=== PATIENT | female | born 1970 | race Caucasian/White ===

== ENCOUNTER → 2018-01-14 13:58 | Outpatient (CLI) | payer BC, SELFPAY ==
[2018-01-14 16:09] LABS: Valproic Acid (Depakene) Level 83 ug/mL (50-100)
== END ==
PROVIDERS: Family Provider Family Medicine; PCP Family Medicine
DX: F31.60 Bipolar disorder, current episode mixed, unspecified (principal)
CPT/HCPCS: 36415; 80164

== ENCOUNTER 2018-01-17 16:55 | Emergency (ER) | payer BC, SELFPAY ==
[2018-01-17 16:56] VITALS: BP 137/78; PULSE 87; RESP 18; TEMP 36.2; O2SAT 100; BMI 21.7
--- NOTE | 2018-01-17 17:12 | ED.DCSUM_ITS ---
- ER Visit Summary Date of Service: 01/17/18 Chief Complaint: Headache History of Present Illness: The patient is a 47 F who has had 2 days of a headache. She describes pain throughout her head. Similar to prior headaches. She does have a history of chronic headaches. She has had some nausea with some sinus pressure. She denies any trauma. No visual changes. She took diclofenac and Aleve at home without relief. She denies a fever. Physical Examination: Vital signs reviewed. HEENT exam unremarkable. Heart is regular rate and rhythm without murmurs. Lungs are clear to auscultation. Abdomen is soft and nontender. Extremities reveal no edema. Skin exam normal. Neurologic exam normal. Test Results: Patient was given Compazine, Benadryl and IV fluids. Upon reevaluation she feels much better. Patient will be discharged home with a prescription for Mucinex D to help with her sinuses. She will continue her home medications and will follow up with her PCP Emergency Department Course and Treatment: [] Treatment Plan: [] Disposition: Discharge Impression: Headache This note was generated with [employer] dictation software. It may contain incorrect words, spelling, and punctuation that were not noted in review of the chart prior to signing ED Disposition - Plan for ED Patient: Chief Complaint: Headache Referrals: Sumanth Bush MD [Primary Care Provider] -
[2018-01-17] MEDS: proCHLORPERazine 10 MG/2 ML Vial IV (17:24)
[2018-01-17] MEDS: DiphenhydrAMINE 50 MG/ML Syringe 25 MG IV (17:24)
[2018-01-17] MEDS: 0.9% Normal Saline 1,000 ML 999 ML IV (17:24)
--- NOTE | 2018-01-17 18:11 | ED.DEP ---
ED Disposition - Plan for ED Patient: Disposition: Home or Assisted Living Chief Complaint: Headache Instructions: ED Headache Migraine Prescriptions: Guaifenesin/Pseudoephedrne HCl [Mucinex D ER 1,200-120 mg Tab] 1 ea PO BID #14 [id number] Referrals: Sumanth Bush MD [Primary Care Provider] -
[2018-01-17 18:25] VITALS: BP 129/74; PULSE 71; RESP 15; O2SAT 100
== END 2018-01-17 18:27 | disposition home or self-care (01) ==
PROVIDERS: Emergency Provider Emergency Medicine; Family Provider Family Medicine; PCP Family Medicine
DX: R51 Headache (principal); G89.29 Other chronic pain; R11.0 Nausea; Z79.899 Other long term (current) drug therapy
CPT/HCPCS: 96361; 96374; 96375; 99283; J7030; A4216

== ENCOUNTER → 2018-08-03 10:49 | Outpatient (CLI) | payer BC, SELFPAY ==
--- NOTE | 2018-08-03 | BRBX_PTH ---
PATIENT: GISELA TURNER LOC: [facility] U#:[id number] AGE/SX: 55/F ROOM: RE08/03/[address]: Dr. Lizzy High MD : 1970 BED: DIS: SPEC #: [id number] RECD: 08/03/18 14:26 STATUS: PEG CANDIDA #: [id number] JOSAFAT: 08/03/18 00:[address]: Lizzy High DEPT: SURGICAL PATHOLOGY RECD BY: Prosper Quiles ENTERED: 08/03/18 14:27 SP TYPE: BREAST BX OT DR: Dr. Sumanth Bush MD Tissues: Right breast, NOS Procedures: Surgery Specimen Level IV HEADER OPERATION: Right breast stereotactic biopsy PRE-OP DIAGNOSIS: Right breast calcifications central to nipple post depth TISSUE SUBMITTED: Right breast core tissue ISCHEMIC TIME: 2 minutes FIXATION TIME: 7.5 hours MICROSCOPIC DIAGNOSIS Right breast, needle core biopsy: Mild fibrocystic change and focal secretory change. Focal intraductal hyperplasia without atypia. Banal microcalcifications. No evidence of malignancy. AM:mickey 08/04/18 COMMENT Case has been reviewed in consultation with Dr. Rivera who concurs with the above diagnosis. IDC:[email or web address] MICROSCOPIC DESCRIPTION Slides are reviewed. GROSS DESCRIPTION Received is one container labeled with the patient's name and not further designated. The specimen consists of multiple elongated fragments of silveira-yellow fibroadipose tissue that in aggregate measure 5 x 3 x 0.3 cm. The entire specimen is submitted in two cassettes. / RAIMUNDO:mickey 08/03/18 TC:5 CPT:94628
--- NOTE | 2018-08-03 13:54 | OP.PCM_ITS ---
Report of Operation Date of Procedure: 08/03/18 Pre-Operative Diagnosis: abnormal calcifications of right breast mammograms Post-Operative Diagnosis: same Surgery/Procedure Performed:: right stereotactic breast biopsy Description of Surgical Findings:: right breast abnormal calcifications - centrally Type of Anesthesia:: Local - 1% xylocaine Specimen's removed: right breast tissue Estimated Blood Loss (mL): minimal Fluids Replaced: none Description of Procedure: After informed consent was given, the patient was brought into the breast biopsy suite. Appropriate time out protocol was followed. She was then placed in the prone position on the stereotactic biopsy table. The patient?s right breast was then placed at the opening at the head of the table. A process control technician compression mammogram was then obtained. The area of abnormal calcifications was then identified. Stereo pictures of the lesion were then taken for XYZ coordinates. The Mammotome biopsy stylus was then positioned where it would be entering into the patient?s breast. The skin at this site was then cleansed with a surgical skin preparation. The skin and subcutaneous tissues at this site were then infiltrated with 1% xylocaine. A small skin incision was made with an 11 blade scalpel. The biopsy stylus was then positioned into the patient?s breast at the proper coordinates of depth. Using the Mammotome vacuum -assist device, several core samples of breast tissue were obtained. A specimen mammogram was the obtained and revealed that the calcifications were within the specimen. A hemostatic marker clip was then placed into the biopsy cavity and a process control technician film revealed that it was properly deployed. The patient was then placed in the supine position and pressure was applied to the breast until no active bleeding was noted. A nylon suture was placed reapproximate the skin. A unilateral mammogram in the CC and MLO view were then taken which revealed that the marker clip was in the same area as the previous suspicious lesion. The patient tolerated the procedure well and was discharged from the breast biopsy suite in good condition. - Complications none noted
== END ==
PROVIDERS: Family Provider Family Medicine; PCP Family Medicine; Visit Provider Surgery
DX: N60.11 Diffuse cystic mastopathy of right breast (principal); N60.91 Unspecified benign mammary dysplasia of right breast; F31.9 Bipolar disorder, unspecified; F32.9 Major depressive disorder, single episode, unspecified; G43.909 Migraine, unspecified, not intractable, without status migrainosus; Z87.19 Personal history of other diseases of the digestive system; Z90.49 Acquired absence of other specified parts of digestive tract; Z79.899 Other long term (current) drug therapy
CPT/HCPCS: 19081; 88305; J7050; A4648

== ENCOUNTER → 2018-08-21 13:09 | Outpatient (CLI) | payer BC, SELFPAY ==
[2018-08-21 14:36] LABS: Hematocrit 41.2 % (37-47); Hemoglobin 13.4 g/dl (12.0-15.0); Mean Corp Hgb Conc 32.5 g/gl (32-36); Mean Corpuscular Hgb 29.1 pg (27.0-32.0); Mean Corpuscular Volume 89.6 fL (81-99); Mean Platelet Vol. 8.8 fl (6.2-12.0); Platelet Count 245 K/mm3 (150-450); RBC Distribution Width CV 12.7 % (11.6-14.6); White Blood Count 4.9 K/mm3 (4.4-11.0)
[2018-08-21 14:38] LABS: Scan Indicated on CBC? Y/N NO
[2018-08-21 15:02] LABS: Valproic Acid (Depakene) Level 60 ug/mL (50-100)
[2018-08-21 15:13] LABS: ALB/GLOB Ratio 0.7 RATIO (0.9-2.4); AST(SGOT) 12 U/L (15-37); Alanine Aminotransfer ALT/SGPT 17 U/L (13-56); Albumin, Serum 3.3 g/dL (3.2-5.0); Alkaline Phosphatase 80 U/L (45-117); Anion Gap 6 (5-15); BUN 15 mg/dL (7-18); BUN/Creat Ratio 17.7 RATIO (10-20); Calcium,Total 8.2 mg/dL (8.5-10.1); Chloride 100 mmol/L (98-107); Cholesterol 221 mg/dL (200); Creatinine, Serum 0.85 mg/dL (0.55-1.02); EST Glomerular Filtration Rate 76 mL/min (>60); Est Glom Filt Rate - Afr Amer 92 mL/min (>60); Globulin 4.5 g/dL (2.2-4.2); Glucose 78 mg/dL (74-106); High Density Lipoprotein 96 mg/dL; Protein, Total 7.8 g/dL (6.4-8.2); Sodium Level 137 mmol/L (136-145); Thyroid Stim Hormone (TSH) 0.82 uIU/mL (0.358-3.74); Triglycerides 78 mg/dL; Very Low Density Lipoprotein 16 mg/dL (5-40)
== END ==
PROVIDERS: Family Provider Family Medicine; PCP Family Medicine
DX: R69 Illness, unspecified (principal)
CPT/HCPCS: 36415; 80053; 80061; 80164; 84443; 85027

== ENCOUNTER 2018-10-07 06:43 | Observation (INO) | payer BC, SELFPAY ==
[2018-10-07] VITALS (10 sets, daily range): BP systolic 118–131; BP diastolic 78–88; PULSE 81–98; RESP 11–17; TEMP 36.8–36.9; O2SAT 96–100; BMI 24.1; BMI 24.2
--- NOTE | 2018-10-07 07:35 | EKG12_ITS ---
Test Reason : DYSRHYTHMIA Blood Pressure : / mmHG Vent. Rate : 089 BPM Atrial Rate : 089 BPM P-R Int : 176 ms QRS Dur : 078 ms QT Int : 358 ms P-R-T Axes : 074 058 071 degrees QTc Int : 435 ms Normal sinus rhythm Normal ECG Confirmed by PIPE HERNÁNDEZ, RACHEL ([id number]), video effects editor TRENT VARELA ([id number]) on 10/09/2018 12:00:22 PM Referred By: DEIDRA Confirmed By:RACHEL BETANCUR MD
--- NOTE | 2018-10-07 07:35 | CT_ITS ---
STUDY: CT BRAIN WITHOUT CONTRAST REASON FOR EXAM: Female, 48 years old. Dizziness. RADIATION DOSAGE (If Supplied By Facility): CTDIvol = ( 44.99 ) mGy, DLP = ( 762.36 ) mGycm TECHNIQUE: Transaxial CT imaging of the brain was performed without administration of intravenous contrast material. Individualized dose optimization techniques were used for this CT. COMPARISON: None. FINDINGS: Normal soft tissue structures. Normal calvarium. Normal size ventricles and extra-axial spaces for the patient's age. Normal white matter tracts of the cerebral hemispheres. Normal basal ganglia and thalami. Normal brainstem. Normal cerebellum. There is no intracranial hemorrhage. There are no findings of an acute ischemic infarction. Normal visualized paranasal sinuses. CT/Brain/Head without Contrast IMPRESSION: Normal unenhanced CT scan of the brain. Electronically Signed: Rishi Hunt MD at 8:21 EST Tel [phone], Service support ,
--- NOTE | 2018-10-07 07:47 | ED.DCSUM_ITS ---
- ER Visit Summary Date of Service: 10/07/18 Chief Complaint: [] Dizzy shaking all over this morning History of Present Illness: The patient is a 48 F [] depression denies any other past history reports she went to bed feeling fine woke this morning feeling dizzy spinning sensation, shaking all over. She denies fever cough head neck chest or abdominal pain could not walk this morning because of the above and her carried her around the home and finally brought her to the hospital, she has no history of AR PE DVT, no history of stroke or seizure she denies headache, her mental functioning is normal her speech is normal she is able to move all 4 extremities but she does have a diffuse tremor involving all 4 extremities and she denies being cold she has no infectious symptoms, no dysuria no cough no runny nose EKG missed her Depakote the other day because she ran out of the prescription b ut took it yesterday none of her medications are new and otherwise her general health condition social condition has all been stable Physical Examination: [] Patient is 130/80, her temperature is 98, her pulse ox is 99, General, no distress resting comfortably HEENT is generally unremarkable but there is no nystagmus no signs of dehydration The neck is supple no adenopathy Cardiovascular, regular rate and rhythm Lungs, clear bilateral Abdomen, soft nontender Extremities, no clubbing cyanosis or edema Neurologic, awake alert answering questions appropriately moving all 4 e xtremities, she has a very low amplitude diffuse tremor to all 4 extremities her speech is easy and understandable the cranial nerves are intact she is able to move all 4 extremities, her NIH is 0 Test Results: [] Emergency Department Course and Treatment: [] Given all of the above screening labs CT Ativan Lab tests and CAT scans all other tests are generally unremarkable please see those reports on reevaluation she is feeling better, she still has the tremor primarily in her upper extremities but the reports that the patient reports that that is normal for her to have a slight tremor to the upper extremities, she is feeling better we discussed inpatient versus outpatient management she wants to go home, we try to walk her to the bathroom she could not even walk to the door of her room without being very dizzy and requiring quite a bit of support she is put back in bed by nursing Treatment Plan: [] Disposion hospitalist evaluation Impression: [] Dizziness with inability to walk, etiology unclear resting tremor This note was generated with Dragon dictation software. It may contain incorrect words, spelling, and punctuation that were not noted in review of the chart prior to signing ED Disposition - Plan for ED Patient: Chief Complaint: Dizziness Instructions: ED Dizziness [facility] Referrals: Sumanth Bush MD [Primary Care Provider] -
[2018-10-07] MEDS: LORazepam 2 MG/ML Syringe 1 MG IV (07:49)
[2018-10-07 07:55] LABS: Absolute Lymphocyte Count 2.43 X10^3/ul (0.83-4.51); Absolute Neutrophil Count 2.4 X10^3/uL (2.0-7.7); Basophil# 0.04 X10^3/uL; Basophil% 0.7 % (0-1); Eosinophil# 0.09 X10^3/uL; Eosinophils% 1.7 % (0-5); Hemoglobin 12.9 g/dl (12.0-15.0); Lymphocyte # 2.43 X10^3/ul (4.0); Lymphocyte % 44.9 % (19-41); Mean Corp Hgb Conc 33.1 g/gl (32-36); Mean Corpuscular Hgb 29.4 pg (27.0-32.0); Mean Corpuscular Volume 88.8 fL (81-99); Mean Platelet Vol. 8.7 fl (6.2-12.0); Monocyte# 0.49 X10^3/uL; Monocyte% 9.1 % (0-10); Neutrophil # 2.36 X10^3/uL (2.7-7.7); Neutrophil % 43.6 % (47-70); Platelet Count 233 K/mm3 (150-450); RBC Distribution Width CV 12.4 % (11.6-14.6); RBC Distribution Width SD 39.9 fl (35.1-43.9); Red Blood Count 4.39 M/mm3 (4.2-5.4); White Blood Count 5.4 K/mm3 (4.4-11.0)
[2018-10-07 08:00] LABS: POSITIVE COUNT NO; POSITIVE DIFFERENTIAL NO; POSITIVE MORPHOLOGY NO
[2018-10-07 08:03] LABS: ALB/GLOB Ratio 0.8 RATIO (0.9-2.4); AST(SGOT) 14 U/L (15-37); Alanine Aminotransfer ALT/SGPT 18 U/L (13-56); Albumin, Serum 3.1 g/dL (3.2-5.0); Alkaline Phosphatase 67 U/L (45-117); Anion Gap 10 (5-15); BUN 15 mg/dL (7-18); BUN/Creat Ratio 20.2 RATIO (10-20); Calcium,Total 8.3 mg/dL (8.5-10.1); Chloride 102 mmol/L (98-107); Creatinine, Serum 0.74 mg/dL (0.55-1.02); EST Glomerular Filtration Rate 89 mL/min (>60); Est Glom Filt Rate - Afr Amer 108 mL/min (>60); Estimated Creatinine Clearance 76.91 ml/min; Globulin 4.1 g/dL (2.2-4.2); Glucose 85 mg/dL (74-106); Potassium 4.1 mmol/L (3.5-5.1); Protein, Total 7.2 g/dL (6.4-8.2); Sodium Level 140 mmol/L (136-145)
[2018-10-07 08:11] LABS: Valproic Acid (Depakene) Level 61 ug/mL (50-100)
--- NOTE | 2018-10-07 08:15 | RAD_ITS ---
STUDY: X-RAY CHEST REASON FOR EXAM: Female, 48 years old. Shortness of breath. Dizziness. TECHNIQUE: Single AP portable view of the chest. COMPARISON: None. FINDINGS: EKG electrodes are seen. The lungs are clear and expanded. Scattered calcified granulomas. There is no demonstrated pleural abnormality. Normal size heart. Normal mediastinum and isela. Normal visualized pulmonary arteries. Normal visualized aortic arch and descending thoracic aorta. Normal visualized thoracic spine. Normal visualized ribs, clavicles, and shoulders. There is no demonstrated abnormality of the visualized soft tissue structures of the upper abdomen. RAD/Chest 1 View (Portable) IMPRESSION: Normal x-ray examination of the chest. Electronically Signed: Rishi Hunt MD at 8:42 EST Tel [phone], Service support ,
[2018-10-07 08:57] LABS: Bacteria 0 SEEN /hpf (None Seen); Mucous, Urine 0 SEEN /hpf (<or=2+); Red Blood Cells-Urine 0 SEEN /hpf (0-5); Squamous Epithelial Cells - UA 0 SEEN /hpf (5-10); White Blood Cells 0 SEEN /hpf (0-5)
[2018-10-07 08:58] LABS: Color, Urine Yellow (Yellow); Glucose, Dipstick Normal (Normal); Ketone-Dipstick Negative (Negative); Leukocyte Esterase-Dipstick Negative /ul (Negative); Nitrite-Dipstick Negative (Negative); Occult Blood-Urine Negative /ul (Negative); Protein-Dipstick Negative (Negative); Urine Bilirubin Dipstick Negative (Negative); Urine Clarity Clear (Clear); Urine Urobilinogen Normal (Normal)
--- NOTE | 2018-10-07 12:04 | ED.DEP ---
ED Disposition - Plan for ED Patient: Chief Complaint: Dizziness Instructions: ED Dizziness [facility] Referrals: Sumanth Bush MD [Primary Care Provider] -
--- NOTE | 2018-10-07 12:20 | MRI_ITS ---
STUDY: MRI BRAIN WITHOUT CONTRAST REASON FOR EXAM: Female, 48 years old. Headache and tremor TECHNIQUE: Standardized multiplanar fat and water weighted pulse sequences were obtained. COMPARISON: November 02, 2013. CT of the brain on October 07, 2018 FINDINGS: Normal size of the ventricles and extra-axial spaces for the patient's age. Normal white matter tracts of the supratentorial brain. Normal bilateral basal ganglia. Normal thalami. There is no extra-axial fluid accumulation. Normal flow voids within the major intracranial circulation suggesting patency by spin echo criteria. Normal sella turcica, pituitary gland, infundibular stalk, optic chiasm and hypothalamus. Normal tectal plate and pineal gland. Normal midbrain, zahra and medulla. Normal cerebellum. Normal basal cisterns. Normal bilateral temporal bones. Normal bilateral internal auditory canals. No demonstrated orbital abnormality, within the constraints of a routine brain study. Normal visualized paranasal sinuses. Normal calvarium and skull base. Normal visualized soft tissue structures. Normal visualized upper cervical spine. MRI/Brain without Contrast IMPRESSION: Normal unenhanced MRI of the brain. Electronically Signed: Julio Woods MD at 16:32 EST , Service support ,
--- NOTE | 2018-10-07 12:22 | CT_ITS ---
STUDY: CTA OF THE BRAIN REASON FOR EXAM: Female, 48 years old. TIA. Dizziness. Vertigo. Headache. RADIATION DOSAGE (If Supplied By Facility): CTDIvol = ( 17.24 ) mGy, DLP = ( 626.77 ) mGycm TECHNIQUE: CT angiography was performed with a multi-detector CT scanner. Data acquisition was obtained from the skull base through the vertex following intravenous administration of 100 ml of Isovue-370. MIP images were reconstructed from the axial data set. Post-processing of the angiographic images was performed, with multiplanar reformation and 3D reconstruction. Individualized dose optimization techniques were used for this CT. COMPARISON: Noncontrast CT scan of the same day.. FINDINGS: Normal bilateral petrous carotid arteries. Normal right cavernous carotid artery with a normal supraclinoid bifurcation. Normal left cavernous carotid artery with a normal supraclinoid bifurcation. Normal right A1 segments of the anterior cerebral artery. Normal left A1 segments of the anterior cerebral artery. Normal intact anterior communicating artery (ACOM). Normal bilateral A2 segments of the anterior cerebral arteries. Normal right M1 and M2 segments of the middle cerebral arteries, with a normal M1 bifurcation. Normal left M1 and M2 segments of the middle cerebral arteries, with a normal M1 bifurcation. Normal right posterior communicating artery (PCOM). Normal left posterior communicating artery (PCOM). Normal bilateral vertebral arteries. Normal basilar artery with a normal basilar bifurcation. The visualized bilateral superior cerebellar (SCA) arteries are normal. Normal bilateral P1, P2 and visualized P3 segments of the posterior cerebral arteries. There is no demonstrated aneurysm of the [place]. There is no demonstrated abnormality of the visualized brain. IMPRESSION: Normal [place] without a demonstrated aneurysm or hemodynamically significant stenosis. Electronically Signed: Karri Velasco MD at 15:45 EST , Service support , STUDY: CTA NECK WITH CONTRAST REASON FOR EXAM: Female, 48 years old. Severe dizziness and vertigo. Headache. RADIATION DOSAGE (If Supplied By Facility): CTDIvol = ( 17.24 ) mGy, DLP = ( 626.77 ) mGycm TECHNIQUE: CT angiography with multi-detector data acquisition was performed from the aortic arch to the skull base following intravenous administration of 100mL ml of Isovue 370 contrast. MIP images were reconstructed from the axial data set. Post-processing of the angiographic images was performed, with multiplanar reformation and 3D reconstruction. Individualized dose optimization techniques were used for this CT. COMPARISON: None. FINDINGS: AORTIC ARCH: Normal visualized aortic arch. Normal origins of the brachiocephalic, left common carotid, and left subclavian arteries. RIGHT CAROTID ARTERIES: Normal right common carotid artery (CCA). Normal right common carotid bulb. Normal origin of the right internal carotid (ICA) artery without a hemodynamically significant stenosis. Normal visualized cervical portion of the right internal carotid artery. Normal origin of the right external carotid artery (ECA). LEFT CAROTID ARTERIES: Normal left common carotid artery (CCA). Normal left common carotid bulb. Normal origin of the left internal carotid (ICA) artery without a hemodynamically significant stenosis. Normal visualized cervical portion of the left internal carotid artery. Normal origin of the left external carotid artery (ECA). VERTEBRAL ARTERIES: Normal bilateral vertebral arteries. CT/CTA Head W/WO Contrast IMPRESSION: Normal bilateral cervical carotid and vertebral arteries. Electronically Signed: Karri Velasco MD at 15:47 EST , Service support ,
--- NOTE | 2018-10-07 12:22 | ECHOD_ITS ---
Reason For Study: TIA/CVA Procedure This was a 2D Doppler, Color Flow transthoracic echocardiogram. Exam performed portable in patient room. Left Ventricle Normal LV size. Left ventricular systolic function is normal. The estimated ejection fraction is 60 %. No evidence for diastolic dysfunction. No regional wall motion abnormalities noted. Right Ventricle Normal RV size. Normal systolic function. Atria Normal left atrium. Normal right atrium. Bubble contrast study negative for right to left interatrial shunt. Mitral Valve Normal mitral valve. Trivial eccentric mitral valve insufficiency. Tricuspid Valve Normal tricuspid valve. Mild (1+) tricuspid valve insufficiency. Aortic Valve Normal aortic valve. Trisinus/trileaflet aortic valve. Pulmonic Valve The pulmonic valve is not well visualized. Great Vessels Normal aortic root. The pulmonary artery is normal size. Normal inferior vena cava. Pericardium/Pleural No pericardial effusion. Medication Performed a rapid injection of agitated mix of 9 cc saline and 1cc air to assess for atrial septal defect. MMode/2D Measurements & Calculations LVIDd: 3.9 cm IVSd: 0.88 cm Ao root diam: 3.1 cm LVIDs: 2.2 cm LVPWd: 0.67 cm LA dimension: 2.8 cm RVDd: 2.8 cm FS: 43.3 % LAV(MOD-sp4): 31.4 ml LA A4 area: 13.1 cm2 RA A4 area: 8.8 cm2 Time Measurements MV dec time: 0.13 sec Doppler Measurements & Calculations MV E max peter: 84.1 cm/sec Lat Peak E' Peter: 14.3 cm/sec Med Peak E' Peter: 10.2 cm/sec MV A max peter: 64.7 cm/sec E/E' lat: 5.9 E/E' med: 8.2 MV E/A: 1.3 MV V2 max: 100.3 cm/sec MV P1/2t max peter: 99.7 cm/sec Ao V2 max: 105.0 cm/sec MV max P.0 mmHg MV P1/2t: 64.7 msec Ao max P.4 mmHg MV V2 mean: 56.6 cm/sec MV dec slope: 451.3 cm/sec2 Ao V2 mean: 69.0 cm/sec MV mean P.5 mmHg Ao mean P.2 mmHg MV V2 VTI: 20.6 cm MVA(P1/2t): 3.4 cm2 Ao V2 VTI: 20.6 cm LV V1 max: 103.5 cm/sec PA V2 max: 72.2 cm/sec TR max peter: 219.7 cm/sec LV V1 max P.3 mmHg TR max P.3 mmHg LV V1 mean P.0 mmHg LV V1 mean: 65.4 cm/sec LV V1 VTI: 21.1 cm Interpretation Summary Normal LV size. Left ventricular systolic function is normal. The estimated ejection fraction is 60 %. No evidence for diastolic dysfunction. Trivial eccentric mitral valve insufficiency. Mild (1+) tricuspid valve insufficiency. Bubble contrast study negative for right to left interatrial shunt. Ordering Physician: Miles Adhikari Referring Physician: Sumanth Bush Performed By: Silvano Jones RCS
--- NOTE | 2018-10-07 12:22 | CT_ITS ---
STUDY: CTA OF THE BRAIN REASON FOR EXAM: Female, 48 years old. TIA. Dizziness. Vertigo. Headache. RADIATION DOSAGE (If Supplied By Facility): CTDIvol = ( 17.24 ) mGy, DLP = ( 626.77 ) mGycm TECHNIQUE: CT angiography was performed with a multi-detector CT scanner. Data acquisition was obtained from the skull base through the vertex following intravenous administration of 100 ml of Isovue-370. MIP images were reconstructed from the axial data set. Post-processing of the angiographic images was performed, with multiplanar reformation and 3D reconstruction. Individualized dose optimization techniques were used for this CT. COMPARISON: Noncontrast CT scan of the same day.. FINDINGS: Normal bilateral petrous carotid arteries. Normal right cavernous carotid artery with a normal supraclinoid bifurcation. Normal left cavernous carotid artery with a normal supraclinoid bifurcation. Normal right A1 segments of the anterior cerebral artery. Normal left A1 segments of the anterior cerebral artery. Normal intact anterior communicating artery (ACOM). Normal bilateral A2 segments of the anterior cerebral arteries. Normal right M1 and M2 segments of the middle cerebral arteries, with a normal M1 bifurcation. Normal left M1 and M2 segments of the middle cerebral arteries, with a normal M1 bifurcation. Normal right posterior communicating artery (PCOM). Normal left posterior communicating artery (PCOM). Normal bilateral vertebral arteries. Normal basilar artery with a normal basilar bifurcation. The visualized bilateral superior cerebellar (SCA) arteries are normal. Normal bilateral P1, P2 and visualized P3 segments of the posterior cerebral arteries. There is no demonstrated aneurysm of the [place]. There is no demonstrated abnormality of the visualized brain. IMPRESSION: Normal [place] without a demonstrated aneurysm or hemodynamically significant stenosis. Electronically Signed: Karri Velasco MD at 15:45 EST , Service support , STUDY: CTA NECK WITH CONTRAST REASON FOR EXAM: Female, 48 years old. Severe dizziness and vertigo. Headache. RADIATION DOSAGE (If Supplied By Facility): CTDIvol = ( 17.24 ) mGy, DLP = ( 626.77 ) mGycm TECHNIQUE: CT angiography with multi-detector data acquisition was performed from the aortic arch to the skull base following intravenous administration of 100mL ml of Isovue 370 contrast. MIP images were reconstructed from the axial data set. Post-processing of the angiographic images was performed, with multiplanar reformation and 3D reconstruction. Individualized dose optimization techniques were used for this CT. COMPARISON: None. FINDINGS: AORTIC ARCH: Normal visualized aortic arch. Normal origins of the brachiocephalic, left common carotid, and left subclavian arteries. RIGHT CAROTID ARTERIES: Normal right common carotid artery (CCA). Normal right common carotid bulb. Normal origin of the right internal carotid (ICA) artery without a hemodynamically significant stenosis. Normal visualized cervical portion of the right internal carotid artery. Normal origin of the right external carotid artery (ECA). LEFT CAROTID ARTERIES: Normal left common carotid artery (CCA). Normal left common carotid bulb. Normal origin of the left internal carotid (ICA) artery without a hemodynamically significant stenosis. Normal visualized cervical portion of the left internal carotid artery. Normal origin of the left external carotid artery (ECA). VERTEBRAL ARTERIES: Normal bilateral vertebral arteries. CT/CTA Neck W/WO Contrast IMPRESSION: Normal bilateral cervical carotid and vertebral arteries. Electronically Signed: Karri Velasco MD at 15:47 EST , Service support ,
--- NOTE | 2018-10-07 12:41 | HP.PCM_ITS ---
Problem List (1) Vertigo Status: Acute (2) Bipolar disease, chronic Status: Chronic (3) Anxiety Status: Chronic History of Present Illness Date of Admission: 10/07/18 Chief Complaint: Dizziness The patient is a 48 year old F with past medical history significant for severe depression, bipolar disorder anxiety disorder on a bunch of psychotropic medications who presented with dizziness. Patient states her symptoms started on the morning of her presentation. She woke up feeling wobbly could hardly ambulate. Per patient caught her from falling. She subsequently pres ented to the emergency department. Patient underwent subsequent workup including CT of the head which was unremarkable. Had Depakote levels were within therapeutic range. An attempt was made to ambulate patient in the ED anticipation of patient being discharged home however she could hardly ambulate. Decision was therefore made to admit patient to a monitored bed for subsequent inpatient evaluation. Past Medical History Past Medical History (Chronic Problems): Chronic Problems Bipolar disease, chronic (Chronic) Anxiety (Chronic) Allergies amoxicillin [Amoxicillin] Allergy (Verified 01/17/18 16:56) Hives sulfamethoxazole [From Septra] Allergy (Verified 01/17/18 16:56) Rash trimethoprim [From Septra] Allergy (Verified 01/17/18 16:56) Rash diphenhydramine [From Benadryl] Adverse Reaction (Verified 10/07/18 06:49) Other olanzapine [From Zyprexa] Adverse Reaction (Verified 01/17/18 16:56) Unknown oxcarbazepine [From Trileptal] Adverse Reaction (Verified 01/17/18 16:56) Unknown zolmitriptan [From Zomig] Adverse Reaction (Verified 01/17/18 16:56) Unknown AVALOX Adverse Reaction (Uncoded 01/17/18 16:56) Unknown Home Medications: Ambulatory Orders Medication Instructions Recorded Allergy Shots 2 IM QWEEK 08/25/13 Desog-E.estradiol/E.estradiol 1 each PO DAILY 08/25/13 [Azurette 28 Day Tablet] Desvenlafaxine Succinate [Pristiq] 50 mg PO DAILY 08/25/13 Divalproex Sodium [Depakote] 750 mg PO QHS 08/25/13 Lamotrigine [Lamictal] 200 mg PO QHS 08/25/13 Lansoprazole [Prevacid] 30 mg PO DAILY 08/25/13 buPROPion tablets [Wellbutrin 100 mg PO DAILY 08/25/13 tablets] traZODone [Desyrel] 25 mg PO QHS 08/25/13 Seroquel PO QHS 10/07/18 Smoking Status: Never smoker - *Family History Maternal History Items: Stroke - of stroke at age 67 Review of Systems Constitutional: Denies: Anorexia, Chills, Fever, Night Sweats, Weight Change HEENT: Denies: Head Aches, Sinus Congestion, Sinus Drainage Cardiovascular: Denies: Chest Pain, Orthopnea, Palpitations, Paroxysmal Noc. Dyspnea Respiratory: Denies: Cough, Shortness of breath at rest, Shortness of breath upon exertion, Sputum production Gastrointestinal: Denies: Abdominal Pain, Hematemesis, Hematochezia, Nausea, Melena, Vomiting Genitourinary: Denies: Dysuria, Frequency, Hematuria, Urgency Musculoskeletal: Denies: Joint Pain, Joint Tenderness Skin: Denies: Rash Neurological: Reports: Balance problems, Incoordination, Tremor. Denies: Focal weakness, Numbness, Tingling Psychiatric: Denies: Homicidal Ideations, Suicidal Ideations Hematologic/ Lymphatic: Denies: Easy Bruising, Easy Bleeding VTE Information - Inpt Only VTE Present on Admission: No VTE Mechan Device Prophylaxis: Knee High HILLARY Hose VTE Pharm Prophylaxis ordered?: Yes Patient Problems: Active and Suspected Problems Vertigo (Acute) Objective: GENERAL: cooperative HEENT: Atraumatic; moist oral mucosa EYES; Anicteric, Normal Conjunctiva NECK; supple, normal thyroid, no distended JVD. RESPIRATORY: Diminished to auscultation bilaterally, CARDIOVASCULAR: Regular S1 S2, no audible murmurs GI: soft, non-tender, normoactive bowel sounds, : No Renal angle tenderness; EXTREMITIES: No edema, no clubbing, no cyanosis. MUSCULOSKELETAL: No Joint Tenderness; no muscle waisting NEURO: Awake; no lateralizing signs. SKIN: No Rash PSYCH; Normal affect - Physical Exam Vital Signs Temp Pulse Resp BP Pulse Ox 98.3 F 88 11 L 118/84 H 99 10/07/18 06:46 10/07/18 12:18 10/07/18 12:18 10/07/18 12:18 10/07/18 12:18 Oxygen Delivery Method Room Air Weight: 61.9 kg Body Mass Index (BMI) 24.1 Laboratory Tests Past 24 Hrs 10/07/18 10/07/18 10/07/18 06:55 06:55 06:55 WBC 5.4 RBC 4.39 Hgb 12.9 Hct 39.0 MCV 88.8 MCH 29.4 MCHC 33.1 RDW 12.4 RDW Differential 39.9 Plt Count 233 MPV 8.7 Immature Gran % (Auto) 0.000 Neut % (Auto) 43.6 L Lymph % (Auto) 44.9 H [place] % (Auto) 9.1 Eos % (Auto) 1.7 Baso % (Auto) 0.7 Absolute Neuts (auto) 2.4 Absolute Lymphs (auto) 2.43 Total Counted Not Reportable Sodium 140 Potassium 4.1 Chloride 102 Carbon Dioxide 28.0 Anion Gap 10 BUN 15 Creatinine 0.74 Estim Creat Clear Calc 76.91 Est GFR (MDRD) Af Amer 108 Est GFR (MDRD) Non-Af 89 BUN/Creatinine Ratio 20.2 H Glucose 85 Calcium 8.3 L Total Bilirubin 0.30 AST 14 L ALT 18 Alkaline Phosphatase 67 Total Protein 7.2 Albumin 3.1 L Globulin 4.1 Albumin/Globulin Ratio 0.8 L Urine Color Urine Clarity Urine pH Ur Specific [place] Urine Protein Urine Glucose (UA) Urine Ketones Urine Occult Blood Urine Nitrite Urine Bilirubin Urine Urobilinogen Ur Leukocyte Esterase Urine RBC Urine WBC Ur Squamous Epith Cells Urine Bacteria Urine Mucus Valproic Acid 61 10/07/18 08:53 WBC RBC Hgb Hct MCV MCH MCHC RDW RDW Differential Plt Count MPV Immature Gran % (Auto) Neut % (Auto) Lymph % (Auto) [place] % (Auto) Eos % (Auto) Baso % (Auto) Absolute Neuts (auto) Absolute Lymphs (auto) Total Counted Sodium Potassium Chloride Carbon Dioxide Anion Gap BUN Creatinine Estim Creat Clear Calc Est GFR (MDRD) Af Amer Est GFR (MDRD) Non-Af BUN/Creatinine Ratio Glucose Calcium Total Bilirubin AST ALT Alkaline Phosphatase Total Protein Albumin Globulin Albumin/Globulin Ratio Urine Color Yellow Urine Clarity Clear Urine pH 7.0 Ur Specific [place] 1.010 Urine Protein Negative Urine Glucose (UA) Normal Urine Ketones Negative Urine Occult Blood Negative Urine Nitrite Negative Urine Bilirubin Negative Urine Urobilinogen Normal Ur Leukocyte Esterase Negative Urine RBC 0 SEEN Urine WBC 0 SEEN Ur Squamous Epith Cells 0 SEEN Urine Bacteria 0 SEEN Urine Mucus 0 SEEN Valproic Acid Assessment/Plan All Active Problems Vertigo (Acute) Patient is a 48-year-old lady presented with vertigo 1. Acute vertigo do suspect possible side effect from patient multiple psychotropic medications. Patient has however been admitted to a monitored bed where she is undergoing subsequent evaluation. Ordered MRI of the brain to rule out posterior seclusion CVA. Also requested for CTA of the head and neck as well as a 2D echo. Consult was also placed to neurology as well as physical and outpatient therapy 2. Severe depression did continue patient antidepressant after verification by pharmacy 3. Bipolar disorder 4. Severe anxiety 5. Tremors at rest attributed to patient psychotropic medication 6. DVT prophylaxis SC Lovenox Code Visit OBSV E&M: 44238 Initial observation care L3
[2018-10-07 13:31] LABS: Alcohol, Blood (Medical)-Serum < 3.0 mg/dL
--- NOTE | 2018-10-07 14:00 | CON.PCM_ITS ---
Problem List (1) Vertigo Status: Acute Reason for Consult Date of Consultation: 10/07/18 Reason for Consultation: Dizziness History of Present Illness: The patient is a 48 year old CF with PMH Multiple psychiatry issues, anxiety, bipolar d/o, Migraine admitted with dizziness. Per patient she had acute onset of dizziness this morning when she woke up, felt the whole room was spinning, had difficulty in walking, and was nauseous, denies any focal motor weakness or sensory loss, denies any visual disturbances, or speech disturbances. She complaints of BELLO, has h/o migraines which occurs about once a month, takes NSAIDS as needed for the same which helps per patient, had tried Imitrex in the past without much benefit per patient, with her migraine HAs complaints of photophobia, phonophobia, BELLO would last few hours. Denies having more than 2-3 days of migraine HAs per month. Patient is on Depakote, Lamictal, Wellbutrin, Pristiq, Seroquel and trazodone. Patient has been on multiple psychiatry medication for many years, is jittery and has tremors more on action. Denies any h/o seizures. Denies any new onset neck pain/low back pain or radicular symptoms, or urinary retention/incontinence. [] Past Medical History Past Medical History (Chronic Problems): Chronic Problems Bipolar disease, chronic (Chronic) Anxiety (Chronic) Allergies amoxicillin [Amoxicillin] Allergy (Verified 01/17/18 16:56) Hives sulfamethoxazole [From Septra] Allergy (Verified 01/17/18 16:56) Rash trimethoprim [From Septra] Allergy (Verified 01/17/18 16:56) Rash diphenhydramine [From Benadryl] Adverse Reaction (Verified 10/07/18 06:49) Other olanzapine [From Zyprexa] Adverse Reaction (Verified 01/17/18 16:56) Unknown oxcarbazepine [From Trileptal] Adverse Reaction (Verified 01/17/18 16:56) Unknown zolmitriptan [From Zomig] Adverse Reaction (Verified 01/17/18 16:56) Unknown AVALOX Adverse Reaction (Uncoded 01/17/18 16:56) Unknown Home Medications: Ambulatory Orders Medication Instructions Recorded Allergy Shots 2 IM QWEEK 08/25/13 Desog-E.estradiol/E.estradiol 1 each PO DAILY 08/25/13 [Azurette 28 Day Tablet] Desvenlafaxine Succinate [Pristiq] 50 mg PO DAILY 08/25/13 Divalproex Sodium [Depakote] 750 mg PO QHS 08/25/13 Lamotrigine [Lamictal] 200 mg PO QHS 08/25/13 Lansoprazole [Prevacid] 30 mg PO DAILY 08/25/13 buPROPion tablets [Wellbutrin 100 mg PO DAILY 08/25/13 tablets] traZODone [Desyrel] 25 mg PO QHS 08/25/13 Seroquel PO QHS 10/07/18 Lives: Spouse/ Significant Other Smoking Status: Never smoker Alcohol: None Drugs: None - *Family History Maternal History Items: Stroke - of stroke at age 67 Review of Systems Constitutional: Reports: - - complete ROS negative except as documented in HPI Patient Problems: Active and Suspected Problems Vertigo (Acute) - Physical Exam General: Alert HEENT: Normocephalic Neck: Supple Lungs: Normal air movement Cardiovascular: Normal S1, Normal S2 Abdomen: Bowel Sounds Present Extremities: No cyanosis Neurological: - - consious, alert, AoAx3, CN 2-12 grossly intact, no nystagmus, power 5/5 all 4 extremities, no sesnory loss, no cerebellar signs, has intention tremors bilateral UE on examination, normal tone all 4 extremities, Reflexes ++ B/L B/S/T/K/A, gait deferred. No NR or tenderness Psych/Mental Status: Normal Affect Vital Signs Temp Pulse Resp BP Pulse Ox 98.3 F 81 11 L 118/84 H 99 10/07/18 06:46 10/07/18 13:18 10/07/18 12:18 10/07/18 12:18 10/07/18 12:18 Oxygen Delivery Method Room Air Weight: 61.9 kg Body Mass Index (BMI) 24.1 Laboratory Tests Past 24 Hrs 10/07/18 10/07/18 10/07/18 06:55 06:55 06:55 WBC 5.4 RBC 4.39 Hgb 12.9 Hct 39.0 MCV 88.8 MCH 29.4 MCHC 33.1 RDW 12.4 RDW Differential 39.9 Plt Count 233 MPV 8.7 Immature Gran % (Auto) 0.000 Neut % (Auto) 43.6 L Lymph % (Auto) 44.9 H [place] % (Auto) 9.1 Eos % (Auto) 1.7 Baso % (Auto) 0.7 Absolute Neuts (auto) 2.4 Absolute Lymphs (auto) 2.43 Total Counted Not Reportable Sodium 140 Potassium 4.1 Chloride 102 Carbon Dioxide 28.0 Anion Gap 10 BUN 15 Creatinine 0.74 Estim Creat Clear Calc 76.91 Est GFR (MDRD) Af Amer 108 Est GFR (MDRD) Non-Af 89 BUN/Creatinine Ratio 20.2 H Glucose 85 Calcium 8.3 L Total Bilirubin 0.30 AST 14 L ALT 18 Alkaline Phosphatase 67 Total Protein 7.2 Albumin 3.1 L Globulin 4.1 Albumin/Globulin Ratio 0.8 L Urine Color Urine Clarity Urine pH Ur Specific [place] Urine Protein Urine Glucose (UA) Urine Ketones Urine Occult Blood Urine Nitrite Urine Bilirubin Urine Urobilinogen Ur Leukocyte Esterase Urine RBC Urine WBC Ur Squamous Epith Cells Urine Bacteria Urine Mucus Valproic Acid 61 Ethyl Alcohol 10/07/18 10/07/18 06:55 08:53 WBC RBC Hgb Hct MCV MCH MCHC RDW RDW Differential Plt Count MPV Immature Gran % (Auto) Neut % (Auto) Lymph % (Auto) [place] % (Auto) Eos % (Auto) Baso % (Auto) Absolute Neuts (auto) Absolute Lymphs (auto) Total Counted Sodium Potassium Chloride Carbon Dioxide Anion Gap BUN Creatinine Estim Creat Clear Calc Est GFR (MDRD) Af Amer Est GFR (MDRD) Non-Af BUN/Creatinine Ratio Glucose Calcium Total Bilirubin AST ALT Alkaline Phosphatase Total Protein Albumin Globulin Albumin/Globulin Ratio Urine Color Yellow Urine Clarity Clear Urine pH 7.0 Ur Specific [place] 1.010 Urine Protein Negative Urine Glucose (UA) Normal Urine Ketones Negative Urine Occult Blood Negative Urine Nitrite Negative Urine Bilirubin Negative Urine Urobilinogen Normal Ur Leukocyte Esterase Negative Urine RBC 0 SEEN Urine WBC 0 SEEN Ur Squamous Epith Cells 0 SEEN Urine Bacteria 0 SEEN Urine Mucus 0 SEEN Valproic Acid Ethyl Alcohol < 3.0 Assessment/Plan All Active Problems Vertigo (Acute) The patient is a 48 year old CF with PMH Multiple psychiatry issues, anxiety, bipolar d/o, Migraine admitted with dizziness. Per patient she had acute onset of dizziness this morning when she woke up, felt the whole room was spinning, had difficulty in walking, and was nauseous, denies any focal motor weakness or sensory loss, denies any visual disturbances, or speech disturbances. She complaints of BELLO, has h/o migraines which occurs about once a month, takes NSAIDS as needed for the same which helps per patient, had tried Imitrex in the past without much benefit per patient, with her migraine HAs complaints of photophobia, phonophobia, BELLO would last few hours. Denies having more than 2-3 days of migraine HAs per month. Patient is on Depakote, Lamictal, Wellbutrin, Pristiq, Seroquel and trazodone. Patient has been on multiple psychiatry medication for many years, is jittery and has tremors more on action. Denies any h/o seizures. Denies any new onset neck pain/low back pain or radicular symptoms, or urinary retention/incontinence. Impression Dizziness- Likely peripheral etiology Polypharmacy Plan -Check MRI brain, CTA head/neck -Wean off Depakote ER to 500 mg PO q hs for 5 days, then decrease to 250 mg PO q hs for 5 days then stop. -Valproate level 61. -Change Lamictal to 100 mg PO BID. Currently per patient she is on Lamictal 200 mg daily and Depakote ER 750 mg PO q hs and has intentional tremors. -Vestibular therapy and ENT consult -Labs reviewed, LFTs -reviewed -Check CK total and Ammonia level -Patient counseled to consult with her psychiatrist to try and wean off the multiple psychiatry medications she is on. -Magnesium sulphate 1 g IV once and Toradol 15 mg IV q 6 hrly PRN BELLO -Patient counseled to avoid narcotics and avoid frequent NSAIDs use for BELLO -Meclizine 12.5 mg PO q 8 hrly PRN dizziness -Fall precautions -GI/DVT prophylaxis -PT/OT -Follow up with ENT/Psychiatrist [facility] -Please call with questions if any -Thank you for allowing us to participate in patient's care and management. Code Visit Inpatient E&M: 74489 Init Hosp L3
[2018-10-07] MEDS: Acetaminophen 325 MG Tablet 650 MG PO (16:41)
[2018-10-07] MEDS: Pantoprazole Sodium 40 MG Tablet PO ×3 (16:42→16:45)
[2018-10-07] MEDS: Enoxaparin 40 MG/0.4 ML Syringe SC (16:45)
[2018-10-07] MEDS: Venlafaxine XR 37.5 MG Capsule PO (16:45)
[2018-10-07] MEDS: buPROPion (SR) 100 MG TABLET.SA PO (16:45)
[2018-10-07 19:50] LABS: Amphetamine Urine VISTA NEGATIVE (<1000 ng/mL); Barbiturate Urine VISTA NEGATIVE (< 200 ng/mL); Benzodiazepine Urine VISTA NEGATIVE (< 200 ng/mL); Cocaine Urine VISTA NEGATIVE (< 300 ng/mL); Ecstacy Urine VISTA NEGATIVE (< 500 ng/mL); Methadone Urine VISTA NEGATIVE (< 300 ng/mL); PCP Urine VISTA NEGATIVE (< 25 ng/mL); THC Urine VISTA NEGATIVE (< 50 ng/mL); Vista UDS pH Range 6
[2018-10-07 19:57] LABS: CPK Total, Creatine Kinase 81 U/L (26-192)
[2018-10-07] MEDS: proMETHazine 25 MG/ML Syringe 12.5 MG IM (21:44)
[2018-10-07] MEDS: lamoTRIgine 100 MG Tablet 200 MG PO (21:45)
[2018-10-07] MEDS: traZODone 50 MG Tablet 25 MG PO (21:45)
[2018-10-07] MEDS: Divalproex (ER) 500 MG Tablet PO (21:47)
[2018-10-07] MEDS: Ketorolac 30 MG/ML Syringe IV (22:45)
[2018-10-07] MEDS: 0.9% NaCl Peripheral Flush Adult/Peds IV (22:45)
[2018-10-07] MEDS: QUEtiapine 25 MG Tablet PO (22:45)
[2018-10-08] VITALS (8 sets, daily range): BP systolic 102–118; BP diastolic 64–78; PULSE 74–88; RESP 16–18; TEMP 36.4–37.1; O2SAT 96–100
[2018-10-08 07:12] LABS: Anion Gap 7 (5-15); BUN 16 mg/dL (7-18); BUN/Creat Ratio 20.6 RATIO (10-20); Calcium,Total 8.1 mg/dL (8.5-10.1); Chloride 101 mmol/L (98-107); Cholesterol 211 mg/dL (200); Creatinine, Serum 0.78 mg/dL (0.55-1.02); EST Glomerular Filtration Rate 84 mL/min (>60); Est Glom Filt Rate - Afr Amer 102 mL/min (>60); Estimated Creatinine Clearance 69.76 ml/min; Glucose 77 mg/dL (74-106); High Density Lipoprotein 93 mg/dL; Potassium 4.1 mmol/L (3.5-5.1); Sodium Level 137 mmol/L (136-145); Triglycerides 87 mg/dL; Very Low Density Lipoprotein 17 mg/dL (5-40)
--- NOTE | 2018-10-08 09:22 | DCINST_ITS ---
- Discharge Diagnoses Current Active Problems: Current Active and Chronic Problems Vertigo (Acute) Bipolar disease, chronic (Chronic) Anxiety (Chronic) You will use the following diet at home:: No restrictions Discharge Activity: May not drive while taking narcotic pain medications. Instructions: ED Dizziness UKO Allergies/Adverse Reactions: Allergies amoxicillin [Amoxicillin] Allergy (Verified 01/17/18 16:56) Hives sulfamethoxazole [From Septra] Allergy (Verified 01/17/18 16:56) Rash trimethoprim [From Septra] Allergy (Verified 01/17/18 16:56) Rash diphenhydramine [From Benadryl] Adverse Reaction (Verified 10/07/18 06:49) Other olanzapine [From Zyprexa] Adverse Reaction (Verified 01/17/18 16:56) Unknown oxcarbazepine [From Trileptal] Adverse Reaction (Verified 01/17/18 16:56) Unknown zolmitriptan [From Zomig] Adverse Reaction (Verified 01/17/18 16:56) Unknown AVALOX Adverse Reaction (Uncoded 01/17/18 16:56) Unknown Medications to take at Discharge Allergy Shots 2 IM QWEEK 08/25/13 Desog-E.estradiol/E.estradiol [Azurette 28 Day Tablet] 2 mg PO DAILY 08/25/13 Desvenlafaxine Succinate [Pristiq] 50 mg PO DAILY 08/25/13 Divalproex Sodium [Depakote] 750 mg PO QHS 08/25/13 Lansoprazole [Prevacid] 30 mg PO DAILY 08/25/13 buPROPion tablets [Wellbutrin tablets] 100 mg PO DAILY 08/25/13 traZODone [Desyrel] 25 mg PO QHS 08/25/13 Quetiapine Fumarate [Seroquel] 25 mg PO DAILY 10/07/18 proMETHazine tablet [Phenergan tablet] 25 mg PO Q4H PRN PRN 10/07/18 Lamotrigine [Lamictal] 100 mg PO BID #60 tablet 10/08/18 Meclizine HCl [Antivert] 25 mg PO TID PRN PRN #30 tablet 10/08/18 The following prescriptions were given: Lamotrigine [Lamictal] 100 mg PO BID #60 tablet Meclizine HCl [Antivert] 25 mg PO TID PRN PRN #30 tablet PRN Reason: Dizziness Primary Care Physician: Sumanth Bush MD [Primary Care Provider] - Please follow up with your Primary Care Physician in: [place] 5-7 DAYS Test Results: Test results from this visit will be discussed in further detail at your follow- up appointment, if applicable. Proposed Discharge Date: 10/08/18
--- NOTE | 2018-10-08 09:22 | PCM.DC.SUM ---
Discharge Date and Diagnosis - Problem List Patient Problems: Active and Suspected Problems Vertigo (Acute) Date of Admission: 10/07/18 Date of Discharge: 10/08/18 - Primary Discharge Diagnosis Active and Suspected Problems Vertigo (Acute) - Secondary Discharge Diagnosis Chronic Problems Bipolar disease, chronic (Chronic) Anxiety (Chronic) Hospital Course and Treatment Imaging Results: Clinical Impression(s) from Imaging Studies Brain CT 10/07/18 07:35 IMPRESSION: Normal unenhanced CT scan of the brain. Electronically Signed: Rishi Hunt MD at 8:21 EST Tel [phone], Service support , Chest X-Ray 10/07/18 08:15 IMPRESSION: Normal x-ray examination of the chest. Electronically Signed: Rishi Hunt MD at 8:42 EST Tel [phone], Service support , Brain MRI 10/07/18 12:20 IMPRESSION: Normal unenhanced MRI of the brain. Electronically Signed: Julio Woods MD at 16:32 EST , Service support , Head CTA 10/07/18 12:22 IMPRESSION: Normal bilateral cervical carotid and vertebral arteries. Electronically Signed: Karri Velasco MD at 15:47 EST , Service support , Summary of Care Provided: Patient is a 48-year-old lady presented with vertigo 1. Acute vertigo do suspect possible side effect from patient multiple psychotropic medications. Patient has however been admitted to a monitored bed where she is undergoing subsequent evaluation. Ordered MRI of the brain to rule out posterior seclusion CVA. Also requested for CTA of the head and neck as well as a 2D echo. Consult was also placed to neurology as well as physical and outpatient therapy. Patient imaging studies was negative for acute CVA. Patient was seen in consultation by Dr. Ray with neurology who recommended adjusting the dose of her Lamictal from 200 mg daily 200 mill grams p.o. twice daily. He also recommended for patient to be discharged home on meclizine 25 mg p.o. 3 times daily every 8 hours as needed for vertigo/dizziness. Patient was also instructed to follow-up with her psychiatrist as soon as possible 2. Severe depression did continue patient antidepressantS after verification by pharmacy 3. Bipolar disorder 4. Severe anxiety 5. Tremors at rest attributed to patient psychotropic medication 6. DVT prophylaxis SC Lovenox Patient Problems: Active and Suspected Problems Vertigo (Acute) Subjective: GENERAL: cooperative HEENT: Atraumatic; moist oral mucosa EYES; Anicteric, Normal Conjunctiva NECK; supple, normal thyroid, no distended JVD. RESPIRATORY: Diminished to auscultation bilaterally, CARDIOVASCULAR: Regular S1 S2, no audible murmurs GI: soft, non-tender, normoactive bowel sounds, : No Renal angle tenderness; EXTREMITIES: No edema, no clubbing, no cyanosis. MUSCULOSKELETAL: No Joint Tenderness; no muscle waisting NEURO: Awake; no lateralizing signs. SKIN: No Rash PSYCH; Normal affect - Physical Exam Vital Signs Temp Pulse Resp BP Pulse Ox 97.5 F L 84 18 102/64 98 10/08/18 07:08 10/08/18 07:08 10/08/18 07:08 10/08/18 07:08 10/08/18 07:08 Oxygen Delivery Method Room Air Weight: 61.9 kg Body Mass Index (BMI) 24.1 Intake and Output for Last 24 Hours 10/06/18 10/07/18 10/08/18 23:59 23:59 23:59 Intake Total 400 / 400 Output Total 150 / 150 Balance 400 / 400 -150 / -150 Laboratory Tests Past 24 Hrs 10/07/18 10/07/18 10/07/18 06:55 08:53 19:22 Sodium Potassium Chloride Carbon Dioxide Anion Gap BUN Creatinine Estim Creat Clear Calc Est GFR (MDRD) Af Amer Est GFR (MDRD) Non-Af BUN/Creatinine Ratio Glucose Calcium Ammonia Total Creatine Kinase 81 Triglycerides Cholesterol LDL Cholesterol VLDL Cholesterol HDL Cholesterol Urine Opiates Screen NEGATIVE Urine Methadone Screen NEGATIVE Ur Barbiturates Screen NEGATIVE Ur Phencyclidine Scrn NEGATIVE Ur Amphetamines Screen NEGATIVE U Methamphetamin-MDMA NEGATIVE U Benzodiazepines Scrn NEGATIVE Urine Cocaine Screen NEGATIVE U Cannabinoids Screen NEGATIVE Ur Drug Screen Comment Ethyl Alcohol < 3.0 10/07/18 10/08/18 19:22 05:45 Sodium 137 Potassium 4.1 Chloride 101 Carbon Dioxide 29.0 Anion Gap 7 BUN 16 Creatinine 0.78 Estim Creat Clear Calc 69.76 Est GFR (MDRD) Af Amer 102 Est GFR (MDRD) Non-Af 84 BUN/Creatinine Ratio 20.6 H Glucose 77 Calcium 8.1 L Ammonia 21.0 Total Creatine Kinase Triglycerides 87 Cholesterol 211 H LDL Cholesterol 101 VLDL Cholesterol 17 HDL Cholesterol 93 Urine Opiates Screen Urine Methadone Screen Ur Barbiturates Screen Ur Phencyclidine Scrn Ur Amphetamines Screen U Methamphetamin-MDMA U Benzodiazepines Scrn Urine Cocaine Screen U Cannabinoids Screen Ur Drug Screen Comment Ethyl Alcohol Discharge Diet: No Restrictions Discharge Activity: May not drive while taking narcotic pain medications. Home Medications: Medications to take at Discharge Allergy Shots 2 IM QWEEK 08/25/13 Desog-E.estradiol/E.estradiol [Azurette 28 Day Tablet] 2 mg PO DAILY 08/25/13 Desvenlafaxine Succinate [Pristiq] 50 mg PO DAILY 08/25/13 Divalproex Sodium [Depakote] 750 mg PO QHS 08/25/13 Lansoprazole [Prevacid] 30 mg PO DAILY 08/25/13 buPROPion tablets [Wellbutrin tablets] 100 mg PO DAILY 08/25/13 traZODone [Desyrel] 25 mg PO QHS 08/25/13 Quetiapine Fumarate [Seroquel] 25 mg PO DAILY 10/07/18 proMETHazine tablet [Phenergan tablet] 25 mg PO Q4H PRN PRN 10/07/18 Lamotrigine [Lamictal] 100 mg PO BID #60 tablet 10/08/18 Meclizine HCl [Antivert] 25 mg PO TID PRN PRN #30 tablet 10/08/18 Following Prescrptions Were Given to Patient: Lamotrigine [Lamictal] 100 mg PO BID #60 tablet Meclizine HCl [Antivert] 25 mg PO TID PRN PRN #30 tablet PRN Reason: Dizziness Primary Care Physician: Sumanth Bush MD [Primary Care Provider] - Please follow up with your Primary Care Physician in: [place] 5-7 DAYS Patient Instructions: ED Dizziness UKO Minutes spent on discharge:: 35 Patient Condition:: Stable Medical Necessity - Tobacco Use Smoking Status: Never smoker Meaningful Use Info Meaningful Use Diagnoses (Choose all that apply): None applicable Code Visit OBSV E&M: [id number] Observation care discharge
[2018-10-08] MEDS: Ketorolac 15 MG/ML Vial IV (09:26)
[2018-10-08] MEDS: proMETHazine 25 MG/ML Syringe 12.5 MG IM (09:26)
[2018-10-08] MEDS: 0.9% NaCl Peripheral Flush Adult/Peds IV (09:27)
[2018-10-08] MEDS: Venlafaxine XR 37.5 MG Capsule PO (10:28)
[2018-10-08] MEDS: Enoxaparin 40 MG/0.4 ML Syringe SC (10:28)
[2018-10-08] MEDS: buPROPion (SR) 100 MG TABLET.SA PO (10:28)
--- NOTE | 2018-10-08 11:36 | NURSING ---
Patient in need of wheeled walker. [employer] notified, prescription and discharge summary with face to face faxed to [employer] per request.
[2018-10-08] MEDS: Acetaminophen 325 MG Tablet 650 MG PO (13:24)
== END 2018-10-08 09:21 | disposition home or self-care (01) ==
LOC: ED 10:08 → PCU 13:10
PROVIDERS: Psychiatry & Neurology Neurology; Admitting Provider Internal Medicine; Emergency Provider Emergency Medicine; Family Provider Family Medicine; PCP Family Medicine; Visit Provider Internal Medicine
DX: R42 Dizziness and giddiness (principal); F31.9 Bipolar disorder, unspecified; F41.9 Anxiety disorder, unspecified; Z79.899 Other long term (current) drug therapy; R25.1 Tremor, unspecified; G43.909 Migraine, unspecified, not intractable, without status migrainosus
CPT/HCPCS: 36415; 70450; 70496; 70498; 70551; 71045; 80048; 80053; 80061; 80164; 80307; 80320; 81001; 82140; 82550; 85025; 93005; 93306; 96372; 96374; 96375; 96376; 97161; 97165; 99218; 99251; 99285; J7040; Q9967; A4216; G0378; G0463; G0480

== ENCOUNTER 2019-01-02 16:06 | Emergency (ER) | payer BC, SELFPAY ==
[2018-10-07 06:46] VITALS: BMI 24.1
[2019-01-02 16:08] VITALS: BP 148/92; PULSE 95; RESP 18; TEMP 36.2; O2SAT 98; BMI 23.0
--- NOTE | 2019-01-02 16:28 | ED.VISSUMM ---
- ER Visit Summary Date of Service: 01/02/19 Chief Complaint: Migraine History of Present Illness: The patient is a 48 F who woke yesterday morning with a migraine. She states that improved after getting an injection of Nubain and Phenergan but then returned. She denies any recent head trauma. She reports mild sinus pressure. Patient does have a history of migraines. Physical Examination: Vital signs unremarkable. Patient is lying in a darkened room. She is in no acute distress. Head neck examination normal. She has no meningismus. Heart is regular rate and rhythm. Lungs sounds are clear. Abdomen is soft nontender. Neuro exam is normal. Test Results: Emergency Department Course and Treatment: Patient was given Toradol, Phenergan, and IV fluids. On repeat valuation patient states her headache has gone from a 10 down to a 5. She will be given a dose of steroids and then discharged home. Treatment Plan: [] Disposition: Discharge Impression: Migraine, improved This note was generated with [employer] dictation software. It may contain incorrect words, spelling, and punctuation that were not noted in review of the chart prior to signing ED Disposition - Plan for ED Patient: Disposition: Home or Assisted Living Instructions: ED Headache Migraine Referrals: Sumanth Bush MD [Primary Care Provider] - 3-5 Days if not improving
[2019-01-02] MEDS: proMETHazine 25 MG/ML Syringe 12.5 MG IV (16:50)
[2019-01-02] MEDS: 0.9% Normal Saline 1,000 ML 999 ML IV (16:50)
[2019-01-02] MEDS: Ketorolac 30 MG/ML Syringe IV (16:51)
[2019-01-02] MEDS: MethylPREDNISolone 125 MG/2 ML Vial 80 MG IV (18:10)
[2019-01-02 18:13] VITALS: BP 148/95; PULSE 78; RESP 18; O2SAT 98
== END 2019-01-02 18:41 | disposition home or self-care (01) ==
PROVIDERS: Emergency Provider Emergency Medicine; Family Provider Family Medicine; PCP Family Medicine
DX: G43.909 Migraine, unspecified, not intractable, without status migrainosus (principal); F31.9 Bipolar disorder, unspecified; Z79.899 Other long term (current) drug therapy
CPT/HCPCS: 96361; 96374; 96375; 99283; J7030; A4216

== ENCOUNTER → 2019-03-24 | Outpatient (CLI) | payer BC, SELFPAY ==
[2019-03-24 14:32] LABS: Hematocrit 39.9 % (37-47); Mean Corp Hgb Conc 32.6 g/gl (32-36); Mean Corpuscular Hgb 28.1 pg (27.0-32.0); Mean Corpuscular Volume 86.2 fL (81-99); Platelet Count 266 K/mm3 (150-450); RBC Distribution Width CV 12.8 % (11.6-14.6); RBC Distribution Width SD 39.5 fl (35.1-43.9); Red Blood Count 4.63 M/mm3 (4.2-5.4); Scan Indicated on CBC? Y/N NO; White Blood Count 4.1 K/mm3 (4.4-11.0)
[2019-03-24 14:57] LABS: Valproic Acid (Depakene) Level 53 ug/mL (50-100)
[2019-03-24 15:12] LABS: ALB/GLOB Ratio 0.8 RATIO (0.9-2.4); AST(SGOT) 15 U/L (15-37); Alanine Aminotransfer ALT/SGPT 19 U/L (13-56); Albumin, Serum 3.4 g/dL (3.2-5.0); Alkaline Phosphatase 76 U/L (45-117); Anion Gap 8 (5-15); BUN 14 mg/dL (7-18); BUN/Creat Ratio 18.1 RATIO (10-20); Calcium,Total 8.7 mg/dL (8.5-10.1); Chloride 101 mmol/L (98-107); Cholesterol 241 mg/dL (200); Creatinine, Serum 0.77 mg/dL (0.55-1.02); EST Glomerular Filtration Rate 84 mL/min (>60); Est Glom Filt Rate - Afr Amer 102 mL/min (>60); Globulin 4.3 g/dL (2.2-4.2); Glucose 80 mg/dL (74-106); High Density Lipoprotein 75 mg/dL; Potassium 4.3 mmol/L (3.5-5.1); Protein, Total 7.7 g/dL (6.4-8.2); Sodium Level 140 mmol/L (136-145); Thyroid Stim Hormone (TSH) 1.07 uIU/mL (0.358-3.74); Triglycerides 133 mg/dL; Very Low Density Lipoprotein 27 mg/dL (5-40)
== END | disposition home or self-care (01) ==
LOC: MTLAB 11:44
PROVIDERS: Family Provider Family Medicine; PCP Family Medicine
DX: F33.1 Major depressive disorder, recurrent, moderate (principal)
CPT/HCPCS: 80053; 80061; 80164; 84443; 85027

== ENCOUNTER → 2019-07-21 | Outpatient (CLI) | payer BC, SELFPAY ==
[2019-07-21 14:10] LABS: Absolute Lymphocyte Count 2.04 X10^3/uL (0.83-4.51); Absolute Neutrophil Count 1.2 X10^3/uL (2.0-7.7); Basophil# 0.06 X10^3/uL; Basophil% 1.6 % (0-1); Eosinophil# 0.06 X10^3/uL; Eosinophils% 1.6 % (0-5); Hematocrit 39.3 % (37-47); Hemoglobin 12.8 g/dL (12.0-15.0); Lymphocyte # 2.04 X10^3/ul (4.0); Lymphocyte % 54.5 % (19-41); Mean Corp Hgb Conc 32.6 g/dL (32-36); Mean Corpuscular Hgb 29.2 pg (27.0-32.0); Mean Corpuscular Volume 89.5 fL (81-99); Mean Platelet Vol. 9.2 fl (6.2-12.0); Monocyte# 0.34 X10^3/uL; Monocyte% 9.1 % (0-10); NRBC Flagged by Analyzer 0 % (0-5); Neutrophil # 1.24 X10^3/uL (2.7-7.7); Neutrophil % 33.2 % (47-70); Platelet Count 255 K/mm3 (150-450); RBC Distribution Width CV 12.2 % (11.6-14.6); RBC Distribution Width SD 40.4 fl (35.1-43.9); Red Blood Count 4.39 M/mm3 (4.2-5.4); White Blood Count 3.7 K/mm3 (4.4-11.0)
[2019-07-21 14:36] LABS: ALB/GLOB Ratio 0.7 RATIO (0.9-2.4); AST(SGOT) 12 U/L (15-37); Alanine Aminotransfer ALT/SGPT 13 U/L (13-56); Albumin, Serum 3.1 g/dL (3.2-5.0); Alkaline Phosphatase 90 U/L (45-117); Anion Gap 4 (5-15); BUN 14 mg/dL (7-18); BUN/Creat Ratio 17.1 RATIO (10-20); Calcium,Total 8.6 mg/dL (8.5-10.1); Chloride 103 mmol/L (98-107); Creatinine, Serum 0.82 mg/dL (0.55-1.02); EST Glomerular Filtration Rate 79 mL/min (>60); Erythrocyte Sedimentation Rate 17 mm/hr (0-20); Est Glom Filt Rate - Afr Amer 95 mL/min (>60); Globulin 4.3 g/dL (2.2-4.2); Glucose 107 mg/dL (74-106); Magnesium 1.9 mg/dL (1.6-2.6); Protein, Total 7.4 g/dL (6.4-8.2); Sodium Level 138 mmol/L (136-145); T4 Free Direct 0.86 ng/dL (0.76-1.46)
[2019-07-22 09:44] LABS: Hemoglobin A1c 5.3 % (4.2-6.3)
[2019-07-23 12:29] LABS: Anti-Thyroglobulin AB < 1.0 IU/mL (0.0-0.9); Thyroglobulin, Serum Qt. 6.7 ng/mL (1.5-38.5); Thyroid Peroxidase AB 16 IU/mL (0-34)
== END | disposition home or self-care (01) ==
LOC: MFPLAB 12:10
PROVIDERS: Family Provider Family Medicine; PCP Family Medicine; Referring Provider Family Medicine; Visit Provider Family Medicine
DX: E01.0 Iodine-deficiency related diffuse (endemic) goiter (principal); K21.9 Gastro-esophageal reflux disease without esophagitis; R73.09 Other abnormal glucose
CPT/HCPCS: 36415; 80053; 83036; 83735; 84432; 84439; 84443; 85025; 85652; 86376; 86800

== ENCOUNTER → 2019-07-26 12:21 | Outpatient (CLI) | payer BC, SELFPAY ==
--- NOTE | 2019-07-26 12:23 | US_ITS ---
STUDY: THYROID ULTRASOUND REASON FOR EXAM: Female, 49 years old. Thyromegaly. TECHNIQUE: Ultrasound evaluation of the thyroid was performed with real-time and static almeida-scale imaging. COMPARISON: None. FINDINGS: RIGHT LOBE: The right lobe of the thyroid gland measures 5.3 x 1.7 x 2.5 cm. There is a homogeneous echotexture. There are no demonstrated solid, cystic or complex lesions. LEFT LOBE: The left lobe of the thyroid gland measures 5.1 x 1.5 x 2.5 cm. There is a homogeneous echotexture. There are no demonstrated solid, cystic or complex lesions. ISTHMUS: The isthmus measures 6 mm . The regional lymph nodes are normal. US/Thyroid IMPRESSION: Slight prominence of the thyroid without nodules. Electronically Signed: Mio Castañeda DO at 0:01 EDT Tel [phone], Service support ,
== END ==
PROVIDERS: Family Provider Family Medicine; PCP Family Medicine; Referring Provider Family Medicine; Visit Provider Family Medicine
DX: E01.0 Iodine-deficiency related diffuse (endemic) goiter (principal)
CPT/HCPCS: 76536

== ENCOUNTER → 2019-08-05 15:01 | Outpatient (CLI) | payer BC, SELFPAY ==
--- NOTE | 2019-08-05 15:03 | RAD_ITS ---
STUDY: X-RAY - RIGHT KNEE REASON FOR EXAM: Female, 49 years old. Pain TECHNIQUE: 4 view(s) of the knee. COMPARISON: None. FINDINGS: There is no evidence of fracture or dislocation. There are no significant degenerative changes. There are no radiodense foreign bodies. RAD/Knee 4 or More Views IMPRESSION: No fracture or dislocation. Electronically Signed: Julio Molina, at 20:28 EDT Tel , Service support ,
--- NOTE | 2019-08-05 15:03 | RAD_ITS ---
STUDY: X-RAY - LEFT KNEE REASON FOR EXAM: Female, 49 years old. Knee pain TECHNIQUE: 4 view(s) of the knee. COMPARISON: None. FINDINGS: Normal visualized distal femur. Normal visualized proximal tibia and fibula. Normal proximal tibiofibular articulation. Normal medial femorotibial compartment. Normal lateral femorotibial compartment. Normal patellofemoral articulation. Mild soft tissue swelling. No radiopaque foreign body. RAD/Knee 4 or More Views IMPRESSION: Mild soft tissue swelling. No radiopaque foreign body. Electronically Signed: Nathaniel Liz, at 3:52 EDT Tel , Service support ,
== END ==
PROVIDERS: Family Provider Family Medicine; PCP Family Medicine; Referring Provider Family Medicine; Visit Provider Family Medicine
DX: M25.561 Pain in right knee (principal); M25.562 Pain in left knee
CPT/HCPCS: 73564

== ENCOUNTER 2019-08-17 06:30 | Day surgery (SDC) | payer BC, SELFPAY ==
[2019-08-09 13:27] VITALS: BMI 23.0
[2019-08-17] VITALS (14 sets, daily range): BP systolic 128–156; BP diastolic 83–105; PULSE 76–93; RESP 14–16; TEMP 36.2–36.7; O2SAT 93–100; BMI 23.2
[2019-08-17] MEDS: Lactated Ringers 1,000 ML 100 ML IV (07:15)
--- NOTE | 2019-08-17 07:21 | HP.PCM_ITS ---
Problem List (1) GERD (gastroesophageal reflux disease) Status: Acute Qualifiers: (2) Epigastric abdominal pain Status: Acute History and Physical Date of Admission: 08/17/19 Intake Visit Reasons: EGD DX GERD Director Center Required: No Is patient in pain?: No Allergies verapamil Allergy (Mild, Verified 08/09/19 13:24) Rash amoxicillin [Amoxicillin] Allergy (Verified 01/02/19 16:08) Hives sulfamethoxazole [From Septra] Allergy (Verified 01/02/19 16:08) Rash trimethoprim [From Septra] Allergy (Verified 01/02/19 16:08) Rash diphenhydramine [From Benadryl] Adverse Reaction (Verified 01/02/19 16:08) Other olanzapine [From Zyprexa] Adverse Reaction (Verified 01/02/19 16:08) Unknown oxcarbazepine [From Trileptal] Adverse Reaction (Verified 01/02/19 16:08) Unknown sumatriptan [From Imitrex] Adverse Reaction (Verified 01/02/19 16:20) Other zolmitriptan [From Zomig] Adverse Reaction (Verified 01/02/19 16:08) Unknown AVALOX Adverse Reaction (Uncoded 01/02/19 16:08) Unknown Medications Allergy Shots 2 IM QWEEK 08/25/13 [History Confirmed 08/25/13] Desog-E.estradiol/E.estradiol [Azurette 28 Day Tablet] 2 mg PO DAILY 08/25/13 [History Confirmed 08/09/19] Desvenlafaxine Succinate [Pristiq] 50 mg PO DAILY 08/25/13 [History Confirmed 08/09/19] Divalproex Sodium [Depakote] 500 mg PO QHS 08/25/13 [History Confirmed 08/09/19] Lansoprazole [Prevacid] 30 mg PO DAILY 08/25/13 [History Confirmed 08/09/19] Quetiapine Fumarate [Seroquel] 75 mg PO DAILY 10/07/18 [History Confirmed 08/09/19] Meclizine HCl [Antivert] 25 mg PO TID PRN PRN #30 tab 10/08/18 [Rx Confirmed 08/09/19] Lamotrigine [Lamictal] 200 mg PO DAILY 01/02/19 [History Confirmed 08/09/19] bupropion HCl 100 mg tablet 150 mg PO DAILY tab 08/09/19 [History Confirmed 08/09/19] diclofenac sodium 50 mg tablet,delayed release 50 mg PO BID 08/09/19 [History Confirmed 08/09/19] [facility] Medical History Frequent headaches (Acute) GERD (gastroesophageal reflux disease) (Acute) Surgical History S/P carpal tunnel release (Acute) S/P correction of deviated nasal septum (Acute) S/P hysterectomy (Acute) S/P laparoscopic cholecystectomy (Acute) S/P tonsillectomy and adenoidectomy (Acute) Family History Mother CVA (cerebral vascular accident) Social History (Updated 08/09/19 @ 17:50 by Abhishek Richter MD) Smoking Status: Never smoker alcohol intake: never HPI HPI HPI: GISELA TURNER, is a 49 F who presents to the office today for HPI HPI Surgical H&P: Yes HPI: GISELA TURNER, is a 49 F who presents to the office today for surgical consultation regarding intractable epigastric pain and reflux disease which is been ongoing for at least 10 years. The patient is referred for surgical consultation by her primary care physician Dr Sumanth Krause and a written copy of my surgical consult recommendations will be returned to him. As recently as July 21, 2019 the patient has laboratory demonstrating white blood cell count of 3.7 with a hemoglobin 12.8 and hematocrit 39.3 and a platelet count of 255,000. At that time she had 54% lymphocytes and 33% neutrophils. BUN is 14 and creatinine 0.82. Albumin 3.1. TSH was 0.9 and free T4 was 0.86. The patient notes a 10-year history at least of epigastric pain and reflux symptoms. She has been on a proton pump inhibitor for an extended period of time. If she misses the proton pump inhibitor then she has significant epigastric pain as well as reflux. She will occasionally utilize [id number] antacids. The patient does suffer from depression. She had a colonoscopy 6 years ago prior to her hysterectomy. That was requested by Dr. Kathie Pack. According to the patient that was not remarkable. The patient has never had an upper endoscopy. She has not noticed any bright red blood per rectum or melena. She has had slight weight gain. She has had no unexpected weight loss. ROS General General: No weight change, appetite, fatigue, colon cancer, breast cancer or weakness HEENT HEENT: No difficulty swallowing, eye injury, eye surgery, swollen glands or hoarseness Endo Endocrine: No thyroid disease, diabetes mellitus, thyroid cancer, Hair loss, heat intolerance or cold intolerance Skin Skin: No rash or changing moles Breast Breast: No left breast lump, right breast lump, nipple discharge, breast pain, abnormal mammogram, abnormal US or breast enlargement Musc Musculoskeletal: No back problems, arthritis, rheumatoid arthritis, gout or joint pain Cardio Cardiovascular: No murmur, pacemaker, heart disease, atrial fibrillation, high blood pressure, heart attack, heart stent, palpitations, shortness of breat with exertion or chest pain Psych Psychiatric: Yes depression and anxiety; no hearing voices Resp Respiratory: No shortness of breath, No sleep apnea, No cough, No COPD, No asthma, No emphysema, No wheezing Gastro Gastrointestinal: Yes abdominal pain, No nausea or vomiting, No diarrhea, No constipation, No blood in stool, Yes acid reflux, No hemorrhoids, No ulcers, No gallbladder problem, No black,tarry stools Tony Hematologic: No blood thinners, No blood disorders, No bleeding, No anemia, No blood clots Neuro Neurologic: No system reviewed and no additional complaints, except as docu, No as per HPI, No abnormal walking, No abnormal hearing, No abnormal movements, No abnormal speech, No behavioral changes, No burning sensations, No confusion, No seizure-like activity, No unsteadiness, No dizziness, No localized weakness, No frequent falls, No headache(s), No lack of coordination, No loss of vision, No memory loss, No numbness, No other visual disturbances, No radiating pain, No restless legs, No sensory deficit, No fainting, No tingling, No tremor(s), No weakness, No other Exam Const General: cooperative, comfortable, no acute distress Nutritional Appearance: average body habitus Orientation: alert, awake [facility] Head: normal to inspection Eyes General: appearance normal, both eyes and all related structures Chest Chest palpation & inspection: normal inspection of the chest Breast Palpation: No nipple discharge Resp Effort & Inspection: normal respiratory effort Auscultation: clear to auscultation bilaterally Cardio Rate: regular rate Rhythm: regular rhythm Heart Sounds: no murmurs GI Palpation: soft, no hepatosplenomegaly Auscultation: normal bowel sounds Neuro Cognition: normal cognition Extrem General: no calf tenderness bilaterally Assessment & Plan Problems 1. Epigastric abdominal pain R10.13 2. Gastroesophageal reflux disease, esophagitis presence not specified K21.9 Plan 49-year-old female who seems to be quite symptomatic and medication dependent. She has been on proton pump inhibitors for at least 10 years. I would concur with referral recommendations for an esophagogastroduodenoscopy with anticipated biopsies. Very careful inspection for an etiology of the patient's epigastric pain as well as symptoms consistent with reflux will be pursued. Careful inspection for H. pylori as well as possible eosinophilic esophagitis will be pursued. The patient has had an opportunity to ask and have questions answered. We will schedule and proceed at her discretion. I very much appreciate the kind opportunity of assisting with her surgical care CC: Dr Sumanth Richter M.D., F.A.C.S. Orders Orders: EGD Today K21.9 Coding Level of Care Code 80210 Diagnoses Epigastric abdominal pain R10.13 Gastroesophageal reflux disease, esophagitis presence not specified K21.9 ??Esophagitis presence: esophagitis presence not specified 08/09/19 0479 <Electronically signed by Abhishek bennett MD> Date _ Abhishek Richter MD Cosigner Signature: Date (if applicable) CC: Sumanth Krause MD ~ I have re-examined the patient. There are no clinical changes since date of exam.
--- NOTE | 2019-08-17 07:30 | IMM_PTH ---
PATIENT: GISELA TURNER LOC: EN U#:[id number] AGE/SX: 49/F ROOM: RE08/17/[address]: Dr. Abhishek Richter MD : 1970 BED: DIS: 08/17/2019 SPEC #: [id number] RECD: 08/17/19 14:51 STATUS: PEG REFloyd #: [id number] JOSAFAT: 08/17/19 07:[address]: Abhishek Richter DEPT: IMMUNOHISTOCHEMISTRY RECD BY: Hannah Rolon ENTERED: 08/17/19 14:51 SP TYPE: IMMUNO OTHR DR: Dr. Sumanth Krause MD Tissues: B - Stomach, NOS Procedures: H Pylori (initial) PHYSICIAN & INSTITUTION [place] [address] SPECIMEN INFORMATION: Tissue Source: B - Antral biopsy Clinical Info: Epigastric abdomen pain, GERD Specimen Number: [id number] CPT code: 21800 METHODOLOGY: Deparaffinized sections of prefer/formalin-fixed tissue or PAP/DQ stained slides are incubated with monoclonal/polyclonal antibodies/oligonucleotide probes. Localization is made via biotin free immunoperoxidase method. Appropriate controls are performed and reacted as expected. Results on target cell population are indicated in the following table: RESULTS: ANTIBODY / CLONE RESULT Block B H Pylori (polyclonal) negative These tests were developed and their performance characteristics determined by [facility]. They may not have been cleared or approved by the U.S. Food and Drug Administration. The FDA has determined that such clearance or approval is not necessary. INTERPRETATION: B. Antral biopsy: Negative for Helicobacter pylori organisms. SJ:mickey 08/18/19
--- NOTE | 2019-08-17 07:30 | EGD_PTH ---
PATIENT: GISELA TURNER LOC: EN U#:[id number] AGE/SX: 49/F ROOM: RE08/17/[address]: Dr. Abhishek Richter MD : 1970 BED: DIS: 08/17/2019 SPEC #: [id number] RECD: 08/17/19 12:12 STATUS: PEG CANDIDA #: [id number] JOSAFAT: 08/17/19 07:[address]: Abhishek Richter DEPT: SURGICAL PATHOLOGY RECD BY: Raleigh Ospina ENTERED: 08/17/19 14:12 SP TYPE: EGD BIOPSY OT DR: Dr. Sumanth Krause MD Tissues: A - Duodenum, NOS B - Gastric mucous membrane C - Esophagus, NOS D - Esophagus, NOS Procedures: Surgery Specimen Level IV HEADER OPERATION: EGD (MOD) PRE-OP DIAGNOSIS: Epigastric abdominal pain, GERD TISSUE SUBMITTED: A. Duodenum biopsy, B. Antrum biopsy for H. pylori and path, C. Distal esophagus biopsy, D. Mid esophagus biopsy MICROSCOPIC DIAGNOSIS A. Duodenum, biopsy: A fragment of duodenal mucosa with mild Nelly gland hyperplasia. B. Antrum, biopsy: Mild gastritis. See microscopic description and comment. C. Distal esophagus, biopsy: Fragments of squamous epithelium with focal minimal chronic inflammation. D. Mid esophagus, biopsy: Fragments of squamous epithelium, no pathologic diagnosis. SJ:mickey 08/18/19 COMMENT B. The results of immunohistochemistry for Helicobacter pylori will be reported separately ([id number]). MICROSCOPIC DESCRIPTION Slides are reviewed. B. The specimen shows fragments of gastric mucosa with chronic inflammatory cell infiltrates in the lamina propria consisting of lymphocytes and plasma cells, consistent with mild chronic gastritis. GROSS DESCRIPTION A - Received in fixative is one container labeled with the patient's name and designated duodenum biopsy. The specimen consists of one irregular fragment of light silveira soft tissue that measures 0.5 x 0.3 x 0.1 cm. The specimen is totally submitted in one cassette. B - Received in fixative is one container labeled with the patient's name and designated antrum biopsy. The specimen consists of one irregular fragment of light silveira soft tissue that measures 0.3 x 0.3 x 0.1 cm. The specimen is totally submitted in one cassette. C - Received in fixative is one container labeled with the patient's name and designated distal esophagus biopsy. The specimen consists of multiple irregular fragments of light silveira soft tissue that in aggregate measure 0.5 x 0.2 x 0.1 cm. The specimen is totally submitted in one cassette. D - Received in fixative is one container labeled with the patient's name and designated mid esophagus biopsy. The specimen consists of multiple irregular fragments of light silveira soft tissue that in aggregate measure 0.6 x 0.3 x 0.1 cm. The specimen is totally submitted in one cassette. / SJ:rg 08/17/19 TC:3 CPT: 24187 x4
--- NOTE | 2019-08-17 07:51 | OP.ENDO_ITS ---
08/17/2019 Sumanth Krause [address] [place] [address] Re : Upper GI endoscopy procedure for Deisi Harvey Dear Dr. Karuse This procedure was performed on Saturday, August 17, 2019. My impressions and recommendations are as follows: Impressions : - LA Grade A reflux esophagitis. Biopsied. - Erythematous mucosa in the antrum. Biopsied. - Food (residue) in the stomach. - Normal examined duodenum. Biopsied. Recommendations : - Discharge patient to home. - Resume previous diet. - Continue present medications. - Do a gastric emptying study in 1 week. My findings are described in the full procedure note, which is enclosed. If I can be of further assistance, please feel free to contact me at Doctor phone number(s): Work: . Sincerely, Abhishek Richter MD 08/17/2019 7:51:08 AM This report has been signed electronically.
== END 2019-08-17 09:21 | disposition home or self-care (01) ==
LOC: EN 06:31 → AC 06:32
PROVIDERS: Family Provider Family Medicine; PCP Family Medicine; Referring Provider Family Medicine; Visit Provider Surgery
PROC: (CPT 43239; principal; 2019-08-17 07:25)
DX: K29.70 Gastritis, unspecified, without bleeding (principal); K21.0 Gastro-esophageal reflux disease with esophagitis; F32.9 Major depressive disorder, single episode, unspecified; Z79.899 Other long term (current) drug therapy
CPT/HCPCS: 43239; 88305; 88342; 99152; 99153; J7120; J2405

== ENCOUNTER → 2019-08-19 10:32 | Outpatient (CLI) | payer BC, SELFPAY ==
[2019-08-17 06:58] VITALS: BMI 23.2
--- NOTE | 2019-08-19 10:34 | NM_ITS ---
CLINICAL: 49-year-old female with reported history of early satiety. SEMI-SOLID PHASE 99m Tc SULFUR COLLOID GASTRIC EMPTYING STUDY COMPARISON: None available FINDINGS: The patient was administered 1.0 mCi of 99m Tc sulfur colloid mixed with oatmeal and consumed per os. Image acquisitions in the anterior-posterior projections for a total of 60 minutes. There is prompt visualization of the stomach. There is no gastroesophageal reflux identified. The T1/2 linear fit was calculated to be 46.26 minutes, (Normal: 12-56 minutes). NM/Gastric Emptying Study IMPRESSION: 1. NORMAL 99m Tc sulfur colloid semi-solid phase (oatmeal) gastric emptying imaging examination. A. There is normal and preserved semi-solid phase gastric emptying compared to normal controls. (Oliva et al, J Nucl Med Tech 38: 186, 2010). Electronically Signed: Shankar Cantu DO at 23:06 EDT Tel , Service support ,
== END ==
PROVIDERS: Family Provider Family Medicine; PCP Family Medicine; Referring Provider Surgery; Visit Provider Surgery
DX: R10.13 Epigastric pain (principal); K21.9 Gastro-esophageal reflux disease without esophagitis
CPT/HCPCS: 78264; A9541

== ENCOUNTER → 2019-11-06 10:44 | Outpatient (CLI) | payer BC, SELFPAY ==
[2019-08-17 06:58] VITALS: BMI 23.2
--- NOTE | 2019-11-06 07:18 | CT_ITS ---
STUDY: CT CHEST WITHOUT CONTRAST REASON FOR EXAM: Female, 49 years old. LUNG NODULE F/U, NODULES SEEN ON CT ABD DONE 04/27/06 AND 06/05/13, PREV VIVIENNE RADIATION DOSAGE (If Supplied By Facility): CTDIvol = ( 7 ) mGy, DLP = ( 225.75 ) mGycm TECHNIQUE: Transaxial 2.5 mm imaging was performed without the administration of intravenous contrast material. Multiplanar coronal and sagittal images were reformatted. This examination is limited for the evaluation of gastrointestinal, solid organs and vascular structures due to the lack of intravenous contrast. Individualized dose optimization techniques were used for this CT. COMPARISON: Chest x-ray 10/07/2018. CT abdomen pelvis 06/05/2013. 04/27/2006 FINDINGS: There are multiple parenchymal nodules some of which are calcified. Right upper lobe: 0.46 x 0.52 cm image 38, 0.2 and 0.3 cm image 33. Right lower lobe: 0.45 x 0.53 cm image 45, 0.66 x 0 68 centimeter image 56, 0.69 x 0.91 x 1.4 cm image 57 series 4, image 103 0671, calcified small nodule 0.16 cm image 58, pleural-based calcified nodule 0.67 x 0.71 cm, minimally more pronounced in size since previous CT abdomen pelvis, 0.31 x 0.41 cm image 469 series 4 and 0.5 x 0.52 cm image 73 series 407 which have increased in size. Left lower lobe: Pleural-based nodule 0.31 x 0.54 cm image 52, partially calcified nodule 0.44 x 0.48 cm image 55, faint calcification and stable nodule of 0.48 x 0.59, 0.52 x 0.52 cm image 60. The lungs are otherwise normal. There is no demonstrated pleural abnormality. Normal heart and pericardium. Normal mediastinum. Suspicion for borderline size to minimally enlarged lymph nodes in the right greater than left hilum. Normal unenhanced pulmonary arteries. Normal aorta arch and descending thoracic aorta. Normal osseous structures. No destructive osseous lesions. Normal adrenal glands. CT/Chest without Contrast IMPRESSION: Bilateral parenchymal nodules some of which are calcified possibly secondary to previous granulomatous exposure. Suspicion for borderline size to mild lymphadenopathy in the isela. Follow-up examination chest preferably with IV contrast for better hilar assessment. Electronically Signed: Janis Lange MD at 7:01 EST , Service support ,
== END ==
PROVIDERS: Family Provider Family Medicine; PCP Family Medicine; Referring Provider Family Medicine; Visit Provider Family Medicine
DX: R91.8 Other nonspecific abnormal finding of lung field (principal)
CPT/HCPCS: 71250

== ENCOUNTER → 2019-12-13 14:14 | Outpatient (CLI) | payer BC, SELFPAY ==
[2019-08-17 06:58] VITALS: BMI 23.2
[2019-12-13 15:43] LABS: Valproic Acid (Depakene) Level 51 ug/mL (50-100)
[2019-12-13 15:44] LABS: AST(SGOT) 14 U/L (15-37); Alanine Aminotransfer ALT/SGPT 20 U/L (13-56); Albumin, Serum 3.5 g/dL (3.2-5.0); Alkaline Phosphatase 83 U/L (45-117); Anion Gap 3 (5-15); BUN 11 mg/dL (7-18); BUN/Creat Ratio 14.3 RATIO (10-20); Bilirubin, Direct 0.06 mg/dL (0.00-0.30); Calcium,Total 9.3 mg/dL (8.5-10.1); Chloride 102 mmol/L (98-107); Creatinine, Serum 0.77 mg/dL (0.55-1.02); EST Glomerular Filtration Rate 84 mL/min (>60); Est Glom Filt Rate - Afr Amer 102 mL/min (>60); Globulin 4.4 g/dL (2.2-4.2); Glucose 101 mg/dL (74-106); Potassium 3.8 mmol/L (3.5-5.1); Protein, Total 7.9 g/dL (6.4-8.2); Sodium Level 138 mmol/L (136-145)
== END ==
PROVIDERS: PCP Family Medicine
DX: F33.42 Major depressive disorder, recurrent, in full remission (principal)
CPT/HCPCS: 36415; 80048; 80076; 80164

== ENCOUNTER → 2019-12-30 12:46 | Outpatient (CLI) | payer BC, SELFPAY ==
[2019-08-17 06:58] VITALS: BMI 23.2
--- NOTE | 2019-12-30 13:09 | CT_ITS ---
STUDY: CT FACIAL BONES WITHOUT CONTRAST REASON FOR EXAM: Female, 49 years old. SINUSITIS RADIATION DOSAGE (If Supplied By Facility): CTDIvol = ( 33.06 ) mGy, DLP = ( 833.85 ) mGycm TECHNIQUE: The patient was scanned in a multi detector CT scanner. Sagittal and coronal images were reconstructed. Individualized dose optimization techniques were used for this CT. COMPARISON: None. FINDINGS: Normal soft tissue structures. Normal orbital carreno and orbital contents. Normal nasal bones and anterior nasal spine. Normal facial bones. There is no demonstrated fracture. Normal visualized paranasal sinuses. CT/Sinus/Facial Bone IMPRESSION: Normal unenhanced CT of the facial bones. Electronically Signed: Rishi Hunt, at 14:20 EST , Service support ,
== END ==
PROVIDERS: PCP Family Medicine; Referring Provider Otolaryngology; Visit Provider Otolaryngology
DX: J32.9 Chronic sinusitis, unspecified (principal)
CPT/HCPCS: 70486

== ENCOUNTER 2020-01-03 21:46 | Emergency (ER) | payer BC, SELFPAY ==
[2019-08-17 06:58] VITALS: BMI 23.2
[2020-01-03 21:47] VITALS: BP 147/85; PULSE 74; RESP 16; TEMP 36.4; O2SAT 99; BMI 23.0
[2020-01-03] MEDS: Morphine 4 MG/ML Syringe IV (22:32)
[2020-01-03] MEDS: Ondansetron 4 MG/2 ML Vial IV (22:32)
[2020-01-03] MEDS: 0.9% Normal Saline 1,000 ML 150 ML IV (22:33)
--- NOTE | 2020-01-03 22:47 | RAD_ITS ---
STUDY: X-RAY - ACUTE ABDOMINAL SERIES REASON FOR EXAM: Female, 49 years old. Abdominal pain with vomiting. TECHNIQUE: Single view of the chest. Supine, and erect view(s) of the abdomen were obtained. COMPARISON: CT of the chest, November 06, 2019. CT the abdomen and pelvis, June 05, 2013. FINDINGS: The lungs are well expanded. There is an 8 mm calcification in the lateral right mid lung. No other mass or infiltrate is seen. Normal size heart. Normal mediastinum. The isela appear prominent but unchanged. Normal visualized aortic arch and descending thoracic aorta. There is a non-specific bowel gas pattern. The soft tissue structures of the abdomen and pelvis are unremarkable. Normal visualized osseous structures. RAD/Acute Abdomen Inc Chest IMPRESSION: 1. Old granulomatous disease without acute cardiopulmonary findings. 2. No acute intra-abdominal process. Electronically Signed: Claudio Mckinney DO at 23:01 EST Tel [phone], Service support ,
[2020-01-03 22:57] LABS: Absolute Lymphocyte Count 2.03 X10^3/uL (0.83-4.51); Absolute Neutrophil Count 2.9 X10^3/uL (2.0-7.7); Basophil# 0.06 X10^3/uL; Basophil% 1.1 % (0-1); Eosinophil# 0.04 X10^3/uL; Eosinophils% 0.7 % (0-5); Hematocrit 42.1 % (37-47); Lymphocyte # 2.03 X10^3/ul (4.0); Lymphocyte % 37.3 % (19-41); Mean Corp Hgb Conc 33.3 g/dL (32-36); Mean Corpuscular Hgb 28.5 pg (27.0-32.0); Mean Corpuscular Volume 85.6 fL (81-99); Mean Platelet Vol. 8.9 fl (6.2-12.0); Monocyte# 0.42 X10^3/uL; Monocyte% 7.7 % (0-10); NRBC Flagged by Analyzer 0 % (0-5); Neutrophil # 2.88 X10^3/uL (2.7-7.7); Platelet Count 263 K/mm3 (150-450); RBC Distribution Width SD 37.3 fl (35.1-43.9); Red Blood Count 4.92 M/mm3 (4.2-5.4); White Blood Count 5.4 K/mm3 (4.4-11.0)
[2020-01-03 23:11] LABS: AST(SGOT) 17 U/L (15-37); Alanine Aminotransfer ALT/SGPT 20 U/L (13-56); Albumin, Serum 3.5 g/dL (3.2-5.0); Alkaline Phosphatase 70 U/L (45-117); Anion Gap 6 (5-15); BUN 12 mg/dL (7-18); BUN/Creat Ratio 13.3 RATIO (10-20); Bilirubin, Direct 0.12 mg/dL (0.00-0.30); Chloride 102 mmol/L (98-107); EST Glomerular Filtration Rate 70 mL/min (>60); Est Glom Filt Rate - Afr Amer 85 mL/min (>60); Estimated Creatinine Clearance 62.55 ml/min; Globulin 4.3 g/dL (2.2-4.2); Glucose 112 mg/dL (74-106); Lipase 58 U/L (73-393); Potassium 4.1 mmol/L (3.5-5.1); Protein, Total 7.8 g/dL (6.4-8.2); Sodium Level 138 mmol/L (136-145)
[2020-01-03] MEDS: HYDROmorphone 0.5 MG/0.5 ML SYRINGE IV (23:14)
[2020-01-03 23:43] VITALS: BP 149/80; PULSE 79; RESP 16; O2SAT 94
[2020-01-04] MEDS: Ondansetron 4 MG/2 ML Vial IV (00:46)
[2020-01-04] MEDS: HYDROmorphone 1 MG/ML Syringe 0.5 MG IV (00:46)
--- NOTE | 2020-01-04 00:56 | ED.VIS.GEN ---
History of Present Illness Chief Complaint: Abd Pain Informant: Patient Onset: Today Current Severity: Moderate Maximum Severity: Moderate Narrative: Patient presents with epigastric abdominal pain that started at 2 PM this afternoon. This started approximately 4 hours after she had eaten breakfast. She denies fever or chills. She has had vomiting. She denies diarrhea. Past history is significant for prior cholecystectomy. - Past Medical History (1) GERD (gastroesophageal reflux disease) Status: Chronic (2) Vertigo Status: Chronic (3) Anxiety Status: Chronic (4) Bipolar disease, chronic Status: Chronic Past Medical History - Allergies and Home Meds Allergies/Adverse Reactions: Allergies verapamil Allergy (Mild, Verified 01/03/20 21:47) Rash amoxicillin [Amoxicillin] Allergy (Verified 01/03/20 21:47) Hives sulfamethoxazole [From Septra] Allergy (Verified 01/03/20 21:47) Rash trimethoprim [From Septra] Allergy (Verified 01/03/20 21:47) Rash diphenhydramine [From Benadryl] Adverse Reaction (Verified 01/03/20 21:47) Other olanzapine [From Zyprexa] Adverse Reaction (Verified 01/03/20 21:47) Unknown oxcarbazepine [From Trileptal] Adverse Reaction (Verified 01/03/20 21:47) Unknown sumatriptan [From Imitrex] Adverse Reaction (Verified 01/03/20 21:47) Other PT STATES PALPITATIONS AND GETS REALLY FLUSHED. zolmitriptan [From Zomig] Adverse Reaction (Verified 01/03/20 21:47) Unknown AVALOX Adverse Reaction (Uncoded 01/03/20 21:47) Unknown Primary Care Physician: Sumanth Krause MD [Primary Care Provider] - Prior records reviewed: Yes Lives: With Family Smoking Status: Never smoker - Family History Maternal Family History: Family History (Last Reviewed 08/09/19 @ 13:22 by Radha Mao) Mother CVA (cerebral vascular accident) Family History: Reports: Stroke - of stroke at age 67 Review of Systems General: Denies: Chills, Fever Eyes: Denies: Visual changes - bilaterally ENT: Denies: Bilateral ear pain Cardiovascular: Denies: Chest pain Respiratory: Denies: Dyspnea, Cough Gastrointestinal: Reports: Abdominal pain, Nausea, Vomiting. Denies: Diarrhea Genitourinary: Denies: Dysuria Musculoskeletal: Denies: Extremity Pain Skin: Denies: Rash Hematologic: Denies: Easy bruising, Easy bleeding Allergy: Denies: Uticaria Physical Exam Vital Signs/Narrative: Vital Signs Temp Pulse Resp BP Pulse Ox 01/03/20 23:43 79 16 149/80 H 94 01/03/20 21:47 97.6 F L 74 16 147/85 H 99 Inital Vital Signs reviewed: Yes General: Well nourished, Well developed Head: Normocephalic ENT: Moist mucous membranes Neck: Supple Cardiovascular: Regular rate, Regular rhythm Respiratory: No distress, CTA bilaterally Abdomen: Soft, Tender - Moderate tenderness outpatient in the epigastrium. No guarding or rebound., Hypoactive bowel sounds Extremities: Nontender Skin: Normal color Neurological: Alert, Oriented x3 Psychological: - - Anxious Diagnostic/Tx/Re-eval Impressions Acute Abdomen Series 01/03/20 22:47 IMPRESSION: 1. Old granulomatous disease without acute cardiopulmonary findings. 2. No acute intra-abdominal process. Electronically Signed: Claudio Mckinney DO at 23:01 EST Tel [phone], Service support , 01/03/20 22:47 Acute Abdomen Inc Chest [RAD] Stat 01/04/20 23:59 Abdomen/Pelvis WITH Contrast [CT] Stat Laboratory Results 01/03/20 01/03/20 22:35 22:35 WBC 5.4 RBC 4.92 Hgb 14.0 Hct 42.1 MCV 85.6 MCH 28.5 MCHC 33.3 RDW Std Deviation 37.3 RDW Coeff of Stella 12.0 Plt Count 263 MPV 8.9 Immature Gran % (Auto) 0.200 Neut % (Auto) 53.0 Lymph % (Auto) 37.3 [place] % (Auto) 7.7 Eos % (Auto) 0.7 Baso % (Auto) 1.1 H Absolute Neuts (auto) 2.9 Absolute Lymphs (auto) 2.03 Nucleated RBC % 0 Sodium 138 Potassium 4.1 Chloride 102 Carbon Dioxide 30.0 Anion Gap 6 BUN 12 Creatinine 0.90 Estim Creat Clear Calc 62.55 Est GFR (MDRD) Af Amer 85 Est GFR (MDRD) Non-Af 70 BUN/Creatinine Ratio 13.3 Glucose 112 H Calcium 10.0 Total Bilirubin 0.30 Direct Bilirubin 0.12 AST 17 ALT 20 Alkaline Phosphatase 70 Total Protein 7.8 Albumin 3.5 Globulin 4.3 H Lipase 58 L - Medical Decision Making Patient was initially given morphine and Zofran. Nursing staff advised that when they rechecked her she was curled into the position complaining of worsened abdominal pain. She was then given 0.5 mg of Dilaudid. At the time of my repeat examination she is lying back in bed but states she still has significant pain. She now states pain is moved across the lower portion of her abdomen. On exam she has no guarding or rebound. Test results are discussed with her. Laboratory work-up and acute abdominal series are unremarkable. In light of her significant tenderness CT scan with p.o. and IV contrast will be obtained. This to be signed out to oncoming physician for repeat check. ED Disposition - Plan for ED Patient: Referrals: Sumanth Krause MD [Primary Care Provider] -
[2020-01-04] MEDS: Famotidine 200 MG/20 ML MDV 20 MG in 0.9% Normal Saline (Pres. free 8 ML 300 MG IV (02:21)
[2020-01-04 02:24] VITALS: RESP 16
--- NOTE | 2020-01-04 03:12 | ED.VISSUMM ---
- ER Visit Summary Date of Service: 01/04/20 Chief Complaint: Abdominal pain History of Present Illness: The patient is a 49 F [] Physical Examination: [] Test Results: Clinical Impression(s) from Imaging Studies Acute Abdomen Series 01/03/20 22:47 IMPRESSION: 1. Old granulomatous disease without acute cardiopulmonary findings. 2. No acute intra-abdominal process. Electronically Signed: Claudio Mckinney DO at 23:01 EST Tel [phone], Service support , Abdomen/Pelvis CT 01/04/20 23:59 IMPRESSION: No acute findings in the abdomen or pelvis. No evidence of bowel obstruction. Normal appendix. Status post cholecystectomy and hysterectomy. Old granulomatous disease. Electronically Signed: Terrence Enrique MD at 2:30 EST , Service support , Laboratory Data 01/03/20 01/03/20 22:35 22:35 WBC 5.4 RBC 4.92 Hgb 14.0 Hct 42.1 MCV 85.6 MCH 28.5 MCHC 33.3 RDW Std Deviation 37.3 RDW Coeff of Stella 12.0 Plt Count 263 MPV 8.9 Immature Gran % (Auto) 0.200 Neut % (Auto) 53.0 Lymph % (Auto) 37.3 [place] % (Auto) 7.7 Eos % (Auto) 0.7 Baso % (Auto) 1.1 H Absolute Neuts (auto) 2.9 Absolute Lymphs (auto) 2.03 Nucleated RBC % 0 Sodium 138 Potassium 4.1 Chloride 102 Carbon Dioxide 30.0 Anion Gap 6 BUN 12 Creatinine 0.90 Estim Creat Clear Calc 62.55 Est GFR (MDRD) Af Amer 85 Est GFR (MDRD) Non-Af 70 BUN/Creatinine Ratio 13.3 Glucose 112 H Calcium 10.0 Total Bilirubin 0.30 Direct Bilirubin 0.12 AST 17 ALT 20 Alkaline Phosphatase 70 Total Protein 7.8 Albumin 3.5 Globulin 4.3 H Lipase 58 L Emergency Department Course and Treatment: Patient initially evaluated by Dr. Vines. Patient was signed out to [place] for final disposition pending CT results. CT does not show any acute intra-abdominal process or any surgical emergency causing her pain. She does not have any signs of intra-abdominal infection. Given that her pain is centered all around her epigastric region and it worsened when she stopped taking her Prevacid patient will be given a GI cocktail restarted on her Prevacid. She is also given a dose of Bentyl for her lower abdominal pain. Patient is agreeable with this plan. Patient counseled on signs symptoms require return emergency room. She is discharged home in stable condition. Treatment Plan: Prevacid, Zofran, Bentyl Disposition: Discharge home Impression: Abdominal pain, unclear cause This note was generated with [employer] dictation software. It may contain incorrect words, spelling, and punctuation that were not noted in review of the chart prior to signing ED Disposition - Plan for ED Patient: Disposition: Home or Assisted Living Diagnosis: Abdominal pain of unknown etiology, Epigastric abdominal pain Instructions: ABDOMINAL PAIN, Unknown Cause, (Female) Prescriptions: Dicyclomine HCl [Bentyl] 20 mg PO TIDAC #20 cap Prescription Printed Lansoprazole [Prevacid] 30 mg PO DAILY #14 cap Prescription Printed Ondansetron [Zofran Odt] 4 mg PO Q8H PRN PRN #10 tab PRN Reason: Nausea Prescription Printed Referrals: Sumanth Krause MD [Primary Care Provider] - Additional Instructions: The exact cause of your pain is not clear however you are safe to follow-up with your primary care doctor for further evaluation. Do not have any acute infection or surgical process at this time.
[2020-01-04] MEDS: Dicyclomine 10 MG Capsule 20 MG PO (03:22)
[2020-01-04] MEDS: Mag Hydrox/Al Hydrox/Simeth 30 ML UDC PO (03:22)
[2020-01-04 03:23] VITALS: BP 138/92; PULSE 90; RESP 18; O2SAT 98
--- NOTE | 2020-01-04 23:59 | CT_ITS ---
STUDY: CT ABDOMEN AND PELVIS WITH CONTRAST REASON FOR EXAM: Female, 49 years old. Diffuse abdominal pain with emesis. History of cholecystectomy. RADIATION DOSAGE (If Supplied By Facility): CTDIvol = ( 11.16 ) mGy, DLP = ( 438.67 ) mGycm TECHNIQUE: Transaxial images were obtained from the dome of the diaphragm to the symphysis pubis with oral contrast. Oral and amp; IV Gastrografin and amp; 100mL Isovue-370 was administered. Sagittal and coronal images were reconstructed. Individualized dose optimization techniques were used for this CT. COMPARISON: Acute abdominal series January 03, 2020. CT abdomen and pelvis June 05, 2013. FINDINGS: Densely calcified right lower lobe lung nodule. The visualized portions of the heart are within normal limits. Normal liver. Gallbladder absent compatible with history of cholecystectomy. Dilated common duct compatible with cholecystectomy. No evidence of obstructing stone. Normal spleen. Normal pancreas. Normal bilateral adrenal glands. Normal right kidney. Normal left kidney. Normal visualized stomach. Normal small intestine. Normal colon. The appendix is visualized and appears normal. Normal abdominal aorta. Normal inferior vena cava. Normal retroperitoneum. No intra-abdominal free air. Normal urinary bladder. There is absence of the uterus consistent with a prior hysterectomy. No adnexal mass is seen. Normal abdominal wall. Normal osseous structures. CT/Abdomen/Pelvis WITH Contrast IMPRESSION: No acute findings in the abdomen or pelvis. No evidence of bowel obstruction. Normal appendix. Status post cholecystectomy and hysterectomy. Old granulomatous disease. Electronically Signed: Terrence Enrique MD at 2:30 EST , Service support ,
== END 2020-01-04 03:30 | disposition home or self-care (01) ==
PROVIDERS: Emergency Provider Emergency Medicine; PCP Family Medicine
DX: R10.13 Epigastric pain (principal); R11.2 Nausea with vomiting, unspecified; K21.9 Gastro-esophageal reflux disease without esophagitis; F41.9 Anxiety disorder, unspecified; F31.9 Bipolar disorder, unspecified; Z79.899 Other long term (current) drug therapy
CPT/HCPCS: 74022; 74177; 80048; 80076; 83690; 85025; 96361; 96374; 96375; 96376; 99283; J7030; Q9967; A4216; J2405; J3490

== ENCOUNTER → 2020-08-29 | Outpatient (CLI) | payer BC, SELFPAY | END | disposition home or self-care (01) | PROVIDERS: Visit Provider Registered Nurse | DX: J98.8 Other specified respiratory disorders (principal) | CPT/HCPCS: 87635; U0003 ==

== ENCOUNTER 2020-09-29 18:55 | Emergency (ER) | payer BC, SELFPAY ==
[2020-09-29 18:55] VITALS: BP 165/94; PULSE 89; RESP 16; TEMP 36.3; O2SAT 99; BMI 23.0
--- NOTE | 2020-09-29 19:48 | ED.VISSUMM ---
- ER Visit Summary Date of Service: 09/29/20 Chief Complaint: Medication refill History of Present Illness: The patient is a 50 F who presents for medication refill. Patient states she ran out of her Depakote today. Patient states she took her last dose this morning. Patient states she has to be seen by her psychiatrist before she can get a refill. Patient states she has been trying to get an appointment with her psychiatrist for the past 2 weeks. Patient denies any suicidal or homicidal ideations. Physical Examination: Vital signs are stable. Patient is afebrile. Patient is in no acute distress. Oral mucosa is pink and moist. Neck is supple. Trachea is midline. There is no JVD. Heart was regular rate and rhythm. Lungs are clear and equal bilaterally. Abdomen is soft. Bowel sounds are normal. There is no tenderness. Cranial nerves II through XII are intact. There are no focal motor or sensory deficits. Patient has a normal affect. Patient denies any suicidal or homicidal ideations. Emergency Department Course and Treatment: Patient was given a prescription for Depakote ER for 1 month. Patient was instructed to follow-up with her psychiatrist in 5 to 7 days. Patient was instructed to return if worse in any way. Patient understood and was agreeable with the plan. All questions were answered. Disposition: Discharge home Impression: Medication refill This note was generated with [employer] dictation software. It may contain incorrect words, spelling, and punctuation that were not noted in review of the chart prior to signing ED Disposition - Plan for ED Patient: Disposition: Home or Assisted Living Diagnosis: Medication refill Instructions: Med Refill Prescriptions: Divalproex (ER) [Depakote ER] 500 mg PO DAILY 30 Days #30 tab Prescription Printed
== END 2020-09-29 19:59 | disposition home or self-care (01) ==
PROVIDERS: Emergency Provider Emergency Medicine; PCP Family Medicine
DX: Z76.0 Encounter for issue of repeat prescription (principal); F32.9 Major depressive disorder, single episode, unspecified; Z79.899 Other long term (current) drug therapy
CPT/HCPCS: 99282

== ENCOUNTER → 2020-11-08 13:02 | Outpatient (CLI) | payer BC, SELFPAY ==
--- NOTE | 2020-11-08 13:08 | CT_ITS ---
STUDY: CT CHEST WITHOUT CONTRAST REASON FOR EXAM: Female, 50 years old. Lung nodule follow up, COVID 08/2020 with continued SOB. No prior chest surgery. RADIATION DOSAGE (If Supplied By Facility): CTDIvol = ( 6.17 ) mGy, DLP = ( 203.62 ) mGycm TECHNIQUE: Transaxial imaging was performed without the administration of intravenous contrast material. Multiplanar coronal and sagittal images were reformatted. Individualized dose optimization techniques were used for this CT. COMPARISON: Comparison is made with prior examination dated 11/06/2019. FINDINGS: Stable small benign-appearing bilateral axillary lymph nodes. Stable 3.7 mm nodule on axial image #33 in the right upper lobe. Stable partially calcified nodule measuring 5.1 mm in the anterior aspect of the right upper lobe as seen on axial image #39. Stable 4.3 mm noncalcified nodule in the peripheral lateral aspect of the right lower lobe as seen on axial image #41. Stable calcified granuloma in the anterior aspect of the left lower lobe as seen on axial image #50. Stable 5.9 mm partially calcified nodule in the peripheral lateral aspect of the right lower lobe as seen on axial image #54. Stable calcified nodules in both lower lobes. There is no demonstrated pleural abnormality. Normal heart and pericardium. There are multiple small lymph nodes within the mediastinum, which are normal in size and morphology most compatible with reactive lymph hyperplasia. Normal hilar regions. Normal unenhanced pulmonary arteries. Normal aorta arch and descending thoracic aorta. There are degenerative changes of the thoracic spine. There is no demonstrated abnormality of the visualized upper abdomen. CT/Chest without Contrast IMPRESSION: Stable examination with multiple bilateral pulmonary nodules. No evidence of pulmonary infiltration. Electronically Signed: Rishi Hunt, at 14:46 EST , Service support ,
== END ==
PROVIDERS: PCP Family Medicine; Referring Provider Internal Medicine Pulmonary Disease; Visit Provider Internal Medicine Pulmonary Disease
DX: R91.1 Solitary pulmonary nodule (principal)
CPT/HCPCS: 71250

== ENCOUNTER → 2021-02-15 15:53 | Outpatient (CLI) | payer BC, SELFPAY ==
[2021-02-15 17:35] LABS: Absolute Lymphocyte Count 2.12 X10^3/uL (0.83-4.51); Absolute Neutrophil Count 1.8 X10^3/uL (2.0-7.7); Basophil# 0.04 X10^3/uL; Basophil% 0.9 % (0-1); Eosinophil# 0.11 X10^3/uL; Eosinophils% 2.5 % (0-5); Hematocrit 39.9 % (37-47); Hemoglobin 12.9 g/dL (12.0-15.0); Lymphocyte # 2.12 X10^3/ul (4.0); Lymphocyte % 47.4 % (19-41); Mean Corp Hgb Conc 32.3 g/dL (32-36); Mean Corpuscular Hgb 28.7 pg (27.0-32.0); Mean Corpuscular Volume 88.9 fL (81-99); Mean Platelet Vol. 8.8 fl (6.2-12.0); Monocyte# 0.43 X10^3/uL; Monocyte% 9.6 % (0-10); NRBC Flagged by Analyzer 0 % (0-5); Neutrophil # 1.77 X10^3/uL (2.7-7.7); Neutrophil % 39.6 % (47-70); Platelet Count 295 K/mm3 (150-450); RBC Distribution Width CV 11.9 % (11.6-14.6); RBC Distribution Width SD 38.8 fl (35.1-43.9); Red Blood Count 4.49 M/mm3 (4.2-5.4); White Blood Count 4.5 K/mm3 (4.4-11.0)
[2021-02-15 20:29] LABS: ALB/GLOB Ratio 0.8 RATIO (0.9-2.4); AST(SGOT) 17 U/L (15-37); Alanine Aminotransfer ALT/SGPT 19 U/L (13-56); Albumin, Serum 3.5 g/dL (3.2-5.0); Alkaline Phosphatase 79 U/L (45-117); Anion Gap 8 (5-15); BUN 15 mg/dL (7-18); BUN/Creat Ratio 18.6 RATIO (10-20); Calcium,Total 8.7 mg/dL (8.5-10.1); Chloride 98 mmol/L (98-107); Creatinine, Serum 0.81 mg/dL (0.55-1.02); EST Glomerular Filtration Rate 80 mL/min (>60); Est Glom Filt Rate - Afr Amer 97 mL/min (>60); Globulin 4.3 g/dL (2.2-4.2); Glucose 113 mg/dL (74-106); Potassium 4.1 mmol/L (3.5-5.1); Protein, Total 7.8 g/dL (6.4-8.2); Sodium Level 138 mmol/L (136-145); T4 Free Direct 0.88 ng/dL (0.76-1.46); Thyroid Stim Hormone (TSH) 0.96 uIU/mL (0.358-3.74)
[2021-02-16 17:42] LABS: Hemoglobin A1c 5.1 % (3.8-5.6)
[2021-02-19 16:23] LABS: Anti-Thyroglobulin AB < 1.0 IU/mL (0.0-0.9); Thyroglobulin, Serum Qt. 6.5 ng/mL (1.5-38.5); Thyroid Peroxidase AB 14 IU/mL (0-34)
== END ==
PROVIDERS: PCP Family Medicine; Referring Provider Family Medicine; Visit Provider Family Medicine
DX: K21.9 Gastro-esophageal reflux disease without esophagitis (principal); E01.0 Iodine-deficiency related diffuse (endemic) goiter
CPT/HCPCS: 36415; 80053; 83036; 84432; 84439; 84443; 85025; 86376; 86800

== ENCOUNTER 2021-04-14 17:37 | Emergency (ER) | payer BC, SELFPAY ==
[2021-04-14 17:39] VITALS: BP 134/116; PULSE 96; RESP 18; TEMP 36.8; O2SAT 96; BMI 23.6
--- NOTE | 2021-04-14 18:29 | EKG12_ITS ---
Test Reason : NUMB/TING Blood Pressure : / mmHG Vent. Rate : 077 BPM Atrial Rate : 077 BPM P-R Int : 164 ms QRS Dur : 070 ms QT Int : 364 ms P-R-T Axes : 068 038 069 degrees QTc Int : 411 ms Normal sinus rhythm Normal ECG Confirmed by PIPE HERNÁNDEZ, RACHEL ([id number]), video news editor JAYLON JASON ([id number]) on 04/17/2021 1:49:31 PM Referred By: JACINTO Confirmed By:RACHEL BETANCUR MD
--- NOTE | 2021-04-14 18:29 | CT_ITS ---
STUDY: CT CERVICAL SPINE WITHOUT CONTRAST REASON FOR EXAM: Female, 50 years old. radiculopathy RADIATION DOSAGE (If Supplied By Facility): CTDIvol = ( 15.46 ) mGy, DLP = ( 275.09 ) mGycm TECHNIQUE: High resolution transaxial imaging was performed without contrast material. Sagittal and coronal images were reconstructed. Individualized dose optimization techniques were used for this CT. COMPARISON: None FINDINGS: Normal craniovertebral junction. Normal anterior atlantoaxial articulation. Normal odontoid process. Normal cervical lordosis. Normal vertebral bodies and posterior osseous elements. C2-3: Normal endplates. Normal disc height and morphology. Normal central canal and intervertebral neuroforamina. C3-4: Normal endplates. Normal disc height and morphology. Normal central canal and intervertebral neuroforamina. C4-5: Normal endplates. Normal disc height and morphology. Left facet arthropathy contributes to foraminal narrowing. C5-6: Anterior spondylosis with posterior disc osteophyte complex causing mild bilateral foraminal and canal narrowing. C6-7: Mild spondylosis. Normal disc height and morphology. Normal central canal and intervertebral neuroforamina. C7-T1: Normal endplates. Normal disc height and morphology. Normal central canal and intervertebral neuroforamina. Normal visualized soft tissue structures. CT/Spine Cervical without Contras IMPRESSION: 1. Degenerative disc disease with canal and foraminal narrowing most conspicuous at C5-C6. Electronically Signed: Jean Carlos Han MD ([place]) at 19:17 EDT , Service support ,
--- NOTE | 2021-04-14 18:31 | EDS_ITS ---
HPI History of Present Illness Chief Complaint: Numb/Ting Informant: patient and spouse/S.O. Onset/Context/Timing Onset: Yesterday Context: Gradual Onset (Worse today) Timing: Continuous Quality and Location: Positive for Right Arm Parasthesia (That are painful and intermittent) and Right Arm Weakness ([place] heavy a couple times today); Negative for Slurred Speech, Expressive Aphasia, Receptive Aphasia and Difficulty with Ambulation Current Severity: Moderate Maximum Severity: Moderate Worsened by: Certain arm movements sometimes such as pushing herself out of a car seat Relieved by: Remaining still Associated Symptoms Associated Symptoms: Negative for Headache, Nausea, Vomiting and Chest Pain Narrative Narrative: Patient had Covid injection in her left arm 2 days ago. Yesterday she started having painful paresthesias in her right upper extremity, mostly in her right upper arm, occasionally shoot down into her hand. She thinks they mostly involve the thumb and little finger but occasionally all of the hand but it seems fairly brief. Her doctor directed her to the ER for further evaluation of these acute symptoms. Her left upper extremity has not been affected. The Covid vaccine is the second one of the series for her, she had a before noon 2 days ago, that night she was having low-grade fevers, chills, myalgias, that resolved late yesterday. She had similar mild symptoms after the first Covid vaccine which was also in the left upper extremity. She denies having any neck or back pain with this that is new, no headache or vision changes or other peripheral neurologic symptoms. [facility] Medical History Anxiety Bipolar disease, chronic Depression Epigastric abdominal pain Frequent headaches GERD (gastroesophageal reflux disease) GERD (gastroesophageal reflux disease) Vertigo Home Medications desog-e.estradiol/e.estradiol 2 mg PO DAILY 08/25/13 [History Last Taken Unknown] lansoprazole 15 mg PO DAILY 08/25/13 [History Last Taken Unknown] quetiapine 50 mg PO DAILY 10/07/18 [History Last Taken Unknown] bupropion HCl 100 mg tablet 100 mg PO DAILY tab 08/09/19 [History Last Taken Unknown] trazodone 50 mg PO QHS 01/03/20 [History Last Taken Unknown] desvenlafaxine succinate [Pristiq] 75 mg PO DAILY 04/14/21 [History Last Taken Unknown] divalproex [Depakote ER] 500 mg PO QHS 04/14/21 [History Last Taken Unknown] lamotrigine [Lamictal] 200 mg PO QHS 04/14/21 [History Last Taken Unknown] prednisone 40 mg PO DAILY #10 tablet 04/14/21 [Rx Last Taken Unknown] Allergy/AdvReac Type Severity Reaction Status Date / Time verapamil Allergy Mild Rash Verified 04/14/21 17:37 amoxicillin [Amoxicillin] Allergy Hives Verified 04/14/21 17:37 sulfamethoxazole Allergy Rash Verified 04/14/21 17:37 [From Septra] trimethoprim [From Septra] Allergy Rash Verified 04/14/21 17:37 diphenhydramine AdvReac Other Verified 04/14/21 17:37 [From Benadryl] olanzapine [From Zyprexa] AdvReac Unknown Verified 04/14/21 17:37 oxcarbazepine AdvReac Unknown Verified 04/14/21 17:37 [From Trileptal] sumatriptan [From Imitrex] AdvReac Other Verified 04/14/21 17:37 zolmitriptan [From Zomig] AdvReac Unknown Verified 04/14/21 17:37 AVALOX AdvReac Unknown Uncoded 04/14/21 17:37 Family History Mother CVA (cerebral vascular accident) Surgical History S/P carpal tunnel release S/P correction of deviated nasal septum S/P hysterectomy S/P laparoscopic cholecystectomy S/P tonsillectomy and adenoidectomy Social History Smoking Status: Never smoker alcohol intake: never ROS ROS ED Constitutional Constitutional ED: Denies chills or fever(s) Eyes Eyes: Denies change in vision or diplopia ENT ENT ED: Denies rhinorrhea or sore throat Cardiovascular Cardiovascular: Denies chest pain or palpitations Respiratory/Chest Respiratory/Chest: Denies cough or dyspnea Gastrointestinal Gastrointestinal: Denies abdominal pain, diarrhea, nausea or vomiting Genitourinary Genitourinary ED: Denies dysuria or hematuria Musculoskeletal Musculoskeletal: Denies back pain or neck pain Integumentary Denies abscess or rash Neurologic Neurologic: Reports as per HPI, paresthesias RUE and weakness; Denies headache(s) or vertigo Psychiatric Psychiatric: Reports anxiety; Denies suicidal thoughts EXAM Physical Exam Const Vital Signs: 04/14/21 17:39 04/14/21 19:21 Temperature 98.3 F Temperature Source Temporal Pulse Rate 96 76 Respiratory Rate 18 16 Blood Pressure 134/116 H 129/82 H Blood Pressure Mean 122 97 Pulse Ox 96 99 Oxygen Delivery Method Room Air Room Air Positive well nourished and well developed General Appearance ED: well developed and NAD HEENT Reports moist mucous membranes normocephalic and atraumatic Eyes PERRL and EOMs intact bilaterally Neck full ROM and supple Resp normal respiratory effort and clear to auscultation bilaterally Cardio regular rate, regular rhythm and no murmurs GI non-tender and non-distended Auscultation: normoactive bowel sounds Palpation: soft Back/Spine no CVA tenderness General Back: other FROM Extremity normal to inspection General Extremety ED: Negative for edema, pulses abnormal or tenderness General Extremity: Negative for edema or pulses abnormal Neuro oriented x3 and CN's II-XII intact bilaterally Neuro Narrative: Decreased sensation and tender paresthesias in the right upper lateral arm consistent with axillary nerve distribution, and nowhere else on the right upper extremity at this time. Sensation otherwise normal including face and other 3 extremities. Sensorium / Orientation: awake and alert Motor Exam: strength 5/5 throughout Skin no rashes or lesions noted and no wounds STROKE Vital Signs/Narrative: Vital Signs Temp Pulse Resp BP Pulse Ox 04/14/21 19:21 76 16 129/82 H 99 04/14/21 17:39 98.3 F 96 18 134/116 H 96 NIHSS Initial: 1a Level of Consciousness: 0 1b LOC Questions (Score 2 if aphasic/stupor): 0 1c LOC Commands (Only score 1st attempt): 0 2 Best Gaze (If aphasic, use reflexive mvmts.): 0 3 Visual: 0 4 Facial Palsy: 0 5 Motor Arm Right (UN = amputation/fusion): 0 5 Motor Arm Left: 0 6 Motor Leg Right: 0 6 Motor Leg Left: 0 7 Limb ataxia (Only + if out of proportion): 0 8 Sensory (Aphasia/stupor=0 or 1, coma=2): 1 9 Best Language: 0 10 Dysarthria (mute, coma=2, intubated=UN): 0 11 Extinction and Inattention (only scored if +): 0 Total Score: 1 MDM MDM MDM Narrative Medical decision making narrative: Given that the patient's paresthesias are painful and more in her right upper arm occasionally shooting down into her hand, my suspicion is that this is radicular in nature. Given the possibility of stroke, we did obtain a CT of the head, it is negative, I do not think she needs to be admitted for a stroke work-up, I think that is much less likely here. Objectively she is not weak in the arm. I have an to have her get a CT of the cervical spine as well because I cannot get a stat MRI at this time, and happens to show focal degenerative disc disease with foraminal narrowing worst at C5-C6, which is exactly where she is having objective findings right now. This lends itself to the radiculopathy theory, and I discussed with her doctor, he agrees with discharge home on a burst of steroids with close outpatient follow-up and the patient is comfortable with that plan. Lab Data Attestation: I reviewed the patient's lab results. Labs: Laboratory Results - last 24 hr 04/14/21 04/14/21 18:40 18:40 WBC 3.8 L RBC 4.65 Hgb 13.5 Hct 41.0 MCV 88.2 MCH 29.0 MCHC 32.9 RDW Std Deviation 38.6 RDW Coeff of Stella 11.9 Plt Count 208 MPV 8.3 Immature Gran % (Auto) 0.300 Neut % (Auto) 25.4 L Lymph % (Auto) 49.2 H [place] % (Auto) 15.2 H Eos % (Auto) 8.9 H Baso % (Auto) 1.0 Absolute Neuts (auto) 1.0 L Absolute Lymphs (auto) 1.88 Nucleated RBC % 0 Differential Comment SCANNED Sodium 139 Potassium 4.1 Chloride 101 Carbon Dioxide 33.0 H Anion Gap 5 BUN 13 Creatinine 0.80 Estim Creat Clear Calc 69.59 Est GFR (MDRD) Af Amer 97 Est GFR (MDRD) Non-Af 80 BUN/Creatinine Ratio 16.2 Glucose 121 H Calcium 9.3 Troponin I 0.044 Radiography Diagnostic Testing: Radiology Impression Cervical Spine CT 04/14/21 18:29 IMPRESSION: 1. Degenerative disc disease with canal and foraminal narrowing most conspicuous at C5-C6. Electronically Signed: Jean Carlos Han MD ([place]) at 19:17 EDT , Service support , Brain CT 04/14/21 18:47 IMPRESSION: No acute intracranial hemorrhage or mass effect. Electronically Signed: Jean Carlos Han MD ([place]) at 19:01 EDT , Service support , ADDENDUM: 04/14/21 1909 IMPRESSION: No acute intracranial hemorrhage or mass effect. N.B. : The above information has been verbally conveyed by Jean Carlos Han MD ([place]) to Dennis Finley on 04/14/2021 19:02:33 (ET). Electronically Signed: Jean Carlos Han MD ([place]) at 19:01 EDT , Service support , EKG Initial EKG: Attestation: I personally reviewed and interpreted this EKG as follows: Interpretation: Sinus Rhythm and No Acute Injury Pattern Comments: Normal EKG Prior EKG tracings: available for review Prior: Unchanged Stroke Documentation Questions Stroke Team Activated: No (Due to timing and unlikely stroke in etiology) Discharge Plan Triage Chief Complaint: Numb/Ting ED Provider: Dennis Finley Dx/Rx/DC Orders Clinical Impression: Cervical radiculopathy, Degenerative disc disease, cervical Instructions: ED Degenerative Disk Disease, ED Radiculopathy, Cervical Prescriptions: New prednisone 20 MG tablet 40 mg PO DAILY Qty: 10 RF: 0 No Action lansoprazole 30 MG capsule 15 mg PO DAILY RF: 0 desog-e.estradiol/e.estradiol 1 EACH tablet 2 mg PO DAILY RF: 0 bupropion HCl 100 mg tablet 100 mg PO DAILY RF: 0 quetiapine 25 MG tablet 50 mg PO DAILY RF: 0 trazodone 50 MG tablet 50 mg PO QHS RF: 0 lamotrigine [Lamictal] 200 mg tablet 200 mg PO QHS RF: 0 divalproex [Depakote ER] 500 mg tablet extended release 24 hr 500 mg PO QHS RF: 0 desvenlafaxine succinate [Pristiq] 25 mg tablet extended release 24 hr 75 mg PO DAILY RF: 0 Primary Care Provider: Sumanth Krause Referrals: Sumanth Krause MD [Primary Care Provider] - (Next week, call for appointment) Disposition Disposition: Home, self care
--- NOTE | 2021-04-14 18:47 | CT_ITS ---
We are attempting to reach an attending provider to discuss findings. An addendum with communication details will be sent when the communication is complete. STUDY: CT HEAD STROKE PROTOCOL W/O CONTRAST INJECTION REASON FOR EXAM: Female, 50 years old. RUE paresthesias RADIATION DOSAGE (If Supplied By Facility): CTDIvol = ( ) mGy, DLP = ( ) mGycm TECHNIQUE: Transaxial CT imaging of the brain was performed without administration of intravenous contrast material. Individualized dose optimization techniques were used for this CT. COMPARISON: 10/07/2018 FINDINGS: Normal soft tissue structures. Normal calvarium. Normal size ventricles and extra-axial spaces for the patient''s age. Normal white matter tracts of the cerebral hemispheres. Normal basal ganglia and thalami. Normal brainstem. Normal cerebellum. There is no intracranial hemorrhage. There are no findings of an acute ischemic infarction. Normal visualized paranasal sinuses. ASPECT score: 10 CT/STROKE Brain/Head without Cont IMPRESSION: No acute intracranial hemorrhage or mass effect. Electronically Signed: Jean Carlos Han MD ([place]) at 19:01 EDT , Service support ,
[2021-04-14 18:52] LABS: Absolute Lymphocyte Count 1.88 X10^3/uL (0.83-4.51); Basophil# 0.04 X10^3/uL; Eosinophil# 0.34 X10^3/uL; Eosinophils% 8.9 % (0-5); Hemoglobin 13.5 g/dL (12.0-15.0); Lymphocyte # 1.88 X10^3/ul (0.83-4.51); Lymphocyte % 49.2 % (19-41); Mean Corp Hgb Conc 32.9 g/dL (32-36); Mean Corpuscular Volume 88.2 fL (81-99); Mean Platelet Vol. 8.3 fl (6.2-12.0); Monocyte# 0.58 X10^3/uL; Monocyte% 15.2 % (0-10); NRBC Flagged by Analyzer 0 % (0-5); Neutrophil # 0.97 X10^3/uL (2.7-7.7); Neutrophil % 25.4 % (47-70); POSITIVE DIFFERENTIAL YES; Platelet Count 208 K/mm3 (150-450); RBC Distribution Width CV 11.9 % (11.6-14.6); RBC Distribution Width SD 38.6 fl (35.1-43.9); Red Blood Count 4.65 M/mm3 (4.2-5.4); White Blood Count 3.8 K/mm3 (4.4-11.0)
[2021-04-14 19:00] LABS: Differential Indicated SCAN CRITERIA MET
[2021-04-14 19:10] LABS: Anion Gap 5 (5-15); BUN 13 mg/dL (7-18); BUN/Creat Ratio 16.2 RATIO (10-20); Calcium,Total 9.3 mg/dL (8.5-10.1); Chloride 101 mmol/L (98-107); EST Glomerular Filtration Rate 80 mL/min (>60); Est Glom Filt Rate - Afr Amer 97 mL/min (>60); Estimated Creatinine Clearance 69.59 ml/min; Glucose 121 mg/dL (74-106); Potassium 4.1 mmol/L (3.5-5.1); Sodium Level 139 mmol/L (136-145)
[2021-04-14 19:19] LABS: Differential Comment SCANNED
[2021-04-14 19:21] VITALS: BP 129/82; PULSE 76; RESP 16; O2SAT 99
[2021-04-14] MEDS: predniSONE 20 MG Tablet 40 MG PO (19:57)
[2021-04-14 19:59] VITALS: BP 129/82; PULSE 72; RESP 16; O2SAT 97
== END 2021-04-14 20:06 | disposition home or self-care (01) ==
PROVIDERS: Emergency Provider Emergency Medicine; PCP Family Medicine
DX: M50.10 Cervical disc disorder with radiculopathy, unspecified cervical region (principal); F31.9 Bipolar disorder, unspecified; F41.9 Anxiety disorder, unspecified; K21.9 Gastro-esophageal reflux disease without esophagitis; Z79.899 Other long term (current) drug therapy
CPT/HCPCS: 70450; 72125; 80048; 84484; 85025; 93005; 99284; A4216

== ENCOUNTER → 2021-04-18 14:38 | Outpatient (CLI) | payer BC, SELFPAY ==
[2021-04-14 17:39] VITALS: BMI 23.6
--- NOTE | 2021-04-18 14:47 | RAD_ITS ---
STUDY: X-RAY - RIGHT SHOULDER REASON FOR EXAM: Female, 50 years old. SHOULDER PAIN TECHNIQUE: For view(s) of the shoulder. COMPARISON: None. FINDINGS: Normal glenohumeral articulation. Normal acromioclavicular joint. Normal acromion. Normal humeral head and visualized proximal humerus. The soft tissue structures are unremarkable. There is no demonstrated fracture. Normal visualized pulmonary apex. RAD/Shoulder min 2 Views IMPRESSION: Normal x-ray examination of the shoulder. Electronically Signed: Pradip Carlos MD at 19:49 EDT , Service support ,
== END ==
PROVIDERS: PCP Family Medicine; Referring Provider Family Medicine; Visit Provider Family Medicine
DX: M25.511 Pain in right shoulder (principal)
CPT/HCPCS: 73030

== ENCOUNTER → 2021-05-15 11:26 | Outpatient (CLI) | payer BC, SELFPAY ==
[2021-05-15 15:42] LABS: ALB/GLOB Ratio 0.8 RATIO (0.9-2.4); AST(SGOT) 16 U/L (15-37); Alanine Aminotransfer ALT/SGPT 15 U/L (13-56); Albumin, Serum 3.4 g/dL (3.2-5.0); Alkaline Phosphatase 84 U/L (45-117); Anion Gap 5 (5-15); BUN 16 mg/dL (7-18); BUN/Creat Ratio 17.4 RATIO (10-20); Chloride 99 mmol/L (98-107); Cholesterol 239 mg/dL (200); Creatinine, Serum 0.92 mg/dL (0.55-1.02); EST Glomerular Filtration Rate 69 mL/min (>60); Est Glom Filt Rate - Afr Amer 83 mL/min (>60); Globulin 4.4 g/dL (2.2-4.2); Glucose 106 mg/dL (74-106); High Density Lipoprotein 89 mg/dL; Potassium 3.8 mmol/L (3.5-5.1); Protein, Total 7.8 g/dL (6.4-8.2); Sodium Level 138 mmol/L (136-145); Triglycerides 124 mg/dL; Very Low Density Lipoprotein 25 mg/dL (5-40)
[2021-05-15 15:57] LABS: Hemoglobin A1c 5.1 % (3.8-5.6)
== END ==
PROVIDERS: PCP Family Medicine; Referring Provider Family Medicine; Visit Provider Family Medicine
DX: R73.09 Other abnormal glucose (principal)
CPT/HCPCS: 36415; 80053; 80061; 83036

== ENCOUNTER 2021-10-07 09:53 | Inpatient (IN) | payer BC, SELFPAY ==
[2021-10-07] VITALS (12 sets, daily range): BP systolic 114–137; BP diastolic 70–86; PULSE 80–91; RESP 11–18; TEMP 36.6–36.9; O2SAT 95–100; BMI 28.5; BMI 23.1
--- NOTE | 2021-10-07 09:58 | EKG12_ITS ---
Test Reason : CP Blood Pressure : / mmHG Vent. Rate : 088 BPM Atrial Rate : 088 BPM P-R Int : 178 ms QRS Dur : 074 ms QT Int : 370 ms P-R-T Axes : 069 063 066 degrees QTc Int : 447 ms Normal sinus rhythm Normal ECG Confirmed by PIPE HERNÁNDEZ, RACHEL ([id number]), marketing editor JAYLON JASON ([id number]) on 10/08/2021 1:53:42 PM Referred By: DRAKE Confirmed By:RACHEL BETANCUR MD
--- NOTE | 2021-10-07 09:58 | RAD_ITS ---
STUDY: X-RAY CHEST REASON FOR EXAM: Female, 51 years old. Substernal chest pain TECHNIQUE: AP and lateral views of the chest. COMPARISON: None. FINDINGS: EKG leads overlie the chest The lungs are clear and expanded. There is no demonstrated pleural abnormality. Normal size heart. Normal mediastinum and isela. Normal visualized pulmonary arteries. Normal visualized aortic arch and descending thoracic aorta. Normal visualized thoracic spine. Normal visualized ribs, clavicles, and shoulders. There is no demonstrated abnormality of the visualized soft tissue structures of the upper abdomen. RAD/Chest PA and Lateral IMPRESSION: Normal x-ray examination of the chest. Electronically Signed: Leland Denis MD at 10:30 EST , Service support ,
--- NOTE | 2021-10-07 09:59 | ED.VIS.CHEST ---
HPI History of Present Illness Chief Complaint: Chest Pain Informant: patient Onset/Context/Timing Onset: Days (Onset of pain 0800) Activity at onset: sudden and rest Timing: Continuous Quality: Positive for Pressure Location: Substernal Current Severity: Mild Maximum Severity: Moderate Worsened By: Breathing Relieved By: Nothing Associated Symptoms: Positive for Nausea and Dyspnea; Negative for Vomiting, Diaphoresis, Cough, Fever, Lightheadedness, Acid Reflux and Palpitations Narrative Narrative: Patient is a middle-aged woman who presents with midsternal chest pressure with pleuritic component associated with nausea and dyspnea that started at 0800 while lying in bed. She has no known history of coronary disease. She has no risk factors for coronary disease. She is Covid recovered and fully vaccinated. She denies history of VTE. She denies leg pain, swelling discoloration. She denies history of reflux, hiatal hernia or peptic ulcer disease. Based on meds and prior records she does have history of reflux. She reports history of depression. She denies black or maroon-colored stool. Prior Similar Symptoms: No CVD Risk Factors: Negative for Hypertension, Diabetes, Hypercholesterolemia, Family History 1' </=55 and Smoking PE Risk Factors: Negative for Recent Travel/Surgery, Recent Immobilization, Prior DVT or PE, Cancer and OCP + Smoking + >/=35 TAD Risk Factors: Negative for Marfan's Syndrome, Hypertension and Family History [facility] Medical History Anxiety Bipolar disease, chronic Depression Epigastric abdominal pain Frequent headaches GERD (gastroesophageal reflux disease) GERD (gastroesophageal reflux disease) Vertigo Home Medications desog-e.estradiol/e.estradiol 2 mg PO DAILY 08/25/13 [History Last Taken Unknown] lansoprazole 15 mg PO DAILY 08/25/13 [History Last Taken Unknown] quetiapine 50 mg PO DAILY 10/07/18 [History Last Taken Unknown] bupropion HCl 100 mg tablet 100 mg PO DAILY tab 08/09/19 [History Last Taken Unknown] trazodone 25 mg PO QHS 01/03/20 [History Last Taken Unknown] desvenlafaxine succinate [Pristiq] 50 mg PO DAILY 04/14/21 [History Last Taken Unknown] divalproex [Depakote ER] 500 mg PO QHS 04/14/21 [History Last Taken Unknown] lamotrigine [Lamictal] 200 mg PO QHS 04/14/21 [History Last Taken Unknown] Allergy/AdvReac Type Severity Reaction Status Date / Time verapamil Allergy Mild Rash Verified 10/07/21 09:59 amoxicillin [Amoxicillin] Allergy Hives Verified 10/07/21 09:59 sulfamethoxazole Allergy Rash Verified 10/07/21 09:59 [From Septra] trimethoprim [From Septra] Allergy Rash Verified 10/07/21 09:59 diphenhydramine AdvReac Other Verified 10/07/21 09:59 [From Benadryl] olanzapine [From Zyprexa] AdvReac Unknown Verified 10/07/21 09:59 oxcarbazepine AdvReac Unknown Verified 10/07/21 09:59 [From Trileptal] sumatriptan [From Imitrex] AdvReac Other Verified 10/07/21 09:59 zolmitriptan [From Zomig] AdvReac Unknown Verified 10/07/21 09:59 AVALOX AdvReac Unknown Uncoded 10/07/21 09:59 Family History Mother CVA (cerebral vascular accident) Surgical History S/P carpal tunnel release S/P correction of deviated nasal septum S/P hysterectomy S/P laparoscopic cholecystectomy S/P tonsillectomy and adenoidectomy Social History (Updated 10/07/21 @ 10:[address] Kali Huff MD) household members: spouse Smoking Status: Never smoker alcohol intake: never substance use type: does not use ROS ROS ED Constitutional Constitutional ED: Denies chills, fever(s), subjective, sweats or weight loss Eyes Eyes: Reports none ENT ENT ED: Denies ear pain, rhinorrhea or sore throat Cardiovascular Cardiovascular: Reports as per HPI; Denies orthopnea or paroxysmal nocturnal dyspnea Respiratory/Chest Respiratory/Chest: Reports dyspnea; Denies cough, dyspnea on exertion, orthopnea, paroxysmal nocturnal dyspnea or sputum Gastrointestinal Gastrointestinal: Reports nausea; Denies abdominal pain, constipation, diarrhea or vomiting Genitourinary Genitourinary ED: Denies dysuria, hematuria or urinary frequency Musculoskeletal Musculoskeletal: Denies arthralgias, back pain, myalgias or neck pain Integumentary Denies Abrasions or rash Neurologic Neurologic: Denies headache(s), paresthesias or weakness Psychiatric Psychiatric: Reports depression; Denies suicidal thoughts Endocrine Endocrinology: Denies polydipsia, polyphagia or polyuria EXAM Physical Exam Const Vital Signs: 10/07/21 09:53 10/07/21 09:57 10/07/21 10:01 Temperature 98.4 F Temperature Source Oral Pulse Rate 88 Respiratory Rate 11 L Respiratory Effort Normal Non-Labored Blood Pressure 137/86 H Blood Pressure Mean 103 Pulse Ox 96 99 Oxygen Delivery Method Room Air Room Air 10/07/21 10:36 10/07/21 11:07 Temperature Temperature Source Pulse Rate 82 82 Respiratory Rate 16 13 Respiratory Effort Blood Pressure 114/81 H 118/82 H Blood Pressure Mean 92 94 Pulse Ox 98 100 Oxygen Delivery Method Room Air Room Air Positive well nourished and well developed General Appearance ED: well developed and NAD; Negative for pallor HEENT Reports moist mucous membranes normocephalic and atraumatic Eyes PERRL and EOMs intact bilaterally General Eye ED: Negative for pale conjunctiva or scleral icterus Neck no lymphadenopathy, supple and no JVD Chest Wall inspection of chest normal and palpation of chest normal Resp normal respiratory effort and clear to auscultation bilaterally Effort and Inspection: respiratory distress Cardio regular rate, regular rhythm, S1 normal heart sound, S2 normal heart sound and no murmurs GI normal to inspection, nondistended, normoactive bowel sounds, soft to palpation, non-tender, non-distended and no masses; Negative for hepatosplenomegaly Back/Spine no CVA tenderness and no thoracic nor lumbar tenderness Neuro oriented x3 and CN's II-XII intact bilaterally Sensorium / Orientation: awake and alert Psych Mood & Affect: depressed Skin no rashes or lesions noted and no wounds General Skin Exam: Negative for jaundice or pallor Heart Score History: Slightly/Non-Suspicious ECG: Normal Age: >45 - <65 years Risk Factors: No Risk Factors Score: 1 MDM MDM MDM Narrative Medical decision making narrative: Patient presents with chest discomfort that occurred at rest that has a pleuritic component as well as pressure component. She states she cannot take a deep breath because it hurts. This may represent PE. D-dimer was obtained. This may also represent atypical presentation for cardiac disease. Noncardiac etiology needs to be entertained i.e. GERD, peptic ulcer disease biliary disease. Work-up was initiated. Since there was consideration for cardiac patient did receive aspirin. Lab Data Attestation: I reviewed the patient's lab results. Lab results narrative: CBC is unremarkable. D-dimer is normal. Basic metabolic panel is normal. Troponin is elevated greater than 120. Since patient was still having chest pressure nitroglycerin was ordered. Nitroglycerin made her chest pressure worse. Since her troponin is greater than 120 hospitalist has been paged for serial enzymes and further work-up. Labs: Laboratory Results - last 24 hr 10/07/21 10/07/21 10/07/21 10:00 10:00 10:00 WBC 4.8 RBC 4.42 Hgb 13.0 Hct 38.6 MCV 87.3 MCH 29.4 MCHC 33.7 RDW Std Deviation 39.3 RDW Coeff of Stella 12.2 Plt Count 258 MPV 9.0 Immature Gran % (Auto) 0.000 Neut % (Auto) 26.1 L Lymph % (Auto) 62.7 H [place] % (Auto) 7.5 Eos % (Auto) 2.7 Baso % (Auto) 1.0 Absolute Neuts (auto) 1.3 L Absolute Lymphs (auto) 3.03 Nucleated RBC % 0 D-Dimer Quant (PE/DVT) <= 0.27 Sodium 138 Potassium 3.9 Chloride 102 Carbon Dioxide 31.0 Anion Gap 5 BUN 12 Creatinine 0.76 Estim Creat Clear Calc 72.44 Est GFR (MDRD) Af Amer 102 Est GFR (MDRD) Non-Af 85 BUN/Creatinine Ratio 15.7 Glucose 94 Calcium 8.6 Troponin I High Sens 122 H* Radiography Chest X-Ray - ED: 2 View and Read by ED Physician (2 view chest x-ray interpreted by me at 1031. Cardiac silhouette size normal. Slight prominence of the hilum. There is no evidence of infiltrate, CHF or effusion. Osseous structures are unremarkable.) Diagnostic Testing: Clinical Impression(s) from Imaging Studies Chest X-Ray 10/07/21 09:58 IMPRESSION: Normal x-ray examination of the chest. Electronically Signed: Leland Denis MD at 10:30 EST , Service support , EKG Initial EKG: Attestation: I personally reviewed and interpreted this EKG as follows: Interpretation: Sinus Rhythm (Normal sinus rhythm with a ventricular rate 88. ID interval 278 ms. QRS duration 74 ms. QT duration 370 ms. [place] is normal. EKG is normal.) Discharge Plan Dx/Rx/DC Orders Clinical Impression: Pressure in chest, Elevated troponin level Disposition Disposition: Acute Care Hospital [facility]
[2021-10-07 10:09] LABS: Absolute Lymphocyte Count 3.03 X10^3/uL (0.83-4.51); Absolute Neutrophil Count 1.3 X10^3/uL (2.0-7.7); Basophil# 0.05 X10^3/uL; Eosinophil# 0.13 X10^3/uL; Eosinophils% 2.7 % (0-5); Hematocrit 38.6 % (37-47); Lymphocyte # 3.03 X10^3/ul (0.83-4.51); Lymphocyte % 62.7 % (19-41); Mean Corp Hgb Conc 33.7 g/dL (32-36); Mean Corpuscular Hgb 29.4 pg (27.0-32.0); Mean Corpuscular Volume 87.3 fL (81-99); Monocyte# 0.36 X10^3/uL; Monocyte% 7.5 % (0-10); NRBC Flagged by Analyzer 0 % (0-5); Neutrophil # 1.26 X10^3/uL (2.7-7.7); Neutrophil % 26.1 % (47-70); Platelet Count 258 K/mm3 (150-450); RBC Distribution Width CV 12.2 % (11.6-14.6); RBC Distribution Width SD 39.3 fl (35.1-43.9); Red Blood Count 4.42 M/mm3 (4.2-5.4); White Blood Count 4.8 K/mm3 (4.4-11.0)
[2021-10-07 10:22] LABS: D-Dimer Quantitative (DVT/PE) <= 0.27 FEU/ug/m (0.27-0.49)
[2021-10-07 10:29] LABS: Anion Gap 5 (5-15); BUN 12 mg/dL (7-18); BUN/Creat Ratio 15.7 RATIO (10-20); Calcium,Total 8.6 mg/dL (8.5-10.1); Chloride 102 mmol/L (98-107); Creatinine, Serum 0.76 mg/dL (0.55-1.02); EST Glomerular Filtration Rate 85 mL/min (>60); Est Glom Filt Rate - Afr Amer 102 mL/min (>60); Estimated Creatinine Clearance 72.44 ml/min; Glucose 94 mg/dL (74-106); Potassium 3.9 mmol/L (3.5-5.1); Sodium Level 138 mmol/L (136-145); Troponin-I HS 122 pg/mL (3.0-54.0)
[2021-10-07] MEDS: Nitroglycerin SL (ED/IMG/CATH) 0.4 MG TABLET SL (10:45)
--- NOTE | 2021-10-07 11:14 | NURSING ---
DR REAL ALCANTARA
[2021-10-07] MEDS: Acetaminophen 500 MG Tablet PO (11:15)
--- NOTE | 2021-10-07 11:20 | NURSING ---
PCNidia NOBLE CP, ELEVATED TROP
--- NOTE | 2021-10-07 11:51 | HP.PCM_ITS ---
Documented by User: JUAN Almaraz 10/07/21 12:05 HPI - General General Date of Admission: 10/07/21 Date of Service: 10/07/21 Chief Complaint: Chest pain HPI Narrative GISELA TURNER, is a 51 F who presents with complaints of chest pain. Patient states that she began having chest pain this morning while lying in bed and it was persistent and did not improve. Patient reports a medical history of anxie ty and bipolar disease however patient does not have a history of any cardiac issues. Patient reports nausea and dyspnea concurrent with chest pain. Patient does report that she had Covid but has fully recovered. Patient denies fever, chills, cough, vomiting, diarrhea, constipation. FORMERLY [facility] Medical History Anxiety Bipolar disease, chronic Depression Epigastric abdominal pain Frequent headaches GERD (gastroesophageal reflux disease) GERD (gastroesophageal reflux disease) Vertigo Home Medications desog-e.estradiol/e.estradiol 2 mg PO DAILY 08/25/13 [History Last Taken Unknown] lansoprazole 15 mg PO DAILY 08/25/13 [History Last Taken Unknown] quetiapine 50 mg PO DAILY 10/07/18 [History Last Taken Unknown] bupropion HCl 100 mg tablet 100 mg PO DAILY tab 08/09/19 [History Last Taken Unknown] trazodone 25 mg PO QHS 01/03/20 [History Last Taken Unknown] desvenlafaxine succinate [Pristiq] 50 mg PO DAILY 04/14/21 [History Last Taken Unknown] divalproex [Depakote ER] 500 mg PO QHS 04/14/21 [History Last Taken Unknown] lamotrigine [Lamictal] 200 mg PO QHS 04/14/21 [History Last Taken Unknown] Allergy/AdvReac Type Severity Reaction Status Date / Time verapamil Allergy Mild Rash Verified 10/07/21 09:59 amoxicillin [Amoxicillin] Allergy Hives Verified 10/07/21 09:59 sulfamethoxazole Allergy Rash Verified 10/07/21 09:59 [From Septra] trimethoprim [From Septra] Allergy Rash Verified 10/07/21 09:59 diphenhydramine AdvReac Other Verified 10/07/21 09:59 [From Benadryl] olanzapine [From Zyprexa] AdvReac Unknown Verified 10/07/21 09:59 oxcarbazepine AdvReac Unknown Verified 10/07/21 09:59 [From Trileptal] sumatriptan [From Imitrex] AdvReac Other Verified 10/07/21 09:59 zolmitriptan [From Zomig] AdvReac Unknown Verified 10/07/21 09:59 AVALOX AdvReac Unknown Uncoded 10/07/21 09:59 Family History (Updated 10/07/21 @ 13:[address] Mook Siu DO) Mother CVA (cerebral vascular accident) Surgical History S/P carpal tunnel release S/P correction of deviated nasal septum S/P hysterectomy S/P laparoscopic cholecystectomy S/P tonsillectomy and adenoidectomy Social History household members: spouse Smoking Status: Never smoker alcohol intake: never substance use type: does not use ROS Constitutional Constitutional: Denies anorexia, chills, fatigue, fever(s), malaise or weakness Cardiovascular Cardiovascular: Reports chest pain, dyspnea and nausea; Denies edema, palpitations or syncope Respiratory/Chest Respiratory/Chest: Denies cough or wheezing Gastrointestinal Gastrointestinal: Denies abdominal pain, constipation, diarrhea or vomiting Genitourinary Genitourinary: Denies dysuria Musculoskeletal Musculoskeletal: Denies back pain, extremity pain, joint pain or joint stiffness Integumentary Integumentary: Denies dry skin Neurologic Neurologic: Denies abnormal gait, abnormal speech, confusion, dizziness or focal weakness Psychiatric Psychiatric: Reports depression; Denies anxiety Endocrine Endocrinology: Denies change in body appearance Hematologic/Lymphatic Hematologic/Lymphatic: Denies anemia, easy bleeding or easy bruising Vital Signs Vital Signs Vital Signs: 10/07/21 09:53 10/07/21 09:57 10/07/21 10:01 Temperature 98.4 F Temperature Source Oral Pulse Rate 88 Respiratory Rate 11 L Respiratory Effort Normal Non-Labored Blood Pressure 137/86 H Blood Pressure Mean 103 Pulse Ox 96 99 Oxygen Delivery Method Room Air Room Air 10/07/21 10:36 10/07/21 10:45 10/07/21 11:07 Temperature Temperature Source Pulse Rate 82 85 82 Respiratory Rate 16 13 Respiratory Effort Blood Pressure 114/81 H 124/76 H 118/82 H Blood Pressure Mean 92 94 Pulse Ox 98 100 Oxygen Delivery Method Room Air Room Air 10/07/21 11:40 Temperature 97.8 F Temperature Source Oral Pulse Rate 80 Respiratory Rate 16 Respiratory Effort Blood Pressure 126/83 H Blood Pressure Mean 97 Pulse Ox 100 Oxygen Delivery Method Weight Weight: 161 lb 2.526 oz Body Mass Index (BMI) 28.5 Physical Exam Const alert and oriented x3 General Appearance: cooperative HEENT normocephalic and head/scalp atraumatic Eyes conjunctivae normal and no scleral icterus Neck supple General: trachea midline Resp normal respiratory effort, normal air movement and clear to auscultation bilaterally Cardio regular rate, regular rhythm, S1 normal heart sound, S2 normal heart sound and peripheral pulses 2+ throughout GI normal to inspection, nondistended, normoactive bowel sounds, soft to palpation and non-tender Extremity normal capillary refill and no clubbing, cyanosis or edema General Extremity: no tenderness to palpation of joints or extremities Skin General Skin Exam: no breakdown and turgor normal Lesions: no lesions Rashes: no rashes Neuro oriented x3, moves all extremities, no focal motor deficits and no sensory deficits noted Motor Exam: Negative for general weakness Psych thought process normal, cooperative and affect normal Appearance: appropriate Results Lab / Micro Data Result Diagrams: 10/07/21 10:00 10/07/21 10:00 Labs: Laboratory Results - last 24 hr 10/07/21 10:00: WBC 4.8, RBC 4.42, Hgb 13.0, Hct 38.6, MCV 87.3, MCH 29.4, MCHC 33.7, RDW Std Deviation 39.3, RDW Coeff of Stella 12.2, Plt Count 258, MPV 9.0, Immature Gran % (Auto) 0.000, Neut % (Auto) 26.1 L, Lymph % (Auto) 62.7 H, Greer % (Auto) 7.5, Eos % (Auto) 2.7, Baso % (Auto) 1.0, Absolute Neuts (auto) 1.3 L, Absolute Lymphs (auto) 3.03, Nucleated RBC % 0 10/07/21 10:00: D-Dimer Quant (PE/DVT) <= 0.27 10/07/21 10:00: Sodium 138, Potassium 3.9, Chloride 102, Carbon Dioxide 31.0, Anion Gap 5, BUN 12, Creatinine 0.76, Estim Creat Clear Calc 72.44, Est GFR (MDRD) Af Amer 102, Est GFR (MDRD) Non-Af 85, BUN/Creatinine Ratio 15.7, Glucose 94, Calcium 8.6, Troponin I High Sens 122 H* Radiology Impression Chest X-Ray 10/07/21 09:58 IMPRESSION: Normal x-ray examination of the chest. Electronically Signed: Leland Denis MD at 10:30 EST , Service support , Assessment & Plan Assessment/Plan (1) Elevated troponin level: (2) Pressure in chest: (3) Chest pain at rest: PLAN: 1. Chest pain with elevated troponins -Admit to PCU for cardiac monitoring -Consult cardiology, case discussed with Dr. Hendricks -Cardiac diet ordered, patient will be n.p.o. at midnight for pending cardiac evaluation and possible cardiac catheterization -Lipid panel ordered for a.m. -PT/INR, PTT ordered -Heparin drip initiated -Aspirin ordered for a.m. -Will trend cardiac enzymes -As needed nitro ordered -Vital signs per protocol, currently stable 2. Bipolar disorder and anxiety -Stable -Continue patient's current medication regimen including Pristiq, Depakote, Lamictal, Wellbutrin, Seroquel, trazodone. DVT prophylaxis-patient on heparin drip Documented by User: Dr. Mook Siu DO 10/07/21 13:53 HPI - General General Date of Admission: 10/07/21 Date of Service: 10/07/21 Chief Complaint: chest pain HPI Narrative Developed midsternal chest pain that went up to her jaw. Sent to the emergency room troponins were elevated. Hospital service was contacted for admission. Patient has never had chest pain like this before. FORMERLY [facility] Medical History Anxiety Bipolar disease, chronic Depression Epigastric abdominal pain Frequent headaches GERD (gastroesophageal reflux disease) GERD (gastroesophageal reflux disease) Vertigo Home Medications desog-e.estradiol/e.estradiol 2 mg PO DAILY 08/25/13 [History Last Taken Unknown] lansoprazole 15 mg PO DAILY 08/25/13 [History Last Taken Unknown] quetiapine 50 mg PO DAILY 10/07/18 [History Last Taken Unknown] bupropion HCl 100 mg tablet 100 mg PO DAILY tab 08/09/19 [History Last Taken Unknown] trazodone 25 mg PO QHS 01/03/20 [History Last Taken Unknown] desvenlafaxine succinate [Pristiq] 50 mg PO DAILY 04/14/21 [History Last Taken Unknown] divalproex [Depakote ER] 500 mg PO QHS 04/14/21 [History Last Taken Unknown] lamotrigine [Lamictal] 200 mg PO QHS 04/14/21 [History Last Taken Unknown] Allergy/AdvReac Type Severity Reaction Status Date / Time verapamil Allergy Mild Rash Verified 10/07/21 09:59 amoxicillin [Amoxicillin] Allergy Hives Verified 10/07/21 09:59 sulfamethoxazole Allergy Rash Verified 10/07/21 09:59 [From Septra] trimethoprim [From Septra] Allergy Rash Verified 10/07/21 09:59 diphenhydramine AdvReac Other Verified 10/07/21 09:59 [From Benadryl] olanzapine [From Zyprexa] AdvReac Unknown Verified 10/07/21 09:59 oxcarbazepine AdvReac Unknown Verified 10/07/21 09:59 [From Trileptal] sumatriptan [From Imitrex] AdvReac Other Verified 10/07/21 09:59 zolmitriptan [From Zomig] AdvReac Unknown Verified 10/07/21 09:59 AVALOX AdvReac Unknown Uncoded 10/07/21 09:59 Family History (Updated 10/07/21 @ 13:[address] Mook Siu DO) Mother CVA (cerebral vascular accident) Surgical History S/P carpal tunnel release S/P correction of deviated nasal septum S/P hysterectomy S/P laparoscopic cholecystectomy S/P tonsillectomy and adenoidectomy Social History household members: spouse Smoking Status: Never smoker alcohol intake: never substance use type: does not use ROS ROS Narrative Some nausea. All review of systems were negative except as mentioned above in the history of present illness and the other review of systems. Physical Exam Resp normal respiratory effort, normal air movement and clear to auscultation bilaterally Cardio regular rate, regular rhythm, S1 normal heart sound and S2 normal heart sound GI normal to inspection, nondistended, normoactive bowel sounds, soft to palpation, non-tender and non-distended Extremity no clubbing, cyanosis or edema Results Lab / Micro Data Attestation: I reviewed the patient's lab results. Result Diagrams: 10/07/21 10:00 10/07/21 10:00 EKG Initial EKG: Attestation: I personally reviewed and interpreted this EKG as follows: Prior EKG tracings: available for review EKG Rhythm Intrepretation: Sinus Rhythm Assessment & Plan Assessment/Plan (1) NSTEMI, initial episode of care: PLAN: Patient seen and examined independently. Data and vitals reviewed. I agree with the above note by the nurse practitioner. 1. Non-STEMI Start heparin drip Consult cardiology Discussed with Dr. Hendricks and plan for left heart catheterization on the Charges/Coding Visit Charges Inpatient E&M: 59496 Init Hosp L2
--- NOTE | 2021-10-07 12:13 | EKG12_ITS ---
Test Reason : AM EKG Blood Pressure : / mmHG Vent. Rate : 082 BPM Atrial Rate : 082 BPM P-R Int : 168 ms QRS Dur : 072 ms QT Int : 388 ms P-R-T Axes : 059 051 065 degrees QTc Int : 453 ms Normal sinus rhythm Normal ECG When compared with ECG of 07-OCT-2021 14:42, MANUAL COMPARISON REQUIRED, DATA IS UNCONFIRMED Confirmed by PIPE HERNÁNDEZ, RACHEL ([id number]), mapping editor JAYLON JASON ([id number]) on 10/09/2021 1:53:29 PM Referred By: REAL Confirmed By:RACHEL BETANCUR MD
--- NOTE | 2021-10-07 12:13 | CT_ITS ---
HISTORY: Substernal chest pain r/o PE/aortic dissection. TECHNIQUE: Helically acquired images of the chest following IV contrast as per pulmonary angiogram protocol with 2D and 3D reconstructions. A radiation dose optimization technique was used for this scan. IV Contrast dosage and agent: 100 mL [id number]. # of images incl. paperwork: [id number]. COMPARISON: XR same day. FINDINGS: CENTRAL AIRWAYS: Patent. LUNGS: Multiple centrally calcified nodules bilaterally. 5 mm noncalcified right lower lobe nodules adjacent to the diaphragm. PLEURA: No pneumothorax or pleural effusion. PULMONARY ARTERIES: No filling defect. HEART/PERICARDIUM: Heart within normal limits in size. No significant pericardial effusion. AORTA/GREAT VESSELS: No aortic aneurysm or dissection flap. Mild atherosclerosis. MEDIASTINUM/JOE: Mildly enlarged lymph nodes in the mediastinum measuring up to 1.4 cm AP window and 1.5 cm right hilar. OSSEOUS STRUCTURES: Intact. UPPER ABDOMEN: Hepatic steatosis. CT/CTA Chest W/WO Contrast IMPRESSION: No evidence for pulmonary embolism, aortic aneurysm, or aortic dissection. Multiple calcified and noncalcified pulmonary nodules. Noncalcified pulmonary nodules measuring up to 5 mm in the right lower lobe with mild right hilar and mediastinal lymphadenopathy. Recommend follow-up. Individualized dose optimization techniques were used for this CT. at 1412 Reported and signed by: Maryam Guadarrama MD Electronically Signed: Maryam Guadarrama MD at 14:11 EST Tel , Service support ,
[2021-10-07 12:27] LABS: Partial Thromboplast Time 29.1 Seconds (24.1-36.2); Prothrombin Time (Protime)PT. 12.5 SECONDS (11.7-14.9)
[2021-10-07] MEDS: Heparin Injection (Vial) 5,000 UNIT/ML VIAL 4000 UNIT IV (13:01)
[2021-10-07] MEDS: HEPARIN/D5w 25,000 UNITS 25,000 UNITS/250 ML IV.SOLN. 8 UNITS IV (13:02)
[2021-10-07] MEDS: Morphine 2 MG/ML Syringe IV ×2 (13:03→17:04)
[2021-10-07] MEDS: 0.9% Saline Lock 10 ML Syringe IV (13:03)
--- NOTE | 2021-10-07 13:13 | PCM.CONS.C ---
Assessment & Plan Assessment/Plan (1) Chest pain at rest: (2) Elevated troponin level: PLAN: 51-year-old patient presented with symptoms of retrosternal chest pain with some radiation to the left arm Patient with history of anxiety, depression and chronic bipolar disorder Has also history of gastric reflux disease and cervical spine degenerative disc disease. Also patient has significant family history of CAD Cardiac assessment recommendation; 1. Elevated cardiac biomarkers/high sensitive troponin with a clinical diagnosis of non-ST elevation [place], will have a series of cardiac biomarkers/high sensitive troponin Patient on medical therapy with heparin aspirin, will add a statin 2. We will evaluate with CT chest 3. Echocardiogram 4. We will keep n.p.o. from midnight with the plan of cardiac catheterization in a.m. HPI Consult Data Date of Consult: 10/10/21 HPI Narrative Reason for Consultation: Chest pain/non-STEMI. HPI Narrative: GISELA TURNER, is a 51 F who presents [facility] Medical History (Updated 10/08/21 @ 12:25 by Maria Teresa Agudelo) Anxiety Bipolar disease, chronic Cervical radiculopathy COVID-19 virus detected (08/29/20) Degenerative disc disease, cervical Depression Epigastric abdominal pain Frequent headaches GERD (gastroesophageal reflux disease) Nonobstructive atherosclerosis of coronary artery Vertigo Home Medications desog-e.estradiol/e.estradiol 2 mg PO DAILY 08/25/13 [History Last Taken Unknown] lansoprazole 15 mg PO DAILY 08/25/13 [History Last Taken Unknown] quetiapine 50 mg PO DAILY 10/07/18 [History Last Taken Unknown] bupropion HCl 100 mg tablet 100 mg PO DAILY tab 08/09/19 [History Last Taken Unknown] trazodone 25 mg PO QHS 01/03/20 [History Last Taken Unknown] desvenlafaxine succinate [Pristiq] 50 mg PO DAILY 04/14/21 [History Last Taken Unknown] divalproex [Depakote ER] 500 mg PO QHS 04/14/21 [History Last Taken Unknown] lamotrigine [Lamictal] 200 mg PO QHS 04/14/21 [History Last Taken Unknown] aspirin [Adult Aspirin Regimen] 81 mg PO DAILY #30 tab 10/08/21 [Rx Last Taken Unknown] atorvastatin 20 mg PO DAILY #30 tab 10/08/21 [Rx Last Taken Unknown] Allergy/AdvReac Type Severity Reaction Status Date / Time verapamil Allergy Mild Rash Verified 10/07/21 09:59 amoxicillin [Amoxicillin] Allergy Hives Verified 10/07/21 09:59 sulfamethoxazole Allergy Rash Verified 10/07/21 09:59 [From Septra] trimethoprim [From Septra] Allergy Rash Verified 10/07/21 09:59 diphenhydramine AdvReac Other Verified 10/07/21 09:59 [From Benadryl] olanzapine [From Zyprexa] AdvReac Unknown Verified 10/07/21 09:59 oxcarbazepine AdvReac Unknown Verified 10/07/21 09:59 [From Trileptal] sumatriptan [From Imitrex] AdvReac Other Verified 10/07/21 09:59 zolmitriptan [From Zomig] AdvReac Unknown Verified 10/07/21 09:59 AVALOX AdvReac Unknown Uncoded 10/07/21 09:59 Family History (Updated 10/07/21 @ 13:[address] Mook Siu DO) Mother CVA (cerebral vascular accident) Surgical History (Updated 10/08/21 @ 12:24 by Maria Teresa Agudelo) History of carpal tunnel release History of cholecystectomy History of hysterectomy History of left heart catheterization (10/08/21) History of nasal septoplasty History of tonsillectomy and adenoidectomy Social History household members: spouse Smoking Status: Never smoker alcohol intake: never substance use type: does not use Physical Exam Narrative She is seen and evaluated today at bedside along with the nursing staff. Alert orientated x3 Still having some retrosternal chest discomfort Cardiovascular exam S1-S2 regular, no murmur no systolic or diastolic murmur, no pericardial rub Chest examination clear to auscultation Examination abdomen soft Examination lower extremity no clubbing no cyanosis no lower extremity edema Central nervous system exam no focal neurological deficit noted. Risk Stratification Risk Stratification Applicable: No Objective Data Vital Signs: Vital Signs Temp Pulse Resp BP Pulse Ox 97.8 F 80 16 136/83 H 95 10/07/21 11:59 10/07/21 11:59 10/07/21 11:59 10/07/21 11:59 10/07/21 11:59 Oxygen Flow Rate (L/min) 2 Oxygen Delivery Method Nasal Cannula Weight: 130 lb 4.691 oz Body Mass Index (BMI) 23.1 Lab / Micro Data Result Diagrams: 10/07/21 10:00 10/07/21 10:00 Labs: Laboratory Results - last 24 hr 10/07/21 10:00: WBC 4.8, RBC 4.42, Hgb 13.0, Hct 38.6, MCV 87.3, MCH 29.4, MCHC 33.7, RDW Std Deviation 39.3, RDW Coeff of Stella 12.2, Plt Count 258, MPV 9.0, Immature Gran % (Auto) 0.000, Neut % (Auto) 26.1 L, Lymph % (Auto) 62.7 H, Garland % (Auto) 7.5, Eos % (Auto) 2.7, Baso % (Auto) 1.0, Absolute Neuts (auto) 1.3 L, Absolute Lymphs (auto) 3.03, Nucleated RBC % 0 10/07/21 10:00: D-Dimer Quant (PE/DVT) <= 0.27 10/07/21 10:00: Sodium 138, Potassium 3.9, Chloride 102, Carbon Dioxide 31.0, Anion Gap 5, BUN 12, Creatinine 0.76, Estim Creat Clear Calc 72.44, Est GFR (MDRD) Af Amer 102, Est GFR (MDRD) Non-Af 85, BUN/Creatinine Ratio 15.7, Glucose 94, Calcium 8.6, Troponin I High Sens 122 H* 10/07/21 12:00: PT 12.5, INR 1.0, APTT 29.1 Cardiology Labs/Tests 10/07/21 10:00: WBC 4.8, RBC 4.42, Hgb 13.0, Hct 38.6, MCV 87.3, MCH 29.4, MCHC 33.7, Plt Count 258, MPV 9.0, Immature Gran % (Auto) 0.000, Neut % (Auto) 26.1 L, Lymph % (Auto) 62.7 H, Garland % (Auto) 7.5, Eos % (Auto) 2.7, Baso % (Auto) 1.0, Absolute Neuts (auto) 1.3 L, Nucleated RBC % 0 10/07/21 10:00: D-Dimer Quant (PE/DVT) <= 0.27 10/07/21 10:00: Sodium 138, Potassium 3.9, Chloride 102, Carbon Dioxide 31.0, Anion Gap 5, BUN 12, Creatinine 0.76, Est GFR (MDRD) Af Amer 102, Est GFR (MDRD) Non-Af 85, BUN/Creatinine Ratio 15.7, Glucose 94, Calcium 8.6 10/07/21 12:00: PT 12.5, INR 1.0, APTT 29.1 Rhythm: Normal sinus rhythm EKG: Normal sinus rhythm, mild ST flattening, noted in the lateral lead V5 V6 Radiography Diagnostic Testing: Radiology Impression Chest X-Ray 10/07/21 09:58 IMPRESSION: Normal x-ray examination of the chest. Electronically Signed: Leland Denis MD at 10:30 EST , Service support ,
[2021-10-07 13:39] LABS: Troponin-I HS 112 pg/mL (3.0-54.0)
--- NOTE | 2021-10-07 13:43 | ECHOD_ITS ---
Reason For Study: Chest Pain Procedure This was a 2D Doppler, Color Flow transthoracic echocardiogram. Exam performed portable in patient room. Left Ventricle Normal LV size. Left ventricular systolic function is normal. The estimated ejection fraction is 60 %. Stage 2 diastolic dysfunction. No regional wall motion abnormalities noted. Right Ventricle Normal RV size. Normal systolic function. Atria Normal left atrium. Normal right atrium. Mitral Valve Normal mitral valve. Tricuspid Valve Normal tricuspid valve. Mild (1+) tricuspid valve insufficiency. Pulmonary artery systolic pressure is 28 mmHg. Aortic Valve Normal aortic valve. Trisinus/trileaflet aortic valve. Pulmonic Valve Normal pulmonic valve. Great Vessels Normal aortic root. The pulmonary artery is normal size. Normal inferior vena cava. Pericardium/Pleural No pericardial effusion. MMode/2D Measurements & Calculations LVIDd: 3.8 cm IVSd: 0.83 cm Ao root diam: 2.9 cm LVIDs: 2.3 cm LVPWd: 0.80 cm RVDd: 3.3 cm FS: 39.4 % LAV(MOD-bp): 20.7 ml LVAd ap4: 18.9 cm2 SV(MOD-sp4): 27.5 ml LAV(MOD-bp) Indexed: 12.8 ml/m2 LVLd ap4: 7.0 cm LAV(MOD-sp2): 18.8 ml EDV(MOD-sp4): 42.1 ml LAV(MOD-sp4): 22.2 ml EDV(sp4-el): 43.6 ml LVAs ap4: 9.7 cm2 LVLs ap4: 5.6 cm ESV(MOD-sp4): 14.5 ml ESV(sp4-el): 14.1 ml EF(MOD-sp4): 65.5 % EF(sp4-el): 67.8 % SV(sp4-el): 29.6 ml LA A4 area: 10.6 cm2 LA dimension(2D): 3.3 cm RA A4 area: 9.9 cm2 Doppler Measurements & Calculations MV E max peter: 87.9 cm/sec Lat Peak E' Peter: 11.9 cm/sec Med Peak E' Peter: 11.6 cm/sec MV A max peter: 65.7 cm/sec E/E' lat: 7.4 E/E' med: 7.6 MV E/A: 1.3 Ao V2 max: 126.8 cm/sec LV V1 max: 117.8 cm/sec PA V2 max: 98.1 cm/sec Ao max P.4 mmHg LV V1 max P.5 mmHg Ao V2 mean: 89.1 cm/sec Ao mean P.4 mmHg Ao V2 VTI: 26.3 cm TR max peter: 245.3 cm/sec TR max P.1 mmHg ECHO/Echo Complete Interpretation Summary Normal LV size. Left ventricular systolic function is normal. The estimated ejection fraction is 60 %. Stage 2 diastolic dysfunction. Pulmonary artery systolic pressure is 28 mmHg. Ordering Physician: Beatriz Hendricks Referring Physician: Sumanth Krause Performed By: Sherrie Mendiola, FILOMENA, RVT
[2021-10-07 17:15] LABS: Troponin-I HS 113 pg/mL (3.0-54.0)
[2021-10-07] MEDS: Ondansetron 4 MG/2 ML Vial IV (17:43)
[2021-10-07 19:08] LABS: Partial Thromboplast Time 120.1 Seconds (24.1-36.2)
[2021-10-07] MEDS: Divalproex (ER) 500 MG Tablet PO (21:24)
[2021-10-07] MEDS: traZODone 50 MG Tablet 25 MG PO (21:24)
[2021-10-07] MEDS: lamoTRIgine 100 MG Tablet 200 MG PO (21:26)
[2021-10-07] MEDS: Atorvastatin Calcium 40 MG Tablet PO (21:32)
[2021-10-07] MEDS: QUEtiapine 25 MG Tablet 50 MG PO (22:04)
[2021-10-07] MEDS: proCHLORPERazine 10 MG/2 ML Vial IV (23:32)
[2021-10-08] VITALS (12 sets, daily range): BP systolic 100–117; BP diastolic 63–74; PULSE 63–86; RESP 12–18; TEMP 36.3–36.7; O2SAT 94–100
[2021-10-08 03:56] LABS: Partial Thromboplast Time 42.3 Seconds (24.1-36.2)
[2021-10-08 04:17] LABS: Cholesterol 221 mg/dL (200); High Density Lipoprotein 82 mg/dL; Triglycerides 189 mg/dL; Very Low Density Lipoprotein 38 mg/dL (5-40)
[2021-10-08] MEDS: Heparin Injection (Vial) 5,000 UNIT/ML VIAL IV (04:17)
[2021-10-08] MEDS: 0.9% Normal Saline 1,000 ML 15 ML IV (05:45)
--- NOTE | 2021-10-08 05:55 | EKG12_ITS ---
Test Reason : C.P. ADMIT Blood Pressure : / mmHG Vent. Rate : 081 BPM Atrial Rate : 081 BPM P-R Int : 176 ms QRS Dur : 074 ms QT Int : 392 ms P-R-T Axes : 065 037 068 degrees QTc Int : 455 ms Normal sinus rhythm Normal ECG When compared with ECG of 14-APR-2021 18:42, No significant change was found Confirmed by PIPE HERNÁNDEZ, RACHEL ([id number]), news copy editor JAYLON JASON ([id number]) on 10/09/2021 1:54:02 PM Referred By: REAL Confirmed By:RACHEL BETANCUR MD
[2021-10-08] MEDS: Aspirin E.C. 81 MG Tablet PO (06:45)
--- NOTE | 2021-10-08 07:42 | PCS.PANDOC ---
PANDEMIC DOCUMENTATION INITIATED: Date: 07/02/2021 Time: 190
--- NOTE | 2021-10-08 08:03 | PCM.PN.CARD ---
Subjective Subjective Seen and evaluated and appears to be doing well. Objective Data Vital Signs: Vital Signs Temp Pulse Resp BP Pulse Ox 98.0 F 86 17 102/65 98 10/08/21 06:50 10/08/21 06:50 10/08/21 06:50 10/08/21 06:50 10/08/21 06:50 Oxygen Flow Rate (L/min) 2 Oxygen Delivery Method Nasal Cannula Weight: 130 lb 4.691 oz Body Mass Index (BMI) 23.1 Intake & Output: Intake and Output for Last 24 Hours 10/06/21 10/07/21 10/08/21 23:59 23:59 23:59 Intake Total 49.6 / 49.6 35.08 / 35.08 Balance 49.6 / 49.6 35.08 / 35.08 Lab / Micro Data Result Diagrams: 10/07/21 10:00 10/07/21 10:00 Labs: Laboratory Results - last 24 hr 10/07/21 10:00: WBC 4.8, RBC 4.42, Hgb 13.0, Hct 38.6, MCV 87.3, MCH 29.4, MCHC 33.7, RDW Std Deviation 39.3, RDW Coeff of Stella 12.2, Plt Count 258, MPV 9.0, Immature Gran % (Auto) 0.000, Neut % (Auto) 26.1 L, Lymph % (Auto) 62.7 H, [place] % (Auto) 7.5, Eos % (Auto) 2.7, Baso % (Auto) 1.0, Absolute Neuts (auto) 1.3 L, Absolute Lymphs (auto) 3.03, Nucleated RBC % 0 10/07/21 10:00: D-Dimer Quant (PE/DVT) <= 0.27 10/07/21 10:00: Sodium 138, Potassium 3.9, Chloride 102, Carbon Dioxide 31.0, Anion Gap 5, BUN 12, Creatinine 0.76, Estim Creat Clear Calc 72.44, Est GFR (MDRD) Af Amer 102, Est GFR (MDRD) Non-Af 85, BUN/Creatinine Ratio 15.7, Glucose 94, Calcium 8.6, Troponin I High Sens 122 H* 10/07/21 12:00: PT 12.5, INR 1.0, APTT 29.1 10/07/21 12:56: Troponin I High Sens 112 H 10/07/21 16:40: Troponin I High Sens 113 H 10/07/21 18:40: APTT 120.1 H* 10/08/21 03:30: Triglycerides 189, Cholesterol 221 H, LDL Cholesterol 101, VLDL Cholesterol 38, HDL Cholesterol 82 10/08/21 03:30: APTT 42.3 H Cardiology Labs/Tests 10/07/21 10:00: WBC 4.8, RBC 4.42, Hgb 13.0, Hct 38.6, MCV 87.3, MCH 29.4, MCHC 33.7, Plt Count 258, MPV 9.0, Immature Gran % (Auto) 0.000, Neut % (Auto) 26.1 L, Lymph % (Auto) 62.7 H, [place] % (Auto) 7.5, Eos % (Auto) 2.7, Baso % (Auto) 1.0, Absolute Neuts (auto) 1.3 L, Nucleated RBC % 0 10/07/21 10:00: D-Dimer Quant (PE/DVT) <= 0.27 10/07/21 10:00: Sodium 138, Potassium 3.9, Chloride 102, Carbon Dioxide 31.0, Anion Gap 5, BUN 12, Creatinine 0.76, Est GFR (MDRD) Af Amer 102, Est GFR (MDRD) Non-Af 85, BUN/Creatinine Ratio 15.7, Glucose 94, Calcium 8.6 10/07/21 12:00: PT 12.5, INR 1.0, APTT 29.1 10/07/21 18:40: APTT 120.1 H* 10/08/21 03:30: Triglycerides 189, Cholesterol 221 H, LDL Cholesterol 101, VLDL Cholesterol 38, HDL Cholesterol 82 10/08/21 03:30: APTT 42.3 H Rhythm: EKG: ECHO: Stress Test: Cardiac Cath: PCI: CT Surgery: Holter monitor: EPS: PPM: CXR: Chest CT Scan: Radiography Diagnostic Testing: Radiology Impression Chest X-Ray 10/07/21 09:58 IMPRESSION: Normal x-ray examination of the chest. Electronically Signed: Leland Denis MD at 10:30 EST , Service support , Chest CTA 10/07/21 12:13 IMPRESSION: No evidence for pulmonary embolism, aortic aneurysm, or aortic dissection. Multiple calcified and noncalcified pulmonary nodules. Noncalcified pulmonary nodules measuring up to 5 mm in the right lower lobe with mild right hilar and mediastinal lymphadenopathy. Recommend follow-up. Individualized dose optimization techniques were used for this CT. at 1412 Reported and signed by: Maryam Guadarrama MD Electronically Signed: Maryam Guadarrama MD at 14:11 EST Tel , Service support , Physical Exam Const alert, oriented x3 and no apparent distress General Appearance: cooperative HEENT hearing grossly normal bilaterally Head and Scalp: atraumatic Eyes EOMs intact bilaterally Neck General: normal visual inspection Chest inspection of chest normal and palpation of chest normal Resp normal respiratory effort Auscultation: clear to auscultation bilaterally Cardio regular rate, regular rhythm, S1 normal heart sound and S2 normal heart sound Jugular Venous Distention: JVD GI normal to inspection, nondistended, normoactive bowel sounds Extremity normal capillary refill and no pedal edema Peripheral Pulses: Yes pulses 2+ throughout and femoral pulses present Skin no rashes or lesions noted Neuro oriented x3 and CN's II-XII intact bilaterally Psych Appearance: grossly normal and appropriate Assessment & Plan Assessment/Plan (1) NSTEMI, initial episode of care: PLAN: She did have mild elevation of her cardiac enzymes. She underwent cardiac catheterization today which demonstrated nonobstructive coronary arteries with intramyocardial bridging of the LAD. Would recommend medical therapy. Would also recommend risk factor modification. Patient can be discharged for outpatient follow-up with primary physician.
--- NOTE | 2021-10-08 08:11 | CL.D_ITS ---
Patient Name: GISELA TURNER Study Date: 10/08/2021 Performing: Germain Soares MD Ht: 62.99 inches 160 cm : 1970 Wt: 130.07 lbs 59 kg Age: 51 Gender: female BSA: 1.61 PROCEDURE(S) PERFORMED [id number] CLINICAL PROFILE AND INDICATIONS Indications: Suspected CAD Heart Failure: None Stress/Imaging Stress/Image Study Performed: No CONCLUSIONS Normal coronary arteries Intramyocardial bridging of the LAD. RECOMMENDATIONS Medical therapy DESCRIPTION OF PROCEDURE The patient arrived to the procedure lab. The risks and benefits of the procedure as well as a full d escription of our services here and current unavailability of surgical backup were fully explained to the patient and/or their significant other prior to the catheterization. The Timeout was completed, verifying the correct patient and procedure. The patient's procedural site was prepped and draped in the usual fashion. Local anesthetic was given subcutaneously to right radial region with Lidocaine 2% . Using a modified Seldinger technique, arterial access was obtained via the right radial artery, a 6 Fr sheath was inserted. Right Coronary Artery selective angiography was then performed in multiple v iews using a 5 Fr. 4.0 Welch catheter. Left Coronary Artery selective angiography was performed in mu ltiple views using a 5 Fr. 4.0 Welch catheter.The arterial sheath was pulled and a TR Band was applie d for hemostasis CORONARY ANGIOGRAPHY DOMINANCE: Right Dominant LEFT HEART ASSESSMENT Left Ventricular Ejection Fraction: by Echo 55 % LEFT MAIN: Angiographically normal LEFT ANTERIOR DESCENDING ARTERY: Moderate luminal irregularities up to 50% MID LAD: Intramyocardial bridging CIRCUMFLEX ARTERY: No significant disease noted RIGHT CORONARY ARTERY: No significant disease noted COMPLICATIONS No Complications PROCEDURE MEDICATIONS Versed 1 mg IV Fentanyl 50 mcg IV Fentanyl 25 mcg IV Oxygen: 2 L/min via nasal cannula Nitro 50 mcg IC 10/08/2021 07:58:27 Solu-medrol 125 mg IV 10/08/2021 08:06:43 SUMMARY OF HEMODYNAMIC DATA Time AIR REST ECG 07:29:05 AO 118/69 (87) SA 07:44:55 Signed By Germain Soares MD On 10/08/2021 08:09:54 Germain Soares MD
[2021-10-08] MEDS: 0.9% Normal Saline 1,000 ML 75 ML IV (08:43)
--- NOTE | 2021-10-08 10:23 | PCM.DC ---
Discharge Instructions Diet Discharge Diet: No restrictions Activity Discharge Activity: Return to Normal Activity Weight Bearing Status: Weight bearing as tolerated Dressing / Incision Call your doctor if you observe: Fever of 101 or Higher, Numbness or Tingling, Shortness of breath, Dizziness, Chest pain, Increased palpitations (irregular heartbeat) and Calf discomfort Follow Up Care Please Follow Up With: Primary care provider When: Within the next two weeks. Test Results: Test results from this visit will be discussed in further detail at your follow-up appointment, if applicable. Discharge Plan Admission Admit Date/Time: 10/07/21 11:30 Attending Provider: Marie Munguia Primary Care Provider: Sumanth Krause Consulting Providers: Beatriz Hendricks Discharge Orders/Prescriptions Prescriptions: New atorvastatin 20 mg tablet 20 mg PO DAILY Qty: 30 RF: 1 aspirin [Adult Aspirin Regimen] 81 mg tablet,delayed release (DR/EC) 81 mg PO DAILY Qty: 30 RF: 1 Continued lansoprazole 30 MG capsule 15 mg PO DAILY RF: 0 desog-e.estradiol/e.estradiol 1 EACH tablet 2 mg PO DAILY RF: 0 bupropion HCl 100 mg tablet 100 mg PO DAILY RF: 0 quetiapine 25 MG tablet 50 mg PO DAILY RF: 0 trazodone 50 MG tablet 25 mg PO QHS RF: 0 lamotrigine [Lamictal] 200 mg tablet 200 mg PO QHS RF: 0 divalproex [Depakote ER] 500 mg tablet extended release 24 hr 500 mg PO QHS RF: 0 desvenlafaxine succinate [Pristiq] 25 mg tablet extended release 24 hr 50 mg PO DAILY RF: 0 Referrals / Follow Up: Sumanth Krause MD [Primary Care Provider] - Within 2 Weeks Disposition Disposition (needs filled in before D/C Order can be placed): Home, Self Care
--- NOTE | 2021-10-08 10:50 | PHA.DC.MC ---
Pharmacy Service has performed discharge medication reconciliation and counseling for this patient. 1. ASPIRIN 81MG PO DAILY 2. ATORVASTATIN 20MG PO DAILY The patient's discharge medication list was reviewed for discrepancies and discrepancies were resolved. Home Medications desog-e.estradiol/e.estradiol 2 mg PO DAILY 08/25/13 lansoprazole 15 mg PO DAILY 08/25/13 quetiapine 50 mg PO DAILY 10/07/18 bupropion HCl 100 mg tablet 100 mg PO DAILY tab 08/09/19 trazodone 25 mg PO QHS 01/03/20 desvenlafaxine succinate [Pristiq] 50 mg PO DAILY 04/14/21 divalproex [Depakote ER] 500 mg PO QHS 04/14/21 lamotrigine [Lamictal] 200 mg PO QHS 04/14/21 aspirin [Adult Aspirin Regimen] 81 mg PO DAILY #30 tab 10/08/21 atorvastatin 20 mg PO DAILY #30 tab 10/08/21 The patient was counseled on the following discharge medications and changes in medications for homegoing were reviewed. The Reason for Use, instructions for use, and potential side effects were reviewed for all new medications. The patient's questions regarding all of their medications were answered. The patient was able to verbally demonstrate an understanding of their discharge medications.
--- NOTE | 2021-10-08 11:25 | CASEMGMT ---
RN PAOLO Face to Face with patient for initial transition planning/care coordination assessment. RN CM introduced self and role at [facility]. Patient lying in bed, alert and oriented. Patient willing to participate in assessment and is able to answer all questions appropriately. Care providers, pharmacy, and demographics verified. Patient wishes to discharge home, denies need for home health at this time. Patient states she has no further needs or concerns at this time. CM to follow for discharge planning needs that may arise. PCP: Nelida Specialists: Bryant ADKINS, Psycologist Preferred Pharmacy: [facility] retail Insurance: [employer] Prescription Benefit: yes Living Will/HPOA: none LNOK: , daughter Living Arrangements: patient lives with in a 2 story home. Patient states she is independent and able to ambulate stairs. Transportation: self/family DME/HHC: Patient denies DME or previous HHC. Disposition Plan: Patient to discharge home with family support and follow-up plans in place. Selena NIETO, RN, CM
--- NOTE | 2021-10-08 12:11 | DS.PCM_ITS ---
Documented by User: Sumanth JIM 10/08/21 12:15 Providers Date of Admission: 10/07/21 Primary Care Physician: Dr. Sumanth Krause MD Consultations 10/07/21 12:13 Consult: Cardiology Routine Consulting Provider: Beatriz Hendricks Reason for Consult: nstemi EMERGENT Consult: No MD Notified: Yes Date Notified: 10/07/21 Time Notified: 11:35 Method of Notification: Verbal Reason For Visit: NSTEMI Diagnosis Discharge Diagnosis (1) NSTEMI, initial episode of care: Status: Acute Code(s): I21.4 - Non-ST elevation (NSTEMI) myocardial infarction Medications at Discharge Home Medications desog-e.estradiol/e.estradiol 2 mg PO DAILY 08/25/13 lansoprazole 15 mg PO DAILY 08/25/13 quetiapine 50 mg PO DAILY 10/07/18 bupropion HCl 100 mg tablet 100 mg PO DAILY tab 08/09/19 trazodone 25 mg PO QHS 01/03/20 desvenlafaxine succinate [Pristiq] 50 mg PO DAILY 04/14/21 divalproex [Depakote ER] 500 mg PO QHS 04/14/21 lamotrigine [Lamictal] 200 mg PO QHS 04/14/21 aspirin [Adult Aspirin Regimen] 81 mg PO DAILY #30 tab 10/08/21 atorvastatin 20 mg PO DAILY #30 tab 10/08/21 Hospital Course Procedures 2-D Echocardiogram, Cardiac catheterization and Transthoracic echo Summary of Care Provided Minutes Spent on Discharge: 35 Hospital Course: Patient is a 51-year-old female who was admitted to [facility] on 10/07/2021 with a chief complaint of chest pain. On admission troponins were elevated throughout cycle at 122, 112 and 113. Cardiac catheterization was performed, results noted as above there were significant for nonobstructive coronary arteries with intramyocardial bridging of the LAD. Echocardiogram was also performed and demonstrated normal LV size and systolic function, an estimated EF of 60% and stage II diastolic dysfunction. Cardiology was consulted and recommendation was to maximize risk factor modification and to continue medical therapy. Patient will be discharged on aspirin and statin and is to follow-up with her primary care provider and cardiology within the next 2 weeks. Physical Exam Narrative Patient is a 51-year-old female comfortably resting in bed, alert and orient x3. Patient reports chest pain has resolved from admission. Denies development of no new symptoms overnight. Does not appear in acute distress. Const alert, oriented x3 and no apparent distress HEENT normocephalic, head/scalp atraumatic and hearing grossly normal bilaterally Eyes PERRL, EOMs intact bilaterally and conjunctivae normal Neck no lymphadenopathy, supple and no JVD Resp normal respiratory effort, no retractions, no use of accessory muscles and clear to auscultation bilaterally Cardio regular rate, regular rhythm, no murmurs and no JVD GI normal to inspection, nondistended, normoactive bowel sounds, soft to palpation and non-tender Extremity normal to inspection, full ROM and no clubbing, cyanosis or edema Skin no rashes or lesions noted, no wounds and skin turgor normal Neuro CN's II-XII intact bilaterally Psych affect normal Weight / BMI Weight Weight: 130 lb 4.691 oz Body Mass Index (BMI) 23.1 ABG / Lab / Microbiology Data Result Diagrams: 10/07/21 10:00 10/07/21 10:00 Laboratory: Laboratory Results - last 24 hr 10/07/21 12:00: PT 12.5, INR 1.0, APTT 29.1 10/07/21 12:56: Troponin I High Sens 112 H 10/07/21 16:40: Troponin I High Sens 113 H 10/07/21 18:40: APTT 120.1 H* 10/08/21 03:30: Triglycerides 189, Cholesterol 221 H, LDL Cholesterol 101, VLDL Cholesterol 38, HDL Cholesterol 82 10/08/21 03:30: APTT 42.3 H Radiography Diagnostic Testing: Radiology Impression Chest CTA 10/07/21 12:13 IMPRESSION: No evidence for pulmonary embolism, aortic aneurysm, or aortic dissection. Multiple calcified and noncalcified pulmonary nodules. Noncalcified pulmonary nodules measuring up to 5 mm in the right lower lobe with mild right hilar and mediastinal lymphadenopathy. Recommend follow-up. Individualized dose optimization techniques were used for this CT. at 1412 Reported and signed by: Maryam Guadarrama MD Electronically Signed: Maryam Guadarrama MD at 14:11 EST Tel , Service support , Echocardiogram 10/07/21 13:43 Interpretation Summary Normal LV size. Left ventricular systolic function is normal. The estimated ejection fraction is 60 %. Stage 2 diastolic dysfunction. Pulmonary artery systolic pressure is 28 mmHg. Ordering Physician: Beatriz Hendricks Referring Physician: Sumanth Krause Performed By: Sherrie Mendiola, FILOMENA, RVT D/C Instructions Discharge Diet: No restrictions Weight Bearing Status: Weight bearing as tolerated Call your doctor if you observe: Fever of 101 or Higher, Numbness or Tingling, Shortness of breath, Dizziness, Chest pain, Increased palpitations (irregular heartbeat) and Calf discomfort Please Follow Up With: Primary care provider When: Within the next two weeks. Meaningful Use Info Meaningful Use Diagnoses (Choose all that apply): None applicable Discharge Plan Admission Admit Date/Time: 10/07/21 11:30 Primary Reason for Your Visit: Chest pain Attending Provider: Marie Munguia Primary Care Provider: Sumanth Krause Consulting Providers: Beatriz Hendricks Discharge Orders/Prescriptions Prescriptions: New atorvastatin 20 mg tablet 20 mg PO DAILY Qty: 30 RF: 1 aspirin [Adult Aspirin Regimen] 81 mg tablet,delayed release (DR/EC) 81 mg PO DAILY Qty: 30 RF: 1 Continued lansoprazole 30 MG capsule 15 mg PO DAILY RF: 0 desog-e.estradiol/e.estradiol 1 EACH tablet 2 mg PO DAILY RF: 0 bupropion HCl 100 mg tablet 100 mg PO DAILY RF: 0 quetiapine 25 MG tablet 50 mg PO DAILY RF: 0 trazodone 50 MG tablet 25 mg PO QHS RF: 0 lamotrigine [Lamictal] 200 mg tablet 200 mg PO QHS RF: 0 divalproex [Depakote ER] 500 mg tablet extended release 24 hr 500 mg PO QHS RF: 0 desvenlafaxine succinate [Pristiq] 25 mg tablet extended release 24 hr 50 mg PO DAILY RF: 0 Referrals / Follow Up: Sumatnh Krause MD [Primary Care Provider] - 10/19/21 4:40 pm Disposition Disposition (needs filled in before D/C Order can be placed): Home, Self Care Documented by User: Dr. Marie Munguia DO 10/08/21 13:41 Providers Date of Admission: 10/07/21 Reason For Visit: NSTEMI Medications at Discharge Home Medications desog-e.estradiol/e.estradiol 2 mg PO DAILY 08/25/13 lansoprazole 15 mg PO DAILY 08/25/13 quetiapine 50 mg PO DAILY 10/07/18 bupropion HCl 100 mg tablet 100 mg PO DAILY tab 08/09/19 trazodone 25 mg PO QHS 01/03/20 desvenlafaxine succinate [Pristiq] 50 mg PO DAILY 04/14/21 divalproex [Depakote ER] 500 mg PO QHS 04/14/21 lamotrigine [Lamictal] 200 mg PO QHS 04/14/21 aspirin [Adult Aspirin Regimen] 81 mg PO DAILY #30 tab 10/08/21 atorvastatin 20 mg PO DAILY #30 tab 10/08/21 Hospital Course Operations None Procedures 2-D Echocardiogram and Cardiac catheterization Summary of Care Provided Minutes Spent on Discharge: 36 Hospital Course: Mrs. Harvey is a 51-year-old white female presented to the emergency department on 10/07/2021 with a chief complaint of chest pain. She reported on admission that she had been having chest pain that started on the morning of admission while lying in bed and that persisted and did not improve until presentation. She has a history of anxiety and bipolar disease but did not have any known cardiac issues at baseline. On admission she reported concurrent nausea and dyspnea and that she recently had Covid but had fully recovered at that time. She denied any fevers, chills, coughing, vomiting, and diarrhea, or constipation. The pain did radiate to her jaw and was midsternal in nature. Her initial troponin was slightly elevated and her cardiac enzymes were cycled. Her highest troponin was on admission and was 122 with a repeat at 112 and a subsequent 113. Given her troponin elevation she was started on a heparin drip, a statin was initiated as well as an aspirin and a cardiology consultation was placed. Given her symptoms and troponin elevation a cardiac catheterization was performed on 10/08/2021 and showed minimal coronary artery disease in the LAD with moderate luminal irregularities up to 50% with intramyocardial bridging of the mid LAD. I did discuss the case with cardiology after cardiac catheterization and they recommend discharge home with no further cardiology follow-up needed at this time. An echocardiogram was also performed and showed a normal EF of 60% with a normal LV and stage II diastolic dysfunction although her blood pressures were normalized during her hospital and and she is not on any antihypertensives at baseline. I would recommend continued follow-up with regards to her blood pressure as an outpatient. A lipid panel was obtained during her hospital course and she was found to have a total cholesterol of 221, and LDL of 101, and HDL of 82 and given her total cholesterol and LDL elevation with moderate luminal L irregularities in the LAD she was started on atorvastatin at 20 mg at at bedtime. I would recommend a repeat CMP in the future to reevaluate her LFTs which were normal upon initiation of medication. She was also started on a low-dose aspirin. She was instructed to follow-up with her primary care physician in 1 to 2 weeks. 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, appears comfortable, nontoxic General Appearance: cooperative, comfortable, well kempt and well developed Orientation / Consciousness: awake Exam Limitations: no limitations HEENT normocephalic, head/scalp atraumatic, hearing grossly normal bilaterally and moist oral mucous membranes HEENT Narrative: Dentition is fair, no thrush, Mallampati 2 Eyes PERRL, EOMs intact bilaterally and conjunctivae normal Eyes Narrative: No scleral icterus Neck no lymphadenopathy, supple and no JVD Neck Narrative: Trachea midline, no thyroid enlargement Resp normal respiratory effort, no retractions, no use of accessory muscles and clear to auscultation bilaterally Auscultation: Negative for crackles, rales, rhonchi or wheezes Cardio regular rate, regular rhythm, S1 normal heart sound, S2 normal heart sound, no murmurs, no rub, no gallops, no clicks and no JVD GI normal to inspection, nondistended, normoactive bowel sounds, soft to palpation, non-tender and non-distended; Negative for hepatosplenomegaly Extremity normal to inspection and no clubbing, cyanosis or edema Skin no rashes or lesions noted, no wounds, skin turgor normal and no jaundice Skin Narrative: Compression device on right radial artery status post left heart catheterization Neuro oriented x3, CN's II-XII intact bilaterally, moves all extremities and no focal motor deficits Sensorium / Orientation: awake, alert, oriented to person, oriented to place and oriented to time Speech: speech normal Motor Exam: strength 5/5 throughout Psych affect normal ABG / Lab / Microbiology Data Result Diagrams: 10/07/21 10:00 10/07/21 10:00 Discharge Plan Admission Admit Date/Time: 10/07/21 11:30 Primary Reason for Your Visit: Chest pain Attending Provider: Marie Munguia Primary Care Provider: Sumanth Krause Consulting Providers: Beatriz Hendricks Discharge Orders/Prescriptions Prescriptions: New atorvastatin 20 mg tablet 20 mg PO DAILY Qty: 30 RF: 1 aspirin [Adult Aspirin Regimen] 81 mg tablet,delayed release (DR/EC) 81 mg PO DAILY Qty: 30 RF: 1 Continued lansoprazole 30 MG capsule 15 mg PO DAILY RF: 0 desog-e.estradiol/e.estradiol 1 EACH tablet 2 mg PO DAILY RF: 0 bupropion HCl 100 mg tablet 100 mg PO DAILY RF: 0 quetiapine 25 MG tablet 50 mg PO DAILY RF: 0 trazodone 50 MG tablet 25 mg PO QHS RF: 0 lamotrigine [Lamictal] 200 mg tablet 200 mg PO QHS RF: 0 divalproex [Depakote ER] 500 mg tablet extended release 24 hr 500 mg PO QHS RF: 0 desvenlafaxine succinate [Pristiq] 25 mg tablet extended release 24 hr 50 mg PO DAILY RF: 0 Referrals / Follow Up: Sumanth Krause MD [Primary Care Provider] - 10/19/21 4:40 pm Disposition Disposition (needs filled in before D/C Order can be placed): Home, Self Care Charges/Coding Visit Charges Inpatient E&M: 74976 Disch Hosp
[2021-10-08] MEDS: Pantoprazole Sodium 20 MG Tablet PO (12:13)
[2021-10-08] MEDS: buPROPion (SR) 100 MG TABLET.SA PO (12:13)
[2021-10-08] MEDS: Venlafaxine XR 37.5 MG Capsule PO (12:13)
--- NOTE | 2021-10-08 15:15 | NURSING ---
This RN reviewed SN charting
== END 2021-10-08 13:54 | disposition home or self-care (01) | DRG 281 ==
LOC: ED 11:11 → PCU 11:41
PROVIDERS: Internal Medicine Interventional Cardiology; Emergency Provider Emergency Medicine; PCP Family Medicine; Visit Provider Internal Medicine
DX: I21.4 Non-ST elevation (NSTEMI) myocardial infarction (principal); Q24.5 Malformation of coronary vessels; I25.10 Atherosclerotic heart disease of native coronary artery without angina pectoris; F31.9 Bipolar disorder, unspecified; E78.5 Hyperlipidemia, unspecified; M50.10 Cervical disc disorder with radiculopathy, unspecified cervical region; F41.9 Anxiety disorder, unspecified; K21.9 Gastro-esophageal reflux disease without esophagitis; Z86.16 Personal history of COVID-19; Z79.82 Long term (current) use of aspirin; Z79.899 Other long term (current) drug therapy
CPT/HCPCS: 36415; 71046; 71275; 80048; 80061; 84484; 85025; 85379; 85610; 85730; 93005; 93306; 93454; 99152; 99153; 99285; J7030; Q9967; A4216; C1769; C1894; J2405

== ENCOUNTER → 2021-10-17 14:45 | Outpatient (CLI) | payer BC, SELFPAY ==
--- NOTE | 2021-10-17 14:48 | CT_ITS ---
EXAM: CT MAXILLOFACIAL SINUSES WITHOUT INTRAVENOUS CONTRAST CLINICAL INDICATION: SINUSITIS TECHNIQUE: Helically acquired images were obtained of the maxillofacial sinuses without intravenous contrast. This CT exam was performed using one or more of the following dose reduction techniques: automated exposure control, adjustment of the mA and/or kV according to patient size, and/or use of iterative reconstruction technique. This report was created using [employer] technology. COMPARISON: None. FINDINGS: MAXILLARY SINUSES: Clear. Ostiomeatal complexes are normally formed. SPHENOID SINUSES: Clear. FRONTAL SINUSES: Clear. ETHMOID AIR CELLS: Clear. NASAL CAVITY/SEPTUM: Nasal septum is midline. Nasal turbinates are unremarkable. BONES/JOINTS: Anterior cranial fossa is unremarkable. ORBITS: Unremarkable. DENTAL: Unremarkable as visualized. No periodontal osseous erosion. CT/Sinus/Facial Bone IMPRESSION: Negative CT of the sinuses. Electronically Signed: Noé Lund MD at 15:06 EST , Service support ,
== END ==
PROVIDERS: PCP Family Medicine; Referring Provider Otolaryngology; Visit Provider Otolaryngology
DX: J32.9 Chronic sinusitis, unspecified (principal)
CPT/HCPCS: 70486

== ENCOUNTER → 2021-10-24 | Outpatient (CLI) | payer BC, SELFPAY | END | disposition home or self-care (01) | PROVIDERS: PCP Family Medicine; Referring Provider Family Medicine; Visit Provider Family Medicine | DX: N39.0 Urinary tract infection, site not specified (principal) | CPT/HCPCS: 87086; 87088 ==

== ENCOUNTER 2021-10-30 12:05 | Emergency (ER) | payer BC, SELFPAY ==
[2021-10-30 12:06] VITALS: BP 143/98; PULSE 89; RESP 18; TEMP 36.2; O2SAT 98; BMI 23.0
[2021-10-30 13:01] LABS: Absolute Lymphocyte Count 2.45 X10^3/uL (0.83-4.51); Absolute Neutrophil Count 1.3 X10^3/uL (2.0-7.7); Basophil# 0.06 X10^3/uL; Basophil% 1.4 % (0-1); Eosinophil# 0.14 X10^3/uL; Eosinophils% 3.2 % (0-5); Hematocrit 41.5 % (37-47); Hemoglobin 13.9 g/dL (12.0-15.0); Lymphocyte # 2.45 X10^3/ul (0.83-4.51); Lymphocyte % 56.3 % (19-41); Mean Corp Hgb Conc 33.5 g/dL (32-36); Mean Corpuscular Hgb 29.7 pg (27.0-32.0); Mean Corpuscular Volume 88.7 fL (81-99); Mean Platelet Vol. 8.1 fl (6.2-12.0); Monocyte# 0.35 X10^3/uL; NRBC Flagged by Analyzer 0 % (0-5); Neutrophil # 1.34 X10^3/uL (2.7-7.7); Neutrophil % 30.9 % (47-70); Platelet Count 262 K/mm3 (150-450); RBC Distribution Width CV 12.1 % (11.6-14.6); RBC Distribution Width SD 39.3 fl (35.1-43.9); Red Blood Count 4.68 M/mm3 (4.2-5.4); White Blood Count 4.4 K/mm3 (4.4-11.0)
[2021-10-30 13:15] LABS: Anion Gap 3 (5-15); BUN 14 mg/dL (7-18); BUN/Creat Ratio 15.9 RATIO (10-20); Calcium,Total 9.7 mg/dL (8.5-10.1); Chloride 103 mmol/L (98-107); Creatinine, Serum 0.88 mg/dL (0.55-1.02); EST Glomerular Filtration Rate 72 mL/min (>60); Est Glom Filt Rate - Afr Amer 87 mL/min (>60); Estimated Creatinine Clearance 62.56 ml/min; Glucose 94 mg/dL (74-106); Potassium 4.6 mmol/L (3.5-5.1); Sodium Level 139 mmol/L (136-145)
--- NOTE | 2021-10-30 13:37 | CT_ITS ---
STUDY: CT ABDOMEN AND PELVIS WITH CONTRAST REASON FOR EXAM: Female, 51 years old. ABD. PAIN. Low-grade fever. Vomiting. RADIATION DOSAGE (If Supplied By Facility): CTDIvol = ( 14.35 ) mGy, DLP = ( 409.19 ) mGycm TECHNIQUE: Transaxial images were obtained from the dome of the diaphragm to the symphysis pubis without oral contrast. Isovue 300mL and oral contrast. was administered. Sagittal and coronal images were reconstructed. Individualized dose optimization techniques were used for this CT. COMPARISON: Comparison is made with prior study dated 01/04/2020. FINDINGS: The visualized lung bases are unremarkable. The visualized portions of the heart are within normal limits. There is decreased attenuation of the liver consistent with steatosis. The patient is status post cholecystectomy. Normal spleen. Normal pancreas. Normal bilateral adrenal glands. Normal right kidney. Normal left kidney. Normal visualized stomach. Normal small intestine. There are multiple colonic diverticula consistent with diverticulosis. Moderate amount of fecal material is seen in the colon. The appendix is visualized and appears normal. Normal abdominal aorta. Normal inferior vena cava. Normal retroperitoneum. Normal urinary bladder. There is absence of the uterus consistent with a prior hysterectomy. Normal abdominal wall. Stable 1.2 cm sclerotic focus along the right lateral aspect of the L4 vertebrae. CT/Abdomen/Pelvis WITH Contrast IMPRESSION: Fatty infiltration of the liver. Sigmoid diverticulosis. Fecal material is seen in the colon. Electronically Signed: Rishi Hunt MD at 15:49 EST , Service support ,
[2021-10-30 13:38] LABS: Mucous, Urine 0 SEEN /hpf (<or=2+)
--- NOTE | 2021-10-30 13:40 | EDS_ITS ---
HPI HPI - GI History of Present Illness Chief Complaint: Abd Pain Informant: patient Abdominal Pain/Flank Pain Onset: Days (3) Context: Gradual Onset Timing: Waxes and wanes Quality: Sharp Location: Diffuse Worsened by: Movement Relieved by: Nothing Nausea/Vomiting/Emesis GI Symptom: Positive for Nausea; Negative for Vomiting Diarrhea/Melena/Hematochezia GI Symptom: Negative for Diarrhea, Melena and Hematochezia Associated Symptoms Associated Symptoms: Positive for Dysuria Narrative Narrative: Patient presents with abdominal pain that became worse over the past 3 days. Patient states she had an episode last week where she has some nausea and vomiting but that resolved. Patient states that over the last 3 days her pain has been waxing and waning. Patient states it is sharp. Patient states t hat starts in the epigastric area but then spreads throughout her abdomen. Patient states it is worse with certain movements. Patient admits to nausea but denies any vomiting. Patient denies any diarrhea, melena, or hematochezia. Patient is to some dysuria but denies any hematuria, urgency, or frequency. PFSH [facility] Medical History Anxiety Bipolar disease, chronic Cervical radiculopathy COVID-19 virus detected (08/29/20) Degenerative disc disease, cervical Depression Elevated troponin level Epigastric abdominal pain Frequent headaches GERD (gastroesophageal reflux disease) GERD (gastroesophageal reflux disease) Nonobstructive atherosclerosis of coronary artery NSTEMI, initial episode of care (10/07/21) Vertigo Home Medications desog-e.estradiol/e.estradiol 2 mg PO DAILY 08/25/13 [History Last Taken 10/17 02/04] lansoprazole 15 mg PO DAILY 08/25/13 [History Last Taken 10/29/21] quetiapine 50 mg PO DAILY 10/07/18 [History Last Taken 10/29/21] bupropion HCl 100 mg tablet 100 mg PO DAILY tab 08/09/19 [History Last Taken 10/29/21] trazodone 25 mg PO QHS 01/03/20 [History Last Taken 10/29/21] desvenlafaxine succinate [Pristiq] 50 mg PO DAILY 04/14/21 [History Last Taken 10/29/21] divalproex [Depakote ER] 500 mg PO QHS 04/14/21 [History Last Taken 10/29/21] lamotrigine [Lamictal] 200 mg PO QHS 04/14/21 [History Last Taken 10/29/21] aspirin [Adult Aspirin Regimen] 81 mg PO DAILY #30 tab 10/08/21 [Rx Last Taken 10/29/21] atorvastatin 20 mg PO DAILY #30 tab 10/08/21 [Rx Last Taken 10/29/21] ciprofloxacin HCl 500 mg PO BID #14 tablet 10/30/21 [Rx Last Taken Unknown] hydrocodone-acetaminophen 1 tab PO Q6H PRN PRN 3 Days #10 tablet 10/30/21 [Rx Last Taken Unknown] metronidazole 500 mg PO Q6H #28 tab 10/30/21 [Rx Last Taken Unknown] Allergy/AdvReac Type Severity Reaction Status Date / Time verapamil Allergy Mild Rash Verified 10/30/21 12:06 amoxicillin [Amoxicillin] Allergy Hives Verified 10/30/21 12:06 sulfamethoxazole Allergy Rash Verified 10/30/21 12:06 [From Septra] trimethoprim [From Septra] Allergy Rash Verified 10/30/21 12:06 diphenhydramine AdvReac Other Verified 10/30/21 12:06 [From Benadryl] olanzapine [From Zyprexa] AdvReac Unknown Verified 10/30/21 12:06 oxcarbazepine AdvReac Unknown Verified 10/30/21 12:06 [From Trileptal] sumatriptan [From Imitrex] AdvReac Other Verified 10/30/21 12:06 zolmitriptan [From Zomig] AdvReac Unknown Verified 10/30/21 12:06 AVALOX AdvReac Unknown Uncoded 10/30/21 12:06 Family History (Updated 10/07/21 @ 13:[address] Mook Siu DO) Mother CVA (cerebral vascular accident) Surgical History History of carpal tunnel release History of cholecystectomy History of hysterectomy History of left heart catheterization (10/08/21) History of nasal septoplasty History of tonsillectomy and adenoidectomy Social History household members: spouse Smoking Status: Never smoker alcohol intake: never substance use type: does not use ROS ROS ED Constitutional Constitutional ED: Reports chills and subjective; Denies fever(s) Eyes Eyes: Denies blurry vision or change in vision ENT ENT ED: Denies rhinorrhea or sore throat Cardiovascular Cardiovascular: Denies chest pain or palpitations Respiratory/Chest Respiratory/Chest: Reports dyspnea; Denies cough Gastrointestinal Gastrointestinal: Reports abdominal pain and nausea; Denies vomiting Genitourinary Genitourinary ED: Reports dysuria; Denies hematuria Musculoskeletal Musculoskeletal: Reports back pain; Denies neck pain Integumentary Denies abscess or rash Neurologic Neurologic: Denies headache(s) or weakness Allergic/Immunologic Allergic/Immunologic ED: Denies mouth swelling or urticaria EXAM Physical Exam Const Vital Signs: 10/30/21 12:06 10/30/21 13:55 10/30/21 14:47 Temperature 97.1 F L 98.2 F Temperature Source Temporal Oral Pulse Rate 89 86 Respiratory Rate 18 14 16 Blood Pressure 143/98 H 137/81 H 191/109 H Blood Pressure Mean 113 99 136 Pulse Ox 98 100 99 Oxygen Delivery Method Room Air Room Air 10/30/21 15:09 10/30/21 16:57 Temperature 97.1 F L Temperature Source Temporal Pulse Rate 99 Respiratory Rate 20 H Blood Pressure 145/87 H Blood Pressure Mean 106 Pulse Ox 93 Oxygen Delivery Method Room Air Positive well nourished and well developed General Appearance ED: well developed HEENT Reports moist mucous membranes Neck supple and no JVD Resp normal respiratory effort and clear to auscultation bilaterally Cardio regular rate, regular rhythm and no murmurs GI normal to inspection, nondistended, normoactive bowel sounds and non-distended Auscultation: normoactive bowel sounds Palpation: soft, tender epigastric, LLQ, RLQ, LUQ, RUQ, periumbilical and suprapubic and guarding; Negative for rebound tenderness present Extremity normal to inspection General Extremety ED: Negative for edema or tenderness General Extremity: Negative for edema Neuro oriented x3, CN's II-XII intact bilaterally and no sensory deficits noted Sensorium / Orientation: alert Motor Exam: strength 5/5 throughout Psych mental status grossly normal Skin no rashes or lesions noted MDM MDM MDM Narrative Medical decision making narrative: Patient was given IV fluids, morphine, and Zofran. CBC and basic metabolic profile were obtained and were essentially within normal limits. Hepatic profile was obtained and was within normal limits. Lactate was normal. Urinalysis was within normal limits. CT scan of the abdomen and pelvis was obtained. There is fatty infiltration of the liver. There is sigmoid diverticulosis. There is fecal material seen within the colon. Patient had persistent pain. Patient was given a repeat dose of morphine. Patient had minimal relief with this. Patient was given a dose of Dilaudid. Patient was advised of her findings. Patient was instructed to take laxatives such as MiraLAX which is [id number]. Patient was instructed to use fleets enemas [id number] as needed as well. Patient was given prescriptions for Cipro and Flagyl to cover for possible diverticulitis. Patient was given a prescription for a short course of Elbert. Patient was advised that this may make her constipation worse. Patient was instructed to follow-up with her primary care physician in 3 to 5 days. Patient understood and was agreeable with the plan. All questions were answered. Lab Data Attestation: I reviewed the patient's lab results. Labs: Laboratory Results - last 24 hr 10/30/21 10/30/21 10/30/21 12:50 12:50 12:50 WBC 4.4 RBC 4.68 Hgb 13.9 Hct 41.5 MCV 88.7 MCH 29.7 MCHC 33.5 RDW Std Deviation 39.3 RDW Coeff of Stella 12.1 Plt Count 262 MPV 8.1 Immature Gran % (Auto) 0.200 Neut % (Auto) 30.9 L Lymph % (Auto) 56.3 H [place] % (Auto) 8.0 Eos % (Auto) 3.2 Baso % (Auto) 1.4 H Absolute Neuts (auto) 1.3 L Absolute Lymphs (auto) 2.45 Nucleated RBC % 0 Sodium 139 Potassium 4.6 Chloride 103 Carbon Dioxide 33.0 H Anion Gap 3 L BUN 14 Creatinine 0.88 Estim Creat Clear Calc 62.56 Est GFR (MDRD) Af Amer 87 Est GFR (MDRD) Non-Af 72 BUN/Creatinine Ratio 15.9 Glucose 94 Lactic Acid Calcium 9.7 Total Bilirubin 0.50 Direct Bilirubin 0.10 AST 13 L ALT 18 Alkaline Phosphatase 77 Total Protein 8.0 Albumin 3.6 Globulin 4.4 H Lipase 63 L Urine Color Urine Clarity Urine pH Ur Specific [place] Urine Protein Urine Glucose (UA) Urine Ketones Urine Occult Blood Urine Nitrite Urine Bilirubin Urine Urobilinogen Ur Leukocyte Esterase Urine RBC Urine WBC Ur Squamous Epith Cells Urine Bacteria Urine Mucus 10/30/21 10/30/21 13:27 13:43 WBC RBC Hgb Hct MCV MCH MCHC RDW Std Deviation RDW Coeff of Stella Plt Count MPV Immature Gran % (Auto) Neut % (Auto) Lymph % (Auto) [place] % (Auto) Eos % (Auto) Baso % (Auto) Absolute Neuts (auto) Absolute Lymphs (auto) Nucleated RBC % Sodium Potassium Chloride Carbon Dioxide Anion Gap BUN Creatinine Estim Creat Clear Calc Est GFR (MDRD) Af Amer Est GFR (MDRD) Non-Af BUN/Creatinine Ratio Glucose Lactic Acid 1.1 Calcium Total Bilirubin Direct Bilirubin AST ALT Alkaline Phosphatase Total Protein Albumin Globulin Lipase Urine Color Yellow Urine Clarity Sl. Cloudy Urine pH 6.0 Ur Specific [place] 1.015 Urine Protein Negative Urine Glucose (UA) Normal Urine Ketones Negative Urine Occult Blood 10 H Urine Nitrite Negative Urine Bilirubin Negative Urine Urobilinogen Normal Ur Leukocyte Esterase Negative Urine RBC 0-5 SEEN Urine WBC 0-5 SEEN Ur Squamous Epith Cells 0-5 SEEN Urine Bacteria RARE Urine Mucus 0 SEEN Discharge Plan Triage Chief Complaint: Abd Pain ED Provider: Mook Suárez Dx/Rx/DC Orders Clinical Impression: Abdominal pain, Constipation, Diverticulosis Instructions: ED Abdominal Pain Unkn Cause Fem, ED Constipation (Adult), ED Diverticulosis Prescriptions: New hydrocodone-acetaminophen [hydrocodone-acetaminophen] 1 TABLET tablet 1 tab PO Q6H PRN PRN (Reason: Pain) 3 Days Qty: 10 RF: 0 ciprofloxacin HCl [ciprofloxacin HCl] 500 MG tablet 500 mg PO BID Qty: 14 RF: 0 metronidazole [metronidazole] 500 MG tablet 500 mg PO Q6H Qty: 28 RF: 0 No Action lansoprazole 30 MG capsule 15 mg PO DAILY RF: 0 desog-e.estradiol/e.estradiol 1 EACH tablet 2 mg PO DAILY RF: 0 bupropion HCl 100 mg tablet 100 mg PO DAILY RF: 0 quetiapine 25 MG tablet 50 mg PO DAILY RF: 0 trazodone 50 MG tablet 25 mg PO QHS RF: 0 lamotrigine [Lamictal] 200 mg tablet 200 mg PO QHS RF: 0 divalproex [Depakote ER] 500 mg tablet extended release 24 hr 500 mg PO QHS RF: 0 desvenlafaxine succinate [Pristiq] 25 mg tablet extended release 24 hr 50 mg PO DAILY RF: 0 atorvastatin 20 mg tablet 20 mg PO DAILY Qty: 30 RF: 1 aspirin [Adult Aspirin Regimen] 81 mg tablet,delayed release (DR/EC) 81 mg PO DAILY Qty: 30 RF: 1 Primary Care Provider: Sumanth Krause Referrals: Sumanth Krause MD [Primary Care Provider] - 3-5 Days Activity Restrictions/Additional Instructions: You may take [id number] MiraLAX as needed for constipation. You may also use [id number]-[id number] fleets enemas as needed for constipation. Disposition Disposition: Home, Self Care
[2021-10-30 13:41] LABS: Color, Urine Yellow (Yellow); Glucose, Dipstick Normal (Normal); Ketone-Dipstick Negative (Negative); Leukocyte Esterase-Dipstick Negative /ul (Negative); Nitrite-Dipstick Negative (Negative); Occult Blood-Urine 10 /ul (Negative); Protein-Dipstick Negative (Negative); Specific Gravity, Urine 1.015 (1.002-1.030); Urine Bilirubin Dipstick Negative (Negative); Urine Clarity Sl. Cloudy (Clear); Urine Urobilinogen Normal (Normal)
[2021-10-30] MEDS: 0.9% Normal Saline 1,000 ML 1000 ML IV (13:44)
[2021-10-30] MEDS: Morphine 4 MG/ML Syringe IV ×2 (13:45→14:54)
[2021-10-30] MEDS: Ondansetron 4 MG/2 ML Vial IV (13:45)
[2021-10-30 13:48] LABS: Bacteria RARE /hpf (None Seen); Red Blood Cells-Urine 0-5 SEEN /hpf (0-5); Squamous Epithelial Cells - UA 0-5 SEEN /hpf (5-10); White Blood Cells 0-5 SEEN /hpf (0-5)
[2021-10-30 13:55] VITALS: BP 137/81; PULSE 86; RESP 14; TEMP 36.8; O2SAT 100
[2021-10-30 14:06] LABS: AST(SGOT) 13 U/L (15-37); Alanine Aminotransfer ALT/SGPT 18 U/L (13-56); Albumin, Serum 3.6 g/dL (3.2-5.0); Alkaline Phosphatase 77 U/L (45-117); Globulin 4.4 g/dL (2.2-4.2); Lipase 63 U/L (73-393)
[2021-10-30 14:13] LABS: Lactic Acid 1.1 mmol/L (0.4-1.9)
[2021-10-30 14:47] VITALS: BP 191/109; RESP 16; O2SAT 99
[2021-10-30 15:09] VITALS: TEMP 36.2
[2021-10-30] MEDS: HYDROmorphone 1 MG/ML Syringe 0.5 MG IV (16:54)
[2021-10-30 16:57] VITALS: BP 145/87; PULSE 99; RESP 20; O2SAT 93
[2021-10-30 17:34] VITALS: BP 124/66; PULSE 92; RESP 15; O2SAT 98
== END 2021-10-30 17:35 | disposition home or self-care (01) ==
PROVIDERS: Emergency Provider Emergency Medicine; PCP Family Medicine
DX: K59.00 Constipation, unspecified (principal); K57.30 Diverticulosis of large intestine without perforation or abscess without bleeding; K76.0 Fatty (change of) liver, not elsewhere classified; F31.9 Bipolar disorder, unspecified; F41.9 Anxiety disorder, unspecified; K21.9 Gastro-esophageal reflux disease without esophagitis; M50.10 Cervical disc disorder with radiculopathy, unspecified cervical region; I25.2 Old myocardial infarction; I25.10 Atherosclerotic heart disease of native coronary artery without angina pectoris; Z86.16 Personal history of COVID-19; Z79.82 Long term (current) use of aspirin; Z79.899 Other long term (current) drug therapy
CPT/HCPCS: 74177; 80048; 80076; 81001; 83605; 83690; 85025; 96361; 96374; 96375; 96376; 99283; Q9967; A4216; J2405

== ENCOUNTER → 2021-11-06 11:48 | Outpatient (CLI) | payer BC, SELFPAY | PROVIDERS: PCP Family Medicine; Referring Provider Family Medicine; Visit Provider Registered Nurse | DX: R30.0 Dysuria (principal); K57.90 Diverticulosis of intestine, part unspecified, without perforation or abscess without bleeding | CPT/HCPCS: 87086; 87088; 87493; 87506 ==

== ENCOUNTER 2021-12-05 14:36 | Outpatient (CLI) | payer BC, SELFPAY ==
--- NOTE | 2021-12-05 14:45 | CT_ITS ---
STUDY: CT CHEST WITHOUT CONTRAST REASON FOR EXAM: Female, 51 years old. LUNG NODULE RADIATION DOSAGE (If Supplied By Facility): CTDIvol = ( 5.30 ) mGy, DLP = ( 148.61 ) mGycm TECHNIQUE: Transaxial imaging was performed without the administration of intravenous contrast material. Multiplanar coronal and sagittal images were reformatted. Individualized dose optimization techniques were used for this CT. COMPARISON: Comparison is made with prior examination dated 11/08/2020 and 10/07/2021. FINDINGS: Stable 5 mm calcified granuloma and can''t aspect of the right upper lobe. Stable 6 mm calcified granuloma in the superior segment of the right lower lobe. Stable partially calcified granuloma in the lateral aspect of the right lower lobe as well as in the posterior segment of the right lower lobe. Stable 3 mm noncalcified nodule in the lateral aspect of the right lower lobe adjacent to the right hemidiaphragm. Stable partially calcified granuloma in the posterior lateral aspect of the left lower lobe. There is no demonstrated pleural abnormality. Normal heart and pericardium. There are multiple small lymph nodes within the mediastinum, which are normal in size and morphology most compatible with reactive lymph hyperplasia. Normal hilar regions. Normal unenhanced pulmonary arteries. Normal aorta arch and descending thoracic aorta. There are degenerative changes of the thoracic spine. There is no demonstrated abnormality of the visualized upper abdomen. CT/Chest without Contrast IMPRESSION: Stable examination with multiple calcified granulomas and noncalcified nodule in the right lower lobe adjacent to the right hemidiaphragm. Electronically Signed: Rishi Hunt MD at 15:21 EST , Service support ,
== END 2021-12-05 23:59 | disposition short-term general hospital (02) ==
PROVIDERS: PCP Family Medicine; Referring Provider Internal Medicine Pulmonary Disease; Visit Provider Internal Medicine Pulmonary Disease
DX: R91.1 Solitary pulmonary nodule (principal)
CPT/HCPCS: 71250

== ENCOUNTER 2021-12-14 15:48 | Outpatient (CLI) | payer BC, SELFPAY ==
[2021-12-14 17:51] LABS: Absolute Lymphocyte Count 2.29 X10^3/uL (0.83-4.51); Absolute Neutrophil Count 8.1 X10^3/uL (2.0-7.7); Basophil# 0.04 X10^3/uL; Basophil% 0.3 % (0-1); Eosinophil# 0.25 X10^3/uL; Eosinophils% 2.2 % (0-5); Hematocrit 41.3 % (37-47); Hemoglobin 13.8 g/dL (12.0-15.0); Lymphocyte # 2.29 X10^3/ul (0.83-4.51); Mean Corp Hgb Conc 33.4 g/dL (32-36); Mean Corpuscular Hgb 29.1 pg (27.0-32.0); Mean Corpuscular Volume 86.9 fL (81-99); Mean Platelet Vol. 8.6 fl (6.2-12.0); Monocyte# 0.74 X10^3/uL; Monocyte% 6.5 % (0-10); NRBC Flagged by Analyzer 0 % (0-5); Neutrophil # 8.11 X10^3/uL (2.7-7.7); Neutrophil % 70.7 % (47-70); Platelet Count 299 K/mm3 (150-450); RBC Distribution Width SD 38.5 fl (35.1-43.9); Red Blood Count 4.75 M/mm3 (4.2-5.4); White Blood Count 11.5 K/mm3 (4.4-11.0)
[2021-12-14 18:07] LABS: ALB/GLOB Ratio 0.8 RATIO (0.9-2.4); AST(SGOT) 16 U/L (15-37); Alanine Aminotransfer ALT/SGPT 17 U/L (13-56); Albumin, Serum 3.3 g/dL (3.2-5.0); Alkaline Phosphatase 71 U/L (45-117); Anion Gap 5 (5-15); BUN 15 mg/dL (7-18); BUN/Creat Ratio 18.3 RATIO (10-20); Calcium,Total 8.9 mg/dL (8.5-10.1); Chloride 102 mmol/L (98-107); Creatinine, Serum 0.82 mg/dL (0.55-1.02); EST Glomerular Filtration Rate 78 mL/min (>60); Est Glom Filt Rate - Afr Amer 94 mL/min (>60); Globulin 4.3 g/dL (2.2-4.2); Glucose 101 mg/dL (74-106); Potassium 4.2 mmol/L (3.5-5.1); Protein, Total 7.6 g/dL (6.4-8.2); Sodium Level 137 mmol/L (136-145)
== END 2021-12-14 23:59 | disposition short-term general hospital (02) ==
LOC: MFPLAB 15:51
PROVIDERS: PCP Family Medicine; Referring Provider Family Medicine; Visit Provider Family Medicine
DX: K57.92 Diverticulitis of intestine, part unspecified, without perforation or abscess without bleeding (principal)
CPT/HCPCS: 36415; 80053; 85025

== ENCOUNTER 2021-12-14 16:59 | Emergency (ER) | payer BC, SELFPAY ==
[2021-12-14 17:00] VITALS: BP 126/86; PULSE 92; RESP 15; TEMP 36.2; O2SAT 98; BMI 22.4
--- NOTE | 2021-12-14 17:56 | EDS_ITS ---
HPI HPI - GI History of Present Illness Chief Complaint: Abd Pain Narrative Narrative: 51-year-old female with diffuse crampy abdominal pain which started this morning. She states that she has a history of constipation and diarrhea. She states that she was seen by her primary care physician today who ordered blood work and ordered a CAT scan of her abdomen pelvis however cannot be done due to insurance problems. Patient has not received the results for her lab work. Patient denies any fever or chills. She admits to nausea without vomiting. She describes her pain is diffuse. Patient states that he was here before and had similar symptoms and was diagnosed with diverticulitis with a negative CT of the abdomen pelvis as well as normal blood work. Patient states that she did take laxatives and had diarrhea for a few days and then the problem was resolved. [facility] Medical History Anxiety Bipolar disease, chronic Cervical radiculopathy COVID-19 virus detected (08/29/20) Degenerative disc disease, cervical Depression Elevated troponin level Epigastric abdominal pain Frequent headaches GERD (gastroesophageal reflux disease) GERD (gastroesophageal reflux disease) Nonobstructive atherosclerosis of coronary artery NSTEMI, initial episode of care (10/07/21) Vertigo Home Medications desog-e.estradiol/e.estradiol 2 mg PO DAILY 08/25/13 [History Last Taken 10/29/21] lansoprazole 15 mg PO DAILY 08/25/13 [History Last Taken 10/29/21] quetiapine 50 mg PO DAILY 10/07/18 [History Last Taken 10/29/21] bupropion HCl 100 mg tablet 100 mg PO DAILY tab 08/09/19 [History Last Taken 10/29/21] trazodone 50 mg PO QHS 01/03/20 [History Last Taken 10/29/21] desvenlafaxine succinate [Pristiq] 50 mg PO DAILY 04/14/21 [History Last Taken 10/29/21] divalproex [Depakote ER] 500 mg PO QHS 04/14/21 [History Last Taken 10/29/21] lamotrigine [Lamictal] 200 mg PO QHS 04/14/21 [History Last Taken 10/29/21] aspirin [Adult Aspirin Regimen] 81 mg PO DAILY #30 tab 10/08/21 [Rx Last Taken 10/29/21] atorvastatin 20 mg PO DAILY #30 tab 10/08/21 [Rx Last Taken 10/29/21] dicyclomine 10 mg PO .QID PRN #40 cap 12/14/21 [Rx Last Taken Unknown] docusate sodium [Colace] 100 mg PO DAILY #14 cap 12/14/21 [Rx Last Taken Unknown] ondansetron 4 mg PO Q8H PRN #20 tab 12/14/21 [Rx Last Taken Unknown] prednisone 10 mg PO DAILY #10 tab 12/14/21 [Rx Last Taken Unknown] Allergy/AdvReac Type Severity Reaction Status Date / Time verapamil Allergy Mild Rash Verified 12/14/21 17:02 amoxicillin [Amoxicillin] Allergy Hives Verified 12/14/21 17:02 sulfamethoxazole Allergy Rash Verified 12/14/21 17:02 [From Septra] trimethoprim [From Septra] Allergy Rash Verified 12/14/21 17:02 diphenhydramine AdvReac Other Verified 12/14/21 17:02 [From Benadryl] olanzapine [From Zyprexa] AdvReac Unknown Verified 12/14/21 17:02 oxcarbazepine AdvReac Unknown Verified 12/14/21 17:02 [From Trileptal] sumatriptan [From Imitrex] AdvReac Other Verified 12/14/21 17:02 zolmitriptan [From Zomig] AdvReac Unknown Verified 12/14/21 17:02 AVALOX AdvReac Unknown Uncoded 12/14/21 17:02 Family History Mother CVA (cerebral vascular accident) Surgical History History of carpal tunnel release History of cholecystectomy History of hysterectomy History of left heart catheterization (10/08/21) History of nasal septoplasty History of tonsillectomy and adenoidectomy Social History household members: spouse Smoking Status: Never smoker alcohol intake: never substance use type: does not use ROS ROS ED Constitutional Constitutional ED: Denies chills or fever(s) ENT ENT ED: Denies rhinorrhea or sore throat Cardiovascular Cardiovascular: Denies chest pain or palpitations Respiratory/Chest Respiratory/Chest: Denies cough, dyspnea or sputum Gastrointestinal Gastrointestinal: Reports abdominal pain, constipation, diarrhea and nausea; Denies vomiting Genitourinary Genitourinary ED: Denies dysuria or hematuria Musculoskeletal Musculoskeletal: Denies arthralgias or myalgias Integumentary Denies Abrasions or rash Neurologic Neurologic: Denies headache(s) or paresthesias EXAM Physical Exam Const Vital Signs: 12/14/21 17:00 12/14/21 19:52 Temperature 97.2 F L Temperature Source Temporal Pulse Rate 92 88 Respiratory Rate 15 18 Blood Pressure 126/86 H 147/99 H Blood Pressure Mean 99 115 Pulse Ox 98 98 Oxygen Delivery Method Room Air Room Air Positive well nourished General Appearance ED: NAD; Negative for pallor HEENT Reports moist mucous membranes normocephalic and atraumatic Eyes PERRL and EOMs intact bilaterally Resp normal respiratory effort and clear to auscultation bilaterally Cardio regular rate and regular rhythm GI Auscultation: hypoactive bowel sounds Palpation: tender other (Generalized); Negative for guarding, rigid, hepatomegaly or rebound tenderness present Neuro Sensorium / Orientation: alert, oriented to person, oriented to place and oriented to time Psych mental status grossly normal and thought process normal Skin General Skin Exam: Negative for jaundice or pallor Lesions: no lesions Rashes: no rashes MDM MDM MDM Narrative Medical decision making narrative: Patient's CBC shows a very mild leukocytosis at 11.5, CMP, lipase all unremarkable. Urinalysis negative for infection. Depakote level is actually slightly low at 48. Patient was given morphine and Zofran. After discussion with her she states that the last time she was here she had a CT of the abdomen pelvis which showed diverticulosis however she was treated as diverticulitis with Cipro and Flagyl and given [place] for pain. She also took laxatives and it was recommended she did enemas. She states that he had diarrhea for few days but otherwise improved. Patient did have a CT of the abdomen pelvis with IV contrast which shows nonspecific eduardo mesentery within the abdomen. The radiologist does speculate one possible etiology could be mesenteric panniculitis. There is nonspecific circumferential wall thickening of the bladder. Her urinalysis is negative. Depakote level is normal. Patient was discussed with Dr. Rivera and he recommended giving the patient a dose of Solu-Medrol here 125 mg. He stated that usually 1 something like this happens its most common to be due to an autoimmune problem. He recommended discharging home on prednisone 20 mg daily, dicyclomine 10 mg every 6 hours, Colace 100 mg t wice daily and having her make a follow-up appointment with him in office. She is provided all these prescriptions and request Zofran prior to discharge. He is given return precautions. Impression: 1. Abdominal pain 2. Mesenteric inflammation 3. Constipation 4. Diarrhea 5. Nausea Lab Data Labs: Laboratory Results - last 24 hr 12/14/21 12/14/21 12/14/21 17:15 18:10 18:15 Sodium Cancelled Potassium Cancelled Chloride Cancelled Carbon Dioxide Cancelled Anion Gap Cancelled BUN Cancelled Creatinine Cancelled Est GFR (MDRD) Af Amer Cancelled Est GFR (MDRD) Non-Af Cancelled BUN/Creatinine Ratio Cancelled Glucose Cancelled Calcium Cancelled Total Bilirubin Cancelled AST Cancelled ALT Cancelled Alkaline Phosphatase Cancelled Total Protein Cancelled Albumin Cancelled Globulin Cancelled Albumin/Globulin Ratio Cancelled Lipase 69 L Urine Color Yellow Urine Clarity Clear Urine pH 6.5 Ur Specific [place] 1.015 Urine Protein 15 H Urine Glucose (UA) Normal Urine Ketones Negative Urine Occult Blood 10 H Urine Nitrite Negative Urine Bilirubin Negative Urine Urobilinogen Normal Ur Leukocyte Esterase Negative Urine RBC 0 SEEN Urine WBC 0 SEEN Ur Squamous Epith Cells 0-5 SEEN Urine Bacteria 0 SEEN Urine Mucus 0 SEEN Valproic Acid 48 L Radiography Diagnostic Testing: Clinical Impression(s) from Imaging Studies Abdomen/Pelvis CT 12/14/21 18:14 IMPRESSION: Nonspecific eduardo mesentery within the abdomen. One possible etiology is mesenteric panniculitis. Mild circumferential wall thickening of the bladder. Correlate with urinalysis for possible cystitis. Electronically Signed: Naif Callahan MD at 19:54 EST , Discharge Plan Triage Chief Complaint: Abd Pain ED Provider: Fly Tolentino Dx/Rx/DC Orders Instructions: ED Abdominal Pain Unkn Cause Fem Prescriptions: New dicyclomine 10 mg capsule 10 mg PO .QID PRN (Reason: Abdominal cramping) Qty: 40 RF: 0 prednisone 10 mg tablet 10 mg PO DAILY Qty: 10 RF: 0 ondansetron 4 mg tablet,disintegrating 4 mg PO Q8H PRN (Reason: nausea and vomiting) Qty: 20 RF: 0 docusate sodium [Colace] 100 mg capsule 100 mg PO DAILY Qty: 14 RF: 0 No Action lansoprazole 30 MG capsule 15 mg PO DAILY RF: 0 desog-e.estradiol/e.estradiol 1 EACH tablet 2 mg PO DAILY RF: 0 bupropion HCl 100 mg tablet 100 mg PO DAILY RF: 0 quetiapine 25 MG tablet 50 mg PO DAILY RF: 0 trazodone 50 MG tablet 50 mg PO QHS RF: 0 lamotrigine [Lamictal] 200 mg tablet 200 mg PO QHS RF: 0 divalproex [Depakote ER] 500 mg tablet extended release 24 hr 500 mg PO QHS RF: 0 desvenlafaxine succinate [Pristiq] 25 mg tablet extended release 24 hr 50 mg PO DAILY RF: 0 atorvastatin 20 mg tablet 20 mg PO DAILY Qty: 30 RF: 1 aspirin [Adult Aspirin Regimen] 81 mg tablet,delayed release (DR/EC) 81 mg PO DAILY Qty: 30 RF: 1 Primary Care Provider: Sumanth Krause Referrals: Sumanth Krause MD [Primary Care Provider] - Friend,DO Ovi [STAFF PHYSICIAN] - As soon as possible Disposition Disposition: Home, Self Care
[2021-12-14] MEDS: Ondansetron 4 MG/2 ML Vial IV (18:11)
[2021-12-14] MEDS: Morphine 4 MG/ML Syringe IV (18:11)
--- NOTE | 2021-12-14 18:14 | CT_ITS ---
INDICATION: abdominal pain EXAMINATION: CT Abdomen And Pelvis W/ Contrast Injection TECHNIQUE: Helically acquired images were obtained of the abdomen and pelvis after IV contrast. A radiation dose optimization technique was used for this scan. IV Contrast dosage and agent: IV 100mL [id number] Oral contrast: None. COMPARISON: 10/30/2021. FINDINGS: Visualized lung bases: Unremarkable Liver: Unremarkable Gallbladder: Unremarkable Spleen: Unremarkable Pancreas: Unremarkable Adrenal Glands: Unremarkable Kidneys: Unremarkable Vasculature: Unremarkable GI Tract: Scattered diverticula throughout the colon without evidence of inflammation. Lymphadenopathy: None Peritoneum: No ascites. There is an appearance of eduardo mesentery within the central mesentery. Bladder: Mild circumferential wall thickening of the bladder. Reproductive organs: Unremarkable Bones/Soft tissues: No suspicious osseous or soft tissue lesions CT/Abdomen/Pelvis W IV Cont ONLY IMPRESSION: Nonspecific eduardo mesentery within the abdomen. One possible etiology is mesenteric panniculitis. Mild circumferential wall thickening of the bladder. Correlate with urinalysis for possible cystitis. Electronically Signed: Naif Callahan MD at 19:54 EST ,
[2021-12-14 18:27] LABS: Bacteria 0 SEEN /hpf (None Seen); Mucous, Urine 0 SEEN /hpf (<or=2+); Red Blood Cells-Urine 0 SEEN /hpf (0-5); White Blood Cells 0 SEEN /hpf (0-5)
[2021-12-14 18:28] LABS: Color, Urine Yellow (Yellow); Glucose, Dipstick Normal (Normal); Ketone-Dipstick Negative (Negative); Leukocyte Esterase-Dipstick Negative /ul (Negative); Nitrite-Dipstick Negative (Negative); Occult Blood-Urine 10 /ul (Negative); Protein-Dipstick 15 mg/dl (Negative); Specific Gravity, Urine 1.015 (1.002-1.030); Urine Bilirubin Dipstick Negative (Negative); Urine Clarity Clear (Clear); Urine Urobilinogen Normal (Normal); Urine pH 6.5 (5.0 - 8.0)
[2021-12-14 18:39] LABS: Lipase 69 U/L (73-393)
[2021-12-14 18:41] LABS: Squamous Epithelial Cells - UA 0-5 SEEN /hpf (5-10)
[2021-12-14 18:51] LABS: Valproic Acid (Depakene) Level 48 ug/mL (50-100)
[2021-12-14] MEDS: HYDROmorphone 0.5 MG/0.5 ML SYRINGE IV (19:48)
[2021-12-14 19:52] VITALS: BP 147/99; PULSE 88; RESP 18; O2SAT 98
[2021-12-14] MEDS: Dicyclomine 10 MG Capsule PO (20:44)
[2021-12-14] MEDS: MethylPREDNISolone 125 MG/2 ML Vial IV (20:44)
[2021-12-14] MEDS: Ondansetron 8 MG Tablet 4 MG PO (21:46)
--- NOTE | 2021-12-14 22:18 | ED.RN ---
PT ATTEMPTING TO EAT AND DRINK.
[2021-12-14 22:45] VITALS: BP 162/89; PULSE 90; RESP 16; O2SAT 98
== END 2021-12-14 22:47 | disposition home or self-care (01) ==
PROVIDERS: Emergency Provider Student in an Organized Health Care Education/Training Program; PCP Family Medicine; Visit Provider Student in an Organized Health Care Education/Training Program
DX: R10.9 Unspecified abdominal pain (principal); K55.1 Chronic vascular disorders of intestine; K59.00 Constipation, unspecified; R19.7 Diarrhea, unspecified; R11.0 Nausea; I25.10 Atherosclerotic heart disease of native coronary artery without angina pectoris; K21.9 Gastro-esophageal reflux disease without esophagitis; I25.2 Old myocardial infarction; F41.9 Anxiety disorder, unspecified; F32.A Depression, unspecified; Z86.16 Personal history of COVID-19; Z79.82 Long term (current) use of aspirin; Z79.899 Other long term (current) drug therapy
CPT/HCPCS: 74177; 80164; 81001; 83690; 96374; 96375; 99282; J7030; Q9967; A4216; J2405

== ENCOUNTER 2022-01-08 08:28 | Outpatient (CLI) | payer BC, SELFPAY ==
--- NOTE | 2022-01-08 08:34 | US_ITS ---
STUDY: ABDOMINAL ULTRASOUND - RIGHT UPPER QUADRANT REASON FOR VISIT: Female, 51 years old liver evaluation, fatty liver, hepatomegaly TECHNIQUE: Ultrasound evaluation of the right upper quadrant was performed with real-time and static almeida-scale imaging. TECHNICAL QUALITY: Adequate. COMPARISON: None. FINDINGS: Liver: The liver measures 15.3 cm. There is increased echogenicity consistent with fatty infiltration. The bile ducts are within normal limits. There is hepatic color flow. The direction of portal flow is hepatopetal. There is no demonstrated mass lesion. Gallbladder: The patient is status post cholecystectomy. Common Bile Duct (C.B.D.): The common bile duct measures 8 mm. Pancreas: Normal size of the head, body and tail of the pancreas. There is normal echogenicity of the pancreas. There is no demonstrated pancreatic mass or cyst. Right Kidney: Normal size of the right kidney. The right kidney measures 9.3 cm x 4.6 cm x 4.1 cm. Normal renal cortex. The right cortex measures 0.9 cm. There is no demonstrated renal mass or cyst. There is no right hydronephrosis. IMPRESSION: Fatty infiltration of the liver. Electronically Signed: Rishi Hunt MD at 11:58 EST , STUDY: ABDOMINAL ULTRASOUND - ELASTOGRAPHY REASON FOR VISIT: Female, 51 years old. TECHNIQUE: Liver stiffness measurements were obtained on a Unitask 85 ultrasound machine using a CA 1-7 probe following the SRU guidelines. 3 measurements were obtained using a 2-D-SWE method. The IQR/M was 12% suggesting a quality data set. TECHNICAL QUALITY: Adequate. COMPARISON: Comparison is made with prior examination done earlier in the day. FINDINGS: Liver: Fatty infiltration of the liver. Median liver stiffness measured 5.4 kPa. US/Abdomen Limited IMPRESSION: Liver stiffness measures 5.4 kPa compatible with F1 Metavir score. Electronically Signed: Rishi Hunt MD at 11:59 EST ,
== END 2022-01-08 23:59 | disposition home or self-care (01) ==
LOC: US 08:33
PROVIDERS: PCP Family Medicine; Referring Provider Internal Medicine Gastroenterology; Visit Provider Internal Medicine Gastroenterology
DX: K76.0 Fatty (change of) liver, not elsewhere classified (principal)
CPT/HCPCS: 76705; 76981

== ENCOUNTER 2022-01-09 17:29 | Outpatient (CLI) | payer BC, SELFPAY | END 2022-01-09 23:59 | disposition home or self-care (01) | PROVIDERS: PCP Family Medicine; Visit Provider Family Medicine | DX: R39.9 Unspecified symptoms and signs involving the genitourinary system (principal) | CPT/HCPCS: 87086; 87088 ==

== ENCOUNTER 2022-02-13 09:39 | Day surgery (SDC) | payer BC, SELFPAY ==
--- NOTE | 2022-02-13 09:57 | PCM.HP.BLA ---
History and Physical Date of Admission: 02/13/22 51 F who presents to the office today for PCP referred to office due to recurrent presentations to ED for abdominal issues as listed below. Presented to [facility] ED 12.14.21 for evaluation of cramping abdominal pain, constipation reports a couple BM a week and nausea; onset lifelong. Using miralax which aides in promotion of BM but stool continues to be hard. Currently having problems with nausea without vomiting that she feels is related to constipation. She was discharged with prednisone 20mg QD, dicyclomine 10mg Q6H and Colace 100mg BID. States she has been seen prior with EGD and colonoscopy performed with diagnosis of constipation and reports she was told her stomach it was red and raw. CT abd/pel with contrast 12.14.21 found scattered diverticula throughout colon without evidence of inflammation. Hope mesentery within central mesentery of peritoneum, query mesenteric panniculitis. Mild circumferential wall thickening of urinary bladder, query cystitis. CT 10.30.21 noted decreased attenuation of the liver. Gastric emptying study performed 08.19.19 with normal results at 46.26 minutes (normal 12-56). EGD performed 08.17.[address] Osito Richter for suspected esophageal reflux. LA Grade A esophagitis. Diffuse mildly erythematous mucosa without bleed in gastric antrum. Food residue in greater curvature of stomach. With recommendation of gastric emptying study. She has multiple family members with bowel issues. Two females in her family have had large bowel removed due to severe constipation. ROS Const Constitutional: No anorexia, fatigue, fever(s), weight change or sleep problems Eyes Eyes: No change in vision ENT ENT: No abnormal hearing, difficulty swallowing, mouth lesions, tongue swelling or throat swelling Resp Respiratory: No cough or shortness of breath Cardio Cardiology: No chest pain at rest, chest pain with exertion, shortness of breath or dyspnea on exertion Gastro GI: No difficulty swallowing Genitourinary-Female: No difficulty urinating or burning urination Musc Musculoskeletal: No joint pain, joint swelling, muscle weakness or decreased muscle mass Skin Skin: No hair loss in leg, yellowing of the eye, itchy eyes, rash, skin ulcer or skin swelling Neuro Neurology: No abnormal hearing, abnormal movements, confusion, unsteady gait/balance or memory loss Psych Psychiatric: No anxiety, No confusion and No memory loss Endo Endocrine: No fatigue or weight change Aller/Imm Allergy/Immunologic: No itchy eyes, throat swelling or tongue swelling Tony/Lymp Hematologic/Lymphatic: No easy bleeding, easy bruising or enlarged lymph nodes Quality Reporting Tobacco Screening ([facility] 138) Smoking Status: Never smoker Assessment and Plan Assessment and Plan (1) Fatty liver: Status: Acute Orders: Orders: Abdomen Limited 12/28/21 Elastography Parenchyma/Organ 12/28/21 HIV - [facility] 12/28/21 CRP 12/28/21 Ferritin 12/28/21 LDH 12/28/21 Hemoglobin A1c 12/28/21 Erythrocyte Sed Rate 12/28/21 Anti-Mitochondrial AB 12/28/21 Hepatitis Panel Acute 12/28/21 Angiotensin Convert Enzyme 12/28/21 AFP, Tumor Marker 12/28/21 ANCA 12/28/21 Anti-Smooth Muscle ABS 12/28/21 Ceruloplasmin 12/28/21 Copper, Serum or Plasma 12/28/21 Haptoglobin 12/28/21 Miscellaneous Lab Procedure 12/28/21 Comprehensive Metabolic Profil 12/28/21 Prothrombin Time w/INR 12/28/21 CBC W/Diff, Automated 12/28/21 Plan - Dr. Dior Friend, DO: She will need a work-up for the hepatomegaly and fatty infiltration of her liver to see if there is any signs of scarring. We will do this with elastography. We will also do a biochemical work-up for chronic liver disease. (2) Abdominal pain: Status: Inactive Orders: Orders: Colonoscopy Today EGD Today Plan - Dr. Dior Friend, DO: Her abdominal pain does not have any focality which makes me suspicious that this is a mesenteric panniculitis that was seen on imaging. This can be associated with inflammatory bowel disease. She should undergo a colonoscopy to evaluate her lower GI tract with intubation of the terminal ileum. For her cramping I will put her on Levsin therapy to take every 8 hours as needed for abdominal pain. We will also evaluate her upper GI tract for peptic ulcer disease, celiac disease, enteritis. Plan Details Other Medications: New: hyoscyamine sulfate (Levsin) 0.125 mg PO TID PRN 90 tabs 0RF dyspepsia I have re-examined the patient. There are no clinical changes since date of exam.
[2022-02-13 10:18] VITALS: BP 118/80; PULSE 85; RESP 16; TEMP 36.6; O2SAT 100; BMI 22.2
[2022-02-13] MEDS: Lactated Ringers 1,000 ML 15 ML IV (10:25)
--- NOTE | 2022-02-13 10:45 | IMM_PTH ---
PATIENT: GISELA TURNER LOC: EN U#:[id number] AGE/SX: 51/F ROOM: RE02/13/[address]: Dr. Ovi Rivera DO : 1970 BED: DIS: 02/13/2022 SPEC #: [id number] RECD: 02/14/22 12:54 STATUS: PEG REQ #: [id number] JOSAFAT: 02/13/22 10:[address]: Ovi Rivera DEPT: IMMUNOHISTOCHEMISTRY RECD BY: Hannah Rolon ENTERED: 02/14/22 12:59 SP TYPE: IMMUNO OTHR DR: Dr. Sumanth Krause MD Tissues: B - Stomach, NOS Procedures: H Pylori (initial) PHYSICIAN & INSTITUTION [place] [id number] SPECIMEN INFORMATION: Tissue Source: B ? Gastric antrum biopsy Clinical Info: Fatty liver, abdomen pain Specimen Number: [id number] CPT code: 29814 METHODOLOGY: Deparaffinized sections of prefer/formalin-fixed tissue or PAP/DQ stained slides are incubated with monoclonal/polyclonal antibodies/oligonucleotide probes. Localization is made via biotin free immunoperoxidase method. Appropriate controls are performed and reacted as expected. Results on target cell population are indicated in the following table: RESULTS: ANTIBODY / CLONE RESULT Block B H Pylori (polyclonal) negative These tests were developed and their performance characteristics determined by [facility]. They may not have been cleared or approved by the U.S. Food and Drug Administration. The FDA has determined that such clearance or approval is not necessary. The above immunohistochemical/dualISH markers are ordered and reviewed by the Pathologist. INTERPRETATION: B. Gastric antrum, biopsy: Negative for Helicobacter pylori organisms. RAIMUNDO:mickey 02/15/2022
--- NOTE | 2022-02-13 10:45 | COLBX_PTH ---
PATIENT: GISELA TURNER LOC: EN U#:[id number] AGE/SX: 51/F ROOM: RE02/13/[address]: Dr. Ovi Rivera DO : 1970 BED: DIS: 02/13/2022 SPEC #: [id number] RECD: 02/13/22 15:00 STATUS: PEG CANDIDA #: [id number] JOSAFAT: 02/13/22 10:[address]: Ovi Rivera DEPT: SURGICAL PATHOLOGY RECD BY: Raleigh Ospina ENTERED: 02/14/22 08:49 SP TYPE: COLON BX OTHR DR: Dr. Sumanth Krause MD Tissues: A - Duodenum, NOS B - Gastric mucous membrane C - Gastric mucous membrane D - Esophagus, NOS E - Ascending colon F - Ileum, NOS G - COLON BIOPSY Procedures: Special Stain Group II Surgery Specimen Level IV Alcian Blue/PAS (control) HEADER OPERATION: [place] [place] DIAGNOSIS: Fatty liver, abdomen pain TISSUE SUBMITTED: A ? Duodenum biopsy, B ? Gastric antrum biopsy, C ? Gastric body biopsy, D ? Distal esophagus biopsy, E ? Ascending colon polyp biopsy, F ? Terminal ileum biopsy, G ? Random colon biopsies MICROSCOPIC DIAGNOSIS A. Duodenum, biopsy: Fragments of duodenal mucosa, no pathologic diagnosis. B. Gastric antrum, biopsy: Minimal gastritis. See microscopic description and comment. C. Gastric body, biopsy: Minimal gastritis. Focal intestinal metaplasia. See microscopic description. D. Distal esophagus, biopsy: Fragments of gastroesophageal mucosa with mild chronic inflammation. Intestinal metaplasia (goblet cell metaplasia) is not identified. See comment. E. Ascending colon polyp, biopsy: Tubular adenoma. F. Terminal ileum, biopsy: A fragment of small intestinal mucosa, no pathologic diagnosis. G. Colon, random biopsy: Fragments of colonic mucosa with a few pigment laden macrophages suggestive of melanosis coli. SJ:mickey 02/15/2022 COMMENT B. The results of immunohistochemistry for Helicobacter pylori will be reported separately ([id number]). C & D. Alcian blue/PAS stain with matched control is used in the evaluation of the specimen. MICROSCOPIC DESCRIPTION Slides are reviewed. B. The specimen shows fragments of gastric mucosa with chronic inflammatory cell infiltrates in the lamina propria consisting of lymphocytes and plasma cells, consistent with minimal chronic gastritis. C. The specimen shows fragments of gastric mucosa with chronic inflammatory cell infiltrates in the lamina propria consisting of lymphocytes and plasma cells, consistent with minimal chronic gastritis. Focal intestinal metaplasia is also noted. GROSS DESCRIPTION A - Received in fixative is one container labeled with the patient's name and designated duodenum biopsy. The specimen consists of multiple irregular fragments of light silveira soft tissue that in aggregate measure 1 x 0.3 x 0.1 cm. The specimen is totally submitted in one cassette. B - Received in fixative is one container labeled with the patient's name and designated gastric antrum biopsy. The specimen consists of one irregular fragment of light silveira soft tissue that measures 0.4 x 0.3 x 0.1 cm. The specimen is totally submitted in one cassette. C - Received in fixative is one container labeled with the patient's name and designated gastric body biopsy. The specimen consists of multiple irregular fragments of light silveira soft tissue that in aggregate measure 0.6 x 0.5 x 0.1 cm. The specimen is totally submitted in one cassette. D - Received in fixative is one container labeled with the patient's name and designated distal esophagus biopsy. The specimen consists of two irregular fragments of light silveira soft tissue that in aggregate measure 0.5 x 0.2 x 0.1 cm. The specimen is totally submitted in one cassette. E - Received in fixative is one container labeled with the patient's name and designated ascending colon polyp biopsy. The specimen consists of one irregular fragment of light silveira soft tissue that measures 0.3 x 0.3 x 0.1 cm. The specimen is totally submitted in one cassette. F - Received in fixative is one container labeled with the patient's name and designated terminal ileum biopsy. The specimen consists of one irregular fragment of light silveira soft tissue that measures 0.5 x 0.4 x 0.1 cm. The specimen is totally submitted in one cassette. G - Received in fixative is one container labeled with the patient's name and designated random colon biopsy. The specimen consists of multiple irregular fragments of light silveira soft tissue that in aggregate measure 2 x 0.5 x 0.1 cm. The specimen is totally submitted in one cassette. / RAIMUNDO:mickey 02/14/2022 TC:3 CPT: 43856 x7, 12603 x2
[2022-02-13 11:35] VITALS: BP 115/71; BP 118/80; PULSE 83; RESP 16; TEMP 36.2; O2SAT 99
[2022-02-13 11:40] VITALS: BP 117/75; BP 118/80; PULSE 81; RESP 16; O2SAT 100
--- NOTE | 2022-02-13 11:40 | OP.EGD_ITS ---
Patient Name: Deisi Harvey Procedure Date: 02/13/2022 10:49 AM Date of : 1970 Age: 51 Procedure: Upper GI endoscopy Indications: Epigastric abdominal pain Providers: Ovi Rivera DO Medicines: See the Anesthesia note for documentation of the administered medications Patient Profile: This is a 51 year old female. Refer to note in patient chart for documentation of history and physical. Patient has symptoms. Complications: No immediate complications. Procedure: Pre-Anesthesia Assessment: - Prior to the procedure, a History and Physical was performed, and patient medications and allergies were reviewed. The patient is competent. The risks and benefits of the procedure and the sedation options and risks were discussed with the patient. All questions were answered and informed consent was obtained. Patient identification and proposed procedure were verified by the physician in the pre-procedure area. Mental Status Examination: alert and oriented. Airway Examination: normal oropharyngeal airway and neck mobility. Respiratory Examination: clear to auscultation. CV Examination: normal. Prophylactic Antibiotics: The patient does not require prophylactic antibiotics. Prior Anticoagulants: The patient has taken no previous anticoagulant or antiplatelet agents. ASA Grade Assessment: II - A patient with mild systemic disease. After reviewing the risks and benefits, the patient was deemed in satisfactory condition to undergo the procedure. The anesthesia plan was to use moderate sedation / analgesia (conscious sedation). Immediately prior to administration of medications, the patient was re-assessed for adequacy to receive sedatives. The heart rate, respiratory rate, oxygen saturations, blood pressure, adequacy of pulmonary ventilation, and response to care were monitored throughout the procedure. The physical status of the patient was re-assessed after the procedure. After obtaining informed consent, the endoscope was passed under direct vision. Throughout the procedure, the patient's blood pressure, pulse, and oxygen saturations were monitored continuously. The colonoscope was introduced through the mouth, and advanced to the second part of duodenum. The upper GI endoscopy was accomplished without difficulty. The patient tolerated the procedure well. Moderate Sedation: Moderate (conscious) sedation was administered by the endoscopy nurse and supervised by the endoscopist. The patient's oxygen saturation, heart rate, blood pressure and response to care were monitored. Total physician intraservice time was 15 minutes. Scope In: 11:02:55 AM Scope Out: 11:08:52 AM Total Procedure Duration Time 0 hours 5 minutes 57 seconds Findings: LA Grade A (one or more mucosal breaks less than 5 mm, not extending between tops of 2 mucosal folds) esophagitis with no bleeding was found 38 to 40 cm from the incisors. Biopsies were taken with a cold forceps for histology. Verification of patient identification for the specimen was done. Estimated blood loss was minimal. The entire examined stomach was normal. Biopsies were taken with a cold forceps for histology. Verification of patient identification for the specimen was done. Estimated blood loss was minimal. The second portion of the duodenum was normal. Biopsies were taken with a cold forceps for histology. Verification of patient identification for the specimen was done. Estimated blood loss was minimal. Impression: - LA Grade A reflux esophagitis. Biopsied. - Normal stomach. Biopsied. - Normal second portion of the duodenum. Biopsied. Recommendation: - Discharge patient to home. - Resume previous diet. - Continue present medications. - Await pathology results. Procedure Code(s): --- Professional --- 50718, Esophagogastroduodenoscopy, flexible, transoral; with biopsy, single or multiple 62037, 59, Moderate sedation services provided by the same physician or other qualified health career center director performing the diagnostic or therapeutic service that the sedation supports, requiring the presence of an independent trained observer to assist in the monitoring of the patient's level of consciousness and physiological status; initial 15 minutes of intraservice time, patient age 5 years or older CPT copyright 2017 [employer]. All rights reserved. The codes documented in this report are preliminary and upon showroom sales consultant review may be revised to meet current compliance requirements. Ovi Rivera DO 02/13/2022 11:39:58 AM This report has been signed electronically. Number of Addenda: 1 Note Initiated On: 02/13/2022 10:49 AM Addendum Number: 1 Addendum Date: 08/14/2022 6:15:58 AM MAC was used as sedation for this procedure. Ovi Rivera DO 08/14/2022 6:16:02 AM This report has been signed electronically.
--- NOTE | 2022-02-13 11:41 | OP.CCLET_ITS ---
08/14/2022 Sumanth Krause [address] [place] [address] Re : Upper GI endoscopy procedure for Deisi Harvey Dear Dr. Krause This procedure was performed on Sunday, February 13, 2022. My impressions and recommendations are as follows: Impressions : - LA Grade A reflux esophagitis. Biopsied. - Normal stomach. Biopsied. - Normal second portion of the duodenum. Biopsied. Recommendations : - Discharge patient to home. - Resume previous diet. - Continue present medications. - Await pathology results. My findings are described in the full procedure note, which is enclosed. If I can be of further assistance, please feel free to contact me at . Sincerely, Ovi Rivera, 02/13/2022 11:39:58 AM This report has been signed electronically.
[2022-02-13 11:45] VITALS: BP 118/80; BP 120/77; PULSE 86; RESP 16; O2SAT 100
--- NOTE | 2022-02-13 11:47 | OP.CCLET_ITS ---
08/14/2022 Sumanth Krause [address] [place] [address] Re : Colonoscopy procedure for Deisidalila Harvey Dear Dr. Krause This procedure was performed on Sunday, February 13, 2022. My impressions and recommendations are as follows: Impressions : - Congested mucosa in the sigmoid colon. - Redundant colon. - The examined portion of the ileum was normal. Biopsied. Recommendations : - Discharge patient to home. - Resume previous diet. - Continue present medications. - Await pathology results. - Repeat colonoscopy in 5 years for surveillance. My findings are described in the full procedure note, which is enclosed. If I can be of further assistance, please feel free to contact me at . Sincerely, Ovi Rivera, 02/13/2022 11:46:11 AM This report has been signed electronically.
--- NOTE | 2022-02-13 11:47 | OP.COLON_ITS ---
Patient Name: Deisi Harvey Procedure Date: 02/13/2022 11:09 AM Date of : 1970 Age: 51 Procedure: Colonoscopy Indications: Generalized abdominal pain Providers: Ovi Rivera DO Medicines: See the Anesthesia note for documentation of the administered medications Patient Profile: This is a 51 year old female. Refer to note in patient chart for documentation of history and physical. Patient has symptoms. Last Colonoscopy: 5 years ago. Complications: No immediate complications. Procedure: Pre-Anesthesia Assessment: - Prior to the procedure, a History and Physical was performed, and patient medications and allergies were reviewed. The patient is competent. The risks and benefits of the procedure and the sedation options and risks were discussed with the patient. All questions were answered and informed consent was obtained. Patient identification and proposed procedure were verified by the physician in the pre-procedure area. Mental Status Examination: alert and oriented. Airway Examination: normal oropharyngeal airway and neck mobility. Respiratory Examination: clear to auscultation. CV Examination: normal. Prophylactic Antibiotics: The patient does not require prophylactic antibiotics. Prior Anticoagulants: The patient has taken no previous anticoagulant or antiplatelet agents. ASA Grade Assessment: II - A patient with mild systemic disease. After reviewing the risks and benefits, the patient was deemed in satisfactory condition to undergo the procedure. The anesthesia plan was to use moderate sedation / analgesia (conscious sedation). Immediately prior to administration of medications, the patient was re-assessed for adequacy to receive sedatives. The heart rate, respiratory rate, oxygen saturations, blood pressure, adequacy of pulmonary ventilation, and response to care were monitored throughout the procedure. The physical status of the patient was re-assessed after the procedure. - Prior to the procedure, a History and Physical was performed, and patient medications and allergies were reviewed. The patient is competent. The risks and benefits of the procedure and the sedation options and risks were discussed with the patient. All questions were answered and informed consent was obtained. Patient identification and proposed procedure were verified by the physician in the pre-procedure area. Mental Status Examination: alert and oriented. Airway Examination: normal oropharyngeal airway and neck mobility. Respiratory Examination: clear to auscultation. CV Examination: normal. Prophylactic Antibiotics: The patient does not require prophylactic antibiotics. Prior Anticoagulants: The patient has taken Plavix (clopidogrel), last dose was 1 day prior to procedure. ASA Grade Assessment: II - A patient with mild systemic disease. After reviewing the risks and benefits, the patient was deemed in satisfactory condition to undergo the procedure. The anesthesia plan was to use moderate sedation / analgesia (conscious sedation). Immediately prior to administration of medications, the patient was re-assessed for adequacy to receive sedatives. The heart rate, respiratory rate, oxygen saturations, blood pressure, adequacy of pulmonary ventilation, and response to care were monitored throughout the procedure. The physical status of the patient was re-assessed after the procedure. After I obtained informed consent, the scope was passed under direct vision. Throughout the procedure, the patient's blood pressure, pulse, and oxygen saturations were monitored continuously. The colonoscope was introduced through the anus and advanced to the terminal ileum. The colonoscopy was performed without difficulty. The patient tolerated the procedure well. The quality of the bowel preparation was good. Moderate Sedation: Moderate (conscious) sedation was administered by the endoscopy nurse and supervised by the endoscopist. The following parameters were monitored: oxygen saturation, heart rate, blood pressure, and response to care. Total physician intraservice time was 15 minutes. Scope In: 11:11:09 AM Scope Withdrawal Time 0 hours 12 minutes 54 seconds Scope Out: 11:29:24 AM Total Procedure Duration Time 0 hours 18 minutes 15 seconds Findings: The perianal and digital rectal examinations were normal. An area of mildly congested mucosa was found in the sigmoid colon. Estimated blood loss was minimal. The recto-sigmoid colon and sigmoid colon were moderately redundant. Biopsies were taken with a cold forceps for histology. Estimated blood loss was minimal. The terminal ileum appeared normal. Biopsies were taken with a cold forceps for histology. Verification of patient identification for the specimen was done. Estimated blood loss was minimal. Impression: - Congested mucosa in the sigmoid colon. - Redundant colon. - The examined portion of the ileum was normal. Biopsied. Recommendation: - Discharge patient to home. - Resume previous diet. - Continue present medications. - Await pathology results. - Repeat colonoscopy in 5 years for surveillance. Procedure Code(s): --- Professional --- 14165, Colonoscopy, flexible; with biopsy, single or multiple 75911, 59, Moderate sedation services provided by the same physician or other qualified health day care provider performing the diagnostic or therapeutic service that the sedation supports, requiring the presence of an independent trained observer to assist in the monitoring of the patient's level of consciousness and physiological status; initial 15 minutes of intraservice time, patient age 5 years or older CPT copyright 2017 [employer]. All rights reserved. The codes documented in this report are preliminary and upon vault clerk review may be revised to meet current compliance requirements. Ovi Rivera DO 02/13/2022 11:46:11 AM This report has been signed electronically. Number of Addenda: 1 Note Initiated On: 02/13/2022 11:09 AM Addendum Number: 1 Addendum Date: 08/14/2022 6:16:10 AM MAC was used as sedation for this procedure. Ovi Rivera DO 08/14/2022 6:16:17 AM This report has been signed electronically.
[2022-02-13 11:50] VITALS: BP 118/80; BP 124/74; PULSE 77; RESP 16; TEMP 36.2; O2SAT 100
[2022-02-13 12:23] VITALS: BP 118/80
== END 2022-02-13 23:59 | disposition home or self-care (01) ==
LOC: EN 09:42 → AC 09:43
PROVIDERS: PCP Family Medicine; Referring Provider Family Medicine; Visit Provider Internal Medicine Gastroenterology
PROC: 0DJD8ZZ Inspection of Lower Intestinal Tract, Via Natural or Artificial Opening Endoscopic (ICD-10-PCS; CPT 45378; principal; 2022-02-13 10:40)
DX: D12.2 Benign neoplasm of ascending colon (principal); F31.9 Bipolar disorder, unspecified; K76.0 Fatty (change of) liver, not elsewhere classified; Q43.8 Other specified congenital malformations of intestine; K21.00 Gastro-esophageal reflux disease with esophagitis, without bleeding; K29.70 Gastritis, unspecified, without bleeding; I25.10 Atherosclerotic heart disease of native coronary artery without angina pectoris; Z86.16 Personal history of COVID-19; F41.9 Anxiety disorder, unspecified; Z87.19 Personal history of other diseases of the digestive system; Z79.899 Other long term (current) drug therapy
CPT/HCPCS: 45380; 43239; 88305; 88313; 88342; J7120

== ENCOUNTER 2022-03-16 15:10 | Emergency (ER) | payer BC, SELFPAY ==
[2022-03-16 15:11] VITALS: BP 144/93; PULSE 82; RESP 16; TEMP 36.2; O2SAT 98; BMI 23.3
--- NOTE | 2022-03-16 15:30 | EX.ED.DYSGE1 ---
HPI <HERNÁN Villar - Last Filed: 03/16/22 17:22> History of Present Illness Chief Complaint: Abd Pain Narrative Narrative: Patient with history of GERD, fatty liver presents with abdominal pain and constipation. She has a long history of the symptoms. EGD and colonoscopy were performed on 02/13/[address] Rivera. EGD showed reflux esophagitis and gastritis. Colonoscopy showed nonspecific findings and a precancerous polyp otherwise no evidence for abnormality. GI prescribed PPI, Carafate, and Linzess. She has been taking these without significant improvement in abdominal pain or constipation. States last BM was yesterday and it was very small slightly larger than appellate. No melena or hematochezia. Since her procedure she is continue to feel bloated but today the pain and bloating is worse. Previous surgeries include cholecystectomy, hysterectomy [facility] <HERNÁN Villar - Last Filed: 03/16/22 17:22> [facility] Medical History (Updated 03/16/22 @ 17:14 by HERNÁN Villar) Anorexia Anxiety Bipolar disease, chronic Cardiology follow-up encounter Cervical radiculopathy COVID-19 virus detected (08/29/20) Degenerative disc disease, cervical Depression Elevated troponin level Epigastric abdominal pain Fatty liver Frequent headaches GERD (gastroesophageal reflux disease) History of diverticulitis History of echocardiogram History of edema Non-smoker Nonobstructive atherosclerosis of coronary artery NSTEMI, initial episode of care (10/07/21) Shortness of breath on exertion Vertigo Home Medications desog-e.estradiol/e.estradiol 2 mg PO DAILY 08/25/13 [History Last Taken 10/29/21] quetiapine 50 mg PO QHS 10/07/18 [History Last Taken 10/29/21] bupropion HCl 100 mg tablet 100 mg PO DAILY tab 08/09/19 [History Last Taken 10/29/21] trazodone 50 mg PO QHS 01/03/20 [History Last Taken 10/29/21] desvenlafaxine succinate [Pristiq] 50 mg PO DAILY 04/14/21 [History Last Taken 10/29/21] divalproex [Depakote ER] 500 mg PO QHS 04/14/21 [History Last Taken 10/29/21] lamotrigine [Lamictal] 200 mg PO QHS 04/14/21 [History Last Taken 10/29/21] aspirin [Adult Aspirin Regimen] 81 mg PO DAILY #30 tab 10/08/21 [Rx Last Taken 10/29/21] ondansetron 4 mg PO Q8H PRN #20 tab 12/14/21 [Rx Last Taken Unknown] atorvastatin 20 mg tablet 20 mg PO DAILY #90 tab 12/25/21 [Rx Last Taken Unknown] docusate sodium [Colace] 100 mg PO PRN PRN 02/11/22 [History Last Taken Unknown] sucralfate 100 mg/mL oral suspension 10 ml PO QAC #1000 ml 02/19/22 [Rx Last Taken Unknown] pantoprazole 40 mg tablet,delayed release 40 mg PO BID #60 tab 02/27/22 [Rx Last Taken Unknown] magnesium citrate 300 ml PO X1 #1 bottle 03/16/22 [Rx Last Taken Unknown] Allergy/AdvReac Type Severity Reaction Status Date / Time verapamil Allergy Mild Rash Verified 03/16/22 15:11 amoxicillin [Amoxicillin] Allergy Hives Verified 03/16/22 15:11 sulfamethoxazole Allergy Rash Verified 03/16/22 15:11 [From Septra] trimethoprim [From Septra] Allergy Rash Verified 03/16/22 15:11 diphenhydramine AdvReac Other Verified 03/16/22 15:11 [From Benadryl] olanzapine [From Zyprexa] AdvReac Unknown Verified 03/16/22 15:11 oxcarbazepine AdvReac Unknown Verified 03/16/22 15:11 [From Trileptal] sumatriptan [From Imitrex] AdvReac Other Verified 03/16/22 15:11 zolmitriptan [From Zomig] AdvReac Unknown Verified 03/16/22 15:11 AVALOX AdvReac Unknown Uncoded 03/16/22 15:11 Family History Mother CVA (cerebral vascular accident) Surgical History History of carpal tunnel release History of cholecystectomy History of hysterectomy History of left heart catheterization (10/08/21) History of nasal septoplasty History of tonsillectomy and adenoidectomy Social History household members: spouse Smoking Status: Never smoker alcohol intake: never substance use type: does not use ROS <HERNÁN Villar - Last Filed: 03/16/22 17:22> ROS ED ROS Narrative Constitutional: Negative for fever, chills, malaise. Eyes: Negative for visual change. ENT: Negative for sore throat, ear pain, rhinorrhea. CVS: Negative for palpitations, chest pain, syncope. Respiratory: Negative for shortness of breath, cough, orthopnea. GI: Positive for abdominal pain, constipation. Negative for nausea, vomiting, diarrhea, melena, hematochezia. : Negative for dysuria, hematuria or frequency. Neuro: Negative for headache, motor/sensory dysfunction. Skin: Negative for rash, abscess, or wound. Musc: Negative for joint pain, swelling, trauma. Heme: Negative for easy bruising, bleeding, lymphadenopathy. EXAM <HERNÁN Villar - Last Filed: 03/16/22 17:22> Physical Exam Narrative Exam Narrative: CONST: Patient sitting in no acute distress. EYES: Normal inspection. ENT: Normal inspection, moist mucous membranes. NECK: Normal inspection. RESP: No respiratory distress, CTAB. CVS: Regular rate and rhythm, no murmur, no gallop. ABD: Soft with diffuse tenderness, no guarding or rebound, nondistended. Normal bowel sounds x4. VIET: No stool present, no masses or tenderness. SKIN: Color normal, no rash, warm, dry, intact. EXTREMITIES: Normal appearance, no pedal edema. NEURO: Oriented x4. PSYCH: Normal affect. Const Vital Signs: 03/16/22 15:11 03/16/22 17:17 Temperature 97.2 F L Temperature Source Temporal Pulse Rate 82 83 Respiratory Rate 16 14 Blood Pressure 144/93 H 147/99 H Blood Pressure Mean 110 115 Pulse Ox 98 Oxygen Delivery Method Room Air <Dr. Herb Sherman DO - Last Filed: 03/17/22 00:22> Physical Exam Const Vital Signs: 03/16/22 15:11 03/16/22 17:17 Temperature 97.2 F L Temperature Source Temporal Pulse Rate 82 83 Respiratory Rate 16 14 Blood Pressure 144/93 H 147/99 H Blood Pressure Mean 110 115 Pulse Ox 98 Oxygen Delivery Method Room Air [facility] <HERNÁN Villar - Last Filed: 03/16/22 17:22> [facility] Narrative Medical decision making narrative: Patient presents with acute on chronic abdominal pain and constipation. She did have a small bowel movement yesterday but feels very bloated and has decreased appetite. No nausea or vomiting. She appears well and nontoxic. Vital signs within normal limits. She has a soft abdomen with diffuse tenderness but no peritoneal signs. On rectal exam there is no stool present. Labs were obtained and are unremarkable. CT of the abdomen/pelvis shows no acute process. On our review does have a moderate amount of stool. She has been taking Linzess without improvement. She does not take MiraLAX because it causes her too much cramping. I prescribed magnesium citrate and also recommended she call Dr. Rivera on Friday for follow-up to tell him the Linzess has not been helping. Patient counseled on return precautions and discharged in stable condition. 1. Chronic abdominal pain 2. Constipation Lab Data Labs: Laboratory Results - last 24 hr 03/16/22 03/16/22 15:30 15:30 WBC 4.4 RBC 4.28 Hgb 12.9 Hct 37.7 MCV 88.1 MCH 30.1 MCHC 34.2 RDW Std Deviation 37.5 RDW Coeff of Stella 11.7 Plt Count 232 MPV 8.8 Immature Gran % (Auto) 0.000 Neut % (Auto) 27.1 L Lymph % (Auto) 61.6 H Johnson % (Auto) 8.2 Eos % (Auto) 2.0 Baso % (Auto) 1.1 H Absolute Neuts (auto) 1.2 L Absolute Lymphs (auto) 2.71 Nucleated RBC % 0 Sodium 138 Potassium 4.0 Chloride 101 Carbon Dioxide 34.0 H Anion Gap 3 L BUN 11 Creatinine 0.86 Estim Creat Clear Calc 64.02 Est GFR (MDRD) Af Amer 89 Est GFR (MDRD) Non-Af 74 BUN/Creatinine Ratio 12.8 Glucose 106 Calcium 8.4 L Total Bilirubin 0.30 AST 13 L ALT 17 Alkaline Phosphatase 66 Total Protein 7.4 Albumin 3.6 Globulin 3.8 Albumin/Globulin Ratio 0.9 Lipase 75 Radiography Diagnostic Testing: Clinical Impression(s) from Imaging Studies Abdomen/Pelvis CT 04/30/22 15:58 IMPRESSION: No acute abnormalities in the abdomen or pelvis. Stable size of scattered pulmonary nodules in the lung bases. Electronically Signed: Naif Callahan MD at 16:58 EDT , <Dr. Herb Sherman DO - Last Filed: 03/17/22 00:22> [facility] MDM Narrative Medical decision making narrative: I performed a history and physical examination of the patient and discussed management plan with the physician orthopaedic physician assistant. I reviewed the physician orthopaedic physician assistant's note and agree with the documented findings and plan of care. Herb Sherman DO, MS Lab Data Labs: Laboratory Results - last 24 hr 03/16/22 03/16/22 15:30 15:30 WBC 4.4 RBC 4.28 Hgb 12.9 Hct 37.7 MCV 88.1 MCH 30.1 MCHC 34.2 RDW Std Deviation 37.5 RDW Coeff of Stella 11.7 Plt Count 232 MPV 8.8 Immature Gran % (Auto) 0.000 Neut % (Auto) 27.1 L Lymph % (Auto) 61.6 H Johnson % (Auto) 8.2 Eos % (Auto) 2.0 Baso % (Auto) 1.1 H Absolute Neuts (auto) 1.2 L Absolute Lymphs (auto) 2.71 Nucleated RBC % 0 Sodium 138 Potassium 4.0 Chloride 101 Carbon Dioxide 34.0 H Anion Gap 3 L BUN 11 Creatinine 0.86 Estim Creat Clear Calc 64.02 Est GFR (MDRD) Af Amer 89 Est GFR (MDRD) Non-Af 74 BUN/Creatinine Ratio 12.8 Glucose 106 Calcium 8.4 L Total Bilirubin 0.30 AST 13 L ALT 17 Alkaline Phosphatase 66 Total Protein 7.4 Albumin 3.6 Globulin 3.8 Albumin/Globulin Ratio 0.9 Lipase 75 Radiography Diagnostic Testing: Clinical Impression(s) from Imaging Studies Abdomen/Pelvis CT 03/16/22 15:58 IMPRESSION: No acute abnormalities in the abdomen or pelvis. Stable size of scattered pulmonary nodules in the lung bases. Electronically Signed: Naif Callahan MD at 16:58 EDT , Discharge Plan Triage Chief Complaint: Abd Pain ED Provider: Renetta Mancera Dx/Rx/DC Orders Clinical Impression: Constipation, Abdominal pain Instructions: Abdominal Pain, ED Constipation (Adult) Prescriptions: New magnesium citrate Solution 300 ml PO X1 Qty: 1 RF: 0 No Action atorvastatin 20 mg tablet 20 mg PO DAILY Qty: 90 RF: 3 sucralfate 100 mg/mL suspension 10 ml PO QAC Qty: 1000 RF: 0 pantoprazole [Protonix] 40 mg tablet,delayed release (DR/EC) 40 mg PO BID Qty: 60 RF: 2 desog-e.estradiol/e.estradiol 1 EACH tablet 2 mg PO DAILY RF: 0 bupropion HCl 100 mg tablet 100 mg PO DAILY RF: 0 quetiapine 25 MG tablet 50 mg PO QHS RF: 0 trazodone 50 MG tablet 50 mg PO QHS RF: 0 lamotrigine [Lamictal] 200 mg tablet 200 mg PO QHS RF: 0 divalproex [Depakote ER] 500 mg tablet extended release 24 hr 500 mg PO QHS RF: 0 desvenlafaxine succinate [Pristiq] 25 mg tablet extended release 24 hr 50 mg PO DAILY RF: 0 aspirin [Adult Aspirin Regimen] 81 mg tablet,delayed release (DR/EC) 81 mg PO DAILY Qty: 30 RF: 1 ondansetron 4 mg tablet,disintegrating 4 mg PO Q8H PRN (Reason: nausea and vomiting) Qty: 20 RF: 0 docusate sodium [Colace] 100 mg capsule 100 mg PO PRN PRN (Reason: Constipation) RF: 0 Primary Care Provider: Sumanth Krause Referrals: Sumanth Krause MD [Primary Care Provider] - Activity Restrictions/Additional Instructions: Your CAT scan showed constipation. Blood work was normal. Please take magnesium citrate which is for constipation. Call Dr. Rivera on Friday for follow-up appointment. If symptoms worsen come back to the emergency room. Disposition Disposition: Home, Self Care Discharge Date/Time: 03/16/22 17:53
[2022-03-16] MEDS: 0.9% Normal Saline 1,000 ML 1000 ML IV (15:32)
[2022-03-16] MEDS: Morphine 4 MG/ML Syringe IV (15:33)
[2022-03-16] MEDS: Ondansetron 4 MG/2 ML Vial IV (15:33)
[2022-03-16 15:40] LABS: Absolute Lymphocyte Count 2.71 X10^3/uL (0.83-4.51); Absolute Neutrophil Count 1.2 X10^3/uL (2.0-7.7); Basophil# 0.05 X10^3/uL; Basophil% 1.1 % (0-1); Eosinophil# 0.09 X10^3/uL; Hematocrit 37.7 % (37-47); Hemoglobin 12.9 g/dL (12.0-15.0); Lymphocyte # 2.71 X10^3/ul (0.83-4.51); Lymphocyte % 61.6 % (19-41); Mean Corp Hgb Conc 34.2 g/dL (32-36); Mean Corpuscular Hgb 30.1 pg (27.0-32.0); Mean Corpuscular Volume 88.1 fL (81-99); Mean Platelet Vol. 8.8 fl (6.2-12.0); Monocyte# 0.36 X10^3/uL; Monocyte% 8.2 % (0-10); NRBC Flagged by Analyzer 0 % (0-5); Neutrophil # 1.19 X10^3/uL (2.7-7.7); Neutrophil % 27.1 % (47-70); Platelet Count 232 K/mm3 (150-450); RBC Distribution Width CV 11.7 % (11.6-14.6); RBC Distribution Width SD 37.5 fl (35.1-43.9); Red Blood Count 4.28 M/mm3 (4.2-5.4); White Blood Count 4.4 K/mm3 (4.4-11.0)
--- NOTE | 2022-03-16 15:58 | CT_ITS ---
INDICATION: abdominal pain EXAMINATION: CT Abdomen And Pelvis W/ Contrast Injection TECHNIQUE: Helically acquired images were obtained of the abdomen and pelvis after IV contrast. A radiation dose optimization technique was used for this scan. IV Contrast dosage and agent: IV 100mL Isovue-300 Oral contrast: None. COMPARISON: 12/14/2021. FINDINGS: Visualized lung bases: Stable size of scattered pulmonary nodules in the lung bases, for example a 6 mm nodule in the right lung base (image 46, series 601). Liver: Unremarkable Gallbladder: Not visualized. Spleen: Unremarkable Pancreas: Unremarkable Adrenal Glands: Unremarkable Kidneys: Unremarkable Vasculature: Unremarkable GI Tract: Unremarkable Lymphadenopathy: None Peritoneum: No ascites. Bladder: Unremarkable Reproductive organs: Unremarkable Bones/Soft tissues: 1.2 cm sclerotic lesion in the L4 vertebral body is stable in size since 2020. CT/Abdomen/Pelvis W IV Cont ONLY IMPRESSION: No acute abnormalities in the abdomen or pelvis. Stable size of scattered pulmonary nodules in the lung bases. Electronically Signed: Naif Callahan MD at 16:58 EDT ,
[2022-03-16 16:02] LABS: ALB/GLOB Ratio 0.9 RATIO (0.9-2.4); AST(SGOT) 13 U/L (15-37); Alanine Aminotransfer ALT/SGPT 17 U/L (13-56); Albumin, Serum 3.6 g/dL (3.2-5.0); Alkaline Phosphatase 66 U/L (45-117); Anion Gap 3 (5-15); BUN 11 mg/dL (7-18); BUN/Creat Ratio 12.8 RATIO (10-20); Calcium,Total 8.4 mg/dL (8.5-10.1); Chloride 101 mmol/L (98-107); Creatinine, Serum 0.86 mg/dL (0.55-1.02); EST Glomerular Filtration Rate 74 mL/min (>60); Est Glom Filt Rate - Afr Amer 89 mL/min (>60); Estimated Creatinine Clearance 64.02 ml/min; Globulin 3.8 g/dL (2.2-4.2); Glucose 106 mg/dL (74-106); Lipase 75 U/L (73-393); Protein, Total 7.4 g/dL (6.4-8.2); Sodium Level 138 mmol/L (136-145)
[2022-03-16] MEDS: Dicyclomine 10 MG Capsule 20 MG PO (17:16)
[2022-03-16 17:17] VITALS: BP 147/99; PULSE 83; RESP 14
== END 2022-03-16 17:53 | disposition home or self-care (01) ==
PROVIDERS: Emergency Provider Physician Assistant; PCP Family Medicine; Visit Provider Physician Assistant
DX: K59.00 Constipation, unspecified (principal); F31.9 Bipolar disorder, unspecified; I25.10 Atherosclerotic heart disease of native coronary artery without angina pectoris; K21.9 Gastro-esophageal reflux disease without esophagitis; K76.0 Fatty (change of) liver, not elsewhere classified; F41.9 Anxiety disorder, unspecified; Z86.16 Personal history of COVID-19; Z87.19 Personal history of other diseases of the digestive system; I25.2 Old myocardial infarction; Z79.899 Other long term (current) drug therapy; Z79.82 Long term (current) use of aspirin; G89.29 Other chronic pain
CPT/HCPCS: 74177; 80053; 83690; 85025; 96361; 96374; 96375; 99283; J7030; Q9967; A4216; J2405

== ENCOUNTER → 2022-04-17 | Outpatient (CLI) | payer BC, SELFPAY ==
--- NOTE | 2022-04-17 17:16 | RAD_ITS ---
EXAM: XR RIGHT TOES, 2 OR MORE VIEWS CLINICAL INDICATION: PAIN TECHNIQUE: Frontal, lateral and oblique views of the toes of the right foot. This report was created using [employer] report generation technology. COMPARISON: None. FINDINGS: BONES/JOINTS: Unremarkable. No acute fracture. No dislocation. SOFT TISSUES: Unremarkable. No radiopaque foreign body. RAD/Toe(s) Min 2 Views IMPRESSION: Negative right toe x-rays. Electronically Signed: Andrzej Tineo MD at 2:23 EDT ,
== END | disposition home or self-care (01) ==
LOC: MTRAD 17:08
PROVIDERS: PCP Family Medicine; Referring Provider Family Medicine; Visit Provider Family Medicine
DX: M79.674 Pain in right toe(s) (principal)
CPT/HCPCS: 73660

== ENCOUNTER → 2022-05-17 | Outpatient (CLI) | payer BC, SELFPAY | END | disposition home or self-care (01) | LOC: LABSPEC 15:41 | PROVIDERS: PCP Family Medicine; Referring Provider Otolaryngology; Visit Provider Otolaryngology | DX: Z01.818 Encounter for other preprocedural examination (principal) | CPT/HCPCS: 87635; U0003; U0005 ==

== ENCOUNTER 2022-06-03 21:47 | Emergency (ER) | payer BC, SELFPAY ==
[2022-06-03 21:47] VITALS: BP 157/99; PULSE 75; RESP 18; TEMP 36.3; O2SAT 99; BMI 23.3
--- NOTE | 2022-06-03 22:38 | EKG12_ITS ---
Test Reason : cp Blood Pressure : / mmHG Vent. Rate : 074 BPM Atrial Rate : 074 BPM P-R Int : 170 ms QRS Dur : 074 ms QT Int : 388 ms P-R-T Axes : 072 067 076 degrees QTc Int : 430 ms Normal sinus rhythm Normal ECG Confirmed by ASA HERNÁNDEZ, DEVEN ([id number]), editorial cartoonist AMANDA OWENS ([id number]) on 06/04/2022 10:44:02 AM Referred By: Confirmed By:DEVEN BRAY MD
[2022-06-03 22:41] VITALS: O2SAT 99
--- NOTE | 2022-06-03 22:42 | RAD_ITS ---
INDICATION: chest pain EXAMINATION/TECHNIQUE: X-RAY - XR Chest 1 View COMPARISON: 10/07/2021 FINDINGS: LINES/DEVICES: None. LUNGS: No consolidation, edema or effusion. No pneumothorax. MEDIASTINUM AND CARDIOVASCULAR STRUCTURES: Cardiac silhouette not enlarged. Central airways and mediastinal contour are unremarkable. BONES AND SOFT TISSUES: Unremarkable. RAD/Chest 1 View (Portable) IMPRESSION: No acute cardiopulmonary disease. Electronically Signed: Ritesh Eric MD at 23:27 EDT ,
--- NOTE | 2022-06-03 23:11 | ED.VIS.CHEST ---
HPI History of Present Illness Chief Complaint: Chest Pain Informant: patient and spouse/S.O. Narrative Narrative: Patient sent in from PCP on-call for whom I spoke with prior to arrival. Reports sudden onset of chest tightness dyspnea prior to going to bed. No recent cough. No radicular symptoms. Seen in office earlier for migraine symptoms status post Phenergan and Toradol. Headache improved. This was around 11 AM nearly 12 hours ago. History of depression. History of hyperlipidemia denies tobacco. Denies diabetes or hypertension. No cardiac history. No recent travel, surgeries, or immobilizations. No history of PE or DVT. Sent in by primary office to rule out cardiac issues and PE. States father heart issues at the age of 67. Prior Similar Symptoms: No CVD Risk Factors: Positive for Hypercholesterolemia; Negative for Hypertension, Diabetes, Family History 1' </=55 or Smoking PE Risk Factors: Negative for Recent Travel/Surgery, Recent Immobilization, Prior DVT or PE, Cancer or OCP + Smoking + >/=35 PFSH PFSH Medical History Anorexia Anxiety Bipolar disease, chronic Cardiology follow-up encounter Cervical radiculopathy COVID-19 virus detected (08/29/20) Degenerative disc disease, cervical Depression Elevated troponin level Epigastric abdominal pain Fatty liver Frequent headaches GERD (gastroesophageal reflux disease) History of diverticulitis History of echocardiogram History of edema Non-smoker Nonobstructive atherosclerosis of coronary artery NSTEMI, initial episode of care (10/07/21) Shortness of breath on exertion Vertigo Home Medications desogestrel-e.estradiol 0.15 mg-0.02 mg(21)/e.estrad 0.01 mg(5) tablet 2 mg PO DAILY 08/25/13 [History Last Taken 10/29/21] quetiapine 25 mg tablet 50 mg PO QHS 10/07/18 [History Last Taken 10/29/21] bupropion HCl 100 mg tablet 100 mg PO DAILY 08/09/19 [History Last Taken 10/29/21] trazodone 50 mg tablet 50 mg PO QHS 01/03/20 [History Last Taken 10/29/21] desvenlafaxine succinate 25 mg tablet,extended release 24 hr (Pristiq) 50 mg PO DAILY 04/14/21 [History Last Taken 10/29/21] divalproex 500 mg tablet,extended release 24 hr (Depakote ER) 500 mg PO QHS 04/14/21 [History Last Taken 10/29/21] lamotrigine 200 mg tablet (Lamictal) 200 mg PO QHS 04/14/21 [History Last Taken 10/29/21] aspirin 81 mg tablet,delayed release (Adult Aspirin Regimen) 81 mg PO DAILY #30 tabs 10/08/21 [Rx Last Taken 10/29/21] ondansetron 4 mg disintegrating tablet 4 mg PO Q8H PRN nausea and vomiting #20 tabs 12/14/21 [Rx Last Taken Unknown] atorvastatin 20 mg tablet 20 mg PO DAILY #90 tabs 12/25/21 [Rx Last Taken Unknown] docusate sodium 100 mg capsule (Colace) 100 mg PO PRN PRN Constipation 02/11/22 [History Last Taken Unknown] Allergy/AdvReac Type Severity Reaction Status Date / Time verapamil Allergy Mild Rash Verified 06/03/22 21:51 amoxicillin [Amoxicillin] Allergy Hives Verified 06/03/22 21:51 sulfamethoxazole Allergy Rash Verified 06/03/22 21:51 [From Septra] trimethoprim [From Septra] Allergy Rash Verified 06/03/22 21:51 diphenhydramine AdvReac Other Verified 06/03/22 21:51 [From Benadryl] olanzapine [From Zyprexa] AdvReac Unknown Verified 06/03/22 21:51 oxcarbazepine AdvReac Unknown Verified 06/03/22 21:51 [From Trileptal] sumatriptan [From Imitrex] AdvReac Other Verified 06/03/22 21:51 zolmitriptan [From Zomig] AdvReac Unknown Verified 06/03/22 21:51 AVALOX AdvReac Unknown Uncoded 06/03/22 21:51 Family History Mother CVA (cerebral vascular accident) Surgical History History of carpal tunnel release History of cholecystectomy History of hysterectomy History of left heart catheterization (10/08/21) History of nasal septoplasty History of tonsillectomy and adenoidectomy Social History household members: spouse Smoking Status: Never smoker alcohol intake: never substance use type: does not use ROS ROS ED Constitutional Constitutional ED: Denies chills, fever(s) or sweats Eyes Eyes: Denies change in vision ENT ENT ED: Denies dysphagia or sore throat Cardiovascular Cardiovascular: Reports chest pain; Denies leg edema, palpitations or racing heartbeat Respiratory/Chest Respiratory/Chest: Reports dyspnea; Denies cough or dyspnea on exertion Gastrointestinal Gastrointestinal: Denies abdominal pain, diarrhea, nausea or vomiting Genitourinary Genitourinary ED: Denies dysuria, hematuria or urinary frequency Musculoskeletal Musculoskeletal: Denies back pain, extremity pain or neck pain Integumentary Denies rash or wounds Neurologic Neurologic: Denies headache(s), paresthesias or weakness EXAM Physical Exam Const Vital Signs: 06/03/22 21:47 06/03/22 22:26 06/03/22 22:41 Temperature 97.3 F L Temperature Source Temporal Pulse Rate 75 Respiratory Rate 18 Respiratory Effort Short of Breath Blood Pressure 157/99 H Blood Pressure Mean 118 Pulse Ox 99 99 Oxygen Delivery Method Room Air Room Air 06/04/22 00:39 06/04/22 01:23 Temperature Temperature Source Pulse Rate 73 69 Respiratory Rate 15 18 Respiratory Effort Blood Pressure 143/90 H 145/95 H Blood Pressure Mean 107 Pulse Ox 99 100 Oxygen Delivery Method Room Air Positive well nourished and well developed General Appearance ED: well developed and NAD HEENT Reports moist mucous membranes normocephalic and atraumatic Eyes PERRL, EOMs intact bilaterally and conjunctivae normal General Eye ED: Yes normal appearance of both eyes Neck no lymphadenopathy and supple General: Negative for tenderness Chest Wall Chest: Negative for tenderness Resp normal respiratory effort and normal air movement Effort and Inspection: symmetric chest movement; Negative for respiratory distress Cardio regular rate, regular rhythm and no murmurs Peripheral Pulses: pulses 2+ throughout GI normal to inspection, nondistended, normoactive bowel sounds and non-tender Palpation: Negative for guarding or rebound tenderness present Back/Spine no CVA tenderness and no thoracic nor lumbar tenderness Extremity normal to inspection General Extremety ED: Negative for edema or tenderness General Extremity: Negative for edema Neuro oriented x3 and no sensory deficits noted Sensorium / Orientation: awake and alert Skin no rashes or lesions noted and no wounds Heart Score History: Moderately Suspicious ECG: Normal Age: >45 - <65 years Risk Factors: 1 or 2 Risk Factors Troponin: >1 - <3 Normal Limit Score: 4 MDM MDM MDM Narrative Medical decision making narrative: Patient EKG nonspecific T wave inversion leads III. Chest x-ray 1 view reviewed by myself and read by radiology shows no acute process. Work-up was initiated. Basic labs stable initial troponin returned at 118. She is given aspirin. D-dimer also elevated 0.67. Subsequent CTA chest negative for PE noted pulmonary nodules for which she had previously. She has no tobacco history. Reevaluation the patient she was symptom-free. I evaluated records at this time noted she had an NSTEMI this past September heart cath by Dr. Soares, noted 50% lesion of the LAD start aspirin and statin at that time she follow-up in the office in December was stable continue medical management. I did speak with Dr. Soares, discussed patient's history and cath by him in September. She was symptom-free he reports awaiting the delta troponin. He states if not elevated more than 20% from initial troponin she can be sent home and follow-up with him. Repeat troponin returned lower 106. She remained symptom-free. She will be discharged with cardiology follow-up with strict return precautions. All questions were answered. Lab Data Attestation: I reviewed the patient's lab results. Labs: Laboratory Results - last 24 hr 06/03/22 06/03/22 06/03/22 22:40 22:40 23:12 WBC 6.0 RBC 4.62 Hgb 13.3 Hct 40.1 MCV 86.8 MCH 28.8 MCHC 33.2 RDW Std Deviation 38.3 RDW Coeff of Stella 12.0 Plt Count 274 MPV 8.9 Immature Gran % (Auto) 0.200 Neut % (Auto) 37.4 L Lymph % (Auto) 50.0 H Bath % (Auto) 8.8 Eos % (Auto) 2.6 Baso % (Auto) 1.0 Absolute Neuts (auto) 2.3 Absolute Lymphs (auto) 3.02 Nucleated RBC % 0 D-Dimer Quant (PE/DVT) 0.67 H* Sodium 139 Potassium 3.9 Chloride 102 Carbon Dioxide 31.0 Anion Gap 6 BUN 18 Creatinine 0.84 Estim Creat Clear Calc 65.54 Est GFR (MDRD) Af Amer 92 Est GFR (MDRD) Non-Af 76 BUN/Creatinine Ratio 21.4 H Glucose 111 H Calcium 9.3 Troponin I High Sens 118 H 06/04/22 00:25 WBC RBC Hgb Hct MCV MCH MCHC RDW Std Deviation RDW Coeff of Stella Plt Count MPV Immature Gran % (Auto) Neut % (Auto) Lymph % (Auto) Bath % (Auto) Eos % (Auto) Baso % (Auto) Absolute Neuts (auto) Absolute Lymphs (auto) Nucleated RBC % D-Dimer Quant (PE/DVT) Sodium Potassium Chloride Carbon Dioxide Anion Gap BUN Creatinine Estim Creat Clear Calc Est GFR (MDRD) Af Amer Est GFR (MDRD) Non-Af BUN/Creatinine Ratio Glucose Calcium Troponin I High Sens 106 H Radiography Chest X-Ray - ED: 1 View, Read by ED Physician and Read by Radiologist Diagnostic Testing: Clinical Impression(s) from Imaging Studies Chest X-Ray 06/03/22 22:42 IMPRESSION: No acute cardiopulmonary disease. Electronically Signed: Ritesh Eric MD at 23:27 EDT Reading Location ID and State: [address] [place] [address] Tel , Service support , Chest CTA 06/04/22 23:40 IMPRESSION: 1. No pulmonary embolism to the subsegmental level. 2. No acute cardiopulmonary disease. 3. Mild hilar lymphadenopathy. 4. Pulmonary nodules measuring up to 9 mm. *Fleischner Society Recommendations (Radiology 2005;237:395-400.) (Follow-up and management of nodules smaller than 8 mm detected incidentally at non-screening CT. Newly detected indeterminate nodule in persons 35 years of age or older.) Low risk patient: Minimal or absent history of smoking and of other known risk factors. <= 4mm: No followup needed >4-6mm: Follow-up CT at 12 months, if unchanged - no further followup >6-8mm: Initial Follow-up CT at 6-12 months, then at 18-24 months if no change >8mm: Follow-up CT at 3, 9, and 24 months; FDG PET scan; and or biopsy High risk patient: History of smoking or of other known risk factors. <= 4mm: Follow-up CT at 12 months, if unchanged - no further followup >4-6mm: Initial Follow-up CT at 6-12 months, then at 18-24 months if no change >6-8mm: Initial Follow-up CT at 3-6 months, then at 9-12 and 24 months if no change >8mm: Follow-up CT at 3, 9, and 24 months; FDG PET scan; and or biopsy Note: Non-solid (ground-glass) or partly solid nodules may require longer follow-up to Electronically Signed: Ritesh Eric MD at 0:56 EDT , EKG Initial EKG: Attestation: I personally reviewed and interpreted this EKG as follows: Comments: Sinus rate of 74, no ST changes. Isolated T wave version in aVL nonspecific. QTc 430. Discharge Plan Triage Chief Complaint: Chest Pain ED Provider: Cyrus Malave Dx/Rx/DC Orders Clinical Impression: Chest pain, Nonobstructive atherosclerosis of coronary artery, Elevated troponin, Multiple pulmonary nodules Instructions: CAD, ED Chest Pain, Uncertain Cause, ED Pulmonary Nodule, Solitary Prescriptions: No Action atorvastatin 20 mg tablet 20 mg PO DAILY Qty: 90 3RF desog-e.estradiol/e.estradiol 1 EACH tablet 2 mg PO DAILY Label Comments: hormones bupropion HCl 100 mg tablet 100 mg PO DAILY Label Comments: mood quetiapine 25 MG tablet 50 mg PO QHS trazodone 50 MG tablet 50 mg PO QHS lamotrigine [Lamictal] 200 mg tablet 200 mg PO QHS Label Comments: take 1 tablet by mouth once daily divalproex [Depakote ER] 500 mg tablet extended release 24 hr 500 mg PO QHS Label Comments: take 1 tablet by mouth once daily desvenlafaxine succinate [Pristiq] 25 mg tablet extended release 24 hr 50 mg PO DAILY Label Comments: take 1 tablet by mouth once daily aspirin [Adult Aspirin Regimen] 81 mg tablet,delayed release (DR/EC) 81 mg PO DAILY Qty: 30 1RF ondansetron 4 mg tablet,disintegrating 4 mg PO Q8H PRN (Reason: nausea and vomiting) Qty: 20 0RF docusate sodium [Colace] 100 mg capsule 100 mg PO PRN PRN (Reason: Constipation) Primary Care Provider: Sumanth Krause Referrals: Germain Soares MD [STAFF PHYSICIAN] - 3-5 Days Sumanth Krause MD [Primary Care Provider] - Activity Restrictions/Additional Instructions: You are Cleared by cardiology to be discharged home. Follow-up with Dr. Soares. Return if any worsening symptoms. Pulmonary nodules follow-up with your PCP for repeat imagings in the future. Disposition Disposition: Home, Self Care Discharge Date/Time: 06/04/22 02:02
[2022-06-03 23:34] LABS: Absolute Lymphocyte Count 3.02 X10^3/uL (0.83-4.51); Absolute Neutrophil Count 2.3 X10^3/uL (2.0-7.7); Basophil# 0.06 X10^3/uL; Eosinophil# 0.16 X10^3/uL; Eosinophils% 2.6 % (0-5); Hematocrit 40.1 % (37-47); Hemoglobin 13.3 g/dL (12.0-15.0); Lymphocyte # 3.02 X10^3/ul (0.83-4.51); Mean Corp Hgb Conc 33.2 g/dL (32-36); Mean Corpuscular Hgb 28.8 pg (27.0-32.0); Mean Corpuscular Volume 86.8 fL (81-99); Mean Platelet Vol. 8.9 fl (6.2-12.0); Monocyte# 0.53 X10^3/uL; Monocyte% 8.8 % (0-10); NRBC Flagged by Analyzer 0 % (0-5); Neutrophil # 2.26 X10^3/uL (2.7-7.7); Neutrophil % 37.4 % (47-70); Platelet Count 274 K/mm3 (150-450); RBC Distribution Width SD 38.3 fl (35.1-43.9); Red Blood Count 4.62 M/mm3 (4.2-5.4)
[2022-06-03 23:35] LABS: POSITIVE COUNT NO; POSITIVE DIFFERENTIAL NO; POSITIVE MORPHOLOGY NO
[2022-06-03 23:42] LABS: D-Dimer Quantitative (DVT/PE) 0.67 FEU/ug/m (0.27-0.49)
[2022-06-03 23:50] LABS: BUN 18 mg/dL (7-18); Creatinine, Serum 0.84 mg/dL (0.55-1.02); Glucose 111 mg/dL (74-106)
[2022-06-03 23:51] LABS: Anion Gap 6 (5-15); BUN/Creat Ratio 21.4 RATIO (10-20); Calcium,Total 9.3 mg/dL (8.5-10.1); Chloride 102 mmol/L (98-107); EST Glomerular Filtration Rate 76 mL/min (>60); Est Glom Filt Rate - Afr Amer 92 mL/min (>60); Estimated Creatinine Clearance 65.54 ml/min; Potassium 3.9 mmol/L (3.5-5.1); Sodium Level 139 mmol/L (136-145); Troponin-I HS 118 pg/mL (3.0-54.0)
[2022-06-04] MEDS: Aspirin 81 MG TAB.CHEW 324 MG PO (00:36)
[2022-06-04 00:39] VITALS: BP 143/90; PULSE 73; RESP 15; O2SAT 99
[2022-06-04 01:04] LABS: Troponin-I HS 106 pg/mL (3.0-54.0)
[2022-06-04 01:23] VITALS: BP 145/95; PULSE 69; RESP 18; O2SAT 100
--- NOTE | 2022-06-04 23:40 | CT_ITS ---
STUDY: CTA CHEST REASON FOR EXAM: Female, 51 years old. chest pain RADIATION DOSAGE (If Supplied By Facility): CTDIvol = ( 6.08 ) mGy, DLP = ( 187.13 ) mGycm TECHNIQUE: The examination was performed with the intravenous administration of IV 75mL Isovue-370. Post-processing of the angiographic images was performed, with multiplanar reformation and 3D reconstruction. Individualized dose optimization techniques were used for this CT. COMPARISON: CT chest 12/05/2021 FINDINGS: LUNGS: Multiple bilateral scattered pulmonary nodules some with partial calcification measuring up to 9 mm. AORTA/GREAT VESSELS: No aneurysm.. PULMONARY VESSELS: Normal. PLEURA: Normal. MEDIASTINUM: Mild bilateral hilar lymphadenopathy, right greater than left. UPPER ABDOMEN: Normal. BONES/SOFT TISSUES: Normal. OTHER: None. CT/CTA Chest W/WO Contrast IMPRESSION: 1. No pulmonary embolism to the subsegmental level. 2. No acute cardiopulmonary disease. 3. Mild hilar lymphadenopathy. 4. Pulmonary nodules measuring up to 9 mm. *Fleischner Society Recommendations (Radiology 2005;237:395-400.) (Follow-up and management of nodules smaller than 8 mm detected incidentally at non-screening CT. Newly detected indeterminate nodule in persons 35 years of age or older.) Low risk patient: Minimal or absent history of smoking and of other known risk factors. <= 4mm: No followup needed >4-6mm: Follow-up CT at 12 months, if unchanged - no further followup >6-8mm: Initial Follow-up CT at 6-12 months, then at 18-24 months if no change >8mm: Follow-up CT at 3, 9, and 24 months; FDG PET scan; and or biopsy High risk patient: History of smoking or of other known risk factors. <= 4mm: Follow-up CT at 12 months, if unchanged - no further followup >4-6mm: Initial Follow-up CT at 6-12 months, then at 18-24 months if no change >6-8mm: Initial Follow-up CT at 3-6 months, then at 9-12 and 24 months if no change >8mm: Follow-up CT at 3, 9, and 24 months; FDG PET scan; and or biopsy Note: Non-solid (ground-glass) or partly solid nodules may require longer follow-up to Electronically Signed: Ritesh Eric MD at 0:56 EDT ,
== END 2022-06-04 02:02 | disposition home or self-care (01) ==
PROVIDERS: Emergency Provider Emergency Medicine; PCP Family Medicine; Visit Provider Emergency Medicine
DX: R07.89 Other chest pain (principal); F31.9 Bipolar disorder, unspecified; E78.5 Hyperlipidemia, unspecified; I25.10 Atherosclerotic heart disease of native coronary artery without angina pectoris; Z87.891 Personal history of nicotine dependence; G43.909 Migraine, unspecified, not intractable, without status migrainosus; E78.00 Pure hypercholesterolemia, unspecified; R06.00 Dyspnea, unspecified; F41.9 Anxiety disorder, unspecified; Z86.16 Personal history of COVID-19; M50.10 Cervical disc disorder with radiculopathy, unspecified cervical region; K21.9 Gastro-esophageal reflux disease without esophagitis; Z87.19 Personal history of other diseases of the digestive system; I25.2 Old myocardial infarction; K76.0 Fatty (change of) liver, not elsewhere classified; Z79.899 Other long term (current) drug therapy; Z79.82 Long term (current) use of aspirin; R91.8 Other nonspecific abnormal finding of lung field; R79.89 Other specified abnormal findings of blood chemistry
CPT/HCPCS: 71045; 71275; 80048; 84484; 85025; 85379; 93005; 99285; Q9967; A4216

== ENCOUNTER → 2022-09-11 | Outpatient (CLI) | payer BC, SELFPAY ==
[2022-09-11 13:34] LABS: Absolute Lymphocyte Count 2.65 X10^3/uL (0.83-4.51); Absolute Neutrophil Count 1.7 X10^3/uL (2.0-7.7); Basophil# 0.08 X10^3/uL; Basophil% 1.6 % (0-1); Eosinophil# 0.11 X10^3/uL; Eosinophils% 2.2 % (0-5); Hematocrit 40.7 % (37-47); Hemoglobin 13.6 g/dL (12.0-15.0); Lymphocyte # 2.65 X10^3/ul (0.83-4.51); Lymphocyte % 53.2 % (19-41); Mean Corp Hgb Conc 33.4 g/dL (32-36); Mean Corpuscular Hgb 29.3 pg (27.0-32.0); Mean Corpuscular Volume 87.7 fL (81-99); Mean Platelet Vol. 8.4 fl (6.2-12.0); Monocyte# 0.48 X10^3/uL; Monocyte% 9.6 % (0-10); NRBC Flagged by Analyzer 0 % (0-5); Neutrophil # 1.66 X10^3/uL (2.7-7.7); Neutrophil % 33.4 % (47-70); Platelet Count 248 K/mm3 (150-450); RBC Distribution Width CV 11.8 % (11.6-14.6); RBC Distribution Width SD 37.9 fl (35.1-43.9); Red Blood Count 4.64 M/mm3 (4.2-5.4)
[2022-09-11 14:09] LABS: ALB/GLOB Ratio 0.8 RATIO (0.9-2.4); AST(SGOT) 13 U/L (15-37); Alanine Aminotransfer ALT/SGPT 18 U/L (13-56); Albumin, Serum 3.3 g/dL (3.2-5.0); Alkaline Phosphatase 81 U/L (45-117); Anion Gap 2 (5-15); BUN 16 mg/dL (7-18); BUN/Creat Ratio 16.4 RATIO (10-20); CRP < 2.90 mg/L (0.0-3.0); Calcium,Total 9.1 mg/dL (8.5-10.1); Chloride 100 mmol/L (98-107); Creatinine, Serum 0.98 mg/dL (0.55-1.02); EST Glomerular Filtration Rate 64 mL/min (>60); Est Glom Filt Rate - Afr Amer 77 mL/min (>60); Globulin 4.1 g/dL (2.2-4.2); Glucose 106 mg/dL (74-106); Lipase 157 U/L (73-393); Potassium 4.2 mmol/L (3.5-5.1); Protein, Total 7.4 g/dL (6.4-8.2); Sodium Level 135 mmol/L (136-145)
[2022-09-13 12:33] LABS: Haptoglobin 78 mg/dL (33-346)
== END | disposition home or self-care (01) ==
LOC: LAB 13:17
PROVIDERS: PCP Family Medicine; Referring Provider Family Medicine; Visit Provider Family Medicine
DX: K29.70 Gastritis, unspecified, without bleeding (principal); R19.7 Diarrhea, unspecified
CPT/HCPCS: 36415; 80053; 83010; 83690; 85025; 86140

== ENCOUNTER → 2022-09-12 | Outpatient (CLI) | payer BC, SELFPAY | END | disposition home or self-care (01) | PROVIDERS: PCP Family Medicine; Visit Provider Family Medicine | DX: R19.7 Diarrhea, unspecified (principal); K29.70 Gastritis, unspecified, without bleeding | CPT/HCPCS: 87506 ==

== ENCOUNTER 2022-09-17 16:37 | Outpatient (CLI) | payer BC, SELFPAY ==
[2022-09-17 17:17] LABS: Absolute Neutrophil Count 3.7 X10^3/uL (2.0-7.7); Basophil# 0.07 X10^3/uL; Eosinophil# 0.16 X10^3/uL; Eosinophils% 2.2 % (0-5); Hematocrit 40.7 % (37-47); Lymphocyte % 38.6 % (19-41); Mean Corp Hgb Conc 34.4 g/dL (32-36); Mean Corpuscular Volume 87.2 fL (81-99); Mean Platelet Vol. 8.7 fl (6.2-12.0); Monocyte# 0.49 X10^3/uL; Monocyte% 6.7 % (0-10); NRBC Flagged by Analyzer 0 % (0-5); Neutrophil # 3.73 X10^3/uL (2.7-7.7); Neutrophil % 51.4 % (47-70); Platelet Count 259 K/mm3 (150-450); RBC Distribution Width CV 11.8 % (11.6-14.6); RBC Distribution Width SD 37.8 fl (35.1-43.9); Red Blood Count 4.67 M/mm3 (4.2-5.4); White Blood Count 7.3 K/mm3 (4.4-11.0)
[2022-09-17 17:32] LABS: Erythrocyte Sedimentation Rate 8 mm/hr (0-30); Polychromasia 7.3
[2022-09-17 17:44] LABS: ALB/GLOB Ratio 0.8 RATIO (0.9-2.4); AST(SGOT) 17 U/L (15-37); Alanine Aminotransfer ALT/SGPT 19 U/L (13-56); Albumin, Serum 3.3 g/dL (3.2-5.0); Alkaline Phosphatase 91 U/L (45-117); Anion Gap 5 (5-15); BUN 12 mg/dL (7-18); BUN/Creat Ratio 14.7 RATIO (10-20); CRP 3.87 mg/L (0.0-3.0); Calcium,Total 8.9 mg/dL (8.5-10.1); Chloride 102 mmol/L (98-107); Creatinine, Serum 0.82 mg/dL (0.55-1.02); EST Glomerular Filtration Rate 78 mL/min (>60); Est Glom Filt Rate - Afr Amer 95 mL/min (>60); Ferritin 38 ng/mL (8-252); Globulin 4.2 g/dL (2.2-4.2); Glucose 117 mg/dL (74-106); LDH 158 U/L (84-246); Potassium 4.1 mmol/L (3.5-5.1); Protein, Total 7.5 g/dL (6.4-8.2); Sodium Level 137 mmol/L (136-145)
[2022-09-17 17:56] LABS: Hemoglobin A1c 5.5 % (3.8-5.6)
[2022-09-17 18:08] LABS: HIV - WCH Non-Reactive (Nonreactive)
[2022-09-17 18:27] LABS: International Normalized Ratio 0.9; Prothrombin Time (Protime)PT. 12.3 SECONDS (11.7-14.9)
[2022-09-19 16:10] LABS: Anti-Mitochondrial AB <20.0 Units (0.0-20.0)
[2022-09-20 15:08] LABS: Angiotensin Convert Enzyme 41 U/L (14-82); Ceruloplasmin 28.8 mg/dL (19.0-39.0); Cytoplasmic Ab (C-ANCA) <1:20 titer (Neg:<1:20); HEPATITIS B SURFACE AG Negative (Negative); Hep C Antibodies <0.1 s/co ratio (0.0-0.9); Hepatitis A IgM Antibody Negative (Negative); Hepatitis B Core AB IgM Negative (Negative)
[2022-09-21 18:09] LABS: AFP, Tumor Marker 2.6 ng/mL (0.0-9.2); Anti-Smooth Muscle ABS 7 Units (0-19); Copper, Serum or Plasma 119 ug/dL (80-158); Haptoglobin 118 mg/dL (33-346); Perinuclear Ab (P-ANCA) <1:20 titer (Neg:<1:20)
== END 2022-09-17 23:59 | disposition home or self-care (01) ==
PROVIDERS: PCP Family Medicine; Visit Provider Internal Medicine Gastroenterology
DX: K76.0 Fatty (change of) liver, not elsewhere classified (principal)
CPT/HCPCS: 36415; 80053; 80074; 82105; 82164; 82390; 82525; 82728; 83010; 83036; 83516; 83615; 85025; 85610; 85652; 86140; 86256; 86703

== ENCOUNTER 2022-10-03 17:52 | Outpatient (CLI) | payer BC, SELFPAY ==
[2022-10-03 17:54] LABS: Bacteria 0 SEEN /hpf (None Seen); Mucous, Urine 0 SEEN /hpf (<or=2+); Red Blood Cells-Urine 0 SEEN /hpf (0-5)
[2022-10-03 18:30] LABS: Color, Urine Yellow (Yellow); Glucose, Dipstick Normal (Normal); Ketone-Dipstick 5 mg/dl (Negative); Leukocyte Esterase-Dipstick 25 /ul (Negative); Nitrite-Dipstick Positive (Negative); Occult Blood-Urine Negative /ul (Negative); Protein-Dipstick 15 mg/dl (Negative); Urine Clarity Sl. Cloudy (Clear); Urine Urobilinogen 4 mg/dl (Normal)
[2022-10-03 18:32] LABS: Urine Bilirubin Dipstick 3 mg/dL (Negative)
[2022-10-03 18:41] LABS: Squamous Epithelial Cells - UA 0-5 SEEN /hpf (5-10); White Blood Cells 0-5 SEEN /hpf (0-5)
== END 2022-10-03 23:59 | disposition home or self-care (01) ==
PROVIDERS: PCP Family Medicine; Visit Provider Nurse Practitioner Family
DX: R30.0 Dysuria (principal)
CPT/HCPCS: 81001; 87086; 87088

== ENCOUNTER 2022-10-16 08:11 | Outpatient (CLI) | payer BC, SELFPAY ==
--- NOTE | 2022-10-16 08:15 | RAD_ITS ---
STUDY: AIR-CONTRAST UPPER GI SERIES AND SMALL BOWEL FOLLOW-THROUGH EXAMINATION. REASON FOR EXAM: Female, 52 years old. Dysphagia. Abdominal pain. Bloody stools. FLUOROSCOPY TIME (if supplied): ( 2 minutes and 3 seconds. ) minutes/seconds. 30 images were obtained. TECHNIQUE: The patient ingested barium. Images of the esophagus, stomach and duodenum were obtained. Following this, a small bowel follow-through examination was performed. COMPARISON: None. FINDINGS: The esophagus is unremarkable. No evidence of gastroesophageal reflux. No evidence of esophageal obstruction. The stomach and duodenum are unremarkable. No evidence of ulceration. No mass lesion is seen. The small bowel follow-through examination was obtained. The transit time is normal. The terminal ileum is unremarkable. RAD/Upper GI/w Small Bowel IMPRESSION: Unremarkable air contrast upper GI series and small bowel follow-through examination. Electronically Signed: Rishi Hunt MD at 15:25 EST ,
== END 2022-10-16 23:59 | disposition home or self-care (01) ==
LOC: RAD 08:11
PROVIDERS: PCP Family Medicine; Visit Provider Internal Medicine Gastroenterology
DX: R10.9 Unspecified abdominal pain (principal); R13.10 Dysphagia, unspecified
CPT/HCPCS: 74246; 74248

== ENCOUNTER → 2022-12-03 | Outpatient (CLI) | payer BC, SELFPAY ==
[2022-12-03 16:59] LABS: Absolute Lymphocyte Count 2.73 X10^3/uL (0.83-4.51); Absolute Neutrophil Count 1.4 X10^3/uL (2.0-7.7); Basophil# 0.06 X10^3/uL; Basophil% 1.3 % (0-1); Eosinophil# 0.13 X10^3/uL; Eosinophils% 2.7 % (0-5); Hematocrit 39.5 % (37-47); Hemoglobin 13.1 g/dL (12.0-15.0); Lymphocyte # 2.73 X10^3/ul (0.83-4.51); Lymphocyte % 57.4 % (19-41); Mean Corp Hgb Conc 33.2 g/dL (32-36); Mean Corpuscular Volume 87.4 fL (81-99); Mean Platelet Vol. 8.4 fl (6.2-12.0); Monocyte# 0.48 X10^3/uL; Monocyte% 10.1 % (0-10); NRBC Flagged by Analyzer 0 % (0-5); Neutrophil # 1.35 X10^3/uL (2.7-7.7); Neutrophil % 28.3 % (47-70); Platelet Count 245 K/mm3 (150-450); RBC Distribution Width CV 11.9 % (11.6-14.6); RBC Distribution Width SD 38.3 fl (35.1-43.9); Red Blood Count 4.52 M/mm3 (4.2-5.4); White Blood Count 4.8 K/mm3 (4.4-11.0)
[2022-12-03 17:28] LABS: ALB/GLOB Ratio 0.8 RATIO (0.9-2.4); AST(SGOT) 14 U/L (15-37); Alanine Aminotransfer ALT/SGPT 19 U/L (13-56); Albumin, Serum 3.4 g/dL (3.2-5.0); Alkaline Phosphatase 77 U/L (45-117); Amylase 70 U/L (25-115); Anion Gap 6 (5-15); BUN 15 mg/dL (7-18); BUN/Creat Ratio 19.9 RATIO (10-20); Calcium,Total 8.9 mg/dL (8.5-10.1); Chloride 100 mmol/L (98-107); Creatinine, Serum 0.75 mg/dL (0.55-1.02); EST Glomerular Filtration Rate 86 mL/min (>60); Est Glom Filt Rate - Afr Amer 104 mL/min (>60); Globulin 4.3 g/dL (2.2-4.2); Glucose 115 mg/dL (74-106); Lipase 308 U/L (73-393); Potassium 4.3 mmol/L (3.5-5.1); Protein, Total 7.7 g/dL (6.4-8.2); Sodium Level 137 mmol/L (136-145)
[2022-12-05 15:08] LABS: Endomysial Antibody IgA Negative (Negative)
[2022-12-05 18:58] LABS: Immunoglobulin A 360 mg/dL (87-352); t-Transglutaminase IgA <2 U/mL (0-3)
== END | disposition home or self-care (01) ==
LOC: LAB 16:42
PROVIDERS: PCP Family Medicine; Visit Provider Internal Medicine Gastroenterology
DX: R10.9 Unspecified abdominal pain (principal)
CPT/HCPCS: 36415; 80053; 82150; 82784; 83516; 83690; 85025; 86255

== ENCOUNTER 2023-04-20 15:46 | Emergency (ER) | payer BC, SELFPAY ==
[2023-04-20 15:47] VITALS: BP 157/82; PULSE 89; RESP 16; TEMP 36.6; O2SAT 97; BMI 22.8
[2023-04-20] MEDS: dexAMETHasone 10 MG/ML Vial 6 MG IV (16:47)
[2023-04-20] MEDS: Ketorolac 15 MG/ML Vial IV (16:48)
[2023-04-20] MEDS: Metoclopramide 10 MG/2 ML Vial 5 MG IV (16:49)
[2023-04-20] MEDS: 0.9% Normal Saline 1,000 ML 999 ML IV (16:52)
--- NOTE | 2023-04-20 17:16 | EX.ED.DYSGE1 ---
HPI History of Present Illness Chief Complaint: Headache [facility] Medical History Anorexia Anxiety Bipolar disease, chronic Cardiology follow-up encounter Cervical radiculopathy COVID-19 virus detected (08/29/20) Degenerative disc disease, cervical Depression Elevated troponin level Epigastric abdominal pain Fatty liver Frequent headaches GERD (gastroesophageal reflux disease) History of diverticulitis History of echocardiogram History of edema Non-smoker Nonobstructive atherosclerosis of coronary artery NSTEMI, initial episode of care (10/07/21) Shortness of breath on exertion Vertigo Home Medications desogestrel-e.estradiol 0.15 mg-0.02 mg(21)/e.estrad 0.01 mg(5) tablet 2 mg PO DAILY 08/25/13 [History Last Taken 10/29/21] quetiapine 25 mg tablet 50 mg PO QHS 10/07/18 [History Last Taken 10/29/21] bupropion HCl 100 mg tablet 100 mg PO DAILY 08/09/19 [History Last Taken 10/29/21] trazodone 50 mg tablet 50 mg PO QHS 01/03/20 [History Last Taken 10/29/21] desvenlafaxine succinate 25 mg tablet,extended release 24 hr (Pristiq) 50 mg PO DAILY 04/14/21 [History Last Taken 10/29/21] divalproex 500 mg tablet,extended release 24 hr (Depakote ER) 500 mg PO QHS 04/14/21 [History Last Taken 10/29/21] lamotrigine 200 mg tablet (Lamictal) 200 mg PO QHS 04/14/21 [History Last Taken 10/29/21] aspirin 81 mg tablet,delayed release (Adult Aspirin Regimen) 81 mg PO DAILY #30 tabs 10/08/21 [Rx Last Taken 10/29/21] ondansetron 4 mg disintegrating tablet 4 mg PO Q8H PRN nausea and vomiting #20 tabs 12/14/21 [Rx Last Taken Unknown] docusate sodium 100 mg capsule (Colace) 100 mg PO PRN PRN Constipation 02/11/22 [History Last Taken Unknown] lansoprazole 30 mg capsule,delayed release 30 mg PO DAILY #60 caps 12/17/22 [Rx Last Taken Unknown] atorvastatin 20 mg tablet 20 mg PO DAILY #90 tabs 01/16/23 [Rx Last Taken Unknown] metoclopramide HCl 5 mg tablet (Reglan) 5 mg PO Q8H PRN PRN nausea and vomiting 7 days #20 tabs 04/20/23 [Rx Last Taken Unknown] Allergy/AdvReac Type Severity Reaction Status Date / Time verapamil Allergy Mild Rash Verified 04/20/23 15:49 amoxicillin [Amoxicillin] Allergy Hives Verified 04/20/23 15:49 sulfamethoxazole Allergy Rash Verified 04/20/23 15:49 [From Septra] trimethoprim [From Septra] Allergy Rash Verified 04/20/23 15:49 diphenhydramine AdvReac Other Verified 04/20/23 15:49 [From Benadryl] moxifloxacin [From Avelox] AdvReac NEEDS Verified 04/20/23 15:49 FOLLOW-UP olanzapine [From Zyprexa] AdvReac Unknown Verified 04/20/23 15:49 oxcarbazepine AdvReac Unknown Verified 04/20/23 15:49 [From Trileptal] sumatriptan [From Imitrex] AdvReac Other Verified 04/20/23 15:49 zolmitriptan [From Zomig] AdvReac Unknown Verified 04/20/23 15:49 Family History Mother CVA (cerebral vascular accident) Surgical History History of carpal tunnel release History of cholecystectomy History of hysterectomy History of left heart catheterization (10/08/21) History of nasal septoplasty History of tonsillectomy and adenoidectomy Social History household members: spouse Smoking Status: Never smoker alcohol intake: never substance use type: does not use EXAM Physical Exam Const Vital Signs: 04/20/23 15:47 Temperature 97.8 F Temperature Source Temporal Pulse Rate 89 Respiratory Rate 16 Blood Pressure 157/82 H Blood Pressure Mean 107 Pulse Ox 97 Oxygen Delivery Method Room Air MDM MDM MDM Narrative Medical decision making narrative: HISTORY OF PRESENT ILLNESS: 52-year-old female presents with 24 hours of headache that is consistent with prior migraines. She states her symptoms started gradually. It is similar to prior headaches. Denies any trauma. Denies any recent illnesses. Denies any neck stiffness or fever. Denies any vomiting but notes nausea and photophobia. Denies any focal weakness or numbness. No family history of aneurysms or connective tissue diseases. Patient denies sudden onset or thunderclap headache, denies maximal intensity within 1 minute, vomiting, neck pain or stiffness, changes in vision, fever, history malignancy, syncope, seizures. REVIEW OF SYSTEMS: Pertinent positives: Headache Pertinent negatives: Focal weakness, syncope PHYSICAL EXAM: Nursing triage notes reviewed, Vital signs reviewed Constitutional: please see mdm HENT: MMM Eyes: Pupils equal round and reactive to light, Extraocular muscles intact Neck: No stridor, no JVD, full neck ROM Lungs: Clear to auscultation, No wheezing or rales. No increased work of breathing, no conversational dyspnea, no accessory muscle use, no nasal flaring. No respiratory distress noted Heart: Regular rate and rhythm, No murmurs, No rubs and No gallops, 2+ distal pulses (radial, femoral, posterior tibial) in all extremities Abdomen: Soft, there is no tenderness, rigidity, rebound or guarding, no obvious peritoneal signs, no palpable pulsatile abdominal masses, no auscultated abdominal bruit : No CVAT Extremities: No edema Neuro: N alert and oriented x3, neuro exam at baseline, cranial nerves II through XII are intact. No pain with extraocular muscle movement. There is negative test of skew. Normal speech. 5 of 5 strength in upper and lower extremities in flexion extension. Intact sensation to light touch in upper and lower extremity dermatomes. No truncal or extremity ataxia. No dysdiadochokinesia. Normal gait. 2+ reflexes. No meningeal signs. Negative Babinski. NIH of 0 Skin: No rash or lesions noted MEDICAL DECISION MAKING: Chief Complaint: Headache External records reviewed: CT brain from 2020 shows no acute process Factors affecting care: History of migraines Social determinants of health: Never smoker History obtained from others: The patient's Consults: None ALL IMAGES HAVE BEEN PERSONALLY REVIEWED AND INTERPRETED BY MYSELF. [facility] Narrative: The patient was hemodynamically stable, afebrile, nontoxic-appearing. She had no focal neurologic deficits. NIH was 0. I considered the following differential diagnosis: ICH, subarachnoid hemorrhage meningitis, temporal arteritis, primary headache (migraine, tension, cluster) The patient looks great and is in no significant objective discomfort currently. The patient's headache is non-specific. Exam is unremarkable. The patient is in no distress and the patient?s neurological exam is non-focal, neck is supple and without meningismus. The headache is not consistent with meningitis or infection, nor is it consistent with intracranial bleed (SAH etc.), carotid dissection, nor mass by history and examination. Medication and outpatient follow-up was instructed. The patient was instructed to return as needed or if symptoms changed or worsened, fever developed or inability to tolerate fluids. The patient agreed with plan. Total critical care time today provided was at least 0 minutes. This excludes separately billable procedures. There was a high probability of clinically significant/life threatening deterioration in the patient's condition which required my urgent intervention. Shared decision making: I will have a discussion with the patient and or visitors regarding risk/benefits of further testing or admission. They will be made aware of of the risk/benefits inherent in this decision they will be given the opportunity to voice understanding. Discharge Plan Triage Chief Complaint: Headache ED Provider: Patricio Muñoz Dx/Rx/DC Orders Clinical Impression: Headache Instructions: ED, Migraine (Classical) Prescriptions: New metoclopramide HCl [Reglan] 5 mg tablet 5 mg PO Q8H PRN PRN (Reason: nausea and vomiting) 7 Days Qty: 20 0RF No Action atorvastatin 20 mg tablet 20 mg PO DAILY Qty: 90 3RF lansoprazole 30 mg capsule,delayed release(DR/EC) 30 mg PO DAILY Qty: 60 3RF desog-e.estradiol/e.estradiol 1 EACH tablet 2 mg PO DAILY Label Comments: hormones bupropion HCl 100 mg tablet 100 mg PO DAILY Label Comments: mood quetiapine 25 MG tablet 50 mg PO QHS trazodone 50 MG tablet 50 mg PO QHS lamotrigine [Lamictal] 200 mg tablet 200 mg PO QHS Label Comments: take 1 tablet by mouth once daily divalproex [Depakote ER] 500 mg tablet extended release 24 hr 500 mg PO QHS Label Comments: take 1 tablet by mouth once daily desvenlafaxine succinate [Pristiq] 25 mg tablet extended release 24 hr 50 mg PO DAILY Label Comments: take 1 tablet by mouth once daily aspirin [Adult Aspirin Regimen] 81 mg tablet,delayed release (/EC) 81 mg PO DAILY Qty: 30 1RF ondansetron 4 mg tablet,disintegrating 4 mg PO Q8H PRN (Reason: nausea and vomiting) Qty: 20 0RF docusate sodium [Colace] 100 mg capsule 100 mg PO PRN PRN (Reason: Constipation) Stand Alone Forms: ED Work / School Excuse Primary Care Provider: Sumanth Krause Referrals: Sumanth Krause MD [Primary Care Provider] - Activity Restrictions/Additional Instructions: Thank you for trusting us with your care today! Please take Tylenol (2 pills, 650 mg), ibuprofen (2 pills, 400 mg) every 6 hours as needed for headache control. Please take Reglan for breakthrough headache that is not controlled by the above regiment. Please return to the emergency department if your symptoms change or worsen. Specifically if develop loss of vision, loss of movement, loss of sensation, slurred speech, facial drooping, inability to swallow. If you lose consciousness. Please follow with your primary care physician for further outpatient evaluation and management. Disposition Disposition: Home, Self Care
== END 2023-04-20 17:46 | disposition home or self-care (01) ==
PROVIDERS: Emergency Provider Emergency Medicine; PCP Family Medicine; Visit Provider Emergency Medicine
DX: R51.9 Headache, unspecified (principal); F31.9 Bipolar disorder, unspecified; I25.10 Atherosclerotic heart disease of native coronary artery without angina pectoris; Z79.3 Long term (current) use of hormonal contraceptives; Z79.82 Long term (current) use of aspirin; Z79.899 Other long term (current) drug therapy; K21.9 Gastro-esophageal reflux disease without esophagitis; Z90.49 Acquired absence of other specified parts of digestive tract; Z90.710 Acquired absence of both cervix and uterus
CPT/HCPCS: 96361; 96374; 96375; 99283; A4216

== ENCOUNTER → 2023-05-22 | Outpatient (CLI) | payer BC, SELFPAY ==
--- NOTE | 2023-05-22 08:00 | CT_ITS ---
STUDY: CT ABDOMEN AND PELVIS WITH CONTRAST REASON FOR EXAM: Female, 52 years old. LLQ pain. One week of rectal pain and bloating. RADIATION DOSAGE (If Supplied By Facility): CTDIvol = ( 9.36 ) mGy, DLP = ( 329.51 ) mGycm TECHNIQUE: Transaxial images were obtained from the dome of the diaphragm to the symphysis pubis without oral contrast. IV 100mL Isovue-300 was administered. Sagittal and coronal images were reconstructed. Individualized dose optimization techniques were used for this CT. COMPARISON: Comparison is made with prior study dated March 16, 2022. FINDINGS: Stable tiny nodules in both lower lobes. The visualized portions of the heart are within normal limits. Normal liver. The patient is status post cholecystectomy. Normal spleen. Normal pancreas. Normal bilateral adrenal glands. Normal right kidney. Normal left kidney. Normal visualized stomach. Normal small intestine. Moderate amount of fecal material is seen in the colon. Mild degree of thickening of the rectal wall with increased markings in the surrounding pelvic fat. Inflammation of the rectum should be ruled out. There is non-visualization of the appendix. Normal abdominal aorta. Normal inferior vena cava. Normal retroperitoneum. Normal urinary bladder. There is absence of the uterus consistent with a prior hysterectomy. Normal abdominal wall. Normal osseous structures. CT/Abdomen/Pelvis WITH Contrast IMPRESSION: Mild degree of rectal wall thickening with increased markings in the surrounding rectal fat. Inflammatory changes of the rectum should be ruled. Electronically Signed: Rishi Hunt MD at 9:48 EDT ,
== END | disposition home or self-care (01) ==
LOC: CT 07:59
PROVIDERS: PCP Family Medicine; Referring Provider Family Medicine; Visit Provider Family Medicine
DX: R10.32 Left lower quadrant pain (principal)
CPT/HCPCS: 74177; Q9967

== ENCOUNTER 2023-06-04 16:04 | Emergency (ER) | payer BC, SELFPAY ==
[2023-06-04 16:05] VITALS: BP 150/87; PULSE 83; RESP 16; TEMP 36.3; O2SAT 93; BMI 22.8
--- NOTE | 2023-06-04 16:19 | CT_ITS ---
STUDY: CT Abdomen And Pelvis W/O Contrast Injection 06/04/2023 5:03 PM REASON FOR EXAM: Female, 52 years old. ABDOMINAL PAIN abdominal pain TECHNIQUE: Transaxial images were obtained without oral contrast, and without intravenous contrast. Individualized dose optimization techniques were used for this CT. COMPARISON: 05.22.23. FINDINGS: The visualized lung bases are unremarkable. The visualized portions of the heart are within normal limits. Unremarkable liver. There is non-visualization of the gallbladder, which may be secondary to either contraction or a prior cholecystectomy. Unremarkable spleen. Unremarkable pancreas. Unremarkable bilateral adrenal glands. No acute findings of the right kidney. No acute findings of the left kidney. Unremarkable visualized stomach. Unremarkable small intestine. Stool throughout the colon. There is non-visualization of the appendix. Multiple scattered mesenteric, cecal, periappendiceal, and periaortic lymph nodes. This can suggest mesenteric adenitis. There are no acute findings of the abdominal aorta. Unremarkable inferior vena cava. Subcentimeter mesenteric lymph nodes. Unremarkable urinary bladder. There is absence of the uterus consistent with a prior hysterectomy. There is an umbilical hernia containing fat. Unremarkable osseous structures. CT/Abdomen/Pelvis without Cont IMPRESSION: (NOT LISTED IN ORDER OF SIGNIFICANCE) Constipation. Multiple scattered mesenteric, cecal, periappendiceal, and periaortic lymph nodes. This can suggest mesenteric adenitis. Other findings as above. Electronically Signed: Noé Lund MD at 17:05 EDT ,
--- NOTE | 2023-06-04 16:22 | EX.ED.DYSGE1 ---
HPI History of Present Illness Chief Complaint: Abd Pain Narrative Narrative: Patient presents with 3 weeks of epigastric pain, abdominal bloating, nausea and epigastric pain especially after she eats she has had some decreased p.o. intake recently. She has no lower abdominal pain. She has no urinary symptoms. No recent fevers or chills. Pain does not radiate into her back. She does not have any tearing sensation. [facility] Medical History Anorexia Anxiety Bipolar disease, chronic Cardiology follow-up encounter Cervical radiculopathy COVID-19 virus detected (08/29/20) Degenerative disc disease, cervical Depression Elevated troponin level Epigastric abdominal pain Fatty liver Frequent headaches GERD (gastroesophageal reflux disease) History of diverticulitis History of echocardiogram History of edema Non-smoker Nonobstructive atherosclerosis of coronary artery NSTEMI, initial episode of care (10/07/21) Shortness of breath on exertion Vertigo Home Medications desogestrel-e.estradiol 0.15 mg-0.02 mg(21)/e.estrad 0.01 mg(5) tablet 2 mg PO DAILY 08/25/13 [History Last Taken 10/29/21] quetiapine 25 mg tablet 50 mg PO QHS 10/07/18 [History Last Taken 10/29/21] bupropion HCl 100 mg tablet 100 mg PO DAILY 08/09/19 [History Last Taken 10/29/21] trazodone 50 mg tablet 50 mg PO QHS 01/03/20 [History Last Taken 10/29/21] desvenlafaxine succinate 25 mg tablet,extended release 24 hr (Pristiq) 50 mg PO DAILY 04/14/21 [History Last Taken 10/29/21] divalproex 500 mg tablet,extended release 24 hr (Depakote ER) 500 mg PO QHS 04/14/21 [History Last Taken 10/29/21] lamotrigine 200 mg tablet (Lamictal) 200 mg PO QHS 04/14/21 [History Last Taken 10/29/21] aspirin 81 mg tablet,delayed release (Adult Aspirin Regimen) 81 mg PO DAILY #30 tabs 10/08/21 [Rx Last Taken 10/29/21] ondansetron 4 mg disintegrating tablet 4 mg PO Q8H PRN nausea and vomiting #20 tabs 12/14/21 [Rx Last Taken Unknown] docusate sodium 100 mg capsule (Colace) 100 mg PO PRN PRN Constipation 02/11/22 [History Last Taken Unknown] lansoprazole 30 mg capsule,delayed release 30 mg PO DAILY #60 caps 12/17/22 [Rx Last Taken Unknown] atorvastatin 20 mg tablet 20 mg PO DAILY #90 tabs 01/16/23 [Rx Last Taken Unknown] metoclopramide HCl 5 mg tablet (Reglan) 5 mg PO Q8H PRN PRN nausea and vomiting 7 days #20 tabs 04/20/23 [Rx Last Taken Unknown] dicyclomine 10 mg capsule 10 mg PO BID PRN abdominal pain #60 caps 05/30/23 [Rx Last Taken Unknown] lactulose 10 gram/15 mL (15 mL) oral solution 10 g (15 mL) PO DAILY #750 mL 05/30/23 [Rx Last Taken Unknown] hydrocodone-acetaminophen 5-325mg 5mg-325mg 1 tab PO Q4H PRN PRN Pain 3 days #10 TABLETS 06/04/23 [Rx Last Taken Unknown] ondansetron 4 mg disintegrating tablet 8 mg (2 x 4 mg) PO Q8H PRN PRN Nausea #20 tabs 06/04/23 [Rx Last Taken Unknown] Allergy/AdvReac Type Severity Reaction Status Date / Time verapamil Allergy Mild Rash Verified 06/04/23 16:05 amoxicillin [Amoxicillin] Allergy Hives Verified 06/04/23 16:05 sulfamethoxazole Allergy Rash Verified 06/04/23 16:05 [From Septra] trimethoprim [From Septra] Allergy Rash Verified 06/04/23 16:05 diphenhydramine AdvReac Other Verified 06/04/23 16:05 [From Benadryl] moxifloxacin [From Avelox] AdvReac NEEDS Verified 06/04/23 16:05 FOLLOW-UP olanzapine [From Zyprexa] AdvReac Unknown Verified 06/04/23 16:05 oxcarbazepine AdvReac Unknown Verified 06/04/23 16:05 [From Trileptal] sumatriptan [From Imitrex] AdvReac Other Verified 06/04/23 16:05 zolmitriptan [From Zomig] AdvReac Unknown Verified 06/04/23 16:05 Family History Mother CVA (cerebral vascular accident) Surgical History History of carpal tunnel release History of cholecystectomy History of hysterectomy History of left heart catheterization (10/08/21) History of nasal septoplasty History of tonsillectomy and adenoidectomy Social History household members: spouse Smoking Status: Never smoker alcohol intake: never substance use type: does not use ROS ROS ED ROS Narrative Past medical history: Reviewed Medications: Reviewed Social history: Noncontributory Review of systems: General: No fever Eyes: No visual changes ENT: No upper airway congestion, normal voice Neck: No neck pain Cardiovascular: No chest pain Respiratory: No shortness of breath or cough Gastrointestinal: Abdominal pain as in HPI Genitourinary: No dysuria Musculoskeletal: Denies myalgias no difficulty with ambulation Skin: No rash Neurological: No memory loss, confusion or any focal weakness EXAM Physical Exam Narrative Exam Narrative: Physical exam General: Well nourished, Well developed, No Acute Distress Head: Normocephalic, Atraumatic Eyes: Conjunctiva not pale ENT: Moist mucous membranes Neck: Supple, Nontender, No lymphadenopathy Cardiovascular: Regular rate, Regular rhythm Respiratory: No distress, CTA bilaterally Abdomen: Soft, there is epigastric tenderness without any guarding or rebound. No right upper quadrant pain. Negative Sunshine's. No lower abdominal pain or pain at McBurney's. Back: Nontender, Normal Inspection. Negative for: CVA tenderness Extremities: Nontender, No edema Skin: Normal color, No rash Neurological: Alert, Normal Strength, Normal Sensation Const Vital Signs: 06/04/23 16:05 06/04/23 18:35 Temperature 97.4 F L Temperature Source Temporal Pulse Rate 83 78 Respiratory Rate 16 18 Blood Pressure 150/87 H 140/86 H Blood Pressure Mean 108 104 Pulse Ox 93 96 Oxygen Delivery Method Room Air Room Air MDM MDM MDM Narrative Medical decision making narrative: Patient has abdominal pain which is epigastric I thought about gastritis, pancreatitis, I also thought about colitis. She has had prior surgeries without about bowel obstruction. She is found to have mesenteric adenitis, I went back to talk to her apparently she has had flulike symptoms over the past month which may be the cause of her mesenteric adenitis. I will treat her symptomatically otherwise I believe she can be safely discharged she has a GI physician and she can follow-up with him. At this time she does not meet admission criteria and her pain is controlled. I reevaluated her and she improved. Lab Data Labs: Laboratory Results - last 24 hr 06/04/23 16:35 WBC 4.3 L RBC 4.29 Hgb 12.5 Hct 37.6 MCV 87.6 MCH 29.1 MCHC 33.2 RDW Std Deviation 39.1 RDW Coeff of Stella 12.1 Plt Count 246 MPV 8.8 Immature Gran % (Auto) 0.000 Neut % (Auto) 33.6 L Lymph % (Auto) 52.0 H [place] % (Auto) 8.5 Eos % (Auto) 5.4 H Baso % (Auto) 0.5 Absolute Neuts (auto) 1.4 L Absolute Lymphs (auto) 2.21 Nucleated RBC % 0 Sodium 138 Potassium 4.0 Chloride 105 Carbon Dioxide 29.0 Anion Gap 4 L BUN 15 Creatinine 0.87 Estim Creat Clear Calc 62.57 Est GFR (MDRD) Af Amer 88 Est GFR (MDRD) Non-Af 73 BUN/Creatinine Ratio 17.3 Glucose 129 H Calcium 8.6 Total Bilirubin 0.40 AST 15 ALT 21 Alkaline Phosphatase 77 Total Protein 7.1 Albumin 3.2 Globulin 3.9 Albumin/Globulin Ratio 0.8 L Lipase 26 Radiography Diagnostic Testing: Clinical Impression(s) from Imaging Studies Abdomen/Pelvis CT 06/04/23 16:19 IMPRESSION: (NOT LISTED IN ORDER OF SIGNIFICANCE) Constipation. Multiple scattered mesenteric, cecal, periappendiceal, and periaortic lymph nodes. This can suggest mesenteric adenitis. Other findings as above. Electronically Signed: Noé Lund MD at 17:05 EDT , Discharge Plan Triage Chief Complaint: Abd Pain ED Provider: Shamir Sepulveda Dx/Rx/DC Orders Clinical Impression: Mesenteric adenitis, Abdominal pain Instructions: ED Adenitis, Mesenteric Prescriptions: New ondansetron 4 mg tablet,disintegrating 8 mg PO Q8H PRN PRN (Reason: Nausea) Qty: 20 0RF hydrocodone-acetaminophen 5-325 mg tablet 1 tab PO Q4H PRN PRN (Reason: Pain) 3 Days Qty: 10 0RF No Action atorvastatin 20 mg tablet 20 mg PO DAILY Qty: 90 3RF lansoprazole 30 mg capsule,delayed release(DR/EC) 30 mg PO DAILY Qty: 60 3RF desog-e.estradiol/e.estradiol 1 EACH tablet 2 mg PO DAILY Patient Comments: hormones bupropion HCl 100 mg tablet 100 mg PO DAILY Patient Comments: mood quetiapine 25 MG tablet 50 mg PO QHS trazodone 50 MG tablet 50 mg PO QHS lamotrigine [Lamictal] 200 mg tablet 200 mg PO QHS Patient Comments: take 1 tablet by mouth once daily divalproex [Depakote ER] 500 mg tablet extended release 24 hr 500 mg PO QHS Patient Comments: take 1 tablet by mouth once daily desvenlafaxine succinate [Pristiq] 25 mg tablet extended release 24 hr 50 mg PO DAILY Patient Comments: take 1 tablet by mouth once daily aspirin [Adult Aspirin Regimen] 81 mg tablet,delayed release (DR/EC) 81 mg PO DAILY Qty: 30 1RF ondansetron 4 mg tablet,disintegrating 4 mg PO Q8H PRN (Reason: nausea and vomiting) Qty: 20 0RF docusate sodium [Colace] 100 mg capsule 100 mg PO PRN PRN (Reason: Constipation) metoclopramide HCl [Reglan] 5 mg tablet 5 mg PO Q8H PRN PRN (Reason: nausea and vomiting) 7 Days Qty: 20 0RF dicyclomine 10 mg capsule 10 mg PO BID PRN (Reason: abdominal pain) Qty: 60 3RF lactulose 10 gram/15 mL (15 mL) solution 10 g PO DAILY Qty: 750 3RF Primary Care Provider: Sumanth Krause Referrals: Sumanth Krause MD [Primary Care Provider] - 3-5 Days Disposition Disposition: Home, Self Care
[2023-06-04] MEDS: Ondansetron 4 MG/2 ML Vial IV (16:35)
[2023-06-04] MEDS: Famotidine 200 MG/20 ML MDV 20 MG in 0.9% Normal Saline (Pres. free 8 ML 300 MG IV (16:36)
[2023-06-04 16:48] LABS: Absolute Lymphocyte Count 2.21 X10^3/uL (0.83-4.51); Absolute Neutrophil Count 1.4 X10^3/uL (2.0-7.7); Basophil# 0.02 X10^3/uL; Basophil% 0.5 % (0-1); Eosinophil# 0.23 X10^3/uL; Eosinophils% 5.4 % (0-5); Hematocrit 37.6 % (37-47); Hemoglobin 12.5 g/dL (12.0-15.0); Lymphocyte # 2.21 X10^3/ul (0.83-4.51); Mean Corp Hgb Conc 33.2 g/dL (32-36); Mean Corpuscular Hgb 29.1 pg (27.0-32.0); Mean Corpuscular Volume 87.6 fL (81-99); Mean Platelet Vol. 8.8 fl (6.2-12.0); Monocyte# 0.36 X10^3/uL; Monocyte% 8.5 % (0-10); NRBC Flagged by Analyzer 0 % (0-5); Neutrophil # 1.43 X10^3/uL (2.7-7.7); Neutrophil % 33.6 % (47-70); Platelet Count 246 K/mm3 (150-450); RBC Distribution Width CV 12.1 % (11.6-14.6); RBC Distribution Width SD 39.1 fl (35.1-43.9); Red Blood Count 4.29 M/mm3 (4.2-5.4); White Blood Count 4.3 K/mm3 (4.4-11.0)
[2023-06-04] MEDS: Mag Hydrox/Al Hydrox/Simeth 30 ML UDC PO (16:54)
[2023-06-04 17:07] LABS: ALB/GLOB Ratio 0.8 RATIO (0.9-2.4); AST(SGOT) 15 U/L (15-37); Alanine Aminotransfer ALT/SGPT 21 U/L (13-56); Albumin, Serum 3.2 g/dL (3.2-5.0); Alkaline Phosphatase 77 U/L (45-117); Anion Gap 4 (5-15); BUN 15 mg/dL (7-18); BUN/Creat Ratio 17.3 RATIO (10-20); Calcium,Total 8.6 mg/dL (8.5-10.1); Chloride 105 mmol/L (98-107); Creatinine, Serum 0.87 mg/dL (0.55-1.02); EST Glomerular Filtration Rate 73 mL/min (>60); Est Glom Filt Rate - Afr Amer 88 mL/min (>60); Estimated Creatinine Clearance 62.57 ml/min; Globulin 3.9 g/dL (2.2-4.2); Glucose 129 mg/dL (74-106); Lipase 26 U/L (13-75); Protein, Total 7.1 g/dL (6.4-8.2); Sodium Level 138 mmol/L (136-145)
[2023-06-04 18:35] VITALS: BP 140/86; PULSE 78; RESP 18; O2SAT 96
[2023-06-04] MEDS: Ondansetron ODT 4 MG Tablet PO (19:07)
== END 2023-06-04 19:16 | disposition home or self-care (01) ==
PROVIDERS: Emergency Provider Emergency Medicine; PCP Family Medicine; Visit Provider Emergency Medicine
DX: R10.9 Unspecified abdominal pain (principal); F31.9 Bipolar disorder, unspecified; I88.0 Nonspecific mesenteric lymphadenitis; I25.10 Atherosclerotic heart disease of native coronary artery without angina pectoris; Z79.3 Long term (current) use of hormonal contraceptives; Z79.899 Other long term (current) drug therapy; Z79.82 Long term (current) use of aspirin; K21.9 Gastro-esophageal reflux disease without esophagitis; Z90.49 Acquired absence of other specified parts of digestive tract; Z90.710 Acquired absence of both cervix and uterus
CPT/HCPCS: 74176; 80053; 83690; 85025; 96374; 96375; 99283; A4216; J2405; J3490

== ENCOUNTER → 2023-06-10 | Outpatient (CLI) | payer BC, SELFPAY ==
--- NOTE | 2023-06-10 12:45 | RAD_ITS ---
STUDY: X-RAY - ACUTE ABDOMINAL SERIES REASON FOR EXAM: Female, 52 years old. PAIN TECHNIQUE: Single view of the chest. Supine, and erect view(s) of the abdomen were obtained on 4 images. COMPARISON: None. FINDINGS: The lungs are clear and expanded. Stable scattered healed parenchymal granulomatous calcifications. Normal size heart. Normal mediastinum and isela. Prominent central pulmonary arteries. Normal visualized aortic arch and descending thoracic aorta. Normal bowel gas pattern with air seen to the rectosigmoid. No disproportionate dilatation or free intra-abdominal air. Normal soft tissue structures of the abdomen and pelvis. Normal visualized osseous structures. RAD/Acute Abdomen Inc Chest IMPRESSION: No acute abnormality of the chest, abdomen or pelvis. Electronically Signed: Cristobal Ryan MD at 16:02 EDT ,
== END | disposition home or self-care (01) ==
LOC: MTRAD 12:38
PROVIDERS: PCP Family Medicine; Referring Provider Family Medicine; Visit Provider Family Medicine
DX: R10.9 Unspecified abdominal pain (principal)
CPT/HCPCS: 74022

== ENCOUNTER → 2023-07-31 | Outpatient (CLI) | payer BC, SELFPAY ==
[2023-07-31 15:56] LABS: ALB/GLOB Ratio 0.9 RATIO (0.9-2.4); AST(SGOT) 15 U/L (15-37); Alanine Aminotransfer ALT/SGPT 24 U/L (13-56); Albumin, Serum 3.6 g/dL (3.2-5.0); Alkaline Phosphatase 94 U/L (45-117); Anion Gap 8 (5-15); BUN 20 mg/dL (7-18); BUN/Creat Ratio 18.9 RATIO (10-20); CPK Total, Creatine Kinase 54 U/L (26-192); Calcium,Total 9.1 mg/dL (8.5-10.1); Chloride 103 mmol/L (98-107); Creatinine, Serum 1.06 mg/dL (0.55-1.02); EST Glomerular Filtration Rate 58 mL/min (>60); Est Glom Filt Rate - Afr Amer 70 mL/min (>60); Ferritin 71 ng/mL (8-252); Glucose 118 mg/dL (74-106); Magnesium 2.2 mg/dL (1.6-2.6); Potassium 3.8 mmol/L (3.5-5.1); Protein, Total 7.6 g/dL (6.4-8.2); Sodium Level 139 mmol/L (136-145); Thyroid Stim Hormone (TSH) 0.78 uIU/mL (0.358-3.74)
== END | disposition home or self-care (01) ==
LOC: MTLAB 11:15
PROVIDERS: PCP Family Medicine; Visit Provider Family Medicine
DX: M79.10 Myalgia, unspecified site (principal)
CPT/HCPCS: 36415; 80053; 82550; 82728; 83735; 84443

== ENCOUNTER → 2023-08-06 | Outpatient (CLI) | payer BC, SELFPAY ==
--- NOTE | 2023-08-06 11:00 | ART_ITS ---
Reason For Study: symptoms and signs involving circulatory systems,decreased pulses. Procedure A bilateral lower extremity continuous wave Doppler with analog waveform analysis,segmental pressures,and ankle brachial indexes without exercise. Left Segmental Pressures Left brachial= 136mmHg. Left posterior tibial artery = 156mmHg. Left dorsalis pedis artery = 159mmHg. The left posterior tibial artery waveforms are triphasic. The left dorsalis pedis waveforms are triphasic. Right Segmental Pressures Right brachial= 131mmHg. Right posterior tibial artery = 157mmHg. Right dorsalis pedis artery = 145mmHg. The right posterior tibial artery waveforms are triphasic. The right dorsalis pedis waveforms are triphasic. Indices The right resting ankle brachial index is 1.15. The right ankle brachial index by the posterior tibial artery is 1.15. The right ankle brachial index by the dorsalis pedis is 1.07. The left resting ankle brachial index is 1.17. The left ankle brachial index by the posterior tibial artery is 1.15. The left ankle brachial index by the dorsalis pedis is 1.17. VL/Lower Ext Art Exam w/o Exercis Interpretation Summary Right CAMMIE 1.15, normal. Doppler/PVR waveforms of the right leg normal at rest. Left CAMMIE 1.17, normal. Doppler/PVR waveforms of the left leg normal at rest. Ordering Physician: Sumanth Krause Referring Physician: Sumanth Krause Performed By: Iwona Smith RVT, RDCS
== END | disposition home or self-care (01) ==
LOC: CVS 11:00
PROVIDERS: PCP Family Medicine; Referring Provider Family Medicine; Visit Provider Family Medicine
DX: R09.89 Other specified symptoms and signs involving the circulatory and respiratory systems (principal); R35.0 Frequency of micturition
CPT/HCPCS: 87086; 93923

== ENCOUNTER → 2023-08-15 | Outpatient (CLI) | payer BC, SELFPAY | END | disposition home or self-care (01) | PROVIDERS: PCP Family Medicine; Visit Provider Family Medicine | DX: R35.0 Frequency of micturition (principal) | CPT/HCPCS: 87086; 87088 ==

== ENCOUNTER → 2023-10-28 | Outpatient (CLI) | payer BC, SELFPAY ==
[2023-10-28 18:15] LABS: Hemoglobin A1c 5.1 % (3.8-5.6)
[2023-10-28 18:38] LABS: AST(SGOT) 24 U/L (15-37); Alanine Aminotransfer ALT/SGPT 34 U/L (13-56); Albumin, Serum 3.8 g/dL (3.2-5.0); Alkaline Phosphatase 113 U/L (45-117); Anion Gap 6 (5-15); BUN 13 mg/dL (7-18); BUN/Creat Ratio 16.3 RATIO (10-20); Calcium,Total 8.8 mg/dL (8.5-10.1); Chloride 103 mmol/L (98-107); EST Glomerular Filtration Rate 80 mL/min (>60); Est Glom Filt Rate - Afr Amer 97 mL/min (>60); Globulin 3.7 g/dL (2.2-4.2); Glucose 119 mg/dL (74-106); Potassium 4.2 mmol/L (3.5-5.1); Protein, Total 7.5 g/dL (6.4-8.2); Sodium Level 139 mmol/L (136-145)
== END | disposition home or self-care (01) ==
LOC: MFPLAB 15:58
PROVIDERS: PCP Family Medicine; Visit Provider Family Medicine
DX: R73.09 Other abnormal glucose (principal)
CPT/HCPCS: 36415; 80053; 83036

== ENCOUNTER → 2023-10-29 | Outpatient (CLI) | payer BC, SELFPAY ==
[2023-10-29 15:38] LABS: Hematocrit 39.9 % (37-47); Mean Corp Hgb Conc 32.6 g/dL (32-36); Mean Corpuscular Hgb 28.5 pg (27.0-32.0); Mean Corpuscular Volume 87.5 fL (81-99); Mean Platelet Vol. 8.8 fl (6.2-12.0); Platelet Count 272 K/mm3 (150-450); RBC Distribution Width CV 11.8 % (11.6-14.6); RBC Distribution Width SD 37.9 fl (35.1-43.9); Red Blood Count 4.56 M/mm3 (4.2-5.4); White Blood Count 4.7 K/mm3 (4.4-11.0)
[2023-10-29 16:14] LABS: Anion Gap 6 (5-15); BUN 12 mg/dL (7-18); BUN/Creat Ratio 14.5 RATIO (10-20); Calcium,Total 8.7 mg/dL (8.5-10.1); Chloride 106 mmol/L (98-107); Creatinine, Serum 0.82 mg/dL (0.55-1.02); EST Glomerular Filtration Rate 77 mL/min (>60); Est Glom Filt Rate - Afr Amer 93 mL/min (>60); Glucose 110 mg/dL (74-106); Potassium 3.9 mmol/L (3.5-5.1); Sodium Level 141 mmol/L (136-145)
== END | disposition home or self-care (01) ==
PROVIDERS: PCP Family Medicine; Referring Provider Urology; Visit Provider Urology
DX: R10.9 Unspecified abdominal pain (principal)
CPT/HCPCS: 36415; 80048; 85027

== ENCOUNTER 2023-10-30 16:37 | Emergency (ER) | payer BC, SELFPAY ==
[2023-10-30 16:38] VITALS: BP 168/101; PULSE 94; RESP 14; TEMP 36.8; O2SAT 100; BMI 23.8
[2023-10-30 16:52] VITALS: BP 159/84; PULSE 94; O2SAT 99
--- NOTE | 2023-10-30 16:52 | CT_ITS ---
STUDY: CT ABDOMEN AND PELVIS WITH CONTRAST REASON FOR EXAM: Female, 53 years old. pain, distention RADIATION DOSAGE (If Supplied By Facility): CTDIvol = ( 10.08 ) mGy, DLP = ( 324.85 ) mGycm TECHNIQUE: Transaxial images were obtained from the dome of the diaphragm to the symphysis pubis without oral contrast. IV 100mL Isovue-300 was administered. Sagittal and coronal images were reconstructed. Individualized dose optimization techniques were used for this CT. COMPARISON: 06/04/2023 FINDINGS: The visualized lung bases are unremarkable. The visualized portions of the heart are within normal limits. Normal liver. There is non-visualization of the gallbladder, which may be secondary to either contraction or a prior cholecystectomy. Normal spleen. Normal pancreas. Normal bilateral adrenal glands. Normal right kidney. Normal left kidney. Normal visualized stomach. Small lymph nodes and edema within the small bowel mesentery suggestive of gastroenteritis or mesenteric adenitis. Normal colon. The appendix is visualized and appears normal. Normal abdominal aorta. Normal inferior vena cava. Normal retroperitoneum. Normal urinary bladder. Normal abdominal wall. Normal osseous structures. CT/Abdomen/Pelvis W IV Cont ONLY IMPRESSION: Suspect recurrent gastroenteritis or mesenteric adenitis. Electronically Signed: Shankar Marshall MD at 18:50 EST ,
--- NOTE | 2023-10-30 16:53 | EDS_ITS ---
HPI HPI - GI History of Present Illness Chief Complaint: Abd Pain Informant: patient Narrative Narrative: Patient presents with abdominal distention and some discomfort. Patient has been having problems with very frequent urination for several months. She has been seeing urology for this. No indication of UTIs. They have been trying different medications for this. She stated that about a month to month and a half ago she was at a constitution party. She ended up vomiting. She states ever since then she feels as though her stomach is been somewhat bloated. She has not been vomiting though. She has been eating and drinking. She has const ipation but that is a chronic longstanding issue but it does seem like its gotten worse in the last month. She saw her urologist again and they felt that some of her urinary issues may be from bladder compression from another source. They were trying to get a CAT scan as an outpatient. Patient states in the last 24 hours her abdomen is really gotten notably distended. She states she had some mild distention before but now it feels markedly distended. She states it feels like she is about 4 months . She has had hysterectomy and cholecystectomy before. Last moved her bowels about 2 or 3 days ago. No blood. She states when she eats it feels like she gets more distended but she is not getting nausea or vomiting. No fevers at any time. No weight loss. No history of alcohol use. No history of obstructions. She was once told she has a fatty liver but no specific treatment was initiated. [facility] Medical History Anorexia Anxiety Bipolar disease, chronic Cardiology follow-up encounter Cervical radiculopathy COVID-19 virus detected (08/29/20) Degenerative disc disease, cervical Depression Elevated troponin level Epigastric abdominal pain Fatty liver Frequent headaches GERD (gastroesophageal reflux disease) History of diverticulitis History of echocardiogram History of edema Non-smoker Nonobstructive atherosclerosis of coronary artery NSTEMI, initial episode of care (10/07/21) Shortness of breath on exertion Vertigo Home Medications desogestrel-e.estradiol 0.15 mg-0.02 mg(21)/e.estrad 0.01 mg(5) tablet 2 mg PO DAILY 08/25/13 [History Last Taken 10/29/21] quetiapine 25 mg tablet 50 mg PO QHS 10/07/18 [History Last Taken 10/29/21] bupropion HCl 100 mg tablet 100 mg PO DAILY 08/09/19 [History Last Taken 10/29/21] trazodone 50 mg tablet 50 mg PO QHS 01/03/20 [History Last Taken 10/29/21] desvenlafaxine succinate 25 mg tablet,extended release 24 hr (Pristiq) 50 mg PO DAILY 04/14/21 [History Last Taken 10/29/21] lamotrigine 200 mg tablet (Lamictal) 200 mg PO QHS 04/14/21 [History Last Taken 10/29/21] aspirin 81 mg tablet,delayed release (Adult Aspirin Regimen) 81 mg PO DAILY #30 tabs 10/08/21 [Rx Last Taken 10/29/21] atorvastatin 20 mg tablet 20 mg PO DAILY #90 tabs 01/16/23 [Rx Last Taken Unknown] lansoprazole 30 mg capsule,delayed release 30 mg PO DAILY #60 caps 09/11/23 [Rx Last Taken Unknown] ondansetron 4 mg disintegrating tablet 4 mg PO Q8H PRN PRN Nausea #10 tabs 10/30/23 [Rx Last Taken Unknown] Allergy/AdvReac Type Severity Reaction Status Date / Time verapamil Allergy Mild Rash Verified 07/17/23 14:08 amoxicillin [Amoxicillin] Allergy Hives Verified 07/17/23 14:08 sulfamethoxazole Allergy Rash Verified 07/17/23 14:08 [From Septra] trimethoprim [From Septra] Allergy Rash Verified 07/17/23 14:08 diphenhydramine AdvReac Other Verified 07/17/23 14:08 [From Benadryl] moxifloxacin [From Avelox] AdvReac NEEDS Verified 07/17/23 14:08 FOLLOW-UP olanzapine [From Zyprexa] AdvReac Unknown Verified 07/17/23 14:08 oxcarbazepine AdvReac Unknown Verified 07/17/23 14:08 [From Trileptal] sumatriptan [From Imitrex] AdvReac Other Verified 07/17/23 14:08 zolmitriptan [From Zomig] AdvReac Unknown Verified 07/17/23 14:08 Family History Mother CVA (cerebral vascular accident) Surgical History History of carpal tunnel release History of cholecystectomy History of hysterectomy History of left heart catheterization (10/08/21) History of nasal septoplasty History of tonsillectomy and adenoidectomy Social History household members: spouse Smoking Status: Never smoker alcohol intake: never substance use type: does not use ROS ROS ED ROS Narrative A complete review of systems was performed and is negative except as documented in the history of present illness. Some specific details below. Constitutional: No recent fevers or chills. EYE: No visual complaints or pain. No cough or change. ENT: No difficulty swallowing. No swelling. No pain. No GERD symptoms. CV: No chest pain or palpitations. Respiratory: No dyspnea. No hemoptysis. No difficulty taking breaths. GI: Please see history of present illness. : No frequency dysuria or hematuria. Musculoskeletal: No recent trauma. No pains. Skin: No rash. Nondiaphoretic. Neuro: No weakness or numbness. Endocrine: No polyuria or polydipsia. EXAM Physical Exam Narrative Exam Narrative: CONSTITUTIONAL: Patient is nontoxic in appearance. The patient looks comfortable. HEENT: No notable trauma. Mucous membranes minimally dry.. No sinus tenderness. No indication of pain with swallowing. EYES: No conjunctival injection. No icterus. CARDIOVASCULAR: Regular rate. Regular rhythm. No notable murmur. No JVD. RESPIRATORY: No respiratory distress. Breathing is unlabored. No wheezes. No rhonchi. No rales. No pain with a deep breath. GASTROINTESTINAL: Patient's abdomen does look genuinely distended especially compared to her overall body habitus. But I do not feel a fluid wave. Her bowel sounds are normal to slightly increased. She has mild nonfocal tenderness but no rebound or guarding. GENITOURINARY: No tenderness over the bladder. No CVA tenderness. MUSCULOSKELETAL: Atraumatic. No peripheral edema. No cord. No tenderness along the deep venous system. No asymmetry. NEUROLOGICAL: Patient is alert and appropriate. No focal deficit noted. SKIN: No noted rashes. No diaphoresis. PSYCHIATRIC: Patient is calm. Mood is appropriate. Const Vital Signs: 10/30/23 16:38 10/30/23 16:52 Temperature 98.3 F Temperature Source Temporal Pulse Rate 94 94 Respiratory Rate 14 Blood Pressure 168/101 H 159/84 H Blood Pressure Mean 123 109 Pulse Ox 100 99 Oxygen Delivery Method Room Air Room Air MDM MDM MDM Narrative Medical decision making narrative: My independent interpretation of the patient's CT of the abdomen shows some stool throughout the colon but no obvious distention. No obstruction. I do not see any masses. Final reading is suspicious for gastroenteritis versus mesenteric adenitis. CBC is normal. Patient's electrolytes are normal. Patient's glucose was mildly elevated 135. Patient's liver function test were normal other than alkaline phosphatase at 119 which is a minimal elevation. Patient's lipase is normal at 27. Patient's lactic acid is normal at 5 5. Patient is urine that shows no sign of acute infection. Patient is still eating and drinking. I do not think she needs to be admitted. We did discuss that if this is mesenteric adenitis this will usually last about a week. But she does also have a history of chronic constipation, has not moved her bowels in 3 or 4 days and I think there is a component of this causing the distention. We will get her Dulcolax. She just started MiraLAX yesterday and I told her she should stay on this. If she develops fever, further distention, pain, recurrent vomiting or other issues she should return. I will write from his [place] as a as needed basis in case she develops some nausea Lab Data Attestation: I reviewed the patient's lab results. Labs: Laboratory Results - last 24 hr 10/30/23 10/30/23 16:55 17:00 WBC 4.6 RBC 4.60 Hgb 13.0 Hct 39.4 MCV 85.7 MCH 28.3 MCHC 33.0 RDW Std Deviation 36.3 RDW Coeff of Stella 11.8 Plt Count 260 MPV 8.6 Immature Gran % (Auto) 0.200 Neut % (Auto) 31.9 L Lymph % (Auto) 55.1 H [place] % (Auto) 8.7 Eos % (Auto) 2.8 Baso % (Auto) 1.3 H Absolute Neuts (auto) 1.5 L Absolute Lymphs (auto) 2.53 Nucleated RBC % 0 Sodium 138 Potassium 3.8 Chloride 102 Carbon Dioxide 31.0 Anion Gap 5 BUN 11 Creatinine 0.79 Estim Creat Clear Calc 68.13 Est GFR (MDRD) Af Amer 98 Est GFR (MDRD) Non-Af 81 BUN/Creatinine Ratio 14.0 Glucose 135 H Lactic Acid 1.5 Calcium 8.6 Total Bilirubin 0.40 AST 25 ALT 35 Alkaline Phosphatase 119 H Total Protein 7.8 Albumin 3.7 Globulin 4.1 Albumin/Globulin Ratio 0.9 Lipase 27 Urine Color Yellow Urine Clarity Clear Urine pH 6.0 Ur Specific [place] 1.015 Urine Protein Negative Urine Glucose (UA) Normal Urine Ketones Negative Urine Occult Blood Negative Urine Nitrite Negative Urine Bilirubin Negative Urine Urobilinogen Normal Ur Leukocyte Esterase Negative Urine RBC 0-5 SEEN Urine WBC 0-5 SEEN Ur Squamous Epith Cells 5-10 SEEN Urine Bacteria 0 SEEN Urine Mucus 0 SEEN Radiography Diagnostic Testing: Clinical Impression(s) from Imaging Studies Abdomen/Pelvis CT 10/30/23 16:52 IMPRESSION: Suspect recurrent gastroenteritis or mesenteric adenitis. Electronically Signed: Shankar Marshall MD at 18:50 EST , Discharge Plan Triage Chief Complaint: Abd Pain ED Provider: Harpal Pollack Dx/Rx/DC Orders Clinical Impression: Abdominal distension, Mesenteric adenitis, Constipation Instructions: ED Abdominal Pain Unkn Cause Fem, ED Constipation (Adult) Prescriptions: New ondansetron [ondansetron] 4 mg tablet,disintegrating 4 mg PO Q8H PRN PRN (Reason: Nausea) Qty: 10 0RF No Action atorvastatin 20 mg tablet 20 mg PO DAILY Qty: 90 3RF desog-e.estradiol/e.estradiol 1 EACH tablet 2 mg PO DAILY Patient Comments: hormones bupropion HCl 100 mg tablet 100 mg PO DAILY Patient Comments: mood quetiapine 25 MG tablet 50 mg PO QHS trazodone 50 MG tablet 50 mg PO QHS lamotrigine [Lamictal] 200 mg tablet 200 mg PO QHS Patient Comments: take 1 tablet by mouth once daily desvenlafaxine succinate [Pristiq] 25 mg tablet extended release 24 hr 50 mg PO DAILY Patient Comments: take 1 tablet by mouth once daily aspirin [Adult Aspirin Regimen] 81 mg tablet,delayed release (DR/EC) 81 mg PO DAILY Qty: 30 1RF lansoprazole 30 mg capsule,delayed release(DR/EC) 30 mg PO DAILY Qty: 60 1RF Primary Care Provider: Sumanth Krause Referrals: Sumanth Krause MD [Primary Care Provider] - 3-5 Days Disposition Disposition: Home, Self Care
[2023-10-30 17:03] LABS: Bacteria 0 SEEN /hpf (None Seen); Mucous, Urine 0 SEEN /hpf (<or=2+)
[2023-10-30 17:04] LABS: Glucose, Dipstick Normal (Normal); Ketone-Dipstick Negative (Negative); Leukocyte Esterase-Dipstick Negative /ul (Negative); Nitrite-Dipstick Negative (Negative); Occult Blood-Urine Negative /ul (Negative); Protein-Dipstick Negative (Negative); Specific Gravity, Urine 1.015 (1.002-1.030); Urine Bilirubin Dipstick Negative (Negative); Urine Urobilinogen Normal (Normal)
[2023-10-30 17:07] LABS: Color, Urine Yellow (Yellow); Urine Clarity Clear (Clear)
[2023-10-30 17:10] LABS: Red Blood Cells-Urine 0-5 SEEN /hpf (0-5); Squamous Epithelial Cells - UA 5-10 SEEN /hpf (5-10); White Blood Cells 0-5 SEEN /hpf (0-5)
[2023-10-30 17:17] LABS: Absolute Lymphocyte Count 2.53 X10^3/uL (0.83-4.51); Absolute Neutrophil Count 1.5 X10^3/uL (2.0-7.7); Basophil# 0.06 X10^3/uL; Basophil% 1.3 % (0-1); Eosinophil# 0.13 X10^3/uL; Eosinophils% 2.8 % (0-5); Hematocrit 39.4 % (37-47); Lymphocyte # 2.53 X10^3/ul (0.83-4.51); Lymphocyte % 55.1 % (19-41); Mean Corpuscular Hgb 28.3 pg (27.0-32.0); Mean Corpuscular Volume 85.7 fL (81-99); Mean Platelet Vol. 8.6 fl (6.2-12.0); Monocyte% 8.7 % (0-10); NRBC Flagged by Analyzer 0 % (0-5); Neutrophil # 1.46 X10^3/uL (2.7-7.7); Neutrophil % 31.9 % (47-70); Platelet Count 260 K/mm3 (150-450); RBC Distribution Width CV 11.8 % (11.6-14.6); RBC Distribution Width SD 36.3 fl (35.1-43.9); White Blood Count 4.6 K/mm3 (4.4-11.0)
[2023-10-30] MEDS: 0.9% Normal Saline (1000mL) 500 ML 1000 ML IV (17:23)
[2023-10-30 17:25] LABS: ALB/GLOB Ratio 0.9 RATIO (0.9-2.4); AST(SGOT) 25 U/L (15-37); Alanine Aminotransfer ALT/SGPT 35 U/L (13-56); Albumin, Serum 3.7 g/dL (3.2-5.0); Alkaline Phosphatase 119 U/L (45-117); Anion Gap 5 (5-15); BUN 11 mg/dL (7-18); Calcium,Total 8.6 mg/dL (8.5-10.1); Chloride 102 mmol/L (98-107); Creatinine, Serum 0.79 mg/dL (0.55-1.02); EST Glomerular Filtration Rate 81 mL/min (>60); Est Glom Filt Rate - Afr Amer 98 mL/min (>60); Estimated Creatinine Clearance 68.13 ml/min; Globulin 4.1 g/dL (2.2-4.2); Glucose 135 mg/dL (74-106); Lipase 27 U/L (13-75); Potassium 3.8 mmol/L (3.5-5.1); Protein, Total 7.8 g/dL (6.4-8.2); Sodium Level 138 mmol/L (136-145)
[2023-10-30 17:31] LABS: Lactic Acid 1.5 mmol/L (0.4-1.9)
[2023-10-30] MEDS: Bisacodyl 5 MG Tablet 10 MG PO (19:48)
[2023-10-30 19:51] VITALS: BP 142/65; PULSE 87; RESP 18; O2SAT 98
== END 2023-10-30 19:53 | disposition home or self-care (01) ==
PROVIDERS: Emergency Provider Emergency Medicine; PCP Family Medicine; Visit Provider Emergency Medicine
DX: I88.0 Nonspecific mesenteric lymphadenitis (principal); F31.9 Bipolar disorder, unspecified; K59.00 Constipation, unspecified; R14.0 Abdominal distension (gaseous); I25.10 Atherosclerotic heart disease of native coronary artery without angina pectoris; Z90.710 Acquired absence of both cervix and uterus; Z90.49 Acquired absence of other specified parts of digestive tract; Z79.3 Long term (current) use of hormonal contraceptives; K21.9 Gastro-esophageal reflux disease without esophagitis
CPT/HCPCS: 74177; 80053; 81001; 83605; 83690; 85025; 96360; 96361; 99283; J7040; Q9967; A4216

== ENCOUNTER → 2023-12-12 | Outpatient (CLI) | payer BC, SELFPAY ==
[2023-12-12 13:37] LABS: Absolute Lymphocyte Count 2.48 X10^3/uL (0.83-4.51); Absolute Neutrophil Count 1.7 X10^3/uL (2.0-7.7); Basophil# 0.06 X10^3/uL; Basophil% 1.3 % (0-1); Eosinophil# 0.12 X10^3/uL; Eosinophils% 2.6 % (0-5); Hemoglobin 13.2 g/dL (12.0-15.0); Lymphocyte # 2.48 X10^3/ul (0.83-4.51); Lymphocyte % 52.9 % (19-41); Mean Corpuscular Volume 84.9 fL (81-99); Mean Platelet Vol. 8.5 fl (6.2-12.0); Monocyte# 0.37 X10^3/uL; Monocyte% 7.9 % (0-10); NRBC Flagged by Analyzer 0 % (0-5); Neutrophil # 1.66 X10^3/uL (2.7-7.7); Neutrophil % 35.3 % (47-70); Platelet Count 294 K/mm3 (150-450); RBC Distribution Width CV 11.8 % (11.6-14.6); RBC Distribution Width SD 35.7 fl (35.1-43.9); Red Blood Count 4.71 M/mm3 (4.2-5.4); White Blood Count 4.7 K/mm3 (4.4-11.0)
[2023-12-12 13:51] LABS: Prothrombin Time (Protime)PT. 12.8 SECONDS (11.7-14.9)
[2023-12-12 13:54] LABS: Hemoglobin A1c 5.4 % (3.8-5.6)
[2023-12-12 14:01] LABS: ALB/GLOB Ratio 0.9 RATIO (0.9-2.4); AST(SGOT) 26 U/L (15-37); Alanine Aminotransfer ALT/SGPT 40 U/L (13-56); Albumin, Serum 3.6 g/dL (3.2-5.0); Alkaline Phosphatase 106 U/L (45-117); Anion Gap 0 (5-15); BUN 13 mg/dL (7-18); BUN/Creat Ratio 15.7 RATIO (10-20); Calcium,Total 9.1 mg/dL (8.5-10.1); Chloride 105 mmol/L (98-107); Creatinine, Serum 0.83 mg/dL (0.55-1.02); EST Glomerular Filtration Rate 77 mL/min (>60); Est Glom Filt Rate - Afr Amer 93 mL/min (>60); GGTP 19 U/L (5-55); Globulin 4.1 g/dL (2.2-4.2); Glucose 123 mg/dL (74-106); Potassium 4.3 mmol/L (3.5-5.1); Protein, Total 7.7 g/dL (6.4-8.2); Sodium Level 136 mmol/L (136-145)
[2023-12-12 14:01] LABS: Cholesterol 177 mg/dL (200); High Density Lipoprotein 82 mg/dL; Triglycerides 94 mg/dL; Very Low Density Lipoprotein 19 mg/dL (5-40)
--- OUTSIDE RECORDS SUMMARY | 2023-12-12 14:01 | XMS RPT_ITS | CCD ---
Author Name Unknown Address [address] [place] [address] Organization [facility] Care Team Providers Care Senior Sales Engineer Name Role Phone ENRIQUE VARELA Unavailable Unavailable SERRI, GENEISO Unavailable Unavailable ENRIQUE VARELA K Unavailable Unavailable ANNA, ABAS M Unavailable Unavailable MANSOUR, BUSBY MONIR Unavailable Unavailable SABRASEJALUART Unavailable Unavailab le MANSOUR, BUSBY MONIR Unavailable Unavailable MANSOUR, BUSBY MONIR Unavailable Unavailable MANSOUR, BUSBY MONIR Unavailable Unavailable MANSOUR, BUSBY MONIR Unavailable Unavailable MANSOUR, BUSBY MONIR Unavailable Unavailable MANSOUR, BUSBY MONIR Unavailable Unavailable MANSOUR, BUSBY MONIR Unavailable Unavailable MANSOUR, BUSBY MONIR Unavailable Unavailable MANSOUR, BUSBY MONIR Unavailable Unavailable Varela, Enrique H Primary Care Unavailable IMCA Admitting Unavailable SABRA, SEJAL Consulting Unavailable MANSOUR, BUSBY M Attending Unavailable MANSOUR, BUSBY M Referring Unavailable Varela, Enrique H Primary Care Unavailable MANSOUR, BUSBY M Referring Unavailable Varela, Enrique H Primary Care Unavailable MANSOUR, BUSBY M Referring Unavailable Varela, Enrique H Primary Care Unavailable MANSOUR, BUSBY M Referring Unavailable Varela, Enrique H Primary Care Unavailable MANSOUR, BUSBY M Referring Unavailable Varela, Enrique H Primary Care Unavailable MANSOUR, BUSBY M Referring Unavailable Varela, Enrique H Primary Care Unavailable MANSOUR, BUSBY M Referring Unavailable Varela, Enrique H Primary Care Unavailable MANSOUR, BUSBY M Referring Unavailable Varela, Enrique H Primary Care Unavailable MANSOUR, BUSBY M Referring Unavailable Varela, Enrique H Primary Care Unavailable MANSOUR, BUSBY M Referring Unavailable Varela, Enrique H Primary Care Unavailable Enrique Varela MD Primary Care Provider [phone] Enrique Varela MD Primary Care Provider Enrique Varela MD Primary Care Provider Enrique Varela MD Primary Care Provider ENRIQUE VARELA Primary Care Unavailable HBUPINDER FERREIRA Attending Unavailable ENRIQUE VARELA Primary Care Unavailable BHUPINDER FERREIRA Referring Unavailable Allergies Allergy Classification Reported Allergen(s) Allergy Type Date of Onset Reaction(s) Facility (12 sources) Amoxicillin; Translations: [AMOXICILLIN] Drug Allergy 11-25-19 Hives [facility] Repository (12 sources) OLANZapine; Translations: [OLANZAPINE] Drug Allergy 12-16-19 [facility] Repository (12 sources) OXcarbazepine; Translations: [OXCARBAZEPINE] Drug Allergy 12-16-19 [facility] Repository (12 sources) Sulfamethoxazole; Translations: [SULFAMETHOXAZOLE] Drug Allergy 11-13-20 [facility] Repository (12 sources) Sulfamethoxazole / Trimethoprim; Translations: [SULFAMETHOXAZOLE-T RIMETHOPRIM] Drug Allergy 11-25-19 [facility] Repository (12 sources) ZOLMitriptan; Translations: [ZOLMITRIPTAN] Drug Allergy 12-16-19 06 [facility] Repository (3 sources) OTHER; Translations: [OTHER] Propensity to adverse reactions (disorder) 11-26-19 [facility] Repository (12 sources) GLUTEN FLOUR; Translations: [GLUTEN FLOUR] Propensity to adverse reactions to food (disorder) 10-21-20 Intolerance [facility] Repository (10 sources) diphenhydrAMINE; Translations: [DIPHENHYDRAMINE] Drug Allergy 10-07-20 Other: See Comments [facility] (9 sources) avalox [Other] Propensity to adverse reactions 11-26-19 [facility] Work Phone: Medications Completed/Discontinued Medications Medication Drug Class(es) Dates Sig (Normalized) Sig (Original) aspirin 81 mg delayed release oral tablet (8 sources) Platelet Aggregation Inhibitor, Nonsteroidal Anti-inflammatory Drug Start: 10-08-2021 aspirin, enteric coated (ASPIRIN, ENTERIC COATED) 81 mg EC tablet Take by mouth. 0 10/08/2021 Active Problems Active Problems Problem Classification Problem Date Documented Date Episodic/Chronic Esophageal disorders (10 sources) Gastro-esophageal reflux disease without esophagitis; Translations: [Gastroesophageal reflux disease without esophagitis] Onset: 10-19-2018 10-19-2018 Chronic Esophageal disorders (2 sources) Esophageal disorders Onset: 10-17-2018 Mood disorders (20 sources) Bipolar II disorder; Translations: [Bipolar disorder, unspecified] Onset: 01-03-2012 01-03-2012 Chronic Other female genital disorders (1 source) Vaginal irritation; Translations: [Other specified noninflammatory disorders of vagina] 08-06-2023 Episodic Other injuries and conditions due to external causes (1 source) Unspecified multiple injuries, initial encounter; Translations: [Unspecified multiple injuries, initial encounter] Onset: 10-17-2018 Other screening for suspected conditions (not mental disorders or infectious disease) (3 sources) Patient encounter status; Translations: [Encounter for screening mammogram for malignant neoplasm of breast] Onset: 12-19-2022 2023 Episodic Unclassified (1 source) Unknown / UNK(Unknown) Onset: 10-28-2018 Past or Other Problems Problem Classification Problem Date Documented Da te Episodic/Chronic Lymphadenitis (9 sources) Lymphadenopathy; Translations: [Enlarged lymph nodes, unspecified] Onset: 12-20-2011 12-20-2011 Episodic Results Test Name Value Interpretation Reference Range Facil ity Vital Signs Date Time Vital Sign Value Performing Clinician Faci lity 08-06-2023 14:26-0400 Body height 160 cm Bhupinder Ferreira MD Work Phone: [facility] 08-06-2023 14:26-0400 Body weight 58.51 kg Bhupinder Ferreira MD Work Phone: [facility] 08-06-2023 14:26-0400 Diastolic blood pressure 82 mm[Hg] Bhupinder Ferreira MD Work Phone: [facility] 08-06-2023 14:26-0400 Systolic blood pressure 124 mm[Hg] Bhupinder Ferreira MD Work Phone: [facility] Encounters Encounter Date Encounter Type Care Provider Facility Start: 09-01-2023 Telephone encounter Bhupinder Ferreira MD Work Phone: OB/Gynecology Procedures Date Procedure Procedure Detail Performing Clinician Start: 12-19-2022 RENÉE SCREENING W LEANDRO Ferreira MD Work Phone: Start: 12-19-2022 Mammography Mammograph y Coordinator Start: 07-12-2021 Mammography Bhupinder rubin MD Work Phone: Start: 10-18-2018 Lipid 1996 panel - S beck or Plasma Bhupinder Ferreira MD Work Phone: Start: 07-13-2013 Colonoscopy Bhupinder rubin MD Work Phone: Plan of Treatment Date Care Activity Detail Author Start: 04-12-2030 Urine microalbumin profile DTaP,Tdap,Td Vaccine (2 - Td or Tdap) [facility] Start: 12-19-[address] [facility] Start: 10-18-2023 Lipid 1996 panel - Serum or Plasma Lipid Screening [facility] Start: 10-18-[address] SCREEN [facility] Start: 07-18-2023 Covid-19 Vaccine ( season) Covid-19 Vacc[address] () [facility] Start: 07-18-[address] [facility] Start: 07-13-[address] [facility] Start: 07-13-2023 COLORECTAL CANCER SCREENING COLORECTAL CANCER SCREENING [facility] Start: 07-18-2022 Influenza vaccination INFLUENZA (#1) [facility] Start: 07-12-[address] [facility] Start: 02-01-2022 COVID-19 VACCINE (4 - Booster for Moderna series) COVID-19 VACCINE (4 - Booster for Moderna series) [facility] Start: 02-01-2022 COVID-19 VACCINE (4 - Moderna series) COVID-19 VACCINE (4 - Moderna series) [facility] Start: 10-18-2021 DIABETES SCREEN DIABETES SCREEN [facility] Start: 10-18-2021 Diabetes Screening Diabetes Screening [facility] Start: 09-12-2021 COVID-19 VACCINE (3 - Booster for Moderna series) COVID-19 VACCINE (3 - Booster for Moderna series) [facility] Start: 2020 SHINGRIX VACCINE (1 of 2) SHINGRIX VACCINE (1 of 2) [facility] Start: 2015 COLOGUARD (FIT-DNA) COLOGUARD (FIT-DNA) [facility] Start: [address] COL[address] [facility] Start: 2015 FECAL OCCULT BLOOD FECAL OCCULT BLOOD [facility] Start: [address] [facility] Start: [address] [facility] Start: 1988 HEPATITIS C SCREENING HEPATITIS C SCREENING [facility] Start: 1988 HIV SCREENING HIV SCREENING [facility] Start: 1970 HEPATITIS B (1 of 3 - 3-dose series) HEPATITIS B (1 of 3 - 3-dose series) [facility] Start: 1970 Hepatitis B Vaccine (1 of 3 - 3-dose series) Hepatitis B Vaccine (1 of 3 - 3-dose series) [facility] BACTERIAL VAGINOSIS NAAT BACTERI AL VAGINOSIS NAAT Lab Routine Vaginal irritation 08/06/2023 3:59 PM EDT [facility] Work Phone: MARIO/TRICHOMONAS NAAT MARIO /TRICHOMONAS NAAT Lab Routine Vaginal irritation 08/06/2023 3:59 PM EDT [facility] Work Phone: End: 08-20-2024 RENÉE SCREENING W LEANDRO RENÉE SCREENING W LEANDRO Radiology Routine Encounter for screening mammogram for malignant neoplasm of breast 1 Occurrences starting 2023 until 08/20/2024 [facility] Work Phone: Immunizations Immunization Date Immunization Notes Care Provider Gilma greer 11-30-2022 influenza virus vacc ine, unspecified formulation Bhupinder Ferreira MD Work Phone: [facility] 04-12-2021 COVID-19 vaccine, fu ll dose (MODERNA) Bhupinder Ferreira MD Work Phone: [facility] 03-15-2021 COVID-19 vaccine, fu ll dose (MODERNA) Bhupinder Ferreira MD Work Phone: [facility] 08-20-2018 influenza, seasonal, injectable Bhupinder Ferreira MD Work Phone: [facility] Payers Date Payer Category Payer Unknown [id number] 2012 Unknown [employer]THEM BLUE CARD PPO OOS [id number] 2012-Present [phone] [address] [place] [address] PPO [id number] 2012 Unknown ANTHSALLY BLUE CARD PPO OOS [id number] 2012-Present [phone] [address] [place] [address] PPO [id number] 1970 Unknown [id number] 1970 Unknown [id number] 1970 Unknown [id number] 1970 Unknown [id number] 1970 Unknown [id number] 1970 Unknown [id number] 1970 Unknown [id number] 1970 Unknown [id number] 1970 Unknown [id number] 1970 Unknown [id number] 1970 Unknown [id number] 1970 Unknown [id number] Social History Date Type Detail Facility Start: 07-03-2022 Tobacco smoking stat us NHIS Never smoked tobacco [facility] Start: 07-26-2021 End: 07-03-2022 Alcohol intake Current non-drinker of alcohol (finding) [facility] Start: 1970 Sex Assigned At Not on file [facility] Start: 07-03-2022 Tobacco use and exposure Smoke less tobacco non-user [facility] Start: 07-03-2022 End: 12-13-2022 History of Social function [facility] Start: 07-03-2022 End: 12-13-[address] [facility] PHQ2 Score 6 [facility] Notes 06-30-2013 to 09-01-2023 Telephone Encounter - Ashlee Simons RN - 09/01/2023 9:54 AM EDTTelephone Encounter - Ashlee Simons RN - 09/01/2023 9:52 AM EDTTelephone Encounter - Rebekah Zaidi RN - 09/01/2023 8:52 AM EDT Note Date & Type Note Facility 09-01-2023 Miscellaneous Notes Patient notified and voiced understanding of information and instructions below. Ashlee Simons RN Images from the original note were not included. Bhupinder Ferreira MD Ws Ob-Lace Roller Pool 31 minutes ago (9:19 AM) It could be, difficult to know for sure. It usually doesn t cause this but some women are more sensitive. She could try 1.5 mg but would try to get through it if has been off this week. Her body should be pretty adjusted by now. Patient has weaned estrace to 1 mg daily for the past two weeks per RR. Reports waking up with a daily headache since she changed dose. She does have a history of migraines before this change but never waking with daily headaches. She did see her PCP and got an injection x1 for migraine. Asking if these can be related to decreasing her dose. REBEKAH JOSE, RN documented in this encounter [facility] 08-06-2023 Note HNO ID: [id number] Author: Bhupinder Ferreira MD Service: ? Author Type: Physician Type: Progress Notes Filed: 08/06/2023 2:52 PM Note Text: Deisi is a 53 year old who presents for an annual gynecologic exam with complaints, some urinary frequency and vaginal dicsomfort. Was treated inJuly by PCP and felt better for a while and now recurrent again. No blood in urine. No vaginal bleeding . Lots of vaginal dryness despite vaginal estrogen Taking oral estrogen. Postmenopausal: yes HRT use: No. Last Pap: 05/21/2013 normal HPV: 05/12/2013 negative History of abnormal pap: No Last mammogram: 2022 normal OB History T2 L2 SAB0 IAB0 Ectopic0 Multiple0 Live Births0 Lace Roller History LMP: 09/13/2013, Hysterectomy Age at Menarche: Age at First : Age at Menopause: Lace Roller History Comments: Sexual Activity: Yes; Male Contraception: Surgical PAST MEDICAL HISTORY Diagnosis Date Abdominal pain, right upper quadrant Bipolar affective (HCC) 01/03/2012 CHOLELITH W CHOLECYS NEC 12/16/2005 Major depression 01/03/2012 Mastodynia 12/20/2011 PMH - PAST MEDICAL HISTORY OF 05/19/2001 MIGRAINES PMH - PAST MEDICAL HISTORY OF 12/09/2001 DEPRESSION PAST SURGICAL HISTORY Procedure Laterality Date COLONOSCOPY W/BIOPSY SINGLE/MULTIPLE 07-13-13 DILATION AND CURETTAGE DXAND/THER NONOBSTETRIC 07/01/2013 Dilation AND curettage EGD TRANSORAL BIOPSY SINGLE/MULTIPLE 12/20/05 LAPS ABD PRTMANDOMENTUM DX W/WO SPEC BR/WA SPX 07/01/2013 Laparoscopy LAPS SURG CHOLECYSTECTOMY W/CHOLANGIOGRAPHY 12/25/05 LAPS W/VAG HYSTERECT 250 GM/ANDRMVL TUBEAND/OVARIES 09-16-13 LAVH/RSO, left salpingectomy PAST SURGICAL HISTORY OF nose STEREOTACTIC LOCALIZATION BREAST BIOPSY Right 08/03/2018 TONSILLECTOMY PRIMARY/SECONDARY Tonsillectomy FAMILY HISTORY Problem Relation Age of Onset Arthritis Mother Stroke Mother other (anorexia) Mother Heart Father Arthritis Maternal Grandmother Heart Maternal Grandfather Arthritis Maternal Grandfather Breast Cancer Maternal Aunt SOCIAL HISTORY Social History Tobacco Use Smoking status: Never Smokeless tobacco: Never Vaping Use Vaping Use: Never used Substance Use Topics Alcohol use: No Drug use: No REVIEW OF SYSTEMS Abdomen: No abdominal pain, nausea, vomiting, diarrhea, or constipation. No bloating, early satiety, indigestion, or increased flatulence. Bladder: No dysuria, gross hematuria, urinary frequency, urinary some urgency recently Breast: No breast lumps, nipple d/c, overlying skin changes, redness or skin retraction Allergies and current medication updated:Yes EXAM: BP 124/82 Ht 5' 3 (1.60m) Wt 129 lb (58.5kg) LMP 09/13/2013 BMI 22.86 kg/(m2). GENERAL: pleasant, female in no apparent distress HEENT: Normocephalic, atraumatic, mucus membranes moist, and no lesions NECK: Supple, full range of motion, no adenopathy, and thyroid normal DERMATOLOGY: Normal, without lesions, non-icteric, and non-hirsute BREAST: soft, non-tender, symmetric, no dominant mass, normal nipple-areolar complex, no lymphadenopathy, and no nipple discharge CHEST: Normal inspiratory effort ABDOMEN: soft, non-tender, and no masses PELVIC: external genitalia normal, normal Bartholin's glands, urethra, Ridgely's glands, no vulvar lesions, good vaginal support, physiologic discharge present, normal appearing perineal body and perianal region, cervix surgically absent BIMANUAL: no adnexal masses, non-tender, and uterus surgically absent RECTOVAGINAL: deferred. NEURO: alert and oriented x3,exam grossly non-focal EXTREMITIES: normal ASSESSMENT/PLAN: 1) Health maintenance: Pap/HPV screening no longer needed Mammogram ordered 2) Follow up one year or sooner as needed IF symptoms not better after cipro consider 10 days doxy vaginitis swab collected try to wean estrace down to 1 mg daily Bhupinder Ferreira MD [facility] 08-06-2023 History of Presen t illness Narrative Deisi is a 53 year old who presents for an annual gynecologic exam with complaints, some urinary frequency and vaginal dicsomfort. Was treated inJuly by PCP and felt better for a while and now recurrent again. No blood in urine. No vaginal bleeding . Lots of vaginal dryness despite vaginal estrogen Taking oral estrogen. Postmenopausal: yes HRT use: No. Last Pap: 05/21/2013 normal HPV: 05/12/2013 negative History of abnormal pap: No Last mammogram: 2022 normal OB History T2 L2 SAB0 IAB0 Ectopic0 Multiple0 Live Births0 Lace Roller History LMP: 09/13/2013, Hysterectomy Age at Menarche: Age at First : Age at Menopause: Lace Roller History Comments: Sexual Activity: Yes; Male Contraception: Surgical PAST MEDICAL HISTORY Diagnosis Date Abdominal pain, right upper quadrant Bipolar affective (HCC) 01/03/2012 CHOLELITH W CHOLECYS NEC 12/16/2005 Major depression 01/03/2012 Mastodynia 12/20/2011 PMH - PAST MEDICAL HISTORY OF 05/19/2001 MIGRAINES PMH - PAST MEDICAL HISTORY OF 12/09/2001 DEPRESSION PAST SURGICAL HISTORY Procedure Laterality Date COLONOSCOPY W/BIOPSY SINGLE/MULTIPLE 07-13-13 DILATION & CURETTAGE DX&/THER NONOBSTETRIC 07/01/2013 Dilation & curettage EGD TRANSORAL BIOPSY SINGLE/MULTIPLE 12/20/05 LAPS ABD PRTM&OMENTUM DX W/WO SPEC BR/WA SPX 07/01/2013 Laparoscopy LAPS SURG CHOLECYSTECTOMY W/CHOLANGIOGRAPHY 12/25/05 LAPS W/VAG HYSTERECT 250 GM/&RMVL TUBE&/OVARIES 09-16-13 LAVH/RSO, left salpingectomy PAST SURGICAL HISTORY OF nose STEREOTACTIC LOCALIZATION BREAST BIOPSY Right 08/03/2018 TONSILLECTOMY PRIMARY/SECONDARY <AGE 12 08/02/2004 Tonsillectomy FAMILY HISTORY Problem Relation Age of Onset Arthritis Mother Stroke Mother other (anorexia) Mother Heart Father Arthritis Maternal Grandmother Heart Maternal Grandfather Arthritis Maternal Grandfather Breast Cancer Maternal Aunt SOCIAL HISTORY Social History Tobacco Use Smoking status: Never Smokeless tobacco: Never Vaping Use Vaping Use: Never used Substance Use Topics Alcohol use: No Drug use: No REVIEW OF SYSTEMS Abdomen: No abdominal pain, nausea, vomiting, diarrhea, or constipation. No bloating, early satiety, indigestion, or increased flatulence. Bladder: No dysuria, gross hematuria, urinary frequency, urinary some urgency recently Breast: No breast lumps, nipple d/c, overlying skin changes, redness or skin retraction Allergies and current medication updated:Yes EXAM: BP 124/82 Ht 5' 3 (1.60m) Wt 129 lb (58.5kg) LMP 09/13/2013 BMI 22.86 kg/(m^2). GENERAL: pleasant, female in no apparent distress HEENT: Normocephalic, atraumatic, mucus membranes moist, and no lesions NECK: Supple, full range of motion, no adenopathy, and thyroid normal DERMATOLOGY: Normal, without lesions, non-icteric, and non-hirsute BREAST: soft, non-tender, symmetric, no dominant mass, normal nipple-areolar complex, no lymphadenopathy, and no nipple discharge CHEST: Normal inspiratory effort ABDOMEN: soft, non-tender, and no masses PELVIC: external genitalia normal, normal Bartholin's glands, urethra, Ridgely's glands, no vulvar lesions, good vaginal support, physiologic discharge present, normal appearing perineal body and perianal region, cervix surgically absent BIMANUAL: no adnexal masses, non-tender, and uterus surgically absent RECTOVAGINAL: deferred. NEURO: alert and oriented x3,exam grossly non-focal EXTREMITIES: normal ASSESSMENT/PLAN: 1) Health maintenance: Pap/HPV screening no longer needed Mammogram ordered 2) Follow up one year or sooner as needed IF symptoms not better after cipro consider 10 days doxy vaginitis swab collected try to wean estrace down to 1 mg daily Bhupinder Ferreira MD documented in this encounter [facility] 2023 Miscellaneous Notes Please file orders for a Leandro mammogram screening for this patients' upcoming appointment. Thanks documented in this encounter [facility] 07-11-2023 Miscellaneous Notes Annual scheduled with RR 08/06/23. Requested Prescriptions Pending Prescriptions Disp Refills estradiol (ESTRACE) 2 mg tablet 30 tablet 1 Sig: Take 1 tablet by mouth once daily. Oneyda Montano RN Patient is calling requesting this medication again prefers to use [facility] in [place] documented in this encounter [facility] 12-20-2022 Miscellaneous Notes December 23, 2022 PID: [id number] Deisi Harvey [address] [place] [address] Dear Ms. Harvey, We are pleased to inform you that the results of your recent breast imaging exam on 12/19/2022 are normal. Your mammogram demonstrates that you have dense breast tissue, which could hide abnormalities. Dense breast tissue, in and of itself, is a relatively common condition. Therefore, this information is not provided to cause undue concern; rather, it is to raise your awareness and promote discussion with your health care provider regarding the presence of dense breast tissue in addition to other risk factors. Early detection of cancer is very important. We also understand recommendations regarding breast cancer screening are controversial. Please discuss with your primary care provider which strategy is best for you and whether a mammogram is right for you. Your imaging studies and report will be kept on file at [facility] as part of your permanent medical record and are available for your continuing care. Thank you for allowing us to help in meeting your health care needs. Sincerely, Dr. Ny Interpreting Radiologist [facility] (Normal over 40) documented in this encounter [facility] 12-19-2022 Note HNO ID: [id number] Author: RT Natividad(R) Service: ? Author Type: Technologist Type: Progress Notes Filed: 12/19/2022 11:02 AM Note Text: Radiology Service Progress Note PATIENT NAME: Deisi Harvey DATE OF SERVICE: December 19, 2022 TIME: 11:02 AM PATIENT IDENTITY VERIFICATION COMPLETED USING TWO (2) IDENTIFIERS: Name and Date of confirmed by patient verbally. FALL SCREENING: Has the patient had 2 falls in the last year or 1 fall with injury or currently using an Ambulatory Assistive Device (Walker, Cane, Wheelchair, Crutches, etc.)? No PATIENT GENDER DATA: Female. status: : No status: NO. PATIENT RELEVANT IMPLANT DATA REVIEWED: Not Applicable RADIOLOGY DEPARTMENT: Mammography PERIPHERAL IV DATA: Not applicable SIGNED BY: RT Natividad(R) December 19, 2022 11:02 AM [facility] 12-19-2022 History of Presen t illness Narrative Radiology Service Progress Note PATIENT NAME: Deisi Harvey DATE OF SERVICE: December 19, 2022 TIME: 11:02 AM PATIENT IDENTITY VERIFICATION COMPLETED USING TWO (2) IDENTIFIERS: Name and Date of confirmed by patient verbally. FALL SCREENING: Has the patient had 2 falls in the last year or 1 fall with injury or currently using an Ambulatory Assistive Device (Walker, Cane, Wheelchair, Crutches, etc.)? No PATIENT GENDER DATA: Female. status: : No status: NO. PATIENT RELEVANT IMPLANT DATA REVIEWED: Not Applicable RADIOLOGY DEPARTMENT: Mammography PERIPHERAL IV DATA: Not applicable SIGNED BY: RT Natividad(R) December 19, 2022 11:02 AM documented in this encounter [facility] 09-05-2022 Miscellaneous Notes Patient request for medication is as follows: Requested Prescriptions Pending Prescriptions Disp Refills estradiol (ESTRACE) 0.01 % (0.1 mg/gram) vaginal cream [Pharmacy Med Name: ESTRADIOL 0.01% CREAM] 42.5 g 1 Sig: APPLY A PEA SIZED AMOUNT TO LOWER VAGINA AT BEDTIME TWICE WEEKLY Last annual exam: 07/03/22 Please approve the above prescription(s) to electronically send to pharmacy. Araceli Khalil RN documented in this encounter [facility] 06-04-2022 Miscellaneous Notes Patient has yearly exam 07/03/2022. Patient has been identified by name and date of : Yes Last office visit in this department: 07/25/2008 RX INSTRUCTIONS: Patient aware RX will be sent to pharmacy. No need to notify patient. Patient phones requesting refills as follows: Pending Prescriptions Disp Refills ESTRADIOL 2 MG TABLET 30 tablet 11 Sig: Take 1 tablet by mouth once daily. DIEUDONNE: No Annual scheduled 07/03/2022 Please review and advise. Vandana Garza documented in this encounter [facility] documented as of this encounter (statuses as of 06/04/2022) [facility]08-14-2013 History of Past illness Narrative* Problem Noted Date Resolved Date Pelvic pain in female 06/30/2013 10/29/2013 Menorrhagia 06/30/2013 10/29/2013 Dysmenorrhea 06/30/2013 10/29/2013 Mastodynia 12/20/2011 02/10/2012 GASTRITIS CHRONIC ATROPHIC( W/O Hemorrhage) 01/200609/12/2016 Abdominal pain, right upper quadrant 12/20/2005 02/10/2012 Calculus of gallbladder with other cholecystitis, without mention of obstruction 12/16/2005 02/10/2012 Abdominal pain, unspecified site 12/16/2005 10/29/2013 documented as of this encounter (statuses as of 09/06/2022) [facility] History of Past illness Narrative* Problem Noted Date Resolved Date Pelvic pain in female 06/30/2013 10/29/2013 Menorrhagia 06/30/2013 10/29/2013 Dysmenorrhea 06/30/2013 10/29/2013 Mastodynia 12/20/2011 02/10/2012 GASTRITIS CHRONIC ATROPHIC( W/O Hemorrhage) 0 01/200609/12/2016 Abdominal pain, right upper quadrant 12/20/2005 02/10/2012 Calculus of gallbladder with other cholecystitis, without mention of obstruction 12/16/2005 02/10/2012 Abdominal pain, unspecified site 12/16/2005 10/29/2013 documented as of this encounter (statuses as of 11/21/2022) [facility] History of Past illness Narrative* Problem Noted Date Resolved Date Pelvic pain in female 06/30/2013 10/29/2013 Menorrhagia 06/30/2013 10/29/2013 Dysmenorrhea 06/30/2013 10/29/2013 Mastodynia 12/20/2011 02/10/2012 GASTRITIS CHRONIC ATROPHIC( W/O Hemorrhage) 02/01/200609/12/2016 Abdominal pain, right upper quadrant 12/20/2005 02/10/2012 Calculus of gallbladder with other cholecystitis, without mention of obstruction 12/16/2005 02/10/2012 Abdominal pain, unspecified site 12/16/2005 10/29/2013 documented as of this encounter (statuses as of 12/24/2022) [facility] History of Past illness Narrative* Problem Noted Date Diagnosed Date Resolved Date Pelvic pain in female 06/30/20132012 Menorrhagia 06/30/2013 10/29/2013 Dysmenorrhea 06/30/2013 10/29/2013 Mastodynia 12/20/2011 02/10/2012 GASTRITIS CHRONIC ATROPHIC( W/O Hemorrhage) 12/20/2005 09/12/2016 Abdominal pain, right upper quadrant 12/20/2005 02/10/2012 Calculus of gallbladder with other cholecystitis, without mention of obstruction 12/16/2005 02/10/2012 Abdominal pain, unspecified site 12/16/2005 10/29/2013 documented as of this encounter (statuses as of 07/14/2023) [facility] History of Past illness Narrative* Problem Noted Date Diagnosed Date Resolved Date Pelvic pain in female 06/30/20132012 Menorrhagia 06/30/2013 10/29/2013 Dysmenorrhea 06/30/2013 10/29/2013 Mastodynia 12/20/2011 02/10/2012 GASTRITIS CHRONIC ATROPHIC( W/O Hemorrhage) 12/20/2005 09/12/2016 Abdominal pain, right upper quadrant 12/20/2005 02/10/2012 Calculus of gallbladder with other cholecystitis, without mention of obstruction 12/16/2005 02/10/2012 Abdominal pain, unspecified site 12/16/2005 10/29/2013 documented as of this encounter (statuses as of 07/23/2023) [facility] History of Past illness Narrative* Problem Noted Date Diagnosed Date Resolved Date Pelvic pain in female 06/30/20132012 Menorrhagia 06/30/2013 10/29/2013 Dysmenorrhea 06/30/2013 10/29/2013 Mastodynia 12/20/2011 02/10/2012 GASTRITIS CHRONIC ATROPHIC( W/O Hemorrhage) 12/20/2005 09/12/2016 Abdominal pain, right upper quadrant 12/20/2005 02/10/2012 Calculus of gallbladder with other cholecystitis, without mention of obstruction 12/16/2005 02/10/2012 Abdominal pain, unspecified site 12/16/2005 10/29/2013 documented as of this encounter (statuses as of 08/07/2023) [facility] History of Past illness Narrative* Problem Noted Date Diagnosed Date Resolved Date Pelvic pain in female 06/30/20132012 Menorrhagia 06/30/2013 10/29/2013 Dysmenorrhea 06/30/2013 10/29/2013 Mastodynia 12/20/2011 02/10/2012 GASTRITIS CHRONIC ATROPHIC( W/O Hemorrhage) 12/20/2005 09/12/2016 Abdominal pain, right upper quadrant 12/20/2005 02/10/2012 Calculus of gallbladder with other cholecystitis, without mention of obstruction 12/16/2005 02/10/2012 Abdominal pain, unspecified site 12/16/2005 10/29/2013 documented as of this encounter (statuses as of 09/01/2023) [facility] History of Past illness Narrative* Problem Noted Date Diagnosed Date Resolved Date Pelvic pain in female 06/30/20132012 Menorrhagia 06/30/2013 10/29/2013 Dysmenorrhea 06/30/2013 10/29/2013 Mastodynia 12/20/2011 02/10/2012 GASTRITIS CHRONIC ATROPHIC( W/O Hemorrhage) 12/20/2005 09/12/2016 Abdominal pain, right upper quadrant 12/20/2005 02/10/2012 Calculus of gallbladder with other cholecystitis, without mention of obstruction 12/16/2005 02/10/2012 Abdominal pain, unspecified site 12/16/2005 10/29/2013 documented as of this encounter (statuses as of 09/21/2023) [facility] Encounter for screening mammogram for malignant neoplasm of breast- Primary Other screening mammogram [facility] Diagnosis Vaginal irritation- Primary Unspecified noninflammatory disorder of vagina Encounter for gynecological examination (general) (routine) without abnormal findings [facility] Diagnosis Encounter for screening mammogram for breast cancer documented in this encounter [facility] for referral (narrative)* Diagnostic Procedure Only (Routine) - Authorized Specialty Diagnoses / Procedures Referred By Hetal de leon Referred To Contact [facility] Diagnoses Encounter for screening mammogram for malignant neoplasm of breast Procedures RENÉE SCREENING W LEANDRO SCREENING DIGITAL BREAST TOMOSYNTHESIS BI SCREENING MAMMOGRAPHY BI 2-VIEW BREAST INC Bhupinder Maldonado MD [address] [place] [address] [facility] [address] [place] [address] Referral ID Status Reason Start Date Expiration Date Visits Requested Visits Authorized [id number] Authorized Auto-Generat ed Referral 2023 08/20/2024 1 1 [facility] for referral (narrative)* Diagnostic Procedure Only (Routine) - Closed Specialty Diagnoses / Procedures Referred By Hetal de leon Referred To Contact [facility] Diagnoses Encounter for screening mammogram for breast cancer Procedures RENÉE SCREENING W LEANDRO SCREENING DIGITAL BREAST TOMOSYNTHESIS BI SCREENING MAMMOGRAPHY BI 2-VIEW BREAST INC Bhupinder Maldonado MD [address] [place] [address] [facility] [address] [facility] [address] Referral ID Status Reason Start Date Expiration Date V isits Requested Visits Authorized [id number] Closed Auto-Generate d Referral 07/03/2022 08/02/2023 1 1 [facility] for visit Narrative* Diagnostic Procedure Only (Routine) - Closed Specialty Diagnoses / Procedures Referred By Hetal de leon Referred To Contact [facility] Diagnoses Encounter for screening mammogram for breast cancer Procedures RENÉE SCREENING W LEANDRO SCREENING DIGITAL BREAST TOMOSYNTHESIS BI SCREENING MAMMOGRAPHY BI 2-VIEW BREAST INC CAD Bhupinder Ferreira MD [address] [place] [address] [facility] [address] [place] [address] Referral ID Status Reason Start Date Expiration Date V isits Requested Visits Authorized [id number] Closed Auto-Generate d Referral 07/03/2022 08/02/[address] [facility] Summary Purpose Family History No Family History Records FoundNo Family History Records FoundNo Family History Records FoundNo Family History Records Found Advance Directives Documents on File Type Date Recorded Patient Market Relationship Manager Expl anation Advance Directive(s) 10/17/2018 7:50 AM Hospital Course Note HNO ID: [id number]: Michelle RawlsourService: PsychiatryAuthor Type: PhysicianType: Discharge SummariesFiled: 10/23/2018 2:14 PMNote Text: DISCHARGE SUMMARYBEHAVIORAL HEALTHPATIENT NAME: Deisi Harvey ADMISSION DATE: 10/17/2018MRN: [id number] DISCHARGE DATE: 10/23/2018ATTENDING PHYSICIAN: Mike Nova Code Status: Not on fileHighest Readmission Risk Score: 14The 30 day readmissions risk score is derived from an internally validatedrisk model which evaluates patient level characteristics, utilizationhistory, medication orders and lab results up until the day of discharge.Patients with a score of 40 or above are considered highest risk forreadmission. Specific patient level drivers will be listed at the bottomof the summary.REASON FOR HOSPITALIZATION: Risk of physical harm to selfDISCHARGE DIAGNOSIS:1. PRIMARY: Anxiety Disorder Generalized Anxiety Disorder2. Mood Disorder Major Depressive Disorder, Recurrent, Severe WithoutPsychotic SymptomsOPERATIONS DURING HOSPITALIZATION: No (more content not included)... Reason for Referral Specialty Diagnoses / Procedures Referred By Contpernell t Referred To Contact Jessica Leiva APRN.[facility]IP [address] [place] [address] Referral ID Status Reason Start Date Expiration Date Visits Re quested Visits Authorized [id number] Closed 1 1 Additional Source Comments INFORMATION SOURCE (unrecogn ized section and content) DATE CREATED AUTHOR AUTHOR'S ORGANIZ ATION 11/11/2018 [facility] DATE CREATED AUTHOR AUTHOR'S ORGANIZ ATION 01/05/2019 [facility] DATE CREATED AUTHOR AUTHOR'S ORGANIZ ATION 09/02/2023 [facility] Source Comments (unrecognize d section and content) In the event this informatio n is protected by the Federal Confidentiality of Alcohol and Drug Abuse Patient Records regulations: The Federal rules restrict any use of the information to criminally investigate or prosecute any alcohol or drug abuse patient.[facility] the event this information is protected by the Federal Confidentiality of Alcohol and Drug Abuse Patient Records regulations: The Federal rules restrict any use of the information to criminally investigate or prosecute any alcohol or drug abuse patient.[facility] the event this information is protected by the Federal Confidentiality of Alcohol and Drug Abuse Patient Records regulations: The Federal rules restrict any use of the information to criminally investigate or prosecute any alcohol or drug abuse patient.[facility] the event this information is protected by the Federal Confidentiality of Alcohol and Drug Abuse Patient Records regulations: The Federal rules restrict any use of the information to criminally investigate or prosecute any alcohol or drug abuse patient.[facility] the event this information is protected by the Federal Confidentiality of Alcohol and Drug Abuse Patient Records regulations: The Federal rules restrict any use of the information to criminally investigate or prosecute any alcohol or drug abuse patient.[facility] the event this information is protected by the Federal Confidentiality of Alcohol and Drug Abuse Patient Records regulations: The Federal rules restrict any use of the information to criminally investigate or prosecute any alcohol or drug abuse patient.[facility] the event this information is protected by the Federal Confidentiality of Alcohol and Drug Abuse Patient Records regulations: The Federal rules restrict any use of the information to criminally investigate or prosecute any alcohol or drug abuse patient.[facility] the event this information is protected by the Federal Confidentiality of Alcohol and Drug Abuse Patient Records regulations: The Federal rules restrict any use of the information to criminally investigate or prosecute any alcohol or drug abuse patient.[facility] the event this information is protected by the Federal Confidentiality of Alcohol and Drug Abuse Patient Records regulations: The Federal rules restrict any use of the information to criminally investigate or prosecute any alcohol or drug abuse patient.[facility] Reason for Visit (unrecogniz ed section and content) Reason Comments Refill Request Reason Onset Date Comments Refill Request Refill Request 07/11/2023 Reason Comments Orders Reason Comments Yearly Exam Reason Comments Patient Question Care Teams (unrecognized sec tion and content) Senior Sales Engineer Relationship Specialty Start Date End Date Enrique Varela MD [address] [place] [address] [id number] PCP - General 04/03/04 Senior Sales Engineer Relationship Specialty Start Date End Date Enrique Varela MD [address] [place], [place] [address] [address] PCP - General 04/03/04 Senior Sales Engineer Relationship Specialty Start Date End Date Enrique Varela MD [address] [place] [id number] PCP - General 04/03/04 Senior Sales Engineer Relationship Specialty Start Date End Date Enrique Varela MD [address] [place] [id number] PCP - General 04/03/04 Senior Sales Engineer Relationship Specialty Start Date End Date Enrique Varela MD [address], [place] [id number] PCP - General 04/03/04 Senior Sales Engineer Relationship Specialty Start Date End Date Enrique Varela MD [address], [place] [phone] PCP - General 04/03/04 Senior Sales Engineer Relationship Specialty Start Date End Date Enrique Varela MD [address], [place] 377881 PCP General 04/03/04 Senior Sales Engineer Relationship Specialty Start Date End Date Enrique Varela MD [address], [place] [id number] PCP General 04/03/04 FOR RECORDS PERTAINING TO PATIENTS WHO ARE OR HAVE BEEN ENROLLED IN A CHEMICAL DEPENDENCY/SUBSTANCEABUSE PROGRAM, SOME INFORMATION MAY BE OMITTED. This clinical summary was aggregated from multiple sources. Caution should be exercised in using it in the provision of clinical care. This summary normalizes information from multiple sources, and as a consequence, information in this document may materially change the coding, format and clinical context of patient data. In addition, data may be omitted in some cases. CLINICAL DECISIONS SHOULD BE BASED ON THE PRIMARY CLINICAL RECORDS. [facility] [employer] [facility]. provides no warranty or guarantee of the accuracy or completeness of information in this document.
== END | disposition home or self-care (01) ==
LOC: LAB 13:18
PROVIDERS: PCP Family Medicine; Referring Provider Internal Medicine; Visit Provider Internal Medicine
DX: K76.0 Fatty (change of) liver, not elsewhere classified (principal); R10.9 Unspecified abdominal pain
CPT/HCPCS: 36415; 80053; 80061; 82977; 83036; 85025; 85610

== ENCOUNTER 2024-07-16 17:16 | Emergency (ER) | payer BC, SELFPAY ==
[2024-07-16 17:16] VITALS: BP 148/101; PULSE 84; RESP 18; TEMP 36.2; O2SAT 98; BMI 23.1
--- NOTE | 2024-07-16 19:04 | ED.VIS.LOWEX ---
HPI History of Present Illness Chief Complaint: Lower Extremity Injury Informant: patient Narrative Narrative: Right foot injury occurring last evening. Dropped a 2 x 4 on her foot. She went to her PCP this morning had outpatient x-rays ordered. Increasing swelling in her shoe would not fit appropriately. She did not know what to do therefore she came to the emergency department. While in the emergency department she states she received a call from her PCP stating it was negative pending radiology read. No other injuries. She been using [id number] pain medications at home. [facility] Medical History Fatty liver Anorexia Vertigo History of diverticulitis Non-smoker Shortness of breath on exertion History of edema History of echocardiogram Cardiology follow-up encounter COVID-19 virus detected (08/29/20) Nonobstructive atherosclerosis of coronary artery NSTEMI, initial episode of care (10/07/21) Elevated troponin level Degenerative disc disease, cervical Cervical radiculopathy Depression GERD (gastroesophageal reflux disease) Epigastric abdominal pain Frequent headaches Anxiety Bipolar disease, chronic Home Medications ?Medication ?Instructions ?Recorded ?Last Taken ?Type desogestrel-e.estradiol 0.15 2 mg PO DAILY 08/25/13 10/29/21 History mg-0.02 mg(21)/e.estrad 0.01 mg(5) tablet quetiapine 25 mg tablet 50 mg PO QHS 10/07/18 10/29/21 History bupropion HCl 100 mg tablet 100 mg PO DAILY 08/09/19 10/29/21 History desvenlafaxine succinate 25 mg 50 mg PO DAILY 04/14/21 10/29/21 History tablet,extended release 24 hr (Pristiq) lamotrigine 200 mg tablet 200 mg PO QHS 04/14/21 10/29/21 History (Lamictal) ondansetron 4 mg disintegrating 4 mg PO Q8H PRN PRN Nausea #10 tabs 10/30/23 Unknown Rx tablet dicyclomine 20 mg tablet 10 mg (1/2 x 20 mg) PO TID PRN 12/05/23 Unknown Rx abdominal pain/cramps #30 tabs aspirin 81 mg tablet,delayed 81 mg PO DAILY #30 tabs 03/02/24 Unknown Rx release (Adult Aspirin Regimen) atorvastatin 20 mg tablet 20 mg PO DAILY #90 tabs 03/02/24 Unknown Rx trazodone 50 mg tablet 25 mg PO QHS 03/02/24 Unknown History lansoprazole 30 mg capsule,delayed 30 mg PO DAILY #60 caps 04/25/24 Unknown Rx release Allergy/AdvReac Type Severity Reaction Status Date / Time verapamil Allergy Mild Rash Verified 07/16/24 17:16 amoxicillin (Amoxicillin) Allergy Hives Verified 07/16/24 17:16 sulfamethoxazole (From Allergy Rash Verified 07/16/24 17:16 Septra) trimethoprim (From Septra) Allergy Rash Verified 07/16/24 17:16 diphenhydramine (From AdvReac Other Verified 07/16/24 17:16 Benadryl) moxifloxacin (From Avelox) AdvReac NEEDS Verified 07/16/24 17:16 FOLLOW-UP olanzapine (From Zyprexa) AdvReac Unknown Verified 07/16/24 17:16 oxcarbazepine (From AdvReac Unknown Verified 07/16/24 17:16 Trileptal) sumatriptan (From Imitrex) AdvReac Other Verified 07/16/24 17:16 zolmitriptan (From Zomig) AdvReac Unknown Verified 07/16/24 17:16 Family History Mother CVA (cerebral vascular accident) Surgical History History of nasal septoplasty History of tonsillectomy and adenoidectomy History of hysterectomy History of cholecystectomy History of carpal tunnel release History of left heart catheterization (10/08/21) Social History household members: spouse Smoking Status: Never smoker alcohol intake: never substance use type: does not use ROS ROS ED Constitutional Constitutional ED: Denies fever(s) Cardiovascular Cardiovascular: Denies chest pain Respiratory/Chest Respiratory/Chest: Denies cough Gastrointestinal Gastrointestinal: Denies abdominal pain, diarrhea, nausea or vomiting Genitourinary Genitourinary ED: Denies dysuria Musculoskeletal Musculoskeletal: Reports extremity pain Integumentary Denies wounds Neurologic Neurologic: Denies paresthesias EXAM Physical Exam Const Vital Signs: 07/16/24 17:16 Temperature 97.2 F L Temperature Source Temporal Pulse Rate 84 Respiratory Rate 18 Blood Pressure 148/101 H Blood Pressure Mean 116 Pulse Ox 98 Oxygen Delivery Method Room Air Positive well nourished and well developed General Appearance ED: well developed and NAD HEENT Reports moist mucous membranes normocephalic and atraumatic Eyes EOMs intact bilaterally and conjunctivae normal General Eye ED: Yes normal appearance of both eyes Neck no lymphadenopathy and supple General: Negative for tenderness Chest Wall Chest: Negative for tenderness Resp normal respiratory effort and normal air movement Effort and Inspection: symmetric chest movement; Negative for respiratory distress Cardio regular rate, regular rhythm and no murmurs Peripheral Pulses: pulses 2+ throughout GI normal to inspection, nondistended, normoactive bowel sounds and non-tender Palpation: Negative for guarding or rebound tenderness present Back/Spine no CVA tenderness and no thoracic nor lumbar tenderness Extremity normal to inspection General Extremety ED: Negative for edema or tenderness General Extremity: Negative for edema Neuro oriented x3 and no sensory deficits noted Sensorium / Orientation: awake and alert Skin no rashes or lesions noted and no wounds MDM MDM MDM Narrative Medical decision making narrative: Interventions / MDM: Differential diagnosis: Contusion Diagnosis considered but do not suspect: Fracture however x-ray negative My EKG interpretation: N/A Imaging independently reviewed and interpreted by myself: N/A External documents reviewed: 3 view right foot x-ray reviewed interpreted myself and read by radiology shows no fracture noted. Soft tissue swelling. Test considered but not ordered:N/A ED course: Patient with injury in foot with x-rays performed outpatient. Department myself and also read by radiology no fractures soft tissue swelling. Sridhar wrap postop shoe provided. Discussed continue NSAIDs every 6 hours as needed. Outpatient follow-up. All questions were answered. Re-evaluation: stable Disposition discussed with patient/family/significant other: Patient Case discussed with consulting clinician: N/A This note was generated with [employer] dictation software. It may contain incorrect words, spelling, and punctuation that were not noted in checking the note before signing. Discharge Plan Triage Chief Complaint: Lower Extremity Injury ED Provider: Cyrus Malave Dx/Rx/DC Orders Clinical Impression: Contusion of foot, left, Injury of foot, left Instructions: ED Foot Contusion Prescriptions: No Action aspirin [Adult Aspirin Regimen] 81 mg tablet,delayed release (DR/EC) 81 mg PO DAILY Qty: 30 11RF atorvastatin 20 mg tablet 20 mg PO DAILY Qty: 90 3RF desog-e.estradiol/e.estradiol 1 EACH tablet 2 mg PO DAILY Patient Comments: hormones bupropion HCl 100 mg tablet 100 mg PO DAILY Patient Comments: mood quetiapine 25 MG tablet 50 mg PO QHS trazodone 50 mg tablet 25 mg PO QHS lamotrigine [Lamictal] 200 mg tablet 200 mg PO QHS Patient Comments: take 1 tablet by mouth once daily desvenlafaxine succinate [Pristiq] 25 mg tablet extended release 24 hr 50 mg PO DAILY Patient Comments: take 1 tablet by mouth once daily ondansetron [ondansetron] 4 mg tablet,disintegrating 4 mg PO Q8H PRN PRN (Reason: Nausea) Qty: 10 0RF dicyclomine 20 mg tablet 10 mg PO TID PRN (Reason: abdominal pain/cramps) Qty: 30 2RF lansoprazole 30 mg capsule,delayed release(DR/EC) 30 mg PO DAILY Qty: 60 3RF Primary Care Provider: Sumanth Krause Referrals: Sumanth Krause MD [Primary Care Provider] - Activity Restrictions/Additional Instructions: Foot x-ray was reviewed negative for any fracture. Sridhar wrap postop shoe for comfort. Continue Motrin up to 600 mg every 6 hours for next 2 days then as needed. Print Language: Kazakh Disposition Disposition: Home, Self Care Discharge Date/Time: 07/16/24 19:50
== END 2024-07-16 19:50 | disposition home or self-care (01) ==
PROVIDERS: Emergency Provider Emergency Medicine; PCP Family Medicine; Visit Provider Emergency Medicine
DX: S90.32XA Contusion of left foot, initial encounter (principal); F31.9 Bipolar disorder, unspecified; I25.10 Atherosclerotic heart disease of native coronary artery without angina pectoris; W22.8XXA Striking against or struck by other objects, initial encounter; I25.2 Old myocardial infarction; Z79.3 Long term (current) use of hormonal contraceptives; Z79.899 Other long term (current) drug therapy; K21.9 Gastro-esophageal reflux disease without esophagitis; Z90.710 Acquired absence of both cervix and uterus; Z90.49 Acquired absence of other specified parts of digestive tract
CPT/HCPCS: 99283

== ENCOUNTER → 2024-07-16 | Outpatient (CLI) | payer BC, SELFPAY ==
--- NOTE | 2024-07-16 11:26 | RAD_ITS ---
STUDY: X-RAY - RIGHT FOOT CLINICAL: Female, 53 years old. FOOT INJURY TECHNIQUE: 3 view(s) of the foot. COMPARISON: None. FINDINGS: Normal talus, calcaneus, and tarsal bones. Normal visualized subtalar, talonavicular, calcaneocuboid, tarsal and tarsometatarsal articulations. Normal metatarsi. Normal metatarsophalangeal joint of the great toe. Normal tibial and fibular sesamoid bones. Normal interphalangeal joint of the great toe. Normal phalanges of the great toe. Normal second through fifth metatarsophalangeal joints. Normal interphalangeal joints and phalanges of the lesser toes. There is soft tissue swelling of the dorsal surface of the foot. RAD/Foot min 3 Views IMPRESSION: Soft tissue swelling without evidence for acute fracture or dislocation Electronically Signed: Julio Woods MD at 16:52 EDT ,
== END | disposition home or self-care (01) ==
PROVIDERS: PCP Family Medicine; Referring Provider Family Medicine; Visit Provider Family Medicine
DX: S99.929A Unspecified injury of unspecified foot, initial encounter (principal)
CPT/HCPCS: 73630

== ENCOUNTER 2024-09-03 16:12 | Emergency (ER) | payer BC, SELFPAY ==
[2024-09-03 16:13] VITALS: BP 168/90; PULSE 89; RESP 16; TEMP 35.9; O2SAT 98
--- NOTE | 2024-09-03 17:11 | CT_ITS ---
STUDY: CT BRAIN WITHOUT CONTRAST REASON FOR EXAM: Female, 54 years old. Pain RADIATION DOSAGE (If Supplied By Facility): CTDIvol = ( 44.99 ) mGy, DLP = ( 779.24 ) mGycm TECHNIQUE: Transaxial CT imaging of the brain was performed without administration of intravenous contrast material. Individualized dose optimization techniques were used for this CT. COMPARISON: 04/14/2021 FINDINGS: Normal soft tissue structures. Normal calvarium. Normal size ventricles and extra-axial spaces for the patient''s age. Normal white matter tracts of the cerebral hemispheres. Normal basal ganglia and thalami. Normal brainstem. Normal cerebellum. There is no intracranial hemorrhage. There are no findings of an acute ischemic infarction. Normal visualized paranasal sinuses. CT/Brain/Head without Contrast IMPRESSION: Normal unenhanced CT scan of the brain. Electronically Signed: Karri Velasco MD at 17:59 EDT ,
[2024-09-03] MEDS: 0.9% Normal Saline (1000mL) 1,000 ML 999 ML IV (17:27)
[2024-09-03] MEDS: Metoclopramide 10 MG/2 ML Vial IV (17:27)
[2024-09-03 18:06] VITALS: BP 149/86; PULSE 87; RESP 16; O2SAT 97
--- NOTE | 2024-09-03 18:56 | EX.ED.VIS.HA ---
HPI History of Present Illness Chief Complaint: Headache Informant: patient Onset/Context/Timing Onset: Days (5) Context: Gradual Timing: Intermittent Quality -Headache: Positive for Similar Prior Headaches and Sharp Location: Right side of her head, top of head, and face Worsened by: Bright lights Relieved by: Nothing Associated Symptoms/Injury Associated Symptoms: Positive for Nausea and Photophobia; Negative for Fever, Vomiting, Sore Throat, Sinus Pressure, Numbness, Tingling, Preceding Aura, Visual Changes, Blurred Vision or Visual Loss Narrative Narrative: Patient presents with headache that has been intermittent over the last 5 days. Patient describes the pain as sharp. Patient states the pain is mainly over the right side of her head and also up and up overhead. Patient states it is worse with lights. Patient states it feels similar to prior migraine headaches. Patient describes it as sharp. Patient admits to some nausea but denies any vomiting. Patient admits to some photophobia. Patient denies any paresthesias or weakness. Patient denies any visual changes. PFSH [facility] Medical History Fatty liver Anorexia Vertigo History of diverticulitis Non-smoker Shortness of breath on exertion History of edema History of echocardiogram Cardiology follow-up encounter COVID-19 virus detected (08/29/20) Nonobstructive atherosclerosis of coronary artery NSTEMI, initial episode of care (10/07/21) Elevated troponin level Degenerative disc disease, cervical Cervical radiculopathy Depression GERD (gastroesophageal reflux disease) Epigastric abdominal pain Frequent headaches Anxiety Bipolar disease, chronic Home Medications ?Medication ?Instructions ?Recorded ?Last Taken ?Type desogestrel-e.estradiol 0.15 2 mg PO DAILY 08/25/13 10/29/21 History mg-0.02 mg(21)/e.estrad 0.01 mg(5) tablet quetiapine 25 mg tablet 50 mg PO QHS 10/07/18 10/29/21 History bupropion HCl 100 mg tablet 100 mg PO DAILY 08/09/19 10/29/21 History desvenlafaxine succinate 25 mg 50 mg PO DAILY 04/14/21 10/29/21 History tablet,extended release 24 hr (Pristiq) lamotrigine 200 mg tablet 200 mg PO QHS 04/14/21 10/29/21 History (Lamictal) ondansetron 4 mg disintegrating 4 mg PO Q8H PRN PRN Nausea #10 tabs 10/30/23 Unknown Rx tablet dicyclomine 20 mg tablet 10 mg (1/2 x 20 mg) PO TID PRN 12/05/23 Unknown Rx abdominal pain/cramps #30 tabs aspirin 81 mg tablet,delayed 81 mg PO DAILY #30 tabs 03/02/24 Unknown Rx release (Adult Aspirin Regimen) atorvastatin 20 mg tablet 20 mg PO DAILY #90 tabs 03/02/24 Unknown Rx trazodone 50 mg tablet 25 mg PO QHS 03/02/24 Unknown History lansoprazole 30 mg capsule,delayed 30 mg PO DAILY #60 caps 04/25/24 Unknown Rx release Allergy/AdvReac Type Severity Reaction Status Date / Time verapamil Allergy Mild Rash Verified 09/03/24 16:12 amoxicillin (Amoxicillin) Allergy Hives Verified 09/03/24 16:12 sulfamethoxazole (From Allergy Rash Verified 09/03/24 16:12 Septra) trimethoprim (From Septra) Allergy Rash Verified 09/03/24 16:12 diphenhydramine (From AdvReac Other Verified 09/03/24 16:12 Benadryl) moxifloxacin (From Avelox) AdvReac NEEDS Verified 09/03/24 16:12 FOLLOW-UP olanzapine (From Zyprexa) AdvReac Unknown Verified 09/03/24 16:12 oxcarbazepine (From AdvReac Unknown Verified 09/03/24 16:12 Trileptal) sumatriptan (From Imitrex) AdvReac Other Verified 09/03/24 16:12 zolmitriptan (From Zomig) AdvReac Unknown Verified 09/03/24 16:12 Family History Mother CVA (cerebral vascular accident) Surgical History History of nasal septoplasty History of tonsillectomy and adenoidectomy History of hysterectomy History of cholecystectomy History of carpal tunnel release History of left heart catheterization (10/08/21) Social History household members: spouse Smoking Status: Never smoker alcohol intake: never substance use type: does not use ROS ROS ED Constitutional Constitutional ED: Denies chills or fever(s) Eyes Eyes: Denies blurry vision or change in vision ENT ENT ED: Denies rhinorrhea or sore throat Cardiovascular Cardiovascular: Denies chest pain or palpitations Respiratory/Chest Respiratory/Chest: Denies cough or dyspnea Gastrointestinal Gastrointestinal: Reports nausea; Denies vomiting Genitourinary Genitourinary ED: Denies dysuria or hematuria Musculoskeletal Musculoskeletal: Denies back pain or neck pain Integumentary Denies abscess or rash Neurologic Neurologic: Reports headache(s); Denies weakness Allergic/Immunologic Allergic/Immunologic ED: Denies mouth swelling or urticaria EXAM Physical Exam Const Vital Signs: 09/03/24 16:13 09/03/24 18:06 Temperature 96.7 F L Temperature Source Temporal Pulse Rate 89 87 Respiratory Rate 16 16 Blood Pressure 168/90 H 149/86 H Blood Pressure Mean 116 107 Pulse Ox 98 97 Oxygen Delivery Method Room Air Room Air Positive well nourished and well developed General Appearance ED: well developed and NAD HEENT Reports normocephalic and moist mucous membranes atraumatic Neck supple and no JVD Resp normal respiratory effort and clear to auscultation bilaterally Cardio regular rate and regular rhythm GI non-tender and non-distended Palpation: soft Extremity normal to inspection and full ROM General Extremety ED: Negative for edema or tenderness General Extremity: Negative for edema Neuro oriented x3, CN's II-XII intact bilaterally and no sensory deficits noted Too Coma Scale: document GCS findings Spontaneous Obeys Commands Oriented 15 Sensorium / Orientation: awake and alert Speech: speech normal Motor Exam: strength 5/5 throughout Psych mental status grossly normal MDM MDM MDM Narrative Medical decision making narrative: Differential diagnose includes migraine headache, intracranial bleeding, and tension. CT of the brain will be ordered to assess for intracranial bleeding. Radiography Diagnostic Testing: Clinical Impression(s) from Imaging Studies Brain CT 09/03/24 17:11 IMPRESSION: Normal unenhanced CT scan of the brain. Electronically Signed: Karri Velasco MD at 17:59 EDT , CT scan of the brain was obtained. There is no acute intracranial abnormality. This was interpreted by the radiologist and was also independently reviewed by myself. Treatment and Re-Evaluation Narrative: Patient was given IV fluids and Reglan. Patient was feeling better on reevaluation. Patient was advised of her findings. Patient was instructed to rest in the dark quiet room. Patient was instructed to follow-up with her primary care physician in 5 to 7 days. Patient understood and was agreeable with our plan. All questions were answered. Discharge Plan Triage Chief Complaint: Headache ED Provider: Mook Suárez Dx/Rx/DC Orders Clinical Impression: Headache, migraine, Elevated blood pressure reading Instructions: ED, Migraine (Classical) Prescriptions: No Action aspirin [Adult Aspirin Regimen] 81 mg tablet,delayed release (DR/EC) 81 mg PO DAILY Qty: 30 11RF atorvastatin 20 mg tablet 20 mg PO DAILY Qty: 90 3RF desog-e.estradiol/e.estradiol 1 EACH tablet 2 mg PO DAILY Patient Comments: hormones bupropion HCl 100 mg tablet 100 mg PO DAILY Patient Comments: mood quetiapine 25 MG tablet 50 mg PO QHS trazodone 50 mg tablet 25 mg PO QHS lamotrigine [Lamictal] 200 mg tablet 200 mg PO QHS Patient Comments: take 1 tablet by mouth once daily desvenlafaxine succinate [Pristiq] 25 mg tablet extended release 24 hr 50 mg PO DAILY Patient Comments: take 1 tablet by mouth once daily ondansetron [ondansetron] 4 mg tablet,disintegrating 4 mg PO Q8H PRN PRN (Reason: Nausea) Qty: 10 0RF dicyclomine 20 mg tablet 10 mg PO TID PRN (Reason: abdominal pain/cramps) Qty: 30 2RF lansoprazole 30 mg capsule,delayed release(DR/EC) 30 mg PO DAILY Qty: 60 3RF Primary Care Provider: Sumanth Krause Referrals: Sumanth Krause MD [Primary Care Provider] - 5-7 Days Print Language: Mongolian Disposition Disposition: Home, Self Care
[2024-09-03 19:04] VITALS: BP 141/83; PULSE 77; RESP 16; TEMP 36.6; O2SAT 97
== END 2024-09-03 19:10 | disposition home or self-care (01) ==
PROVIDERS: Emergency Provider Emergency Medicine; PCP Family Medicine; Visit Provider Emergency Medicine
DX: G43.909 Migraine, unspecified, not intractable, without status migrainosus (principal); R03.0 Elevated blood-pressure reading, without diagnosis of hypertension; I25.10 Atherosclerotic heart disease of native coronary artery without angina pectoris; I25.2 Old myocardial infarction; Z79.82 Long term (current) use of aspirin; Z79.899 Other long term (current) drug therapy; Z90.710 Acquired absence of both cervix and uterus
CPT/HCPCS: 70450; 96361; 96374; 99283; J7030

== ENCOUNTER → 2024-12-14 | Outpatient (CLI) | payer BC, SELFPAY ==
[2024-12-14 15:46] LABS: AST(SGOT) 18 U/L (15-37); Alanine Aminotransfer ALT/SGPT 24 U/L (13-56); Albumin, Serum 3.8 g/dL (3.2-5.0); Alkaline Phosphatase 134 U/L (45-117); Bilirubin, Direct 0.17 mg/dL (0.00-0.30); Cholesterol 175 mg/dL (200); High Density Lipoprotein 83 mg/dL; Protein, Total 7.8 g/dL (6.4-8.2); Triglycerides 91 mg/dL; Very Low Density Lipoprotein 18 mg/dL (5-40)
== END | disposition home or self-care (01) ==
LOC: MTLAB 12:41
PROVIDERS: PCP Family Medicine; Referring Provider Nurse Practitioner Family; Visit Provider Nurse Practitioner Family
DX: I25.10 Atherosclerotic heart disease of native coronary artery without angina pectoris (principal)
CPT/HCPCS: 36415; 80061; 80076

== ENCOUNTER 2024-12-22 09:49 | Emergency (ER) | payer BC, SELFPAY ==
[2024-12-22] VITALS (9 sets, daily range): BP systolic 142–157; BP diastolic 75–99; PULSE 72–101; RESP 16–19; TEMP 36.6–37.2; O2SAT 97–99; BMI 23.0
--- NOTE | 2024-12-22 10:29 | EKG12_ITS ---
Test Reason : CHEST PRESSUER Blood Pressure : */* mmHG Vent. Rate : 83 BPM Atrial Rate : 83 BPM P-R Int : 176 ms QRS Dur : 70 ms QT Int : 376 ms P-R-T Axes : 81 57 79 degrees QTcB Int : 441 ms Normal sinus rhythm Normal ECG Confirmed by PIPE HERNÁNDEZ, RACHEL ([id number]), editor dictionary JAYLON JASON ([id number]) on 12/23/2024 6:57:31 AM Referred By: Confirmed By: RACHEL BETANCUR MD
--- NOTE | 2024-12-22 10:38 | ED.VIS.CHEST ---
HPI History of Present Illness Chief Complaint: Shortness of Breath Informant: patient Narrative Narrative: Patient is a 54-year-old female with history nonobstructive atherosclerosis of coronary artery, nonalcoholic fatty liver disease, anxiety and bipolar disorder presenting with chest discomfort and tightness. She states it started last night. She texted her daughter about it who is a nurse that it might be anxiety. She states she woke up and it was still there. States last night deep breathing was helping. This morning though she feels a little short of breath. This morning with walking she felt more short of breath. She called her assistant real estate manager office who said they will get back to her within 24 hours. Then called her primary care doctor who said go to the emergency room. Patient denies any associated leg swelling, history of DVT or PE. She denies any recent URI symptoms or fever. She denies any nausea, vomiting or diarrhea. Denies any sweating, abdominal pain or urinary symptoms. Did not have her morning aspirin. Notes her blood pressure was high at home (167/112). States that she has had a cath in the past that showed a 50% occlusion and that always in the back of her mind. No other complaints or concerns reported at this time. [facility] Medical History Fatty liver Anorexia Vertigo History of diverticulitis Non-smoker Shortness of breath on exertion History of edema History of echocardiogram Cardiology follow-up encounter COVID-19 virus detected (08/29/20) Nonobstructive atherosclerosis of coronary artery NSTEMI, initial episode of care (10/07/21) Elevated troponin level Degenerative disc disease, cervical Cervical radiculopathy Depression GERD (gastroesophageal reflux disease) Epigastric abdominal pain Frequent headaches Anxiety Bipolar disease, chronic Home Medications ?Medication ?Instructions ?Recorded ?Last Taken ?Type lamotrigine 200 mg tablet 200 mg PO QHS 04/14/21 10/29/21 History (Lamictal) ondansetron 4 mg disintegrating 4 mg PO Q8H PRN PRN Nausea #10 tabs 10/30/23 Unknown Rx tablet aspirin 81 mg tablet,delayed 81 mg PO DAILY #30 tabs 03/02/24 Unknown Rx release (Adult Aspirin Regimen) atorvastatin 20 mg tablet 20 mg PO DAILY #90 tabs 03/02/24 Unknown Rx bupropion HCl 100 mg tablet,12 hr 100 mg PO QAM 11/18/24 Unknown History sustained-release desvenlafaxine succinate 100 mg 100 mg PO QDAY 11/18/24 Unknown History tablet,extended release 24 hr (Pristiq) estradiol 2 mg tablet 1 mg PO QDAY 11/18/24 Unknown History ipratropium bromide 21 mcg (0.03 intranasal 11/18/24 Unknown History %) nasal spray mesalamine 1,000 mg rectal 1,000 mg TN QHS 11/18/24 Unknown History suppository neomycin 3.5 mg/g-polymyxin B ophthalmic (eye) 11/18/24 Unknown History 10,000 unit/g-dexameth 0.1 % eye oint oxybutynin chloride 5 mg 5 mg PO QDAY 11/18/24 Unknown History tablet,extended release 24 hr quetiapine 50 mg tablet 50 mg PO QHS 11/18/24 Unknown History trazodone 50 mg tablet 50 mg PO QHS 11/18/24 Unknown History lansoprazole 30 mg capsule,delayed 30 mg PO DAILY #60 caps 12/03/24 Unknown Rx release Allergy/AdvReac Type Severity Reaction Status Date / Time verapamil Allergy Mild Rash Verified 12/22/24 09:50 amoxicillin (Amoxicillin) Allergy Hives Verified 12/22/24 09:50 sulfamethoxazole (From Allergy Rash Verified 12/22/24 09:50 Septra) trimethoprim (From Septra) Allergy Rash Verified 12/22/24 09:50 diphenhydramine (From AdvReac Other Verified 12/22/24 09:50 Benadryl) moxifloxacin (From Avelox) AdvReac NEEDS Verified 12/22/24 09:50 FOLLOW-UP olanzapine (From Zyprexa) AdvReac Unknown Verified 12/22/24 09:50 oxcarbazepine (From AdvReac Unknown Verified 12/22/24 09:50 Trileptal) sumatriptan (From Imitrex) AdvReac Other Verified 12/22/24 09:50 zolmitriptan (From Zomig) AdvReac Unknown Verified 12/22/24 09:50 Family History Mother CVA (cerebral vascular accident) Surgical History H/O eye surgery History of nasal septoplasty History of tonsillectomy and adenoidectomy History of hysterectomy History of cholecystectomy History of carpal tunnel release History of left heart catheterization (10/08/21) Social History household members: spouse Smoking Status: Never smoker alcohol intake: never substance use type: does not use caffeine: Yes Type: coffee ROS ROS ED Constitutional Constitutional ED: Denies chills or fever(s) ENT ENT ED: Denies rhinorrhea or sore throat Cardiovascular Cardiovascular: Reports as per HPI and chest pain; Denies palpitations Respiratory/Chest Respiratory/Chest: Reports dyspnea and dyspnea on exertion; Denies cough or sputum Gastrointestinal Gastrointestinal: Denies abdominal pain, diarrhea, nausea or vomiting Genitourinary Genitourinary ED: Denies dysuria or urinary frequency Musculoskeletal Musculoskeletal: Denies arthralgias or myalgias Integumentary Denies rash Neurologic Neurologic: Denies weakness Psychiatric Psychiatric: Reports anxiety Hematologic/Lymphatic Hematologic/Lymphatic: Denies easy bleeding or easy bruising EXAM Physical Exam Const Vital Signs: 12/22/24 09:50 12/22/24 10:00 12/22/24 10:02 Temperature 98.9 F 98.9 F Temperature Source Oral Oral Pulse Rate 101 H 101 H Respiratory Rate 18 18 Respiratory Effort Normal Non-Labored Respiratory Depth Normal Respiratory Pattern Normal Blood Pressure 146/99 H 146/99 H Blood Pressure Mean 114 114 Pulse Ox 98 98 Oxygen Delivery Method Room Air Room Air Room Air 12/22/24 10:43 12/22/24 11:00 12/22/24 12:00 Temperature 98.9 F 98.9 F Temperature Source Oral Oral Pulse Rate 78 78 Respiratory Rate 16 18 Respiratory Effort Respiratory Depth Respiratory Pattern Blood Pressure 143/93 H 142/78 H Blood Pressure Mean 109 99 Pulse Ox 98 98 Oxygen Delivery Method Room Air Room Air Room Air 12/22/24 13:00 12/22/24 14:00 12/22/24 14:48 Temperature 98.7 F 98 F Temperature Source Oral Pulse Rate 72 89 79 Respiratory Rate 16 16 16 Respiratory Effort Respiratory Depth Respiratory Pattern Blood Pressure 149/75 H 142/78 H 155/94 H Blood Pressure Mean 99 99 114 Pulse Ox 99 98 97 Oxygen Delivery Method Room Air Room Air 12/22/24 15:00 Temperature Temperature Source Pulse Rate 87 Respiratory Rate 19 H Respiratory Effort Respiratory Depth Respiratory Pattern Blood Pressure 157/95 H Blood Pressure Mean 115 Pulse Ox 99 Oxygen Delivery Method Positive well nourished and well developed General Appearance ED: well developed and NAD HEENT Reports moist mucous membranes normocephalic and atraumatic Neck supple and no JVD Chest Wall inspection of chest normal and palpation of chest normal Chest: Negative for tenderness Resp normal respiratory effort and clear to auscultation bilaterally Effort and Inspection: Negative for respiratory distress Auscultation: Negative for diminished lung sounds Cardio regular rate, regular rhythm and no murmurs Peripheral Pulses: pulses 2+ throughout, radial pulses present and dorsalis pedis pulses present GI normal to inspection, nondistended, normoactive bowel sounds, soft to palpation and non-tender Extremity normal to inspection General Extremety ED: Negative for edema General Extremity: Negative for edema Neuro oriented x3 Sensorium / Orientation: awake Motor Exam: Negative for general weakness Psych mental status grossly normal Mood & Affect: anxious Skin no rashes or lesions noted and no wounds Heart Score History: Slightly/Non-Suspicious ECG: Normal Age: >45 - <65 years Risk Factors: >/= 3 Risk Factors or History of CAD Troponin: >/=3 x Normal Limit Score: 5 MDM MDM MDM Narrative Medical decision making narrative: Patient is evaluated for chest pressure and shortness of breath. Does have a history of some mild luminal irregularities of her mid LAD, hypertension and a strong family history of cardiac disease. Differential includes ACS, pericarditis, pericardial effusion, pulmonary emboli, pneumonia, pleural effusion and anxiety. Patient was offered nitroglycerin but states its made her pain worse in the past. As she suspected this could be anxiety related will give a small dose of Ativan to see if this improves. Is also given full dose aspirin in the emergency room. Cardiology visit from 11/18/2024 reviewed. Patient has history of chest pain and had a cardiac catheterization on 10/07/2021 which showed normal coronary arteries and intramyocardial bridging of the LAD. Echo was performed which showed normal LV size and systolic function with estimated EF of 60% with stage II diastolic dysfunction. They are continuing medical management at this time with lifestyle changes, 81 mg aspirin and atorvastatin 20 mg. Patient's workup shows a mild elevation of his high sensitive troponin at 76. Is otherwise normal. Is given dose and Ativan with some improvement of her shortness of breath/chest tightness. She remains hemodynamically stable in this emergency room. Of note patient is high since he troponins were higher than this in 2020 and 2021 suspect she has some chronic elevation. High sensitivity troponins are trended x 2 and they are downtrending 70 and 68. Case discussed with cardiology, Dr. Soares, who feels that this pain is atypical and that workup is reassuring and can be discharged home. Patient will be discharged home with outpatient follow-up. Lab Data Attestation: I reviewed the patient's lab results. Labs: Laboratory Results - last 24 hr 12/22/24 12/22/24 12/22/24 10:08 13:10 15:15 WBC 5.7 RBC 4.73 Hgb 13.5 Hct 40.2 MCV 85.0 MCH 28.5 MCHC 33.6 RDW Std Deviation 37.6 RDW Coeff of Stella 12.2 Plt Count 252 MPV 8.8 Immature Gran % (Auto) 0.400 Neut % (Auto) 45.3 L Lymph % (Auto) 37.0 Meigs % (Auto) 9.9 Eos % (Auto) 6.2 H Baso % (Auto) 1.2 H Absolute Neuts (auto) 2.6 Absolute Lymphs (auto) 2.09 Nucleated RBC % 0 D-Dimer Quant (PE/DVT) 0.27 Sodium 139 Potassium 3.7 Chloride 102 Carbon Dioxide 31.0 Anion Gap 6 BUN 16 Creatinine 0.95 Estim Creat Clear Calc 56.00 Est GFR (MDRD) Af Amer 79 Est GFR (MDRD) Non-Af 65 BUN/Creatinine Ratio 16.9 Glucose 116 H Calcium 9.2 Troponin I High Sens 76 H 70 H 68 H Radiography Diagnostic Testing: Clinical Impression(s) from Imaging Studies Chest X-Ray 12/22/24 10:55 IMPRESSION: No acute cardiopulmonary process. Reading Location: [facility] Rhythm Strip Rhythm Strip: Sinus Rhythm Rate: 83 Ectopy: None EKG Initial EKG: Attestation: I personally reviewed and interpreted this EKG as follows: Interpretation: Sinus Rhythm Comments: Normal sinus rhythm at a rate of 83 bpm Normal axis Normal intervals Normal ST segments Management Discussion w/another healthcare provider: Candy Counter Clerk Discharge Plan Triage Chief Complaint: Shortness of Breath ED Provider: Carolyn Bower Dx/Rx/DC Orders Clinical Impression: Chest tightness Instructions: ED Chest Pain, Uncertain Cause Prescriptions: No Action aspirin [Adult Aspirin Regimen] 81 mg tablet,delayed release (DR/EC) 81 mg PO DAILY Qty: 30 11RF atorvastatin 20 mg tablet 20 mg PO DAILY Qty: 90 3RF bupropion HCl 100 mg tablet sustained-release 12 hr 100 mg PO QAM quetiapine 50 mg tablet 50 mg PO QHS desvenlafaxine succinate [Pristiq] 100 mg tablet extended release 24 hr 100 mg PO QDAY oxybutynin chloride 5 mg tablet extended release 24hr 5 mg PO QDAY estradiol 2 mg tablet 1 mg PO QDAY ipratropium bromide 21 mcg (0.03 %) spray,non-aerosol intranasal Patient Comments: [NO ORIGINAL SIG] neomycin-polymyxin B-dexameth 3.5 mg/g-10,000 unit/g-0.1 % ointment ophthalmic (eye) Patient Comments: [NO ORIGINAL SIG] mesalamine 1,000 mg suppository 1,000 mg TN QHS trazodone 50 mg tablet 50 mg PO QHS lamotrigine [Lamictal] 200 mg tablet 200 mg PO QHS Patient Comments: take 1 tablet by mouth once daily ondansetron [ondansetron] 4 mg tablet,disintegrating 4 mg PO Q8H PRN PRN (Reason: Nausea) Qty: 10 0RF lansoprazole 30 mg capsule,delayed release(DR/EC) 30 mg PO DAILY Qty: 60 0RF Primary Care Provider: Sumanth Krause Referrals: Germain Soares MD [Med Staff - Active Staff] - Sumanth Krause MD [Primary Care Provider] - Activity Restrictions/Additional Instructions: Your workup today was largely reassuring. No signs of a blood clot in the lungs. No signs of an acute heart attack. Your EKG was normal. Your blood work for your heart was stable and consistent with your prior labs. The exact cause of your symptoms is not clear however this time I feel that you are stable for outpatient follow-up. Please follow-up primary care doctor as well as cardiology for further outpatient testing. Please return if you have a progression worsening your symptoms. Print Language: Danish Disposition Disposition: Home, Self Care
[2024-12-22] MEDS: LORazepam 2 MG/ML Syringe 0.5 MG IV (10:40)
[2024-12-22] MEDS: Aspirin 81 MG TAB.CHEW 324 MG PO (10:40)
--- NOTE | 2024-12-22 10:55 | RAD_ITS ---
EXAM: XR Chest, 2 Views CLINICAL INDICATION: TECHNIQUE: Frontal and lateral views of the chest. COMPARISON: No relevant prior studies available. FINDINGS: LUNGS AND PLEURAL SPACES: Unremarkable. No consolidation. No pneumothorax. HEART: Unremarkable. No cardiomegaly. MEDIASTINUM: Unremarkable. Normal mediastinal contour. BONES/JOINTS: Unremarkable. No acute fracture. RAD/Chest PA and Lateral IMPRESSION: No acute cardiopulmonary process. Reading [facility]
[2024-12-22 10:58] LABS: Absolute Lymphocyte Count 2.09 X10^3/uL (0.83-4.51); Absolute Neutrophil Count 2.6 X10^3/uL (2.0-7.7); Basophil# 0.07 X10^3/uL; Basophil% 1.2 % (0-1); Eosinophil# 0.35 X10^3/uL; Eosinophils% 6.2 % (0-5); Hematocrit 40.2 % (37-47); Hemoglobin 13.5 g/dL (12.0-15.0); Lymphocyte # 2.09 X10^3/ul (0.83-4.51); Mean Corp Hgb Conc 33.6 g/dL (32-36); Mean Corpuscular Hgb 28.5 pg (27.0-32.0); Mean Platelet Vol. 8.8 fl (6.2-12.0); Monocyte# 0.56 X10^3/uL; Monocyte% 9.9 % (0-10); NRBC Flagged by Analyzer 0 % (0-5); Neutrophil # 2.56 X10^3/uL (2.7-7.7); Neutrophil % 45.3 % (47-70); Platelet Count 252 K/mm3 (150-450); RBC Distribution Width CV 12.2 % (11.6-14.6); RBC Distribution Width SD 37.6 fl (35.1-43.9); Red Blood Count 4.73 M/mm3 (4.2-5.4); White Blood Count 5.7 K/mm3 (4.4-11.0)
[2024-12-22 11:17] LABS: D-Dimer Quantitative (DVT/PE) 0.27 FEU/ug/m (0.27-0.49)
[2024-12-22 11:21] LABS: Anion Gap 6 (5-15); BUN 16 mg/dL (7-18); BUN/Creat Ratio 16.9 RATIO (10-20); Calcium,Total 9.2 mg/dL (8.5-10.1); Chloride 102 mmol/L (98-107); Creatinine, Serum 0.95 mg/dL (0.55-1.02); EST Glomerular Filtration Rate 65 mL/min (>60); Est Glom Filt Rate - Afr Amer 79 mL/min (>60); Glucose 116 mg/dL (74-106); Potassium 3.7 mmol/L (3.5-5.1); Sodium Level 139 mmol/L (136-145); Troponin-I HS (w/2H Reflex) 76 pg/mL (3.0-54.0)
[2024-12-22 12:56] LABS: Reflex Troponin-HS? (from REC) Y
[2024-12-22 13:38] LABS: Troponin-I HS 70 pg/mL (3.0-54.0)
[2024-12-22 15:47] LABS: Troponin-I HS 68 pg/mL (3.0-54.0)
== END 2024-12-22 16:38 | disposition home or self-care (01) ==
PROVIDERS: Emergency Provider Emergency Medicine; PCP Family Medicine; Visit Provider Emergency Medicine
DX: R07.89 Other chest pain (principal); F31.9 Bipolar disorder, unspecified; R06.02 Shortness of breath; I10 Essential (primary) hypertension; I25.10 Atherosclerotic heart disease of native coronary artery without angina pectoris; K76.0 Fatty (change of) liver, not elsewhere classified; F41.9 Anxiety disorder, unspecified; I25.2 Old myocardial infarction; Z79.82 Long term (current) use of aspirin; Z79.899 Other long term (current) drug therapy
CPT/HCPCS: 71046; 80048; 84484; 85025; 85379; 93005; 96374; 99284; A4216

== ENCOUNTER → 2025-03-02 | Outpatient (CLI) | payer BC, SELFPAY ==
[2025-03-02 18:52] LABS: Vitamin B12 1348 pg/mL (180-914)
== END | disposition home or self-care (01) ==
LOC: MTLAB 15:29
PROVIDERS: PCP Family Medicine; Referring Provider Family Medicine; Visit Provider Family Medicine
DX: R53.83 Other fatigue (principal)
CPT/HCPCS: 36415; 82607

== ENCOUNTER → 2025-04-06 | Outpatient (CLI) | payer BC, SELFPAY ==
--- NOTE | 2025-04-06 09:59 | RAD_ITS ---
EXAM: XR Chest, 2 Views CLINICAL INDICATION: CHEST PAIN, SOB TECHNIQUE: Frontal and lateral views of the chest. COMPARISON: No relevant prior studies available. FINDINGS: LUNGS AND PLEURAL SPACES: Pulmonary venous congestion. No consolidation. No pneumothorax. HEART: Unremarkable. No cardiomegaly. MEDIASTINUM: Unremarkable. Normal mediastinal contour. BONES/JOINTS: Unremarkable. No acute fracture. RAD/Chest PA and Lateral IMPRESSION: Pulmonary venous congestion. Reading [facility]
[2025-04-06 13:36] LABS: Absolute Lymphocyte Count 1.99 X10^3/uL (0.83-4.51); Absolute Neutrophil Count 2.2 X10^3/uL (2.0-7.7); Basophil# 0.07 X10^3/uL; Basophil% 1.4 % (0-1); Eosinophil# 0.34 X10^3/uL; Eosinophils% 6.6 % (0-5); Hematocrit 38.4 % (37-47); Hemoglobin 12.9 g/dL (12.0-15.0); Lymphocyte # 1.99 X10^3/ul (0.83-4.51); Lymphocyte % 38.8 % (19-41); Mean Corp Hgb Conc 33.6 g/dL (32-36); Mean Corpuscular Hgb 28.7 pg (27.0-32.0); Mean Corpuscular Volume 85.3 fL (81-99); Mean Platelet Vol. 8.7 fl (6.2-12.0); Monocyte# 0.48 X10^3/uL; Monocyte% 9.4 % (0-10); NRBC Flagged by Analyzer 0 % (0-5); Neutrophil # 2.24 X10^3/uL (2.7-7.7); Neutrophil % 43.6 % (47-70); Platelet Count 240 K/mm3 (150-450); RBC Distribution Width CV 12.7 % (11.6-14.6); RBC Distribution Width SD 39.2 fl (35.1-43.9); White Blood Count 5.1 K/mm3 (4.4-11.0)
[2025-04-07 11:53] LABS: ALB/GLOB Ratio 1.2 RATIO (0.9-2.4); AST(SGOT) 34 U/L (<=31); Alanine Aminotransfer ALT/SGPT 32 U/L (<=34); Alkaline Phosphatase 131 U/L (35-104); Anion Gap 11 (5-15); BUN 12 mg/dL (4-19); BUN/Creat Ratio 14.6 RATIO (10-20); Calcium,Total 8.7 mg/dL (7.6-11.0); Carbon Dioxide 24.6 mmol/L (21.0-32.0); Chloride 104 mmol/L (98-108); Cholesterol 167 mg/dL (<=200); Creatinine, Serum 0.81 mg/dL (0.70-1.20); EST Glomerular Filtration Rate 87 (>60); Globulin 3.3 g/dL (2.2-4.2); Glucose 121 mg/dL (70-99); High Density Lipoprotein 57 mg/dL; Low Density Lipoprotein Calc. 81 mg/dL; Protein, Total 7.3 g/dL (5.9-8.4); Sodium Level 140 mmol/L (133-145); Total Bilirubin 0.48 mg/dL (0.00-1.30); Triglycerides 145 mg/dL; Very Low Density Lipoprotein 29 mg/dL (5-40); cholesterol:hdl ratio screen 2.91
== END | disposition home or self-care (01) ==
LOC: MTLAB 09:59
PROVIDERS: PCP Family Medicine; Referring Provider Family Medicine; Visit Provider Family Medicine
DX: R07.9 Chest pain, unspecified (principal); R06.02 Shortness of breath
CPT/HCPCS: 36415; 71046; 80053; 80061; 85025

== ENCOUNTER → 2025-04-14 | Outpatient (CLI) | payer BC, SELFPAY ==
--- NOTE | 2025-04-14 10:13 | ECHOD_ITS ---
Reason For Study Reason For Study: DYSPNEA Procedure This was a 2D Doppler, Color Flow transthoracic echocardiogram. Exam performed in department. Left Ventricle Normal LV size. Mild concentric left ventricular hypertrophy. The LV systolic function is normal. EF is 65 %. Stage 1 diastolic dysfunction. Right Ventricle Normal right ventricle. Atria The left and right atria are normal. Mitral Valve Mild diffuse mitral valve thickening. Trivial mitral valve insufficiency. Tricuspid Valve Mild tricuspid valve insufficiency. Normal pulmonary artery pressure. Aortic Valve Trisinus/trileaflet aortic valve. Pulmonic Valve The pulmonic valve is not well visualized. Great Vessels Normal sized aortic root. Pericardium/Pleural No pericardial effusion. MMode/2D Measurements & Calculations LVIDd: 3.5 cm IVSd: 1.2 cm LVOT diam: 2.0 cm LVIDs: 2.4 cm LVPWd: 1.4 cm LVOT area: 3.1 cm2 RVDd: 2.7 cm FS: 29.6 % Ao root diam: 3.3 cm LAV(MOD-bp): 31.6 ml LVAd ap4: 21.0 cm2 LAV(MOD-bp) Indexed: 19.0 ml/m2 LVLd ap4: 7.2 cm LAV(MOD-sp2): 22.3 ml EDV(MOD-sp4): 51.2 ml LAV(MOD-sp4): 42.7 ml EDV(sp4-el): 52.5 ml LVAs ap4: 11.4 cm2 LVLs ap4: 5.5 cm ESV(MOD-sp4): 20.2 ml ESV(sp4-el): 20.0 ml EF(MOD-sp4): 60.5 % EF(sp4-el): 61.8 % SV(MOD-sp4): 31.0 ml SV(sp4-el): 32.4 ml LA A4 area: 15.5 cm2 SI(MOD-sp4): 18.7 ml/m2 LA dimension(2D): 2.9 cm RA A4 area: 9.3 cm2 Time Measurements MV dec time: 0.21 sec Doppler Measurements & Calculations MV E max peter: 90.8 cm/sec Lat Peak E' Peter: 10.6 cm/sec Med Peak E' Peter: 8.6 cm/sec MV A max peter: 80.6 cm/sec E/E' lat: 8.5 E/E' med: 10.5 MV E/A: 1.1 MV V2 max: 99.4 cm/sec Ao V2 max: 112.7 cm/sec MV max P.0 mmHg MV dec slope: 435.9 cm/sec2 Ao max P.1 mmHg MV V2 mean: 59.9 cm/sec Ao V2 mean: 85.0 cm/sec MV mean P.7 mmHg Ao mean P.2 mmHg MV V2 VTI: 28.4 cm Ao V2 VTI: 25.6 cm AV (velocity ratio): 0.96 MVA(VTI): 2.7 cm2 LUNA(I,D): 3.0 cm2 LUNA(V,D): 3.1 cm2 LV V1 max: 110.8 cm/sec SV(LVOT): 77.4 ml PA V2 max: 90.7 cm/sec LV V1 max P.9 mmHg PA V2 mean: 68.8 cm/sec LV V1 mean P.9 mmHg LV V1 mean: 80.0 cm/sec LV V1 VTI: 24.7 cm TR max peter: 243.7 cm/sec TR max P.8 mmHg ECHO/Echo Complete Interpretation Summary The LV systolic function is normal. EF is 65 %. Stage 1 diastolic dysfunction. Mild diffuse mitral valve thickening. Mild tricuspid valve insufficiency. Ordering Physician: Shira Burnett Referring Physician: Shira Burnett Performed By: Veronica Hernandez and Student
== END | disposition home or self-care (01) ==
PROVIDERS: PCP Family Medicine; Referring Provider Physician Assistant Medical; Visit Provider Physician Assistant Medical
DX: R06.02 Shortness of breath (principal)
CPT/HCPCS: 93306

== ENCOUNTER → 2025-08-04 | Outpatient (CLI) | payer BC, SELFPAY ==
--- OUTSIDE RECORDS SUMMARY | 2025-08-04 06:23 | XMS RPT_ITS | CCD ---
Author Organization [facility] [place] [facility] Care Team Providers Care Industrial Cleaner Name Role Phone VARELA, SUMANTH K Unavailable Unavailable SERRI, GENEISO Unavailable Unavailable VARELA, SUMANTH K Unavailable Unavailable Varela, Sumanth H Primary Care Unavailable IMCA Admitting Unavailable SABRA, SEJAL Consulting Unavailable MANSOUR, BUSBY M Attending Unavailable MANSOUR, BUSBY M Referring Unavailable Varela, Sumanth H Primary Care Unavailable MANSOUR, BUSBY M Referring Unavailable Varela, Sumanth H Primary Care Unavailable MANSOUR, BUSBY M Referring Unavailable Varela, Sumanth H Primary Care Unavailable MANSOUR, BUSBY M Referring Unavailable Varela, Sumanth H Primary Care Unavailable MANSOUR, BUSBY M Referring Unavailable Varela, Sumanth H Primary Care Unavailable MANSOUR, BUSBY M Referring Unavailable Varela, Sumanth H Primary Care Unavailable MANSOUR, BUSBY M Referring Unavailable Varela, Sumanth H Primary Care Unavailable MANSOUR, BUSBY M Referring Unavailable Varela, Sumanth H Primary Care Unavailable MANSOUR, BUSBY M Referring Unavailable Varela, Sumanth H Primary Care Unavailable MANSOUR, BUSBY M Referring Unavailable Varela, Sumanth H Primary Care Unavailable Dr. Sumanth Krause Primary Care Provider Dr. Sumanth Krause Referring Provider Ger 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, 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 Jenelle Attending Provider FriendDr. Dior Attending Provider FriendDr. Dior Other Provider Dr. Sumanth Krause Primary Care Provider [phone] Dr. Sumanth Krause Referring Provider FriendDr. Dior Attending Provider Jose 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, 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 Kathie Moraes Attending Provider [phone] Sumanth Varela MD Primary Care Provider Sumanth Varela MD Primary Care Provider Dr. Sumanth Krause Primary Care Provider Dr. Sumanth Krause Referring Provider Dr. Ovi Rivera Attending Provider Sumanth Varela MD Primary Care Provider Dr. Sumanth Krause Primary Care Provider Dr. Sumanth Krause Referring Provider Ger 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, 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 Jenelle Attending Provider Dr. Ovi Rivera Attending Provider Dr. Sumanth Krause Primary Care Provider Dr. Sumanth Krause Referring Provider Sumanth Varela MD Primary Care Provider Dr. Sumanth Krause Primary Care Provider Dr. Sumanth Krause Referring Provider Ger ADKINS, 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 Jenelle Attending Provider Dr. Mook Acosta Attending Provider [phone] Sumanth Krause Primary Care Provider Dr. Sumanth Krause Referring Provider Dr. Hussain Bhatia Attending Provider Sumanth Varela MD Primary Care Provider Sumanth Krause MD Primary Care Provider Unavailable Primary Care Provider UnavailBARBRA Nguyen Referring Unavailable Dr. Sumanth Krause Primary Care Provider Dr. Sumanth Krause Referring Provider Ger 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, 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 Jenelle Attending Provider Dr. Mook Acosta Attending Provider [phone] Sumanth Krause MD Primary Care Provider [phone] Dr. Sumanth Krause MD Referring Provider [phone] Roof 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, Sumanth Darwin Attending Provider Roof 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, Sumanth H Referring Provider Cheli GAMING, Dr. Leon Attending Provider Dr. Carolyn Bower DO Emergency Provider Anjum 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Tierney Attending Provider Anabela HERNÁNDEZ, Dr. Sumanth Talamantes Attending Provider [phone] Anabela HERNÁNDEZ, Dr. Sumanth Talamantes Primary Care Provider Roof 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, uSmanth Granados Attending Provider Anabela HERNÁNDEZ, Dr. Sumanth Talamantes Referring Provider Anabela HERNÁNDEZ, Dr. Sumanth Talamantes Primary Care Provider [phone] Delores Peralta Attending Provider [phone] Delores Peralta Referring Provider [phone] Isaiah HERNÁNDEZ, Dr. Lutz Attending Provider Rakesh Villalobos MD, Sumanth Cortez Primary Care Provide r ALEJANDRA MEAD Attending Unavailable RAKESH JR, SUMANTH Primary Care Unavailable KACEY MEADE Attending Unavailable ALEJANDRA RICHTER Attending Unavailable FREDACSALEJANDRA MANDUJANO Attending Unavailable FREDACSALEJANDRA MANDUJANO Attending Unavailable RAKESH JR, SUMANTH Primary Care Unavailable RAKESH JR, SUMANTH Attending Unavailable RAKESH JR, SUMANTH Attending Unavailable RAKESH JR, SUMANTH Attending Unavailable KURCSALEJANDRA MANDUJANO Attending Unavailable RAKESH JR, SUMANTH Primary Care Unavailable KURCSALEJANDRA MANDUJANO Attending Unavailable RAKESH JR, SUMANTH Primary Care Unavailable RAKESH JR, SUMANTH Attending Unavailable WILLY BAUTISTA Attending Unavailable RAKESH JR, SUMANTH Attending Unavailable RAKESH JR, SUMANTH Primary Care Unavailable KACEY MEADE Attending Unavailable KURCSALEJANDRA MANDUJANO Attending Unavailable RAKESH JR, SUMANTH Primary Care Unavailable KURCSNAZIA, ALEJANDRA Attending Unavailable RAKESH JR, SUMANTH Primary Care Unavailable XUAN ECHEVARRIA Attending Unavailable FREDACSNAZIA, ALEJANDRA Attending Unavailable FREDACSNAZIA, ALEJANDRA Attending Unavailable KURCSNAZIA, ALEJANDRA Attending Unavailable KURCSALEJANDRA MANDUJANO Attending Unavailable RAKESH JR, SUMANTH Primary Care Unavailable ALEJANDRA RICHTER Attending Unavailable KACEY MEADE Attending Unavailable KRIS, ALEJANDRA Attending Unavailable KACEY MEADE Attending Unavailable KURCSAK, ALEJANDRA Attending Unavailable KURCSAK, ALEJANDRA Attending Unavailable KURCSAK, ALEJANDRA Attending Unavailable RAKESH JR, SUMANTH Primary Care Unavailable KURCSAK, ALEAJNDRA Attending Unavailable RAKESH JR, SUMANTH Primary Care Unavailable KURCSAK, ALEJANDRA Attending Unavailable RAKESH JR, SUMANTH Primary Care Unavailable KURCSAK, ALEJANDRA Attending Unavailable RAKESH JR, SUMANTH Primary Care Unavailable KURCSAK, ALEJANDRA Attending Unavailable RAKESH JR, SUMANTH Primary Care Unavailable BEN ESPAÑA Attending Unavailable RAKESH JR, SUMANTH Primary Care Unavailable KURCSAK, ALEJANDRA Attending Unavailable RAKESH JR, SUMANTH Primary Care Unavailable KURCSAK, ALEJANDRA Attending Unavailable RAKESH JR, SUMANTH Primary Care Unavailable KURCSAK, ALEJANDRA Attending Unavailable RAKESH JR, SUMANTH Primary Care Unavailable KURCSAK, ALEJANDRA Attending Unavailable RAKESH JR, SUMANTH Primary Care Unavailable KRIS, ALEJANDRA Attending Unavailable KACEY MEADE Attending Unavailable KACEY MEADE Attending Unavailable KURCSAK, ALEJANDRA Attending Unavailable RAKESH JR, SUMANTH Primary Care Unavailable RAKESH JR, SUMANTH Attending Unavailable RAKESH JR, SUMANTH Attending Unavailable XUAN ECHEVARRIA Admitting Unavailable KACEY MEADE Attending Unavailable KACEY MEADE Attending Unavailable KRIS, ALEJANDRA Attending Unavailable RAKESH JR, SUMANTH Attending Unavailable KURCSAK, ALEJANDRA Attending Unavailable RAKESH JR, SUMANTH Primary Care Unavailable KACEY MEADE Attending Unavailable RAKESH JR, SUMANTH Attending Unavailable COOK, ALEJANDRA Attending Unavailable COOK, ALEJANDRA Attending Unavailable KRIS, ALEJANDRA Attending Unavailable RAKESH JR, SUMANTH Attending Unavailable KACEY MEADE Attending Unavailable SHILOH RPAP Attending Unavailable KRIS, ALEJANDRA Attending Unavailable RAKESH JR, SUMANTH Attending Unavailable KACEY MEADE Attending Unavailable KURCSAK, ALEJANDRA Attending Unavailable RAKESH JR, SUMANTH Attending Unavailable RAKESH JR, SUMANTH Primary Care Unavailable XUAN ECHEVARRIA Attending Unavailable ALEJANDRA RICHTER Attending Unavailable ALKA SHEPPARD Attending Unavailable SANKOVIC, ROSIE Referring Unavailable SCHINNER, SUMANTH E Primary Care Unavailable ALKA SHEPPARD Attending Unavailable SANKOVIC, ROSIE Referring Unavailable SCHINNER, SUMANTH E Primary Care Unavailable ALKA SHEPPARD Attending Unavailable SANKOVIC, ROSIE Referring Unavailable SCHINNER, SUMANTH E Primary Care Unavailable ALKA SHEPPARD Attending Unavailable SANKOVIC, ROSIE Referring Unavailable SCHINNER, SUMANTH E Primary Care Unavailable ALKA SHEPPARD Attending Unavailable SANKOVIC, ROSIE Referring Unavailable SCHINNER, SUMANTH E Primary Care Unavailable ALKA SHEPPARD Attending Unavailable SANTHOMAS, ROSIE Referring Unavailable SCHINNER, SUMANTH E Primary Care Unavailable SCHINNER, SUMANTH E Primary Care Unavailable BELKIS VALDEZ Admitting Unavailable JENELLE RENEE Consulting Unavailable KATHIE OLSON Attending Unavailable ALKA SHEPPARD Attending Unavailable SANTHOMAS, ROSIE Referring Unavailable SCHINNER, SUMANTH E Primary Care Unavailable ALKA SHEPPARD Attending Unavailable SANTHOMAS, ROSIE Referring Unavailable SCHINNER, SUMANTH E Primary Care Unavailable ALKA SHEPPARD Attending Unavailable SANKOVIC, ROSIE Referring Unavailable SCHINNER, SUMANTH E Primary Care Unavailable ALKA SHEPPARD Attending Unavailable SANKOVIC, ROSIE Referring Unavailable SCHINNER, SUMANTH E Primary Care Unavailable ALKA SHEPPARD Attending Unavailable SANKOVIC, ROSIE Referring Unavailable SCHINNER, SUMANTH E Primary Care Unavailable ALKA SHEPPARD Attending Unavailable NILESH, ROSIE Referring Unavailable SCHINNER, SUMANTH E Primary Care Unavailable Tierney Valero Attending Unavailable Schinner, Sumanth E Referring Unavailable Schinner, Sumanth E Primary Care Unavailable Schinner, Sumanth E Referring Unavailable Schinner, Sumanth E Primary Care Unavailable Sumanth Mendiola NP Attending Unavailable Schinner, Sumanth E Primary Care Unavailable Nelda Colon Attending Unavailable Schinner, Sumanth E Referring Unavailable Schinner, Sumanth E Attending Unavailable Schinner, Sumanth E Primary Care Unavailable Schinner, Sumanth E Primary Care Unavailable Sumanth Mendiola NP Attending Unavailable Sumanth Mendiola NP Referring Unavailable Delores Peralta Attending Unavail able Delroes Peralta Referring Unavail able Schinner, Sumanth E Primary Care Unavailable Schinner, Sumanth E Referring Unavailable Schinner, Sumanth E Primary Care Unavailable Schinner, Sumanth E Attending Unavailable Schinner Sumanth E Attending Unavailable Schinner, Sumanth E Referring Unavailable Schinner, Sumanth E Primary Care Unavailable Mook Suárez Attending Unavailable Schinner, Sumanth E Primary Care Unavailable Schinner, Sumanth E Primary Care Unavailable Carolyn Bower Attending Unavailable SCHINNER, SUMANTH E Primary Care Unavailable ESTRELLITA FERREIRA Attending Unavailvita e SCHINSTEPHEN, SUMANTH E Primary Care Unavailable ESTRELLITA FERREIRA Referring UnavailESTRELLITA Foster Attending Unavailabl e SCHINNER, SUMANTH E Primary Care Unavailable SELF Referring Unavailable STRASBURG, ROSIE Attending Unavailable SCHINNER, SUMANTH E Primary Care Unavailable STRASBURG, ROSIE Attending Unavailable SCHINNER, SUMANTH E Primary Care Unavailable STRASBURG, ROSIE Attending Unavailable STRASBURG, ROSIE Referring Unavailable SCHINNER, SUMANTH E Primary Care Unavailable STRASBURG, ROSIE Referring Unavailable SCHINNER, SUMANTH E Referring Unavailable SCHINNER, SUMANTH E Primary Care Unavailable ESTRELLITA FERREIRA Attending Unavailabl e SCHINNER, SUMANTH E Primary Care Unavailable ESTRELLITA FERREIRA Referring Unavailabl e ESTRELLITA FERREIRA Attending Unavailabl e KATHIE FERREIRA Attending Unavailable SCHINNER, SUMANTH E Primary Care Unavailable KATHIE FERREIRA Attending Unavailable SCHINNER, SUMANTH E Primary Care Unavailable SCHINNER, SUMANTH E Primary Care Unavailable KATHIE FERREIRA Referring Unavailable SCHINNER, SUMANTH E Primary Care Unavailable STRASBURG, ROSIE Referring Unavailable SCHINNER, SUMANTH E Primary Care Unavailable ROSIE GALLOWAY Attending Unavailable SANKOVIC, ROSIE Referring Unavailable SCHINNER, SUMANTH E Primary Care Unavailable SANKOVIC, ROSIE Referring Unavailable SCHINNER, SUMANTH E Primary Care Unavailable Lizzy High Attending Unavailable SANKOVIC, ROSIE Referring Unavailable SCHINNER, SUMANTH E Primary Care Unavailable ESTRELLITA FERREIRA Referring Unavailabl e ESTRELLITA FERREIRA Attending Unavailabl e SCHINNER, SUMANTH E Primary Care Unavailable KATHIE FERREIRA Referring Unavailable STRASBURG, ROSIE Attending Unavailable SCHINNER, SUMANTH E Primary Care Unavailable STRASBURG, ROSIE Referring Unavailable STRASBURG, ROSIE Attending Unavailable SCHINNER, SUMANTH E Primary Care Unavailable ESTRELLITA FERREIRA Referring Unavailabl e Allergies Allergy Classification Reported Allergen(s) Allergy Type Date of Onset Reaction(s) Facility Anti-Epileptic Agents (2 sources) OXcarbazepine Drug Allergy 12-16-19 [facility] diphenhydrAMINE (2 sources) diphenhydrAMINE Drug Allergy 10-07-20 Other: See Comments [facility] OLANZapine (2 sources) OLANZapine Drug Allergy 12-16-19 [facility] Penicillins (antibiotic) (2 sources) Amoxicillin Drug Allergy 11-25-19 [facility] Quinolones (antibiotic) (2 sources) moxifloxacin Drug Allergy 06-04-20 [facility] Work Phone: Serotonin-1b and Serotonin-1d Receptor Agonists (2 sources) ZOLMitriptan Drug Allergy 12-16-19 [facility] Sulfamethoxazole / Trimethoprim (2 sources) Sulfamethoxazole / Trimethoprim Drug Allergy 11-25-19 [facility] Work Phone: Sulfonamides (antibiotic) (2 sources) Sulfamethoxazole Drug Allergy 11-13-20 [facility] (20 sources) Amoxicillin; Translations: [AMOXICILLIN] Drug Allergy 11-25-19 [facility] Repository (20 sources) OLANZapine; Translations: [OLANZAPINE] Drug Allergy 12-16-19 Unknown [facility] Repository (20 sources) OXcarbazepine; Translations: [OXCARBAZEPINE] Drug Allergy 12-16-19 Unknown [facility] Repository (20 sources) Sulfamethoxazole; Translations: [SULFAMETHOXAZOLE] Drug Allergy 11-13-20 [facility] Repository (20 sources) Sulfamethoxazole / Trimethoprim; Translations: [SULFAMETHOXAZOLE-T RIMETHOPRIM] Drug Allergy 11-25-19 Rash [facility] Repository (20 sources) ZOLMitriptan; Translations: [ZOLMITRIPTAN] Drug Allergy 12-16-19 Unknown [facility] Repository (1 source) OTHER; Translations: [OTHER] Propensity to adverse reactions (disorder) [facility] Repository (20 sources) GLUTEN FLOUR; Translations: [GLUTEN FLOUR] Propensity to adverse reactions (disorder) 10-21-20 Intolerance [facility] Repository (20 sources) diphenhydrAMINE; Translations: [DIPHENHYDRAMINE] Drug Allergy 10-07-20 18 Other: See Comments [facility] (20 sources) SUMAtriptan Drug Allergy 02-14-20 Shortness of breath [facility] Comment on above: PT STATES PALPITATIO NS AND GETS REALLY FLUSHED. (20 sources) Trimethoprim Drug Allergy 02-14-20 [facility] (20 sources) Verapamil Drug Allergy 02-14-20 [facility] (4 sources) AVALOX Propensity to adverse reactions 02-14-20 [facility] Work Phone: (11 sources) avalox [Other] Propensity to adverse reactions 11-26-19 [facility] Work Phone: (20 sources) moxifloxacin; Translations: [MOXIFLOXACIN] Drug Allergy 06-18-20 Hives [facility] (2 sources) diphenhydrAMINE Drug Allergy 09-17-20 Other [facility] (1 source) Mold Extract Drug Allergy 03-14-20 [facility] (1 source) Cat Dander Propensity to adverse reactions 03-14-20 [facility] (1 source) diphenhydrAMINE Drug Allergy 01-08-20 [facility] Repository (1 source) moxifloxacin Drug Allergy 01-08-20 [facility] Repository (1 source) SUMAtriptan Drug Allergy 01-08-20 [facility] Repository (1 source) Trimethoprim Drug Allergy 01-08-20 [facility] Repository (1 source) Verapamil Drug Allergy 01-08-20 [facility] Repository Medications Current Medications Medication Drug Class(es) Dates Sig (Normalized) Sig (Original) aspirin 81 mg delayed release oral tablet (20 sources) Platelet Aggregation Inhibitor, Nonsteroidal Anti-inflammatory Drug Start: 10-08-2021 End: 03-26-2025 take 1 tablet by mouth once daily aspirin, enteric coated (ASPIRIN, ENTERIC COATED) 81 mg EC tablet Take 1 tablet by mouth once daily. 30 tablet 02/24/2025 11:04 AM EDT 02/24/2025 Active Comment on above: Take by mouth. atorvastatin 20 mg oral tablet (20 sources) HMG-CoA Reductase Inhibitor Start: 10-08-2021 End: 03-09-2025 take 1 tablet by mouth once daily atorvastatin (LIPITOR) 20 mg tablet Take 20 mg by mouth once daily. 07/24/2023 Active onabotulinumtoxina 100 unt injection (20 sources) Acetylcholine Release Inhibitor Start: 04-26-2025 onabotulinum toxin type A 100 Units injection (BOTOX) Start: 04-26-2025 inject 100 [IU] by i ntramuscular injection every three months 100 Units, INTRAMUSCULAR, EVERY 3 MONTHS, First dose on Fri04/26/25 at 1630, Until Discontinued, This record documents the total dose provided to patient. See progress note for specific locations and amounts administered. REFRIGERATE - Pharmaceutical Waste: Lab Pack - Start: 01-25-2025 End: 01-25-2025 inject 1 dose by intramuscular injection every 30 days 100 Units, INTRAMUSCULAR, ONCE (UP TO 30 DAYS AMB), 1 dose, On Fri01/25/25 at 1730, This record documents the total dose provided to patient. See progress note for specific locations and amounts administered. REFRIGERATE - Pharmaceutical Waste: Lab Pack - Start: 01-25-2025 End: 01-25-2025 onabotulinum toxin type A 10 0 Units injection (BOTOX) Start: 12-17-2024 onabotulinum t oxin type A 100 Units injection (BOTOX) 12 hr buPROPion hydrochloride 100 mg extended release oral tablet (20 sources) Aminoketone Start: 08-25-2013 End: 11-18-2024 take 1 tablet by mouth once daily Bupropion Hcl 100 mg tablet Discontinued 100 mg PO DAILY August 09, 2019 1:24pm November 18, 2024 2:14pm Start: 02-08-2011 End: 09-01-2025 take 1 tablet by mouth once daily in the morning buPROPion SR (WELLBUTRIN SR) 100 mg 12 hr tablet Take 100 mg by mouth every morning. 0 02/08/2011 Active Comment on above: Take 1 tablet by randa once daily. Desog-E.Estradiol/E .Estradiol (20 sources) Progestin, Estrogen Start: 08-25-2013 take 2 mg by mouth once daily Desog-E.Estradiol/ E.Estradiol Active 2 MG PO DAILY August 25, 2013 3:35pm Start: 08-25-2013 End: 11-18-2024 Desog-E.Estradiol/E.Estradio l 1 EACH tablet Discontinued 2 mg PO DAILY August 25, 2013 12:00am November 18, 2024 2:13pm Start: 08-25-2013 take 2 mg by mouth once daily Desog-E.Estradiol/E.Estradiol Active 2 M G PO DAILY August 24, 2013 11:00pm Start: 08-25-2013 take 2 mg by mouth once daily Desog-E.Estradiol/E.Estradiol Active 2 M G PO DAILY August 25, 2013 12:00am 24 hr desvenlafaxine succinate 100 mg extended release oral tablet (20 sources) Serotonin and Norepinephrine Reuptake Inhibitor Start: 11-18-2024 End: 06-03-2025 take 1 tablet by mouth once daily desvenlafaxine (Pristiq) 100 MG 24 hr tablet Take 1 tablet (100 mg) by mouth daily. Do not crush, chew, or split. 30 tablet 2 06/03/2025 Active Start: 04-14-2021 End: 11-18-2024 Desvenlafaxine Succinate (Pr istiq) 25 mg tablet extended release 24 hr Discontinued 50 mg PO DAILY April 14, 2021 12:00am November 18, 2024 2:14pm Start: 10-24-2018 take 1 tablet by randa th once daily desvenlafaxine ER (PRISTIQ) 50 mg 24 hr tablet Take 1 tablet by mouth once daily. 10/24/2018 Active Comment on above: Take 1 tablet by randa th once daily. estradiol 0.1 mg/ml vaginal cream (20 sources) Estrogen Start: 11-18-2024 take 1 mg by mouth once daily Estradiol 2 mg tablet Active 1 mg PO daily November 18, 2024 1:00am Start: 01-28-2024 End: 01-26-2025 estradiol (ESTRACE) 0.01 % ( 0.1 mg/gram) vaginal cream APPLY A PEA SIZED AMOUNT TO LOWER VAGINA AT BEDTIME TWICE WEEKLY 43 g 01/26/2025 Active Start: 07-14-2023 End: 08-11-2024 take 1 tablet by mouth once daily estradiol (ESTRACE) 2 mg tablet Take 1 tablet by mouth once daily. 30 tablet 11 08/11/2024 Active Start: 07-03-2022 End: 01-28-2024 estradiol (ESTRACE) 0.01 % ( 0.1 mg/gram) vaginal cream APPLY A PEA SIZED AMOUNT TO LOWER VAGINA AT BEDTIME TWICE WEEKLY 42.5 g 1 08/06/2023 01/28/2024 Discontinued Start: 07-03-2022 End: 07-11-2023 take 1 tablet by mouth once daily estradiol (ESTRACE) 2 mg tablet Take 1 tablet by mouth once daily. 30 tablet 11 07/03/2022 07/11/2023 Discontinued Start: 08-03-2021 estradiol (EST RACE) 0.01 % (0.1 mg/gram) vaginal cream apply a pea-sized amount to the lower vagina at bedtime twice a week 42.5 g 1 08/03/2021 Active Start: 05-18-2021 End: 06-04-2022 take 1 tablet by mouth once daily estradiol (ESTRACE) 2 mg tablet Take 1 tablet by mouth once daily. 30 tablet 0 06/04/2022 Active take 0.5 tablet by m outh once daily estradiol (Estrace) 2 MG tablet Take 1 mg by mouth Nightly. 1/2 tablet 2 mg tablet = 1 mg Active estradiol (Estra ce) 0.1 MG/GM vaginal cream Insert 2 g into the vagina Twice a Week. Apply a pea sized amount to lower vagina - at bedtime twice weely. Active take 1 tablet by randa th once daily estradiol (ESTRACE) 1 MG tablet Take 1 tablet by mouth daily Active Comment on above: apply a pea-sized am ount to the lower vagina at bedtime twice a week Take 1 tablet by randa th once daily. APPLY A PEA SIZED AM OUNT TO LOWER VAGINA AT BEDTIME TWICE WEEKLY APPLY A PEA SIZED AM OUNT TO LOWER VAGINA AT BEDTIME TWICE WEEKLY. gabapentin 100 mg oral capsule (1 source) Anti-epileptic Agent Start: 5 End: 6 take 3 capsules by mouth once daily at bedtime gabapentin (NEURONTIN) 100 mg capsule Take 3 capsules by mouth daily at bedtime. 90 capsule 3 02/09/2025 02/09/2026 Active gabapentin in lipoderm topical cream 4% (CPD) (13 sources) gabapentin in lipoderm topical cream 4% (CPD) Apply to affected area. External use only not for vaginal/vulvar use Active Ipratropium [place] 21 mcg (0.03 %) spray,non-aerosol (3 sources) Start: 5 Ipratropium [place] 21 mcg (0.03 %) spray,non-aerosol Active INTRANASAL November 18, 2024 1:00am lamoTRIgine 25 mg oral tablet (20 sources) Mood Stabilizer, Anti-epileptic Agent Start: 5 End: 5 take 1 tablet by mouth once daily at bedtime lamoTRIgine (LAMICTAL) 25 mg tablet Take 1 tablet by mouth daily at bedtime. Take with 1 tablet of Lamotrigine 200 mg for a combined total dose of 225 mg. 30 tablet 02/24/2025 11:04 AM EDT 02/23/2025 Active Start: 04-14-2021 End: 09-01-2025 take 1 tablet by mouth once daily at bedtime lamoTRIgine (LAMICTAL) 200 mg tablet Take 1 tablet by mouth daily at bedtime. Take with 1 tablet of Lamotrigine 25 mg for combined dose of 225 mg. 30 tablet 02/24/2025 11:04 AM EDT 02/23/2025 Active Start: 10-08-2018 End: 01-02-2019 take 1 tablet by mouth twice daily Lamotrigine 100 MG tablet Discontinued 100 mg PO TWICE A DAY 60 October 08, 2018 1:00am January 02, 2019 5:18pm Start: 02-08-2011 End: 10-08-2018 take 1 tablet by mouth at bedtime Lamotrigine (Lamictal) 200 MG tablet Discontinued 200 mg PO AT BEDTIME August 25, 2013 12:00am October 08, 2018 10:18am Comment on above: Take by mouth once d aily. 200 mg daily melatonin 3 mg oral tablet (13 sources) Start: 02-24-20 End: 03-25-20 take 1 tablet by mouth once daily at bedtime melatonin 3 mg tablet Take 1 tablet by mouth daily at bedtime. Take 1-2 hours before bedtime. 30 tablet 02/23/2025 Active mesalamine 1000 mg rectal suppository (20 sources) Aminosalicylate Start: 06-06-20 End: 09-04-20 mesalamine (CANASA) 1,000 mg suppository Indications: Proctitis INSERT 1 RECTALLY ONCE DAILY AT BEDTIME 30 each 2 06/06/2025 09/04/2025 Active Start: 09-28-2024 End: 05-29-2025 mesalamine (CANASA) 1,000 mg suppository Indications: Proctitis 1 suppository by RECTAL route daily at bedtime. 30 each 2 02/28/2025 05/29/2025 Active Start: 09-06-2024 End: 10-06-2024 take 4 g rectal route every twenty-four hours as needed mesalamine (ROWASA) 4 gram/60 mL enema 60 mL by RECTAL route at bedtime as needed. 1800 mL 09/06/2024 09/28/2024 Discontinued (Changing Therapy/Dosage Form) Start: 08-26-2024 End: 09-25-2024 mesalamine (CANASA) 1,000 mg suppository Indications: Proctitis 1 Suppository by RECTAL route daily at bedtime. 30 Each 08/26/2024 09/06/2024 Discontinued (Course of therapy completed) metroNIDAZOLE 0.0075 mg/mg vaginal gel (1 source) Nitroimidazole Antimicrobial Start: 08-11-2024 End: 08-16-2024 metroNIDAZOLE (METROGEL VAGINAL) 0.75 % (37.5mg/5 gram) Vaginal Gel Use 1 Applicatorful vaginally daily at bedtime for 5 days. 70 g 08/11/2024 08/16/2024 Active ondansetron 4 mg disintegrating oral tablet (20 sources) Serotonin-3 Receptor Antagonist Start: 10-30-2023 take 1 tablet by mouth every eight hours as needed for nausea Ondansetron 4 mg tablet,disintegrat ing Active 4 mg PO EVERY 8 HOURS NEEDED as needed for Nausea October 30, 2023 1:00am Start: 06-04-2023 End: 07-17-2023 take 2 tablets by mouth every eight hours as needed for nausea Ondansetron 4 mg tablet,disintegrating Discontinued 8 mg PO EVERY 8 HOURS NEEDED as needed for Nausea June 04, 2023 12:00am July 17, 2023 2:02pm Start: 06-04-2023 End: 07-17-2023 take 8 mg by mouth every eight hours as needed Ondansetron Discontinued 8 MG PO EVERY 8 HOURS NEEDED June 03, 2023 11:00pm July 17, 2023 1:02pm Start: 01-04-2020 End: 07-17-2023 take 1 tablet by mouth every eight hours as needed for nausea and vomiting Ondansetron 4 mg tablet,disintegrating Discontinued 4 mg PO Q8H as needed for nausea and vomiting December 14, 2021 1:00am July 17, 2023 2:02pm Start: 01-04-2020 End: 08-11-2024 ondansetron orally disintegr ating (ZOFRAN ODT) 4 mg disintegrating tablet Ondansetron Ondansetron Active 4 MG EVERY 8 HOURS NEEDED January 04, 2020 3:16am 01-04-2020 [facility] ([id number]) 01/04/2020 08/11/2024 Discontinued Comment on above: Ondansetron Ondanset varinder Active 4 MG EVERY 8 HOURS NEEDED January 04, 2020 3:16am 01-04-2020 [facility] ([id number]) 24 hr oxybutynin chloride 5 mg extended release oral tablet (20 sources) Cholinergic Muscarinic Antagonist Start: 09-17-20 End: 11-12-20 take 1 tablet by mouth once daily oxybutynin XL (DITROPAN XL) 5 mg 24 hr tablet Take 1 tablet by mouth once daily. 90 tablet 3 11/12/2024 Active polyethylene glycol 3350 34774 mg powder for oral solution (1 source) Osmotic Laxative Start: 02-12-20 Polyethylene Glycol 3350 (Miralax) 17 gram Powder In Packet Active 17 GM PO DAILY February 11, 2022 2:13pm polyethylene glycol 3350 322265 mg / potassium chloride 2970 mg / sodium bicarbonate 6740 mg / sodium chloride 5860 mg / sodium sulfate 34179 mg powder for oral solution (3 sources) Osmotic Laxative Start: 02-09-20 End: 02-09-20 peg 3350-Electrolytes (GOLYTELY) 236-22.74-6.74 -5.86 gram suspension Indications: Chronic constipation Take 4,000 mL by mouth one time only for 1 dose. Refer to printed prep instructions from your provider. 4000 mL 0 02/09/2024 02/09/2024 Active Comment on above: Take 4,000 mL by randa th one time only for 1 dose. Refer to printed prep instructions from your provider. QUEtiapine 50 mg oral tablet (20 sources) Atypical Antipsychotic Start: 10-23-20 End: 09-01-20 take 1 tablet by mouth once daily at bedtime QUEtiapine (SEROQUEL) 50 mg tablet Take 1 tablet by mouth daily at bedtime. 30 tablet 10/23/2018 Active Start: 10-07-2018 End: 11-18-2024 take 2 tablets by mouth at bedtime Quetiapine 25 MG tablet Discontinued 50 mg PO AT BEDTIME October 07, 2018 1:00am November 18, 2024 2:15pm Start: 10-07-2018 take 50 mg by mouth at bedtime Quetiapine Active 50 MG PO AT BEDTIME October 07, 2018 12:00am take 1 tablet by randa th once daily QUEtiapine (SEROQUEL XR) 50 MG extended release tablet Take 1 tablet by mouth nightly Active Comment on above: Take 1 tablet by randa th daily at bedtime. simethicone 66.7 mg/ml oral suspension (15 sources) Start: 4 End: 4 take 40 mg by mouth every six hours as needed simethicone (MYLICON) 40 mg/0.6 mL oral liquid Take 0.6 mL by mouth four times a day as needed. 30 mL 1 02/09/2024 03/10/2024 Active Comment on above: Take 0.6 mL by mouth four times a day as needed. traZODone hydrochloride 50 mg oral tablet (20 sources) Serotonin Reuptake Inhibitor Start: 5 End: 5 take 1 tablet by mouth once daily traZODone (Desyrel) 50 MG tablet Take 1 tablet (50 mg) by mouth Nightly. 30 tablet 2 06/03/2025 09/01/2025 Active Start: 11-18-2024 End: 03-26-2025 take 1 tablet by mouth at bedtime Trazodone 50 mg tablet Active 50 mg PO AT BEDTIME November 18, 2024 2:15pm Start: 03-02-2024 End: 11-18-2024 Trazodone 50 mg tablet Disco ntinued 25 mg PO AT BEDTIME March 02, 2024 11:34am November 18, 2024 2:17pm Start: 08-25-2013 End: 03-02-2024 take 1 tablet by mouth at bedtime Trazodone 50 MG tablet Discontinued 50 mg PO AT BEDTIME January 03, 2020 1:00am March 02, 2024 11:34am Start: 08-25-2013 traZODone (JOSSIE YREL) 50 mg tablet traZODone Trazodone Active 50 MG AT BEDTIME January 03, 2020 10:35pm 01-03-2020 [facility] ([id number]) 08/25/2013 Active Comment on above: traZODone Trazodone Active 50 MG AT BEDTIME January 03, 2020 10:35pm 01-03-2020 [facility] ([id number]) Completed/Discontinued Medications Medication Drug Class(es) Dates Sig (Normalized) Sig (Original) acetaminophen 325 mg / HYDROcodone bitartrate 5 mg oral tablet (10 sources) Opioid Agonist Start: 06-04-2023 End: 07-17-2023 Hydrocodone-Acetami nophen 5-325 mg tablet Discontinued 1 {tbl} PO EVERY 4 HOURS NEEDED as needed for Pain 10 June 04, 2023 July 17, 2023 2:01pm Start: 06-04-2023 End: 07-17-2023 take 1 tablet by mouth every four hours as needed Hydrocodone-Acetaminophen Discontinued 1 TABLET PO EVERY 4 HOURS NEEDED 10 June 04, 2023 July 17, 2023 1:01pm azelastine hydrochloride 0.137 mg/actuat metered dose nasal spray (20 sources) Histamine-1 Receptor Antagonist Start: 12-13-2017 End: 03-31-2024 take 1 spray(s) nasal route twice daily azelastine (ASTELIN,ASTEPRO) 0.1% nasal spray [place] 1 spray into both nostrils twice a day 50 12/13/2017 03/31/2024 Discontinued (Discontinued by Patient) Comment on above: [place] 1 spray into b oth nostrils twice a day betamethasone 0.5 mg/ml / clotrimazole 10 mg/ml topical cream (8 sources) Azole Antifungal, Corticosteroid Start: 07-05-2021 End: 08-06-2023 clotrimazole-betameth asone (LOTRISONE) cream Indications: Vaginal burning Apply 1 application to affected area twice daily. 15 g 2 07/05/2021 08/06/2023 Discontinued (Other) Comment on above: Apply 1 application to affected area twice daily. Bupivacaine (4 sources) Amide Local Anesthetic Start: 04-26-2025 End: 04-26-2025 BUPivacaine HCl 50 mg injection (SENSORCAINE) Start: 04-26-2025 End: 04-26-2025 inject 1 dose by intramuscular injection once 50 mg, INTRAMUSCULAR, ONCE, 1 dose, On Fri04/26/25 at 1700 Start: 01-25-2025 End: 01-25-2025 BUPivacaine HCl 50 mg inject ion (SENSORCAINE) Start: 01-25-2025 End: 01-25-2025 inject 1 dose by intramuscular injection once 50 mg, INTRAMUSCULAR, ONCE, 1 dose, On Fri01/25/25 at 1730 calcium chloride 0.0014 meq/ml / potassium chloride 0.004 meq/ml / sodium chloride 0.103 meq/ml / sodium lactate 0.028 meq/ml injectable solution (1 source) Start: 08-17-2024 End: 08-17-2024 take 75 mL intravenously every hour 75 mL/hr, INTRAVENOUS, CONTINUOUS, Starting on Fri08/17/24 at 0900, Until Fri08/17/24 at 1006, Preprocedure ciprofloxacin 500 mg oral tablet (20 sources) Quinolone Antimicrobial Start: 08-05-2023 End: 03-31-2024 ciprofloxacin HCl (CIPRO) 500 mg tablet cyclobenzaprine hydrochloride 5 mg oral tablet (11 sources) Muscle Relaxant Start: 12-16-2024 End: 02-16-2025 cyclobenzaprine (FLEXERIL) 5 mg tablet Indications: Vulvodynia , High-tone pelvic floor dysfunction 1 tablet daily at bedtime. Use vaginally at night 30 tablet 1 12/16/2024 02/16/2025 Discontinued (Discontinued by Patient) dexamethasone 0.001 mg/mg / neomycin 0.0035 mg/mg / polymyxin b 10 unt/mg ophthalmic ointment (3 sources) Aminoglycoside Antibacterial, Polymyxin-class Antibacterial, Corticosteroid Start: 11-18-2024 End: 01-08-2025 Neomycin-Polymyxin B-Dexameth 3.5 mg/g-10,000 unit/g-0.1 % ointment Discontinued OPHTHALMIC November 18, 2024 1:00am January 08, 2025 12:09pm dexlansoprazole 60 mg delayed release oral capsule (20 sources) Proton Pump Inhibitor Start: 11-13-2011 End: 08-11-2024 Dexlansoprazole (DEXILANT) 60 mg CpDM Take by mouth. 0 11/13/2011 08/11/2024 Discontinued Comment on above: Take by mouth. diclofenac sodium 50 mg delayed release oral tablet (20 sources) Nonsteroidal Anti-inflammatory Drug Start: 04-12-2020 End: 08-11-2024 take 1 tablet by mouth twice daily as needed for headache diclofenac, EC, (VOLTAREN) 50 mg EC tablet TAKE 1 TABLET BY MOUTH TWICE DAILY NEEDED for headache 04/12/2020 08/11/2024 Discontinued Comment on above: TAKE 1 TABLET BY RANDA TWICE DAILY NEEDED for headache dicyclomine hydrochloride 20 mg oral tablet (20 sources) Anticholinergic Start: 12-05-2023 End: 11-18-2024 take 10 mg by mouth three times daily as needed for pain Dicyclomine 20 mg tablet Discontinued 10 mg PO THREE TIMES A DAY as needed for abdominal pain/cramps December 05, 2023 1:00am November 18, 2024 2:15pm Start: 12-05-2023 take 10 mg by mouth three times daily Dicyclomine Active 10 MG PO THREE TIMES A DAY December 05, 2023 12:00am Start: 07-14-2023 End: 09-08-2024 take 1 tablet by mouth three times daily dicyclomine (BENTYL) 20 mg tablet Indications: Alternating constipation and diarrhea , Anal inflammation , Abdominal cramping Take 1 tablet by mouth three times a day. 90 tablet 08/09/2024 09/08/2024 Active Start: 05-30-2023 End: 07-17-2023 take 1 capsule by mouth twice daily as needed for pain Dicyclomine 10 mg capsule Discontinued 10 mg PO TWICE A DAY as needed for abdominal pain 60 May 30, 2023 12:00am July 17, 2023 2:02pm Start: 09-23-2022 End: 01-16-2023 take 1 capsule by mouth three times daily Dicyclomine 10 mg capsule Discontinued 10 mg PO THREE TIMES A DAY September 23, 2022 1:00am January 16, 2023 2:16pm Start: 12-14-2021 End: 12-25-2021 take 1 capsule by mouth four times daily as needed Dicyclomine 10 mg capsule Discontinued 10 mg PO .QID as needed for Abdominal cramping 40 December 14, 2021 10:21pm December 25, 2021 2:10pm docusate sodium 100 mg oral capsule (20 sources) Start: 12-14-2021 End: 07-17-2023 Docusate Sodium (Colace) 100 mg capsule Discontinued 100 mg PO NEEDED as needed for Constipation February 11, 2022 2:15pm July 17, 2023 2:02pm 1 ml fentaNYL 0.05 mg/ml injection (2 sources) Opioid Agonist Start: 10-19-2024 End: 10-19-2024 INTRAVENOUS, X (OR/PROCEDURE) PRN, Starting on Fri10/19/24 at 1625, Until Fri10/19/24 at 1625, Intraprocedure Start: 08-17-2024 End: 08-17-2024 25-100 mcg, INTRAVENOUS, DIRECTED, Starting on Fri08/17/24 at 0930, Until Fri08/17/24 at 1329, DOSING DIRECTED BY PHYSICIAN FOR PROCEDURAL SEDATION ONLY, Intraprocedure hydrocortisone 25 mg/ml topical cream (10 sources) Corticosteroid Start: 08-12-2024 End: 09-11-2024 hydrocortisone (ANUSOL-HC) 2.5 % rectal cream Indications: Anal inflammation by RECTAL route two times a day. 28 g 08/12/2024 09/06/2024 Discontinued (Discontinued by Patient) Start: 08-09-2024 End: 09-08-2024 hydrocortisone (ANUSOL-HC) 2 5 mg suppository Indications: Alternating constipation and diarrhea , Anal inflammation 1 Suppository by RECTAL route every 12 hours. 60 Each 08/09/2024 09/08/2024 Active hyoscyamine sulfate 0.125 mg oral tablet (20 sources) Start: 12-17-2022 End: 01-16-2023 take 1 tablet by mouth every six hours as needed Hyoscyamine Sulfate (Levsin) 0.125 mg tablet Discontinued 0.125 mg PO EVERY 6 HOURS as needed for dyspepsia December 17, 2022 1:00am January 16, 2023 2:16pm Start: 10-14-2022 End: 01-16-2023 take 1 tablet by mouth three times daily as needed Hyoscyamine Sulfate 0.125 mg tablet Discontinued 0.125 mg PO THREE TIMES A DAY as needed for dyspepsia October 14, 2022 1:00am January 16, 2023 2:16pm Start: 12-27-2021 End: 01-31-2022 take 1 tablet by mouth three times daily as needed Hyoscyamine Sulfate (Levsin) 0.125 mg tablet Discontinued 0.125 mg PO THREE TIMES A DAY as needed for dyspepsia 90 December 27, 2021 1:00am January 31, 2022 11:57am lactulose 667 mg/ml oral solution (11 sources) Osmotic Laxative Start: 05-30-2023 End: 07-17-2023 take 10 g by mouth once daily Lactulose 10 gram/15 mL (15 mL) solution Discontinued 10 g PO DAILY 750 May 30, 2023 12:00am July 17, 2023 2:02pm Start: 04-22-2022 Lactulose Acti ve 10 GM PO DAILY 600 April 22, 2022 12:00am Take 15mL One to two times daily lansoprazole 30 mg delayed release oral capsule (20 sources) Proton Pump Inhibitor Start: 12-17-2022 End: 12-03-2024 take 1 capsule by mouth once daily Lansoprazole 30 mg capsule,delayed release(DR/EC) Discontinued 30 mg PO DAILY 60 April 25, 2024 4:32pm December 03, 2024 8:01am Start: 08-25-2013 End: 02-19-2022 Lansoprazole 30 MG capsule Discontinued 15 mg PO DAILY August 25, 2013 12:00am February 19, 2022 6:06am Start: 08-25-2013 End: 02-19-2022 take 15 mg by mouth once daily Lansoprazole Discontinu ed 15 MG PO DAILY August 24, 2013 11:00pm February 19, 2022 5:06am Comment on above: Take 30 mg by mouth once daily. linaclotide 0.072 mg oral capsule (20 sources) Guanylate Cyclase-C Agonist Start: End: take 1 capsule by mouth once daily linaCLOtide (LINZESS) 72 mcg capsule Take 1 capsule by mouth once daily. Administer on an empty stomach. Swallow whole; DO NOT crush or chew. 30 capsule 2 02/09/2024 08/11/2024 Discontinued Start: 12-05-2023 End: 12-15-2023 take 1 capsule by mouth at mealtime Linaclotide 290 mcg capsule Discontinued 290 ug PO DAILY December 05, 2023 1:00am December 15, 2023 3:01pm Take 30 minutes prior to meal. Start: 04-08-2022 End: 04-22-2022 take 1 capsule by mouth once daily 30 minutes before mealtime Linaclotide (Linzess) 145 mcg capsule Discontinued 145 ug PO DAILY April 08, 2022 12:00am April 22, 2022 4:24pm take on an empty stomach thirty minutes before a meal Comment on above: Take 1 capsule by mo [facility] once daily. Administer on an empty stomach. Swallow whole; DO NOT crush or chew. lubiprostone 0.024 mg oral capsule (12 sources) Chloride Channel Activator Start: 5 End: 5 take 1 capsule by mouth twice daily at mealtime lubiprostone (AMITIZA) 24 mcg capsule Take 1 capsule by mouth two times a day with meals. 60 capsule 2 02/16/2025 07/07/2025 Discontinued (Discontinued by Patient) magnesium citrate 58.2 mg/ml oral solution (20 sources) Start: 2 End: 2 take 1 mL by mouth once Magnesium Citrate solution Discontinued 300 mL PO ONE TIME March 16, 2022 12:00am May 03, 2022 11:29am Start: 03-16-2022 End: 05-03-2022 take 1 mL by mouth once Magnesium Citrate Discontinu ed 300 ML PO ONE TIME March 15, 2022 11:00pm May 03, 2022 10:29am meclizine hydrochloride 25 mg oral tablet (20 sources) Antiemetic Start: 10-08-2018 End: 03-31-2024 meclizine (ANTIVERT) 25 mg tab Meclizine Meclizine Hcl Active 25 MG 3 TIMES DAILY NEEDED October 08, 2018 9:18am 10-08-2018 [facility] ([id number]) 0 10/08/2018 03/31/2024 Discontinued (Discontinued by Patient) Comment on above: Meclizine Meclizine Hcl Active 25 MG 3 TIMES DAILY NEEDED October 08, 2018 9:18am 10-08-2018 [facility] ([id number]) metoclopramide 5 mg oral tablet (12 sources) Dopamine-2 Receptor Antagonist Start: 04-20-2023 End: 07-17-2023 take 1 tablet by mouth every eight hours as needed for nausea and vomiting Metoclopramide Hcl (Reglan) 5 mg tablet Discontinued 5 mg PO EVERY 8 HOURS NEEDED as needed for nausea and vomiting 05 06April 20, 2023 12:00am July 17, 2023 2:02pm 5 ml midazolam 1 mg/ml injection (2 sources) Benzodiazepine Start: 10-19-2024 End: 10-19-2024 INTRAVENOUS, X (OR/PROCEDURE) PRN, Starting on Fri10/19/24 at 1625, Until Fri10/19/24 at 1625, Intraprocedure Start: 08-17-2024 End: 08-17-2024 1-5 mg, INTRAVENOUS, DIRE CTED, Starting on Fri08/17/24 at 0930, Until Fri08/17/24 at 1329, DOSING DIRECTED BY PHYSICIAN FOR PROCEDURAL SEDATION ONLY, Intraprocedure pantoprazole 40 mg delayed release oral tablet (20 sources) Proton Pump Inhibitor Start: 09-23-2022 End: 01-16-2023 take 1 tablet by mouth once daily Pantoprazole (Protonix) 40 mg tablet,delayed release (DR/EC) Discontinued 40 mg PO DAILY November 27, 2022 7:45am January 16, 2023 2:16pm Start: 02-19-2022 End: 02-27-2022 Pantoprazole (Protonix) 40 m g tablet,delayed release (DR/EC) Discontinued 40 mg PO TWICE A DAY February 19, 2022 12:00am February 27, 2022 1:36pm Take two times a day for eight weeks then once a day. predniSONE 20 mg oral tablet (20 sources) Start: 09-23-2022 End: 11-08-2022 take 1 tablet by mouth once daily Prednisone 20 mg tablet Discontinued 20 mg PO DAILY September 23, 2022 1:00am November 08, 2022 2:54pm Start: 12-14-2021 End: 12-25-2021 take 1 tablet by mouth once daily Prednisone 10 mg tablet Discontinued 10 mg PO DAILY December 14, 2021 1:00am December 25, 2021 2:10pm promethazine hydrochloride 25 mg oral tablet (20 sources) Phenothiazine Start: 07-28-2023 End: 03-31-2024 promethazine (PHENERGAN) 25 mg tablet Start: 10-07-2018 End: 08-09-2019 take 1 tablet by mouth every four hours as needed for nausea Promethazine 25 MG tablet Discontinued 25 mg PO EVERY 4 HOURS NEEDED as needed for Nausea October 07, 2018 1:00am August 09, 2019 1:26pm sodium phosphate, dibasic 59.3 mg/ml / sodium phosphate, monobasic 161 mg/ml enema (1 source) Start: 10-19-2024 End: 10-19-2024 take 1 dose rectal route once 133 mL, RECTAL, ONCE, 1 dose, On Fri10/19/24 at 1630, FOR RECTAL USE, Preprocedure sucralfate 100 mg/ml oral suspension (17 sources) Aluminum Complex Start: 09-23-2022 End: 10-23-2022 take 1 mL by mouth three times daily Sucralfate 100 mg/mL suspension Discontinued 10 mL PO THREE TIMES A DAY September 23, 2022 1:00am October 22, 2022 1:00am October 23, 2022 1:07am Start: 02-19-2022 take 1 mL by mouth t hree times daily 1 hour(s) before mealtime Sucralfate Active 10 ML PO before meals 999February 19, 2022 6:07am take three times a day on an empty stomach one hour before meals. Separate from other medications by two hours. 24 hr divalproex sodium 500 mg extended release oral tablet (20 sources) Mood Stabilizer, Anti-epileptic Agent Start: 04-14-2021 End: 07-17-2023 take 1 tablet by mouth every twenty-four hours at bedtime Divalproex (Depakote Er) 500 mg tablet extended release 24 hr Discontinued 500 mg PO AT BEDTIME April 14, 2021 12:00am July 17, 2023 2:01pm Start: 09-29-2020 End: 10-29-2020 take 2 tablets by mouth once daily Divalproex 250 MG tablet Discontinued 500 mg PO DAILY September 29, 2020 1:00am October 28, 2020 1:00am October 29, 2020 1:03am Start: 09-29-2020 End: 10-29-2020 take 500 mg by mouth once daily Divalproex Discontinue d 500 MG PO DAILY September 29, 2020 12:00am October 29, 2020 12:03am Start: 10-23-2018 End: 08-06-2023 take 1 tablet by mouth once daily at bedtime divalproex ER (DEPAKOTE ER) 500 mg 24 hr tablet Take 1 tablet by mouth daily at bedtime. 30 tablet 0 10/23/2018 08/06/2023 Discontinued (Other) Comment on above: Take 1 tablet by randa th daily at bedtime. Problems Active Problems Problem Classification Problem Date Documented Da te Episodic/Chronic Abdominal pain (20 sources) Epigastric pain; Translations: [Epigastric pain] Onset: 6 Resolved: 3 Episodic Administrative/social admission (20 sources) Repeated prescription; Translations: [Encounter for issue of repeat prescription] 09-30-2020 Episodic Allergic reactions (1 source) Non-celiac gluten sensitivity; Translations: [Non-celiac gluten sensitivity] 07-07-2025 Chronic Anxiety disorders (18 sources) Anxiety disorder; Translations: [Other specified anxiety disorders] Onset: 5 02-23-2025 Chronic Conditions associated with dizziness or vertigo (20 sources) Vertigo; Translations: [Dizziness and giddiness] 02-27-2022 Episodic Coronary atherosclerosis and other heart disease (20 sources) Non-obstructive atherosclerosis of coronary artery; Translations: [Atherosclerotic heart disease of [place] coronary artery without angina pectoris] Onset: 5 Chronic Comment on above: Moderate luminal irr egularities up to 50%MID LAD: Intramyocardial bridging C 10/08/21 Diverticulosis and diverticulitis (20 sources) Diverticular disease; Translations: [Diverticulosis of intestine, part unspecified, without perforation or abscess without bleeding] 11-07-2021 Chronic Esophageal disorders (20 sources) Gastroesophageal reflux disease; Translations: [Gastro-esophageal reflux disease without esophagitis] Onset: 8 10-19-2018 Chronic Comment on above: CONTROLLED WITH MEDS Esophageal disorders (2 sources) Esophageal disorders Onset: 8 Gastritis and duodenitis (20 sources) Atrophic gastritis; Translations: [Chronic atrophic gastritis without bleeding] Onset: 6 Resolved: 6 09-12-2016 Chronic Gastrointestinal hemorrhage (6 sources) Rectal hemorrhage; Translations: [Hemorrhage of anus and rectum] Onset: 4 03-31-2024 Episodic Genitourinary symptoms and ill-defined conditions (5 sources) Increased frequency of urination; Translations: [Frequency of micturition] Onset: 4 09-17-2024 Episodic Headache; including migraine (20 sources) Migraine; Translations: [Migraine, unspecified, not intractable, without status migrainosus] 10-07-2018 Chronic Headache; including migraine (12 sources) Headache; Translations: [Headache] 04-20-2023 Episodic Headache; including migraine (1 source) Headache; including migraine; Translations: [Headache, unspecified] Onset: 4 Mood disorders (20 sources) Bipolar disorder; Translations: [Bipolar disorder, unspecified] Onset: 2 01-03-2012 Chronic Nonspecific chest pain (20 sources) Chest discomfort; Translations: [Other chest pain] Onset: 5 10-16-2021 Episodic Other circulatory disease (13 sources) Elevated blood pressure; Translations: [Elevated blood-pressure reading, without diagnosis of hypertension] 01-16-2023 Episodic Other connective tissue disease (12 sources) Muscle pain; Translations: [Myalgia, unspecified site] 01-16-2023 Episodic Other connective tissue disease (12 sources) Pelvic floor dysfunction; Translations: [Other specified disorders of muscle] 03-31-2024 Episodic Other connective tissue disease (1 source) Female pelvic floor dysfunction; Translations: [Other specified disorders of muscle] 09-06-2024 Episodic Other female genital disorders (20 sources) Vulvodynia; Translations: [Vulvodynia, unspecified] Onset: 4 09-29-2024 Chronic Other female genital disorders (1 source) Pain in female genitalia on intercourse; Translations: [Unspecified dyspareunia] 12-16-2024 Chronic Other female genital disorders (1 source) Vulvodynia, unspecified; Translations: [Vulvodynia] Onset: Chronic Other female genital disorders (1 source) Vaginal irritation; Translations: [Other specified noninflammatory disorders of vagina] 08-06-2023 Episodic Other female genital disorders (1 source) Burning sensation of vagina; Translations: [Other specified conditions associated with female genital organs and menstrual cycle] 09-29-2024 Episodic Other gastrointestinal disorders (4 sources) Intestinal malabsorption; Translations: [Intestinal malabsorption, unspecified] 12-15-2023 Chronic Other gastrointestinal disorders (1 source) Intestinal malabsorption, unspecified; Translations: [Unspecified intestinal malabsorption] 12-15-2023 Chronic Other gastrointestinal disorders (7 sources) Swollen abdomen; Translations: [Abdominal distension (gaseous)] 11-07-2023 Episodic Other gastrointestinal disorders (10 sources) Chronic constipation; Translations: [Other constipation] 02-09-2024 Episodic Other gastrointestinal disorders (10 sources) Abdominal bloating; Translations: [Abdominal distension (gaseous)] 02-09-2024 Episodic Other gastrointestinal disorders (1 source) Constipation alternates with diarrhea; Translations: [Other specified symptoms and signs involving the digestive system and abdomen] 08-09-2024 Episodic Other gastrointestinal disorders (1 source) Other constipation; Translations: [Chronic constipation] Onset: Episodic Other hematologic conditions (18 sources) Raised cardiac enzyme or marker; Translations: [Other specified abnormalities of plasma proteins] 06-12-2022 Episodic Other injuries and conditions due to external causes (3 sources) Injury of left foot; Translations: [Unspecified injury of left foot, initial encounter] 07-24-2024 Episodic Other liver diseases (20 sources) Steatosis of liver; Translations: [Fatty (change of) liver, not elsewhere classified] 09-23-2022 Chronic Other liver diseases (20 sources) Fatty (change of) liver, not elsewhere classified; Translations: [Other chronic nonalcoholic liver disease] Chronic Other lower respiratory disease (18 sources) Multiple nodules of lung; Translations: [Other nonspecific abnormal finding of lung field] 06-12-2022 Episodic Other lower respiratory disease (2 sources) Shortness of breath; Translations: [Shortness of breath] Onset: 5 Episodic Regional enteritis and ulcerative colitis (4 sources) 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; Translations: [Ulcerative (chronic) proctitis with rectal bleeding] Onset: 5 02-16-2025 Chronic Residual codes; unclassified (3 sources) History of eye AND/OR adnexa surgery; Translations: [Other specified postprocedural states] 11-18-2024 Episodic Spondylosis; intervertebral disc disorders; other back problems (20 sources) Cervical radiculopathy; Translations: [Radiculopathy, cervical region] 10-08-2021 Episodic Unclassified (1 source) OPENED IN ERROR 02-09-2024 Past or Other Problems Problem Classification Problem Date Documented Da te Episodic/Chronic Anal and rectal conditions (12 sources) Weak anal sphincter; Translations: [Other specified diseases of anus and rectum] Onset: 08-09-2024 02-09-2024 Episodic Biliary tract disease (20 sources) Calculus of gallbladder with cholecystitis; Translations: [Calculus of gallbladder with chronic cholecystitis without obstruction] Onset: 12-16-2005 Resolved: 02-10-2012 02-10-2012 Episodic Influenza (7 sources) Influenza due to Influenza A virus; Translations: [Influenza due to other identified influenza virus with other respiratory manifestations] Onset: 01-08-2025 01-08-2025 Episodic Lymphadenitis (20 sources) Lymphadenopathy; Translations: [Enlarged lymph nodes, unspecified] Onset: 12-20-2011 12-20-2011 Episodic Malaise and fatigue (1 source) Other fatigue; Translations: [Other fatigue] Onset: 03-10-2025 Episodic Menstrual disorders (20 sources) Menorrhagia; Translations: [Excessive and frequent menstruation with regular cycle] Onset: 06-30-2013 Resolved: 10-29-2013 10-29-2013 Chronic Miscellaneous mental health disorders (1 source) Other symptoms and signs involving emotional state; Translations: [Thoughts of self-harm] Onset: 02-18-2025 Episodic Mood disorders (1 source) Mood disorders Onset: 05-17-2025 05-17-2025 Nonmalignant breast conditions (20 sources) Pain of breast; Translations: [Mastodynia] Onset: 12-20-2011 Resolved: 02-10-2012 02-10-2012 Episodic Other circulatory disease (6 sources) Elevated blood-pressure reading, without diagnosis of hypertension; Translations: [Elevated blood pressure reading without diagnosis of hypertension] 01-16-2023 Episodic Other connective tissue disease (6 sources) Myalgia, unspecified site; Translations: [Myalgia and myositis, unspecified] 01-16-2023 Episodic Other connective tissue disease (2 sources) Other specified disorders of muscle; Translations: [Pelvic floor dysfunction] Onset: 01-25-2025 Episodic Other gastrointestinal disorders (20 sources) Constipation; Translations: [Constipation, unspecified] Onset: 07-28-2024 03-16-2022 Episodic Other gastrointestinal disorders (8 sources) Constipation, unspecified; Translations: [Constipation, unspecified] Onset: 07-28-2024 Episodic Other gastrointestinal disorders (20 sources) Diarrhea; Translations: [Diarrhea, unspecified] Onset: 08-17-2024 08-17-2024 Episodic Other gastrointestinal disorders (1 source) Abdominal distension (gaseous); Translations: [Bloating] Onset: 02-16-2025 Episodic Other gastrointestinal disorders (1 source) Diarrhea, unspecified; Translations: [Diarrhea, unspecified type] Onset: 08-17-2024 Episodic Other gastrointestinal disorders (1 source) Other specified symptoms and signs involving the digestive system and abdomen; Translations: [Alternating constipation and diarrhea] Onset: 08-09-2024 Episodic Other nervous system disorders (20 sources) Muscular incoordination; Translations: [Other lack of coordination] Onset: 03-31-2024 03-31-2024 Episodic Other nervous system disorders (1 source) Other lack of coordination; Translations: [Muscular incoordination] Onset: 03-31-2024 Episodic Other screening for suspected conditions (not mental disorders or infectious disease) (7 sources) Patient encounter status; Translations: [Encounter for screening mammogram for malignant neoplasm of breast] Onset: 08-17-2024 2023 Episodic Superficial injury; contusion (4 sources) Contusion of left foot; Translations: [Contusion of left foot, initial encounter] Onset: 02-18-2025 07-24-2024 Episodic Results Test Name Value Interpretation Reference Range Facility XR ABD 2V SUPINE W UPR/DECUB /CTLon 07-28-2025 XR ABD 2V SUPINE W UPR/DECUB/CTL * * *Final Report* * * DATE OF EXAM: Jul 28 2025 2:10PM [id number] - XR ABD 2V SUPINE W UPR/DECUB/CTL / PROCEDURE REASON: Generalized abdominal pain * * * * Physician Interpretation * * * * EXAMINATION: ABDOMINAL RADIOGRAPH Clinical History: Generalized abdominal pain M: [id number] Comparison: 02/18/2024 TECHNIQUE: Supine and upright view(s) of the abdomen RESULT: Lines, tubes, and devices: None are seen. Bowel Gas Pattern: Moderate to large amount of stool in the colon. No small bowel obstruction seen. Calcifications: No definite renal stones. Other: No additional findings IMPRESSION: Constipation is suggested Director Global Development: MARIANNE Transcribe Date/Time: Aug 02 2025 6:12P Dictated by : HARMONY MCALLISTER MD This examination was interpreted and the report reviewed and electronically signed by: HARMONY MCALLISTER MD on Aug 02 2025 6:13PM EST [id number] [facility] 07-27-2025 CNPN Telephone (GGENMN) YEUGISELA Lesa ([id number]) 1970 F Date Time Provider Department 07/27/25 ESTRELLITA FERREIRA GGENMN During your visit today, we recorded the following information about you: Rojas Roper Sebastián 07/27/2025 9:54 AM Signed Pt is having bloating and vomitting solids. Will be here today and would like to have an xray done while she is here. [phone] Jihan Espinoza RN 07/27/2025 2:08 PM Signed Called pt, got identified VM and left message that xray order there for her if can try to get done at [facility] today. Jihan Espinoza RN Allergies As of Date: 07/27/2025 Noted Allergy Reaction AMOXICILLIN 11/25/2005 4 - Hives BACTRIM (SULFAMETHOXAZOLE) 11/13/2011 2 - Rash DIPHENHYDRAMINE 10/07/2018 14 - Other: See Comments MOXIFLOXACIN 06/04/2023 4 - Hives SEPTRA (SULFAMETHOXAZOLE-TRIME THO*11/25/2005 2 - Rash TRILEPTAL (OXCARBAZEPINE) 12/16/2005 ZOMIG (ZOLMITRIPTAN) 12/16/2005 ZYPREXA (OLANZAPINE) 12/16/2005 Date Reviewed: 05/24/2025 Reviewed by: Renetta Thrasher RN - Fully Assessed Reason for Visit: Question [9001] Primary Visit Diagnosis:Generalized abdominal pain [R10.84] Order(s):XR ABDOMEN 2V ROUTINE SUPINE W UPRIGHT/DECUB/CTL [[id number]] Order #: [id number] FUTURE Prescriptions as of 07/27/2025 - mesalamine (CANASA) 1,000 mg suppository INSERT 1 RECTALLY ONCE DAILY AT BEDTIME - aspirin, enteric coated (ASPIRIN, ENTERIC COATED) 81 mg EC tablet Take 1 tablet by mouth once daily. - lamoTRIgine (LAMICTAL) 200 mg tablet Take 1 tablet by mouth daily at bedtime. Take with 1 tablet of Lamotrigine 25 mg for combined dose of 225 mg. - lamoTRIgine (LAMICTAL) 25 mg tablet Take 1 tablet by mouth daily at bedtime. Take with 1 tablet of Lamotrigine 200 mg for a combined total dose of 225 mg. - melatonin 3 mg tablet Take 1 tablet by mouth daily at bedtime. Take 1-2 hours before bedtime. - PRISTIQ 100 mg 24 hr tablet Take 100 mg by mouth once daily. - estradiol (ESTRACE) 0.01 % (0.1 mg/gram) vaginal cream APPLY A PEA SIZED AMOUNT TO LOWER VAGINA AT BEDTIME TWICE WEEKLY - oxybutynin XL (DITROPAN XL) 5 mg 24 hr tablet Take 1 tablet by mouth once daily. - atorvastatin (LIPITOR) 20 mg tablet Take 20 mg by mouth once daily. - QUEtiapine (SEROQUEL) 50 mg tablet Take 1 tablet by mouth daily at bedtime. - lansoprazole (PREVACID) 30 mg capsule Take 30 mg by mouth once daily. - buPROPion SR (WELLBUTRIN SR) 100 mg 12 hr tablet Take 100 mg by mouth every morning. Facility-Administered Medications as of 07/27/2025 - onabotulinum toxin type A 100 Units injection (BOTOX) - onabotulinum toxin type A 100 Units injection (BOTOX) Problem List As Of Date 07/27/2025 Noted Resolved Calculus of GB w/ other cystitis [K80.10] 12/16/2005 02/10/2012 Abdominal pain, unspecified site [R10.9] 12/16/2005 10/29/2013 GASTRITIS CHRONIC ATROPHIC( W/O Hemorrhage) [K2*12/20/2005 09/12/2016 Abdominal pain, right upper quadrant [R10.11] 12/20/2005 02/10/2012 Enlargement of lymph nodes [R59.9] 12/20/2011 Mastodynia [N64.4] 12/20/2011 02/10/2012 Bipolar affective [F31.9] 01/03/2012 Major depression [F32.9] 01/03/2012 Pelvic pain in female [R10.2] 06/30/2013 10/29/2013 Menorrhagia [N92.0] 06/30/2013 10/29/2013 Dysmenorrhea [N94.6] 06/30/2013 10/29/2013 Bipolar 2 disorder, major depressive episode (H*10/17/2018 Gastroesophageal reflux disease without esophag*10/19/2018 Muscular incoordination [R27.8] 03/31/2024 Constipation [K59.00] 07/28/2024 Diarrhea [R19.7] 08/17/2024 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 Author Type: Physical Therapist Type: [id number] Filed: 07/20/2025 15:59 Note Text: [facility] Physical Therapy Plan of Care Certification Patient Name: Gisela Turner : 1970 [facility]CF #: [id number] Date: 07/20/2025 To: Rosie Galloway PA-C From Therapist: Alka Sheppard PT RE: Patient Certification/ Recertification Your review, approval and electronic signature are required in order to comply with Payor: ANTHE[employer] / Plan: BLUE CARD PPO OOS / Product Type: PPO / regulations. The identified Physical Therapy PLAN OF CARE for the patient is as follows: R27.8 Muscular incoordination (primary encounter diagnosis) K59.00 Constipation, unspecified constipation type PLAN OF CARE UPDATE: Assessment: Gisela Turner demonstrates difficulty with physical activities, recreational activities, compromised bladder function, altered sexual function, and compromised bowel function due to muscle tension and spasms. The patient has progressed minimally toward goals at this time however does demonstrate benefit from manual and stretching interventions to reduce muscle spasms and pain. Patient continues to present with impairments in flexibility, independence in exercise, strength, stress management, symptom management, and tissue tenderness that interfere with bladder function, bowel function . Current prognosis is Fair due to: clinical presentation, chronic nature of impairments . The patient will benefit from continued skilled therapy services to meet the updatedgoals for this plan of care as noted below. Goals for Episode of Care: created initially on 03/31/24, updated on 06/07/2024, 06/28/2024, 07/28/2024, 09/29/2024, 11/01/2024, 12/20/2024, 01/24/2025, 03/07/2025, 04/20/2025, 07/20/2025 Patient demonstrates independence and compliance with home exercise program.- ONGOING Patient displays improved range of motion, coordination, and muscle dynamics of pelvic floor as evidenced by the ability to lengthen without paradoxical contraction at least 75% of the time to normalize bladder/bowel function; reduce pelvic pain.-GOAL MET Patient to correctly isolate pelvic floor muscles without compensatory patterns of breath holding and gluteal use to improve bladder/bowel control.-MOSTLY MET Patient reports having >4 bowel movements per week without use of enema, suppositories, and reduced need for supplementation to demonstrate improved bowel function.-GOAL MET, previously Patient reports increased water intake to >50 ounces/day to promote bladder and bowel health.-MOSTLY MET, previously Patient demonstrates ability to perform diaphragmatic breathing and relaxation practice independently to allow for decreased muscle tightness, decreased pain, and improved bladder/bowel function. -PROGRESSING, ongoing Patient will report 95% reduction in vaginal pain/burning within 12 weeks to enhance quality of life.- PROGRESSING, not met, better after botox and manual interventions Patient will report 0-1/10 pain with vaginal penetration within 12 weeks to improve tolerance for internal medical exams and sexual function - PROGRESSING Patient Goals: improve evacuation and defecation, reduce pelvic muscle pain and burning Time Frame for Goals and Treatment : 10/18/25 Planned Interventions, Frequency, and Duration: 1x every other week, 8 weeks Total Number of Visits Planned: 4 Patient to be seen for Therapeutic exercise (82769), Neuromuscular re-education (07842), Manual therapy (02248), Therapeutic activities (72769), Self-half-way management (63049), Patient/Family/Caregive r Education, Body Mechanics Training PLAN FOR NEXT VISIT: monitor progress post botox and manual interventions. superficial manual and external lower abdominal manual per tolerance. For further details regarding this patient refer to the Physical Therapy electronically documented visit dated 07/20/2025. Provider Attestation I have reviewed the treatment plan for Gisela Lesa Turner, CCF# [id number] for the period of 07/20/25 -- 10/18/25, established on 07/20/2025. Signature certifies the need for therapy services. Normal [facility] CNTHERAPYon 07-20-2025 CNTHERAPY OT/PT/Speech Visit (AKPTB) GISELA TURNER ([id number]) 1970 F Date Time Provider Department 07/20/25 11:30 AM ALKA SHEPPARD Date Time Provider Department Center 07/20/2025 11:30 AM [id number] SHEPPARD [facility] Reason for Visit: PT Progress Note [1596] Primary Visit Diagnosis:Muscular incoordination [R27.8] Other Visit Diagnosis:Constipation, unspecified constipation type [K59.00] Allergies As of Date: 07/20/2025 Noted Allergy Reaction AMOXICILLIN 11/25/2005 4 - Hives BACTRIM (SULFAMETHOXAZOLE) 11/13/2011 2 - Rash DIPHENHYDRAMINE 10/07/2018 14 - Other: See Comments MOXIFLOXACIN 06/04/2023 4 - Hives SEPTRA (SULFAMETHOXAZOLE-TRIME THO*11/25/2005 2 - Rash TRILEPTAL (OXCARBAZEPINE) 12/16/2005 ZOMIG (ZOLMITRIPTAN) 12/16/2005 ZYPREXA (OLANZAPINE) 12/16/2005 Date Reviewed: 05/24/2025 Reviewed by: Renetta Thrasher RN - Fully Assessed Prescriptions as of 07/20/2025 - mesalamine (CANASA) 1,000 mg suppository INSERT 1 RECTALLY ONCE DAILY AT BEDTIME - aspirin, enteric coated (ASPIRIN, ENTERIC COATED) 81 mg EC tablet Take 1 tablet by mouth once daily. - lamoTRIgine (LAMICTAL) 200 mg tablet Take 1 tablet by mouth daily at bedtime. Take with 1 tablet of Lamotrigine 25 mg for combined dose of 225 mg. - lamoTRIgine (LAMICTAL) 25 mg tablet Take 1 tablet by mouth daily at bedtime. Take with 1 tablet of Lamotrigine 200 mg for a combined total dose of 225 mg. - melatonin 3 mg tablet Take 1 tablet by mouth daily at bedtime. Take 1-2 hours before bedtime. - PRISTIQ 100 mg 24 hr tablet Take 100 mg by mouth once daily. - estradiol (ESTRACE) 0.01 % (0.1 mg/gram) vaginal cream APPLY A PEA SIZED AMOUNT TO LOWER VAGINA AT BEDTIME TWICE WEEKLY - oxybutynin XL (DITROPAN XL) 5 mg 24 hr tablet Take 1 tablet by mouth once daily. - atorvastatin (LIPITOR) 20 mg tablet Take 20 mg by mouth once daily. - QUEtiapine (SEROQUEL) 50 mg tablet Take 1 tablet by mouth daily at bedtime. - lansoprazole (PREVACID) 30 mg capsule Take 30 mg by mouth once daily. - buPROPion SR (WELLBUTRIN SR) 100 mg 12 hr tablet Take 100 mg by mouth every morning. Facility-Administered Medications as of 07/20/2025 - onabotulinum toxin type A 100 Units injection (BOTOX) - onabotulinum toxin type A 100 Units injection (BOTOX) Normal [facility] 94on 06-28-2025 94 Outpatient [facility] Group Therapy Documentation Program: Psychiatric Intensive Outpatient ProgramGroup Type: Psychiatric IOP Group Date: 06/28/2025 Facilitators[facility]adra Mead [facility] IOP Group No: 1 Start Time: 9:00 No. of Participants: 9 End Time: 9:50 Group Topic: Skill implementation Summary of Group Activity: Individual therapy- pros and cons Patient's level of participation in group process: Engaged in group process, Interactive with other group members, Appeared eager to learn/discuss group topic, and Provided support and/or feedback to others Therapeutic Intervention utilized with Patient: Systemic intervention Patient's Response to Intervention: Pt mentioned that she was using her skills, but had a hard time with her previous therapist leaving. Pt said that she was able to give her new therapist a chance and benefited by this. Mental Status Exam: Affect and Mood: appropriate Behavior: Pleasant, Cooperative, Engaging, and Interactive Cognition: Intact and Oriented X4 Additional comments: Progress Towards Goals: Moderate Next Step(s): Continue with current services Additional Comments (optional): Group No: 2 Start Time: 10:00 No. of Participants: 9 End Time: 10:50 Group Topic: Skill implementation Summary of Group Activity: Boundaries Patient's level of participation in group process: Engaged in group process, Interactive with other group members, Appeared eager to learn/discuss group topic, and Provided support and/or feedback to others Therapeutic Intervention utilized with Patient: Modeling/skills training Patient's Response to Intervention: Pt was in agreement with how much she had been changing, especially with the implementation of her boundaries. Mental Status Exam: Affect and Mood: appropriate Behavior: Pleasant, Cooperative, Engaging, and Interactive Cognition: Intact and Oriented X4 Additional comments: Progress Towards Goals: Moderate Next Step(s): Continue with current services Additional Comments (optional): Group No: 3 Start Time: 11:00 No. of Participants: 9 End Time: 11:50 Group Topic: Skill implementation Summary of Group Activity: Boundaries Patient's level of participation in group process: Engaged in group process, Interactive with other group members, Appeared eager to learn/discuss group topic, and Provided support and/or feedback to others Therapeutic Intervention utilized with Patient: Modeling/skills training Patient's Response to Intervention: Pt was graduating on this day and was able to share her perspectives and reaction to therapy. Pt said that she was grateful for her time in session. Mental Status Exam: Affect and Mood: appropriate Behavior: Pleasant, Cooperative, Engaging, and Interactive Cognition: Intact and Oriented X4 Additional comments: Progress Towards Goals: Moderate Next Step(s): Continue with current services Additional Comments (optional): Normal [facility] [id number] 06-27-2025 [id number] Pt had an excused absence on this day. Pt will return the following day for her final session. Normal [facility] Bacteria Ur Culton 5 Bacteria identified Cx Nom (U) ORGANISM ID: 1 <10,000 CFU/ml Normal urogenital ian Normal [facility] Comment on above: Performed By: #### 6 30-4 ####[facility] [id number] [address] 94on 06-24-2025 94 Outpatient [facility] Group Therapy Documentation Program: Psychiatric Intensive Outpatient ProgramGroup Type: Psychiatric IOP Group Date: 06/24/2025 Facilitators: Alejandra Mead [facility] Department: [facility] Psych IOP Group No: 1 Start Time: 9:00 No. of Participants: 10 End Time: 9:50 Group Topic: Skill implementation Summary of Group Activity: Check in; Types of boundaries Patient's level of participation in group process: Engaged in group process, Interactive with other group members, Appeared eager to learn/discuss group topic, and Provided support and/or feedback to others Therapeutic Intervention utilized with Patient: Modeling/skills training Patient's Response to Intervention: Pt said that she was comfortable with her leaving and had plans to enjoy the time he was off on a missions trip. Mental Status Exam: Affect and Mood: anxious and appropriate Behavior: Engaging and Interactive Cognition: Intact and Oriented X4 Additional comments: Progress Towards Goals: Moderate Next Step(s): Continue with current services Additional Comments (optional): Group No: 2 Start Time: 10:00 No. of Participants: 10 End Time: 10:50 Group Topic: Skill implementation Summary of Group Activity: Laurel violations Patient's level of participation in group process: Engaged in group process, Interactive with other group members, Appeared eager to learn/discuss group topic, and Provided support and/or feedback to others Therapeutic Intervention utilized with Patient: Modeling/skills training Patient's Response to Intervention: Pt said that this was a pertinent topic of hers and she was able to relate to this. Pt was able to verbalize her understanding of the material and saw some things she was doing. Mental Status Exam: Affect and Mood: anxious and depressed Behavior: Interactive Cognition: Intact and Oriented X4 Additional comments: Progress Towards Goals: Moderate Next Step(s): Continue with current services Additional Comments (optional): Group No: 3 Start Time: 11:00 No. of Participants: 10 End Time: 11:50 Group Topic: Skill implementation Summary of Group Activity: [place]urel implementation and weekend planning Patient's level of participation in group process: Engaged in group process, Interactive with other group members, Appeared eager to learn/discuss group topic, and Provided support and/or feedback to others Therapeutic Intervention utilized with Patient: Modeling/skills training Patient's Response to Intervention: Pt left twice during the session day to answer phone. Pt was continuing to pay attention and take notes all during the session. Mental Status Exam: Affect and Mood: appropriate, anxious Behavior: Cooperative Cognition: Intact and Oriented X4 Additional comments: Progress Towards Goals: Moderate Next Step(s): Continue with current services Additional Comments (optional): [facility] 94on 06-21-[address] [place] [address] Group Therapy Documentation Program: Psychiatric Intensive Outpatient ProgramGroup Type: Psychiatric IOP Group Date: 06/21/2025 Facilitators: Alejandra Mead [facility] Department: [facility] Psych IOP Group No: 1 Start Time: 9:00 No. of Participants: 9 End Time: :50 Group Topic: Skill implementation Summary of Group Activity: Rumination; hindsight bias Patient's level of participation in group process: Engaged in group process, Interactive with other group members, Appeared eager to learn/discuss group topic, and Provided support and/or feedback to others Therapeutic Intervention utilized with Patient: Modeling/skills training Patient's Response to Intervention: Pt shared the updates about her frustration level with her . Pt continues to put up with his comments and does not take action in standing up for herself. Pt said that she was not previously aware of the connection between activity and the mind's receptivity. Mental Status Exam: Affect and Mood: anxious and depressed Behavior: Cooperative, Engaging, and Interactive Cognition: Intact and Oriented X4 Additional comments: Progress Towards Goals: Moderate Next Step(s): Continue with current services Additional Comments (optional): Group No: 2 Start Time: 10:00 No. of Participants: 9 End Time: 10:50 Group Topic: Skill implementation Summary of Group Activity: Change, need fulfillment; negative coping skills Patient's level of participation in group process: Engaged in group process, Interactive with other group members, Appeared eager to learn/discuss group topic, and Provided support and/or feedback to others Therapeutic Intervention utilized with Patient: Modeling/skills training Patient's Response to Intervention: Pt mentioned that having therapist not leading the session would be an unwelcome change. Pt mentioned that negative coping skills could be effective until the consequence set in. Mental Status Exam: Affect and Mood: blunted Behavior: Cooperative, Engaging, and Interactive Cognition: Intact and Oriented X4 Additional comments: Progress Towards Goals: Moderate Next Step(s): Continue with current services Additional Comments (optional): Group No: 3 Start Time: 11:00 No. of Participants: 9 End Time: 11:50 Group Topic: Skill implementation Summary of Group Activity: Opposite action Patient's level of participation in group process: Engaged in group process, Interactive with other group members, Appeared eager to learn/discuss group topic, and Provided support and/or feedback to others Therapeutic Intervention utilized with Patient: Dialectical Behavioral Therapy skills (DBT) Patient's Response to Intervention: Pt said that she plans on continuing to do what her wants her to do. Pt said that she is continuing to be between her sister and her brother. Pt said that she had not had a good day before. Mental Status Exam: Affect and Mood: blunted and depressed Behavior: Cooperative, Engaging, and Interactive Cognition: Intact and Oriented X4 Additional comments: Progress Towards Goals: Moderate Next Step(s): Continue with current services Additional Comments (optional): [facility] 94on 06-20-[address] [place] [address] Group Therapy Documentation Program: Psychiatric Intensive Outpatient ProgramGroup Type: Psychiatric IOP Group Date: 06/20/2025 Facilitators: CLYDE Coombs Department: [facility] Psych IOP Group No: 1 Start Time: 9:00 No. of Participants: 9 End Time: :50 Group Topic: Skill implementation Summary of Group Activity: Check ins Patient's level of participation in group process: Engaged in group process, Interactive with other group members, Appeared eager to learn/discuss group topic, and Provided support and/or feedback to others Therapeutic Intervention utilized with Patient: Building rapport and engagement and Empathic listening Patient's Response to Intervention: Pt shared how things have been going for them since the last time that were in IOP last week. Pt shared that she was able to hold some babies and this was enjoyable. Pt said that she was frustrated with other members of her family and how they were not supportive or helpful, but were adding stress to her life. Pt said that she was looking forward to her leaving for a couple of weeks on a trip. Pt was forward thinking and planning for the future. Mental Status Exam: Affect and Mood: appropriate and depressed Behavior: Pleasant, Cooperative, Engaging, and Interactive Cognition: Intact and Oriented X4 Additional comments: Progress Towards Goals: Moderate Next Step(s): Continue with current services Additional Comments (optional): Group No: 2 Start Time: 10:00 No. of Participants: 9 End Time: 10:50 Group Topic: Skill implementation Summary of Group Activity: Pros and cons Patient's level of participation in group process: Engaged in group process, Interactive with other group members, Appeared eager to learn/discuss group topic, and Provided support and/or feedback to others Therapeutic Intervention utilized with Patient: Dialectical Behavioral Therapy skills (DBT) Patient's Response to Intervention: Pt continued to be active. Adding in her comments of the topic, pt showed that she was working to have the materials make sense to her. She continued to be engaged. Mental Status Exam: Affect and Mood: appropriate and depressed Behavior: Pleasant, Cooperative, Engaging, and Interactive Cognition: Intact and Oriented X4 Additional comments: Progress Towards Goals: Moderate Next Step(s): Continue with current services Additional Comments (optional): [facility] 94 Outpatient [facility] Group Therapy Documentation Program: Psychiatric Intensive Outpatient ProgramGroup Type: Psychiatric IOP Group Date: 06/20/2025 Facilitators: CLYDE Llanes Department: [facility] Psych IOP Group No: 3 Start Time: 11:00 AM No. of Participants: 8 End Time: 12:00 PM Group Topic: Art Therapy Summary of Group Activity: Therapist facilitated group discussion on poetry, as a healthy coping mechanism and way of expressing emotions. Therapist facilitated art intervention: Create Black Out Poetry using pages from books and mat and mount them before reading them to the group. Therapist facilitated processing written poems and completed artwork. Patient's level of participation in group process: Engaged in group process, Interactive with other group members, and Appeared eager to learn/discuss group topic Therapeutic Intervention utilized with Patient: Building rapport and engagement, Challenging, Empathic listening, Psychoeducation, Modeling/skills training, Art therapy, Expressive therapy, and [place] therapy Patient's Response to Intervention: Patient appropriately engaged in discussion of poetry as a healthy coping mechanism. Patient actively engaged in creating Black Out Poetry. Patient processed written poem and completed artwork with the group. Patient used intervention to project current situation into her poetry. Patient created a poem looking at her situation negatively. Therapist asked patient what might have happened if she had looked for the positive in her situation. Patient stated she probably would have found it. Therapist asked patient how this compared to real life. Therapist gave patient homework assignment to create another poem and to attempt to create a positive poem. Mental Status Exam: Affect and Mood: angry, appropriate, and labile Behavior: Pleasant, Cooperative, Engaging, and Interactive Cognition: Intact Additional comments: None Progress Towards Goals: Moderate Next Step(s): Continue with current services Additional Comments (optional): Patient continues to need this level of care as patient reports ongoing symptoms severity that impedes patient's ability to meet demands of ADLS. [facility] 94on 06-17-2025 94 Outpatient [facility] Group Therapy Documentation Program: Psychiatric Intensive Outpatient ProgramGroup Type: Psychiatric IOP Group Date: 06/17/2025 Facilitators: CLYDE Coombs Department: [facility] Psych IOP Group No: 1 Start Time: 9:00 No. of Participants: 9 End Time: 9:50 Group Topic: Skill implementation Summary of Group Activity: check ins Patient's level of participation in group process: Engaged in group process, Interactive with other group members, Appeared eager to learn/discuss group topic, and Provided support and/or feedback to others Therapeutic Intervention utilized with Patient: Building rapport and engagement and Empathic listening Patient's Response to Intervention: Pt shared how their week had been going and shared that it had been a rough time. Pt shared about the developments between her family members in the days following the and the stress and function that no one seems to be doing well and are not getting along. Mental Status Exam: Affect and Mood: anxious and depressed Behavior: Cooperative Cognition: Intact and Oriented X4 Additional comments: Progress Towards Goals: Moderate Next Step(s): Continue with current services Additional Comments (optional): Treatment plan reviewed and updated and PHQ-9 scores and PHILIPP-7 scores updated. Group No: 2 Start Time: 10:00 No. of Participants: 9 End Time: 10:50 Group Topic: Skill implementation Summary of Group Activity: Radical acceptance Patient's level of participation in group process: Engaged in group process Therapeutic Intervention utilized with Patient: Dialectical Behavioral Therapy skills (DBT) Patient's Response to Intervention:Pt said that she believes that radical acceptance is hard to do and explained why she thinks that this is. Pt was admitting that it can seem like using this skill is a loss of control. Pt said that it can go against typical thinking. Mental Status Exam: Affect and Mood: appropriate Behavior: Cooperative, Engaging, and Interactive Cognition: Intact and Oriented X4 Additional comments: Progress Towards Goals: Moderate Next Step(s): Continue with current services Additional Comments (optional): Group No: 3 Start Time: 11:00 No. of Participants: 9 End Time: 11:50 Group Topic: Skill implementation Summary of Group Activity: Radical acceptance and weekend planning Patient's level of participation in group process: Engaged in group process and Interactive with other group members Therapeutic Intervention utilized with Patient: Dialectical Behavioral Therapy skills (DBT) Patient's Response to Intervention: Pt said that a person can get in their own way of using this skill. Pt shared their plans for the weekend. These were to help finish cleaning at her brother's apartment. Pt was also going to volunteer at the hospital by holding babies. Mental Status Exam: Affect and Mood: anxious Behavior: Cooperative, Engaging, and Interactive Cognition: Intact and Oriented X4 Additional comments: Progress Towards Goals: Moderate Next Step(s): Continue with current services Additional Comments (optional): Pt gave therapist an exacto knife in order that she would not have it. Pt said that she was not wanting this to be a possible option for her. Pt confirmed that she was safe, know what to do if she were not feeling safe and had supports she could use. Pt said that she was interested in the boundary dialogue the next week. [facility] [id number] 06-15-2025 [id number] Recertification is required every 60 calendar days I certify that this patient would require a higher level of care if intensive outpatient program (IOP) services were not provided, that the patient needs a minimum of 9 hours of IOP services per week, that the services will be furnished under the care of a physician, and under a written plan of treatment authorized and approved by the physician. Patient Response to IOP Treatment: Improving Description of Patient Response to treatment interventions: Pt is continuing to work on boundary implementation and skill application. Patient?s psychiatric/addiction symptoms that continue to place the patient at risk of a higher level of care: Pt confirms that she continues to have suicidal thoughts. Treatment goals for coordination of services to facilitate discharge from the intensive outpatient program: Goal #1: Progressing [facility] [id number] 06-14-2025 [id number] Pt chose not to atte nd session on this day. [facility] 94on 06-13-2025 94 Outpatient [facility] Group Therapy Documentation Program: Psychiatric Intensive Outpatient ProgramGroup Type: Psychiatric IOP Group Date: 06/13/2025 Facilitators: CLYDE Llanes Department: [facility] Psych IOP Group No: 1 Start Time: 11:00 AM No. of Participants: 11 End Time: 12:00 PM Group Topic: Art Therapy Summary of Group Activity: Facilitated group re: Setting Goals via Solution Focused Therapy. Therapist facilitated processing of Taking Control of your own movie/life quotes. Therapist facilitated art therapy task: Create a Movie Sequel Stain Applicator Representing A Solution or Goals toward taking control of the original situation. Patient's level of participation in group process: Engaged in art making process, Less interactive with other group members, and Appeared eager to learn/discuss group topic Therapeutic Intervention utilized with Patient: Building rapport and engagement, Empathic listening, Psychoeducation, Modeling/skills training, Art therapy, Expressive therapy, and [place] therapy, and Solution-Focused therapy Patient's Response to Intervention: Patient actively participated in creating sequel movie travelers' aid worker. Patient processed both her movie travelers' aid worker and sequel with the group as she did not have time to do so in previous groups. Patient's original movie, Shattered, was depicted in a travelers' aid worker as a heart divided in half, with one half blue to indicate depression, and one half yellow (with a sun) and red (bleeding over) from the opposite side. Patient stated her movie was about how much her relationship was overshadowed by her and how little of a life she was able to make decisions on her own. Patients sequel, [place], depicted a beach chair on the beach in the same cors as the original. Patient stated her relief from being pressured by her spouse is to escape to the sun and be by herself. Therapist inquired how patient could do so even when she wasn't actually at the beach. Mental Status Exam: Affect and Mood: appropriate and brightens with interaction Behavior: Pleasant, Cooperative, Engaging, and Interactive Cognition: Intact Additional comments: None Progress Towards Goals: Moderate Next Step(s): Continue with current services Additional Comments (optional): Patient continues to need this level of care as patient reports ongoing symptoms severity that impedes patient's ability to meet demands of ADLS. [facility] 94 Outpatient [facility] Group Therapy Documentation Program: Psychiatric Intensive Outpatient ProgramGroup Type: Psychiatric IOP Group Date: 06/13/2025 Facilitators: Alejandra Mead [facility] Department: [facility] Psych IOP Group No: 1 Start Time: 9:00 No. of Participants: 11 End Time: 9:50 Group Topic: Skill implementation Summary of Group Activity: Check ins Patient's level of participation in group process: Engaged in group process, Interactive with other group members, Appeared eager to learn/discuss group topic, and Provided support and/or feedback to others Therapeutic Intervention utilized with Patient: Cognitive Behavioral Therapy (CBT) Patient's Response to Intervention: Pt shared how she was looking forward to time away at the beach and was continuing to deal with the loss of her and how she had to deal with fallout from his estate. Pt shared that she had been able to get some of her cleaning accomplished. Mental Status Exam: Affect and Mood: anxious and depressed Behavior: Pleasant, Cooperative, Engaging, and Interactive Cognition: Intact and Oriented X4 Additional comments: Progress Towards Goals: Moderate Next Step(s): Continue with current services Additional Comments (optional): Group No: 2 Start Time: 10:00 No. of Participants: 11 End Time: 10:50 Group Topic: Skill implementation Summary of Group Activity: Quotations on mindsets Patient's level of participation in group process: Engaged in group process, Interactive with other group members, Appeared eager to learn/discuss group topic, and Provided support and/or feedback to others Therapeutic Intervention utilized with Patient: Cognitive Behavioral Therapy (CBT) Patient's Response to Intervention: Pt said that she 100% believed in the importance of attitude on a situation. Pt was able to share about there needs to be a willingness to not feed into a mindset that it not true and one that informs of the opposite. Mental Status Exam: Affect and Mood: depressed Behavior: Pleasant, Cooperative, Engaging, and Interactive Cognition: Intact and Oriented X4 Additional comments: Progress Towards Goals: Moderate Next Step(s): Continue with current services Additional Comments (optional): Pt is not planning on graduating on 06/17 like originally planned. Pt is delaying this in agreement with staff. [facility] 94on 06-10-2025 94 Outpatient [facility] Group Therapy Documentation Program: Psychiatric Intensive Outpatient ProgramGroup Type: Psychiatric IOP Group Date: 06/10/2025 Facilitators: Alejandra Mead [facility] Department: [facility] Psych IOP Group No: 1 Start Time: 9:00 No. of Participants: 8 End Time: 9:50 Group Topic: Skill implementation Summary of Group Activity: cognitive distortions Patient's level of participation in group process: Engaged in group process, Interactive with other group members, Appeared eager to learn/discuss group topic, and Provided support and/or feedback to others Therapeutic Intervention utilized with Patient: Cognitive Behavioral Therapy (CBT) Patient's Response to Intervention: Pt and staff met on break and shared her thoughts and opinions on what was going on in her life. Pt shared that she was looking forward to her going away for an extended period on his trip. Pt was certain of her upcoming schedule, but had it that 06/17/25 would be her graduation date. Mental Status Exam: Affect and Mood: appropriate Behavior: Pleasant, Cooperative, Engaging, and Interactive Cognition: Intact and Oriented X4 Additional comments: Progress Towards Goals: Moderate Next Step(s): Continue with current services Additional Comments (optional): Group No: 2 Start Time: 10:00 No. of Participants: 8 End Time: 10:50 Group Topic: Skill implementation Summary of Group Activity: Cognitive disotrtions Patient's level of participation in group process: Engaged in group process, Interactive with other group members, Appeared eager to learn/discuss group topic, and Provided support and/or feedback to others Therapeutic Intervention utilized with Patient: Cognitive Behavioral Therapy (CBT) Patient's Response to Intervention: Pt shared that her thinking is different now and is not the same thinking that had been prevalent earlier. Pt was coloring and paying attention and was able to make references of identification. Mental Status Exam: Affect and Mood: appropriate Behavior: Pleasant, Cooperative, Engaging, and Interactive Cognition: Intact and Oriented X4 Additional comments: Progress Towards Goals: Moderate Next Step(s): Continue with current services Additional Comments (optional): Group No: 3 Start Time: 11:00 No. of Participants: 8 End Time: 11:50 Group Topic: Skill implementation Summary of Group Activity: Cognitive distortions and weekend planning Patient's level of participation in group process: Engaged in group process, Interactive with other group members, Appeared eager to learn/discuss group topic, and Provided support and/or feedback to others Therapeutic Intervention utilized with Patient: Cognitive Behavioral Therapy (CBT) Patient's Response to Intervention: Pt said that she was focusing on not personalizing as she tends to do this all the time and really struggles with it. Pt was planning to clean her kitchen floor over the weekend and do the laundry and think of fun things to do while her was away. Mental Status Exam: Affect and Mood: blunted Behavior: Pleasant, Cooperative, Engaging, and Interactive Cognition: Intact and Oriented X4 Additional comments: Progress Towards Goals: Significant Next Step(s): Continue with current services Additional Comments (optional): [facility] 94on 06-07-2025 94 Outpatient [facility] Group Therapy Documentation Program: Psychiatric Intensive Outpatient ProgramGroup Type: Psychiatric IOP Group Date: 06/07/2025 Facilitators: CLYDE Coombs Department: [facility] Psych IOP Group No: 1 Start Time: 9:00 No. of Participants: 11 End Time: 9:50 Group Topic: Skill implementation Summary of Group Activity: Mindful apps and list of activities Patient's level of participation in group process: Engaged in group process, Interactive with other group members, and Appeared eager to learn/discuss group topic Therapeutic Intervention utilized with Patient: Cognitive Behavioral Therapy (CBT) Patient's Response to Intervention: Pt gave updates about the fro her brother and how she had done attending and interacting with others who were in attendance. Pt said that she was very tired and that she was glad that it was over. Pt said that she did not want anything from him. Mental Status Exam: Affect and Mood: appropriate Behavior: Engaging Cognition: Intact and Oriented X4 Additional comments: Progress Towards Goals: Moderate Next Step(s): Continue with current services Additional Comments (optional): Group No: 2 Start Time: 10:00 No. of Participants: 11 End Time: 10:50 Group Topic: Skill implementation Summary of Group Activity: Breathing; mistaken traditional assumptions, affirmations Patient's level of participation in group process: Engaged in group process and Appeared eager to learn/discuss group topic Therapeutic Intervention utilized with Patient: Skills and tools. Patient's Response to Intervention: Pt said that she had been raised to believe that it was right and proper to put others first. Pt said that she was coming a long way in making it so that she was feeling better about putting herself first and taking care of herself. Mental Status Exam: Affect and Mood: depressed Behavior: Cooperative Cognition: Intact and Oriented X4 Additional comments: Progress Towards Goals: Moderate Next Step(s): Continue with current services Additional Comments (optional): Group No: 3 Start Time: 11:00 No. of Participants: 11 End Time: 11:50 Group Topic: Skill implementation Summary of Group Activity: Perfectionism Patient's level of participation in group process: Engaged in group process Therapeutic Intervention utilized with Patient: Cognitive Behavioral Therapy (CBT) Patient's Response to Intervention: Pt said that she believed that there is no such thing as perfect. Pt was continuing to focus on coloring during the session and said that she had been doing this while at her sister's over the weekend. Mental Status Exam: Affect and Mood: depressed Behavior: Pleasant, Cooperative, and Engaging Cognition: Intact Additional comments: Progress Towards Goals: Moderate Next Step(s): Continue with current services Additional Comments (optional): [facility] [id number] 06-06-2025 [id number] Pt was not in attendance as she was at the for her brother. [facility] 94on 06-03-2025 94 Outpatient [facility] Group Therapy Documentation Program: Psychiatric Intensive Outpatient ProgramGroup Type: Psychiatric IOP Group Date: 06/03/2025 Facilitators: CLYDE Coombs Department: [facility] Psych IOP Group No: 1 Start Time: 9:00 No. of Participants: 8 End Time: 9:50 Group Topic: Skill implementation Summary of Group Activity: Check ins; journaling Patient's level of participation in group process: Engaged in group process, Interactive with other group members, Appeared eager to learn/discuss group topic, and Provided support and/or feedback to others Therapeutic Intervention utilized with Patient: Systemic intervention Patient's Response to Intervention: Pt updated how their week has been going. Pt reported that her brother had unexpectedly and was able to express how she was responding to all the various feelings that she had. Pt was able to receive the comments and well wishes from others. Pt said that she was able to engage in the journaling. Mental Status Exam: Affect and Mood: depressed Behavior: Cooperative, Engaging, and Interactive Cognition: Intact and Oriented X4 Additional comments: Progress Towards Goals: Moderate Next Step(s): Continue with current services Additional Comments (optional): Group No: 2 Start Time: 10:00 No. of Participants: 8 End Time: 10:50 Group Topic: Skill implementation Summary of Group Activity: Guided visualization; responding to negative thoughts Patient's level of participation in group process: Engaged in group process, Interactive with other group members, Appeared eager to learn/discuss group topic, and Provided support and/or feedback to others Therapeutic Intervention utilized with Patient: Cognitive Behavioral Therapy (CBT) and Systemic intervention Patient's Response to Intervention: Pt shared that she liked being out in nature and liked them even more when she could be by herself. Pt was able to share that she liked the beach and being in the [place]. Mental Status Exam: Affect and Mood: depressed Behavior: Cooperative, Engaging, and Interactive Cognition: Intact and Oriented X4 Additional comments: Progress Towards Goals: Moderate Next Step(s): Continue with current services Additional Comments (optional): Group No: 3 Start Time: 11:00 No. of Participants: 7 End Time: 11:50 Group Topic: Skill implementation Summary of Group Activity: Positive coping thoughts; self worth; weekend planning Patient's level of participation in group process: Engaged in group process, Interactive with other group members, Appeared eager to learn/discuss group topic, and Provided support and/or feedback to others Therapeutic Intervention utilized with Patient: Cognitive Behavioral Therapy (CBT) and Systemic intervention Patient's Response to Intervention: Pt had things planned for the weekend Pt said these are to get through the weekend as she did not know what was going to be happening. Pt stayed after session to meet with doctor. Mental Status Exam: Affect and Mood: appropriate Behavior: Cooperative, Engaging, and Interactive Cognition: Intact and Oriented X4 Additional comments: Progress Towards Goals: Moderate Next Step(s): Continue with current services Additional Comments (optional): [facility] Nursing Noteon 06-03-2025 Nursing Note Gisela reports depress ion 08/26, mood is pretty sad:. Gisela admits to fleeting suicidal thoughts that come and go, suicidal thoughts to overdose or hang herself. Gisela admits suicidal thoughts are intense at times. Gisela denies suicidal intent. iGsela explains suicidal thoughts are worse since coming off Wellburtin. Gisela reports Araceli her Friend and Varinder her Roundhouse Worker are pretty supportive. Gisela states my family is always around, my , Son and Daughter. Also, Gisela's belief in God keep her safe from committing suicide. Stressors include 51 year old Brother unexpectedly and relationship issues with . Brother's viewing is Friday and is Friday. Gisela is placing boundaries with It's the first time I spoke up to him. Active listening and emotional support provided. Secure chat message sent to Dr. Echevarria - who agrees to meet with Gisela. Gisela is grateful for Dr. Echevarria and [facility] treatment team. 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 Cooperative Cognition: Intact Additional comments: Progress Towards Goals: Moderate Next Step(s): Continue with current services Additional Comments (optional): [facility] 94on 05-16-2025 94 Outpatient [facility] Group Therapy Documentation Program: Psychiatric Intensive Outpatient ProgramGroup Type: Psychiatric IOP Group Date: 05/16/2025 Facilitators: CLYDE Coombs Department: [facility] Psych IOP Group No: 1 Start Time: 9:00 No. of Participants: 10 End Time: :50 Group Topic: Skill implementation Summary of Group Activity: Check in Patient's level of participation in group process: Engaged in group process, Interactive with other group members, Appeared eager to learn/discuss group topic, and Provided support and/or feedback to others Therapeutic Intervention utilized with Patient: Building rapport and engagement, Empathic listening, and Modeling/skills training Patient's Response to Intervention: Pt shared updates from the weekend. Pt shared about the updates between she and her and how she was continuing to try to work on implementing boundaries. Pt shared that she was frustrated with the process of doing this. Mental Status Exam: Affect and Mood: blunted Behavior: Engaging and Interactive Cognition: Intact and Oriented X4 Additional comments: Progress Towards Goals: Moderate Next Step(s): Continue with current services Additional Comments (optional): Group No: 2 Start Time: 10:00 No. of Participants: 11 End Time: 10:50 Group Topic: Skill implementation Summary of Group Activity: Procrastination; making decisions Patient's level of participation in group process: Engaged in group process and Interactive with other group members Therapeutic Intervention utilized with Patient: Cognitive Behavioral Therapy (CBT) and Modeling/skills training Patient's Response to Intervention: Pt was active in the session. Pt said that she thought that this was a good group. Pt said that she did not think that there was an advantage in procrastinating. Mental Status Exam: Affect and Mood: blunted and depressed Behavior: Cooperative, Engaging, and Interactive Cognition: Intact and Oriented X4 Additional comments: Progress Towards Goals: Moderate Next Step(s): Continue with current services Additional Comments (optional): [facility] 94 Outpatient [facility] Group Therapy Documentation Program: Partial Hospitalization ProgramGroup Type: Psychiatric IOP Group Date: 05/16/2025 Facilitators: CLYDE Llanes Department: [facility] Psych IOP Group No: 3 Start Time: 11:00 AM No. of Participants: 11 End Time: 12:00 PM Group Topic: Art Therapy Summary of Group Activity: Facilitated group re: [place]/Learning to Let Go; [place] Boxes. Therapist facilitated group discussion of letting go and independence from via quote prompts. Educated group on symbolism of boxes in ?containing? throughout history. Facilitated art therapy task: create a box to contain what you would like to release/be independent from. Write down those things and insert them in the box. Therapist facilitated processing of written items and art making experience. Therapist facilitated processing of individual [place] Boxes. Patient's level of participation in group process: Engaged in group art making process, Less interactive with other group members, and Appeared eager to learn/discuss group topic Therapeutic Intervention utilized with Patient: Building rapport and engagement, Empathic listening, Psychoeducation, Art therapy, Expressive therapy, and [place] Therapy Patient's Response to Intervention: Patient appropriately participated in discussion of letting go and independence. Patient actively created an [place] Box. Patient actively wrote down things they would like to let go of. Patient did not process individual [place] Box as the group ran out of time before processing and will process next week. Mental Status Exam: Affect and Mood: appropriate, bright, brightens with interaction, labile, and tearful Behavior: Pleasant, Cooperative, Engaging, and Interactive Cognition: Intact Additional comments: None Progress Towards Goals: Moderate Next Step(s): Continue with current services Additional Comments (optional): Patient continues to need this level of care as patient reports ongoing symptoms severity that impedes patient's ability to meet demands of ADLS. [facility] 94on 05-13-2025 94 Outpatient [facility] Group Therapy Documentation Program: Psychiatric Intensive Outpatient ProgramGroup Type: Psychiatric IOP Group Date: 05/13/2025 Facilitators: Alejandra Mead [facility] Department: [facility] Psych IOP Group No: 1 Start Time: 9:00 No. of Participants: 10 End Time: :50 Group Topic: Skill implementation Summary of Group Activity: Check ins Patient's level of participation in group process: Engaged in group process, Interactive with other group members, and Provided support and/or feedback to others Therapeutic Intervention utilized with Patient: Building rapport and engagement, Empathic listening, and Modeling/skills training Patient's Response to Intervention: Pt was active and interactive. Pt gave updates on the past week. Pt shared she was seeing the connection to her triggers and her 's manner of treating her. Pt said that she had taken some time to [place] the [place] and thoroughly enjoyed herself. Mental Status Exam: Affect and Mood: anxious and brightens with interaction Behavior: Cooperative, Engaging, and Interactive Cognition: Intact and Oriented X4 Additional comments: Progress Towards Goals: Moderate Next Step(s): Continue with current services Additional Comments (optional): Group No: 2 Start Time: 10:00 No. of Participants: 10 End Time: 10:50 Group Topic: Skill implementation Summary of Group Activity: Highly sensitive people; Body scan Patient's level of participation in group process: Engaged in group process Therapeutic Intervention utilized with Patient: Dialectical Behavioral Therapy skills (DBT) and Systemic intervention Patient's Response to Intervention: Pt took a quiz to determine their relation to those who might present as being highly sensitive. Mental Status Exam: Affect and Mood: anxious Behavior: Cooperative, Engaging, and Interactive Cognition: Intact and Oriented X4 Additional comments: Progress Towards Goals: Moderate Next Step(s): Continue with current services Additional Comments (optional): Group No: 3 Start Time: 11:00 No. of Participants: 10 End Time: 11:50 Group Topic: Skill implementation Summary of Group Activity: One-mindfully; Love dandelions; weekend planning Patient's level of participation in group process: Engaged in group process, Interactive with other group members, Appeared eager to learn/discuss group topic, and Provided support and/or feedback to others Therapeutic Intervention utilized with Patient: Dialectical Behavioral Therapy skills (DBT) Patient's Response to Intervention: Pt continued to be active in session. Pt told about how she was using mindfulness in her eating as she was dealing with her appetite. Pt shared that their weekend plans and said that they were going to be visiting with family members and was going to be needing to be mindful around certain other family members. Mental Status Exam: Affect and Mood: anxious and depressed Behavior: Cooperative and Engaging Cognition: Intact and Oriented X4 Additional comments: Progress Towards Goals: Moderate Next Step(s): Continue with current services Additional Comments (optional): [facility] Progress Noteon 05-13-2025 Progress Note [facility] Intensive Outpatient Program [address], [address] [place] [address] Patient Name: Gisela Turner Date of : 1970 Chief Complaint Patient presents with Anxiety Depression INTERVAL HISTORY: Gisela was seen in follow-up for history of depression and anxiety. She is being evaluated for a recertification. Overall she reports that she is doing good. Reports some mild ongoing depression that she states is a 3 out of 10 in severity. Anxiety is mild. Reports her main stressor is relationship with her which she is working on setting boundaries with. Reports the group has been very helpful for her. She is utilizing skills on a daily basis within herself and at home and has found positive benefit from group. Reports sleep and appetite are adequate. Denies suicidal thoughts, no intent or plan. Reports energy, concentration are adequate throughout the day. Energy level is adequate. Continues with medication including Pristiq, Lamictal, trazodone, Seroquel daily for mood, anxiety and sleep. After her last visit she did discontinue Wellbutrin and has noticed a positive improvement in her abdominal complaints. She denies other physical complaints at this time. She does have a history of major depression, was recently hospitalized to [facility]. She is following up with [facility] for outpatient care. CURRENT MEDICATIONS: Medications Ordered Prior to Encounter[1] ALLERGIES: Allergies[2] REVIEW OF SYSTEMS: General: denies any acute physical complaints, good general state of health HEENT: normal vision, no throat problems, no head cold Respiratory: denies shortness of breath Cardiovascular: denies symptoms, denies chest pain Gastrointestinal: Positive for intermittent abdominal bloating, constipation Musculoskeletal: denies back pain, denies joint pain Dermatologic: denies any rashes Neurologic: denies headaches, denies any involuntary movements Remainder of review of systems is negative except where described elsewhere in this note. OBJECTIVE EXAM: Vitals: 05/13/25 0931 BP: 129/82 Pulse: 83 Resp: 16 Temp: 36.7 ?C (98 ?F) SpO2: 95% MENTAL STATUS EXAM: APPEARANCE: casually groomed BEHAVIOR: calm PSYCHOMOTOR: average SPEECH: normal rate, coherent, spontaneous. LANGUAGE: average MOOD: good AFFECT: full/congruent THOUGHT PROCESS: linear/organized THOUGHT CONTENT: focused on doing better overall ASSOCIATIONS: intact PERCEPTIONS/HALLUCINATI ONS: denies ABSTRACTION: good INSIGHT: good, including concerning psychiatric condition. JUDGMENT: good, including concerning psychiatric condition. ORIENTATION: oriented to person, place, time, and general circumstances MEMORY: recent and remote memory intact ATTENTION SPAN: good CONCENTRATION: good GAIT: normal gait and station ASSESSMENT: 1.) major depressive disorder, recurrent, severe episode, chronic, improving 2.) generalized anxiety disorder, chronic, stable PLAN: - Continue IOP as scheduled -Continue Pristiq 100 mg daily for mood -Continue Lamictal 225 mg daily for mood -Continue trazodone 50 mg daily for sleep -Continue Seroquel 50 mg at night for sleep -Follow-up with [facility] as scheduled for outpatient care. -Patient requires ongoing follow up for psychiatric care due to a risk of exacerbation which could cause significant impairment. -Goals/Objectives of treatment include further improvement in through supportive psychotherapy and medication management. -Patient was provided support, reassurance, and psychoeducation regarding the diagnoses. -Patient was encouraged to abstain from alcohol, tobacco, and illicit drug use. -Safety planning was discussed in detail. Patient was encouraged to call the [facility] office at [phone] during business hours for non-emergencies. For after hours emergencies, the patient was encouraged to call 911 or go to their nearest emergency department immediately. -Effects and adverse effects of prescribed psychotropic medication were reviewed with the patient. Assessment of long-term risks of ongoing medication was performed. -The patient voiced understanding of the treatment plan and recommendations. Xuan Echevarria MD [1] Current Outpatient Medications on File Prior to Encounter Medication Sig Dispense Refill aspirin 81 MG EC tablet Take 81 mg by mouth daily. atorvastatin (Lipitor) 20 MG tablet Take 20 mg by mouth Nightly. desvenlafaxine (Pristiq) 100 MG 24 hr tablet Take 100 mg by mouth daily. Do not crush, chew, or split. estradiol (Estrace) 0.1 MG/GM vaginal cream Insert 2 g into the vagina Twice a Week. Apply a pea sized amount to lower vagina - at bedtime twice weely. estradiol (Estrace) 2 MG tablet Take 1 mg by mouth Nightly. 1/2 tablet 2 mg tablet = 1 mg LaMICtal 200 MG tablet Take 1 tablet (200 mg) by mouth Nightly. 30 tablet 0 LaMICtal 25 MG tablet Take 1 tablet (more content not included)... [facility] 05-10-2025 Outpatient [facility] Group Therapy Documentation Program: Psychiatric Intensive Outpatient ProgramGroup Type: Psychiatric IOP Group Date: 05/10/2025 Facilitators: CLYDE Coombs Department: [facility] Psych IOP Group No: 1 Start Time: 9:00 No. of Participants: 10 End Time: 9:50 Group Topic: Skill implementation Summary of Group Activity: Mindfulness activity Patient's level of participation in group process: Engaged in group process, Appeared eager to learn/discuss group topic, and Provided support and/or feedback to others Therapeutic Intervention utilized with Patient: Modeling/skills training Patient's Response to Intervention: Pt was open and engaged in activity. Pt reported success in being able to focus. Pt was sharing their reactions to what they were thinking about and commented on other's experience. Mental Status Exam: Affect and Mood: appropriate Behavior: Cooperative and Assertive Cognition: Intact and Oriented X4 Additional comments: Progress Towards Goals: Significant Next Step(s): Continue with current services Additional Comments (optional): Pt and staff met on break and pt informed that she was choosing to leave for the remainder of the day. Pt said that she had recently been able to make the connection between her mood and the treatment she has been receiving from a certain other person for many years. Pt said that she was aware of this and was wanting to discuss this to be able to change it. Pt was leaving to spend the day by herself. [facility] 05-09-2025 Outpatient [facility] Group Therapy Documentation Program: Psychiatric Intensive Outpatient ProgramGroup Type: Psychiatric IOP Group Date: 05/09/2025 Facilitators: CLYDE Llanes Department: [facility] Psych IOP Group No: 3 Start Time: 11:00 AM No. of Participants: 10 End Time: 12:00 PM Group Topic: Art Therapy Summary of Group Activity: Facilitated group re: Eclipse/Shadow. Therapist facilitated discussion of quote prompt to engage group in discussing coping mechanisms and transient nature of shadow or adversity. Therapist facilitated art therapy task: decorate an origami sun based on hope and the transient nature of shadows or adversity in life. Therapist facilitated art making experience. Therapist facilitated processing of individual origami sun art. Patient's level of participation in group process: Engaged in group process, Interactive with other group members, and Appeared eager to learn/discuss group topic Therapeutic Intervention utilized with Patient: Building rapport and engagement, Empathic listening, Psychoeducation, Modeling/skills training, Art therapy, Expressive therapy, and [place] Therapy Patient's Response to Intervention: Patient engaged minimally in group discussion of quote prompt due to her lack of knowledge of the books or movies. Patient actively engaged in creating origami sun. Patient appropriately processed art making experience. Patient actively engaged in processing of individual origami sun art. Patient created a sun with red tissue paper and pipe maker spirals; patient stated she did so because she loves the sun. Patient stated she was very relaxed while making her art because, I didn't have to be perfect. Therapist facilitated a discussion on what it might be like to not have to be perfect in everything she does and patient and therapist discussed a specific example. Mental Status Exam: Affect and Mood: appropriate Behavior: Pleasant, Cooperative, Engaging, and Interactive Cognition: Intact Additional comments: None Progress Towards Goals: Moderate Next Step(s): Continue with current services Additional Comments (optional): Patient continues to need this level of care as patient reports ongoing symptoms severity that impedes patient's ability to meet demands of ADLS. [facility] 94 Outpatient [facility] Group Therapy Documentation Program: Psychiatric Intensive Outpatient ProgramGroup Type: Psychiatric IOP Group Date: 05/09/2025 Facilitators: CLYDE Coombs Department: [facility] Psych IOP Group No: 1 Start Time: 9:00 No. of Participants: 10 End Time: 9:50 Group Topic: Skill implementation Summary of Group Activity: Check ins Patient's level of participation in group process: Engaged in group process Therapeutic Intervention utilized with Patient: Building rapport and engagement and Empathic listening Patient's Response to Intervention: Pt said that she had learned some things that were new triggers for her and that she had been thinking that these came from her childhood, but they were extensions of the manner in which her had been treating her. Mental Status Exam: Affect and Mood: appropriate and depressed Behavior: Pleasant, Cooperative, and Interactive Cognition: Intact and Oriented X4 Additional comments: Progress Towards Goals: Moderate Next Step(s): Continue with current services Additional Comments (optional): Group No: 2 Start Time: 10:00 No. of Participants: 10 End Time: 10:50 Group Topic: Skill implementation Summary of Group Activity: [place] helplessness Patient's level of participation in group process: Engaged in group process Therapeutic Intervention utilized with Patient: Cognitive Behavioral Therapy (CBT) Patient's Response to Intervention: Pt said that she thought that it was possible for people to change. Pt said that she thought that it was possible for people to be able to unlearn things. Pt shared about a game that she knew that she recommended. Mental Status Exam: Affect and Mood: depressed, anxious Behavior: Engaging and Interactive Cognition: Intact and Oriented X4 Additional comments: Progress Towards Goals: Moderate Next Step(s): Continue with current services Additional Comments (optional): [facility] 94on 05-06-2025 94 Outpatient [facility] Group Therapy Documentation Program: Psychiatric Intensive Outpatient ProgramGroup Type: Psychiatric IOP Group Date: 05/06/2025 Facilitators: Lilliam Rodriguez Department: [facility] Psych IOP Group No: 1 Start Time: 9:00 AM No. of Participants: 9 End Time: 10:00AM Group Topic: Check in process/Introduction to Authenticity/Vulnerabil ity Summary of Group Activity: Clinician introduced herself to group as substitute clinician. Clinician introduced check in process using GLAD technique. Clinician introduced topic of authenticity/vulnerabil ity with Power of Jessica THORNTON talk by Juany Henderson. Patient's level of participation in group process: Engaged in group process, Interactive with other group members, Appeared eager to learn/discuss group topic, and Provided support and/or feedback to others Therapeutic Intervention utilized with Patient: Building rapport and engagement, Empathic listening, Cognitive Behavioral Therapy (CBT), and Motivational interviewing techniques Patient's Response to Intervention: Pt participated in the check in process sharing she was grateful for art therapy this week, reporting she gained a lot from the [employer] art during Friday's group. She reports learning to stay in the present and accomplished acknowledging that. She reports feeling delight/janki by feeling ?the light? identifying that she feels she can move forward knowing that she was focused on past events. Mental Status Exam: Affect and Mood: appropriate and brightens with interaction Behavior: Pleasant, Cooperative, and Engaging Cognition: Intact and Oriented X4 Additional comments: N/A Progress Towards Goals: Moderate Next Step(s): Continue with current services Additional Comments (optional): N/A Group No: 2 Start Time: 10:10AM No. of Participants: 9 End Time: 11:00AM Group Topic: Authenticity/Vulnerabil ity continued Summary of Group Activity: Topic continued, Clinician provided handout on Authenticity and group discussed truest self. Patient's level of participation in group process: Engaged in group process, Interactive with other group members, Appeared eager to learn/discuss group topic, and Provided support and/or feedback to others Therapeutic Intervention utilized with Patient: Building rapport and engagement, Empathic listening, Cognitive Behavioral Therapy (CBT), and Motivational interviewing techniques Patient's Response to Intervention: Pt was engaged in group discussion sharing personal experiences with authenticity/vulnerabil ity. Pt reports what she has found difficult and what she has been successful with in finding her truest self. She was observed to be engaged in active listening and providing appropriate support to her peers. Mental Status Exam: Affect and Mood: appropriate and brightens with interaction Behavior: Pleasant and Cooperative Cognition: Intact and Oriented X4 Additional comments: N/A Progress Towards Goals: Moderate Next Step(s): Continue with current services Additional Comments (optional): N/A Group No: 3 Start Time: 11:10AM No. of Participants: 9 End Time: 12:00 PM Group Topic: Continued topic Summary of Group Activity: Clinician introduced art project. Group participated in creating masks, decorating the outside of the mask the perceptions of others vs the internal perceptions inside the mask. Patient's level of participation in group process: Engaged in group process, Interactive with other group members, Appeared eager to learn/discuss group topic, and Provided support and/or feedback to others Therapeutic Intervention utilized with Patient: Building rapport and engagement, Empathic listening, Art therapy, and Motivational interviewing techniques Patient's Response to Intervention: Pt participated in art therapy, observed to be coloring and drawing on her mask. Pt was observed to be listening as others shared their masks. She provided appropriate support and feedback to her peers. Mental Status Exam: Affect and Mood: appropriate and brightens with interaction Behavior: Pleasant, Cooperative, and Engaging Cognition: Intact and Oriented X4 Additional comments: N/A Progress Towards Goals: Moderate Next Step(s): Continue with current services Additional Comments (optional): N/A [facility] 2905-03-2025 29 Encounter addended b y: Delores Ballard on: 05/04/2025 11:18 AM Actions taken: Charge Capture section accepted [facility] 9405-03-2025 94 Outpatient [facility] Group Therapy Documentation Program: Psychiatric Intensive Outpatient Program Group Type: Psychiatric IOP Group Date: 05/03/2025 Facilitators: Shiloh Rapp [facility] Department: [facility] Psych IOP Group No: 1 Start Time: 9:00 AM No. of Participants: 7 End Time: 10:00 Group Topic: Mindfulness skill Summary of Group Activity: The how's and what's of carlos mind Patient's level of participation in group process: Engaged in group process, Interactive with other group members, and Appeared eager to learn/discuss group topic Therapeutic Intervention utilized with Patient: Building rapport and engagement, Empathic listening, Cognitive Behavioral Therapy (CBT), and Dialectical Behavioral Therapy skills (DBT) Patient's Response to Intervention: Pt stated that has struggled for so many years with her emotions getting the best of her and then leading to difficulties in her life. I am really good at the black and white thinking. Struggles to access carlos mind and finds the how/what skills to be helpful in making it a bit more simple. Mental Status Exam: Affect and Mood: appropriate Behavior: Pleasant, Cooperative, Engaging, and Interactive Cognition: Oriented X4 Additional comments: n/a Progress Towards Goals: Moderate Next Step(s): Continue with current services Additional Comments (optional): Group No: 2 Start Time: 10:00 No. of Participants: 9 End Time: 11:00 Group Topic: Biosocial Theory Summary of Group Activity: Discuss of theory and how self relates Patient's level of participation in group process: Engaged in group process, Interactive with other group members, and Appeared eager to learn/discuss group topic Therapeutic Intervention utilized with Patient: Building rapport and engagement, Empathic listening, Cognitive Behavioral Therapy (CBT), and Dialectical Behavioral Therapy skills (DBT) Patient's Response to Intervention: Pt stated that her family or origin was very dysfunctional and that she was not allowed to discuss certain events that happened in her life or to process them. Found some reprieve in school but even then found herself not experience contentment like her peers and always struggling with big emotions. Mental Status Exam: Affect and Mood: appropriate Behavior: Pleasant, Cooperative, Engaging, and Interactive Cognition: Oriented X4 Additional comments: n/a Progress Towards Goals: Moderate Next Step(s): Continue with current services Additional Comments (optional): Group No: 3 Start Time: 11:00 No. of Participants: 9 End Time: 12:00 PM Group Topic: Biosocial Theory continued... Summary of Group Activity: How to manage and use skills to deal with invalidating environments Patient's level of participation in group process: Engaged in group process, Interactive with other group members, and Appeared eager to learn/discuss group topic Therapeutic Intervention utilized with Patient: Building rapport and engagement, Empathic listening, Cognitive Behavioral Therapy (CBT), and Dialectical Behavioral Therapy skills (DBT) Patient's Response to Intervention: Pt was attentive throughout hour. Stated that could use urge surfing in every day life. Mental Status Exam: Affect and Mood: appropriate Behavior: Pleasant, Cooperative, Engaging, and Interactive Cognition: Oriented X4 Additional comments: n/a Progress Towards Goals: Moderate Next Step(s): Continue with current services Additional Comments (optional): [facility] 94on 05-02-2025 94 Outpatient [facility] Group Therapy Documentation Program: Psychiatric Intensive Outpatient ProgramGroup Type: Psychiatric IOP Group Date: 05/02/2025 Facilitators: Shanti Beck Department: [facility] Psych IOP Group No: 1 Start Time: 900 a No. of Participants: 8 End Time: 950 a Group Topic: Check ins/weekend review Summary of Group Activity: Pts introduce themselves to covering therapist, reviewed and processed weekend. Discussed and reinforced skills use and progress since IOP/topics discussed. Patient's level of participation in group process: Engaged in group process, Interactive with other group members, Appeared eager to learn/discuss group topic, and Provided support and/or feedback to others Therapeutic Intervention utilized with Patient: Building rapport and engagement, Empathic listening, Cognitive Behavioral Therapy (CBT), Dialectical Behavioral Therapy skills (DBT), and Modeling/skills training Patient's Response to Intervention: Pt reports working on coping/managing physical pain over weekend. Pt states she has been working on listening to her body and also give herself katarina. Pt reports having good session with individual therapist regarding childhood trauma which improved her mood as she felt understood. Mental Status Exam: Affect and Mood: appropriate, brightens with interaction, and depressed Behavior: Pleasant, Cooperative, Engaging, and Interactive Cognition: Intact and Oriented X4 Additional comments: n/a Progress Towards Goals: Moderate Next Step(s): Continue with current services Additional Comments (optional): Group No: 2 Start Time: 1000 a No. of Participants: 8 End Time: 1055 a Group Topic: DBT Carlos mind Summary of Group Activity: Provided psychoedcuation and facilitated group discussion of DBT Carlos Mind model. Pts discussed and identified examples of times they had been in each mindset. Brainstormed ways to increase and shift access to carlos mind. Patient's level of participation in group process: Engaged in group process, Interactive with other group members, Appeared eager to learn/discuss group topic, and Provided support and/or feedback to others Therapeutic Intervention utilized with Patient: Building rapport and engagement, Empathic listening, Dialectical Behavioral Therapy skills (DBT), Psychoeducation, Modeling/skills training, and Motivational interviewing techniques Patient's Response to Intervention: Pt was receptive during session and verbalized understanding of Carlos mind as it relates to thoughts, feelings and behaviors. Mental Status Exam: Affect and Mood: appropriate Behavior: Pleasant, Cooperative, Engaging, and Interactive Cognition: Intact and Oriented X4 Additional comments: n/a Progress Towards Goals: Moderate Next Step(s): Continue with current services Additional Comments (optional): [facility] Program: Psychiatric Intensive Outpatient ProgramGroup Type: Psychiatric IOP Group Date: 05/02/2025 Facilitators: CLYDE Llanes Department: [facility] Psych IOP Group No: 3 Start Time: 11:00 AM No. of Participants: 8 End Time: 12:00 PM Group Topic: Art Therapy Summary of Group Activity: Facilitated group: Perspective and Trains as a metaphor for Life. Therapist facilitated group processing of article: Trains/train tracks/ and journeys as a metaphor for life. Therapist facilitated art therapy task: depict your life as a train journey thus far and where you would like to go next. Therapist facilitated processing of completed train/train tracks art. Patient's level of participation in group process: Engaged in group process and Provided support and/or feedback to others Therapeutic Intervention utilized with Patient: Building rapport and engagement, Empathic listening, Psychoeducation, Modeling/skills training, Art therapy, Expressive therapy, and [place] Therapy and Solution-focused therapy Patient's Response to Intervention: Patient appropriately participated in discussion of Trains/train tracks/train journeys as a metaphor for life. Patient actively participated in creating their life as a train journey. Patient actively engaged in processing their individual train journey art with the group. Patient created a track with the places she lived which she connected to her past life. Patient was able to verbalize finally being able to start to leave that past behind to focus on self care and her future. Mental Status Exam: Affect and Mood: appropriate Behavior: Pleasant, Cooperative, and Engaging Cognition: Intact Additional comments: None Progress Towards Goals: Moderate Next Step(s): Continue with current services [facility] 94on 04-29-2025 94 [facility] Group Therapy Documentation Program: Psychiatric Intensive Outpatient ProgramGroup Type: Psychiatric IOP Group Date: 04/29/2025 Facilitators: CLYDE Coombs Department: [facility] Psych IOP Group No: 1 Start Time: 9:00 No. of Participants: 10 End Time: 9:50 Group Topic: Skill implementation Summary of Group Activity: Check ins; Benefits of exercise Patient's level of participation in group process: Engaged in group process Therapeutic Intervention utilized with Patient: Systemic intervention Patient's Response to Intervention: Pt said that she used to do more swimming than she does currently. Pt was asking about exercise and weight loss. Pt reported the following: she and therapist had a productive session and she is hopeful about moving forward in treatment and getting the help that she is looking to get. Mental Status Exam: Affect and Mood: anxious Behavior: Engaging and Interactive Cognition: Intact and Oriented X4 Additional comments: Progress Towards Goals: Moderate Next Step(s): Continue with current services Additional Comments (optional): Group No: 2 Start Time: 10:00 No. of Participants: 10 End Time: 10:50 Group Topic: Skill implementation Summary of Group Activity: Breathing, Facts vs feelings Patient's level of participation in group process: Engaged in group process Therapeutic Intervention utilized with Patient: Cognitive Behavioral Therapy (CBT) and Dialectical Behavioral Therapy skills (DBT) Patient's Response to Intervention: Pt demonstrated that they were listening and paying attention. Pt said that she could see how deep breathing brought a person into the moment. Pt said that she will use a certain type of chest breathing. Pt shared how she was impacted by the fact that her father forgot her birthday. Mental Status Exam: Affect and Mood: anxious Behavior: Cooperative, Engaging, and Interactive Cognition: Intact and Oriented X4 Additional comments: Progress Towards Goals: Moderate Next Step(s): Continue with current services Additional Comments (optional): Group No: 3 Start Time: 11:00 No. of Participants: 10 End Time: 11:50 Group Topic: Skill implementation Summary of Group Activity: Moment to pause; mindful eating; weekend planning; graduation Patient's level of participation in group process: Engaged in group process Therapeutic Intervention utilized with Patient: Dialectical Behavioral Therapy skills (DBT) Patient's Response to Intervention: Pt shared the one fun thing planned and one responsibility planned for the weekend. The following plans were reported: she was going to have a campfire in her amos as she liked it when she did this. Pt said that she was also going to scrub and sweep the floors. Mental Status Exam: Affect and Mood: appropriate Behavior: Pleasant, Cooperative, Engaging, and Interactive Cognition: Intact Additional comments: Progress Towards Goals: Moderate Next Step(s): Continue with current services Additional Comments (optional): [facility] 94on 04-26-2025 94 Outpatient [facility] Group Therapy Documentation Program: Psychiatric Intensive Outpatient ProgramGroup Type: Psychiatric IOP Group Date: 04/26/2025 Facilitators: CLYDE Coombs Department: [facility] Psych IOP Group No: 1 Start Time: 9:00 No. of Participants: 8 End Time: 9:50 Group Topic: Skill implementation Summary of Group Activity: Anxiety Patient's level of participation in group process: Engaged in group process Therapeutic Intervention utilized with Patient: Psychoeducation Patient's Response to Intervention: Pt said that she was made anxious the day prior with a phone call made to her. Pt was coloring and was active in the session conversation. Mental Status Exam: Affect and Mood: appropriate Behavior: Pleasant, Cooperative, Engaging, and Interactive Cognition: Intact and Oriented X4 Additional comments: Progress Towards Goals: Moderate Next Step(s): Continue with current services Additional Comments (optional): Group No: 2 Start Time: 10:00 No. of Participants: 9 End Time: 10:50 Group Topic: Skill implementation Summary of Group Activity: Anxiety Patient's level of participation in group process: Engaged in group process Therapeutic Intervention utilized with Patient: Psychoeducation Patient's Response to Intervention: Pt admitted to not liking the font used for handout. Pt said that she goes to a [place] every year to be able to get some vitamin D. Pt said that she has a tight chest when she had panic. Pt was asking if it was panic when it came on quickly. Pt said that going to the doctor gave her anxiety but also lead to a reduction in anxiety. Mental Status Exam: Affect and Mood: appropriate Behavior: Pleasant, Cooperative, Engaging, and Interactive Cognition: Intact and Oriented X4 Additional comments: Progress Towards Goals: Moderate Next Step(s): Continue with current services Additional Comments (optional): Group No: 3 Start Time: 11:00 No. of Participants: 9 End Time: 11:50 Group Topic: Skill implementation Summary of Group Activity: anxiety Patient's level of participation in group process: Engaged in group process Therapeutic Intervention utilized with Patient: Psychoeducation Patient's Response to Intervention: Pt was able to respond with how she would respond in anxiety provoking situation. Pt was again confirming how avoiding anxiety did not solve it and agreed with going to the source. Mental Status Exam: Affect and Mood: appropriate Behavior: Pleasant, Cooperative, Engaging, and Interactive Cognition: Intact and Oriented X4 Additional comments: Progress Towards Goals: Moderate Next Step(s): Continue with current services Additional Comments (optional): [facility] CNOVon 04-26-2025 CN Office Visit (WHICCP ) GISELA TURNER ([id number]) 1970 F Date Time Provider Department 04/26/25 4:00 PM ROSIE STERLING During your visit today, we recorded the following information about you: Blood pressure Weight 150/86 63.1 kg Rosie Sterling MD 04/28/2025 12:51 PM Signed [facility] SECTION FOR CHRONIC PELVIC PAIN OUTPATIENT VISIT DATE 04/26/2025 OUTPATIENT VISIT TYPE FOLLOW UP CHIEF COMPLAINT Gisela Turner is a 54 year old female who presents for botox injections. HISTORY OF PRESENT ILLNESS Gisela is a 54 year old female who is in today for BOtox and accompanied by self. Since last visit: Took 6 weeks to kick in then has relief for a few months. Bladder and sexual intercourse felt better. Have done PFPT but sometimes have pain. Her cousnelor lefttriggered depression AND was hospitalized And now in IOP Started on wellbutrin XL and got so distended and stopped it Intensity of pain: mild Average Pain level: 4 on a scale of 0-10 Emergency room visits for pain since last visit: no Level of physical activity and mobility: up in the air right now Quality of sleep: good Mood: not the greatest Side effects of medications for pain: Pain Scales SUMMARY FROM LAST VISIT Date: 01/25/25 Encounter Diagnosis ICD-10-CM 1. High-tone pelvic floor dysfunction M62.89 onabotulinum toxin type A 100 Units injection (BOTOX) BUPivacaine HCl 50 mg injection (SENSORCAINE) TRIGGER POINT INJECTION MULTI 1-2 MUSCLE GR L>> R extreme Pelvic floor pain Did try TPI w vaginal botox 100 units today Fu 6 wks virtula Consider referral to maría spear Follow up in 6 wks virtually TREATMENT HISTORY No specialty comments available. PHYSICAL EXAM BP 150/86 Wt 63.1 kg (139 lb 1.8 oz) LMP 09/13/2013 BMI 24.64 kg/m? Physical Exam Ships Equipment Engineer offered: Patient accepts, visit chaperoned by Gonzalez Og. SENSITIVE EXAM: The sensitive examination was discussed with the Patient or Patient's Authorized Enterprise Resource Planner. As applicable, any other physician, advance practice provider, medical student, or other health professional student that will be observing or involved in the sensitive examination for educational or training purposes was discussed with the Patient or Authorized Enterprise Resource Planner. The Patient or Authorized Enterprise Resource Planner has agreed to proceed with the sensitive examination. (Sensitive examination includes inspection and/or palpation of the breasts, pelvis, prostate and anorectal regions). General: The patient is a well-appearing female in no acute distress. Examination Pelvic Floor Musculature RIGHT SIDED Pubococcygeus: 3 Iliococcygeus: 3 Coccygeus: 3 Obturator: 3 LEFT SIDED Pubococcygeus: 3 Iliococcygeus: 3 Coccygeus: 3 Obturator: 3 (Pain Scale 1 to 3, 3= extreme) RV exam - deferred LABS/IMAGING: ASSESSMENT/PLAN Encounter Diagnosis ICD-10-CM 1. High-tone pelvic floor dysfunction M62.89 TRIGGER POINT INJECTION MULTI 1-2 MUSCLE GR onabotulinum toxin type A 100 Units injection (BOTOX) BUPivacaine HCl 50 mg injection (SENSORCAINE) CYSTOSCOPY [facility]I Extreme pain 1.vag TPI AND Botox done today Follow up in 3 month Procedure charge only Patient verbalized understanding of the plan of care and all questions were answered to her stated satisfaction. Written and verbal health teaching given to patient, patient verbalizes understanding and agrees with treatment plan. I personally interviewed, confirmed and edited the above information if obtained by others. Rosie Sterling MD ORDERS PLACED . Office Visit on 04/26/25 CYSTOSCOPY [facility]I TRIGGER POINT INJECTION MULTI 1-2 MUSCLE GR CYSTOSCOPY [facility]I onabotulinum toxin type A 100 Units injection (BOTOX) BUPivacaine HCl 50 mg injection (SENSORCAINE) CPP Summary: DIAGNOSES: Vulvodynia, high tone PFD, Dyspareunia Surgery 1. Colonoscopy 2012 2. DANDC 2012 3. Laparoscopy 2012 4. Cholecystectomy 2005 5. Hysteroscopy 2012 6. Procedures (TPI, botox, pain bocks, etc) 1. 01/2025 B vag TPI AND L botox 100 units , B vag TPI AND B botox 04/26/25 Nonhormonal Medications 1. Gabapentin 4% cream Hormonal medications (IUD, control pill, GNRH) 1. Estradiol 2. Estrogen cream Services (GI, urology, pain psych,PFPT) 1. PFPT Has therawand << >> UNIVERSAL PROTOCOL / SAFETY CHECKLIST Procedure to be Performed: vaginal trigger point injections and vaginal botox injections Sign In: A Moment of CARE was completed. Appropriate PPE (Personal Protective Equipment) worn by all providers involved with the procedure. Special equipment not required. Patient/Surrogate Stated/Verified: Patient name, Date of , Relevant allergies, and The intended procedure Time Out: Relevant labs, photos, and/or imaging studies have been reviewed. Intended patien (more content not included)... Normal [facility] [id number] 04-25-2025 [id number] Pt had an excused absence on this date. [facility] 94on 04-22-2025 94 Outpatient [facility] Group Therapy Documentation Program: Psychiatric Intensive Outpatient Program Group Type: Psychiatric IOP Group Date: 04/22/2025 Facilitators: DIEGO Serrato Department: [facility] Psych IOP Group No: 1 Start Time: 9am No. of Participants: 9 End Time: 9:50am Group Topic: Feelings Check-in and introductions Summary of Group Activity: Pt participated in a check-in and introductions where each pt shared how they were feeling emotionally, offering and receiving feedback, and how they tried to address reported emotional challenges Patient's level of participation in group process: Engaged in group process and Interactive with other group members Therapeutic Intervention utilized with Patient: Establishing rapport, empathic listening, Psychoeducation, DBT, CBT Patient's Response to Intervention: The pt reported being in an okay mood, rating her mood 6/10. Overall, she feels some depression and anxiety. She rated her depression and anxiety both 6/10. She shared that she has to figure out her medications and that she has realized what some of the side effects are. She shared that she uses radical acceptance to help herself. She shared that she struggles with accepting who she is and acknowledged she could use radical acceptance even further than she has to help with this. Mental Status Exam: Affect and Mood: appropriate, depressed, anxious Behavior: Cooperative and Interactive Cognition: Oriented X4 Additional comments: na Progress Towards Goals: Moderate Next Step(s): Continue with current services Additional Comments (optional): Group No: 2 Start Time: 10 am No. of Participants: 9 End Time: 10:50am Group Topic: Change process Summary of Group Activity: Introduced the group to the concept of neuroplasticity. Watched a video what is Neuroplasticity and asked pt to complete 3 questions. Discussed the implications when overcoming anxiety. Encouraged pt to identify areas in life they would like to approach more rather than avoid Patient's level of participation in group process: Engaged in group process and Interactive with other group members Therapeutic Intervention utilized with Patient: Establishing rapport, empathic listening, Psychoeducation, CBT, Emotion-Focused Therapy Patient's Response to Intervention: Pt was engaged, as evidenced by, head nods and eye contact, offering personal comments, taking notes, and responding with relevant comments when called upon. Pt was able to verbalize/acknowledge new learning. The pt completed her worksheet and indicated an understanding of the relevance of neuroplasticity in treatment. The pt identified that she would like to be less avoidant about being in a group of friends and being vulnerable. Mental Status Exam: Affect and Mood: appropriate, depressed, anxious Behavior: Cooperative and Interactive Cognition: Oriented X4 Additional comments: na Progress Towards Goals: Moderate Next Step(s): Continue with current services Additional Comments (optional): Group No: 3 Start Time: 11am No. of Participants: 10 End Time: 12noon Group Topic: Cognitive Restructuring Summary of Group Activity: Addressed anxiety in terms of neuroplasticity. Watched a video Rewiring the Anxious Brain: Neuroplasticity and Anxiety. Discussed the difference between the function of healthy anxiety and disorder anxiety, and the role avoidance plays in promoting anxiety. Encouraged pt to adaptive thoughts and affirmations to replace maladaptive, anxiety prompting thoughts. Patient's level of participation in group process: Engaged in group process and Interactive with other group members Therapeutic Intervention utilized with Patient: Establishing rapport, empathic listening, Psychoeducation, CBT, emotion-focused therapy Patient's Response to Intervention: Pt was engaged, as evidenced by, head nods and eye contact, offering personal comments, taking notes, and responding with relevant comments when called upon. Pt was able to verbalize/acknowledge new learning. The pt chose I can do better next time and I deserve to be loved as positive affirmations she would like to reflect on more often. Mental Status Exam: Affect and Mood: appropriate, depressed, anxious Behavior: Cooperative and Interactive Cognition: Oriented X4 Additional comments: na Progress Towards Goals: Moderate Next Step(s): Continue with current services Additional Comments (optional): Normal [facility] Progress Noteon 04-22-2025 Progress Note [facility] Intensive Outpatient Program [facility] [address], [address] [place] [address] Patient Name: Gisela Turner Date of : 1970 Chief Complaint Patient presents with Depression INTERVAL HISTORY: Gisela was seen in follow-up for history of depression and anxiety. She is currently enrolled in [facility]. She asked to speak with me today due to possible medication side effects. She has continued with medications including Pristiq, Wellbutrin, Seroquel, trazodone daily for mood, anxiety and sleep. Reports recently she has been having some ongoing abdominal distention/bloating constipation and intermittent fatigue/shortness of breath. She does report a chronic history of this but apparently recently has gotten worse. She believes it may have gotten worse since stopping Wellbutrin. Reports emotionally overall doing well without significant ongoing depression or anxiety. Denies suicidal thoughts. Reports group has been helpful. She had a recent hospitalization to [facility] and follows up [facility] for ongoing care including individual counseling. CURRENT MEDICATIONS: Medications Ordered Prior to Encounter[1] ALLERGIES: Allergies[2] REVIEW OF SYSTEMS: General: denies any acute physical complaints, good general state of health HEENT: normal vision, no throat problems, no head cold Respiratory: denies shortness of breath Cardiovascular: denies symptoms, denies chest pain Gastrointestinal: Positive for intermittent abdominal bloating, constipation Musculoskeletal: denies back pain, denies joint pain Dermatologic: denies any rashes Neurologic: denies headaches, denies any involuntary movements Remainder of review of systems is negative except where described elsewhere in this note. OBJECTIVE EXAM: Vitals: 04/22/25 1000 BP: (!) 143/87 Pulse: 76 Resp: 16 Temp: 36.7 ?C (98 ?F) TempSrc: Oral SpO2: 96% MENTAL STATUS EXAM: APPEARANCE: casually groomed BEHAVIOR: calm PSYCHOMOTOR: average SPEECH: normal rate, coherent, spontaneous. LANGUAGE: average MOOD: ok AFFECT: full/congruent THOUGHT PROCESS: linear/organized THOUGHT CONTENT: focused on physical complaints ASSOCIATIONS: intact PERCEPTIONS/HALLUCINATI ONS: denies ABSTRACTION: good INSIGHT: good, including concerning psychiatric condition. JUDGMENT: good, including concerning psychiatric condition. ORIENTATION: oriented to person, place, time, and general circumstances MEMORY: recent and remote memory intact ATTENTION SPAN: good CONCENTRATION: good GAIT: normal gait and station ASSESSMENT: 1.) major depressive disorder, recurrent, severe episode, chronic, improving 2.) generalized anxiety disorder, chronic, stable PLAN: - Continue IOP as scheduled - Stop Wellbutrin due to GI complaints -Continue Pristiq 100 mg daily for mood -Continue Lamictal 225 mg daily for mood -Continue trazodone 50 mg daily for sleep -Continue Seroquel 50 mg at night for sleep -Follow-up with [facility] as [facility] for [facility] care. -Patient requires ongoing follow up for psychiatric care due to a risk of exacerbation which could cause significant impairment. -Goals/Objectives of treatment include further improvement in through supportive psychotherapy and medication management. -Patient was provided support, reassurance, and psychoeducation regarding the diagnoses. -Patient was encouraged to abstain from alcohol, tobacco, and illicit drug use. -Safety planning was discussed in detail. Patient was encouraged to call the [facility] office at [phone] during business hours for non-emergencies. For after hours emergencies, the patient was encouraged to call 911 or go to their nearest emergency department immediately. -Effects and adverse effects of prescribed psychotropic medication were reviewed with the patient. Assessment of long-term risks of ongoing medication was performed. -The patient voiced understanding of the treatment plan and recommendations. Xuan Echevarria MD [1] Current Outpatient Medications on File Prior to Encounter Medication Sig Dispense Refill aspirin 81 MG EC tablet Take 81 mg by mouth daily. atorvastatin (Lipitor) 20 MG tablet Take 20 mg by mouth Nightly. desvenlafaxine (Pristiq) 100 MG 24 hr tablet Take 100 mg by mouth daily. Do not crush, chew, or split. estradiol (Estrace) 0.1 MG/GM vaginal cream Insert 2 g into the vagina Twice a Week. Apply a pea sized amount to lower vagina - at bedtime twice weely. estradiol (Estrace) 2 MG tablet Take 1 mg by mouth Nightly. 1/2 tablet 2 mg tablet = 1 mg LaMICtal 200 MG tablet Take 1 tablet (200 mg) by mouth Nightly. 30 tablet 0 LaMICtal 25 MG tablet Take 1 tablet (25 mg) by mouth daily. Take with 200mg by mouth every day for total of 225mg 30 tablet 0 lansoprazole (Prevacid) [address] capsule Take 30 mg by mouth every morning (before breakfast). Do not crush or chew. (more content not included)... Normal [facility] CNTHERAPYon 04-20-2025 CNTHERAPY OT/PT/Speech Visit (AKPTB) GISELA TURNER ([id number]) 1970 F Date Time Provider Department 04/20/25 11:30 AM ALKA SHEPPARD Date Time Provider Department [place] 04/20/2025 11:30 AM [id number] SHEPPARD [facility] Reason for Visit: PT Progress Note [1596] Primary Visit Diagnosis:Muscular incoordination [R27.8] Other Visit Diagnosis:Constipation, unspecified constipation type [K59.00] Allergies As of Date: 04/20/2025 Noted Allergy Reaction AMOXICILLIN 11/25/2005 4 - Hives BACTRIM (SULFAMETHOXAZOLE) 11/13/2011 2 - Rash DIPHENHYDRAMINE 10/07/2018 14 - Other: See Comments MOXIFLOXACIN 06/04/2023 4 - Hives SEPTRA (SULFAMETHOXAZOLE-TRIME THO*11/25/2005 2 - Rash TRILEPTAL (OXCARBAZEPINE) 12/16/2005 ZOMIG (ZOLMITRIPTAN) 12/16/2005 ZYPREXA (OLANZAPINE) 12/16/2005 Date Reviewed: 02/24/2025 Reviewed by: Hernan Lizama, LAVON - Fully Assessed Prescriptions as of 05/23/2025 - mesalamine (CANASA) 1,000 mg suppository 1 suppository by RECTAL route daily at bedtime. - aspirin, enteric coated (ASPIRIN, ENTERIC COATED) 81 mg EC tablet Take 1 tablet by mouth once daily. - lamoTRIgine (LAMICTAL) 200 mg tablet Take 1 tablet by mouth daily at bedtime. Take with 1 tablet of Lamotrigine 25 mg for combined dose of 225 mg. - lamoTRIgine (LAMICTAL) 25 mg tablet Take 1 tablet by mouth daily at bedtime. Take with 1 tablet of Lamotrigine 200 mg for a combined total dose of 225 mg. - melatonin 3 mg tablet Take 1 tablet by mouth daily at bedtime. Take 1-2 hours before bedtime. - PRISTIQ 100 mg 24 hr tablet Take 100 mg by mouth once daily. - lubiprostone (AMITIZA) 24 mcg capsule Take 1 capsule by mouth two times a day with meals. - estradiol (ESTRACE) 0.01 % (0.1 mg/gram) vaginal cream APPLY A PEA SIZED AMOUNT TO LOWER VAGINA AT BEDTIME TWICE WEEKLY - oxybutynin XL (DITROPAN XL) 5 mg 24 hr tablet Take 1 tablet by mouth once daily. - atorvastatin (LIPITOR) 20 mg tablet Take 20 mg by mouth once daily. - QUEtiapine (SEROQUEL) 50 mg tablet Take 1 tablet by mouth daily at bedtime. - lansoprazole (PREVACID) 30 mg capsule Take 30 mg by mouth once daily. - buPROPion SR (WELLBUTRIN SR) 100 mg 12 hr tablet Take 100 mg by mouth every morning. Facility-Administered Medications as of 05/23/2025 - onabotulinum toxin type A 100 Units injection (BOTOX) - onabotulinum toxin type A 100 Units injection (BOTOX) Normal [facility] 94on 04-19-2025 94 Outpatient [facility] Group Therapy Documentation Program: Psychiatric Intensive Outpatient ProgramGroup Type: Psychiatric IOP Group Date: 04/19/2025 Facilitators: Alejandra Mead [facility] Department[facility] Psych IOP Group No: 1 Start Time: 9:00 No. of Participants: 9 End Time: 9:50 Group Topic: Setting up a good night of sleep Summary of Group Activity: Sleep hygiene Patient's level of participation in group process: Engaged in group process Therapeutic Intervention utilized with Patient: Psychoeducation Patient's Response to Intervention: Treatment plan reviewed and depression and anxiety scales updated. Pt said that she was looking forward to doing some mowing today with the nice weather. Pt said that she was wanting her stomach to feel better. Mental Status Exam: Affect and Mood: depressed Behavior: Cooperative, Engaging, and Interactive Cognition: Intact and Oriented X4 Additional comments: Progress Towards Goals: Moderate Next Step(s): Continue with current services Additional Comments (optional): Group No: 2 Start Time: 10:00 No. of Participants: 8 End Time: 10:50 Group Topic: barriers to sleep Summary of Group Activity: Identify things that get in the way of a good night of sleep Patient's level of participation in group process: Engaged in group process Therapeutic Intervention utilized with Patient: Psychoeducation Patient's Response to Intervention: Pt shared their preferences related to sleep. Pt shared that she believes that he sleep is pretty good. Pt was wondering if it were normal to want to take a nap when she came home from [place]. Mental Status Exam: Affect and Mood: appropriate and depressed Behavior: Cooperative, Engaging, and Interactive Cognition: Intact and Oriented X4 Additional comments: Progress Towards Goals: Moderate Next Step(s): Continue with current services Additional Comments (optional): Group No: 3 Start Time: 11:00 No. of Participants: 8 End Time: 11:50 Group Topic: Skill implementation Summary of Group Activity: Napping, gratitude, Patient's level of participation in group process: Engaged in group process Therapeutic Intervention utilized with Patient: Psychoeducation Patient's Response to Intervention: Pt commented about naps. Pt shared that she was trying to exercise radical acceptance and was having difficulty accepting that she was not in more control than she was and that others were not responding and she was helpless to change frederick. Pt was tearful and open. Pt shared their gratitude with the group and said that they were grateful for 90 degree weather. Mental Status Exam: Affect and Mood: anxious and depressed Behavior: Cooperative and Interactive Cognition: Intact and Oriented X4 Additional comments: Progress Towards Goals: Moderate Next Step(s): Continue with current services Additional Comments (optional): Normal [facility] Echocardiogram study reportO rdered By: Nelda Colon on 04-19-2025 Study report [facility] [address] [place] [address] Echo Complete 04/14/25 1023 MR#: [id number] Acct: [id number] Name: GISELA TURNER Rep #:[id number] : 1970 54 From: Nelda Colon MD Attending Dr: HERNÁN Mccollum Status: REG CLI Ordering Dr: Delores Burnett Date: 04/14/25 Location: [facility] Sex: F C Admitted: Reason For Study Reason For Study: DYSPNEA Procedure This was a 2D Doppler, Color Flow transthoracic echocardiogram. Exam performed in department. Left Ventricle Normal LV size. Mild concentric left ventricular hypertrophy. The LV systolic function is normal. EF is 65 %. Stage 1 diastolic dysfunction. Right Ventricle Normal right ventricle. Atria The left and right atria are normal. Mitral Valve Mild diffuse mitral valve thickening. Trivial mitral valve insufficiency. Tricuspid Valve Mild tricuspid valve insufficiency. Normal pulmonary artery pressure. Aortic Valve Trisinus/trileaflet aortic valve. Pulmonic Valve The pulmonic valve is not well visualized. Great Vessels Normal sized aortic root. Pericardium/Pleural No pericardial effusion. MMode/2D Measurements & Calculations LVIDd: 3.5 cm IVSd: 1.2 cm LVOT diam: 2.0 cm LVIDs: 2.4 cm LVPWd: 1.4 cm LVOT area: 3.1 cm2 RVDd: 2.7 cm FS: 29.6 % Ao root diam: 3.3 cm LAV(MOD-bp): 31.6 ml LVAd ap4: 21.0 cm2 LAV(MOD-bp) Indexed: 19.0 ml/m2 LVLd ap4: 7.2 cm LAV(MOD-sp2): 22.3 ml EDV(MOD-sp4): 51.2 ml LAV(MOD-sp4): 42.7 ml EDV(sp4-el): 52.5 ml LVAs ap4: 11.4 cm2 LVLs ap4: 5.5 cm ESV(MOD-sp4): 20.2 ml ESV(sp4-el): 20.0 ml EF(MOD-sp4): 60.5 % EF(sp4-el): 61.8 % SV(MOD-sp4): 31.0 ml SV(sp4-el): 32.4 ml LA A4 area: 15.5 cm2 SI(MOD-sp4): 18.7 ml/m2 LA dimension(2D): 2.9 cm RA A4 area: 9.3 cm2 Time Measurements MV dec time: 0.21 sec Doppler Measurements & Calculations MV E max juliana: 90.8 cm/sec Lat Peak E' Juliana: 10.6 cm/sec Med Peak E' Juliana: 8.6 cm/sec MV A max juliana: 80.6 cm/sec E/E' lat: 8.5 E/E' med: 10.5 MV E/A: 1.1 MV V2 max: 99.4 cm/sec Ao V2 max: 112.7 cm/sec MV max P.0 mmHg MV dec slope: 435.9 cm/sec2 Ao max P.1 mmHg MV V2 mean: 59.9 cm/sec Ao V2 mean: 85.0 cm/sec MV mean P.7 mmHg Ao mean P.2 mmHg MV V2 VTI: 28.4 cm Ao V2 VTI: 25.6 cm AV (velocity ratio): 0.96 MVA(VTI): 2.7 cm2 LUNA(I,D): 3.0 cm2 LUNA(V,D): 3.1 cm2 LV V1 max: 110.8 cm/sec SV(LVOT): 77.4 ml PA V2 max: 90.7 cm/sec LV V1 max P.9 mmHg PA V2 mean: 68.8 cm/sec LV V1 mean P.9 mmHg LV V1 mean: 80.0 cm/sec LV V1 VTI: 24.7 cm TR max juliana: 243.7 cm/sec TR max P.8 mmHg ECHO/Echo Complete Interpretation Summary The LV systolic function is normal. EF is 65 %. Stage 1 diastolic dysfunction. Mild diffuse mitral valve thickening. Mild tricuspid valve insufficiency. Ordering Physician: Delores Burnett Referring Physician: Delores Burnett Performed By: Susan Hernandezh and Student 04/19/25 1047 Date _ Nelda Colon MD CC: Dr. Sumanth Krause MD; HERNÁN Mccollum ~ Date Dictated: 04/14/25 1023 Date Transcribed: 04/19/25 1047 Director Global Development: Akhil [facility] Work Phone: 94on 04-18-2025 94 Outpatient [facility] Group Therapy Documentation Program: Psychiatric Intensive Outpatient ProgramGroup Type: Psychiatric IOP Group Date: 04/18/2025 Facilitators: Alejandra Mead [facility] Department: [facility] Psych IOP Group No: 1 Start Time: 9:00 No. of Participants: 9 End Time: 9:50 Group Topic: Skill implementation Summary of Group Activity: Check ins; anxiety and depression Patient's level of participation in group process: Engaged in group process Therapeutic Intervention utilized with Patient: Building rapport and engagement Patient's Response to Intervention: Pt shared about how it was difficult during her weekend. Pt explained how she is feeling undervalued and taken for granted. Pt shared about how her is not connected to her and farms 09/06. Pt said that she missed out on time with her daughter who was in town visiting. Pt said that she felt like cutting but did not. Pt said that she does not feel fulfilled in taking care of others. Mental Status Exam: Affect and Mood: depressed Behavior: Engaging Cognition: Intact and Oriented X4 Additional comments: Progress Towards Goals: Moderate Next Step(s): Continue with current services Additional Comments (optional): Group No: 2 Start Time: 10:00 No. of Participants: 9 End Time: 10:50 Group Topic: Skill implementation Summary of Group Activity: Depression and bipolar Patient's level of participation in group process: Engaged in group process Therapeutic Intervention utilized with Patient: Psychoeducation Patient's Response to Intervention: Pt shared of her experience with depression and bipolar and anxiety. Pt remained focused and paying attention. Mental Status Exam: Affect and Mood: depressed Behavior: Cooperative Cognition: Intact and Oriented X4 Additional comments: Progress Towards Goals: Moderate Next Step(s): Continue with current services Additional Comments (optional): [facility] 94 [facility]patient [facility] Group Therapy Documentation Program: Psychiatric Intensive Outpatient ProgramGroup Type: Psychiatric IOP Group Date: 04/18/2025 Facilitators: CLYDE Llanes Department: [facility] Psych IOP Group No: 3 Start Time: 11:00 AM No. of Participants: 9 End Time: 12:00 PM Group Topic: Art Therapy Summary of Group Activity: Facilitated group: [place] Art as Healthy coping Mechanism. Therapist facilitated group discussion of art and mindfulness as a healthy coping mechanism using art quote prompts. Therapist educated group on art of [place] and facilitated art therapy task: make zentangle art to music. Therapist facilitated processing of [place] art making process. Patient's level of participation in group process: Engaged in group art process and Less interactive with other group members Therapeutic Intervention utilized with Patient: Facilitated group: [place] Art as Healthy coping Mechanism. Therapist facilitated group discussion of art and mindfulness as a healthy coping mechanism using art quote prompts. Therapist educated group on art of [place] and facilitated art therapy task: make zentangle art to music. Therapist facilitated processing of [place] art making process. Patient's Response to Intervention: Patient did not engage in group discussion on mindfulness and art as a healthy coping mechanism. Patient did actively engage in creating zentangle art to music. Patient declined processe art making experience and completed [place] art. Mental Status Exam: Affect and Mood: closed / guarded Behavior: Pleasant, Cooperative, Passive, and Guarded Cognition: Intact Additional comments: None Progress Towards Goals: Moderate Next Step(s): Continue with current services Additional Comments (optional): Patient continues to need this level of care as patient reports ongoing symptoms severity that impedes patient's ability to meet demands of ADLS. [facility] 94on 04-15-2025 94 Outpatient [facility] Group Therapy Documentation Program: Psychiatric Intensive Outpatient ProgramGroup Type: Psychiatric IOP Group Date: 04/15/2025 Facilitators: CLYDE Coombs Department: [facility] Psych IOP Group No: 1 Start Time: 9:00 No. of Participants: 10 End Time: :50 Group Topic: Skill implementation Summary of Group Activity: Anger Patient's level of participation in group process: Engaged in group process Therapeutic Intervention utilized with Patient: Psychoeducation Patient's Response to Intervention: Pt was present and on time for session. Pt shared pet peeves. Pt discussed the sign on her door about taking shoes off and how her son did not do this and how she felt disrespected by this action. Mental Status Exam: Affect and Mood: anxious and depressed Behavior: Cooperative, Engaging, and Interactive Cognition: Intact and Oriented X4 Additional comments: Progress Towards Goals: Minimal Next Step(s): Continue with current services Additional Comments (optional): Group No: 2 Start Time: 10:00 No. of Participants: 10 End Time: :50 Group Topic: Skill implementation Summary of Group Activity: Anger Patient's level of participation in group process: Engaged in group process Therapeutic Intervention utilized with Patient: Psychoeducation Patient's Response to Intervention: Pt was demonstrating that they were following along in session. Pt had hand out and was paying attention to this and topic. Mental Status Exam: Affect and Mood: depressed Behavior: Cooperative and Interactive Cognition: Intact Additional comments: Progress Towards Goals: Minimal Next Step(s): Continue with current services Additional Comments (optional): Group No: 3 Start Time: 11:00 No. of Participants: 10 End Time: :50 Group Topic: Skill implementation Summary of Group Activity: Conflict, co-dependency; weekend planning Patient's level of participation in group process: Engaged in group process Therapeutic Intervention utilized with Patient: Psychoeducation Patient's Response to Intervention: Pt shared about her personal struggles in this area. Pt was open and willing to disclose. Pt said that their plan for the weekend was as follows: mowing hers and the property of others. Pt said that she did not have anything fun planned. Mental Status Exam: Affect and Mood: depressed Behavior: Interactive Cognition: Intact and Oriented X4 Additional comments: Progress Towards Goals: Minimal Next Step(s): Continue with current services Additional Comments (optional): [facility] [id number] 04-14-2025 [id number] Pt had an excused absence on this date as she was attending another medical appointment. Normal [facility] Echo Completeon 04-14-2025 Echo Complete [facility] [place] [address] Echo Complete 04/14/25 1023 MR#: [id number] Acct: [id number] Name: GISELA TURNER Rep #: [id number] : 1970 54 From: Nelda Colon MD Attending Dr: HERNÁN Mccollum Status: REG CLI Ordering Dr: Delores Burnett PA Date: 03/18 08/11 Location: [facility] Sex: F C Admitted: Reason For Study Reason For Study: DYSPNEA Procedure This was a 2D Doppler, Color Flow transthoracic echocardiogram. Exam performed in department. Left Ventricle Normal LV size. Mild concentric left ventricular hypertrophy. The LV systolic function is normal. EF is 65 %. Stage 1 diastolic dysfunction. Right Ventricle Normal right ventricle. Atria The left and right atria are normal. Mitral Valve Mild diffuse mitral valve thickening. Trivial mitral valve insufficiency. Tricuspid Valve Mild tricuspid valve insufficiency. Normal pulmonary artery pressure. Aortic Valve Trisinus/trileaflet aortic valve. Pulmonic Valve The pulmonic valve is not well visualized. Great Vessels Normal sized aortic root. Pericardium/Pleural No pericardial effusion. MMode/2D Measurements Calculations LVIDd: 3.5 cm IVSd: 1.2 cm LVOT diam: 2.0 cm LVIDs: 2.4 cm LVPWd: 1.4 cm LVOT area: 3.1 cm2 RVDd: 2.7 cm FS: 29.6 % Ao root diam: 3.3 cm LAV(MOD-bp): 31.6 ml LVAd ap4: 21.0 cm2 LAV(MOD-bp) Indexed: 19.0 ml/m2 LVLd ap4: 7.2 cm LAV(MOD-sp2): 22.3 ml EDV(MOD-sp4): 51.2 ml LAV(MOD-sp4): 42.7 ml EDV(sp4-el): 52.5 ml LVAs ap4: 11.4 cm2 LVLs ap4: 5.5 cm ESV(MOD-sp4): 20.2 ml ESV(sp4-el): 20.0 ml EF(MOD-sp4): 60.5 % EF(sp4-el): 61.8 % SV(MOD-sp4): 31.0 ml SV(sp4-el): 32.4 ml LA A4 area: 15.5 cm2 SI(MOD-sp4): 18.7 ml/m2 LA dimension(2D): 2.9 cm RA A4 area: 9.3 cm2 Time Measurements MV dec time: 0.21 sec Doppler Measurements Calculations MV E max juliana: 90.8 cm/sec Lat Peak E' Juliana: 10.6 cm/sec Med Peak E' Juliana: 8.6 cm/sec MV A max juliana: 80.6 cm/sec E/E' lat: 8.5 E/E' med: 10.5 MV E/A: 1.1 MV V2 max: 99.4 cm/sec Ao V2 max: 112.7 cm/sec MV max P.0 mmHg MV dec slope: 435.9 cm/sec2 Ao max P.1 mmHg MV V2 mean: 59.9 cm/sec Ao V2 mean: 85.0 cm/sec MV mean P.7 mmHg Ao mean P.2 mmHg MV V2 VTI: 28.4 cm Ao V2 VTI: 25.6 cm AV (velocity ratio): 0.96 MVA(VTI): 2.7 cm2 LUNA(I,D): 3.0 cm2 LUNA(V,D): 3.1 cm2 LV V1 max: 110.8 cm/sec SV(LVOT): 77.4 ml PA V2 max: 90.7 cm/sec LV V1 max P.9 mmHg PA V2 mean: 68.8 cm/sec LV V1 mean P.9 mmHg LV V1 mean: 80.0 cm/sec LV V1 VTI: 24.7 cm TR max juliana: 243.7 cm/sec TR max P.8 mmHg ECHO/Echo Complete Interpretation Summary The LV systolic function is normal. EF is 65 %. Stage 1 diastolic dysfunction. Mild diffuse mitral valve thickening. Mild tricuspid valve insufficiency. Ordering Physician: Delores Burnett Referring Physician: Delores Burnett Performed By: Veronica Hernandez and Student 04/19/25 1047 Date Nelda Colon MD CC: Dr. Sumanth Krause MD; HERNÁN Mccollum Date Dictated: 04/14/25 1023 Date Transcribed: 04/19/25 104 Director Global Development: Signed [facility] [id number] 04-12-2025 [id number] Admission Certificat ion I certify that this patient would require a higher level of care if intensive outpatient program (IOP) services were not provided, that the patient needs a minimum of 9 hours of IOP services per week, that the services will be furnished under the care of a physician, and under a written plan of treatment authorized and approved by the physician. [facility] [id number] 04-12-2025 [id number] OUTPATIENT [facility] PHYSICIAN ORDERS Admit to: [] Partial Hospitalization Program [x] Psych Intensive Outpatient Program [] Addiction Medicine Intensive Outpatient Program []Relapse Prevention - Psych [] Recovery Readiness []Relapse Prevention - Addiction [] [facility] Aftercare with individual sessions [] Other: 2. Client to attend: [x]Day []Evening []Afternoon # of sessions per week: 3 Anticipated Length of Stay: 20 Sessions 3. This level of care is needed: [x] To reduce or control psychiatric symptoms to prevent relapse of hospitalization [x] To improve Client?s level of functioning [] To maintain current level of functioning [] To accurately diagnose client condition [x] Because there is a reasonable expectation that improvement will result with this level of care 4. 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 Allergies: Imitrex [sumatriptan], Amoxicillin, Cat dander, Diphenhydramine, Mold [molds & smuts], Moxifloxacin, Trileptal [oxcarbazepine], Zomig [zolmitriptan], Zyprexa [olanzapine], and Bactrim [sulfamethoxazole-trime thoprim] 6. Client to Attend and Participate in the following activities: [x] Group Therapy [x] Education relevant to client condition [x] Individualized Activity Therapy [x] Individual Therapy as needed [x] Family Therapy as needed [] Other (please identify): 7. Lab Work: [] CBC [] TSH [] U/A [] Urine HcG<55 with intact uterus [] GTT [] Valproic Acid Level on DATE [] Depakote Level on NA [] [place] Level on DATE [] Other: NA 8. Urine Drug Screening: [] on admission [] random [] frequency (identify): for the following substances: amphetamines, barbiturates, benzodiaepines, cocaine, methadone, opiates, oxycodone/oxymorphone, PCP, buprenorphine screen, THC-MTTHC, fentanyl and ethanol. Rationale for UDS: [] Monitoring sobriety/level of use [] Treatment compliance [] Behavioral Indicators [] Other (identify): 9. Breathalyzer: [] on admission [] random [] frequency (identify): 9. Additional: 10. Physician: [facility] 94on 04-12-2025 94 Outpatient [facility] Group Therapy Documentation Program: Psychiatric Intensive Outpatient ProgramGroup Type: Psychiatric IOP Group Date: 04/12/2025 Facilitators: CLYDE Coombs Department: [facility] Psych IOP Group No: 1 Start Time: 9:00 No. of Participants: 9 End Time: 9:50 Group Topic: Skill implementation Summary of Group Activity: Check ins; personality styles Patient's level of participation in group process: Engaged in group process Therapeutic Intervention utilized with Patient: Building rapport and engagement Patient's Response to Intervention: Pt came in and met group and was able to comment and become engaged. Pt continued to pay attention and follow along as others were responding to the check in. Mental Status Exam: Affect and Mood: appropriate Behavior: Cooperative Cognition: Intact Additional comments: Progress Towards Goals: None Next Step(s): Continue with current services Additional Comments (optional): Group No: 2 Start Time: 10:00 No. of Participants: 10 End Time: 10:50 Group Topic: Skill implementation Summary of Group Activity: Change; behavioral activation Patient's level of participation in group process: Engaged in group process Therapeutic Intervention utilized with Patient: Modeling/skills training Patient's Response to Intervention: Pt met on break and was acclimated to the new group. Approach was explained and orientation occurred. Mental Status Exam: Affect and Mood: anxious Behavior: Cooperative Cognition: Intact and Oriented X4 Additional comments: Progress Towards Goals: None Next Step(s): Continue with current services Additional Comments (optional): Group No: 3 Start Time: 11:00 No. of Participants: 9 End Time: 11:50 Group Topic: Skill implementation Summary of Group Activity: Motivation and willingness; turning the mind Patient's level of participation in group process: Engaged in group process Therapeutic Intervention utilized with Patient: Dialectical Behavioral Therapy skills (DBT) Patient's Response to Intervention: Pt was engaged and active and seemed to be comfortable in sharing. Pt was interactive with others and said that she did not like the word being discussed in the next session. Mental Status Exam: Affect and Mood: brightens with interaction Behavior: Interactive Cognition: Intact and Oriented X4 Additional comments: Progress Towards Goals: Moderate Next Step(s): Continue with current services Additional Comments (optional): [facility] Behavioral Health Treatment Planon 04-12-2025 Behavioral Health Treatment Plan Family Members/Friends Who Can Be Involved In Treatment Name Relationship Release obtained? (if no, explain) Sandoval Lauer spouse Services Service(s) Provided (if group, include name) Primary Provider Frequency Date Added Discharge Date Psych IOP SUSI Breen 3 hours/day, 3 days /week 04/12/2025 Psych[address] Evaluation and Monitoring Dr. Sumanth Cameron Upon opening and as needed and possible closing 04/12/2025 Individual and/or Family Therapy SUSI Breen As needed or requested. 04/12/2025 Consideration for Discharge: Improve Level of Functioning, Control/Maintain Symptoms, and Decrease Symptoms [facility] CNCOon 04-12-2025 CNCO Letter Text [facility] Progress Noteon 04-12-2025 Progress Note Admission/Orientatio n Note Psychiatric IOP Date: 04/12/2025 Start Time: 950 End Time: 1000 Pt admitted to Psychiatric IOP on this date. She reported understanding and agreement with Pt rights/responsibilities , group rules/expectations, and confidentiality. She signed all consents for Tx. Reviewed presenting problem and goals for Tx with the Pt. Treatment Plan developed with the Pt and opened. Pt was oriented to the unit and daily group paperwork. She is scheduled to begin in the group this morning at 9:00am. Signature: @ELYSIA@ [facility] Comprehensive Metabolic Prof ilon 04-07-2025 Albumin [Mass/Vol] 4.0 g/dL Normal 3.5-5.0 [facility] Comment on above: Order Comment: Order Date: 04/06/25Order Info: [id number] - CMPOrder Info: [id number] - LIPID Performed By: #### L 100.0100, L500.4050, L500.4100 ####[facility] [address] [place], [place], [address] Albumin/Globulin [Mass ratio] 1.2 {ratio} Normal 0.9-2.4 [facility] Comment on above: Order Comment: Order Date: 04/06/25Order Info: [id number] - CMPOrder Info: [id number] - LIPID Performed By: #### L 100.0100, L500.4050, L500.4100 ####[facility] [address] [place], [address] ALK PHOS 131 U/L High 35-104 [facility] Comment on above: Order Comment: Order Date: 04/06/25Order Info: 0786-1 - CMPOrder Info: [id number] - LIPID Performed By: #### L 100.0100, L500.4050, L500.4100 ####[facility] [address] [place], [address] ALT [Catalytic activity/Vol] 32 U/L Normal <=34 [facility] Comment on above: Order Comment: Order Date: 04/06/25Order Info: [id number] - CMPOrder Info: [id number] - LIPID Performed By: #### L 100.0100, L500.4050, L500.4100 ####[facility] [address] [place], [address] AST [Catalytic activity/Vol] 34 U/L High <=31 [facility] Comment on above: Order Comment: Order Date: 04/06/25Order Info: 0786-1 - CMPOrder Info: [id number] - LIPID Performed By: #### L 100.0100, L500.4050, L500.4100 ####[facility] [address] [place], [address] Bilirubin [Mass/Vol] 0.48 mg/dL Normal 0.00-1.30 [facility] Comment on above: Order Comment: Order Date: 04/06/25Order Info: 0786-1 - CMPOrder Info: [id number] - LIPID Performed By: #### L 100.0100, L500.4050, L500.4100 ####[facility] [address] [place], [address] BUN/CRE 14.6 RATIO Normal 10-20 [facility] Comment on above: Order Comment: Order Date: 04/06/25Order Info: 0786-1 - CMPOrder Info: [id number] - LIPID Performed By: #### L 100.0100, L500.4050, L500.4100 ####[facility] [address] [place], [address] Calcium [Mass/Vol] 8.7 mg/dL Normal 7.6-11.0 [facility] Comment on above: Order Comment: Order Date: 04/06/25Order Info: [id number] - CMPOrder Info: [id number] - LIPID Performed By: #### L 100.0100, L500.4050, L500.4100 ####[facility] [address] [place], [address] Chloride [Moles/Vol] 104 mmol/L Normal 98-108 [facility] Comment on above: Order Comment: Order Date: 04/06/25Order Info: [id number] - CMPOrder Info: [id number] - LIPID Performed By: #### L 100.0100, L500.4050, L500.4100 ####[facility] [address] [place], [address] CO2 [Moles/Vol] 24.6 mmol/L Normal 21.0-32.0 [facility] Comment on above: Order Comment: Order Date: 04/06/25Order Info: 0786- - CMPOrder Info: [id number] - LIPID Performed By: #### L 100.0100, L500.4050, L500.4100 ####[facility] [address] [place], [address] Creatinine [Mass/Vol] 0.81 mg/dL Normal 0.70-1.20 [facility] Comment on above: Order Comment: Order Date: 04/06/25Order Info: 0786-1 - CMPOrder Info: [id number] - LIPID Performed By: #### L 100.0100, L500.4050, L500.4100 ####[facility] [address] [place], [address] GAP 11 Normal 5-15 [facility] Comment on above: Order Comment: Order Date: 04/06/25Order Info: 0786-1 - CMPOrder Info: [id number] - LIPID Performed By: #### L 100.0100, L500.4050, L500.4100 ####[facility] [address] [place], [address] GFR/1.73 sq M.predicted among non-blacks MDRD (S/P/Bld) [Vol rate/Area] 87 mL/min/{1.73_m2} Normal >60 [facility] Comment on above: Order Comment: Order Date: 04/06/25Order Info: 0786- - CMPOrder Info: [id number] - LIPID Result Comment: mL/m in/1.73m2 CKD-EPI Creatinine Equation (2020) Performed By: #### L 100.0100, L500.4050, L500.4100 ####[facility] [address] [place], [address] Globulin (S) [Mass/Vol] 3.3 g/dL Normal 2.2-4.2 [facility] Comment on above: Order Comment: Order Date: 04/06/25Order Info: 0786 - CMPOrder Info: [id number] - LIPID Performed By: #### L 100.0100, L500.4050, L500.4100 ####[facility] [address] [place], [address] Glucose [Mass/Vol] 121 mg/dL High 70-99 [facility] Comment on above: Order Comment: Order Date: 04/06/25Order Info: 0786- - CMPOrder Info: [id number] - LIPID Performed By: #### L 100.0100, L500.4050, L500.4100 ####[facility] [address] [place], [address] Potassium [Moles/Vol] 4.0 mmol/L Normal 3.3-5.1 [facility] Comment on above: Order Comment: Order Date: 04/06/25Order Info: 0786- - CMPOrder Info: [id number] - LIPID Performed By: #### L 100.0100, L500.4050, L500.4100 ####[facility] [address] [place], [address] Sodium [Moles/Vol] 140 mmol/L Normal 133-145 [facility] Comment on above: Order Comment: Order Date: 04/06/25Order Info: 0786-1 - CMPOrder Info: [id number] - LIPID Performed By: #### L 100.0100, L500.4050, L500.4100 ####[facility] [address] [place], [address] T PROT 7.3 g/dL Normal 5.9-8.4 [facility] Comment on above: Order Comment: Order Date: 04/06/25Order Info: 0786- - CMPOrder Info: [id number] - LIPID Performed By: #### L 100.0100, L500.4050, L500.4100 ####[facility] [address] [place], [address] Urea nitrogen [Mass/Vol] 12 mg/dL Normal 4-19 [facility] Comment on above: Order Comment: Order Date: 04/06/25Order Info: 0786- - CMPOrder Info: [id number] - LIPID Performed By: #### L 100.0100, L500.4050, L500.4100 ####[facility] [address] [place], [address] Lipid Profileon 04-07-2025 CHOL:HDL 2.91 Normal [facility] Comment on above: Order Comment: Order Date: 04/06/25Order Info: 0786-1 - CMPOrder Info: [id number] - LIPID Performed By: #### L 100.0100, L500.4050, L500.4100 ####[facility] [address] [place], [address] Cholesterol [Mass/Vol] 167 mg/dL Normal <=200 [facility] Comment on above: Order Comment: Order Date: 04/06/25Order Info: 0786-1 - CMPOrder Info: [id number] - LIPID Result Comment: Chol esterol level, Desirable <200 mg/dL Borderline high cholesterol 200-239 mg/dL High cholesterol >=240 mg/dL Recommendations of the NCEP Adult Treatment Panel for the following risk-cutoff thresholds for the [place] population. Performed By: #### L 100.0100, L500.4050, L500.4100 ####[facility] [address] [place], [address] Cholesterol in HDL [Mass/Vol] 57 mg/dL Normal [facility] Comment on above: Order Comment: Order Date: 04/06/25Order Info: 0786-1 - CMPOrder Info: [id number] - LIPID Result Comment: Jeanette onal Cholesterol Education Program (NCEP) guidelines: <40 mg/dL: Low HDL-cholesterol (major risk factor for CHD) >= 60 mg/dL: High HDL-cholesterol (negative risk factor for CHD) HDL-cholesterol is affected by a number of factors, e.g. smoking, exercise, hormones, sex and age. Performed By: #### L 100.0100, L500.4050, L500.4100 ####[facility] [address] [place], [address] Cholesterol in LDL [Mass/Vol] 81 mg/dL Normal [facility] Comment on above: Order Comment: Order Date: 04/06/25Order Info: 0786-1 - CMPOrder Info: [id number] - LIPID Result Comment: Bord sbucwe=759-310 mg/dL Higher Idqe=371 mg/dL or greater Performed By: #### L 100.0100, L500.4050, L500.4100 ####[facility] [address] [place], [address] Cholesterol in VLDL [Mass/Vol] 29 mg/dL Normal 5-40 [facility] Comment on above: Order Comment: Order Date: 04/06/25Order Info: 0786-1 - CMPOrder Info: [id number] - LIPID Performed By: #### L 100.0100, L500.4050, L500.4100 ####[facility] [address] [place], [address] Triglyceride [Mass/Vol] 145 mg/dL Normal [facility] Comment on above: Order Comment: Order Date: 04/06/25Order Info: 0786-1 - CMPOrder Info: [id number] - LIPID Result Comment: The drugs N-Acetylcysteine and Metamizole may falsely depress this assay. Normal range: <150 mg/dL Borderline High: 150-199 mg/dL High: 200-499 mg/dL Very High: >500 mg/dL Performed By: #### L 100.0100, L500.4050, L500.4100 ####[facility] [address] [place], [address] Absolute lymphocyte countOrd ered By: Sumanth Krause on 04-06-2025 Lymphocytes Auto (Unsp spec) [#/Vol] 1.99 10*3/uL 0.83-4.51 [facility] Absolute neutrophil countOrd ered By: Sumanth Krause on 04-06-2025 Neutrophils (Bld) [#/Vol] 2.2 10*3/uL 2.0-7.7 [facility] Anion gap in Serum or Plasma Ordered By: Sumanth Krause on 04-06-2025 Anion gap [Moles/Vol] 11 mmol/L 5- [facility] Automated lymphocyte count a s percentage of total leukocytesOrdered By: Sumanth Krause on 04-06-2025 Lymphocytes/100 WBC Auto (Unsp spec) 38.8 % - [facility] BUN/creatinine ratioOrdered By: Sumanth Krause on 04-06-2025 Urea nitrogen/Creatinine [Mass ratio] 14.6 mg/mg 10-20 [facility] Basophil percentageOrdered B y: Sumanth Krause on 04-06-2025 Basophils/100 WBC (Bld) 1.4 % High 0-1 [facility] Bilirubin, totalOrdered By: Sumanth Krause on 04-06-2025 Bilirubin [Mass/Vol] 0.48 mg/dL 0.00-1.30 [facility] CBC W/Diff, Automatedon 03-18 Absolute Lymph 1.99 X10 3/uL Normal 0.83-4.51 [facility] Comment on above: Order Comment: Order Date: 04/06/25Order Info: 0184-1 - CBCD Performed By: #### L 100.0100, L500.4050, L500.4100 ####[facility] [address] [place], [address] Absolute Neut 2.2 X10 3/uL Normal 2.0-7.7 [facility] Comment on above: Order Comment: Order Date: 04/06/25Order Info: 0184-1 - CBCD Performed By: #### L 100.0100, L500.4050, L500.4100 ####[facility] [address] [place], [address] Basophils/100 WBC (Bld) 1.4 % High 0-1 [facility] Comment on above: Order Comment: Order Date: 04/06/25Order Info: 0184-1 - CBCD Performed By: #### L 100.0100, L500.4050, L500.4100 ####[facility] [address] [place], [address] Eosinophils/100 WBC (Bld) 6.6 % High 0-5 [facility] Comment on above: Order Comment: Order Date: 04/06/25Order Info: 0184-1 - CBCD Performed By: #### L 100.0100, L500.4050, L500.4100 ####[facility] [address] [place], [address] Erythrocyte distribution width (RBC) [Ratio] 12.7 % Normal 11.6-14.6 [facility] Comment on above: Order Comment: Order Date: 04/06/25Order Info: 0184-1 - CBCD Performed By: #### L 100.0100, L500.4050, L500.4100 ####[facility] [address] [place], [address] Hematocrit (Bld) [Volume fraction] 38.4 % Normal 37-47 [facility] Comment on above: Order Comment: Order Date: 04/06/25Order Info: 018- - CBCD Performed By: #### L 100.0100, L500.4050, L500.4100 ####[facility] [address] [place], [address] Hemoglobin (Bld) [Mass/Vol] 12.9 g/dL Normal 12.0-15.0 [facility] Comment on above: Order Comment: Order Date: 04/06/25Order Info: 018- - CBCD Performed By: #### L 100.0100, L500.4050, L500.4100 ####[facility] [address] [place], [address] IG% 0.200 Normal 0.0-0.9 [facility] Comment on above: Order Comment: Order Date: 04/06/25Order Info: 018- - CBCD Result Comment: IG% - Immature Granulocytes (promyelocytes, myelocytes and metamyelocytes) > 1% indicates that a LEFT SHIFT is Present. Performed By: #### L 100.0100, L500.4050, L500.4100 ####[facility] [address] [place], [address] Lymphocytes/100 WBC (Bld) 38.8 % Normal 19-41 [facility] Comment on above: Order Comment: Order Date: 04/06/25Order Info: 018- - CBCD Performed By: #### L 100.0100, L500.4050, L500.4100 ####[facility] [address] [place], [address] MCH (RBC) [Entitic mass] 28.7 pg Normal 27.0-32.0 [facility] Comment on above: Order Comment: Order Date: 04/06/25Order Info: 018- - CBCD Performed By: #### L 100.0100, L500.4050, L500.4100 ####[facility] [address] [place], [address] MCHC (RBC) [Mass/Vol] 33.6 g/dL Normal 32-36 [facility] Comment on above: Order Comment: Order Date: 04/06/25Order Info: 0184-1 - CBCD Performed By: #### L 100.0100, L500.4050, L500.4100 ####[facility] [address] [place], [address] MCV (RBC) [Entitic vol] 85.3 fL Normal 81-99 [facility] Comment on above: Order Comment: Order Date: 04/06/25Order Info: 0184-1 - CBCD Performed By: #### L 100.0100, L500.4050, L500.4100 ####[facility] [address] [place], [address] Monocytes/100 WBC (Bld) 9.4 % Normal 0-10 [facility] Comment on above: Order Comment: Order Date: 04/06/25Order Info: 0184-1 - CBCD Performed By: #### L 100.0100, L500.4050, L500.4100 ####[facility] [address] [place], [address] Neutrophils/100 WBC (Bld) 43.6 % Low 47-70 [facility] Comment on above: Order Comment: Order Date: 04/06/25Order Info: 0184-1 - CBCD Performed By: #### L 100.0100, L500.4050, L500.4100 ####[facility] [address] [place], [address] Nucleated RBC (Bld) [#/Vol] 0 10*3/uL Normal 0-5 [facility] Comment on above: Order Comment: Order Date: 04/06/25Order Info: 0184-1 - CBCD Performed By: #### L 100.0100, L500.4050, L500.4100 ####[facility] [address] [place], [address] Platelet mean volume (Bld) [Entitic vol] 8.7 fL Normal 6.2-12.0 [facility] Comment on above: Order Comment: Order Date: 04/06/25Order Info: 018-1 - CBCD Performed By: #### L 100.0100, L500.4050, L500.4100 ####[facility] [address] [place], [address] Platelets (Bld) [#/Vol] 240 10*3/uL Normal 150-450 [facility] Comment on above: Order Comment: Order Date: 04/06/25Order Info: 018- - CBCD Performed By: #### L 100.0100, L500.4050, L500.4100 ####[facility] [address] [place], [address] RBC (Bld) [#/Vol] 4.50 10*6/uL Normal 4.2-5.4 [facility] Comment on above: Order Comment: Order Date: 04/06/25Order Info: 018- - CBCD Performed By: #### L 100.0100, L500.4050, L500.4100 ####[facility] [address] [place], [address] RDW SD 39.2 fl Normal 35.1-43.9 [facility] Comment on above: Order Comment: Order Date: 04/06/25Order Info: 0184-1 - CBCD Performed By: #### L 100.0100, L500.4050, L500.4100 ####[facility] [address] [place], [address] WBC (Bld) [#/Vol] 5.1 10*3/uL Normal 4.4-11.0 [facility] Comment on above: Order Comment: Order Date: 04/06/25Order Info: 0184-1 - CBCD Performed By: #### L 100.0100, L500.4050, L500.4100 ####[facility] [address] [facility] [place], [address] Calculated very low density lipoprotein (VLDL) cholesterol measurementOrdered By: Sumanth Krause on 04-06-2025 Calculated very low density lipoprotein (VLDL) cholesterol measurement 29 mg/dL 5-40 [facility] Carbon dioxide, total [Moles /volume] in Central venous bloodOrdered By: Sumanth Krause on 04-06-2025 CO2 [Moles/Vol] 24.6 mmol/L 21.0-32.0 [facility] Chest PA and Lateralon 04-06 Chest PA and Lateral [facility] [address] [place], [place] [address] Chest PA and Lateral MR#: [id number] Acct: [id number] Name: GISELA TURNER Rep #: [id number] : 1970 F 54 From: Alejandra Malave MD PCP: Dr. Sumanth Krause MD Status: REG CLI Study: Chest PA and Lateral Date of Exam: 04/06/25 Exam# [id number] Ordering Dr: Sumanth Krause MD EXAM: XR Chest, 2 Views CLINICAL INDICATION: CHEST PAIN, SOB TECHNIQUE: Frontal and lateral views of the chest. COMPARISON: No relevant prior studies available. FINDINGS: LUNGS AND PLEURAL SPACES: Pulmonary venous congestion. No consolidation. No pneumothorax. HEART: Unremarkable. No cardiomegaly. MEDIASTINUM: Unremarkable. Normal mediastinal contour. BONES/JOINTS: Unremarkable. No acute fracture. RAD/Chest PA and Lateral IMPRESSION: Pulmonary venous congestion. Reading [facility] CC: Dr. Sumanth Krause MD Director Global Development: Signed Normal [facility] Chloride assayOrdered By: Linda Krause on 04-06-2025 Chloride [Moles/Vol] 104 mmol/L 98-108 [facility] Eosinophil percentageOrdered By: Sumanth Krause on 04-06-2025 Eosinophils/100 WBC (Bld) 6.6 % High 0-5 [facility] Erythrocyte distribution wid th ratioOrdered By: Sumanth Krause on 04-06-2025 Erythrocyte distribution width (RBC) [Ratio] 12.7 % 11.6-14.6 [facility] Erythrocyte distribution wid th standard deviationOrdered By: Sumanth Krause on 04-06-2025 Erythrocyte distribution width (RBC) [Ratio] 39.2 fl 35.1-43.9 [facility] Glomerular filtration rate ( GFR) estimation/1.73 sq m using serum, plasma, or whole bOrdered By: Sumanth Krause on 04-06-2025 GFR/1.73 sq M.predicted among non-blacks MDRD (S/P/Bld) [Vol rate/Area] 87 mL/min/{1.73_m2} >60 [facility] Comment on above: mL/min/1.73m2 CKD-EP I Creatinine Equation (2020) Hematocrit Auto (Bld) [Volum e fraction]Ordered By: Sumanth Krause on 04-06-2025 Hematocrit (Bld) [Volume fraction] 38.4 % 37-47 [facility] Hemoglobin measurementOrdere d By: Sumanth Krause on 04-06-2025 Hemoglobin (Bld) [Mass/Vol] 12.9 g/dL 12.0-15.0 [facility] Immature granulocytes/100 WB C Auto (Bld)Ordered By: Sumanth Krause on 04-06-2025 Immature granulocytes/100 WBC (Bld) 0.200 % 0.0-0.9 [facility] Comment on above: IG% - Immature Granu locytes (promyelocytes, myelocytes and metamyelocytes) > 1% indicates that a LEFT SHIFT is Present. LDL calc ser/plasOrdered By: Sumanth Krause on 04-06-2025 Cholesterol in LDL [Mass/Vol] 81 mg/dL [facility] Comment on above: Rejvpjzqte=279-302 m g/dL & Higher Ofkt=930 mg/dL or greater Laboratory - Chemistry and C hemistry - challengeOrdered By: Sumanth Krause on 04-06-2025 AST [Catalytic activity/Vol] 34 U/L High <32 [facility] MCV (mean corpuscular volume ) determinationOrdered By: Sumanth Krause on 04-06-2025 MCV (RBC) [Entitic vol] 85.3 fL 81-99 [facility] Mean corpuscular hemoglobin (MCH) determinationOrdered By: Sumanth Krause on 04-06-2025 MCH (RBC) [Entitic mass] 28.7 pg 27.0-32.0 [facility] Mean corpuscular hemoglobin concentration (MCHC) determinationOrdered By: Sumanth Krause on 04-06-2025 MCHC (RBC) [Mass/Vol] 33.6 g/dL 32-36 [facility] Mean platelet volume determi nationOrdered By: Sumanth Krause on 04-06-2025 Platelet mean volume (Bld) [Entitic vol] 8.7 fL 6.2-12.0 [facility] Monocyte percentageOrdered B y: Sumanth Krause on 04-06-2025 Monocytes/100 WBC (Bld) 9.4 % 0-10 [facility] Neutrophil percentageOrdered By: Sumanth Krause on 04-06-2025 Neutrophils/100 WBC (Bld) 43.6 % Low 47-70 [facility] Nucleated red blood cell per centageOrdered By: Sumanth Krause on 04-06-2025 Nucleated RBC/100 WBC (Bld) [Ratio] 0 % 0-5 [facility] Platelet countOrdered By: Linda Krause on 04-06-2025 Platelets (Bld) [#/Vol] 240 10*3/uL 150-450 [facility] Potassium measurement (mass/ volume)Ordered By: Sumanth Krause on 04-06-2025 Potassium (Unsp spec) [Mass/Vol] 4.0 mmol/L 3.3-5.1 [facility] RBC Auto (Bld) [#/Vol]Ordere d By: Sumanth Krause on 04-06-2025 RBC (Bld) [#/Vol] 4.50 10*6/uL 4.2-5.4 [facility] Screening total cholesterol/ high density lipoprotein (HDL) cholesterol ratioOrdered By: Sumanth Krause on 04-06-2025 Cholesterol.total/Chol esterol in HDL [Mass ratio] 2.91 {ratio} [facility] Serum creatinine measurement (mass/volume)Ordered By: Sumanth Krause on 04-06-2025 Creatinine [Mass/Vol] 0.81 mg/dL 0.70-1.20 [facility] Serum globulin measurementOr dered By: Sumanth Krause on 04-06-2025 Globulin (S) [Mass/Vol] 3.3 g/dL 2.2-4.2 [facility] Serum glucose measurement (m ass/volume)Ordered By: Sumanth Krause on 04-06-2025 Glucose [Mass/Vol] 121 mg/dL High 70-99 [facility] Serum or plasma alanine aguero otransferase (ALT) measurementOrdered By: Sumanth Krause on 04-06-2025 ALT [Catalytic activity/Vol] 32 U/L <35 [facility] Serum or plasma albumin cassidy urement (mass/volume)Ordered By: Sumanth Krause on 04-06-2025 Albumin [Mass/Vol] 4.0 g/dL 3.5-5.0 [facility] Serum or plasma albumin/glob ulin mass ratioOrdered By: Sumanth Krause on 04-06-2025 Albumin/Globulin [Mass ratio] 1.2 {ratio} 0.9-2.4 [facility] Serum or plasma alkaline adonay sphatase measurementOrdered By: Sumanth Krause on 04-06-2025 ALP [Catalytic activity/Vol] 131 U/L High 35-104 [facility] Serum or plasma calcium cassidy urement (mass/volume)Ordered By: Sumanth Krause on 04-06-2025 Calcium [Mass/Vol] 8.7 mg/dL 7.6-11.0 [facility] Serum or plasma cholesterol in HDL measurement (mass/volume)Ordered By: Sumanth Krause on 04-06-2025 Cholesterol in HDL [Mass/Vol] 57 mg/dL >40 [facility] Comment on above: National Cholesterol Education Program (NCEP) guidelines:<40 mg/dL: Low HDL-cholesterol (major risk factor for CHD)>= 60 mg/dL: High HDL-cholesterol (negative risk factor for CHD)HDL-cholesterol is affected by a number of factors, e.g. smoking, exercise, hormones, sex and age. Serum or plasma cholesterol measurement (mass/volume)Ordered By: Sumanth Krause on 04-06-2025 Cholesterol [Mass/Vol] 167 mg/dL <201 [facility] Comment on above: Cholesterol level, D esirable <200 mg/dLBorderline high cholesterol 200-239 mg/dLHigh cholesterol >=240 mg/dLRecommendations of the NCEP Adult Treatment Panel for the following risk-cutoff thresholds for the [place] population. Serum or plasma urea nitroge n measurement (mass/volume)Ordered By: Sumanth Krause on 04-06-2025 Urea nitrogen [Mass/Vol] 12 mg/dL 4-19 [facility] Sodium levelOrdered By: Sumanth Krause on 04-06-2025 Sodium [Moles/Vol] 140 mmol/L 133-145 [facility] Total proteinOrdered By: Tin Krause on 04-06-2025 Protein [Mass/Vol] 7.3 g/dL 5.9-8.4 [facility] Triglycerides measurementOrd ered By: Sumanth Krause on 04-06-2025 Triglyceride [Mass/Vol] 145 mg/dL <199 [facility] Comment on above: The drugs N-Acetylcy steine and Metamizole may falsely depress this assay. Normal range: <150 mg/dLBorderline High: 150-199 mg/dLHigh: 200-499 mg/dLVery High: >500 mg/dL White blood cell (WBC) count Ordered By: Sumanth Krause on 04-06-2025 WBC (Bld) [#/Vol] 5.1 10*3/uL 4.4-11.0 [facility] [id number] 04-05-2025 [id number] Pt was called on 04/06/2025 and message was left confirming a possible start date. Normal [facility] [id number] 04-04-2025 [id number] Recertification is required on the 18 calendar day after admission and every subsequent 30 days I certify that this patient would require inpatient psychiatric hospitalization if the partial hospitalization program (PHP) services were not provided. The patient requires PHP services for a minimum of 20 hours per week, services will provided under the care of a physician, and under an individualized written plan of treatment. PHP treatment consists of a combination of structured, intensive services that are both reasonable and necessary to treat the presentation of serious psychiatric symptoms and to prevent inpatient psychiatric admission. Patient Response to [facility] Treatment: Improving Description of Patient Response to treatment interventions: Pt has engaged in the recommended treatment and is gaining skills to improve mood, functioning and is still learning how to implement skills into daily life. Patient?s psychiatric symptoms that continue to place the patient at risk of hospitalization: Depression is improving: things don't feel so heavy anymore: continue to monitor sleep: difficulty sleeping - may be due to physical health. Anxiety is improving: anxiety remains heightened, partially in situations with family. Treatment goals for coordination of services to facilitate discharge from the partial hospitalization program: Referral to new outpatient provider/PCP Goal #1: Pt will continue to gain 3 - 5 skills to decrease depressive symptoms and will show an improvement AEB a decrease overall score on PHQ 9. Goal #2: Pt will continue to gain 3 - 5 skills to decrease anxiety symptoms and will show an improvement AEB a decrease overall score on PHILIPP 7. [facility] 94 04-04-2025 94 Outpatient [facility] Group Therapy Documentation Program: Partial Hospitalization Program Group Type: Partial Hospitalization Program Group Date: 04/04/2025 Facilitators: Alejandra Richter [facility] Department: [facility] PHP Group No: 4 Start Time: 1:00 pm No. of Participants: 6 End Time: 2:00 pm Group Topic: Acceptance Summary of Group Activity: Check-in, discussion and psychoeducation on the topic of Acceptance in ACT. Experiential acceptance exercise ?Pushing Away Paper' exercise, Video By Dr. Bg Mcdonald ?The Struggle Switch?, discussion of video and on the ?Struggle Switch Metaphor? in ACT Patient's level of participation in group process: Engaged in group process, Interactive with other group members, and Appeared eager to learn/discuss group topic Therapeutic Intervention utilized with Patient: Building rapport and engagement, Empathic listening, Psychoeducation, Modeling/skills training, and Acceptance and Commitment Therapy Patient's Response to Intervention: Pt reports some improvement in mood. Pt reports some ongoing anxiety about leaving [facility] and beginning IOP. Mental Status Exam: Affect and Mood: anxious, appropriate, and brightens with interaction Behavior: Pleasant, Cooperative, Engaging, and Interactive Cognition: Intact, Oriented X4, and Intelligent Additional comments: none Progress Towards Goals: Moderate Next Step(s): Continue with current services Additional Comments (optional): Pt is appropriate for PHP level of care as participation helps to ensure pt is better able to effective control deterioration of symptoms. Participation in this level of care through improved level of functioning reduces risk of and/or can prevent relapse as well as avoid need for further hospitalization. Group No: 5 Start Time: 2:15 pm No. of Participants: 6 End Time: 3:00 pm Group Topic: Acceptance Summary of Group Activity: Patients practiced the Acceptance skill from ?A Liberated Mind? by Amor Malhotra ?Saying Yes?, patients discussed their experience doing this exercise. Patients participated in an experiential acceptance exercise in which they wrote a name of a person important to them on a note card. Patients were asked to think of negative feelings they have had with this person and asked if they would be willing to have those feelings as they continue to care for and about this person. Patients and counselor discussed how the process of acceptance helps a person do what matters to them and that pain + struggle = suffering. Patients and counselor discussed a variety of metaphors for acceptance. Patients were introduced to the Acceptance skill from ?A Liberated Mind? by Amor Malhotra ?The Impossible Game? Patient's level of participation in group process: Engaged in group process, Interactive with other group members, and Appeared eager to learn/discuss group topic Therapeutic Intervention utilized with Patient: Building rapport and engagement, Empathic listening, Psychoeducation, Modeling/skills training, and Acceptance and Commitment Therapy Patient's Response to Intervention: Pt reports being appreciative of intervention strategies and reports finding it helpful realize that in order to make changes in her life she needs to work at it. Mental Status Exam: Affect and Mood: anxious, appropriate, and brightens with interaction Behavior: Pleasant, Cooperative, Engaging, and Interactive Cognition: Intact, Oriented X4, and Intelligent Additional comments: none Progress Towards Goals: Moderate Next Step(s): Final PHP session. Scheduled to start Psych IOP on 04/05/25 Additional Comments (optional): none Normal [facility] 94 Outpatient [facility] Group Therapy Documentation Program: Partial Hospitalization Program Group Type: Partial Hospitalization Program Group Date: 04/04/2025 Facilitators: CLYDE Gorman Department: [facility] PHP Group No: 1 Start Time: 9:00 AM No. of Participants: 5 End Time: 10:00 AM Group Topic: Check in Summary of Group Activity: Facilitated group check in Patient's level of participation in group process: Engaged in group process, Appeared eager to learn/discuss group topic, and Provided support and/or feedback to others Therapeutic Intervention utilized with Patient: Building rapport and engagement and Empathic listening Patient's Response to Intervention: Pt rated mood 5/10, reports struggling with positive thoughts and emotions. Mental Status Exam: Affect and Mood: anxious, appropriate, brightens with interaction, and depressed Behavior: Pleasant, Cooperative, Engaging, and Interactive Cognition: Intact and Oriented X4 Additional comments: None Progress Towards Goals: Moderate Next Step(s): Final PHP session. Scheduled to start Psych IOP on 04/07/25 Additional Comments (optional): None Group No: 2 Start Time: 10:10 AM No. of Participants: 5 End Time: 11:00 AM Group Topic: Boundaries Summary of Group Activity: Provided psychoeducation and facilitated group discussion on boundaries, non-assertive to assertive cycle, boundaries and relationships. PATIENT WAS NOT PRESENT FOR BILLABLE HOUR Group No: 3 Start Time: 11:10 AM No. of Participants: 5 End Time: 12:00 PM Group Topic: Boundaries Summary of Group Activity: Provided psychoeducation and facilitated group discussion on purpose of boundaries, risks of boundaries, and practical rules of boundaries. Patient's level of participation in group process: Engaged in group process, Interactive with other group members, Appeared eager to learn/discuss group topic Therapeutic Intervention utilized with Patient: Building rapport and engagement, Empathic listening, Psychoeducation, and Modeling/skills training Patient's Response to Intervention: Pt was attentive to group topic, engaged in group discussion. Mental Status Exam: Affect and Mood: anxious, appropriate, brightens with interaction, and depressed Behavior: Pleasant, Cooperative, Engaging, and Interactive Cognition: Intact and Oriented X4 Additional comments: None Progress Towards Goals: Moderate Next Step(s): Final PHP session. Scheduled to start Psych IOP on 04/07/25 Additional Comments (optional): None Normal [facility] Nursing Noteon 04-04-2025 Nursing Note Pt met requirements to safely discharge from PHP. Pt medication list reviewed. Pt has a good understanding of medications. Pt has follow-up appointment with Katarina Nurse Practitioner at [facility] and pt plans receive counseling with Berenice at [facility]. Also, pt to attend AM IOP. Pt expresses intent to attend follow-up care. Pt denies SI/HI and states feels safe to discharge from this level of care. [facility] 94on 04-01-2025 94 Outpatient [facility] Group Therapy Documentation Program: Partial Hospitalization Program Group Type: Partial Hospitalization Program Group Date: 04/01/2025 Facilitators: Kacey Meade [facility] Department: [facility] Group No: 4 Start Time: 1:00 PM No. of Participants: 5 End Time: 2:00 PM Group Topic: Gratitude Summary of Group Activity: Facilitated group check in. Showed ?The healing power of gratitude: Change your brain? - Therapy in a Nutshell. Read ?gratitude is larger than life? - Molly Aguilar. Patient's level of participation in group process: Engaged in group process and Appeared eager to learn/discuss group topic Therapeutic Intervention utilized with Patient: Building rapport and engagement, Empathic listening, Psychoeducation, and Modeling/skills training Patient's Response to Intervention: Pt rated mood 6/10, reports worry/anxiety about a wedding they are attending tomorrow. Mental Status Exam: Affect and Mood: brightens with interaction appropriate Behavior: Pleasant, Cooperative, and Engaging Cognition: Intact and Oriented X4 Additional comments: None Progress Towards Goals: Moderate Next Step(s): Continue with current services Additional Comments (optional): Pt continues to present with significant sxs of impairment. Therefore, pt will continue with current services. Group No: 5 Start Time: 2:10 PM No. of Participants: 5 End Time: 3:00 PM Group Topic: Gratitude Summary of Group Activity: Provided psychoeducation on gratitude journal template, benefits of gratitude, gratitude exercises. Used randomizer to assign each group member 2 positive questions, with option to pick one to respond to and share with the group. Patient's level of participation in group process: Engaged in group process and Appeared eager to learn/discuss group topic Therapeutic Intervention utilized with Patient: Building rapport and engagement, Empathic listening, Psychoeducation, and Modeling/skills training Patient's Response to Intervention: Pt answered question when others recommend or praise you, what's it for. Pt response was kindness and compassion to others. Mental Status Exam: Affect and Mood: appropriate, brightens with interaction Behavior: Pleasant, Cooperative, and Engaging Cognition: Intact and Oriented X4 Additional comments: None Progress Towards Goals: Moderate Next Step(s): Continue with current services Additional Comments (optional): Pt continues to present with significant sxs of impairment. Therefore, pt will continue with current services. [facility] 94 Outpatient [facility] Group Therapy Documentation Program: Partial Hospitalization Program Group Type: Partial Hospitalization Program Group Date: 04/01/2025 Facilitators: Alejandra Richter [facility] Department: [facility] Group No: 1 Start Time: 9:00 am No. of Participants: 7 End Time: 10:00 am Group Topic: Check-in/Acceptance Summary of Group Activity: Check-in, patients and counselor discussed the idea that the human mind has evolved to experience some psychological suffering using information from Acceptance and Commitment Therapy. Video By Dr. Bg Cochran, ?Happiness Trap: Evolution of the Human Mind?, discussion of video Patient's level of participation in group process: Engaged in group process and Appeared eager to learn/discuss group topic Therapeutic Intervention utilized with Patient: Building rapport and engagement, Empathic listening, Psychoeducation, Modeling/skills training, and Acceptance and Commitment Therapy Patient's Response to Intervention: Pt reports being able to work outside as a coping skill to manage some sxs of impairment. Pt reports some ongoing difficulty managing feelings of low self-worth. Mental Status Exam: Affect and Mood: anxious, appropriate, and brightens with interaction Behavior: Pleasant, Cooperative, Engaging, and Interactive Cognition: Intact, Oriented X4, and Intelligent Additional comments: none Progress Towards Goals: Moderate Next Step(s): Continue with current services Additional Comments (optional): Pt is appropriate for [facility] level of care as participation helps to ensure pt is better able to effective control deterioration of symptoms. Participation in this level of care through improved level of functioning reduces risk of and/or can prevent relapse as well as avoid need for further hospitalization. Pt was not present in session for a billable hour due to being late to group. Group No: 2 Start Time: 10:15 am No. of Participants: 7 End Time: 11:00 am Group Topic: Acceptance Summary of Group Activity: Patients and counselor discussed the idea that ?Control is the Problem? using ideas from Acceptance and Commitment Therapy. The ?Tug-of-War with a Monster? experiential exercise was used to help patients learn about the process of acceptance as an alternative to control. ?Finger-traps? were used to help patients learn about the process of acceptance in ACT through experience. Various metaphors were used to help patients learn about the process of acceptance and how to apply this process to manage emotions and engage in values based committed action. Patient were given a copy of ?Summary of Common Acceptance Techniques? from ?ACT Made Simple.? Patient's level of participation in group process: Engaged in group process and Appeared eager to learn/discuss group topic Therapeutic Intervention utilized with Patient: Building rapport and engagement, Empathic listening, Psychoeducation, Modeling/skills training, and Acceptance and Commitment Therapy Patient's Response to Intervention: Pt reports being appreciative of experiential metaphors used in session and reports she was able to better visualize and see what it means to accept feelings and not control them. Mental Status Exam: Affect and Mood: anxious, appropriate, and brightens with interaction Behavior: Pleasant, Cooperative, Engaging, and Interactive Cognition: Intact, Oriented X4, and Intelligent Additional comments: none Progress Towards Goals: Moderate Next Step(s): Continue with current services Additional Comments (optional): Pt is appropriate for PHP level of care as participation helps to ensure pt is better able to effective control deterioration of symptoms. Participation in this level of care through improved level of functioning reduces risk of and/or can prevent relapse as well as avoid need for further hospitalization. Group No: 3 Start Time: 11:15 am No. of Participants: 7 End Time: 12:00 pm Group Topic: Music Therapy/Mindfulness/Acc umulating Positive Emotions in the Short Term Summary of Group Activity: Patients chose from a list of music to be played and discussed why they wanted to music to be played. Patients engaged in a mindful practice of listening to music and were able to engage in a positive experience during group to improve mood and reduce distress. Patient's level of participation in group process: Engaged in group process and Appeared eager to learn/discuss group topic Therapeutic Intervention utilized with Patient: Building rapport and engagement, Empathic listening, Dialectical Behavioral Therapy skills (DBT), Psychoeducation, Modeling/skills training, and Music Therapy Patient's Response to Intervention: Pt was able to identify 2 songs that she wanted to hear in group. Pt was able to sing along with songs played and appeared to be appreciative of intervention strategies. Mental Status Exam: Affect and Mood: anxious, appro (more content not included)... Normal [facility] Nursing Noteon 04-01-2025 Nursing Note Gisela is not present for [facility]. Telephone call to the number in pt's chart. Gisela explains I called this morning, I had a bad night, had gas pains. Gisela plans to arrive at [facility] in 10 - 15 minutes. Will update treatment team. Normal [facility] Progress Noteon 04-01-2025 Progress Note --- Attestation signed by Xuan Echevarria MD at 04/01/2025 2:17 PM I saw and evaluated the patient, participating in the baeza portions of the service. I reviewed the resident?s note. I agree with the resident?s findings and plan. Xuan Echevarria MD PSYCHIATRY PARTIAL HOSPITALIZATION PROGRAM PROGRESS NOTE PATIENT: Gisela Turner MRD: [id number] DATE: April 01, 2025 IDENTIFYING INFORMATION: Gisela is a 54 y.o. female with a history of mood and generalized anxiety disorder. CHIEF COMPLAINT: I am doing better SUBJECTIVE: Patient was seen by this provider in the context of currently attending the [facility] Partial Hospitalization Program. Patient seen for re-cert this morning. She reports she is doing better than earlier this week. Reports improvement in depression in that things don't feel so heavy anymore. Feeling some benefit from medication change from Wellbutrin SR to XL. Denies side effects. Had difficulty sleeping last night due to abdominal bloating and pain, improved this morning. Anxiety remains heightened, particularly in situations with family. She reports some changes in her perspective in doing things for herself, rather than to make others happy with her. Feels she is making progress and hopeful for continued improvements. Denies suicidal ideation, intent or plan. No symptoms of helen or psychosis. Denies NSSI and has been practicing hercoping skills. Medication side effects: None Suicidal/Homicidal Thoughts/Plans: Denies Substance Use History: See HPI above VITAL SIGNS: BP (!) 145/75 (BP Location: Left arm, Patient Position: Sitting) Pulse 99 Temp 36.8 ?C (98.2 ?F) (Temporal) Resp 16 SpO2 97% LAB DATA: Reviewed MENTAL STATUS EXAMINATION: Appearance: Appears stated age, well developed, well nourished, normal clothing, grooming is within normal limits. Activity: Normal psychomotor activity, steady gait, normal muscle tone. Behavior: Cooperative, fair eye contact, responds appropriately and engages with evaluation. Speech: Spontaneous, normal rate, normal volume, clear. Mood: better Affect: Mood congruent, appropriate to context. Thought Process: Logical, coherent and rational. Thought Content: No suicidal ideation, intent or plan., No homicidal ideation, intent or plan. Coherent. No delusions, hallucinations, loose asociations, or ideas of reference. Cognition: Orientation: Person, place, time and situation Attention: Intact Concentration: Intact Language: Intact naming, intact repetition Estimated Intelligence: Average Memory: Intact recent memory, intact remote memory Abstraction: Intact Insight: Fair Judgement: Fair RISK ASSESSMENT: Low risk IMPRESSION: Mood disorder, unspecified Generalized anxiety disorder R/o PTSD PLAN: Continue enrollment in the [facility] Partial Hospitalization Program. Provided skilled nursing facility counselor and support. Encouraged ongoing use of coping skills, resiliency. Encouraged healthy and open communication. Medication: Continue current medications as currently prescribed. -Continue Lamictal 225 mg nightly for mood stabilization -Continue Pristiq 100 mg daily for depression and anxiety -Continue Seroquel 50 mg nightly for insomnia -Continue trazodone 50 mg nightly for insomnia - Continue Wellbutrin XL 150mg every day for depression Labs: Reviewed, no new labs ordered this visit. Referrals: No referrals made this visit. -At this time, the patient is not currently having SI, HI, or evidence of acute psychosis or acute medical illness, and thus can be safely treated at this level of care. -This patient is able to demonstrate capacity for medical decision making, and can consent to treatment. -Reviewed safety plan with the patient, including calling 911 and going to the nearest ER if they were to develop SI, HI, Hallucinations, or signs/symptoms of acute medical illness. Patient understands and agrees with the plan: Yes Discussed and saw patient with attending physician Dr. Xuan MCALLISTER, 04/01/2025 10:45 AM (Please note that portions of this note may have been completed with a voice recognition program. Efforts were made to edit the dictations but occasionally words are mis-transcribed.) [facility] 94on 03-31-2025 94 Outpatient [facility] Group Therapy Documentation Program: Partial Hospitalization Program Group Type: Partial Hospitalization Program Group Date: 03/31/2025 Facilitators: CLYDE Gorman Department: [facility] Group No: 4 Start Time: 1:00 PM No. of Participants: 5 End Time: 2:00 PM Group Topic: Mindfulness Summary of Group Activity: Facilitated group check in. Provided psychoeducation and practiced mindfulness exercises (5 senses, body scan, mindful eating using a mint). Patient's level of participation in group process: Engaged in group process and Appeared eager to learn/discuss group topic Therapeutic Intervention utilized with Patient: Building rapport and engagement, Empathic listening, Psychoeducation, and Modeling/skills training Patient's Response to Intervention: Pt rated mood 6/10, reports anxiety/worry about talking to her brother. Pt participated in mindfulness skill practice. Mental Status Exam: Affect and Mood: anxious and appropriate Behavior: Pleasant, Cooperative, and Engaging Cognition: Intact and Oriented X4 Additional comments: None Progress Towards Goals: Moderate Next Step(s): Continue with current services Additional Comments (optional): Pt continues to present with significant sxs of impairment. Therefore, pt will continue with current services. Group No: 5 Start Time: 2:10 PM No. of Participants: 5 End Time: 3:00 PM Group Topic: Relaxation, grounding Summary of Group Activity: Provided psychoeducation and practiced use of imagery, progressive muscle relaxation, 5-4-3-2-1, categories, mental exercises, body awareness. Showed group members how to lean in to emotions with use of ice cubes, shake it off, exaggerated tension and release. Patient's level of participation in group process: Engaged in group process and Appeared eager to learn/discuss group topic Therapeutic Intervention utilized with Patient: Building rapport and engagement, Empathic listening, Psychoeducation, and Modeling/skills training Patient's Response to Intervention: Pt participated in skill practice. Pt states she uses gardening and weeding to be in the moment. Mental Status Exam: Affect and Mood: appropriate Behavior: Pleasant, Cooperative, and Engaging Cognition: Intact and Oriented X4 Additional comments: None Progress Towards Goals: Moderate Next Step(s): Continue with current services Additional Comments (optional): Pt continues to present with significant sxs of impairment. Therefore, pt will continue with current services. [facility] 94 Outpatient [facility] Group Therapy Documentation Program: Partial Hospitalization ProgramGroup Type: Partial Hospitalization Program Group Date: 03/31/2025 Facilitators: CLYDE Llanes Department: Devora [facility] Group No: 2 Start Time: 10:00 AM No. of Participants: 6 End Time: 11:00 AM Group Topic: Anne Therapy Summary of Group Activity: Facilitated group re: Dealing with Perfectionism/Control. Therapist facilitated group conversation via quote prompt(s) and facilitated group discussion on perfectionism/control. Therapist facilitated art therapy task use playing cards to anuj/inga michelemed. Patient's level of participation in group process: Engaged in group process, Interactive with other group members, and Appeared eager to learn/discuss group topic Therapeutic Intervention utilized with Patient: Building rapport and engagement, Empathic listening, Psychoeducation, Modeling/skills training, Art therapy, and Expressive therapy Patient's Response to Intervention: Patient appropriately participated in discussion quote prompts, perfectionism/control, and art as healthy coping mechanism. Patient actively participated in creating art. Mental Status Exam: Affect and Mood: appropriate Behavior: Pleasant, Cooperative, Engaging, and Interactive Cognition: Intact Additional comments: None Progress Towards Goals: Moderate Next Step(s): Continue with current services Additional Comments (optional): Patient continues to need this level of care as patient reports ongoing symptoms severity that impedes patient's ability to meet demands of ADLS. Group No: 3 Start Time: 11:00 AM No. of Participants: 6 End Time: 12:00 PM Group Topic: Art Therapy Summary of Group Activity: Facilitated group re: Dealing with Perfectionism/Control. Therapist facilitated processing of art making experience and discussion of individual playing card tree art. Patient's level of participation in group process: Engaged in group process, Interactive with other group members, Appeared eager to learn/discuss group topic, and Provided support and/or feedback to others Therapeutic Intervention utilized with Patient: Building rapport and engagement, Empathic listening, Psychoeducation, Art therapy, and Expressive therapy Patient's Response to Intervention: Patient appropriately processed art making experience. Patient actively engaged processing their individual art with the group. Patient stated she enjoyed the experience very much as she is a perfectionist and was able to let go of control easily doing this intervention. Therapist asked patient how she could relate this to real life and patient responded it would tae the pressure off of things. Therapists discussed the lessons of the serenity prayer and having the wisdom to know the difference between the things you can control and those you can't. Patient added DBT skills she can use as well. Mental Status Exam: Affect and Mood: Bright Behavior: Pleasant, Cooperative, Engaging, and Interactive Cognition: Intact Additional comments: None Progress Towards Goals: Moderate Next Step(s): Continue with current services Additional Comments (optional): Patient continues to need this level of care as patient reports ongoing symptoms severity that impedes patient's ability to meet demands of ADLS. [facility] 94 Outpatient [facility] Group Therapy Documentation Program: Partial Hospitalization Program Group Type: Partial Hospitalization Program Group Date: 03/31/2025 Facilitators: Alejandra Richter [facility] Department: [facility] Group No: 1 Start Time: 9:00 am No. of Participants: 6 End Time: 10:00 am Group Topic: Problem Solving Summary of Group Activity: Check-in, patients and counselor discussed the ?4 Options of Problem Solving? in DBT and discussed situations that would be most appropriate to use various DBT skills to manage problems. Patient's level of participation in group process: Engaged in group process, Interactive with other group members, and Appeared eager to learn/discuss group topic Therapeutic Intervention utilized with Patient: Building rapport and engagement, Empathic listening, Dialectical Behavioral Therapy skills (DBT), Psychoeducation, and Modeling/skills training Patient's Response to Intervention: Pt reports some improvement in mood and reports being able to use Radical Acceptance to manage some sxs of impairment. Pt reports some ongoing difficulty managing eating disorder sxs. Pt reports being willing to practice mindful eating to manage some sxs of impairment. Pt reports information in session was a good reminder of skills she can use to manage some sxs of impairment. Mental Status Exam: Affect and Mood: anxious, appropriate, and brightens with interaction Behavior: Pleasant, Cooperative, Engaging, and Interactive Cognition: Intact, Oriented X4, and Intelligent Additional comments: none Progress Towards Goals: Moderate Next Step(s): Continue with current services Additional Comments (optional): Pt is appropriate for [facility] level of care as participation helps to ensure pt is better able to effective control deterioration of symptoms. Participation in this level of care through improved level of functioning reduces risk of and/or can prevent relapse as well as avoid need for further hospitalization. [facility] 94on 03-30-2025 94 Outpatient [facility] Group Therapy Documentation Program: Partial Hospitalization Program Group Type: Partial Hospitalization Program Group Date: 03/30/2025 Facilitators: CLYDE Gorman Department: [facility] Group No: 4 Start Time: 1:00 PM No. of Participants: 6 End Time: 2:00 PM Group Topic: Window of tolerance Summary of Group Activity: Facilitated group check in. Provided psychoeducation and facilitated discussion on window of tolerance, hyperarousal, and hypoarousal. Patient's level of participation in group process: Engaged in group process, Appeared eager to learn/discuss group topic Therapeutic Intervention utilized with Patient: Building rapport and engagement, Empathic listening, Psychoeducation, and Modeling/skills training Patient's Response to Intervention: Pt rated mood 6.5/10, reports anxiety/worry about transitioning to IOP. Mental Status Exam: Affect and Mood: anxious, appropriate Behavior: Pleasant, Cooperative, Engaging, and Interactive Cognition: Intact and Oriented X4 Additional comments: None Progress Towards Goals: Moderate Next Step(s): Continue with current services Additional Comments (optional): Pt continues to present with significant sxs of impairment. Therefore, pt will continue with current services. Group No: 5 Start Time: 2:10 PM No. of Participants: 5 End Time: 3:00 PM Group Topic: Window of Tolerance Summary of Group Activity: Showed Window of tolerance - Therapy in a Nutshell. Facilitated group response to video. Provided psychoeducation on getting back to the window of tolerance skills. Patient's level of participation in group process: Engaged in group process, Appeared eager to learn/discuss group topic, and Provided support and/or feedback to others Therapeutic Intervention utilized with Patient: Building rapport and engagement, Empathic listening, Psychoeducation, and Modeling/skills training Patient's Response to Intervention: Pt was engaged in group topic, followed along with material. Mental Status Exam: Affect and Mood: appropriate Behavior: Pleasant, Cooperative, Engaging, and Interactive Cognition: Intact and Oriented X4 Additional comments: None Progress Towards Goals: Moderate Next Step(s): Continue with current services Additional Comments (optional): Pt continues to present with significant sxs of impairment. Therefore, pt will continue with current services. [facility] 94 Outpatient [facility] Group Therapy Documentation Program: Partial Hospitalization Program Group Type: Partial Hospitalization Program Group Date: 03/30/2025 Facilitators: CLYDE Lyman Department: [facility] Group No: 1 Start Time: 9:00 am No. of Participants: 6 End Time: 10:00 am Group Topic: Psychological Flexibility Summary of Group Activity: Check-in, Patients and counselor practiced using the ACT Matrix Experiential Exercise to help patients develop the process of Psychological Flexibility around current life difficulties and personal goals. Patient's level of participation in group process: Engaged in group process, Interactive with other group members, and Appeared eager to learn/discuss group topic Therapeutic Intervention utilized with Patient: Building rapport and engagement, Empathic listening, Psychoeducation, Modeling/skills training, and Acceptance and Commitment Therapy Patient's Response to Intervention: Pt reports some ongoing difficulty due to loss of a close relationship. Pt reports some difficulty due to urges to self-harm. Pt reports being willing to use coping strategies to manage challenges. Mental Status Exam: Affect and Mood: anxious, appropriate, and brightens with interaction Behavior: Pleasant, Cooperative, Engaging, and Interactive Cognition: Intact, Oriented X4, and Intelligent Additional comments: none Progress Towards Goals: Moderate Next Step(s): Continue with current services Additional Comments (optional): Pt is appropriate for [facility] level of care as participation helps to ensure pt is better able to effective control deterioration of symptoms. Participation in this level of care through improved level of functioning reduces risk of and/or can prevent relapse as well as avoid need for further hospitalization. Group No: 2 Start Time: 10:15 am No. of Participants: 7 End Time: 11:00 am Group Topic: Psychological Flexibility Summary of Group Activity: Patients and counselor used to ACT Matrix experiential exercise to help patient develop and engage in a process of psychological flexibility around topics such as ?managing anxiety? and ?improving wellbeing?. Patient's level of participation in group process: Engaged in group process, Interactive with other group members, and Appeared eager to learn/discuss group topic Therapeutic Intervention utilized with Patient: Building rapport and engagement, Empathic listening, Psychoeducation, Modeling/skills training, and Acceptance and Commitment Therapy Patient's Response to Intervention: Pt was able to share her current personal concerns in group and develop a new perspective through discussing her current life stressors. Mental Status Exam: Affect and Mood: anxious, appropriate, and brightens with interaction Behavior: Pleasant, Cooperative, Engaging, and Interactive Cognition: Intact, Oriented X4, and Intelligent Additional comments: none Progress Towards Goals: Moderate Next Step(s): Continue with current services Additional Comments (optional): Pt is appropriate for [facility] level of care as participation helps to ensure pt is better able to effective control deterioration of symptoms. Participation in this level of care through improved level of functioning reduces risk of and/or can prevent relapse as well as avoid need for further hospitalization. Group No: 3 Start Time: 11:15 am No. of Participants: 7 End Time: 12:00 pm Group Topic: Psychological Flexibility Summary of Group Activity: Patients discussed current personal problems using the ACT Matrix to gain a new perspective and practice psychological flexibility. Some psychoeducation was given on the process of psychological flexibility. Patients were given handouts describing to process of Acceptance and Commitment Therapy (Hexaflex) and ?Becoming Psychological Flexibility? from [employer] Patient's level of participation in group process: Engaged in group process, Interactive with other group members, and Appeared eager to learn/discuss group topic Therapeutic Intervention utilized with Patient: Building rapport and engagement, Empathic listening, Psychoeducation, Modeling/skills training, and Acceptance and Commitment Therapy Patient's Response to Intervention: Pt reports being appreciative of being able to talk about her current concerns and being able to process some of her feelings. Pt reports wanting to be able to make sense of her feelings. Mental Status Exam: Affect and Mood: anxious, appropriate, and brightens with interaction Behavior: Pleasant, Cooperative, Engaging, and Interactive Cognition: Intact, Oriented X4, and Intelligent Additional comments: none Progress Towards Goals: Moderate Next Step(s): Continue with current services Additional Comments (optional): Pt is appropriate for [facility] level of care as participation helps to ensure pt is better able to effective control deteri (more content not included)... Normal [facility] 94on 03-29-2025 94 Outpatient [facility] Group Therapy Documentation Program: Partial Hospitalization Program Group Type: Partial Hospitalization Program Group Date: 03/29/2025 Facilitators: CLYDE Gorman Department: [facility] Group No: 4 Start Time: 1:00 PM No. of Participants: 7 End Time: 2:00 PM Group Topic: Physical Wellness Checklist, Disease Prevention and making the most of Your Doctor's appointment. Summary of Group Activity: The Group watched a You Tube Video by Doctor Santoro Top Tips to Make the Most of Your Doctor's appointment. Reviewed handout: preparation for your doctor's appointment. RN discussed handouts on what to expect during a routine physical for adults including preventive health screenings and vaccinations. Patient's level of participation in group process: Engaged in group process, Appeared eager to learn/discuss group topic Therapeutic Intervention utilized with Patient: Building rapport and engagement, Empathic listening, Psychoeducation, and Modeling/skills training Patient's Response to Intervention: Pt engaged in group discussion, shared personal experiences. Mental Status Exam: Affect and Mood: appropriate, brightens with interaction Behavior: Pleasant, Cooperative, Engaging, and Interactive Cognition: Intact and Oriented X4 Additional comments: None Progress Towards Goals: Moderate Next Step(s): Continue with current services Additional Comments (optional): Pt continues to present with significant sxs of impairment. Therefore, pt will continue with current services. Group No: 5 Start Time: 2:10 PM No. of Participants: 7 End Time: 3:00 PM Group Topic: Physical Wellness Checklist, Disease Prevention and making the most of Your Doctor's appointment. Summary of Group Activity: Facilitated group check in. Reviewed the CDC guidelines on hand hygiene. Discussed that preventative checkups and healthy habits can decrease your stress, lower your risk of disease, increase your energy and improve your overall physical / mental health. Patient's level of participation in group process: Engaged in group process, Appeared eager to learn/discuss group topic, and Provided support and/or feedback to others Therapeutic Intervention utilized with Patient: Building rapport and engagement, Empathic listening, Psychoeducation, and Modeling/skills training Patient's Response to Intervention: Pt rated mood 5/10, reports anxiety/worry about talking to her brother. Mental Status Exam: Affect and Mood: appropriate, brightens with interaction Behavior: Pleasant, Cooperative, Engaging Cognition: Intact and Oriented X4 Additional comments: None Progress Towards Goals: Moderate Next Step(s): Continue with current services Additional Comments (optional): Pt continues to present with significant sxs of impairment. Therefore, pt will continue with current services. [facility] 94 Outpatient [facility] Group Therapy Documentation Program: Partial Hospitalization Program Group Type: Partial Hospitalization Program Group Date: 03/29/2025 Facilitators: Alejandra Richter [facility] Department: [facility] Group No: 1 Start Time: 9:00 am No. of Participants: 5 End Time: 10:00 am Group Topic: Acceptance Summary of Group Activity: Check-in, Patients and counselor discussed the following article by Dr. Bg Cochran, ?The 4 Happiness Myths?, patients and counselor discussed the process of accepting feelings and engaging in values based committed action to manage life stressors and improve wellbeing as an alternative to controlling thoughts and feelings. Patient's level of participation in group process: Engaged in group process, Interactive with other group members, and Appeared eager to learn/discuss group topic Therapeutic Intervention utilized with Patient: Building rapport and engagement, Empathic listening, Psychoeducation, Modeling/skills training, and Acceptance and Commitment Therapy Patient's Response to Intervention: Pt reports finding information discussed in session to be helpful and reports being able to realize that she can't depend on other people to make her happy. Mental Status Exam: Affect and Mood: anxious, appropriate, and brightens with interaction Behavior: Pleasant, Cooperative, Engaging, and Interactive Cognition: Intact, Oriented X4, and Intelligent Additional comments: none Progress Towards Goals: Moderate Next Step(s): Continue with current services Additional Comments (optional): Pt is appropriate for [facility] level of care as participation helps to ensure pt is better able to effective control deterioration of symptoms. Participation in this level of care through improved level of functioning reduces risk of and/or can prevent relapse as well as avoid need for further hospitalization. [facility] 94 Outpatient [facility] Group Therapy Documentation Program: Partial Hospitalization ProgramGroup Type: Partial Hospitalization Program Group Date: 03/29/2025 Facilitators: Tania Rea [facility] Department: [facility] Group No: 2 Start Time: 10:00 AM No. of Participants: 6 End Time: 11:00 AM Group Topic: Art Therapy Summary of Group Activity: Facilitated group: Facilitated group: Change. Therapist facilitated group processing of change via flower bud quote prompt. Therapist facilitated art therapy task: decorate an origami flower to represent change. Patient's level of participation in group process: Engaged in group process, Interactive with other group members, and Appeared eager to learn/discuss group topic Therapeutic Intervention utilized with Patient: Building rapport and engagement, Empathic listening, Psychoeducation, Modeling/skills training, Art therapy, Expressive therapy, and [place] Therapy Patient's Response to Intervention: Patient was late to group as she was with a care provider and so did not participate in discussion of change quotes and change. Patient actively participated in creating flower art. Mental Status Exam: Affect and Mood: appropriate Behavior: Pleasant, Cooperative, and Interactive Cognition: Intact Additional comments: None Progress Towards Goals: Moderate Next Step(s): Continue with current services Additional Comments (optional): Patient continues to need this level of care as patient reports ongoing symptoms severity that impedes patient's ability to meet demands of ADLS. Group No: 3 Start Time: 11:00 AM No. of Participants: 6 End Time: 12:00 PM Group Topic: Art Therapy Summary of Group Activity: Facilitated group: Facilitated group: Change. Therapist facilitated processing of art making experience and individual group member's flower art. Patient's level of participation in group process: Engaged in group process, Interactive with other group members, Appeared eager to learn/discuss group topic, and Provided support and/or feedback to others Therapeutic Intervention utilized with Patient: Empathic listening, Psychoeducation, Modeling/skills training, Art therapy, Expressive therapy, and [place] Therapy Patient's Response to Intervention: Patient appropriately processed art making experience. Patient actively engaged in processing her individual flower art with the group. Patient created a flower wrapped in ribbons and bows and which she made feliciano by adding pieces of fiber paper. Patient stated the quote and creating the flower spoke to her today because she has just spoke to her psychiatrist about being more vulnerable with her family, so this was the change she thought about while making her flower. Mental Status Exam: Affect and Mood: appropriate Behavior: Pleasant, Cooperative, Engaging, and Interactive Cognition: Intact Additional comments: None Progress Towards Goals: Moderate Next Step(s): Continue with current services Additional Comments (optional): Patient continues to need this level of care as patient reports ongoing symptoms severity that impedes patient's ability to meet demands of ADLS. [facility] Progress Noteon 03-29-2025 Progress Note --- Attestation signed by Xuan Echevarria MD at 03/29/2025 2:23 PM I saw and evaluated the patient, participating in the baeza portions of the service. I reviewed the resident?s note. I agree with the resident?s findings and plan. Xuan Echevarria MD PSYCHIATRY PARTIAL HOSPITALIZATION PROGRAM PROGRESS NOTE PATIENT: Gisela Turner MRD: [id number] DATE: March 29, 2025 IDENTIFYING INFORMATION: Gisela is a 54 y.o. female with a history of mood disorder and generalized anxiety disorder. CHIEF COMPLAINT: I cut myself over the weekend SUBJECTIVE: Patient requested to talk to physician today to discuss stressors as well as unchanged depression. Did engage in NSSI over the weekend due to feelings of isolation and frustration. She discusses stressors in her life which include familial and financial. Also reports her BP to be elevated over the weekend, does not normally take anti hypertensive. She reports continued depression daily, low energy, low motivation, low appetite and insomnia. She has been taking Wellbutrin XL for a week now, no side effects. Anxiety remains present on a daily basis as well. She talks about how previous experiences with trauma have affected her ability to be vulnerable and open with others. She denies any current thoughts of self harm or suicide, able to contract for safety and states that she will reach out to someone if the thoughts do occur. Does feel that she is benefiting from PHP and learning new coping skills. Medication side effects: None Suicidal/Homicidal Thoughts/Plans: Denies Substance Use History: See HPI above VITAL SIGNS: BP (!) 149/84 (BP Location: Left arm, Patient Position: Sitting) Pulse 78 Temp 36.8 ?C (98.2 ?F) (Temporal) Resp 20 SpO2 97% LAB DATA: Reviewed MENTAL STATUS EXAMINATION: Appearance: Appears stated age, well developed, well nourished, normal clothing, grooming is within normal limits. Activity: Normal psychomotor activity, steady gait, normal muscle tone. Behavior: Cooperative, fair eye contact, responds appropriately and engages with evaluation. Speech: Spontaneous, normal rate, normal volume, clear. Mood: frustrated Affect: Mood congruent, anxious, appropriate to context. Thought Process: Logical, coherent and rational. Thought Content: No suicidal ideation, intent or plan., No homicidal ideation, intent or plan. Coherent. No delusions, hallucinations, loose asociations, or ideas of reference. Cognition: Orientation: Person, place, time and situation Attention: Intact Concentration: Intact Language: Intact naming, intact repetition Estimated Intelligence: Average Memory: Intact recent memory, intact remote memory Abstraction: Intact Insight: Fair Judgement: Fair RISK ASSESSMENT: Low risk IMPRESSION: Mood disorder, unspecified Generalized anxiety disorder R/o PTSD PLAN: Continue enrollment in the [facility] Partial Hospitalization Program. Provided skilled nursing facility counselor and support. Encouraged ongoing use of coping skills, resiliency. Encouraged healthy and open communication. Medication: Continue current medications as currently prescribed. Patient requested refills of her medications as well. -Continue Lamictal 225 mg nightly for mood stabilization -Continue Pristiq 100 mg daily for depression and anxiety -Continue Seroquel 50 mg nightly for insomnia -Continue trazodone 50 mg nightly for insomnia - Continue Wellbutrin XL 150mg every day for depression Labs: Reviewed, no new labs ordered this visit. Referrals: No referrals made this visit. -At this time, the patient is not currently having SI, HI, or evidence of acute psychosis or acute medical illness, and thus can be safely treated at this level of care. -This patient is able to demonstrate capacity for medical decision making, and can consent to treatment. -Reviewed safety plan with the patient, including calling 911 and going to the nearest ER if they were to develop SI, HI, Hallucinations, or signs/symptoms of acute medical illness. Patient understands and agrees with the plan: Yes Discussed and saw patient with Dr. Xuan MCALLISTER DO 03/29/2025 10:12 AM (Please note that portions of this note may have been completed with a voice recognition program. Efforts were made to edit the dictations but occasionally words are mis-transcribed.) [facility] Nursing Noteon 03-28-2025 Nursing Note Gisela is absent from [facility] as she has a pre-planned Doctor's appointment today. [facility] 94on 03-25-2025 94 [facility] Group Therapy Documentation Program: Partial Hospitalization Program Group Type: Partial Hospitalization Program Group Date: 03/25/2025 Facilitators: Alejandra Richter [facility] Department: [facility] Group No: 4 Start Time: 1:00 pm No. of Participants: 5 End Time: 2:00 pm Group Topic: Hero's Journey Summary of Group Activity: Check-in, discussion and psychoeducation on the concept of the Hero's Journey and how it relates to mental health. Video by [employer] ?What Makes a Hero? Crescencio Velez. Discussion of video. Patients discussed how they relate to the Hero's Journey in their own life and reflected on particular aspects of their own mental health journey. Patient's level of participation in group process: Engaged in group process, Interactive with other group members, and Appeared eager to learn/discuss group topic Therapeutic Intervention utilized with Patient: Building rapport and engagement, Empathic listening, Psychoeducation, Modeling/skills training, and Narrative Therapy Patient's Response to Intervention: Pt reports finding it helpful to notice that denial is okay to feel. Pt reports some anxiety about meeting a new nurse practitioner in the future. Mental Status Exam: Affect and Mood: anxious, appropriate, and brightens with interaction Behavior: Pleasant, Cooperative, Engaging, and Interactive Cognition: Intact, Oriented X4, and Intelligent Additional comments: none Progress Towards Goals: Moderate Next Step(s): Continue with current services Additional Comments (optional): Pt is appropriate for [facility] level of care as participation helps to ensure pt is better able to effective control deterioration of symptoms. Participation in this level of care through improved level of functioning reduces risk of and/or can prevent relapse as well as avoid need for further hospitalization. Group No: 5 Start Time: 2:15 pm No. of Participants: 5 End Time: 3:00 pm Group Topic: Hero's Journey Summary of Group Activity: Patients and counselor discussed various quotes by Artemio Samayoa on the Hero's Journey and discussed which quotes resonated with them or felt helpful or inspiring. Patients used the ACT Matrix experiential exercise to gain some psychological flexibility around the concept of the Hero's Journey and how they can learn from the experience of others in history, in stories, and in the group. Patient's level of participation in group process: Engaged in group process, Interactive with other group members, and Appeared eager to learn/discuss group topic Therapeutic Intervention utilized with Patient: Building rapport and engagement, Empathic listening, Psychoeducation, Modeling/skills training, and Acceptance and Commitment Therapy, Narrative Therapy Patient's Response to Intervention: Pt reports recognizing that she has a lot of work to do in order to make progress but pt reports that she recognizes that a little bit of progress is progress. Mental Status Exam: Affect and Mood: anxious, appropriate, and brightens with interaction Behavior: Pleasant, Cooperative, Engaging, and Interactive Cognition: Intact, Oriented X4, and Intelligent Additional comments: none Progress Towards Goals: Moderate Next Step(s): Continue with current services Additional Comments (optional): Pt is appropriate for PHP level of care as participation helps to ensure pt is better able to effective control deterioration of symptoms. Participation in this level of care through improved level of functioning reduces risk of and/or can prevent relapse as well as avoid need for further hospitalization. [facility] 94 [facility] Group Therapy Documentation Program: Partial Hospitalization Program Group Type: Partial Hospitalization Program Group Date: 03/25/2025 Facilitators: CLYDE Cordero Department: [facility] Group No: 5 Start Time: 9:00 AM No. of Participants: 5 End Time: 12:00 PM Group Topic: Check-In Summary of Group Activity: Reviewed limits of confidentiality, daily schedule, and safety plan. The group members each completed their Behavioral Health Daily Self Report. The group members each checked in by sharing how they have been coping with life since the last group. Group members shared part of their personal journey that brought them to [facility]. Patient's level of participation in group process: Engaged in group process, Interactive with other group members, and Appeared eager to learn/discuss group topic Therapeutic Intervention utilized with Patient: Building rapport and engagement, Empathic listening, and Cognitive Behavioral Therapy (CBT) Patient's Response to Intervention: Pt was attentive in group and while others were sharing. Pt completed daily self report; Pt reported symptoms of depression being a 5 on a 0-10 scale with 10 being the most severe; Pt reported symptoms of anxiety being a 7 on a 0-10 scale with 10 being the most severe. Pt denied any current thoughts of wanting to harm self or others. Mental Status Exam: Affect and Mood: anxious and depressed Behavior: Pleasant, Cooperative, and Engaging Cognition: Intact, Oriented X4, and Intelligent Additional comments: N/A Progress Towards Goals: Minimal Next Step(s): Continue with current services Additional Comments (optional): Group No: 2 Start Time: 10:00 am No. of Participants: 5 End Time: 11:00 am Group Topic: Denial Summary of Group Activity: The group read a meditation from the Language of Letting Go book on internal and external stress. The group discussed ways to manage stress and anxiety through detachment of concerns that cannot be controlled or influenced and practicing self-care. cope with life. Patient's level of participation in group process: Engaged in group process, Interactive with other group members, and Appeared eager to learn/discuss group topic Therapeutic Intervention utilized with Patient: Building rapport and engagement, Empathic listening, and Cognitive Behavioral Therapy (CBT) Patient's Response to Intervention: Pt was attentive while others were sharing. 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 Mental Status Exam: Affect and Mood: anxious and depressed Behavior: Pleasant, Cooperative, and Engaging Cognition: Intact, Oriented X4, and Intelligent Additional comments: N/A Progress Towards Goals: Minimal Next Step(s): Continue with current services Additional Comments (optional): Group No: 3 Start Time: 11:10 am No. of Participants: 5 End Time: 12:10 pm Group Topic: Music Therapy Summary of Group Activity: The music therapist facilitated a group where pt's were asked to share songs that made them feel safe. Patient's level of participation in group process: Engaged in group process Therapeutic Intervention utilized with Patient: Building rapport and engagement, Empathic listening, and Cognitive Behavioral Therapy (CBT) Patient's Response to Intervention: Pt came to group and was attentive. Pt participated in the music therapy. Pt shared a Gnosticist son that was meaningful to her and made her feel safe. Mental Status Exam: Affect and Mood: anxious and depressed Behavior: Cooperative Cognition: Intact Additional comments: N/A Progress Towards Goals: Minimal Next Step(s): Continue with current services Additional Comments (optional): [facility] 94on 03-24-2025 94 [facility] Group Therapy Documentation Program: Partial Hospitalization Program Group Type: Partial Hospitalization Program Group Date: 03/24/2025 Facilitators: Alejandra Richter [facility] Department: [facility] Group No: 4 Start Time: 1:00 pm No. of Participants: 8 End Time: 2:00 pm Group Topic: Boundaries Summary of Group Activity: Check-in, Patients and counselor discussed the topic of Flowers's Family Systems. Brief Psychoeducation was given on Lionel's Family System Theory, including system thinking, enmeshment, and triangles. Patient's level of participation in group process: Engaged in group process, Interactive with other group members, and Appeared eager to learn/discuss group topic Therapeutic Intervention utilized with Patient: Building rapport and engagement, Empathic listening, Psychoeducation, and Modeling/skills training Patient's Response to Intervention: Pt reports difficulty due to low mood. Pt reports being able to use mindfulness as a skill to manage some sxs of impairment. Pt reports some anxiety about wanting to be able to speak with her about the group. Mental Status Exam: Affect and Mood: anxious, appropriate, depressed, and tearful Behavior: Pleasant, Cooperative, Engaging, and Interactive Cognition: Intact, Oriented X4, and Intelligent Additional comments: none Progress Towards Goals: Moderate Next Step(s): Continue with current services Additional Comments (optional): Pt is appropriate for [facility] level of care as participation helps to ensure pt is better able to effective control deterioration of symptoms. Participation in this level of care through improved level of functioning reduces risk of and/or can prevent relapse as well as avoid need for further hospitalization. Group No: 5 Start Time: 2:15 pm No. of Participants: 7 End Time: 3:00 pm Group Topic: Boundaries Summary of Group Activity: Videos ?Juany Henderson on Boundaries?, and ?The Gifts of Imperfection?, discussion of videos, Patients were given brief psychoeducation on the DBT skills ?DEAR MAN GIVE FAST? and given a handout on these skills by [employer], Patients were given an article ?Sarah Henderson: 3 Ways to Set Boundaries, The importance of knowing when, and how, to say no.? Patient's level of participation in group process: Engaged in group process, Interactive with other group members, and Appeared eager to learn/discuss group topic Therapeutic Intervention utilized with Patient: Building rapport and engagement, Empathic listening, Psychoeducation, and Modeling/skills training Patient's Response to Intervention: Pt reports being appreciative of talking about boundaries, and of the reminder to use the DEAR MAN skill. Mental Status Exam: Affect and Mood: anxious, appropriate, and brightens with interaction Behavior: Pleasant, Cooperative, Engaging, and Interactive Cognition: Intact, Oriented X4, and Intelligent Additional comments: none Progress Towards Goals: Moderate Next Step(s): Continue with current services Additional Comments (optional): Pt is appropriate for [facility] level of care as participation helps to ensure pt is better able to effective control deterioration of symptoms. Participation in this level of care through improved level of functioning reduces risk of and/or can prevent relapse as well as avoid need for further hospitalization. [facility] 94 [facility] Group Therapy Documentation Program: Partial Hospitalization Program Group Type: Partial Hospitalization Program Group Date: 03/24/2025 Facilitators: CLYDE Llanes Department: [facility] Group No: 2 Start Time: 10:00 AM No. of Participants: 8 End Time: 11:00 AM Group Topic: Art Therapy Summary of Group Activity: Facilitated group re: Seeds in the garden as a metaphor for thoughts in the mind. Therapist facilitated group discussion about changing thoughts using prompt quotes. Therapist facilitated art therapy task: create a garden using tissue paper arana to represent the thoughts you want to grow. Patient's level of participation in group process:Engaged in group art process, less interactive with other group members, and Appeared eager to learn/discuss group process Therapeutic Intervention utilized with Patient: Building rapport and engagement, Empathic listening, Psychoeducation, Modeling/skills training, Art therapy, Expressive therapy, and [place] Therapy Patient's Response to Intervention: Patient appropriately participated in discussion of metaphor and how it pertains to changing thoughts. Patient actively participated in creating flower garden art. Mental Status Exam: Affect and Mood: appropriate Behavior: Pleasant, Cooperative, and Withdrawn Cognition: Intact Additional comments: None Progress Towards Goals: Moderate Next Step(s): Continue with current services Additional Comments (optional): Patient continues to need this level of care as patient reports ongoing symptoms severity that impedes patient's ability to meet demands of ADLS. Group No: 3 Start Time: 11:00 AM No. of Participants: 9 End Time: 12:00 PM Group Topic: Art Therapy Summary of Group Activity: Facilitated group re: Seeds in the garden as a metaphor for thoughts in the mind. Therapist facilitated group discussion about changing thoughts using prompt quotes. Therapist facilitated processing of art making experience. Therapist facilitated processing of individual art with the group. Patient's level of participation in group process: Engaged in group process, Interactive with other group members, and Appeared eager to learn/discuss group topic Therapeutic Intervention utilized with Patient: Building rapport and engagement, Empathic listening, Psychoeducation, Modeling/skills training, Art therapy, Expressive therapy, and [place] Therapy Patient's Response to Intervention: Patient appropriately processed art making experience. Patient actively engaged in processing their individual art with the group. Mental Status Exam: Affect and Mood: appropriate Behavior: Pleasant, Cooperative, and Interactive Cognition: Intact Additional comments: None Progress Towards Goals: Moderate Next Step(s): Continue with current services Additional Comments (optional): Patient continues to need this level of care as patient reports ongoing symptoms severity that impedes patient's ability to meet demands of ADLS. [facility] 94 [facility] Group Therapy Documentation Program: Partial Hospitalization Program Group Type: Partial Hospitalization Program Group Date: 03/24/2025 Facilitators: CLYDE Gorman Department: [facility] Group No: 1 Start Time: 9:00 AM No. of Participants: 7 End Time: 9:45 AM Group Topic: Check in Summary of Group Activity: Facilitated group check in Patient's level of participation in group process: Engaged in group process Therapeutic Intervention utilized with Patient: Building rapport and engagement and Empathic listening Patient's Response to Intervention: Pt rated mood 3/10, reports struggling with communication with her . Mental Status Exam: Affect and Mood: appropriate Behavior: Pleasant and Cooperative Cognition: Intact and Oriented X4 Additional comments: None Progress Towards Goals: Minimal Next Step(s): Continue with current services Additional Comments (optional): Pt continues to present with significant sxs of impairment. Therefore, pt will continue with current services. [facility] 94on 03-23-2025 94 [facility] Group Therapy Documentation Program: Partial Hospitalization Program Group Type: Partial Hospitalization Program Group Date: 03/23/2025 Facilitators: Alejandra Richter [facility] Department: [facility] Group No: 4 Start Time: 1:00 pm No. of Participants: 9 End Time: 2:00 pm Group Topic: Carlos Mind Summary of Group Activity: Check-in, Psychoeducation and discussion on the difference between Reasonable Mind and Emotion Mind and on Carlos Mind as the synthesis of the two states of mind. Patient's level of participation in group process: Engaged in group process, Interactive with other group members, and Appeared eager to learn/discuss group topic Therapeutic Intervention utilized with Patient: Building rapport and engagement, Empathic listening, Dialectical Behavioral Therapy skills (DBT), Psychoeducation, and Modeling/skills training Patient's Response to Intervention: Pt reports being able to stay in the moment and try to stop worrying about tomorrow. Pt reports some anxiety about wanting to be outside and missing out on experiencing the good weather. Mental Status Exam: Affect and Mood: anxious, appropriate, and brightens with interaction Behavior: Pleasant, Cooperative, Engaging, and Interactive Cognition: Intact, Oriented X4, and Intelligent Additional comments: none Progress Towards Goals: Moderate Next Step(s): Continue with current services Additional Comments (optional): Pt is appropriate for [facility] level of care as participation helps to ensure pt is better able to effective control deterioration of symptoms. Participation in this level of care through improved level of functioning reduces risk of and/or can prevent relapse as well as avoid need for further hospitalization. Group No: 5 Start Time: 2:15 pm No. of Participants: 8 End Time: 3:00 pm Group Topic: Carlos Mind Summary of Group Activity: Discussion on the importance of Carlos Mind and how to access Carlos Mind. Patients were led in a brief mindfulness Carlos Mind Meditation ?Stoneflake on a Rea? Patient's level of participation in group process: Engaged in group process, Interactive with other group members, and Appeared eager to learn/discuss group topic Therapeutic Intervention utilized with Patient: Building rapport and engagement, Empathic listening, Dialectical Behavioral Therapy skills (DBT), Psychoeducation, and Modeling/skills training Patient's Response to Intervention: Pt reports finding it helpful to go over this information again. Pt reports being able to recognize when she is in emotion mind. Pt reports that being able to think clearly and be in carlos mind takes effort. Mental Status Exam: Affect and Mood: anxious, appropriate, and brightens with interaction Behavior: Pleasant, Cooperative, Engaging, and Interactive Cognition: Intact, Oriented X4, and Intelligent Additional comments: none Progress Towards Goals: Moderate Next Step(s): Continue with current services Additional Comments (optional): Pt is appropriate for [facility] level of care as participation helps to ensure pt is better able to effective control deterioration of symptoms. Participation in this level of care through improved level of functioning reduces risk of and/or can prevent relapse as well as avoid need for further hospitalization. [facility] 94 Outpatient [facility] Group Therapy Documentation Program: Partial Hospitalization Program Group Type: Partial Hospitalization Program Group Date: 03/23/2025 Facilitators: CLYDE Gorman Department: [facility] PHP Group No: 1 Start Time: 9:00 AM No. of Participants: 9 End Time: 10:00 AM Group Topic: Check in Summary of Group Activity: Facilitated group check in. Patient's level of participation in group process: Engaged in group process and Provided support and/or feedback to others Therapeutic Intervention utilized with Patient: Building rapport and engagement and Empathic listening Patient's Response to Intervention: Pt engaged in group check in, reports ongoing struggling with boundaries/communicatio n and practicing radical acceptance. Mental Status Exam: Affect and Mood: anxious, appropriate, and depressed Behavior: Pleasant, Cooperative, Engaging, and Interactive Cognition: Intact and Oriented X4 Additional comments: None Progress Towards Goals: Minimal Next Step(s): Continue with current services Additional Comments (optional): Pt continues to present with significant sxs of impairment. Therefore, pt will continue with current services. Group No: 2 Start Time: 10:00 AM No. of Participants: 10 End Time: 10:45 AM Group Topic: Check in Summary of Group Activity: Continued check in, group members expressed anxiety/concerns and had opportunity to provide feedback/support. Patient's level of participation in group process: Engaged in group process and Provided support and/or feedback to others Therapeutic Intervention utilized with Patient: Building rapport and engagement and Empathic listening Patient's Response to Intervention: Pt engaged in group discussion, related to other group members. Mental Status Exam: Affect and Mood: anxious, appropriate, and depressed Behavior: Pleasant, Cooperative, Engaging, and Interactive Cognition: Intact and Oriented X4 Additional comments: None Progress Towards Goals: Minimal Next Step(s): Continue with current services Additional Comments (optional): Pt continues to present with significant sxs of impairment. Therefore, pt will continue with current services. Group No: 3 Start Time: 11:10 AM No. of Participants: 9 End Time: 12:00 PM Group Topic: Core beliefs Summary of Group Activity: Group members listened to song Break up with me and processed negative self talk from song and their own internal dialogue. Provided psychoeducation and facilitated group discussion on core beliefs. PATIENT WAS NOT PRESENT DUE TO LEAVING FOR ANOTHER PROVIDER APPOINTMENT [facility] CNTHERAPYon 03-23-2025 CNTHERAPY OT/PT/Speech Visit (AKPTB) GISELA TURNER ([id number]) 1970 F Date Time Provider Department 03/23/25 11:30 AM ALKA SHEPPARD Date Time Provider Department [place] 03/23/2025 11:30 AM [id number] SHEPPARD [facility] Reason for Visit: Physical Therapy [503] Primary Visit Diagnosis:Muscular incoordination [R27.8] Other Visit Diagnosis:Constipation, unspecified constipation type [K59.00] Allergies As of Date: 03/23/2025 Noted Allergy Reaction AMOXICILLIN 11/25/2005 4 - Hives BACTRIM (SULFAMETHOXAZOLE) 11/13/2011 2 - Rash DIPHENHYDRAMINE 10/07/2018 14 - Other: See Comments MOXIFLOXACIN 06/04/2023 4 - Hives SEPTRA (SULFAMETHOXAZOLE-TRIME THO*11/25/2005 2 - Rash TRILEPTAL (OXCARBAZEPINE) 12/16/2005 ZOMIG (ZOLMITRIPTAN) 12/16/2005 ZYPREXA (OLANZAPINE) 12/16/2005 Date Reviewed: 02/24/2025 Reviewed by: Hernan Lizama, LAVON - Fully Assessed Prescriptions as of 03/23/2025 - mesalamine (CANASA) 1,000 mg suppository 1 suppository by RECTAL route daily at bedtime. - aspirin, enteric coated (ASPIRIN, ENTERIC COATED) 81 mg EC tablet Take 1 tablet by mouth once daily. - traZODone (DESYREL) 50 mg tablet Take 1 tablet by mouth at bedtime as needed. - lamoTRIgine (LAMICTAL) 200 mg tablet Take 1 tablet by mouth daily at bedtime. Take with 1 tablet of Lamotrigine 25 mg for combined dose of 225 mg. - lamoTRIgine (LAMICTAL) 25 mg tablet Take 1 tablet by mouth daily at bedtime. Take with 1 tablet of Lamotrigine 200 mg for a combined total dose of 225 mg. - melatonin 3 mg tablet Take 1 tablet by mouth daily at bedtime. Take 1-2 hours before bedtime. - PRISTIQ 100 mg 24 hr tablet Take 100 mg by mouth once daily. - lubiprostone (AMITIZA) 24 mcg capsule Take 1 capsule by mouth two times a day with meals. - estradiol (ESTRACE) 0.01 % (0.1 mg/gram) vaginal cream APPLY A PEA SIZED AMOUNT TO LOWER VAGINA AT BEDTIME TWICE WEEKLY - oxybutynin XL (DITROPAN XL) 5 mg 24 hr tablet Take 1 tablet by mouth once daily. - atorvastatin (LIPITOR) 20 mg tablet Take 20 mg by mouth once daily. - QUEtiapine (SEROQUEL) 50 mg tablet Take 1 tablet by mouth daily at bedtime. - lansoprazole (PREVACID) 30 mg capsule Take 30 mg by mouth once daily. - buPROPion SR (WELLBUTRIN SR) 100 mg 12 hr tablet Take 100 mg by mouth every morning. Facility-Administered Medications as of 03/23/2025 - onabotulinum toxin type A 100 Units injection (BOTOX) [facility] 94on 03-22-2025 94 Outpatient [facility] Group Therapy Documentation Program: Partial Hospitalization Program Group Type: Partial Hospitalization Program Group Date: 03/22/2025 Facilitators: Alejandra Richter [facility] Department: [facility] Group No: 4 Start Time: 1:00 pm No. of Participants: 8 End Time: 2:00 pm Group Topic: Mental Health Maintenance Plan helps patients recognize and manage their ongoing mental health needs. The plan can assist patients by identifying mental health risks such as triggers and warning signs. Also, the plan helps patients in dealing with symptoms through self-care, coping strategies, medication compliance, returning to therapy and attending outpatient appointments with psychiatrist, individual therapist and family physician (if appropriate). Summary of Group Activity: Intervention - Group Discussion: RN had patient fill out their mental health maintenance plan. Reviewed the importance of staying compliant with medications and attending outpatient appointments. The mental health maintenance plan will help patients recognize and manage their ongoing mental health needs. Discussion helped patients identify triggers, warning signs as well as management through self-care, exercise, time in nature, coping strategies, positive affirmations and social support. Patient's level of participation in group process: Engaged in group process, Interactive with other group members, and Appeared eager to learn/discuss group topic Therapeutic Intervention utilized with Patient: Building rapport and engagement, Empathic listening, Psychoeducation, and Modeling/skills training Patient's Response to Intervention: Pt reports being able to use skills to remain in the moment. Pt reports some anxiety about how her medication will affect her. Mental Status Exam: Affect and Mood: anxious, appropriate, and brightens with interaction Behavior: Pleasant, Cooperative, Engaging, and Interactive Cognition: Intact, Oriented X4, and Intelligent Additional comments: none Progress Towards Goals: Moderate Next Step(s): Continue with current services Additional Comments (optional): Pt is appropriate for [facility] level of care as participation helps to ensure pt is better able to effective control deterioration of symptoms. Participation in this level of care through improved level of functioning reduces risk of and/or can prevent relapse as well as avoid need for further hospitalization. Group No: 5 Start Time: 2:15 pm No. of Participants: 6 End Time: 3:00 pm Group Topic: Check-in, Mindfulness, Psychological Flexibility Summary of Group Activity: Patients discussed their current mood and functioning and discussed any concerns they were experiencing. Patients discussed any progress they felt they were making in group. Psychoeducation was given on the process of Psychological Flexibility using Herb Fairbanks's ?Mindful Action Plan? and ?Verbal Aikido? (Essential Guide to the ACT Matrix) Patient's level of participation in group process: Engaged in group process, Interactive with other group members, and Appeared eager to learn/discuss group topic Therapeutic Intervention utilized with Patient: Building rapport and engagement, Empathic listening, Psychoeducation, Modeling/skills training, and Acceptance and Commitment Therapy Patient's Response to Intervention: Pt reports some improvement in functioning and reports an appreciation of feeling validation from the group and treatment providers. Mental Status Exam: Affect and Mood: anxious, appropriate, and brightens with interaction Behavior: Pleasant, Cooperative, Engaging, and Interactive Cognition: Intact, Oriented X4, and Intelligent Additional comments: none Progress Towards Goals: Moderate Next Step(s): Continue with current services Additional Comments (optional): Pt is appropriate for [facility] level of care as participation helps to ensure pt is better able to effective control deterioration of symptoms. Participation in this level of care through improved level of functioning reduces risk of and/or can prevent relapse as well as avoid need for further hospitalization. [facility] 94 Outpatient [facility] Group Therapy Documentation Program: Partial Hospitalization Program Group Type: Partial Hospitalization Program Group Date: 03/22/2025 Facilitators: CLYDE Llanes Department: [facility] Group No: 2 Start Time: 10:00 AM No. of Participants: 9 End Time: 11:00 AM Group Topic: Art Therapy Summary of Group Activity: Facilitated group: Family Influence on Boundaries. Therapist facilitated processing of quotes related to the past not dictating your future. Therapist facilitated art intervention: Create a safe place/person/experience card to use while processing Draw Your Family as Food Art. Patient's level of participation in group process: Engaged in group process and Appeared eager to learn/discuss group topic Therapeutic Intervention utilized with Patient: Building rapport and engagement, Empathic listening, Psychoeducation, Modeling/skills training, Art therapy, Expressive therapy, and [place] Therapy Patient's Response to Intervention: Patient appropriately processed past not dictating your future quotes. Patient actively created safe place/person/experience card to use while processing Draw Your Family as Food Art. Mental Status Exam: Affect and Mood: appropriate Behavior: Pleasant and Cooperative Cognition: Intact Additional comments: None Progress Towards Goals: Moderate Next Step(s): Continue with current services Additional Comments (optional): Patient continues to need this level of care as patient reports ongoing symptoms severity that impedes patient's ability to meet demands of ADLS. Group No: 3 Start Time: 11:00 AM No. of Participants: 7 End Time: 12:00 PM Group Topic: Art Therapy Summary of Group Activity: Facilitated group: Family Influence on Boundaries. Therapist facilitated processing of art making experience. Therapist facilitated processing of individual family as food art. Patient's level of participation in group process: Engaged in group process Therapeutic Intervention utilized with Patient: Building rapport and engagement, Empathic listening, Psychoeducation, Art therapy, Expressive therapy, and [place] Therapy Patient's Response to Intervention: Patient, who has completed processing her art in previous sessions, actively listened and provided insight and support as other patients processed art making experience and actively engaged in processing their family as food art with the group. Mental Status Exam: Affect and Mood: appropriate Behavior: Pleasant and Cooperative Cognition: Intact Additional comments: None Progress Towards Goals: Moderate Next Step(s): Continue with current services Additional Comments (optional): Patient continues to need this level of care as patient reports ongoing symptoms severity that impedes patient's ability to meet demands of ADLS. [facility] 94 Outpatient [facility] Group Therapy Documentation Program: Partial Hospitalization Program Group Type: Partial Hospitalization Program Group Date: 03/22/2025 Facilitators: CLYDE Gorman Department: [facility] Group No: 1 Start Time: 9:00 AM No. of Participants: 10 End Time: 10:00 AM Group Topic: Check in Summary of Group Activity: Facilitated group check in. Patient's level of participation in group process: Engaged in group process and Provided support and/or feedback to others Therapeutic Intervention utilized with Patient: Building rapport and engagement, Empathic listening, and Modeling/skills training Patient's Response to Intervention: Pt rated mood 3/10, reports struggling with what is and realizing she cannot fix it. Mental Status Exam: Affect and Mood: anxious, appropriate, and depressed Behavior: Pleasant, Cooperative, Engaging, and Interactive Cognition: Intact and Oriented X4 Additional comments: None Progress Towards Goals: Minimal Next Step(s): Continue with current services Additional Comments (optional): Pt continues to present with significant sxs of impairment. Therefore, pt will continue with current services. [facility] Progress Noteon 03-22-2025 Progress Note --- Attestation signed by Xuan Echevarria MD at 03/22/2025 12:42 PM I saw and evaluated the patient, participating in the baeza portions of the service. I reviewed the resident?s note. I agree with the resident?s findings and plan. Xuan Echevarria MD PSYCHIATRY PARTIAL HOSPITALIZATION PROGRAM PROGRESS NOTE PATIENT: Gisela Turner MRD: [id number] DATE: March 22, 2025 IDENTIFYING INFORMATION: Gisela is a 54 y.o. female with a history of mood disorder and generalized anxiety disorder. CHIEF COMPLAINT: Over the weekend was not very good SUBJECTIVE: Patient was seen by this provider in the context of currently attending the [facility] Partial Hospitalization Program. Patient requested to talk to physician for medication change due to depression and anxiety. She reports increased stress and depression over the weekend, due to some difficult interactions with her family. Patient reports continuation of daily depression, low energy, low motivation, feeling easily overwhelmed, low appetite and insomnia. Sleep is starting to improve but still has trouble falling asleep at night. She reports continued anxiety on a daily basis as well, with ruminating thoughts and restlessness that interferes with her ability to perform daily duties. She denies suicidal ideation. She denies symptoms of helen or psychosis. Reports benefit from Lamictal and Pristiq for her depression. Does feel that Wellbutrin helped at first, has been on SR 100mg every day for 25 years but did not tolerate higher doses (had anxiety). Has never tried XL formulation. She reports compliance with medications and denies side effects. Is going after [facility] today to talk with a potential outpatient provider who can continue her care as she does not want to stay with her current outpatient provider. Medication side effects: None Suicidal/Homicidal Thoughts/Plans: Denies Substance Use History: See HPI above VITAL SIGNS: BP 137/84 (BP Location: Left arm, Patient Position: Sitting) Pulse 88 Temp 36.8 ?C (98.2 ?F) (Temporal) Resp 16 SpO2 97% LAB DATA: Reviewed MENTAL STATUS EXAMINATION: Appearance: Appears stated age, well developed, well nourished, normal clothing, grooming is within normal limits. Activity: Normal psychomotor activity, steady gait, normal muscle tone. Behavior: Cooperative, fair eye contact, responds appropriately and engages with evaluation. Speech: Spontaneous, normal rate, normal volume, clear. Mood: depressed Affect: Mood congruent, anxious, appropriate to context. Thought Process: Logical, coherent and rational. Thought Content: No suicidal ideation, intent or plan., No homicidal ideation, intent or plan. Coherent. No delusions, hallucinations, loose asociations, or ideas of reference. Cognition: Orientation: Person, place, time and situation Attention: Intact Concentration: Intact Language: Intact naming, intact repetition Estimated Intelligence: Average Memory: Intact recent memory, intact remote memory Abstraction: Intact Insight: Fair Judgement: Fair RISK ASSESSMENT: Low risk IMPRESSION: Mood disorder, unspecified Generalized anxiety disorder R/o PTSD PLAN: Continue enrollment in the [facility] Partial Hospitalization Program. Provided skilled nursing facility counselor and support. Encouraged ongoing use of coping skills, resiliency. Encouraged healthy and open communication. Medication: Continue current medications as currently prescribed. - Will discontinue Wellbutrin SR 100mg every day. Will start Wellbutrin XL 150mg every day for depression. Will monitor if better tolerated and more effective for depressive symptoms -Continue Lamictal 225 mg nightly for mood stabilization -Continue Pristiq 100 mg daily for depression and anxiety -Continue Seroquel 50 mg nightly for insomnia -Continue trazodone 50 mg nightly for insomnia Labs: Reviewed, no new labs ordered this visit. Referrals: No referrals made this visit. -At this time, the patient is not currently having SI, HI, or evidence of acute psychosis or acute medical illness, and thus can be safely treated at this level of care. -This patient is able to demonstrate capacity for medical decision making, and can consent to treatment. -Reviewed safety plan with the patient, including calling 911 and going to the nearest ER if they were to develop SI, HI, Hallucinations, or signs/symptoms of acute medical illness. Patient understands and agrees with the plan: Yes Discussed and saw patient with Dr. Xuan MCALLISTER DO 03/22/2025 10:11 AM (Please note that portions of this note may have been completed with a voice recognition program. Efforts were made to edit the dictations but occasionally words are mis-transcribed.) [facility] 94on 03-21-2025 94 Outpatient [facility] Group Therapy Documentation Program: Partial Hospitalization Program Group Type: Partial Hospitalization Program Group Date: 03/21/2025 Facilitators: CLYDE Lyman Department: [facility] Group No: 4 Start Time: 1:00 pm No. of Participants: 10 End Time: 2:00 pm Group Topic: Slowness and Savoring/Mindfulness Summary of Group Activity: Check-in, Psychoeducation and discussion of the topic of ?Slowness? in Positive Psychology. ?Where does compassion really come from?? by [employer], discussion of video. Patient's level of participation in group process: Engaged in group process, Interactive with other group members, and Appeared eager to learn/discuss group topic Therapeutic Intervention utilized with Patient: Building rapport and engagement, Empathic listening, Psychoeducation, Modeling/skills training, and Positive Psychotherapy Patient's Response to Intervention: Pt reports being able to use the skill of Radical Acceptance to manage some sxs of impairment. Pt reports some anxiety about her current medications. Mental Status Exam: Affect and Mood: anxious, appropriate, and brightens with interaction Behavior: Pleasant, Cooperative, Engaging, and Interactive Cognition: Intact, Oriented X4, and Intelligent Additional comments: none Progress Towards Goals: Minimal Next Step(s): Continue with current services Additional Comments (optional): Pt is appropriate for [facility] level of care as participation helps to ensure pt is better able to effective control deterioration of symptoms. Participation in this level of care through improved level of functioning reduces risk of and/or can prevent relapse as well as avoid need for further hospitalization. Group No: 5 Start Time: 2:15 pm No. of Participants: 10 End Time: 3:00 pm Group Topic: Slowness and Savoring/Mindfulness Summary of Group Activity: Patients discussed ways they could implement the skill of ?Slowness? into their daily life. Psychoeducation and discussion on the mindful quality of ?Savoring? in Positive Psychology. Patients discussed ways they could incorporate the quality of ?Savoring? in their daily life. Patient's level of participation in group process: Engaged in group process and Appeared eager to learn/discuss group topic Therapeutic Intervention utilized with Patient: Building rapport and engagement, Empathic listening, Psychoeducation, Modeling/skills training, and Positive Psychotherapy Patient's Response to Intervention: Pt reports being appreciative of the idea of slowing down, staying in the moment, and enjoying life. Mental Status Exam: Affect and Mood: anxious, appropriate, and brightens with interaction Behavior: Pleasant, Cooperative, and Engaging Cognition: Intact, Oriented X4, and Intelligent Additional comments: none Progress Towards Goals: Minimal Next Step(s): Continue with current services Additional Comments (optional): Pt is appropriate for [facility] level of care as participation helps to ensure pt is better able to effective control deterioration of symptoms. Participation in this level of care through improved level of functioning reduces risk of and/or can prevent relapse as well as avoid need for further hospitalization. Pt meet with DIEGO Gorman at this time. Therefore, patient was not present in session for a billable hour. [facility] 94 Outpatient [facility] Group Therapy Documentation Program: Partial Hospitalization Program Group Type: Partial Hospitalization Program Group Date: 03/21/2025 Facilitators: CLYDE Gorman; CLYDE Lyman Department: [facility] Group No: 1 Start Time: 9:00 AM No. of Participants: 11 End Time: 10:00 AM Group Topic: Check in Summary of Group Activity: Facilitated group check in. Patient's level of participation in group process: Engaged in group process and Provided support and/or feedback to others Therapeutic Intervention utilized with Patient: Building rapport and engagement, Empathic listening, and Modeling/skills training Patient's Response to Intervention: Pt rated mood -1/10, reports struggling with not feeling heard, feeling stuck. Mental Status Exam: Affect and Mood: anxious, appropriate, depressed Behavior: Pleasant, Cooperative, Engaging Cognition: Intact, Oriented X4 Additional comments: None Progress Towards Goals: Minimal Next Step(s): Continue with current services Additional Comments (optional): Pt continues to present with significant sxs of impairment. Therefore, pt will continue with current services. Group No: 2 Start Time: 10:10 AM No. of Participants: 10 End Time: 11:00 AM Group Topic: Anxiety Summary of Group Activity: Reviewed anxiety symptoms, group members completed Introduction to Anxiety worksheet and had opportunity to share with the group triggers, physical symptoms, thoughts, and coping. Group members shared anxiety monster. 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 Mental Status Exam: Affect and Mood: anxious, appropriate, and depressed Behavior: Pleasant, Cooperative, and Engaging Cognition: Intact and Oriented X4 Additional comments: None Progress Towards Goals: Minimal Next Step(s): Continue with current services Additional Comments (optional): Pt continues to present with significant sxs of impairment. Therefore, pt will continue with current services. Group No: 3 Start Time: 11:10 AM No. of Participants: 10 End Time: 12:00 PM Group Topic: Anxiety Summary of Group Activity: Reviewed coping strategies for managing and reducing anxiety symptoms. 6 pack exercise to challenge automatic thoughts. Patient's level of participation in group process: Engaged in group process, Interactive with other group members, Appeared eager to learn/discuss group topic, and Provided support and/or feedback to others Therapeutic Intervention utilized with Patient: Building rapport and engagement, Empathic listening, Cognitive Behavioral Therapy (CBT), Psychoeducation, and Modeling/skills training Patient's Response to Intervention: Pt was engaged in group discussion, attentive to material, followed along. Mental Status Exam: Affect and Mood: anxious, appropriate, and depressed Behavior: Pleasant, Cooperative, Engaging, and Interactive Cognition: Intact and Oriented X4 Additional comments: None Progress Towards Goals: Minimal Next Step(s): Continue with current services Additional Comments (optional): Pt continues to present with significant sxs of impairment. Therefore, pt will continue with current services. [facility] 94on 03-18-2025 94 Outpatient [facility] Group Therapy Documentation Program: Partial Hospitalization Program Group Type: Partial Hospitalization Program Group Date: 03/18/2025 Facilitators: CLYDE Gorman Department: [facility] Group No: 1 Start Time: 9:00 AM No. of Participants: 8 End Time: 10:00 AM Group Topic: Relaxation/mindfulness Summary of Group Activity: Facilitated group check in. Group members had opportunity to process difficult emotions that came up during art therapy yesterday. Guided meditation on safety. Patient's level of participation in group process: Engaged in group process, Interactive with other group members, Appeared eager to learn/discuss group topic, and Provided support and/or feedback to others Therapeutic Intervention utilized with Patient: Building rapport and engagement, Empathic listening, Psychoeducation, and Modeling/skills training Patient's Response to Intervention: Pt rated mood 6/10, reports struggling with being tired and not having energy to do things. Pt engaged in group discussion about difficult emotions that came up after art therapy, related to others. Mental Status Exam: Affect and Mood: anxious, appropriate, brightens with interaction, and depressed Behavior: Pleasant, Cooperative, Engaging, and Interactive Cognition: Intact and Oriented X4 Additional comments: None Progress Towards Goals: Minimal Next Step(s): Continue with current services Additional Comments (optional): Pt continues to present with significant sxs of impairment. Therefore, pt will continue with current services. Group No: 2 Start Time: 10:10 AM No. of Participants: 8 End Time: 11:00 AM Group Topic: Relaxation/mindfulness Summary of Group Activity: Provided psychoeducation for relaxation and mindfulness skills to manage anxiety and other difficult emotions. Provided psychoeducation on benefits of practicing skills when calm/not needed to prepare for when they are. Practiced progressive muscle relaxation and body scan. Patient's level of participation in group process: Engaged in group process and Appeared eager to learn/discuss group topic Therapeutic Intervention utilized with Patient: Building rapport and engagement, Empathic listening, Psychoeducation, and Modeling/skills training Patient's Response to Intervention: Pt engaged in progressive muscle relaxation and body scan. Mental Status Exam: Affect and Mood: anxious, appropriate, brightens with interaction, and depressed Behavior: Pleasant, Cooperative, Engaging, and Interactive Cognition: Intact and Oriented X4 Additional comments: None Progress Towards Goals: Minimal Next Step(s): Continue with current services Additional Comments (optional): Pt continues to present with significant sxs of impairment. Therefore, pt will continue with current services. Group No: 3 Start Time: 11:10 AM No. of Participants: 7 End Time: 12:00 PM Group Topic: Music therapy Summary of Group Activity: Group members played music trivia where they listen to songs and name the song and artist. Music was played in a way to practice mindfulness and riding the wave when emotions associated with difficult emotions arose. Patient's level of participation in group process: Engaged in group process, Interactive with other group members, and Appeared eager to learn/discuss group topic Therapeutic Intervention utilized with Patient: Building rapport and engagement, Empathic listening, Psychoeducation, and Modeling/skills training Patient's Response to Intervention: Pt participated in music therapy, was interactive with others. Mental Status Exam: Affect and Mood: appropriate and brightens with interaction Behavior: Pleasant, Cooperative, Engaging, and Interactive Cognition: Intact and Oriented X4 Additional comments: None Progress Towards Goals: Minimal Next Step(s): Continue with current services Additional Comments (optional): Pt continues to present with significant sxs of impairment. Therefore, pt will continue with current services. [facility] 94 Outpatient [facility] Group Therapy Documentation Program: Partial Hospitalization Program Group Type: Partial Hospitalization Program Group Date: 03/18/2025 Facilitators: CLYDE Lyman Department: [facility] Group No: 4 Start Time: 1:00 pm No. of Participants: 6 End Time: 2:00 pm Group Topic: Accumulating Positives in the Short Term Summary of Group Activity: Check-in, Patients and counselor discussed the importance and reasons why to do small positive activities to help improve mood, functioning, and wellbeing. Patient's level of participation in group process: Engaged in group process, Interactive with other group members, and Appeared eager to learn/discuss group topic Therapeutic Intervention utilized with Patient: Building rapport and engagement, Empathic listening, Dialectical Behavioral Therapy skills (DBT), Psychoeducation, and Modeling/skills training Patient's Response to Intervention: Pt reports being able to use breathing as a coping skill to manage some sxs of impairment. Pt reports some anxiety about being around her family in the future. Mental Status Exam: Affect and Mood: anxious, appropriate, and brightens with interaction Behavior: Pleasant, Cooperative, Engaging, and Interactive Cognition: Intact, Oriented X4, and Intelligent Additional comments: none Progress Towards Goals: Moderate Next Step(s): Continue with current services Additional Comments (optional): Pt is appropriate for [facility] level of care as participation helps to ensure pt is better able to effective control deterioration of symptoms. Participation in this level of care through improved level of functioning reduces risk of and/or can prevent relapse as well as avoid need for further hospitalization. Group No: 5 Start Time: 2:15 pm No. of Participants: 6 End Time: 3:00 pm Group Topic: Accumulating Positives in the Short Term Summary of Group Activity: Patients made a list of small positive activities they could engage in to improve and manage their mood in the short term. Patients and counselor discussed potential barriers to these activities. DBT worksheets were given to patients in order to track their progress over time in accumulating small positive events in the short term. Patient's level of participation in group process: Engaged in group process, Interactive with other group members, and Appeared eager to learn/discuss group topic Therapeutic Intervention utilized with Patient: Building rapport and engagement, Empathic listening, Dialectical Behavioral Therapy skills (DBT), Psychoeducation, and Modeling/skills training Patient's Response to Intervention: Pt reports finding it helpful to remember to self-sooth, take a break, and do something for herself. Mental Status Exam: Affect and Mood: anxious, appropriate, and brightens with interaction Behavior: Pleasant, Cooperative, Engaging, and Interactive Cognition: Intact, Oriented X4, and Intelligent Additional comments: none Progress Towards Goals: Moderate Next Step(s): Continue with current services Additional Comments (optional): Pt is appropriate for [facility] level of care as participation helps to ensure pt is better able to effective control deterioration of symptoms. Participation in this level of care through improved level of functioning reduces risk of and/or can prevent relapse as well as avoid need for further hospitalization. [facility] 94on 03-17-2025 94 Outpatient [facility] Group Therapy Documentation Program: Partial Hospitalization Program Group Type: Partial Hospitalization Program Group Date: 03/17/2025 Facilitators: CLYDE Gorman Department: [facility] Group No: 4 Start Time: 1:00 PM No. of Participants: 10 End Time: 2:00 PM Group Topic: Anxiety Summary of Group Activity: Facilitated group check in. Provided psychoeducation and facilitated group discussion on anxiety, symptoms of anxiety, types of anxiety, cycle of anxiety, and treatments. Patient's level of participation in group process: Engaged in group process, Interactive with other group members, Appeared eager to learn/discuss group topic, and Provided support and/or feedback to others Therapeutic Intervention utilized with Patient: Building rapport and engagement, Empathic listening, Psychoeducation,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 soft, non-tender, BS normal, No masses or organomegaly EXTREMITIES: Extremities normal, no deformities, edema, clubbing or skin discoloration. Good capillary refill., No ulcers NEURO: Gait normal. Reflexes normal and symmetric. Sensation grossly intact, Cranial nerves II-XII intact DATA: Diagnostic tests reviewed for today's visit: Recent Labs 02/18/25 1609 CK 67 Recent Labs 02/18/25 1609 SPGR 1.010 UGLUC Negative UBILI Negative UKET Negative UHB Negative UPROT Negative UWBC 0-5 /HPF Most recent labs and imaging results. Assessment/Plan Principal Problem: Bipolar depression (HCC) (POA: Yes) Assessment AND Plan: wellbutrin pristiq lamictal and seroquel Urinary frequency stable on sanctura Gerd stable on protonix Postmenopausal estrace replacement Hyperlipidemia lipitor nightly IBS bentyl with meals and at bedtime Pelvic pain vaginal neurontin ` Superficial lacerations dtap and bactroban topically Dietary restrictions will have dietary see pt Migraine headache tylenol and motrin available asking for biofreeze as well . Toradol helped her headache as well Gluten free diet pt is doing better and happy with diet offered Pt is medically stable for discharge Resolved Problems: * No resolved hospital problems. * Discussed with nursing SI (more content not included)... [facility] NURSING PROGon 02-24-2025 NURSING PROG HNO ID: [id number] Author: HERNAN LIZAMA, RN Service: Nursing Author Type: Registered Nurse Type: Nursing Progress Note Filed: 02/24/2025 10:34 Note Text: Nursing Progress Note Patient Name: Gisela Turner Patient Location: [place] [address]/[facility] Daily Note:Pt ate breakfast in the day area and showered. Pt denies SI/HI AVH. Compliant with medications. Encouraged to seek staff with any changes or concerns. Will continue to monitor until discharge. DASA 0/7 Low Risk This note was completed by: Hernan Lizama [facility] CONSULT PROGon 02-23-2025 CONSULT PROG HNO ID: [id number] Author: JENELLE RENEE MD Service: Hospital Medicine Author Type: Physician Type: Consult Progress Note Filed: 02/23/2025 13:44 Note Text: INPATIENT PROGRESS NOTE SERVICE DATE: 02/23/2025 SERVICE TIME: 9:20 AM Components of this note have been copied forward from prior dates. Today the patient has been seen and examined, case reviewed and changes have been made to the note as charted. Subjective CHIEF COMPLAINT: Bipolar depression (HCC) PRIMARY SERVICE: Psych ADMITTING HPI: Ms. Turner is a 54 year old female who presents for worsening depression and suicidal ideations . Was on depakote in the past but stopped taking it . States it has just gone down hill since then . She cut herself superficially the day of admission . Today she is seen in the day [place] . She denies any medical complaints to me but rn calls later and pt was requesting bentyl for IBS INTERVAL HPI: pt is seen in the day [place]. Looks and feels better . Headache is resolved . Eating better and spoke with dance teacher Current Facility-Administered Medications Medication Dose Route Frequency hydrOXYzine HCl 25 mg tab(s) (ATARAX) 25 mg ORAL q 6 H PRN aluminum-magnesium hydroxide-simethicone 200-200-20 mg/5 mL 30 mL 30 mL ORAL q 4 H PRN magnesium hydroxide 400 mg/5 mL 30 mL (MOM) 30 mL ORAL DAILY PRN ibuprofen 600 mg tab(s) (MOTRIN) 600 mg ORAL q 6 H PRN LORazepam 0.25 mg tab(s) (ATIVAN) 0.25 mg ORAL q 6 H PRN aspirin, enteric coated 81 mg tab(s) 81 mg ORAL DAILY atorvastatin 20 mg tab(s) (LIPITOR) 20 mg ORAL AT BEDTIME pantoprazole DR 40 mg tab(s) (PROTONIX) 40 mg ORAL DAILY (6 AM) trospium 20 mg tab(s) (SANCTURA) 20 mg ORAL DAILY (7 AM) desvenlafaxine ER 100 mg tab(s) (PRISTIQ) 100 mg ORAL DAILY buPROPion SR 100 mg tab(s) (WELLBUTRIN SR) 100 mg ORAL DAILY traZODone 50 mg tab(s) (DESYREL) 50 mg ORAL AT BEDTIME PRN estradiol 1 g vaginal cream (ESTRACE) 1 g VAGINAL 2/WK GABAPENTIN 4% VAGINAL CREAM COMPOUNDED PATIENT OWN MEDICATION 4 each VAGINAL TID PRN dicyclomine 20 mg tab(s) (BENTYL) 20 mg ORAL QID PRN estradiol 1 mg tab(s) (ESTRACE) 1 mg ORAL AT BEDTIME acetaminophen 1,000 mg tab(s) (TYLENOL) 1,000 mg ORAL q 6 H PRN ondansetron orally disintegrating 4 mg tab(s) (ZOFRAN ODT) 4 mg ORAL q 6 H PRN methyl salicylate 15% - menthol 10% topical cream TOPICAL QID PRN QUEtiapine 50 mg tab(s) (SEROquel) 50 mg ORAL AT BEDTIME gabapentin 100 mg cap(s) (NEURONTIN) 100 mg ORAL AT BEDTIME lamoTRIgine (LaMICtal) tab(s) 225 mg 225 mg ORAL AT BEDTIME Objective REVIEW OF SYSTEMS: GENERAL: No weight loss, malaise or fevers HEENT: Negative for frequent or significant headaches, No changes in hearing or vision, no nose bleeds or other nasal problems RESPIRATORY: Negative for cough, hemoptysis, wheezing, COPD, dyspnea or shortness of breath CARDIOVASCULAR: Negative for chest pain, leg swelling, hypertension, CHF or palpitations GI: No nausea, vomiting, or diarrhea : No history of dysuria, frequency or incontinence MUSCULOSKELETAL: Negative for joint pain or swelling, back pain or muscle pain SKIN: Negative for lesions, rash, and itching NEURO: No history of headaches, syncope, paralysis, seizures or tremors PHYSICAL EXAM: BP 129/77 Pulse 94 Temp (Src) 97.9 (Temporal) Resp 18 Ht 5' 3 (1.60m) Wt 130 lb (59.0kg) SpO2 98% LMP 09/13/2013 BMI 23.03 kg/(m2). O2 Therapy: Room Air GENERAL: Alert, no distress, cooperative SKIN: Skin color, texture, turgor normal. No rashes or lesions. HEAD/SINUSES: No significant findings LUNGS: Lungs clear to auscultation, Good diaphragmatic excursion CARDIAC: Normal S1 and S2; no rubs, murmurs, or gallops ABDOMEN: Abdomen soft, non-tender, BS normal, No masses or organomegaly EXTREMITIES: Extremities normal, no deformities, edema, clubbing or skin discoloration. Good capillary refill., No ulcers NEURO: Gait normal. Reflexes normal and symmetric. Sensation grossly intact, Cranial nerves II-XII intact DATA: Diagnostic tests reviewed for today's visit: Recent Labs 02/18/25 1609 CK 67 Recent Labs 02/18/25 1609 SPGR 1.010 UGLUC Negative UBILI Negative UKET Negative UHB Negative UPROT Negative UWBC 0-5 /HPF Most recent labs and imaging results. Assessment/Plan Principal Problem: Bipolar depression (HCC) (POA: Yes) Assessment AND Plan: wellbutrin pristiq lamictal and seroquel Urinary frequency stable on sanctura Gerd stable on protonix Postmenopausal estrace replacement Hyperlipidemia lipitor nightly IBS bentyl with meals and at bedtime Pelvic pain vaginal neurontin ` Superficial lacerations dtap and bactroban topically Dietary restrictions will have dietary see pt Migraine headache tylenol and motrin available asking for biofreeze as well . Toradol helped her headache as well Gluten free diet pt is doing better and happy with diet offered Resolved Problems: * No resolved hospital problems. * Dis (more content not included)... [facility] NURSING PROGon 02-23-2025 NURSING PROG HNO ID: [id number] Author: AFTAB MORTON RN Service: ? Author Type: Registered Nurse Type: Nursing Progress Note Filed: 02/23/2025 22:56 Note Text: Daily Note: RN met with pt in the day area. Initially, pt is in good spirits but she becomes tearful when speaking about her . Pt believes that her has unrealistic expectations regarding her mental health. Pt feels that it makes it difficult to focus on herself without complete support of her . Support and reassurance provided. Pt rates both anxiety and depression 4/10. Pt denies SI/HI/AVH. No current physical complaints or concerns voiced. Ptverbalizes safety on the unit. Pt encouraged to seek staff with any issues. Safety maintained through hourly nursing rounds and q 15 minute safety checks. DASA 0/ - low risk 2251: Trazodone 50 mg administered for insomnia. This note was completed by: Aftab Morton [facility] NURSING PROG HNO ID: [id number] Author: TAWANA SHEPPARD RN Service: Nursing Author Type: Registered Nurse Type: Nursing Progress Note Filed: 02/23/2025 11:11 Note Text: Daily Note: Pt out in the day [place] when approached. Pt pleasant and calm. Pt reports feeling groggy this morning. Pt voiced that her anxiety is a 2/10 and depression 3/10. Pt denies SI, HI, and AVH. Pt at this time voiced no complaints and denies concerns. Pt encouraged to seek staff with any needs. Will continue to monitor pt DASA:0/7, low risk [facility] CONSULT PROGon 02-22-2025 CONSULT PROG HNO ID: [id number] Author: JENELLE RENEE MD Service: Hospital Medicine Author Type: Physician Type: Consult Progress Note Filed: 02/22/2025 15:37 Note Text: INPATIENT PROGRESS NOTE SERVICE DATE: 02/22/2025 SERVICE TIME: 8:57 AM Components of this note have been copied forward from prior dates. Today the patient has been seen and examined, case reviewed and changes have been made to the note as charted. Subjective CHIEF COMPLAINT: Bipolar depression (HCC) PRIMARY SERVICE: Psych ADMITTING HPI: Ms. Turner is a 54 year old female who presents for worsening depression and suicidal ideations . Was on depakote in the past but stopped taking it . States it has just gone down hill since then . She cut herself superficially the day of admission . Today she is seen in the day [place] . She denies any medical complaints to me but rn calls later and pt was requesting bentyl for IBS INTERVAL HPI: pt is seen in her room . Talking on her phone . States she is doing better at this time . Denies any cp or sob Current Facility-Administered Medications Medication Dose Route Frequency hydrOXYzine HCl 25 mg tab(s) (ATARAX) 25 mg ORAL q 6 H PRN aluminum-magnesium hydroxide-simethicone 200-200-20 mg/5 mL 30 mL 30 mL ORAL q 4 H PRN magnesium hydroxide 400 mg/5 mL 30 mL (MOM) 30 mL ORAL DAILY PRN ibuprofen 600 mg tab(s) (MOTRIN) 600 mg ORAL q 6 H PRN LORazepam 0.25 mg tab(s) (ATIVAN) 0.25 mg ORAL q 6 H PRN aspirin, enteric coated 81 mg tab(s) 81 mg ORAL DAILY atorvastatin 20 mg tab(s) (LIPITOR) 20 mg ORAL AT BEDTIME pantoprazole DR 40 mg tab(s) (PROTONIX) 40 mg ORAL DAILY (6 AM) trospium 20 mg tab(s) (SANCTURA) 20 mg ORAL DAILY (7 AM) desvenlafaxine ER 100 mg tab(s) (PRISTIQ) 100 mg ORAL DAILY buPROPion SR 100 mg tab(s) (WELLBUTRIN SR) 100 mg ORAL DAILY traZODone 50 mg tab(s) (DESYREL) 50 mg ORAL AT BEDTIME PRN estradiol 1 g vaginal cream (ESTRACE) 1 g VAGINAL 2/WK GABAPENTIN 4% VAGINAL CREAM COMPOUNDED PATIENT OWN MEDICATION 4 each VAGINAL TID PRN dicyclomine 20 mg tab(s) (BENTYL) 20 mg ORAL QID PRN estradiol 1 mg tab(s) (ESTRACE) 1 mg ORAL AT BEDTIME lamoTRIgine 200 mg tab(s) (LaMICtal) 200 mg ORAL AT BEDTIME acetaminophen 1,000 mg tab(s) (TYLENOL) 1,000 mg ORAL q 6 H PRN ondansetron orally disintegrating 4 mg tab(s) (ZOFRAN ODT) 4 mg ORAL q 6 H PRN methyl salicylate 15% - menthol 10% topical cream TOPICAL QID PRN QUEtiapine 50 mg tab(s) (SEROquel) 50 mg ORAL AT BEDTIME gabapentin 100 mg cap(s) (NEURONTIN) 100 mg ORAL AT BEDTIME Objective REVIEW OF SYSTEMS: GENERAL: No weight loss, malaise or fevers HEENT: Negative for frequent or significant headaches, No changes in hearing or vision, no nose bleeds or other nasal problems RESPIRATORY: Negative for cough, hemoptysis, wheezing, COPD, dyspnea or shortness of breath CARDIOVASCULAR: Negative for chest pain, leg swelling, hypertension, CHF or palpitations GI: No nausea, vomiting, or diarrhea : No history of dysuria, frequency or incontinence MUSCULOSKELETAL: Negative for joint pain or swelling, back pain or muscle pain SKIN: Negative for lesions, rash, and itching NEURO: No history of headaches, syncope, paralysis, seizures or tremors PHYSICAL EXAM: BP 114/73 Pulse 79 Temp (Src) 97.7 (Temporal) Resp 16 Ht 5' 3 (1.60m) Wt 130 lb (59.0kg) SpO2 97% LMP 09/13/2013 BMI 23.03 kg/(m2). GENERAL: Alert, no distress, cooperative SKIN: Skin color, texture, turgor normal. No rashes or lesions. HEAD/SINUSES: No significant findings LUNGS: Lungs clear to auscultation, Good diaphragmatic excursion CARDIAC: Normal S1 and S2; no rubs, murmurs, or gallops ABDOMEN: Abdomen soft, non-tender, BS normal, No masses or organomegaly EXTREMITIES: Extremities normal, no deformities, edema, clubbing or skin discoloration. Good capillary refill., No ulcers NEURO: Gait normal. Reflexes normal and symmetric. Sensation grossly intact, Cranial nerves II-XII intact DATA: Diagnostic tests reviewed for today's visit: Recent Labs 02/18/25 1609 CK 67 Recent Labs 02/18/25 1609 SPGR 1.010 UGLUC Negative UBILI Negative UKET Negative UHB Negative UPROT Negative UWBC 0-5 /HPF Most recent labs and imaging results. Assessment/Plan Principal Problem: Bipolar depression (HCC) (POA: Yes) Assessment AND Plan: wellbutrin pristiq lamictal and seroquel Urinary frequency stable on sanctura Gerd stable on protonix Postmenopausal estrace replacement Hyperlipidemia lipitor nightly IBS bentyl with meals and at bedtime Pelvic pain vaginal neurontin ` Superficial lacerations dtap and bactroban topically Dietary restrictions will have dietary see pt Migraine headache tylenol and motrin available asking for biofreeze as well . Toradol helped her headache as well Resolved Problems: * No resolved hospital problems. * Discussed with nursing SIGNATURE: Jenelle Renee MD PATIENT NAME: Gisela Turner DATE: (more content not included)... [facility] NURSING PROGon 02-22-2025 NURSING PROG HNO ID: [id number] Author: AFTAB MORTON, LAVON Service: ? Author Type: Registered Nurse Type: Nursing Progress Note Filed: 02/22/2025 21:01 Note Text: Daily Note: Pt is watching TV in the day area upon approach. Behavior is in control. Pt is friendly and cooperative during interaction. Pt's affect is bright. Pt reports feeling much better today due to not having any migraines. Per pt, art therapy was beneficial for her today and it helped to improve her mood. Pt rates both anxiety and depression 01/24. Pt denies SI/HI/AVH. Pt reports sleeping well last night with Trazodone and she received another PRN dose tonight, per request. No current physical complaints or concerns voiced. Pt verbalizes safety on the unit. Pt encouraged to seek staff with any issues. Safety maintained through hourly nursing rounds and q 15 minute safety checks. 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 Plan of Care: Diet: Adjusted per food preferences Follow-[facility]: [facility] Reassessment Nursing Admission Assessment Malnutrition Score: 1 Nutrition Intake: Diet Orders (From admission, onward) Start Ordered 02/22/25 1445 DIET SUPPLEMENTS START NOW Question Answer Comment Supplement 1 KATHY FARMS 1.0 CHOCOLATE Supplement 1 Frequency DINNER 02/22/25 1440 02/22/25 1445 DIET GASTRO INTESTINAL START NOW Question Answer Comment Gastro Intestinal GLUTEN CONTROLLED Tray Precautions SAFETY PLASTIC OR DISPOSABLE SERVICE RIVAS 02/22/25 1441 Anthropometrics: Body mass index is 23.03 kg/m?. Food Preferences: patient reports intolerance to fruits, honey, milk, yogurt, and gluten-adjusted diet according to preferences MNT Billing: $ Routine Care : 1-15 minutes SIGNATURE: Jazmine Sherwood DTR PATIENT NAME: Gisela Turner DATE: February 22, 2025 TIME: 2:49 PM [facility] CASE MANAGEMon 02-21-2025 CASE MANAGEM HNO ID: [id number] Author: ALIDA STYLES LISW Service: Social Work Author Type: Rip Saw Operator Type: Care Mgt Progress Note Filed: 02/21/2025 12:10 Note Text: BEHAVIORAL HEALTH SOCIAL WORK PROGRESS NOTE SERVICE DATE: 02/21/2025 SERVICE TIME: 1209 SW met with pt regarding dc planning; pt will return home with spouse and follow with Chirag, IVET confirmed pt has virtual appointment on 03/03; pts primary concern today is meeting with dietitian, no other concerns or complaints at this time; SW will continue to follow for ongoing support and coordination of outpatient care needs. SIGNATURE: MANNIE Cisse PATIENT NAME: Gisela Turner DATE: February 21, 2025 TIME: 12:08 PM [facility] CONSULT PROGon 02-21-2025 CONSULT PROG HNO ID: [id number] Author: JENELLE RENEE MD Service: Hospital Medicine Author Type: Physician Type: Consult Progress Note Filed: 02/21/2025 13:34 Note Text: INPATIENT PROGRESS NOTE SERVICE DATE: 02/21/2025 SERVICE TIME: 9:33 AM Components of this note have been copied forward from prior dates. Today the patient has been seen and examined, case reviewed and changes have been made to the note as charted. Subjective CHIEF COMPLAINT: Bipolar depression (HCC) PRIMARY SERVICE: Psych ADMITTING HPI: Ms. Turner is a 54 year old female who presents for worsening depression and suicidal ideations . Was on depakote in the past but stopped taking it . States it has just gone down hill since then . She cut herself superficially the day of admission . Today she is seen in the day [place] . She denies any medical complaints to me but rn calls later and pt was requesting bentyl for IBS INTERVAL HPI: pt is seen in room . She wants a gluten free diet . Feels we are forcing her to eat ade crackers! States she can eat no fruit Current Facility-Administered Medications Medication Dose Route Frequency hydrOXYzine HCl 25 mg tab(s) (ATARAX) 25 mg ORAL q 6 H PRN aluminum-magnesium hydroxide-simethicone 200-200-20 mg/5 mL 30 mL 30 mL ORAL q 4 H PRN magnesium hydroxide 400 mg/5 mL 30 mL (MOM) 30 mL ORAL DAILY PRN ibuprofen 600 mg tab(s) (MOTRIN) 600 mg ORAL q 6 H PRN LORazepam 0.25 mg tab(s) (ATIVAN) 0.25 mg ORAL q 6 H PRN aspirin, enteric coated 81 mg tab(s) 81 mg ORAL DAILY atorvastatin 20 mg tab(s) (LIPITOR) 20 mg ORAL AT BEDTIME pantoprazole DR 40 mg tab(s) (PROTONIX) 40 mg ORAL DAILY (6 AM) trospium 20 mg tab(s) (SANCTURA) 20 mg ORAL DAILY (7 AM) QUEtiapine 75 mg tab(s) (SEROquel) 75 mg ORAL AT BEDTIME desvenlafaxine ER 100 mg tab(s) (PRISTIQ) 100 mg ORAL DAILY buPROPion SR 100 mg tab(s) (WELLBUTRIN SR) 100 mg ORAL DAILY traZODone 50 mg tab(s) (DESYREL) 50 mg ORAL AT BEDTIME PRN estradiol 1 g vaginal cream (ESTRACE) 1 g VAGINAL 2/WK GABAPENTIN 4% VAGINAL CREAM COMPOUNDED PATIENT OWN MEDICATION 4 each VAGINAL TID PRN dicyclomine 20 mg tab(s) (BENTYL) 20 mg ORAL QID PRN estradiol 1 mg tab(s) (ESTRACE) 1 mg ORAL AT BEDTIME lamoTRIgine 200 mg tab(s) (LaMICtal) 200 mg ORAL AT BEDTIME acetaminophen 1,000 mg tab(s) (TYLENOL) 1,000 mg ORAL q 6 H PRN ondansetron orally disintegrating 4 mg tab(s) (ZOFRAN ODT) 4 mg ORAL q 6 H PRN Objective REVIEW OF SYSTEMS: GENERAL: No weight loss, malaise or fevers HEENT: Negative for frequent or significant headaches, No changes in hearing or vision, no nose bleeds or other nasal problems RESPIRATORY: Negative for cough, hemoptysis, wheezing, COPD, dyspnea or shortness of breath CARDIOVASCULAR: Negative for chest pain, leg swelling, hypertension, CHF or palpitations GI: No nausea, vomiting, or diarrhea : No history of dysuria, frequency or incontinence MUSCULOSKELETAL: Negative for joint pain or swelling, back pain or muscle pain SKIN: Negative for lesions, rash, and itching NEURO: No history of headaches, syncope, paralysis, seizures or tremors PHYSICAL EXAM: BP 137/78 Pulse 86 Temp (Src) 98.2 (Oral) Resp 18 Ht 5' 3 (1.60m) Wt 130 lb (59.0kg) SpO2 99% LMP 09/13/2013 BMI 23.03 kg/(m2). GENERAL: Alert, no distress, cooperative SKIN: Skin color, texture, turgor normal. No rashes or lesions. HEAD/SINUSES: No significant findings LUNGS: Lungs clear to auscultation, Good diaphragmatic excursion CARDIAC: Normal S1 and S2; no rubs, murmurs, or gallops ABDOMEN: Abdomen soft, non-tender, BS normal, No masses or organomegaly EXTREMITIES: Extremities normal, no deformities, edema, clubbing or skin discoloration. Good capillary refill., No ulcers NEURO: Gait normal. Reflexes normal and symmetric. Sensation grossly intact, Cranial nerves II-XII intact DATA: Diagnostic tests reviewed for today's visit: Recent Labs 02/18/25 1609 WBC 4.67 HB 12.9 HCT 38.2 PLT 226 NA 139 K 4.0 CHLOR 102 CO2 26 BUN 12 CREAT 0.84 GLUC 126* CA 9.0 Recent Labs 02/18/25 1609 CK 67 Recent Labs 02/18/25 1609 SPGR 1.010 UGLUC Negative UBILI Negative UKET Negative UHB Negative UPROT Negative UWBC 0-5 /HPF Most recent labs and imaging results. Assessment/Plan Principal Problem: Bipolar depression (HCC) (POA: Yes) Assessment AND Plan: wellbutrin pristiq lamictal and seroquel Urinary frequency stable on sanctura Gerd stable on protonix Postmenopausal estrace replacement Hyperlipidemia lipitor nightly IBS bentyl with meals and at bedtime Pelvic pain vaginal neurontin ` Superficial lacerations dtap and bactroban topically Dietary restrictions will have dietary see pt Migraine headache tylenol and motrin available asking for biofreeze as well Resolved Problems: * No resolved hospital problems. * Discussed with nursing SIGNATURE: Jenelle Renee MD PATIENT NAME: Gisela Turner DATE: (more content not included)... [facility] NURSING PROGon 02-21-2025 NURSING PROG HNO ID: [id number] Author: AFTAB MORTON RN Service: ? Author Type: Registered Nurse Type: Nursing Progress Note Filed: 02/21/2025 22:33 Note Text: Daily Note: Pt seeks out this RN for scheduled medications. Behavior is in control. Pt is calm and cooperative during interaction. Per pt, she doesn't feel much different. Pt describes both anxiety and depression as up and down. Pt denies SI/HI/AVH. Pt reports feeling stressed out due to family issues. Pt complains of a migraine and she received PRN Ibuprofen at this time. No other complaints or concerns voiced. Pt verbalizes safety on the unit. Pt encouraged to seek staff with any issues. Safety maintained through hourly nursing rounds and q 15 minute safety checks. 2008: Pt medicated with Trazodone 50 mg for insomnia, per request. DASA 0/7 - low risk This note was completed by: Aftab Odonnell [facility] NURSING PROG HNO ID: [id number] Author: TANIA BANKS, RN Service: Nursing Author Type: Registered Nurse Type: Nursing Progress Note Filed: 02/21/2025 10:39 Note Text: Nursing Progress Note Patient Name: Gisela Turner Patient Location: [id number]/[id number] Daily Note: Patient was up this morning and then returned to her room to lay back down. Patient woke easily.. She was cooperative with assessment. Patient denied current suicidal and homicidal ideation. She reports having anxiety but not enough to require prn hydroxyzine. Patient denies having hallucinations. During the conversation, patient reports that she has an issue with snacks here. She states that she cannot eat ade crackers. The patient states that she had some snacks brought in last night by family. According to the patient, she has an intolerance to honey. Because of this, dietary was consulted to help provide the patient was what she needs. During each of the interactions, the patient has not verbalized or exhibited anything that would indicate that she is internally stimulated. Patient has performed all of her ADLs without any prompting from staff. She has been cooperative and calm during every interaction thus far. Pt denied any physical complaints and no visible distress was present. The pt denies pain, shortness of breath, chest tightness, abdominal pain or pressure, and denies having problems with urinating or defecating. Support and reassurance given. No acute physical distress observed or voiced. Pt agrees to inform staff of any questions, needs, complaints, concerns, or changes. Safety maintained via hourly RN rounding and q15 minute safety checks. DASA= 0/7 Low This note was completed by: Tania Odonnell [facility] CONSULT PROGon 02-20-2025 CONSULT PROG HNO ID: [id number] Author: JENELLE RENEE MD Service: Hospital Medicine Author Type: Physician Type: Consult Progress Note Filed: 02/20/2025 19:57 Note Text: INPATIENT PROGRESS NOTE SERVICE DATE: 02/20/2025 SERVICE TIME: 7:42 PM Components of this note have been copied forward from prior dates. Today the patient has been seen and examined, case reviewed and changes have been made to the note as charted. Subjective CHIEF COMPLAINT: Bipolar depression (HCC) PRIMARY SERVICE: Psych ADMITTING HPI: Ms. Turner is a 54 year old female who presents for worsening depression and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 psych safety clothing while belongings are inventoried. Pt shown to room and provided with welcome packet. Skin check completed. pt has multiple superficial self inflicted cuts to left wrist in multiple stages of healing. Pt came into the hospital following an increase in depression and suicidal ideation. Pt cut self superficially while in shower today as pt endorses many family related stressors. Pt also reports being off Depakote for about a year now and states it's just been down hill since then. Pt is currently denying SI/HI/AVH, anxiety and depression. Pt agrees to be safe on the unit and is monitored by staff q 15 minutes, rounded on hourly by RN. Pt is encouraged to address staff with questions or concerns, emotional support offered. DASA 0/7 Low Risk [facility] APAP SerPl-mCncon 02-18-2025 Acetaminophen [Mass/Vol] ug/mL Low 10-30 [facility] Comment on above: Order Comment: Speci men Type: BLOOD SPECIMENOrdering Facility: [facility] Address: [address] [place] [address] Result Comment: Toxi c > 150 ug/mL 4 hours post ingestion The Aj Prather nomogram can be used to estimate the probability of hepatotoxicity via the relationship of plasma acetaminophen concentration to the post ingestion interval. (Marck. Pediatrics. 1975. 55:871 to 876 and Aj et al. Arch [employer]er Med. 1981. 141:380 to 385). Reference ranges and high/low indicator flags are provided as general guidelines only. The treating physician must determine appropriate target levels/dosing based on the specific clinical situation. Performed By: #### 3 298-7, 5643-2, 4024-6 ####[facility] [id number] [address] [place] CBC W Auto Differential pane l (Bld)on 02-18-2025 Basophils (Bld) [#/Vol] 0.06 10*3/uL Normal <0.11 [facility] Comment on above: Order Comment: Speci men Type: BLOOD SPECIMEN Ordering Facility: [facility] Address: [address] [place] [address] Performed By: #### 5 7021-8 #### [facility] CLIA [id number] [address] [place] [address] [place] #### 51294-8 #### [facility] CLIA [id number] [address] [place] [address] [place] Basophils/100 WBC (Bld) 1.3 % [facility] Comment on above: Order Comment: Speci men Type: BLOOD SPECIMEN Ordering Facility: [facility] Address: [address] [place] [address] Performed By: #### 5 7021-8 #### [facility] CLIA [id number] [address] [place] [address] [place] #### 18780-6 #### [facility] CLIA [id number] [address] [place] [address] [place] Differential cell count method Nom (Bld) Auto [facility] Comment on above: Order Comment: Speci men Type: BLOOD SPECIMEN Ordering Facility: [facility] Address: [address] [place] [address] Performed By: #### 5 7021-8 #### [facility] CLIA [id number] [address] [place] [address] [place] #### 42077-9 #### [facility] CLIA [id number] [address] [place] [address] [place] Eosinophils (Bld) [#/Vol] 0.29 10*3/uL Normal <0.46 [facility] Comment on above: Order Comment: Speci men Type: BLOOD SPECIMEN Ordering Facility: [facility] Address: [address] [place] [address] Performed By: #### 5 7021-8 #### [facility] CLIA [id number] [address] [place] [address] [place] #### 25827-2 #### [facility] CLIA [id number] [address] [place] [address] [place] Eosinophils/100 WBC (Bld) 6.2 % [facility] Comment on above: Order Comment: Speci men Type: BLOOD SPECIMEN Ordering Facility: [facility] Address: [address] [place] [address] Performed By: #### 5 7021-8 #### [facility] CLIA [id number] [address] [place] [address] [place] #### 75143-2 #### [facility] CLIA [id number] [address] [place] [address] [place] Erythrocyte distribution width (RBC) [Ratio] 12.5 % Normal 11.5-15.0 [facility] Comment on above: Order Comment: Speci men Type: BLOOD SPECIMEN Ordering Facility: [facility] Address: [address] [place] [address] Performed By: #### 5 7021-8 #### [facility] CLIA [id number] [address] [place] #### 48404-0 #### [facility] CLIA [id number] [address] [place] [address] [place] Hematocrit (Bld) [Volume fraction] 38.2 % Normal 36.0-46.0 [facility] Comment on above: Order Comment: Speci men Type: BLOOD SPECIMEN Ordering Facility: [facility] Address: [facility] [place] [address] Performed By: #### 5 7021-8 #### [facility] CLIA [id number] [address] [place] #### 80476-6 #### [facility] CLIA [id number] [address] [place] [address] [place] Hemoglobin (Bld) [Mass/Vol] 12.9 g/dL Normal 11.5-15.5 [facility] Comment on above: Order Comment: Speci men Type: BLOOD SPECIMEN Ordering Facility: [facility] Address: [address] [place] [address] Performed By: #### 5 7021-8 #### [facility] CLIA [id number] [address] [place] [address] [place] #### 76317-3 #### [facility] CLIA [id number] [address] [place] [address] [place] Immature granulocytes (Bld) [#/Vol] 10*3/uL Normal <0.10 [facility] Comment on above: Order Comment: Speci men Type: BLOOD SPECIMEN Ordering Facility: [facility] Address: [address] [place] [address] Performed By: #### 5 7021-8 #### [facility] CLIA [id number] [address] [place] [address] [place] #### 13083-1 #### [facility] CLIA [id number] [address] [place] [address] [place] Immature granulocytes/100 WBC (Bld) 0.2 % [facility] Comment on above: Order Comment: Speci men Type: BLOOD SPECIMEN Ordering Facility: [facility] Address: [address] [place] [address] Performed By: #### 5 7021-8 #### [facility] CLIA [id number] [address] [place] [address] [place] #### 22330-9 #### [facility] CLIA [id number] [address] [place] [address] [place] Lymphocytes (Bld) [#/Vol] 2.13 10*3/uL Normal 1.00-4.00 [facility] Comment on above: Order Comment: Speci men Type: BLOOD SPECIMEN Ordering Facility: [facility] Address: [address] [place] [address] Performed By: #### 5 7021-8 #### [facility] CLIA [id number] [address] #### 56474-3 #### [facility] CLIA [id number] [address] [place] [address] [place] Lymphocytes/100 WBC (Bld) 45.6 % [facility] Comment on above: Order Comment: Speci men Type: BLOOD SPECIMEN Ordering Facility: [facility] Address: [address] [place] [address] Performed By: #### 5 7021-8 #### [facility] CLIA [id number] [address] [place] [address] #### 68178-9 #### [facility] CLIA [id number] [address] [place] [address] [place] MCH (RBC) [Entitic mass] 28.5 pg Normal 26.0-34.0 [facility] Comment on above: Order Comment: Speci men Type: BLOOD SPECIMEN Ordering Facility: [facility] Address: [address] [place] [address] Performed By: #### 5 7021-8 #### [facility] CLIA [id number] [address] [place] #### 76113-1 #### [facility] CLIA [id number] [address] [place] [address] [place] MCHC (RBC) [Mass/Vol] 33.8 g/dL Normal 30.5-36.0 [facility] Comment on above: Order Comment: Speci men Type: BLOOD SPECIMEN Ordering Facility: [facility] Address: [address] [place] [address] Performed By: #### 5 7021-8 #### [facility] CLIA [id number] [address] [place] #### 16365-0 #### [facility] CLIA [id number] [address] [place] [address] [place] MCV (RBC) [Entitic vol] 84.5 fL Normal 80.0-100.0 [facility] Comment on above: Order Comment: Speci men Type: BLOOD SPECIMEN Ordering Facility: [facility] Address: [address] [place] [address] Performed By: #### 5 7021-8 #### [facility] CLIA [id number] [address] #### 70934-4 #### [facility] CLIA [id number] [address] [place] [address] [place] Monocytes (Bld) [#/Vol] 0.48 10*3/uL Normal <0.87 [facility] Comment on above: Order Comment: Speci men Type: BLOOD SPECIMEN Ordering Facility: [facility] Address: [address] [place] [address] Performed By: #### 5 7021-8 #### [facility] CLIA [id number] [address] [place] #### 59038-0 #### [facility] CLIA [id number] [address] [place] [address] [place] Monocytes/100 WBC (Bld) 10.3 % [facility] Comment on above: Order Comment: Speci men Type: BLOOD SPECIMEN Ordering Facility: [facility] Address: [address] [place] [address] Performed By: #### 5 7021-8 #### [facility] CLIA [id number] [address] [place] #### 05679-7 #### [facility] CLIA [id number] [address] [place] [address] [place] Neutrophils (Bld) [#/Vol] 1.70 10*3/uL Normal 1.45-7.50 [facility] Comment on above: Order Comment: Speci men Type: BLOOD SPECIMEN Ordering Facility: [facility] Address: [address] [place] [address] Performed By: #### 5 7021-8 #### [facility] CLIA [id number] [address] [place] [address] [place] #### 71951-7 #### [facility] CLIA [id number] [address] [place] [address] [place] Neutrophils/100 WBC (Bld) 36.4 % [facility] Comment on above: Order Comment: Speci men Type: BLOOD SPECIMEN Ordering Facility: [facility] Address: [address] [place] [address] Performed By: #### 5 7021-8 #### [facility] CLIA [id number] [address] [place] [address] [place] #### 98908-6 #### [facility] CLIA [id number] [address] [place] [address] [place] Nucleated RBC (Bld) [#/Vol] 10*3/uL Normal <0.01 [facility] Comment on above: Order Comment: Speci men Type: BLOOD SPECIMEN Ordering Facility: [facility] Address: [address] [place] [address] Performed By: #### 5 7021-8 #### [facility] CLIA [id number] 1 [place] [address] [place] #### 60045-3 #### [facility] CLIA [id number] [address] [place] [address] [place] Nucleated RBC/100 WBC (Bld) [Ratio] 0.0 /100 WBC Normal [facility] Comment on above: Order Comment: Speci men Type: BLOOD SPECIMEN Ordering Facility: [facility] Address: [address] [place] [address] Performed By: #### 5 7021-8 #### [facility] CLIA [id number] [address] OF [facility] #### 47346-0 #### [facility] CLIA [id number] [address] [place] [address] [place] Platelet mean volume (Bld) [Entitic vol] 8.6 fL Low 9.0-12.7 [facility] Comment on above: Order Comment: Speci men Type: BLOOD SPECIMEN Ordering Facility: [facility] Address: [address] [place] [address] Performed By: #### 5 7021-8 #### [facility] CLIA [id number] [address] STATES OF [facility] #### 83458-3 #### [facility] CLIA [id number] [address] [place] [address] [place] Platelets (Bld) [#/Vol] 226 10*3/uL Normal 150-400 [facility] Comment on above: Order Comment: Speci men Type: BLOOD SPECIMEN Ordering Facility: [facility] Address: [address] [place] [address] Performed By: #### 5 7021-8 #### [facility] CLIA [id number] [address] [place] #### 41259-4 #### [facility] CLIA [id number] [address] [place] [address] [place] RBC (Bld) [#/Vol] 4.52 10*6/uL Normal 3.90-5.20 [facility] Comment on above: Order Comment: Speci men Type: BLOOD SPECIMEN Ordering Facility: [facility] Address: [address] [place] [address] Performed By: #### 5 7021-8 #### [facility] CLIA [id number] [address] [place] #### 71276-3 #### [facility] CLIA [id number] [address] [place] [address] [place] WBC (Bld) [#/Vol] 4.67 10*3/uL Normal 3.70-11.00 [facility] Comment on above: Order Comment: Speci men Type: BLOOD SPECIMEN Ordering Facility: [facility] Address: [address] [place] [address] Performed By: #### 5 7021-8 #### [facility] CLIA [id number] [address] STATES [facility] #### 09241-1 #### [facility] CLIA [id number] [address] [place] [address] [place] CK SerPl-cCncon 02-18-2025 CK [Catalytic activity/Vol] 67 U/L Normal 42-196 [facility] Comment on above: Order Comment: Speci men Type: BLOOD SPECIMENOrdering Facility: [facility] Address: [address] [place] [address] Performed By: #### 2 157-6, 3016-3, LIPNF, 88567-1 ####[facility] [id number] [address] [place] Comprehensive metabolic 2000 panelon 02-18-2025 Albumin [Mass/Vol] 4.1 g/dL Normal 3.9-4.9 [facility] Comment on above: Order Comment: Speci men Type: BLOOD SPECIMENOrdering Facility: [facility] Address: [address] [place] [address] Performed By: #### 2 157-6, 3016-3, LIPNF, 57893-7 ####[facility] [id number] [address] [place] ALP [Catalytic activity/Vol] 133 U/L High 34-123 [facility] Comment on above: Order Comment: Speci men Type: BLOOD SPECIMENOrdering Facility: [facility] Address: [address] [place] [address] Performed By: #### 2 157-6, 3016-3, LIPNF, 23117-0 ####[facility] [id number] [place] [address] [place] ALT With P-5'-P [Catalytic activity/Vol] 20 U/L Normal 7-38 [facility] Comment on above: Order Comment: Speci men Type: BLOOD SPECIMENOrdering Facility: [facility] Address: [address] [place] [address] Performed By: #### 2 157-6, 3015-3, LIPNF, 54782-6 ####[facility] [id number] [address] Anion gap [Moles/Vol] 11 mmol/L Normal 8-15 [facility] Comment on above: Order Comment: Speci men Type: BLOOD SPECIMENOrdering Facility: [facility] Address: [address] [place] [address] Performed By: #### 2 157-6, 3015-3, LIPNF, 06492-3 ####[facility] [id number] [address] STATES OF [facility] AST With P-5'-P [Catalytic activity/Vol] 25 U/L Normal 13-35 [facility] Comment on above: Order Comment: Speci men Type: BLOOD SPECIMENOrdering Facility: [facility] Address: [address] [place] [address] Performed By: #### 2 157-6, 301-3, LIPNF, 61266-3 ####[facility] [id number] [address] [place] Bilirubin [Mass/Vol] 0.4 mg/dL Normal 0.2-1.3 [facility] Comment on above: Order Comment: Speci men Type: BLOOD SPECIMENOrdering Facility: [facility] Address: [address] [place] [address] Performed By: #### 2 157-6, 3016-3, LIPNF, 64878-5 ####[facility]IA [id number] [place] [address] [place] Calcium [Mass/Vol] 9.0 mg/dL Normal 8.5-10.2 [facility] Comment on above: Order Comment: Speci men Type: BLOOD SPECIMENOrdering Facility: [facility] Address: [address] [place] [address] Performed By: #### 2 157-6, 3016-3, LIPNF, 52984-9 ####[facility]IA [id number] [place] [address] [place] Chloride [Moles/Vol] 102 mmol/L Normal 98-107 [facility] Comment on above: Order Comment: Speci men Type: BLOOD SPECIMENOrdering Facility: [facility] Address: [address] [place] [address] Performed By: #### 2 157-6, 3016-3, LIPNF, 56941-9 ####[facility]ORY[facility]IA [id number] [place] [address] [place] CO2 [Moles/Vol] 26 mmol/L Normal 22-30 [facility] Comment on above: Order Comment: Speci men Type: BLOOD SPECIMENOrdering Facility: [facility] Address: [address] [place] [address] Performed By: #### 2 157-6, 3016-3, LIPNF, 01643-4 ####[facility]ORY[facility]IA [id number] [place] [address] [place] Creatinine [Mass/Vol] 0.84 mg/dL Normal 0.58-0.96 [facility] Comment on above: Order Comment: Speci men Type: BLOOD SPECIMENOrdering Facility: [facility] Address: [address] [place] [address] Performed By: #### 2 157-6, 3016-3, LIPNF, 89196-5 ####[facility] [id number] [address] OF [facility] Creatinine and Glomerular filtration rate.predicted panel (S/P/Bld) 83 mL/min/1.73m??? Normal >=60 [facility] Comment on above: Order Comment: Speci francisco Type: BLOOD SPECIMENOrdering Facility: [facility] Address: [address] [place] [address] Result Comment: Kathryn mated Glomerular Filtration Rate (eGFR) is calculated using the 2020 CKD-EPI creatinine equation. This equation utilizes serum creatinine, sex, and age as parameters. The creatinine assay has traceable calibration to isotope dilution-mass spectrometry. Refer to KDIGO guidelines for clinical interpretation. In patients with unstable renal function, e.g. those with acute kidney injury, the eGFR may not accurately reflect actual GFR. Performed By: #### 2 157-6, 3016-3, GREGORIO, 74539-3 ####[facility] [id number] [address] [place] Glucose [Mass/Vol] 126 mg/dL High 74-99 [facility] Comment on above: Order Comment: Benson francisco Type: BLOOD SPECIMENOrdering Facility: [facility] Address: [address] [place] [address] Result Comment: The [place] Diabetes Association (ADA) provides guidance for cutoff values for fasting glucose and random glucose. The ADA defines fasting as no caloric intake for at least 8 hours. Fasting plasma glucose results between 100 to 125 mg/dL indicate increased risk for diabetes (prediabetes). Fasting plasma glucose results greater than or equal to 126 mg/dL meet the criteria for diagnosis of diabetes. In the absence of unequivocal hyperglycemia, results should be confirmed by repeat testing. In a patient with classic symptoms of hyperglycemia or hyperglycemic crisis, random plasma glucose results greater than or equal to 200 mg/dL meet the criteria for diagnosis of diabetes. Reference: Standards of Medical Care in Diabetes 2016, [place] [employer] Association. Diabetes Care. 2016.39(Suppl 1). Performed By: #### 2 157-6, 3016-3, LIPNF, 53895-2 ####[facility]ORY[facility]IA [id number] [place] [address] [place] Potassium [Moles/Vol] 4.0 mmol/L Normal 3.7-5.1 [facility] Comment on above: Order Comment: Speci men Type: BLOOD SPECIMENOrdering Facility: [facility] Address: [address] [place] [address] Performed By: #### 2 157-6, 3016-3, LIPNF, 78624-3 ####[facility]ORYCLIA [id number] [place] [id number] [place] Protein [Mass/Vol] 7.1 g/dL Normal 6.3-8.0 [facility] Comment on above: Order Comment: Speci men Type: BLOOD SPECIMENOrdering Facility: [facility] Address: [address] [place] [address] Performed By: #### 2 157-6, 3016-3, LIPNF, 73883-6 ####[facility]ORY[facility]IA [id number] [address] [place] Sodium [Moles/Vol] 139 mmol/L Normal 136-144 [facility] Comment on above: Order Comment: Speci men Type: BLOOD SPECIMENOrdering Facility: [facility] Address: [address] [place] [address] Performed By: #### 2 157-6, 3016-3, LIPNF, 17392-8 ####[facility]ORYCLIA [id number] [place] [id number] [place] Urea nitrogen [Mass/Vol] 12 mg/dL Normal 7-21 [facility] Comment on above: Order Comment: Speci men Type: BLOOD SPECIMENOrdering Facility: [facility] Address: [address] [place] [address] Performed By: #### 2 157-6, 3016-3, LIPNF, 96471-5 ####[facility]ORYCLIA [id number] [place] [address] [place] ECG COMPLETEon 02-18-2025 ECG COMPLETE Ventricular Rate : 7 8 BPM Atrial Rate : 78 BPM P-R Interval : 172 ms QRS Duration : 68 ms Q-T Interval : 376 ms QTC Calculation(Bazett) : 428 ms Calculated P [place] : 78 degrees Calculated R [place] : 23 degrees Calculated T [place] : 63 degrees NORMAL SINUS RHYTHM CANNOT RULE OUT ANTERIOR INFARCT , AGE UNDETERMINED ABNORMAL ECG NO PREVIOUS ECGS AVAILABLE Confirmed by BUSHRA ACOSTA MD ([id number]) on 02/19/2025 9:59:01 AM NAME : GISELA TURNER PID : [id number] : 1970 Gender : Female Race : ORD : [id number] Procedure Date : Feb 18 2025 15:45:05 Edit Date : Feb 19 2025 09:59:06 Diagnosis: NORMAL SINUS RHYTHM CANNOT RULE OUT ANTERIOR INFARCT , AGE UNDETERMINED ABNORMAL ECG NO PREVIOUS ECGS AVAILABLE Confirmed by BUSHRA ACOSTA MD ([id number]) on 02/19/2025 9:59:01 AM Test Reason : Arrhythmia Location : 4 : [facility] Overread By : BUSHRA ACOSTA MD Edited By : BUSHRA ACOSTA MD Referred By : , Acquired by : JAYMIE FIGUEREDO [facility] ED NOTEon 02-18-2025 ED NOTE HNO ID: [id number] Author: KRISTINA DE LA CRUZ MD Service: Emergency Medicine Author Type: Resident Type: ED Notes Filed: 02/19/2025 15:50 Note Text: Attestation signed by Kristina De La Cruz MD at 02/19/2025 3:50 PM Attending Note I evaluated the patient and personally participated in the baeza components. I agree with the resident's findings and plan as documented and have discussed the case and management of the patient's care with the resident. Signature: Kristina De La Cruz MD Date: 02/19/2025 Time: 3:50 PM Suicide Assessment Five-step Evaluation and Triage (SAFE-T) for Mental Health Professionals 1 IDENTIFY RISK FACTORS Note those that can be modified to reduce risk 2 IDENTIFY PROTECTIVE FACTORS Note those that can be enhanced 3 CONDUCT SUICIDE INQUIRY Suicidal thoughts, plans, behavior and intent 4 DETERMINE RISK LEVEL / INTERVENTION Determine risk. Choose appropriate intervention to address and reduce risk 5 DOCUMENT Assessment of risk,rationale, intervention and follow up Suicide assessments should be conducted at first contact, with any subsequent suicidal behavior, increased ideation, or pertinent clinical Change; for inpatients, prior to increasing privileges and at discharge. 1. RISK FACTORS ? Suicidal behavior: history of prior suicide attempts, aborted suicide attempts or self-injurious behavior ? Current/past psychiatric disorders: especially mood disorders, psychotic disorders, alcohol/substance abuse, ADHD, TBI, PTSD, Cluster B personality disorders, conduct disorders (antisocial behavior, aggression, impulsivity). Co-morbidity and recent onset of illness increase risk ? Baeza Symptoms: anhedonia, impulsivity, hopelessness, anxiety/panic, insomnia, command hallucinations ? Family history: of suicide, attempts, or [place] 1 psychiatric disorders requiring hospitalization ? Precipitants/Stressors/ Interpersonal: triggering events leading to humiliation, shame or despair (e.g; loss of relationship, financial or Health status-real or anticipated). Ongoing medical illness (juanita. BUSINESS OPERATIONS MANAGER disorders, pain). Intoxication. Family turmoil/chaos. History of Physical or sexual abuse. Social isolation. ? Change in treatment: discharge from psychiatric hospital, provider or treatment change ? Access to firearms 2. PROTECTIVE FACTORS protective factors, even if present, may not counteract significant acute risk ? Internal: ability to cope with stress, hinduism beliefs, frustration tolerance ? External: responsibility to children or beloved pets, positive therapeutic relationships, social supports 3. SUICIDE INQUIRY Specific questioning about thoughts, plans, behaviors, intent ? Ideation: frequency, intensity, duration- - in last 48 hours, past month and worst ever ? Plan: timing, location, lethality, availability, preparatory acts ? Behaviors: past attempts, aborted attempts, rehearsals (tying noose, loading gun), vs. non -suicidal self injurious actions ? Intent: extent to which the patient (1) expects to carry out the plan and (2) believes the plan/act to be lethal vs. self-injurious; Explore ambivalence: reasons to vs. reasons to live *For Youths: ask parent/guardian about evidence of suicidal thoughts, plans, or behaviors, and changes in mood, behaviors or disposition * Homicide Inquiry: when indicated, juanita. in character disordered or paranoid males dealing with loss or humiliation. Inquire in four areas listed above. 4. RISK LEVEL/INTERVENTION ? Assessment of risk level is based on clinical judgment, after completing steps 1-3 ? Reassess as patient or environmental circumstances change RISK LEVEL RISK/PROTECTIVE FACTOR SUICIDALITY POSSIBLE INTERVENTIONS High Psychiatric disorders with severe symptoms, or acute precipitating event; protective factors not relevant Potentially lethal suicide attempt or persistent ideation with strong intent or suicide rehearsal Admission generally indicated unless a significant change reduces risk. Suicide precautions Moderate Multiple risk factors, few protective factors Suicidal ideation with plan, but no intent or behavior Admission may be necessary depending on risk factors. Develop crisis plan. Give emergency/crisis numbers Low Modifiable risk factors, strong protective factors Thoughts of , no plan, intent or behavior Outpatient referral, symptom reduction. Give emergency/crisis numbers 5. DOCUMENT Risk level and rationale; treatment plan to address/reduce current risk (e.g; setting, medication, psychotherapy, E.C.T, contact with significant others, consultations); firearm instructions, if relevant; follow up plan. For youths, treatment plan should include roles for parent / guardian. SUICIDE RISK LEVEL: HML: low RATIONALE FOR RISK LEVEL (see (more content not included)... [facility] ED NOTE HNO ID: [id number] Author: GEORGETTE SCHULZ RN Service: ? Author Type: Registered Nurse Type: ED Notes Filed: 02/18/2025 19:47 Note Text: Pt provided crackers and jeane jackie per request [facility] ED NOTE HNO ID: [id number] Author: GEORGETTE SCHULZ, LAVON Service: ? Author Type: Registered Nurse Type: ED Notes Filed: 02/18/2025 17:57 Note Text: Pt offered food, declined at this time. [facility] ED NOTE HNO ID: [id number] Author: GEORGETTE SCHULZ, LAVON Service: ? Author Type: Registered Nurse Type: ED Notes Filed: 02/18/2025 16:15 Note Text: OK to D/C 1:[address] Solo [facility] ED NOTE HNO ID: [id number] Author: JESSE DONAHUE, LAVON Service: ? Author Type: Registered Nurse Type: ED Notes Filed: 02/18/2025 15:04 Note Text: Bed: 33- Expected date: Expected time: Means of arrival: Comments: BH ONLY [facility] ED PROV NOTEon 02-18-2025 ED PROV NOTE HNO ID: [id number] Author: KRISTINA DE LA CRUZ MD Service: Emergency Medicine Author Type: Physician Type: ED Provider Notes Filed: 02/19/2025 23:41 Note Text: HPI 54-year-old female who presents today with chief complaints of suicidal ideation. She does endorse thoughts of self-harm and has had some cutting behavior over the past week. Denies somatic complaints. PE Gen:awake, alert, NAD CV:RRR Pulm:CTAB Abd:soft, NT, ND +SI DDX includes but not limited to:depression, anxiety, substance induced mood d/o ED course and plan Patient presents with suicidal ideation. We will obtain psychiatric screening labs and discuss this patient with psychiatry. No electrolyte abnormality. EKG shows normal sinus rhythm with no ST elevation, no prior for comparison. Psych recs pending at sign out. Attending Note I evaluated the patient and personally participated in the baeza components. I agree with the resident's findings and plan as documented and have discussed the case and management of the patient's care with the resident. Signature: Kristina De La Cruz MD Date: 02/19/2025 Time: 11:40 PM KRISTINA DE LA CRUZ IVKOVICH 02/19/25 2341 [facility] ED PROV NOTE HNO ID: [id number] Author: KRISTINA DE LA CRUZ MD Service: Emergency Medicine Author Type: Resident Type: ED Provider Notes Filed: 02/22/2025 10:26 Note Text: Attestation signed by Kristina De La Cruz MD at 02/22/2025 10:26 AM Attending Note I evaluated the patient and personally participated in the baeza components. I agree with the resident's findings and plan as documented and have discussed the case and management of the patient's care with the resident. Signature: Kristina De La Cruz MD Date: 02/22/2025 Time: 10:26 AM ED Provider Note Patient Name: Gisela Turner : 1970 SERVICE DATE: 02/18/25 History Patient presents with: Psychiatric Problem: Presents ambulatory requesting psych eval for depression, sad thoughts, sleeping a lot. States she has SI that comes and goes. + self harm 54-year-old female presents ED with a chief complaint of thoughts of self-harm twice this week noting mild abrasions to left wrist. Additionally, patient states that she has had worsening depression over a year with intermittent thoughts of self-harm though denies suicide ideation, homicide ideation, thoughts of harming others. Pertinent past medical history for this patient does include previous self-harm but does not include previous SI. Additional past medical history as documented. PAST MEDICAL HISTORY Diagnosis Date - Abdominal pain, right upper quadrant - Bipolar affective (HCC) 01/03/2012 - CHOLELITH W CHOLECYS NEC 12/16/2005 - Major depression 01/03/2012 - Mastodynia 12/20/2011 - PMH - PAST MEDICAL HISTORY OF 05/19/2001 MIGRAINES - PMH - PAST MEDICAL HISTORY OF 12/09/2001 DEPRESSION PAST SURGICAL HISTORY Procedure Laterality Date - COLONOSCOPY W/BIOPSY SINGLE/MULTIPLE 07-13-13 - DILATION AND CURETTAGE DXAND/THER NONOBSTETRIC 07/01/2013 Dilation AND curettage - EGD TRANSORAL BIOPSY SINGLE/MULTIPLE 12/20/05 - LAPS ABD PRTMANDOMENTUM DX W/WO SPEC BR/WA SPX 07/01/2013 Laparoscopy - LAPS SURG CHOLECYSTECTOMY W/CHOLANGIOGRAPHY 12/25/05 - LAPS W/VAG HYSTERECT 250 GM/ANDRMVL TUBEAND/OVARIES 09-16-13 LAVH/RSO, left salpingectomy - PAST SURGICAL HISTORY OF nose - STEREOTACTIC LOCALIZATION BREAST BIOPSY Right 08/03/2018 - TONSILLECTOMY PRIMARY/SECONDARY Tonsillectomy FAMILY HISTORY Problem Relation Age of Onset - Arthritis Mother - Stroke Mother - other (anorexia) Mother - Heart Father - No Known Problems Brother - No Known Problems Brother - No Known Problems Brother - Arthritis Maternal Grandmother - Heart Maternal Grandfather - Arthritis Maternal Grandfather - Breast Cancer Maternal Aunt Social History Tobacco Use - Smoking status: Never - Smokeless tobacco: Never Vaping Use - Vaping status: Never Used Substance and Sexual Activity - Alcohol use: No - Drug use: No - Sexual activity: Not Currently Partners: Male control/protection: Surgical ALLERGIES Allergen Reactions - Amoxicillin Hives - Bactrim [Sulfametho* Rash - Diphenhydramine Other: See Comments - Gluten Flour Intolerance Pt reports migraines from flour - Moxifloxacin Hives - Septra [Sulfamethox* Rash - Trileptal [Oxcarbaz* - Zomig [Zolmitriptan] - Zyprexa [Olanzapine] Review of Systems Physical Exam Vitals [02/18/25 1501] BP Pulse Temp Temp src Resp SpO2 Weight Height 173/86 80 36.7 ?C (98.1 ?F) Oral 16 99 % -- -- Physical Exam Vitals and nursing note reviewed. Constitutional: General: She is not in acute distress. Appearance: Normal appearance. She is normal weight. She is not ill-appearing. HENT: Head: Normocephalic and atraumatic. Nose: Nose normal. Mouth/Throat: Mouth: Mucous membranes are moist. Pharynx: Oropharynx is clear. Eyes: Conjunctiva/sclera: Conjunctivae normal. Pupils: Pupils are equal, round, and reactive to light. Cardiovascular: Rate and Rhythm: Normal rate and regular rhythm. Pulses: Normal pulses. Heart sounds: Normal heart sounds. No murmur heard. No friction rub. Pulmonary: Effort: Pulmonary effort is normal. No respiratory distress. Breath sounds: Normal breath sounds. No stridor. No wheezing or rhonchi. Abdominal: General: Abdomen is flat. Bowel sounds are normal. There is no distension. Palpations: Abdomen is soft. There is no mass. Tenderness: There is no abdominal tenderness. There is no guarding or rebound. Hernia: No hernia is present. Musculoskeletal: General: No swelling, tenderness, deformity or signs of injury. Cervical back: Normal range of motion and neck supple. No rigidity. Skin: General: Skin is warm and dry. Capillary Refill: Capillary refill takes less than 2 seconds. Coloration: Skin is not jaundiced or pale. Findings: Lesion present. Comments: Minimal healing abrasions noted to left wrist Neurologi (more content not included)... Normal [facility] Ethanol SerPl-mCncon 025 Ethanol [Mass/Vol] mg/dL Normal <11 [facility] Comment on above: Order Comment: Speci men Type: BLOOD SPECIMENOrdering Facility: [facility] Address: [address] [place] [address] Performed By: #### 3 298-7, 5643-2, 4024-6 ####[facility]ORYCLIA [id number] [place] [address] [place] HbA1c (Bld)on 02-18-2025 Average glucose Estimated from glycated hemoglobin (Bld) [Mass/Vol] 105 mg/dL Normal [facility] Comment on above: Order Comment: Speci men Type: BLOOD SPECIMEN Ordering Facility: [facility] Address: [address] [place] [address] Result Comment: eAG: (Estimated average glucose) is a calculated value from HgbA1c and is utility sales representative of the average blood glucose level in the last 2-3 month period. Performed By: #### 5 7021-8 #### [facility] CLIA [id number] [address] [place] [address] [place] #### 70983-7 #### [facility] CLIA [id number] [address] [place] [address] [place] OF [facility] HbA1c (Bld) [Mass fraction] 5.3 % Normal 4.3-5.6 [facility] Comment on above: Order Comment: Benson singh Type: BLOOD SPECIMEN Ordering Facility: [facility] Address: [address] [place] [address] Result Comment: Amer ican Diabetes Association guidelines indicate that patients with HgbA1c in the range 5.7-6.4% are at increased risk for development of diabetes, and intervention by lifestyle modification may be beneficial. HgbA1c greater or equal to 6.5% is considered diagnostic of diabetes. Performed By: #### 5 7021-8 #### [facility] CLIA [id number] [address] STATES OF [facility] #### 29404-4 #### [facility] CLIA [id number] [address] [place] [address] [place] LIPID PANEL, NONFASTINGon Cholesterol [Mass/Vol] 175 mg/dL Normal <200 [facility] Comment on above: Order Comment: Benson singh Type: BLOOD SPECIMENOrdering Facility: [facility] Address: [address] [place] [address] Result Comment: <200 mg/dL, Desirable 200-239 mg/dL, Borderline high >239 mg/dL, High Performed By: #### 2 157-6, 3016-3, LIPNF, 03236-7 ####[facility] [id number] [address] [place] HDL CHOLESTEROL, NF 57 mg/dL Normal >39 [facility] Comment on above: Order Comment: Benson singh Type: BLOOD SPECIMENOrdering Facility: [facility] Address: [address] [place] [address] Result Comment: 40-5 9 mg/dL, Acceptable >59 mg/dL, High: Negative risk factor for coronary heart disease <40 mg/dL, Low: Positive risk factor for coronary heart disease Performed By: #### 2 157-6, 3016-3, LIPNF, 79329-8 ####[facility]CLIA [id number] [place] [address] [place] LDL CHOLESTEROL, NF 94 mg/dL Normal <100 [facility] Comment on above: Order Comment: Speci men Type: BLOOD SPECIMENOrdering Facility: [facility] Address: [address] [place] [address] Result Comment: <100 mg/dL, Optimal 100-129 mg/dL, Near optimal/above optimal 130-159 mg/dL, Borderline high 160-189 mg/dL, High >189 mg/dL, Very high Secondary prevention optimal LDL Cholesterol levels are recommended to be < 70 mg/dL Performed By: #### 2 157-6, 3016-3, LIPCRISTAL, 38645-7 ####[facility] [id number] [address] STATES OF [facility] LDL/HDL RATIO, NF 1.65 mg/dL Normal <2.54 [facility] Comment on above: Order Comment: Speci men Type: BLOOD SPECIMENOrdering Facility: [facility] Address: [address] [place] [address] Result Comment: Refe carmen: 1. National Cholesterol Education Program ATP III Guideline At-A-Glance Quick Desk Reference: National Heart, Lung, and Blood [place]. National Institutes of Health. 2001: NIH Publication No. 01-3305. 2. An International Atherosclerosis Society position paper: global recommendations for the management of dyslipidemia: executive summary, Atherosclerosis. 2014: 232(2):410-413. Performed By: #### 2 157-6, 3016-3, GREGORIO, 09557-9 ####[facility] [id number] [address] [place] NON HDL CHOL, NF 118 mg/dL Normal <130 [facility] Comment on above: Order Comment: Speci men Type: BLOOD SPECIMENOrdering Facility: [facility] Address: [address] [place] [address] Result Comment: <130 mg/dL, Optimal 130-159 mg/dL, Near optimal/above optimal 160-189 mg/dL, Borderline high 190-219 mg/dL, High >219 mg/dL, Very high Secondary prevention optimal non HDL Cholesterol levels are recommended to be <100 mg/dL Performed By: #### 2 157-6, 3016-3, LIPNF, 97505-4 ####[facility]IA [id number] [address] OF [facility] T CHOL/HDL RATIO NF 3.07 mg/dL Normal <5.10 [facility] Comment on above: Order Comment: Speci men Type: BLOOD SPECIMENOrdering Facility: [facility] Address: [address] [place] [address] Performed By: #### 2 157-6, 3016-3, LIPNF, 05345-2 ####[facility]IA [id number] [address] TRIGLYCERIDES, NF 122 mg/dL Normal <150 [facility] Comment on above: Order Comment: Speci men Type: BLOOD SPECIMENOrdering Facility: [facility] Address: [address] [place] [address] Result Comment: <150 mg/dL, Normal 150-199 mg/dL, Borderline high 200-499 mg/dL, High >499 mg/dL, Very high Performed By: #### 2 157-6, 3016-3, LIPNF, 80620-2 ####[facility]IA [id number] [address] OF [facility] VLDL CHOLESTEROL, NF 24 mg/dL Normal <30 [facility] Comment on above: Order Comment: Speci men Type: BLOOD SPECIMENOrdering Facility: [facility] Address: [address] [place] [address] Performed By: #### 2 157-6, 3016-3, LIPNF, 61835-9 ####[facility]ORYCLIA [id number] [address] OF [place] Salicylates SerPl-mCncon Salicylates [Mass/Vol] mg/dL Low 3.0-30.0 [facility] Comment on above: Order Comment: Speci men Type: BLOOD SPECIMENOrdering Facility: [facility] Address: [address] [place] [address] Result Comment: The therapeutic range varies and has been reported to be 3.0 to 10.0 mg/dL for anti pyretic/analgesic conditions and 15.0 to 30.0 mg/dL for anti inflammatory/rheumatic fever conditions. Ranges published by the instrument public health physician. Reference ranges and high/low indicator flags are provided as general guidelines only. The treating physician must determine appropriate target levels/dosing based on the specific clinical situation. Performed By: #### 3 298-7, 5643-2, 4024-6 ####[facility] [id number] [address] OF [place] TOXICOLOGY SCREEN, ROUTINE U RINEon 02-18-2025 Amphetamines Confirm (U) [Mass/Vol] Negative Normal Negative [facility] Comment on above: Order Comment: Speci men Type: URINE SPECIMEN Ordering Facility: [facility] Address: [address] [place] [address] Result Comment: Cuto ff threshold at 1000 ng/mL. Performed By: #### U TOX2 #### [facility] CLIA [id number] [address] [place] BARBITURATES, URINE Negative Normal Negative [facility] Comment on above: Order Comment: Speci men Type: URINE SPECIMEN Ordering Facility: [facility] Address: [address] [place] [address] Result Comment: Cuto ff threshold at 200 ng/mL. Performed By: #### U TOX2 #### [facility] CLIA [id number] 1 [place] [address] [place] BENZODIAZEPINES, UR Negative Normal Negative [facility] Comment on above: Order Comment: Speci men Type: URINE SPECIMEN Ordering Facility: [facility] Address: [address] [place] [address] Result Comment: Cuto ff threshold at 200 ng/mL. Performed By: #### U TOX2 #### [facility] CLIA [id number] [address] [place] Cannabinoids Screen Ql (U) Negative Normal Negative [facility] Comment on above: Order Comment: Speci men Type: URINE SPECIMEN Ordering Facility: [facility] Address: [facility] [place] [address] Result Comment: Cuto ff threshold at 50 ng/mL. Performed By: #### U TOX2 #### [facility] CLIA [id number] [address] [place] Cocaine Ql (U) Negative Normal Negative [facility] Comment on above: Order Comment: Speci men Type: URINE SPECIMEN Ordering Facility: [facility] Address: [address] [place] [address] Result Comment: Cuto ff threshold at 300 ng/mL. Performed By: #### U TOX2 #### [facility] CLIA [id number] [address] [place] Ethanol (U) [Mass/Vol] <11 Normal <11 [facility] Comment on above: Order Comment: Speci men Type: URINE SPECIMEN Ordering Facility: [facility] Address: [address] [place] [address] Performed By: #### U TOX2 #### [facility] CLIA [id number] [address] Opiates Screen Ql (U) Negative Normal Negative [facility] Comment on above: Order Comment: Speci men Type: URINE SPECIMEN Ordering Facility: [facility] Address: [address] [place] [address] Result Comment: Cuto ff threshold at 300 ng/mL. Performed By: #### U TOX2 #### [facility] CLIA [id number] [address] [place] oxyCODONE cutoff Screen (U) [Mass/Vol] Negative Normal Negative [facility] Comment on above: Order Comment: Speci men Type: URINE SPECIMEN Ordering Facility: [facility] Address: [address] [place] [address] Performed By: #### U TOX2 #### [facility] CLIA [id number] [address] [place] Phencyclidine Ql (U) Negative Normal Negative [facility] Comment on above: Order Comment: Speci men Type: URINE SPECIMEN Ordering Facility: [facility] Address: [address] [place] [address] Result Comment: Cuto ff threshold at 25 ng/mL. Performed By: #### U TOX2 #### [facility] CLIA [id number] [address] OF [facility] TSH SerPl-aCncon 02-18-2025 TSH Qn 0.895 m[IU]/L Normal 0.270-4.200 [facility] Comment on above: Order Comment: Speci men Type: BLOOD SPECIMENOrdering Facility: [facility] Address: [address] [place] [address] Performed By: #### 2 157-6, 3016-3, LIPNF, 26731-5 ####[facility]ORYCLIA [id number] [address] Urinalysis complete panel (U )on 02-18-2025 Bilirubin Ql (U) Negative Normal Negative [facility] Comment on above: Order Comment: Speci men Type: URINE SPECIMEN Ordering Facility: [facility] Address: [address] [place] [address] Performed By: #### 2 4356-8 #### [facility] CLIA [id number] [address] Clarity (Unsp spec) Clear Normal Clear [facility] Comment on above: Order Comment: Speci men Type: URINE SPECIMEN Ordering Facility: [facility] Address: [address] [place] [address] Performed By: #### 2 4356-8 #### [facility] CLIA [id number] [address] Color (U) Light Yellow Normal yellow [facility] Comment on above: Order Comment: Speci men Type: URINE SPECIMEN Ordering Facility: [facility] Address: [address] [place] [address] Performed By: #### 2 4356-8 #### [facility] CLIA [id number] [address] Glucose Test strip (U) [Mass/Vol] Negative Normal Trace, Negative [facility] Comment on above: Order Comment: Speci men Type: URINE SPECIMEN Ordering Facility: [facility] Address: [address] [place] [address] Performed By: #### 2 4356-8 #### [facility] CLIA [id number] [address] Hemoglobin Ql (U) Negative Normal Negative, Trace [facility] Comment on above: Order Comment: Speci men Type: URINE SPECIMEN Ordering Facility: [facility] Address: [address] [place] [address] Performed By: #### 2 4356-8 #### [facility] CLIA [id number] [address] Ketones Ql (U) Negative Normal Negative, Trace [facility] Comment on above: Order Comment: Speci men Type: URINE SPECIMEN Ordering Facility: [facility] Address: [address] [place] [address] Performed By: #### 2 4356-8 #### [facility] CLIA [id number] [address] Leukocyte esterase Test strip Ql (U) Negative Normal Negative, 25 Esau/uL [facility] Comment on above: Order Comment: Speci men Type: URINE SPECIMEN Ordering Facility: [facility] Address: [address] [place] [address] Performed By: #### 2 4356-8 #### [facility] CLIA [id number] [address] Nitrite Ql (U) Negative Normal Negative [facility] Comment on above: Order Comment: Speci men Type: URINE SPECIMEN Ordering Facility: [facility] Address: [address] [place] [address] Performed By: #### 2 4356-8 #### [facility] CLIA [id number] [address] pH (U) 6.0 [pH] Normal 5.0-8.0 [facility] Comment on above: Order Comment: Speci men Type: URINE SPECIMEN Ordering Facility: [facility] Address: [address] [place] [address] Performed By: #### 2 4356-8 #### [facility] CLIA [id number] [address] Protein (U) [Mass/Vol] Negative Normal Trace , Negative [facility] Comment on above: Order Comment: Speci men Type: URINE SPECIMEN Ordering Facility: [facility] Address: [address] [place] [address] Performed By: #### 2 4356-8 #### [facility] CLIA [id number] [address] RBC LM.HPF (Urine sed) [#/Area] 0-3 /HPF Normal 0-3 /HPF [facility] Comment on above: Order Comment: Speci men Type: URINE SPECIMEN Ordering Facility: [facility] Address: [address] [place] [address] Performed By: #### 2 4356-8 #### [facility] CLIA [id number] [address] Specific gravity (U) [Rel density] 1.010 Normal 1.005-1.030 [facility] Comment on above: Order Comment: Speci men Type: URINE SPECIMEN Ordering Facility: [facility] Address: [address] [place] [address] Performed By: #### 2 4356-8 #### [facility] CLIA [id number] [address] Urobilinogen Ql (U) Normal Normal Normal [facility] Comment on above: Order Comment: Speci men Type: URINE SPECIMEN Ordering Facility: [facility] Address: [address] [place] [address] Performed By: #### 2 4356-8 #### [facility] CLIA [id number] [address] [place] WBC LM.HPF (Urine sed) [#/Area] 0-5 /HPF Normal 0-5 /HPF [facility] Comment on above: Order Comment: Speci men Type: URINE SPECIMEN Ordering Facility: [facility] Address: [address] [place] [address] Performed By: #### 2 4356-8 #### [facility] CLIA [id number] [address] [place] CNTHERAPYon 02-07-2025 CNTHERAPY OT/PT/Speech Visit (AKPTB) GISELA TURNER ([id number]) 1970 F Date Time Provider Department 02/07/25 11:30 AM ALKA SHEPPARD Date Time Provider Department Center 02/07/2025 11:30 AM [id number] SHEPPARD [facility] Reason for Visit: Physical Therapy [503] Primary Visit Diagnosis:Muscular incoordination [R27.8] Other Visit Diagnosis:Constipation, unspecified constipation type [K59.00] Allergies As of Date: 02/07/2025 Noted Allergy Reaction AMOXICILLIN 11/25/2005 4 - Hives BACTRIM (SULFAMETHOXAZOLE) 11/13/2011 2 - Rash DIPHENHYDRAMINE 10/07/2018 14 - Other: See Comments DELETED: GLUTEN FLOUR 10/21/2018 5 - Intolerance Comments: Pt reports migraines from flour MOXIFLOXACIN 06/04/2023 4 - Hives SEPTRA (SULFAMETHOXAZOLE-TRIME THO*11/25/2005 2 - Rash TRILEPTAL (OXCARBAZEPINE) 12/16/2005 ZOMIG (ZOLMITRIPTAN) 12/16/2005 ZYPREXA (OLANZAPINE) 12/16/2005 Date Reviewed: 01/25/2025 Reviewed by: Brittanie Daily RN - Fully Assessed Prescriptions as of 02/28/2025 - aspirin, enteric coated (ASPIRIN, ENTERIC COATED) 81 mg EC tablet Take 1 tablet by mouth once daily. - traZODone (DESYREL) 50 mg tablet Take 1 tablet by mouth at bedtime as needed. - lamoTRIgine (LAMICTAL) 200 mg tablet Take 1 tablet by mouth daily at bedtime. Take with 1 tablet of Lamotrigine 25 mg for combined dose of 225 mg. - lamoTRIgine (LAMICTAL) 25 mg tablet Take 1 tablet by mouth daily at bedtime. Take with 1 tablet of Lamotrigine 200 mg for a combined total dose of 225 mg. - melatonin 3 mg tablet Take 1 tablet by mouth daily at bedtime. Take 1-2 hours before bedtime. - PRISTIQ 100 mg 24 hr tablet Take 100 mg by mouth once daily. - lubiprostone (AMITIZA) 24 mcg capsule Take 1 capsule by mouth two times a day with meals. - estradiol (ESTRACE) 0.01 % (0.1 mg/gram) vaginal cream APPLY A PEA SIZED AMOUNT TO LOWER VAGINA AT BEDTIME TWICE WEEKLY - gabapentin in lipoderm topical cream 4% (CPD) Apply to affected area. External use only ? not for vaginal/vulvar use - oxybutynin XL (DITROPAN XL) 5 mg 24 hr tablet Take 1 tablet by mouth once daily. - mesalamine (CANASA) 1,000 mg suppository 1 Suppository by RECTAL route daily at bedtime. - estradiol (ESTRACE) 2 mg tablet Take 1 tablet by mouth once daily. - atorvastatin (LIPITOR) 20 mg tablet Take 20 mg by mouth once daily. - QUEtiapine (SEROQUEL) 50 mg tablet Take 1 tablet by mouth daily at bedtime. - lansoprazole (PREVACID) 30 mg capsule Take 30 mg by mouth once daily. - buPROPion SR (WELLBUTRIN SR) 100 mg 12 hr tablet Take 100 mg by mouth every morning. Facility-Administered Medications as of 02/28/2025 - onabotulinum toxin type A 100 Units injection (BOTOX) [employer] Essbase Developer: Therapy (PT/OT/Speech/Resp) ID: [id number] 02/07/2025 12:25 PM Author: ALKA SHEPPARD Signed by ALKA SHEPPARD PT on 02/07/2025 at 12:25 PM Document text: Program_ID:[id number] Access Code: [email or web address] URL: [email or web address]/ Date: 02-07-2025 Prepared By: Alka Sheppard Program Notes Exercises - Supine Diaphragmatic Breathing with Pelvic Floor Lengthening - 2 x daily - 7 x weekly - sets - 10 reps - Diaphragmatic Breathing in Child's Pose with Pelvic Floor Relaxation - 1-2 x daily - 7 x weekly - 2 sets - reps - Supine Lower Trunk Rotation - 1-2 x daily - 7 x weekly - sets - 10 reps - Hip Flexor Stretch on Step - 1-2 x daily - 7 x weekly - 3 sets - reps - Static Prone on Elbows - 1-2 x daily - 7 x weekly - 3 sets - reps - Cat Cow to Child's Pose - 1 x daily - 7 x weekly - 3 sets - 10 reps - Seated Hamstring Stretch - 2 x daily - 7 x weekly - 3 sets - reps - Right Standing Lateral Shift Correction at Wall - Hold - 2 x daily - 7 x weekly - sets - 10 reps - Supine Psoas Self-Massage - 1 x daily - 7 x weekly - sets - reps Patient Education - Get To Know Your Pelvic Floor- Female - cc Pelvic Floor - Constipation Massage - cc Pelvic Floor - Bladder Health AND Emptying Techniques - cc Pelvic Floor - Bowel Movement Education - cc Pelvic Floor - Winston Stool Chart - cc Pelvic Floor - Bowel Diary - cc Pelvic Floor Female Internal Pelvic Floor Self Massage - cc Pelvic Floor - Lubricants Normal [facility] THERAPY NTon 02-07-2025 THERAPY NT HNO ID: [id number] Author: ALKA SHEPPARD PT Service: ? Author Type: Physical Therapist Type: Therapy (PT/OT/Speech/Resp) Filed: 02/07/2025 12:25 Note Text: Program_ID:[id number] Access Code: [email or web address] URL: [email or web address]/ Date: 02-07-2025 Prepared By: Alka Sheppard Program Notes Exercises - Supine Diaphragmatic Breathing with Pelvic Floor Lengthening - 2 x daily - 7 x weekly - sets - 10 reps - Diaphragmatic Breathing in Child's Pose with Pelvic Floor Relaxation - 1-2 x daily - 7 x weekly - 2 sets - reps - Supine Lower Trunk Rotation - 1-2 x daily - 7 x weekly - sets - 10 reps - Hip Flexor Stretch on Step - 1-2 x daily - 7 x weekly - 3 sets - reps - Static Prone on Elbows - 1-2 x daily - 7 x weekly - 3 sets - reps - Cat Cow to Child's Pose - 1 x daily - 7 x weekly - 3 sets - 10 reps - Seated Hamstring Stretch - 2 x daily - 7 x weekly - 3 sets - reps - Right Standing Lateral Shift Correction at Wall - Hold - 2 x daily - 7 x weekly - sets - 10 reps - Supine Psoas Self-Massage - 1 x daily - 7 x weekly - sets - reps Patient Education - Get To Know Your Pelvic Floor- Female - cc Pelvic Floor - Constipation Massage - cc Pelvic Floor - Bladder Health AND Emptying Techniques - cc Pelvic Floor - Bowel Movement Education - cc Pelvic Floor - Winston Stool Chart - cc Pelvic Floor - Bowel Diary - cc Pelvic Floor Female Internal Pelvic Floor Self Massage - cc Pelvic Floor - Lubricants Normal [facility] CNOVon 01-25-2025 CNOV Office Visit (WHICCP ) GISELA TURNER ([id number]) 1970 F Date Time Provider Department 01/25/25 5:00 PM ROSIE STERLING [facility] During your visit today, we recorded the following information about you: Blood pressure Weight Height 135/80 62.6 kg 1.6 m Rosie Sterling MD 01/26/2025 1:58 PM Signed [facility] SECTION FOR CHRONIC PELVIC PAIN OUTPATIENT VISIT DATE 01/25/2025 OUTPATIENT VISIT TYPE FOLLOW UP CHIEF COMPLAINT Gisela Turner is a 54 year old female who presents for Chronic pelvic pain follow up. HISTORY OF PRESENT ILLNESS Gisela is a 54 year old female who is in today for chronic pelvic pain follow up. Since last visit: Pt unable to use vaginal flexeril due to c/o burning. Pt has been using the estrace cream. Pt reports pain is worse with wiping after urination. Intensity of pain: mild Average Pain level: 2 on a scale of 0-10, Emergency room visits for pain since last visit: no Level of physical activity and mobility: without much pain, does fine Quality of sleep: some nights good, some nights bad Mood: pretty good Side effects of medications for pain: no SUMMARY FROM LAST VISIT Date: 12/16/2024 Encounter Diagnosis ICD-10-CM 1. High-tone pelvic floor dysfunction M62.89 onabotulinum toxin type A 100 Units injection (BOTOX) cyclobenzaprine (FLEXERIL) 5 mg tablet CONSULT TO PHYSICAL THERAPY 2. 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 Dyspareunia in female N94.10 4. S/P hysterectomy Z90.710 Gisela Turner is a 54 year old female seen today for a pelvic pain evaluation. Gisela mentions that her pain started about 1.5 years ago. She is using a Gabapentin cream and estrogen cream for vulvodynia. Pt experiences burning with urination and pain with intercourse. Pt also does PFPT for chronic constipation, which has been helping her a lot. After her hysterectomy in 2022, Gisela's pain levels decreased. Physical exam reproduced vulvodynia and high tone pelvic floor pain. Consider vaginal Botox - see if insurance approves. Continue PFPT, and target pelvic floor. Reordered PFPT. Start Flexeril once daily at night vaginally, for 3-4 days, then as needed. Continue estrogen cream. Consider stopping Gabapentin cream, as I believe pain is coming from pelvic floor. Follow up in 3 months in person. TREATMENT HISTORY No specialty comments available. PHYSICAL EXAM BP 135/80 (BP Site: Right Arm, BP Position: Sitting) Ht 160 cm (5' 3) Wt 62.6 kg (138 lb 0.1 oz) LMP 09/13/2013 BMI 24.45 kg/m? Physical Exam 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 SENSITIVE EXAM: The sensitive examination was discussed with the Patient or Patient's Authorized Enterprise Resource Planner. As applicable, any other physician, advance practice provider, medical student, or other health professional student that will be observing or involved in the sensitive examination for educational or training purposes was discussed with the Patient or Authorized Enterprise Resource Planner. The Patient or Authorized Enterprise Resource Planner has agreed to proceed with the sensitive examination. (Sensitive examination includes inspection and/or palpation of the breasts, pelvis, prostate and anorectal regions). General: The patient is a well-appearing female in no acute distress. Examination Abdominal tenderness: Abdominal myofacial trigger points: neg Vaginal Vestibular tenderness: very tender on the L vestibule, well estrogenized Rectal tenderness: neg Bladder base tenderness: neg Pelvic Floor Musculature RIGHT SIDED Pubococcygeus: 1 Iliococcygeus: 2 Coccygeus: 1 Obturator: 1 LEFT SIDED Pubococcygeus: 3 Iliococcygeus: 3 Coccygeus: 3 Obturator: 3 (Pain Scale 1 to 3, 3= extreme) She gets extreme pain w L pelvic floor AND vestibule examined and starts to clench AND shake RV exam - deferred LABS/IMAGING: IMAGING: TVUS dated 07/27/2021: IMPRESSION: No acute abnormality. Left ovary was not visualized. ASSESSMENT/PLAN Encounter Diagnosis ICD-10-CM 1. High-tone pelvic floor dysfunction M62.89 onabotulinum toxin type A 100 Units injection (BOTOX) BUPivacaine HCl 50 mg injection (SENSORCAINE) TRIGGER POINT INJECTION MULTI 1-2 MUSCLE GR L>> R extreme Pelvic floor pain Did try TPI w vaginal botox 100 units today Fu 6 wks kanu Consider referral to maría spear Follow up in 6 wks virtually Patient verbalized understanding of the plan of care and all questions were answered to her stated satisfaction. Written and verbal health teaching given to patient, patient verbalizes understanding and agrees with treatment plan. Medical Decision Making: Problems: Moderate: 1+ chronic illnesses with change Data: Unique test result(s) reviewed: 1 Risk: (more content not included)... Normal [facility] Tati 01-25-2025 CNPN Telephone (GYNMN) GISELA TURNER ([id number]) 1970 F Date Time Provider Department 01/25/25 ROSIE STERLING GYNAK During your visit today, we recorded the following information about you: Rosie Sterling MD 01/25/2025 5:22 PM Signed Please put her on my schedule for virtual on 03/10/25 at 4 pm, patient aware Vazquez HassanCandy tsai 01/26/2025 12:04 PM Signed Done Candy Veras Allergies As of Date: 01/25/2025 Noted Allergy Reaction AMOXICILLIN 11/25/2005 4 - Hives BACTRIM (SULFAMETHOXAZOLE) 11/13/2011 2 - Rash DIPHENHYDRAMINE 10/07/2018 14 - Other: See Comments GLUTEN FLOUR 10/21/2018 5 - Intolerance Comments: Pt reports migraines from flour MOXIFLOXACIN 06/04/2023 4 - Hives SEPTRA (SULFAMETHOXAZOLE-TRIME THO*11/25/2005 2 - Rash TRILEPTAL (OXCARBAZEPINE) 12/16/2005 ZOMIG (ZOLMITRIPTAN) 12/16/2005 ZYPREXA (OLANZAPINE) 12/16/2005 Date Reviewed: 01/25/2025 Reviewed by: Brittanie Daily, RN - Fully Assessed Reason for Visit: Appointment [186] Prescriptions as of 01/26/2025 - gabapentin in lipoderm topical cream 4% (CPD) Apply to affected area. External use only ? not for vaginal/vulvar use - cyclobenzaprine (FLEXERIL) 5 mg tablet 1 tablet daily at bedtime. Use vaginally at night - oxybutynin XL (DITROPAN XL) 5 mg 24 hr tablet Take 1 tablet by mouth once daily. - mesalamine (CANASA) 1,000 mg suppository 1 Suppository by RECTAL route daily at bedtime. - estradiol (ESTRACE) 2 mg tablet Take 1 tablet by mouth once daily. - estradiol (ESTRACE) 0.01 % (0.1 mg/gram) vaginal cream APPLY A PEA SIZED AMOUNT TO LOWER VAGINA AT BEDTIME TWICE WEEKLY - atorvastatin (LIPITOR) 20 mg tablet - aspirin, enteric coated (ASPIRIN, ENTERIC COATED) 81 mg EC tablet Take by mouth. - traZODone (DESYREL) 50 mg tablet traZODone Trazodone Active 50 MG AT BEDTIME January 03, 2020 10:35pm 01-03-2020 [facility] ([id number]) - QUEtiapine (SEROQUEL) 50 mg tablet Take 1 tablet by mouth daily at bedtime. - desvenlafaxine ER (PRISTIQ) 50 mg 24 hr tablet Take 1 tablet by mouth once daily. - lansoprazole (PREVACID) 30 mg capsule Take 30 mg by mouth once daily. - LAMOTRIGINE (LAMICTAL ORAL) Take by mouth once daily. 200 mg daily - buPROPion SR (WELLBUTRIN SR) 100 mg 12 hr tablet Take 1 tablet by mouth once daily. Facility-Administered Medications as of 01/26/2025 - onabotulinum toxin type A 100 Units injection (BOTOX) Problem List As Of Date 01/25/2025 Noted Resolved Calculus of GB w/ other cystitis [K80.10] 12/16/2005 02/10/2012 Abdominal pain, unspecified site [R10.9] 12/16/2005 10/29/2013 GASTRITIS CHRONIC ATROPHIC( W/O Hemorrhage) [K2*12/20/2005 09/12/2016 Abdominal pain, right upper quadrant [R10.11] 12/20/2005 02/10/2012 Enlargement of lymph nodes [R59.9] 12/20/2011 Mastodynia [N64.4] 12/20/2011 02/10/2012 Bipolar affective [F31.9] 01/03/2012 Major depression [F32.9] 01/03/2012 Pelvic pain in female [R10.2] 06/30/2013 10/29/2013 Menorrhagia [N92.0] 06/30/2013 10/29/2013 Dysmenorrhea [N94.6] 06/30/2013 10/29/2013 Bipolar 2 disorder, major depressive episode (H*10/17/2018 Gastroesophageal reflux disease without esophag*10/19/2018 Muscular incoordination [R27.8] 03/31/2024 Constipation [K59.00] 07/28/2024 Diarrhea [R19.7] 08/17/2024 Vulvodynia [N94.819] 09/29/2024 Encounter Status:Closed by [facility] on 01/26/25 Normal [facility] [id number] 01-24-2025 [id number] HNO ID: [id number] Author: ALKA SHEPPARD PT Service: ? Author Type: Physical Therapist Type: [id number] Filed: 01/24/2025 13:15 Note Text: [facility] Physical Therapy Plan of Care Certification Patient Name: Gisela Turner : 1970 CC #: [id number] Date: 01/24/2025 To: Rosie Galloway PA-C From Therapist: Alka Sheppard PT RE: Patient Certification/ Recertification Your review, approval and electronic signature are required in order to comply with Payor: JEROME / Plan: BLUE CARD PPO OOS / Product Type: PPO / regulations. The identified Physical Therapy PLAN OF CARE for the patient is as follows: R27.8 Muscular incoordination (primary encounter diagnosis) K59.00 Constipation, unspecified constipation type PLAN OF CARE UPDATE: Assessment: Gisela Turner demonstrates minimal improvement in recreational activities, compromised bladder function, altered sexual function, and compromised bowel function. The patient has progressed toward goals. Patient continues to present with impairments in independence in exercise, posture, range of motion, strength, stress management, symptom management, and tissue tenderness that interfere with altered sexual function, physical activities . Current prognosis is Good due to: current objective clinical presentation, good overall health status, good support system/ coping skills . The patient will benefit from continued skilled therapy services to meet the updated goals for this plan of care as noted below. Goals for Episode of Care: created on 03/31/24 through 06/29/24, updated on 06/07/2024, 06/28/2024, 07/28/2024, 09/29/2024, 11/01/2024, 12/20/2024, 01/24/2025 Patient demonstrates independence and compliance with home exercise program.- ONGOING Patient displays improved range of motion, coordination, and muscle dynamics of pelvic floor as evidenced by the ability to lengthen without paradoxical contraction at least 75% of the time to normalize bladder/bowel function; reduce pelvic pain.-GOAL MET Patient to correctly isolate pelvic floor muscles without compensatory patterns of breath holding and gluteal use to improve bladder/bowel control.-MOSTLY MET Patient reports having >4 bowel movements per week without use of enema, suppositories, and reduced need for supplementation to demonstrate improved bowel function.-GOAL MET Patient reports increased water intake to >50 ounces/day to promote bladder and bowel health.-MOSTLY MET Patient demonstrates ability to perform diaphragmatic breathing and relaxation practice independently to allow for decreased muscle tightness, decreased pain, and improved bladder/bowel function. -PROGRESSING, 95% PROGRESS Patient will report 95% reduction in vaginal pain/burning within 12 weeks to enhance quality of life.- PROGRESSING Patient will report 0-1/10 pain with vaginal penetration within 12 weeks to improve tolerance for internal medical exams and sexual function - PROGRESSING Patient Goals: improve evacuation and defecation Time Frame for Goals and Treatment : 03/20/25 Planned Interventions, Frequency, and Duration: 1x every other week, 10 weeks Total Number of Visits Planned: 5 Patient to be seen for Therapeutic exercise (69439), Neuromuscular re-education (50262), Manual therapy (30699), Therapeutic activities (79801), Self-half-way management (91611), Patient/Family/Caregive r Education, Body Mechanics Training PLAN FOR NEXT VISIT: continue with internal manual, review of wand use as able. For further details regarding this patient refer to the Physical Therapy electronically documented visit dated 01/24/2025. Provider Attestation I have reviewed the treatment plan for Gisela Turner, [facility]# [id number] for the period of 01/24/25 -- 04/24/25, established on 01/24/2025. Signature certifies the need for therapy services. Normal [facility] CNTHERAPYon 01-24-2025 CNTHERAPY OT/PT/Speech Visit (AKPTB) GISELA TURNER ([id number]) 1970 F Date Time Provider Department 01/24/25 11:30 AM ALKA SHEPPARD Date Time Provider Department Center 01/24/2025 11:30 AM [id number]-CJASTALKA SHEPPARD [facility] Reason for Visit: PT Progress Note [1256] Primary Visit Diagnosis:Muscular incoordination [R27.8] Other Visit Diagnosis:Constipation, unspecified constipation type [K59.00] Allergies As of Date: 01/24/2025 Noted Allergy Reaction AMOXICILLIN 11/25/2005 4 - Hives BACTRIM (SULFAMETHOXAZOLE) 11/13/2011 2 - Rash DIPHENHYDRAMINE 10/07/2018 14 - Other: See Comments GLUTEN FLOUR 10/21/2018 5 - Intolerance Comments: Pt reports migraines from flour MOXIFLOXACIN 06/04/2023 4 - Hives SEPTRA (SULFAMETHOXAZOLE-TRIME THO*11/25/2005 2 - Rash TRILEPTAL (OXCARBAZEPINE) 12/16/2005 ZOMIG (ZOLMITRIPTAN) 12/16/2005 ZYPREXA (OLANZAPINE) 12/16/2005 Date Reviewed: 12/16/2024 Reviewed by: Brittanie Corado, RN - Fully Assessed Prescriptions as of 01/24/2025 - gabapentin in lipoderm topical cream 4% (CPD) Apply to affected area. External use only ? not for vaginal/vulvar use - cyclobenzaprine (FLEXERIL) 5 mg tablet 1 tablet daily at bedtime. Use vaginally at night - oxybutynin XL (DITROPAN XL) 5 mg 24 hr tablet Take 1 tablet by mouth once daily. - mesalamine (CANASA) 1,000 mg suppository 1 Suppository by RECTAL route daily at bedtime. - estradiol (ESTRACE) 2 mg tablet Take 1 tablet by mouth once daily. - estradiol (ESTRACE) 0.01 % (0.1 mg/gram) vaginal cream APPLY A PEA SIZED AMOUNT TO LOWER VAGINA AT BEDTIME TWICE WEEKLY - atorvastatin (LIPITOR) 20 mg tablet - aspirin, enteric coated (ASPIRIN, ENTERIC COATED) 81 mg EC tablet Take by mouth. - traZODone (DESYREL) 50 mg tablet traZODone Trazodone Active 50 MG AT BEDTIME January 03, 2020 10:35pm 01-03-2020 [facility] ([id number]) - QUEtiapine (SEROQUEL) 50 mg tablet Take 1 tablet by mouth daily at bedtime. - desvenlafaxine ER (PRISTIQ) 50 mg 24 hr tablet Take 1 tablet by mouth once daily. - lansoprazole (PREVACID) 30 mg capsule Take 30 mg by mouth once daily. - LAMOTRIGINE (LAMICTAL ORAL) Take by mouth once daily. 200 mg daily - buPROPion SR (WELLBUTRIN SR) 100 mg 12 hr tablet Take 1 tablet by mouth once daily. Facility-Administered Medications as of 01/24/2025 - onabotulinum toxin type A 100 Units injection (BOTOX) Normal [facility] - Microbiology an d Antimicrobial susceptibilityOrdered By: Tierney Valero on 01-08-2025 SARS-CoV-2 (COVID-19) RNA MARCIA+probe Ql (Unsp spec) Not detected [facility] No Panel InformationOrdered By: Tierney Valero on 01-08-2025 Influenza Types A,B Rapid (Clinic) Detected [facility] Urgent Care Visit Reporton 0 01-08-2025 Urgent Care Visit Report [facility] [address], [address] [place] [address] OFFICE VISIT Date of Service: 01/08/25 MR#: [id number] Acct: [id number] Name: YUEGISELA Lesa Rep #: [id number] : 1970 Provider: JUAN Valero Age/Sex: 54/F [place] [facility] Status: Signed Intake Vital Signs 12/22/24 09:50 01/08/25 10:41 Height 5 ft 3 in 5 ft 3 in Weight: 132 lb 6 oz BMI 23.4 BP 124/66 H Blood Pressure Location Lt brachial Position Sitting Respiration 16 Pulse 79 Pulse Source NIBP Temp 98.3 F Temp Source Oral Pulse Oximetry (%) 98 Oxygen Delivery Method room air Intake Visit Reasons: CONCERN FOR SINUS INFECTION Chief Complaint: BELLO, BA, fever, cough, congest, drainage Collar Folder Operator Required: No Is patient in pain?: No Allergies verapamil Allergy (Mild, Verified 01/08/25 11:09) Rash amoxicillin (Amoxicillin) Allergy (Verified 01/08/25 11:09) Hives sulfamethoxazole (From Septra) Allergy (Verified 01/08/25 11:09) Rash trimethoprim (From Septra) Allergy (Verified 01/08/25 11:09) Rash diphenhydramine (From Benadryl) Adverse Reaction (Verified 01/08/25 11:09) Other moxifloxacin (From Avelox) Adverse Reaction (Verified 01/08/25 11:09) NEEDS FOLLOW-UP olanzapine (From Zyprexa) Adverse Reaction (Verified 01/08/25 11:09) Unknown oxcarbazepine (From Trileptal) Adverse Reaction (Verified 01/08/25 11:09) Unknown sumatriptan (From Imitrex) Adverse Reaction (Verified 01/08/25 11:09) Other zolmitriptan (From Zomig) Adverse Reaction (Verified 01/08/25 11:09) Unknown Medications ???Medication ???Instructions ???Recorded ???Confirmed ???Type lamotrigine 200 mg tablet 200 mg PO QHS 04/14/21 01/08/25 Hi story (Lamictal) ondansetron 4 mg disintegrating 4 mg PO Q8H PRN PRN Nausea #10 tab s 10/30/23 01/08/25 Rx tablet aspirin 81 mg tablet,delayed 81 mg PO DAILY #30 tabs 03/02/24 0 01/08/25 Rx release (Adult Aspirin Regimen) atorvastatin 20 mg tablet 20 mg PO DAILY #90 tabs 03/02/24 0 01/08/25 Rx bupropion HCl 100 mg tablet,12 hr 100 mg PO QAM 11/18/24 01/08/25 H istory sustained-release desvenlafaxine succinate 100 mg 100 mg PO QDAY 11/18/24 01/08/25 H istory tablet,extended release 24 hr (Pristiq) estradiol 2 mg tablet 1 mg PO QDAY 11/18/24 01/08/25 His tory ipratropium bromide 21 mcg (0.03 intranasal 11/18/24 01/08/25 Histo ry %) nasal spray mesalamine 1,000 mg rectal 1,000 mg W[place] QHS 11/18/24 01/08/25 History suppository oxybutynin chloride 5 mg 5 mg PO QDAY 11/18/24 01/08/25 His tory tablet,extended release 24 hr quetiapine 50 mg tablet 50 mg PO QHS 11/18/24 01/08/25 His tory trazodone 50 mg tablet 50 mg PO QHS 11/18/24 01/08/25 His tory lansoprazole 30 mg capsule,delayed 30 mg PO DAILY #60 caps 12/03/24 01/08/25 Rx release Is last menstrual period known: No Post menopausal: Yes Patient : No Have you fallen in the past year?: No Nurse's Note: BELLO, BA, fever, cough, congest, drainage x 1 week without resolve. [facility] Medical History Fatty liver Anorexia Vertigo History of diverticulitis Non-smoker Shortness of breath on exertion History of edema History of echocardiogram Cardiology follow-up encounter COVID-19 virus detected (08/29/20) Nonobstructive atherosclerosis of coronary artery NSTEMI, initial episode of care (10/07/21) Elevated troponin level Degenerative disc disease, cervical Cervical radiculopathy Depression GERD (gastroesophageal reflux disease) Epigastric abdominal pain Frequent headaches Anxiety Bipolar disease, chronic Surgical History H/O eye surgery History of nasal septoplasty History of tonsillectomy and adenoidectomy History of hysterectomy History of cholecystectomy History of carpal tunnel release History of left heart catheterization (10/08/21) Family History Mother CVA (cerebral vascular accident) Social History household members: spouse Smoking Status: Never smoker alcohol intake: never substance use type: does not use caffeine: Yes Type: coffee HPI HPI Chief Complaint: BELLO, BA, fever, cough, congest, drainage Details: GISELA TURNER, is a 54 F who presents to the office today for flu like sx -+ for flu A in office testing -sx started last Friday -sx myalgias, headache, cough with phlegm- doesn't spit it out, congestion and drainage -tried so far nasal spray, cough syrup, ibuprofen ROS Const Constitutional: Positive for other (ROS negative x6 except what was placed in HPI) Exam Const General: cooperative and no acute distress (more content not included)... 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 Rate : 83 BPM Atrial Rate : 83 BPM P-R Int : 176 ms QRS Dur : 70 ms QT Int : 376 ms P-R-T Axes : 81 57 79 degrees QTcB Int : 441 ms Normal sinus rhythm Normal ECG Confirmed by GERMAIN SOARES MD ([id number]), film editor supervisor JAYLON JASON ([id number]) on 12/23/2024 6:57:31 AM Referred By: Confirmed By: GERMAIN SOARES MD 12/23/24 0657 Date Germain Soares MD CC: Dr. Carolyn Bower DO; Dr. Sumanth Krause MD Signed [facility] Absolute lymphocyte countOrd ered By: Carolyn Bower on 12-22-2024 Lymphocytes Auto (Unsp spec) [#/Vol] 2.09 10*3/uL 0.83-4.51 [facility] Absolute neutrophil countOrd ered By: Carolynjennifer Bower on 12-22-2024 Neutrophils (Bld) [#/Vol] 2.6 10*3/uL 2.0-7.7 [facility] Automated lymphocyte count a s percentage of total leukocytesOrdered By: Carolyn Bower on 12-22-2024 Lymphocytes/100 WBC Auto (Unsp spec) 37.0 % 19-41 [facility] Basic Metabolic Profile (BMP )on 12-22-2024 BUN/CRE 16.9 RATIO Normal 10-20 [facility] Comment on above: Performed By: #### L 500.2500, L501.5425, L300.8000, L100.0100 #### [facility] [address] [place], [address] CA,Total 9.2 mg/dL Normal 8.5-10.1 [facility] Comment on above: Performed By: #### L 500.2500, L501.5425, L300.8000, L100.0100 #### [facility] [address] [place], [address] Chloride [Moles/Vol] 102 mmol/L Normal 98-107 [facility] Comment on above: Performed By: #### L 500.2500, L501.5425, L300.8000, L100.0100 #### [facility] [address] [place], [address] CO2 [Moles/Vol] 31.0 mmol/L Normal 21.0-32.0 [facility] Comment on above: Performed By: #### L 500.2500, L501.5425, L300.8000, L100.0100 #### [facility] [address] [place], [address] Creatinine [Mass/Vol] 0.95 mg/dL Normal 0.55-1.02 [facility] Comment on above: Result Comment: The validity of the calculated GFR GFRAA in patients over 70 years has not been determined. Clinical correlation is essential. Performed By: #### L 500.2500, L501.5425, L300.8000, L100.0100 #### [facility] [address] [place], [address] ECRCL 56.00 ml/min Normal [facility] Comment on above: Performed By: #### L 500.2500, L501.5425, L300.8000, L100.0100 #### [facility] [address] [place], [address] EST GFR - AA 79 mL/min Normal >60 [facility] Comment on above: Result Comment: Afri can Bahamian GFR Calc Performed By: #### L 500.2500, L501.5425, L300.8000, L100.0100 #### [facility] [address] [place], [address] GAP 6 Normal 5-15 [facility] Comment on above: Performed By: #### L 500.2500, L501.5425, L300.8000, L100.0100 #### [facility] [address] [place], [address] GFR/1.73 sq M.predicted among non-blacks MDRD (S/P/Bld) [Vol rate/Area] 65 mL/min/{1.73_m2} Normal >60 [facility] Comment on above: Result Comment: Non- GFR Calc Performed By: #### L 500.2500, L501.5425, L300.8000, L100.0100 #### [facility] [address] [place], [address] Glucose [Mass/Vol] 116 mg/dL High 74-106 [facility] Comment on above: Result Comment: Fast ing Glucose result from 100 to 125 mg/dL suggests IMPAIRED HOMEOSTASIS per A.D.A. criteria. Performed By: #### L 500.2500, L501.5425, L300.8000, L100.0100 #### [facility] [address] [place], [address] Potassium [Moles/Vol] 3.7 mmol/L Normal 3.5-5.1 [facility] Comment on above: Performed By: #### L 500.2500, L501.5425, L300.8000, L100.0100 #### [facility] [address] [place], [address] Sodium [Moles/Vol] 139 mmol/L Normal 136-145 [facility] Comment on above: Performed By: #### L 500.2500, L501.5425, L300.8000, L100.0100 #### [facility] [address] [place], [address] Urea nitrogen [Mass/Vol] 16 mg/dL Normal 7-18 [facility] Comment on above: Performed By: #### L 500.2500, L501.5425, L300.8000, L100.0100 #### [facility] [address] [place], [address] Basophil percentageOrdered B y: Carolyn Bower on 12-22-2024 Basophils/100 WBC (Bld) 1.2 % High 0-1 [facility] Blood urea nitrogen (BUN)/cr eatinine ratioOrdered By: Carolyn Bower on 12-22-2024 Urea nitrogen/Creatinine [Mass ratio] 16.9 mg/mg 10-20 [facility] CBC W/Diff, Automatedon 0 Absolute Lymph 2.09 X10 3/uL Normal 0.83-4.51 [facility] Comment on above: Performed By: #### L 500.2500, L501.5425, L300.8000, L100.0100 #### [facility] [address] [place], [address] Absolute Neut 2.6 X10 3/uL Normal 2.0-7.7 [facility] Comment on above: Performed By: #### L 500.2500, L501.5425, L300.8000, L100.0100 #### [facility] [address] [place], [address] Basophils/100 WBC (Bld) 1.2 % High 0-1 [facility] Comment on above: Performed By: #### L 500.2500, L501.5425, L300.8000, L100.0100 #### [facility] [address] [place], [address] Eosinophils/100 WBC (Bld) 6.2 % High 0-5 [facility] Comment on above: Performed By: #### L 500.2500, L501.5425, L300.8000, L100.0100 #### [facility] [address] [place], [address] Erythrocyte distribution width (RBC) [Ratio] 12.2 % Normal 11.6-14.6 [facility] Comment on above: Performed By: #### L 500.2500, L501.5425, L300.8000, L100.0100 #### [facility] [address] [place], [address] Hematocrit (Bld) [Volume fraction] 40.2 % Normal 37-47 [facility] Comment on above: Performed By: #### L 500.2500, L501.5425, L300.8000, L100.0100 #### [facility] [address] [place], [address] Hemoglobin (Bld) [Mass/Vol] 13.5 g/dL Normal 12.0-15.0 [facility] Comment on above: Performed By: #### L 500.2500, L501.5425, L300.8000, L100.0100 #### [facility] [address] [place], [address] IG% 0.400 Normal 0.0-0.9 [facility] Comment on above: Result Comment: IG% - Immature Granulocytes (promyelocytes, myelocytes and metamyelocytes) > 1% indicates that a LEFT SHIFT is Present. Performed By: #### L 500.2500, L501.5425, L300.8000, L100.0100 #### [facility] [address] [place], [address] Lymphocytes/100 WBC (Bld) 37.0 % Normal 19-41 [facility] Comment on above: Performed By: #### L 500.2500, L501.5425, L300.8000, L100.0100 #### [facility] [address] [place], [address] MCH (RBC) [Entitic mass] 28.5 pg Normal 27.0-32.0 [facility] Comment on above: Performed By: #### L 500.2500, L501.5425, L300.8000, L100.0100 #### [facility] [address] [place], [address] MCHC (RBC) [Mass/Vol] 33.6 g/dL Normal 32-36 [facility] Comment on above: Performed By: #### L 500.2500, L501.5425, L300.8000, L100.0100 #### [facility] [address] [place], [address] MCV (RBC) [Entitic vol] 85.0 fL Normal 81-99 [facility] Comment on above: Performed By: #### L 500.2500, L501.5425, L300.8000, L100.0100 #### [facility] [address] [place], [address] Monocytes/100 WBC (Bld) 9.9 % Normal 0-10 [facility] Comment on above: Performed By: #### L 500.2500, L501.5425, L300.8000, L100.0100 #### [facility] [address] [place], [address] Neutrophils/100 WBC (Bld) 45.3 % Low 47-70 [facility] Comment on above: Performed By: #### L 500.2500, L501.5425, L300.8000, L100.0100 #### [facility] [address] [place], [address] Nucleated RBC (Bld) [#/Vol] 0 10*3/uL Normal 0-5 [facility] Comment on above: Performed By: #### L 500.2500, L501.5425, L300.8000, L100.0100 #### [facility] [address] [place], [address] Platelet mean volume (Bld) [Entitic vol] 8.8 fL Normal 6.2-12.0 [facility] Comment on above: Performed By: #### L 500.2500, L501.5425, L300.8000, L100.0100 #### [facility] [address] [place], [address] Platelets (Bld) [#/Vol] 252 10*3/uL Normal 150-450 [facility] Comment on above: Performed By: #### L 500.2500, L501.5425, L300.8000, L100.0100 #### [facility] [address] [place], [address] RBC (Bld) [#/Vol] 4.73 10*6/uL Normal 4.2-5.4 [facility] [facility] Comment on above: Performed By: #### L 500.2500, L501.5425, L300.8000, L100.0100 #### [facility] [address] [place], [address] RDW SD 37.6 fl Normal 35.1-43.9 [facility] Comment on above: Performed By: #### L 500.2500, L501.5425, L300.8000, L100.0100 #### [facility] [address] [place], [address] WBC (Bld) [#/Vol] 5.7 10*3/uL Normal 4.4-11.0 [facility] Comment on above: Performed By: #### L 500.2500, L501.5425, L300.8000, L100.0100 #### [facility] [address] [place], [address] Carbon dioxide measurementOr dered By: Carolyn Bower on 12-22-2024 CO2 [Moles/Vol] 31.0 mmol/L 21.0-32.0 [facility] Chest PA and Lateralon 12-22 Chest PA and Lateral [facility] Services [address] [place] [address] Chest PA and Lateral MR#: [id number] Acct: [id number] Name: GISELA TURNER Rep #: [id number] : 1970 F 54 From: Alejandra Malave MD PCP: Dr. Sumanth Krause MD Status: REG ER Study: Chest PA and Lateral Date of Exam: 12/22/24 Exam# [id number] Ordering Dr: Carolyn Bower DO EXAM: XR Chest, 2 Views CLINICAL INDICATION: TECHNIQUE: Frontal and lateral views of the chest. COMPARISON: No relevant prior studies available. FINDINGS: LUNGS AND PLEURAL SPACES: Unremarkable. No consolidation. No pneumothorax. HEART: Unremarkable. No cardiomegaly. MEDIASTINUM: Unremarkable. Normal mediastinal contour. BONES/JOINTS: Unremarkable. No acute fracture. RAD/Chest PA and Lateral IMPRESSION: No acute cardiopulmonary process. Reading Location: [facility] CC: Dr. Carolyn Bower DO; Dr. Sumanth Krause MD Director Global Development: Signed Normal [facility] Chloride measurementOrdered By: Carolyn Bower on 12-22-2024 Chloride [Moles/Vol] 102 mmol/L 98-107 [facility] D-Dimer Quantitative (DVT/PE )on 12-22-2024 D-DIMER QUANT 0.27 FEU/ug/m Normal 0.27-0.49 [facility] Comment on above: Result Comment: NORM AL D-Dimer level (<0.50) indicates no DVT or PE. Performed By: #### L 500.2500, L501.5425, L300.8000, L100.0100 #### [facility] [address] [place], [address] D-dimer measurement for deep venous thrombosisOrdered By: Carolyn Bower on 12-22-2024 D-Dimer Quantitative (PE/DVT) 0.27 FEU/ug/m 0.27-0.49 [facility] Comment on above: NORMAL D-Dimer level (<0.50) indicates no DVT or PE. Emergency Department Summary on 12-22-2024 Emergency Department Summary [facility] Medical Records Department [address] [place] [address] Emergency Department Summary 12/22/24 MR#: [id number] Acct: [id number] Name: GISELA TURNER Rep #: [id number] : 1970 54 From: Carolyn Bower DO PCP: Dr. Sumanth Krause MD Status:REG ER Location: ED HPI History of Present Illness Chief Complaint: Shortness of Breath Informant: patient Narrative Narrative: Patient is a 54-year-old female with history nonobstructive atherosclerosis of coronary artery, nonalcoholic fatty liver disease, anxiety and bipolar disorder presenting with chest discomfort and tightness. She states it started last night. She texted her daughter about it who is a nurse that it might be anxiety. She states she woke up and it was still there. States last night deep breathing was helping. This morning though she feels a little short of breath. This morning with walking she felt more short of breath. She called her computer customer support specialist office who said they will get back to her within 24 hours. Then called her primary care doctor who said go to the emergency room. Patient denies any associated leg swelling, history of DVT or PE. She denies any recent URI symptoms or fever. She denies any nausea, vomiting or diarrhea. Denies any sweating, abdominal pain or urinary symptoms. Did not have her morning aspirin. Notes her blood pressure was high at home (167/112). States that she has had a cath in the past that showed a 50% occlusion and that always in the back of her mind. No other complaints or concerns reported at this time. [facility] Medical History Fatty liver Anorexia Vertigo History of diverticulitis Non-smoker Shortness of breath on exertion History of edema History of echocardiogram Cardiology follow-up encounter COVID-19 virus detected (08/29/20) Nonobstructive atherosclerosis of coronary artery NSTEMI, initial episode of care (10/07/21) Elevated troponin level Degenerative disc disease, cervical Cervical radiculopathy Depression GERD (gastroesophageal reflux disease) Epigastric abdominal pain Frequent headaches Anxiety Bipolar disease, chronic Home Medications ???Medication ???Instructions ???Recorded ???Last Taken ???Type lamotrigine 200 mg tablet 200 mg PO QHS 04/14/21 10/29/21 Hi story (Lamictal) ondansetron 4 mg disintegrating 4 mg PO Q8H PRN PRN Nausea #10 tab s 10/30/23 Unknown Rx tablet aspirin 81 mg tablet,delayed 81 mg PO DAILY #30 tabs 03/02/24 U nknown Rx release (Adult Aspirin Regimen) atorvastatin 20 mg tablet 20 mg PO DAILY #90 tabs 03/02/24 U nknown Rx bupropion HCl 100 mg tablet,12 hr 100 mg PO QAM 11/18/24 Unknown Hi story sustained-release desvenlafaxine succinate 100 mg 100 mg PO QDAY 11/18/24 Unknown Hi story tablet,extended release 24 hr (Pristiq) estradiol 2 mg tablet 1 mg PO QDAY 11/18/24 Unknown Hist ory ipratropium bromide 21 mcg (0.03 intranasal 11/18/24 Unknown Histor y %) nasal spray mesalamine 1,000 mg rectal 1,000 mg [place] QHS 11/18/24 Unknown H istory suppository neomycin 3.5 mg/g-polymyxin B ophthalmic (eye) 11/18/24 Unknown History 10,000 unit/g-dexameth 0.1 % eye oint oxybutynin chloride 5 mg 5 mg PO QDAY 11/18/24 Unknown Hist ory tablet,extended release 24 hr quetiapine 50 mg tablet 50 mg PO QHS 11/18/24 Unknown Hist ory trazodone 50 mg tablet 50 mg PO QHS 11/18/24 Unknown Hist ory lansoprazole 30 mg capsule,delayed 30 mg PO DAILY #60 caps 12/03/24 Unknown Rx release Allergy/AdvReac Type Severity Reaction Status Date / Time verapamil Allergy Mild Rash Verified 12/22/24 09:50 amoxicillin (Amoxicillin) Allergy Hives Verified 12/22/24 09:50 sulfamethoxazole (From Allergy Rash Verified 12/22/24 09:50 Septra) trimethoprim (From Septra) Allergy Rash Verified 12/22/24 09:50 diphenhydramine (From AdvReac Other Verified 12/22/24 09:50 Benadryl) moxifloxacin (From Avelox) AdvReac NEEDS Verified 12/22/24 09:50 FOLLOW-UP olanzapine (From Zyprexa) AdvReac Unknown Verified 12/22/24 09:50 oxcarbazepine (From AdvReac Unknown Verified 12/22/24 09:50 Trileptal) sumatriptan (From Imitrex) AdvReac Other Verified 12/22/24 09:50 zolmitriptan (From Zomig) AdvReac Unknown Verified 12/22/24 09:50 Family History Mother CVA (cerebral vascular accident) Surgical History H/O eye surgery History of nasal septoplasty History of tonsillectomy and adenoidectomy History of hysterectomy History of cholecystectomy History of carpal tunnel release History of left heart catheterization (10/08/21) Social History ivania (more content not included)... Normal [facility] Eosinophil percentageOrdered By: Carolyn Bower on 12-22-2024 Eosinophils/100 WBC (Bld) 6.2 % High 0-5 [facility] Erythrocyte distribution wid th (RBC) [Ratio]Ordered By: Carolyn Bower on 12-22-2024 Erythrocyte distribution width (RBC) [Entitic vol] 37.6 fL 35.1-43.9 [facility] Erythrocyte distribution wid th ratioOrdered By: Carolyn Bower on 12-22-2024 Erythrocyte distribution width (RBC) [Ratio] 12.2 % 11.6-14.6 [facility] Erythrocyte distribution wid th standard deviationOrdered By: Carolyn Bower on 12-22-2024 Erythrocyte distribution width (RBC) [Ratio] 37.6 fl 35.1-43.9 [facility] Estimated glomerular filtrat ion rate (GFR) AmericanOrdered By: Carolyn Bower on 12-22-2024 Estimated GFR (MDRD) Amer 79 mL/min >60 [facility] Comment on above: GFR Calc Estimation of creatinine rosalba aranceOrdered By: Carolyn Bower on 12-22-2024 Estimated Creatinine Clearance Calc 56.00 ml/min [facility] Glomerular filtration rate ( GFR) estimationOrdered By: Carolyn Bower on 12-22-2024 Estimated GFR (MDRD) Non-Af Amer 65 mL/min >60 [facility] Comment on above: Non- GFR Calc GFR/1.73 sq M.predicted among non-blacks MDRD (S/P/Bld) [Vol rate/Area] 65 mL/min/{1.73_m2} >60 [facility] Comment on above: Non- GFR Calc Glucose measurementOrdered B y: Carolyn Bower on 12-22-2024 Glucose [Mass/Vol] 116 mg/dL High 74-106 [facility] Comment on above: Fasting Glucose resu lt from 100 to 125 mg/dL suggests IMPAIRED HOMEOSTASIS per A.D.A. criteria. Hematocrit Auto (Bld) [Volum e fraction]Ordered By: Carolyn Bower on 12-22-2024 Hematocrit (Bld) [Volume fraction] 40.2 % 37-47 [facility] Hemoglobin measurementOrdere d By: Carolyn Bower on 12-22-2024 Hemoglobin (Bld) [Mass/Vol] 13.5 g/dL 12.0-15.0 [facility] Immature granulocytes/100 WB C Auto (Bld)Ordered By: Carolyn Bower on 12-22-2024 Immature granulocytes/100 WBC (Bld) 0.400 % 0.0-0.9 [facility] Comment on above: IG% - Immature Granu locytes (promyelocytes, myelocytes and metamyelocytes) > 1% indicates that a LEFT SHIFT is Present. L501.4020on 12-22-2024 TROPONIN-I HS 68 pg/mL High 3.0-54.0 [facility] Comment on above: Order Comment: 'TROP ' Serial specimen #1, #2 or #3: 3 Result Comment: Sawyer diggs Note: New Test Units and Gender Specific Reference Ranges. For more information see Policy Stat Procedure Sparks High Sensitivity Troponin (TNIH) and attachments. Performed By: #### L 501.4020 ####[facility] [address] [place], [address] TROPONIN-I HS 70 pg/mL High 3.0-54.0 [facility] Comment on above: Result Comment: Plebobby se Note: New Test Units and Gender Specific Reference Ranges. For more information see Policy Stat Procedure Sparks High Sensitivity Troponin (TNIH) and attachments. Performed By: #### L 501.4020 #### [facility] [address] [place], [address] L501.5425on 12-22-2024 TROPONIN-I HS 76 pg/mL High 3.0-54.0 [facility] Comment on above: Order Comment: 1 Y Result Comment: Plebobby se Note: New Test Units and Gender Specific Reference Ranges. For more information see Policy Stat Procedure Sparks High Sensitivity Troponin (TNIH) and attachments. Performed By: #### L 500.2500, L501.5425, L300.8000, L100.0100 #### [facility] [address] [place], [address] Lymphocytes Auto (Unsp spec) [#/Vol]Ordered By: Carolyn Bower on 12-22-2024 Lymphocytes (Bld) [#/Vol] 2.09 10*3/uL 0.83-4.51 [facility] Lymphocytes/100 WBC Auto (Un sp spec)Ordered By: Carolyn Bower on 12-22-2024 Lymphocytes/100 WBC (Bld) 37.0 % 19-41 [facility] MCV (mean corpuscular volume ) determinationOrdered By: Carolyn Bower on 12-22-2024 MCV (RBC) [Entitic vol] 85.0 fL 81-99 [facility] Mean corpuscular hemoglobin (MCH) determinationOrdered By: Carolyn Bower on 12-22-2024 MCH (RBC) [Entitic mass] 28.5 pg 27.0-32.0 [facility] Mean corpuscular hemoglobin concentration (MCHC) determinationOrdered By: Carolyn Bower on 12-22-2024 MCHC (RBC) [Mass/Vol] 33.6 g/dL 32-36 [facility] Mean platelet volume determi nationOrdered By: Carolyn Bower on 12-22-2024 Platelet mean volume (Bld) [Entitic vol] 8.8 fL 6.2-12.0 [facility] Monocyte percentageOrdered B y: Carolyn Bower on 12-22-2024 Monocytes/100 WBC (Bld) 9.9 % 0-10 [facility] Neutrophil percentageOrdered By: Carolyn Bower on 12-22-2024 Neutrophils/100 WBC (Bld) 45.3 % Low 47-70 [facility] Nucleated red blood cell per centageOrdered By: Carolyn Bower on 12-22-2024 Nucleated RBC/100 WBC (Bld) [Ratio] 0 % 0-5 [facility] Platelet countOrdered By: Justin Bower on 12-22-2024 Platelets (Bld) [#/Vol] 252 10*3/uL 150-450 [facility] Potassium measurementOrdered By: Carolyn Bower on 12-22-2024 Potassium [Moles/Vol] 3.7 mmol/L 3.5-5.1 [facility] RBC Auto (Bld) [#/Vol]Ordere d By: Carolyn Bower on 12-22-2024 RBC (Bld) [#/Vol] 4.73 10*6/uL 4.2-5.4 [facility] Serum anion gap measurementO rdered By: Carolyn Bower on 12-22-2024 Anion gap [Moles/Vol] 6 mmol/L 5-15 [facility] Serum or plasma calcium cassidy urement (mass/volume)Ordered By: Carolyn Bower on 12-22-2024 Calcium [Mass/Vol] 9.2 mg/dL 8.5-10.1 [facility] Serum or plasma creatinine m easurement (mass/volume)Ordered By: Carolyn Bower on 12-22-2024 Creatinine [Mass/Vol] 0.95 mg/dL 0.55-1.02 [facility] Comment on above: The validity of the calculated GFR & GFRAA in patients over 70 years has not been determined. Clinical correlation is essential. Serum or plasma urea nitroge n measurement (mass/volume)Ordered By: Carolyn Bower on 12-22-2024 Urea nitrogen [Mass/Vol] 16 mg/dL 7-18 [facility] Sodium levelOrdered By: Preston Bower on 12-22-2024 Sodium [Moles/Vol] 139 mmol/L 136-145 [facility] Troponin IOrdered By: Carolyn Bower on 12-22-2024 Troponin I 68 pg/mL High 3.0-54.0 [facility] Comment on above: Please Note: New Iva t Units and Gender Specific Reference Ranges. For more information see Policy Stat Procedure Sparks High Sensitivity Troponin (TNIH) and attachments. Troponin I High Sensitivity 68 pg/mL High 3.0-54.0 [facility] Comment on above: Please Note: New Iva t Units and Gender Specific Reference Ranges. For more information see Policy Stat Procedure [place] High Sensitivity Troponin (TNIH) and attachments. White blood cell (WBC) count Ordered By: Carolyn Bower on 12-22-2024 WBC (Bld) [#/Vol] 5.7 10*3/uL 4.4-11.0 [facility] CNTHERAPYon 12-20-2024 CNTHERAPY OT/PT/Speech Visit (AKPTB) GISELA TURNER ([id number]) 1970 F Date Time Provider Department 12/20/24 11:30 AM ALKA SHEPPARD Date Time Provider Department Center 12/20/2024 11:30 AM [id number] SHEPPARD [facility] Reason for Visit: PT Progress Note [1786] Primary Visit Diagnosis:Muscular incoordination [R27.8] Other Visit Diagnosis:Constipation, unspecified constipation type [K59.00] Allergies As of Date: 12/20/2024 Noted Allergy Reaction AMOXICILLIN 11/25/2005 4 - Hives BACTRIM (SULFAMETHOXAZOLE) 11/13/2011 2 - Rash DIPHENHYDRAMINE 10/07/2018 14 - Other: See Comments GLUTEN FLOUR 10/21/2018 5 - Intolerance Comments: Pt reports migraines from flour MOXIFLOXACIN 06/04/2023 4 - Hives SEPTRA (SULFAMETHOXAZOLE-TRIME THO*11/25/2005 2 - Rash TRILEPTAL (OXCARBAZEPINE) 12/16/2005 ZOMIG (ZOLMITRIPTAN) 12/16/2005 ZYPREXA (OLANZAPINE) 12/16/2005 Date Reviewed: 12/16/2024 Reviewed by: Brittanie Corado, RN - Fully Assessed Prescriptions as of 12/20/2024 - gabapentin in lipoderm topical cream 4% (CPD) Apply to affected area. External use only ? not for vaginal/vulvar use - cyclobenzaprine (FLEXERIL) 5 mg tablet 1 tablet daily at bedtime. Use vaginally at night - oxybutynin XL (DITROPAN XL) 5 mg 24 hr tablet Take 1 tablet by mouth once daily. - mesalamine (CANASA) 1,000 mg suppository 1 Suppository by RECTAL route daily at bedtime. - estradiol (ESTRACE) 2 mg tablet Take 1 tablet by mouth once daily. - estradiol (ESTRACE) 0.01 % (0.1 mg/gram) vaginal cream APPLY A PEA SIZED AMOUNT TO LOWER VAGINA AT BEDTIME TWICE WEEKLY - atorvastatin (LIPITOR) 20 mg tablet - aspirin, enteric coated (ASPIRIN, ENTERIC COATED) 81 mg EC tablet Take by mouth. - traZODone (DESYREL) 50 mg tablet traZODone Trazodone Active 50 MG AT BEDTIME January 03, 2020 10:35pm 01-03-2020 [facility] ([id number]) - QUEtiapine (SEROQUEL) 50 mg tablet Take 1 tablet by mouth daily at bedtime. - desvenlafaxine ER (PRISTIQ) 50 mg 24 hr tablet Take 1 tablet by mouth once daily. - lansoprazole (PREVACID) 30 mg capsule Take 30 mg by mouth once daily. - LAMOTRIGINE (LAMICTAL ORAL) Take by mouth once daily. 200 mg daily - buPROPion SR (WELLBUTRIN SR) 100 mg 12 hr tablet Take 1 tablet by mouth once daily. Facility-Administered Medications as of 12/20/2024 - onabotulinum toxin type A 100 Units injection (BOTOX) [employer] Developer: Therapy (PT/OT/Speech/Resp) ID: [id number] 12/20/2024 12:08 PM Author: ALKA SHEPPARD Signed by ALKA SHEPPARD PT on 12/20/2024 at 12:08 PM Document text: Program_ID:[id number] Access Code: [email or web address] URL: [email or web address] Date: 12-20-2024 Prepared By: Alka Sheppard Program Notes Exercises - Supine Diaphragmatic Breathing with Pelvic Floor Lengthening - 2 x daily - 7 x weekly - sets - 10 reps - Diaphragmatic Breathing in Child's Pose with Pelvic Floor Relaxation - 1-2 x daily - 7 x weekly - 2 sets - reps - Supine Lower Trunk Rotation - 1-2 x daily - 7 x weekly - sets - 10 reps - Hip Flexor Stretch on Step - 1-2 x daily - 7 x weekly - 3 sets - reps - Static Prone on Elbows - 1-2 x daily - 7 x weekly - 3 sets - reps - Cat Cow to Child's Pose - 1 x daily - 7 x weekly - 3 sets - 10 reps - Seated Hamstring Stretch - 2 x daily - 7 x weekly - 3 sets - reps - Right Standing Lateral Shift Correction at Wall - Hold - 2 x daily - 7 x weekly - sets - 10 reps Patient Education - Get To Know Your Pelvic Floor- Female - cc Pelvic Floor - Constipation Massage - cc Pelvic Floor - Bladder Health AND Emptying Techniques - cc Pelvic Floor - Bowel Movement Education - cc Pelvic Floor - Winston Stool Chart - cc Pelvic Floor - Bowel Diary - cc Pelvic Floor Female Internal Pelvic Floor Self Massage - cc Pelvic Floor - Lubricants Normal [facility] THERAPY NTon 12-20-2024 THERAPY NT HNO ID: [id number] Author: ALKA SHEPPARD PT Service: ? Author Type: Physical Therapist Type: Therapy (PT/OT/Speech/Resp) Filed: 12/20/2024 12:08 Note Text: Program_ID:[id number] Access Code: [email or web address] URL: [email or web address] Date: 12-20-2024 Prepared By: Alka Sheppard Program Notes Exercises - Supine Diaphragmatic Breathing with Pelvic Floor Lengthening - 2 x daily - 7 x weekly - sets - 10 reps - Diaphragmatic Breathing in Child's Pose with Pelvic Floor Relaxation - 1-2 x daily - 7 x weekly - 2 sets - reps - Supine Lower Trunk Rotation - 1-2 x daily - 7 x weekly - sets - 10 reps - Hip Flexor Stretch on Step - 1-2 x daily - 7 x weekly - 3 sets - reps - Static Prone on Elbows - 1-2 x daily - 7 x weekly - 3 sets - reps - Cat Cow to Child's Pose - 1 x daily - 7 x weekly - 3 sets - 10 reps - Seated Hamstring Stretch - 2 x daily - 7 x weekly - 3 sets - reps - Right Standing Lateral Shift Correction at Wall - Hold - 2 x daily - 7 x weekly - sets - 10 reps Patient Education - Get To Know Your Pelvic Floor- Female - cc Pelvic Floor - Constipation Massage - cc Pelvic Floor - Bladder Health AND Emptying Techniques - cc Pelvic Floor - Bowel Movement Education - cc Pelvic Floor - Winston Stool Chart - cc Pelvic Floor - Bowel Diary - cc Pelvic Floor Female Internal Pelvic Floor Self Massage - cc Pelvic Floor - Lubricants Normal [facility] CNPNon 12-17-2024 CNPN Telephone ([facility]) GISELA TURNER ([id number]) 1970 F Date Time Provider Department 12/17/24 ROSIE STERLING During your visit today, we recorded the following information about you: Sue Ventura 12/17/2024 9:52 AM Signed === PHARMACY TEAM ==== ADDITIONAL INFORMATION NEEDED/REQUESTED Case Submitted: No Request Type: Provider Date of Service: TBS Additional Information Needed: In order to initiate prior authorization we need to have signed office visit of 12/16/2024. And we need diagnosis code M62.838 which align with Dx code J0585 as per payor policy. The code which is mentioned in OV note 12/16/2024 M62.89 is not aligned with CPT code as per payor policy. Payor policy Sue Ventura 12/20/2024 7:04 AM Signed === PHARMACY TEAM ==== ADDITIONAL INFORMATION NEEDED/REQUESTED Case Submitted: No Request Type: Provider Date of Service: TBS Additional Information Needed: In order to initiate prior authorization we need to have signed office visit of 12/16/2024. And we need diagnosis code M62.838 which align with Dx code J0585 as per payor policy. The code which is mentioned in OV note 12/16/2024 M62.89 is not aligned with CPT code as per payor policy. Payor policy Sue Ventura 12/27/2024 6:35 AM Signed === PHARMACY TEAM ==== ADDITIONAL INFORMATION NEEDED/REQUESTED Case Submitted: No Request Type: Provider Date of Service: TBS Additional Information Needed: In order to initiate prior authorization we need diagnosis code M62.838 which align with Dx code J0585 as per payor policy. The code which is mentioned in OV note 12/16/2024 M62.89 is not aligned with CPT code as per payor policy. Sruthi Portillo RN 12/27/2024 3:20 PM Signed Please submit letter with additional info written 12/27/2024 ([place]) Sruthi Portillo RN Allergies As of Date: 12/17/2024 Noted Allergy Reaction AMOXICILLIN 11/25/2005 4 - Hives BACTRIM (SULFAMETHOXAZOLE) 11/13/2011 2 - Rash DIPHENHYDRAMINE 10/07/2018 14 - Other: See Comments GLUTEN FLOUR 10/21/2018 5 - Intolerance Comments: Pt reports migraines from flour MOXIFLOXACIN 06/04/2023 4 - Hives SEPTRA (SULFAMETHOXAZOLE-TRIME THO*11/25/2005 2 - Rash TRILEPTAL (OXCARBAZEPINE) 12/16/2005 ZOMIG (ZOLMITRIPTAN) 12/16/2005 ZYPREXA (OLANZAPINE) 12/16/2005 Date Reviewed: 12/16/2024 Reviewed by: Brittanie Corado RN - Fully Assessed Reason for Visit: Insurance Authorization [1693] Cmt: Prior auth delay Prescriptions as of 12/27/2024 - gabapentin in lipoderm topical cream 4% (CPD) Apply to affected area. External use only ? not for vaginal/vulvar use - cyclobenzaprine (FLEXERIL) 5 mg tablet 1 tablet daily at bedtime. Use vaginally at night - oxybutynin XL (DITROPAN XL) 5 mg 24 hr tablet Take 1 tablet by mouth once daily. - mesalamine (CANASA) 1,000 mg suppository 1 Suppository by RECTAL route daily at bedtime. - estradiol (ESTRACE) 2 mg tablet Take 1 tablet by mouth once daily. - estradiol (ESTRACE) 0.01 % (0.1 mg/gram) vaginal cream APPLY A PEA SIZED AMOUNT TO LOWER VAGINA AT BEDTIME TWICE WEEKLY - atorvastatin (LIPITOR) 20 mg tablet - aspirin, enteric coated (ASPIRIN, ENTERIC COATED) 81 mg EC tablet Take by mouth. - traZODone (DESYREL) 50 mg tablet traZODone Trazodone Active 50 MG AT BEDTIME January 03, 2020 10:35pm 01-03-2020 [facility] ([id number]) - QUEtiapine (SEROQUEL) 50 mg tablet Take 1 tablet by mouth daily at bedtime. - desvenlafaxine ER (PRISTIQ) 50 mg 24 hr tablet Take 1 tablet by mouth once daily. - lansoprazole (PREVACID) 30 mg capsule Take 30 mg by mouth once daily. - LAMOTRIGINE (LAMICTAL ORAL) Take by mouth once daily. 200 mg daily - buPROPion SR (WELLBUTRIN SR) 100 mg 12 hr tablet Take 1 tablet by mouth once daily. Facility-Administered Medications as of 12/27/2024 - onabotulinum toxin type A 100 Units injection (BOTOX) Problem List As Of Date 12/17/2024 Noted Resolved Calculus of GB w/ other cystitis [K80.10] 12/16/2005 02/10/2012 Abdominal pain, unspecified site [R10.9] 12/16/2005 10/29/2013 GASTRITIS CHRONIC ATROPHIC(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 circumferential pattern from the anus to the rectum. The inflammation was graded as Saxena Score 1 (mild, with erythema, decreased vascular pattern, mild friability), and when compared to previous examinations, the findings are improved. Biopsies were taken with a cold forceps for histology. Estimated blood loss was minimal. Impression: - The sigmoid colon and descending colon are normal. Biopsied. - Proctitis. Inflammation was found from the anus to the rectum. This was graded as Saxena Score 1 (mild disease), improved compared to previous examinations. Biopsied. Estimated Blood Loss: Estimated blood loss was minimal. Recommendation: - Discharge patient to home. - Resume previous diet. - Continue present medications. - Await pathology results. - Return to my office as previously scheduled. Procedure Code(s): --- Professional --- 04242, Sigmoidoscopy, flexible; with biopsy, single or multiple CPT copyright 2020 [employer]. All rights reserved. The codes documented in this report are preliminary and upon kindergarten instructional assistant review may be revised to meet current compliance requirements. Attending Participation: I personally performed the entire procedure. S (more content not included)... PROVATION [facility] Radiology Study observation (narrative) [facility] HISTORY PHYSICALon HISTORY PHYSICAL HNO ID: [id number] Author: ESTRELLITA FERREIRA MD Service: Gastroenterology Author Type: Physician Type: H&P Filed: 10/19/2024 16:13 Note Text: PROCEDURAL SEDATION HISTORY AND PHYSICAL EXAM SERVICE DATE: 10/19/2024 SERVICE TIME: 1613 Subjective HPI: This is a 54 year old female who presents with Proctitis PAST ANESTHESIA HISTORY:No history of adverse event PAST MEDICAL HISTORY Diagnosis Date Abdominal pain, [...] BREAST BIOPSY Right 08/03/2018 TONSILLECTOMY PRIMARY/SECONDARY Tonsillectomy Prior to Admission medications as of 10/19/24 3177 Medication Sig Last Dose Taking oxybutynin XL (DITROPAN XL) 5 mg 24 hr tablet Take 1 tablet by mouth once daily. mesalamine (CANASA) 1,000 mg suppository 1 Suppository by RECTAL route daily at bedtime. estradiol (ESTRACE) 2 mg tablet Take 1 tablet by mouth once daily. estradiol (ESTRACE) 0.01 % (0.1 mg/gram) vaginal cream APPLY A PEA SIZED AMOUNT TO LOWER VAGINA AT BEDTIME TWICE WEEKLY atorvastatin (LIPITOR) 20 mg tablet aspirin, enteric coated (ASPIRIN, ENTERIC COATED) 81 mg EC tablet Take by mouth. 10/16/2024 traZODone (DESYREL) 50 mg tablet traZODone Trazodone Active 50 MG AT BEDTIME January 03, 2020 10:35pm 01-03-2020 [facility] ([id number]) QUEtiapine (SEROQUEL) 50 mg tablet Take 1 tablet by mouth daily at bedtime. desvenlafaxine ER (PRISTIQ) 50 mg 24 hr tablet Take 1 tablet by mouth once daily. Patient taking differently: Take 100 mg by mouth once daily. lansoprazole (PREVACID) 30 mg capsule Take 30 mg by mouth once daily. LAMOTRIGINE (LAMICTAL ORAL) Take by mouth once daily. 200 mg daily buPROPion SR (WELLBUTRIN SR) 100 mg 12 hr tablet Take 1 tablet by mouth once daily. ALLERGIES Allergen Reactions Amoxicillin Hives Bactrim [Sulfametho* Rash Diphenhydramine Other: See Comments Gluten Flour Intolerance Pt reports migraines from flour Moxifloxacin Hives Septra [Sulfamethox* Rash Trileptal [Oxcarbaz* Zomig [Zolmitriptan] Zyprexa [Olanzapine] CARDIOVASCULAR:No chest pain, leg swelling and palpitations PULMONARY:No cough,wheezing and shortness of breath Objective PHYSICAL EXAM:The remainder of the physical exam is noncontributory AIRWAY: Airway Visualization of Uvula: Yes Mouth opening greater than 2 fingerbreadths: Yes Neck Full Range of Motion: Yes LUNGS: Good diaphragmatic excursion CARDIAC: Regular rhythm,Regular rate Assessment/Plan ASA Class: II Patient OK for Sedation: Yes Sedation Goal: Moderate Provisional Diagnosis/Treatment Plan: Proctitis/ Flex Sig Sedation Goal: Moderate SIGNATURE: Estrellita Ferreira MD PATIENT NAME: Gisela Turner DATE: October 19, 2024 TIME: 4:13 PM Created 2023 Normal [facility] NURSING PROGon 10-19-2024 NURSING PROG HNO ID: [id number] Author: SUMEET PATEL RN Service: ? Author Type: Registered Nurse Type: Nursing Progress Note Filed: 10/19/2024 16:41 Note Text: AMBULATORY PATIENT EDUCATION NOTE TOPIC: GI PROCEDURES: Flex Sigmoidoscopy READINESS TO LEARN INSTRUCTION PROVIDED TO: Patient and family member COGNITIVE ABILITY: Alert and oriented PTED MOTIVATION TO LEARN: Interested FAMILY SUPPORT: High - Very involved in pt care IPATIENT LEARNS BEST BY: Individual Instruction Written Instruction - Hand-outs Verbal Instruction FACTORS AFFECTING LEARNING: None PHYSICAL LIMITATIONS AFFECTING LEARNING: None LEARNING RESPONSE METHOD OF INSTRUCTION: Individual instruction PATIENT / FAMILY RESPONSE: Verbalizes understanding of: WORSENING CONDITION-Signs and symptoms of a worsening condition that warrant a call to the physician FOLLOW-UP PLAN: Complete - No need for follow-up Patient instructed to call with any further issues SUPPLEMENTAL MATERIAL: Procedure Discharge Instructions REFERRAL (RECOMMENDATION): None Electronically Signed By: Sumeet Patel RN [facility] NURSING PROG HNO ID: [id number] Author: DELORES MARTINES LPN Service: ? Author Type: LICENSED NURSE Type: Nursing Progress Note Filed: 10/19/2024 15:53 Note Text: PRE OP LEARNING ASSESSMENT PROCEDURE/SURGERY: GI PROCEDURES: Flex Sigmoidoscopy READINESS TO LEARN COGNITIVE ABILITY: Alert and oriented MOTIVATION TO LEARN: Interested FAMILY SUPPORT: Unable to assess - Family not present PATIENT LEARNS BEST BY: Verbal Instruction FACTORS AFFECTING LEARNING: None PHYSICAL LIMITATIONS AFFECTING LEARNING: None Electronically Signed By: Delores Martines LPN In Department: GASTROENTEROLOGY Normal [facility] SURGICAL PATHOLOGYon CASE REPORT [facility] Comment on above: Order Comment: Speci men Type: SWAB Ordering Facility: [facility] Address: [address] [place] [address] Result Comment: Surg [facility] Pathology Report Case: [id number] Authorizing Provider: Estrellita Ferreira MD Collected: 10/19/2024 04:29 PM Ordering Location: Gastroenterology Received: 10/19/2024 08:34 PM Pathologist: Selena Rodriguez MD Specimens: A) - Colon, Sigmoid, Biopsy, r/o colitis B) - Rectum, Biopsy, r/o colitis Performed By: #### C VTV, BVAMP #### [facility] CLIA [id number] [address] [place] [address] [place] [address] [place] DIAGNOSIS COMMENT This case was review ed with Dr. Shipman, who concurs. [facility] Comment on above: Order Comment: Speci men Type: SWAB Ordering Facility: [facility] Address: [address] [place] [address] Performed By: #### C VTV, BVAMP #### [facility] CLIA [id number] [address] [place] [address] [place] FINAL DIAGNOSIS Normal [facility] Comment on above: Order Comment: Speci men Type: SWAB Ordering Facility: [facility] Address: [address] [place] [address] Result Comment: oBbby. C olon, sigmoid, 20 cm, biopsy: - Colonic mucosa with mild reactive/hyperplastic epithelial changes - No evidence of active or microscopic colitis. B. Rectum, biopsy: - Colonic mucosa with patchy mucosal hemorrhage, mild lamina propria edema, and patchy denuded surface epithelium. - No evidence of active or microscopic colitis. Performed By: #### C VTV, BVAMP #### [facility] CLIA [id number] [address] [place] [address] [place] FINAL PERFORMING LAB Normal [facility] Comment on above: Order Comment: Speci men Type: SWAB Ordering Facility: [facility] Address: [address] [place] [address] Result Comment: Diag nostic interpretation performed at [facility], [address] [place] [address] CLIA# [id number] Drop Wire Aliner: Khalif De La Paz M.D. Performed By: #### C VTV, BVAMP #### [facility] CLIA [id number] [address] [place] [address] [place] GROSS DESCRIPTION [facility] Comment on above: Order Comment: Speci men Type: SWAB Ordering Facility: [facility] Address: [address] [place] [address] Result Comment: A. C olon, Sigmoid, Biopsy Received in formalin are multiple pieces of silveira, soft tissue aggregating to 0.8 x 0.3 x 0.1 cm. Totally submitted in one cassette. B. Rectum, Biopsy Received in formalin are multiple pieces of silveira to silveira-pink, soft tissue aggregating to 2.0 x 0.2 x 0.1 cm. Totally submitted in one cassette. DB October 19, 2024 10:53 PM Gross examination performed at [facility], [address] [place] [address] Performed By: #### C VTV, BVAMP #### [facility] CLIA [id number] [address] [place] [address] [id number] 09-29-2024 [id number] HNO ID: [id number] Author: ALKA SHEPPARD PT Service: ? Author Type: Physical Therapist Type: [id number] Filed: 09/29/2024 15:53 Note Text: [facility] Therapy Physical Therapy Plan of Care Certification Patient Name: Gisela Turner : 1970 [facility] #: [id number] Date: 09/29/2024 To: Rosie Galloway PA-C From Therapist: Alka Sheppard PT RE: Patient Certification/ Recertification Your review, approval and electronic signature are required in order to comply with Payor: JEROME / Plan: BLUE CARD PPO OOS / Product Type: PPO / regulations. The identified Physical Therapy PLAN OF CARE for the patient is as follows: R27.8 Muscular incoordination (primary encounter diagnosis) K59.00 Constipation, unspecified constipation type PLAN OF CARE UPDATE: Assessment: Gisela Turner demonstrates moderate improvement in compromised bowel function. The patient has progressed toward goals. Patient continues to present with impairments in independence in exercise and symptom management that interfere with bladder function, bowel function, physical activities, recreational activities . Current prognosis is Good due to: current objective clinical presentation, good overall health status, good support system/ coping skills . The patient will benefit from continued skilled therapy services to meet the updated goals for this plan of care as noted below. Goals for Episode of Care: created on 03/31/24 through 06/29/24, updated on 06/07/2024, 06/28/2024, 07/28/2024, 09/29/2024 Patient demonstrates independence and compliance with home exercise program.- ONGOING Patient displays improved range of motion, coordination, and muscle dynamics of pelvic floor as evidenced by the ability to lengthen without paradoxical contraction at least 75% of the time to normalize bladder/bowel function; reduce pelvic pain.-PROGRESSING Patient to correctly isolate pelvic floor muscles without compensatory patterns of breath holding and gluteal use to improve bladder/bowel control.-MOSTLY MET Patient reports having >4 bowel movements per week without use of enema, suppositories, and reduced need for supplementation to demonstrate improved bowel function.-GOAL MET Patient reports increased water intake to >50 ounces/day to promote bladder and bowel health.-MOSTLY MET Patient demonstrates ability to perform diaphragmatic breathing and relaxation practice independently to allow for decreased muscle tightness, decreased pain, and improved bladder/bowel function. -PROGRESSING, 80% PROGRESS Patient Goals: improve evacuation and defecation Time Frame for Goals and Treatment : 12/28/24 Planned Interventions, Frequency, and Duration: 1x/month, 12 weeks Total Number of Visits Planned: 3 Patient to be seen for Therapeutic exercise (72736), Neuromuscular re-education (60853), Manual therapy (83482), Therapeutic activities (20115), Self-half-way management (71808), Patient/Family/Caregive r Education, Body Mechanics Training PLAN FOR NEXT VISIT: progress HEP per tolerance, inquire regarding vulvar burning For further details regarding this patient refer to the Physical Therapy electronically documented visit dated 09/29/2024. Provider Attestation I have reviewed the treatment plan for Giesla Turner, [facility]# [id number] for the period of 09/29/24 -- 12/28/24, established on 09/29/2024. Signature certifies the need for therapy services. Normal [facility] BACTERIAL VAGINOSIS NAATon 1 11-29-2023 Lactobacillus crispatus+gasseri+kori enii + Gardnerella vaginalis + Atopobium vaginae rRNA MARCIA+probe Ql (Vag fld) Negative Normal Negative for bacterial vaginosis [facility] Comment on above: Order Comment: Speci men Type: SWAB Ordering Facility: [facility] Address: [address] [place] [address] Performed By: #### C VTV, BVAMP #### [facility] CLIA [id number] [address] [place] [address] [place] MARIO/TRICHOMONAS NAATon 1 11-29-2023 C. glabrata RNA MARCIA+probe Ql (Vag fld) Negative Normal Negative for Mario glabrata [facility] Comment on above: Order Comment: Speci men Type: SWAB Ordering Facility: [facility] Address: [address] [place] [address] Performed By: #### C VTV, BVAMP #### [facility] CLIA [id number] [address] [place] [address] [place] Mario sp DNA MARCIA+probe Ql (Vag fld) Negative Normal Negative for Mario species [facility] Comment on above: Order Comment: Speci men Type: SWAB Ordering Facility: [facility] Address: [address] [place] [address] Performed By: #### C VTV, BVAMP #### [facility] CLIA [id number] [address] [place] [address] [place] T. vaginalis DNA MARCIA+probe Ql (Unsp spec) Negative Normal Negative for Trichomonas vaginalis by amplification [facility] Comment on above: Order Comment: Speci men Type: SWAB Ordering Facility: [facility] Address: [address] [place] [address] Performed By: #### C VTV, BVAMP #### [facility] CLIA [id number] [address] [place] [address] [place] CNOVon 09-29-2024 CNOV Office Visit (OBGYWM ) GISELA TURNER ([id number]) 1970 F Date Time Provider Department 09/29/24 1:30 PM KATHIE FERREIRA OBGYWM During your visit today, we recorded the following information about you: Blood pressure Weight 112/78 60.3 kg Kahtie Ferreira MD 09/29/2024 1:59 PM Signed 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 Gisela Turner is a 54 year old female who presents for problem visit for c/o urinary frequency and vaginal burning. HPI: 54 YOF notes vaginal burning and discomfort. No bleeding or blood in urine. No abnormal discharge. Feels spasms in bladder. Has been going on about a year. Using aquaphor externally. Shower or heat almost makes it worse. Sex can make burning worse. Uses gel. No feeling of fissures or tears. Doestn' feel worse after vaginal estrogen and has been using that a couple of years. 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 LMP: 09/13/2013, Hysterectomy Age at Menarche: Age at First : Age at Menopause: Industrial Cleaner History Comments: Sexual Activity: Yes; Male Contraception: [...] Stroke Mother other (anorexia) Mother Heart Father No Known Problems Brother No Known Problems Brother No Known Problems Brother Arthritis Maternal Grandmother Heart Maternal Grandfather Arthritis Maternal Grandfather Breast Cancer Maternal Aunt Social History Tobacco Use Smoking status: Never Smokeless tobacco: Never Vaping Use Vaping status: Never Used Substance Use Topics Alcohol use: No Drug use: No Current Outpatient Medications Medication Sig mesalamine (CANASA) 1,000 mg suppository 1 Suppository by RECTAL route daily at bedtime. estradiol (ESTRACE) 2 mg tablet Take 1 tablet by mouth once daily. estradiol (ESTRACE) 0.01 % (0.1 mg/gram) vaginal cream APPLY A PEA SIZED AMOUNT TO LOWER VAGINA AT BEDTIME TWICE WEEKLY atorvastatin (LIPITOR) 20 mg tablet aspirin, enteric coated (ASPIRIN, ENTERIC COATED) 81 mg EC tablet Take by mouth. traZODone (DESYREL) 50 mg tablet traZODone Trazodone Active 50 MG AT BEDTIME January 03, 2020 10:35pm 01-03-2020 [facility] ([id number]) QUEtiapine (SEROQUEL) 50 mg tablet Take 1 tablet by mouth daily at bedtime. desvenlafaxine ER (PRISTIQ) 50 mg 24 hr tablet Take 1 tablet by mouth once daily. (Patient taking differently: Take 100 mg by mouth once daily.) lansoprazole (PREVACID) 30 mg capsule Take 30 mg by mouth once daily. LAMOTRIGINE (LAMICTAL ORAL) Take by mouth once daily. 200 mg daily buPROPion SR (WELLBUTRIN SR) 100 mg 12 hr tablet Take 1 tablet by mouth once daily. No current facility-administered medications for this visit. Allergies As of Date: 09/29/2024 Allergen Noted Reaction AMOXICILLIN 11/25/2005 Hives BACTRIM [SULFAMETHOXAZOLE] 11/13/2011 Rash DIPHENHYDRAMINE 10/07/2018 Other: See Comments GLUTEN FLOUR 10/21/2018 Intolerance MOXIFLOXACIN 06/04/2023 Hives SEPTRA [SULFAMETHOXAZOLE-TRIME THO*11/25/2005 Rash TRILEPTAL [OXCARBAZEPINE] 12/16/2005 ZOMIG [ZOLMITRIPTAN] 12/16/2005 ZYPREXA [OLANZAPINE] 12/16/2005 Fully Assessed 08/17/2024 Allergies and current medication updated:Yes SENSITIVE EXAM: The sensitive examination was discussed with the Patient or Patient's Authorized Enterprise Resource Planner. As applicable, any other physician, advance practice provider, medical student, or other health professional student that will be observing or involved in the sensitive examination for educational or training purposes was discussed with the Patient or Authorized Enterprise Resource Planner. The Patient or Authorized Enterprise Resource Planner has agreed to proceed with the sensitive examination. (Sensitive examination includes inspection and/or palpation of the breasts, pelvis, prostate and anorectal regions). EXAM: BP 112/78 Wt 133 lb (60.3kg) LMP 09/13/2013 GENERAL: pleasant, female in no apparent distress PELV (more content not included)... Normal [facility] CNTHERAPYon 09-29-2024 CNTHERAPY OT/PT/Speech Visit (AKPTB) GISELA TURNER ([id number]) 1970 F Date Time Provider Department 09/29/24 11:45 AM ALKA SHEPPARD Date Time Provider Department [place] 09/29/2024 11:45 AM [id number]-GEMXYALKA SHEPPARD [facility] Reason for Visit: PT Progress Note [1596] Primary Visit Diagnosis:Muscular incoordination [R27.8] Other Visit Diagnosis:Constipation, unspecified constipation type [K59.00] Allergies As of Date: 09/29/2024 Noted Allergy Reaction AMOXICILLIN 11/25/2005 4 - Hives BACTRIM (SULFAMETHOXAZOLE) 11/13/2011 2 - Rash DIPHENHYDRAMINE 10/07/2018 14 - Other: See Comments GLUTEN FLOUR 10/21/2018 5 - Intolerance Comments: Pt reports migraines from flour MOXIFLOXACIN 06/04/2023 4 - Hives SEPTRA (SULFAMETHOXAZOLE-TRIME THO*11/25/2005 2 - Rash TRILEPTAL (OXCARBAZEPINE) 12/16/2005 ZOMIG (ZOLMITRIPTAN) 12/16/2005 ZYPREXA (OLANZAPINE) 12/16/2005 Date Reviewed: 08/17/2024 Reviewed by: Marc Bashir, LAVON - Fully Assessed Prescriptions as of 09/29/2024 - oxybutynin XL (DITROPAN XL) 5 mg 24 hr tablet Take 1 tablet by mouth once daily. - mesalamine (CANASA) 1,000 mg suppository 1 Suppository by RECTAL route daily at bedtime. - estradiol (ESTRACE) 2 mg tablet Take 1 tablet by mouth once daily. - estradiol (ESTRACE) 0.01 % (0.1 mg/gram) vaginal cream APPLY A PEA SIZED AMOUNT TO LOWER VAGINA AT BEDTIME TWICE WEEKLY - atorvastatin (LIPITOR) 20 mg tablet - aspirin, enteric coated (ASPIRIN, ENTERIC COATED) 81 mg EC tablet Take by mouth. - traZODone (DESYREL) 50 mg tablet traZODone Trazodone Active 50 MG AT BEDTIME January 03, 2020 10:35pm 01-03-2020 [facility] ([id number]) - QUEtiapine (SEROQUEL) 50 mg tablet Take 1 tablet by mouth daily at bedtime. - desvenlafaxine ER (PRISTIQ) 50 mg 24 hr tablet Take 1 tablet by mouth once daily. - lansoprazole (PREVACID) 30 mg capsule Take 30 mg by mouth once daily. - LAMOTRIGINE (LAMICTAL ORAL) Take by mouth once daily. 200 mg daily - buPROPion SR (WELLBUTRIN SR) 100 mg 12 hr tablet Take 1 tablet by mouth once daily. Normal [facility] 09-17-2024 [facility] Telephone (OBGYWM) GISELA TURNER ([id number]) 1970 F Date Time Provider Department 09/17/24 KATHIE FERREIRA OBReturboWAleisha During your visit today, we recorded the following information about you: Araceli Khalil RN 09/17/2024 4:40 PM Signed Patient called with c/o urinary urgency and vaginal irritation. States Dr. Krause tested her urine 2 weeks ago and it was negative for infection. Patient is currently out of town. Advised to go to Urgent care locally since it's the weekend. Patient voiced agreement. She is not having vaginal discharge or odor. Has not yet tried applying Aquaphor to the vaginal opening as instructed by RR in 08/22/24 [employer] message. Offered her an appointment for next week with any provider. Patient will go to urgent care, purchase Aquaphor and then call the office on Friday if she wants an appointment. Araceli Khalil RN Allergies As of Date: 09/17/2024 Noted Allergy Reaction AMOXICILLIN 11/25/2005 4 - Hives BACTRIM (SULFAMETHOXAZOLE) 11/13/2011 2 - Rash DIPHENHYDRAMINE 10/07/2018 14 - Other: See Comments GLUTEN FLOUR 10/21/2018 5 - Intolerance Comments: Pt reports migraines from flour MOXIFLOXACIN 06/04/2023 4 - Hives SEPTRA (SULFAMETHOXAZOLE-TRIME THO*11/25/2005 2 - Rash TRILEPTAL (OXCARBAZEPINE) 12/16/2005 ZOMIG (ZOLMITRIPTAN) 12/16/2005 ZYPREXA (OLANZAPINE) 12/16/2005 Date Reviewed: 08/17/2024 Reviewed by: Marc Bashir RN - Fully Assessed Reason for Visit: Vaginal Problem [117] Prescriptions as of 09/17/2024 - mesalamine (ROWASA) 4 gram/60 mL enema 60 mL by RECTAL route at bedtime as needed. - estradiol (ESTRACE) 2 mg tablet Take 1 tablet by mouth once daily. - estradiol (ESTRACE) 0.01 % (0.1 mg/gram) vaginal cream APPLY A PEA SIZED AMOUNT TO LOWER VAGINA AT BEDTIME TWICE WEEKLY - atorvastatin (LIPITOR) 20 mg tablet - aspirin, enteric coated (ASPIRIN, ENTERIC COATED) 81 mg EC tablet Take by mouth. - traZODone (DESYREL) 50 mg tablet traZODone Trazodone Active 50 MG AT BEDTIME January 03, 2020 10:35pm 01-03-2020 [facility] ([id number]) - QUEtiapine (SEROQUEL) 50 mg tablet Take 1 tablet by mouth daily at bedtime. - desvenlafaxine ER (PRISTIQ) 50 mg 24 hr tablet Take 1 tablet by mouth once daily. - lansoprazole (PREVACID) 30 mg capsule Take 30 mg by mouth once daily. - LAMOTRIGINE (LAMICTAL ORAL) Take by mouth once daily. 200 mg daily - buPROPion SR (WELLBUTRIN SR) 100 mg 12 hr tablet Take 1 tablet by mouth once daily. Problem List As Of Date 09/17/2024 Noted Resolved Calculus of GB w/ other cystitis [K80.10] 12/16/2005 02/10/2012 Abdominal pain, unspecified site [R10.9] 12/16/2005 10/29/2013 GASTRITIS CHRONIC ATROPHIC( W/O Hemorrhage) [K2*12/20/2005 09/12/2016 Abdominal pain, right upper quadrant [R10.11] 12/20/2005 02/10/2012 Enlargement of lymph nodes [R59.9] 12/20/2011 Mastodynia [N64.4] 12/20/2011 02/10/2012 Bipolar affective [F31.9] 01/03/2012 Major depression [F32.9] 01/03/2012 Pelvic pain in female [R10.2] 06/30/2013 10/29/2013 Menorrhagia [N92.0] 06/30/2013 10/29/2013 Dysmenorrhea [N94.6] 06/30/2013 10/29/2013 Bipolar 2 disorder, major depressive episode (H*10/17/2018 Gastroesophageal reflux disease without esophag*10/19/2018 Muscular incoordination [R27.8] 03/31/2024 Constipation [K59.00] 07/28/2024 Diarrhea [R19.7] 08/17/2024 Encounter Status:Closed by ARACELI KHALIL on 09/17/24 Normal [facility] UA w/Reflex Cultureon 2023 Bilirubin, SemiQt,Ur Negative Normal NEG [facility] Comment on above: Performed By: #### U AX #### [facility] [address] [place] [address] Layout Man: Bandar Perez MD Blood, Urine Negative Normal NEG [facility] Comment on above: Performed By: #### U AX #### [facility] [address] [place] [address], [place] [address] Layout Man: Bandar Perez MD Clarity (U) Clear Normal CLEAR [facility] Comment on above: Performed By: #### U AX #### [facility] [address] [place] [address], [place] [address] Layout Man: Bandar Perez MD Color (U) Yellow Normal YEL [facility] [facility] Comment on above: Performed By: #### U AX #### [facility] [address] [place] [address], [place] [address] Layout Man: Bandar Perez MD Comment Microscopic exam not performed based on chemical results unless requested in [facility] Comment on above: Result Comment: orig inal order. Utilizing a urinalysis as the only screening method to exclude a potential uropathogen can be unreliable in many patient populations. Rapid screening tests are less sensitive than culture and if UTI is a clinical possibility, culture should be considered despite a negative urinalysis. Performed By: #### U AX #### [facility] [address] [place] [address], [place] [address] Layout Man: Bandar Perez MD Glucose Ql (U) Negative Normal NEG [facility] Comment on above: Performed By: #### U AX #### [facility] [address] [place] [address], [place] [address] Layout Man: Bandar Perez MD Ketones Ql (U) Negative Normal NEG [facility] Comment on above: Performed By: #### U AX #### [facility] [address] [place] [address], [place] [address] Layout Man: Bandar Perez MD Leukocyte esterase Test strip Ql (U) Negative Normal NEG [facility] Comment on above: Performed By: #### U AX #### [facility] [address] [place] [address] Layout Man: Bandar Perez MD Nitrite,Ur Negative Normal NEG [facility] Comment on above: Performed By: #### U AX #### [facility] [address] [place] [address] Layout Man: Bandar Perez MD PH,Ur 5.5 Normal 5.0-6.0 [facility] Comment on above: Performed By: #### U AX #### [facility] [address] [place] [address] Layout Man: Bandar Perez MD Protein Ql (U) Negative Normal NEG [facility] Comment on above: Performed By: #### U AX #### [facility] [address] [place] [address] Layout Man: Bandar Perez MD Spec. [place],Ur 1.006 Low 1.010-1.025 [facility] Comment on above: Performed By: #### U AX #### [facility] [address] [place] [address] Layout Man: Bandar Perez MD Urobilinogen,Ur Normal Normal 0.0-1.0 [facility] Comment on above: Performed By: #### U AX #### [facility] [address] [place] [address] Layout Man: Bandar Perez MD Urinalysis with Reflex to Cu ltureon 09-17-2024 Bilirubin Ql (U) Negative NEGATIVE [facility] [employer] [facility] [employer] Clarity (U) Clear Clear [email or web address] [employer] Color (U) Yellow Yellow [employer] [facility] [employer] Comment Microscopic exam not performed based on chemical results unless requested in original order. [place] Comment [employer] [facility] Comment Utilizing a urinalys is as the only screening method to exclude a potential uropathogen can be unreliable in many patient populations. Rapid screening tests are less sensitive than culture and if UTI is a clinical possibility, culture should be considered despite a negative urinalysis. [employer] Glucose Test strip (U) [Mass/Vol] Negative NEGATIVE mg/dL [facility] Hemoglobin Auto test strip Ql (U) Negative NEGATIVE [facility] Interpretation and review of laboratory results Abnormal [facility] Ketones (U) [Mass/Vol] Negative NEGATIVE mg/d L [facility] Leukocyte esterase Test strip Ql (U) Negative NEGATIVE [facility] Nitrite Ql (U) Negative NEGATIVE [facility] pH (U) 5.5 [pH] 5.0 - 6.0 [facility] Protein (U) [Mass/Vol] Negative NEGATIVE mg/d L [facility] Specific gravity (U) [Rel density] 1.006 Low 1.010 - 1.025 [facility] Urobilinogen Qn (U) Normal 0.0 - 1. 0 EU/dL [facility] Brain/Head without Contrasto n 09-03-2024 Brain/Head without Contrast [facility] Imaging Services [address] [place] [id number] Brain/Head without Contrast MR#: [id number] Acct: [id number] Name: GISELA TURNER Rep #: [id number] : 1970 F 54 From: Karri frank MD PCP: Dr. Sumanth Krause MD Status: [facility] Study: Brain/Head without Contrast Date of Exam: 08/17 07/10 Exam# [id number] Ordering Dr: Mook Suá[place] [id number] STUDY: CT BRAIN WITHOUT CONTRAST REASON FOR EXAM: Female, 54 years old. Pain RADIATION DOSAGE (If Supplied By Facility): CTDIvol = ( 44.99 ) mGy, DLP = ( 779.24 ) mGycm TECHNIQUE: Transaxial CT imaging of the brain was performed without administration of intravenous contrast material. Individualized dose optimization techniques were used for this CT. COMPARISON: 04/14/2021 FINDINGS: Normal soft tissue structures. Normal calvarium. Normal size ventricles and extra-axial spaces for the patient''s age. Normal white matter tracts of the cerebral hemispheres. Normal basal ganglia and thalami. Normal brainstem. Normal cerebellum. There is no intracranial hemorrhage. There are no findings of an acute ischemic infarction. Normal visualized paranasal sinuses. CT/Brain/Head without Contrast IMPRESSION: Normal unenhanced CT scan of the brain. Electronically Signed: Karri Velasco MD at 17:59 EDT , CC: Dr. Mook Suárez DO; Dr. Sumanth Krause MD Director Global Development: Signed Normal [facility] Emergency Department Summary on 09-03-2024 Emergency Department Summary [facility] Medical Records Department [address] [place] [address] Emergency Department Summary 09/03/24 MR#: [id number] Acct: [id number] Name: GISELA TURNER Rep #: [id number] : 1970 54 From: Mook Suárez DO PCP: Dr. Sumanth Krause MD Status:DEP ER Location: ED HPI History of Present Illness Chief Complaint: Headache Informant: patient Onset/Context/Timing Onset: Days (5) Context: Gradual Timing: Intermittent Quality -Headache: Positive for Similar Prior Headaches and Sharp Location: Right side of her head, top of head, and face Worsened by: Bright lights Relieved by: Nothing Associated Symptoms/Injury Associated Symptoms: Positive for Nausea and Photophobia; Negative for Fever, Vomiting, Sore Throat, Sinus Pressure, Numbness, Tingling, Preceding Aura, Visual Changes, Blurred Vision or Visual Loss Narrative Narrative: Patient presents with headache that has been intermittent over the last 5 days. Patient describes the pain as sharp. Patient states the pain is mainly over the right side of her head and also up and up overhead. Patient states it is worse with lights. Patient states it feels similar to prior migraine headaches. Patient describes it as sharp. Patient admits to some nausea but denies any vomiting. Patient admits to some photophobia. Patient denies any paresthesias or weakness. Patient denies any visual changes. [facility] Medical History Fatty liver Anorexia Vertigo History of diverticulitis Non-smoker Shortness of breath on exertion History of edema History of echocardiogram Cardiology follow-up encounter COVID-19 virus detected (08/29/20) Nonobstructive atherosclerosis of coronary artery NSTEMI, initial episode of care (10/07/21) Elevated troponin level Degenerative disc disease, cervical Cervical radiculopathy Depression GERD (gastroesophageal reflux disease) Epigastric abdominal pain Frequent headaches Anxiety Bipolar disease, chronic Home Medications ???Medication ???Instructions ???Recorded ???Last Taken ???Type desogestrel-e.estradiol 0.15 2 mg PO DAILY 08/25/13 10/29/21 History mg-0.02 mg(21)/e.estrad 0.01 mg(5) tablet quetiapine 25 mg tablet 50 mg PO QHS 10/07/18 10/29/21 History bupropion HCl 100 mg tablet 100 mg PO DAILY 08/09/19 10/29/21 History desvenlafaxine succinate 25 mg 50 mg PO DAILY 04/14/21 10/29/21 History tablet,extended release 24 hr (Pristiq) lamotrigine 200 mg tablet 200 mg PO QHS 04/14/21 10/29/21 History (Lamictal) ondansetron 4 mg disintegrating 4 mg PO Q8H PRN PRN Nausea #10 tabs 10/30/23 Unknown Rx tablet dicyclomine 20 mg tablet 10 mg (1/2 x 20 mg) PO TID PRN 12/05/23 Unknown Rx abdominal pain/cramps #30 tabs aspirin 81 mg tablet,delayed 81 mg PO DAILY #30 tabs 03/02/24 Unknown Rx release (Adult Aspirin Regimen) atorvastatin 20 mg tablet 20 mg PO DAILY #90 tabs 03/02/24 Unknown Rx trazodone 50 mg tablet 25 mg PO QHS 03/02/24 Unknown History lansoprazole 30 mg capsule,delayed 30 mg PO DAILY #60 caps 04/25/24 Unknown Rx release Allergy/AdvReac Type Severity Reaction Status Date / Time verapamil Allergy Mild Rash Verified 09/03/24 16:12 amoxicillin (Amoxicillin) Allergy Hives Verified 09/03/24 16:12 sulfamethoxazole (From Allergy Rash Verified 09/03/24 16:12 Septra) trimethoprim (From Septra) Allergy Rash Verified 09/03/24 16:12 diphenhydramine (From AdvReac Other Verified 09/03/24 16:12 Benadryl) moxifloxacin (From Avelox) AdvReac NEEDS Verified 09/03/24 16:12 FOLLOW-UP olanzapine (From Zyprexa) AdvReac Unknown Verified 09/03/24 16:12 oxcarbazepine (From AdvReac Unknown Verified 09/03/24 16:12 Trileptal) sumatriptan (From Imitrex) AdvReac Other Verified 09/03/24 16:12 zolmitriptan (From Zomig) AdvReac Unknown Verified 09/03/24 16:12 Family History Mother CVA (cerebral vascular accident) Surgical History History of nasal septoplasty History of tonsillectomy and adenoidectomy History of hysterectomy History of cholecystectomy History of carpal tunnel release History of left heart catheterization (10/08/21) Social History household members: spouse Smoking Status: Never smoker alcohol intake: never substance use type: does not use ROS ROS ED Constitutional Constitutional ED: Denies chills or fever(s) Eyes Eyes: Denies blurry vision or change in vision ENT ENT ED: Denies rhinorrhea or sore throat Cardiovascular Cardiovascular: Denies chest pain or palpitations Respiratory/Chest Respiratory/Chest: Denies cough or dyspnea Gastrointestinal Gastrointestinal: Re (more content not included)... Normal [facility] CNTHERAPYon 08-25-2024 CNTHERAPY OT/PT/Speech Visit (AKPTB) YUEGISELA Lesa ([id number]) 1970 F Date Time Provider Department 08/25/24 11:45 AM ALKA SHEPPARD Date Time Provider Department [place] 08/25/2024 11:45 AM [id number] SHEPPARD [facility] Reason for Visit: Physical Therapy [503] Primary Visit Diagnosis:Muscular incoordination [R27.8] Other Visit Diagnosis:Constipation, unspecified constipation type [K59.00] Allergies As of Date: 08/25/2024 Noted Allergy Reaction AMOXICILLIN 11/25/2005 4 - Hives BACTRIM (SULFAMETHOXAZOLE) 11/13/2011 2 - Rash DIPHENHYDRAMINE 10/07/2018 14 - Other: See Comments GLUTEN FLOUR 10/21/2018 5 - Intolerance Comments: Pt reports migraines from flour MOXIFLOXACIN 06/04/2023 4 - Hives SEPTRA (SULFAMETHOXAZOLE-TRIME THO*11/25/2005 2 - Rash TRILEPTAL (OXCARBAZEPINE) 12/16/2005 ZOMIG (ZOLMITRIPTAN) 12/16/2005 ZYPREXA (OLANZAPINE) 12/16/2005 Date Reviewed: 08/17/2024 Reviewed by: Marc Bashir, RN - Fully Assessed Prescriptions as of 08/25/2024 - hydrocortisone (ANUSOL-HC) 2.5 % rectal cream by RECTAL route two times a day. - estradiol (ESTRACE) 2 mg tablet Take 1 tablet by mouth once daily. - estradiol (ESTRACE) 0.01 % (0.1 mg/gram) vaginal cream APPLY A PEA SIZED AMOUNT TO LOWER VAGINA AT BEDTIME TWICE WEEKLY - dicyclomine (BENTYL) 20 mg tablet Take 1 tablet by mouth three times a day. - atorvastatin (LIPITOR) 20 mg tablet - aspirin, enteric coated (ASPIRIN, ENTERIC COATED) 81 mg EC tablet Take by mouth. - traZODone (DESYREL) 50 mg tablet traZODone Trazodone Active 50 MG AT BEDTIME January 03, 2020 10:35pm 01-03-2020 [facility] ([id number]) - QUEtiapine (SEROQUEL) 50 mg tablet Take 1 tablet by mouth daily at bedtime. - desvenlafaxine ER (PRISTIQ) 50 mg 24 hr tablet Take 1 tablet by mouth once daily. - lansoprazole (PREVACID) 30 mg capsule Take 30 mg by mouth once daily. - LAMOTRIGINE (LAMICTAL ORAL) Take by mouth once daily. 200 mg daily - buPROPion SR (WELLBUTRIN SR) 100 mg 12 hr tablet Take 1 tablet by mouth once daily. [employer] Developer: Therapy (PT/OT/Speech/Resp) ID: [id number] 08/25/2024 12:33 PM Author: ALKA SHEPPARD Signed by ALKA SHEPPARD PT on 08/25/2024 at 12:33 PM Document text: Program_ID:[id number] Access Code: [email or web address] URL: [email or web address] Date: 08-25-2024 Prepared By: Alka Sheppard Program Notes Exercises - Supine Diaphragmatic Breathing with Pelvic Floor Lengthening - 2 x daily - 7 x weekly - sets - 10 reps - Diaphragmatic Breathing in Child's Pose with Pelvic Floor Relaxation - 1-2 x daily - 7 x weekly - 2 sets - reps - Supine Lower Trunk Rotation - 1-2 x daily - 7 x weekly - sets - 10 reps - Hip Flexor Stretch on Step - 1-2 x daily - 7 x weekly - 3 sets - reps - Static Prone on Elbows - 1-2 x daily - 7 x weekly - 3 sets - reps - Cat Cow to Child's Pose - 1 x daily - 7 x weekly - 3 sets - 10 reps - Seated Hamstring Stretch - 2 x daily - 7 x weekly - 3 sets - reps - Right Standing Lateral Shift Correction at Wall - Hold - 2 x daily - 7 x weekly - sets - 10 reps Patient Education - Get To Know Your Pelvic Floor- Female - cc Pelvic Floor - Constipation Massage - cc Pelvic Floor - Bladder Health AND Emptying Techniques - cc Pelvic Floor - Bowel Movement Education - cc Pelvic Floor - Winston Stool Chart - cc Pelvic Floor - Bowel Diary - cc Pelvic Floor Female Internal Pelvic Floor Self Massage - cc Pelvic Floor - Lubricants Normal [facility] THERAPY NTon 08-25-2024 THERAPY NT HNO ID: [id number] Author: ALKA SHEPPARD PT Service: ? Author Type: Physical Therapist Type: Therapy (PT/OT/Speech/Resp) Filed: 08/25/2024 12:33 Note Text: Program_ID:[id number] Access Code: [email or web address] URL: [email or web address] Date: 08-25-2024 Prepared By: Alka Sheppard Program Notes Exercises - Supine Diaphragmatic Breathing with Pelvic Floor Lengthening - 2 x daily - 7 x weekly - sets - 10 reps - Diaphragmatic Breathing in Child's Pose with Pelvic Floor Relaxation - 1-2 x daily - 7 x weekly - 2 sets - reps - Supine Lower Trunk Rotation - 1-2 x daily - 7 x weekly - sets - 10 reps - Hip Flexor Stretch on Step - 1-2 x daily - 7 x weekly - 3 sets - reps - Static Prone on Elbows - 1-2 x daily - 7 x weekly - 3 sets - reps - Cat Cow to Child's Pose - 1 x daily - 7 x weekly - 3 sets - 10 reps - Seated Hamstring Stretch - 2 x daily - 7 x weekly - 3 sets - reps - Right Standing Lateral Shift Correction at Wall - Hold - 2 x daily - 7 x weekly - sets - 10 reps Patient Education - Get To Know Your Pelvic Floor- Female - cc Pelvic Floor - Constipation Massage - cc Pelvic Floor - Bladder Health AND Emptying Techniques - cc Pelvic Floor - Bowel Movement Education - cc Pelvic Floor - Winston Stool Chart - cc Pelvic Floor - Bowel Diary - cc Pelvic Floor Female Internal Pelvic Floor Self Massage - cc Pelvic Floor - Lubricants Normal [facility] G lamblia+Cryptosp Ag Stl Ql IAon 08-24-2024 G. lamblia+Cryptosporidiu m sp Ag IA Ql (Stl) CRYPTOSPORIDIUM ANTIGEN BY EIA: Negative for Cryptosporidium by EIA. GIARDIA ANTIGEN BY EIA: Negative for Giardia lamblia by EIA. Normal [facility] Comment on above: Performed By: #### 4 8059-0 ####[facility] [id number] [place] [address] [place] Gastrointestinal pathogens i dentified MARCIA+probe Nom (Stl)on 08-24-2024 Campylobacter sp DNA MARCIA+probe Nom (Unsp spec) Not detected Normal Not Detected [facility] Comment on above: Order Comment: Speci men Type: STOOL SPECIMEN Ordering Facility: [facility] Address: [address] [place] [address] Performed By: #### 7 9390-1 #### [facility] [id number] [address] [place] [address] [place] Salmonella sp DNA MARCIA+probe Ql (Unsp spec) Not detected Normal Not Detected [facility] Comment on above: Order Comment: Speci men Type: STOOL SPECIMEN Ordering Facility: [facility] Address: [address] [place] [address] Performed By: #### 7 9390-1 #### [facility] CLIA [id number] [address] [place] [address] [place] Shiga toxin stx gene MARCIA+probe Nom (Unsp spec) Not detected Normal Not Detected [facility] Comment on above: Order Comment: Speci men Type: STOOL SPECIMEN Ordering Facility: [facility] Address: [address] [place] [address] Performed By: #### 7 9390-1 #### [facility] CLIA [id number] [address] [place] [address] [place] Shigella sp DNA MARCIA+probe Ql (Unsp spec) Not detected Normal Not Detected [facility] Comment on above: Order Comment: Speci men Type: STOOL SPECIMEN Ordering Facility: [facility] Address: [address] [place] [address] Performed By: #### 7 9390-1 #### [facility] CLIA [id number] [address] [place] [id number] [place] [id number] 08-17-2024 [id number] HNO ID: [id number] Author: MARC BASHIR RN Service: ? Author Type: Registered Nurse Type: [id number] Filed: 08/17/2024 10:18 Note Text: The patient received a copy of Colonoscopy discharge instructions that contain information for how to contact the physician who performed the procedure and when to seek medical care. Normal [facility] Colonoscopyon 08-17-2024 Colonoscopy [facility] Gastrointestinal Endoscopy Patient Name: Gisela Turner Procedure Date: 08/17/2024 9:11 AM Date of : 1970 Admit Type: Outpatient Age: 54 Gender: Female Note Status: Finalized Procedure: Colonoscopy Indications: Change in bowel habits, Providers: Lizzy High MD Patient Profile: Refer to note in patient chart for documentation of history and physical. Last Colonoscopy: February 2024. Referring Physician: Rosie Galloway (Referring MD) Medicines: Midazolam 8 mg IV, Fentanyl 100 micrograms IV Complications: No immediate complications. Requesting Provider: Procedure: Pre-Anesthesia Assessment: - Prior to the procedure, a History and Physical was performed, and patient medications and allergies were reviewed. The patient is competent. The risks and benefits of the procedure and the sedation options and risks were discussed with the patient. All questions were answered and informed consent was obtained. Patient identification and proposed procedure were verified by the physician in the pre-procedure area. Mental Status Examination: alert and oriented. Airway Examination: normal oropharyngeal airway and neck mobility. Respiratory Examination: clear to auscultation. CV Examination: normal. Prophylactic Antibiotics: The patient does not require prophylactic antibiotics. Prior Anticoagulants: The patient has taken no anticoagulant or antiplatelet agents. ASA Grade Assessment: II - A patient with mild systemic disease. After reviewing the risks and benefits, the patient was deemed in satisfactory condition to undergo the procedure. The anesthesia plan was to use moderate sedation / analgesia (conscious sedation). Immediately prior to administration of medications, the patient was re-assessed for adequacy to receive sedatives. The heart rate, respiratory rate, oxygen saturations, blood pressure, adequacy of pulmonary ventilation, and response to care were monitored throughout the procedure. The physical status of the patient was re-assessed after the procedure. After I obtained informed consent, the scope was passed under direct vision. Throughout the procedure, the patient's blood pressure, pulse, and oxygen saturations were monitored continuously. The Colonoscope was introduced through the anus and advanced to the cecum, identified by the appendiceal orifice, IC valve and transillumination. The colonoscopy was performed without difficulty. The patient tolerated the procedure well. The quality of the bowel preparation was adequate to identify polyps greater than 5 mm in size. The appendiceal orifice and the rectum were photographed. Moderate Sedation: The administration of moderate sedation was initiated at 09:20 AM. Moderate (conscious) sedation was personally administered by the endoscopist. The following parameters were monitored: oxygen saturation, heart rate, blood pressure, respiratory rate, EKG, adequacy of pulmonary ventilation, and response to care. Total physician intraservice time was 30 minutes. Findings: The perianal and digital rectal examinations were normal. Non-bleeding internal hemorrhoids were found. A localized area of moderately erythematous, friable (with contact bleeding) and inflamed mucosa was found in the rectum (no inflammatory changes poximal to rectum). Biopsies were taken with a cold forceps for histology. Verification of patient identification for the specimen was done by the nurse. Estimated blood loss was minimal. Biopsies for histology were taken with a cold forceps from the entire colon ( from rectum) and terminal ileum for evaluation of microscopic colitis. Estimated blood loss was minimal. Impression: - Non-bleeding internal hemorrhoids. - Erythematous, friable (with contact bleeding) and inflamed mucosa in the rectum. Biopsied. - Biopsies were taken with a cold forceps from the entire colon for evaluation of microscopic colitis. Recommendation: - Discharge patient to home (ambulatory). - Resume previous diet. - Continue present medications. - Await pathology results. - Return to GI clinic at the next available appointment. - Patient has a contact number available for emergencies. The signs and symptoms of potential delayed complications were discussed with the patient. Return to normal activities tomorrow. Written discharge instructions were provided to the patient. - Repeat colonoscopy is recommended. The colonoscopy date will be determined after pathology results from today's exam become available for review. Procedure Code(s): --- Professional --- 69182, Colonoscopy, flexible; with biopsy, single or multiple 01277, 59, Moderate sedation services provided by the same physician or other qualified health healthcare consulting manager performing the diagnostic or therapeutic service that the sedation supports, requiring the presence of an (more content not included)... Normal [facility] Flexible sigmoidoscopy study on 08-17-2024 [facility] Gastrointestinal Endoscopy Patient Name: Gisela Turner Procedure Date: 08/17/2024 9:11 AM Date of : 1970 Admit Type: Outpatient Age: 54 Gender: Female Note Status: Finalized Procedure: Colonoscopy Indications: Change in bowel habits, Providers: Lizzy High MD Patient Profile: Refer to note in patient chart for documentation of history and physical. Last Colonoscopy: February 2024. Referring Physician: Rosie Galloway (Referring MD) Medicines: Midazolam 8 mg IV, Fentanyl 100 micrograms IV Complications: No immediate complications. Requesting Provider: Procedure: Pre-Anesthesia Assessment: - Prior to the procedure, a History and Physical was performed, and patient medications and allergies were reviewed. The patient is competent. The risks and benefits of the procedure and the sedation options and risks were discussed with the patient. All questions were answered and informed consent was obtained. Patient identification and proposed procedure were verified by the physician in the pre-procedure area. Mental Status Examination: alert and oriented. Airway Examination: normal oropharyngeal airway and neck mobility. Respiratory Examination: clear to auscultation. CV Examination: normal. Prophylactic Antibiotics: The patient does not require prophylactic antibiotics. Prior Anticoagulants: The patient has taken no anticoagulant or antiplatelet agents. ASA Grade Assessment: II - A patient with mild systemic disease. After reviewing the risks and benefits, the patient was deemed in satisfactory condition to undergo the procedure. The anesthesia plan was to use moderate sedation / analgesia (conscious sedation). Immediately prior to administration of medications, the patient was re-assessed for adequacy to receive sedatives. The heart rate, respiratory rate, oxygen saturations, blood pressure, adequacy of pulmonary ventilation, and response to care were monitored throughout the procedure. The physical status of the patient was re-assessed after the procedure. After I obtained informed consent, the scope was passed under direct vision. Throughout the procedure, the patient's blood pressure, pulse, and oxygen saturations were monitored continuously. The Colonoscope was introduced through the anus and advanced to the cecum, identified by the appendiceal orifice, IC valve and transillumination. The colonoscopy was performed without difficulty. The patient tolerated the procedure well. The quality of the bowel preparation was adequate to identify polyps greater than 5 mm in size. The appendiceal orifice and the rectum were photographed. Moderate Sedation: The administration of moderate sedation was initiated at 09:20 AM. Moderate (conscious) sedation was personally administered by the endoscopist. The following parameters were monitored: oxygen saturation, heart rate, blood pressure, respiratory rate, EKG, adequacy of pulmonary ventilation, and response to care. Total physician intraservice time was 30 minutes. Findings: The perianal and digital rectal examinations were normal. Non-bleeding internal hemorrhoids were found. A localized area of moderately erythematous, friable (with contact bleeding) and inflamed mucosa was found in the rectum (no inflammatory changes poximal to rectum). Biopsies were taken with a cold forceps for histology. Verification of patient identification for the specimen was done by the nurse. Estimated blood loss was minimal. Biopsies for histology were taken with a cold forceps from the entire colon ( from rectum) and terminal ileum for evaluation of microscopic colitis. Estimated blood loss was minimal. Impression: - Non-bleeding internal hemorrhoids. - Erythematous, friable (with contact blee (more content not included)... PROVATION [facility] Radiology Study observation (narrative) [facility] HISTORY PHYSICALon HISTORY PHYSICAL HNO ID: [id number] Author: LIZZY HIGH MD Service: General Surgery Author Type: Physician Type: H&P Filed: 08/17/2024 09:05 Note Text: Gisela Turner is a 54 year old female with a history of constipation that I have been following. She has been following with PFPT. Her PT reached out to me in regards to blood in her stool. I recommended an in person evaluation. Onset: -About a month -On FODMAP diet, went back to normal foods -But then went back to crampy, diarrhea, blood Lumps/lesions near the anus: no Tissue/hemorrhoid prolapsing from anus: no Rectal pain: no Rectal bleeding: - sometimes bright red, sometimes dark - every bowel movement Attempted txs: Sitz baths: no HC: no OTC: prep H BMs: Frequency: daily of some sort, sometimes several times Consistency: sometimes loose, sometimes hard Laxatives/bowel regimen: no Straining during BMs: sometimes Abdomen: -Feels like things get stuck in LLQ -Crampy like a menstral cycle N/V/F/C: once in a while will get nauseated Overall getting better/worse/staying the same: - bleeding: a teeny bit better - constipation/bowel movements: more gas lately , runny lately with blood Updates since last visit ( new scopes, surgeries, deliveries, etc.): - going to PFPT - didn't feel like she was making progress Internal exam helps the most Physical Exam: Vitals 08/09/24 1457 Weight: 58.1 kg (128 lb) Height: 160 cm (5' 3) General - awake, alert, no acute distress Anorectal: Perianal skin is intact. No erythema, induration or excoriation. No fissure, fistula or external hemorrhoids. Digital Rectal Exam: Anus: closed Resting tone: HIGH Squeeze tone: WEAK Valsalva: poor relaxation Impression: altered bowel habits Discussion/Plan/Recomme ndations: I have discussed the above with the patient. I have offered colonoscopy, possible biopsies I have explained the procedure to the patient. I have counseled the patient as to the risks of the procedure, including but not limited to: infection, bleeding, injury to any intrabdominal organs such as liver/spleen, perforation of the GI tract, inability to complete the procedure, complications of anesthesia, etc. - the patient understands. The patient wishes to proceed. I have answered all questions to the patient?s satisfaction and the patient has no further questions. . Normal [facility] NURSING PROGon 08-17-2024 NURSING PROG HNO ID: [id number] Author: MARC BASHIR RN Service: ? Author Type: Registered Nurse Type: Nursing Progress Note Filed: 08/17/2024 10:20 Note Text: pt arrived to phase 2 resting on left side. SR up x 2, call light in reach. Marc Bashir RN Normal [facility] SURGICAL PATHOLOGYon 024 CASE REPORT Normal [facility] Comment on above: Order Comment: Speci men Type: SWAB Ordering Facility: [facility] Address: [address] [place] [address] Result Comment: Surg ical Pathology Report Case: [id number] Authorizing Provider: Lizzy High MD Collected: 08/17/2024 09:44 AM Ordering Location: Ambulatory Surgery Received: 08/17/2024 10:23 AM Pathologist: Carina Cordoba MD Specimens: A) - Small Bowel, Terminal Ileum, Biopsy B) - Colon, Biopsy, random colon biopsies C) - Rectum, Biopsy, rectum biopies Performed By: #### C VTV, BVAMP #### [facility] CLIA [id number] [address] [place] [address] DIAGNOSIS COMMENT C. The histomorpholo gic features are nonspecific and diagnostic considerations include medication-induced mucosal injury, infections, and idiopathic inflammatory bowel disease, among others. Correlation with patient's clinical history and endoscopic findings is recommended. Normal [facility] Comment on above: Order Comment: Speci men Type: SWAB Ordering Facility: [facility] Address: [address] [place] [address] Performed By: #### C VTV, BVAMP #### [facility] CLIA [id number] [address] [place] [address] FINAL DIAGNOSIS Normal [facility] Comment on above: Order Comment: Speci men Type: SWAB Ordering Facility: [facility] Address: [address] [place] [address] Result Comment: A. T erminal ileum, biopsy: - Small intestinal mucosa with no significant pathologic change. B. Colon, random, biopsy: - Colonic mucosa with no significant pathologic change. C. Rectum, biopsy: - Active proctitis with mild architectural distortion, see comment. Performed By: #### C VTV, BVAMP #### [facility] CLIA [id number] [address] [place] [address] FINAL PERFORMING LAB Normal [facility] Comment on above: Order Comment: Speci men Type: SWAB Ordering Facility: [facility] Address: [address] [place] [address] Result Comment: Diag nostic interpretation performed at [facility], [address] [place] [address] CLIA# [id number] Drop Wire Aliner: Khalif De La Paz M.D. Performed By: #### C GARRET, BVAMP #### [facility] CLIA [id number] [address] [place] [address] [place] GROSS DESCRIPTION [facility] Comment on above: Order Comment: Speci men Type: SWAB Ordering Facility: [facility] Address: [address] [place] [address] Result Comment: A. S mall Bowel, Terminal Ileum, Biopsy Received in formalin are two pieces of silveira, soft tissue aggregating to 0.5 x 0.3 x 0.1 cm. Totally submitted in one cassette. B. Colon, Biopsy Received in formalin are multiple pieces of silveira, soft tissue aggregating to 1.6 x 0.4 x 0.1 cm. Totally submitted in two cassettes. C. Rectum, Biopsy Received in formalin are two pieces of silveira, soft tissue aggregating to 0.7 x 0.2 x 0.2 cm. Totally submitted in one cassette. DB August 17, 2024 8:05 PM Gross examination performed at [facility], [address] [place] [address] Performed By: #### C VTV, BVAMP #### [facility] CLIA [id number] [address] [place] [address] [place] C diff Tox gens Stl Ql MARCIA+p robeon 08-11-2024 C. difficile toxin genes MARCIA+probe Ql (Stl) Negative Normal Negative for C. difficile toxin by PCR [facility] Comment on above: Order Comment: Speci men Type: STOOL SPECIMENOrdering Facility: [facility] Address: [address] [place] [address] Performed By: #### 3 8445-3, 27918-8 ####[facility] [id number] [place] [address] [place] CNOVon 08-11-2024 CNOV Office Visit (OBGYWM ) GISELA TURNER ([id number]) 1970 F Date Time Provider Department 08/11/24 2:20 PM KATHIE FERREIRA OBGYWM During your visit today, we recorded the following information about you: Blood pressure Weight Height 124/76 59.3 kg 1.593 m Kathie Ferreira MD 08/11/2024 2:52 PM Signed 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 Gisela is a 54 year old who presents for an annual gynecologic exam with complaints, vaginal dryness. Using estrace cream vaginally and estrace oral and doing well but last few weeks some burning, even at night.More internal. Postmenopausal: yes HRT use: yes. 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 As applicable, any other physician, advance practice provider, medical student, or other health professional student that will be observing or involved in the sensitive examination for educational or training purposes was discussed with the Patient or Authorized Enterprise Resource Planner. The Patient or Authorized Enterprise Resource Planner has agreed to proceed with the sensitive examination. (Sensitive examination includes inspection and/or palpation of the breasts, pelvis, prostate and anorectal regions). EXAM: LMP 09/13/2013 GENERAL: pleasant, female in no apparent distress [...] external genitalia normal, normal Bartholin's glands, urethra, [place]'s glands, no vulvar lesions, good vaginal support, physiologic discharge present, normal appearing perineal body and perianal region, cervix surgically absent, discharge white c/w vaginal esttogen, no erythema, no malorodr BIMANUAL: no adnexal masses, non-tender, and uterus surgically absent RECTOVAGINAL: deferred. NEURO: alert and oriented x3,exam grossly non-focal EXTREMITIES: normal ASSESSMENT/PLAN: 1) Health maintenance: Pap/HPV screening no longer needed Mammogram ordered cont. estrogen trial of metrogel for vaginal burning, can't do testing b/c of yeast medication 2) Follow up one year or sooner as needed Allergies As of Date: 08/11/2024 Noted Allergy Reaction AMOXICILLIN 11/25/2005 4 - Hives BACTRIM (SULFAMETHOXAZOLE) 11/13/2011 2 - Rash DIPHENHYDRAMINE 10/07/2018 14 - Other: See Comments GLUTEN FLOUR 10/21/2018 5 - Intolerance Comments: Pt reports migraines from flour MOXIFLOXACIN 06/04/2023 4 - Hives SEPTRA (SULFAMETHOXAZOLE-TRIM (more content not included)... Normal [facility] CNTHERAPYon 08-11-2024 CNTHERAPY OT/PT/Speech Visit (NAZIAPTB) GISELA TURNER ([id number]) 1970 F Date Time Provider Department 08/11/24 11:45 AM ALKA SHEPPARD Date Time Provider Department Center 08/11/2024 11:45 AM [id number] HSEPPARD [facility] Reason for Visit: Physical Therapy [503] Primary Visit Diagnosis:Muscular incoordination [R27.8] Other Visit Diagnosis:Constipation, unspecified constipation type [K59.00] Allergies As of Date: 08/11/2024 Noted Allergy Reaction AMOXICILLIN 11/25/2005 4 - Hives BACTRIM (SULFAMETHOXAZOLE) 11/13/2011 2 - Rash DIPHENHYDRAMINE 10/07/2018 14 - Other: See Comments GLUTEN FLOUR 10/21/2018 5 - Intolerance Comments: Pt reports migraines from flour MOXIFLOXACIN 06/04/2023 4 - Hives SEPTRA (SULFAMETHOXAZOLE-TRIME THO*11/25/2005 2 - Rash TRILEPTAL (OXCARBAZEPINE) 12/16/2005 ZOMIG (ZOLMITRIPTAN) 12/16/2005 ZYPREXA (OLANZAPINE) 12/16/2005 Date Reviewed: 08/11/2024 Reviewed by: Kathie Ferreira MD - Fully Assessed Prescriptions as of 08/11/2024 - metroNIDAZOLE (METROGEL VAGINAL) 0.75 % (37.5mg/5 gram) Vaginal Gel Use 1 Applicatorful vaginally daily at bedtime for 5 days. - estradiol (ESTRACE) 2 mg tablet Take 1 tablet by mouth once daily. - estradiol (ESTRACE) 0.01 % (0.1 mg/gram) vaginal cream APPLY A PEA SIZED AMOUNT TO LOWER VAGINA AT BEDTIME TWICE WEEKLY - hydrocortisone (ANUSOL-HC) 25 mg suppository 1 Suppository by RECTAL route every 12 hours. - dicyclomine (BENTYL) 20 mg tablet Take 1 tablet by mouth three times a day. - atorvastatin (LIPITOR) 20 mg tablet - aspirin, enteric coated (ASPIRIN, ENTERIC COATED) 81 mg EC tablet Take by mouth. - traZODone (DESYREL) 50 mg tablet traZODone Trazodone Active 50 MG AT BEDTIME January 03, 2020 10:35pm 01-03-2020 [facility] ([id number]) - QUEtiapine (SEROQUEL) 50 mg tablet Take 1 tablet by mouth daily at bedtime. - desvenlafaxine ER (PRISTIQ) 50 mg 24 hr tablet Take 1 tablet by mouth once daily. - lansoprazole (PREVACID) 30 mg capsule Take 30 mg by mouth once daily. - LAMOTRIGINE (LAMICTAL ORAL) Take by mouth once daily. 200 mg daily - buPROPion SR (WELLBUTRIN SR) 100 mg 12 hr tablet Take 1 tablet by mouth once daily. [employer] Developer: Therapy (PT/OT/Speech/Resp) ID: [id number] 08/11/2024 12:25 PM Author: ALKA SHEPPARD Signed by ALKA SHEPPARD PT on 08/11/2024 at 12:25 PM Document text: Program_ID:[id number] Access Code: [email or web address] URL: [email or web address] Date: 08-11-2024 Prepared By: Alka Sheppard Program Notes Exercises - Supine Diaphragmatic Breathing with Pelvic Floor Lengthening - 2 x daily - 7 x weekly - sets - 10 reps - Diaphragmatic Breathing in Child's Pose with Pelvic Floor Relaxation - 1-2 x daily - 7 x weekly - 2 sets - reps - Supine Lower Trunk Rotation - 1-2 x daily - 7 x weekly - sets - 10 reps - Hip Flexor Stretch on Step - 1-2 x daily - 7 x weekly - 3 sets - reps - Static Prone on Elbows - 1-2 x daily - 7 x weekly - 3 sets - reps - Cat Cow to Child's Pose - 1 x daily - 7 x weekly - 3 sets - 10 reps - Seated Hamstring Stretch - 2 x daily - 7 x weekly - 3 sets - reps - Right Standing Lateral Shift Correction at Wall - Hold - 2 x daily - 7 x weekly - sets - 10 reps Patient Education - Get To Know Your Pelvic Floor- Female - cc Pelvic Floor - Constipation Massage - cc Pelvic Floor - Bladder Health AND Emptying Techniques - cc Pelvic Floor - Bowel Movement Education - cc Pelvic Floor - Winston Stool Chart - cc Pelvic Floor - Bowel Diary Normal [facility] Calprotectin (Stl) [Mass/Mas s]on 08-11-2024 CALPROTECTIN, FECAL INTERP Elevated Abnormal Normal [facility] Comment on above: Order Comment: Speci men Type: STOOL SPECIMENOrdering Facility: [facility] Address: [address] [place] [address] Result Comment: Inte rpretation: <50.0 ug/g: Normal 50.0 ug/g - 120.0 ug/g: Borderline elevated. Re-evaluation in 4-6 weeks is recommended if clinically indicated. >120.0 ug/g: Elevated Performed By: #### 3 8445-3, 29074-2 ####[facility] [id number] [address] [place] CALPROTECTIN, FECAL QUANTITATIVE 5120 ug/g High <50 [facility] Comment on above: Order Comment: Speci men Type: STOOL SPECIMENOrdering Facility: [facility] Address: [address] [place] [address] Performed By: #### 3 8445-3, 02534-3 ####[facility] [id number] [address] [place] THERAPY NTon 08-11-2024 THERAPY NT HNO ID: [id number] Author: ALKA SHEPPARD, SAROJ Service: ? Author Type: Physical Therapist Type: Therapy (PT/OT/Speech/Resp) Filed: 08/11/2024 12:25 Note Text: Program_ID:[id number] Access Code: [email or web address] URL: [email or web address] Date: 08-11-2024 Prepared By: Alka Sheppard Program Notes Exercises - Supine Diaphragmatic Breathing with Pelvic Floor Lengthening - 2 x daily - 7 x weekly - sets - 10 reps - Diaphragmatic Breathing in Child's Pose with Pelvic Floor Relaxation - 1-2 x daily - 7 x weekly - 2 sets - reps - Supine Lower Trunk Rotation - 1-2 x daily - 7 x weekly - sets - 10 reps - Hip Flexor Stretch on Step - 1-2 x daily - 7 x weekly - 3 sets - reps - Static Prone on Elbows - 1-2 x daily - 7 x weekly - 3 sets - reps - Cat Cow to Child's Pose - 1 x daily - 7 x weekly - 3 sets - 10 reps - Seated Hamstring Stretch - 2 x daily - 7 x weekly - 3 sets - reps - Right Standing Lateral Shift Correction at Wall - Hold - 2 x daily - 7 x weekly - sets - 10 reps Patient Education - Get To Know Your Pelvic Floor- Female - cc Pelvic Floor - Constipation Massage - cc Pelvic Floor - Bladder Health AND Emptying Techniques - cc Pelvic Floor - Bowel Movement Education - cc Pelvic Floor - Winston Stool Chart - cc Pelvic Floor - Bowel Diary Normal [facility] CBC panel Auto (Bld)on 08-09 Erythrocyte distribution width (RBC) [Ratio] 11.9 % 11.5 - 15.0 % [facility] Hematocrit (Bld) [Volume fraction] 38.0 % 36.0 - 46.0 % [facility] Hemoglobin (Bld) [Mass/Vol] 13.0 g/dL 11.5 - 15.5 g/dL [facility] Interpretation and review of laboratory results Abnormal [facility] MCH (RBC) [Entitic mass] 29.1 pg 26.0 - 34.0 pg [facility] MCHC (RBC) [Mass/Vol] 34.2 g/dL 30.5 - 36.0 g/dL [facility] MCV (RBC) [Entitic vol] 85.2 fL 80.0 - 100.0 fL [facility] Nucleated RBC (Bld) [#/Vol] NINF [facility] Platelet mean volume (Bld) [Entitic vol] 8.8 fL Low 9.0 - 12.7 fL [facility] Platelets (Bld) [#/Vol] 249 10*3/uL [facility] RBC (Bld) [#/Vol] 4.46 10*6/uL 3.90 - 5.2 0 m/uL [facility] WBC (Bld) [#/Vol] 5.16 10*3/uL [facility] Erythrocyte distribution width (RBC) [Ratio] 11.9 % Normal 11.5-15.0 [facility] Comment on above: Order Comment: Speci men Type: BLOOD SPECIMENOrdering Facility: [facility] Address: [address] [place] [address] Performed By: #### 5 8410-2 ####[facility] [id number] [place] [address] [place] Hematocrit (Bld) [Volume fraction] 38.0 % Normal 36.0-46.0 [facility] Comment on above: Order Comment: Speci men Type: BLOOD SPECIMENOrdering Facility: [facility] Address: [address] [place] [address] Performed By: #### 5 8410-2 ####[facility] [id number] [place] [address] [place] Hemoglobin (Bld) [Mass/Vol] 13.0 g/dL Normal 11.5-15.5 [facility] Comment on above: Order Comment: Speci men Type: BLOOD SPECIMENOrdering Facility: [facility] Address: [address] [place] [address] Performed By: #### 5 8410-2 ####[facility] [id number] [place] [address] [place] MCH (RBC) [Entitic mass] 29.1 pg Normal 26.0-34.0 [facility] Comment on above: Order Comment: Speci men Type: BLOOD SPECIMENOrdering Facility: [facility] Address: [address] [place] [address] Performed By: #### 5 8410-2 ####[facility] [id number] [place] [address] [place] MCHC (RBC) [Mass/Vol] 34.2 g/dL Normal 30.5-36.0 [facility] Comment on above: Order Comment: Speci men Type: BLOOD SPECIMENOrdering Facility: [facility] Address: [address] [place] [address] Performed By: #### 5 8410-2 ####[facility] [id number] [place] [address] [place] MCV (RBC) [Entitic vol] 85.2 fL Normal 80.0-100.0 [facility] Comment on above: Order Comment: Speci men Type: BLOOD SPECIMENOrdering Facility: [facility] Address: [address] [place] [address] Performed By: #### 5 8410-2 ####[facility] [id number] [place] [address] [place] Nucleated RBC (Bld) [#/Vol] 10*3/uL Normal <0.01 [facility] Comment on above: Order Comment: Speci men Type: BLOOD SPECIMENOrdering Facility: [facility] Address: [address] [place] [address] Performed By: #### 5 8410-2 ####[facility] [id number] [place] [address] [place] Platelet mean volume (Bld) [Entitic vol] 8.8 fL Low 9.0-12.7 [facility] Comment on above: Order Comment: Speci men Type: BLOOD SPECIMENOrdering Facility: [facility] Address: [address] [place] [address] Performed By: #### 5 8410-2 ####[facility] [id number] [place] [address] [place] Platelets (Bld) [#/Vol] 249 10*3/uL Normal 150-400 [facility] Comment on above: Order Comment: Speci men Type: BLOOD SPECIMENOrdering Facility: [facility] Address: [address] [place] [address] Performed By: #### 5 8410-2 ####[facility] [id number] [place] [address] [place] RBC (Bld) [#/Vol] 4.46 10*6/uL Normal 3.90-5.20 [facility] Comment on above: Order Comment: Speci men Type: BLOOD SPECIMENOrdering Facility: [facility] Address: [address] [place] [address] Performed By: #### 5 8410-2 ####[facility] [id number] [place] [address] [place] WBC (Bld) [#/Vol] 5.16 10*3/uL Normal 3.70-11.00 [facility] Comment on above: Order Comment: Speci men Type: BLOOD SPECIMENOrdering Facility: [facility] Address: [address] [place] [address] Performed By: #### 5 8410-2 ####[facility] [id number] [facility] CERVANTESCOMM[facility] [address]CAOZASORICHARD [address] [id number] [facility] [place] CNOVon 08-09-2024 CNOV Office Visit (LUIS ) GISELA TURNER ([id number]) 1970 F Date Time Provider Department 08/09/24 3:00 PM ROSIE GALLOWAY During your visit today, we recorded the following information about you: Weight Height 58.1 kg 1.6 m Rosie Galloway PA-C 08/09/2024 4:09 PM Signed [facility] Follow-up Chief complaint: blood in stool HPI: Gisela Turner is a 54 year old female with a history of constipation that I have been following. She has been following with PFPT. Her PT reached out to me in regards to blood in her stool. I recommended an in person evaluation. Onset: -About a month -On FODMAP diet, went back to normal foods -But then went back to crampy, diarrhea, blood Lumps/lesions near the anus: no Tissue/hemorrhoid prolapsing from anus: no Rectal pain: no Rectal bleeding: - sometimes bright red, sometimes dark - every bowel movement Attempted txs: Sitz baths: no HC: no OTC: prep H BMs: Frequency: daily of some sort, sometimes several times Consistency: sometimes loose, sometimes hard Laxatives/bowel regimen: no Straining during BMs: sometimes Abdomen: -Feels like things get stuck in LLQ -Crampy like a menstral cycle N/V/F/C: once in a while will get nauseated Overall getting better/worse/staying the same: - bleeding: a teeny bit better - constipation/bowel movements: more gas lately , runny lately with blood Updates since last visit ( new scopes, surgeries, deliveries, etc.): - going to PFPT - didn't feel like she was making progress Internal exam helps the most Physical Exam: 08/09/24 1457 Weight: 58.1 kg (128 lb) Height: 160 cm (5' 3) General - awake, alert, no acute distress Anorectal: Perianal skin is intact. No erythema, induration or excoriation. No fissure, fistula or external hemorrhoids. Digital Rectal Exam: Anus: closed Resting tone: HIGH Squeeze tone: WEAK Valsalva: poor relaxation Anoscopy: The patient was placed in left lateral position. After digital exam with a lubricated finger, the scope was easily inserted. Mildly inflamed internal hemorrhoids noted. Mainly circumferentially inflamed anal mucosa. Anoscopy completed. Ships Equipment Engineer present: Yes, Jodi Zarate The sensitive examination was discussed with the Patient or Patient's Authorized Enterprise Resource Planner. As applicable, any other physician, advance practice provider, medical student, or other health professional student that will be observing or involved in the sensitive examination for educational or training purposes was discussed with the Patient or Authorized Enterprise Resource Planner. The Patient or Authorized Enterprise Resource Planner has agreed to proceed with the sensitive examination. (Sensitive examination includes inspection and/or palpation of the breasts, pelvis, prostate and anorectal regions) Assessment Medical Decision Making: Assessment AND Diagnosis: Gisela Turner is a patient I have been following for constipation. She has been in PFPT. She recently introduced all foods back after being on a low FODMAP diet. Since then she has been having diarrhea and rectal bleeding. On exam her hemorrhoids are not too impressive. She does however have a fairly inflamed anal canal. We discussed this could be for many reasons like inflammatory bowel disease, diarrhea, straining, etc. We will get some lab work done. We also will try some hydrocortisone to see if it helps. Lastly, I will reach out to Dr. Ferreira to see her thoughts on things. Data Reviewed: Tests AND Documents Reviewed/ordered: Review of prior notes from [facility], GI, PT Review of Procedures / Tests: Colonoscopy I have independently interpreted: none I have discussed Gisela Turner 's treatment plan and/or results with patient. Treatment plan: - CBC, iron and TIBC, CRP, fecal michael, c diff - HC suppositories BID - sitz baths - will reach out to Dr. Ferreira to see her thoughts on plan - contact with questions/concerns Rosie Galloway PA-C I spent a total of 35 minutes on the date of the service which included preparing to see the patient, [id number] patient care, completing clinical documentation, obtaining and/or reviewing separately obtained history, performing a medically appropriate examination, counseling and educating the patient/family/caregive r, ordering medications, tests, or procedures, and communicating with other HCPs (not separately reported). Risk of morbidity, mortality and/or complications of treatment plan: moderate Rosie Galloway PA-C 08/09/2024 3:29 PM Addendum - I noticed inflammation in your anal canal today, this could be due to for a variety of reasons - We will get some lab work and stool tests today - warms baths daily - I will reach out to Dr. Ferreira for her thoughts on things - hydrocortisone suppositories twice daily Referring Provider: ROSIE GALLOWAY [[id number] (more content not included)... Normal [facility] CRP SerPl-mCncon 08-09-2024 CRP [Mass/Vol] mg/L Normal <0.9 [facility] Comment on above: Order Comment: Speci men Type: BLOOD SPECIMENOrdering Facility: [facility] Address: [address] [place] [address] Performed By: #### 1 988-5, 10517-8 ####[facility] [id number] [place] [address] [place] Iron and Iron binding capaci ty panelon 08-09-2024 Iron [Mass/Vol] 53 ug/dL Normal 41-186 [facility] Comment on above: Order Comment: Speci men Type: BLOOD SPECIMENOrdering Facility: [facility] Address: [address] [place] [address] Performed By: #### 1 988-5, 89502-2 ####[facility] [id number] [place] [address] [place] Iron binding capacity [Mass/Vol] 322 ug/dL Normal 232-386 [facility] Comment on above: Order Comment: Speci men Type: BLOOD SPECIMENOrdering Facility: [facility] Address: [address] [place] [address] Performed By: #### 1 988-5, 29940-8 ####[facility] [id number] [place] [address] [place] Iron/TIBC [Molar ratio] 16.5 % Normal 15.0-57.0 [facility] Comment on above: Order Comment: Speci men Type: BLOOD SPECIMENOrdering Facility: [facility] Address: [address] [place] [address] Performed By: #### 1 988-5, 28362-0 ####[facility] [id number] [address] [place] CNTHERAPYon 07-28-2024 CNTHERAPY OT/PT/Speech Visit (AKPTB) GISELA TURNER ([id number]) 1970 Date Time Provider Department 07/28/24 11:45 AM ALKA SHEPPARD Date Time Provider Department Center 07/28/2024 11:45 AM [id number] SHEPPARD [facility] Reason for Visit: PT Progress Note [1596] Primary Visit Diagnosis:Muscular incoordination [R27.8] Other Visit Diagnosis:Constipation, unspecified constipation type [K59.00] Allergies As of Date: 07/28/2024 Noted Allergy Reaction AMOXICILLIN 11/25/2005 4 - Hives BACTRIM (SULFAMETHOXAZOLE) 11/13/2011 2 - Rash DIPHENHYDRAMINE 10/07/2018 14 - Other: See Comments GLUTEN FLOUR 10/21/2018 5 - Intolerance Comments: Pt reports migraines from flour MOXIFLOXACIN 06/04/2023 4 - Hives SEPTRA (SULFAMETHOXAZOLE-TRIME THO*11/25/2005 2 - Rash TRILEPTAL (OXCARBAZEPINE) 12/16/2005 ZOMIG (ZOLMITRIPTAN) 12/16/2005 ZYPREXA (OLANZAPINE) 12/16/2005 Date Reviewed: 06/17/2024 Reviewed by: Agustina Henderson MA - Fully Assessed Prescriptions as of 08/04/2024 - linaCLOtide (LINZESS) 72 mcg capsule Take 1 capsule by mouth once daily. Administer on an empty stomach. Swallow whole; DO NOT crush or chew. - estradiol (ESTRACE) 0.01 % (0.1 mg/gram) vaginal cream APPLY A PEA SIZED AMOUNT TO LOWER VAGINA AT BEDTIME TWICE WEEKLY. - atorvastatin (LIPITOR) 20 mg tablet - dicyclomine (BENTYL) 20 mg tablet - estradiol (ESTRACE) 2 mg tablet Take 1 tablet by mouth once daily. - aspirin, enteric coated (ASPIRIN, ENTERIC COATED) 81 mg EC tablet Take by mouth. - diclofenac, EC, (VOLTAREN) 50 mg EC tablet TAKE 1 TABLET BY MOUTH TWICE DAILY NEEDED for headache - ondansetron orally disintegrating (ZOFRAN ODT) 4 mg disintegrating tablet Ondansetron Ondansetron Active 4 MG EVERY 8 HOURS NEEDED January 04, 2020 3:16am 01-04-2020 [facility] ([id number]) - traZODone (DESYREL) 50 mg tablet traZODone Trazodone Active 50 MG AT BEDTIME January 03, 2020 10:35pm 01-03-2020 [facility] ([id number]) - QUEtiapine (SEROQUEL) 50 mg tablet Take 1 tablet by mouth daily at bedtime. - desvenlafaxine ER (PRISTIQ) 50 mg 24 hr tablet Take 1 tablet by mouth once daily. - lansoprazole (PREVACID) 30 mg capsule Take 30 mg by mouth once daily. - Dexlansoprazole (DEXILANT) 60 mg CpDM Take by mouth. - LAMOTRIGINE (LAMICTAL ORAL) Take by mouth once daily. 200 mg daily - buPROPion SR (WELLBUTRIN SR) 100 mg 12 hr tablet Take 1 tablet by mouth once daily. [employer] Developer: Therapy (PT/OT/Speech/Resp) ID: [id number] 07/28/2024 12:25 PM Author: ALKA SHEPPARD Signed by ALKA SHEPPARD PT on 07/28/2024 at 12:25 PM Document text: Program_ID:[id number] Access Code: [email or web address] URL: [email or web address]/ Date: 07-28-2024 Prepared By: Alka Sheppard Program Notes Exercises - Supine Diaphragmatic Breathing with Pelvic Floor Lengthening - 2 x daily - 7 x weekly - sets - 10 reps - Diaphragmatic Breathing in Child's Pose with Pelvic Floor Relaxation - 1-2 x daily - 7 x weekly - 2 sets - reps - Supine Lower Trunk Rotation - 1-2 x daily - 7 x weekly - sets - 10 reps - Hip Flexor Stretch on Step - 1-2 x daily - 7 x weekly - 3 sets - reps - Static Prone on Elbows - 1-2 x daily - 7 x weekly - 3 sets - reps - Cat Cow to Child's Pose - 1 x daily - 7 x weekly - 3 sets - 10 reps - Seated Hamstring Stretch - 2 x daily - 7 x weekly - 3 sets - reps Patient Education - Get To Know Your Pelvic Floor- Female - cc Pelvic Floor - Constipation Massage - cc Pelvic Floor - Bladder Health AND Emptying Techniques - cc Pelvic Floor - Bowel Movement Education - cc Pelvic Floor - Winston Stool Chart - cc Pelvic Floor - Bowel Diary Normal [facility] THERAPY NTon 07-28-2024 THERAPY NT HNO ID: [id number] Author: ALKA SHEPPARD PT Service: ? Author Type: Physical Therapist Type: Therapy (PT/OT/Speech/Resp) Filed: 07/28/2024 12:25 Note Text: Program_ID:[id number] Access Code: [email or web address] URL: [email or web address] Date: 07-28-2024 Prepared By: Alka Sheppard Program Notes Exercises - Supine Diaphragmatic Breathing with Pelvic Floor Lengthening - 2 x daily - 7 x weekly - sets - 10 reps - Diaphragmatic Breathing in Child's Pose with Pelvic Floor Relaxation - 1-2 x daily - 7 x weekly - 2 sets - reps - Supine Lower Trunk Rotation - 1-2 x daily - 7 x weekly - sets - 10 reps - Hip Flexor Stretch on Step - 1-2 x daily - 7 x weekly - 3 sets - reps - Static Prone on Elbows - 1-2 x daily - 7 x weekly - 3 sets - reps - Cat Cow to Child's Pose - 1 x daily - 7 x weekly - 3 sets - 10 reps - Seated Hamstring Stretch - 2 x daily - 7 x weekly - 3 sets - reps Patient Education - Get To Know Your Pelvic Floor- Female - cc Pelvic Floor - Constipation Massage - cc Pelvic Floor - Bladder Health AND Emptying Techniques - cc Pelvic Floor - Bowel Movement Education - cc Pelvic Floor - Winston Stool Chart - cc Pelvic Floor - Bowel Diary Normal [facility] EGD Study observation Narrat iveon 02-20-2024 [facility] Flexible sigmoidoscopy study on 02-20-2024 [facility] CBC W Auto Differential pane l (Bld)on 02-09-2024 Basophils (Bld) [#/Vol] 0.05 10*3/uL <0.11 k/uL [facility] Basophils/100 WBC (Bld) 1.1 % [facility] Differential cell count method Nom (Bld) Auto [facility] Eosinophils (Bld) [#/Vol] 0.13 10*3/uL <0.46 k/uL [facility] Eosinophils/100 WBC (Bld) 2.8 % [facility] Erythrocyte distribution width (RBC) [Ratio] 12.2 % 11.5 - 15.0 % [facility] Hematocrit (Bld) [Volume fraction] 40.5 % 36.0 - 46.0 % [facility] Hemoglobin (Bld) [Mass/Vol] 13.4 g/dL 11.5 - 15.5 g/dL [facility] Immature granulocytes (Bld) [#/Vol] <0.10 k/uL [facility] Immature granulocytes/100 WBC (Bld) 0.2 % [facility] Lymphocytes (Bld) [#/Vol] 2.40 10*3/uL 1.00 - 4.00 k/uL [facility] Lymphocytes/100 WBC (Bld) 51.6 % [facility] MCH (RBC) [Entitic mass] 28.5 pg 26.0 - 34.0 pg [facility] MCHC (RBC) [Mass/Vol] 33.1 g/dL 30.5 - 36.0 g/dL [facility] MCV (RBC) [Entitic vol] 86.0 fL 80.0 - 100.0 fL [facility] Monocytes (Bld) [#/Vol] 0.48 10*3/uL <0.87 k/uL [facility] Monocytes/100 WBC (Bld) 10.3 % [facility] Neutrophils (Bld) [#/Vol] 1.58 10*3/uL 1.45 - 7.50 k/uL [facility] Neutrophils/100 WBC (Bld) 34.0 % [facility] Nucleated RBC (Bld) [#/Vol] <0.01 k/uL [facility] Nucleated RBC/100 WBC (Bld) [Ratio] 0.0 /100 WBC [facility] Platelet mean volume (Bld) [Entitic vol] 8.7 fL Low 9.0 - 12.7 fL [facility] Platelets (Bld) [#/Vol] 252 10*3/uL 150 - 400 k/uL [facility] RBC (Bld) [#/Vol] 4.71 10*6/uL 3.90 - 5.2 0 m/uL [facility] WBC (Bld) [#/Vol] 4.65 10*3/uL 3.70 - 11. 00 k/uL [facility] Comprehensive metabolic 2000 panelon 02-09-2024 Albumin [Mass/Vol] 4.4 g/dL 3.9 - 4.9 g/dL [facility] ALP [Catalytic activity/Vol] 116 U/L 34 - 123 U/L [facility] ALT [Catalytic activity/Vol] 26 U/L 7 - 38 U/L [facility] Anion gap [Moles/Vol] 9 mmol/L 9 - 18 mmol/L [facility] AST [Catalytic activity/Vol] 28 U/L 13 - 35 U/L [facility] Bilirubin [Mass/Vol] 0.4 mg/dL 0.2 - 1 .3 mg/dL [facility] Calcium [Mass/Vol] 9.7 mg/dL 8.5 - 10. 2 mg/dL [facility] Chloride [Moles/Vol] 103 mmol/L 97 - 10 5 mmol/L [facility] CO2 [Moles/Vol] 29 mmol/L 22 - 30 mmol/L [facility] Creatinine [Mass/Vol] 0.75 mg/dL 0.58 - 0.96 mg/dL [facility] Estimated Glomerular Filtration Rate 95 mL/min/1.73m >=60 mL/min/1.73m [facility] Glucose [Mass/Vol] 85 mg/dL 74 - 99 mg/dL [facility] Potassium [Moles/Vol] 4.8 mmol/L 3.7 - 5.1 mmol/L [facility] Protein [Mass/Vol] 7.4 g/dL 6.3 - 8.0 g/dL [facility] Sodium [Moles/Vol] 141 mmol/L 136 - 144 mmol/L [facility] Urea nitrogen [Mass/Vol] 13 mg/dL 7 - 21 mg/dL [facility] Iron and Iron binding capaci ty panelon 02-09-2024 Iron [Mass/Vol] 58 ug/dL 41 - 186 ug/dL [facility] Iron binding capacity [Mass/Vol] 364 ug/dL 232 - 386 ug/dL [facility] Iron/TIBC [Molar ratio] 15.9 % 15.0 - 57.0 % [facility] MAGNESIUM Don 02-09-2024 Magnesium [Mass/Vol] 2.0 mg/dL 1.7 - 2 .3 mg/dL [facility] PHOSPHORUS INORGANICon 02-08 Phosphate [Mass/Vol] 3.8 mg/dL 2.7 - 4 .8 mg/dL [facility] PREALBUMIN BLDon 02-09-2024 Prealbumin [Mass/Vol] 21 mg/dL 17 - 36 mg/dL [facility] VITAMIN D 25 HYDROXYon 02-08 25-hydroxyvitamin D3 [Mass/Vol] 46.3 ng/mL 31.0 - 80.0 ng/mL [facility] XR Abdomen Supine and Uprigh ton 02-09-2024 [facility] Absolute lymphocyte countOrd ered By: Hussain Bhatia on 12-12-2023 Lymphocytes Auto (Unsp spec) [#/Vol] 2.48 10*3/uL 0.83-4.51 [facility] Automated lymphocyte count a s percentage of total leukocytesOrdered By: Hussain Bhatia on 12-12-2023 Lymphocytes/100 WBC Auto (Unsp spec) 52.9 % 19-41 [facility] Basophil percentageOrdered B y: Hussain Bhatia on 12-12-2023 Cholesterol [Mass/Vol] 177 mg/dL <200 [facility] Comment on above: <200 mg/dL Desirable 200-240 mg/dL Borderline >240 mg/dL High Risk Triglyceride [Mass/Vol] 94 mg/dL <199 [facility] Comment on above: The drugs N-Acetylcy steine and Metamizole may falsely depress this assay.Serum Triglycerides Reference Interval Normal <150 mg/dL Borderline high 150 - 199 mg/dL High 200 - 499 mg/dL Very High > or = 500 mg/dL Basophils/100 WBC (Bld) 1.3 % 0-1 [facility] Bilirubin [Mass/Vol] 0.60 mg/dL 0.20-1.00 [facility] Comment on above: For patients on eltr ombopag therapy, use of Dimension Sparks TBIL is not recommended. Chloride [Moles/Vol] 105 mmol/L 98-107 [facility] Eosinophils/100 WBC (Bld) 2.6 % 0-5 [facility] Glucose [Mass/Vol] 123 mg/dL 74-106 [facility] Comment on above: Fasting Glucose resu lt from 100 to 125 mg/dL suggests IMPAIRED HOMEOSTASIS per A.D.A. criteria. Hemoglobin (Bld) [Mass/Vol] 13.2 g/dL 12.0-15.0 [facility] Monocytes/100 WBC (Bld) 7.9 % 0-10 [facility] Neutrophils (Bld) [#/Vol] 1.7 10*3/uL 2.0-7.7 [facility] Neutrophils/100 WBC (Bld) 35.3 % 47-70 [facility] Potassium [Moles/Vol] 4.3 mmol/L 3.5-5.1 [facility] Protein [Mass/Vol] 7.7 g/dL 6.4-8.2 [facility] Sodium [Moles/Vol] 136 mmol/L 136-145 [facility] WBC (Bld) [#/Vol] 4.7 10*3/uL 4.4-11.0 [facility] Determination of erythrocyte mean corpuscular volume (MCV)Ordered By: Hussain Bhatia on 12-12-2023 MCV (RBC) [Entitic vol] 84.9 fL 81-99 [facility] Erythrocyte distribution wid th ratioOrdered By: Hussain Bhatia on 12-12-2023 Erythrocyte distribution width (RBC) [Ratio] 11.8 % 11.6-14.6 [facility] Erythrocyte distribution wid th standard deviationOrdered By: Hussain Bhatia on 12-12-2023 Erythrocyte distribution width (RBC) [Entitic vol] 35.7 fL 35.1-43.9 [facility] Hematocrit Auto (Bld) [Volum e fraction]Ordered By: Hussain Bhatia on 12-12-2023 Hematocrit (Bld) [Volume fraction] 40.0 % 37-47 [facility] High density lipoprotein (HD L) measurementOrdered By: Hussain Bhatia on 12-12-2023 Cholesterol in HDL (Body fld) [Mass/Vol] 82 mg/dL >40 [facility] Comment on above: The drugs N-Acetylcy steine and Metamizole may falsely depress this assay. Reference Range HDL <40 mg/dL Low HDL Cholesterol HDL >or= 60 mg/dL High HDL Cholesterol Immature granulocytes/100 WB C Auto (Bld)Ordered By: Hussain Bhatia on 12-12-2023 Immature granulocytes/100 WBC (Bld) 0.000 % 0.0-0.9 [facility] Comment on above: IG% - Immature Granu locytes (promyelocytes, myelocytes and metamyelocytes) > 1% indicates that a LEFT SHIFT is Present. International normalized rat io (INR) calculationOrdered By: Hussain Bhatia on 12-12-2023 INR Coag (PPP) [Relative time] 1.0 {INR} [facility] Laboratory - Chemistry and C hemistry - challengeOrdered By: Hussain Bhatia on 12-12-2023 Albumin/Globulin [Mass ratio] 0.9 {ratio} 0.9-2.4 [facility] ALP [Catalytic activity/Vol] 106 U/L 45-117 [facility] ALT [Catalytic activity/Vol] 40 U/L 13-56 [facility] Amylase [Catalytic activity/Vol] 19 U/L 5-55 [facility] CO2 [Moles/Vol] 31.0 mmol/L 21.0-32.0 [facility] Globulin (S) [Mass/Vol] 4.1 g/dL 2.2-4.2 [facility] Urea nitrogen/Creatinine [Mass ratio] 15.7 mg/mg 10-20 [facility] Laboratory - CoagulationOrde red By: Hussain Bhatia on 12-12-2023 PT Coag (PPP) [Time] 12.8 s 11.7-14.9 [facility] Laboratory - Hematology and Cell countsOrdered By: Hussain Bhatia on 12-12-2023 MCH (RBC) [Entitic mass] 28.0 pg 27.0-32.0 [facility] MCHC (RBC) [Mass/Vol] 33.0 g/dL 32-36 [facility] Nucleated RBC/100 WBC (Bld) [Ratio] 0 % 0-5 [facility] Platelets (Bld) [#/Vol] 294 10*3/uL 150-450 [facility] Low density lipoprotein (LDL ) cholesterol measurementOrdered By: Hussain Bhatia on 12-12-2023 Cholesterol in LDL (Body fld) [Moles/Vol] 76 mg/dL 0-130 [facility] No Panel InformationOrdered By: Hussain Bhatia on 12-12-2023 Estimated GFR (MDRD) Amer 93 mL/min >60 [facility] Comment on above: GFR Calc Estimated GFR (MDRD) Non-Af Amer 77 mL/min >60 [facility] Comment on above: Non- GFR Calc Platelet mean volume Myron-Ec ker (Bld) [Entitic vol]Ordered By: Hussain Bhatia on 12-12-2023 Platelet mean volume (Bld) [Entitic vol] 8.5 fL 6.2-12.0 [facility] RBC Auto (Bld) [#/Vol]Ordere d By: Hussain Bhatia on 12-12-2023 RBC (Bld) [#/Vol] 4.71 10*6/uL 4.2-5.4 [facility] Serum or plasma calcium cassidy urement (mass/volume)Ordered By: Hussain Bhatia on 12-12-2023 Calcium [Mass/Vol] 9.1 mg/dL 8.5-10.1 [facility] Serum or plasma creatinine m easurement (mass/volume)Ordered By: Hussain Bhatia on 12-12-2023 Creatinine [Mass/Vol] 0.83 mg/dL 0.55-1.02 [facility] Comment on above: The validity of the calculated GFR & GFRAA in patients over 70 years has not been determined. Clinical correlation is essential. Serum or plasma urea nitroge n measurement (mass/volume)Ordered By: Hussain Bhatia on 12-12-2023 Urea nitrogen [Mass/Vol] 13 mg/dL 7-18 [facility] Thin prep Papanicolaou smear with manual screeningOrdered By: Hussain Bhatia on 12-12-2023 Thin prep Papanicolaou smear with manual screening 3.6 g/dL 3.2-5.0 [facility] Thin prep Papanicolaou smear with manual screening 26 U/L 15-37 [facility] Thin prep Papanicolaou smear with manual screening 0 5-15 [facility] Very low density lipoprotein (VLDL) cholesterol measurementOrdered By: Hussain Bhatia on 12-12-2023 Cholesterol in VLDL Calc [Moles/Vol] 19 mg/dL 5-40 [facility] Whole blood hemoglobin A1c/t otal hemoglobin ratio (mass fraction)Ordered By: Hussain Bhatia on 12-12-2023 HbA1c (Bld) [Mass fraction] 5.4 % 3.8-5.6 [facility] Comment on above: Normal < 5.7 % Predi abetic 5.7 - 6.4 % Diabetic >or= 6.5 % Please note range changes. Absolute lymphocyte countOrd ered By: Harpal Pollack on 10-30-2023 Lymphocytes Auto (Unsp spec) [#/Vol] 2.53 10*3/uL 0.83-4.51 [facility] Basophil percentageOrdered B y: Harpal Pollack on 10-30-2023 Basophils/100 WBC (Bld) 1.3 % 0-1 [facility] Bilirubin [Mass/Vol] 0.40 mg/dL 0.20-1.00 [facility] Comment on above: For patients on eltr ombopag therapy, use of Dimension Sparks TBIL is not recommended. Chloride [Moles/Vol] 102 mmol/L 98-107 [facility] Eosinophils/100 WBC (Bld) 2.8 % 0-5 [facility] Glucose [Mass/Vol] 135 mg/dL 74-106 [facility] Comment on above: Fasting Glucose resu lt greater than or equal to 126 mg/dL suggests DIABETES MELLITUS per A.D.A. criteria. Lactate [Moles/Vol] 1.5 mmol/L 0.4-2.0 [facility] Neutrophils (Bld) [#/Vol] 1.5 10*3/uL 2.0-7.7 [facility] Neutrophils/100 WBC (Bld) 31.9 % 47-70 [facility] Potassium [Moles/Vol] 3.8 mmol/L 3.5-5.1 [facility] Protein [Mass/Vol] 7.8 g/dL 6.4-8.2 [facility] Sodium [Moles/Vol] 138 mmol/L 136-145 [facility] WBC (Bld) [#/Vol] 4.6 10*3/uL 4.4-11.0 [facility] Basophil percentage 0-5 SEEN /hpf 0-5 [facility] Bilirubin Test strip Ql (U)O rdered By: Harpal Pollack on 10-30-2023 Bilirubin Ql (U) Negative Negative [facility] Blood erythrocytes count (nu mber/volume)Ordered By: Harpal Pollack on 10-30-2023 RBC (Bld) [#/Vol] 4.60 10*6/uL 4.2-5.4 [facility] Blood hemoglobin measurement (mass/volume)Ordered By: Harpal Pollack on 10-30-2023 Hemoglobin (Bld) [Mass/Vol] 13.0 g/dL 12.0-15.0 [facility] Blood lymphocytes/100 leukoc ytesOrdered By: Harpal Pollack on 10-30-2023 Lymphocytes/100 WBC (Bld) 55.1 % 19-41 [facility] Blood monocytes/100 leukocyt esOrdered By: Harpal Pollack on 10-30-2023 Monocytes/100 WBC (Bld) 8.7 % 0-10 [facility] Blood platelet mean volumeOr dered By: Harpal Pollack on 10-30-2023 Platelet mean volume (Bld) [Entitic vol] 8.6 fL 6.2-12.0 [facility] Determination of erythrocyte mean corpuscular volume (MCV)Ordered By: Harpal Pollack on 10-30-2023 MCV (RBC) [Entitic vol] 85.7 fL 81-99 [facility] Hematocrit Auto (Bld) [Volum e fraction]Ordered By: Harpal Pollack on 10-30-2023 Hematocrit (Bld) [Volume fraction] 39.4 % 37-47 [facility] Ketones Test strip Ql (U)Ord ered By: Harpal Pollack on 10-30-2023 Ketones Ql (U) Negative Negative [facility] Laboratory - Chemistry and C hemistry - challengeOrdered By: Harpal Pollack on 10-30-2023 ALP [Catalytic activity/Vol] 119 U/L 45-117 [facility] ALT [Catalytic activity/Vol] 35 U/L 13-56 [facility] CO2 [Moles/Vol] 31.0 mmol/L 21.0-32.0 [facility] Globulin (S) [Mass/Vol] 4.1 g/dL 2.2-4.2 [facility] Lipase [Catalytic activity/Vol] 27 U/L 13-75 [facility] Comment on above: Please note:LIPASE r evised reference range effective 23. New Lipase methodology. Expected to produce lower values than the previous assay method. NEW Reference Range: 13 - 75 U/L Urea nitrogen/Creatinine [Mass ratio] 14.0 mg/mg 10-20 [facility] - Hematology and Cell countsOrdered By: Harpal Pollack on 10-30-2023 Erythrocyte distribution width (RBC) [Entitic vol] 36.3 fL 35.1-43.9 [facility] Erythrocyte distribution width (RBC) [Ratio] 11.8 % 11.6-14.6 [facility] Immature granulocytes/100 WBC (Bld) 0.200 % 0.0-0.9 [facility] Comment on above: IG% - Immature Granu locytes (promyelocytes, myelocytes and metamyelocytes) > 1% indicates that a LEFT SHIFT is Present. MCH (RBC) [Entitic mass] 28.3 pg 27.0-32.0 [facility] Nucleated RBC/100 WBC (Bld) [Ratio] 0 % 0-5 [facility] MCHC Auto (RBC) [Mass/Vol]Or dered By: Harpal Pollack on 10-30-2023 MCHC (RBC) [Mass/Vol] 33.0 g/dL 32-36 [facility] Mucus LM Ql (Urine sed)Order ed By: Harpal Pollack on 10-30-2023 Mucus Ql (Urine sed) 0 SEEN /hpf [facility] Nitrite Test strip Ql (U)Ord ered By: Harpal Pollack on 10-30-2023 Nitrite Ql (U) Negative Negative [facility] No Panel InformationOrdered By: Harpal Pollack on 10-30-2023 Estimated Creatinine Clearance Calc 68.13 ml/min [facility] Estimated GFR (MDRD) Amer 98 mL/min >60 [facility] Comment on above: GFR Calc Estimated GFR (MDRD) Non-Af Amer 81 mL/min >60 [facility] Comment on above: Non- GFR Calc Platelets bldOrdered By: Marizol Pollack on 10-30-2023 Platelets (Bld) [#/Vol] 260 10*3/uL 150-450 [facility] Protein Test strip Ql (U)Ord ered By: Harpal Pollack on 10-30-2023 Protein Ql (U) Negative Negative [facility] Serum or plasma albumin cassidy urement (mass/volume)Ordered By: Harpal Pollack on 10-30-2023 Albumin [Mass/Vol] 3.7 g/dL 3.2-5.0 [facility] Serum or plasma albumin/glob ulin mass ratioOrdered By: Harpal Pollack on 10-30-2023 Albumin/Globulin [Mass ratio] 0.9 {ratio} 0.9-2.4 [facility] Serum or plasma calcium cassidy urement (mass/volume)Ordered By: Harpal Pollack on 10-30-2023 Calcium [Mass/Vol] 8.6 mg/dL 8.5-10.1 [facility] Serum or plasma creatinine m easurement (mass/volume)Ordered By: Harpal Pollack on 10-30-2023 Creatinine [Mass/Vol] 0.79 mg/dL 0.55-1.02 [facility] Comment on above: The validity of the calculated GFR & GFRAA in patients over 70 years has not been determined. Clinical correlation is essential. Serum or plasma urea nitroge n measurement (mass/volume)Ordered By: Harpal Pollack on 10-30-2023 Urea nitrogen [Mass/Vol] 11 mg/dL 7-18 [facility] Squamous epithelial cells de tection in urine sediment by light microscopyOrdered By: Harpal Pollack on 10-30-2023 Epithelial cells.squamous LM Ql (Urine sed) 5-10 SEEN /hpf 5-10 [facility] Thin prep Papanicolaou smear with manual screeningOrdered By: Harpal Pollack on 10-30-2023 Thin prep Papanicolaou smear with manual screening 25 U/L 15-37 [facility] Thin prep Papanicolaou smear with manual screening 5 5-15 [facility] Urine blood detectionOrdered By: Harpal Pollack on 10-30-2023 RBC Ql (U) Negative Negative [facility] RBC Ql (U) 0-5 SEEN /hpf 0-5 [facility] Urine clarityOrdered By: Marizol Pollack on 10-30-2023 Clarity (U) Clear Clear [facility] Urine color determinationOrd ered By: Harpal Pollack on 10-30-2023 Color (U) Yellow Yellow [facility] Urine glucose detectionOrder ed By: Harpal Pollack on 10-30-2023 Glucose Ql (U) Normal mg/dl Normal [facility] Urine leukocyte esterase det ection by dipstickOrdered By: Harpal Pollack on 10-30-2023 Leukocyte esterase Test strip Ql (U) Negative Negative [facility] Urine pHOrdered By: Harpal good on 10-30-2023 pH (U) 6.0 [pH] 5.0 - 8.0 [facility] Urine sediment bacteria coun t by microscopy (number/high power field)Ordered By: Harpal Pollack on 10-30-2023 Bacteria LM.HPF (Urine sed) [#/Area] 0 /[HPF] None Seen [facility] Urine specific gravity measu rementOrdered By: Harpal Pollack on 10-30-2023 Specific gravity (U) [Rel density] 1.015 1.002-1.030 [facility] Urobilinogen Auto test strip Ql (U)Ordered By: Harpal Pollack on 10-30-2023 Urobilinogen Ql (U) Normal mg/dl Normal [facility] Basophil percentageOrdered B y: America Pettit on 10-29-2023 Chloride [Moles/Vol] 106 mmol/L 98-107 [facility] Glucose [Mass/Vol] 110 mg/dL 74-106 [facility] Comment on above: Fasting Glucose resu lt from 100 to 125 mg/dL suggests IMPAIRED HOMEOSTASIS per A.D.A. criteria. Potassium [Moles/Vol] 3.9 mmol/L 3.5-5.1 [facility] Sodium [Moles/Vol] 141 mmol/L 136-145 [facility] WBC (Bld) [#/Vol] 4.7 10*3/uL 4.4-11.0 [facility] Blood erythrocytes count (nu mber/volume)Ordered By: America Pettit on 10-29-2023 RBC (Bld) [#/Vol] 4.56 10*6/uL 4.2-5.4 [facility] Blood hemoglobin measurement (mass/volume)Ordered By: America Pettit on 10-29-2023 Hemoglobin (Bld) [Mass/Vol] 13.0 g/dL 12.0-15.0 [facility] Blood platelet mean volumeOr dered By: America Pettit on 10-29-2023 Platelet mean volume (Bld) [Entitic vol] 8.8 fL 6.2-12.0 [facility] Determination of erythrocyte mean corpuscular volume (MCV)Ordered By: America Pettit on 10-29-2023 MCV (RBC) [Entitic vol] 87.5 fL 81-99 [facility] Hematocrit Auto (Bld) [Volum e fraction]Ordered By: America Pettit on 10-29-2023 Hematocrit (Bld) [Volume fraction] 39.9 % 37-47 [facility] - Chemistry and C hemistry - challengeOrdered By: America Pettit on 10-29-2023 CO2 [Moles/Vol] 29.0 mmol/L 21.0-32.0 [facility] Urea nitrogen/Creatinine [Mass ratio] 14.5 mg/mg 10-20 [facility] - Hematology and Cell countsOrdered By: America Pettit on 10-29-2023 Erythrocyte distribution width (RBC) [Entitic vol] 37.9 fL 35.1-43.9 [facility] Erythrocyte distribution width (RBC) [Ratio] 11.8 % 11.6-14.6 [facility] MCH (RBC) [Entitic mass] 28.5 pg 27.0-32.0 [facility] MCHC Auto (RBC) [Mass/Vol]Or dered By: America Pettit on 10-29-2023 MCHC (RBC) [Mass/Vol] 32.6 g/dL 32-36 [facility] No Panel InformationOrdered By: America Pettit on 10-29-2023 Estimated GFR (MDRD) Amer 93 mL/min >60 [facility] Comment on above: GFR Calc Estimated GFR (MDRD) Non-Af Amer 77 mL/min >60 [facility] Comment on above: Non- GFR Calc Platelets bldOrdered By: Bowen Pettit on 10-29-2023 Platelets (Bld) [#/Vol] 272 10*3/uL 150-450 [facility] Serum or plasma calcium cassidy urement (mass/volume)Ordered By: America Pettit on 10-29-2023 Calcium [Mass/Vol] 8.7 mg/dL 8.5-10.1 [facility] Serum or plasma creatinine m easurement (mass/volume)Ordered By: America Pettit on 10-29-2023 Creatinine [Mass/Vol] 0.82 mg/dL 0.55-1.02 [facility] Comment on above: The validity of the calculated GFR & GFRAA in patients over 70 years has not been determined. Clinical correlation is essential. Serum or plasma urea nitroge n measurement (mass/volume)Ordered By: America Pettit on 10-29-2023 Urea nitrogen [Mass/Vol] 12 mg/dL 7-18 [facility] Thin prep Papanicolaou smear with manual screeningOrdered By: America Pettit on 10-29-2023 Thin prep Papanicolaou smear with manual screening 6 5-15 [facility] Basophil percentageOrdered B y: Sumanth Krause on 10-28-2023 Bilirubin [Mass/Vol] 0.40 mg/dL 0.20-1.00 [facility] Comment on above: For patients on eltr ombopag therapy, use of Dimension Sparks TBIL is not recommended. Chloride [Moles/Vol] 103 mmol/L 98-107 [facility] Glucose [Mass/Vol] 119 mg/dL 74-106 [facility] Comment on above: Fasting Glucose resu lt from 100 to 125 mg/dL suggests IMPAIRED HOMEOSTASIS per A.D.A. criteria. Potassium [Moles/Vol] 4.2 mmol/L 3.5-5.1 [facility] Protein [Mass/Vol] 7.5 g/dL 6.4-8.2 [facility] Sodium [Moles/Vol] 139 mmol/L 136-145 [facility] - Chemistry and C hemistry - challengeOrdered By: Sumanth Krause on 10-28-2023 ALP [Catalytic activity/Vol] 113 U/L 45-117 [facility] ALT [Catalytic activity/Vol] 34 U/L 13-56 [facility] CO2 [Moles/Vol] 30.0 mmol/L 21.0-32.0 [facility] Globulin (S) [Mass/Vol] 3.7 g/dL 2.2-4.2 [facility] Urea nitrogen/Creatinine [Mass ratio] 16.3 mg/mg 10-20 [facility] No Panel InformationOrdered By: Sumanth Krause on 10-28-2023 Estimated GFR (MDRD) Amer 97 mL/min >60 [facility] Comment on above: GFR Calc Estimated GFR (MDRD) Non-Af Amer 80 mL/min >60 [facility] Comment on above: Non- GFR Calc Serum or plasma albumin cassidy urement (mass/volume)Ordered By: Sumanth Krause on 10-28-2023 Albumin [Mass/Vol] 3.8 g/dL 3.2-5.0 [facility] Serum or plasma albumin/glob ulin mass ratioOrdered By: Sumanth Krause on 10-28-2023 Albumin/Globulin [Mass ratio] 1.0 {ratio} 0.9-2.4 [facility] Serum or plasma calcium cassidy urement (mass/volume)Ordered By: Sumanth Krause on 10-28-2023 Calcium [Mass/Vol] 8.8 mg/dL 8.5-10.1 [facility] Serum or plasma creatinine m easurement (mass/volume)Ordered By: Sumanth Krause on 10-28-2023 Creatinine [Mass/Vol] 0.80 mg/dL 0.55-1.02 [facility] Comment on above: The validity of the calculated GFR & GFRAA in patients over 70 years has not been determined. Clinical correlation is essential. Serum or plasma urea nitroge n measurement (mass/volume)Ordered By: Sumanth Krause on 10-28-2023 Urea nitrogen [Mass/Vol] 13 mg/dL 7-18 [facility] Thin prep Papanicolaou smear with manual screeningOrdered By: Sumanth Krause on 10-28-2023 Thin prep Papanicolaou smear with manual screening 24 U/L 15-37 [facility] Thin prep Papanicolaou smear with manual screening 6 5-15 [facility] Whole blood hemoglobin A1c/t otal hemoglobin ratio (mass fraction)Ordered By: Sumanth Krause on 10-28-2023 HbA1c (Bld) [Mass fraction] 5.1 % 3.8-5.6 [facility] Comment on above: Normal < 5.7 % Predi abetic 5.7 - 6.4 % Diabetic >or= 6.5 % Please note range changes. Culture, urineOrdered By: Linda Krause on 08-16-2023 Bacteria identified Cx Nom (U) Positive [facility] Culture, urineOrdered By: Everett Franco on 08-06-2023 Bacteria identified Cx Nom (U) Culture exhibits no growth. [facility] Bacteria identified Cx Nom (U) Culture exhibits no growth. [facility] Basophil percentageOrdered B y: Sumanth Krause on 07-31-2023 Bilirubin [Mass/Vol] 0.60 mg/dL 0.20-1.00 [facility] Comment on above: For patients on eltr ombopag therapy, use of Dimension Sparks TBIL is not recommended. Chloride [Moles/Vol] 103 mmol/L 98-107 [facility] Glucose [Mass/Vol] 118 mg/dL 74-106 [facility] Comment on above: Fasting Glucose resu lt from 100 to 125 mg/dL suggests IMPAIRED HOMEOSTASIS per A.D.A. criteria. Potassium [Moles/Vol] 3.8 mmol/L 3.5-5.1 [facility] Protein [Mass/Vol] 7.6 g/dL 6.4-8.2 [facility] Sodium [Moles/Vol] 139 mmol/L 136-145 [facility] - Chemistry and C hemistry - challengeOrdered By: Sumanth Krause on 07-31-2023 ALP [Catalytic activity/Vol] 94 U/L 45-117 [facility] ALT [Catalytic activity/Vol] 24 U/L 13-56 [facility] CK [Catalytic activity/Vol] 54 U/L 26-192 [facility] CO2 [Moles/Vol] 28.0 mmol/L 21.0-32.0 [facility] Globulin (S) [Mass/Vol] 4.0 g/dL 2.2-4.2 [facility] Magnesium [Mass/Vol] 2.2 mg/dL 1.6-2.6 [facility] Urea nitrogen/Creatinine [Mass ratio] 18.9 mg/mg 10-20 [facility] No Panel InformationOrdered By: Sumanth Krause on 07-31-2023 Estimated GFR (MDRD) Amer 70 mL/min >60 [facility] Comment on above: GFR Calc Estimated GFR (MDRD) Non-Af Amer 58 mL/min >60 [facility] Comment on above: Non- GFR Calc Thyroid Stimulating Hormone (TSH) 0.78 uIU/mL 0.358-3.74 [facility] Serum or plasma albumin cassidy urement (mass/volume)Ordered By: Sumanth Kraues on 07-31-2023 Albumin [Mass/Vol] 3.6 g/dL 3.2-5.0 [facility] Serum or plasma albumin/glob ulin mass ratioOrdered By: Sumanth Krause on 07-31-2023 Albumin/Globulin [Mass ratio] 0.9 {ratio} 0.9-2.4 [facility] Serum or plasma calcium cassidy urement (mass/volume)Ordered By: Sumanth Krause on 07-31-2023 Calcium [Mass/Vol] 9.1 mg/dL 8.5-10.1 [facility] Serum or plasma creatinine m easurement (mass/volume)Ordered By: Sumanth Krause on 07-31-2023 Creatinine [Mass/Vol] 1.06 mg/dL 0.55-1.02 [facility] Comment on above: The validity of the calculated GFR & GFRAA in patients over 70 years has not been determined. Clinical correlation is essential. Serum or plasma ferritin rick surement (mass/volume)Ordered By: Sumanth Krause on 07-31-2023 Ferritin [Mass/Vol] 71 ng/mL 8-252 [facility] Serum or plasma urea nitroge n measurement (mass/volume)Ordered By: Sumanth Krause on 07-31-2023 Urea nitrogen [Mass/Vol] 20 mg/dL 7-18 [facility] Thin prep Papanicolaou smear with manual screeningOrdered By: Sumanth Krause on 07-31-2023 Thin prep Papanicolaou smear with manual screening 15 U/L 15-37 [facility] Thin prep Papanicolaou smear with manual screening 8 5-15 [facility] Absolute lymphocyte countOrd ered By: Shamir Sepulveda on 06-04-2023 Lymphocytes Auto (Unsp spec) [#/Vol] 2.21 10*3/uL 0.83-4.51 [facility] Basophil percentageOrdered B y: Shamir Sepulveda on 06-04-2023 Basophils/100 WBC (Bld) 0.5 % 0-1 [facility] Bilirubin [Mass/Vol] 0.40 mg/dL 0.20-1.00 [facility] Comment on above: For patients on eltr ombopag therapy, use of Dimension [place] TBIL is not recommended. Chloride [Moles/Vol] 105 mmol/L 98-107 [facility] Eosinophils/100 WBC (Bld) 5.4 % 0-5 [facility] Glucose [Mass/Vol] 129 mg/dL 74-106 [facility] Comment on above: Fasting Glucose resu lt greater than or equal to 126 mg/dL suggests DIABETES MELLITUS per A.D.A. criteria. Neutrophils (Bld) [#/Vol] 1.4 10*3/uL 2.0-7.7 [facility] Neutrophils/100 WBC (Bld) 33.6 % 47-70 [facility] Potassium [Moles/Vol] 4.0 mmol/L 3.5-5.1 [facility] Protein [Mass/Vol] 7.1 g/dL 6.4-8.2 [facility] Sodium [Moles/Vol] 138 mmol/L 136-145 [facility] WBC (Bld) [#/Vol] 4.3 10*3/uL 4.4-11.0 [facility] Blood erythrocytes count (nu mber/volume)Ordered By: Shamir Sepulveda on 06-04-2023 RBC (Bld) [#/Vol] 4.29 10*6/uL 4.2-5.4 [facility] Blood hemoglobin measurement (mass/volume)Ordered By: Shamir Sepulveda on 06-04-2023 Hemoglobin (Bld) [Mass/Vol] 12.5 g/dL 12.0-15.0 [facility] Blood lymphocytes/100 leukoc ytesOrdered By: Shamir Sepulveda on 06-04-2023 Lymphocytes/100 WBC (Bld) 52.0 % 19-41 [facility] Blood monocytes/100 leukocyt esOrdered By: Shamir Sepulveda on 06-04-2023 Monocytes/100 WBC (Bld) 8.5 % 0-10 [facility] Blood platelet mean volumeOr dered By: Shamir Sepulveda on 06-04-2023 Platelet mean volume (Bld) [Entitic vol] 8.8 fL 6.2-12.0 [facility] Determination of erythrocyte mean corpuscular volume (MCV)Ordered By: Shamir Sepulveda on 06-04-2023 MCV (RBC) [Entitic vol] 87.6 fL 81-99 [facility] Hematocrit Auto (Bld) [Volum e fraction]Ordered By: Shamir Sepulveda on 06-04-2023 Hematocrit (Bld) [Volume fraction] 37.6 % 37-47 [facility] - Chemistry and C hemistry - challengeOrdered By: Shamir Sepulveda on 06-04-2023 ALP [Catalytic activity/Vol] 77 U/L 45-117 [facility] ALT [Catalytic activity/Vol] 21 U/L 13-56 [facility] CO2 [Moles/Vol] 29.0 mmol/L 21.0-32.0 [facility] Globulin (S) [Mass/Vol] 3.9 g/dL 2.2-4.2 [facility] Lipase [Catalytic activity/Vol] 26 U/L 13-75 [facility] Comment on above: Please note:LIPASE r evised reference range effective 23. New Lipase methodology. Expected to produce lower values than the previous assay method. NEW Reference Range: 13 - 75 U/L Urea nitrogen/Creatinine [Mass ratio] 17.3 mg/mg 10-20 [facility] - Hematology and Cell countsOrdered By: Shamir Sepulveda on 06-04-2023 Erythrocyte distribution width (RBC) [Entitic vol] 39.1 fL 35.1-43.9 [facility] Erythrocyte distribution width (RBC) [Ratio] 12.1 % 11.6-14.6 [facility] Immature granulocytes/100 WBC (Bld) 0.000 % 0.0-0.9 [facility] Comment on above: IG% - Immature Granu locytes (promyelocytes, myelocytes and metamyelocytes) > 1% indicates that a LEFT SHIFT is Present. MCH (RBC) [Entitic mass] 29.1 pg 27.0-32.0 [facility] Nucleated RBC/100 WBC (Bld) [Ratio] 0 % 0-5 [facility] MCHC Auto (RBC) [Mass/Vol]Or dered By: Shamir Sepulveda on 06-04-2023 MCHC (RBC) [Mass/Vol] 33.2 g/dL 32-36 [facility] No Panel InformationOrdered By: Shamir Sepulveda on 06-04-2023 Estimated Creatinine Clearance Calc 62.57 ml/min [facility] Estimated GFR (MDRD) Amer 88 mL/min >60 [facility] Comment on above: GFR Calc Estimated GFR (MDRD) Non-Af Amer 73 mL/min >60 [facility] Comment on above: Non- GFR Calc Platelets bldOrdered By: Abbie Sepulveda on 06-04-2023 Platelets (Bld) [#/Vol] 246 10*3/uL 150-450 [facility] Serum or plasma albumin cassidy urement (mass/volume)Ordered By: Shamir Sepulvdea on 06-04-2023 Albumin [Mass/Vol] 3.2 g/dL 3.2-5.0 [facility] Serum or plasma albumin/glob ulin mass ratioOrdered By: Shamir Sepulveda on 06-04-2023 Albumin/Globulin [Mass ratio] 0.8 {ratio} 0.9-2.4 [facility] Serum or plasma calcium cassidy urement (mass/volume)Ordered By: Shamir Sepulveda on 06-04-2023 Calcium [Mass/Vol] 8.6 mg/dL 8.5-10.1 [facility] Serum or plasma creatinine m easurement (mass/volume)Ordered By: Shamir Sepulveda on 06-04-2023 Creatinine [Mass/Vol] 0.87 mg/dL 0.55-1.02 [facility] Comment on above: The validity of the calculated GFR & GFRAA in patients over 70 years has not been determined. Clinical correlation is essential. Serum or plasma urea nitroge n measurement (mass/volume)Ordered By: Shamir Sepulveda on 06-04-2023 Urea nitrogen [Mass/Vol] 15 mg/dL 7-18 [facility] Thin prep Papanicolaou smear with manual screeningOrdered By: Shamir Sepulveda on 06-04-2023 Thin prep Papanicolaou smear with manual screening 15 U/L 15-37 [facility] Thin prep Papanicolaou smear with manual screening 4 5-15 [facility] RENÉE SCREENING W TOMOon 12-19 [facility] Absolute lymphocyte countOrd ered By: Ovi Friend on 12-03-2022 Lymphocytes Auto (Unsp spec) [#/Vol] 2.73 10*3/uL 0.83-4.51 [facility] Basophil percentageOrdered B y: Ovi Friend on 12-03-2022 Amylase [Catalytic activity/Vol] 70 U/L 25-115 [facility] Basophils/100 WBC (Bld) 1.3 % 0-1 [facility] Bilirubin [Mass/Vol] 0.30 mg/dL 0.20-1.00 [facility] Comment on above: For patients on eltr ombopag therapy, use of Dimension [place] TBIL is not recommended. Chloride [Moles/Vol] 100 mmol/L 98-107 [facility] Eosinophils/100 WBC (Bld) 2.7 % 0-5 [facility] Glucose [Mass/Vol] 115 mg/dL 74-106 [facility] Comment on above: Fasting Glucose resu lt from 100 to 125 mg/dL suggests IMPAIRED HOMEOSTASIS per A.D.A. criteria. Neutrophils (Bld) [#/Vol] 1.4 10*3/uL 2.0-7.7 [facility] Neutrophils/100 WBC (Bld) 28.3 % 47-70 [facility] Potassium [Moles/Vol] 4.3 mmol/L 3.5-5.1 [facility] Protein [Mass/Vol] 7.7 g/dL 6.4-8.2 [facility] Sodium [Moles/Vol] 137 mmol/L 136-145 [facility] WBC (Bld) [#/Vol] 4.8 10*3/uL 4.4-11.0 [facility] Blood erythrocytes count (nu mber/volume)Ordered By: Ovi Rivera on 12-03-2022 RBC (Bld) [#/Vol] 4.52 10*6/uL 4.2-5.4 [facility] Blood hemoglobin measurement (mass/volume)Ordered By: Ovi Rivera on 12-03-2022 Hemoglobin (Bld) [Mass/Vol] 13.1 g/dL 12.0-15.0 [facility] Blood lymphocytes/100 leukoc ytesOrdered By: Ovi Rivera on 12-03-2022 Lymphocytes/100 WBC (Bld) 57.4 % 19-41 [facility] Blood monocytes/100 leukocyt esOrdered By: Ovi Rivera on 12-03-2022 Monocytes/100 WBC (Bld) 10.1 % 0-10 [facility] Blood platelet mean volumeOr dered By: Ovi Rivera on 12-03-2022 Platelet mean volume (Bld) [Entitic vol] 8.4 fL 6.2-12.0 [facility] Determination of erythrocyte mean corpuscular volume (MCV)Ordered By: Ovi Rivera on 12-03-2022 MCV (RBC) [Entitic vol] 87.4 fL 81-99 [facility] Hematocrit Auto (Bld) [Volum e fraction]Ordered By: Ovi Rivera on 12-03-2022 Hematocrit (Bld) [Volume fraction] 39.5 % 37-47 [facility] - Chemistry and C hemistry - challengeOrdered By: Ovi Rivera on 12-03-2022 ALP [Catalytic activity/Vol] 77 U/L 45-117 [facility] ALT [Catalytic activity/Vol] 19 U/L 13-56 [facility] CO2 [Moles/Vol] 31.0 mmol/L 21.0-32.0 [facility] Globulin (S) [Mass/Vol] 4.3 g/dL 2.2-4.2 [facility] Lipase [Catalytic activity/Vol] 308 U/L 73-393 [facility] Urea nitrogen/Creatinine [Mass ratio] 19.9 mg/mg 10-20 [facility] - Hematology and Cell countsOrdered By: Ovi Rivera on 12-03-2022 Erythrocyte distribution width (RBC) [Entitic vol] 38.3 fL 35.1-43.9 [facility] Erythrocyte distribution width (RBC) [Ratio] 11.9 % 11.6-14.6 [facility] Immature granulocytes/100 WBC (Bld) 0.200 % 0.0-0.9 [facility] Comment on above: IG% - Immature Granu locytes (promyelocytes, myelocytes and metamyelocytes) > 1% indicates that a LEFT SHIFT is Present. MCH (RBC) [Entitic mass] 29.0 pg 27.0-32.0 [facility] Nucleated RBC/100 WBC (Bld) [Ratio] 0 % 0-5 [facility] MCHC Auto (RBC) [Mass/Vol]Or dered By: Ovi Rivera on 12-03-2022 MCHC (RBC) [Mass/Vol] 33.2 g/dL 32-36 [facility] No Panel InformationOrdered By: Ovi Rivera on 12-03-2022 Endomysial IgA Antibody Negative Negative [facility] Estimated GFR (MDRD) Amer 104 mL/min >60 [facility] Comment on above: GFR Calc Estimated GFR (MDRD) Non-Af Amer 86 mL/min >60 [facility] Comment on above: Non- GFR Calc Platelets bldOrdered By: Kody Rivera on 12-03-2022 Platelets (Bld) [#/Vol] 245 10*3/uL 150-450 [facility] Serum IgA measurement (units /volume)Ordered By: Ovi Rivera on 12-03-2022 IgA Qn (S) 360 mg/dL 87-352 [facility] Comment on above: Performed at: [place] [id number] Director: Morales Shanks PhD, Phone: [phone] Serum or plasma albumin cassidy urement (mass/volume)Ordered By: Ovi Rivera on 12-03-2022 Albumin [Mass/Vol] 3.4 g/dL 3.2-5.0 [facility] Serum or plasma albumin/glob ulin mass ratioOrdered By: Ovi Rivera on 12-03-2022 Albumin/Globulin [Mass ratio] 0.8 {ratio} 0.9-2.4 [facility] Serum or plasma calcium cassidy urement (mass/volume)Ordered By: Ovi Rivera on 12-03-2022 Calcium [Mass/Vol] 8.9 mg/dL 8.5-10.1 [facility] Serum or plasma creatinine m easurement (mass/volume)Ordered By: Ovi Rivera on 12-03-2022 Creatinine [Mass/Vol] 0.75 mg/dL 0.55-1.02 [facility] Comment on above: The validity of the calculated GFR & GFRAA in patients over 70 years has not been determined. Clinical correlation is essential. Serum or plasma urea nitroge n measurement (mass/volume)Ordered By: Ovi Rivera on 12-03-2022 Urea nitrogen [Mass/Vol] 15 mg/dL 7-18 [facility] Serum tissue transglutaminas e IgA antibody assay (units/volume)Ordered By: Ovi Rivera on 12-03-2022 tTG IgA Qn (S) <2 U/mL 0-3 [facility] Comment on above: Negative 0 - 3 Weak Positive 4 - 10 Positive >10 Tissue Transglutaminase (tTG) has been identified as the endomysial antigen. Studies have demonstr- ated that endomysial IgA antibodies have over 99% specificity for gluten sensitive enteropathy. Thin prep Papanicolaou smear with manual screeningOrdered By: Ovi Rivera on 12-03-2022 Thin prep Papanicolaou smear with manual screening 14 U/L 15-37 [facility] Thin prep Papanicolaou smear with manual screening 6 5-15 [facility] Culture, urineOrdered By: Cherry Scott on 10-05-2022 Bacteria identified Cx Nom (U) Positive [facility] Basophil percentageOrdered B y: Radha Scott on 10-03-2022 Basophil percentage 0-5 SEEN /hpf 0-5 [facility] Bilirubin Test strip Ql (U)O rdered By: Radha Scott on 10-03-2022 Bilirubin Ql (U) 3 mg/dL Negative [facility] Comment on above: COLOR OF URINE MAY A FFECT DIPSTICK RESULTS. Ketones Test strip Ql (U)Ord ered By: Radha Scott on 10-03-2022 Ketones Ql (U) 5 mg/dl Negative [facility] Mucus LM Ql (Urine sed)Order ed By: Radha Scott on 10-03-2022 Mucus Ql (Urine sed) 0 SEEN /hpf [facility] Nitrite Test strip Ql (U)Ord ered By: Radha Scott on 10-03-2022 Nitrite Ql (U) Positive Negative [facility] Protein Test strip Ql (U)Ord ered By: Radha Scott on 10-03-2022 Protein Ql (U) 15 mg/dl Negative [facility] Squamous epithelial cells de tection in urine sediment by light microscopyOrdered By: Radha Scott on 10-03-2022 Epithelial cells.squamous LM Ql (Urine sed) 0-5 SEEN /hpf 5-10 [facility] Urine blood detectionOrdered By: Radha Scott on 10-03-2022 RBC Ql (U) Negative Negative [facility] RBC Ql (U) 0 SEEN /hpf 0-5 [facility] Urine clarityOrdered By: Amie Scott on 10-03-2022 Clarity (U) Sl. Cloudy Clear [facility] Urine color determinationOrd ered By: Radha Scott on 10-03-2022 Color (U) Yellow Yellow [facility] Urine glucose detectionOrder ed By: Radha Scott on 10-03-2022 Glucose Ql (U) Normal mg/dl Normal [facility] Urine leukocyte esterase det ection by dipstickOrdered By: Radha Scott on 10-03-2022 Leukocyte esterase Test strip Ql (U) 25 /ul Negative [facility] Urine pHOrdered By: Radha Hickman on 10-03-2022 pH (U) 6.0 [pH] 5.0 - 8.0 [facility] Urine sediment bacteria coun t by microscopy (number/high power field)Ordered By: Radha Scott on 10-03-2022 Bacteria LM.HPF (Urine sed) [#/Area] 0 /[HPF] None Seen [facility] Urine specific gravity measu rementOrdered By: Radha Scott on 10-03-2022 Specific gravity (U) [Rel density] 1.010 1.002-1.030 [facility] Urobilinogen Auto test strip Ql (U)Ordered By: Radha Scott on 10-03-2022 Urobilinogen Ql (U) 4 mg/dl Normal [facility] Absolute lymphocyte countOrd ered By: Ovi Rivera on 09-17-2022 Lymphocytes Auto (Unsp spec) [#/Vol] 2.80 10*3/uL 0.83-4.51 [facility] Atypical perinuclear antineu trophil cytoplasmic antibodies measurementOrdered By: Ovi Rivera on 09-17-2022 Neutrophil cytoplasmic Ab.perinuclear.atypica l IF (S) [Titer] 1:20 titer Neg:<1:20 [facility] Comment on above: The atypical pANCA p attern has been observed in asignificant percentage of patients with ulcerative colitis,primary sclerosing cholangitis and autoimmune hepatitis. Basophil percentageOrdered B y: Ovi Rivera on 09-17-2022 Basophils/100 WBC (Bld) 1.0 % 0-1 [facility] Bilirubin [Mass/Vol] 0.30 mg/dL 0.20-1.00 [facility] Comment on above: For patients on eltr ombopag therapy, use of Dimension Sparks TBIL is not recommended. Chloride [Moles/Vol] 102 mmol/L 98-107 [facility] Eosinophils/100 WBC (Bld) 2.2 % 0-5 [facility] Glucose [Mass/Vol] 117 mg/dL 74-106 [facility] Comment on above: Fasting Glucose resu lt from 100 to 125 mg/dL suggests IMPAIRED HOMEOSTASIS per A.D.A. criteria. Neutrophils (Bld) [#/Vol] 3.7 10*3/uL 2.0-7.7 [facility] Neutrophils/100 WBC (Bld) 51.4 % 47-70 [facility] Potassium [Moles/Vol] 4.1 mmol/L 3.5-5.1 [facility] Protein [Mass/Vol] 7.5 g/dL 6.4-8.2 [facility] Sodium [Moles/Vol] 137 mmol/L 136-145 [facility] WBC (Bld) [#/Vol] 7.3 10*3/uL 4.4-11.0 [facility] Blood erythrocytes count (nu mber/volume)Ordered By: Ovi Rivera on 09-17-2022 RBC (Bld) [#/Vol] 4.67 10*6/uL 4.2-5.4 [facility] Blood hemoglobin measurement (mass/volume)Ordered By: Ovi Rivera on 09-17-2022 Hemoglobin (Bld) [Mass/Vol] 14.0 g/dL 12.0-15.0 [facility] Blood lymphocytes/100 leukoc ytesOrdered By: Ovi Rivera on 09-17-2022 Lymphocytes/100 WBC (Bld) 38.6 % 19-41 [facility] Blood monocytes/100 leukocyt esOrdered By: Ovi Rivera on 09-17-2022 Monocytes/100 WBC (Bld) 6.7 % 0-10 [facility] Blood platelet mean volumeOr dered By: Ovi Rivera on 09-17-2022 Platelet mean volume (Bld) [Entitic vol] 8.7 fL 6.2-12.0 [facility] Blood polychromasia detectio n by light microscopyOrdered By: Ovi Rivera on 09-17-2022 Polychromasia LM Ql (Bld) 7.3 [facility] Determination of erythrocyte mean corpuscular volume (MCV)Ordered By: Ovi Rivera on 09-17-2022 MCV (RBC) [Entitic vol] 87.2 fL 81-99 [facility] Erythrocyte sedimentation ra teOrdered By: Ovi Rivera on 09-17-2022 ESR (Bld) [Velocity] 8 mm/h 0-30 [facility] HIV 1 and HIV-2 antibody ass ay with HIV-1 p24 antigen detectionOrdered By: Ovi Rivera on 09-17-2022 HIV 1+2 Ab+HIV1 p24 Ag IA Ql Non-Reactive Nonreactive [facility] Hematocrit Auto (Bld) [Volum e fraction]Ordered By: Ovi Rivera on 09-17-2022 Hematocrit (Bld) [Volume fraction] 40.7 % 37-47 [facility] INR in Blood by Coagulation assayOrdered By: Ovi Rivera on 09-17-2022 INR Coag (Bld) [Relative time] 0.9 {INR} [facility] Laboratory - Chemistry and C hemistry - challengeOrdered By: Ovi Rivera on 09-17-2022 ALP [Catalytic activity/Vol] 91 U/L 45-117 [facility] ALT [Catalytic activity/Vol] 19 U/L 13-56 [facility] CO2 [Moles/Vol] 30.0 mmol/L 21.0-32.0 [facility] Globulin (S) [Mass/Vol] 4.2 g/dL 2.2-4.2 [facility] Urea nitrogen/Creatinine [Mass ratio] 14.7 mg/mg 10-20 [facility] Laboratory - CoagulationOrde red By: Ovi Rivera on 09-17-2022 PT Coag (PPP) [Time] 12.3 s 11.7-14.9 [facility] Laboratory - Hematology and Cell countsOrdered By: Ovi Rivera on 09-17-2022 Erythrocyte distribution width (RBC) [Entitic vol] 37.8 fL 35.1-43.9 [facility] Erythrocyte distribution width (RBC) [Ratio] 11.8 % 11.6-14.6 [facility] Immature granulocytes/100 WBC (Bld) 0.100 % 0.0-0.9 [facility] Comment on above: IG% - Immature Granu locytes (promyelocytes, myelocytes and metamyelocytes) > 1% indicates that a LEFT SHIFT is Present. MCH (RBC) [Entitic mass] 30.0 pg 27.0-32.0 [facility] Nucleated RBC/100 WBC (Bld) [Ratio] 0 % 0-5 [facility] MCHC Auto (RBC) [Mass/Vol]Or dered By: Ovi Rivera on 09-17-2022 MCHC (RBC) [Mass/Vol] 34.4 g/dL 32-36 [facility] No Panel InformationOrdered By: Ovi Rivera on 09-17-2022 Ceruloplasmin 28.8 mg/dL 19.0-39.0 [facility] Estimated GFR (MDRD) Amer 95 mL/min >60 [facility] Comment on above: GFR Calc Estimated GFR (MDRD) Non-Af Amer 78 mL/min >60 [facility] Comment on above: Non- GFR Calc Haptoglobin 118 mg/dL 33-346 [facility] Comment on above: Performed at: [facility] [address] [id number] Director: Morales Shanks PhD, Phone: [phone] at: [facility] Lab[address] [id number] Director: Waqar Fraire MD, Phone: [phone] Hepatitis A IgM Antibody Negative Negative [facility] Hepatitis B Core IgM Antibody Negative Negative [facility] Hepatitis C Antibody (EIA) <0.1 s/co ratio 0.0-0.9 [facility] Hepatitis C Antibody Comment Comment . [facility] Comment on above: NegativeNot infected with HCV, unless recent infection issuspected or other evidence exists to indicate HCVinfection. Miscellaneous Test See comment [facility] Comment on above: TEST RESULT LIMITSIB D Expanded PanelgASCA 49 units 0-50 Negative <45 Equivocal 45 - 50 Positive >50ACCA 32 units 0-90 Negative <80 Equivocal 80 - 90 Positive >90ALCA 23 units 0-60 Negative <55 Equivocal 55 - 60 Positive >60AMCA 15 units 0-100 Negative < 90 Equivocal 90 - 100 Positive >100 This test was developed and its performance characteristics determined by [facility]. It has not been cleared or approved by the Food and Drug Administration. The FDA has determined that such clearance or approval is not necessary.Atypical pANCA Negative NegativeCommentsPattern is not suggestive of Inflammatory Bowel Disease. __ TESTING PERFORMED AT [facility]. ORIGINAL REPORT ON FILE IN LAB CONTAINS ADDITIONAL TEST SITE INFORMATION. Platelets bldOrdered By: Kody Rivera on 09-17-2022 Platelets (Bld) [#/Vol] 259 10*3/uL 150-450 [facility] Serum classic neutrophil cyt oplasmic antibody assay (units/volume)Ordered By: Ovi Rivera on 09-17-2022 Neutrophil cytoplasmic Ab.classic Qn (S) <1:20 titer Neg:<1:20 [facility] Serum mitochondria antibody detectionOrdered By: Ovi Rivera on 09-17-2022 Mitochondria Ab Ql (S) <20.0 Units 0.0-20.0 [facility] Comment on above: Negative 0.0 - 20.0 Equivocal 20.1 - 24.9 Positive >24.9Mitochondrial (M2) Antibodies are found in 90-96% ofpatients with primary biliary cirrhosis.Performed at: [address] [id number] Director: Morales Shanks PhD, Phone: [phone] Serum or plasma C reactive p rotein measurement (mass/volume)Ordered By: Ovi Rivera on 09-17-2022 CRP [Mass/Vol] 3.87 mg/L 0.0-3.0 [facility] Comment on above: C-Reactive Protein ( CRP) provides useful information for thediagnosis, therapy and monitoring of inflammatory processesand associated diseases. For the evaluation of Relative Riskfor Cardiovascular Disease, a High Sensitivity CRP (HSCRP)should be ordered. Serum or plasma actin IgG an tibody assay (units/volume)Ordered By: Ovi Rivera on 09-17-2022 Actin IgG Qn 7 Units 0-19 [facility] Comment on above: Negative 0 - 19 Weak positive 20 - 30 Moderate to strong positive >30 Actin Antibodies are found in 52-85% of patients with autoimmune hepatitis or chronic active hepatitis and in 22% of patients with primary biliary cirrhosis. Serum or plasma albumin cassidy urement (mass/volume)Ordered By: Ovi Rivera on 09-17-2022 Albumin [Mass/Vol] 3.3 g/dL 3.2-5.0 [facility] Serum or plasma albumin/glob ulin mass ratioOrdered By: Ovi Rivera on 09-17-2022 Albumin/Globulin [Mass ratio] 0.8 {ratio} 0.9-2.4 [facility] Serum or plasma [id number] protein tumor marker measurement (units/volume)Ordered By: Ovi Rivera on 09-17-2022 AFP.tumor marker Qn 2.6 ng/mL 0.0-9.2 [facility] Comment on above: [facility] El ectrochemiluminescence Immunoassay(ECLIA)Values obtained with different assay methods or kits cannotbe used interchangeably. Results cannot be interpreted asabsolute evidence of the presence or absence of malignantdisease.This test is not interpretable in females. Serum or plasma angiotensin converting enzyme measurement (enzymatic activity/volume)Ordered By: Ovi Rivera on 09-17-2022 Angiotensin converting enzyme [Catalytic activity/Vol] 41 U/L 14-82 [facility] Serum or plasma calcium cassidy urement (mass/volume)Ordered By: Ovi Rivera on 09-17-2022 Calcium [Mass/Vol] 8.9 mg/dL 8.5-10.1 [facility] Serum or plasma creatinine m easurement (mass/volume)Ordered By: Ovi Rivera on 09-17-2022 Creatinine [Mass/Vol] 0.82 mg/dL 0.55-1.02 [facility] Comment on above: The validity of the calculated GFR & GFRAA in patients over 70 years has not been determined. Clinical correlation is essential. Serum or plasma ferritin rick surement (mass/volume)Ordered By: Ovi Rivera on 09-17-2022 Ferritin [Mass/Vol] 38 ng/mL 8- [facility] Serum or plasma hepatitis B virus surface antigen detection by immunoassayOrdered By: Ovi Rivera on 09-17-2022 HBV surface Ag IA Ql Negative Negative [facility] Serum or plasma urea nitroge n measurement (mass/volume)Ordered By: Ovi Rivera on 09-17-2022 Urea nitrogen [Mass/Vol] 12 mg/dL 7-18 [facility] Serum perinuclear neutrophil cytoplasmic antibody titer by immunofluorescenceOrdered By: Ovi Rivera on 09-17-2022 Neutrophil cytoplasmic Ab.perinuclear IF (S) [Titer] <1:20 titer Neg:<1:20 [facility] Comment on above: The presence of posi tive fluorescence exhibiting P-ANCA orC-ANCA patterns alone is not specific for the diagnosis ofWegener's Granulomatosis (WG) or microscopic polyangiitis.Decisions about treatment should not be based solely onANCA IFA results. The [employer] ANCA Group Consensusrecommends follow up testing of positive sera with both WV-3 and MPO-ANCA enzyme immunoassays. As many as 5% serumsamples are positive only by EIA. Ref. AM J Clin Nsjkos2930;111:507-513. Thin prep Papanicolaou smear with manual screeningOrdered By: Ovi Rivera on 09-17-2022 Thin prep Papanicolaou smear with manual screening 17 U/L 15-37 [facility] Thin prep Papanicolaou smear with manual screening 5 5-15 [facility] Thin prep Papanicolaou smear with manual screening 158 U/L 84-246 [facility] Thin prep Papanicolaou smear with manual screening 119 ug/dL 80-158 [facility] Comment on above: Detection Limit = 5 Whole blood hemoglobin A1c/t otal hemoglobin ratio (mass fraction)Ordered By: Ovi Rivera on 09-17-2022 HbA1c (Bld) [Mass fraction] 5.5 % 3.8-5.6 [facility] Comment on above: Normal < 5.7 % Predi abetic 5.7 - 6.4 % Diabetic >or= 6.5 % Please note range changes. EP PanelOrdered By: Dr. Doni granados on 09-13-2022 Gastrointestinal pathogens panel MARCIA+probe (Stl) [facility] Absolute lymphocyte countOrd ered By: Dr. Hall on 09-11-2022 Lymphocytes Auto (Unsp spec) [#/Vol] 2.65 10*3/uL 0.83-4.51 [facility] Basophil percentageOrdered B y: Dr. Hall on 09-11-2022 Basophils/100 WBC (Bld) 1.6 % 0-1 [facility] Bilirubin [Mass/Vol] 0.50 mg/dL 0.20-1.00 [facility] Comment on above: For patients on eltr ombopag therapy, use of Dimension Sparks TBIL is not recommended. Chloride [Moles/Vol] 100 mmol/L 98-107 [facility] Eosinophils/100 WBC (Bld) 2.2 % 0-5 [facility] Glucose [Mass/Vol] 106 mg/dL 74-106 [facility] Comment on above: Fasting Glucose resu lt from 100 to 125 mg/dL suggests IMPAIRED HOMEOSTASIS per A.D.A. criteria. Neutrophils (Bld) [#/Vol] 1.7 10*3/uL 2.0-7.7 [facility] Neutrophils/100 WBC (Bld) 33.4 % 47-70 [facility] Potassium [Moles/Vol] 4.2 mmol/L 3.5-5.1 [facility] Protein [Mass/Vol] 7.4 g/dL 6.4-8.2 [facility] Sodium [Moles/Vol] 135 mmol/L 136-145 [facility] WBC (Bld) [#/Vol] 5.0 10*3/uL 4.4-11.0 [facility] Blood erythrocytes count (nu mber/volume)Ordered By: Dr. Hall on 10-26-2022 RBC (Bld) [#/Vol] 4.64 10*6/uL 4.2-5.4 [facility] Blood hemoglobin measurement (mass/volume)Ordered By: Dr. Hall on 09-11-2022 Hemoglobin (Bld) [Mass/Vol] 13.6 g/dL 12.0-15.0 [facility] Blood lymphocytes/100 leukoc ytesOrdered By: Dr. Hall on 09-11-2022 Lymphocytes/100 WBC (Bld) 53.2 % 19-41 [facility] Blood monocytes/100 leukocyt esOrdered By: Dr. Hall on 09-11-2022 Monocytes/100 WBC (Bld) 9.6 % 0-10 [facility] Blood platelet mean volumeOr dered By: Dr. Hall on 09-11-2022 Platelet mean volume (Bld) [Entitic vol] 8.4 fL 6.2-12.0 [facility] Determination of erythrocyte mean corpuscular volume (MCV)Ordered By: Dr. Hall on 09-11-2022 MCV (RBC) [Entitic vol] 87.7 fL 81-99 [facility] Hematocrit Auto (Bld) [Volum e fraction]Ordered By: Dr. Hall on 09-11-2022 Hematocrit (Bld) [Volume fraction] 40.7 % 37-47 [facility] Laboratory - Chemistry and C hemistry - challengeOrdered By: Dr. Hall on 09-11-2022 ALP [Catalytic activity/Vol] 81 U/L 45-117 [facility] ALT [Catalytic activity/Vol] 18 U/L 13-56 [facility] CO2 [Moles/Vol] 33.0 mmol/L 21.0-32.0 [facility] Globulin (S) [Mass/Vol] 4.1 g/dL 2.2-4.2 [facility] Lipase [Catalytic activity/Vol] 157 U/L 73-393 [facility] Urea nitrogen/Creatinine [Mass ratio] 16.4 mg/mg 10-20 [facility] Laboratory - Hematology and Cell countsOrdered By: Dr. Hall on 09-11-2022 Erythrocyte distribution width (RBC) [Entitic vol] 37.9 fL 35.1-43.9 [facility] Erythrocyte distribution width (RBC) [Ratio] 11.8 % 11.6-14.6 [facility] Immature granulocytes/100 WBC (Bld) 0.000 % 0.0-0.9 [facility] Comment on above: IG% - Immature Granu locytes (promyelocytes, myelocytes and metamyelocytes) > 1% indicates that a LEFT SHIFT is Present. MCH (RBC) [Entitic mass] 29.3 pg 27.0-32.0 [facility] Nucleated RBC/100 WBC (Bld) [Ratio] 0 % 0-5 [facility] MCHC Auto (RBC) [Mass/Vol]Or dered By: Dr. Hall on 09-11-2022 MCHC (RBC) [Mass/Vol] 33.4 g/dL 32-36 [facility] No Panel InformationOrdered By: Dr. Hall on 09-11-2022 Estimated GFR (MDRD) Amer 77 mL/min >60 [facility] Comment on above: GFR Calc Estimated GFR (MDRD) Non-Af Amer 64 mL/min >60 [facility] Comment on above: Non- GFR Calc Haptoglobin 78 mg/dL 33-346 [facility] Comment on above: Performed at: [address] Director: Morales Shanks PhD, Phone: [phone] Platelets bldOrdered By: Dr. Hall on 09-11-2022 Platelets (Bld) [#/Vol] 248 10*3/uL 150-450 [facility] Serum or plasma C reactive p rotein measurement (mass/volume)Ordered By: Dr. Hall on 09-11-2022 CRP [Mass/Vol] mg/L 0.0-3.0 [facility] Comment on above: C-Reactive Protein ( CRP) provides useful information for thediagnosis, therapy and monitoring of inflammatory processesand associated diseases. For the evaluation of Relative Riskfor Cardiovascular Disease, a High Sensitivity CRP (HSCRP)should be ordered. Serum or plasma albumin cassidy urement (mass/volume)Ordered By: Dr. Hall on 09-11-2022 Albumin [Mass/Vol] 3.3 g/dL 3.2-5.0 [facility] Serum or plasma albumin/glob ulin mass ratioOrdered By: Dr. Hall on 09-11-2022 Albumin/Globulin [Mass ratio] 0.8 {ratio} 0.9-2.4 [facility] Serum or plasma calcium cassidy urement (mass/volume)Ordered By: Dr. Hall on 09-11-2022 Calcium [Mass/Vol] 9.1 mg/dL 8.5-10.1 [facility] Serum or plasma creatinine m easurement (mass/volume)Ordered By: Dr. Hall on 09-11-2022 Creatinine [Mass/Vol] 0.98 mg/dL 0.55-1.02 [facility] Comment on above: The validity of the calculated GFR & GFRAA in patients over 70 years has not been determined. Clinical correlation is essential. Serum or plasma urea nitroge n measurement (mass/volume)Ordered By: Dr. Hall on 09-11-2022 Urea nitrogen [Mass/Vol] 16 mg/dL 7-18 [facility] Thin prep Papanicolaou smear with manual screeningOrdered By: Dr. Hall on 09-11-2022 Thin prep Papanicolaou smear with manual screening 13 U/L 15-37 [facility] Thin prep Papanicolaou smear with manual screening 2 5-15 [facility] No Panel Informationon 06-04 Troponin I High Sensitivity 106 pg/mL 3.0-54.0 [facility] Work Phone: Comment on above: Please Note: New Iva t Units and Gender Specific Reference Ranges. For more information see Policy Stat Procedure Sparks High Sensitivity Troponin (TNIH) and attachments. Absolute lymphocyte counton 06-03-2022 Lymphocytes Auto (Unsp spec) [#/Vol] 3.02 10*3/uL 0.83-4.51 [facility] Work Phone: Basophil percentageon 2021 Basophils/100 WBC (Bld) 1.0 % 0-1 [facility] Work Phone: Chloride [Moles/Vol] 102 mmol/L 98-107 [facility] Work Phone: Eosinophils/100 WBC (Bld) 2.6 % 0-5 [facility] Work Phone: Glucose [Mass/Vol] 111 mg/dL 74-106 [facility] Work Phone: Comment on above: Fasting Glucose resu lt from 100 to 125 mg/dL suggests IMPAIRED HOMEOSTASIS per A.D.A. criteria. Neutrophils (Bld) [#/Vol] 2.3 10*3/uL 2.0-7.7 [facility] Work Phone: Neutrophils/100 WBC (Bld) 37.4 % 47-70 [facility] Work Phone: Potassium [Moles/Vol] 3.9 mmol/L 3.5-5.1 [facility] Work Phone: [phone] Sodium [Moles/Vol] 139 mmol/L 136-145 [facility] Work Phone: WBC (Bld) [#/Vol] 6.0 10*3/uL 4.4-11.0 [facility] Work Phone: Blood erythrocytes count (nu mber/volume)on 06-03-2022 RBC (Bld) [#/Vol] 4.62 10*6/uL 4.2-5.4 [facility] Work Phone: [phone] Blood hemoglobin measurement (mass/volume)on 06-03-2022 Hemoglobin (Bld) [Mass/Vol] 13.3 g/dL 12.0-15.0 [facility] Work Phone: Blood lymphocytes/100 leukoc yteson 06-03-2022 Lymphocytes/100 WBC (Bld) 50.0 % 19-41 [facility] Work Phone: [phone] Blood monocytes/100 leukocyt eson 06-03-2022 Monocytes/100 WBC (Bld) 8.8 % 0-10 [facility] Work Phone: Blood platelet mean volumeon 06-03-2022 Platelet mean volume (Bld) [Entitic vol] 8.9 fL 6.2-12.0 [facility] Work Phone: Determination of erythrocyte mean corpuscular volume (MCV)on 06-03-2022 MCV (RBC) [Entitic vol] 86.8 fL 81-99 [facility] Work Phone: Hematocrit Auto (Bld) [Volum e fraction]on 06-03-2022 Hematocrit (Bld) [Volume fraction] 40.1 % 37-47 [facility] Work Phone: Laboratory - Chemistry and C hemistry - challengeon 06-03-2022 CO2 [Moles/Vol] 31.0 mmol/L 21.0-32.0 [facility] Work Phone: Urea nitrogen/Creatinine [Mass ratio] 21.4 mg/mg 10-20 [facility] Work Phone: Laboratory - Hematology and Cell countson 06-03-2022 Erythrocyte distribution width (RBC) [Entitic vol] 38.3 fL 35.1-43.9 [facility] Work Phone: Erythrocyte distribution width (RBC) [Ratio] 12.0 % 11.6-14.6 [facility] Work Phone: Immature granulocytes/100 WBC (Bld) 0.200 % 0.0-0.9 [facility] Work Phone: Comment on above: IG% - Immature Granu locytes (promyelocytes, myelocytes and metamyelocytes) > 1% indicates that a LEFT SHIFT is Present. MCH (RBC) [Entitic mass] 28.8 pg 27.0-32.0 [facility] Work Phone: Nucleated RBC/100 WBC (Bld) [Ratio] 0 % 0-5 [facility] Work Phone: MCHC Auto (RBC) [Mass/Vol]on 06-03-2022 MCHC (RBC) [Mass/Vol] 33.2 g/dL 32-36 [facility] Work Phone: No Panel Informationon 06-03 D-Dimer Quantitative (PE/DVT) 0.67 FEU/ug/m 0.27-0.49 [facility] Work Phone: Comment on above: CRITICAL VALUE VERIF IED. CALLED TO PANFILO GAMA RN ED06/03/22 [id number] [address] Mcfarlane.RESULTS READ BACK BY SAME . D-Dimer ELEVATED (>0.49): Additional studies and clinicalassessments are indicated to conclude diagnosis of:Deep Vein Thrombosis (DVT) or Pulmonary Embolism (PE) Estimated Creatinine Clearance Calc 65.54 ml/min [facility] Work Phone: Estimated GFR (MDRD) Amer 92 mL/min >60 [facility] Work Phone: Comment on above: GFR Calc Estimated GFR (MDRD) Non-Af Amer 76 mL/min >60 [facility] Work Phone: Comment on above: Non- GFR Calc Platelets bldon 06-03-2022 Platelets (Bld) [#/Vol] 274 10*3/uL 150-450 [facility] Work Phone: Serum or plasma calcium cassidy urement (mass/volume)on 06-03-2022 Calcium [Mass/Vol] 9.3 mg/dL 8.5-10.1 [facility] Work Phone: Serum or plasma creatinine m easurement (mass/volume)on 06-03-2022 Creatinine [Mass/Vol] 0.84 mg/dL 0.55-1.02 [facility] Work Phone: Comment on above: The validity of the calculated GFR & GFRAA in patients over 70 years has not been determined. Clinical correlation is essential. Serum or plasma urea nitroge n measurement (mass/volume)on 06-03-2022 Urea nitrogen [Mass/Vol] 18 mg/dL 06-03 [facility] Work Phone: Thin prep Papanicolaou smear with manual screeningon 06-03-2022 Thin prep Papanicolaou smear with manual screening 6 5-15 [facility] Work Phone: Laboratory - Microbiology an d Antimicrobial susceptibilityon 05-17-2022 SARS-CoV-2 (COVID-19) RNA MARCIA+probe Ql (Unsp spec) Not detected Not Detect [facility] Work Phone: Comment on above: Normal Reference Ran ge: Not DetectedMethod:(RT-PCR) real-time reverse transcriptase PCRLuminex NBA Instrument*The Food and Drug Administration (FDA) has issued an Emergency Use Authorization (EAU) for the NBA SARS-CoV-2 Assay for the rapid detection of the virus that causes COVID-19. This test has been validated, but the FDAs independent review of this validation is pending.*Negative results do not preclude infection and should not be used as the sole basis for treatment or patient management. Optimum specimen types and timing for peak viral levels during infections caused by SARS-CoV-2 have not been determined. Collection of multiple specimens from the same patient may be necessary to detect the virus. The possibility of a false negative result should be considered if the patient has clinical presentation or has had recent exposure. Absolute lymphocyte counton 03-16-2022 Lymphocytes Auto (Unsp spec) [#/Vol] 2.71 10*3/uL 0.83-4.51 [facility] Work Phone: Basophil percentageon 2021 Basophils/100 WBC (Bld) 1.1 % 0-1 [facility] Work Phone: Bilirubin [Mass/Vol] 0.30 mg/dL 0.20-1.00 [facility] Work Phone: Comment on above: For patients on eltr ombopag therapy, use of Dimension Sparks TBIL is not recommended. Chloride [Moles/Vol] 101 mmol/L 98-107 [facility] Work Phone: Eosinophils/100 WBC (Bld) 2.0 % 0-5 [facility] Work Phone: Glucose [Mass/Vol] 106 mg/dL 74-106 [facility] Work Phone: Comment on above: Fasting Glucose resu lt from 100 to 125 mg/dL suggests IMPAIRED HOMEOSTASIS per A.D.A. criteria. Neutrophils (Bld) [#/Vol] 1.2 10*3/uL 2.0-7.7 [facility] Work Phone: Neutrophils/100 WBC (Bld) 27.1 % 47-70 [facility] Work Phone: Potassium [Moles/Vol] 4.0 mmol/L 3.5-5.1 [facility] Work Phone: Protein [Mass/Vol] 7.4 g/dL 6.4-8.2 [facility] Work Phone: Sodium [Moles/Vol] 138 mmol/L 136-145 [facility] Work Phone: WBC (Bld) [#/Vol] 4.4 10*3/uL 4.4-11.0 [facility] Work Phone: Blood erythrocytes count (nu mber/volume)on 03-16-2022 RBC (Bld) [#/Vol] 4.28 10*6/uL 4.2-5.4 [facility] Work Phone: Blood hemoglobin measurement (mass/volume)on 03-16-2022 Hemoglobin (Bld) [Mass/Vol] 12.9 g/dL 12.0-15.0 [facility] Work Phone: Blood lymphocytes/100 leukoc yteson 03-16-2022 Lymphocytes/100 WBC (Bld) 61.6 % 19-41 [facility] Work Phone: Blood monocytes/100 leukocyt eson 03-16-2022 Monocytes/100 WBC (Bld) 8.2 % 0-10 [facility] Work Phone: Blood platelet mean volumeon 03-16-2022 Platelet mean volume (Bld) [Entitic vol] 8.8 fL 6.2-12.0 [facility] Work Phone: Determination of erythrocyte mean corpuscular volume (MCV)on 03-16-2022 MCV (RBC) [Entitic vol] 88.1 fL 81-99 [facility] Work Phone: Hematocrit Auto (Bld) [Volum e fraction]on 03-16-2022 Hematocrit (Bld) [Volume fraction] 37.7 % 37-47 [facility] Work Phone: Laboratory - Chemistry and C hemistry - challengeon 03-16-2022 ALP [Catalytic activity/Vol] 66 U/L 45-117 [facility] Work Phone: ALT [Catalytic activity/Vol] 17 U/L 13-56 [facility] Work Phone: CO2 [Moles/Vol] 34.0 mmol/L 21.0-32.0 [facility] Work Phone: Globulin (S) [Mass/Vol] 3.8 g/dL 2.2-4.2 [facility] Work Phone: Lipase [Catalytic activity/Vol] 75 U/L 73-393 [facility] Work Phone: Urea nitrogen/Creatinine [Mass ratio] 12.8 mg/mg 10-20 [facility] Work Phone: Laboratory - Hematology and Cell countson 03-16-2022 Erythrocyte distribution width (RBC) [Entitic vol] 37.5 fL 35.1-43.9 [facility] Work Phone: Erythrocyte distribution width (RBC) [Ratio] 11.7 % 11.6-14.6 [facility] Work Phone: Immature granulocytes/100 WBC (Bld) 0.000 % 0.0-0.9 [facility] Work Phone: Comment on above: IG% - Immature Granu locytes (promyelocytes, myelocytes and metamyelocytes) > 1% indicates that a LEFT SHIFT is Present. MCH (RBC) [Entitic mass] 30.1 pg 27.0-32.0 [facility] Work Phone: [phone] Nucleated RBC/100 WBC (Bld) [Ratio] 0 % 0-5 [facility] Work Phone: MCHC Auto (RBC) [Mass/Vol]on 03-16-2022 MCHC (RBC) [Mass/Vol] 34.2 g/dL 32-36 [facility] Work Phone: No Panel Informationon 03-16 Estimated Creatinine Clearance Calc 64.02 ml/min [facility] Work Phone: Estimated GFR (MDRD) Amer 89 mL/min >60 [facility] Work Phone: Comment on above: GFR Calc Estimated GFR (MDRD) Non-Af Amer 74 mL/min >60 [facility] Work Phone: Comment on above: Non- GFR Calc Platelets bldon 03-16-2022 Platelets (Bld) [#/Vol] 232 10*3/uL 150-450 [facility] Work Phone: Serum or plasma albumin cassidy urement (mass/volume)on 03-16-2022 Albumin [Mass/Vol] 3.6 g/dL 3.2-5.0 [facility] Work Phone: Serum or plasma albumin/glob ulin mass ratioon 03-16-2022 Albumin/Globulin [Mass ratio] 0.9 {ratio} 0.9-2.4 [facility] Work Phone: Serum or plasma calcium cassidy urement (mass/volume)on 03-16-2022 Calcium [Mass/Vol] 8.4 mg/dL 8.5-10.1 [facility] Work Phone: Serum or plasma creatinine m easurement (mass/volume)on 03-16-2022 Creatinine [Mass/Vol] 0.86 mg/dL 0.55-1.02 [facility] Work Phone: Comment on above: The validity of the calculated GFR & GFRAA in patients over 70 years has not been determined. Clinical correlation is essential. Serum or plasma urea nitroge n measurement (mass/volume)on 03-16-2022 Urea nitrogen [Mass/Vol] 11 mg/dL 7-18 [facility] Work Phone: Thin prep Papanicolaou smear with manual screeningon 03-16-2022 Thin prep Papanicolaou smear with manual screening 13 U/L 15-37 [facility] Work Phone: Thin prep Papanicolaou smear with manual screening 3 5-15 [facility] Work Phone: Culture, urineon 01-09-2022 Bacteria identified Cx Nom (U) Positive [facility] Work Phone: Absolute lymphocyte counton 12-14-2021 Lymphocytes Auto (Unsp spec) [#/Vol] 2.29 10*3/uL 0.83-4.51 [facility] Work Phone: Basophil percentageon 2021 Basophil percentage 0 SEEN /hpf [facility] Work Phone: Basophils/100 WBC (Bld) 0.3 % 0-1 [facility] Work Phone: Bilirubin [Mass/Vol] 0.50 mg/dL 0.20-1.00 [facility] Work Phone: [phone] Comment on above: For patients on eltr ombopag therapy, use of Dimension [place] TBIL is not recommended. Chloride [Moles/Vol] 102 mmol/L 98-107 [facility] Work Phone: Eosinophils/100 WBC (Bld) 2.2 % 0-5 [facility] Work Phone: Glucose [Mass/Vol] 101 mg/dL 74-106 [facility] Work Phone: Comment on above: Fasting Glucose resu lt from 100 to 125 mg/dL suggests IMPAIRED HOMEOSTASIS per A.D.A. criteria. Neutrophils (Bld) [#/Vol] 8.1 10*3/uL 2.0-7.7 [facility] Work Phone: Neutrophils/100 WBC (Bld) 70.7 % 47-70 [facility] Work Phone: Potassium [Moles/Vol] 4.2 mmol/L 3.5-5.1 [facility] Work Phone: [phone] Protein [Mass/Vol] 7.6 g/dL 6.4-8.2 [facility] Work Phone: Sodium [Moles/Vol] 137 mmol/L 136-145 [facility] Work Phone: [phone] WBC (Bld) [#/Vol] 11.5 10*3/uL 4.4-11.0 [facility] Work Phone: Bilirubin Test strip Ql (U)o n 12-14-2021 Bilirubin Ql (U) Negative Negative [facility] Work Phone: Blood erythrocytes count (nu mber/volume)on 12-14-2021 RBC (Bld) [#/Vol] 4.75 10*6/uL 4.2-5.4 [facility] Work Phone: Blood hemoglobin measurement (mass/volume)on 12-14-2021 Hemoglobin (Bld) [Mass/Vol] 13.8 g/dL 12.0-15.0 [facility] Work Phone: Blood lymphocytes/100 leukoc yteson 12-14-2021 Lymphocytes/100 WBC (Bld) 20.0 % 19-41 [facility] Work Phone: [phone] Blood monocytes/100 leukocyt eson 12-14-2021 Monocytes/100 WBC (Bld) 6.5 % 0-10 [facility] Work Phone: Blood platelet mean volumeon 12-14-2021 Platelet mean volume (Bld) [Entitic vol] 8.6 fL 6.2-12.0 [facility] Work Phone: Determination of erythrocyte mean corpuscular volume (MCV)on 12-14-2021 MCV (RBC) [Entitic vol] 86.9 fL 81-99 [facility] Work Phone: Hematocrit Auto (Bld) [Volum e fraction]on 12-14-2021 Hematocrit (Bld) [Volume fraction] 41.3 % 37-47 [facility] Work Phone: Ketones Test strip Ql (U)on 12-14-2021 Ketones Ql (U) Negative Negative [facility] Work Phone: Laboratory - Chemistry and C hemistry - challengeon 12-14-2021 Lipase [Catalytic activity/Vol] 69 U/L 73-393 [facility] Work Phone: ALP [Catalytic activity/Vol] 71 U/L 45-117 [facility] Work Phone: ALT [Catalytic activity/Vol] 17 U/L 13-56 [facility] Work Phone: CO2 [Moles/Vol] 30.0 mmol/L 21.0-32.0 [facility] Work Phone: Globulin (S) [Mass/Vol] 4.3 g/dL 2.2-4.2 [facility] Work Phone: Urea nitrogen/Creatinine [Mass ratio] 18.3 mg/mg 10-20 [facility] Work Phone: Laboratory - Hematology and Cell countson 12-14-2021 Erythrocyte distribution width (RBC) [Entitic vol] 38.5 fL 35.1-43.9 [facility] Work Phone: Erythrocyte distribution width (RBC) [Ratio] 12.0 % 11.6-14.6 [facility] Work Phone: Immature granulocytes/100 WBC (Bld) 0.300 % 0.0-0.9 [facility] Work Phone: Comment on above: IG% - Immature Granu locytes (promyelocytes, myelocytes and metamyelocytes) > 1% indicates that a LEFT SHIFT is Present. MCH (RBC) [Entitic mass] 29.1 pg 27.0-32.0 [facility] Work Phone: Nucleated RBC/100 WBC (Bld) [Ratio] 0 % 0-5 [facility] Work Phone: MCHC Auto (RBC) [Mass/Vol]on 12-14-2021 MCHC (RBC) [Mass/Vol] 33.4 g/dL 32-36 [facility] Work Phone: Mucus LM Ql (Urine sed)on Mucus Ql (Urine sed) 0 SEEN /hpf [facility] Work Phone: Nitrite Test strip Ql (U)on 12-14-2021 Nitrite Ql (U) Negative Negative [facility] Work Phone: No Panel Informationon 12-14 Valproic Acid (Depakene) Level 48 ug/mL 50-100 [facility] Work Phone: Estimated Creatinine Clearance Calc 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 [facility] Work Phone: Estimated GFR (MDRD) Amer 94 mL/min >60 [facility] Work Phone: Comment on above: GFR Calc Estimated GFR (MDRD) Non-Af Amer 78 mL/min >60 [facility] Work Phone: Comment on above: Non- GFR Calc Platelets bldon 12-14-2021 Platelets (Bld) [#/Vol] 299 10*3/uL 150-450 [facility] Work Phone: Protein Test strip Ql (U)on 12-14-2021 Protein Ql (U) 15 mg/dl Negative [facility] Work Phone: Serum or plasma albumin cassidy urement (mass/volume)on 12-14-2021 Albumin [Mass/Vol] 3.3 g/dL 3.2-5.0 [facility] Work Phone: Serum or plasma albumin/glob ulin mass ratioon 12-14-2021 Albumin/Globulin [Mass ratio] 0.8 {ratio} 0.9-2.4 [facility] Work Phone: Serum or plasma calcium cassidy urement (mass/volume)on 12-14-2021 Calcium [Mass/Vol] 8.9 mg/dL 8.5-10.1 [facility] Work Phone: Serum or plasma creatinine m easurement (mass/volume)on 12-14-2021 Creatinine [Mass/Vol] 0.82 mg/dL 0.55-1.02 [facility] Work Phone: Comment on above: The validity of the calculated GFR & GFRAA in patients over 70 years has not been determined. Clinical correlation is essential. Serum or plasma urea nitroge n measurement (mass/volume)on 12-14-2021 Urea nitrogen [Mass/Vol] 15 mg/dL 7-18 [facility] Work Phone: Squamous epithelial cells de tection in urine sediment by light microscopyon 12-14-2021 Epithelial cells.squamous LM Ql (Urine sed) 0-5 SEEN /hpf [facility] Work Phone: Thin prep Papanicolaou smear with manual screeningon 12-14-2021 Thin prep Papanicolaou smear with manual screening 16 U/L 15-37 [facility] Work Phone: Thin prep Papanicolaou smear with manual screening 5 5-15 [facility] Work Phone: Urine blood detectionon 11-18 RBC Ql (U) 10 /ul Negative [facility] Work Phone: RBC Ql (U) 0 SEEN /hpf [facility] Work Phone: Urine clarityon 12-14-2021 Clarity (U) Clear Clear [facility] Work Phone: Urine color determinationon 12-14-2021 Color (U) Yellow Yellow [facility] Work Phone: Urine glucose detectionon Glucose Ql (U) Normal mg/dl Normal [facility] Work Phone: Urine leukocyte esterase det ection by dipstickon 12-14-2021 Leukocyte esterase Test strip Ql (U) Negative Negative [facility] Work Phone: Urine pHon 12-14-2021 pH (U) 6.5 [pH] [facility] Work Phone: Urine sediment bacteria coun t by microscopy (number/high power field)on 12-14-2021 Bacteria LM.HPF (Urine sed) [#/Area] 0 /[HPF] None Seen [facility] Work Phone: Urine specific gravity measu rementon 12-14-2021 Specific gravity (U) [Rel density] 1.015 [facility] Work Phone: Urobilinogen Auto test strip Ql (U)on 12-14-2021 Urobilinogen Ql (U) Normal mg/dl Normal [facility] Work Phone: Culture, urineon 11-06-2021 Bacteria identified Cx Nom (U) Presumptive C albicans [facility] Work Phone: Bacteria identified Cx Nom (U) Positive [facility] Work Phone: No Panel Informationon 11-06 Enteric Bacteriology [facility] Work Phone: Absolute lymphocyte counton 10-30-2021 Lymphocytes Auto (Unsp spec) [#/Vol] 2.45 10*3/uL 0.83-4.51 [facility] Work Phone: Basophil percentageon 2020 Lactate [Moles/Vol] 1.1 mmol/L 0.4-2.0 [facility] Work Phone: Basophil percentage 0-5 SEEN /hpf [facility] Work Phone: Bilirubin [Mass/Vol] 0.50 mg/dL 0.20-1.00 [facility] Work Phone: Comment on above: For patients on eltr ombopag therapy, use of Dimension [place] TBIL is not recommended. Chloride [Moles/Vol] 103 mmol/L 98-107 [facility] Work Phone: [phone] Eosinophils/100 WBC (Bld) 3.2 % 0-5 [facility] Work Phone: Glucose [Mass/Vol] 94 mg/dL 74-106 [facility] Work Phone: Comment on above: Please note revised GLUCOSE reference range effective 2017. Neutrophils (Bld) [#/Vol] 1.3 10*3/uL 2.0-7.7 [facility] Work Phone: Potassium [Moles/Vol] 4.6 mmol/L 3.5-5.1 [facility] Work Phone: Protein [Mass/Vol] 8.0 g/dL 6.4-8.2 [facility] Work Phone: Sodium [Moles/Vol] 139 mmol/L 136-145 [facility] Work Phone: WBC (Bld) [#/Vol] 4.4 10*3/uL 4.4-11.0 [facility] Work Phone: Bilirubin Test strip Ql (U)o n 10-30-2021 Bilirubin Ql (U) Negative Negative [facility] Work Phone: Blood erythrocytes count (nu mber/volume)on 10-30-2021 RBC (Bld) [#/Vol] 4.68 10*6/uL 4.2-5.4 [facility] Work Phone: Blood hemoglobin measurement (mass/volume)on 10-30-2021 Hemoglobin (Bld) [Mass/Vol] 13.9 g/dL 12.0-15.0 [facility] Work Phone: Blood lymphocytes/100 leukoc yteson 10-30-2021 Lymphocytes/100 WBC (Bld) 56.3 % 19-41 [facility] Work Phone: Blood monocytes/100 leukocyt eson 10-30-2021 Monocytes/100 WBC (Bld) 8.0 % 0-10 [facility] Work Phone: Blood platelet mean volumeon 10-30-2021 Platelet mean volume (Bld) [Entitic vol] 8.1 fL 6.2-12.0 [facility] Work Phone: Determination of erythrocyte mean corpuscular volume (MCV)on 10-30-2021 MCV (RBC) [Entitic vol] 88.7 fL 81-99 [facility] Work Phone: Direct bilirubinon Bilirubin.direct [Mass/Vol] 0.10 mg/dL 0.00-0.30 [facility] Work Phone: Hematocrit Auto (Bld) [Volum e fraction]on 10-30-2021 Hematocrit (Bld) [Volume fraction] 41.5 % 37-47 [facility] Work Phone: Ketones Test strip Ql (U)on 10-30-2021 Ketones Ql (U) Negative Negative [facility] Work Phone: Laboratory - Chemistry and C hemistry - challengeon 10-30-2021 ALP [Catalytic activity/Vol] 77 U/L 45-117 [facility] Work Phone: ALT [Catalytic activity/Vol] 18 U/L 13-56 [facility] Work Phone: CO2 [Moles/Vol] 33.0 mmol/L 21.0-32.0 [facility] Work Phone: Globulin (S) [Mass/Vol] 4.4 g/dL 2.2-4.2 [facility] Work Phone: Lipase [Catalytic activity/Vol] 63 U/L 73-393 [facility] Work Phone: Urea nitrogen/Creatinine [Mass ratio] 15.9 mg/mg 10-20 [facility] Work Phone: Laboratory - Hematology and Cell countson 10-30-2021 Basophils/100 WBC (Unsp spec) 1.4 % 0-1 [facility] Work Phone: Erythrocyte distribution width (RBC) [Entitic vol] 39.3 fL 35.1-43.9 [facility] Work Phone: Erythrocyte distribution width (RBC) [Ratio] 12.1 % 11.6-14.6 [facility] Work Phone: Immature granulocytes/100 WBC (Bld) 0.200 % 0.0-0.9 [facility] Work Phone: Comment on above: IG% - Immature Granu locytes (promyelocytes, myelocytes and metamyelocytes) > 1% indicates that a LEFT SHIFT is Present. MCH (RBC) [Entitic mass] 29.7 pg 27.0-32.0 [facility] Work Phone: [phone] Neutrophils/100 WBC (Bld) 30.9 % 47-70 [facility] Work Phone: Nucleated RBC/100 WBC (Bld) [Ratio] 0 % 0-5 [facility] Work Phone: MCHC Auto (RBC) [Mass/Vol]on 10-30-2021 MCHC (RBC) [Mass/Vol] 33.5 g/dL 32-36 [facility] Work Phone: Mucus LM Ql (Urine sed)on Mucus Ql (Urine sed) 0 SEEN /hpf [facility] Work Phone: Nitrite Test strip Ql (U)on 10-30-2021 Nitrite Ql (U) Negative Negative [facility] Work Phone: No Panel Informationon 10-30 Estimated Creatinine Clearance Calc 62.56 ml/min [facility] Work Phone: Estimated GFR (MDRD) Amer 87 mL/min >60 [facility] Work Phone: Comment on above: GFR Calc Estimated GFR (MDRD) Non-Af Amer 72 mL/min >60 [facility] Work Phone: Comment on above: Non- GFR Calc Platelets bldon 10-30-2021 Platelets (Bld) [#/Vol] 262 10*3/uL 150-450 [facility] Work Phone: Protein Test strip Ql (U)on 10-30-2021 Protein Ql (U) Negative Negative [facility] Work Phone: Serum or plasma albumin cassidy urement (mass/volume)on 10-30-2021 Albumin [Mass/Vol] 3.6 g/dL 3.2-5.0 [facility] Work Phone: Serum or plasma calcium cassidy urement (mass/volume)on 10-30-2021 Calcium [Mass/Vol] 9.7 mg/dL 8.5-10.1 [facility] Work Phone: Serum or plasma creatinine m easurement (mass/volume)on 10-30-2021 Creatinine [Mass/Vol] 0.88 mg/dL 0.55-1.02 [facility] Work Phone: Comment on above: The validity of the calculated GFR & GFRAA in patients over 70 years has not been determined. Clinical correlation is essential. Serum or plasma urea nitroge n measurement (mass/volume)on 10-30-2021 Urea nitrogen [Mass/Vol] 14 mg/dL 7-18 [facility] Work Phone: Squamous epithelial cells de tection in urine sediment by light microscopyon 10-30-2021 Epithelial cells.squamous LM Ql (Urine sed) 0-5 SEEN /hpf [facility] Work Phone: Thin prep Papanicolaou smear with manual screeningon 10-30-2021 Thin prep Papanicolaou smear with manual screening 13 U/L 15-37 [facility] Work Phone: Thin prep Papanicolaou smear with manual screening 3 5-15 [facility] Work Phone: Urine blood detectionon 10-17 RBC Ql (U) 10 /ul Negative [facility] Work Phone: RBC Ql (U) 0-5 SEEN /hpf [facility] Work Phone: Urine clarityon 10-30-2021 Clarity (U) Sl. Cloudy Clear [facility] Work Phone: Urine color determinationon 10-30-2021 Color (U) Yellow Yellow [facility] Work Phone: Urine glucose detectionon Glucose Ql (U) Normal mg/dl Normal [facility] Work Phone: Urine leukocyte esterase det ection by dipstickon 10-30-2021 Leukocyte esterase Test strip Ql (U) Negative Negative [facility] Work Phone: Urine pHon 10-30-2021 pH (U) 6.0 [pH] [facility] Work Phone: Urine sediment bacteria coun t by microscopy (number/high power field)on 10-30-2021 Bacteria LM.HPF (Urine sed) [#/Area] RARE /hpf None Seen [facility] Work Phone: Urine specific gravity measu rementon 10-30-2021 Specific gravity (U) [Rel density] 1.015 [facility] Work Phone: Urobilinogen Auto test strip Ql (U)on 10-30-2021 Urobilinogen Ql (U) Normal mg/dl Normal [facility] Work Phone: Culture, urineon 10-24-2021 Bacteria identified Cx Nom (U) Positive [facility] Work Phone: Valproic Acid,[place].on 2017 Protein mass conc 56 mg/L Normal 50-100 [facility] Comment on above: Performed By: #### A LC #### [place] [id number] Valproic Acid,[place].on 2017 Protein mass conc 63 mg/L Normal 50-100 [facility] Comment on above: Performed By: #### A LC #### [place] [address] Hgb A1con 10-18-2018 Hemoglobin A1c/Hemoglobin.total mass fraction (Bld) 108 mg/dl Normal [facility] Comment on above: Performed By: #### H A1C #### [place] [address] Hemoglobin A1c/Hemoglobin.total mass fraction (Bld) 5.4 % Normal 4.2-6.3 [facility] Comment on above: Result Comment: Meth od is National Glycohemoglobin Standardization Program (NGSP) compliant. Performed By: #### H A1C #### [place] [address] Lipid Profileon 10-18-2018 Cholesterol in HDL mass conc 71 mg/dL Normal >40 [facility] Comment on above: Performed By: #### L IPD2 #### [place] [address] Cholesterol in LDL mass conc 120 mg/dL Normal [facility] Comment on above: Result Comment: No C AD and with fewer than 2 CAD risk factors <160 mg/dL No CAD but with 2 or more CAD risk factors <130 mg/dL Definite CAD or other atherosclerotic disease <100 mg/dL Performed By: #### L IPD2 #### [facility] [address] [place], [place] [address] Cholesterol in LDL/Cholesterol in HDL mass ratio 1.7 Normal 0.6-3.6 [facility] Comment on above: Result Comment: LDL, VLDL,LDL/HDL, Invalid if Triglyceride >400 Performed By: #### L IPD2 #### [facility] [address] [place], [place] [address] Cholesterol.total/Chol esterol in HDL mass ratio 3.4 {ratio} Normal 1.8-5.3 [facility] Comment on above: Performed By: #### L IPD2 #### [facility] [address] [place], [place] [address] Cholesterol in VLDL mass conc 49 mg/dL Normal <50 Desired [facility] Comment on above: Performed By: #### L IPD2 #### [facility] [address] [place], [place] [address] Cholesterol mass conc 240 mg/dL High 0-199 [facility] Comment on above: Result Comment: <200 Desirable 200-240 Borderline >240 High Performed By: #### L IPD2 #### [facility] [address] [place], [place] [address] Triglyceride mass conc 245 mg/dL High 0-149 [facility] Comment on above: Result Comment: < 20 0 Desirable Result invalid if not a fasting specimen. Performed By: #### L IPD2 #### [facility] [address] [place], [place] [address] Alcohol, Serumon 10-17-2018 Alcohol, Serum < 3 Normal [facility] Comment on above: Performed By: #### A LC #### [facility] [address] [place], [place] [address] Comprehensive Panelon 2017 ALP enzyme act/vol 74 U/L Normal 46-116 [facility] Comment on above: Performed By: #### P 14 #### [place] [id number] Bilirubin mass conc 0.4 mg/dL Normal 0.2-1.0 [facility] Comment on above: Performed By: #### P 14 #### [facility] [address] [place], [place] [address] Protein mass conc 7.7 g/dL Normal 6.4-8.2 [facility] Comment on above: Performed By: #### P 14 #### [facility] [place], [place] [address] ALT enzyme act/vol 18 U/L Normal 12-78 [facility] Comment on above: Performed By: #### P 14 #### [facility] [address] [place], [place] [address] AST enzyme act/vol 12 U/L Normal 9-37 [facility] Comment on above: Performed By: #### P 14 #### [facility] [address] [place], [place] [address] Creatinine mass conc 0.68 mg/dL Normal 0.51-0.95 [facility] Comment on above: Performed By: #### P 14 #### [facility] [address] [place], [place] [address] Albumin mass conc 3.3 g/dL Low 3.4-5.0 [facility] Comment on above: Performed By: #### P 14 #### [facility] [address] [place], [place] [address] Anion gap molar conc 10 mmol/L Normal 8-16 [facility] Comment on above: Performed By: #### P 14 #### [facility] [address] [place], [place] [address] CO2 molar conc 29 mmol/L Normal 21-32 [facility] Comment on above: Performed By: #### P 14 #### [facility] [address] [place], [place] [address] Glucose mass conc 86 mg/dL Normal 70-99 [facility] Comment on above: Performed By: #### P 14 #### [facility] [address] [place], [place] [address] Urea nitrogen mass conc 13 mg/dL Normal 7-18 [facility] Comment on above: Performed By: #### P 14 #### [facility] [address] [place] [address] Calcium mass conc 8.6 mg/dL Normal 8.5-10.1 [facility] Comment on above: Performed By: #### P 14 #### [facility] [address] [place] [address] Chloride molar conc 104 mmol/L Normal 98-107 [facility] Comment on above: Performed By: #### P 14 #### [facility] [address] [place] [address] Potassium molar conc 4.0 mmol/L Normal 3.5-5.1 [facility] Comment on above: Performed By: #### P 14 #### [facility] [address] [place] [address] Sodium molar conc 139 mmol/L Normal 136-145 [facility] Comment on above: Performed By: #### P 14 #### [facility] [address] [place] [address] Hemogram/Diffon 10-17-2018 Abs Immature Grans 0.01 thou/cmm Normal 0.00-0.05 [facility] Comment on above: Performed By: #### C BCD1 #### [facility] [address] [place] [address] Abs. Baso 0.08 thou/cmm Normal 0.01-0.08 [facility] Comment on above: Performed By: #### C BCD1 #### [facility] [address] [place] [address] Abs. Hendricks 0.63 thou/cmm Normal 0.27-0.70 [facility] Comment on above: Performed By: #### C BCD1 #### [facility] [address] [place] [address] Abs. Neut (ANC) 2.33 thou/cmm Normal 1.56-6.13 [facility] Comment on above: Performed By: #### C BCD1 #### [place] [address] Basophils/100 WBC (Bld) 1.2 % Normal [facility] Comment on above: Performed By: #### C BCD1 #### [facility] [address] [place], [place] [address] Eosinophils #/vol (Bld) 0.13 thou/cmm Normal 0.00-0.31 [facility] Comment on above: Performed By: #### C BCD1 #### [facility] [address] [place], [place] [address] Eosinophils/100 WBC (Bld) 2.0 % Normal [facility] Comment on above: Performed By: #### C BCD1 #### [facility] [address] [place] [address] Erythrocyte distribution width Ratio (RBC) 12.2 % Normal 11.7-14.4 [facility] Comment on above: Performed By: #### C BCD1 #### [facility] [address] [place] [address] Hematocrit Volume Fraction (Bld) 41.7 % Normal 34.1-44.9 [facility] Comment on above: Performed By: #### C BCD1 #### [facility] [address] [place] [address] Hemoglobin mass conc (Bld) 13.8 g/dL Normal 11.2-15.7 [facility] Comment on above: Performed By: #### C BCD1 #### [facility] [address] [place] [address] Immature Grans 0.20 % Normal [facility] Comment on above: Performed By: #### C BCD1 #### [facility] [address] [place], [place] [address] Lymphocytes #/vol (Bld) 3.45 thou/cmm Normal 1.18-3.74 [facility] Comment on above: Performed By: #### C BCD1 #### [facility] [address] [place], [place] [address] Lymphocytes/100 WBC (Bld) 52.0 % Normal [facility] Comment on above: Performed By: #### C BCD1 #### [facility] [address] [place] [address] MCH Entitic mass (RBC) 29.4 pg Normal 25.6-32.2 [facility] Comment on above: Performed By: #### C BCD1 #### [facility] [address] [place] [address] MCHC mass conc (RBC) 33.1 % Normal 31.6-34.8 [facility] Comment on above: Performed By: #### C BCD1 #### [facility] [address] [place] [address] MCV Entitic volume (RBC) 88.7 fL Normal 79.4-94.8 [facility] Comment on above: Performed By: #### C BCD1 #### [facility] [address] [place] [address] Monocytes/100 WBC (Bld) 9.5 % Normal [facility] Comment on above: Performed By: #### C BCD1 #### [facility] [address] [place] [address] Platelet mean volume Entitic volume (Bld) 8.7 fL Low 9.4-12.3 [facility] Comment on above: Performed By: #### C BCD1 #### [facility] [address] [place] [address] Platelets #/vol (Bld) 254 thou/cmm Normal 182-369 [facility] Comment on above: Performed By: #### C BCD1 #### [place] [address] RBC #/vol (Bld) 4.70 mil/cmm Normal 3.93-5.22 [facility] Comment on above: Performed By: #### C BCD1 #### [facility] [address] [place] [address] RDW SD 39.6 fl Normal 36.4-46.3 [facility] Comment on above: Performed By: #### C BCD1 #### [facility] [address] [place] [address] Seg Neutrophil 35.1 % Normal [facility] Comment on above: Performed By: #### C BCD1 #### [place] [address] WBC #/vol (Bld) 6.64 thou/cmm Normal 3.98-10.04 [facility] Comment on above: Performed By: #### C BCD1 #### [place] [id number] MDRD GFRon 10-17-2018 GFR/1.73 sq M predicted among non-blacks MDRD vol rate/area (S/P/Bld) mL/min/{1.73_m2} Normal >60mL/min/1.73 m2 [facility] Comment on above: Result Comment: If t he patient is , multiply the result by 1.210. Performed By: #### G FR #### [place] [address] TSH, 3rd generationon 2017 TSH, 3rd generation 3.410 uIU/mL Normal 0.358-3.740 [facility] Comment on above: Performed By: #### T SH3 #### [place] [address] U ERDSon 10-17-2018 ER U Drug Screen Negative Normal [facility] [place] Comment on above: Performed By: #### U ERDS ####[place] [address] ER U Drug Screen Interp Urine shows no evidence of drugs routinely screened. Invalid Interpretation Code [facility] ([place] Comment on above: Performed By: #### U ERDS ####[place] [address] U ER Drugs Screened: See Below Normal [facility] ([place]) Comment on above: Result Comment: This drug screen is a presumptive screening only. No confirmation will be performed unless requested.Drugs included in the ER urine drug screen are: ThresholdAmphetamine/Methamphetamine 1000 ng/mLBarbiturates 200 ng/mLBenzodiazepine metabolites 200 ng/mLCannabinoids (THC metabolites) 50 ng/mLBenzoylecognine (cocaine met) 300 ng/mLOpiates 300 ng/mLPhencyclidine (PCP) 25 ng/mLTesting has been performed FOR MEDICAL PURPOSES ONLY. Performed By: #### U ERDS ####[place] [address] Urinalysis Routineon 018 Bacteria LM.HPF #/area (Urine sed) NONE Normal None [facility] Comment on above: Performed By: #### U RIN2 #### [facility] [address] [place] [address] Ep Cells Urine 2.3 /hpf Normal 0.0-5.0 [facility] Comment on above: Performed By: #### U RIN2 #### [place] [address] Hyaline Cast 1.9 /lpf High 0.0-1.0 [facility] Comment on above: Performed By: #### U RIN2 #### [place] [address] RBC,Urine 15.3 /hpf High 0.0-5.0 [facility] Comment on above: Performed By: #### U RIN2 #### [place] [address] WBC, Urine 0.5 /hpf Normal 0.0-5.0 [facility] Comment on above: Performed By: #### U RIN2 #### [place] [address] Appearance Nom (U) CLOUDY Normal [facility] Comment on above: Performed By: #### U RIN2 #### [place] [address] Bilirubin Urine Negative Normal Negative [facility] Comment on above: Performed By: #### U RIN2 #### [place] [address] Color Nom (U) YELLOW Normal [facility] Comment on above: Performed By: #### U RIN2 #### [place] [address] Glucose Ql (U) Negative Normal Negative [facility] Comment on above: Performed By: #### U RIN2 #### [place] [address] Hemoglobin,Urine Negative Normal Negative [facility] Comment on above: Performed By: #### U RIN2 #### [facility] [address] [place], [place] [address] Ketone Urine Negative Normal Negative [facility] Comment on above: Performed By: #### U RIN2 #### [facility] [address] [place] [address] Leukocytes Esterase Negative Normal Negative [facility] Comment on above: Performed By: #### U RIN2 #### [facility] [address] [place] [address] Nitrites Urine Negative Normal Negative [facility] Comment on above: Performed By: #### U RIN2 #### [facility] [address] [place] [address] pH (U) 6.0 [pH] Normal 5.0-8.0 [facility] Comment on above: Performed By: #### U RIN2 #### [facility] [address] [place] [address] Protein mass conc (U) Negative Normal Negative [facility] Comment on above: Performed By: #### U RIN2 #### [facility] [address] [place] [address] Specific [place], Ur 1.022 Normal 1.005-1.030 [facility] Comment on above: Performed By: #### U RIN2 #### [facility] [address] [place] [address] Urobilinogen,Ur 1.0 EU/dL Normal 0.0-1.0 [facility] Comment on above: Performed By: #### U RIN2 #### [place] [address] Urine Drug Screenon 10-17-20 18 Urine Amphetamine Non-detected Normal Non-Detected [facility] Comment on above: Performed By: #### U DRG2 #### [place] [address] Urine Barbiturates Non-detected Normal Non-Detected [facility] Comment on above: Performed By: #### U DRG2 #### [place] [address] Urine Benzodiazepine Non-detected Normal Non-Detected [facility] Comment on above: Performed By: #### U DRG2 #### [facility] [address] [place], [place] [address] Urine Cocaine Metab Non-detected Normal Non-Detected [facility] Comment on above: Performed By: #### U DRG2 #### [facility] [address] [place] [address] Urine Opiate Non-detected Normal Non-Detected [facility] Comment on above: Performed By: #### U DRG2 #### [facility] [address] [place] [address] Urine PCP Non-detected Normal Non-Detected [facility] Comment on above: Performed By: #### U DRG2 #### [place] [address] Urine THC Non-detected Normal Non-Detected [facility] Comment on above: Result Comment: Urin e Drug Cutoff Levels Urine Amphetamine 500 ng/mL Urine Barbiturate 200 ng/mL Urine Benzodiazepines 200 ng/mL Urine Cocaine 150 ng/mL Urine Phencyclidine (PCP) 25 ng/mL Urine Opiates 300 ng/mL Urine THC 50 ng/mL The results of these analytes are unconfirmed and reported qualitatively as detected or non-detected relative to the cutoff value. Detected results indicate the sample is likely to contain the analyte. Non-detected results indicate that either the sample does not contain the analyte or it is present in concentrations below the cutoff level. This drug screen should be used for medical diagnostic purposes only. Performed By: #### U DRG2 #### [place] [address] Valproic Acid,[place].on 2017 Protein mass conc 14 mg/L Low 50-100 [facility] Comment on above: Performed By: #### V ALPR #### [place] [address] .Auto Diffon 10-16-2018 Ammonia mass conc (P) 0.60 10 3/mcL Normal 0.09-1.40 [facility] ([place] Comment on above: Performed By: #### C BC, ADIFF, ANEU, CMP, GFR, ERDS ####[address] [place] [address] Basophils Auto #/vol (Bld) 0.10 10 3/mcL Normal 0.00-0.27 [facility] ([place]) Comment on above: Performed By: #### C BC, ADIFF, ANEU, CMP, GFR, ERDS ####[address] [address] Basophils/100 WBC Auto (Bld) 1.0 % Normal 0.0-2.5 [facility] ([place]) Comment on above: Performed By: #### C BC, ADIFF, ANEU, CMP, GFR, ERDS ####[address] [address] Eosinophils Auto #/vol (Bld) 0.10 10 3/mcL Normal 0.00-0.65 [facility] ([place]) Comment on above: Performed By: #### C BC, ADIFF, ANEU, CMP, GFR, ERDS ####[address] [address] Eosinophils/100 WBC Auto (Bld) 1.3 % Normal 0.0-6.0 [facility] ([place] Comment on above: Performed By: #### C BC, ADIFF, ANEU, CMP, GFR, ERDS ####[address] [address] Lymphocytes Auto #/vol (Bld) 2.30 10 3/mcL Normal 0.90-4.32 [facility] ([place]) Comment on above: Performed By: #### C BC, ADIFF, ANEU, CMP, GFR, ERDS ####[address] [address] Lymphocytes/100 WBC Auto (Bld) 43.0 % High 20.0-40.0 [facility] ([place]) Comment on above: Performed By: #### C BC, ADIFF, ANEU, CMP, GFR, ERDS ####[address] [address] Monocytes/100 WBC Auto (Bld) 10.2 % Normal 2.0-13.0 [facility] ([place]) Comment on above: Performed By: #### C BC, ADIFF, ANEU, CMP, GFR, ERDS ####[address] [address] Neutrophils/100 WBC Auto (Bld) 44.5 % Low 50.0-75.0 [facility] ([place] Comment on above: Performed By: #### C BC, ADIFF, ANEU, CMP, GFR, ERDS ####[address] [address] .GFRon 10-16-2018 GFR >60 Normal [facility] ([place]) Comment on above: Result Comment: GFR Population mean for , Non- Americans Ages 20-29 = 116 mL/min/1.73 sq.m. Ages 30-39 = 107 mL/min/1.73 sq.m. Ages 40-49 = 99 mL/min/1.73 sq.m. Ages 50-59 = 93 mL/min/1.73 sq.m. Ages 60-69 = 85 mL/min/1.73 sq.m. Ages 70+ = 75 mL/min/1.73 sq.m.Chronic Kidney Disease: Less than 60 mL/min/1.73 square metersEnd Stage Renal Disease: Less than 15 mL/min/1.73 square meters Performed By: #### C BC, ADIFF, ANEU, CMP, GFR, ERDS ####[address] [address] GFR Non- >60 Normal [facility] ([place] Comment on above: Result Comment: GFR Population mean for , Non- Americans Ages 20-29 = 116 mL/min/1.73 sq.m. Ages 30-39 = 107 mL/min/1.73 sq.m. Ages 40-49 = 99 mL/min/1.73 sq.m. Ages 50-59 = 93 mL/min/1.73 sq.m. Ages 60-69 = 85 mL/min/1.73 sq.m. Ages 70+ = 75 mL/min/1.73 sq.m.Chronic Kidney Disease: Less than 60 mL/min/1.73 square metersEnd Stage Renal Disease: Less than 15 mL/min/1.73 square meters Performed By: #### C BC, ADIFF, ANEU, CMP, GFR, ERDS ####[place] [address] .NEUABSon 10-16-2018 Neutrophil, Absolute 2.40 10 3/mcL Normal 2.25-8.10 A [facility] ([place]) Comment on above: Performed By: #### C BC, ADIFF, ANEU, CMP, GFR, ERDS ####[place] [address] CBCon 10-16-2018 Erythrocyte distribution width Auto Ratio (RBC) 13.0 % Normal 11.5-15.5 [facility] ([place] Comment on above: Performed By: #### C BC, ADIFF, ANEU, CMP, GFR, ERDS ####[place] [address] Hematocrit Auto Volume Fraction (Bld) 39.7 % Normal 34.0-46.0 [facility] ([place] Comment on above: Performed By: #### C BC, ADIFF, ANEU, CMP, GFR, ERDS ####[place] [address] Hemoglobin mass conc (Bld) 13.5 G/dL Normal 12.0-16.0 [facility] ([place] Comment on above: Performed By: #### C BC, ADIFF, ANEU, CMP, GFR, ERDS ####[place] [address] MCH Auto Entitic mass (RBC) 29.8 pg Normal 27.0-33.0 [facility] ([place] Comment on above: Performed By: #### C BC, ADIFF, ANEU, CMP, GFR, ERDS ####[place] [address] MCHC Auto mass conc (RBC) 33.9 G/dL Normal 32.0-36.0 [facility] ([place] Comment on above: Performed By: #### C BC, ADIFF, ANEU, CMP, GFR, ERDS ####[place] [address] MCV Auto Entitic volume (RBC) 88.1 fL Normal 80.0-99.0 [facility] ([place] Comment on above: Performed By: #### C BC, ADIFF, ANEU, CMP, GFR, ERDS ####[place] [address] Platelet mean volume Auto Entitic volume (Bld) 6.7 fL Normal 6.6-10.5 [facility] ([place] Comment on above: Performed By: #### C BC, ADIFF, ANEU, CMP, GFR, ERDS ####[place] [address] Platelets Auto #/vol (Bld) 261 10 3/mcL Normal 150-450 [facility] ([place] Comment on above: Performed By: #### C BC, ADIFF, ANEU, CMP, GFR, ERDS ####[place] [address] RBC Auto #/vol (Bld) 4.51 10 6/mcL Normal 4.10-5.30 A [facility] ([place]) Comment on above: Performed By: #### C BC, ADIFF, ANEU, CMP, GFR, ERDS ####[place] [address] WBC Auto #/vol (Bld) 5.40 10 3/mcL Normal 4.50-10.80 A [facility] ([place]) Comment on above: Performed By: #### C BC, ADIFF, ANEU, CMP, GFR, ERDS ####[place] [address] CMPon 10-16-2018 Albumin/Globulin mass ratio 0.8 {ratio} Low 0.9-1.6 [facility] ([place] Comment on above: Performed By: #### C BC, ADIFF, ANEU, CMP, GFR, ERDS ####[place] [address] ALP enzyme act/vol 68 U/L Normal 38-126 [facility] ([place]) Comment on above: Performed By: #### C BC, ADIFF, ANEU, CMP, GFR, ERDS ####[place] [address] Bili Total 0.1 mg/dL Low 0.2-1.2 [facility] ([place] Comment on above: Performed By: #### C BC, ADIFF, ANEU, CMP, GFR, ERDS ####[place] [address] Creatinine mass conc 0.68 mg/dL Normal 0.50-1.20 [facility] ([place] Comment on above: Performed By: #### C BC, ADIFF, ANEU, CMP, GFR, ERDS ####[place] [address] Globulin Calculated mass conc (S) 4.1 G/dL High 1.5-3.8 [facility] ([place] Comment on above: Performed By: #### C BC, ADIFF, ANEU, CMP, GFR, ERDS ####[place] [address] Protein mass conc 7.4 G/dL Normal 6.0-8.5 [facility] ([place] Comment on above: Performed By: #### C BC, ADIFF, ANEU, CMP, GFR, ERDS ####[place] [address] Urea nitrogen/Creatinine mass ratio 22.1 ratio High 10.0-22.0 [facility] ([place] Comment on above: Performed By: #### C BC, ADIFF, ANEU, CMP, GFR, ERDS ####[place] [address] Albumin mass conc 3.3 G/dL Normal 3.2-4.8 [facility] ([place] Comment on above: Performed By: #### C BC, ADIFF, ANEU, CMP, GFR, ERDS ####[address] [address] ALT enzyme act/vol 19 U/L Normal 10-49 [facility] ([place] Comment on above: Performed By: #### C BC, ADIFF, ANEU, CMP, GFR, ERDS ####[address] [address] AST enzyme act/vol 15 U/L Normal 8-34 [facility] ([place] Comment on above: Performed By: #### C BC, ADIFF, ANEU, CMP, GFR, ERDS ####[place] [address] Calcium mass conc 8.5 mg/dL Normal 8.4-10.1 [facility] ([place] Comment on above: Performed By: #### C BC, ADIFF, ANEU, CMP, GFR, ERDS ####[place] [address] Chloride molar conc 105 mmol/L Normal 98-110 [facility] ([place]) Comment on above: Performed By: #### C BC, ADIFF, ANEU, CMP, GFR, ERDS ####[place] [address] CO2 molar conc 30 mmol/L Normal 22-32 [facility] ([place] Comment on above: Performed By: #### C BC, ADIFF, ANEU, CMP, GFR, ERDS ####[place] [address] Electrolyte Balance 6.0 mEq/L Normal 4.0-15.0 [facility] ([place]) Comment on above: Performed By: #### C BC, ADIFF, ANEU, CMP, GFR, ERDS ####[place] [address] Glucose mass conc 109 mg/dL Normal 70-110 [facility] ([place] Comment on above: Performed By: #### C BC, ADIFF, ANEU, CMP, GFR, ERDS ####[place] [address] Potassium molar conc 4.1 mmol/L Normal 3.5-5.0 [facility] ([place] Comment on above: Performed By: #### C BC, ADIFF, ANEU, CMP, GFR, ERDS ####[place] [address] Sodium molar conc 141 mmol/L Normal 136-145 [facility] ([place] Comment on above: Performed By: #### C BC, ADIFF, ANEU, CMP, GFR, ERDS ####[place] [address] Urea nitrogen mass conc 15.0 mg/dL Normal 8.0-22.0 [facility] ([place] Comment on above: Performed By: #### C BC, ADIFF, ANEU, CMP, GFR, ERDS ####[place] [address] ERDSon 10-16-2018 Acetaminophen mass conc <2.0 Low 10.0-30.0 [facility] ([place] Comment on above: Performed By: #### C BC, ADIFF, ANEU, CMP, GFR, ERDS ####[place] [address] ER Drug Screen (s) Negative Normal [facility] ([place] Comment on above: Performed By: #### C BC, ADIFF, ANEU, CMP, GFR, ERDS ####[place] [address] ER Drug Screen Interp Serum shows no joaquina dence of drugs routinely screened Invalid Interpretation Code [facility] ([place] Comment on above: Performed By: #### C BC, ADIFF, ANEU, CMP, GFR, ERDS ####[place] [address] ER Serum Drugs Screened: See Below Normal [facility] ([place] Comment on above: Result Comment: This drug screen is a presumptive screening only. No confirmation will be performed unless requested.Drugs included in the ER serum drug screen are: ThresholdEthanol 10.0 mg/dLSalicylate 2.0 mg/dLAcetaminophen 2.0 mcg/mLTricyclic Antidepressants 300 ng/mLTesting has been performed FOR MEDICAL PURPOSES ONLY. Performed By: #### C BC, ADIFF, ANEU, CMP, GFR, ERDS ####[place] [address] Salicylate Lvl (ds) <2.0 Low 10.0-25.0 [facility] ([place]) Comment on above: Performed By: #### C BC, ADIFF, ANEU, CMP, GFR, ERDS ####[place] [address] TCA (s) Negative Normal [facility] ([place] Comment on above: Performed By: #### C BC, ADIFF, ANEU, CMP, GFR, ERDS ####[facility] [place] [id number] Ethanol Level <10.0 Normal [facility] ([place] Comment on above: Performed By: #### C BC, ADIFF, ANEU, CMP, GFR, ERDS ####[facility] [place] [id number] Culture, urine Bacteria identified Cx Nom (U) Positive [facility] Work Phone: No Panel Information Enteric Bacteriology [facility] Work Phone: Vital Signs Date Time Vital Sign Value Performing Clinician Facility 04-26-2025 16:12-0400 Body mass index (BMI) [Ratio] 24.64 kg/m2 Rosie Sterling MD Work Phone: [facility] 04-26-2025 16:12-0400 Body weight 63.1 kg Rosie Sterling MD Work Phone: [facility] 04-26-2025 16:12-0400 Diastolic blood pressure 86 mm[Hg] Rosie Sterling MD Work Phone: [facility] 04-26-2025 16:12-0400 Systolic blood pressure 150 mm[Hg] Rosie Sterling MD Work Phone: [facility] 04-20-2025 11:00-0400 Diastolic blood pressure 78 mm[Hg] Alka Sheppard PT Work Phone: [facility] Comment on above: taken at end of session, L UE, seated 04-20-2025 11:00-0400 Heart rate 78 /min Alka Sheppard PT Work Phone: [facility] 04-20-2025 11:00-0400 Systolic blood pressure 138 mm[Hg] Alka Sheppard PT Work Phone: [facility] Comment on above: taken at end of session, L UE, seated 01-25-2025 16:26-0400 Body height 160 cm Rosie Sterling MD Work Phone: [facility] 01-25-2025 16:26-0400 Body mass index (BMI) [Ratio] 24.45 kg/m2 Rosie Sterling MD Work Phone: [facility] 01-25-2025 16:26-0400 Body weight 62.6 kg Rosie Sterling MD Work Phone: [facility] 01-25-2025 16:26-0400 Diastolic blood pressure 80 mm[Hg] Rosie Sterling MD Work Phone: [facility] 01-25-2025 16:26-0400 Systolic blood pressure 135 mm[Hg] Rosie Sterling MD Work Phone: [facility] 01-08-2025 10:41-0500 Body height 160.[address] Sumanth Krause MD Work Phone: [facility] 01-08-2025 10:41-0500 Body mass index (BMI) [Ratio] 23.4 kg/m2 Dr. Sumanth Krause MD Work Phone: [facility] 01-08-2025 10:41-0500 Body temperature 98.3 [degF] Dr. Sumanth Krause MD Work Phone: [facility] 01-08-2025 10:41-0500 Body weight 60.[address] Sumanth Krause MD Work Phone: [facility] 01-08-2025 10:41-0500 Diastolic blood pressure 66 mm[Hg] Dr. Sumanth Krause MD Work Phone: [facility] 01-08-2025 10:41-0500 Heart rate 79 /min Dr. Sumanth Krause MD Work Phone: [facility] 01-08-2025 10:41-0500 Respiratory rate 16 /min Dr. Sumanth Krause MD Work Phone: [facility] 01-08-2025 10:41-0500 SaO2% (BldA) [Mass fraction] 98 % Dr. Sumanth Krause MD Work Phone: [facility] 01-08-2025 10:41-0500 Systolic blood pressure 124 mm[Hg] Dr. Sumanth Krause MD Work Phone: [facility] 12-22-2024 15:00-0500 Diastolic blood pressure 95 mm[Hg] Dr. Sumanth Krause MD Work Phone: [facility] 12-22-2024 15:00-0500 Heart rate 87 /min Dr. Sumanth Krause MD Work Phone: [facility] 12-22-2024 15:00-0500 Respiratory rate 19 /min Dr. Sumanth Krause MD Work Phone: [facility] 12-22-2024 15:00-0500 SaO2% (BldA) [Mass fraction] 99 % Dr. Sumanth Krause MD Work Phone: [facility] 12-22-2024 15:00-0500 Systolic blood pressure 157 mm[Hg] Dr. Sumanth Krause MD Work Phone: [facility] 12-22-2024 14:48-0500 Body temperature 98 [degF] Dr. Sumanth Krause MD Work Phone: [facility] 12-22-2024 09:50-0500 Body mass index (BMI) [Ratio] 23 kg/m2 Dr. Sumanth Krause MD Work Phone: [facility] 12-22-2024 09:50-0500 Body weight 58.[address] Sumanth Krause MD Work Phone: [facility] 12-16-2024 13:33-0500 Body height 160 cm Rosie Sterling MD Work Phone: [facility] 12-16-2024 13:33-0500 Body mass index (BMI) [Ratio] 24.06 kg/m2 Rosie Sterling MD Work Phone: [facility] 12-16-2024 13:33-0500 Body weight 61.6 kg Rosie Sterling MD Work Phone: [facility] 12-16-2024 13:33-0500 Diastolic blood pressure 88 mm[Hg] Rosie Sterling MD Work Phone: [facility] 12-16-2024 13:33-0500 Systolic blood pressure 128 mm[Hg] Rosie Sterling MD Work Phone: [facility] 11-18-2024 13:09-0500 Body mass index (BMI) [Ratio] 23.9 kg/m2 Dr. Sumanth Krause MD Work Phone: [facility] 11-18-2024 13:09-0500 Body weight 61.[address] Sumanth Krause MD Work Phone: [facility] 11-18-2024 13:09-0500 Diastolic blood pressure 86 mm[Hg] Dr. Sumanth Krause MD Work Phone: [facility] 11-18-2024 13:09-0500 Heart rate 89 /min Dr. Sumanth Krause MD Work Phone: [facility] 11-18-2024 13:09-0500 Respiratory rate 16 /min Dr. Sumanth Krause MD Work Phone: [facility] 11-18-2024 13:09-0500 Systolic blood pressure 151 mm[Hg] Dr. Sumanth Krause MD Work Phone: [facility] 10-19-2024 16:50-0500 Diastolic blood pressure 96 mm[Hg] Estrellita Ferreira MD Work Phone: [facility] 10-19-2024 16:50-0500 Heart rate 80 /min Estrellita Ferreira MD Work Phone: [facility] 10-19-2024 16:50-0500 Respiratory rate 16 /min Estrellita Ferreira MD Work Phone: [facility] 10-19-2024 16:50-0500 SaO2% (BldA) [Mass fraction] 100 % Estrellita Ferreira MD Work Phone: [facility] 10-19-2024 16:50-0500 Systolic blood pressure 155 mm[Hg] Estrellita Ferreira MD Work Phone: [facility] 10-19-2024 16:02-0500 Body height 160 cm Estrellita Ferreira MD Work Phone: [facility] 10-19-2024 16:02-0500 Body mass index (BMI) [Ratio] 22.85 kg/m2 Estrellita Ferreira MD Work Phone: [facility] 10-19-2024 16:02-0500 Body temperature 96.8 [degF] Estrellita Ferreira MD Work Phone: [facility] 10-19-2024 16:02-0500 Body weight 58.51 kg Estrellita Ferreira MD Work Phone: [facility] 09-29-2024 13:38-0500 Body mass index (BMI) [Ratio] 23.77 kg/m2 Kathie Ferreira MD Work Phone: [facility] 09-29-2024 13:38-0500 Body weight 60.33 kg Kathie Ferreira MD Work Phone: [facility] 09-29-2024 13:38-0500 Diastolic blood pressure 78 mm[Hg] Kathie Ferreira MD Work Phone: [facility] 09-29-2024 13:38-0500 Systolic blood pressure 112 mm[Hg] Kathie Ferreira MD Work Phone: [facility] 08-17-2024 10:28-0400 Diastolic blood pressure 73 mm[Hg] Lizzy High MD Work Phone: [facility] 08-17-2024 10:28-0400 Respiratory rate 16 /min Lizzy High MD Work Phone: [facility] 08-17-2024 10:28-0400 Systolic blood pressure 126 mm[Hg] Lizzy High MD Work Phone: [facility] 08-17-2024 09:54-0400 Heart rate 80 /min Lizzy High MD Work Phone: [facility] 08-17-2024 09:54-0400 SaO2% (BldA) [Mass fraction] 100 % Lizzy High MD Work Phone: [facility] 08-17-2024 08:59-0400 Body mass index (BMI) [Ratio] 23.37 kg/m2 Lizzy High MD Work Phone: [facility] 08-17-2024 08:59-0400 Body temperature 97.7 [degF] Lizzy High MD Work Phone: [facility] 08-17-2024 08:59-0400 Body weight 59.3 kg Lizzy High MD Work Phone: [facility] 08-11-2024 14:29-0400 Body height 159.3 cm Kathie Ferreira MD Work Phone: [facility] 08-11-2024 14:29-0400 Body mass index (BMI) [Ratio] 23.38 kg/m2 Kathie Ferreira MD Work Phone: [facility] 08-11-2024 14:29-0400 Body weight 59.33 kg Kathie Ferreira MD Work Phone: [facility] 08-11-2024 14:29-0400 Diastolic blood pressure 76 mm[Hg] Kathie Ferreira MD Work Phone: [facility] 08-11-2024 14:29-0400 Systolic blood pressure 124 mm[Hg] Kathie Ferreira MD Work Phone: [facility] 08-09-2024 14:57-0400 Body height 160 cm Rosieefra Dossic PA-C Work Phone: [facility] 08-09-2024 14:57-0400 Body mass index (BMI) [Ratio] 22.67 kg/m2 Rosie Sankovic PA-C Work Phone: [facility] 08-09-2024 14:57-0400 Body weight 58.06 kg Rosie Sanaftabic PA-C Work Phone: [facility] 06-17-2024 16:27-0400 Body height 160 cm Estrellita Ferreira MD Work Phone: [facility] 06-17-2024 16:27-0400 Body mass index (BMI) [Ratio] 23.38 kg/m2 Estrellita Ferreira MD Work Phone: [facility] 06-17-2024 16:27-0400 Body temperature 97.5 [degF] Estrellita Ferreira MD Work Phone: [facility] 06-17-2024 16:27-0400 Body weight 59.88 kg Estrellita Ferreira MD Work Phone: [facility] 06-17-2024 16:27-0400 Diastolic blood pressure 83 mm[Hg] Estrellita Ferreira MD Work Phone: [facility] 06-17-2024 16:27-0400 Heart rate 97 /min Estrellita Ferreira MD Work Phone: [facility] 06-17-2024 16:27-0400 SaO2% (BldA) [Mass fraction] 99 % Estrellita Ferreira MD Work Phone: [facility] 06-17-2024 16:27-0400 Systolic blood pressure 153 mm[Hg] Estrellita Ferreira MD Work Phone: [facility] 02-20-2024 17:40-0400 Diastolic blood pressure 85 mm[Hg] Estrellita Ferreira MD Work Phone: [facility] 02-20-2024 17:40-0400 Heart rate 80 /min Estrellita Ferreira MD Work Phone: [facility] 02-20-2024 17:40-0400 Respiratory rate 16 /min Estrellita Ferreira MD Work Phone: [facility] 02-20-2024 17:40-0400 SaO2% (BldA) [Mass fraction] 98 % Estrellita Ferreira MD Work Phone: [facility] 02-20-2024 17:40-0400 Systolic blood pressure 142 mm[Hg] Estrellita Ferreira MD Work Phone: [facility] 02-20-2024 14:54-0400 Body height 160 cm Estrellita Ferreira MD Work Phone: [facility] 02-20-2024 14:54-0400 Body temperature 97.2 [degF] Estrellita Ferreira MD Work Phone: [facility] 02-20-2024 14:54-0400 Body weight 58.97 kg Estrellita Ferreira MD Work Phone: [facility] 02-09-2024 09:51-0400 Body height 160 cm Estrellita Ferreira MD Work Phone: [facility] 02-09-2024 09:51-0400 Body weight 60.78 kg Estrellita Ferreira MD Work Phone: [facility] 02-09-2024 09:51-0400 Diastolic blood pressure 86 mm[Hg] Estrellita Ferreira MD Work Phone: [facility] 02-09-2024 09:51-0400 Heart rate 90 /min Estrellita Ferreira MD Work Phone: [facility] 02-09-2024 09:51-0400 SaO2% (BldA) [Mass fraction] 100 % Estrellita Ferreira MD Work Phone: [facility] 02-09-2024 09:51-0400 Systolic blood pressure 149 mm[Hg] Estrellita Ferreira MD Work Phone: [facility] 12-15-2023 13:08-0500 Body height 160.[address] Sumanth Krause Work Phone: [facility] 12-15-2023 13:08-0500 Body mass index (BMI) [Ratio] 23.9 kg/m2 Dr. Sumanth Krause Work Phone: [facility] 12-15-2023 13:08-0500 Body weight 61.[address] Sumanth Krause Work Phone: [facility] 12-15-2023 13:08-0500 Diastolic blood pressure 77 mm[Hg] Dr. Sumanth Krause Work Phone: [facility] 12-15-2023 13:08-0500 Heart rate 91 /min Dr. Sumanth Krause Work Phone: [facility] 12-15-2023 13:08-0500 SaO2% (BldA) [Mass fraction] 98 % Dr. Sumanth Krause Work Phone: [facility] 12-15-2023 13:08-0500 Systolic blood pressure 159 mm[Hg] Dr. Sumanth Krause Work Phone: [facility] 10-30-2023 19:51-0500 Diastolic blood pressure 65 mm[Hg] Dr. Sumanth Krause Work Phone: [facility] 10-30-2023 19:51-0500 Heart rate 87 /min Dr. Sumanth Krause Work Phone: [facility] 10-30-2023 19:51-0500 Respiratory rate 18 /min Dr. Sumanth Krause Work Phone: [facility] 10-30-2023 19:51-0500 SaO2% (BldA) [Mass fraction] 98 % Dr. Sumanth Krause Work Phone: [facility] 10-30-2023 19:51-0500 Systolic blood pressure 142 mm[Hg] Dr. Sumanth Krause Work Phone: [facility] 10-30-2023 16:38-0500 Body height 160.[address] Sumanth Krause Work Phone: [facility] 10-30-2023 16:38-0500 Body mass index (BMI) [Ratio] 23.8 kg/m2 Dr. Sumanth Krause Work Phone: [facility] 10-30-2023 16:38-0500 Body temperature 98.3 [degF] Dr. Sumanth Krause Work Phone: [facility] 10-30-2023 16:38-0500 Body weight 60.[address] Sumanth Krause Work Phone: [facility] 09-16-2023 12:45-0400 Body mass index (BMI) [Ratio] 23.2 kg/m2 Dr. Sumanth Krause Work Phone: [facility] 09-16-2023 12:45-0400 Body weight 59.[address] Sumanth Krause Work Phone: [facility] 09-16-2023 12:45-0400 Diastolic blood pressure 89 mm[Hg] Dr. Sumanth Krause Work Phone: [facility] 09-16-2023 12:45-0400 Heart rate 93 /min Dr. Smuanth Krause Work Phone: [facility] 09-16-2023 12:45-0400 SaO2% (BldA) [Mass fraction] 96 % Dr. Sumanth Krause Work Phone: [facility] 09-16-2023 12:45-0400 Systolic blood pressure 146 mm[Hg] Dr. Sumanth Krause Work Phone: [facility] 08-06-2023 14:26-0400 Body height 160 cm Kathie Ferreira MD Work Phone: [facility] 08-06-2023 14:26-0400 Body weight 58.51 kg Kathie Ferreira MD Work Phone: [facility] 08-06-2023 14:26-0400 Diastolic blood pressure 82 mm[Hg] Kathie Ferreira MD Work Phone: [facility] 08-06-2023 14:26-0400 Systolic blood pressure 124 mm[Hg] Kathie Ferreira MD Work Phone: [facility] 07-17-2023 13:59-0400 Body height 160.[address] Sumanth Krause Work Phone: [facility] 07-17-2023 13:59-0400 Body mass index (BMI) [Ratio] 22.6 kg/m2 Dr. Sumanth Krause Work Phone: [facility] 07-17-2023 13:59-0400 Body weight 58.[address] Sumanth Krause Work Phone: [facility] 07-17-2023 13:59-0400 Diastolic blood pressure 79 mm[Hg] Dr. Sumanth Krause Work Phone: [facility] 07-17-2023 13:59-0400 Heart rate 83 /min Dr. Sumanth Krause Work Phone: [facility] 07-17-2023 13:59-0400 Respiratory rate 18 /min Dr. Sumanth Krause Work Phone: [facility] 07-17-2023 13:59-0400 SaO2% (BldA) [Mass fraction] 96 % Dr. Sumanth Krause Work Phone: [facility] 07-17-2023 13:59-0400 Systolic blood pressure 122 mm[Hg] Dr. Sumanth Krause Work Phone: [facility] 06-04-2023 18:35-0400 Diastolic blood pressure 86 mm[Hg] Dr. Sumanth Krause Work Phone: [facility] 06-04-2023 18:35-0400 Heart rate 78 /min Dr. Sumanth Krause Work Phone: [facility] 06-04-2023 18:35-0400 Respiratory rate 18 /min Dr. Sumanth Krause Work Phone: [facility] 06-04-2023 18:35-0400 SaO2% (BldA) [Mass fraction] 96 % Dr. Sumanth Krause Work Phone: [facility] 06-04-2023 18:35-0400 Systolic blood pressure 140 mm[Hg] Dr. Sumanth Krause Work Phone: [facility] 06-04-2023 16:05-0400 Body height 160.[address] Sumanth Krause Work Phone: [facility] 06-04-2023 16:05-0400 Body mass index (BMI) [Ratio] 22.8 kg/m2 Dr. Sumanth Krause Work Phone: [facility] 06-04-2023 16:05-0400 Body temperature 97.4 [degF] Dr. Sumanth Krause Work Phone: [facility] 06-04-2023 16:05-0400 Body weight 58.[address] Sumanth Krause Work Phone: [facility] 04-20-2023 15:47-0400 Body height 160.[address] Sumanth Krause Work Phone: [facility] 04-20-2023 15:47-0400 Body mass index (BMI) [Ratio] 22.8 kg/m2 Dr. Sumanth Krause Work Phone: [facility] 04-20-2023 15:47-0400 Body temperature 97.8 [degF] Dr. Sumanth Krause Work Phone: [facility] 04-20-2023 15:47-0400 Body weight 58.[address] Sumanth Krause Work Phone: [facility] 04-20-2023 15:47-0400 Diastolic blood pressure 82 mm[Hg] Dr. Sumanth Krause Work Phone: [facility] 04-20-2023 15:47-0400 Heart rate 89 /min Dr. Sumanth Krause Work Phone: [facility] 04-20-2023 15:47-0400 Respiratory rate 16 /min Dr. Sumanth Krause Work Phone: [facility] 04-20-2023 15:47-0400 SaO2% (BldA) [Mass fraction] 97 % Dr. Sumanth Krause Work Phone: [facility] 04-20-2023 15:47-0400 Systolic blood pressure 157 mm[Hg] Dr. Sumanth Krause Work Phone: [facility] 01-16-2023 13:11-0500 Body mass index (BMI) [Ratio] 23 kg/m2 Dr. Sumanth Krause Work Phone: [facility] 01-16-2023 13:11-0500 Body weight 59.[address] Sumanth Krause Work Phone: [facility] 01-16-2023 13:11-0500 Diastolic blood pressure 86 mm[Hg] Dr. Sumanth Krause Work Phone: [facility] 01-16-2023 13:11-0500 Heart rate 91 /min Dr. Sumanth Krause Work Phone: [facility] 01-16-2023 13:11-0500 Respiratory rate 18 /min Dr. Sumanth Krause Work Phone: [facility] 01-16-2023 13:11-0500 SaO2% (BldA) [Mass fraction] 98 % Dr. Sumanth Krause Work Phone: [facility] 01-16-2023 13:11-0500 Systolic blood pressure 149 mm[Hg] Dr. Sumanth Krause Work Phone: [facility] 06-04-2022 01:23-0400 Diastolic blood pressure 95 mm[Hg] Dr. Sumanth Krause Work Phone: [facility] Work Phone: 06-04-2022 01:23-0400 Heart rate 69 /min Dr. Sumanth Krause Work Phone: [facility] Work Phone: 06-04-2022 01:23-0400 Respiratory rate 18 /min Dr. Sumanth Krause Work Phone: [facility] Work Phone: 06-04-2022 01:23-0400 SaO2% (BldA) [Mass fraction] 100 % Dr. Sumanth Krause Work Phone: [facility] Work Phone: 06-04-2022 01:23-0400 Systolic blood pressure 145 mm[Hg] Dr. Sumanth Krause Work Phone: [facility] Work Phone: 06-03-2022 21:47-0400 Body height 160.[address] Sumanth Krause Work Phone: [facility] Work Phone: 06-03-2022 21:47-0400 Body mass index (BMI) [Ratio] 23.3 kg/m2 Dr. Sumanth Krause Work Phone: [facility] Work Phone: 06-03-2022 21:47-0400 Body temperature 97.3 [degF] Dr. Sumanth Krause Work Phone: [facility] Work Phone: 06-03-2022 21:47-0400 Body weight 59.[address] Sumanth Krause Work Phone: [facility] Work Phone: 03-16-2022 17:17-0400 Diastolic blood pressure 99 mm[Hg] Dr. Sumanth Krause Work Phone: [facility] Work Phone: 03-16-2022 17:17-0400 Heart rate 83 /min Dr. Sumanth Krause Work Phone: [facility] Work Phone: 03-16-2022 17:17-0400 Respiratory rate 14 /min Dr. Sumanth Krause Work Phone: [facility] Work Phone: 03-16-2022 17:17-0400 Systolic blood pressure 147 mm[Hg] Dr. Sumanth Krause Work Phone: [facility] Work Phone: 03-16-2022 15:11-0400 Body height 160.[address] Sumanth Krause Work Phone: [facility] Work Phone: 03-16-2022 15:11-0400 Body mass index (BMI) [Ratio] 23.3 kg/m2 Dr. Sumanth Krause Work Phone: [facility] Work Phone: 03-16-2022 15:11-0400 Body temperature 97.2 [degF] Dr. Sumanth Krause Work Phone: [facility] Work Phone: 03-16-2022 15:11-0400 Body weight 59.[address] Sumanth Krause Work Phone: [facility] Work Phone: 03-16-2022 15:11-0400 SaO2% (BldA) [Mass fraction] 98 % Dr. Sumanth Krause Work Phone: [facility] Work Phone: 02-13-2022 11:50-0400 Body temperature 97.2 [degF] Dr. Sumanth Krause Work Phone: [facility] Work Phone: 02-13-2022 11:50-0400 Diastolic blood pressure 74 mm[Hg] Dr. Sumanth Krause Work Phone: [facility] Work Phone: 02-13-2022 11:50-0400 Heart rate 77 /min Dr. Sumanth Krause Work Phone: [facility] Work Phone: 02-13-2022 11:50-0400 Respiratory rate 16 /min Dr. Sumanth Krause Work Phone: [facility] Work Phone: 02-13-2022 11:50-0400 SaO2% (BldA) [Mass fraction] 100 % Dr. Sumanth Krause Work Phone: [facility] Work Phone: 02-13-2022 11:50-0400 Systolic blood pressure 124 mm[Hg] Dr. Sumanth Krause Work Phone: [facility] Work Phone: 02-13-2022 10:18-0400 Body height 160.[address] Sumanth Krause Work Phone: [facility] Work Phone: 02-13-2022 10:18-0400 Body mass index (BMI) [Ratio] 22.2 kg/m2 Dr. Sumanth Krause Work Phone: [facility] Work Phone: 02-13-2022 10:18-0400 Body weight [address] Sumanth Krause Work Phone: [facility] Work Phone: 12-25-2021 12:07-0500 Body mass index (BMI) [Ratio] 22.4 kg/m2 Dr. Sumanth Krause Work Phone: [facility] Work Phone: 12-25-2021 12:07-0500 Body weight 57.[address] Sumanth Krause Work Phone: [facility] Work Phone: 12-25-2021 12:07-0500 Diastolic blood pressure 81 mm[Hg] Dr. Sumanth Krause Work Phone: [facility] Work Phone: 12-25-2021 12:07-0500 Heart rate 92 /min Dr. Sumanth Krause Work Phone: [facility] Work Phone: 12-25-2021 12:07-0500 Respiratory rate 18 /min Dr. Sumanth Krause Work Phone: [facility] Work Phone: 12-25-2021 12:07-0500 SaO2% (BldA) [Mass fraction] 97 % Dr. Sumanth Krause Work Phone: [facility] Work Phone: 12-25-2021 12:07-0500 Systolic blood pressure 124 mm[Hg] Dr. Sumanth Krause Work Phone: [facility] Work Phone: 12-14-2021 21:45-0500 Diastolic blood pressure 89 mm[Hg] Dr. Sumanth Krause Work Phone: [facility] Work Phone: 12-14-2021 21:45-0500 Heart rate 90 /min Dr. Sumanth Krause Work Phone: [facility] Work Phone: 12-14-2021 21:45-0500 Respiratory rate 16 /min Dr. Sumanth Krause Work Phone: [facility] Work Phone: 12-14-2021 21:45-0500 SaO2% (BldA) [Mass fraction] 98 % Dr. Sumanth Krause Work Phone: [facility] Work Phone: 12-14-2021 21:45-0500 Systolic blood pressure 162 mm[Hg] Dr. Sumanth Krause Work Phone: [facility] Work Phone: 12-14-2021 16:00-0500 Body mass index (BMI) [Ratio] 22.4 kg/m2 Dr. Sumanth Krause Work Phone: [facility] Work Phone: 12-14-2021 16:00-0500 Body temperature 97.2 [degF] Dr. Sumanth Krause Work Phone: [facility] Work Phone: 12-14-2021 16:00-0500 Body weight 57.[address] Sumanth Krause Work Phone: [facility] Work Phone: 10-30-2021 16:34-0500 Diastolic blood pressure 66 mm[Hg] Dr. Sumanth Krause Work Phone: [facility] Work Phone: 10-30-2021 16:34-0500 Heart rate 92 /min Dr. Sumanth Krause Work Phone: [facility] Work Phone: 10-30-2021 16:34-0500 Respiratory rate 15 /min Dr. Sumanth Krause Work Phone: [facility] Work Phone: 10-30-2021 16:34-0500 SaO2% (BldA) [Mass fraction] 98 % Dr. Sumanth Krause Work Phone: [facility] Work Phone: 10-30-2021 16:34-0500 Systolic blood pressure 124 mm[Hg] Dr. Sumanth Krause Work Phone: [facility] Work Phone: 10-30-2021 14:09-0500 Body temperature 97.1 [degF] Dr. Sumanth Krause Work Phone: [facility] Work Phone: 10-30-2021 11:06-0500 Body mass index (BMI) [Ratio] 23 kg/m2 Dr. Sumanth Krause Work Phone: [facility] Work Phone: 10-30-2021 11:06-0500 Body weight 58.[address] Sumanth Krause Work Phone: [facility] Work Phone: Encounters Encounter Date Encounter Type Care Provider Facility Start: 08-04-2025 ambulatory Sumanth Evans y:[facility] Start: 07-28-2025 ambulatory SUMANTH KRAUSE Facilit y:[facility] Start: 07-28-2025 End: 07-28-2025 Subsequent hospital visit by physician [facility] Work Phone: Radiology Comment on above: Generalized abdomina l pain [R10.84] Start: 07-27-2025 End: 07-27-2025 [facility] Start: 07-27-2025 End: 07-27-2025 Telephone encounter Estrellita Ferreira MD Work Phone: Gastroenterology Comment on above: Question Start: 07-26-2025 End: 07-26-2025 ambulatory Estrellita Ferreira MD Work Phone: Gastroenterology Start: 07-26-2025 End: 07-26-2025 Patient encounter procedure Estrellita Ferreira MD Work Phone: Gastroenterology Comment on above: Appointment Start: 07-24-2025 End: 07-26-2025 ambulatory Estrellita Ferreira MD Work Phone: Gastroenterology Comment on above: Bloating Start: 07-20-2025 End: 07-20-2025 ambulatory Alka Sheppard PT Work Phone: [facility] Start: 07-20-2025 End: 07-20-2025 Coordination of care plan Alka Sheppard PT Work Phone: [facility] Comment on above: Muscular incoordinat ion (Primary Dx); Constipation, unspecified constipation type Start: 07-15-2025 End: 07-15-2025 ambulatory Estrellita Ferreira MD Work Phone: Gastroenterology Comment on above: Color of stool Start: 07-07-2025 End: 07-07-2025 [facility] Start: 07-07-2025 End: 07-07-2025 Manual pelvic examination Estrellita Ferreira MD Work Phone: Gastroenterology Comment on above: Rectal hemorrhage du e to chronic ulcerative proctitis (HCC) (Primary Dx); Pelvic floor dysfunction; Chronic constipation; Rectal bleeding; Bloating; Non-celiac gluten sensitivity; Constipation, unspecified constipation type; Gastro-esophageal reflux disease without esophagitis Start: 07-07-2025 End: 07-07-2025 Telemedicine consultation with patient Estrellita Ferreira MD Work Phone: Gastroenterology Start: 06-28-2025 End: 06-28-2025 ambulatory ALEJANDRA MEAD [facility] Start: 06-27-2025 End: 06-27-2025 ambulatory SUMANTH KRAUSE Facility:[facility] Start: 06-27-2025 End: 06-27-2025 ambulatory ALEJANDRA MEAD [facility] Start: 06-24-2025 End: 06-24-2025 ambulatory ALEJANDRA MEAD [facility] Start: 06-21-2025 End: 06-22-2025 ambulatory ALEJANDRA MEAD [facility] Start: 06-20-2025 End: 06-20-2025 ambulatory ALEJANDRA MEAD [facility] Start: 06-17-2025 End: 06-17-2025 ambulatory SUMANTH CAMERON JR [facility] Start: 06-13-2025 End: 06-14-2025 [facility] Start: 06-10-2025 End: 06-10-2025 ambulatory ALEJANDRA MEAD [facility] Start: 06-07-2025 End: 06-07-2025 ambulatory ALEJANDRA MEAD [facility] Start: 06-06-2025 End: 06-06-2025 ambulatory ALEJANDRA MEAD [facility] Start: 06-05-2025 End: 06-06-2025 Refill Estrellita Ferreira MD Work Phone: Gastroenterology Comment on above: Refill Request Start: 06-03-2025 End: 06-03-2025 Orders Only Xuan Echevarria MD Work Phone: [facility] Psychiatry Start: 05-31-2025 End: 05-31-2025 ambulatory BEN ESPAÑA [facility] Start: 05-30-2025 End: 05-30-2025 [facility] Start: 05-27-2025 End: 07-27-2025 Follow-up encounter Rosie Sterling MD Work Phone: Gynecology Start: 05-27-2025 End: 05-27-2025 ambulatory ALEJANDRA MEAD [facility] Start: 05-26-2025 End: 05-26-2025 ambulatory SUMANTH KRAUSE Facility:[facility] Start: 05-24-2025 End: 05-24-2025 [facility] Start: 05-23-2025 End: 05-23-2025 ambulatory ALEJANDRA MEAD [facility] Start: 05-19-2025 End: 05-19-2025 ambulatory ALEJANDRA MEAD [facility] Start: 05-17-2025 End: 05-17-2025 ambulatory SUMANTH CAMERON JR [facility] Start: 05-16-2025 End: 05-16-2025 ambulatory ALEJANDRA MEAD [facility] Start: 05-13-2025 End: 05-13-2025 [facility] Start: 05-10-2025 End: 05-10-2025 ambulatory XUAN ECHEVARRIA [facility] Start: 05-10-2025 End: 05-10-2025 ambulatory ALEJANDRA MEAD [facility] Start: 05-09-2025 End: 05-09-2025 [facility] Start: 05-06-2025 End: 05-06-2025 [facility] Start: 05-03-2025 End: 05-03-2025 ambulatory SHILOH RAPP [facility] Start: 05-02-2025 End: 05-04-2025 ambulatory Rosie Sterling MD Work Phone: Gynecology Comment on above: Shots Start: 04-29-2025 End: 04-29-2025 ambulatory ALEJANDRA MEAD [facility] Start: 04-26-2025 End: 04-26-2025 Patient encounter procedure Rosie Sterling MD Work Phone: Gynecology Comment on above: High-tone pelvic jamarcus or dysfunction Start: 04-26-2025 End: 04-26-2025 ambulatory SUMANTH KRAUSE Facility:[facility] Start: 04-26-2025 End: 04-26-2025 [facility] Start: 04-25-2025 End: 04-25-2025 [facility] Start: 04-22-2025 End: 04-22-2025 ambulatory SUMANTH CAMERON [facility] Start: 04-20-2025 End: 04-20-2025 ambulatory Alka Sheppard PT Work Phone: [facility] Start: 04-20-2025 End: 04-20-2025 Coordination of care plan Alka Sheppard PT Work Phone: [facility] Comment on above: Muscular incoordinat ion (Primary Dx); Constipation, unspecified constipation type Start: 04-19-2025 End: 04-19-2025 ambulatory SUMANTH [facility] Start: 04-18-2025 End: 04-18-2025 ambulatory [facility] Start: 04-15-2025 End: 04-15-2025 ambulatory ALEJANDRA MEAD [facility] Start: 04-14-2025 End: 04-14-2025 ambulatory [facility] Start: 04-14-2025 Non-patient / Non-visit Dr. Nelda hernandez MD -[facility] Start: 04-14-2025 End: 04-14-[address] Sumanth Krause MD Work Phone: [facility] Work Phone: Start: 04-14-2025 End: 04-14-2025 Patient encounter procedure Delores Burnett PA -[facility] Work Phone: Start: 04-14-2025 End: 04-14-2025 ambulatory Delores JIM Facility:[facility] Start: 04-12-2025 End: 04-12-2025 ambulatory [facility] Start: 04-06-2025 End: 04-06-[address] Sumanth Krause MD Work Phone: [facility] Work Phone: Start: 04-06-2025 End: 04-06-[address] Sumanth Krause MD -[facility] Work Phone: Start: 04-06-2025 End: 04-06-2025 ambulatory Sumanth Krause Facility:[facility] Start: 04-04-2025 End: 04-05-2025 ambulatory ALEJANDRA MEAD [facility] Start: 04-01-2025 End: 04-01-2025 ambulatory KACEY MEADE [facility] Start: 03-31-2025 End: 03-31-2025 ambulatory KACEY DESHAUN [facility] Start: 03-31-2025 End: 03-31-2025 ambulatory ALEJANDRA RICHTER [facility] Start: 03-30-2025 End: 03-30-2025 ambulatory KACEY MEADE [facility] Start: 03-30-2025 End: 03-30-2025 ambulatory SUMANTH CAMERON JR [facility] Start: 03-29-2025 End: 03-30-2025 ambulatory Kathie Ferreira MD Work Phone: OB/Gynecology Comment on above: Yenny Start: 03-28-2025 End: 03-28-2025 ambulatory SUMANTH CAMERON JR [facility] Start: 03-25-2025 End: 03-25-2025 ambulatory ALEJANDRA RICHTER [facility] Start: 03-23-2025 End: 03-23-2025 ambulatory ALEJANDRA RICHTER [facility] Start: 03-23-2025 End: 03-24-2025 ambulatory Alka Sheppard PT Work Phone: [facility] Start: 03-23-2025 End: 03-23-2025 Coordination of care plan Alka Sheppard PT Work Phone: [facility] Comment on above: Muscular incoordinat ion (Primary Dx); Constipation, unspecified constipation type Start: 03-22-2025 End: 03-22-2025 ambulatory ALEJANDRA RICHTER [facility] Start: 03-22-2025 End: 03-22-2025 ambulatory KACEY MEADE [facility] Start: 03-21-2025 End: 03-21-2025 ambulatory ALEJANDRA RICHTER [facility] Start: 03-21-2025 End: 03-21-2025 ambulatory SUMANTH CAMERON JR [facility] Start: 03-18-2025 End: 03-18-2025 ambulatory ALEJANDRA RICHTER [facility] Start: 03-17-2025 End: 03-17-2025 ambulatory KACEY MEADE [facility] Start: 03-17-2025 End: 03-17-2025 ambulatory SUMANTH CAMERON JR [facility] Start: 03-16-2025 End: 03-16-2025 ambulatory KACEY MEADE [facility] Start: 03-16-2025 End: 03-16-2025 ambulatory SUMANTH CAMERON JR [facility] Start: 03-14-2025 End: 03-14-2025 ambulatory WILLY BAUTISTA [facility] Start: 03-10-2025 End: 03-10-2025 ambulatory SUMANTH KRAUSE Facility:[facility] Start: 03-07-2025 End: 03-07-2025 ambulatory Alka Sheppard PT Work Phone: [facility] Start: 03-07-2025 End: 03-07-2025 Coordination of care plan Alka Sheppard PT Work Phone: [facility] Comment on above: Muscular incoordinat ion (Primary Dx); Constipation, unspecified constipation type Start: 03-03-2025 End: 05-03-2025 Follow-up encounter Kathie Ferreira MD Work Phone: OB/Gynecology Start: 03-02-2025 End: 03-02-[address] Sumanth Krause MD Work Phone: [facility] Work Phone: Start: 03-02-2025 End: 03-02-[address] Sumanth Krause MD -Laboratory, [place] Work Phone: Start: 03-02-2025 ambulatory SUMANTH KRAUSE Facilit y:[facility] Start: 03-02-2025 Encounter for gynecological examination (general) (routine) without abnormal findings SUMANTH KRAUSE [facility] Start: 03-02-2025 End: 03-02-2025 Patient encounter status [facility] Start: 03-02-2025 End: 03-02-2025 Subsequent hospital visit by physician Screen Mammo [facility] Mammogram Comment on above: Encounter for gyneco logical examination (general) (routine) without abnormal findings [Z01.419] Start: 03-02-2025 End: 03-02-2025 ambulatory Sumanth Talamantes Anabela Facility:[facility] Start: 02-18-2025 End: 02-24-2025 Evaluation and management of inpatient SUMANTH Albin ANABELA Facility:[facility] Start: 02-16-2025 End: 02-16-2025 ambulatory [facility] Facility:[facility] Start: 02-16-2025 End: 02-16-2025 Manual pelvic examination Estrellita Ferreira MD Work Phone: Gastroenterology Comment on above: Rectal hemorrhage du e to chronic ulcerative proctitis (HCC) (Primary Dx); Bloating; Pelvic floor dysfunction; Depression, unspecified depression type; Constipation due to outlet dysfunction Start: 02-16-2025 End: 02-16-2025 Telemedicine consultation with patient Estrellita Ferreira MD Work Phone: Gastroenterology Start: 02-07-2025 End: 02-07-2025 ambulatory Alka Sheppard PT Work Phone: [facility] Start: 02-07-2025 End: 02-07-2025 Coordination of care plan Alka Sheppard PT Work Phone: [facility] Comment on above: Muscular incoordinat ion (Primary Dx); Constipation, unspecified constipation type Start: 02-04-2025 End: 02-08-2025 ambulatory Rosie Sterling MD Work Phone: Gynecology Comment on above: Burning Start: 01-26-2025 End: 01-26-2025 ambulatory Rosie Sterling MD Work Phone: Gynecology Comment on above: Botox Vagional cream Start: 01-25-2025 End: 01-25-2025 Patient encounter procedure Rosie Sterling MD Work Phone: Gynecology Comment on above: High-tone pelvic jamarcus or dysfunction (Primary Dx) Start: 01-25-2025 End: 01-25-2025 ambulatory [facility] Facility:[facility] Start: 01-25-2025 End: 01-26-2025 Telephone encounter Rosie Sterling MD Work Phone: Gynecology Comment on above: Appointment Start: 01-24-2025 End: 01-24-2025 ambulatory Alka Sheppard PT Work Phone: [facility] Start: 01-24-2025 End: 01-24-2025 Coordination of care plan Alka Sheppard PT Work Phone: [facility] Comment on above: Muscular incoordinat ion (Primary Dx); Constipation, unspecified constipation type Start: 01-08-2025 End: 01-08-2025 Patient encounter procedure Tierney Valero 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 [facility] Work Phone: Start: 01-08-2025 End: 01-08-2025 ambulatory Tierney Valero [place] Start: 12-22-2024 End: 12-22-2024 Emergency department patient visit Dr. Carolyn Bower DO -Emergency Department Work Phone: Start: 12-20-2024 End: 12-20-2024 ambulatory Alka Sheppard PT Work Phone: [facility] Start: 12-20-2024 End: 12-20-2024 Coordination of care plan Alka Sheppard PT Work Phone: [facility] Comment on above: Muscular incoordinat ion (Primary Dx); Constipation, unspecified constipation type Start: 12-17-2024 End: 12-17-2024 Telephone encounter Rosie Sterling MD Work Phone: [facility] HB[facility] Comment on above: Insurance Authorizat ion (Prior auth delay) Start: 12-16-2024 End: 12-16-2024 ambulatory [facility] Facility:[facility] Start: 12-16-2024 End: 12-16-2024 Patient encounter procedure Rosie Sterling MD Work Phone: Gynecology Comment on above: High-tone pelvic jamarcus or dysfunction (Primary Dx); Vulvodynia; Dyspareunia in female; S/P hysterectomy Start: 12-14-2024 End: 12-14-2024 Patient encounter procedure Sumanth MARTINEZ -[facility] Work Phone: Start: 12-14-2024 End: 12-14-2024 ambulatory Sumanth Krause Facility:[facility] Start: 12-12-2024 End: 12-13-2024 ambulatory Estrellita Ferreira MD Work Phone: Gastroenterology Comment on above: Suppositories Start: 11-18-2024 End: 11-18-2024 Patient encounter procedure Sumanth MARTINEZ -[facility] Work Phone: Start: 11-18-2024 End: 11-18-2024 ambulatory Sumanth Krause [place] [place]: 11-12-2024 End: 11-18-2024 E-mail encounter from caregiver [facility] Start: 11-12-2024 End: 11-18-2024 Patient encounter procedure [facility] Comment on above: Consult to Chronic P elvic Pain Start: 11-11-2024 End: 11-12-2024 ambulatory Kathie Ferreira MD Work Phone: OB/Gynecology Comment on above: Cream Start: 11-08-2024 End: 11-11-2024 ambulatory Estrellita Ferreira MD Work Phone: Gastroenterology Comment on above: Blood in stool Start: 11-04-2024 End: 11-04-2024 Refill Kathie Ferreira MD Work Phone: OB/Gynecology Comment on above: Refill Request Start: 11-01-2024 End: 11-01-2024 ambulatory Alka Sheppard PT Work Phone: [facility] Start: 11-01-2024 End: 11-01-2024 Coordination of care plan Alka Sheppard PT Work Phone: [facility] Comment on above: Muscular incoordinat ion (Primary Dx); Constipation, unspecified constipation type Start: 10-21-2024 End: 10-21-2024 ambulatory [facility] Facility:[facility] Start: 10-21-2024 End: 10-21-2024 Manual pelvic examination Estrellita Ferreira MD Work Phone: Gastroenterology Comment on above: Bloating (Primary Dx ); Proctitis; Pelvic floor dysfunction Start: 10-21-2024 End: 10-21-2024 Telemedicine consultation with patient Estrellita Ferreira MD Work Phone: Gastroenterology Start: 10-19-2024 End: 10-19-2024 ambulatory [facility] Facility:[facility] Start: 10-19-2024 End: 10-19-2024 Subsequent hospital visit by physician Estrellita Ferreira MD Work Phone: Gastroenterology Comment on above: Proctitis [K62.89] Start: 10-15-2024 End: 10-18-2024 ambulatory Estrellita Ferreira MD Work Phone: Gastroenterology Comment on above: Scope Start: 10-10-2024 End: 10-11-2024 ambulatory Kathie Ferreira MD Work Phone: OB/Gynecology Comment on above: Burning Start: 10-06-2024 End: 10-06-2024 ambulatory Estrellita Ferreira MD Work Phone: Gastroenterology Comment on above: Colonoscopy Start: 09-29-2024 End: 09-29-2024 ambulatory KATHIE FERREIRA Facility:[facility] Start: 09-29-2024 End: 09-29-2024 Patient encounter procedure Kathie Ferreira MD Work Phone: OB/Gynecology Comment on above: Vaginal burning (Mary can Dx); Vulvodynia Start: 09-29-2024 End: 09-29-2024 Coordination of care plan Alka Sheppard PT Work Phone: [facility] Comment on above: Muscular incoordinat ion (Primary Dx); Constipation, unspecified constipation type Start: 09-29-2024 End: 09-29-2024 ambulatory Alka Sheppard PT Work Phone: [facility] Start: 09-27-2024 End: 09-28-2024 ambulatory Estrellita Ferreira MD Work Phone: Gastroenterology Comment on above: Suppositories Start: 09-17-2024 End: 09-17-2024 ambulatory [facility] Start: 09-17-2024 End: 09-17-2024 Subsequent hospital visit by physician [facility] Comment on above: Frequent urination Start: 09-17-2024 End: 09-17-2024 Telephone encounter Kathie Ferreira MD Work Phone: OB/Gynecology Comment on above: Vaginal Problem Start: 09-06-2024 End: 09-06-2024 ambulatory SUMANTH KRAUSE Facility:[facility] Start: 09-06-2024 End: 09-06-2024 Manual pelvic examination Estrellita Ferreira MD Work Phone: Gastroenterology Comment on above: Proctitis (Primary D x); Bloating; Chronic constipation; Pelvic floor dysfunction in female Start: 09-06-2024 End: 09-06-2024 Telemedicine consultation with patient Estrellita Ferreira MD Work Phone: Gastroenterology Start: 09-03-2024 End: 09-03-2024 Emergency department patient visit Mook Suárez Facility:[facility] Start: 09-03-2024 End: 09-03-2024 Admission to same day surgery center Rosie JIM-C Work Phone: Colorectal Surgery Comment on above: Suppositories Start: 09-03-2024 End: 09-03-2024 ambulatory Rosie Galloway PA-C Work Phone: Colorectal Surgery Start: 08-25-2024 End: 08-25-2024 ambulatory Alka Sheppard PT Work Phone: [facility] Start: 08-25-2024 End: 08-25-2024 Coordination of care plan Alka Sheppard PT Work Phone: [facility] Comment on above: Muscular incoordinat ion (Primary Dx); Constipation, unspecified constipation type Start: 08-23-2024 End: 08-23-2024 Admission to same day surgery center Rosie Galloway PA-C Work Phone: Colorectal Surgery Comment on above: Pathology Start: 08-23-2024 End: 08-23-2024 E-mail encounter from caregiver Rosiehorace Galloway PA-C Work Phone: Colorectal Surgery Start: 08-22-2024 End: 08-23-2024 ambulatory Kathie Ferreira MD Work Phone: OB/Gynecology Comment on above: Vaginal Gel Start: 08-17-2024 End: 08-17-2024 ambulatory SUMANTH KRAUSE Facility:[facility] Start: 08-17-2024 End: 08-17-2024 Subsequent hospital visit by physician Lizzy High MD Work Phone: Ambulatory Surgery Comment on above: Anal inflammation [K 62.89] Start: 08-11-2024 End: 08-11-2024 ambulatory KATHIE FERREIRA Facility:[facility] Start: 08-11-2024 End: 08-11-2024 Patient encounter procedure Kathie Ferreira MD Work Phone: OB/Gynecology Comment on above: Encounter for gyneco logical examination (general) (routine) without abnormal findings (Primary Dx); Encounter for screening mammogram for breast cancer Start: 08-11-2024 End: 08-11-2024 Patient encounter status Kathie Ferreira MD Work Phone: [facility] Start: 08-11-2024 End: 08-11-2024 ambulatory Alka Sheppard PT Work Phone: [facility] Start: 08-11-2024 End: 08-11-2024 Coordination of care plan Alka Sheppard PT Work Phone: [facility] Comment on above: Muscular incoordinat ion (Primary Dx); Constipation, unspecified constipation type Start: 08-10-2024 End: 08-10-2024 Admission to same day surgery center Rosie Galloway PA-C Work Phone: Colorectal Surgery Comment on above: Yesterday Start: 08-10-2024 End: 08-10-2024 ambulatory Rosie Galloway PA-C Work Phone: Colorectal Surgery Start: 08-09-2024 End: 08-09-2024 Patient encounter procedure Rosie Galloway PA-C Work Phone: Colorectal Surgery Comment on above: Rectal bleeding (Mary can Dx); Alternating constipation and diarrhea; Anal inflammation; Abdominal cramping Start: 08-09-2024 End: 08-09-2024 ambulatory SUMANTH KRAUSE Facility:[facility] Start: 08-02-2024 End: 08-02-2024 Admission to same day surgery center Rosie Galloway PA-C Work Phone: Colorectal Surgery Comment on above: Blood in stool Start: 08-02-2024 End: 08-02-2024 E-mail encounter from caregiver Rosie Galloway PA-C Work Phone: Colorectal Surgery Start: 07-29-2024 End: 07-30-2024 ambulatory Estrellita Ferreira MD Work Phone: Gastroenterology Comment on above: Blood in stool Start: 07-28-2024 End: 07-28-2024 Coordination of care plan Alka Sheppard PT Work Phone: [facility] Comment on above: Muscular incoordinat ion (Primary Dx); Constipation, unspecified constipation type Start: 07-28-2024 End: 07-28-2024 ambulatory Alka Sheppard PT Work Phone: [facility] Start: 07-20-2024 End: 07-20-2024 Refill Kathie Ferreira MD Work Phone: OB/Gynecology Comment on above: Refill Request Start: 07-14-2024 End: 07-14-2024 ambulatory Alka Sheppard PT Work Phone: [facility] Start: 07-14-2024 End: 07-14-2024 Coordination of care plan Alka Sheppard PT Work Phone: [facility] Comment on above: Muscular incoordinat ion (Primary Dx); Constipation, unspecified constipation type Start: 07-13-2024 End: 07-14-2024 ambulatory Estrellita Ferreira MD Work Phone: Gastroenterology Comment on above: Blood in stool Start: 06-28-2024 End: 06-28-2024 ambulatory Alka Silver PT Work Phone: [facility] Start: 06-28-2024 End: 06-28-2024 Coordination of care plan Alka Silver PT Work Phone: [facility] Comment on above: Muscular incoordinat ion (Primary Dx); Constipation, unspecified constipation type Start: 06-23-2024 End: 06-23-2024 ambulatory Alka Silver PT Work Phone: [facility] Start: 06-23-2024 End: 06-23-2024 Coordination of care plan Alka Silver PT Work Phone: [facility] Comment on above: Muscular incoordinat ion (Primary Dx); Constipation, unspecified constipation type Start: 06-17-2024 End: 06-17-2024 Patient encounter procedure Estrellita Ferreira MD Work Phone: Gastroenterology Comment on above: Chronic constipation (Primary Dx); Pelvic floor dysfunction; Bloating; Gastroesophageal reflux disease without esophagitis Start: 06-07-2024 End: 06-07-2024 ambulatory Alka Silver PT Work Phone: [facility] Start: 06-07-2024 End: 06-07-2024 Coordination of care plan Alka Silver PT Work Phone: [facility] Comment on above: Muscular incoordinat ion (Primary Dx); Constipation, unspecified constipation type Start: 05-04-2024 End: 05-04-2024 Admission to same day surgery center Rosie Galloway PA-C Work Phone: Colorectal Surgery Comment on above: Constipation, unspec ified constipation type (Primary Dx) Start: 05-04-2024 End: 05-04-2024 Telemedicine consultation with patient Rosie Nilesh STRONG Work Phone: Colorectal Surgery Start: 04-27-2024 ambulatory Estrellita bennett MD Work Phone: Gastroenterology Start: 04-27-2024 Patient encounter procedure Estrellita Ferreira MD Work Phone: Gastroenterology Comment on above: Appointment Start: 04-26-2024 ambulatory Estrellita bennett MD Work Phone: Gastroenterology Start: 04-26-2024 Patient encounter procedure Estrellita Ferreira MD Work Phone: Gastroenterology Comment on above: Appointment Start: 04-24-2024 ambulatory Estrellita bennett MD Work Phone: Gastroenterology Comment on above: Lizness Start: 04-07-2024 End: 04-07-2024 ambulatory Alka Sheppard PT Work Phone: [facility] Start: 04-07-2024 End: 04-07-2024 Coordination of care plan Alka Sheppard PT Work Phone: [facility] Comment on above: Muscular incoordinat ion (Primary Dx); Constipation, unspecified constipation type Start: 03-31-2024 End: 03-31-2024 ambulatory Alka Sheppard PT Work Phone: [facility] Start: 03-31-2024 End: 03-31-2024 Coordination of care plan Alka Sheppard PT Work Phone: [facility] Comment on above: Muscular incoordinat ion (Primary Dx); Constipation, unspecified constipation type Start: 03-31-2024 End: 03-31-2024 Manual pelvic examination Estrellita Ferreira MD Work Phone: Gastroenterology Comment on above: Chronic constipation (Primary Dx); Pelvic floor dysfunction; Bloating; Gastroesophageal reflux disease without esophagitis; Rectal bleeding Start: 03-31-2024 End: 03-31-2024 Telemedicine consultation with patient Estrellita Ferreira MD Work Phone: Gastroenterology Start: 03-17-2024 End: 03-17-2024 ambulatory Estrellita Ferreira MD Work Phone: Gastroenterology 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 Start: 03-17-2024 End: 03-17-2024 Patient encounter procedure Estrellita Ferreira MD Work Phone: Gastroenterology Start: 03-16-2024 ambulatory Estrellita bennett MD Work Phone: Gastroenterology Comment on above: Blood in stool Start: 03-10-2024 ambulatory Moraima Jo RN Gastroe nterology Start: 03-10-2024 Patient encounter procedure Moraima Jo RNinsurance investigator Start: 03-10-2024 End: 03-10-2024 Subsequent hospital visit by physician Capsule Work Phone: Gastroenterology Comment on above: 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] Start: 03-05-2024 ambulatory Moraima Jo RN Gastroe nterology Start: 03-05-2024 E-mail encounter fro m caregiver Moraima Jo RN [facility] Start: 03-05-2024 Telephone encounter Moraima Jo RNinsurance investigator Comment on above: Preparations For Pro cedures Start: 03-04-2024 End: 03-04-2024 ambulatory Rosie Romarioic PA-C Work Phone: Colorectal Surgery Comment on above: Manometry Start: 03-04-2024 End: 03-04-2024 Patient encounter procedure Rosie Galloway PA-C Work Phone: [facility] Comment on above: Constipation, unspec ified constipation type (Primary Dx) Start: 02-26-2024 Telephone encounter Estrellita rubin MD Work Phone: Gastroenterology Comment on above: Symptoms Start: 02-23-2024 ambulatory Estrellita bennett MD Work Phone: Gastroenterology Comment on above: Endoscopy Pathology Results Start: 02-23-2024 E-mail encounter fro m caregiver Estrellita Ferreira MD Work Phone: [facility] Start: 02-20-2024 End: 02-20-2024 Subsequent hospital visit by physician Estrellita Ferreira MD Work Phone: Gastroenterology Comment on above: Chronic constipation [K59.09] Start: 02-18-2024 End: 02-18-2024 Subsequent hospital visit by physician [facility] [employer] Work Phone: Radiology Comment on above: Chronic constipation [K59.09] Start: 02-16-2024 End: 02-16-2024 Subsequent hospital visit by physician [facility]r [facility] [employer] Work Phone: Radiology Comment on above: Chronic constipation [K59.09] Start: 02-12-2024 Documentation procedure [facility] Start: 02-12-2024 Letter encounter Mammography Coordinator [place] [facility] Department Start: 02-09-2024 End: 02-09-2024 Patient encounter procedure Estrellita Ferreira MD Work Phone: Gastroenterology Comment on above: Chronic constipation (Primary Dx); Bloating; Decreased rectal sphincter tone OPENED IN ERROR (Mary can Dx) Start: 02-09-2024 Telephone encounter Estrellita rubin MD Work Phone: Gastroenterology Comment on above: assistance with Sitz marker study Start: 02-09-2024 End: 02-09-2024 Subsequent hospital visit by physician Xr Main A21 Radiology Comment on above: Chronic constipation [K59.09] Start: 01-28-2024 Refill Kathie wahl MD Work Phone: OB/Gynecology Comment on above: Refill Request Start: 12-24-2023 Telephone encounter [facility] Provider Deepika troenterology Comment on above: New Patient Start: 12-15-2023 End: 12-15-[address] Sumanth Krause Work Phone: [facility] Work Phone: Start: 12-12-2023 End: 12-12-[address] Sumanth Krause Work Phone: [facility] Work Phone: Start: 12-12-2023 End: 12-12-[address] Sumanth Krause Work Phone: [facility] Work Phone: Start: 10-30-2023 End: 10-30-2023 Emergency department patient visit Dr[facility] Sumanth Krause [facility]: Start: 10-29-2023 End: 10-29-[address] Sumanth Krause Work Phone: [facility] Work Phone: Start: 10-29-2023 End: 10-29-[address] Sumanth Krause Work Phone: [facility] Work Phone: Start: 10-28-2023 End: 10-28-[address] Sumanth Krause Work Phone: [facility] Work Phone: Start: 10-28-2023 End: 10-28-[address] Sumanth Krause Work Phone: [facility] Start: 09-16-2023 End: 09-16-[address] Sumanth Krause Work Phone: [facility] Work Phone: Start: 09-01-2023 Telephone encounter Kathie Ferreira MD Work Phone: OB/Gynecology Comment on above: Patient Question Start: 08-15-2023 End: 08-15-[address] Sumanth Krause Work Phone: [facility], Specimen Work Phone: Start: 08-06-2023 End: 08-06-2023 Patient encounter procedure Kathie Ferreira MD Work Phone: OB/Gynecology Comment on above: Vaginal irritation ( Primary Dx); Encounter for gynecological examination (general) (routine) without abnormal findings Start: 08-06-2023 End: 08-06-2023 Patient encounter status Kathie Ferreira MD Work Phone: [facility] Start: 08-06-2023 Non-patient / Non-visit Dr. Linda Krause Work Phone: [facility] Start: 08-06-2023 End: 08-06-[address] Sumanth Krause Work Phone: [facility] Work Phone: Start: 08-06-2023 End: 08-06-[address] Sumanth Krause [facility] Work [facility]: Start: 07-31-2023 End: 07-31-[address] Sumanth Krause Work Phone: [facility] Work Phone: Start: 07-31-2023 End: 07-31-[address] Sumanth Krause Work Phone: [facility] Work Phone: Start: 2023 Telephone encounter Kathie Ferreira MD Work Phone: Mammogram Comment on above: Orders Start: 07-17-2023 End: 07-17-[address] Sumanth Krause Work Phone: [facility] Work Phone: Start: 07-10-2023 Refill Kathie wahl MD Work Phone: OB/Gynecology Comment on above: Refill Request; Refi ll Request Start: 06-10-2023 End: 06-10-[address] Sumanth Krause [facility] [place] Work Phone: Start: 06-04-2023 End: 06-04-2023 Emergency department patient visit Dr. Sumanth Krause Work Phone: [facility] Work Phone: Start: 05-22-2023 End: 05-22-[address] Sumanth Krause Work Phone: [facility] Work Phone: Start: 05-22-2023 End: 05-22-[address] Sumanth Krause Work Phone: [facility] Work Phone: Start: 04-20-2023 End: 04-20-2023 Emergency department patient visit Dr. Sumanth Krause Work Phone: [facility] Start: 03-31-2023 End: 03-31-[address] Sumanth Krause Work Phone: [facility] Gastroenterology Start: 01-16-2023 End: 01-16-[address] Sumanth Krause Work Phone: [facility] Start: 12-20-2022 Documentation procedure Mammog ayleen Coordinator [facility] Start: 12-20-2022 Letter encounter Mammography Coordinator [facility] Start: 12-19-2022 End: 12-19-2022 Subsequent hospital visit by physician Screen Mammo [facility] Mammogram Comment on above: Encounter for screen ing mammogram for breast cancer [Z12.31] Start: 12-03-2022 End: 12-03-[address] Sumanth Krause Work Phone: [facility] Work Phone: Start: 12-03-2022 End: 12-03-[address] Sumanth Krause Work Phone: [facility] Start: 11-18-2022 Refill Kathie wahl MD Work Phone: OB/Gynecology Comment on above: Refill Request Start: 10-16-2022 End: 10-16-[address] Sumanth Krause [facility] Start: 10-03-2022 End: 10-03-[address] Sumanth Krause Work Phone: [facility] Work Phone: Start: 10-03-2022 End: 10-03-[address] Sumanth Krause Work Phone: [facility], Specimen Start: 09-23-2022 End: 09-23-[address] Sumanth Krause Work Phone: [facility] Gastroenterology Start: 09-17-2022 End: 09-17-[address] Sumanth Krause Work Phone: [facility] Work Phone: Start: 09-17-2022 End: 09-17-2022 Patient encounter procedure [facility] Start: 09-12-2022 End: 09-12-2022 ambulatory [facility] Work Phone: Start: 09-12-2022 End: 09-12-2022 [facility] Start: 09-11-2022 End: 09-11-2022 ambulatory [facility] Work Phone: Start: 09-11-2022 End: 09-11-2022 Patient encounter procedure [facility] Start: 09-05-2022 Refill Kathie wahl MD Work Phone: OB/Gynecology Comment on above: Refill Request Start: 06-04-2022 Refill Kathie wahl MD Work Phone: [facility] Comment on above: Refill Request Start: 06-03-2022 End: 06-04-2022 Emergency department patient visit Dr. Sumanth Krause Work Phone: [facility] Start: 05-17-2022 End: 05-17-[address] Sumanth Krause Work Phone: [facility], Specimen Start: 05-03-2022 End: 05-03-[address] Sumanth Krause Work Phone: [facility] Gastroenterology Start: 04-17-2022 End: 04-17-[address] Sumanth Krause Work Phone: [facility] [place] Start: 03-16-2022 End: 03-16-2022 Emergency department patient visit Dr. Sumanth Krause Work Phone: [facility] Start: 02-27-2022 End: 02-27-[address] Sumanth Krause Work Phone: [facility] Gastroenterology Start: 02-13-2022 Non-patient / Non-visit Dr. Linda Krause Work Phone: [facility] Start: 02-13-2022 End: 02-13-2022 Admission to same day surgery center Dr. Sumanth Krause Work Phone: [facility] Start: 01-09-2022 End: 01-09-[address] Sumanth Krause Work Phone: [facility], Specimen Start: 01-08-2022 End: 01-08-[address] Sumanth Krause Work Phone: [facility], [facility] Start: 12-27-2021 End: 12-27-[address] Sumanth Krause Work Phone: [facility] Gastroenterology Start: 12-25-2021 End: 12-25-[address] Sumanth Krause Work Phone: [facility] Start: 12-14-2021 End: 12-14-2021 Emergency department patient visit Dr. Sumanth Krause [facility] Start: 12-14-2021 End: 12-14-[address] Sumanth Krause Work Phone: [facility], [facility] Start: 12-05-2021 End: 12-05-[address] Sumanth Krause [facility] Start: 11-06-[address] Sumanth Krause Work Phone: [facility], Specimen Start: 10-30-2021 End: 10-30-2021 Emergency department patient visit Dr. Sumanth Krause [facility] Start: 10-24-2021 End: 10-24-[address] Sumanth Krause Work Phone: [facility], Specimen Start: 10-17-[address] Sumanth Krause Work Phone: [facility] Start: 11-06-2018 End: 11-07-2018 Patient encounter procedure BUSBY M JOLANTASTEPHANIE Facility:[facility] Start: 11-05-2018 End: 11-06-2018 Patient encounter procedure KEHINDE CALERO Facility:[facility] Start: 11-04-2018 End: 11-05-2018 Patient encounter procedure KEHINDE CALERO Facility:[facility] Start: 11-03-2018 Patient encounter procedure KEHINDE CALERO Facility:[facility] Start: 11-02-2018 End: 11-03-2018 Patient encounter procedure KEHINDE CALERO Facility:[facility] Start: 10-30-2018 End: 10-31-2018 Patient encounter procedure KEHINDE CALERO Facility:[facility] Start: 10-29-2018 End: 10-30-2018 Patient encounter procedure KEHINDE CALERO Facility:[facility] Start: 10-28-2018 End: 10-29-2018 Patient encounter procedure KEHINDE CALERO Facility:[facility] Start: 10-17-2018 End: 10-23-2018 Evaluation and management of inpatient Sumanth Varela Facility:[facility] Start: 10-16-2018 End: 10-17-2018 Emergency department patient visit SUMANTH VARELA Facility:A Procedures Date Procedure Procedure Detail Performing Clinician Start: 04-06-2025 X-ray of chest, PA and lateral views Dr. Sumanth Krause MD Work Phone: Start: 03-02-2025 Mammography Xuan Echevarria MD Work Phone: Start: 02-18-2025 Lipid 1996 panel - Serum or Plasma Scree n Wstr Start: 12-22-2024 X-ray of chest, PA and lateral views Dr. Sumanth Krause MD Work Phone: Start: 12-22-2024 D-dimer assay, quantitative Dr. Sumanth lackey MD Work Phone: Comment on above: NORMAL D-Dimer level (<0.50) indicates n o DVT or PE. Start: 12-22-[address] Sumanth Krause MD Work Phone: Start: 12-22-2024 Measurement of renal function Dr. Sumanth salcido MD Work Phone: Comment on above: GFR Calc Start: 10-19-2024 Sigmoidoscopy flx dx w/collj spec br/wa if pfrmd Estrellita Ferreira MD Work Phone: Start: 09-17-2024 Urnls dip stick/tablet rgnt auto w/o microscopy Barbra Smalls TECHNICAL SALES ASSOCIATE - IT SUPPORT TECHNICIAN Work Phone: Start: 08-17-2024 Colonoscopy flx dx w/collj spec when pfrmd Rosie Galloway PA-C Work Phone: Start: 08-17-2024 Colonoscopy Lizzy High MD Work Phone: Start: 03-04-2024 [facility] ANORECTAL MANOMETRY Estrellita del toro MD Work Phone: Start: 02-20-2024 Esophagogastroduodenoscopy transoral diagnostic Estrellita Ferreira MD Work Phone: Start: 02-20-2024 Colonoscopy flx dx w/collj spec when pfrmd Estrellita Ferreira MD Work Phone: Start: 02-20-2024 Colonoscopy Estrellita Ferreira MD Work Phone: Start: 02-09-2024 Radiologic exam abdomen 1 view Estrellita del toro MD Work Phone: Start: 10-30-2023 Computed tomography of abdomen and pelvis with intravenous contrast Dr. Sumanth Krause Work Phone: Start: 08-15-[address] Sumanth Krause Work Phone: Start: 08-06-2023 Bacteria identified in Urine by Culture Dr. Sumanth Krause Work Phone: Start: 08-06-[address] Sumanth Krause Work Phone: Start: 06-10-2023 Diagnostic radiography of abdomen Dr. Linda Krause Work Phone: Start: 06-04-2023 CT of abdomen and pelvis without contrast Dr. Sumanth Krause Work Phone: Start: 05-22-2023 Computed tomography of abdomen and pelvis with contrast Dr. Sumanth Krause Work Phone: Start: 12-19-2022 RENÉE SCREENING W LEANDRO Ferreira MD Work Phone: Start: 12-19-2022 Mammography Mammography Coordinator Start: 10-16-2022 Radiologic examination of upper gastrointestinal tract and small bowel with serial films Dr. Sumanth Krause Work Phone: Start: 06-04-2022 CT angiography of chest with contrast Dr. Sumanth Krause Work Phone: Start: 06-03-2022 Plain chest X-ray Dr. Sumanth Krause Work Phone: Start: 04-17-2022 Plain X-ray of toe Dr. Sumanth Krause Work Phone: Start: 03-16-2022 Computed tomography of abdomen and pelvis with intravenous contrast Dr. Sumanth Krause Work Phone: Start: 02-13-[address] Sumanth Krause Work Phone: Start: 01-09-2022 Bacteria identified in Urine by Culture Dr. Sumanth Krause Work Phone: Start: 01-09-[address] Sumanth Krause Work Phone: Start: 01-08-2022 Elastography Parenchyma/Organ Dr. Sumanth salcido Work Phone: Start: 01-08-[address] Sumanth watson Work Phone: Start: 12-14-2021 Computed tomography of abdomen and pelvis with intravenous contrast Dr. Sumanth Krause Work Phone: Start: 12-05-2021 CT of chest without contrast Dr. Sumanth rich Work Phone: Start: 11-06-2021 End: 11-06-[address] Sumanth Krause Work Phone: Start: 11-06-[address] Sumanth Krause Work Phone: Start: 11-06-[address] Sumanth Krause Work Phone: Start: 10-30-2021 Computed tomography of abdomen and pelvis with contrast Dr. Sumanth Krause Work Phone: Start: 10-24-[address] Sumanth Krause Work Phone: Start: 10-17-[address] Sumanth Krause Work Phone: Start: 07-12-2021 Mammography Kathie Ferreira MD Work Phone: Start: 10-18-2018 Lipid 1996 panel - Serum or Plasma Romy Ferreira MD Work Phone: Start: 07-13-2013 Colonoscopy Kathie Ferreira MD Work Phone: Bacteria identified in Urine by Culture Dr. Sumanth Krause Work Phone: Enteric Bacteriology Enteric Bacteriology Dr. Tin Krause Work Phone: H/O: hysterectomy S/P hysterectomy Rosy Sterling MD Work Phone: Urine culture Dr. Sumanth topete Work Phone: Urine culture Dr. Sumanth topete Work Phone: Plan of Treatment Date Care Activity Detail Author Start: 2045 RSV Immunization for Adults (1 - 1-dose 75+ series) RSV Immunization for Adults (1 - 1-dose 75+ series) [facility] Start: 02-18-2035 DTaP/Tdap/Td Vaccines (3 - Td or Tdap) DTaP/Tdap/Td Vaccines (3 - Td or Tdap) [facility] Start: 02-18-2035 Urine microalbumin profile DTaP,Tdap,Td Vaccine (3 - Td or Tdap) [facility] Start: 08-17-2034 Screening for malignant neoplasm of colon [facility] Start: 02-19-2034 Screening for malignant neoplasm of colon [facility] Start: 04-12-2030 DTaP/Tdap/Td vaccine (2 - Td or Tdap) DTaP/Tdap/Td vaccine (2 - Td or Tdap) [facility] Start: 04-12-2030 Urine microalbumin profile DTaP,Tdap,Td Vaccine (2 - Td or Tdap) [facility] Start: 02-18-2030 Lipid panel [facility] Start: 10-19-2029 Screening for malignant neoplasm of colon Sigmoidoscopy [facility] Start: 02-19-2028 Diabetes Screening Diabetes Screening [facility] Start: 02-08-2027 Diabetes Screening Diabetes Screening [facility] Start: 03-02-2026 Screening for malignant neoplasm of breast [facility] Start: 02-11-2026 Screening for malignant neoplasm of breast Breast cancer screen [facility] Start: 12-08-2025 End: 12-08-2025 Patient encounter procedure 12/08/2025 1:40 PM EST Office Visit OB/Gynecology [address] [place] [address] Kathie Ferreira MD [address] [place], [place] [address] Annual OB/Gynecology Comment on above: Annual Start: 11-17-2025 Depression Monitoring Depression Monitoring [facility] Start: 10-17-2025 End: 10-17-2025 ambulatory 10/17/2025 11:30 AM EST OT/PT/Speech Visit [facility] [address] [place] [address] [place] [address] [place], [place] [id number] Constipation, unspecified constipation type [K59.00] [facility] Comment on above: Constipation, unspecified constipation t ype [K59.00] Start: 10-07-2025 End: 07-07-2026 Flexible sigmoidoscopy study SIGMOIDOSCOPY Endoscopy Routine 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) Expected: 10/07/2025, Expires: 07/07/2026 [facility] Work Phone: Comment on above: Expected: 10/07/2025, Expires: Start: 10-03-2025 End: 10-03-2025 ambulatory 10/03/2025 11:30 AM EST OT/PT/Speech Visit [facility] [address] [place] [address] [place] [address] [place] [address] Constipation, unspecified constipation type [K59.00] [facility] Comment on above: Constipation, unspecified constipation t ype [K59.00] Start: 09-19-2025 End: 09-19-2025 ambulatory 09/19/2025 11:30 AM EST OT/PT/Speech Visit [facility] [address] [place] [address] [place] [address] [place] [address] Constipation, unspecified constipation type [K59.00] [facility] Comment on above: Constipation, unspecified constipation t ype [K59.00] Start: 09-05-2025 End: 09-05-2025 ambulatory 09/05/2025 11:30 AM EDT OT/PT/Speech Visit [facility] [address] [place] [address] [place] [address] [place] [address] Constipation, unspecified constipation type [K59.00] [facility] Comment on above: Constipation, unspecified constipation t ype [K59.00] Start: 08-22-2025 End: 08-22-2025 ambulatory 08/22/2025 11:30 AM EDT OT/PT/Speech Visit [facility] [address] [place] [address] [place] [address] [place] [address] Constipation, unspecified constipation type [K59.00] [facility] Comment on above: Constipation, unspecified constipation t ype [K59.00] Start: 08-15-2025 End: 08-15-2025 Patient encounter procedure OB/Gynecology Comment on above: Annual 1st attempt- Annual 2nd attempt- Annual Start: 08-08-2025 End: 08-08-2025 Patient encounter procedure 08/08/2025 9:00 AM EDT Office Visit Gastroenterology [address] [address] Estrellita Ferreira MD [facility] [address] [id number] follow up Gastroenterology Comment on above: follow up Start: 07-27-2025 End: 07-27-2025 Patient encounter procedure 07/27/2025 4:00 PM EDT Office Visit Gynecology [address] [address] Rosie Sterling MD [address] [place], [place] [phone] [facility] Gynecology Comment on above: TPI Start: 07-20-2025 End: 07-20-2025 ambulatory 07/20/2025 11:30 AM EDT OT/PT/Speech Visit [facility] [address] [place] [address] [place] [address] [place] [address] Constipation, unspecified constipation type [K59.00] [facility] Comment on above: Constipation, unspecified constipation t ype [K59.00] Start: 07-18-2025 Influenza vaccination Influenza Vaccine (#1) [facility] Start: 07-07-2025 End: 07-07-2025 Follow-up encounter 07/07/2025 4:00 PM EDT [facility] Gastroenter[facility] [address] [place] [id number] Estrellita Ferreira MD [facility] [address] [place] [id number] 3 month follow up Gastroenterology Comment on above: 3 month follow up Start: 06-09-2025 End: 06-09-2025 Patient encounter procedure 06/09/2025 1:30 PM EDT Office Visit Gastroenterology [address] [address] Estrellita Ferreira MD [facility] [address] [address] 3 month follow up Gastroenterology Comment on above: 3 month follow up Start: 06-02-2025 End: 06-02-2025 Patient encounter procedure 06/02/2025 2:00 PM EDT Office Visit Gastroenterology [address] [address] Estrellita Ferreira MD [facility] [address] [place] [address] 3 month follow up Gastroenterology Comment on above: 3 month follow up Start: 05-30-2025 End: 05-30-2025 Follow-up encounter 05/30/2025 8:30 AM EDT [facility] [address] [address] Estrellita Ferreira MD [facility] [address] [place] [id number] 3 month follow up Gastroenterology Comment on above: 3 month follow up Start: 05-04-2025 End: 05-04-2025 ambulatory 05/04/2025 11:30 AM EDT OT/PT/Speech Visit [facility] [address] [place] [address] [place] [address] [address] [place] [phone] Constipation, unspecified constipation type [K59.00] [facility] Comment on above: Constipation, unspecified constipation t ype [K59.00] Start: 04-26-2025 End: 04-26-2025 Patient encounter procedure 04/26/2025 4:00 PM EDT Office Visit Gynecology [address] [address] Rosie Sterling MD [address] [place], [place] [phone] put her on my schedule in person for botox (already approved to oct 2025) on Friday04/26/2025 at [address] Sterling Gynecology Comment on above: put her on my schedule in person for bot ox (already approved to oct 2025) on Friday04/26/2025 at [address] Sterling Start: 04-20-2025 End: 04-20-2025 ambulatory 04/20/2025 11:30 AM EDT OT/PT/Speech Visit [facility] [address] [place] [address] [place] [address] [place] [address] Constipation, unspecified constipation type [K59.00] [facility] Comment on above: Constipation, unspecified constipation t ype [K59.00] Start: 04-06-2025 End: 04-06-2025 ambulatory 04/06/2025 11:30 AM EDT OT/PT/Speech Visit [facility] [address] [place] [address] [place] [address] [place] [address] Constipation, unspecified constipation type [K59.00] [facility] Comment on above: Constipation, unspecified constipation t ype [K59.00] Start: 03-23-2025 End: 03-23-2025 ambulatory 03/23/2025 11:30 AM EDT OT/PT/Speech Visit [facility] [address] [place] [address] [place] [address] [place] [address] Constipation, unspecified constipation type [K59.00] [facility] Comment on above: Constipation, unspecified constipation t ype [K59.00] Start: 03-10-2025 End: 03-10-2025 ambulatory 03/10/2025 4:00 PM EDT [facility] Gyne[facility] [address] [place] [address] Rosie Sterling MD [address] [place], [place] [phone] put her on my schedule for virtual on 03/10/25 at 4 pm, per Dr Sterling Gynecology Comment on above: put her on my schedule for virtual on 03/10/25 at 4 pm, per Dr Sterling Start: 03-07-2025 End: 03-07-2025 ambulatory 03/07/2025 11:30 AM EDT OT/PT/Speech Visit [facility] [address] [place] [address] [place] [address] [place] [address] Constipation, unspecified constipation type [K59.00] [facility] Comment on above: Constipation, unspecified constipation t ype [K59.00] Start: 02-22-2025 End: 02-22-2025 Patient encounter procedure 02/22/2025 12:50 PM EDT Appointment Mammogram [address] [place] [address] Mammogram Start: 02-21-2025 End: 02-21-2025 ambulatory 02/21/2025 11:30 AM EDT OT/PT/Speech Visit [facility] [address] [place] [address] [place] [address] [place] [address] Constipation, unspecified constipation type [K59.00] [facility] Comment on above: Constipation, unspecified constipation t ype [K59.00] Start: 02-16-2025 End: 02-16-2025 Follow-up encounter 02/16/2025 10:00 AM EDT [facility] Gastroenterology [address] [id number] Estrellita Ferreira MD [facility] [address] [address] FOLLOW-UP - Bloating Gastroenterology Comment on above: FOLLOW-UP - Bloating Start: 02-14-2025 End: 02-14-2025 Patient encounter procedure 02/14/2025 1:30 PM EDT Appointment Mammogram [address] [place] [address] Encounter for gynecological examination (general) (routine) without abnormal findings [Z01.419]; Encounter for screening mammogram for breast cancer [Z12.31] Mammogram Comment on above: Encounter for gynecological examination (general) (routine) without abnormal findings [Z01.419]; Encounter for screening mammogram for breast cancer [Z12.31] Start: 02-11-2025 Screening for malignant neoplasm of breast Mammogram Screening [facility] Start: 02-07-2025 End: 02-07-2025 ambulatory 02/07/2025 11:30 AM EDT OT/PT/Speech Visit [facility] [address] [place] [address] [place] [address] [place] [address] Constipation, unspecified constipation type [K59.00] [facility] Comment on above: Constipation, unspecified constipation t ype [K59.00] Start: 01-25-2025 End: 01-25-2025 Patient encounter procedure 01/25/2025 5:00 PM EDT Office Visit Gynecology [address] [place] [address] Rosie Sterling MD [address] [place], [place] [phone] follow -up Gynecology Comment on above: follow -up Start: 01-24-2025 End: 01-24-2025 ambulatory 01/24/2025 11:30 AM EDT OT/PT/Speech Visit [facility] [address] [place] [address] [place] [address] [place] [address] Constipation, unspecified constipation type [K59.00] [facility] Comment on above: Constipation, unspecified constipation t ype [K59.00] Start: 01-05-2025 End: 01-05-2025 ambulatory 01/05/2025 2:00 PM EST OT/PT/Speech Visit [facility] [address] [place] [address] [place] [address] [place] [address] Constipation, unspecified constipation type [K59.00] [facility] Comment on above: Constipation, unspecified constipation t ype [K59.00] Start: 12-22-2024 [facility] Start: 12-22-2024 [facility] Start: 12-22-2024 [facility] Start: 12-16-2024 End: 12-16-2024 Patient encounter procedure 12/16/2024 1:30 PM EST Office Visit Gynecology [address] [place] [address] Rosie Sterling MD [address] [place], [place] [phone] CPP Gynecology Comment on above: CPP Start: 11-01-2024 End: 11-01-2024 ambulatory 11/01/2024 2:00 PM EST OT/PT/Speech Visit [facility] [address] [place] [address] [place] [address] [place], [place] [phone] Constipation, unspecified constipation type [K59.00] [facility] Comment on above: Constipation, unspecified constipation t ype [K59.00] Start: 10-21-2024 End: 10-21-2024 Follow-up encounter Gastroenterology Comment on above: Follow up Start: 10-19-2024 End: 10-19-2024 Patient encounter procedure 10/19/2024 4:30 PM EST Appointment Gastroenterology [address] [place] [address] [phone] Estrellita Ferreira MD [facility] [address] [place] [address] [phone] Proctitis [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 [address] vaginal burning (declined sooner appt with another provider) OB/Gynecology Comment on above: vaginal burning (declined sooner appt wi th another provider) Start: 09-29-2024 End: 09-29-2024 ambulatory 09/29/2024 11:45 AM EST OT/PT/Speech Visit [facility] [address] [place] [address] [place] [address] [place], [place] [phone] Constipation, unspecified constipation type [K59.00] [facility] Comment on above: Constipation, unspecified constipation t ype [K59.00] Start: 09-16-2024 End: 09-16-2024 Follow-up encounter 09/16/2024 10:00 AM EDT [facility] [address] [address] Estrellita Ferreira MD [facility] [address] [address] Follow up Gastroenterology Comment on above: Follow up Start: 09-13-2024 End: 09-13-2024 ambulatory 09/13/2024 11:30 AM EDT OT/PT/Speech Visit [facility] [address] [place] [address] [place] [address] [place], [place] [phone] Constipation, unspecified constipation type [K59.00] [facility] Comment on above: Constipation, unspecified constipation t ype [K59.00] Start: 09-06-2024 End: 09-06-2024 ambulatory 09/06/2024 8:00 AM EDT [facility] [address] [phone] Estrellita Ferreira MD [facility] [address] [place], [place] [phone] VV F/U needed sooner appt. Gastroenterology Comment on above: VV F/U needed sooner appt. Start: 08-25-2024 End: 08-25-2024 ambulatory 08/25/2024 11:45 AM EDT OT/PT/Speech Visit [facility] [address] [place] [address] [place] [address] [place] [address] Constipation, unspecified constipation type [K59.00] [facility] Comment on above: Constipation, unspecified constipation t ype [K59.00] Start: 08-11-2024 End: 08-11-2024 Patient encounter procedure 08/11/2024 2:20 PM EDT Office Visit OB/Gynecology [address] [place] [address] Kathie Ferreira MD [address] [place] [address] ANNUAL OB/Gynecology Comment on above: ANNUAL Start: 08-11-2024 End: 08-11-2024 ambulatory 08/11/2024 11:45 AM EDT OT/PT/Speech Visit [facility] [address] [place] [address] [place] [address] [place] [address] Constipation, unspecified constipation type [K59.00] [facility] Comment on above: Constipation, unspecified constipation t ype [K59.00] Start: 08-09-2024 End: 08-09-2024 Patient encounter procedure 08/09/2024 3:00 PM EDT Office Visit Colorectal Surgery [address] [address] Rosie Galloway PA-C [address] [place], [place] [phone] Blood in stool Colorectal Surgery Comment on above: Blood in stool Start: 08-09-2024 End: 11-08-2024 C reactive protein [Mass/volume] in Serum or Plasma [facility] Work Phone: Comment on above: Expected: 08/09/2024, Expires: Start: 08-09-2024 End: 11-08-2024 Iron and Iron binding capacity panel - Serum or Plasma [facility] Comment on above: Expected: 08/09/2024, Expires: Start: 07-28-2024 End: 07-28-2024 ambulatory 07/28/2024 11:45 AM EDT OT/PT/Speech Visit [facility] [address] [place] [address] [place] [address] [facility] [place] [address] Constipation, unspecified constipation type [K59.00] [facility] Comment on above: Constipation, unspecified constipation t ype [K59.00] Start: 07-18-2024 COVID-19 Vaccine ( season) COVID-19 Vaccine ( season) [facility] Start: 07-18-2024 Covid-19 Vaccine ( season) Covid-19 Vaccine ( season) [facility] Start: 07-18-2024 Covid-19 Vaccine ( season) Covid-19 Vaccine ( season) [facility] Start: 07-18-2024 Influenza [facility] Start: 07-14-2024 End: 07-14-2024 ambulatory 07/14/2024 12:30 PM EDT OT/PT/Speech Visit [facility] [address] [place] [address] [place] [address] [place], [place] [phone] Constipation, unspecified constipation type [K59.00] [facility] Comment on above: Constipation, unspecified constipation t ype [K59.00] Start: 06-28-2024 End: 06-28-2024 ambulatory 06/28/2024 2:45 PM EDT OT/PT/Speech Visit [facility] [address] [place] [address] [place] [address] [place], [place] [phone] Constipation, unspecified constipation type [K59.00] [facility] Comment on above: Constipation, unspecified constipation t ype [K59.00] Start: 06-21-2024 End: 06-21-2024 ambulatory 06/21/2024 11:30 AM EDT OT/PT/Speech Visit [facility] [address] [place] [address] [place] [address] [place], [place] [phone] Constipation, unspecified constipation type [K59.00] [facility] Comment on above: Constipation, unspecified constipation t ype [K59.00] Start: 06-17-2024 End: 06-17-2024 Patient encounter procedure 06/17/2024 4:30 PM EDT Office Visit Gastroenterology [address] [phone] Estrellita Ferreira MD [facility] [address] [place] [phone] Sooner appt. Gastroenterology Comment on above: Sooner appt. Start: 06-14-2024 End: 06-14-2024 ambulatory 06/14/2024 11:30 AM EDT OT/PT/Speech Visit [facility] [address] [place] [address] [place] [address] [place] [address] Constipation, unspecified constipation type [K59.00] [facility] Comment on above: Constipation, unspecified constipation t ype [K59.00] Start: 06-08-2024 End: 06-08-2024 Follow-up encounter 06/08/2024 4:00 PM EDT [facility] Colorectal Surgery [address] [address] Rosie Galloway PA-C [address] [place] [address] 3 month follow up Colorectal Surgery Comment on above: 3 month follow up Start: 05-04-2024 End: 05-04-2024 Follow-up encounter 05/04/2024 2:30 PM EDT [facility] Colorectal Surgery [address] [address] Rosie Galloway PA-C [address] [place] [address] 3 month follow up Colorectal Surgery Comment on above: 3 month follow up Start: 04-28-2024 End: 04-28-2024 ambulatory 04/28/2024 11:45 AM EDT OT/PT/Speech Visit [facility] [address] [place] [address] [place] [address] [place] [address] Constipation, unspecified constipation type [K59.00] [facility] Comment on above: Constipation, unspecified constipation t ype [K59.00] Start: 04-26-2024 End: 04-26-2024 ambulatory 04/26/2024 11:30 AM EDT OT/PT/Speech Visit [facility] [address] [place] [address] [place] [address] [place] [address] Constipation, unspecified constipation type [K59.00] [facility] Comment on above: Constipation, unspecified constipation t ype [K59.00] Start: 04-21-2024 End: 04-21-2024 ambulatory 04/21/2024 2:00 PM EDT OT/PT/Speech Visit [facility] [address] [place] [address] [place] [address] [facility] [place] [address] Constipation, unspecified constipation type [K59.00] [facility] Comment on above: Constipation, unspecified constipation t ype [K59.00] Start: 04-15-2024 End: 04-15-2024 ambulatory 04/15/2024 11:30 AM EDT OT/PT/Speech Visit [facility] [address] [place] [address] [place] [address] [facility] [place] [address] Constipation, unspecified constipation type [K59.00] [facility] Comment on above: Constipation, unspecified constipation t ype [K59.00] Start: 04-07-2024 End: 04-07-2024 ambulatory 04/07/2024 11:45 AM EDT OT/PT/Speech Visit [facility] [address] [place] [address] [place] [address] [facility] [place] [address] Constipation, unspecified constipation type [K59.00] [facility] Comment on above: Constipation, unspecified constipation t ype [K59.00] Start: 03-31-2024 End: 03-31-2024 ambulatory 03/31/2024 10:30 AM EDT OT/PT/Speech Visit [facility] [address] [place] [address] [place] [address] [place] [address] Constipation, unspecified constipation type [K59.00] [facility] Comment on above: Constipation, unspecified constipation t ype [K59.00] Start: 03-31-2024 End: 03-31-2024 Follow-up encounter 03/31/2024 9:30 AM EDT [facility] Gastroenterology [address] [address] Estrellita Ferreira MD [facility] [address] [place] [phone] FOLLOW UP FOR TEST RESULTS Gastroenterology Comment on above: FOLLOW UP FOR TEST RESULTS Start: 02-16-2024 End: 03-10-2025 XR Abdomen Supine and Upright [facility] Work Phone: Comment on above: Expected: 02/16/2024 (Approximate), Expi res: 03/10/2025 Start: 02-09-2024 End: 02-08-2025 [place]ULT [place] ANORECTAL MANOMETRY [facility] ANORECTAL MANOMETRY Endoscopy Routine Chronic constipation Bloating Decreased rectal sphincter tone Expected: 02/09/2024, Expires: 02/08/2025 [facility] Work Phone: Comment on above: Expected: 02/09/2024, Expires: Start: 02-09-2024 End: 05-10-2024 CELIAC SCREEN WITH REFLEX [facility] Work Phone: Comment on above: Expected: 02/09/2024 (Approximate), Expi res: 05/10/2024 Start: 02-09-2024 End: 05-10-2024 COPPER BLOOD [facility] Work Phone: Comment on above: Expected: 02/09/2024 (Approximate), Expi res: 05/10/2024 Start: 02-09-2024 End: 05-10-2024 Methylmalonate [Moles/volume] in Serum or Plasma [facility] Work Phone: Comment on above: Expected: 02/09/2024 (Approximate), Expi res: 05/10/2024 Start: 02-09-2024 End: 05-10-2024 Retinol [Mass/volume] in Serum or Plasma [facility] Work Phone: Comment on above: Expected: 02/09/2024 (Approximate), Expi res: 05/10/2024 Start: 02-09-2024 End: 05-10-2024 Zinc [Mass/volume] in Serum or Plasma [facility] Work Phone: Comment on above: Expected: 02/09/2024 (Approximate), Expi res: 05/10/2024 Start: 12-19-2023 Mammography [facility] Start: 12-19-2023 Screening for malignant neoplasm of breast Mammogram Screening [facility] Start: 10-30-2023 [facility] Start: 10-18-2023 Lipid 1996 panel - Serum or Plasma Lipid Screening [facility] Start: 10-18-2023 Lipid panel Lipid Screening [facility] Start: 10-18-2023 LIPID SCREEN LIPID SCREEN [facility] Start: 07-18-2023 Covid-19 Vaccine () Covid-19 Vaccine () [facility] Start: 07-18-2023 Influenza vaccination [facility] Start: 07-13-2023 Colonoscopy COLONOSCOPY [facility] Start: 07-13-2023 COLORECTAL CANCER SCREENING COLORECTAL CANCER SCREENING [facility] Start: 07-13-2023 Screening for malignant neoplasm of colon [facility] Start: 06-04-2023 [facility] Start: 04-20-2023 Patient discharge [facility] Start: 07-18-2022 Influenza vaccination INFLUENZA (#1) [facility] Start: 07-12-2022 Mammography MAMMOGRAM [facility] Start: 06-04-2022 [facility] Work Phone: Start: 06-03-2022 [facility] Work Phone: Start: 02-13-2022 Colonoscopy w/biopsy single/multiple COLONOSCOPY AND BIOPSY [facility] Work Phone: Start: 02-13-2022 Egd transoral biopsy single/multiple EGD BIOPSY SINGLE/MULTIPLE [facility] Work Phone: Start: 02-01-2022 COVID-19 VACCINE (4 - Booster for Moderna series) COVID-19 VACCINE (4 - Booster for Moderna series) [facility] Start: 02-01-2022 COVID-19 VACCINE (4 - Moderna series) COVID-19 VACCINE (4 - Moderna series) [facility] Start: 10-18-2021 DIABETES SCREEN DIABETES SCREEN [facility] Start: 10-18-2021 Diabetes Screening Diabetes Screening [facility] Start: 09-12-2021 COVID-19 VACCINE (3 - Booster for Moderna series) COVID-19 VACCINE (3 - Booster for Moderna series) [facility] Start: 2020 Pneumococcal Vaccine: 50+ (1 of 1 - PCV) Pneumococcal Vaccine: 50+ (1 of 1 - PCV) [facility] Start: 2020 Pneumococcal Vaccine: 50+ Years (1 of 1 - PCV) Pneumococcal Vaccine: 50+ Years (1 of 1 - PCV) [facility] Start: 2020 SHINGRIX VACCINE (1 of 2) SHINGRIX VACCINE (1 of 2) [facility] Start: 2015 COLOGUARD (FIT-DNA) COLOGUARD (FIT-DNA) [facility] Start: [address] COLONOGRAPHY [facility] Start: 2015 FECAL OCCULT BLOOD FECAL OCCULT BLOOD [facility] Start: 2015 Screening for malignant neoplasm of colon [facility] Start: 2015 SIGMOIDOSCOPY SIGMOIDOSCOPY [facility] Start: 2010 Lipid panel Lipids [facility] Start: 2000 Screening for malignant neoplasm of cervix [facility] Start: 1991 Screening for malignant neoplasm of cervix Pap smear [facility] Start: 1989 Hepatitis B Vaccine (1 of 3 - 19+ 3-dose series) Hepatitis B Vaccine (1 of 3 - 19+ 3-dose series) [facility] Start: 1989 Hepatitis B Vaccines (1 of 3 - 19+ 3-dose series) Hepatitis B Vaccines (1 of 3 - 19+ 3-dose series) [facility] Start: 1989 Urine microalbumin profile [facility] Start: 1988 Anxiety Screening Anxiety Screening [facility] Start: 1988 HEPATITIS C SCREENING HEPATITIS C SCREENING [facility] Start: 1988 Hepatitis C screening [facility] Start: 1988 HIV SCREENING HIV SCREENING [facility] Start: 1988 HIV screening HIV Screening [facility] Start: 1985 HIV screening HIV screen [facility] Start: 1982 Depression Screen Depression Screen [facility] Start: 1971 MMR Vaccines (1 of 1 - Standard series) MMR Vaccines (1 of 1 - Standard series) [facility] Start: 1970 HEPATITIS B (1 of 3 - 3-dose series) HEPATITIS B (1 of 3 - 3-dose series) [facility] Start: 1970 Hepatitis B Vaccine (1 of 3 - 3-dose series) Hepatitis B Vaccine (1 of 3 - 3-dose series) [facility] Start: 1970 HIV screening HIV Screening [facility] Start: 1970 Screening for malignant neoplasm of colon [facility] ANORECTAL MANOMETRY [facility] ANORECTAL MANOMETRY Endoscopy Routine Chronic constipation Bloating Decreased rectal sphincter tone 03/04/2024 [facility] Work Phone: BACTERIAL VAGINOSIS NAAT BACTERIAL VAGINOSIS NAAT Lab Routine Vaginal irritation 08/06/2023 3:59 PM EDT [facility] Work Phone: BACTERIAL VAGINOSIS NAAT BACTERIAL VAGINOSIS NAAT Lab Routine Vaginal burning 09/29/2024 2:13 PM EST [facility] Work Phone: Calprotectin [Mass/mass] in Stool CALPROTECTIN,FECAL Lab Routine Alternating constipation and diarrhea Anal inflammation Ordered: 08/09/2024 [facility] Comment on above: Ordered: 08/09/2024 MARIO/TRICHOMONAS NAAT MARIO/TRICHOMONAS NAAT Lab Routine Vaginal irritation 08/06/2023 3:59 PM EDT [facility] Work Phone: MARIO/TRICHOMONAS NAAT MARIO/TRICHOMONAS NAAT Lab Routine Vaginal burning 09/29/2024 2:13 PM EST [facility] End: 02-22-2025 CAPSULE ENDOSCOPY SMALL BOWEL CAPSULE ENDOSCOPY SMALL BOWEL Endoscopy Routine Mesenteric lymphadenopathy 1 Occurrences starting 02/23/2024 until 02/22/2025 [facility] Work Phone: Comment on above: 1 Occurrences starting 02/23/2024 until 02/22/2025 CAPSULE ENDOSCOPY SMALL BOWEL CAPSULE ENDOSCOPY SMALL BOWEL Endoscopy Routine Mesenteric lymphadenopathy 03/10/2024 [facility] Work Phone: CBC W Auto Differential panel - Blood [facility] Celiac disease screen [facility] Clostridioides difficile toxin genes [Presence] in Stool by MARCIA with probe detection C. DIFFICILE PCR Lab Routine Alternating constipation and diarrhea Anal inflammation Abdominal cramping Ordered: 08/09/2024 [facility] Comment on above: Ordered: 08/09/2024 CYSTOSCOPY WHI CYSTOSCOPY WHI Procedures Routine High-tone pelvic floor dysfunction 1 Occurrences starting 04/26/2025 [facility] Comment on above: 1 Occurrences starting 04/26/2025 Cytoplasmic ANCA Screen [facility] End: 09-10-2025 DBT Breast - bilateral screening RENÉE SCREENING W LEANDRO Radiology Routine Encounter for gynecological examination (general) (routine) without abnormal findings Encounter for screening mammogram for breast cancer 1 Occurrences starting 08/11/2024 until 09/10/2025 [facility] Work Phone: Comment on above: 1 Occurrences starting 08/11/2024 until 09/10/2025 DBT Breast - bilater al screening RENÉE SCREENING W LEANDRO Radiology Routine Encounter for gynecological examination (general) (routine) without abnormal findings Encounter for screening mammogram for breast cancer 03/02/2025 11:34 AM EDT [facility] Work Phone: End: 02-08-2025 EGD DIAGNOSTIC EGD DIAGNOSTIC Endoscopy Routine Chronic constipation Bloating 1 Occurrences starting 02/09/2024 until 02/08/2025 [facility] Work Phone: Comment on above: 1 Occurrences starting 02/09/2024 until 02/08/2025 End: 02-08-2025 Flexible sigmoidoscopy study COLONOSCOPY DIAGNOSTIC Endoscopy Routine Chronic constipation Bloating 1 Occurrences starting 02/09/2024 until 02/08/2025 [facility] Work Phone: Comment on above: 1 Occurrences starting 02/09/2024 until 02/08/2025 Gamma glutamyl transferase measurement [facility] Hemoglobin A1c/Hemoglobin.total in Blood [facility] IgG subclass panel [Mass/volume] - Serum [facility] Immunoglobulin measurement [facility] 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/2 muscles TRIGGER POINT INJECTION MULTI 1-2 MUSCLE GR Procedures Routine High-tone pelvic floor dysfunction Ordered: 01/25/2025 [facility] Work Phone: Comment on above: Ordered: 01/25/2025 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/2 muscles TRIGGER POINT INJECTION MULTI 1-2 MUSCLE GR Procedures Routine High-tone pelvic floor dysfunction Ordered: 04/26/2025 [facility] [employer] Work Phone: Comment on above: Ordered: 04/26/2025 Lipid 1996 panel - Serum or Plasma [facility] End: 08-20-2024 RENÉE SCREENING W LEANDRO RENÉE SCREENING W LEANDRO Radiology Routine Encounter for screening mammogram for malignant neoplasm of breast 1 Occurrences starting 2023 until 08/20/2024 [facility] Work Phone: Comment on above: 1 Occurrences starting 2023 until 08/20/2024 Patient Education [facility] Work Phone: Patient referral [facility] Work Phone: Procedure [facility] Work Phone: Procedure [facility] Prothrombin time [facility] SURGICAL PATHOLOGY [facility] Work Phone: Comment on above: Release Upon Ordering for 1 Occurrences starting 02/20/2024, 1 completed SURGICAL PATHOLOGY [facility] Work Phone: Comment on above: Release Upon Ordering for 1 Occurrences starting 08/17/2024, 1 completed [facility] [facility] Work Phone: Comment on above: Release Upon Ordering for 1 Occurrences starting 10/19/2024, 1 completed XR Abdomen Supine an d Upright XR ABDOMEN 1V SUPINE Radiology Routine Chronic constipation 02/18/2024 2:50 PM EDT [facility] Work Phone: End: 08-26-2026 XR Abdomen Supine and Upright XR ABDOMEN 2V ROUTINE SUPINE W UPRIGHT/DECUB/CTL Radiology Routine Generalized abdominal pain 1 Occurrences starting 07/27/2025 until 08/26/2026 [facility] Work Phone: Comment on above: 1 Occurrences starting 07/27/2025 until 08/26/2026 XR Abdomen Supine an d Upright XR ABDOMEN 2V ROUTINE SUPINE W UPRIGHT/DECUB/CTL Radiology Routine Generalized abdominal pain 07/28/2025 2:10 PM EDT [facility] Work Phone: [facility] Immunizations Immunization Date Immunization Notes Care Provider Fa percy 02-18-2025 tetanus toxoid, redu fadumo diphtheria toxoid, and acellular pertussis vaccine, adsorbed Screen Wstr [facility] 08-02-2024 influenza virus vaccine, unspecified formulation Xuan Echevarria MD Work Phone: [facility] 08-21-2023 influenza virus vaccine, unspecified formulation Alka Sheppard PT Work Phone: [facility] 11-30-2022 influenza virus vaccine, unspecified formulation Kathie Ferreira MD Work Phone: [facility] 04-12-2021 COVID-19 vaccine, fu ll dose (MODERNA) Kathie Ferreira MD Work Phone: [facility] 03-15-2021 COVID-19 vaccine, fu ll dose (MODERNA) Kathie Ferreira MD Work Phone: [facility] 08-20-[address] Sumanth Krause Work Phone: [facility] 08-20-2018 influenza, seasonal, injectable Kathie Ferreira MD Work Phone: [facility] Payers Date Payer Category Payer Self-pay [id number] 2014 [employer]aged [employer] - HMO ANTHEM BLUE CROSS [id number] 2012 Blue Cross Blue Shield BLUE CARD PPO OOS [id number] 2012 Unknown ANTHEM BLUE CARD PPO OOS [id number] 2012-Present [phone] [place] [id number] PPO [id number] 2012 Unknown ANTHEM BLUE CARD PPO OOS [id number] 2012-Present [phone] [place] [id number] PPO [id number] 2012 Unknown [id number] 1970 Unknown [id number] 2.16.840.1.647473.3.579. 2.627 1970 Unknown [id number] 2.16.840.1.867559.3.579. 2.278 1970 Unknown [id number] 2.16.840.1.885198.3.579. 2.278 1970 Unknown [id number] 2.16.840.1.751979.3.579. 2.278 1970 Unknown [id number] 2.16.840.1.585576.3.579. 2.278 1970 Unknown [id number] 2.16.840.1.507546.3.579. 2.278 1970 Unknown [id number] 2.16.840.1.944267.3.579. 2.278 1970 Unknown [id number] 2.16.840.1.542093.3.579. 2.278 1970 Unknown [id number] 2.16.840.1.182188.3.579. 2.278 1970 Unknown [id number] 2.16.840.1.816640.3.579. 2.278 1970 Unknown [id number] 2.16.840.1.083614.3.579. 2.278 1970 Unknown [id number] 2.16.840.1.752497.3.579. 2.278 1970 Unknown [id number] 2.16.840.1.640213.3.579. 2.172 Unknown [id number] 2.16.840.1.395624.3.579. 2.462 Unknown [id number] 2.16.840.1.662899.3.579. 2.462 Unknown [id number] 2.16.840.1.826727.3.579. 2.462 Unknown [id number] 2.16.840.1.999592.3.579. 2.462 Unknown [id number] 2.16.840.1.489390.3.579. 2.462 Unknown [id number] 2.16.840.1.005064.3.579. 2.462 Unknown [id number] 2.16.840.1.651545.3.579. 2.462 Unknown [id number] 2.16.840.1.063501.3.579. 2.462 Unknown [id number] 2.16.840.1.917702.3.579. 2.462 Unknown [id number] 2.16.840.1.373891.3.579. 2.462 Social History Date Type Detail Facility [facility] Work Phone: Start: 02-11-2022 End: 10-30-2023 Tobacco smoking status MNIS Unknown if ever smoked [facility] Start: 10-07-2018 None [facility] Start: 01-04-2020 With Family [facility] Start: 1970 Sex Assigned At Female W [facility] Start: 07-03-2022 End: 03-14-2025 Tobacco smoking status NHIS Never smoked tobacco [facility] Start: 07-26-2021 End: 07-27-2025 Alcohol intake Current non-drinker of alcohol (finding) [facility] Start: 1970 Sex Assigned At Not on file C [facility] Start: 07-03-2022 End: 03-14-2025 Tobacco use and exposure Smokeless tobacco non-user [facility] Start: 07-03-2022 End: 08-06-2023 History of Social function [facility] Start: 07-03-2022 End: 08-06-2023 Tobacco use panel [facility] Start: 10-18-2012 PHQ2 Score 6 [facility] (I/We) worried vincent er (my/our) food would run out before (I/we) got money to buy more. Never true [facility] In the past 12 month s, was there a time when you were not able to pay the mortgage or rent on time? No [facility] Start: 06-17-2022 End: 03-10-2025 Sex Female (finding) [facility] Start: 03-14-2025 Alcoholic beverage intake Lifetime non-drinker (finding) [facility] How often do you nee d to have someone help you when you read instructions, pamphlets, or other written material from your doctor or pharmacy [SILS] Never [facility] Are you now , , , , never or living with a partner? [facility] Do you feel stress - tense, restless, nervous, or anxious, or unable to sleep at night because your mind is troubled all the time - these days [OSQ] Very much [facility] Start: 03-14-2025 Gender identity Identifies as female gender (finding) [facility] Start: 03-14-2025 Sexual orientation Heterosexual (sheryl adams) [facility] Goals Date Patient Goal Desired Activity /State Personal health goal Comment on above: Formatting of this n ote might be different from the original. Try to figure out what is triggering the depression. Relearn some of the skills that I have learned in the past. Functional Status Date Assessment Result Facility 02-24-2025 Are you deaf, or do you have serious difficulty hearing No 02/24/2025 11:10 AM Hernan Peters RN [facility] 02-24-2025 Are you blind, or do you have serious difficulty seeing, even when wearing glasses No 02/24/2025 11:10 AM Hernan Peters RN No [facility] 02-24-2025 Do you have serious difficulty walking or climbing stairs No 02/24/2025 11:10 AM Hernan Peters RN [facility] 02-24-2025 Do you have difficul ty dressing or bathing No 02/24/2025 11:10 AM Hernan Peters RN [facility] 02-24-2025 Because of a physica l, mental, or emotional condition, do you have difficulty doing errands alone such as visiting a physician's office or shopping No 02/24/2025 11:10 AM Hernan Peters RN No [facility] 10-23-2018 Are you deaf, or do you have serious difficulty hearing No 10/23/2018 12:43 PM Theodore Smith, LAVON No [facility] 10-23-2018 Are you blind, or do you have serious difficulty seeing, even when wearing glasses No 10/23/2018 12:43 PM Theodore Smith, LAVON [facility] 10-23-2018 Do you have serious difficulty walking or climbing stairs No 10/23/2018 12:43 PM Theodore Smith RN No [facility] 10-23-2018 Do you have difficul ty dressing or bathing No 10/23/2018 12:43 PM Theodore Smith RN No [facility] 10-23-2018 Because of a physica l, mental, or emotional condition, do you have difficulty doing errands alone such as visiting a physician's office or shopping No 10/23/2018 12:43 PM Theodore Smith RN No [facility] Mental Status Date Assessment Result Facility 02-24-2025 Because of a physica l, mental, or emotional condition, do you have serious difficulty concentrating, remembering, or making decisions No 02/24/2025 11:10 AM EDT Hernan Lizama RN No [facility] 04-20-2023 Cognitive function Level Of Cons ciousness Awake;Alert;Appropriate;Fol lows Commands [facility] Work Phone: 06-03-2022 Cognitive function Level Of Cons ciousness Awake;Alert;Appropriate [facility] Work Phone: 02-13-2022 Cognitive function Voice/Name [facility] Work Phone: 10-23-2018 Because of a physica l, mental, or emotional condition, do you have serious difficulty concentrating, remembering, or making decisions No 10/23/2018 12:43 PM Theodore Smith RN No [facility] Clinical Notes 06-30-2013 to 07-27-2025 Telephone Encounter - Jihan Espinoza RN - 07/27/2025 2:08 PM EDTTelephone Encounter - Jihan Espinoza RN - 07/27/2025 2:08 PM EDTTelephone Encounter - Sebastián Maldonado - 07/27/2025 9:53 AM EDT Note Date & Type Note Facility 07-27-2025 Telephone encounter Note Called pt, got identified VM and left message that xray order there for her if can try to get done [facility] today. Jihan Espinoza RN [facility] 07-27-2025 Miscellaneous Notes Called pt, got identified VM and left message that xray order there for her if can try to get done [facility] today. Jihan Espinoza RN Pt is having bloating and vomitting solids. Will be here today and would like to have an xray done while she is here. [phone] documented in this encounter [facility] 07-27-2025 Telephone encounter Note Pt is having bloating and vomitting solids. Will be here today and would like to have an xray done while she is here. [phone] [facility] 07-20-2025 History of Presen t illness Narrative Images from the original note were not included. Episode Visit Count: 6 Therapist That Will Accept/Oversee The Plan Of Care: Alka Sheppard, PT, DPT Start of Care Date: 03/31/24 Onset Date: 03/04/24 Plan of Care Certification Date: 07/20/25 Next Certification Due Date: 10/18/25 Patient Identified by Name and Date of : Yes REHABILITATION AND SPORTS THERAPY PHYSICAL THERAPY PROGRESS REPORT PLAN OF CARE UPDATE: Assessment: Gisela Turner demonstrates difficulty with physical activities, recreational activities, compromised bladder function, altered sexual function, and compromised bowel function due to muscle tension and spasms. The patient has progressed minimally toward goals at this time however does demonstrate benefit from manual and stretching interventions to reduce muscle spasms and pain. Patient continues to present with impairments in flexibility, independence in exercise, strength, stress management, symptom management, and tissue tenderness that interfere with bladder function, bowel function . Current prognosis is Fair due to: clinical presentation, chronic nature of impairments . The patient will benefit from continued skilled therapy services to meet the updated goals for this plan of care as noted below. Goals for Episode of Care: created initially on 03/31/24, updated on 06/07/2024, 06/28/2024, 07/28/2024, 09/29/2024, 11/01/2024, 12/20/2024, 01/24/2025, 03/07/2025, 04/20/2025, 07/20/2025 Patient demonstrates independence and compliance with home exercise program.- ONGOING Patient displays improved range of motion, coordination, and muscle dynamics of pelvic floor as evidenced by the ability to lengthen without paradoxical contraction at least 75% of the time to normalize bladder/bowel function; reduce pelvic pain.-GOAL MET Patient to correctly isolate pelvic floor muscles without compensatory patterns of breath holding and gluteal use to improve bladder/bowel control.-MOSTLY MET Patient reports having >4 bowel movements per week without use of enema, suppositories, and reduced need for supplementation to demonstrate improved bowel function.-GOAL MET, previously Patient reports increased water intake to >50 ounces/day to promote bladder and bowel health.-MOSTLY MET, previously Patient demonstrates ability to perform diaphragmatic breathing and relaxation practice independently to allow for decreased muscle tightness, decreased pain, and improved bladder/bowel function. -PROGRESSING, ongoing Patient will report 95% reduction in vaginal pain/burning within 12 weeks to enhance quality of life.- PROGRESSING, not met, better after botox and manual interventions Patient will report 0-1/10 pain with vaginal penetration within 12 weeks to improve tolerance for internal medical exams and sexual function - PROGRESSING Patient Goals: improve evacuation and defecation, reduce pelvic muscle pain and burning Time Frame for Goals and Treatment : 10/18/25 Planned Interventions, Frequency, and Duration: 1x every other week, 8 weeks Total Number of Visits Planned: 4 Patient to be seen for Therapeutic exercise (37459), Neuromuscular re-education (96338), Manual therapy (23312), Therapeutic activities (58810), Self-half-way management (09268), Patient/Family/Caregiver Education, Body Mechanics Training PLAN FOR NEXT VISIT: monitor progress post botox and manual interventions. superficial manual and external lower abdominal manual per tolerance. SUBJECTIVE: Pt reports burning symptom has returned- due for botox again next week. Bladder urgency has been bothersome lately. No leaks due to urgency. Frequently feeling the sensation of having to urinate and spasms. Functional Limitations: bladder function, bowel function Pain: Pain Additional Pain Information : Specific pain level not discussed in order to focus on movement/functional goals Post Treatment Pain Post Treatment Pain Level: Better (slightly) PROMIS Scales 07/19/2025 04/19/2025 03/01/2025 Higher is Better Self-Eff Symptom - T Score 46 (Average) 46 (Average) 42 (Average) Self-Eff Symptom - Percentile 34 34 21 07/19/2025 04/19/2025 03/01/2025 Lower is Better Pain Interference - T Score 59 (mild) 62 (moderate) 59 (mild) Pain Interference - Percentile 18 12 18 T-Score and Percentile Interpretation T-scores: mean of general population = 50. 5 points is clinically meaningfully difference Percentiles provide an indication of how the patient's score ranks in relation to the general population. Higher percentile rankings indicate better function/quality of life. 50th percentile is the average of the general population and indicates half of respondents had a worse score. OBJECTIVE MEASURES WITH LEVEL OF FUNCTION: Pelvic Floor Muscle Assessment Consent for pelvic assessment/testing and treatment: Patient was educated regarding pelvic floor physical therapy assessment/treatment which may include pelvic floor and girdle muscle assessment externally or internally (vaginal or rectal approach)., Patient verbalized consent for the above treatment approaches today. Patient understands they have control of the treatment and an opportunity to stop treatment at any time. Pelvic Floor Muscle Assessment: Muscle Dynamics Range of Motion: Decreased Non-relaxing pelvic floor : Present Pelvic Floor Manual Assessment Pelvic Floor Tenderness/Hyperactivity: Tested Vaginally in Tested Vaginally in : Supine/hooklying Levator Ani: Left (>R, mod tension and tencderness) Bulbocavernosus: Left (>R tension) Superficial transverse perineal: Bilateral (mild tension and tenderness) Ischiocavernosus: Left (>R, mod-severe restriction) Deep transverse perineal: Bilateral (mild tension and discomfort) Obturator internus: Bilateral (min restriction and tenderness) Pelvic Region Sensation: Hypersensitive TREATMENT: Manual Therapy: 1: internal vaginal- mild distraction with increased focus on superficial layeral L>R side with breathing for PFM relaxation promotion 2: lower abdominal STM strumming toward midline 3: gentle colonic mobilization Skilled Intervention: Manual skills to improve joint mobility, ROM, and decrease pain. Utilized anatomy knowledge of the clinician, and assessment of patient's response to intervention. Neuromuscular Re-Education: 1: review of HEP 2: progress note 3: *standing hip flexor lunge stretch Skilled Intervention: Patient education as noted. Billing Manual TherapyTreatment Minutes: 23 Neuromuscular Re-Education Treatment Minutes: 15 Skilled Treatment Time Minutes (timed and untimed codes): 38 Total Session Time (minutes): 38 Session Start Time : 1142 Session Stop Time : 1220 Alka Sheppard PT documented in this encounter [facility] 07-20-2025 Note HNO ID: [id number] Author: ALKA SHEPPARD PT Service: ? Author Type: Physical Therapist Type: Progress Notes Filed: 07/20/2025 15:59 Note Text: Episode Visit Count: 6 Therapist That Will Accept/Oversee The Plan Of Care: Alka Sheppard PT, DPT Start of Care Date: 03/31/24 Onset Date: 03/04/24 Plan of Care Certification Date: 07/20/25 Next Certification Due Date: 10/18/25 Patient Identified by Name and Date of : Yes REHABILITATION AND SPORTS THERAPY PHYSICAL THERAPY PROGRESS REPORT PLAN OF CARE UPDATE: Assessment: Gisela Turner demonstrates difficulty with physical activities, recreational activities, compromised bladder function, altered sexual function, and compromised bowel function due to muscle tension and spasms. The patient has progressed minimally toward goals at this time however does demonstrate benefit from manual and stretching interventions to reduce muscle spasms and pain. Patient continues to present with impairments in flexibility, independence in exercise, strength, stress management, symptom management, and tissue tenderness that interfere with bladder function, bowel function . Current prognosis is Fair due to: clinical presentation, chronic nature of impairments . The patient will benefit from continued skilled therapy services to meet the updatedgoals for this plan of care as noted below. Goals for Episode of Care: created initially on 03/31/24, updated on 06/07/2024, 06/28/2024, 07/28/2024, 09/29/2024, 11/01/2024, 12/20/2024, 01/24/2025, 03/07/2025, 04/20/2025, 07/20/2025 Patient demonstrates independence and compliance with home exercise program.- ONGOING Patient displays improved range of motion, coordination, and muscle dynamics of pelvic floor as evidenced by the ability to lengthen without paradoxical contraction at least 75% of the time to normalize bladder/bowel function; reduce pelvic pain.-GOAL MET Patient to correctly isolate pelvic floor muscles without compensatory patterns of breath holding and gluteal use to improve bladder/bowel control.-MOSTLY MET Patient reports having >4 bowel movements per week without use of enema, suppositories, and reduced need for supplementation to demonstrate improved bowel function.-GOAL MET, previously Patient reports increased water intake to >50 ounces/day to promote bladder and bowel health.-MOSTLY MET, previously Patient demonstrates ability to perform diaphragmatic breathing and relaxation practice independently to allow for decreased muscle tightness, decreased pain, and improved bladder/bowel function. -PROGRESSING, ongoing Patient will report 95% reduction in vaginal pain/burning within 12 weeks to enhance quality of life.- PROGRESSING, not met, better after botox and manual interventions Patient will report 0-1/10 pain with vaginal penetration within 12 weeks to improve tolerance for internal medical exams and sexual function - PROGRESSING Patient Goals: improve evacuation and defecation, reduce pelvic muscle pain and burning Time Frame for Goals and Treatment : 10/18/25 Planned Interventions, Frequency, and Duration: 1x every other week, 8 weeks Total Number of Visits Planned: 4 Patient to be seen for Therapeutic exercise (09703), Neuromuscular re-education (17498), Manual therapy (01663), Therapeutic activities (25686), Self-half-way management (38997), Patient/Family/Caregiver Education, Body Mechanics Training PLAN FOR NEXT VISIT: monitor progress post botox and manual interventions. superficial manual and external lower abdominal manual per tolerance. SUBJECTIVE: Pt reports burning symptom has returned- due for botox again next week. Bladder urgency has been bothersome lately. No leaks due to urgency. Frequently feeling the sensation of having to urinate and spasms. Functional Limitations: bladder function, bowel function Pain: Pain Additional Pain Information : Specific pain level not discussed in order to focus on movement/functional goals Post Treatment Pain Post Treatment Pain Level: Better (slightly) PROMIS Scales 07/19/2025 04/19/2025 03/01/2025 Higher is Better Self-Eff Symptom - T Score 46 (Average) 46 (Average) 42 (Average) Self-Eff Symptom - Percentile 34 34 21 07/19/2025 04/19/2025 03/01/2025 Lower is Better Pain Interference - T Score 59 (mild) 62 (moderate) 59 (mild) Pain Interference - Percentile 18 12 18 T-Score and Percentile Interpretation T-scores: mean of general population = 50. 5 points is clinically meaningfully difference Percentiles provide an indication of how the patient's score ranks in relation to the general population. Higher percentile rankings indicate better function/quality of life. 50th percentile is the average of the general population and indicates half of respondents had a worse score. OBJECTIVE MEASURES WITH LEVEL OF FUNCTION: Pelvic Floor Muscle Assessment Consent for pelvic assessment/testing and treatment: Patient was e (more content not included)... [facility] 07-07-2025 Instructions Estrellita Ferreira MD - 07/07/2025 4:20 PM EDT Images from the original note were not included. Nice to see you Gisela We discussed your ongoing gastrointestinal symptoms, including bloating, constipation, and sensitivity to certain foods: - Continue using mesalamine suppositories as prescribed, as they are helping to manage your symptoms. - Avoid trigger foods that worsen your bloating, such as honey, tomatoes, and certain fruits. - Consider trying digestive enzymes like Beano or Intoleran to help with food digestion. I will send you information about Intoleran in your MyChart. [email or web address].[email or web address] - You may also try peppermint oil (e.g., Enteric-coated peppermint oil capsules) to help with gut symptoms. A brand is called FABIENNE Hurst - Incorporate prebiotic foods, such as yogurt, into your diet. I will send you a list of prebiotic foods that may be helpful. - If you choose to try a probiotic, Align is a good option to consider. - Practice diaphragmatic breathing exercises to help with bloating and abdominal distention. I will send you additional resources on this technique in your MyChart. We discussed your mental health and its impact on your symptoms: - Continue maximizing your mental health support and coping strategies, as stress and emotional health can significantly affect your gut function. We discussed your hydration and diet: - Aim to stay hydrated by drinking water, tea, or other tolerable fluids. If you find electrolyte drinks too sweet, consider trying coconut water or Buoy drops, which allow you to adjust the flavor. - Avoid protein supplements if the texture and taste are intolerable. We discussed follow-up care: - Your last colonoscopy was over a year ago. We will plan to repeat a flexible sigmoidoscopy in late September or October. I will submit the request for this procedure, and sedation will be provided to ensure your comfort. Please continue with your current treatment plan and reach out if your symptoms worsen or if you have any questions. I will send additional resources and recommendations to your MyChart. Estrellita Ferreira MD, MSc, [facility], [facility] Staff [employer], Department of Gastroenterology, Hepatology & Nutrition Digestive Disease [facility] [place] [facility] VISCOUS SOLUBLE FIBER Viscous soluble fibers are water-holding fibers which bulk up and soften stool. Start fiber GRADUALLY (add no more than 1 serving/day each week). Aim to eat at least 7-10 grams viscous soluble fiber per day. If you are not drinking at least 1.5 L fluid daily, match the increase in viscous soluble fiber with an additional 1-2 large glasses of water daily. This will help to avoid hard stool and excess gas. Citrucel is another good brand The absorption of some prescription drugs can be significantly affected by the presence of food and fiber in the upper gastrointestinal tract, particularly viscous soluble fiber. It is recommended to take fiber supplements at least 2 hr before or 2 hr after oral prescription medications. Good sources of viscous soluble fiber include: INFORMATION ON PROBIOTICS Add probiotics to your diet: Daily eat a yogurt or drink Kefir that has the Live & Active Cultures designation or supplement with High Value live cultures. Choose one that guarantees live cultures until expiration date. Lactobacillus salivarus can be a good choice for the symptoms of bloating, gas and abdominal pain. Some products that contain L. salivarus and were well rated by a consumer agency are: Renew Life Ultimate [facility] Nutrition Now PB 8 Now foods Probiotic 10 Healthy Origins 30 Probiotic XL 10 Strain Probiotic - Member's Amakem Nature's Bounty - Probiotic 10 - Available at [employer] Many of these are available on the everyArt website When on antibiotics, take your probiotics 2-3 hours after antibiotic dose. Probiotic foods: (fermented foods) Kefir: Tart-liquid yogurt. Look for Lifeway Kefir in the dairy section Kombucha: A probiotic tea with a jeane-carbonated taste Sauerkraut: finely cut raw cabbage Pickles: pickled cucumber Miso: soybean Tempeh: soybean Kimchi: pickled cabbage We had a nice discussion today regarding the causes, natural history, diagnosis and treatment of bloating. Bloating and abdominal distention have multiple causes including: --Increased intestinal gas, mostly from gut microflora fermentation. This can be from small intestinal bacteria or colonic bacteria --Impaired gas transit --Impaired gas evacuation --Abnormal Abdominal-Diaphragmatic Reflexes --Abnormal Sensation or Perception We discussed diagnostic options such as: --Colonoscopy to rule out obstructive process - we did this --Glucose breath test to evaluate for small intestinal bacterial overgrowth- often not accurate Treatment options for bloating/gas which include: --Low-FODMAP diet or digestion products to help digest FODMAP or use of digestive enzymes (intoleran or beano) --The probiotic Align has been shown in randomized controlled trials (RCTs) to reduce bloating (Hima et al) --Citalopram has been shown to reduce bloating in RCT (20mg for 3 weeks then increased to 40mg) (Stanford et al) Diaphragmatic Breathing -Exert taken from [facility] Diaphragmatic breathing and [employer] website- [email or web address]://[email or web address].org/condi [email or web address]-treatments/[email or web address]-dno-[email or web address] iver-health/[email or web address]-breath [email or web address] For those suffering from GI symptoms, diaphragmatic breathing offers specific benefits: Activating the diaphragm creates a gentle massaging action felt by internal organs like the intestines and stomach, which can reduce abdominal pain, urgency, bloating and constipation. While diaphragmatic breathing, you are facilitating the activation of the parasympathetic system, which can be thought of as the relaxation response of the body or the rest and digest state. Diaphragmatic breathing can help in specific GI-related situations: Diarrhea and urgency: Diaphragmatic breathing can help calm the digestive track and ease those moments of panic (i.e. I MUST get to the bathroom immediately! ). Constipation: Diaphragmatic breathing can be used while sitting on the toilet attempting to have a bowel movement to calm and massage the system. The result may be a more complete bowel movement. Learning to Practice Diaphragmatic Breathing Sit or lie in a comfortable place. Close your eyes. Place one hand on your chest and one hand on your abdomen. The bottom hand should do the moving. The top hand should remain still or only move as the bottom hand moves. Inhale through your nose for about 4 seconds, feeling your abdomen expand. (You may feel slight tension the first few times you inhale.) Hold your breath for 2 seconds. Exhale very slowly and steadily through your mouth for about 6 seconds. The mouth should be relaxed. Repeat for 5-15 minutes. When first learning diaphragmatic breathing, it is common to feel some uneasiness or lightheadedness. Quicken your breath if you feel light headed. After a session of diaphragmatic breathing, allow yourself time to adjust to your surroundings -- do not stand up too quickly. Diaphragmatic breathing is an excellent tool for relaxation, but it is a skill that requires practice. With practice it becomes easier over time, and eventually can be done with eyes open, while sitting, standing or even walking or driving. documented in this encounter [facility] 07-07-2025 History of Presen t illness Narrative [facility] SMALL BOWEL DISEASES AND NUTRITION FOLLOW UP VISIT: Date of direct communication: 07/07/25 This is a virtual visit. It required patient-provider interaction for the medical decision making as documented below. The patient verbally consented to a Virtual Visit with telephone back up as necessary. I have communicated my name and active licensure. The patient's identity and physical location were verified at the time of this visit. Either the patient or their legal utility sales representative has been informed of the risks and benefits of and alternatives to treatment through a remote evaluation and consents to proceed with the evaluation remotely. Start Time 1600; End Time 1625 Recording using You[employer] software for draft documentation of the visit was discussed with the patient/authorized utility sales representative; all questions welcomed and answered. Patient/authorized utility sales representative agreed to proceed Assessment IMPRESSION: Gisela Turner is a 54 year old female with history of GERD, MDD, Bipolar, prior ED, with abdominal bloating, constipation and pelvic floor dysfunction with recent proctitis seen on Colonoscopy 09/09 requiring intermittent courses of 5ASA suppositories. Seen in follow up. Giseal Turner had the opportunity to have all their concerns and questions addressed DIAGNOSTIC ISSUES AND PLAN: 1. 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 Rectal bleeding (K62.5) Rectal bleeding is currently controlled with regular use of mesalamine suppositories; no blood noted in recent stools. - Continue mesalamine suppositories as prescribed. - Repeat endoscopy in September or October to assess mucosal healing; sedation will be provided. 3. Pelvic floor dysfunction (M62.89) Patient continues pelvic floor stretches and uses vaginal gabapentin; reports some improvement in symptoms. - Continue current pelvic floor therapy and vaginal gabapentin as needed. 4. Chronic constipation (K59.09) 5. Constipation, unspecified constipation type (K59.00) Chronic constipation with intermittent bloating and abdominal distension; previously trialed Amitiza and Linzess without sustained benefit. - Continue dicyclomine as needed for abdominal discomfort. - Provided education on potential benefits of digestive enzymes (e.g., Beano, Intoleran) and soluble fiber (e.g., Citrucel) to aid digestion and reduce bloating. - Discussed diaphragmatic breathing techniques to address abdominal wall distension; will send additional resources via [employer]. 6. Bloating (R14.0) 7. Non-celiac gluten sensitivity (K90.41) Bloating is multifactorial, with contributions from dietary triggers, constipation, and non-celiac gluten sensitivity; symptoms are exacerbated by certain foods and stress. - Provided education on dietary modifications, including avoidance of known trigger foods and consideration of prebiotic foods (e.g., yogurt). - Discussed potential benefit of peppermint oil for gut symptoms. - Discussed potential benefit of probiotics (e.g., Align). 8. Gastro-esophageal reflux disease without esophagitis (K21.9) GERD is managed with Prevacid; no current nocturnal heartburn symptoms reported. - Continue Prevacid as prescribed. FOLLOW-UP: 4 denitaht hussein in person Estrellita Ferreira MD, MSc, [facility], [facility] Staff, Department of Gastroenterology, Hepatology & Nutrition [facility] [place] [facility] 07/07/25 Some aspects of note was written by ODILON kim PRIMARY PROBLEM: Rectal bleeding Last Seen in Clinic on 02/16/25, Where the plan was to try Amitizia INTERVAL HISTORY: Today patient states she has been going therough a lot The patient is a 54-year-old female with chronic constipation and abdominal bloating, presenting for follow-up. She reports ongoing abdominal bloating, which can be severe enough to cause visible distention and abdominal tightness. The bloating is sometimes triggered by specific foods, such as honey, certain fruits, and tomatoes (including tomato-based foods like pizza), but can also occur independently of food intake. She describes episodes where her abdomen becomes markedly distended, resembling a 3 months appearance, with distention lasting 1-2 days before resolving. She denies taking digestive enzymes, simethicone, or probiotics. She continues to use mesalamine suppositories regularly, which she finds helpful. She reports a large, formed bowel movement today, with complete evacuation and no blood. She notes that her stomach felt upset prior to this bowel movement, but she is unsure if this was related to something she ate. She denies nausea, vomiting, or hematochezia. She has previously tried Motegrity for about a week, but discontinued it due to lack of benefit. She takes dicyclomine as needed for stomach irritation, which she finds effective. She is not taking amitriptyline. She reports urinary urgency, which she is unable to explain. She continues to work with a pelvic floor therapist and performs stretches and abdominal massage. She has resumed using vaginal gabapentin, which she feels has provided some improvement. Her diet has been irregular due to recent stressors, including the sudden of her brother a few weeks ago and participation in a partial hospitalization program (PHP) and intensive outpatient program (IOP) since February. She reports increased anxiety and poor dietary choices during this period. She is now in her first week out of the program and is attempting to resume a more regular eating pattern. She drinks tea, soda, water, and occasional coffee, but does not feel fully hydrated. She has difficulty tolerating the taste and texture of protein supplements and electrolyte drinks. She enjoys non-dairy yogurt, such as Silk. Her most recent weight was 138 lbs. She continues to take Prevacid in the morning and denies nocturnal heartburn. She has a family history of non-celiac gluten sensitivity. Diagnostics: CURRENT NUTRITION SUPPORT: Ful diet some foods trigger symptoms Weight history: Last 5 Encounter Wt Readings: Date: Wt: 04/26/2025 63.1 kg (139 lb 1.8 oz) 02/18/2025 59 kg (130 lb) 01/25/2025 62.6 kg (138 lb 0.1 oz) 12/16/2024 61.6 kg (135 lb 12.9 oz) 10/19/2024 58.5 kg (129 lb) CURRENT MEDICATIONS: Current Outpatient Medications Medication Sig Dispense Refill mesalamine (CANASA) 1,000 mg suppository INSERT 1 RECTALLY ONCE DAILY AT BEDTIME 30 each 2 aspirin, enteric coated (ASPIRIN, ENTERIC COATED) 81 mg EC tablet Take 1 tablet by mouth once daily. 30 tablet 0 lamoTRIgine (LAMICTAL) 200 mg tablet Take 1 tablet by mouth daily at bedtime. Take with 1 tablet of Lamotrigine 25 mg for combined dose of 225 mg. 30 tablet 0 lamoTRIgine (LAMICTAL) 25 mg tablet Take 1 tablet by mouth daily at bedtime. Take with 1 tablet of Lamotrigine 200 mg for a combined total dose of 225 mg. 30 tablet 0 melatonin 3 mg tablet Take 1 tablet by mouth daily at bedtime. Take 1-2 hours before bedtime. 30 tablet 0 PRISTIQ 100 mg 24 hr tablet Take 100 mg by mouth once daily. lubiprostone (AMITIZA) 24 mcg capsule Take 1 capsule by mouth two times a day with meals. 60 capsule 2 estradiol (ESTRACE) 0.01 % (0.1 mg/gram) vaginal cream APPLY A PEA SIZED AMOUNT TO LOWER VAGINA AT BEDTIME TWICE WEEKLY 43 g 0 oxybutynin XL (DITROPAN XL) 5 mg 24 hr tablet Take 1 tablet by mouth once daily. 90 tablet 3 atorvastatin (LIPITOR) 20 mg tablet Take 20 mg by mouth once daily. QUEtiapine (SEROQUEL) 50 mg tablet Take 1 tablet by mouth daily at bedtime. 30 tablet 0 lansoprazole (PREVACID) 30 mg capsule Take 30 mg by mouth once daily. buPROPion SR (WELLBUTRIN SR) 100 mg 12 hr tablet Take 100 mg by mouth every morning. (Patient not taking: Reported on 04/26/2025) 0 Current Facility-Administered Medications Medication Dose Route Frequency Provider Last Rate Last Admin onabotulinum toxin type A 100 Units injection (BOTOX) 100 Units INTRAMUSCULAR q 3 MONTHS Rosie Sterling MD 100 Units at 04/26/25 1701 onabotulinum toxin type A 100 Units injection (BOTOX) 100 Units INTRAMUSCULAR q 3 MONTHS Rosie Sterling MD ALLERGIES: ALLERGIES Allergen Reactions Amoxicillin Hives Bactrim [Sulfametho* Rash Diphenhydramine Other: See Comments Moxifloxacin Hives Septra [Sulfamethox* Rash Trileptal [Oxcarbaz* Zomig [Zolmitriptan] Zyprexa [Olanzapine] PAST MEDICAL/SURGICAL HISTORY, SOCIAL HISTORY, AND FAMILY HISTORY: Reviewed and is unchanged aside from the changes documented in HPI. REVIEW OF SYSTEMS: ROS completed and negative outside of the systems documented in the HPI. Gastrointestinal: (+) abdominal bloating, (+) abdominal pain, (-) hematochezia Genitourinary: (+) urinary urgency INVESTIGATIONS: All available pertinent interval investigations were reviewed and were notable for: ENDOSCOPY/PATHOLOGY: 10/19/24 Flex Sig Impression: - The sigmoid colon and descending colon are normal. Biopsied. - Proctitis. Inflammation was found from the anus to the rectum. This was graded as Saxena Score 1 (mild disease), improved compared to previous examinations. Biopsied. Pathology A. Colon, sigmoid, 20 cm, biopsy: - Colonic mucosa with mild reactive/hyperplastic epithelial changes - No evidence of active or microscopic colitis. B. Rectum, biopsy: - Colonic mucosa with patchy mucosal hemorrhage, mild lamina propria edema, and patchy denuded surface epithelium. - No evidence of active or microscopic colitis. Colonoscopy 08/17/24 Impression: - Non-bleeding internal hemorrhoids. - Erythematous, friable (with contact bleeding) and inflamed mucosa in the rectum. Biopsied. - Biopsies were taken with a cold forceps from the entire colon for evaluation of microscopic colitis. A. Terminal ileum, biopsy: - Small intestinal mucosa with no significant pathologic change. B. Colon, random, biopsy: - Colonic mucosa with no significant pathologic change. C. Rectum, biopsy: - Active proctitis with mild architectural distortion, see comment. 03/10/24- VCE Indication: Mesenteric Lymphadenopathy Capsule reached the cecum but did not leave the colon for duration of this examination Prep quality: Adequate Limited views of the esophagus and stomach were normal Small bowel: normal, no masses, ulcerations or AVMs seen Colon obscured by stool Summary: Normal video endoscopy of the small bowel EGD/[place] 03/11/24 Impression: - Normal esophagus. - Z-line regular, 35 cm from the incisors. - Normal stomach. Biopsied. - Normal duodenal bulb, first portion of the duodenum, second portion of the duodenum, third portion of the duodenum and fourth portion of the duodenum. Biopsied. - Normal examined jejunum. Biopsied. Impression: - Perianal skin tags found on perianal exam. - The examined portion of the ileum was normal. - One 4 mm polyp in the sigmoid colon, removed with a cold snare. Resected and retrieved. - The examination was otherwise normal on direct and retroflexion views. A. Random jejunum, biopsy: - Small bowel mucosa with no significant diagnostic alteration. - No evidence of celiac disease or enteritis. B. Duodenum, biopsy: - Duodenal mucosa with no significant diagnostic alteration. - No evidence of celiac disease or duodenitis. C. Gastric antrum, biopsy: - Antral mucosa with no significant diagnostic alteration. - No morphologic evidence of Helicobacter pylori organisms. D. Gastric body, biopsy: - Oxyntic mucosa with features suggestive of proton pump inhibitor effect. - No morphologic evidence of Helicobacter pylori organisms. E. Sigmoid colon polyp, biopsy: - Hyperplastic polyp. IMAGING: Stiz Markers 03/10 IMPRESSION: Progression of Sitz markers, but with markers remaining in the distal descending and rectosigmoid colon. LAB WORK: Latest Reference Range & Units 02/18/25 16:09 Sodium 136 - 144 mmol/L 139 Potassium 3.7 - 5.1 mmol/L 4.0 Chloride 98 - 107 mmol/L 102 CO2 22 - 30 mmol/L 26 BUN 7 - 21 mg/dL 12 Creatinine 0.58 - 0.96 mg/dL 0.84 Glucose 74 - 99 mg/dL 126 (H) Protein, Total 6.3 - 8.0 g/dL 7.1 Calcium 8.5 - 10.2 mg/dL 9.0 Albumin 3.9 - 4.9 g/dL 4.1 Bilirubin, Total 0.2 - 1.3 mg/dL 0.4 Alkaline Phosphatase 34 - 123 U/L 133 (H) ALT 7 - 38 U/L 20 AST 13 - 35 U/L 25 Anion Gap 8 - 15 mmol/L 11 CK 42 - 196 U/L 67 eGFR >=60 mL/min/1.73m 83 Ethanol <11 mg/dL <11 Total Cholesterol, Nonfasting <200 mg/dL 175 Triglycerides, Nonfasting <150 mg/dL 122 HDL Cholesterol, Nonfasting >39 mg/dL 57 LDL Cholesterol Calculated, Nonfasting <100 mg/dL 94 Non HDL Cholesterol, Nonfasting <130 mg/dL 118 VLDL Cholesterol, Nonfasting <30 mg/dL 24 Total Chol/HDL Ratio, Nonfasting <5.10 mg/dL 3.07 LDL/HDL Ratio, Nonfasting <2.54 mg/dL 1.65 Acetaminophen 10 - 30 ug/mL <5 (L) Salicylate 3.0 - 30.0 mg/dL <0.3 (L) Amphetamines, Urine Negative Negative Barbiturates, Urine Negative Negative Benzodiazepines, Urine Negative Negative Cannabinoids, Urine Negative Negative Cocaine, Urine Negative Negative Ethanol, Urine <11 mg/dL <11 Opiates, Urine Negative Negative Oxycodone, Urine Negative Negative Phencyclidine, Urine Negative Negative Hemoglobin A1C 4.3 - 5.6 % 5.3 Estimated Average Glucose mg/dL 105 TSH 0.270 - 4.200 mIU/L 0.895 WBC 3.70 - 11.00 k/uL 4.67 RBC 3.90 - 5.20 m/uL 4.52 Hemoglobin 11.5 - 15.5 g/dL 12.9 Hematocrit 36.0 - 46.0 % 38.2 Platelet Count 150 - 400 k/uL 226 MCV 80.0 - 100.0 fL 84.5 MCH 26.0 - 34.0 pg 28.5 MCHC 30.5 - 36.0 g/dL 33.8 MPV 9.0 - 12.7 fL 8.6 (L) RDW-CV 11.5 - 15.0 % 12.5 DTYPE Auto Neut% % 36.4 Abs Neut (ANC) 1.45 - 7.50 k/uL 1.70 Lymph% % 45.6 Abs Lymph 1.00 - 4.00 k/uL 2.13 Hendricks% % 10.3 Abs Hendricks <0.87 k/uL 0.48 Eosin% % 6.2 Abs Eosin <0.46 k/uL 0.29 Baso% % 1.3 Abs Baso <0.11 k/uL 0.06 Immature Gran % % 0.2 IMMATURE GRANS (ABS) <0.10 k/uL <0.03 NRBC /100 WBC 0.0 Absolute nRBC <0.01 k/uL <0.01 Color yellow Light Yellow Clarity Clear Clear Specific Clifton, Ur 1.005 - 1.030 1.010 pH, Urine 5.0 - 8.0 6.0 Protein, Urine Trace, Negative Negative Glucose, Urine Trace, Negative Negative Ketones, Urine Negative, Trace Negative Bilirubin, Urine Negative Negative Hemoglobin/Blood,Ur Negative, Trace Negative Urobilinogen Normal Normal Leukest Negative, 25 Esau/uL Negative Nitrites Negative Negative WBC, Urine 0-5 /HPF 0-5 /HPF RBC, Urine 0-3 /HPF 0-3 /HPF (H): Data is abnormally high (L): Data is abnormally low Physical Exam: (Limited due to Virtual Visit) LMP 09/13/2013 General: Appears well Neurologic: Awake and alert. Total time of this patient encounter today was >40 mins, including: preparation for visit, direct time with the patient, examination, orders, review of records, and documentation. documented in this encounter [facility] 07-07-2025 Note HNO ID: [id number] Author: ESTRELLITA FERREIRA MD Service: ? Author Type: Physician Type: Progress Notes Filed: 07/07/2025 17:54 Note Text: [facility] SMALL BOWEL DISEASES AND NUTRITION FOLLOW UP VISIT: Date of direct communication: 07/07/25 This is a virtual visit. It required patient-provider interaction for the medical decision making as documented below. The patient verbally consented to a Virtual Visit with telephone back up as necessary. I have communicated my name and active licensure. The patient's identity and physical location were verified at the time of this visit. Either the patient or their legal utility sales representative has been informed of the risks and benefits of and alternatives to treatment through a remote evaluation and consents to proceed with the evaluation remotely. Start Time 1600; End Time 1625 Recording using You[employer]ew software for draft documentation of the visit was discussed with the patient/authorized utility sales representative; all questions welcomed and answered. Patient/authorized utility sales representative agreed to proceed Assessment IMPRESSION: Gisela Turner is a 54 year old female with history of GERD, MDD, Bipolar, prior ED, with abdominal bloating, constipation and pelvic floor dysfunction with recent proctitis seen on Colonoscopy 09/09 requiring intermittent courses of 5ASA suppositories. Seen in follow up. Gisela Turner had the opportunity to have all their concerns and questions addressed DIAGNOSTIC ISSUES AND PLAN: 1. 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 Rectal bleeding (K62.5) Rectal bleeding is currently controlled with regular use of mesalamine suppositories; no blood noted in recent stools. - Continue mesalamine suppositories as prescribed. - Repeat endoscopy in September or October to assess mucosal healing; sedation will be provided. 3. Pelvic floor dysfunction (M62.89) Patient continues pelvic floor stretches and uses vaginal gabapentin; reports some improvement in symptoms. - Continue current pelvic floor therapy and vaginal gabapentin as needed. 4. Chronic constipation (K59.09) 5. Constipation, unspecified constipation type (K59.00) Chronic constipation with intermittent bloating and abdominal distension; previously trialed Amitiza and Linzess without sustained benefit. - Continue dicyclomine as needed for abdominal discomfort. - Provided education on potential benefits of digestive enzymes (e.g., Beano, Intoleran) and soluble fiber (e.g., Citrucel) to aid digestion and reduce bloating. - Discussed diaphragmatic breathing techniques to address abdominal wall distension; will send additional resources via [employer]. 6. Bloating (R14.0) 7. Non-celiac gluten sensitivity (K90.41) Bloating is multifactorial, with contributions from dietary triggers, constipation, and non-celiac gluten sensitivity; symptoms are exacerbated by certain foods and stress. - Provided education on dietary modifications, including avoidance of known trigger foods and consideration of prebiotic foods (e.g., yogurt). - Discussed potential benefit of peppermint oil for gut symptoms. - Discussed potential benefit of probiotics (e.g., Align). 8. Gastro-esophageal reflux disease without esophagitis (K21.9) GERD is managed with Prevacid; no current nocturnal heartburn symptoms reported. - Continue Prevacid as prescribed. FOLLOW-UP: 4 shalini savage in person Estrellita Ferreira MD, MSc, [facility], [facility] Staff, Department of Gastroenterology, Hepatology AND Nutrition [facility] [place] [facility] 07/07/25 Some aspects of note was written by ODILON kim PRIMARY PROBLEM: Rectal bleeding Last Seen in Clinic on 02/16/25, Where the plan was to try Amitizia INTERVAL HISTORY: Today patient states she has been going therough a lot The patient is a 54-year-old female with chronic constipation and abdominal bloating, presenting for follow-up. She reports ongoing abdominal bloating, which can be severe enough to cause visible distention and abdominal tightness. The bloating is sometimes triggered by specific foods, such as honey, certain fruits, and tomatoes (including tomato-based foods like pizza), but can also occur independently of food intake. She describes episodes where her abdomen becomes markedly distended, resembling a ?3 months ? appearance, with distention lasting 1-2 days before resolving. She denies taking digestive enzymes, simethicone, or probiotics. She continues to use mesalamine suppositories regularly, which she finds helpful. She reports a large, formed bowel movement today, with complete evacuation and no blood. She notes that her stomach felt ?upset? prior to this bowel movement, but she is unsure if this was related to something she ate. She denies nausea, vomiting, or hematochezia. She has previo (more content not included)... [facility] 06-28-2025 Note Program: Psychiatric Intensive Outpatient Program Current Service/Group: Intensive Outpatient Program Discharge Type: Completed Goals - discharged to a lower level of care Date of Last SessionAttended: 06/28/2025 Number of Sessions attended: 28 Primary Diagnosis(es) at Admission: (F33.2) Severe episode of recurrent major depressive disorder, without psychotic features Primary Diagnosis(es) at Transfer/Discharge: (F33.2) Severe episode of recurrent major depressive disorder, without psychotic features Treatment Outcome Measures: PHQ-9 PHQ-9 pre-score: 22 PHQ-9 post-score: 9 PHILIPP-7 PHILIPP-7 pre-score: 16 PHILIPP-7 post-score: 6 Patient At Home Medication: Prior to Admission medications Medication Sig Start Date End Date Taking? Authorizing Provider aspirin 81 MG EC tablet Take 81 mg by mouth daily. Historical ProviderMD atorvastatin (Lipitor) 20 MG tablet Take 20 mg by mouth Nightly. Historical ProviderMD buPROPion SR (Wellbutrin SR) 100 MG 12 hr tablet Take 1 tablet (100 mg) by mouth daily. Do not crush, chew, or split. 06/03/25 09/01/25 Xuan Echevarria MD desvenlafaxine (Pristiq) 100 MG 24 hr tablet Take 1 tablet (100 mg) by mouth daily. Do not crush, chew, or split. 06/03/25 Xuan Echevarria MD estradiol (Estrace) 0.1 MG/GM vaginal cream Insert 2 g into the vagina Twice a Week. Apply a pea sized amount to lower vagina - at bedtime twice weely. Historical ProviderMD estradiol (Estrace) 2 MG tablet Take 1 mg by mouth Nightly. 1/2 tablet 2 mg tablet = 1 mg Historical ProviderMD LaMICtal 200 MG tablet Take 1 tablet (200 mg) by mouth Nightly. 06/03/25 09/01/25 Xuan Echevarria MD LaMICtal 25 MG tablet Take 1 tablet (25 mg) by mouth daily. Take with 200mg by mouth every day for total of 225mg 06/03/25 09/01/25 Xuan Echevarria MD lansoprazole (Prevacid) [address] capsule Take 30 mg by mouth every morning (before breakfast). Do not crush or chew. Historical ProviderMD lubiprostone (Amitiza) 24 MCG capsule Take 24 mcg by mouth 2 times daily (with meals). Historical ProviderMD mesalamine (Canasa) 1000 MG suppository Insert 1,000 mg into the rectum Nightly. Historical ProviderMD oxybutynin XL (Ditropan-XL) 5 MG 24 hr tablet Take 5 mg by mouth daily. Do not crush, chew, or split. Historical ProviderMD Pristiq 100 MG 24 hr tablet Take 1 tablet (100 mg) by mouth daily. Do not crush, chew, or split. 03/29/25 04/28/25 Harshal Mcallister DO QUEtiapine (SEROquel) 50 MG tablet Take 1 tablet (50 mg) by mouth Nightly. 06/03/25 09/01/25 Xuan Echevarria MD traZODone (Desyrel) 50 MG tablet Take 1 tablet (50 mg) by mouth Nightly. 06/03/25 09/01/25 Xuan Echevarria MD REFERRAL INFORMATION UPON DISCHARGE: Summary of Treatment Provided and Progress Towards Goal(s): Pt was active and invested in sessions. Pt was able to share about her personal situation and how she was working to implement personal boundaries with some of the people in her personal life. Pt said that this was difficult for her to do. Pt said that she was ready to graduate and was not wanting to participate in the following aftercare services. Include new referrals & patient's existing Behavior Health providers providing continuity of care Must include specific agency AND provider name Outpatient Behavioral Health Counseling Services: [facility]: [facility]: Other: None/NA Additional Comments (optional): Use the many skills you learned in treatment to manage symptoms/relationships, Use mindfulness activities to assist with relieving triggers/symptoms, Maintain medication compliance, Continue abstinence from all mood-altering substances, and Remember to engage in self-care activities on a regular basis [facility] 06-17-2025 Note Treatment plan updat ed with no changes made. PHQ-9 and PHILIPP-7 scores updated. [facility] 05-17-2025 Note Treatment plan revie wed with no changes made. PHQ-9 and PHILIPP 7 scores updated. [facility] 04-26-2025 History of Presen t illness Narrative Images from the original note were not included. [facility] SECTION FOR CHRONIC PELVIC PAIN OUTPATIENT VISIT DATE 04/26/2025 OUTPATIENT VISIT TYPE FOLLOW UP CHIEF COMPLAINT Gisela Turner is a 54 year old female who presents for botox injections. HISTORY OF PRESENT ILLNESS Gisela is a 54 year old female who is in today for BOtox and accompanied by self. Since last visit: Took 6 weeks to kick in then has relief for a few months. Bladder and sexual intercourse felt better. Have done PFPT but sometimes have pain. Her cousnelor lefttriggered depression & was hospitalized And now in IOP Started on wellbutrin XL and got so distended and stopped it Intensity of pain: mild Average Pain level: 4 on a scale of 0-10 Emergency room visits for pain since last visit: no Level of physical activity and mobility: up in the air right now Quality of sleep: good Mood: not the greatest Side effects of medications for pain: Pain Scales SUMMARY FROM LAST VISIT Date: 01/25/25 Encounter Diagnosis ICD-10-CM 1. High-tone pelvic floor dysfunction M62.89 onabotulinum toxin type A 100 Units injection (BOTOX) BUPivacaine HCl 50 mg injection (SENSORCAINE) TRIGGER POINT INJECTION MULTI 1-2 MUSCLE GR L>> R extreme Pelvic floor pain Did try TPI w vaginal botox 100 units today Fu 6 wks virtula Consider referral to mar[facility] spear Follow up in 6 wks virtually TREATMENT HISTORY No specialty comments available. PHYSICAL EXAM BP 150/86 Wt 63.1 kg (139 lb 1.8 oz) LMP 09/13/2013 BMI 24.64 kg/m Physical Exam Ships Equipment Engineer offered: Patient accepts, visit chaperoned by Gonzalez Og. SENSITIVE EXAM: The sensitive examination was discussed with the Patient or Patient's Authorized Enterprise Resource Planner. As applicable, any other physician, advance practice provider, medical student, or other health professional student that will be observing or involved in the sensitive examination for educational or training purposes was discussed with the Patient or Authorized Enterprise Resource Planner. The Patient or Authorized Enterprise Resource Planner has agreed to proceed with the sensitive examination. (Sensitive examination includes inspection and/or palpation of the breasts, pelvis, prostate and anorectal regions). General: The patient is a well-appearing female in no acute distress. Examination Pelvic Floor Musculature RIGHT SIDED Pubococcygeus: 3 Iliococcygeus: 3 Coccygeus: 3 Obturator: 3 LEFT SIDED Pubococcygeus: 3 Iliococcygeus: 3 Coccygeus: 3 Obturator: 3 (Pain Scale 1 to 3, 3= extreme) RV exam - deferred LABS/IMAGING: ASSESSMENT/PLAN Encounter Diagnosis ICD-10-CM 1. High-tone pelvic floor dysfunction M62.89 TRIGGER POINT INJECTION MULTI 1-2 MUSCLE GR onabotulinum toxin type A 100 Units injection (BOTOX) BUPivacaine HCl 50 mg injection (SENSORCAINE) CYSTOSCOPY WHI Extreme pain 1.vag TPI & Botox done today Follow up in 3 month Procedure charge only Patient verbalized understanding of the plan of care and all questions were answered to her stated satisfaction. Written and verbal health teaching given to patient, patient verbalizes understanding and agrees with treatment plan. I personally interviewed, confirmed and edited the above information if obtained by others. Rosie Sterling MD ORDERS PLACED . Office Visit on 04/26/25 CYSTOSCOPY WHI TRIGGER POINT INJECTION MULTI 1-2 MUSCLE GR CYSTOSCOPY WHI onabotulinum toxin type A 100 Units injection (BOTOX) BUPivacaine HCl 50 mg injection (SENSORCAINE) CPP Summary: DIAGNOSES: Vulvodynia, high tone PFD, Dyspareunia Surgery 1. Colonoscopy 2012 2. D&C 2012 3. Laparoscopy 2012 4. Cholecystectomy 2005 5. Hysteroscopy 2012 6. Procedures (TPI, botox, pain bocks, etc) 1. 01/2025 B vag TPI & L botox 100 units , B vag TPI & B botox 04/26/25 Nonhormonal Medications 1. Gabapentin 4% cream Hormonal medications (IUD, control pill, GNRH) 1. Estradiol 2. Estrogen cream Services (GI, urology, pain psych,PFPT) 1. PFPT Has therawand <<<Procedure >>> UNIVERSAL PROTOCOL / SAFETY CHECKLIST Procedure to be Performed: vaginal trigger point injections and vaginal botox injections Sign In: A Moment of CARE was completed. Appropriate PPE (Personal Protective Equipment) worn by all providers involved with the procedure. Special equipment not required. Patient/Surrogate Stated/Verified: Patient name, Date of , Relevant allergies, and The intended procedure Time Out: Relevant labs, photos, and/or imaging studies have been reviewed. Intended patient and procedure match the source document(s) (e.g. consent, H&P, associated studies [imaging, pathology]) match the intended patient and procedure. Consent obtained and matches the intended procedure. Yes. Correct side/site is not applicable. Medications required for this procedure are verified. Fire risk assessed and is not applicable. Implants: are not applicable. Sign Out: Specimens are all correctly labeled and sent. All instruments, equipment, possible retained foreign bodies are accounted for. Yes. The post-procedure plan of care has been communicated to the patient or surrogate. UNIVERSAL PROTOCOL / SAFETY CHECKLIST Procedure to be performed: vaginal trigger point series Sign in Communication: Completed Time Out: Team Confirms the Correct Patient, Correct Procedure, Correct Site and Site Marking, Correct Position (if applicable), Prep and Dry Time (if applicable). Time: 415pm Affirmation of Time Out: YES Sign Out Discussion: Completed PROCEDURE NOTE: Area prepped with hibiclens and glydo 10 mL 0.25% bupivicaine mixed in a 10 mL syringe. Skin was prepped in a sterile fashion. R vag wall Affected area was injected in 1 muscle Groups with 10 mL of the bupivicaine solution using a 22g needle. Patient tolerated the procedure well. 3 areas 10 mL 0.25% bupivicaine mixed in a 10 mL syringe. Skin was prepped in a sterile fashion. L vag wall Affected area was injected Into 1 muscle groups with 10 mL of the bupivicaine solution using a 22g needle. Patient tolerated the procedure well. 3 areas Patient tolerated procedure well. 0.25% Bupivacaine 10 ML --- lot # [id number] EXP: 10/16/25 UNIVERSAL PROTOCOL / SAFETY CHECKLIST Procedure to be Performed: Vaginal botox injections Sign In: 420pm A Moment of CARE was completed. Personnel directly involved with the procedure wore the appropriate PPE (Personal Protective Equipment). No special equipment needed. Patient/Surrogate Stated/Verified: PATIENT VERIFIED(optional for EMERGENT procedures): Patient name, Date of , Relevant allergies, and The intended procedure Time Out Communication: Intended patient and procedure match the source documents. Consent documented and matches the intended procedure. No relevant labs, photos, and/or imaging studies were applicable for review. No correct side/site applicable for marking and visibility. Medications required for procedure verified. No fire risk assessment and interventions applicable. No implant(s) inserted. Sign Out: 425 pm SIGN OUT (optional for EMERGENT procedures): No specimen collected. No instruments, equipment or retained foreign bodies applicable. Post-procedure follow-up management communicated and Plan of Care Visit completed when applicable. Rosie Sterling MD UNIVERSAL PROTOCOL / SAFETY CHECKLIST Procedure to be performed: Vaginal botox series Sign in Communication: Completed Time Out: Team Confirms the Correct Patient, Correct Procedure, Correct Site and Site Marking, Correct Position (if applicable), Prep and Dry Time (if applicable). Time: 420pm Affirmation of Time Out: YES Sign Out Discussion: Completed PROCEDURE NOTE: Area prepped with hibiclens, glydo 10 ml of 100 units of botox mixed in 10 mL syringe. Skin was prepped in a sterile fashion. Right vaginal wall Affected area was injected in 1 muscle Groups (3areas) with 5 mL of the botox solution using a 22g needle. Left vaginal wall Affected area was injected Into 1 muscle groups (3 areas) with 5 ml of botox solution solution using a 22g needle. Patient tolerated the procedure well. Vaginal wall massaged for 10 seconds and patient performed kegel exercises 10 times following the procedure Patient tolerated procedure well. OnabotulinumtoxinA: office provided LOT:[id number] EXP: 09/15/2027 documented in this encounter [facility] 04-26-2025 Note HNO ID: [id number] Author: ROSIE STERLING MD Service: ? Author Type: Physician Type: Progress Notes Filed: 04/28/2025 12:51 Note Text: [facility] SECTION FOR CHRONIC PELVIC PAIN OUTPATIENT VISIT DATE 04/26/2025 OUTPATIENT VISIT TYPE FOLLOW UP CHIEF COMPLAINT Gisela Turner is a 54 year old female who presents for botox injections. HISTORY OF PRESENT ILLNESS Gisela is a 54 year old female who is in today for BOtox and accompanied by self. Since last visit: Took 6 weeks to kick in then has relief for a few months. Bladder and sexual intercourse felt better. Have done PFPT but sometimes have pain. Her cousnelor lefttriggered depression AND was hospitalized And now in IOP Started on wellbutrin XL and got so distended and stopped it Intensity of pain: mild Average Pain level: 4 on a scale of 0-10 Emergency room visits for pain since last visit: no Level of physical activity and mobility: up in the air right now Quality of sleep: good Mood: not the greatest Side effects of medications for pain: Pain Scales SUMMARY FROM LAST VISIT Date: 01/25/25 Encounter Diagnosis ICD-10-CM 1. High-tone pelvic floor dysfunction M62.89 onabotulinum toxin type A 100 Units injection (BOTOX) BUPivacaine HCl 50 mg injection (SENSORCAINE) TRIGGER POINT INJECTION MULTI 1-2 MUSCLE GR L>> R extreme Pelvic floor pain Did try TPI w vaginal botox 100 units today Fu 6 wks virtula Consider referral to maría spear Follow up in 6 wks virtually TREATMENT HISTORY No specialty comments available. PHYSICAL EXAM BP 150/86 Wt 63.1 kg (139 lb 1.8 oz) LMP 09/13/2013 BMI 24.64 kg/m? Physical Exam Ships Equipment Engineer offered: Patient accepts, visit chaperoned by Gonzalez Og. SENSITIVE EXAM: The sensitive examination was discussed with the Patient or Patient's Authorized Enterprise Resource Planner. As applicable, any other physician, advance practice provider, medical student, or other health professional student that will be observing or involved in the sensitive examination for educational or training purposes was discussed with the Patient or Authorized Enterprise Resource Planner. The Patient or Authorized Enterprise Resource Planner has agreed to proceed with the sensitive examination. (Sensitive examination includes inspection and/or palpation of the breasts, pelvis, prostate and anorectal regions). General: The patient is a well-appearing female in no acute distress. Examination Pelvic Floor Musculature RIGHT SIDED Pubococcygeus: 3 Iliococcygeus: 3 Coccygeus: 3 Obturator: 3 LEFT SIDED Pubococcygeus: 3 Iliococcygeus: 3 Coccygeus: 3 Obturator: 3 (Pain Scale 1 to 3, 3= extreme) RV exam - deferred LABS/IMAGING: ASSESSMENT/PLAN Encounter Diagnosis ICD-10-CM 1. High-tone pelvic floor dysfunction M62.89 TRIGGER POINT INJECTION MULTI 1-2 MUSCLE GR onabotulinum toxin type A 100 Units injection (BOTOX) BUPivacaine HCl 50 mg injection (SENSORCAINE) CYSTOSCOPY WHI Extreme pain 1.vag TPI AND Botox done today Follow up in 3 month Procedure charge only Patient verbalized understanding of the plan of care and all questions were answered to her stated satisfaction. Written and verbal health teaching given to patient, patient verbalizes understanding and agrees with treatment plan. I personally interviewed, confirmed and edited the above information if obtained by others. Rosie Sterling MD ORDERS PLACED . Office Visit on 04/26/25 CYSTOSCOPY WHI TRIGGER POINT INJECTION MULTI 1-2 MUSCLE GR CYSTOSCOPY WHI onabotulinum toxin type A 100 Units injection (BOTOX) BUPivacaine HCl 50 mg injection (SENSORCAINE) CPP Summary: DIAGNOSES: Vulvodynia, high tone PFD, Dyspareunia Surgery 1. Colonoscopy 2012 2. DANDC 2012 3. Laparoscopy 2012 4. Cholecystectomy 2005 5. Hysteroscopy 2012 6. Procedures (TPI, botox, pain bocks, etc) 1. 01/2025 B vag TPI AND L botox 100 units , B vag TPI AND B botox 04/26/25 Nonhormonal Medications 1. Gabapentin 4% cream Hormonal medications (IUD, control pill, GNRH) 1. Estradiol 2. Estrogen cream Services (GI, urology, pain psych,PFPT) 1. PFPT Has therawand << >> UNIVERSAL PROTOCOL / SAFETY CHECKLIST Procedure to be Performed: vaginal trigger point injections and vaginal botox injections Sign In: A Moment of CARE was completed. Appropriate PPE (Personal Protective Equipment) worn by all providers involved with the procedure. Special equipment not required. Patient/Surrogate Stated/Verified: Patient name, Date of , Relevant allergies, and The intended procedure Time Out: Relevant labs, photos, and/or imaging studies have been reviewed. Intended patient and procedure match the source document(s) (e.g. consent, HANDP, associated studies [imaging, pathology]) match the intended patient and procedure. Consent obtained and matches the intended procedure. Yes. Correct side/site is (more content not included)... [facility] 04-20-2025 Note HNO ID: [id number] Author: ALKA SHEPPARD PT Service: ? Author Type: Physical Therapist Type: Progress Notes Filed: 04/20/2025 13:04 Note Text: Episode Visit Count: 16 Therapist That Will Accept/Oversee The Plan Of Care: Alka Sheppard PT, DPT Start of Care Date: 03/31/24 Onset Date: 03/04/24 Plan of Care Certification Date: 01/24/25 Next Certification Due Date: 04/24/25 Patient Identified by Name and Date of : Yes REHABILITATION AND SPORTS THERAPY PHYSICAL THERAPY PROGRESS REPORT PLAN OF CARE UPDATE: Assessment: Gisela Turner demonstrates minimal improvement in altered sexual function and compromised bowel function. The patient has progressed toward goals. Patient continues to present with impairments in flexibility, independence in exercise, overall function, stress management, and symptom management that interfere with altered sexual function, physical activities . Current prognosis is Good due to: current objective clinical presentation, good overall health status, good support system/ coping skills . The patient will benefit from continued skilled therapy services to meet the updated goals for this plan of care as noted below. Goals for Episode of Care: created initially on 03/31/24, updated on 06/07/2024, 06/28/2024, 07/28/2024, 09/29/2024, 11/01/2024, 12/20/2024, 01/24/2025, 03/07/2025, 04/20/2025 Patient demonstrates independence and compliance with home exercise program.- ONGOING Patient displays improved range of motion, coordination, and muscle dynamics of pelvic floor as evidenced by the ability to lengthen without paradoxical contraction at least 75% of the time to normalize bladder/bowel function; reduce pelvic pain.-GOAL MET Patient to correctly isolate pelvic floor muscles without compensatory patterns of breath holding and gluteal use to improve bladder/bowel control.-MOSTLY MET Patient reports having >4 bowel movements per week without use of enema, suppositories, and reduced need for supplementation to demonstrate improved bowel function.-GOAL MET Patient reports increased water intake to >50 ounces/day to promote bladder and bowel health.-MOSTLY MET Patient demonstrates ability to perform diaphragmatic breathing and relaxation practice independently to allow for decreased muscle tightness, decreased pain, and improved bladder/bowel function. -PROGRESSING, ongoing Patient will report 95% reduction in vaginal pain/burning within 12 weeks to enhance quality of life.- PROGRESSING, not met Patient will report 0-1/10 pain with vaginal penetration within 12 weeks to improve tolerance for internal medical exams and sexual function - PROGRESSING Patient Goals: improve evacuation and defecation Time Frame for Goals and Treatment : 06/05/25 Planned Interventions, Frequency, and Duration: 1x every other week, 4 weeks (then taper) Total Number of Visits Planned: 4 Patient to be seen for Therapeutic exercise (20768), Neuromuscular re-education (80391), Manual therapy (21800), Therapeutic activities (20405), Self-half-way management (96049), Patient/Family/Caregiver Education, Body Mechanics Training PLAN FOR NEXT VISIT: monitor abdominal distension, continue with manual per tolerance. SUBJECTIVE: Pt reports incomplete emptying sensations. Also reports some fluid retention, had an echo and will f/u with MD regarding results and retention. Overall some improvements in vaginal burning and PFM pain.. Functional Limitations: altered sexual function, physical activities Pain: Pain Additional Pain Information : Specific pain level not discussed in order to focus on movement/functional goals Post Treatment Pain Post Treatment Pain Level: No Change PROMIS Scales 04/19/2025 03/01/2025 01/22/2025 Higher is Better Self-Eff Symptom - T Score 46 (Average) 42 (Average) 46 (Average) Self-Eff Symptom - Percentile 34 21 34 04/19/2025 03/01/2025 01/22/2025 Lower is Better Pain Interference - T Score 62 (moderate) 59 (mild) 53 (within normal limits) Pain Interference - Percentile 12 18 38 T-scores: mean of general population = 50. 5 points is clinically meaningfully difference Percentiles provide an indication of how the patient's score ranks in relation to the general population. Higher percentile rankings indicate better function/quality of life. 50th percentile is the average of the general population and indicates half of respondents had a worse score. OBJECTIVE MEASURES WITH LEVEL OF FUNCTION: Pelvic Floor Muscle Assessment Consent for pelvic assessment/testing and treatment: Patient was educated regarding pelvic floor physical therapy assessment/treatment which may include pelvic floor and girdle muscle assessment externally or internally (vaginal or rectal approach)., Patient verbalized consent for the above treatment approaches today. Patient understands they have control of the treatment and an opportunity to stop treatment at any time. (more content not included)... [facility] 04-20-2025 History of Presen t illness Narrative Images from the original note were not included. Episode Visit Count: 16 Therapist That Will Accept/Oversee The Plan Of Care: Alka Sheppard PT, DPT Start of Care Date: 03/31/24 Onset Date: 03/04/24 Plan of Care Certification Date: 01/24/25 Next Certification Due Date: 04/24/25 Patient Identified by Name and Date of : Yes REHABILITATION AND SPORTS THERAPY PHYSICAL THERAPY PROGRESS REPORT PLAN OF CARE UPDATE: Assessment: Gisela Turner demonstrates minimal improvement in altered sexual function and compromised bowel function. The patient has progressed toward goals. Patient continues to present with impairments in flexibility, independence in exercise, overall function, stress management, and symptom management that interfere with altered sexual function, physical activities . Current prognosis is Good due to: current objective clinical presentation, good overall health status, good support system/ coping skills . The patient will benefit from continued skilled therapy services to meet the updated goals for this plan of care as noted below. Goals for Episode of Care: created initially on 03/31/24, updated on 06/07/2024, 06/28/2024, 07/28/2024, 09/29/2024, 11/01/2024, 12/20/2024, 01/24/2025, 03/07/2025, 04/20/2025 Patient demonstrates independence and compliance with home exercise program.- ONGOING Patient displays improved range of motion, coordination, and muscle dynamics of pelvic floor as evidenced by the ability to lengthen without paradoxical contraction at least 75% of the time to normalize bladder/bowel function; reduce pelvic pain.-GOAL MET Patient to correctly isolate pelvic floor muscles without compensatory patterns of breath holding and gluteal use to improve bladder/bowel control.-MOSTLY MET Patient reports having >4 bowel movements per week without use of enema, suppositories, and reduced need for supplementation to demonstrate improved bowel function.-GOAL MET Patient reports increased water intake to >50 ounces/day to promote bladder and bowel health.-MOSTLY MET Patient demonstrates ability to perform diaphragmatic breathing and relaxation practice independently to allow for decreased muscle tightness, decreased pain, and improved bladder/bowel function. -PROGRESSING, ongoing Patient will report 95% reduction in vaginal pain/burning within 12 weeks to enhance quality of life.- PROGRESSING, not met Patient will report 0-1/10 pain with vaginal penetration within 12 weeks to improve tolerance for internal medical exams and sexual function - PROGRESSING Patient Goals: improve evacuation and defecation Time Frame for Goals and Treatment : 06/05/25 Planned Interventions, Frequency, and Duration: 1x every other week, 4 weeks (then taper) Total Number of Visits Planned: 4 Patient to be seen for Therapeutic exercise (85469), Neuromuscular re-education (52702), Manual therapy (29145), Therapeutic activities (27888), Self-half-way management (11691), Patient/Family/Caregiver Education, Body Mechanics Training PLAN FOR NEXT VISIT: monitor abdominal distension, continue with manual per tolerance. SUBJECTIVE: Pt reports incomplete emptying sensations. Also reports some fluid retention, had an echo and will f/u with MD regarding results and retention. Overall some improvements in vaginal burning and PFM pain.. Functional Limitations: altered sexual function, physical activities Pain: Pain Additional Pain Information : Specific pain level not discussed in order to focus on movement/functional goals Post Treatment Pain Post Treatment Pain Level: No Change PROMIS Scales 04/19/2025 03/01/2025 01/22/2025 Higher is Better Self-Eff Symptom - T Score 46 (Average) 42 (Average) 46 (Average) Self-Eff Symptom - Percentile 34 21 34 04/19/2025 03/01/2025 01/22/2025 Lower is Better Pain Interference - T Score 62 (moderate) 59 (mild) 53 (within normal limits) Pain Interference - Percentile 12 18 38 T-scores: mean of general population = 50. 5 points is clinically meaningfully difference Percentiles provide an indication of how the patient's score ranks in relation to the general population. Higher percentile rankings indicate better function/quality of life. 50th percentile is the average of the general population and indicates half of respondents had a worse score. OBJECTIVE MEASURES WITH LEVEL OF FUNCTION: Pelvic Floor Muscle Assessment Consent for pelvic assessment/testing and treatment: Patient was educated regarding pelvic floor physical therapy assessment/treatment which may include pelvic floor and girdle muscle assessment externally or internally (vaginal or rectal approach)., Patient verbalized consent for the above treatment approaches today. Patient understands they have control of the treatment and an opportunity to stop treatment at any time. Pelvic Floor Muscle Assessment: Muscle Dynamics Contracton Pressure: Moderate squeeze, felt all the way around finger surface Duration of Contraction: >3 seconds Recruitment of pelvic floor muscles: Coordinated Range of Motion: Decreased (mild) Relaxation Postcontraction: Yes Pelvic Floor Manual Assessment Upper abdominals: Bilateral (increased distension noted grossly throughout abdomen) Lower abdominals: Bilateral External Pelvic Region Tenderness/ Hyperactivity - Lower Extremity: Piriformis Buttock: Bilateral Piriformis: Bilateral Pelvic Floor Tenderness/Hyperactivity: Tested Rectally in Tested Rectally in : Sidelying Levator Ani: Left (vs R, mild-mod) Vitals BP: 138/78 (taken at end of session, L UE, seated) Pulse: 78 TREATMENT: Manual Therapy: 1: internal rectal sustained holds and gentle distraction L>R side focus 2: abdominal STM strumming toward midline 3: colonic mobilization in supine 4: prone STM to lumbar paraspinals and glutes Skilled Intervention: Manual skills to improve joint mobility, ROM, and decrease pain. Utilized anatomy knowledge of the clinician, and assessment of patient's response to intervention. Neuromuscular Re-Education: 1: review of HEP 2: progress note Skilled Intervention: Education and demonstration for posture and positioning for tone management. Patient education as noted. Billing Manual TherapyTreatment Minutes: 25 Neuromuscular Re-Education Treatment Minutes: 20 Skilled Treatment Time Minutes (timed and untimed codes): 45 Total Session Time (minutes): 50 Session Start Time : 1138 Session Stop Time : 1228 Alka Sheppard PT documented in this encounter [facility] 04-19-2025 Note Treatment plan revie wed with no changes made. PHQ-9 and PHILIPP-7 scores updated. [facility] 04-12-2025 Note Interim History: This patient was seen in follow-up for her for further evaluation and treatment of her depressive disorder with anxiety. Her vital signs were reviewed and are stable. She is experiencing some symptoms related to pulmonary venous congestion. She has an echocardiogram scheduled for this . She presents today to begin the [facility]. She is transitioning from [facility]. She was under the care of Xuan Echevarria MD while in [facility]. Dr. Echevarria is presently unavailable and the patient will be followed by this psychiatrist through the week. She says she is responding well to her present psychiatric medication regimen. She reports no adverse effects to the medication. She reports no new allergies. The patient denied present thoughts of self-harm or of harming others. She had no delusions or hallucinations. Mood remains mildly dysphoric and anxious but is improving. Affect is constricted. Thought processes are mildly ruminative. She ambulates without difficulty. She has no abnormal movements. Appetite was decreased due to bloating related to her pulmonary problems. Sleep is good. The patient is committed to participating in the [facility]. She has follow-up for individual psychotherapy through [facility]. She is also transitioned her outpatient psychiatric care from [facility] to [facility]. With patient reporting positive response to her present psychiatric medication regimen and without complaint of side effect, will make no change in medications at this time. The patient will begin the [facility]. Will make no other change in treatment at this time. Will follow in IOP as necessary. Target Signs/Symptoms: Depressive symptoms and anxiety Medication side effects: none ROS: Gastrointestinal: Appetite changeYes . Change in bowel habitsYes. Nausea None. VomitingNone. Neurologic: HeadacheNone. Sleep problemsNone. TremorNone. WeaknessNone. Objective: Vitals: 04/12/25 1016 BP: 136/80 BP Location: Left arm Patient Position: Sitting Pulse: 75 Resp: 16 Temp: 36.7 ?C (98.1 ?F) TempSrc: Temporal SpO2: 97% Physical Exam Results Examination: Mental Status Exam: GENERAL OBSERVATIONS :Mild distress Orientation As below Demeanor Mildly fretful Activity No gross psychomotor changes Eye Contact Good . SPEECH :. Rate Normal. Volume Within normal limits. Articulation Well articulated. Coherent Yes Spontaneous Yes. MOOD & AFFECT :. Depression Yes but improving. Anxiety Yes but improving. Anger None. Anhedonia None. Euphoria None. Affect Constricted THOUGHT PROCESS: Process Mildly ruminative. THOUGHT CONTENT :. Hallucinations None. Delusions No delusions. Suicidality No plan Homicidality None. Judgement Good Insight Good Orientation time: Yes, person: Yes, situation: Yes, place:Yes. Attention Good. Concentration Good. Memory Recent: intact, Remote:intact. GaitNormal. Fund of Knowledge normal. Condition: gradually improving Prognosis: Good. Treatment Modality: Medication management and supportive psychotherapy Response to Treatment: Good. Goals: Short Term Decrease depressive symptoms and anxiety. [employer] Maintain mood stability and level of function. Focus of Therapy/Additional Narrative:: Supportive. Duration Frequency of Therapy Beginning the [facility]. Individual Therapy Indefinite. Medication Management Indefinite. Sufficient ability to Benefit Therapy Good. Plan discussed with patient and agrees. Current Medications[1] Problem List Items Addressed This Visit Severe episode of recurrent major depressive disorder, without psychotic features (HCC) - Primary (Chronic) Will begin the [facility] Will continue present psychiatric treatment to include bupropion 150 mg daily, desvenlafaxine 100 mg daily, lamotrigine 25 mg daily and 200 mg nightly, Seroquel 50 mg nightly and trazodone 50 mg nightly Will follow in IOP as necessary Electronically signed by @ASHLIER@ on @TDNR@ at @NOWNR@ [1] Current Outpatient Medications: aspirin 81 MG EC tablet, Take 81 mg by mouth daily., Disp: , Rfl: atorvastatin (Lipitor) 20 MG tablet, Take 20 mg by mouth Nightly., Disp: , Rfl: buPROPion XL (Wellbutrin XL) 150 MG 24 hr tablet, Take 1 tablet (150 mg) by mouth every morning. Do not crush, chew, or split., Disp: 30 tablet, Rfl: 0 desvenlafaxine (Pristiq) 100 MG 24 hr tablet, Take 100 mg by mouth daily. Do not crush, chew, or split., Disp: , Rfl: estradiol (Estrace) 0.1 MG/GM vaginal cream, Insert 2 g into the vagina Twice a Week. Apply a pea sized amount to lower vagina - at bedtime twice weely., Disp: , Rfl: estradiol (Estrace) 2 MG tablet, Take 1 mg by mouth Nightly. 1/2 tablet 2 mg tablet = 1 mg, Disp: , Rfl: LaMICtal 200 MG tablet, Take 1 tablet (200 mg) by mouth Nightly., Disp: 30 tablet, Rfl: 0 LaMICtal 25 MG tabl (more content not included)... [facility] 04-06-2025 Radiology Diagnostic study note [facility] [address] [place], [place] [id number] Chest PA and Lateral MR#: [id number] Acct: [id number] Name: GISELA TURNER Rep #: [id number] : 1970 F 54 From: Anita Malave MD PCP: Dr. Sumanth Krause MD Status: RE G CLI Study:Chest PA and Lateral Date of Exam: 04/06/25 Exam# [id number] Ordering Dr: Sumanth Krause MD EXAM: XR Chest, 2 Views CLINICAL INDICATION: CHEST PAIN, SOB TECHNIQUE: Frontal and lateral views of the chest. COMPARISON: No relevant prior studies available. FINDINGS: LUNGS AND PLEURAL SPACES: Pulmonary venous congestion. No consolidation. No pneumothorax. HEART: Unremarkable. No cardiomegaly. MEDIASTINUM: Unremarkable. Normal mediastinal contour. BONES/JOINTS: Unremarkable. No acute fracture. RAD/Chest PA and Lateral IMPRESSION: Pulmonary venous congestion. Reading Location: [facility] CC: Dr. Sumanth Krause MD ~ Director Global Development: Signed [facility] 04-04-2025 Note Program: Partial Hos pitalization Program Current Service/Group: Partial Hospitalization Program Discharge Type: Completed Goals - discharged to a lower level of care Date of Last SessionAttended: 04/04/25 Number of Sessions attended: 13 Primary Diagnosis(es) at Admission: Mood disorder, unspecified Primary Diagnosis(es) at Transfer/Discharge: Mood disorder, unspecified Treatment Outcome Measures: PHQ-9 PHQ-9 pre-score: 22 PHQ-9 post-score: 16 PHILIPP-7 PHILIPP-7 pre-score: 16 PHILIPP-7 post-score: 9 Patient At Home Medication: Prior to Admission medications Medication Sig Start Date End Date Taking? Authorizing Provider aspirin 81 MG EC tablet Take 81 mg by mouth daily. Historical Provider, atorvastatin (Lipitor) 20 MG tablet Take 20 mg by mouth Nightly. Historical Provider, buPROPion XL (Wellbutrin XL) 150 MG 24 hr tablet Take 1 tablet (150 mg) by mouth every morning. Do not crush, chew, or split. 03/29/25 04/28/25 Harshal Mcallister DO desvenlafaxine (Pristiq) 100 MG 24 hr tablet Take 100 mg by mouth daily. Do not crush, chew, or split. Historical Provider, estradiol (Estrace) 0.1 MG/GM vaginal cream Insert 2 g into the vagina Twice a Week. Apply a pea sized amount to lower vagina - at bedtime twice weely. Historical Provider, estradiol (Estrace) 2 MG tablet Take 1 mg by mouth Nightly. 1/2 tablet 2 mg tablet = 1 mg Historical Provider, LaMICtal 200 MG tablet Take 1 tablet (200 mg) by mouth Nightly. 03/29/25 04/28/25 Harshal Mcallister DO LaMICtal 25 MG tablet Take 1 tablet (25 mg) by mouth daily. Take with 200mg by mouth every day for total of 225mg 03/29/25 04/28/25 Harshal Mcallister DO lansoprazole (Prevacid) [address] capsule Take 30 mg by mouth every morning (before breakfast). Do not crush or chew. Historical Provider, lubiprostone (Amitiza) 24 MCG capsule Take 24 mcg by mouth 2 times daily (with meals). Historical Provider, mesalamine (Canasa) 1000 MG suppository Insert 1,000 mg into the rectum Nightly. Historical Provider, oxybutynin XL (Ditropan-XL) 5 MG 24 hr tablet Take 5 mg by mouth daily. Do not crush, chew, or split. Historical Provider, Pristiq 100 MG 24 hr tablet Take 1 tablet (100 mg) by mouth daily. Do not crush, chew, or split. 03/29/25 04/28/25 Harshal Mcallister DO QUEtiapine (SEROquel) 50 MG tablet Take 1 tablet (50 mg) by mouth Nightly. 03/29/25 04/28/25 Harshal Mcallister DO traZODone (Desyrel) 50 MG tablet Take 1 tablet (50 mg) by mouth Nightly. 03/29/25 04/28/25 Harshal Mcallister DO Complete the Following for TRANSFER/CHANGE IN LEVEL OF CARE within [facility] Program: Internal Referral to next Level of Care: Psychiatric Intensive Outpatient Program Brief Summary of Treatment Provided and Follow-Up Transfer Recommendation(s): Pt completed 13 days of PHP and achieved stabilization. Pt recommended for lower level of care and was referred to Psych IOP. Therapist/Nurse: Alejandra Mead Schedule: [facility] 9:00am-12:00pm Scheduled Start Date: 04/08/25 REFERRAL INFORMATION UPON DISCHARGE: Summary of Treatment Provided and Progress Towards Goal(s): Pt completed PHP services and engaged in CBT, DBT, and ACT informed treatment, ART Therapy, and Music Therapy. Pt developed coping skill to manage sxs of impairment and experienced some reduction of sxs of impairment and an increase in functioning. Include new referrals & patient's existing Behavior Health providers providing continuity of care Must include specific agency AND provider name [facility] Other: None/NA Additional Comments (optional): Use the coping skills you learned in treatment to manage symptoms/relationships, Use mindfulness activities to assist with relieving triggers/symptoms, Maintain medication compliance, and Remember to engage in self-care activities on a regular basis [facility] 04-04-2025 Note Attestation signed by Xuan Echevarria MD at 04/04/2025 12:32 PM I saw and evaluated the patient, participating in the baeza portions of the service. I reviewed the resident?s note. I agree with the resident?s findings and plan. Xuan Echevarria MD Discharge Summary Gisela Turner : 1970 ADMIT DATE: 04/04/2025 DISCHARGE DATE: 04/04/2025 PRIMARY CARE PHYSICIAN: No primary care provider on file. VISIT STATUS: Admission CODE STATUS: No Order DISCHARGE DIAGNOSES: Active Problems: Mood disorder, unspecified Generalized anxiety disorder R/o PTSD HOSPITAL COURSE: Patient was evaluated on 03/16/25 for admission to [facility] for mood disorder, PHILIPP following a referral from outpatient psychiatric provider. Patient reports improvement in her depression and anxiety with treatment from [facility]. She reported learning coping skills that she was able to utilize in her life. Medication changes within the program were a switch from Wellbutrin SR 100mg every day to Wellbutrin XL 150mg every day. Patient reports improvement in her depression with this change. All other medications from outpatient provider were maintained. Patient denied side effects from medication regimen. Patient denied SI/ NSSI, HI and AVH on day of discharge. Denied access to firearms. Future oriented, reported a motivation to continue participating in mental health treatment. SIGNIFICANT DIAGNOSTIC STUDIES: None CONSULTANTS: None RECOMMENDED NEXT STEPS: AM IOP Follow up with [facility] DISCHARGE MEDICATIONS: Medication List ASK your doctor about these medications aspirin 81 MG EC tablet atorvastatin 20 MG tablet Commonly known as: Lipitor buPROPion XL 150 MG 24 hr tablet Commonly known as: Wellbutrin XL Take 1 tablet (150 mg) by mouth every morning. Do not crush, chew, or split. * desvenlafaxine 100 MG 24 hr tablet Commonly known as: Pristiq * Pristiq 100 MG 24 hr tablet Generic drug: desvenlafaxine Take 1 tablet (100 mg) by mouth daily. Do not crush, chew, or split. estradiol 0.1 MG/GM vaginal cream Commonly known as: Estrace estradiol 2 MG tablet Commonly known as: Estrace * LaMICtal 25 MG tablet Generic drug: lamoTRIgine Take 1 tablet (25 mg) by mouth daily. Take with 200mg by mouth every day for total of 225mg * LaMICtal 200 MG tablet Generic drug: lamoTRIgine Take 1 tablet (200 mg) by mouth Nightly. lansoprazole [address] capsule Commonly known as: Prevacid lubiprostone 24 MCG capsule Commonly known as: Amitiza mesalamine 1000 MG suppository Commonly known as: Canasa oxybutynin XL 5 MG 24 hr tablet Commonly known as: Ditropan-XL QUEtiapine 50 MG tablet Commonly known as: SEROquel Take 1 tablet (50 mg) by mouth Nightly. traZODone 50 MG tablet Commonly known as: Desyrel Take 1 tablet (50 mg) by mouth Nightly. * This list has 4 medication(s) that are the same as other medications prescribed for you. Read the directions carefully, and ask your doctor or other care provider to review them with you. DIET: No diet orders on file ACTIVITY: No restriction. COMPLEXITY OF FOLLOW UP: [x] Moderate Complexity: follow up within 7-14 calendar days (88013) [] Severe Complexity: follow up within 7 calendar days (08313) FOLLOW UP TESTING, PENDING RESULTS OR REFERRALS AT TRANSITIONAL CARE VISIT: [] Yes [x] No PENDING STUDIES: None DISPOSITION: Home FACILITY/HOME CARE AGENCY NAME: N/a Follow up with [facility] - [facility] [address] [place] [address] phone [phone] Alejandra Mead, phone [phone] Follow up on 04/05/2025 AM IOP: Friday, Friday & Friday: 9 am - 12 pm. Alejandra will call with a start date. [facility] [address] [place] [address] phone [phone] Follow up Follow up with Berenice Bowie, for counseling. [facility] [address] [place] [address] phone [phone] Follow up on 04/25/2025 Follow up with Katarina Nurse Practitioner. 04-25-25 1 pm. INSTRUCTIONS TO MA/SW: Please call patient on day after discharge (must document patient contacted within 2 business days of discharge). FOLLOW UP QUESTIONS FOR MA/SW: 1. Did you get medications filled and taking them as instructed from discharge? 2. Are you following your discharge instructions from your hospital stay? 3. Please confirm patient is scheduled for a follow up appointment within the above time frame. DISCHARGE TIME: > 30 minutes Patient seen and staffed with attending physician Dr. Xuan Echevarria SIGNED: HARSHAL MCALLISTER DO, PGY-IV 04/04/2025, 10:44 AM [facility] 03-30-2025 Note Did treatment plan r abrahamw with patient. Patient reports some progression in all areas, but continues to sometimes struggle with self harm. Patient updated PHQ9 and GAD7. [facility] 03-29-2025 Telephone encounter Note RX faxed with 6 refills. Araceli Khalil RN [facility] 03-29-2025 Miscellaneous Notes RX faxed with 6 refills. Araceli Khalil RN [facility] Retail RX order sheet to to complete. Last refill sent 11/11/24. Araceli Khalil RN This was rx through [facility] compounding do we have the rx to refill? Can call or I can resend please get [facility] refill sheet for me. Thanks documented in this encounter [facility] 03-29-2025 Telephone encounter Note [facility] Retail RX order sheet to RR to complete. Last refill sent 11/11/24. Araceli Khalil RN [facility] 03-29-2025 Telephone encounter Note This was rx through [facility] compounding do we have the rx to refill? Can call or I can resend please get [facility] refill sheet for me. Thanks [facility] 03-23-2025 Note HNO ID: [id number] Author: ALKA SHEPPARD PT Service: ? Author Type: Physical Therapist Type: Progress Notes Filed: 03/23/2025 13:02 Note Text: Episode Visit Count: 15 Therapist That Will Accept/Oversee The Plan Of Care: Alka Sheppard PT, DPT Start of Care Date: 03/31/24 Onset Date: 03/04/24 Plan of Care Certification Date: 01/24/25 Next Certification Due Date: 04/24/25 Patient Identified by Name and Date of : Yes REHABILITATION AND SPORTS THERAPY PHYSICAL THERAPY TREATMENT NOTE ASSESSMENT: Gisela Turner tolerated the session with decreased symptoms. She demonstrated improvements in PFM spasm reduction as noted on internal assessment and slight symptom reduction from beginning to end of session. The patient will continue to benefit from ongoing skilled physical therapy to progress toward set goals. PLAN FOR NEXT VISIT: continue with external and internal manual interventions for symptom relief SUBJECTIVE: PHP 9-3pm. Infrequent bowels and a lot of bloating lately. difficulty eating normally. Sandpaper sensation after intercourse recently. Pain: Pain Pain Level: 4 Pain Location: Vaginal Description: Burning Frequency: Intermittent Post Treatment Pain Post Treatment Pain Level: Better OBJECTIVE MEASURES WITH LEVEL OF FUNCTION: Pelvic Floor Pain with penetration: Pain during intercourse, Pain after intercourse Pelvic Floor Muscle Assessment Consent for pelvic assessment/testing and treatment: Patient was educated regarding pelvic floor physical therapy assessment/treatment which may include pelvic floor and girdle muscle assessment externally or internally (vaginal or rectal approach)., Patient verbalized consent for the above treatment approaches today. Patient understands they have control of the treatment and an opportunity to stop treatment at any time. Pelvic Floor Muscle Assessment: Muscle Dynamics Contracton Pressure: Moderate squeeze, felt all the way around finger surface Duration of Contraction: >3 seconds Recruitment of pelvic floor muscles: Coordinated Range of Motion: Decreased Ability to Lengthen pelvic floor: Inconsistently Relaxation Postcontraction: Partial, Delayed Involuntary Contraction: Yes Non-relaxing pelvic floor : Present (slight improvement this date vs prior sessions) Pelvic Floor Manual Assessment Upper abdominals: Bilateral Lower abdominals: Bilateral Pelvic Floor Tenderness/Hyperactivity: Tested Vaginally in Tested Vaginally in : Supine/hooklying Bulbocavernosus: Bilateral Superficial transverse perineal: Bilateral TREATMENT: Manual Therapy: 1: internal manual at superficial and 2nd layers, gentle sustained holds for MFR and pain relief 2: abdominal STM strumming toward midline 3: colonic mobilization in supine Skilled Intervention: Manual skills to improve joint mobility, ROM, and decrease pain. Utilized anatomy knowledge of the clinician, and assessment of patient's response to intervention. Neuromuscular Re-Education: 1: cat/cow with breath coordination x 10 2: sidelying thoracic rotation B x 5 3: tan pose with breathing and PFM relaxation Skilled Intervention: Patient education as noted. Billing Manual TherapyTreatment Minutes: 23 Neuromuscular Re-Education Treatment Minutes: 20 Skilled Treatment Time Minutes (timed and untimed codes): 43 Total Session Time (minutes): 44 Session Start Time : 1148 Session Stop Time : 1232 Alka Sheppard PT [facility] 03-23-2025 History of Presen t illness Narrative Episode Visit Count: 15 Therapist That Will Accept/Oversee The Plan Of Care: Alka Sheppard PT, DPT Start of Care Date: 03/31/24 Onset Date: 03/04/24 Plan of Care Certification Date: 01/24/25 Next Certification Due Date: 04/24/25 Patient Identified by Name and Date of : Yes REHABILITATION AND SPORTS THERAPY PHYSICAL THERAPY TREATMENT NOTE ASSESSMENT: Gisela Turner tolerated the session with decreased symptoms. She demonstrated improvements in PFM spasm reduction as noted on internal assessment and slight symptom reduction from beginning to end of session. The patient will continue to benefit from ongoing skilled physical therapy to progress toward set goals. PLAN FOR NEXT VISIT: continue with external and internal manual interventions for symptom relief SUBJECTIVE: PHP 9-3pm. Infrequent bowels and a lot of bloating lately. difficulty eating normally. Sandpaper sensation after intercourse recently. Pain: Pain Pain Level: 4 Pain Location: Vaginal Description: Burning Frequency: Intermittent Post Treatment Pain Post Treatment Pain Level: Better OBJECTIVE MEASURES WITH LEVEL OF FUNCTION: Pelvic Floor Pain with penetration: Pain during intercourse, Pain after intercourse Pelvic Floor Muscle Assessment Consent for pelvic assessment/testing and treatment: Patient was educated regarding pelvic floor physical therapy assessment/treatment which may include pelvic floor and girdle muscle assessment externally or internally (vaginal or rectal approach)., Patient verbalized consent for the above treatment approaches today. Patient understands they have control of the treatment and an opportunity to stop treatment at any time. Pelvic Floor Muscle Assessment: Muscle Dynamics Contracton Pressure: Moderate squeeze, felt all the way around finger surface Duration of Contraction: >3 seconds Recruitment of pelvic floor muscles: Coordinated Range of Motion: Decreased Ability to Lengthen pelvic floor: Inconsistently Relaxation Postcontraction: Partial, Delayed Involuntary Contraction: Yes Non-relaxing pelvic floor : Present (slight improvement this date vs prior sessions) Pelvic Floor Manual Assessment Upper abdominals: Bilateral Lower abdominals: Bilateral Pelvic Floor Tenderness/Hyperactivity: Tested Vaginally in Tested Vaginally in : Supine/hooklying Bulbocavernosus: Bilateral Superficial transverse perineal: Bilateral TREATMENT: Manual Therapy: 1: internal manual at superficial and 2nd layers, gentle sustained holds for MFR and pain relief 2: abdominal STM strumming toward midline 3: colonic mobilization in supine Skilled Intervention: Manual skills to improve joint mobility, ROM, and decrease pain. Utilized anatomy knowledge of the clinician, and assessment of patient's response to intervention. Neuromuscular Re-Education: 1: cat/cow with breath coordination x 10 2: sidelying thoracic rotation B x 5 3: tan pose with breathing and PFM relaxation Skilled Intervention: Patient education as noted. Billing Manual TherapyTreatment Minutes: 23 Neuromuscular Re-Education Treatment Minutes: 20 Skilled Treatment Time Minutes (timed and untimed codes): 43 Total Session Time (minutes): 44 Session Start Time : 1148 Session Stop Time : 1232 Alka Sheppard PT documented in this encounter [facility] 03-21-2025 Note Outpatient [facility] Individual or Family Therapy Progress Note Program: Partial Hospitalization Program Session Date: 03/21/25 Start Time: 1:40 PM End Time: 2:40 PM Session Participant(s): Patient only Summary of Session: Pt reports feeling overwhelmed with multiple family stressors. Pt reports difficulty practicing radical acceptance, I can to a point, but then things keep piling up. Pt reports continued difficulty with transitioning to a new therapist as well as frustration with feeling heard about medications. Pt was receptive to support. Pt reports having had SI, but it has lessened. Denied plan/intent. Therapeutic Intervention: Building rapport and engagement, Active listening, Supportive, Crisis Intervention/Planning, Psychoeducation, and Modeling Patient's Response to Intervention: Pt was receptive to support and reports gratitude for therapist offering for pt to speak to the psychiatrist tomorrow. Mental Status Exam: Appearance: Appropriately dressed and groomed and healthy looking Mood: anxious Affect: appropriate, congruent with mood, and full Behavior: Cooperative, Pleasant, appropriate, and engaging Speech: Appropriate and clear Cognition: Oriented x 4 Thought Process: Goal-directed Thought Content: No evidence of psychosis/delusional thought Progress Towards Goal(s): Minimal Additional Comments: NA Next Step: Continue with current services [facility] 03-10-2025 Note HNO ID: [id number] Author: ROSIE STERLING MD Service: ? Author Type: Physician Type: Progress Notes Filed: 03/10/2025 16:56 Note Text: CHRONIC PELVIC PAIN VIRTUAL VISIT PROGRESS NOTE Duration of Call: 20 minutes Zoom Platform This is a virtual visit. It required patient-provider interaction for the medical decision making as documented below. Patient identified by and name. I obtained consent from the patient to complete the visit virtually. Gisela Turner is a 54 year old female seen for follow up on chronic pelvic pain. HISTORY SINCE LAST VISIT: Patient reports that Botox took some time to kick in. She now can empty her bladder all the day. Side effects to Botox: only tired for the first few days. She reports 70% pain relief. Wiping can cause burning. The last time she had intercourse, she had no pain. Gabapentin did not help and made her super sleepy. LAST VISIT: 01/25/25 Encounter Diagnosis ICD-10-CM 1. High-tone pelvic floor dysfunction M62.89 onabotulinum toxin type A 100 Units injection (BOTOX) BUPivacaine HCl 50 mg injection (SENSORCAINE) TRIGGER POINT INJECTION MULTI 1-2 MUSCLE GR L>> R extreme Pelvic floor pain Did try TPI w vaginal botox 100 units today Fu 6 wks virtula Consider referral to maría spear Follow up in 6 wks virtually Relevant Labs/Imaging/Procedures: Labs: Images: Procedures: PAST MEDICAL HISTORY Diagnosis Date Abdominal pain, [...] Stroke Mother other (anorexia) Mother Heart Father No Known Problems Brother No Known Problems Brother No Known Problems Brother Arthritis Maternal Grandmother Heart Maternal Grandfather Arthritis Maternal Grandfather Breast Cancer Maternal Aunt Social History Tobacco Use Smoking status: Never Smokeless tobacco: Never Vaping Use Vaping status: Never Used Substance Use Topics Alcohol use: No Drug use: No Current Outpatient Medications Medication Sig Dispense Refill mesalamine (CANASA) 1,000 mg suppository 1 suppository by RECTAL route daily at bedtime. 30 each 2 aspirin, enteric coated (ASPIRIN, ENTERIC COATED) 81 mg EC tablet Take 1 tablet by mouth once daily. 30 tablet 0 traZODone (DESYREL) 50 mg tablet Take 1 tablet by mouth at bedtime as needed. 30 tablet 0 lamoTRIgine (LAMICTAL) 200 mg tablet Take 1 tablet by mouth daily at bedtime. Take with 1 tablet of Lamotrigine 25 mg for combined dose of 225 mg. 30 tablet 0 lamoTRIgine (LAMICTAL) 25 mg tablet Take 1 tablet by mouth daily at bedtime. Take with 1 tablet of Lamotrigine 200 mg for a combined total dose of 225 mg. 30 tablet 0 melatonin 3 mg tablet Take 1 tablet by mouth daily at bedtime. Take 1-2 hours before bedtime. 30 tablet 0 PRISTIQ 100 mg 24 hr tablet Take 100 mg by mouth once daily. lubiprostone (AMITIZA) 24 mcg capsule Take 1 capsule by mouth two times a day with meals. 60 capsule 2 estradiol (ESTRACE) 0.01 % (0.1 mg/gram) vaginal cream APPLY A PEA SIZED AMOUNT TO LOWER VAGINA AT BEDTIME TWICE WEEKLY 43 g 0 gabapentin in lipoderm topical cream 4% (CPD) Apply to affected area. External use only - not for vaginal/vulvar use (Patient taking differently: Apply to affected area as needed. External use only - not for vaginal/vulvar use) oxybutynin XL (DITROPAN XL) 5 mg 24 hr tablet Take 1 tablet by mouth once daily. 90 tablet 3 estradiol (ESTRACE) 2 mg tablet Take 1 tablet by mouth once daily. (Patient taking differently: Take 1 mg by mouth once daily.) 30 tablet 11 atorvastatin (LIPITOR) 20 mg tablet Take 20 mg by mouth once daily. QUEtiapine (SEROQUEL) 50 mg tablet Take 1 tablet by mouth daily at bedtime. 30 tablet 0 lansoprazole (PREVACID) 30 mg capsule Take 30 mg by mouth once daily. buPROPion SR (WELLBUTRIN SR) 100 mg 12 hr tablet Take 100 mg by mouth every morning. 0 Current Facility-Administered Medications Medication Dose Route Frequency Provider Last Rate Last Admin onabotulinum toxin type A 100 Units injection (BOTOX) 100 Units INTRAMUSCULAR q 3 MONTHS Rosie Sterling MD A (more content not included)... [facility] 03-07-2025 Note HNO ID: [id number] Author: ALKA SHEPPARD PT Service: ? Author Type: Physical Therapist Type: Progress Notes Filed: 03/07/2025 15:15 Note Text: Episode Visit Count: 14 Therapist That Will Accept/Oversee The Plan Of Care: Alka Sheppard PT, DPT Start of Care Date: 03/31/24 Onset Date: 03/04/24 Plan of Care Certification Date: 01/24/25 Next Certification Due Date: 04/24/25 Patient Identified by Name and Date of : Yes REHABILITATION AND SPORTS THERAPY PHYSICAL THERAPY PROGRESS REPORT PLAN OF CARE UPDATE: Assessment: Gisela Turner demonstrates minimal improvement in compromised bladder function, altered sexual function, and compromised bowel function. The patient has progressed toward goals. Patient continues to present with impairments in flexibility, independence in exercise, range of motion, strength, and symptom management that interfere with altered sexual function, physical activities . Current prognosis is Good due to: current objective clinical presentation, good overall health status, good support system/ coping skills . The patient will benefit from continued skilled therapy services to meet the updated goals for this plan of care as noted below. Goals for Episode of Care: created initially on 03/31/24, updated on 06/07/2024, 06/28/2024, 07/28/2024, 09/29/2024, 11/01/2024, 12/20/2024, 01/24/2025, 03/07/2025 Patient demonstrates independence and compliance with home exercise program.- ONGOING Patient displays improved range of motion, coordination, and muscle dynamics of pelvic floor as evidenced by the ability to lengthen without paradoxical contraction at least 75% of the time to normalize bladder/bowel function; reduce pelvic pain.-GOAL MET Patient to correctly isolate pelvic floor muscles without compensatory patterns of breath holding and gluteal use to improve bladder/bowel control.-MOSTLY MET Patient reports having >4 bowel movements per week without use of enema, suppositories, and reduced need for supplementation to demonstrate improved bowel function.-GOAL MET Patient reports increased water intake to >50 ounces/day to promote bladder and bowel health.-MOSTLY MET Patient demonstrates ability to perform diaphragmatic breathing and relaxation practice independently to allow for decreased muscle tightness, decreased pain, and improved bladder/bowel function. -PROGRESSING, ongoing Patient will report 95% reduction in vaginal pain/burning within 12 weeks to enhance quality of life.- PROGRESSING, not met Patient will report 0-1/10 pain with vaginal penetration within 12 weeks to improve tolerance for internal medical exams and sexual function - PROGRESSING Patient Goals: improve evacuation and defecation Time Frame for Goals and Treatment : 06/05/25 Planned Interventions, Frequency, and Duration: 1x every other week, 8 weeks (then teper as able) Total Number of Visits Planned: 6 Patient to be seen for Therapeutic exercise (61224), Neuromuscular re-education (79550), Manual therapy (91521), Therapeutic activities (55193), Self-half-way management (72352), Patient/Family/Caregiver Education, Body Mechanics Training PLAN FOR NEXT VISIT: external and internal manual for pain reduction and progress HEP as tolerated SUBJECTIVE: Recent admission to hospital for depression. Pelvic pain was calm for 2 weeks, but still having occasional vaginal burning while wiping. Appetite has been off, much more fatigue.. Functional Limitations: altered sexual function, physical activities Pain: Pain Additional Pain Information : Specific pain level not discussed in order to focus on movement/functional goals Post Treatment Pain Post Treatment Pain Level: Better PROMIS Scales 03/01/2025 01/22/2025 12/20/2024 Higher is Better Self-Eff Symptom - T Score 42 (Average) 46 (Average) 48 (Average) Self-Eff Symptom - Percentile 21 34 42 03/01/2025 01/22/2025 12/20/2024 Lower is Better Pain Interference - T Score 59 (mild) 53 (within normal limits) 54 (within normal limits) Pain Interference - Percentile 18 38 34 T-scores: mean of general population = 50. 5 points is clinically meaningfully difference Percentiles provide an indication of how the patient's score ranks in relation to the general population. Higher percentile rankings indicate better function/quality of life. 50th percentile is the average of the general population and indicates half of respondents had a worse score. OBJECTIVE MEASURES WITH LEVEL OF FUNCTION: Pelvic Floor Pain with penetration: Pain during intercourse, Pain after intercourse Pelvic Floor Muscle Assessment Consent for pelvic assessment/testing and treatment: Patient was educated regarding pelvic floor physical therapy assessment/treatment which may include pelvic floor and girdle muscle assessment externally or internally (vaginal or rectal approach)., Patient verbalized consent for the above treatment approaches today. Dwight (more content not included)... [facility] 03-07-2025 History of Presen t illness Narrative Images from the original note were not included. Episode Visit Count: 14 Therapist That Will Accept/Oversee The Plan Of Care: Alka Sheppard PT, DPT Start of Care Date: 03/31/24 Onset Date: 03/04/24 Plan of Care Certification Date: 01/24/25 Next Certification Due Date: 04/24/25 Patient Identified by Name and Date of : Yes REHABILITATION AND SPORTS THERAPY PHYSICAL THERAPY PROGRESS REPORT PLAN OF CARE UPDATE: Assessment: Gisela Turner demonstrates minimal improvement in compromised bladder function, altered sexual function, and compromised bowel function. The patient has progressed toward goals. Patient continues to present with impairments in flexibility, independence in exercise, range of motion, strength, and symptom management that interfere with altered sexual function, physical activities . Current prognosis is Good due to: current objective clinical presentation, good overall health status, good support system/ coping skills . The patient will benefit from continued skilled therapy services to meet the updated goals for this plan of care as noted below. Goals for Episode of Care: created initially on 03/31/24, updated on 06/07/2024, 06/28/2024, 07/28/2024, 09/29/2024, 11/01/2024, 12/20/2024, 01/24/2025, 03/07/2025 Patient demonstrates independence and compliance with home exercise program.- ONGOING Patient displays improved range of motion, coordination, and muscle dynamics of pelvic floor as evidenced by the ability to lengthen without paradoxical contraction at least 75% of the time to normalize bladder/bowel function; reduce pelvic pain.-GOAL MET Patient to correctly isolate pelvic floor muscles without compensatory patterns of breath holding and gluteal use to improve bladder/bowel control.-MOSTLY MET Patient reports having >4 bowel movements per week without use of enema, suppositories, and reduced need for supplementation to demonstrate improved bowel function.-GOAL MET Patient reports increased water intake to >50 ounces/day to promote bladder and bowel health.-MOSTLY MET Patient demonstrates ability to perform diaphragmatic breathing and relaxation practice independently to allow for decreased muscle tightness, decreased pain, and improved bladder/bowel function. -PROGRESSING, ongoing Patient will report 95% reduction in vaginal pain/burning within 12 weeks to enhance quality of life.- PROGRESSING, not met Patient will report 0-1/10 pain with vaginal penetration within 12 weeks to improve tolerance for internal medical exams and sexual function - PROGRESSING Patient Goals: improve evacuation and defecation Time Frame for Goals and Treatment : 06/05/25 Planned Interventions, Frequency, and Duration: 1x every other week, 8 weeks (then teper as able) Total Number of Visits Planned: 6 Patient to be seen for Therapeutic exercise (97477), Neuromuscular re-education (58816), Manual therapy (62977), Therapeutic activities (77460), Self-half-way management (28777), Patient/Family/Caregiver Education, Body Mechanics Training PLAN FOR NEXT VISIT: external and internal manual for pain reduction and progress HEP as tolerated SUBJECTIVE: Recent admission to hospital for depression. Pelvic pain was calm for 2 weeks, but still having occasional vaginal burning while wiping. Appetite has been off, much more fatigue.. Functional Limitations: altered sexual function, physical activities Pain: Pain Additional Pain Information : Specific pain level not discussed in order to focus on movement/functional goals Post Treatment Pain Post Treatment Pain Level: Better PROMIS Scales 03/01/2025 01/22/2025 12/20/2024 Higher is Better Self-Eff Symptom - T Score 42 (Average) 46 (Average) 48 (Average) Self-Eff Symptom - Percentile 21 34 42 03/01/2025 01/22/2025 12/20/2024 Lower is Better Pain Interference - T Score 59 (mild) 53 (within normal limits) 54 (within normal limits) Pain Interference - Percentile 18 38 34 T-scores: mean of general population = 50. 5 points is clinically meaningfully difference Percentiles provide an indication of how the patient's score ranks in relation to the general population. Higher percentile rankings indicate better function/quality of life. 50th percentile is the average of the general population and indicates half of respondents had a worse score. OBJECTIVE MEASURES WITH LEVEL OF FUNCTION: Pelvic Floor Pain with penetration: Pain during intercourse, Pain after intercourse Pelvic Floor Muscle Assessment Consent for pelvic assessment/testing and treatment: Patient was educated regarding pelvic floor physical therapy assessment/treatment which may include pelvic floor and girdle muscle assessment externally or internally (vaginal or rectal approach)., Patient verbalized consent for the above treatment approaches today. Patient understands they have control of the treatment and an opportunity to stop treatment at any time. Pelvic Floor Muscle Assessment: Muscle Dynamics Contracton Pressure: Moderate squeeze, felt all the way around finger surface Duration of Contraction: >3 seconds Recruitment of pelvic floor muscles: Coordinated Range of Motion: Decreased Ability to Lengthen pelvic floor: Inconsistently Relaxation Postcontraction: Partial Non-relaxing pelvic floor : Present Pelvic Floor Manual Assessment Pelvic Floor Tenderness/Hyperactivity: Tested Vaginally in Tested Rectally in : Supine/hooklying Bulbocavernosus: Bilateral Superficial transverse perineal: Bilateral TREATMENT: Neuromuscular Re-Education: 1: progress report 2: discussion and encouragement to add walking regimen 5-20min 3x/wk then progress as tolerated Skilled Intervention: Reviewed and educated patient on additions/changes for home program as noted above with an (*). Provided written instruction for home program to facilitate proper performance and compliance. Correct performance of home program was facilitated with verbal, visual, and tactile cueing. Patient education as noted. Manual Therapy: 1: internal manual at superficial layer, reassessment and gentle sustained holds for MFR and pain relief 2: lower abdominal STM 3: TPR to iliacus in supine B Skilled Intervention: Manual skills to improve joint mobility, ROM, and decrease pain. Utilized anatomy knowledge of the therapist, and assessment of patient's response to intervention. Billing Manual TherapyTreatment Minutes: 25 Neuromuscular Re-Education Treatment Minutes: 17 Skilled Treatment Time Minutes (timed and untimed codes): 42 Total Session Time (minutes): 46 Session Start Time : 1149 Session Stop Time : 1235 Alka Sheppard PT documented in this encounter [facility] 03-02-2025 History of Presen t illness Narrative Radiology Service Progress Note PATIENT NAME: Gisela Turner DATE OF SERVICE: March 02, 2025 TIME: 1:10 PM PATIENT IDENTITY VERIFICATION COMPLETED USING TWO (2) IDENTIFIERS: Name and Date of confirmed by patient verbally. FALL SCREENING: Has the patient had 2 falls in the last year or 1 fall with injury or currently using an Ambulatory Assistive Device (Walker, Cane, Wheelchair, Crutches, etc.)? No PATIENT GENDER DATA: Assigned female at . status: : No status: NO. PATIENT RELEVANT IMPLANT DATA REVIEWED: Not Applicable PATIENT PRESENTS WITH AN IMPLANTABLE OR ATTACHED WEATHER ALGORITHM SCIENTIST: No RADIOLOGY DEPARTMENT: Mammography PERIPHERAL IV DATA: Not applicable SIGNED BY: Opal Meyers March 02, 2025 1:10 PM documented in this encounter [facility] 03-02-2025 Note HNO ID: [id number] Author: JUNE GÓMEZ Mammo Tech Service: ? Author Type: Electrolysis Operator Type: Progress Notes Filed: 03/02/2025 13:10 Note Text: Radiology Service Progress Note PATIENT NAME: Gisela Turner DATE OF SERVICE: March 02, 2025 TIME: 1:10 PM PATIENT IDENTITY VERIFICATION COMPLETED USING TWO (2) IDENTIFIERS: Name and Date of confirmed by patient verbally. FALL SCREENING: Has the patient had 2 falls in the last year or 1 fall with injury or currently using an Ambulatory Assistive Device (Walker, Cane, Wheelchair, Crutches, etc.)? No PATIENT GENDER DATA: Assigned female at . status: : No status: NO. PATIENT RELEVANT IMPLANT DATA REVIEWED: Not Applicable PATIENT PRESENTS WITH AN IMPLANTABLE OR ATTACHED WEATHER ALGORITHM SCIENTIST: No RADIOLOGY DEPARTMENT: Mammography PERIPHERAL IV DATA: Not applicable SIGNED BY: Opal Meyers March 02, 2025 1:10 PM [facility] 02-24-2025 Note HNO ID: [id number] Author: SHANICE GARCIA RPh Service: Pharmacy Author Type: Pharmacist Type: Plan of Care Filed: 02/24/2025 11:43 Note Text: DISCHARGE MEDICATION REVIEW BY PHARMACY Patient Name: Gisela Turner Account #: Data Unavailable Admission Date: 02/18/2025 Date of Contact: February 24, 2025 Time of Contact: 11:41 AM Medication list was reviewed by a Pharmacist for drug interactions or drug related problems:Yes Below is a summary of pharmacist recommendations discussed with LIP: No recommendations at this time from discharge medication list. Shanice Garcia RPh 02/24/2025 11:41 AM Medication List START taking these medications melatonin 3 mg tablet Take 1 tablet by mouth daily at bedtime. Take 1-2 hours before bedtime. CHANGE how you take these medications aspirin, enteric coated 81 mg EC tablet Commonly known as: ASPIRIN, ENTERIC COATED Take 1 tablet by mouth once daily. What changed: how much to take when to take this * lamoTRIgine 200 mg tablet Commonly known as: LaMICtal Take 1 tablet by mouth daily at bedtime. Take with 1 tablet of Lamotrigine 25 mg for combined dose of 225 mg. What changed: when to take this additional instructions * lamoTRIgine 25 mg tablet Commonly known as: LaMICtal Take 1 tablet by mouth daily at bedtime. Take with 1 tablet of Lamotrigine 200 mg for a combined total dose of 225 mg. What changed: You were already taking a medication with the same name, and this prescription was added. Make sure you understand how and when to take each. traZODone 50 mg tablet Commonly known as: DESYREL Take 1 tablet by mouth at bedtime as needed. What changed: how much to take reasons to take this * This list has 2 medication(s) that are the same as other medications prescribed for you. Read the directions carefully, and ask your doctor or other care provider to review them with you. CONTINUE taking these medications atorvastatin 20 mg tablet Commonly known as: LIPITOR buPROPion SR 100 mg 12 hr tablet Commonly known as: WELLBUTRIN SR * estradiol 2 mg tablet Commonly known as: ESTRACE Take 1 tablet by mouth once daily. * estradiol 0.01 % (0.1 mg/gram) vaginal cream Commonly known as: ESTRACE APPLY A PEA SIZED AMOUNT TO LOWER VAGINA AT BEDTIME TWICE WEEKLY gabapentin in lipoderm topical cream 4% (CPD) lansoprazole 30 mg capsule Commonly known as: PREVACID lubiprostone 24 mcg capsule Commonly known as: AMITIZA Take 1 capsule by mouth two times a day with meals. mesalamine 1,000 mg suppository Commonly known as: CANASA 1 Suppository by RECTAL route daily at bedtime. oxybutynin XL 5 mg 24 hr tablet Commonly known as: DITROPAN XL Take 1 tablet by mouth once daily. PRISTIQ 100 mg 24 hr tablet Generic drug: desvenlafaxine ER QUEtiapine 50 mg tablet Commonly known as: SEROquel Take 1 tablet by mouth daily at bedtime. * This list has 2 medication(s) that are the same as other medications prescribed for you. Read the directions carefully, and ask your doctor or other care provider to review them with you. STOP taking these medications gabapentin 100 mg capsule Commonly known as: NEURONTIN Where to Get Your Medications These medications were sent to [facility] [address] [facility] [id number] Hours: Friday-Friday, 8am-7pm, Friday 9am-1pm aspirin, enteric coated 81 mg EC tablet lamoTRIgine 200 mg tablet lamoTRIgine 25 mg tablet traZODone 50 mg tablet You can get these medications from any pharmacy You don't need a prescription for these medications melatonin 3 mg tablet [facility] 02-24-2025 Note HNO ID: [id number] Author: ALANNA HERNANDEZ CPhT Service: Pharmacy Author Type: Dredgemaster Type: Plan of Care Filed: 02/24/2025 11:07 Note Text: PHARMACY BEDSIDE DELIVERY SERVICE Patient Name: Gisela Turner The marked outpatient medications were Filled at: Clear and delivered to the patient's bedside to [facility]. Medication List START taking these medications melatonin 3 mg tablet Take 1 tablet by mouth daily at bedtime. Take 1-2 hours before bedtime. CHANGE how you take these medications aspirin, enteric coated 81 mg EC tablet Commonly known as: ASPIRIN, ENTERIC COATED Take 1 tablet by mouth once daily. What changed: how much to take when to take this * lamoTRIgine 200 mg tablet Commonly known as: LaMICtal Take 1 tablet by mouth daily at bedtime. Take with 1 tablet of Lamotrigine 25 mg for combined dose of 225 mg. What changed: when to take this additional instructions * lamoTRIgine 25 mg tablet Commonly known as: LaMICtal Take 1 tablet by mouth daily at bedtime. Take with 1 tablet of Lamotrigine 200 mg for a combined total dose of 225 mg. What changed: You were already taking a medication with the same name, and this prescription was added. Make sure you understand how and when to take each. traZODone 50 mg tablet Commonly known as: DESYREL Take 1 tablet by mouth at bedtime as needed. What changed: how much to take reasons to take this * This list has 2 medication(s) that are the same as other medications prescribed for you. Read the directions carefully, and ask your doctor or other care provider to review them with you. CONTINUE taking these medications atorvastatin 20 mg tablet Commonly known as: LIPITOR buPROPion SR 100 mg 12 hr tablet Commonly known as: WELLBUTRIN SR * estradiol 2 mg tablet Commonly known as: ESTRACE Take 1 tablet by mouth once daily. * estradiol 0.01 % (0.1 mg/gram) vaginal cream Commonly known as: ESTRACE APPLY A PEA SIZED AMOUNT TO LOWER VAGINA AT BEDTIME TWICE WEEKLY gabapentin in lipoderm topical cream 4% (CPD) lansoprazole 30 mg capsule Commonly known as: PREVACID lubiprostone 24 mcg capsule Commonly known as: AMITIZA Take 1 capsule by mouth two times a day with meals. mesalamine 1,000 mg suppository Commonly known as: CANASA 1 Suppository by RECTAL route daily at bedtime. oxybutynin XL 5 mg 24 hr tablet Commonly known as: DITROPAN XL Take 1 tablet by mouth once daily. PRISTIQ 100 mg 24 hr tablet Generic drug: desvenlafaxine ER QUEtiapine 50 mg tablet Commonly known as: SEROquel Take 1 tablet by mouth daily at bedtime. * This list has 2 medication(s) that are the same as other medications prescribed for you. Read the directions carefully, and ask your doctor or other care provider to review them with you. You might also be taking other medications not listed above. If you have questions about any of your other medications, talk to the person who prescribed them or your Primary Care Provider. STOP taking these medications gabapentin 100 mg capsule Commonly known as: NEURONTIN Alanna Hernandez [facility] PAGER: Alanna Hernandez ([facility]) [phone] February 24, 2025 11:06 AM [facility] 02-23-2025 Note HNO ID: [id number] Author: CARLA WARNER PA Service: Psychiatry Author Type: Physician Instrument Mechanic Type: Progress Notes Filed: 02/23/2025 14:18 Note Text: PROGRESS NOTE BEHAVIORAL HEALTH SERVICE DATE: 02/23/2025 SERVICE TIME: 12:00 PM The Interdisciplinary team met and reviewed treatment goals and discharge planning. Subjective INTERVAL HISTORY of last 24 hours: Today, Gisela Turner states she is not too bad. Patient states she does not think the Gabapentin is helping her at all. Patient states she is still not getting a good night's sleep. Patient states the Trazodone and Seroquel have helped but she still wakes up a lot. Patient consents to starting Melatonin at bedtime. Patient states she was feeling a little groggy this morning and states she thinks this is from the Gabapentin. Patient denies any other side effects from medications. Patient denies SI and thoughts of SIB. Patient is in agreement with plan to discharge tomorrow. Sleep as reported by nursing flowsheet: Sleep (Number of Hours): 7.75 (02/23/25 0600) (Objective portions of note included here for ease of comparison to patient's subjective report) Per chart review and staff report of last 24 hours: Compliant with medication: Yes. Emergency treatment order or PRN agitation medication past 24 hours: No. Seclusion/restraints required: No. Attending therapy groups: Yes. Agitated behavior : Observed during rounds No. Reported by staff No. Objective VITALS: Body mass index is 23.03 kg/m?. BP 129/77 Pulse 94 Temp 36.6 ?C (97.9 ?F) Resp 18 Ht 160 cm (5' 3) Wt 59 kg (130 lb) LMP 09/13/2013 SpO2 98% BMI 23.03 kg/m? MENTAL STATUS/PHYSICAL EXAMINATION: Mental Status Exam General/Sensorium: Alert AND interactive Orientation: AAOx3 Appearance: Appears well groomed and stated age, casually dressed and slim Eye contact: Good Demeanor: Cooperative Motor activity: Calm Speech: Appropriate Mood: - not too bad Affect: Constricted, euthymic and congruent with mood Thought process: Linear, logical, and goal-directed Associations: Normal Thought content: Focused on history, symptoms, and management, future goals or plans, discussing stressors and discharge planning Suicidal ideation: SI: no Plan: no Intent: no Homicidal ideation: HI: no Plan: no Intent: no Abnormal/psychotic thoughts: Absent Perceptions: She does not appear internally stimulated and denies hallucinations. Intelligence: Average Attention: Intact Memory: Short-term: Intact Long-term: Intact Language: Intact Fund of knowledge: Appropriate Insight: Fair Judgment: Fair Gait: Steady Station: Sitting GENERAL: Alert, no distress, cooperative NEUROLOGIC: No gross abnormal findings including cranial nerves 2-12. CURRENT/INPATIENT MEDICATIONS: Current Facility-Administered Medications Medication Dose Route Frequency hydrOXYzine HCl 25 mg tab(s) (ATARAX) 25 mg ORAL q 6 H PRN aluminum-magnesium hydroxide-simethicone 200-200-20 mg/5 mL 30 mL 30 mL ORAL q 4 H PRN magnesium hydroxide 400 mg/5 mL 30 mL (MOM) 30 mL ORAL DAILY PRN ibuprofen 600 mg tab(s) (MOTRIN) 600 mg ORAL q 6 H PRN LORazepam 0.25 mg tab(s) (ATIVAN) 0.25 mg ORAL q 6 H PRN aspirin, enteric coated 81 mg tab(s) 81 mg ORAL DAILY atorvastatin 20 mg tab(s) (LIPITOR) 20 mg ORAL AT BEDTIME pantoprazole DR 40 mg tab(s) (PROTONIX) 40 mg ORAL DAILY (6 AM) trospium 20 mg tab(s) (SANCTURA) 20 mg ORAL DAILY (7 AM) desvenlafaxine ER 100 mg tab(s) (PRISTIQ) 100 mg ORAL DAILY buPROPion SR 100 mg tab(s) (WELLBUTRIN SR) 100 mg ORAL DAILY traZODone 50 mg tab(s) (DESYREL) 50 mg ORAL AT BEDTIME PRN estradiol 1 g vaginal cream (ESTRACE) 1 g VAGINAL 2/WK GABAPENTIN 4% VAGINAL CREAM COMPOUNDED PATIENT OWN MEDICATION 4 each VAGINAL TID PRN dicyclomine 20 mg tab(s) (BENTYL) 20 mg ORAL QID PRN estradiol 1 mg tab(s) (ESTRACE) 1 mg ORAL AT BEDTIME acetaminophen 1,000 mg tab(s) (TYLENOL) 1,000 mg ORAL q 6 H PRN ondansetron orally disintegrating 4 mg tab(s) (ZOFRAN ODT) 4 mg ORAL q 6 H PRN methyl salicylate 15% - menthol 10% topical cream TOPICAL QID PRN QUEtiapine 50 mg tab(s) (SEROquel) 50 mg ORAL AT BEDTIME lamoTRIgine (LaMICtal) tab(s) 225 mg 225 mg ORAL AT BEDTIME melatonin 3 mg tab(s) 3 mg ORAL DAILY (8 PM) DATA: Diagnostic tests reviewed for today's visit: Most recent labs, imaging and EKG HEAD IMAGING (if indicated): Not indicated. LAB RESULTS: Lab Results Component Value Date/Time WBC 4.67 02/18/2025 04:09 PM WBC 6.64 10/17/2018 07:44 AM RBC 4.52 02/18/2025 04:09 PM RBC 4.70 10/17/2018 07:44 AM HCT 38.2 02/18/2025 04:09 PM HCT 41.7 10/17/2018 07:44 AM MCV 84.5 02/18/2025 04:09 PM MCV 88.7 10/17/2018 07:44 AM MCH 28.5 02/18/2025 04:09 PM MCH 29.4 10/17/2018 07:44 AM MCHC 33.8 02/18/2025 04:09 PM MCHC 33.1 10/17/2018 07:44 AM RDWCV 12.5 02/18/2025 04:09 PM RDWCV 13.1 10/03/2014 03:40 PM PLT 226 02/18/2025 04:09 PM (more content not included)... [facility] 02-22-2025 Note HNO ID: [id number] Author: CARLA WARNER PA Service: Psychiatry Author Type: Physician Instrument Mechanic Type: Progress Notes Filed: 02/22/2025 13:40 Note Text: PROGRESS NOTE BEHAVIORAL HEALTH SERVICE DATE: 02/22/2025 SERVICE TIME: 12:00 PM The Interdisciplinary team met and reviewed treatment goals and discharge planning. Subjective INTERVAL HISTORY of last 24 hours: Today, Gisela Turner states she is wanting to know what her Lamictal level is. Patient consents to dose increase of Lamictal. Patient states she went to art therapy this morning and states it was helpful for her. Patient states it allowed her to recall some of the skills she learned in DBT and CBT. Patient states she thinks art and being outdoors are good distraction techniques for her. Patient states her sleep has improved with the Trazodone. Patient denies feeling drowsy today. Patient states her migraine improved with Toradol. Patient denies SI and thoughts of self harm. Sleep as reported by nursing flowsheet: Sleep (Number of Hours): 8 (02/22/25 0600) (Objective portions of note included here for ease of comparison to patient's subjective report) Per chart review and staff report of last 24 hours: Compliant with medication: Yes. Emergency treatment order or PRN agitation medication past 24 hours: No. Seclusion/restraints required: No. Attending therapy groups: Yes. Agitated behavior : Observed during rounds No. Reported by staff No. Objective VITALS: Body mass index is 23.03 kg/m?. BP 114/73 Pulse 79 Temp 36.5 ?C (97.7 ?F) (Temporal) Resp 16 Ht 160 cm (5' 3) Wt 59 kg (130 lb) LMP 09/13/2013 SpO2 97% BMI 23.03 kg/m? MENTAL STATUS/PHYSICAL EXAMINATION: Mental Status Exam General/Sensorium: Alert AND interactive Orientation: AAOx3 Appearance: Appears well groomed and stated age, casually dressed and slim Eye contact: Fair Demeanor: Cooperative Motor activity: Calm Speech: Appropriate Mood: Anxious Affect: Anxious, congruent with mood and constricted Thought process: Coherent Associations: Normal Thought content: Focused on history, symptoms, and management, discussing stressors, discharge planning and future goals or plans Suicidal ideation: SI: no Plan: no Intent: no Homicidal ideation: HI: no Plan: no Intent: no Abnormal/psychotic thoughts: Absent Perceptions: She does not appear internally stimulated and denies hallucinations. Intelligence: Average Attention: Intact Memory: Short-term: Intact Long-term: Intact Language: Intact Fund of knowledge: Appropriate Insight: Fair Judgment: Fair Gait: Steady Station: Sitting GENERAL: Alert, no distress, cooperative NEUROLOGIC: No gross abnormal findings including cranial nerves 2-12. CURRENT/INPATIENT MEDICATIONS: Current Facility-Administered Medications Medication Dose Route Frequency hydrOXYzine HCl 25 mg tab(s) (ATARAX) 25 mg ORAL q 6 H PRN aluminum-magnesium hydroxide-simethicone 200-200-20 mg/5 mL 30 mL 30 mL ORAL q 4 H PRN magnesium hydroxide 400 mg/5 mL 30 mL (MOM) 30 mL ORAL DAILY PRN ibuprofen 600 mg tab(s) (MOTRIN) 600 mg ORAL q 6 H PRN LORazepam 0.25 mg tab(s) (ATIVAN) 0.25 mg ORAL q 6 H PRN aspirin, enteric coated 81 mg tab(s) 81 mg ORAL DAILY atorvastatin 20 mg tab(s) (LIPITOR) 20 mg ORAL AT BEDTIME pantoprazole DR 40 mg tab(s) (PROTONIX) 40 mg ORAL DAILY (6 AM) trospium 20 mg tab(s) (SANCTURA) 20 mg ORAL DAILY (7 AM) desvenlafaxine ER 100 mg tab(s) (PRISTIQ) 100 mg ORAL DAILY buPROPion SR 100 mg tab(s) (WELLBUTRIN SR) 100 mg ORAL DAILY traZODone 50 mg tab(s) (DESYREL) 50 mg ORAL AT BEDTIME PRN estradiol 1 g vaginal cream (ESTRACE) 1 g VAGINAL 2/WK GABAPENTIN 4% VAGINAL CREAM COMPOUNDED PATIENT OWN MEDICATION 4 each VAGINAL TID PRN dicyclomine 20 mg tab(s) (BENTYL) 20 mg ORAL QID PRN estradiol 1 mg tab(s) (ESTRACE) 1 mg ORAL AT BEDTIME lamoTRIgine 200 mg tab(s) (LaMICtal) 200 mg ORAL AT BEDTIME acetaminophen 1,000 mg tab(s) (TYLENOL) 1,000 mg ORAL q 6 H PRN ondansetron orally disintegrating 4 mg tab(s) (ZOFRAN ODT) 4 mg ORAL q 6 H PRN methyl salicylate 15% - menthol 10% topical cream TOPICAL QID PRN QUEtiapine 50 mg tab(s) (SEROquel) 50 mg ORAL AT BEDTIME gabapentin 100 mg cap(s) (NEURONTIN) 100 mg ORAL AT BEDTIME DATA: Diagnostic tests reviewed for today's visit: Most recent labs, imaging and EKG HEAD IMAGING (if indicated): Not indicated. LAB RESULTS: Lab Results Component Value Date/Time WBC 4.67 02/18/2025 04:09 PM WBC 6.64 10/17/2018 07:44 AM RBC 4.52 02/18/2025 04:09 PM RBC 4.70 10/17/2018 07:44 AM HCT 38.2 02/18/2025 04:09 PM HCT 41.7 10/17/2018 07:44 AM MCV 84.5 02/18/2025 04:09 PM MCV 88.7 10/17/2018 07:44 AM MCH 28.5 02/18/2025 04:09 PM MCH 29.4 10/17/2018 07:44 AM MCHC 33.8 02/18/2025 04:09 PM MCHC 33.1 10/17/2018 07:44 AM RDWCV 12.5 02/18/2025 04:09 PM RDWCV 13.1 10/03/2014 03:40 PM PLT 226 02/18/2025 04:09 PM PLT 254 10/17/2018 (more content not included)... [facility] 02-21-2025 Note HNO ID: [id number] Author: CARLA WARNER PA Service: Psychiatry Author Type: Physician Instrument Mechanic Type: Progress Notes Filed: 02/21/2025 15:09 Note Text: PROGRESS NOTE BEHAVIORAL HEALTH SERVICE DATE: 02/21/2025 SERVICE TIME: 12:30 PM The Interdisciplinary team met and reviewed treatment goals and discharge planning. Subjective INTERVAL HISTORY of last 24 hours: Today, Gisela Turner states she is feeling okay. Patient states she has had a migraine for the last two days. Patient states she has been taking tylenol and ibuprofen with no relief. Patient states Nurtec helps her migraines but states her insurance does not cover it. Patient states when she has a migraine this severe, she usually gets Toradol and Phenergan injections. Patient states she was brought to the hospital for worsening depression. Patient states she notices she has been more irritable. Patient states she has struggled with insomnia and low energy. Patient states these symptoms started when she discontinued her depakote and notes that these symptoms have continued to worsen. Patient states she has been having thoughts of self harming. Patient states she has started to have passive SI but denies active SI. Patient states her body is sensitive to medication changes. Patient states her Pristiq was increased 2-3 months ago. Patient states she thinks her symptoms have worsened since then. Patient states the increased dose of Seroquel has made her drowsy and states she wants dose to be decreased. Patient asks for Gabapentin to be restarted. Patient states she would consider restarting Depakote. Patient states she wants to wait until her Lamictal level results before she decides on medication changes. Sleep as reported by nursing flowsheet: Sleep (Number of Hours): 8 (02/21/25 0606) (Objective portions of note included here for ease of comparison to patient's subjective report) Per chart review and staff report of last 24 hours: Compliant with medication: Yes. Emergency treatment order or PRN agitation medication past 24 hours: No. Seclusion/restraints required: No. Attending therapy groups: Not applicable. Agitated behavior : Observed during rounds No. Reported by staff No. Objective VITALS: Body mass index is 23.03 kg/m?. BP 114/73 Pulse 79 Temp 36.5 ?C (97.7 ?F) (Temporal) Resp 16 Ht 160 cm (5' 3) Wt 59 kg (130 lb) LMP 09/13/2013 SpO2 97% BMI 23.03 kg/m? MENTAL STATUS/PHYSICAL EXAMINATION: Mental Status Exam General/Sensorium: Alert AND interactive Orientation: AAOx3 Appearance: Appears well groomed and stated age, casually dressed and slim Eye contact: Good Demeanor: Cooperative Motor activity: Calm Speech: Soft Mood: Depressed and anxious Affect: Dysphoric, constricted and congruent with mood Thought process: Coherent Associations: Normal Thought content: Focused on history, symptoms, and management, self harm thoughts, hopelessness themes and discussing stressors Suicidal ideation: SI: no Plan: no Intent: no Homicidal ideation: HI: no Plan: no Intent: no Abnormal/psychotic thoughts: Absent Perceptions: She does not appear internally stimulated and denies hallucinations. Intelligence: Average Attention: Intact Memory: Short-term: Intact Long-term: Intact Language: Intact Fund of knowledge: Appropriate Insight: Fair Judgment: Fair Gait: Steady Station: Sitting GENERAL: Alert, no distress, cooperative NEUROLOGIC: No gross abnormal findings including cranial nerves 2-12. CURRENT/INPATIENT MEDICATIONS: Current Facility-Administered Medications Medication Dose Route Frequency hydrOXYzine HCl 25 mg tab(s) (ATARAX) 25 mg ORAL q 6 H PRN aluminum-magnesium hydroxide-simethicone 200-200-20 mg/5 mL 30 mL 30 mL ORAL q 4 H PRN magnesium hydroxide 400 mg/5 mL 30 mL (MOM) 30 mL ORAL DAILY PRN ibuprofen 600 mg tab(s) (MOTRIN) 600 mg ORAL q 6 H PRN LORazepam 0.25 mg tab(s) (ATIVAN) 0.25 mg ORAL q 6 H PRN aspirin, enteric coated 81 mg tab(s) 81 mg ORAL DAILY atorvastatin 20 mg tab(s) (LIPITOR) 20 mg ORAL AT BEDTIME pantoprazole DR 40 mg tab(s) (PROTONIX) 40 mg ORAL DAILY (6 AM) trospium 20 mg tab(s) (SANCTURA) 20 mg ORAL DAILY (7 AM) desvenlafaxine ER 100 mg tab(s) (PRISTIQ) 100 mg ORAL DAILY buPROPion SR 100 mg tab(s) (WELLBUTRIN SR) 100 mg ORAL DAILY traZODone 50 mg tab(s) (DESYREL) 50 mg ORAL AT BEDTIME PRN estradiol 1 g vaginal cream (ESTRACE) 1 g VAGINAL 2/WK GABAPENTIN 4% VAGINAL CREAM COMPOUNDED PATIENT OWN MEDICATION 4 each VAGINAL TID PRN dicyclomine 20 mg tab(s) (BENTYL) 20 mg ORAL QID PRN estradiol 1 mg tab(s) (ESTRACE) 1 mg ORAL AT BEDTIME lamoTRIgine 200 mg tab(s) (LaMICtal) 200 mg ORAL AT BEDTIME acetaminophen 1,000 mg tab(s) (TYLENOL) 1,000 mg ORAL q 6 H PRN ondansetron orally disintegrating 4 mg tab(s) (ZOFRAN ODT) 4 mg ORAL q 6 H PRN methyl salicylate 15% - menthol 10% topical cream TOPICAL QID PRN keTORolac 30 mg in (more content not included)... [facility] 02-21-2025 Note HNO ID: [id number] Author: ALIDA STYLES LISW Service: Psychiatry Author Type: Rip Saw Operator Type: Plan of Care Filed: 02/21/2025 12:08 Note Text: Attestation signed by Carla Warner PA at 02/21/2025 2:11 PM BEHAVIORAL HEALTH INITIAL INPATIENT INTERDISCIPLINARY TREATMENT PLAN DATE INITIATED: 02/21/2025 12:05 PM Patient's Goal of Treatment: i want to be able to find some medication to help me start to feel better Active Hospital Problems *Bipolar depression (HCC) Criteria for Discharge: Elimination/reduction of presenting behavior: depression, SI Estimated length of stay: 3-5 days Interdisciplinary Treatment Plan Date Initiated: 02/18/25 Time Initiated: 2356 Patient Participation in Initial Treatment Plan: Yes Initial Treatment Plan Date: 02/21/25 Other Participants: N/A Strengths/Assets: Articulates thoughts and feelings clearly, Insight into illness Limitations: Difficulty with comprehension/understanding information Precautions indicated: Routine Precautions Individualized problems: Risk of harm to self Problem - Discharge Needs Date Initiated: 02/21/25 Time Initiated: 744 Discharge Needs: Encourage patient to utilize appropriate coping skills, Link/relink to community supports, Resolve acute symptoms through medication management Interventions - Nursing: Obtain baseline level of functioning on admission, Provide non-judgmental supportive, empathetic and comprehensive trauma informed care daily and as needed, Assess for signs of escalating emotions and help identify ways to appropriately express feelings as needed, Assess for escalating behavior and utilize de-escalation skills as needed Interventions - Social Work: Coordination with outpatient providers as needed, Assist with identifying community/social supports daily or as needed, Assess Social Determinants of Health upon admission or as needed, Create safety plan as needed, Encourage medication compliance daily or as needed, Encourage group participation daily or as needed, Resolve acute symptoms by working with interdisciplinary team Interventions - Therapy: Educate on/promote the utilization of Community Resources daily and as needed, Help patient to identify people, places and things that support recovery and stabilization of mental health, Promote medication compliance as needed, Promote ongoing practice of effective coping strategies daily and as needed, Promote the importance of following up with medical/behavioral health providers daily and as needed Post discharge referrals: Crisis Hotline Number, Psychiatry Identify next level of care: Home, with others Problem - Risk of Harm to Self As evidenced by: Suicidal thoughts or behavior, Voiced intentions of self-injurious behavior, Past and/or recent hx of self-injurious behavior Date Initiated: 02/18/25 Time Initiated: 2056 Short Term Goals: Refrain from self injurious behavior Target Date Short Term Goals: 02/21/25 Progress Towards Short Term Goals: Progressing [employer] Goals: Identify positive alternatives to self-injurious behavior Target Date [employer] Goals: 03/01/25 Progress Towards [employer] Goals: Not progressing Interventions - Nursing: Initiate safety measures to protect the patient from injury daily and as needed, Assist patient with developing a safety plan daily and as needed, Administer medications as indicated and monitor patient for effect daily, Provide education to the patient and/or family about the disease process and management as appropriate daily and as needed, Assess for signs of escalating emotions and help identify ways to appropriately express feelings as needed Medical Problems Medical Problems Identified: Yes Active Problems: Other: See Comment (HLD, Heart disease. NSTEMI) Staff in attendance and in agreement with this plan: Physician Instrument Mechanic: HERNÁN Ocasio Nurse: Rosie Rip Saw Operator: Alida This plan was reviewed with patient/family. Attending Psychiatrist: Dr. Fisher Patient declined to meet with entire interprofessional team at once, but met separately with treatment team members and participated in developing individual components of an overall care plan which was discussed together in a collaborative treatment team. Admitted with SI to cut, depression; restarting home medications, adding trazodone, possible additional medication adjustments; safety planning; will return home with spouse and follow with [facility] DOCUMENTED BY: MANNIE Cisse PATIENT NAME: Gisela Turner DATE: February 21, 2025 TIME: 12:05 PM [facility] 02-20-2025 Note HNO ID: [id number] Author: HERNAN LIZAMA RN Service: Nursing Author Type: Registered Nurse Type: Nursing Progress Note Filed: 02/20/2025 17:53 Note Text: Other: Pt c/o ongoing headache throughout the day. She requests and complies with PRN Ibuprofen. [facility] 02-20-2025 Note HNO ID: [id number] Author: SILVANO VARELA APRN.CNP Service: Psychiatry Author Type: Nurse Practitioner Type: Progress Notes Filed: 02/20/2025 14:13 Note Text: Summary: Progress Note, Psychiatry, 02/20/2025 PROGRESS NOTE BEHAVIORAL HEALTH SERVICE DATE: 02/20/2025 SERVICE TIME: 35 minutes with client, 55 minutes total including chart review and collaboration with nursing staff The Interdisciplinary team met and reviewed treatment goals and discharge planning. Subjective Today, Gisela is assessed by this ad writer in a conference room. She reports that her sleep was slightly better. She did wake up during the night a few times. She reports middle insomnia last night. She denies initial insomnia and bad dreams last night. She feels groggy this morning and feels it is related to the Gabapentin. She reports mild to moderate depression and anxiety today. She denies any SI, passive wishes for , HI, violent thoughts, hallucinations, and paranoia in the past 24 hours. She denies any thoughts of self harm or cutting the past 24 hours. She reports her appetite has been limited. She is experiencing some stomach pain/cramping. She has to avoid certain foods and notes having difficulty doing this here in the hospital with a limited menu. I offered to order a dance teacher/nutrition consult so they can help her find foods she can eat and she declined. She may reconsider tomorrow based on how long she will be admitted. She reports pelvic floor pain today. She denies any other physical concerns or side effects. She is alert and oriented x3, she provided a slightly incorrect date, 02/19/2025 instead of 02/20/2025. Objective PHYSICAL EXAM: BP 137/78 Pulse 86 Temp 36.8 ?C (98.2 ?F) (Oral) Resp 18 Ht 160 cm (5' 3) Wt 59 kg (130 lb) LMP 09/13/2013 SpO2 99% BMI 23.03 kg/m? Slept: 8 hours Compliant with medications: Compliant with ordered medications in the past 24 hours PRN medications in the last 24 hours: Bentyl and Ibuprofen. Hydroxyzine 25 mg on 02/20/2025 @ 1309 [employer] covering for the weekend. Chart and nursing database reviewed. Per nursing staff: Today, Gisela was friendly and polite. She reported stomach cramping and took Bentyl PRN. She reported having a headache and feeling anxious. Overnight, Gisela was compliant. She reported having a headache. She reported some depression and anxiety. No behavioral issues in the past 24 hours. MENTAL STATUS EXAMINATION: Appearance: Casually dressed and Appears stated age Behavior: Engaged readily. Psychomotor: No psychomotor agitation. Cognition Level of Consciousness: Awake and alert. No fluctuation in wakefulness. Orientation: Person, Place, and Situation Memory: Intact Attention/Concentration: Good Fund of Knowledge: Able to demonstrate an awareness of current events. Mood: Anxious and Depressed Affect: Depressed, Anxious, and Mood-congruent and reactive within a normal range. Speech/Language: Appropriate tone, prosody, renato, phonetics, and syntax Thought Form: Coherent and Goal-directed. No loosening of associations. Thought Content: Coherent Delusions: None noted Hallucinations: None Perceptual Disturbances: Did not appear to respond to auditory stimuli. 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 No suicidal ideations and passive wishes to in the past 24 hours. Homicidal Ideations: No homicidal ideation, intent or plan. Insight: Recognized the presence of illness. Judgment: Fair SAFE-T Protocol with C-SSRS - Recent Step 1: Identify Risk Factors C-SSRS Suicidal Ideation Severity Month Wish to be Have you wished you were or wished you could go to sleep and not wake up? Yes Current suicidal thoughts Have you actually had any thoughts of killing yourself? Yes Suicidal thoughts w/ Method (w/no specific Plan or Intent or act) Have you been thinking about how you might do this? Yes Suicidal Intent without Specific Plan Have you had these thoughts and had some intention of acting on them? Yes Intent with Plan Have you started to work out or worked out the details of how to kill yourself? Do you intend to carry out this plan? Yes C-SSRS Suicidal Behavior: Have you ever done anything, started to do anything, or prepared to do anything to end your life?? Examples: Collected pills, obtained a gun, gave away valuables, wrote a will or suicide note, took out pills but didn?t swallow any, held a gun but changed your mind or it was grabbed from your hand, went to the roof but didn?t jump; or actually took pills, tried to shoot yourself, cut yourself, tried to hang yourself, etc. If ?YES? Was it within the past 3 months? Lifetime Yes Past 3 Months Yes Current and Past Psychiatric Dx: Mood Disorder and PT (more content not included)... [facility] 02-18-2025 Note SARS-COV-2 (AGENT OF COVID-19) RNA: Not detected INFLUENZA A RNA: Not detected INFLUENZA B RNA: Not detected RESPIRATORY SYNCYTIAL VIRUS (RSV) RNA: Not detected [facility] Comment on above: Performed By: #### [id number] ####[facility] LABORATORYCLIA [id number] [address] STATES OF [facility] 02-16-2025 Instructions Estrellita Ferreira MD - 02/16/2025 10:30 AM EDT Images from the original note were not included. Nice to see you Gisela We discussed your bowel symptoms and management: - You will start a new medication, Emteza, to help regulate your bowel movements. Take this medication twice daily with meals. This prescription has been sent to your preferred pharmacy ([facility] in [place]). - If you notice a reduction in bleeding, you can stop using the suppositories. Use them only as needed, such as during periods of bleeding, for about a week at a time. Be aware that suppositories themselves can sometimes cause minor trauma. - To help with bloating, continue using Gas-X as needed. This is a safe medication for you to use. - If you still have Metamucil powder, use a quarter of the recommended dose and gradually increase as tolerated to avoid gas and bloating. Alternatively, you can try Metamucil capsules, starting with one capsule at a time and spreading the doses throughout the day. - I will provide you with a list of foods containing soluble fiber. Please note that some of these foods may be fermentable and could cause bloating, so introduce them cautiously. - Continue working with your pelvic floor therapy team to address coordination issues during bowel movements. We discussed your nutrition and hydration: - Your diet has been affected by depression. I recommend incorporating oral rehydration solutions to improve hydration. I will send you recipes for homemade solutions, which are cost-effective and easy to prepare. You can also purchase prepackaged options if preferred. - Consider adding unflavored protein powder to your liquids to increase your calorie intake. - Monitor your weight and ensure you are drinking adequate fluids daily. We discussed your depression and mental health: - You are working with your dance teacher, counselor, and mental health nurse practitioner, Evelia Kunz, at [facility]. Please continue to follow up with them for support. We discussed follow-up care: - I recommend scheduling an in-person visit in May or June for a physical exam and to recheck your micronutrient levels, including zinc and magnesium. - My office will send a note to your primary care provider, Dr. Krause, to keep them updated on your care. If you have any new or worsening symptoms, please contact our office. I look forward to seeing you in the summertime. Estrellita Ferreira MD, MSc, [facility], [facility] Staff [employer], Department of Gastroenterology, Hepatology & Nutrition [facility] Disease [facility] [place] [facility] Oral Rehydration Solutions Oral rehydration solutions are customized to allow for better water absorption in the gut through a balance of fluid, sugar and salt. They tend to absorb better than water alone. Commercial brands of oral rehydration solutions: Drip Drop Pedialyte Gastrolyte VISCOUS SOLUBLE FIBER Viscous soluble fibers are water-holding fibers which bulk up and soften stool. Start fiber GRADUALLY (add no more than 1 serving/day each week). Aim to eat at least 7-10 grams viscous soluble fiber per day. If you are not drinking at least 1.5 L fluid daily, match the increase in viscous soluble fiber with an additional 1-2 large glasses of water daily. This will help to avoid hard stool and excess gas. The absorption of some prescription drugs can be significantly affected by the presence of food and fiber in the upper gastrointestinal tract, particularly viscous soluble fiber. It is recommended to take fiber supplements at least 2 hr before or 2 hr after oral prescription medications. Good sources of viscous soluble fiber include: documented in this encounter [facility] 02-16-2025 History of Presen t illness Narrative [facility] SMALL BOWEL DISEASES AND NUTRITION FOLLOW UP VISIT: Date of direct communication: 02/16/25 This is a virtual visit. It required patient-provider interaction for the medical decision making as documented below. The patient verbally consented to a Virtual Visit with telephone back up as necessary. I have communicated my name and active licensure. The patient's identity and physical location were verified at the time of this visit. Either the patient or their legal utility sales representative has been informed of the risks and benefits of and alternatives to treatment through a remote evaluation and consents to proceed with the evaluation remotely. Start Time 1000; End Time 1028 The patient consented to the use of [employer] software for draft documentation of the visit consistent with [facility] s Notice of Privacy Practices. Assessment IMPRESSION: Gisela Turner is a 54 year old female with history of GERD, MDD, Bipolar, prior ED, with abdominal bloating, constipation and pelvic floor dysfunction with recent proctitis seen on Colonoscopy 09/09 requiring intermittent courses of 5ASA suppositories. Seen in follow up. Gisela Turner had the opportunity to have all their concerns and questions addressed DIAGNOSTIC ISSUES AND PLAN: 1. 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 Inconsistent bowel movements, with occasional sensation of incomplete evacuation. Currently using suppositories nightly since January, which have been beneficial. - Continue use of suppositories as needed; advised to reduce frequency if bleeding decreases to prevent potential trauma. - Scheduled follow-up in for physical examination and micronutrient evaluation. 2. Bloating (R14.0) Visible abdominal distention noted. Previous use of Metamucil and MiraLAX resulted in bloating. Currently using Gas-X and dicyclomine with some relief. - Continue Gas-X as needed. - Advised to resume Metamucil, starting with a quarter dose of the powder or one capsule, gradually increasing to avoid gas. - Provided recipes for oral rehydration solutions to enhance hydration. 3. Pelvic floor dysfunction (M62.89) Severe pelvic floor pain, primarily anterior, with no exacerbation during defecation. Multiple Botox injections administered by electroencephalograph technician Dr. Rosie Jones at [facility] with limited relief. Previous use of amitriptyline discontinued. - Monitor response to bowel regulation and fiber supplementation. - Continue pelvic floor therapy. 4. Depression, unspecified depression type (F32.A) Worsening depression impacting dietary intake. Under care of mental health nurse practitioner Evelia Kunz at [facility]. Recent changes in counseling support noted. - Coordinating with primary care physician Dr. Krause and dietitian for comprehensive management. - Encouraged use of oral rehydration solutions and addition of unflavored protein powder to fluids to increase caloric intake. 5. Constipation due to outlet dysfunction (K59.02) Inconsistent bowel movements with occasional hard stools. Previous use of Linzess resulted in diarrhea; discontinued. MiraLAX and milk of magnesia poorly tolerated. - Initiated Amitiza (lubiprostone) 24 mcg BID with meals; prescription sent to [facility] in [place]. - Advised gradual reintroduction of Metamucil to improve stool consistency. - Scheduled follow-up in to assess treatment efficacy and perform physical examination. FOLLOW-UP: 4-5 months in person Estrellita Ferreira MD, MSc, [facility], [facility] Staff, Department of Gastroenterology, Hepatology & Nutrition [facility] Disease [facility] [place] [facility] 02/16/25 Some aspects of note was written by ODILON kim PRIMARY PROBLEM: denise Last Seen in Clinic on 10/21/24, Where the plan was to conintue with FODMAP and soluble fiber, intermittent suppositories INTERVAL HISTORY: Patient is a 54-year-old female presenting for follow-up with ongoing issues of hematochezia, constipation, and pelvic floor pain. Patient reports intermittent hematochezia, noting blood clots mixed within the stool approximately 25% of the time. Stools are typically brown, and she denies melena. She has been using suppositories nightly since January, which she believes have helped reduce bleeding, although she still occasionally notices blood. She denies any pain associated with the insertion of the suppositories. Patient describes her bowel movements as inconsistent, with some days having two bowel movements and other days having none. She reports a sensation of incomplete emptying during some bowel movements. Her last bowel movement was last night. She has tried various treatments for constipation, including Colace and Metamucil powder, but reports that these sometimes cause bloating. She has also tried Miralax and milk of magnesia in the past, both of which caused significant discomfort, including bloating and emesis, respectively. She previously tried Linzess but discontinued it due to diarrhea. She occasionally uses Gas-X for bloating and dicyclomine for abdominal discomfort, both of which she finds helpful. She has Zofran on hand but uses it only as needed. Patient also reports severe pelvic floor pain, primarily in the anterior pelvic region, which she describes as burning and intense. She has been receiving Botox injections from a electroencephalograph technician at the [facility] for this pain but continues to experience significant discomfort. The pain does not worsen with defecation. She has discontinued Elavil, which was previously prescribed for pain management. Patient reports visible abdominal distension associated with bloating. She is able to maintain adequate hydration, drinking approximately 36 ounces of water and some iced tea daily. She denies any changes in urine output and reports urinating at least once daily. She denies any swelling in her legs. Patient also reports experiencing significant depression, which has affected her appetite and dietary habits. She is currently under the care of a mental health nurse practitioner at [facility] for medication management and is working with a dance teacher who is coordinating care with her counselor and primary care physician, Dr. Krause. She recently went on vacation to [facility], and denies any illness during the trip. CURRENT NUTRITION SUPPORT: Worsening intake due to low mood working with local dietitian Weight history: Last 5 Encounter Wt Readings: Date: Wt: 01/25/2025 62.6 kg (138 lb 0.1 oz) 12/16/2024 61.6 kg (135 lb 12.9 oz) 10/19/2024 58.5 kg (129 lb) 09/29/2024 60.3 kg (133 lb) 08/17/2024 59.3 kg (130 lb 11.7 oz) CURRENT MEDICATIONS: Current Outpatient Medications Medication Sig Dispense Refill gabapentin (NEURONTIN) 100 mg capsule Take 3 capsules by mouth daily at bedtime. 90 capsule 3 estradiol (ESTRACE) 0.01 % (0.1 mg/gram) vaginal cream APPLY A PEA SIZED AMOUNT TO LOWER VAGINA AT BEDTIME TWICE WEEKLY 43 g 0 gabapentin in lipoderm topical cream 4% (CPD) Apply to affected area. External use only - not for vaginal/vulvar use (Patient taking differently: Apply to affected area as needed. External use only - not for vaginal/vulvar use) cyclobenzaprine (FLEXERIL) 5 mg tablet 1 tablet daily at bedtime. Use vaginally at night (Patient not taking: Reported on 01/25/2025) 30 tablet 1 oxybutynin XL (DITROPAN XL) 5 mg 24 hr tablet Take 1 tablet by mouth once daily. 90 tablet 3 mesalamine (CANASA) 1,000 mg suppository 1 Suppository by RECTAL route daily at bedtime. 30 Each 2 estradiol (ESTRACE) 2 mg tablet Take 1 tablet by mouth once daily. (Patient taking differently: Take 1 mg by mouth once daily.) 30 tablet 11 atorvastatin (LIPITOR) 20 mg tablet aspirin, enteric coated (ASPIRIN, ENTERIC COATED) 81 mg EC tablet Take by mouth. traZODone (DESYREL) 50 mg tablet traZODone Trazodone Active 50 MG AT BEDTIME January 03, 2020 10:35pm 01-03-2020 [facility] ([id number]) QUEtiapine (SEROQUEL) 50 mg tablet Take 1 tablet by mouth daily at bedtime. 30 tablet 0 desvenlafaxine ER (PRISTIQ) 50 mg 24 hr tablet Take 1 tablet by mouth once daily. (Patient taking differently: Take 100 mg by mouth once daily.) lansoprazole (PREVACID) 30 mg capsule Take 30 mg by mouth once daily. LAMOTRIGINE (LAMICTAL ORAL) Take by mouth once daily. 200 mg daily buPROPion SR (WELLBUTRIN SR) 100 mg 12 hr tablet Take 1 tablet by mouth once daily. 0 Current Facility-Administered Medications Medication Dose Route Frequency Provider Last Rate Last Admin onabotulinum toxin type A 100 Units injection (BOTOX) 100 Units INTRAMUSCULAR q 3 MONTHS Rosie Sterling MD ALLERGIES: ALLERGIES Allergen Reactions Amoxicillin Hives Bactrim [Sulfametho* Rash Diphenhydramine Other: See Comments Gluten Flour Intolerance Pt reports migraines from flour Moxifloxacin Hives Septra [Sulfamethox* Rash Trileptal [Oxcarbaz* Zomig [Zolmitriptan] Zyprexa [Olanzapine] PAST MEDICAL/SURGICAL HISTORY, SOCIAL HISTORY, AND FAMILY HISTORY: Reviewed and is unchanged aside from the changes documented in HPI. REVIEW OF SYSTEMS: ROS completed and negative outside of the systems documented in the HPI. Constitutional: (+) decreased appetite Gastrointestinal: (+) blood in stool, (+) bloating, (+) irregular bowel movements, (+) incomplete bowel emptying Genitourinary: (+) pelvic pain, (+) burning Psychiatric: (+) depression INVESTIGATIONS: All available pertinent interval investigations were reviewed and were notable for: ENDOSCOPY/PATHOLOGY: 10/19/24 Flex Sig Impression: - The sigmoid colon and descending colon are normal. Biopsied. - Proctitis. Inflammation was found from the anus to the rectum. This was graded as Saxena Score 1 (mild disease), improved compared to previous examinations. Biopsied. Pathology A. Colon, sigmoid, 20 cm, biopsy: - Colonic mucosa with mild reactive/hyperplastic epithelial changes - No evidence of active or microscopic colitis. B. Rectum, biopsy: - Colonic mucosa with patchy mucosal hemorrhage, mild lamina propria edema, and patchy denuded surface epithelium. - No evidence of active or microscopic colitis. Colonoscopy 08/17/24 Impression: - Non-bleeding internal hemorrhoids. - Erythematous, friable (with contact bleeding) and inflamed mucosa in the rectum. Biopsied. - Biopsies were taken with a cold forceps from the entire colon for evaluation of microscopic colitis. A. Terminal ileum, biopsy: - Small intestinal mucosa with no significant pathologic change. B. Colon, random, biopsy: - Colonic mucosa with no significant pathologic change. C. Rectum, biopsy: - Active proctitis with mild architectural distortion, see comment. 03/10/24- VCE Indication: Mesenteric Lymphadenopathy Capsule reached the cecum but did not leave the colon for duration of this examination Prep quality: Adequate Limited views of the esophagus and stomach were normal Small bowel: normal, no masses, ulcerations or AVMs seen Colon obscured by stool Summary: Normal video endoscopy of the small bowel EGD/[place] 03/11/24 Impression: - Normal esophagus. - Z-line regular, 35 cm from the incisors. - Normal stomach. Biopsied. - Normal duodenal bulb, first portion of the duodenum, second portion of the duodenum, third portion of the duodenum and fourth portion of the duodenum. Biopsied. - Normal examined jejunum. Biopsied. Impression: - Perianal skin tags found on perianal exam. - The examined portion of the ileum was normal. - One 4 mm polyp in the sigmoid colon, removed with a cold snare. Resected and retrieved. - The examination was otherwise normal on direct and retroflexion views. A. Random jejunum, biopsy: - Small bowel mucosa with no significant diagnostic alteration. - No evidence of celiac disease or enteritis. B. Duodenum, biopsy: - Duodenal mucosa with no significant diagnostic alteration. - No evidence of celiac disease or duodenitis. C. Gastric antrum, biopsy: - Antral mucosa with no significant diagnostic alteration. - No morphologic evidence of Helicobacter pylori organisms. D. Gastric body, biopsy: - Oxyntic mucosa with features suggestive of proton pump inhibitor effect. - No morphologic evidence of Helicobacter pylori organisms. E. Sigmoid colon polyp, biopsy: - Hyperplastic polyp. IMAGING: Stiz Markers 03/10 IMPRESSION: Progression of Sitz markers, but with markers remaining in the distal descending and rectosigmoid colon. LAB WORK: None recent Physical Exam: (Limited due to Virtual Visit) LMP 09/13/2013 General: Appears well Neurologic: Awake and alert. Total time of this patient encounter today was >30 mins, including: preparation for visit, direct time with the patient, examination, orders, review of records, and documentation. documented in this encounter [facility] 02-16-2025 Note HNO ID: [id number] Author: ESTRELLITA FERREIRA MD Service: ? Author Type: Physician Type: Progress Notes Filed: 02/16/2025 10:31 Note Text: [facility] SMALL BOWEL DISEASES AND NUTRITION FOLLOW UP VISIT: Date of direct communication: 02/16/25 This is a virtual visit. It required patient-provider interaction for the medical decision making as documented below. The patient verbally consented to a Virtual Visit with telephone back up as necessary. I have communicated my name and active licensure. The patient's identity and physical location were verified at the time of this visit. Either the patient or their legal utility sales representative has been informed of the risks and benefits of and alternatives to treatment through a remote evaluation and consents to proceed with the evaluation remotely. Start Time 1000; End Time 1028 The patient consented to the use of ambient AI software for draft documentation of the visit consistent with [facility]?s Notice of Privacy Practices. Assessment IMPRESSION: Gisela Turner is a 54 year old female with history of GERD, MDD, Bipolar, prior ED, with abdominal bloating, constipation and pelvic floor dysfunction with recent proctitis seen on Colonoscopy 09/09 requiring intermittent courses of 5ASA suppositories. Seen in follow up. Gisela Turner had the opportunity to have all their concerns and questions addressed DIAGNOSTIC ISSUES AND PLAN: 1. 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 Inconsistent bowel movements, with occasional sensation of incomplete evacuation. Currently using suppositories nightly since January, which have been beneficial. - Continue use of suppositories as needed; advised to reduce frequency if bleeding decreases to prevent potential trauma. - Scheduled follow-up in for physical examination and micronutrient evaluation. 2. Bloating (R14.0) Visible abdominal distention noted. Previous use of Metamucil and MiraLAX resulted in bloating. Currently using Gas-X and dicyclomine with some relief. - Continue Gas-X as needed. - Advised to resume Metamucil, starting with a quarter dose of the powder or one capsule, gradually increasing to avoid gas. - Provided recipes for oral rehydration solutions to enhance hydration. 3. Pelvic floor dysfunction (M62.89) Severe pelvic floor pain, primarily anterior, with no exacerbation during defecation. Multiple Botox injections administered by electroencephalograph technician Dr. Rosie Jones at [facility] with limited relief. Previous use of amitriptyline discontinued. - Monitor response to bowel regulation and fiber supplementation. - Continue pelvic floor therapy. 4. Depression, unspecified depression type (F32.A) Worsening depression impacting dietary intake. Under care of mental health nurse practitioner Evelia Kunz at [facility]. Recent changes in counseling support noted. - Coordinating with primary care physician Dr. Krause and dietitian for comprehensive management. - Encouraged use of oral rehydration solutions and addition of unflavored protein powder to fluids to increase caloric intake. 5. Constipation due to outlet dysfunction (K59.02) Inconsistent bowel movements with occasional hard stools. Previous use of Linzess resulted in diarrhea; discontinued. MiraLAX and milk of magnesia poorly tolerated. - Initiated Amitiza (lubiprostone) 24 mcg BID with meals; prescription sent to [facility] in [place]. - Advised gradual reintroduction of Metamucil to improve stool consistency. - Scheduled follow-up in to assess treatment efficacy and perform physical examination. FOLLOW-UP: 4-5 months in person Estrellita Ferreira MD, MSc, [facility], [facility] Staff, Department of Gastroenterology, Hepatology AND Nutrition Digestive Disease AND Surgical [place] [facility] 02/16/25 Some aspects of note was written by ODILON kim PRIMARY PROBLEM: protcitis Last Seen in Clinic on 10/21/24, Where the plan was to conintue with FODMAP and soluble fiber, intermittent suppositories INTERVAL HISTORY: Patient is a 54-year-old female presenting for follow-up with ongoing issues of hematochezia, constipation, and pelvic floor pain. Patient reports intermittent hematochezia, noting blood clots mixed within the stool approximately 25% of the time. Stools are typically brown, and she denies melena. She has been using suppositories nightly since January, which she believes have helped reduce bleeding, although she still occasionally notices blood. She denies any pain associated with the insertion of the suppositories. Patient describes her bowel movements as inconsistent, with some days having two bowel movements and other days having none. She reports a sensation of incomp (more content not included)... [facility] 02-07-2025 History of Presen t illness Narrative Program_ID:[id number] Access Code: [email or web address] URL: [email or web address]/ Date: 02-07-2025 Prepared By: Alka Sheppard Program Notes Exercises - Supine Diaphragmatic Breathing with Pelvic Floor Lengthening - 2 x daily - 7 x weekly - sets - 10 reps - Diaphragmatic Breathing in Child's Pose with Pelvic Floor Relaxation - 1-2 x daily - 7 x weekly - 2 sets - reps - Supine Lower Trunk Rotation - 1-2 x daily - 7 x weekly - sets - 10 reps - Hip Flexor Stretch on Step - 1-2 x daily - 7 x weekly - 3 sets - reps - Static Prone on Elbows - 1-2 x daily - 7 x weekly - 3 sets - reps - Cat Cow to Child's Pose - 1 x daily - 7 x weekly - 3 sets - 10 reps - Seated Hamstring Stretch - 2 x daily - 7 x weekly - 3 sets - reps - Right Standing Lateral Shift Correction at Wall - Hold - 2 x daily - 7 x weekly - sets - 10 reps - Supine Psoas Self-Massage - 1 x daily - 7 x weekly - sets - reps Patient Education - Get To Know Your Pelvic Floor- Female - cc Pelvic Floor - Constipation Massage - cc Pelvic Floor - Bladder Health & Emptying Techniques - cc Pelvic Floor - Bowel Movement Education - cc Pelvic Floor - Winston Stool Chart - cc Pelvic Floor - Bowel Diary - cc Pelvic Floor Female Internal Pelvic Floor Self Massage - cc Pelvic Floor - Lubricants Episode Visit Count: 13 Therapist That Will Accept/Oversee The Plan Of Care: Alka Sheppard PT, DPT Start of Care Date: 03/31/24 Onset Date: 03/04/24 Plan of Care Certification Date: 01/24/25 Next Certification Due Date: 04/24/25 Patient Identified by Name and Date of : Yes REHABILITATION AND SPORTS THERAPY PHYSICAL THERAPY TREATMENT NOTE ASSESSMENT: Gisela Turner tolerated the session with decreased symptoms. She demonstrated improvements in pain reduction after manual interventions. The patient will continue to benefit from ongoing skilled physical therapy to progress toward set goals. PLAN FOR NEXT VISIT: external and internal manual for pain reduction SUBJECTIVE: Pt reports since intercourse ~4 days ago, severe burning and irritation. Pain: Pain Pain Level: 8 Pain Location: Vaginal Description: Burning, Sharp Frequency: Continuous Post Treatment Pain Post Treatment Symptoms: reduced OBJECTIVE MEASURES WITH LEVEL OF FUNCTION: Pelvic Floor Pain with penetration: Pain after intercourse (some discomfort during, afterward increased burning) Pelvic Floor Muscle Assessment Consent for pelvic assessment/testing and treatment: Patient was educated regarding pelvic floor physical therapy assessment/treatment which may include pelvic floor and girdle muscle assessment externally or internally (vaginal or rectal approach)., Patient verbalized consent for the above treatment approaches today. Patient understands they have control of the treatment and an opportunity to stop treatment at any time. Contracton Pressure: Moderate squeeze, felt all the way around finger surface Duration of Contraction: >3 seconds Range of Motion: Decreased Relaxation Postcontraction: Partial, Slow Non-relaxing pelvic floor : Present Diaphragmatic Breathing : Fair Pelvic Floor Manual Assessment External Pelvic Region Tenderness/ Hyperactivity - Trunk: Sacrum, sacral border, Lumbar Paraspinals Lower abdominals: Left Sacrum, sacral border: Bilateral Lumbar Paraspinals: Bilateral External Pelvic Region Tenderness/ Hyperactivity - Lower Extremity: Buttock, Glut max Buttock: Bilateral Glut max: Bilateral Pelvic Floor Tenderness/Hyperactivity: Tested Vaginally in Tested Rectally in : Supine/hooklying Superficial transverse perineal: Left (less intense discomfort vs prior session, botox injections ~2weeks ago) Ischiocavernosus: Left (less intense discomfort vs prior session, botox injections ~2weeks ago) Deep transverse perineal: Left (less intense discomfort vs prior session, botox injections ~2weeks ago) TREATMENT: Manual Therapy: 1: internal manual at superficial layer, reassessment and gentle sustained holds for MFR and pain relief 2: lower abdominal STM 3: *iliopsoas TPR in supine 4: prone lying + STM to lumbar paraspinals, glutes, sacral borders, + pain relief Skilled Intervention: Manual skills to improve joint mobility, ROM, and decrease pain. Utilized anatomy knowledge of the therapist, and assessment of patient's response to intervention. Neuromuscular Re-Education: 1: review of pain management strategies including application of heat to lumbar region and/or over lower abdomen PRN 10-15min 2: encouraged continuation of stretching, breathing, TPR techniques, and internal manual as tolerated for pain reduction Skilled Intervention: Education and demonstration for posture and positioning for tone management. Correct performance of home program was facilitated with verbal, visual, and tactile cueing. Patient education as noted. Billing Manual TherapyTreatment Minutes: 30 Neuromuscular Re-Education Treatment Minutes: 10 Skilled Treatment Time Minutes (timed and untimed codes): 40 Total Session Time (minutes): 46 Session Start Time : 1142 Session Stop Time : 1228 Alka Sheppard PT documented in this encounter [facility] 02-07-2025 Note HNO ID: [id number] Author: ALKA SHEPPARD PT Service: ? Author Type: Physical Therapist Type: Progress Notes Filed: 02/07/2025 13:03 Note Text: Episode Visit Count: 13 Therapist That Will Accept/Oversee The Plan Of Care: Akla Silver, PT, DPT Start of Care Date: 03/31/24 Onset Date: 03/04/24 Plan of Care Certification Date: 01/24/25 Next Certification Due Date: 04/24/25 Patient Identified by Name and Date of : Yes REHABILITATION AND SPORTS THERAPY PHYSICAL THERAPY TREATMENT NOTE ASSESSMENT: Gisela Turner tolerated the session with decreased symptoms. She demonstrated improvements in pain reduction after manual interventions. The patient will continue to benefit from ongoing skilled physical therapy to progress toward set goals. PLAN FOR NEXT VISIT: external and internal manual for pain reduction SUBJECTIVE: Pt reports since intercourse ~4 days ago, severe burning and irritation. Pain: Pain Pain Level: 8 Pain Location: Vaginal Description: Burning, Sharp Frequency: Continuous Post Treatment Pain Post Treatment Symptoms: reduced OBJECTIVE MEASURES WITH LEVEL OF FUNCTION: Pelvic Floor Pain with penetration: Pain after intercourse (some discomfort during, afterward increased burning) Pelvic Floor Muscle Assessment Consent for pelvic assessment/testing and treatment: Patient was educated regarding pelvic floor physical therapy assessment/treatment which may include pelvic floor and girdle muscle assessment externally or internally (vaginal or rectal approach)., Patient verbalized consent for the above treatment approaches today. Patient understands they have control of the treatment and an opportunity to stop treatment at any time. Contracton Pressure: Moderate squeeze, felt all the way around finger surface Duration of Contraction: >3 seconds Range of Motion: Decreased Relaxation Postcontraction: Partial, Slow Non-relaxing pelvic floor : Present Diaphragmatic Breathing : Fair Pelvic Floor Manual Assessment External Pelvic Region Tenderness/ Hyperactivity - Trunk: Sacrum, sacral border, Lumbar Paraspinals Lower abdominals: Left Sacrum, sacral border: Bilateral Lumbar Paraspinals: Bilateral External Pelvic Region Tenderness/ Hyperactivity - Lower Extremity: Buttock, Glut max Buttock: Bilateral Glut max: Bilateral Pelvic Floor Tenderness/Hyperactivity: Tested Vaginally in Tested Rectally in : Supine/hooklying Superficial transverse perineal: Left (less intense discomfort vs prior session, botox injections ~2weeks ago) Ischiocavernosus: Left (less intense discomfort vs prior session, botox injections ~2weeks ago) Deep transverse perineal: Left (less intense discomfort vs prior session, botox injections ~2weeks ago) TREATMENT: Manual Therapy: 1: internal manual at superficial layer, reassessment and gentle sustained holds for MFR and pain relief 2: lower abdominal STM 3: *iliopsoas TPR in supine 4: prone lying + STM to lumbar paraspinals, glutes, sacral borders, + pain relief Skilled Intervention: Manual skills to improve joint mobility, ROM, and decrease pain. Utilized anatomy knowledge of the therapist, and assessment of patient's response to intervention. Neuromuscular Re-Education: 1: review of pain management strategies including application of heat to lumbar region and/or over lower abdomen PRN 10-15min 2: encouraged continuation of stretching, breathing, TPR techniques, and internal manual as tolerated for pain reduction Skilled Intervention: Education and demonstration for posture and positioning for tone management. Correct performance of home program was facilitated with verbal, visual, and tactile cueing. Patient education as noted. Billing Manual TherapyTreatment Minutes: 30 Neuromuscular Re-Education Treatment Minutes: 10 Skilled Treatment Time Minutes (timed and untimed codes): 40 Total Session Time (minutes): 46 Session Start Time : 1142 Session Stop Time : 1228 Alka Sheppard PT [facility] 01-26-2025 Telephone encounter Note See other message Closing [facility] 01-26-2025 Miscellaneous Notes See other MC message Closing documented in this encounter [facility] 01-26-2025 Telephone encounter Note Done Candy Veras [facility] Work Phone: 01-26-2025 Miscellaneous Notes Done Candy Veras Please put her on my schedule for virtual on 03/10/25 at 4 pm, patient aware documented in this encounter [facility] 01-25-2025 Telephone encounter Note Please put her on my schedule for virtual on 03/10/25 at 4 pm, patient aware [facility] 01-25-2025 History of Presen t illness Narrative Images from the original note were not included. [facility] [place] SECTION FOR CHRONIC PELVIC PAIN OUTPATIENT VISIT DATE 01/25/2025 OUTPATIENT VISIT TYPE FOLLOW UP CHIEF COMPLAINT Gisela Turner is a 54 year old female who presents for Chronic pelvic pain follow up. HISTORY OF PRESENT ILLNESS Gisela is a 54 year old female who is in today for chronic pelvic pain follow up. Since last visit: Pt unable to use vaginal flexeril due to c/o burning. Pt has been using the estrace cream. Pt reports pain is worse with wiping after urination. Intensity of pain: mild Average Pain level: 2 on a scale of 0-10, Emergency room visits for pain since last visit: no Level of physical activity and mobility: without much pain, does fine Quality of sleep: some nights good, some nights bad Mood: pretty good Side effects of medications for pain: no SUMMARY FROM LAST VISIT Date: 12/16/2024 Encounter Diagnosis ICD-10-CM 1. High-tone pelvic floor dysfunction M62.89 onabotulinum toxin type A 100 Units injection (BOTOX) cyclobenzaprine (FLEXERIL) 5 mg tablet CONSULT TO PHYSICAL THERAPY 2. 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 Dyspareunia in female N94.10 4. S/P hysterectomy Z90.710 Gisela Turner is a 54 year old female seen today for a pelvic pain evaluation. Gisela mentions that her pain started about 1.5 years ago. She is using a Gabapentin cream and estrogen cream for vulvodynia. Pt experiences burning with urination and pain with intercourse. Pt also does PFPT for chronic constipation, which has been helping her a lot. After her hysterectomy in 2022, Gisela's pain levels decreased. Physical exam reproduced vulvodynia and high tone pelvic floor pain. Consider vaginal Botox - see if insurance approves. Continue PFPT, and target pelvic floor. Reordered PFPT. Start Flexeril once daily at night vaginally, for 3-4 days, then as needed. Continue estrogen cream. Consider stopping Gabapentin cream, as I believe pain is coming from pelvic floor. Follow up in 3 months in person. TREATMENT HISTORY No specialty comments available. PHYSICAL EXAM BP 135/80 (BP Site: Right Arm, BP Position: Sitting) Ht 160 cm (5' 3) Wt 62.6 kg (138 lb 0.1 oz) LMP 09/13/2013 BMI 24.45 kg/m Physical Exam 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 SENSITIVE EXAM: The sensitive examination was discussed with the Patient or Patient's Authorized Enterprise Resource Planner. As applicable, any other physician, advance practice provider, medical student, or other health professional student that will be observing or involved in the sensitive examination for educational or training purposes was discussed with the Patient or Authorized Enterprise Resource Planner. The Patient or Authorized Enterprise Resource Planner has agreed to proceed with the sensitive examination. (Sensitive examination includes inspection and/or palpation of the breasts, pelvis, prostate and anorectal regions). General: The patient is a well-appearing female in no acute distress. Examination Abdominal tenderness: Abdominal myofacial trigger points: neg Vaginal Vestibular tenderness: very tender on the L vestibule, well estrogenized Rectal tenderness: neg Bladder base tenderness: neg Pelvic Floor Musculature RIGHT SIDED Pubococcygeus: 1 Iliococcygeus: 2 Coccygeus: 1 Obturator: 1 LEFT SIDED Pubococcygeus: 3 Iliococcygeus: 3 Coccygeus: 3 Obturator: 3 (Pain Scale 1 to 3, 3= extreme) She gets extreme pain w L pelvic floor & vestibule examined and starts to clench & shake RV exam - deferred LABS/IMAGING: IMAGING: TVUS dated 07/27/2021: IMPRESSION: No acute abnormality. Left ovary was not visualized. ASSESSMENT/PLAN Encounter Diagnosis ICD-10-CM 1. High-tone pelvic floor dysfunction M62.89 onabotulinum toxin type A 100 Units injection (BOTOX) BUPivacaine HCl 50 mg injection (SENSORCAINE) TRIGGER POINT INJECTION MULTI 1-2 MUSCLE GR L>> R extreme Pelvic floor pain Did try TPI w vaginal botox 100 units today Fu 6 wks kanu Consider referral to maría spear Follow up in 6 wks virtually Patient verbalized understanding of the plan of care and all questions were answered to her stated satisfaction. Written and verbal health teaching given to patient, patient verbalizes understanding and agrees with treatment plan. Medical Decision Making: Problems: Moderate: 1+ chronic illnesses with change Data: Unique test result(s) reviewed: 1 Risk: Moderate: Moderate risk from testing/treatment Medical Decision Making Level: 4 - Moderate I personally interviewed, confirmed and edited the above information if obtained by others. Rosie Sterling MD ORDERS PLACED . Office Visit on 01/25/25 TRIGGER POINT INJECTION MULTI 1-2 MUSCLE GR onabotulinum toxin type A 100 Units injection (BOTOX) BUPivacaine HCl 50 mg injection (SENSORCAINE) CPP Summary: DIAGNOSES: Vulvodynia, high tone PFD, Dyspareunia Surgery 1. Colonoscopy 2012 2. D&C 2012 3. Laparoscopy 2012 4. Cholecystectomy 2005 5. Hysteroscopy 2012 6. Procedures (TPI, botox, pain bocks, etc) 1. 01/2025 B vag TPI & L botox 100 units Nonhormonal Medications 1. Gabapentin 4% cream Hormonal medications (IUD, control pill, GNRH) 1. Estradiol 2. Estrogen cream Services (GI, urology, pain psych,PFPT) 1. PFPT Has therawand <<<Procedure >>> UNIVERSAL PROTOCOL / SAFETY CHECKLIST Procedure to be Performed: vaginal trigger point injections, vaginal botox injections Sign In: A Moment of CARE was completed. Appropriate PPE (Personal Protective Equipment) worn by all providers involved with the procedure. Special equipment not required. Patient/Surrogate Stated/Verified: Patient name, Date of , Relevant allergies, and The intended procedure Time Out: Relevant labs, photos, and/or imaging studies have been reviewed. Intended patient and procedure match the source document(s) (e.g. consent, H&P, associated studies [imaging, pathology]) are not applicable. Consent obtained and matches the intended procedure. Yes. Correct side/site is not applicable. Medications required for this procedure are verified. Fire risk assessed and is not applicable. Implants: are not applicable. Sign Out: Specimens not collected. All instruments, equipment, possible retained foreign bodies are accounted for. Yes. The post-procedure plan of care has been communicated to the patient or surrogate. UNIVERSAL PROTOCOL / SAFETY CHECKLIST Procedure to be performed: vaginal trigger point series Sign in Communication: Completed Time Out: Team Confirms the Correct Patient, Correct Procedure, Correct Site and Site Marking, Correct Position (if applicable), Prep and Dry Time (if applicable). Time: 500pm Affirmation of Time Out: YES Sign Out Discussion: Completed PROCEDURE NOTE: Area prepped with hibiclens and glydo 10 mL 0.25% bupivicaine mixed in a 10 mL syringe. Skin was prepped in a sterile fashion. R vag wall Affected area was injected in 1 muscle Groups with 10 mL of the bupivicaine solution using a 22g needle. Patient tolerated the procedure well. 3 areas 10 mL 0.25% bupivicaine mixed in a 10 mL syringe. Skin was prepped in a sterile fashion. L vag wall Affected area was injected Into 1 muscle groups with 10 mL of the bupivicaine solution using a 22g needle. Patient tolerated the procedure well. 3 areas Patient tolerated procedure well. 0.25% Bupivacaine 10 ML --- lot # [id number] EXP: 10/16/2025 UNIVERSAL PROTOCOL / SAFETY CHECKLIST Procedure to be Performed: vaginal botox injections Sign In: A Moment of CARE was completed. Personnel directly involved with the procedure wore the appropriate PPE (Personal Protective Equipment). No special equipment needed. Patient/Surrogate Stated/Verified: PATIENT VERIFIED(optional for EMERGENT procedures): Patient name, Date of , Relevant allergies, and The intended procedure Time Out Communication: Intended patient and procedure match the source documents. Consent documented and matches the intended procedure. No relevant labs, photos, and/or imaging studies were applicable for review. No correct side/site applicable for marking and visibility. Medications required for procedure verified. No fire risk assessment and interventions applicable. No implant(s) inserted. Sign Out: SIGN OUT (optional for EMERGENT procedures): No specimen collected. No instruments, equipment or retained foreign bodies applicable. Post-procedure follow-up management communicated and Plan of Care Visit completed when applicable. Rosie Sterling MD UNIVERSAL PROTOCOL / SAFETY CHECKLIST Procedure to be performed: vaginal botox trigger point series Sign in Communication: Completed Time Out: Team Confirms the Correct Patient, Correct Procedure, Correct Site and Site Marking, Correct Position (if applicable), Prep and Dry Time (if applicable). Time: 500pm Affirmation of Time Out: YES Sign Out Discussion: Completed PROCEDURE NOTE: Area prepped with hibiclens/glydo 10 ml of 100 units of botox mixed in a 10 mL syringe. Left vaginal wall Affected area was injected Into 1 muscle groups (3 areas) with 10 ml of botox solution solution using a 22g needle. Patient tolerated the procedure well. 3 areas Vaginal wall massaged for 10 seconds and patient performed kegel exercises 10 times following the procedur e Patient tolerated procedure well. OnabotulinumtoxinA: office provided LOT:[id number] EXP: 03/2027 documented in this encounter [facility] 01-25-2025 Note HNO ID: [id number] Author: ROSIE STERLING MD Service: ? Author Type: Physician Type: Progress Notes Filed: 01/26/2025 13:58 Note Text: [facility] [place] SECTION FOR CHRONIC PELVIC PAIN OUTPATIENT VISIT DATE 01/25/2025 OUTPATIENT VISIT TYPE FOLLOW UP CHIEF COMPLAINT Gisela Turner is a 54 year old female who presents for Chronic pelvic pain follow up. HISTORY OF PRESENT ILLNESS Gisela is a 54 year old female who is in today for chronic pelvic pain follow up. Since last visit: Pt unable to use vaginal flexeril due to c/o burning. Pt has been using the estrace cream. Pt reports pain is worse with wiping after urination. Intensity of pain: mild Average Pain level: 2 on a scale of 0-10, Emergency room visits for pain since last visit: no Level of physical activity and mobility: without much pain, does fine Quality of sleep: some nights good, some nights bad Mood: pretty good Side effects of medications for pain: no SUMMARY FROM LAST VISIT Date: 12/16/2024 Encounter Diagnosis ICD-10-CM 1. High-tone pelvic floor dysfunction M62.89 onabotulinum toxin type A 100 Units injection (BOTOX) cyclobenzaprine (FLEXERIL) 5 mg tablet CONSULT TO PHYSICAL THERAPY 2. 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 Dyspareunia in female N94.10 4. S/P hysterectomy Z90.710 Gisela Turner is a 54 year old female seen today for a pelvic pain evaluation. Gisela mentions that her pain started about 1.5 years ago. She is using a Gabapentin cream and estrogen cream for vulvodynia. Pt experiences burning with urination and pain with intercourse. Pt also does PFPT for chronic constipation, which has been helping her a lot. After her hysterectomy in 2022, Gisela's pain levels decreased. Physical exam reproduced vulvodynia and high tone pelvic floor pain. Consider vaginal Botox - see if insurance approves. Continue PFPT, and target pelvic floor. Reordered PFPT. Start Flexeril once daily at night vaginally, for 3-4 days, then as needed. Continue estrogen cream. Consider stopping Gabapentin cream, as I believe pain is coming from pelvic floor. Follow up in 3 months in person. TREATMENT HISTORY No specialty comments available. PHYSICAL EXAM BP 135/80 (BP Site: Right Arm, BP Position: Sitting) Ht 160 cm (5' 3) Wt 62.6 kg (138 lb 0.1 oz) LMP 09/13/2013 BMI 24.45 kg/m? Physical Exam 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 SENSITIVE EXAM: The sensitive examination was discussed with the Patient or Patient's Authorized Enterprise Resource Planner. As applicable, any other physician, advance practice provider, medical student, or other health professional student that will be observing or involved in the sensitive examination for educational or training purposes was discussed with the Patient or Authorized Enterprise Resource Planner. The Patient or Authorized Enterprise Resource Planner has agreed to proceed with the sensitive examination. (Sensitive examination includes inspection and/or palpation of the breasts, pelvis, prostate and anorectal regions). General: The patient is a well-appearing female in no acute distress. Examination Abdominal tenderness: Abdominal myofacial trigger points: neg Vaginal Vestibular tenderness: very tender on the L vestibule, well estrogenized Rectal tenderness: neg Bladder base tenderness: neg Pelvic Floor Musculature RIGHT SIDED Pubococcygeus: 1 Iliococcygeus: 2 Coccygeus: 1 Obturator: 1 LEFT SIDED Pubococcygeus: 3 Iliococcygeus: 3 Coccygeus: 3 Obturator: 3 (Pain Scale 1 to 3, 3= extreme) She gets extreme pain w L pelvic floor AND vestibule examined and starts to clench AND shake exam - deferred LABS/IMAGING: IMAGING: TVUS dated 07/27/2021: IMPRESSION: No acute abnormality. Left ovary was not visualized. ASSESSMENT/PLAN Encounter Diagnosis ICD-10-CM 1. High-tone pelvic floor dysfunction M62.89 onabotulinum toxin type A 100 Units injection (BOTOX) BUPivacaine HCl 50 mg injection (SENSORCAINE) TRIGGER POINT INJECTION MULTI 1-2 MUSCLE GR L>> R extreme Pelvic floor pain Did try TPI w vaginal botox 100 units today Fu 6 wks virtramy Consider referral to maría spear Follow up in 6 wks virtually Patient verbalized understanding of the plan of care and all questions were answered to her stated satisfaction. Written and verbal health teaching given to patient, patient verbalizes understanding and agrees with treatment plan. Medical Decision Making: Problems: Moderate: 1+ chronic illnesses with change Data: Unique test result(s) reviewed: 1 Risk: Moderate: Moderate risk from testing/treatment Medical Decision Making Level: 4 - Moderate I personally interviewed, confirmed and edited the above information if obtained by others. Rosie Sterling MD ORDERS PLACED . Office Visit o (more content not included)... [facility] 01-24-2025 Note HNO ID: [id number] Author: ALKA SHEPPARD PT Service: ? Author Type: Physical Therapist Type: Progress Notes Filed: 01/24/2025 13:15 Note Text: Episode Visit Count: 1 Therapist That Will Accept/Oversee The Plan Of Care: Alka Sheppard PT, DPT Start of Care Date: 03/31/24 Onset Date: 03/04/24 Plan of Care Certification Date: 01/24/25 Next Certification Due Date: 04/24/25 Patient Identified by Name and Date of : Yes REHABILITATION AND SPORTS THERAPY PHYSICAL THERAPY PROGRESS REPORT PLAN OF CARE UPDATE: Assessment: Gisela Turner demonstrates minimal improvement in recreational activities, compromised bladder function, altered sexual function, and compromised bowel function. The patient has progressed toward goals. Patient continues to present with impairments in independence in exercise, posture, range of motion, strength, stress management, symptom management, and tissue tenderness that interfere with altered sexual function, physical activities . Current prognosis is Good due to: current objective clinical presentation, good overall health status, good support system/ coping skills . The patient will benefit from continued skilled therapy services to meet the updated goals for this plan of care as noted below. Goals for Episode of Care: created on 03/31/24 through 06/29/24, updated on 06/07/2024, 06/28/2024, 07/28/2024, 09/29/2024, 11/01/2024, 12/20/2024, 01/24/2025 Patient demonstrates independence and compliance with home exercise program.- ONGOING Patient displays improved range of motion, coordination, and muscle dynamics of pelvic floor as evidenced by the ability to lengthen without paradoxical contraction at least 75% of the time to normalize bladder/bowel function; reduce pelvic pain.-GOAL MET Patient to correctly isolate pelvic floor muscles without compensatory patterns of breath holding and gluteal use to improve bladder/bowel control.-MOSTLY MET Patient reports having >4 bowel movements per week without use of enema, suppositories, and reduced need for supplementation to demonstrate improved bowel function.-GOAL MET Patient reports increased water intake to >50 ounces/day to promote bladder and bowel health.-MOSTLY MET Patient demonstrates ability to perform diaphragmatic breathing and relaxation practice independently to allow for decreased muscle tightness, decreased pain, and improved bladder/bowel function. -PROGRESSING, 95% PROGRESS Patient will report 95% reduction in vaginal pain/burning within 12 weeks to enhance quality of life.- PROGRESSING Patient will report 0-1/10 pain with vaginal penetration within 12 weeks to improve tolerance for internal medical exams and sexual function - PROGRESSING Patient Goals: improve evacuation and defecation Time Frame for Goals and Treatment : 03/20/25 Planned Interventions, Frequency, and Duration: 1x every other week, 10 weeks Total Number of Visits Planned: 5 Patient to be seen for Therapeutic exercise (66358), Neuromuscular re-education (96232), Manual therapy (19775), Therapeutic activities (28180), Self-half-way management (42498), Patient/Family/Caregiver Education, Body Mechanics Training PLAN FOR NEXT VISIT: continue with internal manual, review of wand use as able. SUBJECTIVE: Pt reports use of wand and applicator for estrogen cream.. Functional Limitations: altered sexual function, physical activities Pain: Pain Pain Level: 3 Pain Location: Vaginal Description: Burning Frequency: Intermittent Post Treatment Pain Post Treatment Pain Level: 0 PROMIS Scales 01/22/2025 12/20/2024 10/31/2024 Higher is Better Phys Func - T Score 55 (within normal limits) Phys Func - Percentile 69 Self-Eff Symptom - T Score 46 (Average) 48 (Average) 56 (Average) Self-Eff Symptom - Percentile 34 42 73 01/22/2025 12/20/2024 Lower is Better Pain Interference - T Score 53 (within normal limits) 54 (within normal limits) Pain Interference - Percentile 38 34 T-scores: mean of general population = 50. 5 points is clinically meaningfully difference Percentiles provide an indication of how the patient's score ranks in relation to the general population. Higher percentile rankings indicate better function/quality of life. 50th percentile is the average of the general population and indicates half of respondents had a worse score. OBJECTIVE MEASURES WITH LEVEL OF FUNCTION: Pelvic Floor Pain with penetration: Deep and superficial, Pain after intercourse, Pain with internal medical exam Sexual Health: sexually active Pelvic Floor Muscle Assessment Consent for pelvic assessment/testing and treatment: Patient was educated regarding pelvic floor physical therapy assessment/treatment which may include pelvic floor and girdle muscle assessment externally or internally (vaginal or rectal approach)., Patient verbalized consent for the above treatment approaches today. Patient understands they have cont (more content not included)... [facility] 01-24-2025 History of Presen t illness Narrative Episode Visit Count: 1 Therapist That Will Accept/Oversee The Plan Of Care: Alka Sheppard PT, DPT Start of Care Date: 03/31/24 Onset Date: 03/04/24 Plan of Care Certification Date: 01/24/25 Next Certification Due Date: 04/24/25 Patient Identified by Name and Date of : Yes REHABILITATION AND SPORTS THERAPY PHYSICAL THERAPY PROGRESS REPORT PLAN OF CARE UPDATE: Assessment: Gisela Turner demonstrates minimal improvement in recreational activities, compromised bladder function, altered sexual function, and compromised bowel function. The patient has progressed toward goals. Patient continues to present with impairments in independence in exercise, posture, range of motion, strength, stress management, symptom management, and tissue tenderness that interfere with altered sexual function, physical activities . Current prognosis is Good due to: current objective clinical presentation, good overall health status, good support system/ coping skills . The patient will benefit from continued skilled therapy services to meet the updated goals for this plan of care as noted below. Goals for Episode of Care: created on 03/31/24 through 06/29/24, updated on 06/07/2024, 06/28/2024, 07/28/2024, 09/29/2024, 11/01/2024, 12/20/2024, 01/24/2025 Patient demonstrates independence and compliance with home exercise program.- ONGOING Patient displays improved range of motion, coordination, and muscle dynamics of pelvic floor as evidenced by the ability to lengthen without paradoxical contraction at least 75% of the time to normalize bladder/bowel function; reduce pelvic pain.-GOAL MET Patient to correctly isolate pelvic floor muscles without compensatory patterns of breath holding and gluteal use to improve bladder/bowel control.-MOSTLY MET Patient reports having >4 bowel movements per week without use of enema, suppositories, and reduced need for supplementation to demonstrate improved bowel function.-GOAL MET Patient reports increased water intake to >50 ounces/day to promote bladder and bowel health.-MOSTLY MET Patient demonstrates ability to perform diaphragmatic breathing and relaxation practice independently to allow for decreased muscle tightness, decreased pain, and improved bladder/bowel function. -PROGRESSING, 95% PROGRESS Patient will report 95% reduction in vaginal pain/burning within 12 weeks to enhance quality of life.- PROGRESSING Patient will report 0-1/10 pain with vaginal penetration within 12 weeks to improve tolerance for internal medical exams and sexual function - PROGRESSING Patient Goals: improve evacuation and defecation Time Frame for Goals and Treatment : 03/20/25 Planned Interventions, Frequency, and Duration: 1x every other week, 10 weeks Total Number of Visits Planned: 5 Patient to be seen for Therapeutic exercise (87172), Neuromuscular re-education (10892), Manual therapy (08277), Therapeutic activities (94498), Self-half-way management (57411), Patient/Family/Caregiver Education, Body Mechanics Training PLAN FOR NEXT VISIT: continue with internal manual, review of wand use as able. SUBJECTIVE: Pt reports use of wand and applicator for estrogen cream.. Functional Limitations: altered sexual function, physical activities Pain: Pain Pain Level: 3 Pain Location: Vaginal Description: Burning Frequency: Intermittent Post Treatment Pain Post Treatment Pain Level: 0 PROMIS Scales 01/22/2025 12/20/2024 10/31/2024 Higher is Better Phys Func - T Score 55 (within normal limits) Phys Func - Percentile 69 Self-Eff Symptom - T Score 46 (Average) 48 (Average) 56 (Average) Self-Eff Symptom - Percentile 34 42 73 01/22/2025 12/20/2024 Lower is Better Pain Interference - T Score 53 (within normal limits) 54 (within normal limits) Pain Interference - Percentile 38 34 T-scores: mean of general population = 50. 5 points is clinically meaningfully difference Percentiles provide an indication of how the patient's score ranks in relation to the general population. Higher percentile rankings indicate better function/quality of life. 50th percentile is the average of the general population and indicates half of respondents had a worse score. OBJECTIVE MEASURES WITH LEVEL OF FUNCTION: Pelvic Floor Pain with penetration: Deep and superficial, Pain after intercourse, Pain with internal medical exam Sexual Health: sexually active Pelvic Floor Muscle Assessment Consent for pelvic assessment/testing and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 Func - Score 55 (within normal limits) 55 (within normal limits) 52 (within normal limits) Phys Func - Percentile 69 69 58 Self-Eff Symptom - Score 56 (Average) 54 (Average) 48 (Average) Self-Eff Symptom - Percentile 73 66 42 T-scores: mean of general population = 50. 5 points is clinically meaningfully difference Percentiles provide an indication of how the patient's score ranks in relation to the general population. Higher percentile rankings indicate better function/quality of life. 50th percentile is the average of the general population and indicates half of respondents had a worse score. OBJECTIVE MEASURES WITH LEVEL OF FUNCTION: Pelvic Floor Muscle Assessment Consent for pelvic assessment/testing and treatment: Patient was educated regarding pelvic floor physical therapy assessment/treatment which may include pelvic floor and girdle muscle assessment externally or internally (vaginal or rectal approach)., Patient verbalized consent for the above treatment approaches today. Patient understands they have control of the treatment and an opportunity to stop treatment at any time. Pelvic Floor Muscle Assessment: Muscle Dynamics Contracton Pressure: Moderate squeeze, felt all the way around finger surface Duration of Contraction: >3 seconds Recruitment of pelvic floor muscles: Coordinated Range of Motion: Decreased (L) Ability to Lengthen pelvic floor: Yes Relaxation Postcontraction: Yes, Slow Pelvic Floor Manual Assessment Pelvic Floor Tenderness/Hyperactivity: Tested Rectally in Tested Rectally in : Sidelying Iliococcygeus: Left Puborectalis: Left TREATMENT: Manual Therapy: 1: review of internal rectal L side focus 2: assisted lengthening rectally with breathing, sidelying, 1 digit 3: internal rectal distraction, focus on puborectalis, deep breathing implemented to assist with relaxation 4: internal rectal coordination retraining Skilled Intervention: Manual skills to improve joint mobility, ROM, and decrease pain. Utilized anatomy knowledge of the therapist, and assessment of patient's response to intervention. Neuromuscular Re-Education: 1: progress report Skilled Intervention: Reviewed and educated patient on additions/changes for home program as noted above with an (*). Provided written instruction for home program to facilitate proper performance and compliance. Correct performance of home program was facilitated with verbal, visual, and tactile cueing. Patient education as noted. Billing Manual TherapyTreatment Minutes: 23 Neuromuscular Re-Education Treatment Minutes: 15 Skilled Treatment Time Minutes (timed and untimed codes): 38 Total Session Time (minutes): 39 Session Start Time : 1420 Session Stop Time : 1459 Alka Sheppard PT documented in [facility] History of Present illness Narrative* Estrellita Ferreira MD - 10/21/2024 1:00 PM EST [facility] SMALL BOWEL DISEASES AND NUTRITION FOLLOW UP VISIT: Date of direct communication: 10/21/24 This is a virtual visit. It required patient-provider interaction for the medical decision making as documented below. The patient verbally consented to a Virtual Visit with telephone back up as necessary. I have communicated my name and active licensure. The patient's identity and physical location were verified at the time of this visit. Either the patient or their legal utility sales representative has beeninformed of the risks and benefits of and alternatives to treatment through a remote evaluation andconsents to proceed with the evaluation remotely. Start Time 1258; End Time 1315 Assessment IMPRESSION: Gisela Turner is a 54 year old female with history of GERD, MDD, Bipolar, prior ED, with abdominal bloating, constipation and pelvic floor dysfunction with recent proctitis seen on Colonoscopy 09/09. Seen in follow up. Gisela Turner had the opportunity to have all their concerns and questions addressed DIAGNOSTIC ISSUES AND PLAN: #) Bloating/Nausea/GERD Improving drastically with FODMAP restriction diet, working closely with an RD as history of ED andnow reintroducing some FODMAPs. Uses [place] and Zofran PRN *rarely* She has some clear trigger foods but resolves with time. #) Proctitis pelvic floor dysfunction Clinically improving and repeat flex sig shows mild surface irritation but no colitis or chronic changes, ?reaction to topical hemorrhoid therapy, will hold off rectal 5-ASA now and monitor for symptoms She is also starting PT to help Advise to try soluble fiber #) Mesenteric lymphadenopathy Prior CT shows stability, not increasing, VCE and Push was normal, normal pathology as well, likelydue to prior episode of enteritis. No further investigation at this time FOLLOW-UP: 6 monhts time, may be in person or VV Estrellita Ferreira MD, MSc, [facility], [facility] Staff, Department of Gastroenterology, Hepatology & Nutrition Digestive Disease [facility] [place] [facility] 10/21/24 PRIMARY PROBLEM: rectal bleeding Last Seen in Clinic on 09/06/24, Where the plan was to start mesalamine and repeat flex sig INTERVAL HISTORY: Today patient states overall she is feeling very well No nausea and vomiting No more bloating and distension Bowel movements ar juan jose sy, working with PT for pelvic floor, goes every other day. Some straining but using pelvic wand that has helped with the breating to help evacuation No blood in the stool Urine output, feels hydrated. No SOB no CP No fever or chills CURRENT NUTRITION SUPPORT: She is back to eating three meals a day and snacks She is avoiding some foods that will lead to bloating, including honey, cari corn and corn syrup. Hot chocolate. Water and green tea, ice coffee Limited soda, Weight history: Last 5 Encounter Wt Readings: Date: Wt: Stable 10/19/2024 58.5 kg (129 lb) 09/29/2024 60.3 kg (133 lb) 08/17/2024 59.3 kg (130 lb 11.7 oz) 08/11/2024 59.3 kg (130 lb 12.8 oz) 08/09/2024 58.1 kg (128 lb) CURRENT MEDICATIONS: Current Outpatient Medications Medication Sig Dispense Refill oxybutynin XL (DITROPAN XL) 5 mg 24 hr tablet Take 1 tablet by mouth once daily. mesalamine (CANASA) 1,000 mg suppository 1 Suppository by RECTAL route daily at bedtime. 30 Each 2 estradiol (ESTRACE) 2 mg tablet Take 1 tablet by mouth once daily. 30 tablet 11 estradiol (ESTRACE) 0.01 % (0.1 mg/gram) vaginal cream APPLY A PEA SIZED AMOUNT TO LOWER VAGINA AT BEDTIME TWICE WEEKLY 43 g 0 atorvastatin (LIPITOR) 20 mg tablet aspirin, enteric coated (ASPIRIN, ENTERIC COATED) 81 mg EC tablet Take by mouth. traZODone (DESYREL) 50 mg tablet traZODone Trazodone Active 50 MG AT BEDTIME January 03, 2020 10:35pm 01-03-2020 [facility] ([id number]) QUEtiapine (SEROQUEL) 50 mg tablet Take 1 tablet by mouth daily at bedtime. 30 tablet 0 desvenlafaxine ER (PRISTIQ) 50 mg 24 hr tablet Take 1 tablet by mouth once daily. (Patient taking differently: Take 100 mg by mouth once daily.) lansoprazole (PREVACID) 30 mg capsule Take 30 mg by mouth once daily. LAMOTRIGINE (LAMICTAL ORAL) Take by mouth once daily. 200 mg daily buPROPion SR (WELLBUTRIN SR) 100 mg 12 hr tablet Take 1 tablet by mouth once daily. 0 No current facility-administered medications for this visit. ALLERGIES: ALLERGIES Allergen Reactions Amoxicillin Hives Bactrim [Sulfametho* Rash Diphenhydramine Other: See Comments Gluten Flour Intolerance Pt reports migraines from flour Moxifloxacin Hives Septra [Sulfamethox* Rash Trileptal [Oxcarbaz* Zomig [Zolmitriptan] Zyprexa [Olanzapine] PAST MEDICAL/SURGICAL HISTORY, SOCIAL HISTORY, AND FAMILY HISTORY: Reviewed and is unchanged aside from the changes documented in HPI. REVIEW OF SYSTEMS: ROS completed and negative outside of the systems documented in the HPI. INVESTIGATIONS: All available pertinent interval investigations were reviewed and were notable for: ENDOSCOPY/PATHOLOGY: 10/19/24 Flex Sig Impression: - The sigmoid colon and descending colon are normal. Biopsied. - Proctitis. Inflammation was found from the anus to the rectum. This was graded as Saxena Score 1 (mild disease), improved compared to previous examinations. Biopsied. Pathology A. Colon, sigmoid, 20 cm, biopsy: - Colonic mucosa with mild reactive/hyperplastic epithelial changes - No evidence of active or microscopic colitis. B. Rectum, biopsy: - Colonic mucosa with patchy mucosal hemorrhage, mild lamina propria edema, and patchy denuded surface epithelium. - No evidence of active or microscopic colitis. Colonoscopy 08/17/24 Impression: - Non-bleeding internal hemorrhoids. - Erythematous, friable (with contact bleeding) and inflamed mucosa in the rectum. Biopsied. - Biopsies were taken with a cold forceps from the entire colon for evaluation of microscopic colitis. A. Terminal ileum, biopsy: - Small intestinal mucosa with no significant pathologic change. B. Colon, random, biopsy: - Colonic mucosa with no significant pathologic change. C. Rectum, biopsy: - Active proctitis with mild architectural distortion, see comment. 03/10/24- VCE Indication: Mesenteric Lymphadenopathy Capsule reached the cecum but did not leave the colon for duration of this examination Prep quality: Adequate Limited views of the esophagus and stomach were normal Small bowel: normal, no masses, ulcerations or AVMs seen Colon obscured by stool Summary: Normal video endoscopy of the small bowel EGD/[place] 03/11/24 Impression: - Normal esophagus. - Z-line regular, 35 cm from the incisors. - Normal stomach. Biopsied. - Normal duodenal bulb, first portion of the duodenum, second portion of the duodenum, third portion of the duodenum and fourth portion of the duodenum. Biopsied. - Normal examined jejunum. Biopsied. Impression: - Perianal skin tags found on perianal exam. - The examined portion of the ileum was normal. - One 4 mm polyp in the sigmoid colon, removed with a cold snare. Resected and retrieved. - The examination was otherwise normal on direct and retroflexion views. A. Random jejunum, biopsy: - Small bowel mucosa with no significant diagnostic alteration. - No evidence of celiac disease or enteritis. B. Duodenum, biopsy: - Duodenal mucosa with no significant diagnostic alteration. - No evidence of celiac disease or duodenitis. C. Gastric antrum, biopsy: - Antral mucosa with no significant diagnostic alteration. - No morphologic evidence of Helicobacter pylori organisms. D. Gastric body, biopsy: - Oxyntic mucosa with features suggestive of proton pump inhibitor effect. - No morphologic evidence of Helicobacter pylori organisms. E. Sigmoid colon polyp, biopsy: - Hyperplastic polyp. IMAGING: Stiz Markers 03/10 IMPRESSION: Progression of Sitz markers, but with markers remaining in the distal descending and rectosigmoid colon. LAB WORK: LAB WORK: Latest Reference Range & Units 08/11/24 16:30 C. difficile PCR Negative for C. difficile toxin by PCR Negative for C. difficile toxin by PCR Latest Reference Range & Units 08/24/24 13:10 08/24/24 21:00 Cryptosporidium Antigen by EIA Negative Negative for Cryptosporidium by EIA. Campylobacter jejuni/coli DNA Not Detected Not detected Salmonella species DNA Not Detected Not detected Shiga-like toxin producing E. coli (STEC) DNA Not Detected Not detected Shigella/Enteroinvasive E. coli (EIEC) DNA Not Detected Not detected Giardia Antigen by EIA Negative Negative for Giardia lamblia by EIA. Latest Reference Range & Units 08/11/24 16:30 CALPROTECTIN, FECAL INTERP Normal Elevated ! CALPROTECTIN, FECAL QUANTITATIVE <50 ug/g 5,120 (H) Physical Exam: (Limited due to Virtual Visit) [facility] 09/13/2013 General: Appears well Neurologic: Awake and alert. Total time of this patient encounter today was >25 mins, including: preparation for visit, direct time with the patient, examination, orders, review of records, and documentation. documented in this encounterC[facility]12-[facility] NoteHNO ID: [id number] Author: ESTRELLITA FERREIRA MD Service: ? Author Type: Physician Type: Progress Notes Filed: 10/21/2024 13:19 Note Text: [facility] SMALL BOWEL DISEASES AND NUTRITION FOLLOW UP VISIT: Date of direct communication: 10/21/24 This is a virtual visit. It required patient-provider interaction for the medical decision making as documented below. The patient verbally consented to a Virtual Visit with telephone back up as necessary. I have communicated my name and active licensure. The patient's identity and physical location were verified at the time of this visit. Either the patient or their legal utility sales representative has been informed of the risks and benefits of and alternatives to treatment through a remote evaluation and consents to proceed with the evaluation remotely. Start Time 1258; End Time 1315 Assessment IMPRESSION: Gisela Turner is a 54 year old female with history of GERD, MDD, Bipolar, prior ED, with abdominal bloating, constipation and pelvic floor dysfunction with recent proctitis seen on Colonoscopy 09/09. Seen in follow up. Gisela Turner had the opportunity to have all their concerns and questions addressed DIAGNOSTIC ISSUES AND PLAN: #) Bloating/Nausea/GERD Improving drastically with FODMAP restriction diet, working closely with an RD as history of ED and now reintroducing some FODMAPs. Uses [place] and Zofran PRN *rarely* She has some clear trigger foods but resolves with time. #) Proctitis pelvic floor dysfunction Clinically improving and repeat flex sig shows mild surface irritation but no colitis or chronic changes, ?reaction to topical hemorrhoid therapy, will hold off rectal 5-ASA now and monitor for symptoms She is also starting PT to help Advise to try soluble fiber #) Mesenteric lymphadenopathy Prior CT shows stability, not increasing, VCE and Push was normal, normal pathology as well, likely due to prior episode of enteritis. No further investigation at this time FOLLOW-UP: 6 monhts time, may be in person or VV Estrellita Ferreira MD, MSc, FRPC, CNSC Staff, Department of Gastroenterology, Hepatology AND Nutrition [facility] [place] [facility] 10/21/24 PRIMARY PROBLEM: rectal bleeding Last Seen in Clinic on 09/06/24, Where the plan was to start mesalamine and repeat flex sig INTERVAL HISTORY: Today patient states overall she is feeling very well No nausea and vomiting No more bloating and distension Bowel movements ar juan jose sy, working with PT for pelvic floor, goes every other day. Some straining but using pelvic wand that has helped with the breating to help evacuation No blood in the stool Urine output, feels hydrated. No SOB no CP No fever or chills CURRENT NUTRITION SUPPORT: She is back to eating three meals a day and snacks She is avoiding some foods that will lead to bloating, including honey, cari corn and corn syrup. Hot chocolate. Water and green tea, ice coffee Limited soda, Weight history: Last 5 Encounter Wt Readings: Date: Wt: Stable 10/19/2024 58.5 kg (129 lb) 09/29/2024 60.3 kg (133 lb) 08/17/2024 59.3 kg (130 lb 11.7 oz) 08/11/2024 59.3 kg (130 lb 12.8 oz) 08/09/2024 58.1 kg (128 lb) CURRENT MEDICATIONS: Current Outpatient Medications Medication Sig Dispense Refill oxybutynin XL (DITROPAN XL) 5 mg 24 hr tablet Take 1 tablet by mouth once daily. mesalamine (CANASA) 1,000 mg suppository 1 Suppository by RECTAL route daily at bedtime. 30 Each 2 estradiol (ESTRACE) 2 mg tablet Take 1 tablet by mouth once daily. 30 tablet 11 estradiol (ESTRACE) 0.01 % (0.1 mg/gram) vaginal cream APPLY A PEA SIZED AMOUNT TO LOWER VAGINA AT BEDTIME TWICE WEEKLY 43 g 0 atorvastatin (LIPITOR) 20 mg tablet aspirin, enteric coated (ASPIRIN, ENTERIC COATED) 81 mg EC tablet Take by mouth. traZODone (DESYREL) 50 mg tablet traZODone Trazodone Active 50 MG AT BEDTIME January 03, 2020 10:35pm 01-03-2020 [facility] ([id number]) QUEtiapine (SEROQUEL) 50 mg tablet Take 1 tablet by mouth daily at bedtime. 30 tablet 0 desvenlafaxine ER (PRISTIQ) 50 mg 24 hr tablet Take 1 tablet by mouth once daily. (Patient taking differently: Take 100 mg by mouth once daily.) lansoprazole (PREVACID) 30 mg capsule Take 30 mg by mouth once daily. LAMOTRIGINE (LAMICTAL ORAL) Take by mouth once daily. 200 mg daily buPROPion SR (WELLBUTRIN SR) 100 mg 12 hr tablet Take 1 tablet by mouth once daily. 0 No current facility-administered medications for this visit. ALLERGIES: ALLERGIES Allergen Reactions Amoxicillin Hives Bactrim [Sulfametho* Rash Diphenhydramine Other: See Comments Gluten Flour Intolerance Pt reports migraines from flour Moxifloxacin Hives Septra [Sulfamethox* Rash Trileptal [Oxcarbaz* Zomig [Zolmitriptan] Zyprexa [Olanzapine] PAST MEDICAL/SURGICAL HISTORY, (more content not included)...[facility]12-03-2024 Nurse Note* Sumeet Patel RN - 10/19/2024 4:41 PM EST AMBULATORY PATIENT EDUCATION NOTE TOPIC: GI PROCEDURES: Flex Sigmoidoscopy READINESS TO LEARN INSTRUCTION PROVIDED TO: Patient and family member COGNITIVE ABILITY: Alert and oriented PTED MOTIVATION TO LEARN: Interested FAMILY SUPPORT: High - Very involved in pt care IPATIENT LEARNS BEST BY: Individual Instruction Written Instruction - Hand-outs Verbal Instruction FACTORS AFFECTING LEARNING: None PHYSICAL LIMITATIONS AFFECTING LEARNING: None LEARNING RESPONSE METHOD OF INSTRUCTION: Individual instruction PATIENT / FAMILY RESPONSE: Verbalizes understanding of: WORSENING CONDITION- Signs and symptoms of aworsening condition that warrant a call to the physician FOLLOW-UP PLAN: Complete - No need for follow-up Patient instructed to call with any further issues SUPPLEMENTAL MATERIAL: Procedure Discharge Instructions REFERRAL (RECOMMENDATION): None [facility]12-03-2024 Nurse Note* Sumeet Patel RN - 10/19/2024 4:41 PM EST AMBULATORY PATIENT EDUCATION NOTE TOPIC: GI PROCEDURES: Flex Sigmoidoscopy READINESS TO LEARN INSTRUCTION PROVIDED TO: Patient and family member COGNITIVE ABILITY: Alert and oriented PTED MOTIVATION TO LEARN: Interested FAMILY SUPPORT: High - Very involved in pt care IPATIENT LEARNS BEST BY: Individual Instruction Written Instruction - Hand-outs Verbal Instruction FACTORS AFFECTING LEARNING: None PHYSICAL LIMITATIONS AFFECTING LEARNING: None LEARNING RESPONSE METHOD OF INSTRUCTION: Individual instruction PATIENT / FAMILY RESPONSE: Verbalizes understanding of: WORSENING CONDITION- Signs and symptoms of aworsening condition that warrant a call to the physician FOLLOW-UP PLAN: Complete - No need for follow-up Patient instructed to call with any further issues SUPPLEMENTAL MATERIAL: Procedure Discharge Instructions REFERRAL (RECOMMENDATION): None * Delores Martines LPN - 10/19/2024 3:53 PM EST PRE OP LEARNING ASSESSMENT PROCEDURE/SURGERY: GI PROCEDURES: Flex Sigmoidoscopy READINESS TO LEARN COGNITIVE ABILITY: Alert and oriented MOTIVATION TO LEARN: Interested FAMILY SUPPORT: Unable to assess - Family not present PATIENT LEARNS BEST BY: Verbal Instruction FACTORS AFFECTING LEARNING: None PHYSICAL LIMITATIONS AFFECTING LEARNING: None Electronically Signed By: Delores Martines LPN In Department: GASTROENTEROLOGY documented [facility] History and physical note * Estrellita Ferreira MD - 10/19/2024 4:30 PM EST PROCEDURAL SEDATION HISTORY AND PHYSICAL EXAM SERVICE DATE: 10/19/2024 SERVICE TIME: 1613 Subjective HPI: This is a 54 year old female who presents with Proctitis PAST ANESTHESIA HISTORY:No history of adverse event PAST MEDICAL HISTORY Diagnosis Date Abdominal pain, [...] BREAST BIOPSY Right 08/03/2018 TONSILLECTOMY PRIMARY/SECONDARY Tonsillectomy Prior to Admission medications as of 10/19/24 1557 Medication Sig Last Dose Taking oxybutynin XL (DITROPAN XL) 5 mg 24 hr tablet Take 1 tablet by mouth once daily. mesalamine (CANASA) 1,000 mg suppository 1 Suppository by RECTAL route daily at bedtime. estradiol (ESTRACE) 2 mg tablet Take 1 tablet by mouth once daily. estradiol (ESTRACE) 0.01 % (0.1 mg/gram) vaginal cream APPLY A PEA SIZED AMOUNT TO LOWER VAGINA AT BEDTIME TWICE WEEKLY atorvastatin (LIPITOR) 20 mg tablet aspirin, enteric coated (ASPIRIN, ENTERIC COATED) 81 mg EC tablet Take by mouth. 10/16/2024 traZODone (DESYREL) 50 mg tablet traZODone Trazodone Active 50 MG AT BEDTIME January 03, 2020 10:35pm 01-03-2020 [facility] ([id number]) QUEtiapine (SEROQUEL) 50 mg tablet Take 1 tablet by mouth daily at bedtime. desvenlafaxine ER (PRISTIQ) 50 mg 24 hr tablet Take 1 tablet by mouth once daily. Patient taking differently: Take 100 mg by mouth once daily. lansoprazole (PREVACID) 30 mg capsule Take 30 mg by mouth once daily. LAMOTRIGINE (LAMICTAL ORAL) Take by mouth once daily. 200 mg daily buPROPion SR (WELLBUTRIN SR) 100 mg 12 hr tablet Take 1 tablet by mouth once daily. ALLERGIES Allergen Reactions Amoxicillin Hives Bactrim [Sulfametho* Rash Diphenhydramine Other: See Comments Gluten Flour Intolerance Pt reports migraines from flour Moxifloxacin Hives Septra [Sulfamethox* Rash Trileptal [Oxcarbaz* Zomig [Zolmitriptan] Zyprexa [Olanzapine] CARDIOVASCULAR:No chest pain, leg swelling and palpitations PULMONARY:No cough,wheezing and shortness of breath Objective PHYSICAL EXAM:The remainder of the physical exam is noncontributory AIRWAY: Airway Visualization of Uvula: Yes Mouth opening greater than 2 fingerbreadths: Yes Neck Full Range of Motion: Yes LUNGS: Good diaphragmatic excursion CARDIAC: Regular rhythm,Regular rate Assessment/Plan ASA Class: II Patient OK for Sedation: Yes Sedation Goal: Moderate Provisional Diagnosis/Treatment Plan: Proctitis/ Flex Sig Sedation Goal: Moderate SIGNATURE: Estrellita Ferreira MD PATIENT NAME: Gisela Turner DATE: October 19, 2024 TIME: 4:13 PM Created 2023 [facility]12-03-2024 History and physical note* Estrellita Ferreira MD - 10/19/2024 4:30 PM EST PROCEDURAL SEDATION HISTORY AND PHYSICAL EXAM SERVICE DATE: 10/19/2024 SERVICE TIME: 1613 Subjective HPI: This is a 54 year old female who presents with Proctitis PAST ANESTHESIA HISTORY:No history of adverse event PAST MEDICAL HISTORY Diagnosis Date Abdominal pain, [...] 08/03/2018 TONSILLECTOMY PRIMARY/SECONDARY <AGE 12 08/02/2004 Tonsillectomy Prior to Admission medications as of 10/19/24 3444 Medication Sig Last Dose Taking oxybutynin XL (DITROPAN XL) 5 mg 24 hr tablet Take 1 tablet by mouth once daily. mesalamine (CANASA) 1,000 mg suppository 1 Suppository by RECTAL route daily at bedtime. estradiol (ESTRACE) 2 mg tablet Take 1 tablet by mouth once daily. estradiol (ESTRACE) 0.01 % (0.1 mg/gram) vaginal cream APPLY A PEA SIZED AMOUNT TO LOWER VAGINA AT BEDTIME TWICE WEEKLY atorvastatin (LIPITOR) 20 mg tablet aspirin, enteric coated (ASPIRIN, ENTERIC COATED) 81 mg EC tablet Take by mouth. 10/16/2024 traZODone (DESYREL) 50 mg tablet traZODone Trazodone Active 50 MG AT BEDTIME January 03, 2020 10:35pm 01-03-2020 [facility] ([id number]) QUEtiapine (SEROQUEL) 50 mg tablet Take 1 tablet by mouth daily at bedtime. desvenlafaxine ER (PRISTIQ) 50 mg 24 hr tablet Take 1 tablet by mouth once daily. Patient taking differently: Take 100 mg by mouth once daily. lansoprazole (PREVACID) 30 mg capsule Take 30 mg by mouth once daily. LAMOTRIGINE (LAMICTAL ORAL) Take by mouth once daily. 200 mg daily buPROPion SR (WELLBUTRIN SR) 100 mg 12 hr tablet Take 1 tablet by mouth once daily. ALLERGIES Allergen Reactions Amoxicillin Hives Bactrim [Sulfametho* Rash Diphenhydramine Other: See Comments Gluten Flour Intolerance Pt reports migraines from flour Moxifloxacin Hives Septra [Sulfamethox* Rash Trileptal [Oxcarbaz* Zomig [Zolmitriptan] Zyprexa [Olanzapine] CARDIOVASCULAR:No chest pain, leg swelling and palpitations PULMONARY:No cough,wheezing and shortness of breath Objective PHYSICAL EXAM:The remainder of the physical exam is noncontributory AIRWAY: Airway Visualization of Uvula: Yes Mouth opening greater than 2 fingerbreadths: Yes Neck Full Range of Motion: Yes LUNGS: Good diaphragmatic excursion CARDIAC: Regular rhythm,Regular rate Assessment/Plan ASA Class: II Patient OK for Sedation: Yes Sedation Goal: Moderate Provisional Diagnosis/Treatment Plan: Proctitis/ Flex Sig Sedation Goal: Moderate SIGNATURE: Estrellita Ferreira MD PATIENT NAME: Gisela Turner DATE: October 19, 2024 TIME: 4:13 PM Created 2023 documented in [facility] encounterC[facility] Nurse Note* Delores Martines LPN - 10/19/2024 3:53 PM EST PRE OP LEARNING ASSESSMENT PROCEDURE/SURGERY: GI PROCEDURES: Flex Sigmoidoscopy READINESS TO LEARN COGNITIVE ABILITY: Alert and oriented MOTIVATION TO LEARN: Interested FAMILY SUPPORT: Unable to assess - Family not present PATIENT LEARNS BEST BY: Verbal Instruction FACTORS AFFECTING LEARNING: None PHYSICAL LIMITATIONS AFFECTING LEARNING: None Electronically Signed By: Delores Martines LPN In Department: GASTROENTEROLOGY [facility]11-25-[facility] Telephone encounter Note* Telephone Encounter - Estrellita Simons RN - 10/11/2024 8:35 AM EST Patient was seen in office on 09/29 for vaginal burning. Swabs were negative for infection. Estrellita Simons RN [facility]11-25-2024 Miscellaneous Notes* Telephone Encounter - Estrellita Simons RN - 10/11/2024 8:35 AM EST Patient was seen in office on 09/29 for vaginal burning. Swabs were negative for infection. Estrellita Simons RN documented in this encounterC[facility]11-13-2024 NoteHNO ID: [id number] Author: KATHIE FERREIRA MD Service: ? Author Type: Physician Type: Progress Notes Filed: 09/29/2024 13:59 Note Text: 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 Gisela Turner is a 54 year old female who presents for problem visit for c/o urinary frequency and vaginal burning. HPI: 54 YOF notes vaginal burning and discomfort. No bleeding or blood in urine. No abnormal discharge. Feels spasms in bladder. Has been going on about a year. Using aquaphor externally. Shower or heat almost makes it worse. Sex can make burning worse. Uses gel. No feeling of fissures or tears. Doestn' feel worse after vaginal estrogen and has been using that a couple of years. 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 LMP: 09/13/2013, Hysterectomy Age at Menarche: Age at First : Age at Menopause: Industrial Cleaner History Comments: Sexual Activity: Yes; Male Contraception: [...] Stroke Mother other (anorexia) Mother Heart Father No Known Problems Brother No Known Problems Brother No Known Problems Brother Arthritis Maternal Grandmother Heart Maternal Grandfather Arthritis Maternal Grandfather Breast Cancer Maternal Aunt Social History Tobacco Use Smoking status: Never Smokeless tobacco: Never Vaping Use Vaping status: Never Used Substance Use Topics Alcohol use: No Drug use: No Current Outpatient Medications Medication Sig mesalamine (CANASA) 1,000 mg suppository 1 Suppository by RECTAL route daily at bedtime. estradiol (ESTRACE) 2 mg tablet Take 1 tablet by mouth once daily. estradiol (ESTRACE) 0.01 % (0.1 mg/gram) vaginal cream APPLY A PEA SIZED AMOUNT TO LOWER VAGINA AT BEDTIME TWICE WEEKLY atorvastatin (LIPITOR) 20 mg tablet aspirin, enteric coated (ASPIRIN, ENTERIC COATED) 81 mg EC tablet Take by mouth. traZODone (DESYREL) 50 mg tablet traZODone Trazodone Active 50 MG AT BEDTIME January 03, 2020 10:35pm 01-03-2020 [facility] ([id number]) QUEtiapine (SEROQUEL) 50 mg tablet Take 1 tablet by mouth daily at bedtime. desvenlafaxine ER (PRISTIQ) 50 mg 24 hr tablet Take 1 tablet by mouth once daily. (Patient taking differently: Take 100 mg by mouth once daily.) lansoprazole (PREVACID) 30 mg capsule Take 30 mg by mouth once daily. LAMOTRIGINE (LAMICTAL ORAL) Take by mouth once daily. 200 mg daily buPROPion SR (WELLBUTRIN SR) 100 mg 12 hr tablet Take 1 tablet by mouth once daily. No current facility-administered medications for this visit. Allergies As of Date: 09/29/2024 Allergen Noted Reaction AMOXICILLIN 11/25/2005 Hives BACTRIM [SULFAMETHOXAZOLE] 11/13/2011 Rash DIPHENHYDRAMINE 10/07/2018 Other: See Comments GLUTEN FLOUR 10/21/2018 Intolerance MOXIFLOXACIN 06/04/2023 Hives SEPTRA [SULFAMETHOXAZOLE-TRIMETHO*11/25/2005 Rash TRILEPTAL [OXCARBAZEPINE] 12/16/2005 ZOMIG [ZOLMITRIPTAN] 12/16/2005 ZYPREXA [OLANZAPINE] 12/16/2005 Fully Assessed 08/17/2024 Allergies and current medication updated:Yes SENSITIVE EXAM: The sensitive examination was discussed with the Patient or Patient's Authorized Enterprise Resource Planner. As applicable, any other physician, advance practice provider, medical student, or other health professional student that will be observing or involved in the sensitive examination for educational or training purposes was discussed with the Patient or Authorized Enterprise Resource Planner. The Patient or Authorized Enterprise Resource Planner has agreed to proceed with the sensitive examination. (Sensitive examination includes inspection and/or palpation of the breasts, pelvis, prostate and anorectal regions). EXAM: BP 112/78 Wt 133 lb (60.3kg) LMP 09/13/2013 GENERAL: pleasant, female in no apparent distress PELVIC: external genitalia normal, normal Bartholin's glands, urethra, [place]'s glands, no vulvar lesions, good vaginal support, physiologic discharge present, normal appearing perineal body and perianal region, cervix surgically absent, p (more content not included)...[facility]11-13-[facility] History of Present illness Narrative* Kathie Ferreira MD - 09/29/2024 1:32 PM EST 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 Gisela Turner is a 54 year old female who presents for problem visit for c/o urinary frequency andvaginal burning. HPI: 54 YOF notes vaginal burning and discomfort. No bleeding or blood in urine. No abnormal discharge. Feels spasms in bladder. Has been going on about a year. Using aquaphor externally. Shower or heat almost makes it worse. Sex can make burning worse. Uses gel. No feeling of fissures or tears. Doestn' feel worse after vaginal estrogen and has been using that a couple of years. 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 LMP: 09/13/2013, Hysterectomy Age at Menarche: Age at First : Age at Menopause: Industrial Cleaner History Comments: Sexual Activity: Yes; Male Contraception: [...] Stroke Mother other (anorexia) Mother Heart Father No Known Problems Brother No Known Problems Brother No Known Problems Brother Arthritis Maternal Grandmother Heart Maternal Grandfather Arthritis Maternal Grandfather Breast Cancer Maternal Aunt Social History Tobacco Use Smoking status: Never Smokeless tobacco: Never Vaping Use Vaping status: Never Used Substance Use Topics Alcohol use: No Drug use: No Current Outpatient Medications Medication Sig mesalamine (CANASA) 1,000 mg suppository 1 Suppository by RECTAL route daily at bedtime. estradiol (ESTRACE) 2 mg tablet Take 1 tablet by mouth once daily. estradiol (ESTRACE) 0.01 % (0.1 mg/gram) vaginal cream APPLY A PEA SIZED AMOUNT TO LOWER VAGINA AT BEDTIME TWICE WEEKLY atorvastatin (LIPITOR) 20 mg tablet aspirin, enteric coated (ASPIRIN, ENTERIC COATED) 81 mg EC tablet Take by mouth. traZODone (DESYREL) 50 mg tablet traZODone Trazodone Active 50 MG AT BEDTIME January 03, 2020 10:35pm 01-03-2020 [facility] ([id number]) QUEtiapine (SEROQUEL) 50 mg tablet Take 1 tablet by mouth daily at bedtime. desvenlafaxine ER (PRISTIQ) 50 mg 24 hr tablet Take 1 tablet by mouth once daily. (Patient taking differently: Take 100 mg by mouth once daily.) lansoprazole (PREVACID) 30 mg capsule Take 30 mg by mouth once daily. LAMOTRIGINE (LAMICTAL ORAL) Take by mouth once daily. 200 mg daily buPROPion SR (WELLBUTRIN SR) 100 mg 12 hr tablet Take 1 tablet by mouth once daily. No current facility-administered medications for this visit. Allergies As of Date: 09/29/2024 Allergen Noted Reaction AMOXICILLIN 11/25/2005 Hives BACTRIM [SULFAMETHOXAZOLE] 11/13/2011 Rash DIPHENHYDRAMINE 10/07/2018 Other: See Comments GLUTEN FLOUR 10/21/2018 Intolerance MOXIFLOXACIN 06/04/2023 Hives SEPTRA [SULFAMETHOXAZOLE-TRIMETHO*11/25/2005 Rash TRILEPTAL [OXCARBAZEPINE] 12/16/2005 ZOMIG [ZOLMITRIPTAN] 12/16/2005 ZYPREXA [OLANZAPINE] 12/16/2005 Fully Assessed 08/17/2024 Allergies and current medication updated:Yes SENSITIVE EXAM: The sensitive examination was discussed with the Patient or Patient's Authorized Enterprise Resource Planner. As applicable, any other physician, advance practice provider, medical student, or other health professional student that will be observing or involved in the sensitive examination for educational or training purposes was discussed with the Patient or Authorized Enterprise Resource Planner. The Patient or Authorized Enterprise Resource Planner has agreed to proceed with the sensitive examination. (Sensitive examination includes inspection and/or palpation of the breasts, pelvis, prostate and anorectal regions). EXAM: BP 112/78 Wt 133 lb (60.3kg) LMP 09/13/2013 GENERAL: pleasant, female in no apparent distress PELVIC: external genitalia normal, normal Bartholin's glands, urethra, [place]'s glands, no vulvar lesions, good vaginal support, physiologic discharge present, normal appearing perineal body and perianal region, cervix surgically absent, pain to light touch right side of introitus and just inside vagina ASSESSMENT AND PLAN: Assessment & Plan Vaginal burning Orders: BACTERIAL VAGINOSIS NAAT MARIO/TRICHOMONAS NAAT Vulvodynia check swabs cont. vaginal estrogen trial vaginal compounded cream, rx sent to [facility] Kathie Ferreira MD documented in this encounterC[facility] NoteHNO ID: [id number] Author: ALKA SHEPPARD PT Service: ? Author Type: Physical Therapist Type: Progress Notes Filed: 09/29/2024 15:52 Note Text: Episode Visit Count: 10 Therapist That Will Accept/Oversee The Plan Of Care: Alka Sheppard PT, DPT Start of Care Date: 03/31/24 Onset Date: 03/04/24 Plan of Care Certification Date: 09/29/24 Next Certification Due Date: 12/28/24 Patient Identified by Name and Date of : Yes REHABILITATION AND SPORTS THERAPY PHYSICAL THERAPY PROGRESS REPORT PLAN OF CARE UPDATE: Assessment: Gisela Turner demonstrates moderate improvement in compromised bowel function. The patient has progressed toward goals. Patient continues to present with impairments in independence in exercise and symptom management that interfere with bladder function, bowel function, physical activities, recreational activities . Current prognosis is Good due to: current objective clinical presentation, good overall health status, good support system/ coping skills . The patient will benefit from continued skilled therapy services to meet the updated goals for this plan of care as noted below. Goals for Episode of Care: created on 03/31/24 through 06/29/24, updated on 06/07/2024, 06/28/2024, 07/28/2024, 09/29/2024 Patient demonstrates independence and compliance with home exercise program.- ONGOING Patient displays improved range of motion, coordination, and muscle dynamics of pelvic floor as evidenced by the ability to lengthen without paradoxical contraction at least 75% of the time to normalize bladder/bowel function; reduce pelvic pain.-PROGRESSING Patient to correctly isolate pelvic floor muscles without compensatory patterns of breath holding and gluteal use to improve bladder/bowel control.-MOSTLY MET Patient reports having >4 bowel movements per week without use of enema, suppositories, and reduced need for supplementation to demonstrate improved bowel function.-GOAL MET Patient reports increased water intake to >50 ounces/day to promote bladder and bowel health.-MOSTLY MET Patient demonstrates ability to perform diaphragmatic breathing and relaxation practice independently to allow for decreased muscle tightness, decreased pain, and improved bladder/bowel function. -PROGRESSING, 80% PROGRESS Patient Goals: improve evacuation and defecation Time Frame for Goals and Treatment : 12/28/24 Planned Interventions, Frequency, and Duration: 1x/month, 12 weeks Total Number of Visits Planned: 3 Patient to be seen for Therapeutic exercise (82200), Neuromuscular re-education (44961), Manual therapy (76211), Therapeutic activities (40447), Self-half-way management (90472), Patient/Family/Caregiver Education, Body Mechanics Training PLAN FOR NEXT VISIT: progress HEP per tolerance, inquire regarding vulvar burning SUBJECTIVE: Using suppositories and wand for pain and symptom relief. No longer having cramping or pain. Vulvar burning largest complaint this date.. Functional Limitations: bladder function, bowel function, physical activities, recreational activities Pain: Pain Pain Level: 0 Pain Location: Abdomen Post Treatment Pain Post Treatment Pain Level: No Change PROMIS Scales 09/12/2024 08/09/2024 07/14/2024 Higher is Better Phys Func - Score 55 (within normal limits) 52 (within normal limits) 57 (within normal limits) Phys Func - Percentile 69 58 76 Self-Eff Symptom - Score 54 (Average) 48 (Average) 41 (Average) Self-Eff Symptom - Percentile 66 42 18 T-scores: mean of general population = 50. 5 points is clinically meaningfully difference Percentiles provide an indication of how the patient's score ranks in relation to the general population. Higher percentile rankings indicate better function/quality of life. 50th percentile is the average of the general population and indicates half of respondents had a worse score. OBJECTIVE MEASURES WITH LEVEL OF FUNCTION: Pelvic Floor Difficulty evacuating / Excessive Straining: No (not lately) Bowel Movement Frequency: 1-2x/day Bowel Movement Consistency (Winston) : 5: Soft blobs with clear cut edges, 4: Like a sausage or snake, smooth and soft Bloating / abdominal pain: No Pelvic Floor Muscle Assessment Consent for pelvic assessment/testing and treatment: Patient was educated regarding pelvic floor physical therapy assessment/treatment which may include pelvic floor and girdle muscle assessment externally or internally (vaginal or rectal approach)., Patient verbalized consent for the above treatment approaches today. Patient understands they have control of the treatment and an opportunity to stop treatment at any time. Pelvic Floor Muscle Assessment: Muscle Dynamics Contracton Pressure: Moderate squeeze, felt all the way around finger surface Duration of Contraction: >3 seconds Recruitment of pelvic floor muscles: Coordinated Range of Motion: Decreased Ability to Lengthen pelvic (more content not included)...[facility]11-13-2024 History of Present illness Narrative* Alka Sheppard PT - 09/29/2024 11:52 AM EST Episode Visit Count: 10 Therapist That Will Accept/Oversee The Plan Of Care: Alka Sheppard PT, DPT Start of Care Date: 03/31/24 Onset Date: 03/04/24 Plan of Care Certification Date: 09/29/24 Next Certification Due Date: 12/28/24 Patient Identified by Name and Date of : Yes REHAB[facility]ORTS THERAPY PHYSICAL THERAPY PROGRESS REPORT PLAN OF CARE UPDATE: Assessment: Gisela Turner demonstrates moderate improvement in compromised bowel function. The patient has progressed toward goals. Patient continues to present with impairments in independence in exercise and symptom management that interfere with bladder function, bowel function, physical activities, recreational activities . Current prognosis is Good due to: current objective clinical presentation, good overall health status, good support system/ coping skills . The patient will benefit from continued skilled therapy services to meet the updated goals for this plan of care as noted below. Goals for Episode of Care: created on 03/31/24 through 06/29/24, updated on 06/07/2024, 06/28/2024, 07/28/2024, 09/29/2024 Patient demonstrates independence and compliance with home exercise program.- ONGOING Patient displays improved range of motion, coordination, and muscle dynamics of pelvic floor as evidenced by the ability to lengthen without paradoxical contraction at least 75% of the time to normalize bladder/bowel function; reduce pelvic pain.-PROGRESSING Patient to correctly isolate pelvic floor muscles without compensatory patterns of breath holding and gluteal use to improve bladder/bowel control.-MOSTLY MET Patient reports having >4 bowel movements per week without use of enema, suppositories, and reduced need for supplementation to demonstrate improved bowel function.-GOAL MET Patient reports increased water intake to >50 ounces/day to promote bladder and bowel health.-MOSTLY MET Patient demonstrates ability to perform diaphragmatic breathing and relaxation practice independently to allow for decreased muscle tightness, decreased pain, and improved bladder/bowel function. -PROGRESSING, 80% PROGRESS Patient Goals: improve evacuation and defecation Time Frame for Goals and Treatment : 12/28/24 Planned Interventions, Frequency, and Duration: 1x/month, 12 weeks Total Number of Visits Planned: 3 Patient to be seen for Therapeutic exercise (50434), Neuromuscular re-education (03163), Manual therapy (66344), Therapeutic activities (17385), Self-half-way management (27965), Patient/Family/Caregiver Education, Body Mechanics Training PLAN FOR NEXT VISIT: progress HEP per tolerance, inquire regarding vulvar burning SUBJECTIVE: Using suppositories and wand for pain and symptom relief. No longer having cramping or pain. Vulvar burning largest complaint this date.. Functional Limitations: bladder function, bowel function, physical activities, recreational activities Pain: Pain Pain Level: 0 Pain Location: Abdomen Post Treatment Pain Post Treatment Pain Level: No Change PROMIS Scales 09/12/2024 08/09/2024 07/14/2024 Higher is Better Phys Func - Score 55 (within normal limits) 52 (within normal limits) 57 (within normal limits) Phys Func - Percentile 69 58 76 Self-Eff Symptom - Score 54 (Average) 48 (Average) 41 (Average) Self-Eff Symptom - Percentile 66 42 18 T-scores: mean of general population = 50. 5 points is clinically meaningfully difference Percentiles provide an indication of how the patient's score ranks in relation to the general population. Higher percentile rankings indicate better function/quality of life. 50th percentile is the average of the general population and indicates half of respondents had a worse score. OBJECTIVE MEASURES WITH LEVEL OF FUNCTION: Pelvic Floor Difficulty evacuating / Excessive Straining: No (not lately) Bowel Movement Frequency: 1-2x/day Bowel Movement Consistency (Winston) : 5: Soft blobs with clear cut edges, 4: Like a sausage or snake, smooth and soft Bloating / abdominal pain: No Pelvic Floor Muscle Assessment Consent for pelvic assessment/testing and treatment: Patient was educated regarding pelvic floor physical therapy assessment/treatment which may include pelvic floor and girdle muscle assessment externally or internally (vaginal or rectal approach)., Patient verbalized consent for the above treatment approaches today. Patient understands they have control of the treatment and an opportunity to stop treatment at any time. Pelvic Floor Muscle Assessment: Muscle Dynamics Contracton Pressure: Moderate squeeze, felt all the way around finger surface Duration of Contraction: >3 seconds Recruitment of pelvic floor muscles: Coordinated Range of Motion: Decreased Ability to Lengthen pelvic floor: Difficulty at first, but improves with cueing and practice Relaxation Postcontraction: Partial Pelvic Floor Manual Assessment Pelvic Floor Tenderness/Hyperactivity: Tested Rectally in Tested Rectally in : Sidelying Iliococcygeus: Left Obturator internus: Bilateral Pubococcygeus: Bilateral Puborectalis: Left TREATMENT: Manual Therapy: 1: reviewed wand use 2: assisted lengthening rectally with breathing, sidelying, 1 digit 3: internal rectal distraction, focus on puborectalis, deep breathing implemented to assist with relaxation 4: internal rectal coordination retraining 5: upper quadrant STM in supine 6: lower quadrant MFR Skilled Intervention: Manual skills to improve joint mobility, ROM, and decrease pain. Utilized anatomy knowledge of the therapist, and assessment of patient's response to intervention. Neuromuscular Re-Education: 1: progress report Skilled Intervention: Skilled judgment used to assess appropriate program for balance and coordination activity. Reviewed and educated patient on additions/changes for home program as noted above with an (*). Provided written instruction for home program to facilitate proper performance and compliance. Correct performance of home program was facilitated with verbal, visual, and tactile cueing. Patient education as noted. Billing Manual TherapyTreatment Minutes: 30 Neuromuscular Re-Education Treatment Minutes: 15 Total Session Time (minutes): 45 Session Start Time : 1150 Session Stop Time : 1235 Alka Sheppard PT [facility] Tele[facility] encounter Note * Telephone Encounter - Araceli Khalil RN - 09/17/2024 4:37 PM EDT Patient called with c/o urinary urgency and vaginal irritation. States Dr. Krause tested her urine 2 weeks ago and it was negative for infection. Patient is currently out of town. Advised to go to Urgent care locally since it's the weekend. Patient voiced agreement. She is not having vaginal discharge or odor. Has not yet tried applying Aquaphor to the vaginal opening as instructed by RR in 08/22/24 [employer] message. Offered her an appointment for next week with any provider. Patient will go tourgent care, purchase Aquaphor and then call the office on Friday if she wants an appointment. Araceli Khalil RN [facility]11-01-[facility] Miscellaneous Notes* Telephone Encounter - Araceli Khalil RN - 09/17/2024 4:37 PM EDT Patient called with c/o urinary urgency and vaginal irritation. States Dr. Krause tested her urine 2 weeks ago and it was negative for infection. Patient is currently out of town. Advised to go to Urgent care locally since it's the weekend. Patient voiced agreement. She is not having vaginal discharge or odor. Has not yet tried applying Aquaphor to the vaginal opening as instructed by RR in 08/22/24 [employer] message. Offered her an appointment for next week with any provider. Patient will go tourgent care, purchase Aquaphor and then call the office on Friday if she wants an appointment. Araceli Khalil RN documented in [facility] encounterC[facility]24 NoteHNO ID: [id number] Author: ETSRELLITA FERREIRA MD Service: ? Author Type: Physician Type: Progress Notes Filed: 09/06/2024 17:05 Note Text: [facility] SMALL BOWEL DISEASES AND NUTRITION FOLLOW UP VISIT: Date of direct communication: 09/06/24 This is a virtual visit. It required patient-provider interaction for the medical decision making as documented below. The patient verbally consented to a Virtual Visit with telephone back up as necessary. I have communicated my name and active licensure. The patient's identity and physical location were verified at the time of this visit. Either the patient or their legal utility sales representative has been informed of the risks and benefits of and alternatives to treatment through a remote evaluation and consents to proceed with the evaluation remotely. Start Time 0801; End Time 08 Assessment IMPRESSION: Gisela Turner is a 54 year old female with history of GERD, MDD, Bipolar, prior ED, with abdominal bloating, constipation and pelvic floor dysfunction. Seen in follow up. Gisela Turner had the opportunity to have all their concerns and questions addressed DIAGNOSTIC ISSUES AND PLAN: #) Bloating/Nausea/GERD Improving drastically with FODMAP restriction diet, working closely with an RD as history of ED and now reintroducing some FODMAPs. Uses Gassex and Zofran PRN The PPI is helpful in her symptoms and overall improving. #) Proctitis pelvic floor dysfunction Elevated fecal michael protectin and repeat colonoscopy proctitis with active colitis new onset, on rectal 5ASA, will repeat scope in Dec to see for effect. Clinically improving. She is also starting PT to help Advise to try soluble fiber #) Mesenteric lymphadenopathy Prior CT shows stability, not increasing, VCE and Push was normal, normal pathology as well, likely due to prior episode of enteritis. No further investigation at this time FOLLOW-UP: At time of endoscopy Estrellita Ferreira MD, MSc, FR, [facility] Staff, Department of Gastroenterology, Hepatology AND Nutrition [facility] [place] [facility] 09/06/24 PRIMARY PROBLEM: Chronic constipation./bloating Last Seen in Clinic on 06/17/24, Where the plan was to continue with dietary. INTERVAL HISTORY: Today patient states she had frequent diarrhea and blood noted in July, sudden onset. No food poisoning Started Mesalamine at bedtime for the last couple weeks and it has cleared up the diarrhea and blood She goes now about once a day, soft and formed. Non bloody. Rarely hard. Notably she is having some issues with urinating, she has an appointment with PCP. She notes will get rare episode of bloating. She is tolerating suppositories but notably getting migraines with therapy CURRENT NUTRITION SUPPORT: Oral intake, three meals a day and snacks Working with RD Weight history: Last 5 Encounter Wt Readings: Date: Wt: 08/17/2024 59.3 kg (130 lb 11.7 oz) 08/11/2024 59.3 kg (130 lb 12.8 oz) 08/09/2024 58.1 kg (128 lb) 06/17/2024 59.9 kg (132 lb) 02/20/2024 59 kg (130 lb) CURRENT MEDICATIONS: Current Outpatient Medications Medication Sig Dispense Refill mesalamine (CANASA) 1,000 mg suppository 1 Suppository by RECTAL route daily at bedtime. 30 Each 0 hydrocortisone (ANUSOL-HC) 2.5 % rectal cream by RECTAL route two times a day. 28 g 0 estradiol (ESTRACE) 2 mg tablet Take 1 tablet by mouth once daily. 30 tablet 11 estradiol (ESTRACE) 0.01 % (0.1 mg/gram) vaginal cream APPLY A PEA SIZED AMOUNT TO LOWER VAGINA AT BEDTIME TWICE WEEKLY 43 g 0 dicyclomine (BENTYL) 20 mg tablet Take 1 tablet by mouth three times a day. 90 tablet 0 atorvastatin (LIPITOR) 20 mg tablet aspirin, enteric coated (ASPIRIN, ENTERIC COATED) 81 mg EC tablet Take by mouth. traZODone (DESYREL) 50 mg tablet traZODone Trazodone Active 50 MG AT BEDTIME January 03, 2020 10:35pm 01-03-2020 [facility] ([id number]) QUEtiapine (SEROQUEL) 50 mg tablet Take 1 tablet by mouth daily at bedtime. 30 tablet 0 desvenlafaxine ER (PRISTIQ) 50 mg 24 hr tablet Take 1 tablet by mouth once daily. (Patient taking differently: Take 100 mg by mouth once daily.) lansoprazole (PREVACID) 30 mg capsule Take 30 mg by mouth once daily. LAMOTRIGINE (LAMICTAL ORAL) Take by mouth once daily. 200 mg daily buPROPion SR (WELLBUTRIN SR) 100 mg 12 hr tablet Take 1 tablet by mouth once daily. 0 No current facility-administered medications for this visit. ALLERGIES: ALLERGIES Allergen Reactions Amoxicillin Hives Bactrim [Sulfametho* Rash Diphenhydramine Other: See Comments Gluten Flour Intolerance Pt reports migraines from flour Moxifloxacin Hives Septra [Sulfamethox* Rash Trileptal [Oxcarbaz* Zomig [Zolmitriptan] Zyprexa [Olanzapine] PAST MEDICAL/SURGICAL HISTORY, SOCIAL HISTORY, AND FAMILY HISTORY: Reviewed and is unchanged a (more content not included)...[facility]10-21-[facility] History of Present illness Narrative* Estrellita Ferreira MD - 09/06/2024 8:00 AM EDT [facility] SMALL BOWEL DISEASES AND NUTRITION FOLLOW UP VISIT: Date of direct communication: 09/06/24 This is a virtual visit. It required patient-provider interaction for the medical decision making as documented below. The patient verbally consented to a Virtual Visit with telephone back up as necessary. I have communicated my name and active licensure. The patient's identity and physical location were verified at the time of this visit. Either the patient or their legal utility sales representative has beeninformed of the risks and benefits of and alternatives to treatment through a remote evaluation andconsents to proceed with the evaluation remotely. Start Time 0801; End Time 08 Assessment IMPRESSION: Gisela Turner is a 54 year old female with history of GERD, MDD, Bipolar, prior ED, with abdominal bloating, constipation and pelvic floor dysfunction. Seen in follow up. Gisela Turner had the opportunity to have all their concerns and questions addressed DIAGNOSTIC ISSUES AND PLAN: #) Bloating/Nausea/GERD Improving drastically with FODMAP restriction diet, working closely with an RD as history of ED andnow reintroducing some FODMAPs. Uses Gas[place] and Zofran PRN The PPI is helpful in her symptoms and overall improving. #) Proctitis pelvic floor dysfunction Elevated fecal michael protectin and repeat colonoscopy proctitis with active colitis new onset, on rectal 5ASA, will repeat scope in Dec to see for effect. Clinically improving. She is also starting PT to help Advise to try soluble fiber #) Mesenteric lymphadenopathy Prior CT shows stability, not increasing, VCE and Push was normal, normal pathology as well, likelydue to prior episode of enteritis. No further investigation at this time FOLLOW-UP: At time of endoscopy Estrellita Ferreira MD, MSc, [facility] Staff, Department of Gastroenterology, Hepatology & Nutrition [facility] Disease [facility] [place] [facility] 09/06/24 PRIMARY PROBLEM: Chronic constipation./bloating Last Seen in Clinic on 06/17/24, Where the plan was to continue with dietary. INTERVAL HISTORY: Today patient states she had frequent diarrhea and blood noted in July, sudden onset. No food poisoning Started Mesalamine at bedtime for the last couple weeks and it has cleared up the diarrhea and blood She goes now about once a day, soft and formed. Non bloody. Rarely hard. Notably she is having some issues with urinating, she has an appointment with PCP. She notes will get rare episode of bloating. She is tolerating suppositories but notably getting migraines with therapy CURRENT NUTRITION SUPPORT: Oral intake, three meals a day and snacks Working with RD Weight history: Last 5 Encounter Wt Readings: Date: Wt: 08/17/2024 59.3 kg (130 lb 11.7 oz) 08/11/2024 59.3 kg (130 lb 12.8 oz) 08/09/2024 58.1 kg (128 lb) 06/17/2024 59.9 kg (132 lb) 02/20/2024 59 kg (130 lb) CURRENT MEDICATIONS: Current Outpatient Medications Medication Sig Dispense Refill mesalamine (CANASA) 1,000 mg suppository 1 Suppository by RECTAL route daily at bedtime. 30 Each 0 hydrocortisone (ANUSOL-HC) 2.5 % rectal cream by RECTAL route two times a day. 28 g 0 estradiol (ESTRACE) 2 mg tablet Take 1 tablet by mouth once daily. 30 tablet 11 estradiol (ESTRACE) 0.01 % (0.1 mg/gram) vaginal cream APPLY A PEA SIZED AMOUNT TO LOWER VAGINA AT BEDTIME TWICE WEEKLY 43 g 0 dicyclomine (BENTYL) 20 mg tablet Take 1 tablet by mouth three times a day. 90 tablet 0 atorvastatin (LIPITOR) 20 mg tablet aspirin, enteric coated (ASPIRIN, ENTERIC COATED) 81 mg EC tablet Take by mouth. traZODone (DESYREL) 50 mg tablet traZODone Trazodone Active 50 MG AT BEDTIME January 03, 2020 10:35pm 01-03-2020 [facility] ([id number]) QUEtiapine (SEROQUEL) 50 mg tablet Take 1 tablet by mouth daily at bedtime. 30 tablet 0 desvenlafaxine ER (PRISTIQ) 50 mg 24 hr tablet Take 1 tablet by mouth once daily. (Patient taking differently: Take 100 mg by mouth once daily.) lansoprazole (PREVACID) 30 mg capsule Take 30 mg by mouth once daily. LAMOTRIGINE (LAMICTAL ORAL) Take by mouth once daily. 200 mg daily buPROPion SR (WELLBUTRIN SR) 100 mg 12 hr tablet Take 1 tablet by mouth once daily. 0 No current facility-administered medications for this visit. ALLERGIES: ALLERGIES Allergen Reactions Amoxicillin Hives Bactrim [Sulfametho* Rash Diphenhydramine Other: See Comments Gluten Flour Intolerance Pt reports migraines from flour Moxifloxacin Hives Septra [Sulfamethox* Rash Trileptal [Oxcarbaz* Zomig [Zolmitriptan] Zyprexa [Olanzapine] PAST MEDICAL/SURGICAL HISTORY, SOCIAL HISTORY, AND FAMILY HISTORY: Reviewed and is unchanged aside from the changes documented in HPI. REVIEW OF SYSTEMS: ROS completed and negative outside of the systems documented in the HPI. INVESTIGATIONS: All available pertinent interval investigations were reviewed and were notable for: ENDOSCOPY/PATHOLOGY: Colonoscopy 08/17/24 Impression: - Non-bleeding internal hemorrhoids. - Erythematous, friable (with contact bleeding) and inflamed mucosa in the rectum. Biopsied. - Biopsies were taken with a cold forceps from the entire colon for evaluation of microscopic colitis. A. Terminal ileum, biopsy: - Small intestinal mucosa with no significant pathologic change. B. Colon, random, biopsy: - Colonic mucosa with no significant pathologic change. C. Rectum, biopsy: - Active proctitis with mild architectural distortion, see comment. 03/10/24- VCE Indication: Mesenteric Lymphadenopathy Capsule reached the cecum but did not leave the colon for duration of this examination Prep quality: Adequate Limited views of the esophagus and stomach were normal Small bowel: normal, no masses, ulcerations or AVMs seen Colon obscured by stool Summary: Normal video endoscopy of the small bowel EGD/[place] 03/11/24 Impression: - Normal esophagus. - Z-line regular, 35 cm from the incisors. - Normal stomach. Biopsied. - Normal duodenal bulb, first portion of the duodenum, second portion of the duodenum, third portion of the duodenum and fourth portion of the duodenum. Biopsied. - Normal examined jejunum. Biopsied. Impression: - Perianal skin tags found on perianal exam. - The examined portion of the ileum was normal. - One 4 mm polyp in the sigmoid colon, removed with a cold snare. Resected and retrieved. - The examination was otherwise normal on direct and retroflexion views. A. Random jejunum, biopsy: - Small bowel mucosa with no significant diagnostic alteration. - No evidence of celiac disease or enteritis. B. Duodenum, biopsy: - Duodenal mucosa with no significant diagnostic alteration. - No evidence of celiac disease or duodenitis. C. Gastric antrum, biopsy: - Antral mucosa with no significant diagnostic alteration. - No morphologic evidence of Helicobacter pylori organisms. D. Gastric body, biopsy: - Oxyntic mucosa with features suggestive of proton pump inhibitor effect. - No morphologic evidence of Helicobacter pylori organisms. E. Sigmoid colon polyp, biopsy: - Hyperplastic polyp. IMAGING: Stiz Markers 03/10 IMPRESSION: Progression of Sitz markers, but with markers remaining in the distal descending and rectosigmoid colon. LAB WORK: Latest Reference Range & Units 08/11/24 16:30 C. difficile PCR Negative for C. difficile toxin by PCR Negative for C. difficile toxin by PCR Latest Reference Range & Units 08/24/24 13:10 08/24/24 21:00 Cryptosporidium Antigen by EIA Negative Negative for Cryptosporidium by EIA. Campylobacter jejuni/coli DNA Not Detected Not detected Salmonella species DNA Not Detected Not detected Shiga-like toxin producing E. coli (STEC) DNA Not Detected Not detected Shigella/Enteroinvasive E. coli (EIEC) DNA Not Detected Not detected Giardia Antigen by EIA Negative Negative for Giardia lamblia by EIA. Latest Reference Range & Units 08/11/24 16:30 CALPROTECTIN, FECAL INTERP Normal Elevated ! CALPROTECTIN, FECAL QUANTITATIVE <50 ug/g 5,120 (H) !: Data is abnormal (H): Data is abnormally high Physical Exam: (Limited due to Virtual Visit) LMP 09/13/2013 General: Appears well Neurologic: Awake and alert. Total time of this patient encounter today was >35 mins, including: preparation for visit, direct time with the patient, examination, orders, review of records, and documentation. documented in this encounterC[facility] History of Present illness Narrative* Alka Sheppard, PT - 08/25/2024 12:33 PM EDT Program_ID:[id number] Access Code: [email or web address] URL: [email or web address] Date: 08-25-2024 Prepared By: Alka Sheppard Program Notes Exercises - Supine Diaphragmatic Breathing with Pelvic Floor Lengthening - 2 x daily - 7 x weekly - sets - 10 reps - Diaphragmatic Breathing in Child's Pose with Pelvic Floor Relaxation - 1-2 x daily - 7 x weekly - 2 sets - reps - Supine Lower Trunk Rotation - 1-2 x daily - 7 x weekly - sets - 10 reps - Hip Flexor Stretch on Step - 1-2 x daily - 7 x weekly - 3 sets - reps - Static Prone on Elbows - 1-2 x daily - 7 x weekly - 3 sets - reps - Cat Cow to Child's Pose - 1 x daily - 7 x weekly - 3 sets - 10 reps - Seated Hamstring Stretch - 2 x daily - 7 x weekly - 3 sets - reps - Right Standing Lateral Shift Correction at Wall - Hold - 2 x daily - 7 x weekly - sets - 10 reps Patient Education - Get To Know Your Pelvic Floor- Female - cc Pelvic Floor - Constipation Massage - cc Pelvic Floor - Bladder Health & Emptying Techniques - cc Pelvic Floor - Bowel Movement Education - cc Pelvic Floor - Winston Stool Chart - cc Pelvic Floor - Bowel Diary - cc Pelvic Floor Female Internal Pelvic Floor Self Massage - cc Pelvic Floor - Lubricants * Alka Sheppard, PT - 08/25/2024 11:52 AM EDT Episode Visit Count: 9 Therapist That Will Accept/Oversee The Plan Of Care: Alka Sheppard PT, DPT Start of Care Date: 03/31/24 Onset Date: 03/04/24 Plan of Care Certification Date: 06/28/24 Next Certification Due Date: 09/26/24 Patient Identified by Name and Date of : Yes REHABILITATION AND SPORTS THERAPY PHYSICAL THERAPY TREATMENT NOTE ASSESSMENT: Gisela Turner tolerated the session with no issues. She demonstrated improvements in exercise performance and slight improvement of symptoms with HEP and manual interventions. The patient will continue to benefit from ongoing skilled physical therapy to progress toward set goals. PLAN FOR NEXT VISIT: review self internal, monitor response SUBJECTIVE: Pt reports stool has been all mucous and blood. Has been feeling tender and crampy after pizza last night. Thinks that tomato is likely the irritant or related to irritation. Pelvic wand-yellow, brought to session. Pain: Pain Pain Level: 7 Pain Location: Abdomen Description: Cramping Post Treatment Pain Post Treatment Pain Level: Better OBJECTIVE MEASURES WITH LEVEL OF FUNCTION: Pelvic Floor Muscle Assessment Consent for pelvic assessment/testing and treatment: Patient was educated regarding pelvic floor physical therapy assessment/treatment which may include pelvic floor and girdle muscle assessment externally or internally (vaginal or rectal approach)., Patient verbalized consent for the above treatment approaches today. Patient understands they have control of the treatment and an opportunity to stop treatment at any time. Pelvic Floor Muscle Assessment: Muscle Dynamics Contracton Pressure: Moderate squeeze, felt all the way around finger surface Duration of Contraction: >3 seconds Recruitment of pelvic floor muscles: Coordinated Relaxation Postcontraction: Partial Paradoxical Contraction: No Involuntary Contraction: Yes Pelvic Floor Manual Assessment Pelvic Floor Tenderness/Hyperactivity: Tested Rectally in Tested Rectally in : Sidelying Pubococcygeus: Bilateral Puborectalis: Left TREATMENT: Manual Therapy: 1: reviewed wand use 2: assisted lengthening rectally with breathing, sidelying, 1 digit 3: internal rectal distraction, focus on puborectalis, deep breathing implemented to assist with relaxation 4: internal rectal coordination retraining 5: abdominal colonic mobilization Skilled Intervention: Manual skills to improve joint mobility, ROM, and decrease pain. Utilized anatomy knowledge of the therapist, and assessment of patient's response to intervention. Neuromuscular Re-Education: 2: side glides L hand on L hip Skilled Intervention: Reviewed and educated patient on additions/changes for home program as noted above with an (*). Provided written instruction for home program to facilitate proper performance and compliance. Correct performance of home program was facilitated with verbal, visual, and tactile cueing. Patient education as noted. Billing Manual TherapyTreatment Minutes: 25 Neuromuscular Re-Education Treatment Minutes: 17 Skilled Treatment Time Minutes (timed and untimed codes): 42 Total Session Time (minutes): 48 Session Start Time : 1152 Session Stop Time : 1240 Alka Sheppard PT [facility] NoteHNO ID: [id number] Author: ALKA SHEPPARD PT Service: ? Author Type: Physical Therapist Type: Progress Notes Filed: 08/25/2024 14:00 Note Text: Episode Visit Count: 9 Therapist That Will Accept/Oversee The Plan Of Care: Alka Sheppard PT, DPT Start of Care Date: 03/31/24 Onset Date: 03/04/24 Plan of Care Certification Date: 06/28/24 Next Certification Due Date: 09/26/24 Patient Identified by Name and Date of : Yes REHABILITATION AND SPORTS THERAPY PHYSICAL THERAPY TREATMENT NOTE ASSESSMENT: Gisela Turner tolerated the session with no issues. She demonstrated improvements in exercise performance and slight improvement of symptoms with HEP and manual interventions. The patient will continue to benefit from ongoing skilled physical therapy to progress toward set goals. PLAN FOR NEXT VISIT: review self internal, monitor response SUBJECTIVE: Pt reports stool has been all mucous and blood. Has been feeling tender and crampy after pizza last night. Thinks that tomato is likely the irritant or related to irritation. Pelvic wand- yellow, brought to session. Pain: Pain Pain Level: 7 Pain Location: Abdomen Description: Cramping Post Treatment Pain Post Treatment Pain Level: Better OBJECTIVE MEASURES WITH LEVEL OF FUNCTION: Pelvic Floor Muscle Assessment Consent for pelvic assessment/testing and treatment: Patient was educated regarding pelvic floor physical therapy assessment/treatment which may include pelvic floor and girdle muscle assessment externally or internally (vaginal or rectal approach)., Patient verbalized consent for the above treatment approaches today. Patient understands they have control of the treatment and an opportunity to stop treatment at any time. Pelvic Floor Muscle Assessment: Muscle Dynamics Contracton Pressure: Moderate squeeze, felt all the way around finger surface Duration of Contraction: >3 seconds Recruitment of pelvic floor muscles: Coordinated Relaxation Postcontraction: Partial Paradoxical Contraction: No Involuntary Contraction: Yes Pelvic Floor Manual Assessment Pelvic Floor Tenderness/Hyperactivity: Tested Rectally in Tested Rectally in : Sidelying Pubococcygeus: Bilateral Puborectalis: Left TREATMENT: Manual Therapy: 1: reviewed wand use 2: assisted lengthening rectally with breathing, sidelying, 1 digit 3: internal rectal distraction, focus on puborectalis, deep breathing implemented to assist with relaxation 4: internal rectal coordination retraining 5: abdominal colonic mobilization Skilled Intervention: Manual skills to improve joint mobility, ROM, and decrease pain. Utilized anatomy knowledge of the therapist, and assessment of patient's response to intervention. Neuromuscular Re-Education: 2: side glides L hand on L hip Skilled Intervention: Reviewed and educated patient on additions/changes for home program as noted above with an (*). Provided written instruction for home program to facilitate proper performance and compliance. Correct performance of home program was facilitated with verbal, visual, and tactile cueing. Patient education as noted. Billing Manual TherapyTreatment Minutes: 25 Neuromuscular Re-Education Treatment Minutes: 17 Skilled Treatment Time Minutes (timed and untimed codes): 42 Total Session Time (minutes): 48 Session Start Time : 1152 Session Stop Time : 1240 [facility] Attending History and physical note* Lizzy High MD - 08/17/2024 10:30 AM EDT UPDATED PROCEDURAL SEDATION HISTORY AND PHYSICAL EXAMINATION SERVICE DATE: 08/17/2024 SERVICE TIME: 9:26 PHYSICAL EXAM MUST BE COMPLETED ON ADMISSION PROCEDURE: colonoscopy with biopsies Procedure Indications: altered bowel habits The History and Physical (completed in the past 30 days) has been reviewed and the patient has beenexamined. The contents accurately reflect the patient's condition with the following additions or revisions since the H&P was completed. ASA Class: ASA Class: Patient with mild systemic disease Examination indicates no changes. AIRWAY: Airway Visualization of Uvula: Yes Mouth opening greater than 2 fingerbreadths: Yes Neck Full Range of Motion: Yes LUNGS: Lungs clear to auscultation CARDIAC: Regular rhythm,Regular rate Provisional Diagnosis/Treatment Plan: colonosopy, possible biopsies Sedation Goal: Moderate This H&P can be found in the Electronic Medical Record. SIGNATURE: Lizzy High MD PATIENT NAME: Gisela Turner DATE: August 17, 2024 TIME: 9:26 AM Source Note - Lizzy High MD - 08/17/2024 10:30 AM EDT Gisela Turner is a 54 year old female with a history of constipation that I have been following. She has been following with PFPT. Her PT reached out to me in regards to blood in her stool. I recommended an in person evaluation. Onset: -About a month -On FODMAP diet, went back to normal foods -But then went back to crampy, diarrhea, blood Lumps/lesions near the anus: no Tissue/hemorrhoid prolapsing from anus: no Rectal pain: no Rectal bleeding: - sometimes bright red, sometimes dark - every bowel movement Attempted txs: Sitz baths: no HC: no OTC: prep H BMs: Frequency: daily of some sort, sometimes several times Consistency: sometimes loose, sometimes hard Laxatives/bowel regimen: no Straining during BMs: sometimes Abdomen: -Feels like things get stuck in LLQ -Crampy like a menstral cycle N/V/F/C: once in a while will get nauseated Overall getting better/worse/staying the same: - bleeding: a teeny bit better - constipation/bowel movements: more gas lately , runny lately with blood Updates since last visit ( new scopes, surgeries, deliveries, etc.): - going to PFPT - didn't feel like she was making progress Internal exam helps the most Physical Exam: Vitals 08/09/24 1457 Weight: 58.1 kg (128 lb) Height: 160 cm (5' 3) General - awake, alert, no acute distress Anorectal: Perianal skin is intact. No erythema, induration or excoriation. No fissure, fistula or external hemorrhoids. Digital Rectal Exam: Anus: closed Resting tone: HIGH Squeeze tone: WEAK Valsalva: poor relaxation Impression: altered bowel habits Discussion/Plan/Recommendations: I have discussed the above with the patient. I have offered colonoscopy, possible biopsies I have explained the procedure to the patient. I have counseled the patient as to the risks of the procedure, including but not limited to: infection, bleeding, injury to any intrabdominal organs such as liver/spleen, perforation of the GI tract,inability to complete the procedure, complications of anesthesia, etc. - the patient understands. The patient wishes to proceed. I have answered all questions to the patient s satisfaction and the patient has no further questions. . [facility]10[facility] History and physical note* Lizzy High MD - 08/17/2024 10:30 AM EDT Gisela Turner is a 54 year old female with a history of constipation that I have been following. She has been following with PFPT. Her PT reached out to me in regards to blood in her stool. I recommended an in person evaluation. Onset: -About a month -On FODMAP diet, went back to normal foods -But then went back to crampy, diarrhea, blood Lumps/lesions near the anus: no Tissue/hemorrhoid prolapsing from anus: no Rectal pain: no Rectal bleeding: - sometimes bright red, sometimes dark - every bowel movement Attempted txs: Sitz baths: no HC: no OTC: prep H BMs: Frequency: daily of some sort, sometimes several times Consistency: sometimes loose, sometimes hard Laxatives/bowel regimen: no Straining during BMs: sometimes Abdomen: -Feels like things get stuck in LLQ -Crampy like a menstral cycle N/V/F/C: once in a while will get nauseated Overall getting better/worse/staying the same: - bleeding: a teeny bit better - constipation/bowel movements: more gas lately , runny lately with blood Updates since last visit ( new scopes, surgeries, deliveries, etc.): - going to PFPT - didn't feel like she was making progress Internal exam helps the most Physical Exam: Vitals 08/09/24 1457 Weight: 58.1 kg (128 lb) Height: 160 cm (5' 3) General - awake, alert, no acute distress Anorectal: Perianal skin is intact. No erythema, induration or excoriation. No fissure, fistula or external hemorrhoids. Digital Rectal Exam: Anus: closed Resting tone: HIGH Squeeze tone: WEAK Valsalva: poor relaxation Impression: altered bowel habits Discussion/Plan/Recommendations: I have discussed the above with the patient. I have offered colonoscopy, possible biopsies I have explained the procedure to the patient. I have counseled the patient as to the risks of the procedure, including but not limited to: infection, bleeding, injury to any intrabdominal organs such as liver/spleen, perforation of the GI tract,inability to complete the procedure, complications of anesthesia, etc. - the patient understands. The patient wishes to proceed. I have answered all questions to the patient s satisfaction and the patient has no further questions. . [facility] History and physical note* Lizzy High MD - 08/17/2024 10:30 AM EDT UPDATED PROCEDURAL SEDATION HISTORY AND PHYSICAL EXAMINATION SERVICE DATE: 08/17/2024 SERVICE TIME: 9:26 PHYSICAL EXAM MUST BE COMPLETED ON ADMISSION PROCEDURE: colonoscopy with biopsies Procedure Indications: altered bowel habits The History and Physical (completed in the past 30 days) has been reviewed and the patient has beenexamined. The contents accurately reflect the patient's condition with the following additions or revisions since the H&P was completed. ASA Class: ASA Class: Patient with mild systemic disease Examination indicates no changes. AIRWAY: Airway Visualization of Uvula: Yes Mouth opening greater than 2 fingerbreadths: Yes Neck Full Range of Motion: Yes LUNGS: Lungs clear to auscultation CARDIAC: Regular rhythm,Regular rate Provisional Diagnosis/Treatment Plan: colonosopy, possible biopsies Sedation Goal: Moderate This H&P can be found in the Electronic Medical Record. SIGNATURE: Lizzy High MD PATIENT NAME: Gisela Turner DATE: August 17, 2024 TIME: 9:26 AM Source Note - Lizzy High MD - 08/17/2024 10:30 AM EDT Gisela Turner is a 54 year old female with a history of constipation that I have been following. She has been following with PFPT. Her PT reached out to me in regards to blood in her stool. I recommended an in person evaluation. Onset: -About a month -On FODMAP diet, went back to normal foods -But then went back to crampy, diarrhea, blood Lumps/lesions near the anus: no Tissue/hemorrhoid prolapsing from anus: no Rectal pain: no Rectal bleeding: - sometimes bright red, sometimes dark - every bowel movement Attempted txs: Sitz baths: no HC: no OTC: prep H BMs: Frequency: daily of some sort, sometimes several times Consistency: sometimes loose, sometimes hard Laxatives/bowel regimen: no Straining during BMs: sometimes Abdomen: -Feels like things get stuck in LLQ -Crampy like a menstral cycle N/V/F/C: once in a while will get nauseated Overall getting better/worse/staying the same: - bleeding: a teeny bit better - constipation/bowel movements: more gas lately , runny lately with blood Updates since last visit ( new scopes, surgeries, deliveries, etc.): - going to PFPT - didn't feel like she was making progress Internal exam helps the most Physical Exam: Vitals 08/09/24 1457 Weight: 58.1 kg (128 lb) Height: 160 cm (5' 3) General - awake, alert, no acute distress Anorectal: Perianal skin is intact. No erythema, induration or excoriation. No fissure, fistula or external hemorrhoids. Digital Rectal Exam: Anus: closed Resting tone: HIGH Squeeze tone: WEAK Valsalva: poor relaxation Impression: altered bowel habits Discussion/Plan/Recommendations: I have discussed the above with the patient. I have offered colonoscopy, possible biopsies I have explained the procedure to the patient. I have counseled the patient as to the risks of the procedure, including but not limited to: infection, bleeding, injury to any intrabdominal organs such as liver/spleen, perforation of the GI tract,inability to complete the procedure, complications of anesthesia, etc. - the patient understands. The patient wishes to proceed. I have answered all questions to the patient s satisfaction and the patient has no further questions. . * Lizzy High MD - 08/17/2024 10:30 AM EDT Gisela Turner is a 54 year old female with a history of constipation that I have been following. She has been following with PFPT. Her PT reached out to me in regards to blood in her stool. I recommended an in person evaluation. Onset: -About a month -On FODMAP diet, went back to normal foods -But then went back to crampy, diarrhea, blood Lumps/lesions near the anus: no Tissue/hemorrhoid prolapsing from anus: no Rectal pain: no Rectal bleeding: - sometimes bright red, sometimes dark - every bowel movement Attempted txs: Sitz baths: no HC: no OTC: prep H BMs: Frequency: daily of some sort, sometimes several times Consistency: sometimes loose, sometimes hard Laxatives/bowel regimen: no Straining during BMs: sometimes Abdomen: -Feels like things get stuck in LLQ -Crampy like a menstral cycle N/V/F/C: once in a while will get nauseated Overall getting better/worse/staying the same: - bleeding: a teeny bit better - constipation/bowel movements: more gas lately , runny lately with blood Updates since last visit ( new scopes, surgeries, deliveries, etc.): - going to PFPT - didn't feel like she was making progress Internal exam helps the most Physical Exam: Vitals 08/09/24 1457 Weight: 58.1 kg (128 lb) Height: 160 cm (5' 3) General - awake, alert, no acute distress Anorectal: Perianal skin is intact. No erythema, induration or excoriation. No fissure, fistula or external hemorrhoids. Digital Rectal Exam: Anus: closed Resting tone: HIGH Squeeze tone: WEAK Valsalva: poor relaxation Impression: altered bowel habits Discussion/Plan/Recommendations: I have discussed the above with the patient. I have offered colonoscopy, possible biopsies I have explained the procedure to the patient. I have counseled the patient as to the risks of the procedure, including but not limited to: infection, bleeding, injury to any intrabdominal organs such as liver/spleen, perforation of the GI tract,inability to complete the procedure, complications of anesthesia, etc. - the patient understands. The patient wishes to proceed. I have answered all questions to the patient s satisfaction and the patient has no further questions. . [facility] Nurse Note* Marc Bashir RN - 08/17/2024 10:20 AM EDT pt arrived to phase 2 resting on left side. SR up x 2, call light in reach. Marc Bashir RN [facility]10-[facility] Nurse Note* Marc Bashir RN - 08/17/2024 10:20 AM EDT pt arrived to phase 2 resting on left side. SR up x 2, call light in reach. Marc Bashir RN documented in this encounterC[facility] Note* Discharge Instr - Nursing - Marc Bashir RN - 08/17/2024 10:18 AM EDT The patient received a copy of Colonoscopy discharge instructions that contain information for how to contact the physician who performed the procedure and when to seek medical care. [facility]10-01-2024 Miscellaneous Notes* Discharge Instr - Nursing - Marc Bashir RN - 08/17/2024 10:18 AM EDT The patient received a copy of Colonoscopy discharge instructions that contain information for how to contact the physician who performed the procedure and when to seek medical care. documented in this encounterC[facility]24 NoteHNO ID: [id number] Author: KATHIE FERREIRA MD Service: ? Author Type: Physician Type: Progress Notes Filed: 08/11/2024 14:52 Note Text: 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 Gisela is a 54 year old who presents for an annual gynecologic exam with complaints, vaginal dryness. Using estrace cream vaginally and estrace oral and doing well but last few weeks some burning, even at night.More internal. Postmenopausal: yes HRT use: yes. 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 As applicable, any other physician, advance practice provider, medical student, or other health professional student that will be observing or involved in the sensitive examination for educational or training purposes was discussed with the Patient or Authorized Enterprise Resource Planner. The Patient or Authorized Enterprise Resource Planner has agreed to proceed with the sensitive examination. (Sensitive examination includes inspection and/or palpation of the breasts, pelvis, prostate and anorectal regions). EXAM: LMP 09/13/2013 GENERAL: pleasant, female in no apparent distress [...] external genitalia normal, normal Bartholin's glands, urethra, [place]'s glands, no vulvar lesions, good vaginal support, physiologic discharge present, normal appearing perineal body and perianal region, cervix surgically absent, discharge white c/w vaginal esttogen, no erythema, no malorodr BIMANUAL: no adnexal masses, non-tender, and uterus surgically absent RECTOVAGINAL: deferred. NEURO: alert and oriented x3,exam grossly non-focal EXTREMITIES: normal ASSESSMENT/PLAN: 1) Health maintenance: Pap/HPV screening no longer needed Mammogram ordered cont. estrogen trial of metrogel for vaginal burning, can't do testing b/c of yeast medication 2) [facility] one [facility] or [facility] of Present illness Narrative* Kathie Ferreira MD - 08/11/2024 2:20 PM EDT 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 Gisela is a 54 year old who presents for an annual gynecologic exam with complaints, vaginal dryness. Using estrace cream vaginally and estrace oral and doing well but last few weeks some burning, even at night.More internal. Postmenopausal: yes HRT use: yes. 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 As applicable, any other physician, advance practice provider, medical student, or other health professional student that will be observing or involved in the sensitive examination for educational or training purposes was discussed with the Patient or Authorized Enterprise Resource Planner. The Patient or Authorized Enterprise Resource Planner has agreed to proceed with the sensitive examination. (Sensitive examination includes inspection and/or palpation of the breasts, pelvis, prostate and anorectal regions). EXAM: LMP 09/13/2013 GENERAL: pleasant, female in no apparent distress [...] external genitalia normal, normal Bartholin's glands, urethra, [place]'s glands, no vulvar lesions, good vaginal support, physiologic discharge present, normal appearing perineal body and perianal region, cervix surgically absent, discharge white c/w vaginal esttogen, no erythema, no malorodr BIMANUAL: no adnexal masses, non-tender, and uterus surgically absent RECTOVAGINAL: deferred. NEURO: alert and oriented x3,exam grossly non-focal EXTREMITIES: normal ASSESSMENT/PLAN: 1) Health maintenance: Pap/HPV screening no longer needed Mammogram ordered cont. estrogen trial of metrogel for vaginal burning, can't do testing b/c of yeast medication 2) Follow up one year or sooner as needed [facility] of Present illness Narrative* Alka Sheppard, PT - 08/11/2024 12:25 PM EDT Program_ID:[id number] Access Code: [email or web address] URL: [email or web address] Date: 08-11-2024 Prepared By: Alka Sheppard Program Notes Exercises - Supine Diaphragmatic Breathing with Pelvic Floor Lengthening - 2 x daily - 7 x weekly - sets - 10 reps - Diaphragmatic Breathing in Child's Pose with Pelvic Floor Relaxation - 1-2 x daily - 7 x weekly - 2 sets - reps - Supine Lower Trunk Rotation - 1-2 x daily - 7 x weekly - sets - 10 reps - Hip Flexor Stretch on Step - 1-2 x daily - 7 x weekly - 3 sets - reps - Static Prone on Elbows - 1-2 x daily - 7 x weekly - 3 sets - reps - Cat Cow to Child's Pose - 1 x daily - 7 x weekly - 3 sets - 10 reps - Seated Hamstring Stretch - 2 x daily - 7 x weekly - 3 sets - reps - Right Standing Lateral Shift Correction at Wall - Hold - 2 x daily - 7 x weekly - sets - 10 reps Patient Education - Get To Know Your Pelvic Floor- Female - cc Pelvic Floor - Constipation Massage - cc Pelvic Floor - Bladder Health & Emptying Techniques - cc Pelvic Floor - Bowel Movement Education - cc Pelvic Floor - Winston Stool Chart - cc Pelvic Floor - Bowel Diary * Alka Sheppard, PT - 08/11/2024 11:54 AM EDT Episode Visit Count: 8 Therapist That Will Accept/Oversee The Plan Of Care: Alka Sheppard, PT, DPT Start of Care Date: 03/31/24 Onset Date: 03/04/24 Plan of Care Certification Date: 06/28/24 Next Certification Due Date: 09/26/24 Patient Identified by Name and Date of : Yes REHABILITATION AND SPORTS THERAPY PHYSICAL THERAPY TREATMENT NOTE ASSESSMENT: Gisela Turner tolerated the session with decreased symptoms. She demonstrated improvements in PFM mobility with manual interventions. The patient will continue to benefit from ongoing skilled physical therapy to progress toward set goals. PLAN FOR NEXT VISIT: internal/external manual, stretching, colonic mobilization. SUBJECTIVE: Pt reports still crampy L side. Pain: Pain Pain Level: 4 Pain Location: Abdomen Description: Cramping OBJECTIVE MEASURES WITH LEVEL OF FUNCTION: Pelvic Floor Muscle Assessment Consent for pelvic assessment/testing and treatment: Patient was educated regarding pelvic floor physical therapy assessment/treatment which may include pelvic floor and girdle muscle assessment externally or internally (vaginal or rectal approach)., Patient verbalized consent for the above treatment approaches today. Patient understands they have control of the treatment and an opportunity to stop treatment at any time. Pelvic Floor Muscle Assessment: Muscle Dynamics Contracton Pressure: Moderate squeeze, felt all the way around finger surface Duration of Contraction: >3 seconds Recruitment of pelvic floor muscles: Coordinated Relaxation Postcontraction: Partial Pelvic Floor Manual Assessment Pelvic Floor Tenderness/Hyperactivity: Tested Rectally in Tested Rectally in : Sidelying Iliococcygeus: Left Puborectalis: Left TREATMENT: Manual Therapy: 1: *self internal 2: assisted lengthening rectally with breathing, sidelying, 1 digit 3: internal rectal distraction, focus on puborectalis, deep breathing implemented to assist with relaxation 4: internal rectal coordination retraining Skilled Intervention: Manual skills to improve joint mobility, ROM, and decrease pain. Utilized anatomy knowledge of the therapist, and assessment of patient's response to intervention. Neuromuscular Re-Education: 1: internal rectal coordination retraining 2: *side glides L hand on L hip Skilled Intervention: Reviewed and educated patient on additions/changes for home program as noted above with an (*). Correct performance of home program was facilitated with verbal, visual, and tactile cueing. Patient education as noted. Billing Manual TherapyTreatment Minutes: 20 Neuromuscular Re-Education Treatment Minutes: 16 Skilled Treatment Time Minutes (timed and untimed codes): 36 Total Session Time (minutes): 36 Session Start Time : 1155 Session Stop Time : 1231 Alka Sheppard PT documented in this encounterC[facility] NoteHNO ID: [id number] Author: ALKA SHEPPARD PT Service: ? Author Type: Physical Therapist Type: Progress Notes Filed: 08/11/2024 16:26 Note Text: Episode Visit Count: 8 Therapist That Will Accept/Oversee The Plan Of Care: Alka Sheppard PT, DPT Start of Care Date: 03/31/24 Onset Date: 03/04/24 Plan of Care Certification Date: 06/28/24 Next Certification Due Date: 09/26/24 Patient Identified by Name and Date of : Yes REHABILITATION AND SPORTS THERAPY PHYSICAL THERAPY TREATMENT NOTE ASSESSMENT: Gisela Turner tolerated the session with decreased symptoms. She demonstrated improvements in PFM mobility with manual interventions. The patient will continue to benefit from ongoing skilled physical therapy to progress toward set goals. PLAN FOR NEXT VISIT: internal/external manual, stretching, colonic mobilization. SUBJECTIVE: Pt reports still crampy L side. Pain: Pain Pain Level: 4 Pain Location: Abdomen Description: Cramping OBJECTIVE MEASURES WITH LEVEL OF FUNCTION: Pelvic Floor Muscle Assessment Consent for pelvic assessment/testing and treatment: Patient was educated regarding pelvic floor physical therapy assessment/treatment which may include pelvic floor and girdle muscle assessment externally or internally (vaginal or rectal approach)., Patient verbalized consent for the above treatment approaches today. Patient understands they have control of the treatment and an opportunity to stop treatment at any time. Pelvic Floor Muscle Assessment: Muscle Dynamics Contracton Pressure: Moderate squeeze, felt all the way around finger surface Duration of Contraction: >3 seconds Recruitment of pelvic floor muscles: Coordinated Relaxation Postcontraction: Partial Pelvic Floor Manual Assessment Pelvic Floor Tenderness/Hyperactivity: Tested Rectally in Tested Rectally in : Sidelying Iliococcygeus: Left Puborectalis: Left TREATMENT: Manual Therapy: 1: *self internal 2: assisted lengthening rectally with breathing, sidelying, 1 digit 3: internal rectal distraction, focus on puborectalis, deep breathing implemented to assist with relaxation 4: internal rectal coordination retraining Skilled Intervention: Manual skills to improve joint mobility, ROM, and decrease pain. Utilized anatomy knowledge of the therapist, and assessment of patient's response to intervention. Neuromuscular Re-Education: 1: internal rectal coordination retraining 2: *side glides L hand on L hip Skilled Intervention: Reviewed and educated patient on additions/changes for home program as noted above with an (*). Correct performance of home program was facilitated with verbal, visual, and tactile cueing. Patient education as noted. Billing Manual TherapyTreatment Minutes: 20 Neuromuscular Re-Education Treatment Minutes: 16 Skilled Treatment Time Minutes (timed and untimed codes): 36 Total Session Time (minutes): 36 Session Start Time : 1155 Session Stop Time : 1231 [facility]* Patient Instructions* Rosie Galloway PA-C - 08/09/2024 3:28 PM EDT - I noticed inflammation in your anal canal today, this could be due to for a variety of reasons - We will get some lab work and stool tests today - warms baths daily - I will reach out to Dr. Ferreira for her thoughts on things - hydrocortisone suppositories twice daily documented in this encounterC[facility] History of Present illness Narrative* Rosie Galloway PA-C - 08/09/2024 3:00 PM EDT COLORECTAL SURGERY Follow-up Chief complaint: blood in stool HPI: Gisela Turner is a 54 year old female with a history of constipation that I have been following. She has been following with PFPT. Her PT reached out to me in regards to blood in her stool. I recommended an in person evaluation. Onset: -About a month -On FODMAP diet, went back to normal foods -But then went back to crampy, diarrhea, blood Lumps/lesions near the anus: no Tissue/hemorrhoid prolapsing from anus: no Rectal pain: no Rectal bleeding: - sometimes bright red, sometimes dark - every bowel movement Attempted txs: Sitz baths: no HC: no OTC: prep H BMs: Frequency: daily of some sort, sometimes several times Consistency: sometimes loose, sometimes hard Laxatives/bowel regimen: no Straining during BMs: sometimes Abdomen: -Feels like things get stuck in LLQ -Crampy like a menstral cycle N/V/F/C: once in a while will get nauseated Overall getting better/worse/staying the same: - bleeding: a teeny bit better - constipation/bowel movements: more gas lately , runny lately with blood Updates since last visit ( new scopes, surgeries, deliveries, etc.): - going to PFPT - didn't feel like she was making progress Internal exam helps the most Physical Exam: 08/09/24 1457 Weight: 58.1 kg (128 lb) Height: 160 cm (5' 3) General - awake, alert, no acute distress Anorectal: Perianal skin is intact. No erythema, induration or excoriation. No fissure, fistula or external hemorrhoids. Digital Rectal Exam: Anus: closed Resting tone: HIGH Squeeze tone: WEAK Valsalva: poor relaxation Anoscopy: The patient was placed in left lateral position. After digital exam with a lubricated finger, the scope was easily inserted. Mildly inflamed internal hemorrhoids noted. Mainly circumferentially inflamed anal mucosa. Anoscopy completed. Ships Equipment Engineer present: Yes, Jodi Zarate The sensitive examination was discussed with the Patient or Patient's Authorized Enterprise Resource Planner. Asapplicable, any other physician, advance practice provider, medical student, or other health professional student that will be observing or involved in the sensitive examination for educational or training purposes was discussed with the Patient or Authorized Enterprise Resource Planner. The Patient or Authorized Enterprise Resource Planner has agreed to proceed with the sensitive examination. (Sensitive examination includes inspection and/or palpation of the breasts, pelvis, prostate and anorectal regions) Assessment Medical Decision Making: Assessment & Diagnosis: Gisela Turner is a patient I have been following for constipation. She has been in PFPT. She recently introduced all foods back after being on a low FODMAP diet. Since then she has been having diarrhea and rectal bleeding. On exam her hemorrhoids are not too impressive. She does however have a fairly inflamed anal canal. We discussed this could be for many reasons like inflammatory bowel disease, diarrhea, straining, etc. We will get some lab work done. We also will try some hydrocortisone to see if it helps. Lastly, I will reach out to Dr. Ferreira to see her thoughts on things. Data Reviewed: Tests & Documents Reviewed/ordered: Review of prior notes from [facility], GI, PT Review of Procedures / Tests: Colonoscopy I have independently interpreted: none I have discussed Gisela Turner 's treatment plan and/or results with patient. Treatment plan: - CBC, iron and TIBC, CRP, fecal michael, c diff - HC suppositories BID - sitz baths - will reach out to Dr. Ferreira to see her thoughts on plan - contact with questions/concerns Rosie Galloway PA-C I spent a total of 35 minutes on the date of the service which included preparing to see the patient, [id number] patient care, completing clinical documentation, obtaining and/or reviewing separately obtained history, performing a medically appropriate examination, counseling and educating the pat ient/family/caregiver, ordering medications, tests, or procedures, and communicating with other HCPs (not separately reported). Risk of morbidity, mortality and/or complications of treatment plan: moderate documented in this encounterC[facility]24 NoteHNO ID: [id number] Author: ROSIE GALLOWAY PA-C Service: ? Author Type: Physician Instrument Mechanic Type: Progress Notes Filed: 08/09/2024 16:09 Note Text: COLORECTAL SURGERY Follow-up Chief complaint: blood in stool HPI: Gisela Turner is a 54 year old female with a history of constipation that I have been following. She has been following with PFPT. Her PT reached out to me in regards to blood in her stool. I recommended an in person evaluation. Onset: -About a month -On FODMAP diet, went back to normal foods -But then went back to crampy, diarrhea, blood Lumps/lesions near the anus: no Tissue/hemorrhoid prolapsing from anus: no Rectal pain: no Rectal bleeding: - sometimes bright red, sometimes dark - every bowel movement Attempted txs: Sitz baths: no HC: no OTC: prep H BMs: Frequency: daily of some sort, sometimes several times Consistency: sometimes loose, sometimes hard Laxatives/bowel regimen: no Straining during BMs: sometimes Abdomen: -Feels like things get stuck in LLQ -Crampy like a menstral cycle N/V/F/C: once in a while will get nauseated Overall getting better/worse/staying the same: - bleeding: a teeny bit better - constipation/bowel movements: more gas lately , runny lately with blood Updates since last visit ( new scopes, surgeries, deliveries, etc.): - going to PFPT - didn't feel like she was making progress Internal exam helps the most Physical Exam: 08/09/24 1457 Weight: 58.1 kg (128 lb) Height: 160 cm (5' 3) General - awake, alert, no acute distress Anorectal: Perianal skin is intact. No erythema, induration or excoriation. No fissure, fistula or external hemorrhoids. Digital Rectal Exam: Anus: closed Resting tone: HIGH Squeeze tone: WEAK Valsalva: poor relaxation Anoscopy: The patient was placed in left lateral position. After digital exam with a lubricated finger, the scope was easily inserted. Mildly inflamed internal hemorrhoids noted. Mainly circumferentially inflamed anal mucosa. Anoscopy completed. Ships Equipment Engineer present: Yes, Jodi Zarate The sensitive examination was discussed with the Patient or Patient's Authorized Enterprise Resource Planner. As applicable, any other physician, advance practice provider, medical student, or other health professional student that will be observing or involved in the sensitive examination for educational or training purposes was discussed with the Patient or Authorized Enterprise Resource Planner. The Patient or Authorized Enterprise Resource Planner has agreed to proceed with the sensitive examination. (Sensitive examination includes inspection and/or palpation of the breasts, pelvis, prostate and anorectal regions) Assessment Medical Decision Making: Assessment AND Diagnosis: Gisela Turner is a patient I have been following for constipation. She has been in PFPT. She recently introduced all foods back after being on a low FODMAP diet. Since then she has been having diarrhea and rectal bleeding. On exam her hemorrhoids are not too impressive. She does however have a fairly inflamed anal canal. We discussed this could be for many reasons like inflammatory bowel disease, diarrhea, straining, etc. We will get some lab work done. We also will try some hydrocortisone to see if it helps. Lastly, I will reach out to Dr. Ferreira to see her thoughts on things. Data Reviewed: Tests AND Documents Reviewed/ordered: Review of prior notes from [facility], [facility], PT Review of Procedures / Tests: Colonoscopy I have independently interpreted: none I have discussed Gisela Turner 's treatment plan and/or results with patient. Treatment plan: - CBC, iron and TIBC, CRP, fecal michael, c diff - HC suppositories BID - sitz baths - will reach out to Dr. Ferreira to see her thoughts on plan - contact with questions/concerns Rosie Galloway PA-C I spent a total of 35 minutes on the date of the service which included preparing to see the patient, [id number] patient care, completing clinical documentation, obtaining and/or reviewing separately obtained history, performing a medically appropriate examination, counseling and educating the patient/family/caregiver, ordering medications, tests, or procedures, and communicating with other HCPs (not separately reported). Risk of morbidity, mortality and/or complications of treatment plan: moderate [facility]09-11-2024 History of Present illness Narrative* Alka Sheppard, PT - 07/28/2024 12:25 PM EDT Program_ID:[id number] Access Code: [email or web address] URL: [email or web address] Date: 07-28-2024 Prepared By: Alka Sheppard Program Notes Exercises - Supine Diaphragmatic Breathing with Pelvic Floor Lengthening - 2 x daily - 7 x weekly - sets - 10 reps - Diaphragmatic Breathing in Child's Pose with Pelvic Floor Relaxation - 1-2 x daily - 7 x weekly - 2 sets - reps - Supine Lower Trunk Rotation - 1-2 x daily - 7 x weekly - sets - 10 reps - Hip Flexor Stretch on Step - 1-2 x daily - 7 x weekly - 3 sets - reps - Static Prone on Elbows - 1-2 x daily - 7 x weekly - 3 sets - reps - Cat Cow to Child's Pose - 1 x daily - 7 x weekly - 3 sets - 10 reps - Seated Hamstring Stretch - 2 x daily - 7 x weekly - 3 sets - reps Patient Education - Get To Know Your Pelvic Floor- Female - cc Pelvic Floor - Constipation Massage - cc Pelvic Floor - Bladder Health & Emptying Techniques - cc Pelvic Floor - Bowel Movement Education - cc Pelvic Floor - Winston Stool Chart - cc Pelvic Floor - Bowel Diary * Alka Sheppard, PT - 07/28/2024 11:57 AM EDT Episode Visit Count: 7 Therapist That Will Accept/Oversee The Plan Of Care: Alka Sheppard PT, DPT Start of Care Date: 03/31/24 Onset Date: 03/04/24 Plan of Care Certification Date: 06/28/24 Next Certification Due Date: 09/26/24 Patient Identified by Name and Date of : Yes REHABILITATION AND SPORTS THERAPY PHYSICAL THERAPY PROGRESS REPORT PLAN OF CARE UPDATE: Assessment: Gisela Turner demonstrates minimal improvement in physical activities, recreational activities, and compromised bowel function. She has progressed toward goals. Patient continues to present with impairments in flexibility, independence in exercise, posture, stress management, and symptom management that interfere with bladder function, bowel function, physical activities, recreational activities. Current prognosis is Good due to: current objective clinical presentation, good overall health status, good support system/ coping skills . She will benefit from continued skilled therapy services to meet the updated goals for this plan of care as noted below. Goals for Episode of Care: created on 03/31/24 through 06/29/24, updated on 06/07/2024, 06/28/2024, 07/28/2024 Patient demonstrates independence and compliance with home exercise program.- ONGOING Patient displays improved range of motion, coordination, and muscle dynamics of pelvic floor as evidenced by the ability to lengthen without paradoxical contraction at least 75% of the time to normalize bladder/bowel function; reduce pelvic pain.-PROGRESSING Patient to correctly isolate pelvic floor muscles without compensatory patterns of breath holding and gluteal use to improve bladder/bowel control.-MOSTLY MET Patient reports having >4 bowel movements per week without use of enema, suppositories, and reduced need for supplementation to demonstrate improved bowel function.-PROGRESSING Patient reports increased water intake to >50 ounces/day to promote bladder and bowel health.-PROGRESSING Patient demonstrates ability to perform diaphragmatic breathing and relaxation practice independently to allow for decreased muscle tightness, decreased pain, and improved bladder/bowel function. -PROGRESSING, 75% PROGRESS Patient Goals: improve evacuation and defecation Time Frame for Goals and Treatment : 09/26/24 Planned Interventions, Frequency, and Duration: 1x every other week, 10 weeks Total Number of Visits Planned: 6 Patient to be seen for Therapeutic exercise (88417), Neuromuscular re-education (49900), Manual therapy (77549), Therapeutic activities (84420), Self-half-way management (23003), Patient/Family/Caregiver Education, Body Mechanics Training PLAN FOR NEXT VISIT: internal/external manual, stretching, colonic mobilization. SUBJECTIVE: Pt reports gassy and some liquid stool, multiple times/day. Very crampy, tearful on arrival to session. On another elimination diet, working with dance teacher.. Functional Limitations: bladder function, bowel function, physical activities, recreational activities Pain: Pain Pain Level: 8 Pain Location: Abdomen Description: Cramping Frequency: Continuous Post Treatment Pain Post Treatment Pain Level: Better PROMIS Scales 07/14/2024 06/06/2024 03/30/2024 Higher is Better Phys Func - Score 57 (within normal limits) 56 (within normal limits) 56 (within normal limits) Phys Func - Percentile 76 73 73 Self-Eff Symptom - Score 41 (Average) 45 (Average) 57 (Average) Self-Eff Symptom - Percentile 18 31 76 T-scores: mean of general population = 50. 5 points is clinically meaningfully difference Percentiles provide an indication of how the patient's score ranks in relation to the general population. Higher percentile rankings indicate better function/quality of life. 50th percentile is the average of the general population and indicates half of respondents had a worse score. OBJECTIVE MEASURES WITH LEVEL OF FUNCTION: Pelvic Floor Bowel Movement Frequency: multiple times/day, very little productivity of BM, mostly gas Bowel Movement Consistency ([place]) : 6: Fluffy pieces with ragged edges, a mushy stool, 7: Watery, no solid pieces Bloating / abdominal pain: Yes Pelvic Floor Muscle Assessment Consent for pelvic assessment/testing and treatment: Patient was educated regarding pelvic floor physical therapy assessment/treatment which may include pelvic floor and girdle muscle assessment externally or internally (vaginal or rectal approach)., Patient verbalized consent for the above treatment approaches today. Patient understands they have control of the treatment and an opportunity to stop treatment at any time. Pelvic Floor Muscle Assessment: Muscle Dynamics Power: 3 Contracton Pressure: Moderate squeeze, felt all the way around finger surface Duration of Contraction: >3 seconds Recruitment of pelvic floor muscles: Coordinated Ability to Lengthen pelvic floor: Difficulty at first, but improves with cueing and practice Relaxation Postcontraction: Partial, Delayed Diaphragmatic Breathing : Fair Pelvic Floor Manual Assessment Pelvic Floor Tenderness/Hyperactivity: Tested Rectally in Tested Rectally in : Sidelying Iliococcygeus: Left Coccygeus: Bilateral Puborectalis: Left LE Flexibility Flexibility: Hip Internal Rotation Flexibility, Hip Flexor Flexibility R Hamstring Flexibility: min-mod restriction L Hamstring Flexibility: min-mod restriction R Hip Flexor Flexibility: min restriction L Hip Flexor Flexibility: mod restriction R Hip Internal Rotation Flexibility: mod restriction L Hip Internal Rotation Flexibility: major restriction TREATMENT: Manual Therapy: 1: colonic mobilization in supine 2: assisted lengthening rectally with breathing, sidelying, 1 digit 3: internal rectal distraction, focus on puborectalis, deep breathing implemented to assist with relaxation Skilled Intervention: Manual skills to improve joint mobility, ROM, and decrease pain. Utilized anatomy knowledge of the therapist, and assessment of patient's response to intervention. Neuromuscular Re-Education: 1: progress note 2: internal reassessment of PFM rectally 3: *seated hamstring stretch 30 x 3 each daily Skilled Intervention: Reviewed and educated patient on additions/changes for home program as noted above with an (*). Provided written instruction for home program to facilitate proper performance and compliance. Correct performance of home program was facilitated with verbal, visual, and tactile cueing. Patient education as noted. Billing Manual TherapyTreatment Minutes: 15 Neuromuscular Re-Education Treatment Minutes: 23 Skilled Treatment Time Minutes (timed and untimed codes): 38 Total Session Time (minutes): 38 Session Start Time : 1155 Session Stop Time : 1233 Alka Sheppard PT documented [facility] NoteHNO ID: [id number] Author: ALKA SHEPPARD PT Service: ? Author Type: Physical Therapist Type: Progress Notes Filed: 07/28/2024 13:48 Note Text: Episode Visit Count: 7 Therapist That Will Accept/Oversee The Plan Of Care: Alka Sheppard PT, DPT Start of Care Date: 03/31/24 Onset Date: 03/04/24 Plan of Care Certification Date: 06/28/24 Next Certification Due Date: 09/26/24 Patient Identified by Name and Date of : Yes REHABILITATION AND SPORTS THERAPY PHYSICAL THERAPY PROGRESS REPORT PLAN OF CARE UPDATE: Assessment: Gisela Turner demonstrates minimal improvement in physical activities, recreational activities, and compromised bowel function. She has progressed toward goals. Patient continues to present with impairments in flexibility, independence in exercise, posture, stress management, and symptom management that interfere with bladder function, bowel function, physical activities, recreational activities . Current prognosis is Good due to: current objective clinical presentation, good overall health status, good support system/ coping skills . She will benefit from continued skilled therapy services to meet the updated goals for this plan of care as noted below. Goals for Episode of Care: created on 03/31/24 through 06/29/24, updated on 06/07/2024, 06/28/2024, 07/28/2024 Patient demonstrates independence and compliance with home exercise program.- ONGOING Patient displays improved range of motion, coordination, and muscle dynamics of pelvic floor as evidenced by the ability to lengthen without paradoxical contraction at least 75% of the time to normalize bladder/bowel function; reduce pelvic pain.-PROGRESSING Patient to correctly isolate pelvic floor muscles without compensatory patterns of breath holding and gluteal use to improve bladder/bowel control.-MOSTLY MET Patient reports having >4 bowel movements per week without use of enema, suppositories, and reduced need for supplementation to demonstrate improved bowel function.-PROGRESSING Patient reports increased water intake to >50 ounces/day to promote bladder and bowel health.-PROGRESSING Patient demonstrates ability to perform diaphragmatic breathing and relaxation practice independently to allow for decreased muscle tightness, decreased pain, and improved bladder/bowel function. -PROGRESSING, 75% PROGRESS Patient Goals: improve evacuation and defecation Time Frame for Goals and Treatment : 09/26/24 Planned Interventions, Frequency, and Duration: 1x every other week, 10 weeks Total Number of Visits Planned: 6 Patient to be seen for Therapeutic exercise (75773), Neuromuscular re-education (22316), Manual therapy (09481), Therapeutic activities (44127), Self-half-way management (27802), Patient/Family/Caregiver Education, Body Mechanics Training PLAN FOR NEXT VISIT: internal/external manual, stretching, colonic mobilization. SUBJECTIVE: Pt reports gassy and some liquid stool, multiple times/day. Very crampy, tearful on arrival to session. On another elimination diet, working with dance teacher.. Functional Limitations: bladder function, bowel function, physical activities, recreational activities Pain: Pain Pain Level: 8 Pain Location: Abdomen Description: Cramping Frequency: Continuous Post Treatment Pain Post Treatment Pain Level: Better PROMIS Scales 07/14/2024 06/06/2024 03/30/2024 Higher is Better Phys Func - Score 57 (within normal limits) 56 (within normal limits) 56 (within normal limits) Phys Func - Percentile 76 73 73 Self-Eff Symptom - Score 41 (Average) 45 (Average) 57 (Average) Self-Eff Symptom - Percentile 18 31 76 T-scores: mean of general population = 50. 5 points is clinically meaningfully difference Percentiles provide an indication of how the patient's score ranks in relation to the general population. Higher percentile rankings indicate better function/quality of life. 50th percentile is the average of the general population and indicates half of respondents had a worse score. OBJECTIVE MEASURES WITH LEVEL OF FUNCTION: Pelvic Floor Bowel Movement Frequency: multiple times/day, very little productivity of BM, mostly gas Bowel Movement Consistency (Winston) : 6: Fluffy pieces with ragged edges, a mushy stool, 7: Watery, no solid pieces Bloating / abdominal pain: Yes Pelvic Floor Muscle Assessment Consent for pelvic assessment/testing and treatment: Patient was educated regarding pelvic floor physical therapy assessment/treatment which may include pelvic floor and girdle muscle assessment externally or internally (vaginal or rectal approach)., Patient verbalized consent for the above treatment approaches today. Patient understands they have control of the treatment and an opportunity to stop treatment at any time. Pelvic Floor Muscle Assessment: Muscle Dynamics Power: 3 Contracton Pressure: Moderate squeeze, felt all the way around finger surface (more content not included)...[facility]08-28-2024 History of Present illness Narrative* Akla Sheppard, PT - 07/14/2024 1:15 PM EDT Program_ID:[id number] Access Code: [email or web address] URL: [email or web address] Date: 07-14-2024 Prepared By: Alka Sheppard Program Notes Exercises - Supine Diaphragmatic Breathing with Pelvic Floor Lengthening - 2 x daily - 7 x weekly - sets - 10 reps - Diaphragmatic Breathing in Child's Pose with Pelvic Floor Relaxation - 1-2 x daily - 7 x weekly - 2 sets - reps - Supine Lower Trunk Rotation - 1-2 x daily - 7 x weekly - sets - 10 reps - Hip Flexor Stretch on Step - 1-2 x daily - 7 x weekly - 3 sets - reps - Static Prone on Elbows - 1-2 x daily - 7 x weekly - 3 sets - reps - Cat Cow to Child's Pose - 1 x daily - 7 x weekly - 3 sets - 10 reps Patient Education - Get To Know Your Pelvic Floor- Female - cc Pelvic Floor - Constipation Massage - cc Pelvic Floor - Bladder Health & Emptying Techniques - cc Pelvic Floor - Bowel Movement Education - cc Pelvic Floor - Winston Stool Chart - cc Pelvic Floor - Bowel Diary * Alka Sheppard PT - 07/14/2024 12:33 PM EDT Episode Visit Count: 6 Therapist That Will Accept/Oversee The Plan Of Care: Alka Sheppard PT, DPT Start of Care Date: 03/31/24 Onset Date: 03/04/24 Plan of Care Certification Date: 06/28/24 Next Certification Due Date: 09/26/24 Patient Identified by Name and Date of : Yes REHABILITATION AND SPORTS THERAPY PHYSICAL THERAPY TREATMENT NOTE ASSESSMENT: Gisela Turner tolerated the session with decreased symptoms. She demonstrated improvements in pain reduction with exercises and manual interventions. Continuing to demonstrate significant cramping and difficulty with defecation, however variable and diet-dependent. The patient will continue to benefit from ongoing skilled physical therapy to progress toward set goals. PLAN FOR NEXT VISIT: internal/external manual, stretching, colonic mobilization. SUBJECTIVE: Pt reports very gassy lately, not much productivity in regards to bowels. Pain: Pain Pain Level: 7 Pain Location: Abdomen Description: Cramping Frequency: Intermittent Post Treatment Pain Post Treatment Pain Level: Better OBJECTIVE MEASURES WITH LEVEL OF FUNCTION: Pelvic Floor Muscle Assessment Consent for pelvic assessment/testing and treatment: Patient was educated regarding pelvic floor physical therapy assessment/treatment which may include pelvic floor and girdle muscle assessment externally or internally (vaginal or rectal approach)., Patient verbalized consent for the above treatment approaches today. Patient understands they have control of the treatment and an opportunity to stop treatment at any time. TREATMENT: Manual Therapy: 1: colonic mobilization in supine Skilled Intervention: Manual skills to improve joint mobility, ROM, and decrease pain. Utilized anatomy knowledge of the therapist, and assessment of patient's response to intervention. Neuromuscular Re-Education: 1: modified cobra/up dog for abdominal stretching with breathing x 60 2: diaphragmatic breathing with PFM relaxation sidelying 3: hooklying LTR x 10 4: *cat cow to tan pose x 10 5: review of regimen in AM to ensure healthy bowel habits Skilled Intervention: Reviewed and educated patient on additions/changes for home program as noted above with an (*). Provided written instruction for home program to facilitate proper performance and compliance. Correct performance of home program was facilitated with verbal, visual, and tactile cueing. Patient education as noted. Billing Manual TherapyTreatment Minutes: 10 Neuromuscular Re-Education Treatment Minutes: 32 Skilled Treatment Time Minutes (timed and untimed codes): 42 Total Session Time (minutes): 42 Session Start Time : 1233 Session Stop Time : 1315 Alka Sheppard PT documented in [facility] encounterC[facility] Telephone encounter Note * Telephone Encounter - Polina Varela RN - 07/14/2024 9:00 AM EDT Patient has been identified by name and date of : Yes Pt states she continues to have rectal bleeding. Pt states that she has very little stool, but willhave bleeding. Pt endorses straining with BM, and states that she can't tell if the bleeding is internal. Reviewed note from office visit 06/17/24. Ramone rec pt try Venixxa cream for hemorrhoids. Pt statesthat she had forget about the rec, and has not tried the cream. Pt states that she will try the cream. Pt instructed to call the office if no improvement in sx. Pt verbalized understanding. Polina Varela RN [facility]08-[facility] Miscellaneous Notes* Telephone Encounter - Polina Varela RN - 07/14/2024 9:00 AM EDT Patient has been identified by name and date of : Yes Pt states she continues to have rectal bleeding. Pt states that she has very little stool, but willhave bleeding. Pt endorses straining with BM, and states that she can't tell if the bleeding is internal. Reviewed note from office visit 06/17/24. Ramone rec pt try Venixxa cream for hemorrhoids. Pt statesthat she had forget about the rec, and has not tried the cream. Pt states that she will try the cream. Pt instructed to call the office if no improvement in sx. Pt verbalized understanding. Polina Varela RN documented in this encounterC[facility] History of Present illness Narrative* Alka Sheppard, PT - 06/28/2024 3:41 PM EDT Program_ID:[id number] Access Code: [email or web address] URL: [email or web address] Date: 06-28-2024 Prepared By: Alka Sheppard Program Notes Exercises - Supine Diaphragmatic Breathing with Pelvic Floor Lengthening - 2 x daily - 7 x weekly - sets - 10 reps - Diaphragmatic Breathing in Child's Pose with Pelvic Floor Relaxation - 1-2 x daily - 7 x weekly - 2 sets - reps - Supine Lower Trunk Rotation - 1-2 x daily - 7 x weekly - sets - 10 reps - Hip Flexor Stretch on Step - 1-2 x daily - 7 x weekly - 3 sets - reps - Cobra - 1-2 x daily - 7 x weekly - sets - 10 reps Patient Education - Get To Know Your Pelvic Floor- Female - cc Pelvic Floor - Constipation Massage - cc Pelvic Floor - Bladder Health & Emptying Techniques - cc Pelvic Floor - Bowel Movement Education - cc Pelvic Floor - Winston Stool Chart - cc Pelvic Floor - Bowel Diary * Alka Sheppard, PT - 06/28/2024 3:01 PM EDT Episode Visit Count: 5 Therapist That Will Accept/Oversee The Plan Of Care: Alka Sheppard PT, DPT Start of Care Date: 03/31/24 Onset Date: 03/04/24 Plan of Care Certification Date: 06/28/24 Next Certification Due Date: 09/26/24 Patient Identified by Name and Date of : Yes REHABILITATION AND SPORTS THERAPY PHYSICAL THERAPY PROGRESS REPORT PLAN OF CARE UPDATE: Assessment: Gisela Turner demonstrates minimal improvement in compromised bowel function. She has progressed toward goals. Patient continues to present with impairments in flexibility, independence in exercise,range of motion, strength, and symptom management that interfere with bladder function, bowel function, physical activities, recreational activities . Current prognosis is Good due to: current objective clinical presentation, good overall health status, good support system/ coping skills . She willbenefit from continued skilled therapy services to meet the updated goals for this plan of care as noted below. Goals for Episode of Care: created on 03/31/24 through 06/29/24, updated on 06/07/2024, 06/28/2024 Patient demonstrates independence and compliance with home exercise program.- ONGOING Patient displays improved range of motion, coordination, and muscle dynamics of pelvic floor as evidenced by the ability to lengthen without paradoxical contraction at least 75% of the time to normalize bladder/bowel function; reduce pelvic pain.-PROGRESSING Patient to correctly isolate pelvic floor muscles without compensatory patterns of breath holding and gluteal use to improve bladder/bowel control.-MOSTLY MET Patient reports having >4 bowel movements per week without use of enema, suppositories, and reduced need for supplementation to demonstrate improved bowel function.-PROGRESSING Patient reports increased water intake to >50 ounces/day to promote bladder and bowel health.-PROGRESSING Patient demonstrates ability to perform diaphragmatic breathing and relaxation practice independently to allow for decreased muscle tightness, decreased pain, and improved bladder/bowel function. -PROGRESSING, 75% PROGRESS Patient Goals: improve evacuation and defecation Planned Interventions, Frequency, and Duration: 1x every other week, 12 weeks Total Number of Visits Planned: 8 Patient to be seen for Therapeutic exercise (86043), Neuromuscular re-education (11605), Manual therapy (95227), Therapeutic activities (28318), Self-half-way management (55052), Patient/Family/Caregiver Education, Body Mechanics Training PLAN FOR NEXT VISIT: review cobra, internal/external manual. SUBJECTIVE: Planned to start on metamucil or 2 kiwis per day. Had some metamucil this morning, ableto have a hard BM, some cramping after. Still noticing blood during BM's, no pain, pt informed MD.. Functional Limitations: bladder function, bowel function, physical activities, recreational activities Pain: Pain Pain Level: 3 Pain Location: Abdomen Description: Cramping Frequency: Intermittent Post Treatment Pain Post Treatment Pain Level: Better PROMIS Scales 06/06/2024 03/30/2024 Higher is Better Phys Func - Score 56 (within normal limits) 56 (within normal limits) Phys Func - Percentile 73 73 Self-Eff Symptom - Score 45 (Average) 57 (Average) Self-Eff Symptom - Percentile 31 76 T-scores: mean of general population = 50. 5 points is clinically meaningfully difference Percentiles provide an indication of how the patient's score ranks in relation to the general population. Higher percentile rankings indicate better function/quality of life. 50th percentile is the average of the general population and indicates half of respondents had a worse score. OBJECTIVE MEASURES WITH LEVEL OF FUNCTION: Pelvic Floor Muscle Assessment Consent for pelvic assessment/testing and treatment: Patient was educated regarding pelvic floor physical therapy assessment/treatment which may include pelvic floor and girdle muscle assessment externally or internally (vaginal or rectal approach)., Patient verbalized consent for the above treatment approaches today. Patient understands they have control of the treatment and an opportunity to stop treatment at any time. Pelvic Floor Muscle Assessment: Muscle Dynamics Contracton Pressure: Moderate squeeze, felt all the way around finger surface Duration of Contraction: >3 seconds Recruitment of pelvic floor muscles: Coordinated Range of Motion: Decreased Ability to Lengthen pelvic floor: Difficulty at first, but improves with cueing and practice Pelvic Floor Manual Assessment Pelvic Floor Tenderness/Hyperactivity: Tested Rectally in Tested Rectally in : Sidelying Iliococcygeus: Left Puborectalis: Left LE Flexibility R Hip Flexor Flexibility: min restriction TREATMENT: Manual Therapy: 1: internal rectal TPR mild distraction in sidelying, R>L focus 2: assisted lengthening rectally with breathing, sidelying, 1 digit Skilled Intervention: Manual skills to improve joint mobility, ROM, and decrease pain. Utilized anatomy knowledge of the therapist, and assessment of patient's response to intervention. Neuromuscular Re-Education: 1: *cobra/up dog for abdominal stretching 2: diaphragmatic breathing with PFM relaxation sidelying 3: standing hip flexor stretch static 30-60 L side focus 4: tan pose with breathing and PFM relaxation 5: marching in place/toe taps on step for hip flexor activation x 2min 6: progress note Skilled Intervention: Reviewed and educated patient on additions/changes for home program as noted above with an (*). Provided written instruction for home program to facilitate proper performance and compliance. Correct performance of home program was facilitated with verbal, visual, and tactile cueing. Patient education as noted. Billing Manual TherapyTreatment Minutes: 15 Neuromuscular Re-Education Treatment Minutes: 30 Skilled Treatment Time Minutes (timed and untimed codes): 45 Total Session Time (minutes): 47 Session Start Time : 1500 Session Stop Time : 7 Alka Sheppard PT documented in this encounterC[facility] History of Present illness Narrative* Alka Sheppard, PT - 06/23/2024 2:18 PM EDT Episode Visit Count: 4 Therapist That Will Accept/Oversee The Plan Of Care: Alka Sheppard PT, DPT Start of Care Date: 03/31/24 Onset Date: 03/04/24 Plan of Care Certification Date: 03/31/24 Next Certification Due Date: 06/29/24 Patient Identified by Name and Date of : Yes REHABILITATION AND SPORTS THERAPY PHYSICAL THERAPY TREATMENT NOTE ASSESSMENT: Gisela Turner tolerated the session with no issues. She demonstrated improvements in PFM lengthening with internal assistance, cueing, and manual interventions. The patient will continueto benefit from ongoing skilled physical therapy to progress toward set goals. PLAN FOR NEXT VISIT: [place] review HEP, progress as able SUBJECTIVE: Pt reports having a BM with blood recently, pt has informed MD, believe it's related tohemmorhoids. Pain: Pain Pain Level: 7 Pain Location: Abdomen Description: Cramping Frequency: Intermittent Post Treatment Pain Post Treatment Pain Level: (slightly better, still bloated) OBJECTIVE MEASURES WITH LEVEL OF FUNCTION: Pelvic Floor Bowel Movement Consistency ([place]) : 5: Soft blobs with clear cut edges, 6: Fluffy pieces with ragged edges, a mushy stool, 3: Like a sausage or snake but with cracks on its surface Pelvic Floor Muscle Assessment Consent for pelvic assessment/testing and treatment: Patient was educated regarding pelvic floor physical therapy assessment/treatment which may include pelvic floor and girdle muscle assessment externally or internally (vaginal or rectal approach)., Patient verbalized consent for the above treatment approaches today. Patient understands they have control of the treatment and an opportunity to stop treatment at any time. Pelvic Floor Muscle Assessment: Muscle Dynamics Contracton Pressure: Moderate squeeze, felt all the way around finger surface Duration of Contraction: >3 seconds Recruitment of pelvic floor muscles: Coordinated Extra-pelvic muscle activity: Holds breath Range of Motion: Decreased (mod elevated resting tone) Ability to Lengthen pelvic floor: (partially) Relaxation Postcontraction: Partial Paradoxical Contraction: Intermittent Involuntary Contraction: Yes Non-relaxing pelvic floor : Present Pelvic Floor Manual Assessment Lower abdominals: Left Pelvic Floor Tenderness/Hyperactivity: Tested Rectally in Tested Rectally in : Sidelying Iliococcygeus: Left Puborectalis: Left (mod restriction) TREATMENT: Manual Therapy: 1: supine abominal STM and colonic mobilization 2: assisted lengthening rectally with breathing, sidelying, 1 digit Skilled Intervention: Manual skills to improve joint mobility, ROM, and decrease pain. Utilized anatomy knowledge of the therapist, and assessment of patient's response to intervention. Neuromuscular Re-Education: 1: review of HEP 2: LTR x 20 3: standing hip flexor stretch static 30-60 L side focus Skilled Intervention: Reviewed and educated patient on additions/changes for home program as noted above with an (*). Correct performance of home program was facilitated with verbal, visual, and tactile cueing. Patient education as noted. Self-Alf Management: 1: review of bowel emptying habits 2: review of bowel emptying dynamics Skilled Intervention: Reviewed and educated patient on additions/changes for home program as noted above with an (*). Provided written instruction for home program to facilitate proper performance and compliance. Correct performance of home program was facilitated with verbal, visual, and tactile cueing. Billing Manual TherapyTreatment Minutes: 15 Neuromuscular Re-Education Treatment Minutes: 15 Self-Care/Home Management Treatment Minutes: 15 Skilled Treatment Time Minutes (timed and untimed codes): 45 Total Session Time (minutes): 45 Session Start Time : 1415 Session Stop Time : 1500 Alka Sheppard PT documented in this encounterC[facility] History of Present illness Narrative* Estrellita Ferreira MD - 06/17/2024 4:30 PM EDT [facility] SMALL BOWEL DISEASES AND NUTRITION FOLLOW UP VISIT: Date of direct communication: 06/17/24 Assessment IMPRESSION: Gisela Turner is a 53 year old female with history of GERD, MDD, Bipolar, prior ED, with abdominal bloating, constipation and pelvic floor dysfunction. Seen in follow up. Gisela Turner had the opportunity to have all their concerns and questions addressed DIAGNOSTIC ISSUES AND PLAN: #) Bloating/Nausea/GERD Improving drastically with FODMAP restriction diet, working closely with an RD as history of ED andnow reintroducing some FODMAPs. Uses [place] and Zofran PRN The PPI is helpful in her symptoms. Advise to try digestive enzymes #) Rectal bleeding Due to hemorrhoids based on history and left colon was clear. Advise for cream topically and courseof Venixxa, improving #) Constipation/ pelvic floor dysfunction Linzess was not effective but in setting of high FODMAP in diet, advise now to retry every day or every other day to help with bowels. She is also starting PT to help Advise to try soluble fiber #) Mesenteric lymphadenopathy Prior CT shows stability, not increasing, VCE and Push was normal, normal pathology as well, likelydue to prior episode of enteritis. No further investigation at this time FOLLOW-UP: 4-5 months Estrellita Ferreira MD, MSc, FR, [facility] Staff, Department of Gastroenterology, Hepatology & Nutrition [facility] [place] [facility] 06/17/24 PRIMARY PROBLEM: Chronic constipation./bloating Last Seen in Clinic on 03/31/24, Where the plan was to working with RD with the FODMAP. INTERVAL HISTORY: Today patient states overall she feels better She had the full FODMAP elimination diet with RD and decrease it down. And she founds some GFD is not helpful. She finds the fructans and finds the honey and raisins are the worse. Bloating is significantly better, however if she has something that doesn't sit well will have a lot of bloating and pain. Passing gas has improved, and going therapy with PT but will find it will affect the bladder with burning and urgency. But she is working with Pelvic Floor Therapy. Bowels are improving- using squatty potty. Will have some rectal bleeding but not as before. Varies- will have bowels every other day. Diet improving. Will vary between hard to soft. CURRENT NUTRITION SUPPORT: Eating multiple meals a day Trying to avoid the trigger foods, has helped with cramping. Will drink 2 8 oz of water. Weight history: Last 5 Encounter Wt Readings: Date: Wt: 02/20/2024 59 kg (130 lb) 02/09/2024 60.8 kg (134 lb) 08/06/2023 58.5 kg (129 lb) 07/03/2022 60.3 kg (133 lb) 07/26/2021 59 kg (130 lb) CURRENT MEDICATIONS: Current Outpatient Medications Medication Sig Dispense Refill estradiol (ESTRACE) 0.01 % (0.1 mg/gram) vaginal cream APPLY A PEA SIZED AMOUNT TO LOWER VAGINA AT BEDTIME TWICE WEEKLY. 43 g 0 atorvastatin (LIPITOR) 20 mg tablet estradiol (ESTRACE) 2 mg tablet Take 1 tablet by mouth once daily. 30 tablet 11 aspirin, enteric coated (ASPIRIN, ENTERIC COATED) 81 mg EC tablet Take by mouth. ondansetron orally disintegrating (ZOFRAN ODT) 4 mg disintegrating tablet Ondansetron Ondansetron Active 4 MG EVERY 8 HOURS NEEDED January 04, 2020 3:16am 01-04-2020 [facility] ([id number]) traZODone (DESYREL) 50 mg tablet traZODone Trazodone Active 50 MG AT BEDTIME January 03, 2020 10:35pm 01-03-2020 [facility] ([id number]) QUEtiapine (SEROQUEL) 50 mg tablet Take 1 tablet by mouth daily at bedtime. 30 tablet 0 desvenlafaxine ER (PRISTIQ) 50 mg 24 hr tablet Take 1 tablet by mouth once daily. lansoprazole (PREVACID) 30 mg capsule Take 30 mg by mouth once daily. Dexlansoprazole (DEXILANT) 60 mg CpDM Take by mouth. 0 LAMOTRIGINE (LAMICTAL ORAL) Take by mouth once daily. 200 mg daily buPROPion SR (WELLBUTRIN SR) 100 mg 12 hr tablet Take 1 tablet by mouth once daily. 0 linaCLOtide (LINZESS) 72 mcg capsule Take 1 capsule by mouth once daily. Administer on an empty stomach. Swallow whole; DO NOT crush or chew. 30 capsule 2 dicyclomine (BENTYL) 20 mg tablet diclofenac, EC, (VOLTAREN) 50 mg EC tablet TAKE 1 TABLET BY MOUTH TWICE DAILY NEEDED for headache No current facility-administered medications for this visit. ALLERGIES: ALLERGIES Allergen Reactions Amoxicillin Hives Bactrim [Sulfametho* Rash Diphenhydramine Other: See Comments Gluten Flour Intolerance Pt reports migraines from flour Moxifloxacin Hives Septra [Sulfamethox* Rash Trileptal [Oxcarbaz* Zomig [Zolmitriptan] Zyprexa [Olanzapine] PAST MEDICAL/SURGICAL HISTORY, SOCIAL HISTORY, AND FAMILY HISTORY: Reviewed and is unchanged aside from the changes documented in HPI. REVIEW OF SYSTEMS: ROS completed and negative outside of the systems documented in the HPI. INVESTIGATIONS: All available pertinent interval investigations were reviewed and were notable for: ENDOSCOPY/PATHOLOGY: 03/10/24- VCE Indication: Mesenteric Lymphadenopathy Capsule reached the cecum but did not leave the colon for duration of this examination Prep quality: Adequate Limited views of the esophagus and stomach were normal Small bowel: normal, no masses, ulcerations or AVMs seen Colon obscured by stool Summary: Normal video endoscopy of the small bowel EGD/[place] 03/11/24 Impression: - Normal esophagus. - Z-line regular, 35 cm from the incisors. - Normal stomach. Biopsied. - Normal duodenal bulb, first portion of the duodenum, second portion of the duodenum, third portion of the duodenum and fourth portion of the duodenum. Biopsied. - Normal examined jejunum. Biopsied. Impression: - Perianal skin tags found on perianal exam. - The examined portion of the ileum was normal. - One 4 mm polyp in the sigmoid colon, removed with a cold snare. Resected and retrieved. - The examination was otherwise normal on direct and retroflexion views. A. Random jejunum, biopsy: - Small bowel mucosa with no significant diagnostic alteration. - No evidence of celiac disease or enteritis. B. Duodenum, biopsy: - Duodenal mucosa with no significant diagnostic alteration. - No evidence of celiac disease or duodenitis. C. Gastric antrum, biopsy: - Antral mucosa with no significant diagnostic alteration. - No morphologic evidence of Helicobacter pylori organisms. D. Gastric body, biopsy: - Oxyntic mucosa with features suggestive of proton pump inhibitor effect. - No morphologic evidence of Helicobacter pylori organisms. E. Sigmoid colon polyp, biopsy: - Hyperplastic polyp. IMAGING: Stiz Markers 03/10 IMPRESSION: Progression of Sitz markers, but with markers remaining in the distal descending and rectosigmoid colon. LAB WORK: Celiac screen neg 02/07 Latest Reference Range & Units 02/09/24 11:46 Sodium 136 - 144 mmol/L 141 Potassium 3.7 - 5.1 mmol/L 4.8 Chloride 97 - 105 mmol/L 103 CO2 22 - 30 mmol/L 29 BUN 7 - 21 mg/dL 13 Creatinine 0.58 - 0.96 mg/dL 0.75 Glucose 74 - 99 mg/dL 85 Protein, Total 6.3 - 8.0 g/dL 7.4 Calcium 8.5 - 10.2 mg/dL 9.7 Magnesium 1.7 - 2.3 mg/dL 2.0 Phosphorus 2.7 - 4.8 mg/dL 3.8 Albumin 3.9 - 4.9 g/dL 4.4 Bilirubin, Total 0.2 - 1.3 mg/dL 0.4 Alkaline Phosphatase 34 - 123 U/L 116 ALT 7 - 38 U/L 26 AST 13 - 35 U/L 28 Anion Gap 9 - 18 mmol/L 9 eGFR >=60 mL/min/1.73m 95 Iron 41 - 186 ug/dL 58 TIBC 232 - 386 ug/dL 364 Transferrin Saturation 15.0 - 57.0 % 15.9 Vitamin A 0.30 - 1.20 mg/L 0.51 Vitamin D 25 Hydroxy 31.0 - 80.0 ng/mL 46.3 Prealbumin 17 - 36 mg/dL 21 IgA 70 - 400 mg/dL 336 Gliadin Ab, IgA <20 Units 6 Interpretation (Celiac Screen) No serological evidence of celiac disease, however, if celiac disease is clinically suspected and patient is not on gluten- free diet, histological diagnosis may be considered. HLA testing may help with risk assessment. Gliad Deamidated IgA Qual Negative, Test not Indicated Negative Transglutaminase IgA Abs <4 U/mL <2 Transglutaminase IgA Abs Interpretation Negative Negative Copper 80 - 155 ug/dL 112 Zinc 60 - 120 ug/dL 67 WBC 3.70 - 11.00 k/uL 4.65 RBC 3.90 - 5.20 m/uL 4.71 Hemoglobin 11.5 - 15.5 g/dL 13.4 Hematocrit 36.0 - 46.0 % 40.5 Platelet Count 150 - 400 k/uL 252 MCV 80.0 - 100.0 fL 86.0 MCH 26.0 - 34.0 pg 28.5 MCHC 30.5 - 36.0 g/dL 33.1 MPV 9.0 - 12.7 fL 8.7 (L) RDW-CV 11.5 - 15.0 % 12.2 DTYPE Auto Neut% % 34.0 Abs Neut (ANC) 1.45 - 7.50 k/uL 1.58 Lymph% % 51.6 Abs Lymph 1.00 - 4.00 k/uL 2.40 Hendricks% % 10.3 Abs Hendricks <0.87 k/uL 0.48 Eosin% % 2.8 Abs Eosin <0.46 k/uL 0.13 Baso% % 1.1 Abs Baso <0.11 k/uL 0.05 Immature Gran % % 0.2 IMMATURE GRANS (ABS) <0.10 k/uL <0.03 NRBC /100 WBC 0.0 Absolute nRBC <0.01 k/uL <0.01 (L): Data is abnormally low Physical Exam: BP 153/83 Pulse 97 Temp 36.4 C (97.5 F) (Temporal) Ht 160 cm (5' 3) Wt 59.9 kg (132 lb) LMP 09/13/2013 SpO2 99% BMI 23.38 kg/m Body mass index is 23.38 kg/m . Constitutional: Healthy and well developed HEENT: No icterus. Dentition in tact. Moist mucus membranes. Neck: No lymphadenopathy. No major masses Resp: Normal resp effort. Clear air entry with no crackles or wheezes CVS: PPP bilat. Normal S1 and S2 Abdo: Non-distended, soft, no masses. non tender VIET: Deferred Extr: muscle bulk: in tact and subQ fat: in tact. No edema. Skin: Warm and dry. No rash. Nails intact Neuro: A&O, normal gait. Psych: Normal affect and memory. Total time of this patient encounter today was >35 mins, including: preparation for visit, direct time with the patient, examination, orders, review of records, and documentation. documented in this encounterC[facility] History of Present illness Narrative* Alka Sheppard, PT - 06/07/2024 12:15 PM EDT Program_ID:[id number] Access Code: [email or web address] URL: [email or web address] Date: 06-07-2024 Prepared By: Alka Sheppard Program Notes Exercises - Supine Diaphragmatic Breathing with Pelvic Floor Lengthening - 2 x daily - 7 x weekly - sets - 10 reps - Diaphragmatic Breathing in Child's Pose with Pelvic Floor Relaxation - 1-2 x daily - 7 x weekly - 2 sets - reps - Supine Lower Trunk Rotation - 1-2 x daily - 7 x weekly - sets - 10 reps - Hip Flexor Stretch on Step - 1-2 x daily - 7 x weekly - 3 sets - reps Patient Education - Get To Know Your Pelvic Floor- Female - cc Pelvic Floor - Constipation Massage - cc Pelvic Floor - Bladder Health & Emptying Techniques - cc Pelvic Floor - Bowel Movement Education - cc Pelvic Floor - Winston Stool Chart - cc Pelvic Floor - Bowel Diary * Alka Sheppard, PT - 06/07/2024 11:44 AM EDT Episode Visit Count: 3 Therapist That Will Accept/Oversee The Plan Of Care: Alka Sheppard PT, DPT Start of Care Date: 03/31/24 Onset Date: 03/04/24 Plan of Care Certification Date: 03/31/24 Next Certification Due Date: 06/29/24 Patient Identified by Name and Date of : Yes REHABILITATION AND SPORTS THERAPY PHYSICAL THERAPY PROGRESS REPORT PLAN OF CARE UPDATE: Assessment: Gisela Turner demonstrates minimal improvement in compromised bowel function. She has progressed toward goals. Patient continues to present with impairments in flexibility, posture, range of motion,stress management, symptom management, and tissue tenderness that interfere with bladder function, bowel function, physical activities, recreational activities . Current prognosis is Good due to: current objective clinical presentation, good overall health status, good support system/ coping skills. She will benefit from continued skilled therapy services to meet the updated goals for this plan of care as noted below. Goals for Episode of Care: created on 03/31/24 through 06/29/24, updated on 06/07/2024 Patient demonstrates independence and compliance with home exercise program.- ONGOING Patient displays improved range of motion, coordination, and muscle dynamics of pelvic floor as evidenced by the ability to lengthen without paradoxical contraction at least 75% of the time to normalize bladder/bowel function; reduce pelvic pain.-PROGRESSING Patient to correctly isolate pelvic floor muscles without compensatory patterns of breath holding and gluteal use to improve bladder/bowel control.-MOSTLY MET Patient reports having >4 bowel movements per week without use of enema, suppositories, and reduced need for supplementation to demonstrate improved bowel function.-PROGRESSING Patient reports increased water intake to >50 ounces/day to promote bladder and bowel health.-PROGRESSING Patient demonstrates ability to perform diaphragmatic breathing and relaxation practice independently to allow for decreased muscle tightness, decreased pain, and improved bladder/bowel function. -PROGRESSING, 75% PROGRESS Patient Goals: improve evacuation and defecation Planned Interventions, Frequency, and Duration: 1x/week, 2 weeks (then taper) Total Number of Visits Planned: 8 Patient to be seen for Therapeutic exercise (67728), Neuromuscular re-education (79072), Manual therapy (94137), Therapeutic activities (10432), Self-half-way management (60843), Patient/Family/Caregiver Education, Body Mechanics Training PLAN FOR NEXT VISIT: review HEP, progress as able SUBJECTIVE: Had a bad sinus infection, working on dietary changes. Reports happy baby exercise created more bladder urgency. Using squatty potty for bowel emptying. Doesn't have to strain. Had eggs, yogurt (almond vanilla), sugar free candy- may have triggered bloating today.. Functional Limitations: bladder function, bowel function, physical activities, recreational activities Pain: Pain Pain Level: 7 Pain Location: Abdomen Description: Cramping Post Treatment Pain Post Treatment Pain Level: No Change PROMIS Scales 06/06/2024 03/30/2024 Higher is Better Phys Func - Score 56 (within normal limits) 56 (within normal limits) Phys Func - Percentile 73 73 Self-Eff Symptom - Score 45 (Average) 57 (Average) Self-Eff Symptom - Percentile 31 76 T-scores: mean of general population = 50. 5 points is clinically meaningfully difference Percentiles provide an indication of how the patient's score ranks in relation to the general population. Higher percentile rankings indicate better function/quality of life. 50th percentile is the average of the general population and indicates half of respondents had a worse score. OBJECTIVE MEASURES WITH LEVEL OF FUNCTION: Pelvic Floor Bowel Movement Consistency (Winston) : 5: Soft blobs with clear cut edges, 6: Fluffy pieces with ragged edges, a mushy stool Pelvic Floor Muscle Assessment Consent for pelvic assessment/testing and treatment: Patient was educated regarding pelvic floor physical therapy assessment/treatment which may include pelvic floor and girdle muscle assessment externally or internally (vaginal or rectal approach)., Patient verbalized consent for the above treatment approaches today. Patient understands they have control of the treatment and an opportunity to stop treatment at any time. (external palpation this date) Pelvic Floor Muscle Assessment: Muscle Dynamics Contracton Pressure: Moderate squeeze, felt all the way around finger surface Duration of Contraction: >3 seconds Range of Motion: Decreased Ability to Lengthen pelvic floor: Yes Relaxation Postcontraction: Yes Paradoxical Contraction: No LE Flexibility Flexibility: Hip Internal Rotation Flexibility, Hip Flexor Flexibility R Hip Flexor Flexibility: min restriction L Hip Flexor Flexibility: mod restriction R Hip Internal Rotation Flexibility: mod restriction L Hip Internal Rotation Flexibility: major restriction TREATMENT: Manual Therapy: 1: supine abominal STM and colonic mobilization Skilled Intervention: Manual skills to improve joint mobility, ROM, and decrease pain. Utilized anatomy knowledge of the therapist, and assessment of patient's response to intervention. Neuromuscular Re-Education: 1: review of HEP 2: progress report 3: replaced happy baby with tan pose per pt tolerance 30-60 holds BID 4: *LTR in supine 5: *Hip flexor stretch with step stool Skilled Intervention: Reviewed and educated patient on additions/changes for home program as noted above with an (*). Correct performance of home program was facilitated with verbal, visual, and tactile cueing. Patient education as noted. Self-Alf Management: 1: review of bowel emptying habits Skilled Intervention: Reviewed and educated patient on additions/changes for home program as noted above with an (*). Provided written instruction for home program to facilitate proper performance and compliance. Correct performance of home program was facilitated with verbal, visual, and tactile cueing. Billing Manual TherapyTreatment Minutes: 8 Neuromuscular Re-Education Treatment Minutes: 15 Self-Care/Home Management Treatment Minutes: 15 Skilled Treatment Time Minutes (timed and untimed codes): 38 Total Session Time (minutes): 38 Session Start Time : 1142 Session Stop Time : 1220 Alka Sheppard PT documented in this encounterC[facility] Instructions* Patient Instructions* Rosie Galloway PA-C - 05/04/2024 3:32 PM EDT To schedule an appointment you can call- [facility] [phone] option '0' Central [phone] documented in this encounterC[facility]06-[facility] History of Present illness Narrative* Rosie Galloway PA-C - 05/04/2024 2:30 PM EDT COLORECTAL SURGERY VIRTUAL VISIT FOLLOW UP I have communicated my name and active licensure. The patient's identity and physical location wereverified at the time of this visit. Either the patient or their legal utility sales representative has been informed of the risks and benefits of -- and alternatives to -- treatment through a remote evaluation andconsents to proceed with the evaluation remotely. I had a virtual visit with Ms. Turner today for follow up of constipation. UPDATED HISTORY: Gisela Turner is a 53 year old female Who I last saw in office on 03/04/24 for constipation. Duringthat visit an anorectal manometry was completed that showed: High tone, Hyperacute sensation and Paradoxicmovement. I recommended PFPT. Today She reports: Overall: -Fighting a sinus infection for 2 weeks - starting to feel better BM's: - can be 3-4 days - not as bloated as she used to be Pain: - improvement in pain and bloating - about 95% of the time good Bowel Regimen: - tried the Linzess again but messed her whole body up - had been taking Colace but got off due to being sick PFPT: - has gone to 2 sessions - has not necessarily helped her go - mainly has helped pass gas with a little bit of stool Other: - on FODMAP diet, starting to go back to some normal foods - honey hurts her stomach PHYSICAL FINDINGS OF NOTE: General - Normal, healthy, cooperative, in no acute distress Able to interact verbally by video conference Pulmonary - respiratory effort normal Abdominal - Not performed Motor - patient seen sitting with Normal appearing strength and coordination Anorectal exam - Not Performed Medical Decision Making: Assessment Assessment & Diagnosis: Gisela Turner is a 53 year old female who is following up in regards to constipation. Patient notes things are maybe slightly improved but about the same. She recently has been sick the past couple weeks due to a sinus infection so she couldn't go to therapy and was off taking her stool softeners.We discussed getting back on track and continuing with therapy. We will reevaluate in a few months. Data Reviewed: Tests & Documents Reviewed/ordered: Review of prior notes from [facility], GI. PT I have independently interpreted: none I have discussed Gisela Turner's treatment plan and/or results with patient. Treatment plan: - PFPT - continue working with GI - follow up virtually in 2-3 months - contact with questions/ concerns Rosie Galloway PA-C [facility] Risk of morbidity, mortality and/or complications of treatment plan: moderate I spent a total of 18 minutes on the date of the service which included preparing to see the patient, [id number] patient care, completing clinical documentation, obtaining and/or reviewing separately obtained history, performing a medically appropriate examination, and counseling and educating the patient/family/caregiver. documented in this encounterC[facility]06-11-[facility] Telephone encounter Note * Telephone Encounter - Jihan Espinoza RN - 04/27/2024 9:43 AM EDT Called pt and pt said does not need a sooner appt now, but will call back if does, still has appt for 09/16. Jihan Espinoza RN [facility] Work Phone: 1(251) 579-759706-11-2024 Miscellaneous Notes* Telephone Encounter - Jihan Espinoza RN - 04/27/2024 9:43 AM EDT Called pt and pt said does not need a sooner appt now, but will call back if does, still has appt for 09/16. Jihan Espinoza RN documented in this encounterC[facility]06-10-2024 Telephone encounter Note * Telephone Encounter - Jihan Espinoza RN - 04/26/2024 9:30 AM EDT Called pt to confirm med she was referring to was linzess, she said had not taken linzess for about2 weeks and the cramping and not feeling well mentioned in message is much better. Has had a sinus infection for about a week, so that has made her not feel great. Last good BM was about a week ago, only thing currently taking to help BM is a colace twice daily. Jihan Espinoza RN [facility] Work Phone: [phone]) 648-195606-10-2024 Miscellaneous Notes* Telephone Encounter - Jihan Espinoza RN - 04/26/2024 9:30 AM EDT Called pt to confirm med she was referring to was chentes, she said had not taken linzess for about2 weeks and the cramping and not feeling well mentioned in message is much better. Has had a sinus infection for about a week, so that has made her not feel great. Last good BM was about a week ago, only thing currently taking to help BM is a colace twice daily. Jihan Espinoza, RN documented in this encounterC[facility]05-22-2024 History of Present illness Narrative* Alka Sheppard, PT - 04/07/2024 11:54 AM EDT Episode Visit Count: 2 Therapist That Will Accept/Oversee The Plan Of Care: Alka Sheppard PT, DPT Start of Care Date: 03/31/24 Onset Date: 03/04/24 Plan of Care Certification Date: 03/31/24 Next Certification Due Date: 06/29/24 Patient Identified by Name and Date of : Yes REHABILITATION AND SPORTS THERAPY PHYSICAL THERAPY TREATMENT NOTE ASSESSMENT: Gisela Turner tolerated the session with no issues. She demonstrated improvements in exercise performance and techniques with min cues. The patient will continue to benefit from ongoing skilled physical therapy to progress toward set goals. PLAN FOR NEXT VISIT: Review PFM lengthening during bowel emptying, PFM coordination retraining. Add tan pose, colonicmobilization SUBJECTIVE: Pt reports after massage, a lot of gas. Meeting with dance teacher later today. Pain: Pain Pain Level: 1 Pain Location: Abdomen Description: Cramping OBJECTIVE MEASURES WITH LEVEL OF FUNCTION: Pelvic Floor Muscle Assessment Consent for pelvic assessment/testing and treatment: Patient was educated regarding pelvic floor physical therapy assessment/treatment which may include pelvic floor and girdle muscle assessment externally or internally (vaginal or rectal approach)., Patient verbalized consent for the above treatment approaches today. Patient understands they have control of the treatment and an opportunity to stop treatment at any time. (external palpation) Ability to Lengthen pelvic floor: Difficulty at first, but improves with cueing and practice Relaxation Postcontraction: Partial Pelvic Floor Manual Assessment Upper abdominals: Right Lower abdominals: Left TREATMENT: Manual Therapy: 1: supine colonic mobilization Skilled Intervention: Manual skills to improve joint mobility, ROM, and decrease pain. Utilized anatomy knowledge of the therapist, and assessment of patient's response to intervention. Neuromuscular Re-Education: 1: review of information and HEP implemented on eval 2: Happy Baby with Pelvic Floor Lengthening - 2 x daily - 7 x weekly - 3 sets - 30-60 hold 3: Supine or Seated Diaphragmatic Breathing with Pelvic Floor Lengthening - 2 x daily - 7 x weekly - 10 reps 4: encouraged walking regimen and healthy bowel habits 5: external PFM cues for improved PFM lengthening in hooklying with deep breathing Skilled Intervention: Education and demonstration for posture and positioning for tone management. Reviewed and educated patient on additions/changes for home program as noted above with an (*). Provided written instruction for home program to facilitate proper performance and compliance. Correct performance of home program was facilitated with verbal, visual, and tactile cueing. Patient education as noted. Self-Alf Management: 1: review of bowel diary, small BM's 1-2x/day, mostly gas, not a lot of fiber curre 2: review of bowel emptying dynamics 3: *belly hard + exhalation during emptying with PFM lengthening 4: review and discussion of bowel habits to promote emptying: ie drinking water, warm beverage, eating fiber rich foods as able (per dance teacher recs), walking Skilled Intervention: Educated the patient regarding recommendations and provided written instruction to facilitate compliance. Provided written instruction for activities of daily living techniques to facilitate proper performance and compliance. Reviewed and educated patient on additions/changes for home program as noted above with an (*). Provided written instruction for home program to facilitate proper performance and compliance. Correct performance of home program was facilitated with verbal, visual, and tactile cueing. Billing Manual TherapyTreatment Minutes: 10 Neuromuscular Re-Education Treatment Minutes: 15 Self-Care/Home Management Treatment Minutes: 15 Skilled Treatment Time Minutes (timed and untimed codes): 40 Total Session Time (minutes): 40 Session Start Time : 1154 Session Stop Time : 1234 Alka Sheppard PT documented in this encounterC[facility]05-[facility] History of Present illness Narrative* Alka Sheppard PT - 03/31/2024 11:32 AM EDT Program_ID:[id number] Access Code: [email or web address] URL: [email or web address] Date: 03-31-2024 Prepared By: Alka Sheppard Program Notes Exercises - Happy Baby with Pelvic Floor Lengthening - 2 x daily - 7 x weekly - 3 sets - reps - Supine Diaphragmatic Breathing with Pelvic Floor Lengthening - 2 x daily - 7 x weekly - sets - 10 reps Patient Education - Get To Know Your Pelvic Floor- Female - cc Pelvic Floor - Constipation Massage - cc Pelvic Floor - Bladder Health & Emptying Techniques - cc Pelvic Floor - Bowel Movement Education - cc Pelvic Floor - Winston Stool Chart - cc Pelvic Floor - Bowel Diary * Alka Sheppard PT - 03/31/2024 10:37 AM EDT Episode Visit Count: 1 Therapist That Will Accept/Oversee The Plan Of Care: Alka Sheppard PT, DPT Start of Care Date: 03/31/24 Onset Date: 03/04/24 Plan of Care Certification Date: 03/31/24 Next Certification Due Date: 06/29/24 Patient Identified by Name and Date of : Yes REHABILITATION AND SPORTS THERAPY PHYSICAL THERAPY EVALUATION PLAN OF CARE: Assessment: Gisela Turner presents with chief complaint of incomplete bowel emptying and paradoxical contraction that interferes with bladder function, bowel function, physical activities, recreational activities . She presents with impairments in flexibility, independence in exercise, posture, strength, stress management, symptom management, and tissue tenderness. PROMIS (Patient-Reported Outcomes Measurement Information System) scores were reviewed and identified as within normal limits. Prognosis for therapy is Good due to: current objective clinical presentation, good overall health status, good support system/ coping skills . She will benefit from skilled therapy services to meet the goals established for this plan of care as noted below. Goals for Episode of Care: created on 03/31/24 through 06/29/24 Patient demonstrates independence and compliance with home exercise program. Patient displays improved range of motion, coordination, and muscle dynamics of pelvic floor as evidenced by the ability to lengthen without paradoxical contraction at least 75% of the time to normalize bladder/bowel function; reduce pelvic pain. Patient to correctly isolate pelvic floor muscles without compensatory patterns of breath holding and gluteal use to improve bladder/bowel control. Patient reports having >4 bowel movements per week without use of enema, suppositories, and reduced need for supplementation to demonstrate improved bowel function. Patient reports increased water intake to >50 ounces/day to promote bladder and bowel health. Patient demonstrates ability to perform diaphragmatic breathing and relaxation practice independently to allow for decreased muscle tightness, decreased pain, and improved bladder/bowel function. Patient Goals: improve evacuation and defecation Planned Interventions, Frequency, and Duration: Current Frequency: 1x/week Duration: 12 weeks Total Number of Visits Planned: 12 Planned Treatment Interventions: Therapeutic exercise (80620), Neuromuscular re- education (23092), Manual therapy (27024), Therapeutic activities (09899), Self- half-way management (32430), Patient/Family/Caregiver Education, Body Mechanics Training PLAN FOR NEXT VISIT: review bowel diary, happy baby, PFM lengthening and proper PFM coordination toimprove bowel emptying. Review colonic mobilization. Encourage walking program. Patient demonstrates good understanding of plan of care and treatment. The above goals and plan of care were discussed and agreed upon by patient/family. SUBJECTIVE: On low fod map diet, reintroducing foods over past couple weeks. C/o issues with complete emptying of stool. Stool getting stuck in sigmoid colon per pt. Manometry testing indicates paradoxical contraction, high rest tone. chronic issues with bowel emptying however specifically worsened over past 2years. Also feels that urinary urgency has recently worsened as well. 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 5 points is clinically meaningfully difference Percentiles provide an indication of how the patient's score ranks in relation to the general population. Higher percentile rankings indicate better function/quality of life. 50th percentile is the average of the general population and indicates half of respondents had a worse score. OBJECTIVE MEASURES WITH LEVEL OF FUNCTION: Pelvic Floor Menstruation: hysterectomy ~10yrs ago Births: 2 (34, 31 dtr and son (9 grandchildren)) Vaginal Delivery: Standard Pain with penetration: (initially sometimes, lubrication helps, discomfort subsides) Sexual Health: sexually active History of low back pain: (occasional low back pain) Urinary/Bowel History : Urinary History, Bowel History Difficulty starting stream: Sometimes strains to void: Sometimes Incomplete emptying: Sometimes Stress Incontinence: No Urgency: Sometimes Urinary Incontinence: none Nocturia (times per night): (0-1) Daytime Frequency (hours): 4+ hrs Fluid Intake: Water, Tea, Coffee, Milk Water : 3-5 glasses/day Coffee: every other day Tea : green tea 1 cup Milk : sometimes a glass Difficulty evacuating / Excessive Straining: Yes Incomplete emptying: Yes Bowel Movement Frequency: every couple days typically Bowel Movement Consistency ([place]) : 1: Seperate hard lumps, like nuts, 2: Sausage-shaped but lumpy, 3: Like a sausage or snake but with cracks on its surface, 4: Like a sausage or snake, smooth and soft Bloating / abdominal pain: Yes Fecal incontinence: No Incontinence with Gas: No Ability to Control Gas: Yes Daily Dietary Fiber/ Food Intake: fodmap diet; BF: toast, eggs, water, blueberries; D: chicken, potatoes, green beans; eats at 10:30am and 3:30pm Bowel Aides / Supplements: has tried Linzess; planning to try every other day; tends to bloat Lumbar Flexion: Normal Lumbar Extension: Minimal limitation Pelvic Floor Muscle Assessment Consent for pelvic assessment/testing and treatment: Patient was educated regarding pelvic floor physical therapy assessment/treatment which may include pelvic floor and girdle muscle assessment externally or internally (vaginal or rectal approach)., Patient verbalized consent for the above treatment approaches today. Patient understands they have control of the treatment and an opportunity to stop treatment at any time. Pelvic Floor Muscle Assessment: Muscle Dynamics Contracton Pressure: Moderate squeeze, felt all the way around finger surface Duration of Contraction: >3 seconds Recruitment of pelvic floor muscles: Uncoordinated Extra-pelvic muscle activity: Gluteals, Abdominal, Holds breath Range of Motion: Decreased (L side, R side WNL) Ability to Lengthen pelvic floor: No Relaxation Postcontraction: Partial Paradoxical Contraction: Intermittent Involuntary Contraction: No Under-activating during contraction : Left side Breathing Pattern : chest Diaphragmatic Breathing : Fair Pelvic Floor Manual Assessment External Pelvic Region Tenderness/ Hyperactivity - Trunk: Upper abdominals, Lower abdominals Upper abdominals: Bilateral (midline severe tenderness with light palpation) Lower abdominals: Bilateral (mod tension and tenderness throughout) Pelvic Floor Tenderness/Hyperactivity: Tested Rectally in Tested Rectally in : Sidelying Iliococcygeus: Left Puborectalis: Left Pelvic Region Sensation: Grossly Intact LE AROM R LE AROM: grossly WNL L LE AROM: grossly WNL LE Flexibility Flexibility: Hamstring Flexibility R Hamstring Flexibility: mod restriction L Hamstring Flexibility: mod restriction Education: Education Learning Preferences: Demonstration, Explanation, Performance, Printed Materials Barriers: None Learning/educational needs: Home exercise program, Plan of Care, Lifestyle changes, Health promotion Education Provided: Yes, see treatment interventions for education provided Education Provided To: Patient Education Mode/Type: Demonstration, Explanation/Discussion, Literature/Printed Materials, Performance Response to Education/Teach Back: States/Identifies TREATMENT: PT Treatment Interventions: Neuromuscular Re-Education, Self-Alf Management Evaluation Neuromuscular Re-Education: 1: pt edu: POC, HEP, prognosis, PFM anatomy and function 2: *Happy Baby with Pelvic Floor Lengthening - 2 x daily - 7 x weekly - 3 sets - 30-60 hold 3: * Supine or Seated Diaphragmatic Breathing with Pelvic Floor Lengthening - 2 x daily - 7 x weekly - 10 reps 4: pt edu: encouraged walking regimen and healthy bowel habits Skilled Intervention: Skilled judgment used to assess appropriate program for balance and coordination activity. Education and demonstration for posture and positioning for tone management. Reviewed and educated patient on additions/changes for home program as noted above with an (*). Provided written instruction for home program to facilitate proper performance and compliance. Correct performance of home program was facilitated with verbal, visual, and tactile cueing. Patient education as noted. Self-Alf Management: 1: pt edu: 2: - Get To Know Your Pelvic Floor- Female 3: - Pelvic Floor - Constipation Massage BID x 3-5min 4: - Pelvic Floor - Bladder Health & Emptying Techniques 5: - Pelvic Floor - Bowel Movement Education 6: - Pelvic Floor - Bowel Diary, complete prior to next visit Skilled Intervention: Skilled judgment in the selection of proper modification for activity of daily living/home management based on clinical presentation, deficits, and needs. Educated the patient regarding recommendations and provided written instruction to facilitate compliance. Provided written instruction for activities of daily living techniques to facilitate proper performance and compliance. Reviewed and educated patient on additions/changes for home program as noted above with an (*). Provided written instruction for home program to facilitate proper performance and compliance. Correct performance of home program was facilitated with verbal, visual, and tactile cueing. Billing * Evaluation Low Complexity: 1 Unit Neuromuscular Re-Education Treatment Minutes: 23 Self-Care/Home Management Treatment Minutes: 15 Skilled Treatment Time Minutes (timed and untimed codes): 68 Total Session Time (minutes): 68 Session Start Time : 1037 Session Stop Time : 1145 Uguru HEP: Access Code: [email or web address] URL: [email or web address]/ Date: 03/31/2024 Prepared by: Alka Sheppard Exercises - Happy Baby with Pelvic Floor Lengthening - 2 x daily - 7 x weekly - 3 sets - 30-60 hold - Supine or Seated Diaphragmatic Breathing with Pelvic Floor Lengthening - 2 x daily - 7 x weekly -10 reps Patient Education - Get To Know Your Pelvic Floor- Female - cc Pelvic Floor - Constipation Massage BID x 3-5min - cc Pelvic Floor - Bladder Health & Emptying Techniques - cc Pelvic Floor - Bowel Movement Education - cc Pelvic Floor - Winston Stool Chart - cc Pelvic Floor - Bowel Diary Alka Sheppard PT [facility] History of Present illness Narrative* Estrellita Ferreira MD - 03/31/2024 9:35 AM EDT [facility] SMALL BOWEL DISEASES AND NUTRITION FOLLOW UP VISIT: Date of direct communication: 03/31/24 This is a virtual visit. It required patient-provider interaction for the medical decision making as documented below. The patient verbally consented to a Virtual Visit with telephone back up as necessary. I have communicated my name and active licensure. The patient's identity and physical location were verified at the time of this visit. Either the patient or their legal utility sales representative has beeninformed of the risks and benefits of and alternatives to treatment through a remote evaluation andconsents to proceed with the evaluation remotely. Start Time 0935; End Time 10:02 Assessment IMPRESSION: Gisela Turner is a 53 year old female with history of GERD, MDD, Bipolar, prior ED, with abdominal bloating, constipation and pelvic floor dysfunction. Gisela Turner had the opportunity to have all their concerns and questions addressed DIAGNOSTIC ISSUES AND PLAN: #) Bloating/Nausea/GERD Improving drastically with FODMAP restriction diet, working closely with an RD as history of ED andnow reintroducing some FODMAPs. Uses [place] and Zofran PRN The PPI is helpful in her symptoms #) Rectal bleeding Due to hemorrhoids based on history and left colon was clear. Advise for cream topically and courseof Venixxa #) Constipation/ pelvic floor dysfunction Linzess was not effective but in setting of high FODMAP in diet, advise now to retry every day or every other day to help with bowels. She is also starting PT. #) Mesenteric lymphadenopathy Prior CT shows stability, not increasing, VCE and Push was normal, normal pathology as well, likelydue to prior episode of enteritis. No further investigation at this time FOLLOW-UP: 5-6 months with myself may be VV in 30mins. Estrellita Ferreira MD, MSc, FR, CNSC Staff, Department of Gastroenterology, Hepatology & Nutrition [facility] [place] [facility] 03/31/24 PRIMARY PROBLEM: constipation/bloating Last Seen in Clinic on 02/09/24, Where the plan was to arrange scopes and investigations. INTERVAL HISTORY: Today patient states overall she feels okay, she is on the FODMAP diet and has improved the bloating. Working with an RD. She still has some nausea sometimes, no vomiting. States feels hungry and nausea at the same time. Finds mainly at night. Uses zofran PRN, 4mg and finds it is effective but makes her tired. She findsit can be post prandially. Prevacid is helpful, minimal heartburn. Uses Gassex PRN. Started pelvic floor therapy. Bowels are still constipated, she went twice yesterday. Still had a lot of blood in the stools. Around it and lay in the blood, Bright blood. Doesn't pass clots. Painless. Stools were not formed but bristol type 5 but intermittently Winston 1. Took linzess but led to bloating, but was on FODMAP diet. Goes every 2-3 days. CURRENT NUTRITION SUPPORT: FODMAP - restrictive phase right now and it has improved. Weight history: Last 5 Encounter Wt Readings: Date: Wt: 02/20/2024 59 kg (130 lb) 02/09/2024 60.8 kg (134 lb) 08/06/2023 58.5 kg (129 lb) 07/03/2022 60.3 kg (133 lb) 07/26/2021 59 kg (130 lb) CURRENT MEDICATIONS: Current Outpatient Medications Medication Sig Dispense Refill linaCLOtide (LINZESS) 72 mcg capsule Take 1 capsule by mouth once daily. Administer on an empty stomach. Swallow whole; DO NOT crush or chew. 30 capsule 2 estradiol (ESTRACE) 0.01 % (0.1 mg/gram) vaginal cream APPLY A PEA SIZED AMOUNT TO LOWER VAGINA AT BEDTIME TWICE WEEKLY. 43 g 0 ciprofloxacin HCl (CIPRO) 500 mg tablet atorvastatin (LIPITOR) 20 mg tablet promethazine (PHENERGAN) 25 mg tablet dicyclomine (BENTYL) 20 mg tablet estradiol (ESTRACE) 2 mg tablet Take 1 tablet by mouth once daily. 30 tablet 11 aspirin, enteric coated (ASPIRIN, ENTERIC COATED) 81 mg EC tablet Take by mouth. diclofenac, EC, (VOLTAREN) 50 mg EC tablet TAKE 1 TABLET BY MOUTH TWICE DAILY NEEDED for headache meclizine (ANTIVERT) 25 mg tab Meclizine Meclizine Hcl Active 25 MG 3 TIMES DAILY NEEDED October 08, 2018 9:18am 10-08-2018 [facility] ([id number]) ondansetron orally disintegrating (ZOFRAN ODT) 4 mg disintegrating tablet Ondansetron Ondansetron Active 4 MG EVERY 8 HOURS NEEDED January 04, 2020 3:16am 01-04-2020 [facility] ([id number]) traZODone (DESYREL) 50 mg tablet traZODone Trazodone Active 50 MG AT BEDTIME January 03, 2020 10:35pm 01-03-2020 [facility] ([id number]) QUEtiapine (SEROQUEL) 50 mg tablet Take 1 tablet by mouth daily at bedtime. 30 tablet 0 desvenlafaxine ER (PRISTIQ) 50 mg 24 hr tablet Take 1 tablet by mouth once daily. lansoprazole (PREVACID) 30 mg capsule Take 30 mg by mouth once daily. azelastine (ASTELIN,ASTEPRO) 0.1% nasal spray [place] 1 spray into both nostrils twice a day 50 Dexlansoprazole (DEXILANT) 60 mg CpDM Take by mouth. 0 LAMOTRIGINE (LAMICTAL ORAL) Take by mouth once daily. 200 mg daily buPROPion SR (WELLBUTRIN SR) 100 mg 12 hr tablet Take 1 tablet by mouth once daily. 0 No current facility-administered medications for this visit. ALLERGIES: ALLERGIES Allergen Reactions Amoxicillin Hives Bactrim [Sulfametho* Rash Diphenhydramine Other: See Comments Gluten Flour Intolerance Pt reports migraines from flour Moxifloxacin Hives Septra [Sulfamethox* Rash Trileptal [Oxcarbaz* Zomig [Zolmitriptan] Zyprexa [Olanzapine] PAST MEDICAL/SURGICAL HISTORY, SOCIAL HISTORY, AND FAMILY HISTORY: Reviewed and is unchanged aside from the changes documented in HPI. REVIEW OF SYSTEMS: ROS completed and negative outside of the systems documented in the HPI. INVESTIGATIONS: All available pertinent interval investigations were reviewed and were notable for: ENDOSCOPY/PATHOLOGY: 03/10/24- VCE Indication: Mesenteric Lymphadenopathy Capsule reached the cecum but did not leave the colon for duration of this examination Prep quality: Adequate Limited views of the esophagus and stomach were normal Small bowel: normal, no masses, ulcerations or AVMs seen Colon obscured by stool Summary: Normal video endoscopy of the small bowel EGD/[place] 03/11/24 Impression: - Normal esophagus. - Z-line regular, 35 cm from the incisors. - Normal stomach. Biopsied. - Normal duodenal bulb, first portion of the duodenum, second portion of the duodenum, third portion of the duodenum and fourth portion of the duodenum. Biopsied. - Normal examined jejunum. Biopsied. Impression: - Perianal skin tags found on perianal exam. - The examined portion of the ileum was normal. - One 4 mm polyp in the sigmoid colon, removed with a cold snare. Resected and retrieved. - The examination was otherwise normal on direct and retroflexion views. A. Random jejunum, biopsy: - Small bowel mucosa with no significant diagnostic alteration. - No evidence of celiac disease or enteritis. B. Duodenum, biopsy: - Duodenal mucosa with no significant diagnostic alteration. - No evidence of celiac disease or duodenitis. C. Gastric antrum, biopsy: - Antral mucosa with no significant diagnostic alteration. - No morphologic evidence of Helicobacter pylori organisms. D. Gastric body, biopsy: - Oxyntic mucosa with features suggestive of proton pump inhibitor effect. - No morphologic evidence of Helicobacter pylori organisms. E. Sigmoid colon polyp, biopsy: - Hyperplastic polyp. IMAGING: Stiz Markers 03/10 IMPRESSION: Progression of Sitz markers, but with markers remaining in the distal descending and rectosigmoid colon. LAB WORK: Latest Reference Range & Units 02/09/24 11:46 Sodium 136 - 144 mmol/L 141 Potassium 3.7 - 5.1 mmol/L 4.8 Chloride 97 - 105 mmol/L 103 CO2 22 - 30 mmol/L 29 BUN 7 - 21 mg/dL 13 Creatinine 0.58 - 0.96 mg/dL 0.75 Glucose 74 - 99 mg/dL 85 Protein, Total 6.3 - 8.0 g/dL 7.4 Calcium 8.5 - 10.2 mg/dL 9.7 Magnesium 1.7 - 2.3 mg/dL 2.0 Phosphorus 2.7 - 4.8 mg/dL 3.8 Albumin 3.9 - 4.9 g/dL 4.4 Bilirubin, Total 0.2 - 1.3 mg/dL 0.4 Alkaline Phosphatase 34 - 123 U/L 116 ALT 7 - 38 U/L 26 AST 13 - 35 U/L 28 Anion Gap 9 - 18 mmol/L 9 eGFR >=60 mL/min/1.73m 95 Iron 41 - 186 ug/dL 58 TIBC 232 - 386 ug/dL 364 Transferrin Saturation 15.0 - 57.0 % 15.9 Vitamin A 0.30 - 1.20 mg/L 0.51 Vitamin D 25 Hydroxy 31.0 - 80.0 ng/mL 46.3 Prealbumin 17 - 36 mg/dL 21 IgA 70 - 400 mg/dL 336 Gliadin Ab, IgA <20 Units 6 Interpretation (Celiac Screen) No serological evidence of celiac disease, however, if celiac disease is clinically suspected and patient is not on gluten- free diet, histological diagnosis may be considered. HLA testing may help with risk assessment. Gliad Deamidated IgA Qual Negative, Test not Indicated Negative Transglutaminase IgA Abs <4 U/mL <2 Transglutaminase IgA Abs Interpretation Negative Negative Copper 80 - 155 ug/dL 112 Zinc 60 - 120 ug/dL 67 WBC 3.70 - 11.00 k/uL 4.65 RBC 3.90 - 5.20 m/uL 4.71 Hemoglobin 11.5 - 15.5 g/dL 13.4 Hematocrit 36.0 - 46.0 % 40.5 Platelet Count 150 - 400 k/uL 252 Physical Exam: (Limited due to Virtual Visit) LMP 09/13/2013 General: Appears well Neurologic: Awake and alert. Total time of this patient encounter today was >38 mins, including: preparation for visit, direct time with the patient, examination, orders, review of records, and documentation. [facility] Telephone encounter Note * Telephone Encounter - Polina Varela RN - 03/17/2024 3:17 PM EDT Called pt-no answer. LM notifying pt that Mychart msg will be sent. Polina Varela RN [facility]05-01-[facility] Miscellaneous Notes* Telephone Encounter - Polina Varela RN - 03/17/2024 3:17 PM EDT Called pt-no answer. LM notifying pt that Mychart msg will be sent. Polina Varela RN * Telephone Encounter - Polina Varela RN - 03/17/2024 10:49 AM EDT Called pt re: Mychart msg stating pt had blood in her stool. No answer-LMTCB. Polina Varela RN documented in [facility] Telephone encounter Note * Telephone Encounter - Polina Varela RN - 03/17/2024 10:49 AM EDT Called pt re: Mychart msg stating pt had blood in her stool. No answer-LMTCB. Polina Varela RN [facility]04-24-[facility] History of Present illness Narrative* Moraima Jo RN - 03/10/2024 11:54 AM EDT Referring MD: Estrellita Ferreira MD Dx: mesenteric lymphadenopathy Date of Small Bowel Capsule Endoscopy: 10/10/2024 Small bowel capsule endoscopy ingested at 11:35am. [id number] Lot [id number] Exp 11/05/24 Discharge instructions completed and given to patient. Return of Equipment: Fed Ex Elysia Jo RN Capsule Endoscopy Post Ingestion Patient Information Do not eat or drink for two (2) hours after you have swallowed the capsule endoscope. Two (2) hours after you have swallowed the capsule endoscope you may drink clear liquids like coffee and tea (without cream), cola drinks, apple juice, broth, and eat Jell-O or popsicles. Please do not consume anything red in color. You may also return to taking your routine medications. Four (4) hours after you have swallowed the capsule endoscope, you may return to your usual diet. You may return to your normal activities after ingesting the capsule. Please avoid vigorous exercise. You may operate electrical equipment while undergoing your capsule endoscopy. It is not likely thatany household or office equipment will interfere with this examination. You may use cell phones, computers, remote TV appliances, microwaves, MP3 players and digital cameras. Because the capsule endoscopy equipment is somewhat ominous in appearance, we recommend you avoid the airport, bank and government buildings. Many museums use a similar technology for security, it is best to avoid these environments. Avoid other patients also undergoing capsule endoscopy. Although the transmission distance is limited, it is possible that your capsule images could be altered. You may not have an MRI (a test similar to an x-ray that uses magnets in the imaging process) whilethe capsule endoscope remains in your body. Do not schedule a capsule endoscope and an MRI for the same day. Should you require an MRI in the future and you have not seen the capsule evacuated in your stool, discuss this with your physician. An x-ray of your abdomen can show if the capsule has beenevacuated. After 12-15 hours, the examination is complete and you may remove your capsule endoscopy equipment. Loosen the Velcro Belt The equipment will come off in one piece. There is nothing to turn of or take apart. Place all equipment in the box provided. Place the provided adhesive- backed UPS requisition on thebox for return to the main campus. (Retain the top tracking copy of the receipt for your records.) Place the box in the closest UPS SEND box. Please return the completed Patient Satisfaction questionnaire with the equipment The capsule endoscope will pass naturally in your stool. It is not necessary to retrieveor return the capsule. The images are stored in the equipment you have worn on your belt. You may flush the used capsule down the bathroom toilet for disposal. In some instances, patients have passed the capsuleendoscope during stooling while the capsule is still actively blinking . Do not be alarmed if this happens to you. You may dispose of the capsule in the same manner. If you stopped taking your oral Iron for this examination, you may resume taking it as your physician has prescribed. Seek medical assistance if you develop extreme abdominal pain, bloating, fever, nausea and vomiting. These may be signs of obstruction and require medical intervention. During routine business hours you may call: Elysia Jo RN [phone] After Business hours: [phone] and ask for GI [id number] Your capsule endoscopy equipment will be processed at the [place] [facility] the [facility]. If your physician is a [facility] Physician, the results will be available in your electronic chart approximately 3 working days after your procedure. If your physician is NOT a [facility] Physician, a copy of the results will be faxed to his office by the [place] [facility] capsule endoscopy team. documented in this encounterCleveland Clinic [facility]04-19-2024 Miscellaneous Notes* Telephone Encounter - Moraima Jo RN - 03/05/2024 1:23 PM EDT ONE WEEK BEFORE YOUR SMALL BOWEL CAPSULE ENDOSCOPY PROCEDURE: 1.Do not take oral Iron medication for 5-7 days before your procedure. 2. It is not necessary to stop taking anticoagulant medication like Coumadin or Plavix before this test. ONE DAY BEFORE YOUR SMALL BOWEL CAPSULE ENDOSCOPY PROCEDURE The day before your capsule endoscopy procedure, you may have your usual breakfast. After breakfastbegin a clear liquid diet. Do not drink anything red, orange or purple. A clear liquid diet consists of: Coffee (without cream or creamer) Tea (without cream or creamer) Cola drinks Apple juice White Grape juice Lemonade (without pulp) Maycol-Aid (no red, orange or purple) Beef or Chicken Broth Popsicles (no red, orange or purple) Slush Icy Drinks (no red, orange or purple) Jell-O (no red, orange or purple) Jeane Jackie Nothing else to drink after midnight! 2. You may continue your medication as usual the day before your procedure. Do not take any Pepto-Bismol, antacids, Carafate or medication that may coat your stomach and interfere with the capsule pictures. If you are a diabetic, your medication may have to be adjusted to accommodate this preparation. Check with the doctor who monitors your diabetes for further instructions. 3. If you are a male with an abundance of body hair on your abdomen, please shave your abdomen 4 inches above your waist and 4 inches below your waist. THE DAY OF YOUR PROCEDURE 1. The morning of the procedure, you may take your medication with a sip of water before 7am. 2. Do not eat or drink anything before your procedure. 3. Wear loose fitting two- piece clothing to the procedure. Most patients prefer comfortable slacksor sport pants and a shirt or blouse. 4. Do not wear lotions or powders on your abdomen. A nurse will be conducting the capsule endoscopy examination. You will have eight (8) adhesive padsplaced on your stomach. These adhesive pads look much like EKG pads and hold the sensors close to your body. These attach to a box which you will wear in a pouch over your shoulder. You will be askedto swallow a camera capsule. This capsule is about the size of a large vitamin pill. The camera capsule will immediately begin taking pictures. It will continue to move down your gastrointestinal tract in a natural manner capturing images. These images are converted to radio frequency waves and transferred to the electronic box on your side. The pictures are stored in the pocketed data recorder until the end of your procedure. Although the procedure is 12-15 hours long, you will not be requiredto remain at the health care facility while the imaging takes place. After you have ingested the capsule, a nurse will review information regarding your diet, activity and return of equipment. I Elysia Jo RN [phone] [place] [id number] documented in this encounterCleveland Clinic [facility]04-19-2024 Miscellaneous Notes* Telephone Encounter - Moraima Jo RN - 03/05/2024 1:22 PM EDT Telephoned patient with small bowel capsule endoscopy procedure appointment reminder/instructions. Elysia Jo RN documented in this encounterCleveland Clinic [facility]04-18-2024 Instructions* Patient Instructions* Rosie Galloway PA-C - 03/04/2024 3:03 PM EDT 1. Stay hydrated by drinking at least 8 glasses of water per day. This will help to keep your bowelhabits more regular. 2. Continue taking your bowel regimen as prescribed/ Discuss with Dr. Ferreira a good bowel regimen for you to keep your stools soft 3.Try using a squatty potty or foot stool under your feet with bowel movements to promote relaxation of your pelvic floor. 4. Pelvic floor physical therapy. The goal of this therapy is to retrain the pelvic floor muscles to more appropriately relax and therefore improve evacuation of stool. Physical therapy is the most effective way to get the pelvic floor muscles moving and coordinating correctly. Pelvic floor PT was o rdered today, reviewed scheduling process with patient and how to find local therapists. 5. There are no surgical options to improve pelvic muscle coordination. 6. Obstructive defecation/pelvic floor dysfunction handout reviewed and provided to patient. 7. Enemas or suppositories may help to stimulate your bowels to evacuate. If this is successful then it can be repeated daily. 8. Patient was instructed to follow up virtual visit in 3 months after completion of physical therapy and adherence to suggested bowel regimen. 9. Follow up with your referring physician. A copy of your test results will be sent to this physician. Pelvic Floor Physical Therapy has been ordered for you. To make an appointment through [facility] call : [phone] If you are not close to a [facility] location, you can visit any one of these sites. Just [facility] code in and Pelvic Floor Physical Therapy places near you will populate. - [email or web address] - [email or web address] - [email or web address] - [email or web address] documented in this encounterCleveland Clinic [facility]04-18-2024 History and physical note * Rosie Galloway PA-C - 03/04/2024 3:00 PM EDT Images from the original note were not included. PELVIC FLOOR COLON & RECTAL SURGERY Reason for visit: Review anorectal manometry and EMG results History of Present Illness: Gisela Turner is a 53 year old FEMALE who was seen at the request of Dr. Ferreira for anorectal manometry testing, rectal sensation testing and EMG recruitment. Mrs. Turner was referred for testing due to symptoms of constipation. GI Symptoms: Onset of issues: -last 2 years have been worst it has been - where she will end up vomiting if she doesn't have a BM - saw someone in [place] around this time and was placed on Linzess Previous bowels: - always had issues - unsure if she had issues as a child - has progressively gotten worse Stool frequency: can go a little here and there ( not every day), no good bowel movements, can go 6days between Stool type: Type 1: Separate hard lumps, like nuts (hard to pass) Stool straining: excessive straining Incomplete evacuation: Yes, feels like they are not emptying completely Maneuvers: no but will sometimes sit there a while Current bowel regimen:was taking Magnesium but has not taken it the last couple of days Use of enemas or suppositories: -glycerine suppositories once in a great while - some bowel movement with it - can be liquid What medications have you tried in the past? : Linzess ( made things worse, her bowels were not moving) , Bentyl , magnesium citrate, Miralax, suppositories Vaginal/perineal pressure: - will sometimes get a lot of pressure there when she is unable to move her bowels Abdominal pressure/pain: - pressure - gets very distended - in the front of her abdomen can go to the sides - will have some improvement a half hour after a BM then it will swell back up Anorectal pain: no Feelings of prolapse :no Do you have accidental bowel leakage, fecal incontinence, or urgency with bowel movements? no Blood or mucous: - last few Bms had some bright red blood with wiping - no mucous Diet: on FODMAP diet Hx of Surgery: hysterectomy- 2013, D & C, laparoscopy 2012, cholecystectomy Hx of Abuse/trauma/stress: depression and goes to counseling, childhood trauma PMH: GERD, MDD, bipolar, prior eating disorder Previous PFPT:no GI provider: Estrellita Ramone Mother and 2 aunts had large bowel out ( one Aunt had Hirschsprung the others for constipation/ long twisting colon) Prior hysterectomy: Yes Urinary Symptoms: Urinary incontinence: none Urinary frequency: Yes, since a lot of her GI issues happened Obstetric history: 2 Para 2 Vaginal delivery: 2 vaginal births. - Episiotomy: Yes - Tear: Yes - Forceps No Previous Testing Results include: Colonoscopy: Yes Date:02/2024 - random biopsies: No - polyps: Yes Manometry: today Defecography: No Sitz Markers 02/2024: Day 5 IMPRESSION: Progression of Sitz markers, but with markers remaining in the distal descending and rectosigmoid colon. PAST MEDICAL HISTORY Diagnosis Date Abdominal pain, [...] 08/03/2018 TONSILLECTOMY PRIMARY/SECONDARY <AGE 12 08/02/2004 Tonsillectomy Current Outpatient Medications Medication Sig Dispense Refill linaCLOtide (LINZESS) 72 mcg capsule Take 1 capsule by mouth once daily. Administer on an empty stomach. Swallow whole; DO NOT crush or chew. 30 capsule 2 simethicone (MYLICON) 40 mg/0.6 mL oral liquid Take 0.6 mL by mouth four times a day as needed. 30 mL 1 estradiol (ESTRACE) 0.01 % (0.1 mg/gram) vaginal cream APPLY A PEA SIZED AMOUNT TO LOWER VAGINA AT BEDTIME TWICE WEEKLY. 43 g 0 ciprofloxacin HCl (CIPRO) 500 mg tablet atorvastatin (LIPITOR) 20 mg tablet promethazine (PHENERGAN) 25 mg tablet dicyclomine (BENTYL) 20 mg tablet estradiol (ESTRACE) 2 mg tablet Take 1 tablet by mouth once daily. 30 tablet 11 aspirin, enteric coated (ASPIRIN, ENTERIC COATED) 81 mg EC tablet Take by mouth. diclofenac, EC, (VOLTAREN) 50 mg EC tablet TAKE 1 TABLET BY MOUTH TWICE DAILY NEEDED for headache meclizine (ANTIVERT) 25 mg tab Meclizine Meclizine Hcl Active 25 MG 3 TIMES DAILY NEEDED October 08, 2018 9:18am 10-08-2018 [facility] ([id number]) ondansetron orally disintegrating (ZOFRAN ODT) 4 mg disintegrating tablet Ondansetron Ondansetron Active 4 MG EVERY 8 HOURS NEEDED January 04, 2020 3:16am 01-04-2020 [facility] ([id number]) traZODone (DESYREL) 50 mg tablet traZODone Trazodone Active 50 MG AT BEDTIME January 03, 2020 10:35pm 01-03-2020 [facility] ([id number]) QUEtiapine (SEROQUEL) 50 mg tablet Take 1 tablet by mouth daily at bedtime. 30 tablet 0 desvenlafaxine ER (PRISTIQ) 50 mg 24 hr tablet Take 1 tablet by mouth once daily. lansoprazole (PREVACID) 30 mg capsule Take 30 mg by mouth once daily. azelastine (ASTELIN,ASTEPRO) 0.1% nasal spray [place] 1 spray into both nostrils twice a day 50 Dexlansoprazole (DEXILANT) 60 mg CpDM Take by mouth. 0 LAMOTRIGINE (LAMICTAL ORAL) Take by mouth once daily. 200 mg daily buPROPion SR (WELLBUTRIN SR) 100 mg 12 hr tablet Take 1 tablet by mouth once daily. 0 No current facility-administered medications for this visit. ALLERGIES Allergen Reactions Amoxicillin Hives Bactrim [Sulfametho* Rash Diphenhydramine Other: See Comments Gluten Flour Intolerance Pt reports migraines from flour Moxifloxacin Hives Septra [Sulfamethox* Rash Trileptal [Oxcarbaz* Zomig [Zolmitriptan] Zyprexa [Olanzapine] FAMILY HISTORY Problem Relation Age of Onset Arthritis Mother Stroke Mother other (anorexia) Mother Heart Father Arthritis Maternal Grandmother Heart Maternal Grandfather Arthritis Maternal Grandfather Breast Cancer Maternal Aunt Social History Tobacco Use Smoking status: Never Smokeless tobacco: Never Vaping Use Vaping Use: Never used Substance Use Topics Alcohol use: No Drug use: No Physical Exam: There were no vitals filed for this visit. General Appearance: Well appearing, alert, in no acute distress, well-hydrated, well nourished. Anorectal: Perianal skin is intact. No erythema, induration or excoriation. No fissure, fistula or external hemorrhoids. Digital Rectal Exam: Anus: closed Resting tone: NORMAL Squeeze tone: NORMAL Valsalva: pelvic floor relaxation is Abnormal. paradoxic Puborectalis: non tender in Left anterior, Right anterior, Left posterior, and Right posterior to palpation on valsalva Rectocele: Present Full thickness rectal prolapse: No Assessment Anorectal Physiology tests reviewed at today's visit: Reason for testing: constipation and straining to defecate Ileoanal pouch: No Anorectal Manometry Testing: Strength: Anorectal manometry was performed. Average Pressure Interpretation Rest: 53 mmHg This is above normal range. Normal range is 35-50 mmHg. Squeeze: 109 mmHg This is above normal range. Normal range is 75 - 100 mmHg. There is appropriate incremental change between resting and squeeze pressures which can indicate good pelvic floor movement with squeeze. Sensory: Sensation Volume First sensation : 26 mL / Normal Range: 40-80 mL First urge to defecate: 76 mL / Normal Range: 80-120 mL Maximum tolerable volume: 100 mL / Normal Range: 120-180 mL Recto-anal inhibitory reflex: Yes Balloon expulsion: Yes This exhibit hyperacute rectal sensation with at least 2/3 sensory tests. A recto-anal inhibitory reflex (RAIR) was present. This is a normal reflex. EMG Recruitment: EMG recruitment was performed. The patient shows a normal increase in activity with squeeze, and a paradoxic increase in activity with valsalva. This indicates abnormal pelvic floor movement, which can be indicative of poor pelvic floor coordination secondary to pelvic floor non-relaxation / dyssynergia. Clinical correlation is necessary given the discrepancy in findings with balloon expulsion and EMG recruitment.Patient excessively strained the balloon out. Assessment and Plan: Gisela Turner is a 53 year old FEMALE who was referred for anorectal physiology testing due to symptoms of constipation. The testing that was performed today includes anorectal manometry, rectal sensory testing, balloon expulsion and EMG recruitment. These test results were reviewed with Gisela Turner and are listed above. Overall, these tests show abnormal anal sphincter strength, hyperacute rectal sensation, and abnormal pelvic floor movement. After review of the patient's history, physicalexam findings, anorectal manometry and EMG results, the patient may have obstructive defecation dueto non-relaxation of the puborectalis/pelvic floor dyssynergia which could contribute to their symptoms. Recommendations for this include: 1. Stay hydrated by drinking at least 8 glasses of water per day. This will help to keep your bowelhabits more regular. 2. Continue taking your bowel regimen as prescribed/ Discuss with Dr. Ferreira a good bowel regimen for you to keep your stools soft 3.Try using a squatty potty or foot stool under your feet with bowel movements to promote relaxation of your pelvic floor. 4. Pelvic floor physical therapy. The goal of this therapy is to retrain the pelvic floor muscles to more appropriately relax and therefore improve evacuation of stool. Physical therapy is the most effective way to get the pelvic floor muscles moving and coordinating correctly. Pelvic floor PT was o rdered today, reviewed scheduling process with patient and how to find local therapists. 5. There are no surgical options to improve pelvic muscle coordination. 6. Obstructive defecation/pelvic floor dysfunction handout reviewed and provided to patient. 7. Enemas or suppositories may help to stimulate your bowels to evacuate. If this is successful then it can be repeated daily. 8. Patient was instructed to follow up virtual visit in 3 months after completion of physical therapy and adherence to suggested bowel regimen. 9. Follow up with your referring physician. A copy of your test results will be sent to this physician. Rosie Galloway PA-C Pelvic Floor Colorectal Surgery I spent a total of 45 minutes on the date of the service which included preparing to see the patient, [id number] patient care, completing clinical documentation, obtaining and/or reviewing separately obtained history, performing a medically appropriate examination, counseling and educating the pat ient/family/caregiver, ordering medications, tests, or procedures, communicating with other HCPs (not separately reported), independently interpreting results (not separately reported), and communicating results to the patient/family/caregiver. documented in this encounterC[facility]04-11-2024 Miscellaneous Notes* Telephone Encounter - Jihan Espinoza RN - 02/26/2024 8:50 AM EDT Returned call to pt, let her know Dr. Ferreira recommending take a dose/packet of miralax to see if that will help. Pt also said did take her anti nausea med and will try. Jihan Espinoza RN * Telephone Encounter - Jihan Espinoza RN - 02/26/2024 8:18 AM EDT PT called, verified name and . Calling for concerns for has not has a BM in 5 days and N/V worse. Abdomen bloated and firm. Said has taken linzess and some magnesium, does not take miralax for makes her more bloated. Has not yet taken her anti-nausea. Asked if able to get in some fluids and nutrition, said some. Recommended going to ER due to concerns for severe symptoms and will also get back to her after discussion with MD. Jihan Espinoza RN documented in this encounterCleveland Clinic [facility]04-05-2024 Nurse Note* William Bridges RN - 02/20/2024 5:04 PM EDT AMBULATORY PATIENT EDUCATION NOTE TOPIC: GI PROCEDURES: Colonoscopy with or without biopsies based on clinical findings Esophagogastroduodenoscopy(EGD) with or without biopies based on clinical findings, removal of polyps or lesions READINESS TO LEARN INSTRUCTION PROVIDED TO: Patient, readness to learn accessed prior to procedure, Family member, andPatient and family member COGNITIVE ABILITY: Alert and oriented PTED MOTIVATION TO LEARN: Interested FAMILY SUPPORT: None - Unavailable/disinterested IPATIENT LEARNS BEST BY: Individual Instruction Written Instruction - Hand-outs Verbal Instruction FACTORS AFFECTING LEARNING: None PHYSICAL LIMITATIONS AFFECTING LEARNING: None LEARNING RESPONSE METHOD OF INSTRUCTION: Individual instruction PATIENT / FAMILY RESPONSE: Verbalizes understanding of: WORSENING CONDITION- Signs and symptoms of aworsening condition that warrant a call to the physician FOLLOW-UP PLAN: Complete - No need for follow-up SUPPLEMENTAL MATERIAL: Procedure Discharge Instructions REFERRAL (RECOMMENDATION): None Electronically Signed By: William Bridges RN * Araceli Benitez RN - 02/20/2024 2:57 PM EDT PRE OP LEARNING ASSESSMENT PROCEDURE/SURGERY: GI PROCEDURES: Colonoscopy and EGD READINESS TO LEARN COGNITIVE ABILITY: Alert and oriented MOTIVATION TO LEARN: Eager FAMILY SUPPORT: High - Very involved in pt care PATIENT LEARNS BEST BY: Individual Instruction FACTORS AFFECTING LEARNING: None PHYSICAL LIMITATIONS AFFECTING LEARNING: None Electronically Signed By: Araceli Benitez RN In Department: GASTROENTEROLOGY documented in this encounterCleveland Clinic [facility]04-05-2024 Miscellaneous Notes* Sedation Documentation - Can Pradhan RN - 02/20/2024 4:38 PM EDT Colonoscope in * Sedation Documentation - Can Pradhan RN - 02/20/2024 4:35 PM EDT EGD complete documented in this encounterCleveland Clinic [facility]04-05-2024 History and physical note * Delilah Sotelo MD - 02/20/2024 3:00 PM EDT HISTORY AND PHYSICAL Gisela Turner, 53 year old female Current history and physical on file: No Is a new History and Physical required for today's visit? Yes Indication for procedure: Constipation, bloating/malabsorption PROCEDURE(S) SCHEDULED FOR: Colonoscopy with or without biopsies and with or without removal of polyps or lesions, dilation (any means), treatment of bleeding (any means), based on clinical findings. , EGD (Esophagogastroduodenoscopy) with or without biopsies, removal of polyps or lesions, dilation ( any means), treatment of bleeding ( any means), Barrx treatment of Jack's Esophagus, image tube placement or cryo therapy treatment based on clinical findings. , and Push endoscopy BASELINE BEHAVIOR: Calm BASELINE ORIENTATION: A & O x3 All medications and allergies reviewed: Yes Skin Assessment: Warm dry mucus membranes pink Airway/Respiratory Assessment: Airway: visualization of the uvula- Yes Mouth: opening greater than 2 fingerbreadths- Yes Neck: full range of motion- Yes Breath sounds clear/equal- Yes Cardiac Assessment: Regular rate and rhythm without murmur Abdominal Assessment: Abdomen soft, non-tender, no masses or organomegaly. Sedation Plan: Moderate Additional Comments: None Delilah Sotelo MD documented in this encounterCleveland Clinic [facility]04-03-2024 History of Present illness Narrative* Sherry Barry RT(R) - 02/18/2024 2:40 PM EDT Radiology Service Progress Note PATIENT NAME: Gisela Turner DATE OF SERVICE: February 18, 2024 TIME: 2:42 PM PATIENT IDENTITY VERIFICATION COMPLETED USING TWO (2) IDENTIFIERS: Name and Date of confirmedby patient verbally. FALL SCREENING: Has the patient had 2 falls in the last year or 1 fall with injury or currently using an Ambulatory Assistive Device (Walker, Cane, Wheelchair, Crutches, etc.)? No PATIENT GENDER DATA: Female. status: : No status: NO. PATIENT RELEVANT IMPLANT DATA REVIEWED: Yes PATIENT PRESENTS WITH AN IMPLANTABLE OR ATTACHED WEATHER ALGORITHM SCIENTIST: No RADIOLOGY DEPARTMENT: General X-ray: Exam(s) Completed: Abdomen X-Ray: Abdomen PERIPHERAL IV DATA: Not applicable SIGNED BY: RT Price(R) February 18, 2024 2:42 PM documented in this encounterCleveland Clinic [facility]04-01-2024 History of Present illness Narrative* Aparna Luna RT(R) - 02/16/2024 11:50 AM EDT Radiology Service Progress Note PATIENT NAME: Gisela Turner DATE OF SERVICE: February 16, 2024 TIME: 11:56 AM PATIENT IDENTITY VERIFICATION COMPLETED USING TWO (2) IDENTIFIERS: Name and Date of confirmedby patient verbally. FALL SCREENING: Has the patient had 2 falls in the last year or 1 fall with injury or currently using an Ambulatory Assistive Device (Walker, Cane, Wheelchair, Crutches, etc.)? No PATIENT GENDER DATA: Female. status: : No status: NO. PATIENT RELEVANT IMPLANT DATA REVIEWED: Yes PATIENT PRESENTS WITH AN IMPLANTABLE OR ATTACHED WEATHER ALGORITHM SCIENTIST: No RADIOLOGY DEPARTMENT: General X-ray: Exam(s) Completed: Abdomen X-Ray: Abdomen PERIPHERAL IV DATA: Not applicable SIGNED BY: RT Peng(R) February 16, 2024 11:56 AM documented in this encounterCleveland [facility]03-28-2024 Miscellaneous Notes* Letter - Coordinator, Mammography - 02/12/2024 2:00 PM EDT February 13, 2024 PID: [id number] Gisela Turner [id number] [place] [id number] Dear Ms. Turner, We are pleased to inform you that the results of your recent breast imaging exam on 02/12/2024 are normal. Early detection of cancer is very important. We also understand recommendations regarding breast cancer screening are controversial. Please discuss with your primary care provider which strategy is best for you and whether a mammogram is right for you. Your imaging studies and report will be kept on file at [facility] as part of your permanent medical record and are available for your continuing care. Thank you for allowing us to help in meeting your health care needs. Sincerely, Dr. Dietz Interpreting Radiologist [facility] (Normal over 40) documented in this encounterCleveland Clinic [facility]03-25-2024 History of Present illness Narrative* Marc Oreilly RT(R) - 02/09/2024 3:00 PM EDT Radiology Service Progress Note PATIENT NAME: Gisela TAYLORN: [id number] DATE OF SERVICE: February 09, 2024 TIME: 11:33 AM PATIENT IDENTITY VERIFICATION COMPLETED USING TWO (2) IDENTIFIERS: Name and Date of confirmedby patient verbally. FALL SCREENING: Has the patient had 2 falls in the last year or 1 fall with injury or currently using an Ambulatory Assistive Device (Walker, Cane, Wheelchair, Crutches, etc.)? No PATIENT GENDER DATA: Female. status: : No status: NO. PATIENT RELEVANT IMPLANT DATA REVIEWED: Not Applicable PATIENT PRESENTS WITH AN IMPLANTABLE OR ATTACHED WEATHER ALGORITHM SCIENTIST: No RADIOLOGY DEPARTMENT: General X-ray: Exam(s) Completed: Abdomen X-Ray: Abdomen PERIPHERAL IV DATA: Not applicable SIGNED BY: RT Isrrael(R) February 09, 2024 11:33 AM documented in [facility] Miscellaneous Notes* Telephone Encounter - Jihan Espinoza RN - 02/09/2024 1:[address] Ferreira ordered sitz marker study for pt, wants her to take sitz marker capsule and then get xray on day 3 and day 5 after taken. Called pt to ask if still here a Main, has gone home so will mail her capsule and then explain details of when to get xray. Jihan Espinoza RN [facility] this [facility]03-25-[facility]24 Miscellaneous Notes* Addendum Note - Estrellita Ferreira MD - 02/09/2024 1:16 PM EDTAddended by: ESTRELLITA FERREIRA on: 02/09/2024 01:16 PM Modules accepted: Orders documented in this [facility]03-25-2024 Instructions* Patient Instructions* Estrellita Ferreira MD - 02/09/2024 10:55 AM EDT Images from the original note were not included. Bowel Preparation Instructions for: Golytely, Nulytely, Trilyte or Colyte (polyethylene glycol 3350and electrolytes) IF YOU DO NOT FOLLOW THESE DIRECTIONS, YOUR COLONOSCOPY WILL BE CANCELLED. Baeza Instructions: Your bowel must be empty so that your doctor can clearly view your colon. Follow all of the instructions in this handout EXACTLY as they are written. Do NOT eat any solid food the ENTIRE day before your colonoscopy. Drink only clear liquids. Buy your bowel preparation at least 5 days before your colonoscopy. TRANSPORTATION on the Day of Your Exam A responsible person MUST be present with you at Check In prior to your colonoscopy and REMAIN in the endoscopy area until you are discharged. You are NOT ALLOWED to drive, take a taxi or bus, or leave the Endoscopy Center ALONE. If you do not have a responsible public transit trolley driver (family member or friend) with you to take you home, your exam cannot be done with sedation and will be cancelled. Please bring a list of all of your current medications, including any Over-the Counter medications with you. Medications If you take insulin, diabetic medications or blood thinners such as Coumadin (warfarin), Plavix (clopidogrel), Ticlid (ticlopidine hydrochloride), Agrylin (anagrelide), Xarelto (Rivaroxaban), Pradaxa(Dabigatran), Eliquis (Apixaban), and Effient (Prasugrel). You MUST call the doctors who orders those medicines for instructions on altering the dosage before your colonoscopy. All other medications should be taken the day of the exam with a sip of water including ASPIRIN. Five (5) Days Before Your Colonoscopy Do NOT take medicines that stop diarrhea - such as Imodium, Kaopectate, or Pepto Bismol. Do NOT take fiber supplements - such as Metamucil, Citrucel, or Perdiem. Do NOT take products that contain iron - such as multi-vitamins (the label lists what is in the products). Do NOT take Vitamin E. Buy the prescription bowel preparation solution at your local pharmacy or drugstore pharmacy. 10/2019 Bowel Preparation Instructions for: Golytely, Nulytely, Trilyte or Colyte (polyethylene glycol 3350and electrolytes) Three (3) Days Before Your Colonoscopy Do NOT eat high-fiber foods - such as popcorn, beans, seeds (flax, sunflower, quinoa), multigrain bread, nuts, salad/vegetables, or fresh and dried fruit. One (1) Day Before Your Colonoscopy Only drink clear liquids the ENTIRE DAY before your colonoscopy. Do NOT eat any solid foods. Drink at least 8 ounces of clear liquids every hour after waking up. The clear liquids you can drink include: Clear Liquid (NO RED LIQUIDS) DO NOT DRINK Gatorade, Pedialyte or Powerade Clear broth or bouillon Coffee or tea (no milk or non-dairy creamer) Carbonated and non-carbonated soft drinks Maycol-Aid or other fruit flavored drinks Strained fruit juices (no pulp) Jell-O, popsicles, hard candy Water Alcohol Milk or non-dairy creamers Noodles or vegetables in soup Juice with pulp Liquid you cannot see through Do not use tobacco/vaping products The bowel preparation solution will be consumed in two parts. Mix the solution the evening before your colonoscopy and refrigerate before drinking. You may add the flavor pack that came with the bowel preparation. Do NOT add ice, sugar or any other flavorings to the solution. Part 1 (Drink 1st half of the prep) At 6:00 PM - Evening before your colonoscopy Drink an 8-oz glass of bowel preparation every 10 minutes for a total of 8 glasses. You may continue to drink clear liquids until midnight. Part 2 (Drink second half of prep 4.5 hours before scope) On the day of your colonoscopy you may drink clear liquids up to (three) 3 hours before your procedure. 4 1/2 hours before your colonoscopy Drink an 8-oz glass of bowel preparation every 10 minutes for a total of 8 glasses. Fifteen (15) minutes later, drink an 8-oz glass of clear liquids every 15 minutes for a total of 2 glasses. You may continue to drink clear liquids up to (three) 3 hours before your exam. 2 10/2019 documented in this encounterC[facility]03[facility] History of Present illness Narrative* Estrellita Ferreira MD - 02/09/2024 10:00 AM EDT [facility] SMALL BOWEL DISEASES AND NUTRITION NEW ENCOUNTER Date of direct communication: 02/09/24 Assessment IMPRESSION: Gisela Turner is a 53 year old female with history of GERD, MDD, Bipolar, prior ED, with abdominal bloating, constipation and question of malabsorption. Seen in consultation. Gisela Turner had the opportunity to have all their concerns and questions addressed DIAGNOSTIC ISSUES AND PLAN: #) Nutritional Status Malabsorption? Weight is stable, the LN on CT is non specific and likely due to viral, reassuringly has not increased over the years, will arranged for Push enteroscopy with samples to reassess. Will screen for micronutrients today. Is following an RD, with history of ED, encourage to be aware of some FODMAPs and adjust rather than fully restrict diet further #) Bloating/constipation Low rectal tone on rectal examination, will arrange for Sitz marker test, manometry and repeat colonoscopy Trial of lower dose linzess and simethicone and diaphragmatic breathing to help. FOLLOW-UP: at the time of endoscopy Estrellita Ferreira MD, MSc, FRPC, CNSC Associate Staff, Department of Gastroenterology, Hepatology & Nutrition [facility] [place] 02/09/24 REFERRING PROVIDER: Hussain Bhatia MD [address] [place] [id number] My final recommendations will be communicated back to the requesting physician by way of shared Medical record or letter to requesting physician via [place] mail. REASON FOR REFERRAL: severe bloating HISTORY: Gisela Turner is a 53 year old female with history of GERD, MDD, Bipolar, prior ED, with abdominalbloating, constipation and question of malabsorption. Seen in consultation. States overall she is not feeling better and not getting any answers and that has been frustrating. Initially has raw feeling or GERD and constipation- colonoscopy demonstrated redundant bowel. She has ongoing issues with Constipation. Noted that her mother and aunts had constipation with colectomy. She feels bloated and uncomfortable. Noted she last felt normal, bloating and intermittent constipation- but not to this degree since August 2023. Prior to that would have episodes would intermittent, no clear triggers. Noted in the summer had a lot of nausea and vomiting. Was doing relatively well, started in August had some nausea, noted went to a shower and had some food that didn't sit well with her. No one at the shower was sick. Was placed on linzess again but had a lot of bloating and cramping and started on Bentyl but did not help. Currently she has bowel movements every couple days, some times 4 days. Last bowel movement was yesterday, soft, mucus noted, no hemorrhoid, went twice, small tiny pellet and next was soft and smooth. Has cramping with bowel. No finger manipulation. Does not feel empties, no incontinence. Magnesium citrate every day- 1 tab. Other than linzess, has tried miralax, suppositories, not effective. Not taking linzess, was on the 290mcg. Takes Prevacid once a day, will have heartburn off it. No dysphagia. Teeth/chewing okay. Notes her bloating is constant, waking up with it. No belching, minimal gas from below. Has had bladder issues. Sensation with need of urgency. Water can make her nausea, has multiple urine a day that is clear. Feels hydrated. Two pregnancies- 6, 1. Epiostimies. Hysterectomy Minimal swelling in legs at the end of the day. No chest pain or SOB. Nausea is intermittent, will have an appetite. Around the time of bowel movements. Does take too much for nausea. Constipation high dose of linzess led to abdominal cramping Recently went down on vacation- end of December- watching dairy. Year before [facility] sick[facility] Non smoker, no alcohol, no cannabis, herbal supplements. No family history of Celiac disease Many family members have constipation. CURRENT NUTRITION SUPPORT: Has tried gluten free, bland, and FODMAP. Works with a dietitian, concerns with prior eating disorder- restrictive, outpatient program. Feelsit is pretty good right now. Talked about FODMAP. Eating twice a day. Weight history:Last 10 Encounter Wt Readings: Date: Wt: 02/09/24- 134lbs 08/06/2023 58.5 kg (129 lb) 07/03/2022 60.3 kg (133 lb) 07/26/2021 59 kg (130 lb) 07/03/2021 58.5 kg (129 lb) 05/18/2021 59 kg (130 lb) 03/27/2021 61.1 kg (134 lb 9.6 oz) 05/10/2020 59.4 kg (131 lb) 10/17/2018 57.6 kg (126 lb 15.8 oz) 07/17/2018 57.2 kg (126 lb) 12/31/2017 54.4 kg (120 lb) Current Outpatient Medications Medication Sig estradiol (ESTRACE) 0.01 % (0.1 mg/gram) vaginal cream APPLY A PEA SIZED AMOUNT TO LOWER VAGINA AT BEDTIME TWICE WEEKLY. atorvastatin (LIPITOR) 20 mg tablet dicyclomine (BENTYL) 20 mg tablet estradiol (ESTRACE) 2 mg tablet Take 1 tablet by mouth once daily. aspirin, enteric coated (ASPIRIN, ENTERIC COATED) 81 mg EC tablet Take by mouth. diclofenac, EC, (VOLTAREN) 50 mg EC tablet TAKE 1 TABLET BY MOUTH TWICE DAILY NEEDED for headache ondansetron orally disintegrating (ZOFRAN ODT) 4 mg disintegrating tablet Ondansetron Ondansetron Active 4 MG EVERY 8 HOURS NEEDED January 04, 2020 3:16am 01-04-2020 [facility] ([id number]) traZODone (DESYREL) 50 mg tablet traZODone Trazodone Active 50 MG AT BEDTIME January 03, 2020 10:35pm 01-03-2020 [facility] ([id number]) QUEtiapine (SEROQUEL) 50 mg tablet Take 1 tablet by mouth daily at bedtime. desvenlafaxine ER (PRISTIQ) 50 mg 24 hr tablet Take 1 tablet by mouth once daily. lansoprazole (PREVACID) 30 mg capsule Take 30 mg by mouth once daily. Dexlansoprazole (DEXILANT) 60 mg CpDM Take by mouth. LAMOTRIGINE (LAMICTAL ORAL) Take by mouth once daily. 200 mg daily buPROPion SR (WELLBUTRIN SR) 100 mg 12 hr tablet Take 1 tablet by mouth once daily. ciprofloxacin HCl (CIPRO) 500 mg tablet promethazine (PHENERGAN) 25 mg tablet meclizine (ANTIVERT) 25 mg tab Meclizine Meclizine Hcl Active 25 MG 3 TIMES DAILY NEEDED October 08, 2018 9:18am 10-08-2018 [facility] ([id number]) azelastine (ASTELIN,ASTEPRO) 0.1% nasal spray [place] 1 spray into both nostrils twice a day No current facility-administered medications for this visit. ALLERGIES Allergen Reactions Amoxicillin Hives Avalox [Other] Bactrim [Sulfametho* Rash Diphenhydramine Other: See Comments Gluten Flour Intolerance Pt reports migraines from flour Septra [Sulfamethox* Rash Trileptal [Oxcarbaz* Zomig [Zolmitriptan] Zyprexa [Olanzapine] PAST MEDICAL HISTORY Diagnosis Date Abdominal pain, [...] 08/03/2018 TONSILLECTOMY PRIMARY/SECONDARY <AGE 12 08/02/2004 Tonsillectomy Social History Tobacco Use Smoking status: Never Smokeless tobacco: Never Vaping Use Vaping Use: Never used Substance Use Topics Alcohol use: No Drug use: No FAMILY HISTORY Problem Relation Age of Onset Arthritis Mother Stroke Mother other (anorexia) Mother Heart Father Arthritis Maternal Grandmother Heart Maternal Grandfather Arthritis Maternal Grandfather Breast Cancer Maternal Aunt REVIEW OF SYSTEMS: Complete ROS performed and negative outside of the systems documented in the HPI. INVESTIGATIONS: All available pertinent interval investigations were reviewed and were notable for: ENDOSCOPY/PATHOLOGY: EGD colo 2021- [place] Grade A esophagitis, gastritis, focal intestinal metaplasia, colon normal redundant, melanosis coli and TA in ascending colon EGD 08.17.[address] Osito Richter for suspected esophageal reflux. [place] Grade A esophagitis. Diffuse mildly erythematous mucosa without bleed in gastric antrum. Food residue in greater curvature of stomach. IMAGING: CT 10/2023 FINDINGS: The visualized lung bases are unremarkable. The visualized portions of the heart are within normal limits. Normal liver. There is non-visualization of the gallbladder, which may be secondary to either contraction or a prior cholecystectomy. Normal spleen. Normal pancreas. Normal bilateral adrenal glands. Normal right kidney. Normal left kidney. Normal visualized stomach. Small lymph nodes and edema within the small bowel mesentery suggestive of gastroenteritis or mesenteric adenitis. Normal colon. The appendix is visualized and appears normal. Normal abdominal aorta. Normal inferior vena cava. Normal retroperitoneum. Normal urinary bladder. Normal abdominal wall. Normal osseous structures. CT/Abdomen/Pelvis W IV Cont ONLY IMPRESSION: Suspect recurrent gastroenteritis or mesenteric adenitis. Upper GI SBFT 10.16.22 unremarkable. US abd and elastography 01.08.22 liver measurement 15.3cm with fatty infiltration and liver stiffness of 5.4kPa F1. CT abd/pel 12.14.21 found scattered diverticula throughout colon without evidence of inflammation. [place] mesentery within central mesentery of peritoneum, query mesenteric panniculitis. Mild circumferential wall thickening of urinary bladder, query cystitis. Gastric emptying study 10.3.19 with normal results at 46.26 minutes (normal 12-56). LAB WORK: 12/10 Protein 7.7 Lytes normal Creatinine normal Hbg 13.2 Alk phos 106 ALT 40 AST 26 Celiac testing was negative? Report not seen PHYSICAL EXAM: BP 149/86 Pulse 90 Ht 160 cm (5' 3) Wt 60.8 kg (134 lb) LMP 09/13/2013 SpO2 100% BMI 23.74 kg/m Body mass index is 23.74 kg/m . Constitutional: Healthy and well developed HEENT: No icterus. Dentition in tact. Moist mucus membranes. Neck: No lymphadenopathy. No major masses Resp: Normal resp effort. Clear air entry with no crackles or wheezes CVS: PPP bilat. Normal S1 and S2 Abdo: Distended, surgical scars noted but non tender VIET: low tone no masses and skin tags noted. Extr: muscle bulk: preserved and subQ fat: preserved. No edema. Skin: Warm and dry. No rash. Nails intact Neuro: A&O, normal gait. Psych: Normal affect and memory. Total time of this patient encounter today was >65 mins, including: preparation for visit, direct time with the patient, examination, orders, review of records, and documentation. documented in this [facility] Miscellaneous Notes* Telephone Encounter - Kateryna Villagomez RN - 01/28/2024 8:40 AM EDT Last seen 08/06/2023 by RR documented in this encounterC[facility]-2024 Miscellaneous Notes* Telephone Encounter - Jihan Espinoza RN - 12/24/2023 12:14 PM EST Message forwarded on 12/23 from call center, pt had called requesting appt for intestinal malabsorption. Noted that on 12/16/23 referral for Dx was faxed from Dr. Hussain Bhatia with [facility]. Attempted to call pt, got identified VM and left message asking for return call. Jihan Espinoza RN documented in this encounterC[facility]12-14-2023 Discharge summary Author Harpal Pollack [facility] October 30, 2023 7:21pm Note Date/Time October 30, 2023 4:57pm [facility] Medical Records Department [address] [place] [address] Emergency Department Summary 10/30/23 MR#: [id number] Acct: [id number] Name: GISELA TURNER Rep #:[id number] : 1970 53 From: Harpal Pollack MD PCP: Dr. Sumanth Krause MD Status:RE G ER Location: ED HPI HPI - GI History of Present Illness Chief Complaint: Abd Pain Informant: patient Narrative Narrative: Patient presents with abdominal distention and some discomfort. Patient has been having problems with very frequent urination for several months. She has been seeing urology for this. No indication of UTIs. They have been trying different medications for this. She stated that about a month to month and a half ago she was at a democrat. She ended up vomiting. She states ever since then she feels as though her stomach is been somewhat bloated. She has not been vomiting though. She has been eating and drinking. She has constipation but that is a chronic longstanding issue but it does seem like its gotten worse in the last month. She saw her urologist again and they felt that some of her urinary issues may be from bladder compression from another source. They were trying to get a CAT scan as an outpatient. Patient states in the last24 hours her abdomen is really gotten notably distended. She states she had some mild distention before but now it feels markedly distended. She states it feels like she is about 4 months . She has had hysterectomy and cholecystectomy before. Last moved her bowels about 2 or 3 days ago. No blood. She states when she eats it feels like she gets more distended but she is not getting nausea or vomiting. No fevers at any time. No weight loss. No historyof alcohol use. No history of obstructions. She was once told she has a fattyliver but no specific treatment was initiated. [facility] Medical History Anorexia Anxiety Bipolar disease, chronic Cardiology follow-up encounter Cervical radiculopathy COVID-19 virus detected (08/29/20) Degenerative disc disease, cervical Depression Elevated troponin level Epigastric abdominal pain Fatty liver Frequent headaches GERD (gastroesophageal reflux disease) History of diverticulitis History of echocardiogram History of edema Non-smoker Nonobstructive atherosclerosis of coronary artery NSTEMI, initial episode of care (10/07/21) Shortness of breath on exertion Vertigo Home Medications desogestrel-e.estradiol 0.15 mg-0.02 mg(21)/e.estrad 0.01 mg(5) tablet 2 mg PO DAILY 08/25/13 [History Last Taken 10/29/21] quetiapine 25 mg tablet 50 mg PO QHS 10/07/18 [History Last Taken 10/29/21] bupropion HCl 100 mg tablet 100 mg PO DAILY 08/09/19 [History Last Taken 10/29/21] trazodone 50 mg tablet 50 mg PO QHS 01/03/20 [History Last Taken 10/29/21] desvenlafaxine succinate 25 mg tablet,extended release 24 hr (Pristiq) 50 mg PO DAILY 04/14/21 [History Last Taken 10/29/21] lamotrigine 200 mg tablet (Lamictal) 200 mg PO QHS 04/14/21 [History Last Taken 10/29/21] aspirin 81 mg tablet,delayed release (Adult Aspirin Regimen) 81 mg PO DAILY #30 tabs 10/08/21 [Rx Last Taken 10/29/21] atorvastatin 20 mg tablet 20 mg PO DAILY #90 tabs 01/16/23 [Rx Last Taken Unknown] lansoprazole 30 mg capsule,delayed release 30 mg PO DAILY #60 caps 09/11/23 [Rx Last Taken Unknown] ondansetron 4 mg disintegrating tablet 4 mg PO Q8H PRN PRN Nausea #10 tabs 10/30/23 [Rx Last Taken Unknown] Allergy/AdvReac Type Severity Reaction Status Date / Time verapamil Allergy Mild Rash Verified 07/17/23 14:08 amoxicillin [Amoxicillin] Allergy Hives Verified 07/17/23 14:08 sulfamethoxazole Allergy Rash Verified 07/17/23 14:08 [From Septra] trimethoprim [From Septra] Allergy Rash Verified 07/17/23 14:08 diphenhydramine AdvReac Other Verified 07/17/23 14:08 [From Benadryl] moxifloxacin [From Avelox] AdvReac NEEDS Verified 07/17/23 14:08 FOLLOW-UP olanzapine [From Zyprexa] AdvReac Unknown Verified 07/17/23 14:08 oxcarbazepine AdvReac Unknown Verified 07/17/23 14:08 [From Trileptal] sumatriptan [From Imitrex] AdvReac Other Verified 07/17/23 14:08 zolmitriptan [From Zomig] AdvReac Unknown Verified 07/17/23 14:08 Family History Mother CVA (cerebral vascular accident) Surgical History History of carpal tunnel release History of cholecystectomy History of hysterectomy History of left heart catheterization (10/08/21) History of nasal septoplasty History of tonsillectomy and adenoidectomy Social History household members: spouse Smoking Status: Never smoker alcohol intake: never substance use type: does not use ROS ROS ED ROS Narrative A complete review of systems was performed and is negative except as documented in the history of present illness. Some specific details below. Constitutional: No recent fevers or chills. EYE: No visual complaints or pain. No cough or change. ENT: No difficulty swallowing. No swelling. No pain. No GERD symptoms. CV: No chest pain or palpitations. Respiratory: No dyspnea. No hemoptysis. No difficulty taking breaths. GI: Please see history of present illness. : No frequency dysuria or hematuria. Musculoskeletal: No recent trauma. No pains. Skin: No rash. Nondiaphoretic. Neuro: No weakness or numbness. Endocrine: No polyuria or polydipsia. EXAM Physical Exam Narrative Exam Narrative: CONSTITUTIONAL: Patient is nontoxic in appearance. The patient looks comfortable. HEENT: No notable trauma. Mucous membranes minimally dry.. No sinus tenderness. No indication of pain with swallowing. EYES: No conjunctival injection. No icterus. CARDIOVASCULAR: Regular rate. Regular rhythm. No notable murmur. No JVD. RESPIRATORY: No respiratory distress. Breathing is unlabored. No wheezes. No rhonchi. No rales. No pain with a deep breath. GASTROINTESTINAL: Patient's abdomen does look genuinely distended especially compared to her overall body habitus. But I do not feel a fluid wave. Her bowel sounds are normal to slightly increased. She has mild nonfocal tendernessbut no rebound or guarding. GENITOURINARY: No tenderness over the bladder. No CVA tenderness. MUSCULOSKELETAL: Atraumatic. No peripheral edema. No cord. No tenderness along the deep venous system. No asymmetry. NEUROLOGICAL: Patient is alert and appropriate. No focal deficit noted. SKIN: No noted rashes. No diaphoresis. PSYCHIATRIC: Patient is calm. Mood is appropriate. Const Vital Signs: 10/30/23 16:38 10/30/23 16:52 Temperature 98.3 F Temperature Source Temporal Pulse Rate 94 94 Respiratory Rate 14 Blood Pressure 168/101 H 159/84 H Blood Pressure Mean 123 109 Pulse Ox 100 99 Oxygen Delivery Method Room Air Room Air MDM MDM MDM Narrative Medical decision making narrative: My independent interpretation of the patient's CT of the abdomen shows some stool throughout the colon but no obvious distention. No obstruction. I do notsee any masses. Final reading is suspicious for gastroenteritis versus mesenteric adenitis. CBC is normal. Patient's electrolytes are normal. Patient's glucose was mildly elevated 135. Patient's liver function test were normal other than alkaline phosphatase at 119which is a minimal elevation. Patient's lipase is normal at 27. Patient's lactic acid is normal at 5 5. Patient is urine that shows no sign of acute infection. Patient is still eating and drinking. I do not think she needs to be admitted. We did discuss that if this is mesenteric adenitis this will usually last about a week. But she does also have a history of chronic constipation, has not movedher bowels in 3 or 4 days and I think there is a component of this causing the distention. We will get her Dulcolax. She just started MiraLAX yesterday and Itold her she should stay on this. If she develops fever, further distention, pain, recurrent vomiting or other issues she should return. I will write from his [place] as a as needed basis in case she develops some nausea Lab Data Attestation: I reviewed the patient's lab results. Labs: Laboratory Results - last 24 hr 10/30/23 10/30/23 16:55 17:00 WBC 4.6 RBC 4.60 Hgb 13.0 Hct 39.4 MCV 85.7 MCH 28.3 MCHC 33.0 RDW Std Deviation 36.3 RDW Coeff of Stella 11.8 Plt Count 260 MPV 8.6 Immature Gran % (Auto) 0.200 Neut % (Auto) 31.9 L Lymph % (Auto) 55.1 H Hendricks % (Auto) 8.7 Eos % (Auto) 2.8 Baso % (Auto) 1.3 H Absolute Neuts (auto) 1.5 L Absolute Lymphs (auto) 2.53 Nucleated RBC % 0 Sodium 138 Potassium 3.8 Chloride 102 Carbon Dioxide 31.0 Anion Gap 5 BUN 11 Creatinine 0.79 Estim Creat Clear Calc 68.13 Est GFR (MDRD) Af Amer 98 Est GFR (MDRD) Non-Af 81 BUN/Creatinine Ratio 14.0 Glucose 135 H Lactic Acid 1.5 Calcium 8.6 Total Bilirubin 0.40 AST 25 ALT 35 Alkaline Phosphatase 119 H Total Protein 7.8 Albumin 3.7 Globulin 4.1 Albumin/Globulin Ratio 0.9 Lipase 27 Urine Color Yellow Urine Clarity Clear Urine pH 6.0 Ur Specific [place] 1.015 Urine Protein Negative Urine Glucose (UA) Normal Urine Ketones Negative Urine Occult Blood Negative Urine Nitrite Negative Urine Bilirubin Negative Urine Urobilinogen Normal Ur Leukocyte Esterase Negative Urine RBC 0-5 SEEN Urine WBC 0-5 SEEN Ur Squamous Epith Cells 5-10 SEEN Urine Bacteria 0 SEEN Urine Mucus 0 SEEN Radiography Diagnostic Testing: Clinical Impression(s) from Imaging Studies Abdomen/Pelvis CT 10/30/23 16:52 IMPRESSION: Suspect recurrent gastroenteritis or mesenteric adenitis. Electronically Signed: Shankar Marshall MD at 18:50 EST , Discharge Plan Triage Chief Complaint: Abd Pain ED Provider: Harpal Pollack Dx/Rx/DC Orders Clinical Impression: Abdominal distension, Mesenteric adenitis, Constipation Instructions: ED Abdominal Pain Unkn Cause Fem, ED Constipation (Adult) Prescriptions: New ondansetron [ondansetron] 4 mg tablet,disintegrating 4 mg PO Q8H PRN PRN (Reason: Nausea) Qty: 10 0RF No Action atorvastatin 20 mg tablet 20 mg PO DAILY Qty: 90 3RF desog-e.estradiol/e.estradiol 1 EACH tablet 2 mg PO DAILY Patient Comments: hormones bupropion HCl 100 mg tablet 100 mg PO DAILY Patient Comments: mood quetiapine 25 MG tablet 50 mg PO QHS trazodone 50 MG tablet 50 mg PO QHS lamotrigine [Lamictal] 200 mg tablet 200 mg PO QHS Patient Comments: take 1 tablet by mouth once daily desvenlafaxine succinate [Pristiq] 25 mg tablet extended release 24 hr 50 mg PO DAILY Patient Comments: take 1 tablet by mouth once daily aspirin [Adult Aspirin Regimen] 81 mg tablet,delayed release (DR/EC) 81 mg PO DAILY Qty: 30 1RF lansoprazole 30 mg capsule,delayed release(DR/EC) 30 mg PO DAILY Qty: 60 1RF Primary Care Provider: Sumanth Krause Referrals: Sumanth Krause MD [Primary Care Provider] - 3-5 Days Disposition Disposition: Home, Self Care What to do if you have Problems For any increased pain, shortness of breath, bleeding, nausea or vomiting, chestpain, or any unexpected problems, contact your Primary Care Provider. Call [facility] ([phone]) or report to the closest Emergency Room. Call 911 if necessary. 10/30/231920 <Electronically signed by Harpal Pollack MD> Cosigner Signature (if applicable): CC: Dr. Sumanth Krause MD ~ Signed [facility] Work Phone: 1(843) 780-364110-16-2023 Miscellaneous Notes* Telephone Encounter - Estrellita Simons RN - 09/01/2023 9:54 AM EDT Patient notified and voiced understanding of information and instructions below. Estrellita Simons RN * Telephone Encounter - Estrellita Simons RN - 09/01/2023 9:52 AM EDT Images from the original note were not included. Kathie Ferreira MD [facility] [employer] 31 minutes ago (9:19 AM) It could be, difficult to know for sure. It usually doesn t cause this but some women are more sensitive. She could try 1.5 mg but would try to get through it if has been off this week. Her body should be pretty adjusted by now. * Telephone Encounter - Alka Garcia RN - 09/01/2023 8:52 AM EDT Patient has weaned estrace to 1 mg [...] can be related to decreasing her dose. ALKA GARCIA RN documented [facility] History of Present illness Narrative* Kathie Ferreira MD - 08/06/2023 2:19 PM EDT Gisela is a 53 year old who presents for an annual gynecologic exam with complaints, some urinary frequency and vaginal dicsomfort. Was treated inJuly by PCP and felt better for a while and nowrecurrent again. No blood in urine. No vaginal bleeding . Lots of vaginal dryness despite vaginal estrogen Taking oral estrogen. Postmenopausal: yes HRT use: No. 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 Thanks documented in this encounterC[facility]08-25-2023 Miscellaneous Notes* Telephone Encounter - Oneyda Montano RN - 07/11/2023 4:27 PM EDT Annual scheduled with RR 08/06/23. Requested Prescriptions Pending Prescriptions Disp Refills estradiol (ESTRACE) 2 mg tablet 30 tablet 1 Sig: Take 1 tablet by mouth once daily. Oneyda Montano RN * Telephone Encounter - Lizbeth Wolf - 07/11/2023 4:18 PM EDT Patient is calling requesting this medication again prefers to use [facility] in [place] documented in this encounterC[facility]07-[facility]23 Discharge summary Author Shamir Sepulveda [facility] June 04, 2023 6:54pm Note Date/Time June 04, 2023 4:24 pm [facility] Medical Records Department [address] [place] [address] Emergency Department Summary 06/04/23 MR#: [id number] Acct: [id number] Name: GISELA TURNER Rep #:[id number] : 1970 52 From: Shamir Sepulveda MD PCP: Dr. Sumanth Krause MD Status:RE G ER Location: ED HPI History of Present Illness Chief Complaint: Abd Pain Narrative Narrative: Patient presents with 3 weeks of epigastric pain, abdominal bloating, nausea andepigastric pain especially after she eats she has had some decreased p.o. intakerecently. She has no lower abdominal pain. She has no urinary symptoms. No recent fevers or chills. Pain does not radiate into her back. She does not have any tearing sensation. [facility] Medical History Anorexia Anxiety Bipolar disease, chronic Cardiology follow-up encounter Cervical radiculopathy COVID-19 virus detected (08/29/20) Degenerative disc disease, cervical Depression Elevated troponin level Epigastric abdominal pain Fatty liver Frequent headaches GERD (gastroesophageal reflux disease) History of diverticulitis History of echocardiogram History of edema Non-smoker Nonobstructive atherosclerosis of coronary artery NSTEMI, initial episode of care (10/07/21) Shortness of breath on exertion Vertigo Home Medications desogestrel-e.estradiol 0.15 mg-0.02 mg(21)/e.estrad 0.01 mg(5) tablet 2 mg PO DAILY 08/25/13 [History Last Taken 10/29/21] quetiapine 25 mg tablet 50 mg PO QHS 10/07/18 [History Last Taken 10/29/21] bupropion HCl 100 mg tablet 100 mg PO DAILY 08/09/19 [History Last Taken 10/29/21] trazodone 50 mg tablet 50 mg PO QHS 01/03/20 [History Last Taken 10/29/21] desvenlafaxine succinate 25 mg tablet,extended release 24 hr (Pristiq) 50 mg PO DAILY 04/14/21 [History Last Taken 10/29/21] divalproex 500 mg tablet,extended release 24 hr (Depakote ER) 500 mg PO QHS 04/14/21 [History Last Taken 10/29/21] lamotrigine 200 mg tablet (Lamictal) 200 mg PO QHS 04/14/21 [History Last Taken 10/29/21] aspirin 81 mg tablet,delayed release (Adult Aspirin Regimen) 81 mg PO DAILY #30 tabs 10/08/21 [Rx Last Taken 10/29/21] ondansetron 4 mg disintegrating tablet 4 mg PO Q8H PRN nausea and vomiting #20 tabs 12/14/21 [Rx Last Taken Unknown] docusate sodium 100 mg capsule (Colace) 100 mg PO PRN PRN Constipation 02/11/22 [History Last Taken Unknown] lansoprazole 30 mg capsule,delayed release 30 mg PO DAILY #60 caps 12/17/22 [Rx Last Taken Unknown] atorvastatin 20 mg tablet 20 mg PO DAILY #90 tabs 01/16/23 [Rx Last Taken Unknown] metoclopramide HCl 5 mg tablet (Reglan) 5 mg PO Q8H PRN PRN nausea and vomiting 7 days #20 tabs 04/20/23 [Rx Last Taken Unknown] dicyclomine 10 mg capsule 10 mg PO BID PRN abdominal pain #60 caps 05/30/23 [Rx Last Taken Unknown] lactulose 10 gram/15 mL (15 mL) oral solution 10 g (15 mL) PO DAILY #750 mL 05/30/23 [Rx Last Taken Unknown] hydrocodone-acetaminophen 5-325mg 5mg-325mg 1 tab PO Q4H PRN PRN Pain 3 days #10TABLETS 06/04/23 [Rx Last Taken Unknown] ondansetron 4 mg disintegrating tablet 8 mg (2 x 4 mg) PO Q8H PRN PRN Nausea #20tabs 06/04/23 [Rx Last Taken Unknown] Allergy/AdvReac Type Severity Reaction Status Date / Time verapamil Allergy Mild Rash Verified 06/04/23 16:05 amoxicillin [Amoxicillin] Allergy Hives Verified 06/04/23 16:05 sulfamethoxazole Allergy Rash Verified 06/04/23 16:05 [From Septra] trimethoprim [From Septra] Allergy Rash Verified 06/04/23 16:05 diphenhydramine AdvReac Other Verified 06/04/23 16:05 [From Benadryl] moxifloxacin [From Avelox] AdvReac NEEDS Verified 06/04/23 16:05 FOLLOW-UP olanzapine [From Zyprexa] AdvReac Unknown Verified 06/04/23 16:05 oxcarbazepine AdvReac Unknown Verified 06/04/23 16:05 [From Trileptal] sumatriptan [From Imitrex] AdvReac Other Verified 06/04/23 16:05 zolmitriptan [From Zomig] AdvReac Unknown Verified 06/04/23 16:05 Family History Mother CVA (cerebral vascular accident) Surgical History History of carpal tunnel release History of cholecystectomy History of hysterectomy History of left heart catheterization (10/08/21) History of nasal septoplasty History of tonsillectomy and adenoidectomy Social History household members: spouse Smoking Status: Never smoker alcohol intake: never substance use type: does not use ROS ROS ED ROS Narrative Past medical history: Reviewed Medications: Reviewed Social history: Noncontributory Review of systems: General: No fever Eyes: No visual changes ENT: No upper airway congestion, normal voice Neck: No neck pain Cardiovascular: No chest pain Respiratory: No shortness of breath or cough Gastrointestinal: Abdominal pain as in HPI Genitourinary: No dysuria Musculoskeletal: Denies myalgias no difficulty with ambulation Skin: No rash Neurological: No memory loss, confusion or any focal weakness EXAM Physical Exam Narrative Exam Narrative: Physical exam General: Well nourished, Well developed, No Acute Distress Head: Normocephalic, Atraumatic Eyes: Conjunctiva not pale ENT: Moist mucous membranes Neck: Supple, Nontender, No lymphadenopathy Cardiovascular: Regular rate, Regular rhythm Respiratory: No distress, CTA bilaterally Abdomen: Soft, there is epigastric tenderness without any guarding or rebound. No right upper quadrant pain. Negative Sunshine's. No lower abdominal pain or pain at McBurney's. Back: Nontender, Normal Inspection. Negative for: CVA tenderness Extremities: Nontender, No edema Skin: Normal color, No rash Neurological: Alert, Normal Strength, Normal Sensation Const Vital Signs: 06/04/23 16:05 06/04/23 18:35 Temperature 97.4 F L Temperature Source Temporal Pulse Rate 83 78 Respiratory Rate 16 18 Blood Pressure 150/87 H 140/86 H Blood Pressure Mean 108 104 Pulse Ox 93 96 Oxygen Delivery Method Room Air Room Air MDM MDM MDM Narrative Medical decision making narrative: Patient has abdominal pain which is epigastric I thought about gastritis, pancreatitis, I also thought about colitis. She has had prior surgeries withoutabout bowel obstruction. She is found to have mesenteric adenitis, I went back to talk to her apparently she has had flulike symptoms over the past month whichmay be the cause of her mesenteric adenitis. I will treat her symptomatically otherwise I believe she can be safely discharged she has a GI physician and she can follow-up with him. At this time she does not meet admission criteria and her pain is controlled. I reevaluated her and she improved. Lab Data Labs: Laboratory Results - last 24 hr 06/04/23 16:35 WBC 4.3 L RBC 4.29 Hgb 12.5 Hct 37.6 MCV 87.6 MCH 29.1 MCHC 33.2 RDW Std Deviation 39.1 RDW Coeff of Stella 12.1 Plt Count 246 MPV 8.8 Immature Gran % (Auto) 0.000 Neut % (Auto) 33.6 L Lymph % (Auto) 52.0 H Hendricks % (Auto) 8.5 Eos % (Auto) 5.4 H Baso % (Auto) 0.5 Absolute Neuts (auto) 1.4 L Absolute Lymphs (auto) 2.21 Nucleated RBC % 0 Sodium 138 Potassium 4.0 Chloride 105 Carbon Dioxide 29.0 Anion Gap 4 L BUN 15 Creatinine 0.87 Estim Creat Clear Calc 62.57 Est GFR (MDRD) Af Amer 88 Est GFR (MDRD) Non-Af 73 BUN/Creatinine Ratio 17.3 Glucose 129 H Calcium 8.6 Total Bilirubin 0.40 AST 15 ALT 21 Alkaline Phosphatase 77 Total Protein 7.1 Albumin 3.2 Globulin 3.9 Albumin/Globulin Ratio 0.8 L Lipase 26 Radiography Diagnostic Testing: Clinical Impression(s) from Imaging Studies Abdomen/Pelvis CT 06/04/23 16:19 IMPRESSION: (NOT LISTED IN ORDER OF SIGNIFICANCE) Constipation. Multiple scattered mesenteric, cecal, periappendiceal, and periaortic lymph nodes. This can suggest mesenteric adenitis. Other findings as above. Electronically Signed: Noé Lund MD at 17:05 EDT Reading Location ID and State: [facility] / [place] , Service support , Discharge Plan Triage Chief Complaint: Abd Pain ED Provider: Shamir Sepulveda Dx/Rx/DC Orders Clinical Impression: Mesenteric adenitis, Abdominal pain Instructions: ED Adenitis, Mesenteric Prescriptions: New ondansetron 4 mg tablet,disintegrating 8 mg PO Q8H PRN PRN (Reason: Nausea) Qty: 20 0RF hydrocodone-acetaminophen 5-325 mg tablet 1 tab PO Q4H PRN PRN (Reason: Pain) 3 Days Qty: 10 0RF No Action atorvastatin 20 mg tablet 20 mg PO DAILY Qty: 90 3RF lansoprazole 30 mg capsule,delayed release(DR/EC) 30 mg PO DAILY Qty: 60 3RF desog-e.estradiol/e.estradiol 1 EACH tablet 2 mg PO DAILY Patient Comments: hormones bupropion HCl 100 mg tablet 100 mg PO DAILY Patient Comments: mood quetiapine 25 MG tablet 50 mg PO QHS trazodone 50 MG tablet 50 mg PO QHS lamotrigine [Lamictal] 200 mg tablet 200 mg PO QHS Patient Comments: take 1 tablet by mouth once daily divalproex [Depakote ER] 500 mg tablet extended release 24 hr 500 mg PO QHS Patient Comments: take 1 tablet by mouth once daily desvenlafaxine succinate [Pristiq] 25 mg tablet extended release 24 hr 50 mg PO DAILY Patient Comments: take 1 tablet by mouth once daily aspirin [Adult Aspirin Regimen] 81 mg tablet,delayed release (DR/EC) 81 mg PO DAILY Qty: 30 1RF ondansetron 4 mg tablet,disintegrating 4 mg PO Q8H PRN (Reason: nausea and vomiting) Qty: 20 0RF docusate sodium [Colace] 100 mg capsule 100 mg PO PRN PRN (Reason: Constipation) metoclopramide HCl [Reglan] 5 mg tablet 5 mg PO Q8H PRN PRN (Reason: nausea and vomiting) 7 Days Qty: 20 0RF dicyclomine 10 mg capsule 10 mg PO BID PRN (Reason: abdominal pain) Qty: 60 3RF lactulose 10 gram/15 mL (15 mL) solution 10 g PO DAILY Qty: 750 3RF Primary Care Provider: Sumanth Krause Referrals: Sumanth Krause MD [Primary Care Provider] - 3-5 Days Disposition Disposition: Home, Self Care What to do if you have Problems For any increased pain, shortness of breath, bleeding, nausea or vomiting, chestpain, or any unexpected problems, contact your Primary Care Provider. Call [facility] ([phone]) or report to the closest Emergency Room. Call 911 if necessary. 06/04/231853 <Electronically signed by Shamir Sepulveda MD> Cosigner Signature (if applicable): CC: Dr. Sumanth Krause MD ~ Signed [facility] Work Phone: 1(540) 577-460002-03-2023 Miscellaneous Notes* Letter - Mammography Coordinator - 12/20/2022 8:55 AM EST December 23, 2022 PID: [id number] Gisela Turner [id number] [phone] Dear Ms. Turner, We are pleased to inform you that [...] dense breast tissue in addition to other riskfactors. Early detection of cancer is very important. We also understand recommendations regarding breast cancer screening are controversial. Please discuss with your primary care provider which strategy is best for you and whether a mammogram is right for you. Your imaging studies and report will be [facility] as part of your permanent medical record and are available for your continuing care. Thank you for allowing us to help in meeting your health care needs. Sincerely, Dr. Ny Interpreting Radiologist [facility] (Normal over 40) documented in this encounterC[facility]02-02-2023 History of Present illness Narrative* Payton Moses RT(R) - 12/19/2022 11:10 AM EST Radiology Service Progress Note PATIENT NAME: Gisela Turner DATE OF SERVICE: December 19, 2022 TIME: 11:02 AM PATIENT IDENTITY VERIFICATION COMPLETED USING TWO (2) IDENTIFIERS: Name and Date of confirmedby patient verbally. FALL SCREENING: Has the patient [...] 19, 2022 11:02 AM documented in this encounterC[facility]10-20-2022 Miscellaneous Notes* Telephone Encounter - Araceli Khalil RN - 09/05/2022 10:49 AM EDT Patient request for medication is as follows: Requested Prescriptions Pending Prescriptions Disp Refills estradiol (ESTRACE) 0.01 % (0.1 mg/gram) vaginal cream [Pharmacy Med Name: ESTRADIOL 0.01% CREAM] 42.5 g 1 Sig: APPLY A PEA SIZED AMOUNT TO LOWER VAGINA AT BEDTIME TWICE WEEKLY Last annual exam: 07/03/22 Please approve the above prescription(s) to electronically send to pharmacy. Araceli Khalil RN documented in this encounterC[facility]07-19-2022 Miscellaneous Notes* Telephone Encounter - Seema Xiao LPN - 06/04/2022 3:21 PM EDT Patient has yearly exam 07/03/2022. * Telephone Encounter - Vandana Garza - 06/04/2022 3:13 PM EDT Patient has been identified by name and [...] and advise. Vandana Garza documented in this [facility]08-14-2013 History of Past illness Narrative* Problem Noted Date Resolved Date Pelvic pain in female 06/30/2013 10/29/2013 Menorrhagia 06/30/2013 10/29/2013 Dysmenorrhea 06/30/2013 10/29/2013 Mastodynia 12/20/2011 02/10/2012 GASTRITIS CHRONIC ATROPHIC( W/O Hemorrhage) 02/0 01/200609/12/2016 Abdominal pain, right upper quadrant 12/20/2005 02/10/2012 Calculus of gallbladder with other cholecystitis, without mention of obstruction 12/16/2005 02/10/2012 Abdominal pain, unspecified site 12/16/2005 10/29/2013 documented as of this encounter (statuses as of 06/04/2022) [facility] of Past illness Narrative* Problem Noted Date Resolved Date Pelvic pain in female 06/30/2013 10/29/2013 Menorrhagia 06/30/2013 10/29/2013 Dysmenorrhea 06/30/2013 10/29/2013 Mastodynia 12/20/2011 02/10/2012 GASTRITIS CHRONIC ATROPHIC( W/O Hemorrhage) 02/0 01/200609/12/2016 Abdominal pain, right upper quadrant 12/20/2005 02/10/2012 Calculus of gallbladder with other cholecystitis, without mention of obstruction 12/16/2005 02/10/2012 Abdominal pain, unspecified site 12/16/2005 10/29/2013 documented as of this encounter (statuses as of 09/06/2022) [facility] of Past illness Narrative* Problem Noted Date Resolved Date Pelvic pain in female 06/30/2013 10/29/2013 Menorrhagia 06/30/2013 10/29/2013 Dysmenorrhea 06/30/2013 10/29/2013 Mastodynia 12/20/2011 02/10/2012 GASTRITIS CHRONIC ATROPHIC( W/O Hemorrhage) 0201/200609/12/2016 Abdominal pain, right upper quadrant 12/20/2005 02/10/2012 Calculus of gallbladder with other cholecystitis, without mention of obstruction 12/16/2005 02/10/2012 Abdominal pain, unspecified site 12/16/2005 10/29/2013 documented as of this encounter (statuses as of 11/21/2022) [facility] of [facility] illness Narrative* Problem [...] of this encounter (statuses as of 12/24/2022) [facility] Narrative* Problem [...] of this encounter (statuses as of 07/14/2023) [facility] Narrative* Problem [...] of this encounter (statuses as of 07/23/2023) [facility] Narrative* Problem [...] of this encounter (statuses as of 08/07/2023) [facility] Narrative* Problem [...] of this encounter (statuses as of 09/01/2023) [facility] Narrative* Problem [...] of this encounter (statuses as of 09/21/2023) [facility] Narrative* Problem [...] as of this encounter (statuses as of 12/24/2023) [facility] Narrative* Problem [...] as of this encounter (statuses as of 01/28/2024) [facility] Narrative* Problem [...] as of this encounter (statuses as of 02/09/2024) [facility] Narrative* Problem [...] as of this encounter (statuses as of 02/09/2024) [facility] Narrative* Problem [...] as of this encounter (statuses as of 02/09/2024) [facility] Narrative* Problem [...] as of this encounter (statuses as of 02/10/2024) [facility] Narrative* Problem [...] as of this encounter (statuses as of 02/17/2024) [facility] Narrative* Problem [...] as of this encounter (statuses as of 02/17/2024) [facility] Narrative* Problem [...] as of this encounter (statuses as of 02/19/2024) [facility] Narrative* Problem [...] as of this encounter (statuses as of 02/21/2024) [facility] Narrative* Problem [...] as of this encounter (statuses as of 02/23/2024) [facility] N[facility]ative* Problem [...] as of this encounter (statuses as of 02/26/2024) [facility] N[facility]ative* Problem [...] as of this encounter (statuses as of 03/05/2024) [facility] Narrative* Problem [...] as of this encounter (statuses as of 03/05/2024) [facility] Narrative* Problem [...] as of this encounter (statuses as of 03/05/2024) [facility] Narrative* Problem [...] as of this encounter (statuses as of 03/05/2024) [facility] note* Diagnosis Onset Date Resolution Status Nonobstructive atherosclerosis of coronary artery acute Fatty liver acute [facility] Work Phone: evaluation note* Diagnosis Onset Date Resolution Status Nonobstructive atherosclerosis of coronary artery acute Fatty liver acute Abdominal pain acute Constipation acute Fatty liver acute [facility] Work Phone: evaluation note* Diagnosis Onset Date Resolution Status Abdominal pain acute Constipation acute Fatty liver acute Constipation acute [facility] Work Phone: evaluation noteNo assessment information available [facility] Work Phone: evaluation note* Diagnosis Onset Date Resolution Status Abdominal pain chronic Fatty liver chronic [facility] Work Phone: evaluation note* Diagnosis Onset Date Resolution Status Elevated blood pressure reading acute Myalgia acute Nonobstructive atherosclerosis of coronary artery acute Abdominal pain chronic Fatty liver chronic [facility] Work Phone: evaluation note* Diagnosis Encounter for screening mammogram for malignant neoplasm of breast- Primary Other screening mammogram [facility] Diagnosis Onset Date Resolution Status Elevated blood pressure reading acute Myalgia acute Nonobstructive atherosclerosis of coronary artery acute [facility] Work Phone: evaluation note* Diagnosis Vaginal irritation- Primary Unspecified noninflammatory disorder of vagina Encounter for gynecological examination (general) (routine) without abnormal findings documented in this encounter [facility] note* Diagnosis Encounter for screening mammogram for breast cancer documented in this encounter [facility] note* Diagnosis Onset Date Resolution Status Abdominal pain chronic Fatty liver chronic Abdominal pain chronic Constipation chronic Malabsorption chronic NAFLD (nonalcoholic fatty liver disease) chronic [facility] Work Phone: evaluation note* Diagnosis Chronic constipation- Primary Unspecified constipation Bloating Flatulence, eructation, and gas pain Decreased rectal sphincter tone Other specified disorder of rectum and anus documented in this encounter [facility] note* Diagnosis OPENED IN ERROR- Primary To allow closing an encounter opened in error (used in SmartSet) documented in this encounter [facility] note* Diagnosis Chronic constipation Unspecified constipation Bloating Flatulence, eructation, and gas pain documented in this encounter [facility] note* Diagnosis Chronic constipation Unspecified constipation documented in this encounter [facility] note* Diagnosis Chronic constipation Unspecified constipation Bloating Flatulence, eructation, and gas pain documented in this encounter [facility] note* Diagnosis Mesenteric lymphadenopathy- Primary Enlargement of lymph nodes documented in this encounter [facility] note* Diagnosis Chronic constipation Unspecified constipation Bloating Flatulence, eructation, and gas pain Decreased rectal sphincter tone Other specified disorder of rectum and anus documented in this encounter [facility] note* Diagnosis Constipation, unspecified constipation type- Primary documented in this encounter [facility] note* Diagnosis Mesenteric lymphadenopathy- Primary Enlargement of lymph nodes documented in this encounter [facility] note* Diagnosis Mesenteric lymphadenopathy Enlargement of lymph nodes documented in this encounter [facility] note* Diagnosis Mesenteric lymphadenopathy- Primary Enlargement of lymph nodes documented in this encounter [facility] note* Diagnosis Chronic constipation- Primary Unspecified constipation Pelvic floor dysfunction Pelvic muscle wasting Bloating Flatulence, eructation, and gas pain Gastroesophageal reflux disease without esophagitis Esophageal reflux Rectal bleeding Hemorrhage of rectum and anus documented in this encounter [facility] note* Diagnosis Muscular incoordination- Primary Lack of coordination Constipation, unspecified constipation type documented in this encounter [facility] note* Diagnosis Muscular incoordination- Primary Lack of coordination Constipation, unspecified constipation type documented in this encounter [facility] note* Diagnosis Constipation, unspecified constipation type- Primary documented in this encounter [facility] note* Diagnosis Muscular incoordination- Primary Lack of coordination Constipation, unspecified constipation type documented in this encounter [facility] note* Diagnosis Chronic constipation- Primary Unspecified constipation Pelvic floor dysfunction Pelvic muscle wasting Bloating Flatulence, eructation, and gas pain Gastroesophageal reflux disease without esophagitis Esophageal reflux documented in this encounter [facility] note* Diagnosis Rectal bleeding- Primary Hemorrhage of rectum and anus Alternating constipation and diarrhea Other symptoms involving digestive system Anal inflammation Other specified disorder of rectum and anus Abdominal cramping Abdominal pain, unspecified site documented in this encounter [facility] note* Diagnosis Encounter for gynecological examination (general) (routine) without abnormal findings- Primary Encounter for screening mammogram for breast cancer documented in this encounter [facility] note* Diagnosis Muscular incoordination- Primary Lack of coordination Constipation, unspecified constipation type documented in this encounter [facility] note* Diagnosis Constipation, unspecified constipation type- Primary Anal inflammation Other specified disorder of rectum and anus Abnormal findings on examination of gastrointestinal tract Nonspecific (abnormal) findings on radiological and other examination of gastrointestinal tract Diarrhea, unspecified type Blood in stool documented in this encounter [facility] note* Diagnosis Proctitis- Primary Other specified disorder of rectum and anus documented in this encounter [facility] note* Diagnosis Muscular incoordination- Primary Lack of coordination Constipation, unspecified constipation type documented in this encounter [facility] note* Diagnosis Proctitis- Primary Other specified disorder of rectum and anus Bloating Flatulence, eructation, and gas pain Chronic constipation Unspecified constipation Pelvic floor dysfunction in female documented in this encounter [facility] note* Diagnosis Frequent urination Urinary frequency documented in this encounter [facility] note* Diagnosis Proctitis Other specified disorder of rectum and anus documented in this encounter [facility] note* Diagnosis Vaginal burning- Primary Other specified symptom associated with female genital organs Vulvodynia Vulvodynia, unspecified * Assessment & Plan Note - Kathie Ferreira MD - 09/29/2024 1:59 PM EST Associated Problem(s): Vulvodynia documented in this encounter [facility] note* Diagnosis Muscular incoordination- Primary Lack of coordination Constipation, unspecified constipation type Vaginal burning- Primary Other specified symptom associated with female genital organs Vulvodynia Vulvodynia, unspecified documented in this encounter [facility] note* Diagnosis Vaginal burning- Primary Other specified symptom associated with female genital organs Vulvodynia Vulvodynia, unspecified Proctitis Other specified disorder of rectum and anus documented in this encounter [facility] note* Diagnosis Vaginal burning- Primary Other specified symptom associated with female genital organs Vulvodynia Vulvodynia, unspecified Bloating- Primary Flatulence, eructation, and gas pain Proctitis Other specified disorder of rectum and anus Pelvic floor dysfunction Pelvic muscle wasting documented in this encounter [facility] note* Diagnosis Vaginal burning- Primary Other specified symptom associated with female genital organs Vulvodynia Vulvodynia, unspecified Muscular incoordination- Primary Lack of coordination Constipation, unspecified constipation type documented in this encounter [facility] note* Diagnosis Vaginal burning- Primary Other specified symptom associated with female genital organs Vulvodynia Vulvodynia, unspecified Vulvodynia- Primary Vulvodynia, unspecified documented in this encounter [facility] note* Diagnosis Vaginal burning- Primary Other specified symptom associated with female genital organs Vulvodynia Vulvodynia, unspecified Muscular incoordination- Primary Lack of coordination Constipation, unspecified constipation type documented in this encounter [facility] note* Diagnosis Vaginal burning- Primary Other specified symptom associated with female genital organs Vulvodynia Vulvodynia, unspecified High-tone pelvic floor dysfunction- Primary Other specified disorders of female genital organs Vulvodynia Vulvodynia, unspecified Dyspareunia in female S/P hysterectomy Acquired absence of both cervix and uterus documented in this encounter [facility] note* Diagnosis Vaginal burning- Primary Other specified symptom associated with female genital organs Vulvodynia Vulvodynia, unspecified Muscular incoordination- Primary Lack of coordination Constipation, unspecified constipation type documented in this encounter [facility] note* Diagnosis Vaginal burning- Primary Other specified symptom associated with female genital organs Vulvodynia Vulvodynia, unspecified High-tone pelvic floor dysfunction- Primary Other specified disorders of female genital organs documented in this encounter [facility] note* Diagnosis Vaginal burning- Primary Other specified symptom associated with female genital organs Vulvodynia Vulvodynia, unspecified Muscular incoordination- Primary Lack of coordination Constipation, unspecified constipation type documented in this encounter [facility] note* Diagnosis Vaginal burning- Primary Other specified symptom associated with female genital organs Vulvodynia Vulvodynia, unspecified 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 Bloating Flatulence, eructation, and gas pain Pelvic floor dysfunction Pelvic muscle wasting Depression, unspecified depression type Constipation due to outlet dysfunction documented in this encounter [facility] note* Diagnosis Vaginal burning- Primary Other specified symptom associated with female genital organs Vulvodynia Vulvodynia, unspecified Encounter for gynecological examination (general) (routine) without abnormal findings Encounter for screening mammogram for breast cancer documented in this encounter [facility] note* Diagnosis Vaginal burning- Primary Other specified symptom associated with female genital organs Vulvodynia Vulvodynia, unspecified Muscular incoordination- Primary Lack of coordination Constipation, unspecified constipation type documented in this encounter [facility] note* Diagnosis Vaginal burning- Primary Other specified symptom associated with female genital organs Vulvodynia Vulvodynia, unspecified Muscular incoordination- Primary Lack of coordination Constipation, unspecified constipation type documented in this encounter [facility] note* Diagnosis Vaginal burning- Primary Other specified symptom associated with female genital organs Vulvodynia Vulvodynia, unspecified Muscular incoordination- Primary Lack of coordination Constipation, unspecified constipation type documented in this encounter [facility] note* Diagnosis Vaginal burning- Primary Other specified symptom associated with female genital organs Vulvodynia Vulvodynia, unspecified High-tone pelvic floor dysfunction Other specified disorders of female genital organs documented in this encounter [facility] note* Diagnosis Vaginal burning- Primary Other specified symptom associated with female genital organs Vulvodynia Vulvodynia, unspecified Proctitis Other specified disorder of rectum and anus documented in this encounter [facility] note* Diagnosis Vaginal burning- Primary Other specified symptom associated with female genital organs Vulvodynia Vulvodynia, unspecified 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 Pelvic floor dysfunction Pelvic muscle wasting Chronic constipation Unspecified constipation Rectal bleeding Hemorrhage of rectum and anus Bloating Flatulence, eructation, and gas pain Non-celiac gluten sensitivity Allergy to other foods Constipation, unspecified constipation type Gastro-esophageal reflux disease without esophagitis Esophageal reflux documented in this encounter [facility] note* Diagnosis Vaginal burning- Primary Other specified symptom associated with female genital organs Vulvodynia Vulvodynia, unspecified Generalized abdominal pain- Primary Abdominal pain, generalized [facility] Vaginal burning- Primary Other specified symptom associated with female genital organs Vulvodynia Vulvodynia, unspecified Generalized abdominal pain Abdominal pain, generalized [facility] Additional Instructions Thank you for trusting us with your care today! Please take Tylenol (2 pills, 650 mg), ibuprofen (2 pills, 400 mg) every 6 hours as needed for headache control. Please take Reglan for breakthrough headache that is not controlled by the above regiment. Please return to the emergency department if your symptoms change or worsen. Specifically if develop loss of vision, loss of movement, loss of sensation, slurred speech, facial drooping, inability to swallow. If you lose consciousness. Please follow with your primary care physician for further outpatient evaluation and management.[facility] Work Phone: Reason for referral (narrative)* Diagnostic Procedure Only (Routine) - Authorized Specialty Diagnoses / Procedures Referred By Hetal de leon Referred To Contact [facility] Diagnoses Encounter for screening mammogram for malignant neoplasm of breast Procedures RENÉE SCREENING W LEANDRO SCREENING DIGITAL BREAST TOMOSYNTHESIS BI SCREENING MAMMOGRAPHY BI 2-VIEW BREAST INC Kathie Maldonado MD [address] [place] [address] [place] [address] Referral ID Status Reason Start Date Expiration Date Visits Requested Visits Authorized [id number] Authorized Auto-Generat ed Referral 2023 08/20/2024 1 1 [facility] for referral (narrative)* Diagnostic Procedure Only (Routine) - Closed Specialty Diagnoses / Procedures Referred By Hetal de leon Referred To Contact [facility] Diagnoses Encounter for screening mammogram for breast cancer Procedures RENÉE SCREENING W LEANDRO SCREENING DIGITAL BREAST TOMOSYNTHESIS BI SCREENING MAMMOGRAPHY BI 2-VIEW BREAST INC Kathie Maldonado MD [address] [place] [address] [facility] [address] [address] Referral ID Status Reason Start Date Expiration Date V isits Requested Visits Authorized [id number] Closed Auto-Generate d Referral 07/03/2022 08/02/2023 1 1 [facility] for referral (narrative)* Diagnostic Procedure Only (Routine) - Pending Review Specialty Diagnoses / Procedures Referred By Contac t Referred To Contact [facility] Diagnoses Chronic constipation Procedures XR ABDOMEN 1V SUPINE RADIOLOGIC EXAM ABDOMEN 1 VIEW Estrellita Ferreira MD [facility] [address] [id number] [place] [address] Referral ID Status Reason Start Date Expiration Date Visits Requested Visits Authorized [id number] Pending Review Auto-Generat ed Referral 02/16/2024 03/10/2025 1 1 * Diagnostic Procedure Only (Routine) - Pending Review Specialty Diagnoses / Procedures Referred By Contac t Referred To Contact [facility] Diagnoses Chronic constipation Procedures XR ABDOMEN 1V SUPINE RADIOLOGIC EXAM ABDOMEN 1 VIEW Estrellita Ferreira MD [facility] [address] [id number] [place] [address] Referral ID Status Reason Start Date Expiration Date Visits Requested Visits Authorized [id number] Pending Review Auto-Generat ed Referral 02/16/2024 03/10/2025 1 1 * Outpatient Procedure (Routine) - Authorized Specialty Diagnoses / Procedures Referred By Contac t Referred To [facility] Diagnoses Chronic constipation Bloating Procedures COLONOSCOPY DIAGNOSTIC COLONOSCOPY FLX DX W/COLLJ SPEC WHEN PFRMD Estrellita Ferreira MD [facility] [address] [id number] [facility] [place] [address] [place] [address] Referral ID Status Reason Start Date Expiration Date Visits Requested Visits Authorized [id number] Authorized Auto-Generat ed Referral 02/09/2024 11/16/2024 1 1 * Outpatient Procedure (Routine) - Authorized Specialty Diagnoses / Procedures Referred By Contac t Referred To Contact [facility] Diagnoses Chronic constipation Bloating Procedures EGD DIAGNOSTIC ESOPHAGOGASTRODUODENOSC OPY TRANSORAL DIAGNOSTIC Estrellita Ferreira MD [facility] [address] [place], [place] [id number] [facility] [address] [address] Referral ID Status Reason Start Date Expiration Date Visits Requested Visits Authorized [id number] Authorized Auto-Generat ed Referral 02/09/2024 11/16/2024 1 1 * Outpatient Procedure (Routine) - Pending Review Specialty Diagnoses / Procedures Referred By Contac t Referred To Contact [facility] Diagnoses Chronic constipation Bloating Decreased rectal sphincter tone Procedures [facility] ANORECTAL MANOMETRY ANORECTAL MANOMETRY Estrellita Ferreira MD [facility] [address] [place], [place] [phone] [facility] Disease [address] [address] Referral ID Status Reason Start Date Expiration Date Visits Requested Visits Authorized [id number] Pending Review Auto-Generat ed Referral 02/09/2024 02/08/2025 1 1 * Diagnostic Procedure Only (Routine) - Closed Specialty Diagnoses / Procedures Referred By Contac t Referred To Contact [facility] Diagnoses Chronic constipation Bloating Procedures XR ABDOMEN 1V SUPINE RADIOLOGIC EXAM ABDOMEN 1 VIEW Estrellita Ferreira MD [facility] [address] [place], [place] [id number] [place] [address] Referral ID Status Reason Start Date Expiration Date V isits Requested Visits Authorized [id number] Closed Auto-Generate d Referral 02/09/2024 03/10/2025 1 1 [facility] for referral (narrative)* Diagnostic Procedure Only (Routine) - Closed Specialty Diagnoses / Procedures Referred By Contac t Referred To Contact [facility] Diagnoses Chronic constipation Bloating Procedures XR ABDOMEN 1V SUPINE RADIOLOGIC EXAM ABDOMEN 1 VIEW Estrellita Ferreira MD [facility] [address] [place], [place] [phone] [facility] Referral ID Status Reason Start Date Expiration Date V isits Requested Visits Authorized [id number] Closed Auto-Generate d Referral 02/09/2024 03/10/2025 1 1 [facility] for referral (narrative)* Outpatient Procedure (Routine) - Closed Specialty Diagnoses / Procedures Referred By Hetal t Referred To Contact [facility] Diagnoses Chronic constipation Bloating Procedures COLONOSCOPY DIAGNOSTIC COLONOSCOPY FLX DX W/COLLJ SPEC WHEN PFRMD Estrellita Ferreira MD [facility] [address] [place], [place] [phone] [facility] [place] [address] Referral ID Status Reason Start Date Expiration Date V isits Requested Visits Authorized [id number] Closed Auto-Generate d Referral 02/09/2024 11/16/2024 1 1 * Outpatient Procedure (Routine) - Closed Specialty Diagnoses / Procedures Referred By Hetal t Referred To Contact [facility] Diagnoses Chronic constipation Bloating Procedures EGD DIAGNOSTIC ESOPHAGOGASTRODUODENOSC OPY TRANSORAL DIAGNOSTIC Estrellita Ferreira MD [facility] [address] [place], [place] [phone] [facility] Disease [place] [id number] Referral ID Status Reason Start Date Expiration Date V isits Requested Visits Authorized [id number] Closed Auto-Generate d Referral 02/09/2024 11/16/2024 1 1 [facility] for referral (narrative)* Outpatient Procedure (Routine) - Pending Review Specialty Diagnoses / Procedures Referred By Hetal t Referred To Contact [facility] Diagnoses Mesenteric lymphadenopathy Procedures CAPSULE ENDOSCOPY SMALL BOWEL GI TRC IMG INTRALUMINAL ESOPHAGUS-ILEUM W/I&R Estrellita Ferreira MD [facility] [address] [address] [facility] [place] [address] [place] [address] Referral ID Status Reason Start Date Expiration Date Visits Requested Visits Authorized [id number] Pending Review Auto-Generat ed Referral 02/23/2024 02/22/2025 1 1 [facility] for referral (narrative)* Diagnostic Procedure Only (Routine) - Authorized Specialty Diagnoses / Procedures Referred By Contac t Referred To Contact [facility] Diagnoses Encounter for gynecological examination (general) (routine) without abnormal findings Encounter for screening mammogram for breast cancer Procedures RENÉE SCREENING W LEANDRO SCREENING DIGITAL BREAST TOMOSYNTHESIS BI SCREENING MAMMOGRAPHY BI 2-VIEW BREAST INC CAD Kathie Ferreira MD [address] [place] [address] [facility] [address] [place] [address] Referral ID Status Reason Start Date Expiration Date Visits Requested Visits Authorized [id number] Authorized Auto-Generat ed Referral 08/11/2024 09/10/2025 1 1 T [facility] for referral (narrative)* Outpatient Procedure (Routine) - Closed Specialty Diagnoses / Procedures Referred By Contac t Referred To Contact [facility] Diagnoses Anal inflammation Abnormal findings on examination of gastrointestinal tract Diarrhea, unspecified type Blood in stool Procedures COLONOSCOPY DIAGNOSTIC COLONOSCOPY FLX DX W/COLLJ SPEC WHEN PFRMD Rosie Galloway PA-C [address] [place] [address] [facility] [place] [address] [place] [address] Referral ID Status Reason Start Date Expiration Date V isits Requested Visits Authorized [id number] Closed Auto-Generate d Referral 08/13/2024 11/16/2024 1 1 [facility] for referral (narrative)* Outpatient Procedure (Routine) - New Request Specialty Diagnoses / Procedures Referred By Contac t Referred To Contact [facility] Diagnoses Proctitis Procedures SIGMOIDOSCOPY SIGMOIDOSCOPY FLX DX W/COLLJ SPEC BR/WA IF Estrellita Jacobsen MD [facility] [address] [place], [place] [phone] [facility] [place] [address] [place] [address] Referral ID Status Reason Start Date Expiration Date Visits Requested Visits Authorized [id number] New Request Auto-Generat ed Referral 09/06/2025 1 1 [facility] for referral (narrative)* Outpatient Procedure (Routine) - Closed Specialty Diagnoses / Procedures Referred By Contac t Referred To Contact [facility] Diagnoses Proctitis Procedures SIGMOIDOSCOPY SIGMOIDOSCOPY FLX DX W/COLLJ SPEC BR/WA IF Estrellita Jacobsen MD [facility] [address] [place] [address] [facility] [place] [address] [place] [address] Referral ID Status Reason Start Date Expiration Date V isits Requested Visits Authorized [id number] Closed Auto-Generate d Referral 10/06/2024 11/16/2024 1 1 [facility] for referral (narrative)No reason for referral information availableWWVUMed[facility] Work Phone: Reason for visit Narrative* Diagnostic Procedure Only (Routine) - Closed Specialty Diagnoses / Procedures Referred By Contac t Referred To Contact [facility] Diagnoses Encounter for screening mammogram for breast cancer Procedures RENÉE SCREENING W LEANDRO SCREENING DIGITAL BREAST TOMOSYNTHESIS BI SCREENING MAMMOGRAPHY BI 2-VIEW BREAST INC Kathie Maldonado MD [address] [place] [address] [facility] [address] [place] [address] Referral ID Status Reason Start Date Expiration Date V isits Requested Visits Authorized [id number] Closed Auto-Generate d Referral 07/03/2022 08/02/2023 1 1 [facility] for visit Narrative* Diagnostic Procedure Only (Routine) - Closed Specialty Diagnoses / Procedures Referred By Contac t Referred To Contact [facility] Diagnoses Chronic constipation Bloating Procedures XR ABDOMEN 1V SUPINE RADIOLOGIC EXAM ABDOMEN 1 VIEW Estrellita Ferreira MD [facility] [address] [phone] [place] [address] Referral ID Status Reason Start Date Expiration Date V isits Requested Visits Authorized [id number] Closed Auto-Generate d Referral 02/09/2024 03/10/2025 1 1 [facility] for visit Narrative* Diagnostic Procedure Only (Routine) - Closed Specialty Diagnoses / Procedures Referred By Contac t Referred To Contact [facility] Diagnoses Chronic constipation Procedures XR ABDOMEN 1V SUPINE RADIOLOGIC EXAM ABDOMEN 1 VIEW Estrellita Ferreira MD [facility] [address] [place], [place] [phone] [facility] Referral ID Status Reason Start Date Expiration Date V isits Requested Visits Authorized [id number] Closed Auto-Generate d Referral 02/16/2024 03/10/2025 1 1 [facility] for visit Narrative* Diagnostic Procedure Only (Routine) - Closed Specialty Diagnoses / Procedures Referred By Contac t Referred To Contact [facility] IMAGING Diagnoses Chronic constipation Procedures XR ABDOMEN 1V SUPINE RADIOLOGIC EXAM ABDOMEN 1 VIEW Estrellita Ferreira MD [facility] [address] [phone] Xr Imaging [facility] Referral ID Status Reason Start Date Expiration Date V isits Requested Visits Authorized [id number] Closed Auto-Generate d Referral 02/16/2024 03/10/2025 1 1 [facility] for visit Narrative* Outpatient Procedure (Routine) - Closed Specialty Diagnoses / Procedures Referred By Contac t Referred To Contact [facility] Diagnoses Chronic constipation Bloating Procedures COLONOSCOPY DIAGNOSTIC COLONOSCOPY FLX DX W/COLLJ SPEC WHEN PFRMD Estrellita Ferreira MD [facility] [address] [place], [place] [phone] [facility] [address] [place] [address] Referral ID Status Reason Start Date Expiration Date V isits Requested Visits Authorized [id number] Closed Auto-Generate d Referral 02/09/2024 11/16/2024 1 1 [facility] for visit Narrative* Outpatient Procedure (Routine) - Closed Specialty Diagnoses / Procedures Referred By Contac t Referred To Contact [facility] Diagnoses Mesenteric lymphadenopathy Procedures CAPSULE ENDOSCOPY SMALL BOWEL GI TRC IMG INTRALUMINAL ESOPHAGUS-ILEUM W/I&R Estrellita Ferreira MD [facility] [address] [phone] [facility] [address] [place] [address] Referral ID Status Reason Start Date Expiration Date V isits Requested Visits Authorized [id number] Closed Auto-Generate d Referral 02/25/2024 11/16/2024 1 1 [facility] for visit Narrative* Outpatient Procedure (Routine) - Closed Specialty Diagnoses / Procedures Referred By Contac t Referred To Contact [facility] Diagnoses Anal inflammation Abnormal findings on examination of gastrointestinal tract Diarrhea, unspecified type Blood in stool Procedures COLONOSCOPY DIAGNOSTIC COLONOSCOPY FLX DX W/COLLJ SPEC WHEN PFRMD Rosie Galloway PA-C [address] [place] [address] [facility] [place] [address] [place] [address] Referral ID Status Reason Start Date Expiration Date V isits Requested Visits Authorized [id number] Closed Auto-Generate d Referral 08/13/2024 11/16/2024 1 1 [facility] for visit Narrative* Outpatient Procedure (Routine) - Closed Specialty Diagnoses / Procedures Referred By Contac t Referred To Contact [facility] Diagnoses Proctitis Procedures SIGMOIDOSCOPY SIGMOIDOSCOPY FLX DX W/COLLJ SPEC BR/WA IF PFEstrellita Laird MD [facility] [address] [address] [facility] [place] [address] [place] [address] Referral ID Status Reason Start Date Expiration Date V isits Requested Visits Authorized [id number] Closed Auto-Generate d Referral 10/06/2024 11/16/2024 1 1 [facility] for visit Narrative* Diagnostic Procedure Only (Routine) - Closed Specialty Diagnoses / Procedures Referred By Hetal de leon Referred To Contact [facility] Diagnoses Encounter for gynecological examination (general) (routine) without abnormal findings Encounter for screening mammogram for breast cancer Procedures RENÉE SCREENING W LEANDRO SCREENING DIGITAL BREAST TOMOSYNTHESIS BI SCREENING MAMMOGRAPHY BI 2-VIEW BREAST INC CAD Kathie Ferreira MD [address] [place] [address] Phone: tel: fax: [facility] [address] [place] [address] Referral ID Status Reason Start Date Expiration Date V isits Requested Visits Authorized [id number] Closed Auto-Generate d Referral 08/11/2024 09/10/2025 1 1 [facility] for visit Narrative* Diagnostic Procedure Only (Routine) - Closed Specialty Diagnoses / Procedures Referred By Hetal de leon Referred To Contact [facility] Diagnoses Generalized abdominal pain Procedures XR ABDOMEN 2V ROUTINE SUPINE W UPRIGHT/DECUB/CTL RADIOLOGIC EXAM ABDOMEN 2 VIEWS Estrellita Ferreira MD [address] [address] Phone: tel: fax: [place] [address] Referral ID Status Reason Start Date Expiration Date V isits Requested Visits Authorized [id number] Closed Auto-Generate d Referral 07/27/2025 08/26/2026 1 1 [facility] Summary Purpose Family History No Family History Records Found Relationship Condition Age at Onset Recorded Date/T al mother Cerebrovascular accident (CVA) Unknown Advance Directives No Advanced Directives Records Found Advance Directive Response Recorded Date/ Time Advance Directives No October 24, 2016 5:44pm Living Will No February 11, 2022 2:17pm Power of Court Recording Monitor No February 11 2:17pm Advance Directive Response Recorded Date/ Time Advance Directives No October 24, 2016 5:44pm Living Will No March 16, 2022 3:25pm Power of Court Recording Monitor No March 16 3:25pm Advance Directive Response Recorded Date/ Time Advance Directives No October 24, 2016 5:44pm Living Will No June 03, 2022 10:26pm Power of Court Recording Monitor No June 03 10:26pm Documents on File Type Date Recorded Patient [employer] Resource [employer] Expl anation Advance Directive(s) 10/17/2018 7:50 AM Advance Directive Response Recorded Date/ Time Advance Directives No October 24, 2016 4:44pm Living Will No June 03, 2022 9:26pm Power of Court Recording Monitor No June 03 9:26pm Advance Directive Response Recorded Date/ Time Advance Directives No October 24, 2016 5:44pm Living Will No April 20, 2023 3 :53pm Power of Court Recording Monitor No April 20, 2023 3:53pm Advance Directive Response Recorded Date/ Time Advance Directives No October 24, 2016 5:44pm Living Will No June 04, 2023 4:28pm Power of Court Recording Monitor No June 04 4:28pm Advance Directive Response Recorded Date/ Time Advance Directives No October 24, 2016 4:44pm Living Will No October 30, 2 023 4:52pm Power of Court Recording Monitor No October 30, 2023 4:52pm Advance Directive Response Recorded Date/ Time Living Will No October 30, 2 023 5:52pm Do you have a Healthcare Power of Court Recording Monitor? No October 30, 2023 5:52pm Living Will No December 22 11:02am Do you have a Healthcare Power of Court Recording Monitor? No December 22, 2024 11:02am Advance Directives No October 24, 2016 5:44pm Advance Directive Response Recorded Date/ Time Living Will No December 22 11:02am Do you have a Healthcare Power of Court Recording Monitor? No December 22, 2024 11:02am Advance Directives No October 24, 2016 5:44pm Chief Complaint and Reason for Visit Chief Complaint SINUSITIS abd pain LUNG NODULE ABD PAIN S/P NSTEMI, CATH [facility] ER REF, ABD PAIN FATTY LIVER Reason for Visit Nonobstructive ather osclerosis of coronary artery Fatty liver Chief Complaint S/P NSTEMI, CATH [facility] ER REF, ABD PAIN FATTY LIVER 2 WK FU COLON ABD PAIN Reason for Visit Nonobstructive ather osclerosis of coronary artery Fatty liver Abdominal pain Constipation Fatty liver Chief Complaint 2 WK FU COLON ABD PAIN 8 WK FU Reason for Visit Abdominal pain Constipation Fatty liver Constipation Chief Complaint 2 WK FU COLON ABD PAIN 8 WK FU CP Reason for Visit Abdominal pain Constipation Fatty liver Constipation Chief Complaint CP STOOL SAMPLE Chief Complaint CP STOOL SAMPLE E ORDER Chief Complaint CP STOOL SAMPLE E ORDER 3 MO FU Reason for Visit Abdominal pain Fatty liver Chief Complaint STOOL SAMPLE E ORDER 3 MO FU Reason for Visit Abdominal pain Fatty liver Chief Complaint STOOL SAMPLE E ORDER 3 MO FU ABDOMINAL PAIN E ORDER Reason for Visit Abdominal pain Fatty liver Chief Complaint 1 Y FU (MOVED FROM [facility]) 4 MO FU headache Reason for Visit Elevated blood press ure reading Myalgia Nonobstructive atherosclerosis of coronary artery Abdominal pain Fatty liver Chief Complaint 4 MO FU headache Left lower quadrant pain Reason for Visit Abdominal pain Fatty liver Chief Complaint 4 MO FU headache Left lower quadrant pain abd pain Reason for Visit Abdominal pain Fatty liver Chief Complaint headache Left lower quadrant pain abd pain EORDER 4-5 MO F/U E ORDER Reason for Visit Elevated blood press ure reading Myalgia Nonobstructive atherosclerosis of coronary artery Chief Complaint headache Left lower quadrant pain abd pain EORDER 4-5 MO F/U E ORDER DECREASED PEDAL PULSES Reason for Visit Elevated blood press ure reading Myalgia Nonobstructive atherosclerosis of coronary artery Chief Complaint 6 M FU BMP/CBC - ABD PAIN ABD EORDERS NAFLD - 30 min Reason for Visit Abdominal pain Fatty liver Abdominal pain Constipation Malabsorption NAFLD (nonalcoholic fatty liver disease) Chief Complaint 4-5 MO F/U E ORDER DECREASED PEDAL PULSES 6 M FU BMP/CBC - ABD PAIN ABD Reason for Visit Elevated blood press ure reading Myalgia Nonobstructive atherosclerosis of coronary artery Abdominal pain Fatty liver Chief Complaint Admit Date 9 M FU November 18, 2024 1: 06pm EORDERS December 14, 2024 1 2:41pm SOB December 22, 2024 9 :49am CONCERN FOR SINUS INFECTION December 10:09am EORDER March 02, 2025 3:2 8pm Reason for Visit Admit Date Elevated blood pressure reading November 18, 2024 1:06pm Nonobstructive atherosclerosis of barajas ry artery November 18, 2024 1:06pm Influenza A January 08, 2025 10:09am Chief Complaint Admit Date EORDERS December 14, 2024 1 2:41pm SOB December 22, 2024 9 :49am CONCERN FOR SINUS INFECTION December 10:09am EORDER March 02, 2025 3:2 8pm EORDERS- chest pain, sob April 06, 2025 9:58am Reason for Visit Admit Date Influenza A January 08, 2025 10:09am Chief Complaint Admit Date SOB December 22, 2024 9 :49am CONCERN FOR SINUS INFECTION December 10:09am EORDER March 02, 2025 3:2 8pm EORDERS- chest pain, sob April 06, 2025 9:58am CHEST PAIN (STAT) April 14, 2025 9:42a m Reason for Referral Specialty Diagnoses / Procedures Referred By Contac t Referred To Contact Jessica Leiva APRN.[facility] [address] [place] [address] Referral ID Status Reason Start Date Expiration Date Visits Re quested Visits Authorized [id number] Closed 1 1 Specialty Diagnoses / Procedures Referred By Contac t Referred To Contact [facility] Diagnoses Constipation, unspecified constipation type Procedures CONSULT TO PHYSICAL THERAPY PHYSICAL THERAPY EVALUATION HIGH COMPLEX 45 MINS Rosie Galloway PA-C [address] [place] [address] [facility] [address] [address] Referral ID Status Reason Start Date Expiration Date Visits Requested Visits Authorized [id number] Pending Review Auto-Generat ed Referral 03/04/2024 03/04/2025 1 1 Specialty Diagnoses / Procedures Referred By Contac t Referred To Contact Gastroenterology Diagnoses Proctitis Procedures CONSULT TO GASTROENTEROLOGY OFFICE/OUTPATIENT [facility] 60 MINUTES Rosie Galloway PA-C [address] [place] [address] Referral ID Status Reason Start Date Expiration Date Visits Requested Visits Authorized [id number] Authorized PCP Requested Referral 08/23/2024 08/23/2025 1 1 Specialty Diagnoses / Procedures Referred By Contac t Referred To Contact Diagnoses Vulvodynia Procedures CONSULT TO [facility] P[facility] OFFICE/OUTPATIENT [facility] 60 MINUTES Kathie Ferreira MD [address] [place] [address] Referral ID Status Reason Start Date Expiration Date Visits Requested Visits Authorized [id number] Authorized PCP Requested Referral Auto-Generate d Referral 4 02/10/2025 1 1 Additional Source Comments INFORMATION SOURCE (unrecogn ized section and content) DATE CREATED AUTHOR 10/26/2018 [facility] ([place]) DATE CREATED AUTHOR AUTHOR'S ORGANIZ ATION 01/05/2019 [facility] DATE CREATED AUTHOR AUTHOR'S ORGANIZ ATION 09/19/2024 [facility] DATE CREATED AUTHOR AUTHOR'S ORGANIZ ATION 06/30/2025 [facility] DATE CREATED AUTHOR AUTHOR'S ORGANIZ ATION 2025 [facility] DATE CREATED AUTHOR AUTHOR'S ORGANIZ ATION 07/27/2025 [facility] DATE CREATED AUTHOR AUTHOR'S ORGANIZ ATION 08/04/2025 [facility] Goals (unrecognized section and content) Goals may be documented in a n alternate sectionGoals may be documented in an alternate sectionGoals may be documented in an alternate sectionGoals may be documented in an alternate sectionGoals may be documented in an alternate sectionGoals may be documented in an alternate sectionGoals may be documented in an alternate sectionGoals may be documented in an alternate sectionGoals may be documented in an alternate sectionGoals may be documented in an alternate sectionGoals may be documented in an alternate sectionGoals may be documented in an alternate sectionGoals may be documented in an alternate sectionGoals may be documented in an alternate sectionGoals may be documented in an alternate sectionGoals may be documented in an alternate sectionGoals may be documented in an alternate sectionGoals may be documented in an alternate sectionGoals may be documented in an alternate sectionGoals may be documented in an alternate section Source Comments (unrecognize d section and content) In the event this informatio n is protected by the Federal Confidentiality of Alcohol and Drug Abuse Patient Records regulations: The Federal rules restrict any use of the information to criminally investigate or prosecute any alcohol or drug abuse patient.[facility] the event this information is protected by the Federal Confidentiality of Alcohol and Drug Abuse Patient Records regulations: The Federal rules restrict any use of the information to criminally investigate or prosecute any alcohol or drug abuse patient.[facility] Hospital[facility] the event this information is protected by the Federal Confidentiality of Alcohol and Drug Abuse Patient Records regulations: The Federal rules restrict any use of the information to criminally investigate or prosecute any alcohol or drug abuse patient.[facility] Hospital[facility] the event this information is protected by the Federal Confidentiality of Alcohol and Drug Abuse Patient Records regulations: The Federal rules restrict any use of the information to criminally investigate or prosecute any alcohol or drug abuse patient.[facility] Hospital[facility] the event this information is protected by the Federal Confidentiality of Alcohol and Drug Abuse Patient Records regulations: The Federal rules restrict any use of the information to criminally investigate or prosecute any alcohol or drug abuse patient.[facility] Hospital[facility] the event this information is protected by the Federal Confidentiality of Alcohol and Drug Abuse Patient Records regulations: The Federal rules restrict any use of the information to criminally investigate or prosecute any alcohol or drug abuse patient.[facility] HospitalIn the event this information is protected by the Federal Confidentiality of Alcohol and Drug Abuse Patient Records regulations: The Federal rules restrict any use of the information to criminally investigate or prosecute any alcohol or drug abuse patient.[facility] HospitalIn the event this information is protected by the Federal Confidentiality of Alcohol and Drug Abuse Patient Records regulations: The Federal rules restrict any use of the information to criminally investigate or prosecute any alcohol or drug abuse patient.[facility] HospitalIn the event this information is protected by the Federal Confidentiality of Alcohol and Drug Abuse Patient Records regulations: The Federal rules restrict any use of the information to criminally investigate or prosecute any alcohol or drug abuse patient.[facility] HospitalIn the event this information is protected by the Federal Confidentiality of Alcohol and Drug Abuse Patient Records regulations: The Federal rules restrict any use of the information to criminally investigate or prosecute any alcohol or drug abuse patient.[facility] HospitalIn the event this information is protected by the Federal Confidentiality of Alcohol and Drug Abuse Patient Records regulations: The Federal rules restrict any use of the information to criminally investigate or prosecute any alcohol or drug abuse patient.[facility] HospitalIn the event this information is protected by the Federal Confidentiality of Alcohol and Drug Abuse Patient Records regulations: The Federal rules restrict any use of the information to criminally investigate or prosecute any alcohol or drug abuse patient.[facility] HospitalIn the event this information is protected by the Federal Confidentiality of Alcohol and Drug Abuse Patient Records regulations: The Federal rules restrict any use of the information to criminally investigate or prosecute any alcohol or drug abuse patient.[facility] HospitalIn the event this information is protected by the Federal Confidentiality of Alcohol and Drug Abuse Patient Records regulations: The Federal rules restrict any use of the information to criminally investigate or prosecute any alcohol or drug abuse patient.[facility] HospitalIn the event this information is protected by the Federal Confidentiality of Alcohol and Drug Abuse Patient Records regulations: The Federal rules restrict any use of the information to criminally investigate or prosecute any alcohol or drug abuse patient.[facility] HospitalIn the event this information is protected by the Federal Confidentiality of Alcohol and Drug Abuse Patient Records regulations: The Federal rules restrict any use of the information to criminally investigate or prosecute any alcohol or drug abuse patient.[facility] HospitalIn the event this information is protected by the Federal Confidentiality of Alcohol and Drug Abuse Patient Records regulations: The Federal rules restrict any use of the information to criminally investigate or prosecute any alcohol or drug abuse patient.[facility] HospitalIn the event this information is protected by the Federal Confidentiality of Alcohol and Drug Abuse Patient Records regulations: The Federal rules restrict any use of the information to criminally investigate or prosecute any alcohol or drug abuse patient.[facility] HospitalIn the event this information is protected by the Federal Confidentiality of Alcohol and Drug Abuse Patient Records regulations: The Federal rules restrict any use of the information to criminally investigate or prosecute any alcohol or drug abuse patient.[facility] HospitalIn the event this information is protected by the Federal Confidentiality of Alcohol and Drug Abuse Patient Records regulations: The Federal rules restrict any use of the information to criminally investigate or prosecute any alcohol or drug abuse patient.[facility] HospitalIn the event this information is protected by the Federal Confidentiality of Alcohol and Drug Abuse Patient Records regulations: The Federal rules restrict any use of the information to criminally investigate or prosecute any alcohol or drug abuse patient.[facility] HospitalIn the event this information is protected by the Federal Confidentiality of Alcohol and Drug Abuse Patient Records regulations: The Federal rules restrict any use of the information to criminally investigate or prosecute any alcohol or drug abuse patient.[facility] HospitalIn the event this information is protected by the Federal Confidentiality of Alcohol and Drug Abuse Patient Records regulations: The Federal rules restrict any use of the information to criminally investigate or prosecute any alcohol or drug abuse patient.[facility] HospitalIn the event this information is protected by the Federal Confidentiality of Alcohol and Drug Abuse Patient Records regulations: The Federal rules restrict any use of the information to criminally investigate or prosecute any alcohol or drug abuse patient.[facility] HospitalIn the event this information is protected by the Federal Confidentiality of Alcohol and Drug Abuse Patient Records regulations: The Federal rules restrict any use of the information to criminally investigate or prosecute any alcohol or drug abuse patient.[facility] HospitalIn the event this information is protected by the Federal Confidentiality of Alcohol and Drug Abuse Patient Records regulations: The Federal rules restrict any use of the information to criminally investigate or prosecute any alcohol or drug abuse patient.[facility] HospitalIn the event this information is protected by the Federal Confidentiality of Alcohol and Drug Abuse Patient Records regulations: The Federal rules restrict any use of the information to criminally investigate or prosecute any alcohol or drug abuse patient.[facility] HospitalIn the event this information is protected by the Federal Confidentiality of Alcohol and Drug Abuse Patient Records regulations: The Federal rules restrict any use of the information to criminally investigate or prosecute any alcohol or drug abuse patient.[facility] HospitalIn the event this information is protected by the Federal Confidentiality of Alcohol and Drug Abuse Patient Records regulations: The Federal rules restrict any use of the information to criminally investigate or prosecute any alcohol or drug abuse patient.[facility] HospitalIn the event this information is protected by the Federal Confidentiality of Alcohol and Drug Abuse Patient Records regulations: The Federal rules restrict any use of the information to criminally investigate or prosecute any alcohol or drug abuse patient.[facility] HospitalIn the event this information is protected by the Federal Confidentiality of Alcohol and Drug Abuse Patient Records regulations: The Federal rules restrict any use of the information to criminally investigate or prosecute any alcohol or drug abuse patient.[facility] HospitalIn the event this information is protected by the Federal Confidentiality of Alcohol and Drug Abuse Patient Records regulations: The Federal rules restrict any use of the information to criminally investigate or prosecute any alcohol or drug abuse patient.[facility] HospitalIn the event this information is protected by the Federal Confidentiality of Alcohol and Drug Abuse Patient Records regulations: The Federal rules restrict any use of the information to criminally investigate or prosecute any alcohol or drug abuse patient.[facility] HospitalIn the event this information is protected by the Federal Confidentiality of Alcohol and Drug Abuse Patient Records regulations: The Federal rules restrict any use of the information to criminally investigate or prosecute any alcohol or drug abuse patient.[facility] HospitalIn the event this information is protected by the Federal Confidentiality of Alcohol and Drug Abuse Patient Records regulations: The Federal rules restrict any use of the information to criminally investigate or prosecute any alcohol or drug abuse patient.[facility] HospitalIn the event this information is protected by the Federal Confidentiality of Alcohol and Drug Abuse Patient Records regulations: The Federal rules restrict any use of the information to criminally investigate or prosecute any alcohol or drug abuse patient.[facility] HospitalIn the event this information is protected by the Federal Confidentiality of Alcohol and Drug Abuse Patient Records regulations: The Federal rules restrict any use of the information to criminally investigate or prosecute any alcohol or drug abuse patient.[facility] HospitalIn the event this information is protected by the Federal Confidentiality of Alcohol and Drug Abuse Patient Records regulations: The Federal rules restrict any use of the information to criminally investigate or prosecute any alcohol or drug abuse patient.[facility] HospitalIn the event this information is protected by the Federal Confidentiality of Alcohol and Drug Abuse Patient Records regulations: The Federal rules restrict any use of the information to criminally investigate or prosecute any alcohol or drug abuse patient.[facility] HospitalIn the event this information is protected by the Federal Confidentiality of Alcohol and Drug Abuse Patient Records regulations: The Federal rules restrict any use of the information to criminally investigate or prosecute any alcohol or drug abuse patient.[facility] HospitalIn the event this information is protected by the Federal Confidentiality of Alcohol and Drug Abuse Patient Records regulations: The Federal rules restrict any use of the information to criminally investigate or prosecute any alcohol or drug abuse patient.[facility] HospitalIn the event this information is protected by the Federal Confidentiality of Alcohol and Drug Abuse Patient Records regulations: The Federal rules restrict any use of the information to criminally investigate or prosecute any alcohol or drug abuse patient.[facility] HospitalIn the event this information is protected by the Federal Confidentiality of Alcohol and Drug Abuse Patient Records regulations: The Federal rules restrict any use of the information to criminally investigate or prosecute any alcohol or drug abuse patient.[facility] HospitalIn the event this information is protected by the Federal Confidentiality of Alcohol and Drug Abuse Patient Records regulations: The Federal rules restrict any use of the information to criminally investigate or prosecute any alcohol or drug abuse patient.[facility] HospitalIn the event this information is protected by the Federal Confidentiality of Alcohol and Drug Abuse Patient Records regulations: The Federal rules restrict any use of the information to criminally investigate or prosecute any alcohol or drug abuse patient.[facility] HospitalIn the event this information is protected by the Federal Confidentiality of Alcohol and Drug Abuse Patient Records regulations: The Federal rules restrict any use of the information to criminally investigate or prosecute any alcohol or drug abuse patient.[facility] HospitalIn the event this information is protected by the Federal Confidentiality of Alcohol and Drug Abuse Patient Records regulations: The Federal rules restrict any use of the information to criminally investigate or prosecute any alcohol or drug abuse patient.[facility] HospitalIn the event this information is protected by the Federal Confidentiality of Alcohol and Drug Abuse Patient Records regulations: The Federal rules restrict any use of the information to criminally investigate or prosecute any alcohol or drug abuse patient.[facility] HospitalIn the event this information is protected by the Federal Confidentiality of Alcohol and Drug Abuse Patient Records regulations: The Federal rules restrict any use of the information to criminally investigate or prosecute any alcohol or drug abuse patient.[facility] HospitalIn the event this information is protected by the Federal Confidentiality of Alcohol and Drug Abuse Patient Records regulations: The Federal rules restrict any use of the information to criminally investigate or prosecute any alcohol or drug abuse patient.[facility] HospitalIn the event this information is protected by the Federal Confidentiality of Alcohol and Drug Abuse Patient Records regulations: The Federal rules restrict any use of the information to criminally investigate or prosecute any alcohol or drug abuse patient.[facility] HospitalIn the event this information is protected by the Federal Confidentiality of Alcohol and Drug Abuse Patient Records regulations: The Federal rules restrict any use of the information to criminally investigate or prosecute any alcohol or drug abuse patient.[facility] HospitalIn the event this information is protected by the Federal Confidentiality of Alcohol and Drug Abuse Patient Records regulations: The Federal rules restrict any use of the information to criminally investigate or prosecute any alcohol or drug abuse patient.[facility] HospitalIn the event this information is protected by the Federal Confidentiality of Alcohol and Drug Abuse Patient Records regulations: The Federal rules restrict any use of the information to criminally investigate or prosecute any alcohol or drug abuse patient.[facility] HospitalIn the event this information is protected by the Federal Confidentiality of Alcohol and Drug Abuse Patient Records regulations: The Federal rules restrict any use of the information to criminally investigate or prosecute any alcohol or drug abuse patient.[facility] HospitalIn the event this information is protected by the Federal Confidentiality of Alcohol and Drug Abuse Patient Records regulations: The Federal rules restrict any use of the information to criminally investigate or prosecute any alcohol or drug abuse patient.[facility] HospitalIn the event this information is protected by the Federal Confidentiality of Alcohol and Drug Abuse Patient Records regulations: The Federal rules restrict any use of the information to criminally investigate or prosecute any alcohol or drug abuse patient.[facility] HospitalIn the event this information is protected by the Federal Confidentiality of Alcohol and Drug Abuse Patient Records regulations: The Federal rules restrict any use of the information to criminally investigate or prosecute any alcohol or drug abuse patient.[facility] HospitalIn the event this information is protected by the Federal Confidentiality of Alcohol and Drug Abuse Patient Records regulations: The Federal rules restrict any use of the information to criminally investigate or prosecute any alcohol or drug abuse patient.[facility] HospitalIn the event this information is protected by the Federal Confidentiality of Alcohol and Drug Abuse Patient Records regulations: The Federal rules restrict any use of the information to criminally investigate or prosecute any alcohol or drug abuse patient.[facility] HospitalIn the event this information is protected by the Federal Confidentiality of Alcohol and Drug Abuse Patient Records regulations: The Federal rules restrict any use of the information to criminally investigate or prosecute any alcohol or drug abuse patient.[facility] HospitalIn the event this information is protected by the Federal Confidentiality of Alcohol and Drug Abuse Patient Records regulations: The Federal rules restrict any use of the information to criminally investigate or prosecute any alcohol or drug abuse patient.[facility] HospitalIn the event this information is protected by the Federal Confidentiality of Alcohol and Drug Abuse Patient Records regulations: The Federal rules restrict any use of the information to criminally investigate or prosecute any alcohol or drug abuse patient.[facility] HospitalIn the event this information is protected by the Federal Confidentiality of Alcohol and Drug Abuse Patient Records regulations: The Federal rules restrict any use of the information to criminally investigate or prosecute any alcohol or drug abuse patient.[facility] HospitalIn the event this information is protected by the Federal Confidentiality of Alcohol and Drug Abuse Patient Records regulations: The Federal rules restrict any use of the information to criminally investigate or prosecute any alcohol or drug abuse patient.[facility] HospitalIn the event this information is protected by the Federal Confidentiality of Alcohol and Drug Abuse Patient Records regulations: The Federal rules restrict any use of the information to criminally investigate or prosecute any alcohol or drug abuse patient.[facility] HospitalIn the event this information is protected by the Federal Confidentiality of Alcohol and Drug Abuse Patient Records regulations: The Federal rules restrict any use of the information to criminally investigate or prosecute any alcohol or drug abuse patient.[facility] HospitalIn the event this information is protected by the Federal Confidentiality of Alcohol and Drug Abuse Patient Records regulations: The Federal rules restrict any use of the information to criminally investigate or prosecute any alcohol or drug abuse patient.[facility] HospitalIn the event this information is protected by the Federal Confidentiality of Alcohol and Drug Abuse Patient Records regulations: The Federal rules restrict any use of the information to criminally investigate or prosecute any alcohol or drug abuse patient.[facility] HospitalIn the event this information is protected by the Federal Confidentiality of Alcohol and Drug Abuse Patient Records regulations: The Federal rules restrict any use of the information to criminally investigate or prosecute any alcohol or drug abuse patient.[facility] HospitalIn the event this information is protected by the Federal Confidentiality of Alcohol and Drug Abuse Patient Records regulations: The Federal rules restrict any use of the information to criminally investigate or prosecute any alcohol or drug abuse patient.[facility] HospitalIn the event this information is protected by the Federal Confidentiality of Alcohol and Drug Abuse Patient Records regulations: The Federal rules restrict any use of the information to criminally investigate or prosecute any alcohol or drug abuse patient.[facility] HospitalIn the event this information is protected by the Federal Confidentiality of Alcohol and Drug Abuse Patient Records regulations: The Federal rules restrict any use of the information to criminally investigate or prosecute any alcohol or drug abuse patient.[facility] HospitalIn the event this information is protected by the Federal Confidentiality of Alcohol and Drug Abuse Patient Records regulations: The Federal rules restrict any use of the information to criminally investigate or prosecute any alcohol or drug abuse patient.[facility] HospitalIn the event this information is protected by the Federal Confidentiality of Alcohol and Drug Abuse Patient Records regulations: The Federal rules restrict any use of the information to criminally investigate or prosecute any alcohol or drug abuse patient.[facility] HospitalIn the event this information is protected by the Federal Confidentiality of Alcohol and Drug Abuse Patient Records regulations: The Federal rules restrict any use of the information to criminally investigate or prosecute any alcohol or drug abuse patient.[facility] HospitalIn the event this information is protected by the Federal Confidentiality of Alcohol and Drug Abuse Patient Records regulations: The Federal rules restrict any use of the information to criminally investigate or prosecute any alcohol or drug abuse patient.[facility] HospitalIn the event this information is protected by the Federal Confidentiality of Alcohol and Drug Abuse Patient Records regulations: The Federal rules restrict any use of the information to criminally investigate or prosecute any alcohol or drug abuse patient.[facility] HospitalIn the event this information is protected by the Federal Confidentiality of Alcohol and Drug Abuse Patient Records regulations: The Federal rules restrict any use of the information to criminally investigate or prosecute any alcohol or drug abuse patient.[facility] HospitalIn the event this information is protected by the Federal Confidentiality of Alcohol and Drug Abuse Patient Records regulations: The Federal rules restrict any use of the information to criminally investigate or prosecute any alcohol or drug abuse patient.[facility] HospitalIn the event this information is protected by the Federal Confidentiality of Alcohol and Drug Abuse Patient Records regulations: The Federal rules restrict any use of the information to criminally investigate or prosecute any alcohol or drug abuse patient.[facility] HospitalIn the event this information is protected by the Federal Confidentiality of Alcohol and Drug Abuse Patient Records regulations: The Federal rules restrict any use of the information to criminally investigate or prosecute any alcohol or drug abuse patient.[facility] HospitalIn the event this information is protected by the Federal Confidentiality of Alcohol and Drug Abuse Patient Records regulations: The Federal rules restrict any use of the information to criminally investigate or prosecute any alcohol or drug abuse patient.[facility] HospitalIn the event this information is protected by the Federal Confidentiality of Alcohol and Drug Abuse Patient Records regulations: The Federal rules restrict any use of the information to criminally investigate or prosecute any alcohol or drug abuse patient.[facility] HospitalIn the event this information is protected by the Federal Confidentiality of Alcohol and Drug Abuse Patient Records regulations: The Federal rules restrict any use of the information to criminally investigate or prosecute any alcohol or drug abuse patient.[facility] HospitalIn the event this information is protected by the Federal Confidentiality of Alcohol and Drug Abuse Patient Records regulations: The Federal rules restrict any use of the information to criminally investigate or prosecute any alcohol or drug abuse patient.[facility] HospitalIn the event this information is protected by the Federal Confidentiality of Alcohol and Drug Abuse Patient Records regulations: The Federal rules restrict any use of the information to criminally investigate or prosecute any alcohol or drug abuse patient.[facility] HospitalIn the event this information is protected by the Federal Confidentiality of Alcohol and Drug Abuse Patient Records regulations: The Federal rules restrict any use of the information to criminally investigate or prosecute any alcohol or drug abuse patient.[facility] HospitalIn the event this information is protected by the Federal Confidentiality of Alcohol and Drug Abuse Patient Records regulations: The Federal rules restrict any use of the information to criminally investigate or prosecute any alcohol or drug abuse patient.[facility] HospitalIn the event this information is protected by the Federal Confidentiality of Alcohol and Drug Abuse Patient Records regulations: The Federal rules restrict any use of the information to criminally investigate or prosecute any alcohol or drug abuse patient.[facility] HospitalIn the event this information is protected by the Federal Confidentiality of Alcohol and Drug Abuse Patient Records regulations: The Federal rules restrict any use of the information to criminally investigate or prosecute any alcohol or drug abuse patient.[facility] HospitalIn the event this information is protected by the Federal Confidentiality of Alcohol and Drug Abuse Patient Records regulations: The Federal rules restrict any use of the information to criminally investigate or prosecute any alcohol or drug abuse patient.[facility] HospitalIn the event this information is protected by the Federal Confidentiality of Alcohol and Drug Abuse Patient Records regulations: The Federal rules restrict any use of the information to criminally investigate or prosecute any alcohol or drug abuse patient.[facility] HospitalIn the event this information is protected by the Federal Confidentiality of Alcohol and Drug Abuse Patient Records regulations: The Federal rules restrict any use of the information to criminally investigate or prosecute any alcohol or drug abuse patient.[facility] HospitalIn the event this information is protected by the Federal Confidentiality of Alcohol and Drug Abuse Patient Records regulations: The Federal rules restrict any use of the information to criminally investigate or prosecute any alcohol or drug abuse patient.[facility] HospitalIn the event this information is protected by the Federal Confidentiality of Alcohol and Drug Abuse Patient Records regulations: The Federal rules restrict any use of the information to criminally investigate or prosecute any alcohol or drug abuse patient.[facility] HospitalIn the event this information is protected by the Federal Confidentiality of Alcohol and Drug Abuse Patient Records regulations: The Federal rules restrict any use of the information to criminally investigate or prosecute any alcohol or drug abuse patient.[facility] HospitalIn the event this information is protected by the Federal Confidentiality of Alcohol and Drug Abuse Patient Records regulations: The Federal rules restrict any use of the information to criminally investigate or prosecute any alcohol or drug abuse patient.[facility] HospitalIn the event this information is protected by the Federal Confidentiality of Alcohol and Drug Abuse Patient Records regulations: The Federal rules restrict any use of the information to criminally investigate or prosecute any alcohol or drug abuse patient.[facility] HospitalIn the event this information is protected by the Federal Confidentiality of Alcohol and Drug Abuse Patient Records regulations: The Federal rules restrict any use of the information to criminally investigate or prosecute any alcohol or drug abuse patient.[facility] Reason for Visit (unrecogniz ed section and content) Reason Comments Physical Therapy Specialty Diagnoses / Procedures Referred By Contac t Referred To Contact Physical Therapy / PHYSICAL THERAPY Diagnoses Constipation, unspecified constipation type [K59.00] Procedures EST RS PT PELVIC FLOOR Rosie Galloway PA-C [address] [place] [address] Phone: tel: fax: [place] [address] [place] [id number] Phone: tel: Referral ID Status Reason Start Date Expiration Date V isits Requested Visits Authorized [id number] Authorized 12/20/2024 11/16/2025 20 20 Reason Comments PT Progress Note Specialty Diagnoses / Procedures Referred By Contac t Referred To Contact Physical Therapy / PHYSICAL THERAPY Diagnoses Constipation, unspecified constipation type [K59.00] Procedures EST RS PT PELVIC FLOOR Rosie Galloway PA-C [address] [place] [address] [place] [address] [place] [phone] Specialty Diagnoses / Procedures Referred By Contac t Referred To Contact [facility] Diagnoses Constipation, unspecified constipation type Procedures CONSULT TO PHYSICAL THERAPY PHYSICAL THERAPY EVALUATION HIGH COMPLEX 45 MINS Rosie Galloway PA-C [address] [place] [id number] [facility] [place] [address] [place] [phone] Referral ID Status Reason Start Date Expiration Date V isits Requested Visits Authorized [id number] Authorized 03/04/2024 11/16/2024 45 45 Reason Onset Date Comments Refill Request 06/04/2022 Reason Comments Refill Request Reason Onset Date Comments Refill Request Refill Request 07/11/2023 Reason Comments Orders Reason Comments Yearly Exam Reason Comments Patient Question Reason Comments New Patient Reason Comments New Patient Consult intestinal m alabsorption Reason Comments assistance with Sitz marker study Reason Comments Symptoms Reason Comments Manometry Specialty Diagnoses / Procedures Referred By Contac t Referred To Contact [facility] / [facility] Diagnoses Chronic constipation Bloating Decreased rectal sphincter tone Procedures [facility] ANORECTAL MANOMETRY ANORECTAL MANOMETRY Estrellita Ferreira MD [facility] [address] [place] [address] Rosie Galloway PA-C [address] [place] [address] Referral ID Status Reason Start Date Expiration Date V isits Requested Visits Authorized [id number] Closed Auto-Generat ed Referral Patient Cleared - Admin/Chairm an/Director advise to proceed or did not respond 02/23/2024 11/16/2024 1 1 Reason Comments Constipation Reason Comments 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 Reason Comments Gas Constipation Reason Comments PT Eval Reason Comments Established Patient Reason Comments Established Patient Follow up Reason Comments Established Patient Blood in stool Reason Comments Well Woman Reason Comments proctitis Reason Comments Vaginal Problem Reason Comments proctitis Results Reason Comments Insurance Authorization Prior auth delay Reason Comments Pelvic Pain Specialty Diagnoses / Procedures Referred By Hetal de leon Referred To Contact Diagnoses Vulvodynia Procedures CONSULT TO [facility] PELVIC PAIN OFFICE/OUTPATIENT [facility] MDM 60 MINUTES Kathie Ferreira MD [address] [place] [address] Phone: tel: fax: Referral ID Status Reason Start Date Expiration Date V isits Requested Visits Authorized [id number] Closed PCP Requested Referral Auto-Generated Referral 11/12/2024 02/10/2025 1 1 Reason Comments Appointment Reason Comments Follow Up Specialty Diagnoses / Procedures Referred By Hetal de leon Referred To Contact Women's Health Specialist / GYNECOLOGY Diagnoses Other specified disorders of muscle follow -up Procedures OFFICE/OUTPATIENT ESTABLISHED MOD MDM 30 MIN EST WHI PATIENT Self Rosie Sterling MD [address] [place] [address] Phone: tel: fax: Referral ID Status Reason Start Date Expiration Date V isits Requested Visits Authorized [id number] Authorized 01/12/2025 11/16/2025 99 99 Reason Comments Constipation Gas Reason Comments Follow Up Botox Injection Specialty Diagnoses / Procedures Referred By Hetal de leon Referred To Contact Women's Health Specialist / GYNECOLOGY Diagnoses Other specified disorders of muscle put her on my schedule in person for botox (already approved to oct 2025) on Friday04/26/2025 at [address] Sterling Procedures BOTULINUM TOXIN A PER 1 UNIT BOTOX INJECTION Rosie Sterling MD [address] [place] [address] Phone: tel: fax: Rosie Sterling MD [address] [place] [address] Phone: tel: fax: Referral ID Status Reason Start Date Expiration Date V isits Requested Visits Authorized [id number] Authorized 04/26/2025 11/16/2025 99 99 Reason Comments Gas Reason Comments Question Care Teams (unrecognized sec tion and content) Industrial Cleaner Relationship Specialty Start Date End Date Sumanth Varela MD [address] [place] [id number] PCP - General 04/03/04 Industrial Cleaner Relationship Specialty Start Date End Date Sumanth Varela MD [address] [place] [address] [phone] PCP - General 04/03/04 Industrial Cleaner Relationship Specialty Start Date End Date Sumanth Varela MD [address] [place], [place] [address]Tashia [place], [place] [phone] PCP - General 04/03/04 Team Status: Active Member Role Status Dates Dr. Sumanth Krause MD Family Provider Active Dr. Sumanth Krause MD Primary Care Provider Active Team Status: Inactive Member Role Status Dates Dr. Sumanth Krause MD Primary Care Provider, Referr ing Provider Active Dr. Ovi Rivera DO Attending Provider Active Team Status: Inactive Member Role Status Dates Dr. Mook Hall MD Attending Provider, Referring Prov ider Active Dr. Sumanth Krause MD Primary Care Provider Active Team Status: Inactive Member Role Status Dates Dr. Sumanth Krause MD Primary Care Provider Active Dr. Mook Hall MD Attending Provider Active Team Status: Inactive Member Role Status Dates Dr. Sumanth Krause MD Primary Care Provider Active Dr. Ovi Rivera DO Attending Provider Active Team Status: Inactive Member Role Status Dates Dr. Sumanth Krause MD Primary Care Provider Active Radha Scott 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, 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 Attending Provider Active Industrial Cleaner Relationship Specialty Start Date End Date Sumanth Varela MD [address] [facility] [place], [place] [phone] PCP - General 04/03/04 Team Status: Inactive Member Role Status Dates Dr. Sumanth Krause MD Primary Care Provider, Referr ing Provider Active Jenelle Cyr 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, 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 Attending Provider Active Team Status: Inactive Member Role Status Dates Dr. Sumanth Krause MD Primary Care Provider Active Dr. Patricio Muñoz DO Emergency Provider Active Team Status: Inactive Member Role Status Dates Dr. Sumanth Krause MD Primary Care Provider Active Dr. Patricio Muñoz DO Attending Provider, Emergency P rovider Active Team Status: Inactive Member Role Status Dates Dr. Sumanth Krause MD Primary Care Provider Active Dr. Margarita Franco MD Attending Provider, Referring P rovider Active Team Status: Inactive Member Role Status Dates Dr. Sumanth Krause MD Primary Care Provider Active Dr. Shamir Sepulveda MD Emergency Provider Active Industrial Cleaner Relationship Specialty Start Date End Date Sumanth Varela MD [address] [facility] [place] [address] PCP - General 04/03/04 Industrial Cleaner Relationship Specialty Start Date End Date Sumanth Varela MD [address] [place], [place] [id number] PCP - General 04/03/04 Team Status: Inactive Member Role Status Dates Dr. Sumanth Krause MD Primary Care Provider Active Dr. Shamir Sepulveda MD Attending Provider, Emergency Pr ovider Active Team Status: Inactive Member Role Status Dates Dr. Sumanth Krause MD Primary Care Pr ovider, Attending Provider, Referring Provider Active Team Status: Inactive Member Role Status Dates Dr. Sumanth Krause MD Primary Care Provider, Attend ing Provider Active Industrial Cleaner Relationship Specialty Start Date End Date Sumanth Varela MD [address] [place], [place] [id number] PCP - General 04/03/04 Team Status: Active Member Role Status Dates Dr. Sumanth Krause MD Primary Care Provider Active Dr. Mook Acosta MD Attending Provider Active Team Status: Inactive Member Role Status Dates Dr. Sumanth Krause MD Primary Care Pr ovider, Attending Provider, Referring Provider Active Dr. Margarita Franco MD Other Provider Active Industrial Cleaner Relationship Specialty Start Date End Date Sumanth Varela MD [address] [place] [address] PCP - General 04/03/04 Industrial Cleaner Relationship Specialty Start Date End Date Sumanth Varela MD [address] [place], [place] [id number] PCP - General 04/03/04 Team Status: Inactive Member Role Status Dates Dr. Sumanth Krause MD Primary Care Provider, Referr ing Provider Active Dr. Hussain Bhatia MD Attending Provider Active Team Status: Inactive Member Role Status Dates Dr. Sumanth Krause MD Primary Care Provider Active Dr. America Pettit MD Attending Provider, Referring P rovider Active Team Status: Inactive Member Role Status Dates Dr. Sumanth Krause MD Primary Care Provider Active Dr. Harpal Pollack MD Attending Provider, Emergency Provider Active Team Status: Inactive Member Role Status Dates Dr. Sumanth Krause MD Primary Care Provider Active Dr. Hussain Bhatia MD Attending Provider, Referring P rovider Active Industrial Cleaner Relationship Specialty Start Date End Date Sumanth Varela MD [address] [facility] [place] [address] PCP - General 04/03/04 Industrial Cleaner Relationship Specialty Start Date End Date Sumanth Varela MD [address] [place] [address] PCP - General 04/03/04 Industrial Cleaner Relationship Specialty Start Date End Date Sumanth Varela MD [address] [place] [address] PCP - General 04/03/04 Industrial Cleaner Relationship Specialty Start Date End Date Sumanth Varela MD [address] [place] [address] PCP - General 04/03/04 Industrial Cleaner Relationship Specialty Start Date End Date Sumanth Varela MD [address] [place] [address] PCP - General 04/03/04 Industrial Cleaner Relationship Specialty Start Date End Date Sumanth Varela MD [address] [place] [address] PCP - General 04/03/04 Industrial Cleaner Relationship Specialty Start Date End Date Sumanth Varela MD [address] [place] [address] PCP - General 04/03/04 Industrial Cleaner Relationship Specialty Start Date End Date Sumanth Varela MD [address] [place] [address] PCP - General 04/03/04 Industrial Cleaner Relationship Specialty Start Date End Date Sumanth Varela MD [address] [place] [address] PCP - General 04/03/04 Industrial Cleaner Relationship Specialty Start Date End Date Sumanht Varela MD [address] [place] [address] PCP - General 04/03/04 Industrial Cleaner Relationship Specialty Start Date End Date Sumanth Varela MD [address] [place] [address] PCP - General 04/03/04 Industrial Cleaner Relationship Specialty Start Date End Date Sumanth Varela MD [address] [place] [address] PCP - General 04/03/04 Industrial Cleaner Relationship Specialty Start Date End Date Sumanth Krause MD [address] [place] [address] PCP - General Family Medicine 03/31/24 Industrial Cleaner Relationship Specialty Start Date End Date Sumanth Krause MD [address] [place] [address] PCP - General Family Medicine 03/31/24 Industrial Cleaner Relationship Specialty Start Date End Date Sumanth Karuse MD [address] [place] [address] PCP - General Family Medicine 03/31/24 Industrial Cleaner Relationship Specialty Start Date End Date Sumanth Krause MD [address] [place] [address] PCP - General Family Medicine 03/31/24 Industrial Cleaner Relationship Specialty Start Date End Date Sumanth Krause MD [address] [place] [address] PCP - General Family Medicine 03/31/24 Industrial Cleaner Relationship Specialty Start Date End Date Sumanth Krause MD [address] [place] [address] PCP - General Family Medicine 03/31/24 Industrial Cleaner Relationship Specialty Start Date End Date Sumanth Krause MD [address] [place] [address] PCP - General Family Medicine 03/31/24 Industrial Cleaner Relationship Specialty Start Date End Date Sumanth Krause MD [address] [place] [address] PCP - General Family Medicine 03/31/24 Industrial Cleaner Relationship Specialty Start Date End Date Sumanth Krause MD [address] [place] [address] PCP - General Family Medicine 03/31/24 Industrial Cleaner Relationship Specialty Start Date End Date Sumanth Krause MD [address] [place] [address] PCP - General Family Medicine 03/31/24 Industrial Cleaner Relationship Specialty Start Date End Date Sumanth Krause MD [address] [place] [address] PCP - General Family Medicine 03/31/24 Industrial Cleaner Relationship Specialty Start Date End Date Sumanth Krause MD [address] [place] [address] PCP - General Family Medicine 03/31/24 Industrial Cleaner Relationship Specialty Start Date End Date Sumanth Krause MD [address] [place] [address] PCP - General Family Medicine 03/31/24 Industrial Cleaner Relationship Specialty Start Date End Date Sumanth Krause MD [address] [place] [address] PCP - General Family Medicine 03/31/24 Industrial Cleaner Relationship Specialty Start Date End Date Sumanth Krause MD [address] [place] [address] PCP - General Family Medicine 03/31/24 Industrial Cleaner Relationship Specialty Start Date End Date Sumanth Krause MD [address] [place] [address] PCP - General Family Medicine 03/31/24 Industrial Cleaner Relationship Specialty Start Date End Date Sumanth Krause MD [address] [place] [address] PCP - General Family Medicine 03/31/24 Industrial Cleaner Relationship Specialty Start Date End Date Sumanth Krause MD [address] [place] [address] PCP - General Family Medicine 03/31/24 Industrial Cleaner Relationship Specialty Start Date End Date Sumanth Krause MD [address] [place] [address] PCP - General Family Medicine 03/31/24 Industrial Cleaner Relationship Specialty Start Date End Date Sumanth Krause MD [address] [place] [address] PCP - General Family Medicine 03/31/24 Industrial Cleaner Relationship Specialty Start Date End Date Sumanth Krause MD [address] [place] [address] PCP - General Family Medicine 03/31/24 Team Status: Active Member Role Status Dates Dr. Sumanth Krause MD Primary Care Provider, Referr ing Provider Active Dr. Mook Acosta MD Attending Provider Active Team Status: Active Member Role Status Dates Dr. Sumanth Krause MD Primary Care Provider, Attend ing Provider Active Team Status: Active Member Role Status Dates Dr. Sumanth Krause MD Primary Care Provider Active Dr. America Pettit MD Attending Provider, Referring P luca Active Team Status: Inactive Member Role Status Dates Dr. Sumanth Krause MD Primary Care Provider Active Dr. Harpal Pollack MD Emergency Provider Active Industrial Cleaner Relationship Specialty Start Date End Date Sumanth Krause MD [address] [place] [address] PCP - General Family Medicine 03/31/24 Industrial Cleaner Relationship Specialty Start Date End Date Sumanth Krause MD [address] [place] [address] PCP - General Family Medicine 03/31/24 Industrial Cleaner Relationship Specialty Start Date End Date Sumanth Krause MD [address] [place] [address] PCP - General Family Medicine 03/31/24 Industrial Cleaner Relationship Specialty Start Date End Date Sumanth Krause MD [address] [place] [address] PCP - General Family Medicine 03/31/24 Industrial Cleaner Relationship Specialty Start Date End Date Sumanth Krause MD [address] [place] [address] PCP - General Family Medicine 03/31/24 Industrial Cleaner Relationship Specialty Start Date End Date Sumanth Krause MD [address] [place] [address] PCP - General Family Medicine 03/31/24 Industrial Cleaner Relationship Specialty Start Date End Date Sumanth Krause MD [address] [place] [address] PCP - General Family Medicine 03/31/24 Industrial Cleaner Relationship Specialty Start Date End Date Sumanth Krause MD [address] [place] [address] PCP - General Family Medicine 03/31/24 Industrial Cleaner Relationship Specialty Start Date End Date Sumanth Krause MD [address] [place] [address] PCP - General Family Medicine 03/31/24 Industrial Cleaner Relationship Specialty Start Date End Date Sumanth Krause MD [address] [place] [address] PCP - General Family Medicine 03/31/24 Team Status: Active Member Role Status Dates Dr. Sumanth Krause MD Primary Care Provider Active Team Status: Inactive Member Role Status Dates Dr. Sumanth Krause MD Primary Care Provider Active Start: November 18, 2024 End: November 18, 2024 Dr. Sumanth Krause MD Referring Provider Active Start: November 18, 2024 End: November 18, 2024 Sumanth Mendiola 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 Attending Provider Active S tart: November 18, 2024 End: November 18, 2024 Team Status: Inactive Member Role Status Dates Dr. Sumanth Krause MD Primary Care Provider Active Start: December 14, 2024 End: December 14, 2024 Sumanth Mendiola 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, 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 Attending Provider Active S tart: December 14, 2024 End: December 14, 2024 Sumanth H Roof 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, 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 Referring Provider Active S tart: December 14, 2024 End: December 14, 2024 Team Status: Inactive Member Role Status Dates Dr. Sumanth Krause MD Primary Care Provider Active Start: December 22, 2024 End: December 22, 2024 Dr. Carolyn Bower DO Attending Provider Active Start: December 22, 2024 End: December 22, 2024 Dr. Carolyn Bower DO Emergency Provider Active Start: December 22, 2024 End: December 22, 2024 Team Status: Inactive Member Role Status Dates Dr. Sumanth Krause MD Primary Care Provider Active Start: January 08, 2025 End: January 08, 2025 Dr. Sumanth Krause MD Referring Provider Active Start: January 08, 2025 End: January 08, 2025 Tierney Valero NP-C Attending Provider Active Start: January 08, 2025 End: January 08, 2025 Team Status: Inactive Member Role Status Dates Dr. Sumanth Krause MD Primary Care Provider Active Start: March 02, 2025 End: March 02, 2025 Dr. Sumanth Krause MD Attending Provider Active Start: March 02, 2025 End: March 02, 2025 Dr. Sumanth Krause MD Referring Provider Active Start: March 02, 2025 End: March 02, 2025 Industrial Cleaner Relationship Specialty Start Date End Date uSmanth Krause MD [address] [facility] [address] [place], [place] [id number] PCP - General Family Medicine 03/31/24 Industrial Cleaner Relationship Specialty Start Date End Date Sumanth Krause MD [address] [facility] [address] [place], [place] [id number] PCP - General Family Medicine 03/31/24 Team Status: Inactive Member Role Status Dates Dr. Sumanth Krause MD Primary Care Provider Active Start: April 06, 2025 End: April 06, 2025 Dr. Sumanth Krause MD Attending Provider Active Start: April 06, 2025 End: April 06, 2025 Dr. Sumanth Krause MD Referring Provider Active Start: April 06, 2025 End: April 06, 2025 Team Status: Inactive Member Role Status Dates Dr. Sumanth Krause MD Primary Care Provider Active Start: April 14, 2025 End: April 14, 2025 Delores JIM, PA Attending Provider Active Start: April 14, 2025 End: April 14, 2025 Delores JIM, PA Referring Provider Active Start: April 14, 2025 End: April 14, 2025 Team Status: Active Member Role Status Dates Dr. Sumanth Krause MD Primary Care Provider Active Start: April 14, 2025 Dr. Nelda Colon MD Attending Provider Active Start: April 14, 2025 Industrial Cleaner Relationship Specialty Start Date End Date Sumanth Krause MD [address] [place] [address] PCP - General Family Medicine 03/31/24 Industrial Cleaner Relationship Specialty Start Date End Date Sumanth Cameron Jr., MD [address] [facility] [address] [place] [address] PCP - General Psychiatry 05/13/25 Industrial Cleaner Relationship Specialty Start Date End Date Sumanth Krause MD [address] [place] [address] PCP - General Family Medicine 03/31/24 Industrial Cleaner Relationship Specialty Start Date End Date Sumanth Krause MD [address] [place] [address] PCP - General Family Medicine 03/31/24 Industrial Cleaner Relationship Specialty Start Date End Date Sumanth Krause MD [address] [place] [address] PCP - General Family Medicine 03/31/24 Inactive Administered Medications - up to 3 most recent administrations Administered Medications (un recognized section and content) Medication Order MAR Action Action Date Dose Rate Site benzocaine 20% (TOPEX) TOPICAL, X (OR/PROCEDURE) PRN, Starting on Fri02/20/24 at 1615, Until Fri02/20/24 at 1615, Intraprocedure Given 02/20/2024 4:15 PM EDT 5 Sprays fentaNYL 50 mcg/mL injection (SUBLIMAZE) INTRAVENOUS, X (OR/PROCEDURE) PRN, Starting on Fri02/20/24 at 1618, Until Fri02/20/24 at 1642, Intraprocedure Given 02/20/2024 4:42 PM EDT 25 mcg Given 02/20/2024 4:30 PM EDT 25 mcg Given 02/20/2024 4:20 PM EDT 25 mcg midazolam (PF) injection (VERSED) INTRAVENOUS, X (OR/PROCEDURE) PRN, Starting on Fri02/20/24 at 1618, Until Fri02/20/24 at 1642, Intraprocedure Given 02/20/2024 4:42 PM EDT 1 mg Given 02/20/2024 4:30 PM EDT 1 mg Given 02/20/2024 4:20 PM EDT 1 mg NaCl 0.9% 500 mL iv bolus 500 mL, INTRAVENOUS, at 999 mL/hr, Administer over 0.5 Hours, ONCE, 1 dose, On Fri02/20/24 at 1730 New Bag/Syringe/Bottle 02/20/2024 5:25 PM EDT 500 mL 999 mL/hr ondansetron (PF) injection (ZOFRAN) INTRAVENOUS, X (OR/PROCEDURE) PRN, Starting on Fri02/20/24 at 1618, Until Fri02/20/24 at 1653, Intraprocedure Given 02/20/2024 4:53 PM EDT 4 mg Given 02/20/2024 4:18 PM EDT 4 mg FOR RECORDS PERTAINING TO PATIENTS WHO ARE [...] BE BASED ON THE PRIMARY CLINICAL RECORDS. [facility]. provides no warranty or guarantee of the accuracy or completeness of information in this document.
--- NOTE | 2025-08-04 10:55 | STRESSREP ---
Stress Test Report Exercise myocardial perfusion stress test. 55-year-old lady with a history of chest pain. Stress protocol: Resting EKG demonstrates normal sinus rhythm with a rate of 71 bpm resting blood pressure is 112/70 mmHg. The patient exercised according to the regular Herbie protocol for a total duration of 6 minutes attaining a maximum heart rate of 141 bpm which was 85% of maximum predicted heart rate; the maximum workload was 7 metabolic equivalents. At rest there were no ST or T wave changes noted to suggest ischemia and at peak exercise upsloping ST changes only were noted which did not meet the criteria for ischemia. No clinical angina was noted the test was terminated due to the target heart rate being achieved/fatigue. The peak blood pressure was 210/106 mmHg. Rate-pressure product was 20,500. Hypertensive response to exercise was noted and the patient did experience shortness of breath at least moderate severity at peak exercise Myocardial perfusion protocol. 12 mCi of technetium 99m sestamibi was injected at rest. The patient exercised according to regular Herbie protocol for total duration of 6 minutes and at peak exercise 36 mCi of technetium 99m sestamibi was injected stress images were obtained stress and rest images were reconstructed in comparing the short axis vertical long and horizontal long axis. Gated images were also obtained. Perfusion SPECT analysis: Review of the stress images demonstrate normal uptake of tracer noted in all areas of the myocardium. The resting images similarly demonstrate normal uptake of tracer noted in all areas of the myocardium. No areas of reversibility are noted to suggest ischemia no previous infarct was noted. Gated SPECT analysis: The gated ejection fraction is 79%. Conclusion: Normal exercise myocardial perfusion stress test at a moderate workload Hypertensive response to exercise.
== END | disposition home or self-care (01) ==
LOC: NM 06:18
PROVIDERS: PCP Family Medicine; Referring Provider Family Medicine; Visit Provider Family Medicine
DX: R07.9 Chest pain, unspecified (principal)
CPT/HCPCS: 78452; 93017; A9500; A4216